=== PATIENT | female | born 1970 | race Caucasian/White ===

== ENCOUNTER 2019-11-23 08:32 | Inpatient (IN) | payer OTHER, MEDICAID, SELFPAY ==
[2019-11-23] VITALS (27 sets, daily range): BP systolic 126–169; BP diastolic 58–90; PULSE 72–84; RESP 11–23; TEMP 36.6–37.2; O2SAT 99–100
--- NOTE | ~2019-11-23 | XR_ITS ---
EXAMINATION: XR chest 2V EXAM DATE: 11/23/2019 08:56 INDICATION: Sternotomy. TECHNIQUE: Frontal and lateral projections of the chest obtained and reviewed. Comparison is made to prior examination from 02/06/2019. FINDINGS: Sternotomy wires are present without findings to suggest sternal dehiscence. Cardiomediast inal silhouette is normal. Aortic valve replacement. There is a dual lead pacemaker/AICD seen with le ads projecting over the expected locations of the right atrial appendage and right ventricle. There is left basilar predominant reticulonodular airspace disease suspected, appearance most consist ent with bronchopneumonia but please clinically correlate. This was not present on chest x-ray from . Possible small left pleural effusion. No pneumothorax. There is moderate thoracolumbar scol iosis again noted. Bilateral breast implants. IMPRESSION: 1. Multifocal left basilar reticulonodular airspace disease, suspicious for bronchopneumonia, could be acute or chronic process. Please clinically correlate. 2. Possible small pleural effusion. Reviewed, dictated and finalized at location A. CUTTER IMPRESSION: 1. Multifocal left basilar reticulonodular airspace disease, suspicious for br onchopneumonia, could be acute or chronic process. Please clinically correlate. 2. Possible small pleural effusion.
--- NOTE | ~2019-11-23 | US_ITS ---
EXAMINATION: US venous doppler LE EXAM DATE: 11/23/2019 15:40 INDICATION: Shortness of breath. Pulmonary embolism. TECHNIQUE: Multiple grayscale, color flow and Doppler images of the lower extremity deep venous syste ms bilaterally were obtained and reviewed. Comparison is made to prior examination from 03/20/2015. FINDINGS: Right side: The right common femoral, femoral and profunda veins demonstrate normal color flow, respi ratory variation, augmentation and compressibility. Compressibility, color flow confirmed within the right popliteal, posterior tibial, peroneal, and greater saphenous veins. Left side: The left common femoral, femoral and profunda veins demonstrate normal color flow, respira tory variation, augmentation and compressibility. Compressibility, color flow confirmed within the l eft popliteal, posterior tibial, peroneal, and greater saphenous veins. IMPRESSION: 1. No lower extremity deep venous thrombosis bilaterally. Reviewed, dictated and finalized at location A. RATION PLANT MECHANIC
--- NOTE | ~2019-11-23 | NM_ITS ---
EXAMINATION: NM lung vent and perfusion EXAM DATE: 11/23/2019 13:55 INDICATION: Dyspnea. Chest pain. TECHNIQUE: Frontal and lateral projections of the chest obtained and reviewed. Correlation was made w ith chest x-ray same date. FINDINGS: There is decreased left lung uptake on the ventilation scan and decreased left lung activi ty on perfusion scan at the lung base. Moderate amount of left basilar airspace disease on chest x-ra y obtained today. Triple match, intermediate probability pulmonary embolism. There is homogeneous rig ht lung ventilation and perfusion, no defects. IMPRESSION: Intermediate probability pulmonary embolism. Reviewed, dictated and finalized at location A. CLOSER
--- NOTE | ~2019-11-23 | XR_ITS ---
EXAMINATION: XR chest 2V DATE: 11/26/2019 08:20 INDICATION: Congestive heart failure. Weakness. TECHNIQUE: Frontal and lateral views of the chest were obtained. COMPARISON: Chest 2 views 11/23/2019, CT abdomen and pelvis 12/12/2018 FINDINGS: There are airspace opacities at left lung base. There is a diffuse interstitial pattern, co nsistent with mild pulmonary edema. No pleural effusion or pneumothorax. The heart size is normal. Th ere are changes of aortic valve replacement and coronary artery bypass grafting. There are surgical c lips in the neck. There is a right chest wall pacer with leads in the right atrium and right ventricl e. IMPRESSION: 1. Stable airspace opacities at left lung base, consistent with atelectasis versus pneumonia. 2. Mild pulmonary edema. Reviewed, dictated and finalized at location A. UCT MARKETING ENGINEER IMPRESSION: 1. Stable airspace opacities at left lung base, consistent with atelectasis simon norma pneumonia. 2. Mild pulmonary edema.
--- NOTE | 2019-11-23 08:47 | ECG_ITS ---
Measurements Intervals [place] Rate: 79 P: -17 MD: 104 QRS: 5 QRSD: 94 T: 126 QT: 412 QTc: 474 Interpretive Statements SINUS RHYTHM WITH SHORT MD INTERVAL ST-T WAVE ABNORMALITY IN LATERAL LEADS- CONSIDER ISCHEMIA ABNORMAL ECG Electronically Signed On 11-23-2019 16:54:11 FINAL INSPECTOR AND TESTER by Rafael Calzada D.O.
[2019-11-23 08:58] LABS: Basophils Percent Auto 0.5 % (0.2-1.2); Eosinophils Absolute Auto 0.1 K/mm3 (0-0.3); Eosinophils Percent Auto 1.4 % (0-4.4); Hematocrit 38.9 % (37.0-47.0); Hemoglobin 12.3 g/dL (12.0-15.0); Immature Granulocyte Absolute 0.02 K/mm3 (0.00-0.031); Immature Granulocyte Percent A 0.3 % (0-0.5); Lymphocytes Absolute Auto 0.72 K/mm3 (0.9-3.2); Lymphocytes Percent Auto 11.3 % (18.3-44.2); Mean Corpuscular HGB Conc 31.6 g/dl (32-36); Mean Corpuscular Hemoglobin 28.1 pg (26-34); Mean Platelet Volume 11.5 fl (7.4-10.4); Monocytes Absolute Auto 0.3 K/mm3 (0.1-0.6); Monocytes Percent Auto 4.1 % (2.6-8.5); Neutrophils Absolute Auto 5.2 K/mm3 (1.3-6.7); Neutrophils Percent Auto 82.4 % (45.5-73.1); Platelet Count Result 153 k/mm3 (150-375); Red Blood Count 4.37 M/mm3 (4.2-5.4); Red Cell Distribution Width 15.4 % (11.5-14.5); White Blood Count 6.4 K/mm3 (4.5-10.0)
--- NOTE | 2019-11-23 09:18 | ED.SOB ---
HPI - SOB/Dyspnea General Chief Complaint: Shortness of Breath/Dyspnea Stated Complaint: sob Time Seen by Provider: 11/23/19 09:17 Source: patient Mode of arrival: ambulatory Limitations: no limitations History of Present Illness HPI Narrative: A 49 y/o female pt presents to the ED, with c/o SOB since yesterday that is worsening. Pt states she arrived at work this morning and began feeling more SOB and notes feeling dizzy and nauseous. Pt notes a new onset of pain in the middle of her back and in her collar bone, and in her shoulder when taking a deep breath, but denies any new onset of CP. Pt denies fever, chills, sweats, sore throat, V/D, or swelling in lower extremities. Pt has a Hx of a chronic cough, but denies any new onset or worsening. She denies any recent illnesses. Pt reports using her inhaler this morning with no relief. She has a PSHx of a CABG (2 vessels), aortic valve replacement, thyroidectomy, and pacemaker placement all within the last year. 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 She notes that the only prescriptions she currently takes are her bronchodilator and a thyroid supplement. MD elicited complaint: shortness of breath Pertinent past history: asthma and congestive heart failure Onset (ago): day(s) (1) Timing: progressively worsening Known history of: asthma and congestive heart failure Associated symptoms: pain with inspiration (rt shoulder), dizziness and other (nausea, pain in upper middle back and collar bone) Treatment prior to arrival: bronchodilator Related Data Home Medications Medication Instructions Recorded Confirmed albuterol sulfate [Ventolin HFA] 2 puff INHALATION QID PRN 08/27/19 08/27/19 aspirin 81 mg PO DAILY 08/27/19 08/27/19 atorvastatin 40 mg PO HS 08/27/19 08/27/19 calcitriol 0.5 mcg PO DAILY 08/27/19 08/27/19 furosemide 40 mg PO DAILY 08/27/19 08/27/19 potassium chloride 30 meq PO DAILY 08/27/19 08/27/19 amlodipine 11/23/19 Allergies Allergy/AdvReac Type Severity Reaction Status Date / Time amoxicillin Allergy Unknown Difficulty Verified 11/23/19 09:20 Breathing bass Allergy Unknown Swelling Verified 11/23/19 09:20 ciprofloxacin Allergy Unknown Fever Verified 11/23/19 09:20 clarithromycin Allergy Unknown WAS CHILD Verified 11/23/19 09:20 UNKNOWN REACTION egg Allergy Unknown STOPPED Verified 11/23/19 09:20 BREATHING Macrolide Antibiotics Allergy Unknown NO IDEA Verified 11/23/19 09:20 Penicillins Allergy Unknown Stopped Verified 11/23/19 09:20 Breathing Nut Tree Allergy Unknown Vomiting Uncoded 11/23/19 09:20 Review of Systems Review of Systems: All systems reviewed & are unremarkable except as noted in HPI and below Constitutional: Constitutional: Denies chills, Denies excessive sweating and Denies fever(s) ENT: Denies sore throat Cardiovascular: Cardiovascular: Denies chest pain and Denies leg edema Respiratory: Respiratory: Reports cough (chronic and unchanged), Reports pain on inspiration (rt shoulder) and Reports dyspnea Gastrointestinal: Gastrointestinal: Denies diarrhea, Reports nausea and Denies vomiting Musculoskeletal: Musculoskeletal: Reports other (Pain in upper, middle back and collar bone) Neurologic: Reports dizziness PMFSH Past Medical History Medical History (Updated 11/23/19 @ 16:32 by Candice Hung MD) Aortic stenosis Asthma CHF (congestive heart failure) Kidney disease Neuroblastoma Pacemaker Surgical History Surgical History (Updated 11/23/19 @ 11:38 by GUY Villegas) History of aortic valve replacement History of section History of hysterectomy History of thyroidectomy History of two vessel coronary artery bypass graft Family History Family History (Updated 09/04/18 @ 09:12 by DOCTOR UNKNOWN) Father Hypertension Family
[2019-11-23 10:20] LABS: INR 1.1; Prothrombin Time 13.8 Seconds (11.1-14.7)
[2019-11-23 10:21] LABS: Partial Thromboplastin Time 29.5 SECONDS (22.3-36.8)
[2019-11-23 10:22] LABS: Blood Urea Nitrogen 40 mg/dL (7-17); Calcium 8.9 mg/dL (8.4-10.2); Carbon Dioxide 26 mmol/L (22-30); Chloride 99 mmol/L (98-107); Estimated CRCL calculation 18 ml/min; Estimated Glomerular Filt Rate 16; Glucose 77 mg/dL (65-105); Potassium 3.3 mmol/L (3.4-5.0); Sodium 137 mmol/L (137-145)
[2019-11-23 10:23] LABS: D Dimer 0.84 ug/mL (<0.48)
[2019-11-23 10:33] LABS: NT Pro B Type Natriuretic Pept 6320 PG/ML (5-100); Troponin I 0.017 ng/mL (0.000-0.034)
--- NOTE | 2019-11-23 12:52 | PC.NURSE ---
Lab enroute to collect 3 hour troponin due to patient being a hard stick.
--- NOTE | 2019-11-23 13:31 | PC.NURSE ---
Pt in nuclear med at present time.
[2019-11-23 13:42] LABS: Troponin I 0.017 ng/mL (0.000-0.034)
--- NOTE | 2019-11-23 14:44 | PC.NURSE ---
Lunch tray ordered for patient.
[2019-11-23] MEDS: ENOXAPARIN 80 MG/0.8 ML SYRINGE 59 MG SUB-Q (15:16)
[2019-11-23 16:55] LABS: Troponin I 0.019 ng/mL (0.000-0.034)
--- NOTE | 2019-11-23 17:26 | ADMGEN ---
This patient, Ginger Marshall, was admitted to 3 [facility] Surg Room 328-01. Patient/family oriented to hospital policies and general routines including ID bracelet, bed and alarms, visiting hours, pain management, procedures, bathroom and other care routines, personal items, smoking policy, room service/diet, and visiting hours. Valuables list has been completed. Information on how to activate the Rapid Response Team has been discussed. Patient/Family are encouraged to report perceived risks to care and to ask questions if they do not understand what they are told or what they should do.
--- NOTE | 2019-11-23 22:57 | ECG_ITS ---
Measurements Intervals [place] Rate: 79 P: -26 CA: 107 QRS: 9 QRSD: 94 T: 110 QT: 403 QTc: 462 Interpretive Statements SINUS RHYTHM WITH SHORT CA INTERVAL ST-T WAVE ABNORMALITY IN LATERAL LEADS- CONSIDER ISCHEMIA BASELINE ARTIFACT- I, II, III, AVR, AVL, AVF ABNORMAL ECG Electronically Signed On 11-24-2019 7:04:33 FAITH DOCTOR by Rafael Calzada D.O.
--- NOTE | 2019-11-23 23:06 | PM.IMHP ---
H&P: HPI History of Present Illness Chief complaint: Shortness of breath Narrative: This is a pleasant 49-year-old female with known past medical history of congestive heart failure, aortic valve replacement with a bovine valve which the patient states his leaky, asthma, and polycystic kidney disease who presented to the hospital with worsening exertional shortness of breath over the past 2 days. Associated symptoms include dizziness and nausea. Her shortness of breath is intermittent and comes and goes. She has also been experiencing pain in the middle of her back over the past few days which is not common for her. The patient denies any recent fever, chills, cough, congestion, sore throat, chest pain, abdominal pain, leg swelling, leg redness, or leg pain. She believe she may have had some wheezing this morning. The patient's last surgery was about 10 months ago when she had a pacemaker placed. She was evaluated emergency room and she underwent a V/Q scan which was intermediate probability for acute pulmonary embolism. The patient was anticoagulated with Lovenox. She has no other complaints. LE Doppler U/S did not demonstrate any DVT. Review of Systems Review of Systems: All systems reviewed & are unremarkable except as noted in HPI and below PMFSH Past Medical History Medical History Aortic stenosis Asthma CHF (congestive heart failure) Chronic kidney disease, stage 4 (severe) Kidney disease Neuroblastoma Pacemaker Surgical History Surgical History History of aortic valve replacement History of section History of hysterectomy History of thyroidectomy History of two vessel coronary artery bypass graft Family History Family History Father Hypertension Family history of coronary artery disease Mother Hypertension Cerebrovascular accident Family history of malignant neoplasm Family history of kidney disease Grandparent Family history of kidney disease Social History Social History Smoking status: Former smoker Second hand tobacco smoke exposure: Yes Smoking end date: 10/21/11 Alcohol intake: never Substance use: never Gender identity (if verbalized by the patient): Female Spiritual care concerns: No Agree to blood products: Yes Meds Home Medications and Allergies Home Medications Medication Instructions Recorded Confirmed Type albuterol sulfate [Ventolin HFA] 2 puff INHALATION QID PRN 08/27/19 11/23/19 History aspirin 81 mg PO HS 08/27/19 11/23/19 History atorvastatin [Lipitor] 40 mg PO HS 08/27/19 11/23/19 History calcitriol [Rocaltrol] 0.5 mcg PO EVERY OTHER DAY 08/27/19 11/23/19 History amlodipine 2.5 mg PO HS 11/23/19 11/23/19 History furosemide [Lasix] 80 mg PO DAILY 11/23/19 11/23/19 History levothyroxine [Synthroid] 150 mcg PO DAILY 11/23/19 11/23/19 History potassium chloride 20 meq PO BID 11/23/19 11/23/19 History Allergies Allergy/AdvReac Type Severity Reaction Status Date / Time amoxicillin Allergy Unknown Difficulty Verified 11/23/19 09:20 Breathing bass Allergy Unknown Swelling Verified 11/23/19 09:20 ciprofloxacin Allergy Unknown Fever Verified 11/23/19 09:20 clarithromycin Allergy Unknown WAS CHILD Verified 11/23/19 09:20 UNKNOWN REACTION egg Allergy Unknown STOPPED Verified 11/23/19 09:20 BREATHING Macrolide Antibiotics Allergy Unknown NO IDEA Verified 11/23/19 09:20 Penicillins Allergy Unknown Stopped Verified 11/23/19 09:20 Breathing Nut Tree Allergy Unknown Vomiting Uncoded 11/23/19 09:20 Vital Signs Vital Signs - 24 hr 11/23/19 08:40 11/23/19 08:48 11/23/19 09:15 Temperature 36.6 C Pulse Rate 80 81 79 Respiratory Rate 17 17 Blood Pressure 169/69 H 142/68 H Pulse Oximetry 100 11/23/19 09
[2019-11-24] VITALS (9 sets, daily range): BP systolic 126–146; BP diastolic 52–70; PULSE 76–84; RESP 16; TEMP 36.4–36.7; O2SAT 97–100
[2019-11-24] MEDS: POTASSIUM CHLORIDE 20 MEQ TABLET 40 MEQ PO (00:30)
[2019-11-24] MEDS: LEVOTHYROXINE SODIUM 150 MCG TABLET PO (05:38)
--- NOTE | 2019-11-24 06:00 | ECHO_ITS ---
Patient Info Name: Ginger Marshall Age: 49 years : 1970 Gender: Female Ht: 64 in Wt: 130 lbs BSA: 1.64 m2 HR: 75 bpm BP: 126 / 52 mmHg Heart Rhythm: Sinus Rhythm Technical Quality: Good Exam Date: 11/24/2019 11:29 AM Exam Location: [facility] Card Pulmonary Patient Status: Inpatient Admit Date: 11/23/2019 Staff Ordering Physician: Candice Hung MD Saw Edge Fuser Circular: Brad Meng RDCS Attending Provider: Ramin Hart MD Referring Physician: Abhilash TALBOT; Exam Type: CA echo dop color flow w con Study Info Indications R06.02 - Shortness of breath Complete two-dimensional, color flow and Doppler transthoracic echocardiogram is performed with contrast to opacify the left ventrical and to improve the deliniation of the left ventrical endocarial boarders. Contrast/Agitated Saline Contrast/Ag. Saline: Definity Amount: 2.00 ml Administered By: Yanet Stanley RN History/Risk Factors SOB; BioAVR and 2vCABG 01/2019, CHF, CKD IV. Summary 1. Left ventricular chamber dimension is mildly enlarged. 2. Left ventricular systolic function is normal, estimated at 60-65%. 3. The mid inferolateral wall is hypokinetic. 4. There is no increased left ventricular wall thickness. 5. Left ventricular septal wall motion is normal. 6. D shaped septum in diastole consistent with RV volume overload. 7. Left atrial chamber dimension is mildly enlarged. 8. There is moderate to severe regurgitation of the bioprosthetic aortic valve. 9. Significant bioprosthetic aortic regurgitation is noted. It is perivalvular and occurs at various locations around the sewing ring. Especially prominent at the 12 through the 3 o'clock position as well as 7 to 9 o'clock position. 10. There is mild to moderate mitral valve regurgitation. 11. There is mild tricuspid valve regurgitation. 12. Moderate pulmonary hypertension, estimated pulmonary arterial systolic pressure is 48 mmHg. 13. There is mild pulmonic regurgitation. 14. Pleural effusion is noted. Also cannot completely exclude a VSD near the LVOT or sewing ring. Left Ventricle Left ventricular chamber dimension is mildly enlarged. Left ventricular systolic function is normal, estimated at 60-65%. There is no increased left ventricular wall thickness. Left ventricular septal wall motion is normal. The left ventricular diastolic function is normal. The mid inferolateral wall is hypokinetic. All other madrigal appear normal. Right Ventricle Right ventricular chamber dimension is normal. Right ventricular systolic function is normal. D shaped septum in diastole consistent with RV volume overload. Left Atria Left atrial chamber dimension is mildly enlarged. Right Atria Right atrial chamber dimension is normal. Aortic Valve The bioprosthetic aortic valve is trileaflet. There is no sclerosis of the bioprosthetic aortic valve leaflets. There is no bioprosthetic aortic valve stenosis. There is moderate to severe regurgitation of the bioprosthetic aortic valve. Significant bioprosthetic aortic regurgitation is noted. It is perivalvular and occurs at various locations around the sewing ring. Especially prominent at the 12 through the 3 o'clock position as well as 7 to 9 o'clock position. Pulmonic Valve The pulmonic valve is normal. There is no pulmonic valve stenosis. There is mild pulmonic regurgitation. Mitral Valve The mitral valve has normal leaflets. There is no mitral valve
[2019-11-24 06:22] LABS: Basophils Percent Auto 0.3 % (0.2-1.2); Eosinophils Absolute Auto 0.1 K/mm3 (0-0.3); Eosinophils Percent Auto 1.8 % (0-4.4); Hematocrit 35.3 % (37.0-47.0); Immature Granulocyte Absolute 0.02 K/mm3 (0.00-0.031); Immature Granulocyte Percent A 0.3 % (0-0.5); Lymphocytes Absolute Auto 0.95 K/mm3 (0.9-3.2); Lymphocytes Percent Auto 15.9 % (18.3-44.2); Mean Corpuscular HGB Conc 31.2 g/dl (32-36); Mean Corpuscular Volume 89.8 fl (80-100); Mean Platelet Volume 11.2 fl (7.4-10.4); Monocytes Absolute Auto 0.3 K/mm3 (0.1-0.6); Monocytes Percent Auto 4.8 % (2.6-8.5); Neutrophils Absolute Auto 4.6 K/mm3 (1.3-6.7); Neutrophils Percent Auto 76.9 % (45.5-73.1); Platelet Count Result 108 k/mm3 (150-375); Red Blood Count 3.93 M/mm3 (4.2-5.4); Red Cell Distribution Width 15.5 % (11.5-14.5)
[2019-11-24 06:29] LABS: Blood Urea Nitrogen 38 mg/dL (7-17); Calcium 8.5 mg/dL (8.4-10.2); Carbon Dioxide 26 mmol/L (22-30); Chloride 104 mmol/L (98-107); Estimated CRCL calculation 19 ml/min; Estimated Glomerular Filt Rate 17; Glucose 85 mg/dL (65-105); Magnesium 2.2 mg/dL (1.6-2.3); Potassium 3.7 mmol/L (3.4-5.0); Sodium 140 mmol/L (137-145)
[2019-11-24] MEDS: FUROSEMIDE 80 MG TABLET PO (08:08)
[2019-11-24] MEDS: calcitrioL 0.25 MCG CAPSULE 0.5 MCG PO (08:08)
[2019-11-24] MEDS: PERFLUTREN LIPID MICROSPHERES 1.5 ML VIAL DILUTED TO 10 ML TOTAL VOLUME (12:12)
[2019-11-24] MEDS: ENOXAPARIN 60 MG/0.6 ML SYRINGE SUB-Q (14:46)
--- NOTE | 2019-11-24 14:54 | PM.IMPN ---
Progress Note: A&P Assessment and Plan (1) Shortness of breath: Code(s): R06.02 - Shortness of breath Status: Acute Assessment and Plan: Patient has multiple reasons to have shortness of breath. She has scarring related to radiation treatment her cancer according to the welder/installer. Patient also has pulmonary hypertension are by echocardiogram as well as the severe aortic insufficiency. Echocardiogram also shows RV overload to suggest a component of CHF explaining some of her dyspnea. V/Q scan is intermediate probability with negative lower extremity Doppler. Currently on Lovenox although I feel the likelihood of VTE he is less likely. Her PE Clinical Probability score is zero giving her a 4% chance of PE. Will change to prophylactic Lovenox. Lasix 40 mg IV once. Monitor renal function closely. Will continue her hospitalization here but of her clinical condition deteriorates, consider cardiology consult and/or transfer to [place]. Pneumonia seems less likely as well. (2) Hypokalemia: Code(s): E87.6 - Hypokalemia Status: Acute Assessment and Plan: Potassium 3.7 today. Continue to monitor. (3) Chronic kidney disease, stage 4 (severe): Code(s): N18.4 - Chronic kidney disease, stage 4 (severe) Status: Chronic Assessment and Plan: Hx of PCKD. Creatinine 2.9. Monitor closely on IV diuretics. (4) CHF (congestive heart failure): Qualifiers: Heart failure chronicity: chronic Heart failure type: unspecified Qualified Code(s): I50.9 - Heart failure, unspecified Code(s): I50.9 - Heart failure, unspecified Status: Chronic Assessment and Plan: Suspect acute CHF exacerbation as etiology coupled with her other chronic issues. Will proceed with periodic IV Lasix and monitor renal function closely. Subjective Date/time seen: 11/24/19 14:54 Interval history: 49yo female with hx of severe aortic valve disease here for increasing SOB. Assuming care. Chart reviewed. Patient had aortic valve surgery in January of last year. Discussed with her welder/installer by phone. He stated the valve could not be replaced and a TAVR valve was placed instead. This was poorly fitting postoperatively. He says the patient has severe aortic insufficiency chronically. He also states that there are no further interventions that could be performed on this patient. Patient also had a pacemaker placed in April for syncope. Details are unclear. Patient normally takes 80 mg of Lasix in the morning and 40 mg in the afternoon. About 4 weeks ago, she had decreased the Lasix to just 80 mg in the morning. She has gained 16 lb since June although she is unclear on how much weight she has gained over the past month. She saw her welder/installer 2 weeks ago and he stated that the patient looked good and did not appear to be fluid overloaded. Patient has been chronically short of breath but over the past 3 days it has worsened. She was more active during this time. With putting boxes away for example. She is not on a long car rides or plane rides. No family history of VTE. She did develop nausea and cold sweats but no fevers. Currently she still feels short of breath without change Exam Narrative: Exam Narrative: Gen - NARD lying semi recumbent in bed HEENT - NC/AT, mmm Neck - supple, elevation of the JVP noted Chest - few minor bibasilar inspiratory crackles, nml RR, no conversational dyspnea. Obvious chest wall deformity. CV - RRR S1/S2 with 3/6 S/D murmur loudest at the sternal borders Abd - soft, NT/ND, +BS Ext - No pedal edema Psych - Nml mood and affect Skin - Warm and dry Objective Data Vital Signs Vital Signs: Vital Signs - 24 hr 11/23/19 22:00 11/24/19 00:00 11/24/19 04:00 Temperature 98.9 F Pulse Rate 84 79 76 Respiratory Rate 18 Blood Pressure 139/58 L Pulse Oximetry 100 11/24/19 06:00 11/24/19 08:00 11/24/19 12:00 Temperature 98
[2019-11-24] MEDS: FUROSEMIDE INJ 40 MG/4 ML VIAL IV PUSH (18:36)
[2019-11-24] MEDS: AMLODIPINE BESYLATE 2.5 MG TABLET PO (21:04)
[2019-11-24] MEDS: ASPIRIN 81 MG ENTERIC TABLET PO (21:04)
[2019-11-24] MEDS: ATORVASTATIN 40 MG TABLET PO (21:04)
[2019-11-25] VITALS (11 sets, daily range): BP systolic 112–163; BP diastolic 52–68; PULSE 73–94; RESP 16–20; TEMP 36.4–36.8; O2SAT 99–100
[2019-11-25 06:32] LABS: Hematocrit 33.5 % (37.0-47.0); Hemoglobin 10.7 g/dL (12.0-15.0); Mean Corpuscular HGB Conc 31.9 g/dl (32-36); Mean Corpuscular Hemoglobin 28.3 pg (26-34); Mean Corpuscular Volume 88.6 fl (80-100); Mean Platelet Volume 11.7 fl (7.4-10.4); Platelet Count Result 115 k/mm3 (150-375); Red Blood Count 3.78 M/mm3 (4.2-5.4); Red Cell Distribution Width 15.4 % (11.5-14.5); White Blood Count 6.1 K/mm3 (4.5-10.0)
[2019-11-25] MEDS: LEVOTHYROXINE SODIUM 150 MCG TABLET PO (06:35)
[2019-11-25 07:00] LABS: Albumin Level 3.5 g/dL (3.5-5.1); Blood Urea Nitrogen 34 mg/dL (7-17); Calcium 8.4 mg/dL (8.4-10.2); Carbon Dioxide 27 mmol/L (22-30); Chloride 99 mmol/L (98-107); Estimated CRCL calculation 18 ml/min; Estimated Glomerular Filt Rate 17; Glucose 91 mg/dL (65-105); Magnesium 1.9 mg/dL (1.6-2.3); Phosphorus 4.1 mg/dL (2.5-4.5); Potassium 3.1 mmol/L (3.4-5.0); Sodium 136 mmol/L (137-145)
[2019-11-25] MEDS: FUROSEMIDE 80 MG TABLET PO (09:13)
[2019-11-25] MEDS: POTASSIUM CHLORIDE 20 MEQ TABLET 40 MEQ PO (09:13)
--- NOTE | 2019-11-25 13:39 | PM.IMPN ---
Progress Note: A&P Assessment and Plan (1) Shortness of breath: Code(s): R06.02 - Shortness of breath Status: Acute Assessment and Plan: Patient has multiple reasons to have shortness of breath. She has scarring related to radiation treatment from her cancer treatment (according to her registered associate). Patient also has pulmonary hypertension noted by echocardiogram as well as the severe aortic insufficiency. Echo also shows RV overload to suggest a component of CHF explaining some of her dyspnea. V/Q scan is intermediate probability with negative lower extremity Doppler. Her PE Clinical Probability score is zero giving her a 4% chance of PE. She is currently on prophylactic Lovenox. Lasix 40 mg IV given once yesterday with some symptom improvement. Will repeat Lasix once. Will consult pulmonary. Cr slightly worse but BUN better. Continure to monitor renal function closely. Will continue her hospitalization here but of her clinical condition deteriorates, consider cardiology consult and/or transfer to [place]. Pneumonia seems less likely as well. (2) Hypokalemia: Code(s): E87.6 - Hypokalemia Status: Acute Assessment and Plan: Potassium 3.1 today. Replace. Continue to monitor. (3) Chronic kidney disease, stage 4 (severe): Code(s): N18.4 - Chronic kidney disease, stage 4 (severe) Status: Chronic Assessment and Plan: Hx of PCKD. Cr 3.1 on admission and roughly unchanged. Continue to monitor closely with the additional Lasix. on. Avoid nephrotoxic agents. renally dose medications. (4) CHF (congestive heart failure): Qualifiers: Heart failure chronicity: chronic Heart failure type: unspecified Qualified Code(s): I50.9 - Heart failure, unspecified Code(s): I50.9 - Heart failure, unspecified Status: Chronic Assessment and Plan: Suspect acute CHF exacerbation as etiology coupled with her other chronic issues. CHF related to the severe valvular disease. Will repeat IV Lasix and monitor renal function closely. Subjective Date/time seen: 11/25/19 13:39 Interval history: 49yo female with hx of severe aortic valve disease here for increasing SOB. Patietn still with the pleurtic back pain that affects her right shoulder as well. SOB better. Feels she can take a dep breath better. Cough productive of whitish sputum. Good UOP with the Lasix. Requesting discharge. Exam Narrative: Exam Narrative: Gen - NARD lying semi recumbent in bed Chest - CTA bilaterally. nml RR CV - RRR S1/S2 with 3/6 diastolic murmur loudest USB Abd - soft, NT/ND, +BS Ext - No pedal edema Psych - Nml mood and affect Skin - Warm and dry Objective Data Vital Signs Vital Signs: Vital Signs - 24 hr 11/24/19 14:00 11/24/19 16:00 11/24/19 20:00 Temperature 97.5 F L Pulse Rate 81 84 83 Respiratory Rate 16 Blood Pressure 146/70 H Pulse Oximetry 100 11/24/19 22:00 11/25/19 00:00 11/25/19 04:00 Temperature 98.0 F Pulse Rate 84 81 81 Respiratory Rate 16 Blood Pressure 137/67 Pulse Oximetry 97 11/25/19 06:00 11/25/19 08:00 11/25/19 12:00 Temperature 98.0 F Pulse Rate 74 73 93 Respiratory Rate 18 Blood Pressure 112/52 L Pulse Oximetry 99 Intake/Output Intake/Output: Intake & Output 11/22/19 11/23/19 11/24/19 11/25/19 23:59 23:59 23:59 23:59 Intake Total 0 2060 790 Output Total 0 1900 900 Balance 0 160 -110 Meds/Results Medications: Active Medications Generic Name Dose Route Start Last Admin Trade Name Freq PRN Reason Stop Dose Admin Acetaminophen 650 mg 11/23/19 23:12 Tylenol Tablet PO Q4H PRN Mild Pain (1-3) or Fever Albuterol 2.5 mg 11/23/19 23:12 Albuterol Sulf Neb 2.5mg/0.5ml INHALATION Q4HRT PRN Shortness Of Breath Amlodipine Besylate 2.5 mg 11/24/19 21:00 11/24/19 21:04 Norvasc PO 2.5 mg HS TRAV Administration Aspirin 81 mg 11/24/19
[2019-11-25] MEDS: ENOXAPARIN 30 MG/0.3 ML SYRINGE SUB-Q (14:04)
[2019-11-25] MEDS: FUROSEMIDE INJ 40 MG/4 ML VIAL IV PUSH (14:41)
--- NOTE | 2019-11-25 16:01 | PM.CNPUL ---
Assessment and Plan Assessment and plan (1) Asthma-COPD overlap syndrome: Code(s): J44.9 - Chronic obstructive pulmonary disease, unspecified Status: Acute Assessment and Plan: needs to be on treatment; currently is not on controller medications (2) Shortness of breath: Code(s): R06.02 - Shortness of breath Status: Acute Assessment and Plan: Severe on admission, better now with diuresis. (3) History of tobacco abuse: Code(s): Z87.891 - Personal history of nicotine dependence Status: Acute Assessment and Plan: stopped several years ago after 25 years of smoking (4) Restrictive lung disease: Code(s): J98.4 - Other disorders of lung Status: Acute Assessment and Plan: due to thoracic scoliosis; prior chest surgery for neuroblastoma age 3 with radiation to chest (5) CHF (congestive heart failure): Qualifiers: Heart failure chronicity: chronic Heart failure type: unspecified Qualified Code(s): I50.9 - Heart failure, unspecified Code(s): I50.9 - Heart failure, unspecified Status: Chronic Assessment and Plan: due to AI (6) Pulmonary hypertension: Code(s): I27.20 - Pulmonary hypertension, unspecified Status: Acute Assessment and Plan: long standing due to CHF, asthma/COPD; no recent echo in our system; all her studies have been at [place]; Additional Plan 1. I do not think that she has a PE. She feels better with diuresis, feels less tight; her right post thorax pleuritic discomfort is better, she has no O2 deficit, has stable Na+, BNP is 6300 not bad with AI and CHF; her echo results are not current; her studies have been at [place]. If she really had a PE, she would be more acutely ill and require supplemental O2. Overall is stable from oxygenation standpoint. 2. She has untreated asthma/COPD, uses a rescue inhaler at home which helps, not on controller therapy currently. Has nasal drainage, h/o tobacco none x 2011; may feel better on controller therapy. Peak flow measurements, add Symbicort, PFTs at some point; her values will be lower than normal because of the restrictive condition of her chest wall from prior surgery. She may benefit from Singulair. History of Present Illness History of Present Illness Consult date: 11/26/19 Chief complaint: Shortness of breath Narrative: NEW CONSULT: Dr. Dewey consulted me to see this patient for shortness of breath and possible PE. She is 49 yo with severe AI developing after repair of severe aortic stenosis with attempted AVR that was complicated, January 2019 and ppm April 2019; has had AI since with CHF. She has pulmonary hypertension. Age 3 chest radiation years due to neuroblastoma between heart and lungs, hasresidual fibrosis in the thoracic cavity. She has a chest wall deformity due to the surgery with a smaller left thorax, splayed right scapula, restrictive impairment wit hloss of chest wall excursion. She has chronic kidney disease due to PCKD. She has pleuritic chest pain in the right post chest, better after getting more diuretic. She has had life long asthma, diagnsoed with COPD in 2011, has been on Advair which helped'; she uses a rescue inhaler on occasion, current inhaler is 6 months old, has used some other inhalers but with state insurance her choices were limited. She thinks she might have been on Singulair in the past. has significant nasal drainage. She recently decreased her Lasix, stopped her 40 mg a day a month ago, continued to take the 80 mg Lasix dose; started becoming more short of breath, and this has improved with restarting her Lasix Slightly (+) D-dimer--> VQ scan that is not negative Intermediate probability pulmonary embolism on 11/23/2019; BNP 6300. Review of Systems Review of Systems: All systems reviewed & are unremarkable except as noted in HPI and below (HPI) [facility] Past Medical History Medical History (Updated 11/25/19 @ 19:49 by Lukasz
[2019-11-25] MEDS: ASPIRIN 81 MG ENTERIC TABLET PO (20:39)
[2019-11-25] MEDS: AMLODIPINE BESYLATE 2.5 MG TABLET PO (20:39)
[2019-11-25] MEDS: ATORVASTATIN 40 MG TABLET PO (20:39)
[2019-11-25] MEDS: LEVALBUTEROL NEB 1.25 MG/3 ML 0.63 MG INHALATION (21:52)
[2019-11-26] VITALS (7 sets, daily range): BP systolic 113–140; BP diastolic 55–68; PULSE 80–92; RESP 16–18; TEMP 36.6; O2SAT 98–100
[2019-11-26] MEDS: LEVOTHYROXINE SODIUM 150 MCG TABLET PO (05:28)
[2019-11-26 06:48] LABS: Hematocrit 34.5 % (37.0-47.0); Mean Corpuscular HGB Conc 31.9 g/dl (32-36); Mean Corpuscular Hemoglobin 28.1 pg (26-34); Mean Corpuscular Volume 88.2 fl (80-100); Mean Platelet Volume 11.2 fl (7.4-10.4); Platelet Count Result 115 k/mm3 (150-375); Red Blood Count 3.91 M/mm3 (4.2-5.4); Red Cell Distribution Width 15.5 % (11.5-14.5); White Blood Count 6.1 K/mm3 (4.5-10.0)
[2019-11-26 06:58] LABS: Alanine Aminotransferase 22 U/L (4-35); Albumin Level 3.8 g/dL (3.5-5.1); Alkaline Phosphatase 70 U/L (38-126); Aspartate Amino Transferase 22 U/L (14-36); Bilirubin,Total 0.5 mg/dL (0.2-1.3); Blood Urea Nitrogen 33 mg/dL (7-17); Calcium 8.5 mg/dL (8.4-10.2); Carbon Dioxide 29 mmol/L (22-30); Chloride 99 mmol/L (98-107); Estimated CRCL calculation 17 ml/min; Estimated Glomerular Filt Rate 15; Glucose 95 mg/dL (65-105); Magnesium 1.9 mg/dL (1.6-2.3); Potassium 3.4 mmol/L (3.4-5.0); Sodium 140 mmol/L (137-145)
[2019-11-26] MEDS: FUROSEMIDE 80 MG TABLET PO (08:26)
[2019-11-26] MEDS: POTASSIUM CHLORIDE 20 MEQ TABLET 40 MEQ PO (08:26)
[2019-11-26] MEDS: calcitrioL 0.25 MCG CAPSULE 0.5 MCG PO (08:26)
[2019-11-26] MEDS: ENOXAPARIN 30 MG/0.3 ML SYRINGE SUB-Q (14:23)
--- NOTE | 2019-11-26 14:51 | PM.DS ---
DS: Diagnosis Admitting Diagnosis Admitting Diagnosis: Heart failure, unspecified Discharge Diagnosis (1) Shortness of breath: Code(s): R06.02 - Shortness of breath Status: Acute Assessment and Plan: Patient has multiple reasons to have shortness of breath. CXR showing left basilar airspace disease felt to be scarring. BNP 6300. Troponin negative x3. She has known scarring related to radiation treatment and probably restrictive lung disease. Patient also has pulmonary hypertension noted by echo as well as the severe aortic insufficiency. Echo also shows RV overload. D-dimer slightly positive at 0.8 and V/Q scan is intermediate probability with negative lower extremity venous Doppler. Her PE Clinical Probability score is zero giving her a 4% chance of PE. She is currently on prophylactic Lovenox. Lasix 40 mg IV given intermittently with some improvement in her symptoms. Appreciate Pulmonary input. Symbicort and Xopenex added. Patient states she had improvement with the nebulizer treatment. Repeat CXR showing stable airspace disease at left lower lobe and mild pulmonary edema. Patient has been up walking in the halls with some dyspnea on exertion. She states her shortness of breath is better overall. She feels ready for discharge. Discussed the benefits of close monitoring of fluid status with daily morning weights. (2) Hypokalemia: Code(s): E87.6 - Hypokalemia Status: Acute Assessment and Plan: Potassium low at times requiring replacement. (3) Chronic kidney disease, stage 4 (severe): Code(s): N18.4 - Chronic kidney disease, stage 4 (severe) Status: Chronic Assessment and Plan: Hx of PCKD. Creatinine 3.1 on admission. Cr dropped to 2.9 before climbing to 3.3 after a few doses of Lasix. Continue to monitor as outpatient. (4) CHF (congestive heart failure): Qualifiers: Heart failure type: unspecified Heart failure chronicity: chronic Qualified Code(s): I50.9 - Heart failure, unspecified Code(s): I50.9 - Heart failure, unspecified Status: Chronic Assessment and Plan: Suspect acute diastolic CHF exacerbation as etiology coupled with her other chronic issues as detailed above. As above (5) Asthma-COPD overlap syndrome: Code(s): J44.9 - Chronic obstructive pulmonary disease, unspecified Status: Acute (6) History of tobacco abuse: Code(s): Z87.891 - Personal history of nicotine dependence Status: Acute (7) Restrictive lung disease: Code(s): J98.4 - Other disorders of lung Status: Acute (8) Pulmonary hypertension: Code(s): I27.20 - Pulmonary hypertension, unspecified Status: Acute DS: Summary Hospital Course Reason for hospitalization: 49yo female here for increasing SOB. Please see H&P for details. Hospital Course: As above Status at Discharge Functional status at discharge: independent ambulation Overall status at discharge: patient is back to baseline Time Spent with Patient Time attestation: Total time spent providing and/or coordinating discharge services: 35 minutes Exam Narrative: Exam Narrative: Gen - NARD lying semi recumbent in bed Chest - few left base rhonchi o/w clear CV - RRR S1/S2 Abd - soft, NT/ND, +BS Ext - No pedal edema Psych - Nml mood and affect Skin - Warm and dry DS: Data Data Completed and Pending Labs on day of discharge: Labs from last 24 hours 11/26/19 11/26/19 06:41 06:41 WBC 6.1 RBC 3.91 L Hgb 11.0 L Hct 34.5 L MCV 88.2 MCH 28.1 MCHC 31.9 L RDW 15.5 H Plt Count 115 L MPV 11.2 H Sodium 140 Potassium 3.4 Chloride 99 Carbon Dioxide 29 BUN 33 H Creatinine 3.30 H Estim Creat Clear Calc 17 Estimated GFR 15 L Glucose 95 Calcium 8.5 Magnesium 1.9 Total Bilirubin 0.5 AST 22 ALT 22 Alkaline Phosphatase 70 Total Protein 7.0 Albumin 3.8 Discharge Nicholas
--- NOTE | 2019-11-30 11:55 | PCRCNOTE ---
COPD Post Discharge Phone Call Questions: Week 1 Unable to contact patient. No Answer 1. How are you feeling today? 2. Have you had any follow-up appointments since your discharge? Yes/No a. Were you able to attend all appointments? Yes/No b. Do you have any upcoming appointments? Yes/No c. If referred to pulmonary rehab, is it going well? Yes/No 3. Have you had success with smoking cessation? Yes/No a. If you signed a smoking cessation contract, have you been contacted by anyone to assist you? Yes/No 4. Did you go home with any new respiratory medications? Yes/No a. What medications were they? b. Were the possible side effects explained? Yes/No 5. Did you go home with new respiratory equipment (oxygen, CPAP, NIV, Bipap, vent, nebs? Yes/No a. Were you shown how to use them? Yes/No b. Are you comfortable using them? Yes/No c. If not, what issues are you having with the equipment? 6. Have you experienced an increase in any of the following since your discharge... a. Cough? Yes/No b. Mucus Production? Yes/No c. Shortness of Breath? Yes/No d. Tiredness and/or Lethargy? Yes/No 7. Have you had to go to an Urgent Care Center/Emergency Room since discharge? Yes/No 8. Did you discuss with patient how to handle medical emergencies? Yes/No Additional Comments:
== END 2019-11-26 16:20 | disposition home or self-care (01) | DRG 292 ==
LOC: ANHED 09:17 → ANH3MEDSUR 15:36
PROVIDERS: Family Medicine; Admitting Provider Family Medicine; Emergency Provider Emergency Medicine; PCP Internal Medicine; Visit Provider Internal Medicine
DX: I50.33 Acute on chronic diastolic (congestive) heart failure (principal); N18.4 Chronic kidney disease, stage 4 (severe); Q61.3 Polycystic kidney, unspecified; E87.6 Hypokalemia; J44.9 Chronic obstructive pulmonary disease, unspecified; J98.4 Other disorders of lung; I27.20 Pulmonary hypertension, unspecified; Z95.0 Presence of cardiac pacemaker; Z95.2 Presence of prosthetic heart valve; Z90.710 Acquired absence of both cervix and uterus; Z95.1 Presence of aortocoronary bypass graft; Z87.891 Personal history of nicotine dependence; Z85.848 Personal history of malignant neoplasm of other parts of nervous tissue
CPT/HCPCS: 36415; 71046; 78582; 80048; 80053; 80069; 83735; 83880; 84484; 85025; 85027; 85380; 85610; 85730; 87804; 93005; 93306; 93970; 94640; 96372; 96374; 96375; 99285; A9270; A9540; A9558; C8929; G0378; J1650; J1940; Q9957

== ENCOUNTER 2020-12-12 10:41 | Emergency (ER) | payer OTHER, MEDICAID, SELFPAY ==
[2020-12-12] VITALS (23 sets, daily range): BP systolic 123–154; BP diastolic 63–91; PULSE 60–72; RESP 14–27; TEMP 36.4; O2SAT 94–100
--- NOTE | ~2020-12-12 | XR_ITS ---
EXAMINATION: XR chest 2V DATE: 12/12/2020 14:54 INDICATION: Lung nodule. Abnormal chest radiograph. TECHNIQUE: Frontal and lateral views of the chest were obtained with nipple markers. COMPARISON: Chest 2 views 12/12/2020 FINDINGS: The chest demonstrates clear lungs without pneumonia, pleural effusion, or pneumothorax. Th e heart size is normal. There are changes of aortic replacement and coronary artery bypass grafting. There is a right chest wall pacer with leads in the right atrium and right ventricle. There are surgi sonia clips in the neck. There is chronic anterior wedging of multiple midthoracic vertebral bodies. Bi lateral breast implants are noted. IMPRESSION: 1. No acute cardiopulmonary disease. 2. The nodule described on the prior radiograph correlates with a nipple. Reviewed, dictated and finalized at location A. ONNEL RESEARCH PSYCHOLOGIST
--- NOTE | ~2020-12-12 | XR_ITS ---
XR chest 2V DATE: 12/12/2020 11:04 INDICATION: Chest pain, right shoulder and back pain TECHNIQUE: PA and lateral views COMPARISON: November 26, 2019 PA and lateral views FINDINGS: Status post sternotomy and aortic valve replacement and coronary artery bypass graft surger y. Right-sided dual-lead pacemaker device with leads overlying right atrium and right ventricle. Heart size is normal. No pulmonary infiltrate or consolidation, pleural effusion or pulmonary vascular congestion or pneumo thorax is evident. Probable nipple shadow overlying the right lower lung; repeat PA view with nipple markers is recommen ded. Reverse S-shaped thoracolumbar scoliosis. Thoracic kyphosis. IMPRESSION: Probable nipple shadow overlying right lower lung; recommend repeat examination with nipp le markers Status post aortic valve replacement and coronary bypass graft surgery Right dual-lead pacemaker device No active cardiopulmonary disease Reviewed, dictated and finalized at location A. SUPERVISOR IMPRESSION: Probable nipple shadow overlying right lower lung; recommend repeat examination with nipple markers Status post aortic valve replacement and coronary bypass graft surgery Right dual-lead pacemaker device No active cardiopulmonary disease
--- NOTE | 2020-12-12 10:42 | ECG_ITS ---
Measurements Intervals [place] Rate: 72 P: 46 VT: 108 QRS: 15 QRSD: 95 T: 126 QT: 420 QTc: 460 Interpretive Statements SINUS RHYTHM WITH SHORT VT INTERVAL DELAYED PRECORDIAL R/S TRANSITION LEFT VENTRICULAR HYPERTROPHY AND ST-T CHANGE BASELINE ARTIFACT- II, III, AVF, V6 BORDERLINE ECG Electronically Signed On 12-12-2020 10:54:00 PROFESSIONAL SKATER by Rafael Calzada D.O.
[2020-12-12 11:01] LABS: Basophils Percent Auto 0.5 % (0.2-1.2); Eosinophils Absolute Auto 0.1 K/mm3 (0-0.3); Eosinophils Percent Auto 1.6 % (0-4.4); Hematocrit 42.7 % (37.0-47.0); Immature Granulocyte Absolute 0.02 K/mm3 (0.00-0.031); Immature Granulocyte Percent A 0.3 % (0-0.5); Immature Platelet Fraction Pct 3.9 % (0.9-11.2); Lymphocytes Absolute Auto 1.07 K/mm3 (0.9-3.2); Lymphocytes Percent Auto 17.6 % (18.3-44.2); Mean Corpuscular HGB Conc 32.8 g/dl (32-36); Mean Corpuscular Hemoglobin 28.1 pg (26-34); Mean Corpuscular Volume 85.6 fl (80-100); Monocytes Absolute Auto 0.4 K/mm3 (0.1-0.6); Monocytes Percent Auto 5.7 % (2.6-8.5); Neutrophils Absolute Auto 4.5 K/mm3 (1.3-6.7); Neutrophils Percent Auto 74.3 % (45.5-73.1); Platelet Count Result 130 k/mm3 (150-375); Red Blood Count 4.99 M/mm3 (4.2-5.4); Red Cell Distribution Width 12.9 % (11.5-14.5); White Blood Count 6.1 K/mm3 (4.5-10.0)
[2020-12-12 11:10] LABS: Anion Gap 9 mmol/L (8-16); Blood Urea Nitrogen 54 mg/dL (7-17); Calcium 9.1 mg/dL (8.4-10.2); Carbon Dioxide 33 mmol/L (22-30); Chloride 100 mmol/L (98-107); Estimated CRCL calculation 13 ml/min; Estimated Glomerular Filt Rate 12; Glucose 93 mg/dL (65-105); Potassium 3.1 mmol/L (3.4-5.0); Sodium 142 mmol/L (137-145)
[2020-12-12 11:15] LABS: Prothrombin Time 13.9 Seconds (11.1-14.7)
[2020-12-12 11:16] LABS: Partial Thromboplastin Time 28.6 SECONDS (22.3-36.8)
[2020-12-12 11:22] LABS: Troponin I 0.025 ng/mL (0.000-0.034)
[2020-12-12] MEDS: ACETAMINOPHEN 500 MG TABLET 1000 MG PO (12:03)
--- NOTE | 2020-12-12 13:06 | ED.CHESTPAIN ---
HPI - Chest Pain General Chief Complaint: Chest Pain Stated Complaint: Chest Pain Time Seen by Provider: 12/12/20 11:15 History of Present Illness HPI narrative: Patient is a 50-year-old female with complex medical history who presents the ER with right-sided back pain that radiates around the outside of her chest wall towards her right chest. 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 Patient reports history of NH that from chart review appears to be related to radiation injury to the vessel. Patient has chronic anginal chest pain that she reports is different than this discomfort she is having today. Reports she has been under a lot of stress recently and she becomes very anxious and is having difficulty discerning what this back pain may be. She denies injury. She does have kyphosis of her back. No numbness or tingling down her arm. No exertional component. No pain with deep breath. No hemoptysis. No lower extremity swelling. Related Data Home Medications Medication Instructions Recorded Confirmed aspirin 81 mg PO HS 08/27/19 12/01/19 atorvastatin [Lipitor] 40 mg PO HS 08/27/19 12/01/19 amlodipine 2.5 mg PO HS 11/23/19 12/01/19 furosemide [Lasix] 80 mg PO DAILY 11/23/19 12/01/19 potassium chloride 20 meq PO BID 11/23/19 12/01/19 furosemide 40 mg tablet 40 mg PO MOWEFR tablet 12/01/19 12/01/19 Allergies Allergy/AdvReac Type Severity Reaction Status Date / Time amoxicillin Allergy Severe Difficulty Verified 12/12/20 13:54 Breathing egg Allergy Severe STOPPED Verified 12/01/19 09:09 BREATHING Penicillins Allergy Severe Stopped Verified 12/12/20 13:54 Breathing ciprofloxacin Allergy Intermediate Fever Verified 12/01/19 09:09 bass Allergy Unknown Swelling Verified 12/01/19 09:09 clarithromycin Allergy Unknown WAS CHILD Verified 12/01/19 09:09 UNKNOWN REACTION Macrolide Antibiotics Allergy Unknown NO IDEA Verified 12/01/19 09:09 tree nut Allergy Unknown Vomiting Verified 12/12/20 13:54 Review of Systems Review of Systems: All systems reviewed & are unremarkable except as noted in HPI and below Constitutional: Constitutional: Denies chills, Denies fever(s) and Denies weakness ENT: Denies nasal congestion and Denies sore throat Cardiovascular: Cardiovascular: Reports chest pain, Denies rapid heart rate and Denies radiating jaw, neck or arm pain Respiratory: Respiratory: Denies cough, Denies dyspnea and Denies wheezing Gastrointestinal: Gastrointestinal: Denies abdominal pain, Denies nausea and Denies vomiting Musculoskeletal: Musculoskeletal: Reports back pain, Denies joint swelling and Denies muscle cramps PMFSH Past Medical History Medical History (Updated 12/12/20 @ 15:30 by Long Rodriguez MD) Aortic stenosis Asthma Asthma-COPD overlap syndrome CHF (congestive heart failure) Chronic kidney disease, stage 4 (severe) History of tobacco abuse Kidney disease Neuroblastoma Pacemaker Pulmonary hypertension Restrictive lung disease Surgical History Surgical History History of aortic valve replacement History of section History of hysterectomy History of thyroidectomy History of two vessel coronary artery bypass graft Family History Family History Father Hypertension Family history of coronary artery disease Mother Hypertension Cerebrovascular accident Family history of malignant neoplasm Family history of kidney disease Grandparent Family history of kidney disease Social History Social History (Updated 11/25/19 @ 19:42 by Ksasie Love MD) Smoking packs per day: 1 Smoking cigarettes per day: 20.0 Years smoked: 25 Smoking pack-years: 25.00
[2020-12-12 14:12] LABS: Troponin I 0.023 ng/mL (0.000-0.034)
== END 2020-12-12 15:46 | disposition home or self-care (01) ==
PROVIDERS: Emergency Medicine; Emergency Provider Emergency Medicine; PCP Internal Medicine
DX: M54.6 Pain in thoracic spine (principal); J44.9 Chronic obstructive pulmonary disease, unspecified; I50.9 Heart failure, unspecified; I13.0 Hypertensive heart and chronic kidney disease with heart failure and stage 1 through stage 4 chronic kidney disease, or unspecified chronic kidney disease; N18.4 Chronic kidney disease, stage 4 (severe); Z95.0 Presence of cardiac pacemaker; Z95.2 Presence of prosthetic heart valve; I49.5 Sick sinus syndrome; I25.2 Old myocardial infarction; E89.0 Postprocedural hypothyroidism; Z95.1 Presence of aortocoronary bypass graft; Z87.891 Personal history of nicotine dependence; R94.31 Abnormal electrocardiogram [ECG] [EKG]
CPT/HCPCS: 36415; 71046; 80048; 84484; 85025; 85055; 85610; 85730; 93005; 99284; A9270

== ENCOUNTER 2021-04-01 07:39 | Outpatient (CLI) | payer OTHER, MEDICAID, SELFPAY ==
--- NOTE | ~2021-04-01 | MM_ITS ---
EXAMINATION: MM scrn slick implant BI w jessica HISTORY: Screening mammogram TECHNIQUE: Craniocaudal and mediolateral oblique 3-D tomosynthesis images with implant displacement a nd synthetic 2-D images were generated. Craniocaudal and mediolateral oblique views of the breasts wi thout implant displacement were obtained using full field digital mammography. CAD analysis was submi tted and interpreted. COMPARISON: 06/21/2016, 05/14/2014 BREAST PARENCHYMAL COMPOSITION: The breasts are extremely dense, which lowers the sensitivity of mamm ography. FINDINGS: Scattered benign-appearing calcifications are present. There is no evidence of suspicious m ass, calcification, or architectural distortion to suggest malignancy in either breast. There has bee n no suspicious interval change. IMPRESSION: 1. No mammographic evidence of malignancy. 2. Recommend routine screening mammography in one year. BI-RADS Category 2: Benign finding(s). Reviewed, dictated and finalized at location A.
== END 2021-04-01 07:40 | disposition home or self-care (01) ==
PROVIDERS: PCP Internal Medicine; Visit Provider Obstetrics & Gynecology
DX: Z12.31 Encounter for screening mammogram for malignant neoplasm of breast (principal)
CPT/HCPCS: 77063; 77067

== ENCOUNTER 2021-05-13 10:45 | Outpatient (CLI) | payer OTHER, MEDICAID, SELFPAY ==
--- NOTE | ~2021-05-13 | DEXA_ITS ---
Bone Density Report Name: Ginger Marshall Age: 50 Sex: Female Ethnicity: White Date of : 1970 Indication: postmenopausal; asthma or emphysema; hysterectomy; Referring Provider: Soha Silver Study: Bone densitometry was performed. Exam Date: May 13, 2021 Accession number: [id number] Bone Density: Region BMD T-score Z-score Classification AP Spine (L1-L4) 1.090 0.4 1.1 Normal Femoral Neck (Left) 0.784 -0.6 0.1 Normal Total Hip (Left) 0.861 -0.7 -0.2 Normal Total Hip Bilateral Avg 0.848 -0.8 -0.3 Normal Femoral Neck (Right) 0.724 -1.1 -0.4 Osteopenia Total Hip (Right) 0.834 -0.9 -0.4 Normal World Health Organization criteria for BMD impression classify patients as: Normal (T-score at or above -1.0), Osteopenia (T-score between -1.0 and -2.5), or Osteoporosis (T-score at or below -2.5). 10-year Fracture Risk(1): Major Osteoporotic Fracture 3.5% Hip Fracture 0.2% Reported Risk Factors: [place] (), Neck BMD=0.724, BMI=20.1 (1) FRAX(R) Version 3.08. Fracture probability calculated for an untreated patient. Fracture probability may be lower if the patient has received treatment. Previous Exams: Region Exam Age BMD T-score BMD Change BMD Change Date g/cm2 vs Baseline vs Previous AP Spine(L1-L4) 05/13/2021 50 1.090 0.4 -0.002(-0.2%) -0.002(-0.2%) 05/13/2021 50 1.092 0.4 *Denotes significance at 95% confidence level, LSC for AP Spine = 0.022 g/cm2 Clinical Information Provided by Patient: Has used the following medications: Calcium Has the following medical conditions: Asthma or Emphysema, Hysterectomy, RENAL DIEASE Patient maximum height was 64 Menopause Age: 46 No regular weight bearing exercise Drinks caffeinated beverages Onset of menses at age 16 Number of children 2 Impression: The patient has low bone mass, based on the Right Femoral Neck T-score. The patient has an estimated ten-year risk of hip fracture of 0.2% and an estimated ten-year risk of major fracture of 3.5%, based on the WHO FRAX algorithm. No significant bone loss was observed. Discussion: BONE DENSITY IS LOW AT ONE OR MORE SKELETAL SITES. This patient's lowest T-score is low at one or more skeletal sites. It meets the World Health Organization's (WHO) criteria for ?low bone mass? (T-score between -1.0 and -2.5). The patient's 10-year risk of fracture as calculated by FRAX is less than the threshold where pharmacological therapy is recommended by the National Osteoporosis Foundation (NOF). However, all treatment decisions req
== END 2021-05-13 10:46 | disposition home or self-care (01) ==
PROVIDERS: PCP Internal Medicine; Visit Provider Nurse Practitioner
DX: Z78.0 Asymptomatic menopausal state (principal); M85.851 Other specified disorders of bone density and structure, right thigh
CPT/HCPCS: 77080

== ENCOUNTER 2021-06-01 08:09 | Outpatient (CLI) | payer OTHER, MEDICAID, SELFPAY ==
--- NOTE | 2021-06-01 | EST_ITS ---
Patient Info Name: Ginger Marshall Age: 50 years : 1970 Gender: Female Ht: 64 in Wt: 118 lbs BSA: 1.55 m2 Heart Rhythm: Sinus Rhythm Exam Date: 06/01/2021 9:53 AM Exam Location: [facility] Patient Status: Outpatient Admit Date: 06/01/2021 Staff Ordering Physician: GIANCARLO VINES Attending Provider: GIANCARLO VINES Exercise Technologist: Danyelle Burns RDCS Exercise Physician: Blayne Dubois MD Exam Type: CA stress russ w NM Study Info Indications Z01.818 - Encounter for other preprocedural examination I50.32 - Chronic diastolic (congestive) heart failure A regadenoson stress test was performed. Summary 1. Non diagnostic ST abnormalities observed with Lexiscan. 2. Occasional stress-induced PVCs with Lexiscan. 3. Please correlate with nuclear medicine images, reported separately. 4. Transient chest discomfort with Lexiscan, resolved spontaneously. Protocol: Lexiscan Stress ECG Details Stage: REST Duration (min): 0 min : 41 sec HR (bpm): 64 SBP (mmHg): --- DBP (mmHg): --- Stage: STAGE 1 Duration (min): 1 min : 0 sec HR (bpm): 73 SBP (mmHg): 176 DBP (mmHg): 86 Stage: RECOVERY Duration (min): 1 min : 0 sec HR (bpm): 79 SBP (mmHg): 176 DBP (mmHg): 86 Stage: RECOVERY Duration (min): 2 min : 0 sec HR (bpm): 76 SBP (mmHg): 172 DBP (mmHg): 84 Stage: RECOVERY Duration (min): 3 min : 0 sec HR (bpm): 73 SBP (mmHg): 177 DBP (mmHg): 81 Stage: RECOVERY Duration (min): 4 min : 0 sec HR (bpm): 69 SBP (mmHg): 177 DBP (mmHg): 81 Stage: RECOVERY Duration (min): 5 min : 0 sec HR (bpm): 72 SBP (mmHg): 174 DBP (mmHg): 80 Stage: RECOVERY Duration (min): 5 min : 22 sec HR (bpm): 68 SBP (mmHg): 174 DBP (mmHg): 80 Rest HR: 64 bpm Peak HR: 81 bpm Peak Sys BP: 177 mmHg Max Pred HR: 171 bpm % Max Pred HR: 47 % Target HR: 145 bpm Max RPP: 14,337 bpm*mmHg Termination Reason: Completed protocol Cardiac Symptoms: Chest pain Total Time: 1 min : 0 sec Peak Arevalo BP: 81 mmHg Total Dose: 0.4 mg Resting ECG Sinus rhythm, short FL interval occasional ectopic atrial beats nonspecific ST abnormality. Stress ECG Non diagnostic ST abnormalities observed with Lexiscan. Arrhythmias Occasional stress-induced PVCs with Lexiscan. Report Signatures
--- NOTE | ~2021-06-01 | NM_ITS ---
EXAMINATION: NM russ stress w perfusion DATE: 06/01/2021 11:26 INDICATION: Coronary atherosclerosis. Heart failure. TECHNIQUE: Rest images were obtained following intravenous administration of 10 mCi Tc99m tetrofosmin (Myoview). The patient was infused intravenously with Lexiscan (regadenoson). Then, 30.3 mCi Tc99m t etrofosmin (Myoview) was administered intravenously, and stress images were obtained. Data was recons tructed into short axis and horizontal and vertical long axis SPECT images. Gated SPECT images were a lso obtained. COMPARISON: None. FINDINGS: There is no definite reversible or fixed perfusion abnormality to suggest ischemia or infar ction. There is no segmental wall motion abnormality. Left ventricular ejection fraction measures 6 6%. IMPRESSION: 1. No definite ischemia or infarct. 2. Normal left ventricular ejection fraction measuring 66%. Reviewed, dictated and finalized at location A.
== END 2021-06-01 08:10 | disposition home or self-care (01) ==
PROVIDERS: PCP Internal Medicine
DX: Z01.810 Encounter for preprocedural cardiovascular examination (principal); Z76.82 Awaiting organ transplant status; I25.10 Atherosclerotic heart disease of native coronary artery without angina pectoris; Q23.1 Congenital insufficiency of aortic valve; I50.30 Unspecified diastolic (congestive) heart failure; I25.119 Atherosclerotic heart disease of native coronary artery with unspecified angina pectoris
CPT/HCPCS: 78452; 93017; A9502; J2785

== ENCOUNTER 2021-08-10 12:53 | Outpatient (CLI) | payer OTHER, MEDICAID, SELFPAY ==
--- NOTE | ~2021-08-10 | XR_ITS ---
XR chest 2V 08/10/2021 13:11 Indication: Increasing shortness of breath. Procedure: 2 view chest Comparison: Comparison to multiple prior studies sequentially, with oldest reviewed study dated 03/2020. Findings: There are breast implants. Status post median sternotomy. There is a aortic valve stent. Pa cemaker leads are stable. There is bibasilar airspace disease. Small right pleural effusion. Impression: 1: Bibasilar airspace disease which may represent pneumonia and/or atelectasis. Reviewed, dictated and finalized at location B. Impression: 1: Bibasilar airspace disease which may represent pneumonia and/or atelectasis.
== END 2021-08-10 12:54 | disposition home or self-care (01) ==
LOC: ANHIMG 12:58
PROVIDERS: PCP Internal Medicine; Visit Provider Urology
DX: R06.02 Shortness of breath (principal); Z95.2 Presence of prosthetic heart valve; R91.8 Other nonspecific abnormal finding of lung field
CPT/HCPCS: 71046

== ENCOUNTER → 2021-08-29 03:51 | Outpatient (CLI) | payer OTHER, MEDICAID, SELFPAY ==
[2021-08-29 16:54] LABS: SARS-CoV-2 RNA PCR Negative
== END ==
PROVIDERS: PCP Internal Medicine; Visit Provider Internal Medicine Gastroenterology
DX: Z01.812 Encounter for preprocedural laboratory examination (principal); Z20.822 Contact with and (suspected) exposure to COVID-19
CPT/HCPCS: C9803; U0003; U0005

== ENCOUNTER 2021-09-01 02:49 | Day surgery (SDC) | payer OTHER, MEDICAID, SELFPAY ==
[2021-08-22 13:36] VITALS: BMI 19.6
--- NOTE | 2021-08-31 16:12 | PM.HPGS ---
History of Present Illness History of Present Illness Consent: Risks, benefits, and alternatives have been discussed and questions answered. Patient agrees to proceed with procedure. Chief complaint: Epigastric pain Narrative: Ginger Marshall is a 50 year old female referred for investigation of epigastric pain, and screening for colon cancer. She will be getting a kidney transplant in the near future. she also has polycystic disease involving liver and her medical reviewer is concerned about possible varices. Review of Systems Review of Systems: All systems reviewed & are unremarkable except as noted in HPI and below PMFSH Past Medical History Medical History Aortic stenosis Asthma Asthma-COPD overlap syndrome CHF (congestive heart failure) Chronic kidney disease, stage 4 (severe) History of tobacco abuse Hypothyroidism (acquired) Kidney disease Neuroblastoma Pacemaker Pulmonary hypertension Restrictive lung disease Surgical History Surgical History History of aortic valve replacement History of section History of hysterectomy History of thyroidectomy History of two vessel coronary artery bypass graft Family History Family History Father Hypertension Family history of coronary artery disease Mother Hypertension Cerebrovascular accident Family history of malignant neoplasm Family history of kidney disease Grandparent Family history of kidney disease Social History Social History Smoking packs per day: 1 Smoking cigarettes per day: 20.0 Years smoked: 25 Smoking pack-years: 25.00 Smoking status: Former smoker Second hand tobacco smoke exposure: Yes Smoking end date: 10/21/11 Alcohol intake: never Substance use: never Living arrangements: alone Gender identity (if verbalized by the patient): Female Spiritual care concerns: No Agree to blood products: Yes Meds Home Medications and Allergies Home Medications Medication Instructions Recorded Confirmed Type aspirin 81 mg PO HS 08/27/19 09/01/21 History potassium chloride 20 meq PO DAILY 11/23/19 09/01/21 History furosemide 40 mg tablet 80 mg PO DAILY tablet 12/01/19 09/01/21 History albuterol sulfate 90 mcg/actuation 2 puff INHALATION Q4-6H PRN #18 g 09/13/20 09/01/21 Rx aerosol inhaler levothyroxine 112 mcg tablet 112 mcg PO DAILY #90 tablet 07/12/21 09/01/21 Rx doxycycline hyclate 100 mg tablet 100 mg PO DAILY #20 tablet 08/10/21 09/01/21 Rx calcitriol [Rocaltrol] 0.5 mcg PO WEEKLY 08/22/21 09/01/21 History Allergies Allergy/AdvReac Type Severity Reaction Status Date / Time amoxicillin Allergy Severe Difficulty Verified 09/01/21 07:10 Breathing egg Allergy Severe STOPPED Verified 09/01/21 07:10 BREATHING Penicillins Allergy Severe Stopped Verified 09/01/21 07:10 Breathing ciprofloxacin Allergy Intermediate Fever Verified 09/01/21 07:10 bass Allergy Unknown Swelling Verified 09/01/21 07:10 clarithromycin Allergy Unknown WAS CHILD Verified 09/01/21 07:10 UNKNOWN REACTION Macrolide Antibiotics Allergy Unknown NO IDEA Verified 09/01/21 07:10 tree nut Allergy Unknown Vomiting Verified 09/01/21 07:10 Exam Const: General: alert Orientation/consciousness: patient oriented x3 Resp: Auscultation: clear to auscultation bilaterally Cardio: Rhythm: regular rhythm GI: GI Palp: Yes Soft to palpation and No Tenderness to palpation present (GI) Neuro: General: patient oriented x3 Assessment and Plan Assessment and plan (1) Epigastric pain: Code(s): R10.13 - Epigastric pain Status: Acute Assessment and Plan: EGD with possible biopsy or dilatation or cautery. (2) Screening for colon cancer: Code(s): Z12.11 - Encounter for screening for
[2021-09-01 07:12] VITALS: BMI 18.7
[2021-09-01] MEDS: LACTATED RINGERS 1,000 ML 150 ML IV CONT ×2 (07:52→08:45)
--- NOTE | 2021-09-01 08:05 | WPDANESEPPF ---
Anes - Initial Pre Proc Eval Procedure: Operation Date: 09/01/21 08:30 Proposed Procedures p Esophagogastroduodenoscopy & Colonoscopy - Ángel Robin MD Date/Time: 09/01/21 08:05 Surgeon: Ángel Robin MD Pre Op Diagnosis: Epigastric pain Patient Data Age: 50 Gender: F Height: 1.63 m Weight: 49.5 kg Allergies Allergy/AdvReac Type Severity Reaction Status Date / Time amoxicillin Allergy Severe Difficulty Verified 09/01/21 07:10 Breathing egg Allergy Severe STOPPED Verified 09/01/21 07:10 BREATHING Penicillins Allergy Severe Stopped Verified 09/01/21 07:10 Breathing ciprofloxacin Allergy Intermediate Fever Verified 09/01/21 07:10 bass Allergy Unknown Swelling Verified 09/01/21 07:10 clarithromycin Allergy Unknown WAS CHILD Verified 09/01/21 07:10 UNKNOWN REACTION Macrolide Antibiotics Allergy Unknown NO IDEA Verified 09/01/21 07:10 tree nut Allergy Unknown Vomiting Verified 09/01/21 07:10 Home Medications Medication Instructions Recorded Confirmed Type aspirin 81 mg PO HS 08/27/19 09/01/21 History potassium chloride 20 meq PO DAILY 11/23/19 09/01/21 History furosemide 40 mg tablet 80 mg PO DAILY tablet 12/01/19 09/01/21 History albuterol sulfate 90 mcg/actuation 2 puff INHALATION Q4-6H PRN #18 g 09/13/20 09/01/21 Rx aerosol inhaler levothyroxine 112 mcg tablet 112 mcg PO DAILY #90 tablet 07/12/21 09/01/21 Rx doxycycline hyclate 100 mg tablet 100 mg PO DAILY #20 tablet 08/10/21 09/01/21 Rx calcitriol [Rocaltrol] 0.5 mcg PO WEEKLY 08/22/21 09/01/21 History Patient hx anesthesia problems: none Family hx anesthesia problems: none Results Review: All pre-operative results and documents have been reviewed as part of the pre-operative evaluation. [facility] Past Medical History Medical History Aortic stenosis Asthma Asthma-COPD overlap syndrome CHF (congestive heart failure) Chronic kidney disease, stage 4 (severe) History of tobacco abuse Hypothyroidism (acquired) Kidney disease Neuroblastoma Pacemaker Pulmonary hypertension Restrictive lung disease Surgical History Surgical History History of aortic valve replacement History of section History of hysterectomy History of thyroidectomy History of two vessel coronary artery bypass graft Family History Family History Father Hypertension Family history of coronary artery disease Mother Hypertension Cerebrovascular accident Family history of malignant neoplasm Family history of kidney disease Grandparent Family history of kidney disease Social History Social History Smoking packs per day: 1 Smoking cigarettes per day: 20.0 Years smoked: 25 Smoking pack-years: 25.00 Smoking status: Former smoker Second hand tobacco smoke exposure: Yes Smoking end date: 10/21/11 Alcohol intake: never Substance use: never Living arrangements: alone Gender identity (if verbalized by the patient): Female Spiritual care concerns: No Agree to blood products: Yes Anes - Eval Final PreProcedure Day of Procedure 09/01/21 08:05 Patient weight: thin Heart: regular rate and rhythm Lungs: clear to auscultation Airway: Mallampati scale class II Neurological: alert and oriented Last oral intake: >/= 8 hours ASA classification: III Emergent: no Anesthetic plan: proceed Anesthesia type and monitoring: general GIVS and standard monitoring Results Review: All pre-operative results and documents have been reviewed as part of the pre-operative evaluation. Informed Consent: The patient's anesthetic plan and its attendant risks and benefits were discussed with the patient/family/POA. Questions were solicited and answers provided to the satisfaction of the patient/family/POA.
--- NOTE | 2021-09-01 09:06 | SUR.OPER ---
EGD ended at 854 Colonoscopy started at 900
[2021-09-01 09:44] VITALS: BP 103/55; PULSE 63; RESP 15; O2SAT 100
[2021-09-01 09:54] VITALS: BP 115/63; PULSE 66; RESP 15; O2SAT 100
[2021-09-01 10:04] VITALS: BP 130/59; PULSE 61; RESP 12; O2SAT 100
== END 2021-09-01 10:19 | disposition home or self-care (01) ==
PROVIDERS: PCP Internal Medicine; Visit Provider Internal Medicine Gastroenterology
PROC: 0DJ08ZZ Inspection of Upper Intestinal Tract, Via Natural or Artificial Opening Endoscopic (ICD-10-PCS; CPT 43235; principal; 2021-09-01 08:30)
DX: Z12.11 Encounter for screening for malignant neoplasm of colon (principal); R10.13 Epigastric pain; K63.5 Polyp of colon; Z79.82 Long term (current) use of aspirin; Z79.51 Long term (current) use of inhaled steroids; K29.70 Gastritis, unspecified, without bleeding; E03.9 Hypothyroidism, unspecified; I35.0 Nonrheumatic aortic (valve) stenosis; J44.9 Chronic obstructive pulmonary disease, unspecified; N18.4 Chronic kidney disease, stage 4 (severe); I50.9 Heart failure, unspecified; Z95.0 Presence of cardiac pacemaker; C74.90 Malignant neoplasm of unspecified part of unspecified adrenal gland; I27.20 Pulmonary hypertension, unspecified; Z95.2 Presence of prosthetic heart valve; Z95.1 Presence of aortocoronary bypass graft; Z87.891 Personal history of nicotine dependence; Q44.6 Cystic disease of liver
CPT/HCPCS: 45385; 45381; 43239; 87081; 88305; C9803; J3370; J7120; U0003; U0005

== ENCOUNTER 2021-09-27 08:25 | Outpatient (RCR) | payer OTHER, MEDICAID, SELFPAY ==
[2021-09-27 13:08] VITALS: BP 150/83; PULSE 103; RESP 24; TEMP 36.6; O2SAT 100
[2021-09-27] MEDS: FAMOTIDINE 20 MG TABLET PO (13:14)
[2021-09-27] MEDS: ACETAMINOPHEN 325 MG TABLET 650 MG PO (13:14)
[2021-09-27] MEDS: diphenhydrAMINE HCl CAP 25 MG CAPSULE PO (13:15)
[2021-09-27 14:43] VITALS: BP 147/60
--- NOTE | 2021-09-28 11:04 | PC.NURSE ---
Called Ms Martinsroniclare and she is feeling better today. She has no questions for us.
== END 2021-09-27 17:00 ==
LOC: AMCINF 08:25
PROVIDERS: PCP Internal Medicine; Visit Provider Internal Medicine Hematology & Oncology
DX: U07.1 COVID-19 (principal); I25.10 Atherosclerotic heart disease of native coronary artery without angina pectoris; J44.9 Chronic obstructive pulmonary disease, unspecified; D84.9 Immunodeficiency, unspecified; N18.9 Chronic kidney disease, unspecified
CPT/HCPCS: A9270; M0245; Q0245

== ENCOUNTER 2021-10-23 09:51 | Emergency (ER) | payer OTHER, MEDICAID, SELFPAY ==
--- NOTE | ~2021-10-23 | XR_ITS ---
EXAMINATION: XR chest 2V DATE: 10/23/2021 11:26 INDICATION: Dizziness. Palpitations. TECHNIQUE: Frontal and lateral views of the chest were obtained. COMPARISON: Chest 2 views 08/10/2021, CT abdomen and pelvis 12/12/2018, thoracic spine CT 12/12/2018 FINDINGS: There is a diffuse interstitial pattern in the lungs, consistent with mild pulmonary edema. No pleural effusion or pneumothorax. The heart size is normal. There are changes of aortic valve rep lacement. Median sternotomy wires and surgical clips are seen. Breast implants are noted. There is a right chest wall pacer with leads in the right atrium and right ventricle. There is chronic anterior wedging of multiple thoracic vertebral bodies. IMPRESSION: 1. Mild pulmonary edema. Reviewed, dictated and finalized at location A. NG DESIGN SPECIALIST IMPRESSION: 1. Mild pulmonary edema.
--- NOTE | 2021-10-23 10:21 | ECG_ITS ---
Measurements Intervals [place] Rate: 70 P: -22 GA: 94 QRS: 1 QRSD: 92 T: 120 QT: 428 QTc: 462 Interpretive Statements SINUS RHYTHM WITH SHORT GA INTERVAL ATRIAL PREMATURE COMPLEX LEFT VENTRICULAR HYPERTROPHY AND ST-T CHANGE BASELINE ARTIFACT- I, II, III, AVR, AVL, AVF, V3, V6 BORDERLINE ECG Electronically Signed On 10-23-2021 10:27:37 DYED [employer]OWER FEEDER by Rafael Calzada D.O.
[2021-10-23 10:25] VITALS: BP 193/73; PULSE 78; RESP 18; TEMP 36.5; O2SAT 10
[2021-10-23 10:57] LABS: Alanine Aminotransferase 24 U/L (4-35); Albumin Level 4.9 g/dL (3.5-5.1); Alkaline Phosphatase 74 U/L (38-126); Anion Gap 16 mmol/L (8-16); Aspartate Amino Transferase 28 U/L (14-36); Bilirubin,Total 0.9 mg/dL (0.2-1.3); Blood Urea Nitrogen 70 mg/dL (7-17); Calcium 8.7 mg/dL (8.4-10.2); Carbon Dioxide 27 mmol/L (22-30); Chloride 98 mmol/L (98-107); Estimated CRCL calculation 11 ml/min; Estimated Glomerular Filt Rate 10; Glucose 93 mg/dL (65-110); Lipase 168 U/L (23-300); Potassium 4.3 mmol/L (3.4-5.0); Sodium 141 mmol/L (137-145)
[2021-10-23 11:05] LABS: INR 1.1; Prothrombin Time 14.5 Seconds (11.1-14.7)
[2021-10-23 11:06] LABS: Partial Thromboplastin Time 29.7 SECONDS (22.3-36.8)
[2021-10-23 11:08] LABS: Basophils Percent Auto 0.4 % (0.2-1.2); Eosinophils Absolute Auto 0.1 K/mm3 (0-0.3); Hematocrit 42.3 % (37.0-47.0); Hemoglobin 13.5 g/dL (12.0-15.0); Immature Granulocyte Absolute 0.01 K/mm3 (0.00-0.031); Immature Granulocyte Percent A 0.2 % (0-0.5); Lymphocytes Absolute Auto 0.57 K/mm3 (0.9-3.2); Lymphocytes Percent Auto 12.8 % (18.3-44.2); Mean Corpuscular HGB Conc 31.9 g/dl (32-36); Mean Corpuscular Hemoglobin 28.2 pg (26-34); Mean Corpuscular Volume 88.3 fl (80-100); Mean Platelet Volume 11.6 fl (7.4-10.4); Monocytes Absolute Auto 0.2 K/mm3 (0.1-0.6); Monocytes Percent Auto 4.5 % (2.6-8.5); Neutrophils Absolute Auto 3.6 K/mm3 (1.3-6.7); Neutrophils Percent Auto 80.1 % (45.5-73.1); Platelet Count Result 141 k/mm3 (150-375); Red Blood Count 4.79 M/mm3 (4.2-5.4); Red Cell Distribution Width 13.9 % (11.5-14.5); White Blood Count 4.5 K/mm3 (4.5-10.0)
[2021-10-23 11:09] LABS: Troponin I 0.017 ng/mL (0.000-0.034)
== END 2021-10-24 03:53 | disposition left against medical advice (07) ==
PROVIDERS: Emergency Provider Emergency Medicine; PCP Internal Medicine
DX: R42 Dizziness and giddiness (principal)
CPT/HCPCS: 36415; 71046; 80053; 83690; 84484; 85025; 85610; 85730; 93005; 99199

== ENCOUNTER 2022-01-05 16:22 | Outpatient (CLI) | payer OTHER, MEDICAID, SELFPAY ==
--- NOTE | ~2022-01-05 | XR_ITS ---
EXAMINATION: XR chest 2V 01/05/2022 16:44 INDICATION: Chronic kidney disease stage IV PROCEDURE: 2 view chest COMPARISON: Comparison to multiple prior studies sequentially, with oldest reviewed study dated 12/12. FINDINGS: The lungs are clear. The cardiomediastinal silhouette is within normal limits. There are no pleural effusions. There is no pneumothorax suspected. There is dextroscoliosis of the thoracic spine. Status post median sternotomy. There are prosthetic heart valves. There are breast implants. T here is an aortic stent. IMPRESSION: 1: NO ACUTE CARDIOPULMONARY DISEASE. Reviewed, dictated and finalized at location B.
== END 2022-01-05 16:23 | disposition home or self-care (01) ==
LOC: ANHIMG 16:29
PROVIDERS: PCP Internal Medicine; Visit Provider Internal Medicine Nephrology
DX: N18.4 Chronic kidney disease, stage 4 (severe) (principal); R80.1 Persistent proteinuria, unspecified; R53.83 Other fatigue
CPT/HCPCS: 71046

== ENCOUNTER 2022-02-21 07:56 | Outpatient (CLI) | payer OTHER, MEDICAID, SELFPAY ==
--- NOTE | ~2022-02-21 | XR_ITS ---
EXAMINATION: XR chest 2V DATE: 02/21/2022 08:18 INDICATION: Increasing shortness of breath TECHNIQUE: PA and lateral views of the chest were obtained. Patient returned for repeat PA radiograph with nipple markers on 02/22/2022. COMPARISON: Chest radiograph dated 01/05/2022, 10/23/2021 and 08/10/2021 FINDINGS: Persistent opacities in the left lower lung zone. This includes blunting at the costophrenic angle co nsistent possibility of a small left pleural effusion. Nipple shadows project over the lateral lower lung zones. Right lung is clear. No pneumothorax or right-sided pleural effusion. Heart size is neo l. Median sternotomy wires, ostial markers and mediastinal surgical clips consistent with prior coron kennedi artery bypass grafting. There has also been prior aortic valve repair. Dual lead pacemaker seen w ith leads projecting over the expected locations of the right atrium and right ventricle. Bilateral breast implants. Surgical clips at the neck on either side of the trachea suggesting prior thyroidec areli. 3 component S-shaped curvature of the thoracic and lumbar spine with upper thoracic and upper l umbar levo scoliosis and mid thoracic dextroscoliosis. There is also chronic mild kyphosis in the upp er thoracic spine with suggestion of mild anterior wedging of a couple upper thoracic vertebral dontrell s. IMPRESSION: 1. Persistent airspace opacities in the left lower lung zone which could represent atelectasis/scarri ng or pneumonia. The chronicity of the opacities which can be seen dating back to 08/10/2021 also jeong ses concern for malignancy, bronchial obstruction or other etiology predisposing towards chronic or r ecurrent infection and would consider further evaluation with contrast-enhanced chest CT. 2. Possible small left pleural effusion. Reviewed, dictated and finalized at location A. IMPRESSION: 1. Persistent airspace opacities in the left lower lung zone which could repres ent atelectasis/scarring or pneumonia. The chronicity of the opacities which ca n be seen dating back to 08/10/2021 also raises concern for malignancy, bronchi al obstruction or other etiology predisposing towards chronic or recurrent infe ction and would consider further evaluation with contrast-enhanced chest CT. 2. Possible small left pleural effusion.
== END 2022-02-21 07:57 | disposition home or self-care (01) ==
PROVIDERS: PCP Internal Medicine; Visit Provider Urology
DX: R06.02 Shortness of breath (principal); R91.8 Other nonspecific abnormal finding of lung field; J90 Pleural effusion, not elsewhere classified
CPT/HCPCS: 71046

== ENCOUNTER 2022-04-10 12:02 | Emergency (ER) | payer OTHER, MEDICAID, SELFPAY ==
[2022-04-10] VITALS (18 sets, daily range): BP systolic 124–149; BP diastolic 61–79; PULSE 66–80; RESP 0–27; TEMP 36.5; O2SAT 99–100
--- NOTE | ~2022-04-10 | XR_ITS ---
EXAMINATION: XR chest 2V DATE: 04/10/2022 12:40 INDICATION: Left-sided chest pain TECHNIQUE: PA and lateral views of the chest are obtained. COMPARISON: 02/21/2022 FINDINGS: There are minimal airspace opacities of the left lower lobe. No pleural effusion or pneumot horax. The heart size is normal. There are changes of aortic valve repair. Median sternotomy wires an d mediastinal surgical clips are seen, likely from prior coronary artery bypass grafting. A dual-lead cardiac pacemaker of the right chest wall ends with leads in expected locations. Surgical clips in t he neck are again noted, likely related to thyroidectomy. There are bilateral breast implants. IMPRESSION: 1. Left lower lobe airspace opacities, consistent with pneumonia versus atelectasis/scarring. Reviewed, dictated and finalized at location A. IMPRESSION: 1. Left lower lobe airspace opacities, consistent with pneumonia versus atelect asis/scarring.
--- NOTE | 2022-04-10 12:06 | ECG_ITS ---
Measurements Intervals [place] Rate: 82 P: -63 MD: 162 QRS: 11 QRSD: 92 T: 121 QT: 396 QTc: 463 Interpretive Statements ELECTRONIC ATRIAL PACEMAKER BASELINE ARTIFACT LEFT VENTRICULAR HYPERTROPHY ST AND T-WAVE ABNORMALITY, CONSIDER ISCHEMIA ABNORMAL ECG COMPARED TO ECG 10/23/2021 10:24:31 ELECTRONIC ATRIAL PACED RHYTHM AND ST ABNORMALITY NOT PRESENT Electronically Signed On 04-10-2022 15:05:21 CDT by Blayne Dubois M.D.
[2022-04-10 12:34] LABS: Basophils Percent Auto 0.5 % (0.2-1.2); Eosinophils Absolute Auto 0.2 K/mm3 (0-0.3); Eosinophils Percent Auto 2.9 % (0-4.4); Hematocrit 39.7 % (37.0-47.0); Hemoglobin 12.5 g/dL (12.0-15.0); Immature Granulocyte Absolute 0.02 K/mm3 (0.00-0.031); Immature Granulocyte Percent A 0.4 % (0-0.5); Lymphocytes Absolute Auto 0.78 K/mm3 (0.9-3.2); Lymphocytes Percent Auto 14.3 % (18.3-44.2); Mean Corpuscular HGB Conc 31.5 g/dl (32-36); Mean Corpuscular Hemoglobin 29.3 pg (26-34); Mean Platelet Volume 10.2 fl (7.4-10.4); Monocytes Absolute Auto 0.4 K/mm3 (0.1-0.6); Monocytes Percent Auto 6.4 % (2.6-8.5); Neutrophils Absolute Auto 4.1 K/mm3 (1.3-6.7); Neutrophils Percent Auto 75.5 % (45.5-73.1); Platelet Count Result 124 k/mm3 (150-375); Red Blood Count 4.27 M/mm3 (4.2-5.4); Red Cell Distribution Width 14.6 % (11.5-14.5); White Blood Count 5.5 K/mm3 (4.5-10.0)
[2022-04-10 12:48] LABS: Alanine Aminotransferase 25 U/L (6-35); Albumin Level 3.7 g/dL (3.5-5.1); Alkaline Phosphatase 64 U/L (38-126); Anion Gap 9 mmol/L (8-16); Aspartate Amino Transferase 28 U/L (14-36); Bilirubin,Total 0.3 mg/dL (0.2-1.3); Blood Urea Nitrogen 49 mg/dL (7-17); Calcium 7.9 mg/dL (8.4-10.2); Carbon Dioxide 28 mmol/L (22-30); Chloride 102 mmol/L (98-107); Estimated CRCL calculation 9 ml/min; Estimated Glomerular Filt Rate 9; Glucose 79 mg/dL (65-110); Lipase 107 U/L (23-300); Potassium 3.6 mmol/L (3.4-5.0); Sodium 139 mmol/L (137-145)
[2022-04-10 12:50] LABS: INR 1.1; Partial Thromboplastin Time 29.6 SECONDS (22.3-36.8); Prothrombin Time 13.7 Seconds (11.1-14.7)
[2022-04-10 14:48] LABS: SARS-CoV-2 RNA PCR Negative
[2022-04-10] MEDS: MORPHINE SULFATE (*CRX) 4 MG/ML INJ IV PUSH (14:51)
[2022-04-10] MEDS: ONDANSETRON INJ 4 MG/2 ML VIAL IV PUSH (14:51)
--- NOTE | 2022-04-10 17:50 | ED.CHESTPAIN ---
HPI - Chest Pain General Chief Complaint: Chest Pain Stated Complaint: chest pain Time Seen by Provider: 04/10/22 12:39 Source: patient Limitations: no limitations History of Present Illness HPI narrative: 51-year-old with a history of CAD s/p stent 1 month ago, CABG, aortic valve replacement, ESRD on peritoneal dialysis was sent from Dr. Hull with a left-sided chest pain started this morning. Patient states that pain is continuous in nature confined to the left lower part of the chest. She denies any shortness of breath. No history of nausea, vomiting or fever or chills. Patient states that she gets her cardiac care at [facility] and she endorses Dr. Jacques has her foundry helper. MD complaint: chest pain Pertinent past history: coronary artery disease Onset (ago): hour(s) (5) Timing of current episode: constant Prior episodes: No Pain location: left chest Pain radiation: none Severity: moderate Quality: aching Relieving factors: nothing Exacerbating factors: nothing Treatment prior to arrival: none Risk Factors Thoracic aortic dissection risk factors: none Related Data On Oral Contraceptives: No Home Medications Medication Instructions Recorded Confirmed aspirin 81 mg tablet,delayed 81 mg PO HS 08/27/19 04/05/22 release potassium chloride 20 mEq 20 meq PO DAILY 11/23/19 04/05/22 tablet,extended release furosemide 40 mg tablet (Lasix) 80 mg PO DAILY 12/01/19 04/05/22 Allergies Allergy/AdvReac Type Severity Reaction Status Date / Time amoxicillin Allergy Severe Difficulty Verified 04/05/22 08:02 Breathing egg Allergy Severe STOPPED Verified 04/05/22 08:02 BREATHING Penicillins Allergy Severe Stopped Verified 04/05/22 08:02 Breathing ciprofloxacin Allergy Intermediate Fever Verified 04/05/22 08:02 bass Allergy Unknown Swelling Verified 04/05/22 08:02 clarithromycin Allergy Unknown WAS CHILD Verified 04/05/22 08:02 UNKNOWN REACTION Macrolide Antibiotics Allergy Unknown NO IDEA Verified 04/05/22 08:02 tree nut Allergy Unknown Vomiting Verified 04/05/22 08:02 Review of Systems Review of Systems: All systems reviewed & are unremarkable except as noted in HPI and below Constitutional: Constitutional: Reports no additional constitutional complaints Eyes: Eyes: Reports no additional eye complaints ENT: Reports system reviewed and no additional complaints, except as documented Cardiovascular: Cardiovascular: Reports as per HPI Respiratory: Respiratory: Reports no additional respiratory complaints Gastrointestinal: Gastrointestinal: Reports no additional gastrointestinal complaints Musculoskeletal: Musculoskeletal: Reports no additional musculoskeletal complaints Neurologic: Reports system reviewed and no additional complaints, except as documented [facility] Past Medical History Medical History (Updated 04/10/22 @ 17:51 by Lisandro Fung MD) Acute renal failure on dialysis Aortic stenosis Asthma Asthma-COPD overlap syndrome CHF (congestive heart failure) Chronic kidney disease, stage 4 (severe) History of tobacco abuse Hypothyroidism (acquired) Kidney disease Neuroblastoma Pacemaker Pulmonary hypertension Restrictive lung disease Surgical History Surgical History History of aortic valve replacement History of section History of hysterectomy History of thyroidectomy History of two vessel coronary artery bypass graft Hx of heart artery stent Family History Family History Father Hypertension Family history of coronary artery disease Mother Hypertension Cerebrovascular accident Family history of malignant neoplasm Family history of kidney disease Grandparent Family history of kidney disease Social History Social History Smoking packs per day: 1 Smoking cigarettes pe
== END 2022-04-10 18:33 | disposition home or self-care (01) ==
PROVIDERS: Emergency Provider Family Medicine; PCP Internal Medicine
DX: R07.9 Chest pain, unspecified (principal); Z20.822 Contact with and (suspected) exposure to COVID-19; I25.10 Atherosclerotic heart disease of native coronary artery without angina pectoris; N18.6 End stage renal disease; Z99.2 Dependence on renal dialysis; I50.9 Heart failure, unspecified; I27.20 Pulmonary hypertension, unspecified; J98.4 Other disorders of lung; E89.0 Postprocedural hypothyroidism; Z95.2 Presence of prosthetic heart valve; Z95.1 Presence of aortocoronary bypass graft; Z95.0 Presence of cardiac pacemaker; Z95.5 Presence of coronary angioplasty implant and graft; Z79.82 Long term (current) use of aspirin; Z87.891 Personal history of nicotine dependence; R91.8 Other nonspecific abnormal finding of lung field; I51.7 Cardiomegaly; R94.31 Abnormal electrocardiogram [ECG] [EKG]
CPT/HCPCS: 36415; 71046; 80053; 83690; 84484; 85025; 85610; 85730; 93005; 96374; 96375; 99284; C9803; J2270; J2405; U0003; U0005

== ENCOUNTER 2022-05-22 09:14 | Outpatient (CLI) | payer OTHER, MEDICAID, SELFPAY ==
--- NOTE | ~2022-05-22 | XR_ITS ---
XR chest 2V 05/22/2022 09:36 Indication: Cough and congestion Procedure: 2 view chest Comparison: Comparison to multiple prior studies sequentially, with oldest reviewed study dated 12/2021. Findings: Status post median sternotomy for CABG. Pacemaker leads are stable. There is a prosthetic a ortic valve. There is left lower lobe airspace disease.. No acute osseous abnormality. Impression: 1: Chronic stable left lower lobe airspace disease. Consider atelectasis/scarring and atypical pneumo trinity. Reviewed, dictated and finalized at location A. Impression: 1: Chronic stable left lower lobe airspace disease. Consider atelectasis/scarri ng and atypical pneumonia.
== END 2022-05-22 09:15 | disposition home or self-care (01) ==
LOC: ANHIMG 09:19
PROVIDERS: PCP Internal Medicine; Visit Provider Urology
DX: R06.02 Shortness of breath (principal); R91.8 Other nonspecific abnormal finding of lung field
CPT/HCPCS: 71046

== ENCOUNTER 2022-05-23 09:13 | Emergency (ER) | payer OTHER, MEDICAID, SELFPAY ==
[2022-05-23 09:17] VITALS: PULSE 100; RESP 20; TEMP 36.3; O2SAT 100
[2022-05-23 09:22] VITALS: BP 123/56; PULSE 80; RESP 16; TEMP 37.8; O2SAT 99
--- NOTE | 2022-05-23 09:52 | ED.URI ---
HPI - URI/Sore Throat General Chief Complaint: Upper Respiratory Infection Stated Complaint: uri Time Seen by Provider: 05/23/22 09:52 Source: patient Mode of arrival: ambulatory Limitations: no limitations History of Present Illness HPI Narrative: 51 yo F presents with c/o sinus issues for several wks. Reports for 6 days she has had worsening of congestion, sneezing, sore throat, fatigue, bodyaches, cough. Concerned for sinus infection. Does not like to take a lot of OTC meds due to heart issues. Also states she has multiple allergies to antibiotics. Had some bactrim at home and has taken for several days but no improvement. States that she has taken two home covid tests that were negative. All systems reviewed and negative except as noted above. Related Data Home Medications Medication Instructions Recorded Confirmed aspirin 81 mg tablet,delayed 81 mg PO HS 08/27/19 05/23/22 release potassium chloride 20 mEq 20 meq PO DAILY 11/23/19 05/23/22 tablet,extended release furosemide 40 mg tablet (Lasix) 80 mg PO DAILY 12/01/19 05/23/22 Allergies Allergy/AdvReac Type Severity Reaction Status Date / Time amoxicillin Allergy Severe Difficulty Verified 05/23/22 09:23 Breathing egg Allergy Severe STOPPED Verified 05/23/22 09:23 BREATHING Penicillins Allergy Severe Stopped Verified 05/23/22 09:23 Breathing ciprofloxacin Allergy Intermediate Fever Verified 05/23/22 09:23 bass Allergy Unknown Swelling Verified 05/23/22 09:23 clarithromycin Allergy Unknown WAS CHILD Verified 05/23/22 09:23 UNKNOWN REACTION Macrolide Antibiotics Allergy Unknown NO IDEA Verified 05/23/22 09:23 tree nut Allergy Unknown Vomiting Verified 05/23/22 09:23 Review of Systems Review of Systems: CONSTITUTIONAL: Denies fever, chills, or sweats. Reports fatigue EYES: Denies visual changes, redness, or discharge. ENT: Reports rhinorrhea, congestion, sore throat. Denies otalgia. CARDIOVASCULAR: Denies chest pain, palpitations, or edema. RESPIRATORY: Reports cough. Denies dyspnea. GASTROINTESTINAL: Denies abdominal pain, nausea, vomiting, or diarrhea. GENITOURINARY: Denies dysuria or hematuria. SKIN: Denies rash or itching. MUSCULOSKELETAL: Denies back pain, joint pain. Reports myalgia. NEUROLOGIC: Denies headache, numbness, or weakness. PSYCHIATRIC: Denies anxiety or depression. All other systems reviewed are negative, except as documented in HPI. [facility] Past Medical History Medical History (Updated 05/23/22 @ 10:03 by Magdalena Mendez NP) Acute renal failure on dialysis Aortic stenosis Asthma Asthma-COPD overlap syndrome CHF (congestive heart failure) Chronic kidney disease, stage 4 (severe) History of tobacco abuse Hypothyroidism (acquired) Kidney disease Neuroblastoma Pacemaker Pulmonary hypertension Restrictive lung disease Surgical History Surgical History History of aortic valve replacement History of section History of hysterectomy History of thyroidectomy History of two vessel coronary artery bypass graft Hx of heart artery stent Family History Family History Father Hypertension Family history of coronary artery disease Mother Hypertension Cerebrovascular accident Family history of malignant neoplasm Family history of kidney disease Grandparent Family history of kidney disease Social History Social History Smoking packs per day: 1 Smoking cigarettes per day: 20.0 Years smoked: 25 Smoking pack-years: 25.00 Smoking status: Former smoker Tobacco type: cigarettes Second hand tobacco smoke exposure: Yes Smoking end date: 04/01/12 Alcohol intake: never Substance use: never Gender identity (if verbalized by the patient): Female Spiritual care concerns: No Agree to blood products: Yes Commen
== END 2022-05-23 10:08 | disposition home or self-care (01) ==
PROVIDERS: Emergency Provider Nurse Practitioner Family; PCP Internal Medicine
DX: J01.90 Acute sinusitis, unspecified (principal); J06.9 Acute upper respiratory infection, unspecified; Z20.822 Contact with and (suspected) exposure to COVID-19; Z87.891 Personal history of nicotine dependence; J44.9 Chronic obstructive pulmonary disease, unspecified; E03.9 Hypothyroidism, unspecified; I27.20 Pulmonary hypertension, unspecified; N18.4 Chronic kidney disease, stage 4 (severe); I50.9 Heart failure, unspecified; Z95.0 Presence of cardiac pacemaker; I35.0 Nonrheumatic aortic (valve) stenosis; Z85.831 Personal history of malignant neoplasm of soft tissue; Z95.5 Presence of coronary angioplasty implant and graft
CPT/HCPCS: 87426; 99213; C9803; G0463

== ENCOUNTER 2022-07-20 20:39 | Emergency (ER) | payer OTHER, MEDICAID, SELFPAY ==
--- NOTE | ~2022-07-20 | XR_ITS ---
EXAMINATION: XR chest 2V DATE: 07/20/2022 21:37 INDICATION: Shortness of breath. TECHNIQUE: Frontal and lateral views of the chest were obtained. COMPARISON: Chest 2 views 05/22/2022, CT abdomen and pelvis 07/20/2020 FINDINGS: Clara B-lines are noted, consistent with mild pulmonary edema. There is a small left pleur al effusion. No pneumothorax. The heart size is normal. There are changes of aortic valve replacement . There is a right chest wall pacer with leads in the right atrium and right ventricle. There are antoni gical clips in the neck. Breast implants are noted. IMPRESSION: 1. Mild pulmonary edema. 2. Small left pleural effusion. Reviewed, dictated and finalized at location A.
--- NOTE | ~2022-07-20 | CT_ITS ---
EXAMINATION: CTA chest DATE: 07/21/2022 13:38 INDICATION: Chest pain. Left flank pain. TECHNIQUE: Computed tomographic angiography (CTA) of the chest was performed with 100 mL Omnipaque-35 0 intravenous contrast. Automated exposure control and iterative reconstruction technique were employ ed. The dose-length product was 165.58 mGy-cm. Maximum intensity projection 3D-reconstructions of the aorta and other arteries were constructed by the technologist on a separate workstation. COMPARISON: CT abdomen and pelvis 07/20/2022, carotid ultrasound 09/02/2018 FINDINGS: The lungs demonstrate smooth septal thickening and groundglass opacities, consistent with p ulmonary edema. There are small bilateral pleural effusions. There are surgical clips in the neck. Th ere are likely surgical changes of the larynx. The heart size is normal. There are changes of aortic valve replacement. There is atherosclerosis of thoracic aorta. There is total occlusion of proximal l eft subclavian artery with reconstitution at the origin of the vertebral artery. There is moderate st enosis of origin of left common carotid artery. There is a right chest wall pacer with leads in the r ight atrium and right ventricle. There is no pulmonary embolus. Breast implants are noted. There are innumerable cysts in the liver. There are innumerable cysts and hemorrhagic cysts in the kidneys. The re is thoracic dextroscoliosis. There is upper thoracic kyphosis and severe spondylosis. There is sev ere central canal stenosis at T7. IMPRESSION: 1. No pulmonary embolus. 2. Aortic atherosclerosis. No aneurysm or dissection. 3. Mild pulmonary edema. 4. Small pleural effusions. 5. Polycystic kidney disease. 6. 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 Reviewed, dictated and finalized at location A. IMPRESSION: 1. No pulmonary embolus. 2. Aortic atherosclerosis. No aneurysm or dissection. 3. Mild pulmonary edema. 4. Small pleural effusions. 5. Polycystic kidney disease. 6. Total occlusion of proximal left subclavian artery with retrograde flow in l eft vertebral artery on the prior ultrasound, consistent with subclavian steal.
--- NOTE | ~2022-07-20 | CT_ITS ---
EXAMINATION: CT abdomen pelvis wo con DATE: 07/20/2022 21:28 INDICATION: Left flank pain. Nausea. Fever. TECHNIQUE: Computed tomography (CT) of the abdomen and pelvis was performed without intravenous contr ast. Automated exposure control and iterative reconstruction technique were employed. The dose-length product was 313.33 mGy-cm. COMPARISON: CT abdomen and pelvis 12/12/2018 FINDINGS: The visualized portions of the lung bases demonstrate smooth septal thickening, consistent with mild pulmonary edema. There is a small left pleural effusion. The heart size is normal. There ar e changes of aortic valve replacement. There are pacer wires in right atrium and right ventricle. Jessica ast implants are noted. There are numerous cysts in the liver measuring up to 5.0 cm. The gallbladder , spleen, and pancreas are normal. There are innumerable cysts and hemorrhagic cysts in the kidneys w ith the largest cyst measuring 4.8 cm on the right. There are parenchymal calcifications in both kidn eys. There is no hydronephrosis. A peritoneal dialysis catheter is noted. There are no dilated loops of bowel. The appendix is normal. There are no pathologically enlarged lymph nodes. There is a small volume of pelvic ascites. There is thoracolumbar levoscoliosis. IMPRESSION: 1. Mild pulmonary edema. 2. Small left pleural effusion. 3. Polycystic kidney disease. Reviewed, dictated and finalized at location A.
[2022-07-20 20:48] VITALS: BP 131/65; PULSE 90; RESP 20; TEMP 36.6; O2SAT 100
--- NOTE | 2022-07-20 21:17 | ECG_ITS ---
Measurements Intervals [place] Rate: 81 P: 16 [place]: 98 QRS: 5 QRSD: 92 T: 98 QT: 410 QTc: 478 Interpretive Statements SINUS RHYTHM WITH SHORT OK INTERVAL LEFT VENTRICULAR HYPERTROPHY AND ST-T CHANGE [VOLTAGE CRITERIA PLUS ST/T ABNORMALITY] POSSIBLE SEPTAL MYOCARDIAL INFARCTION , OF INDETERMINATE AGE [30 ms Q WAVE IN V1/V2] COMPARED TO ECG 04/10/2022 12:08:05 SINUS RHYTHM NOW PRESENT PRECORDIAL T-WAVE ABNORMALITY HAS IMPROVED Electronically Signed On 07-23-2022 14:27:59 CDT by Rc Robledo M.D.
--- NOTE | 2022-07-20 21:18 | ED.FEMALEGU ---
HPI - Female Genitourinary General Chief complaint: Chest Pain <Kimmy Egan PA-C - Last Filed: 07/21/22 12:05> Stated complaint: shoulder and left flank pain <Kimmy Egan PA-C - Last Filed: 07/21/22 12:05> Time Seen by Provider: 07/20/22 21:08 <Kimmy Egan PA-C - Last Filed: 07/21/22 12:05> History of Present Illness HPI Narrative: Patient is a 51-year-old female with history of CKD on peritoneal dialysis, CAD s/p CABG and stenting (03/11), pacemaker placement, aortic stenosis, polycystic kidney disease here for evaluation of left sided flank pain for the past hour. Patient states that the pain is severe in nature and is worse with certain positions. Additionally she has been complaining of intermittent atraumatic left shoulder pain for the past week, worse with certain position changes/exertion and possibly better when she massages the area. She has not attempted any medication for her pain. She makes scant urine but denies any urinary changes. Reports a temp of 100 at home in addition to nausea, but no vomiting. 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 Patient has been experiencing chest pain but she states this is somewhat chronic since receiving stents. <Kimmy Egan PA-C - Last Filed: 07/21/22 12:05> Related Data Home medications: Home Medications Medication Instructions Recorded Confirmed aspirin 81 mg tablet,delayed 81 mg PO HS 08/27/19 05/23/22 release potassium chloride 20 mEq 20 meq PO DAILY 11/23/19 05/23/22 tablet,extended release furosemide 40 mg tablet (Lasix) 80 mg PO DAILY 12/01/19 05/23/22 <DAVID Thomas Last Filed: 07/21/22 12:05> Allergies/Adverse reactions: Allergies Allergy/AdvReac Type Severity Reaction Status Date / Time amoxicillin Allergy Severe Difficulty Verified 07/21/22 12:43 Breathing egg Allergy Severe STOPPED Verified 07/21/22 12:43 BREATHING Penicillins Allergy Severe Stopped Verified 07/21/22 12:43 Breathing ciprofloxacin Allergy Intermediate Fever Verified 07/21/22 12:43 bass Allergy Unknown Swelling Verified 07/21/22 12:43 clarithromycin Allergy Unknown WAS CHILD Verified 07/21/22 12:43 UNKNOWN REACTION Macrolide Antibiotics Allergy Unknown NO IDEA Verified 07/21/22 12:43 tree nut Allergy Unknown Vomiting Verified 07/21/22 12:43 morphine Allergy Itching Verified 07/21/22 12:43 <Kimmy Egan PA-C - Last Filed: 07/21/22 12:05> Review of Systems Review of Systems: Gen: Denies fevers or chills Eyes: Denies eye pain or visual change ENT: Denies congestion Respiratory: Denies shortness of breath or cough CV: Denies chest pain or palpitations GI: Denies abdominal pain nausea, emesis or diarrhea denies burning, urgency, frequency or hematuria Musculoskeletal: Reports left flank and left shoulder pain. Neuro: Denies numbness, tingling, weakness or focal weakness Skin: Denies rash Except as documented, all other systems reviewed and negative <DAVID Thomas Last Filed: 07/21/22 12:05> [facility] Past Medical History Medical History: Medical History Acute renal failure on dialysis Aortic stenosis Asthma Asthma-COPD overlap syndrome CHF (congestive heart failure) Chronic kidney disease, stage 4 (severe) History of tobacco abuse Hypothyroidism (acquired) Kidney disease Neuroblastoma Pacemaker Pulmonary hypertension Restrictive lung disease <DAVID Thomas Last Filed: 07/21/22 12:05> Surgical History Surgical History: Surgical History History of aortic valve replacement History of section History of hysterectomy History of thyroidectomy History of two vessel coronary artery bypass graft Hx of heart artery stent <DAVID Thomas Last Filed: 07/21/22 12:05> Family His
[2022-07-20 22:10] LABS: Basophils Percent Auto 0.4 % (0.2-1.2); Eosinophils Absolute Auto 0.1 K/mm3 (0-0.3); Eosinophils Percent Auto 0.7 % (0-4.4); Hematocrit 40.8 % (37.0-47.0); Hemoglobin 13.4 g/dL (12.0-15.0); Immature Granulocyte Absolute 0.03 K/mm3 (0.00-0.031); Immature Granulocyte Percent A 0.4 % (0-0.5); Lymphocytes Absolute Auto 0.64 K/mm3 (0.9-3.2); Lymphocytes Percent Auto 7.5 % (18.3-44.2); Mean Corpuscular HGB Conc 32.8 g/dl (32-36); Mean Corpuscular Hemoglobin 29.6 pg (26-34); Mean Corpuscular Volume 90.1 fl (80-100); Mean Platelet Volume 10.4 fl (7.4-10.4); Monocytes Absolute Auto 0.4 K/mm3 (0.1-0.6); Monocytes Percent Auto 4.2 % (2.6-8.5); Neutrophils Absolute Auto 7.4 K/mm3 (1.3-6.7); Neutrophils Percent Auto 86.8 % (45.5-73.1); Platelet Count Result 140 k/mm3 (150-375); Red Blood Count 4.53 M/mm3 (4.2-5.4); Red Cell Distribution Width 13.7 % (11.5-14.5); White Blood Count 8.5 K/mm3 (4.5-10.0)
--- NOTE | 2022-07-20 22:10 | PC.NURSE ---
Talked to Ginger in lab at 22:10 to let her know I JIC'ed 3 tubes down because pt is a hard stick
[2022-07-20 22:30] LABS: Appearance Urine Slightly Cloudy (Clear); Bilirubin Urine Negative (Negative); Blood Urine 1+ (Negative); Color Urine Yellow (Yellow); Glucose Urine UA Negative (Negative); Ketones Urine Trace mg/dL (Negative); Leukocyte Esterase Ur 2+ LEU/UL (Negative); Nitrate Urine Negative (Negative); Protein Urine 2+ mg/dL (Negative); Urobilinogen Urine 0.2 mg/dL (<2.0)
[2022-07-20 22:33] LABS: Alanine Aminotransferase 26 U/L (6-35); Albumin Level 3.7 g/dL (3.5-5.1); Alkaline Phosphatase 56 U/L (38-126); Anion Gap 16 mmol/L (8-16); Aspartate Amino Transferase 35 U/L (14-36); Bilirubin,Total 0.6 mg/dL (0.2-1.3); Blood Urea Nitrogen 50 mg/dL (7-17); Calcium 7.5 mg/dL (8.4-10.2); Carbon Dioxide 25 mmol/L (22-30); Chloride 98 mmol/L (98-107); Estimated Glomerular Filt Rate 7; Glucose 120 mg/dL (65-110); Lipase 45 U/L (23-300); Potassium 3.2 mmol/L (3.4-5.0); Sodium 139 mmol/L (137-145)
[2022-07-20 22:33] LABS: Amorphous Sediment Urine Few; Bacteria Urine Trace /hpf; Mucus Urine Rare /lpf; Squamous Epithelial Cell Urine Many /hpf (Few); WBC Urine 31-50 /hpf
[2022-07-20 22:34] LABS: Add Urine Microscopic? YES
--- NOTE | 2022-07-20 22:43 | PC.NURSE ---
Spoke to Ginger in lab at 22:42 to add on Letitias MG
--- NOTE | 2022-07-20 22:54 | PC.NURSE ---
Talked to Ginger in lab at 22:55 to add on PT INR PTT
[2022-07-20 22:59] LABS: Phosphorus 5.3 mg/dL (2.5-4.5)
[2022-07-20 23:08] LABS: INR 1.3; Prothrombin Time 15.3 Seconds (11.1-14.7)
[2022-07-20 23:09] LABS: Partial Thromboplastin Time 30.5 SECONDS (22.3-36.8)
--- NOTE | 2022-07-20 23:15 | PC.NURSE ---
tylenol would not scan in room, med and patient verified verbally by patient and by name band
--- NOTE | 2022-07-20 23:18 | PC.NURSE ---
Talked to Ginger in lab to add on BNP at 23:18
[2022-07-20 23:38] LABS: NT Pro B Type Natriuretic Pept > 35000 pg/mL (5-100)
[2022-07-20] MEDS: ASPIRIN 81 MG CHEWABLE TABLET 324 MG PO (23:39)
[2022-07-21] VITALS (67 sets, daily range): BP systolic 89–115; BP diastolic 51–69; PULSE 66–81; RESP 9–28; TEMP 36.3–36.8; O2SAT 86–100
[2022-07-21 00:23] LABS: SARS-CoV-2 RNA PCR Negative
[2022-07-21] MEDS: MORPHINE SULFATE (*CRX) 4 MG/ML INJ IV PUSH ×3 (00:49→12:34)
--- NOTE | 2022-07-21 02:58 | PC.NURSE ---
Spoke to Lisa at the [facility] Transfer [facility]. Patient is on waitlist for a bed. Waiting for discharges, probably won't be until morning of 07/21/22
--- NOTE | 2022-07-21 06:06 | PC.NURSE ---
0500- 6hr Trop drawn. Pt moved into hospital bed in Rm 14. aware that no bed available at [facility] at this time.
--- NOTE | 2022-07-21 11:36 | ECG_ITS ---
Measurements Intervals [place] Rate: 66 P: -27 TN: 99 QRS: -23 QRSD: 91 T: 110 QT: 464 QTc: 488 Interpretive Statements SINUS RHYTHM WITH SHORT TN INTERVAL MINIMAL VOLTAGE CRITERIA FOR LVH ST-T WAVE ABNORMALITY, CONSIDER ISCHEMIA COMPARED TO ECG 07/20/2022 23:10:53 NO SIGNIFICANT CHANGES Electronically Signed On 07-22-2022 17:17:21 CDT by Delaney Saenz M.D.
--- NOTE | 2022-07-21 11:46 | PC.NURSE ---
noticed pt has continued increased troponins spoke to provider ekg ordered pt to start Heparin when ordered.
[2022-07-21] MEDS: ASPIRIN 81 MG CHEWABLE TABLET 324 MG PO (12:34)
[2022-07-21] MEDS: SODIUM CHLORIDE 0.9% IV 1,000 ML 500 ML IV CONT (12:34)
--- NOTE | 2022-07-21 12:50 | PC.NURSE ---
asked not to start heparin until ct scan results
[2022-07-21] MEDS: HEPARIN SOD/D5W 100 UNITS/ML 25,000 UNITS/250 ML BAG 6 UNITS IV CONT (14:51)
--- NOTE | 2022-07-21 15:05 | ECG_ITS ---
Measurements Intervals [place] Rate: 74 P: -8 RI: 106 QRS: -38 QRSD: 92 T: 110 QT: 459 QTc: 510 Interpretive Statements SINUS RHYTHM WITH SHORT RI INTERVAL LEFT AXIS DEVIATION MINIMAL VOLTAGE CRITERIA FOR LVH ST-T WAVE ABNORMALITY, CONSIDER ISCHEMIA COMPARED TO ECG 07/21/2022 11:52:36 NO CHANGES COMPARED TO PRIOR Electronically Signed On 07-22-2022 17:36:01 CDT by Delaney Saenz M.D.
--- NOTE | 2022-07-21 15:52 | PM.CNCAR ---
Assessment and Plan Assessment and plan (1) NSTEMI (non-ST elevated myocardial infarction): Code(s): I21.4 - Non-ST elevation (NSTEMI) myocardial infarction Status: Acute (2) Elevated troponin: Code(s): R77.8 - Other specified abnormalities of plasma proteins Status: Acute (3) CAD (coronary artery disease): Code(s): I25.10 - Atherosclerotic heart disease of [place] coronary artery without angina pectoris Status: Acute (4) Polycystic renal disease: Code(s): Q61.3 - Polycystic kidney, unspecified Status: Acute (5) CHF (congestive heart failure): Qualifiers: Heart failure type: unspecified Heart failure chronicity: chronic Qualified Code(s): I50.9 - Heart failure, unspecified Code(s): I50.9 - Heart failure, unspecified Status: Chronic Plan Given the rise in troponins with ongoing symptoms that get some relief with pain medications, I discussed with the patient about undergoing cardiac cath today. However, after extensive discussion with the patient, patient would like to hold off on cath for now as she would like to be cathed at [facility]. Patient is currently awaiting transfer to [place]. Patient did state she will undergo cath here if it became an emergency. Patient is currently electrically and hemodynamically stable. Latest troponin is stabilizing off. Serial ECGs are unchanged. Patient already loaded with ASA, continue ASA 81mg once daily Patient did not take her Plavix today, but otherwise reports compliance to taking medication. Will switch to Brilinta and load with 180mg of Brilinta. Continue with Brilinta 90mg BID. Start low-dose NTG drip as tolerated by her blood pressure (SBP currently in the 90s systolics). Would uptitrate NTG drip as tolerated by hemodynamics. Continue to trend troponins and repeat serial EKGs. History of Present Illness History of Present Illness Consult date/time: 07/21/22 15:52 Requesting physician: Krysten Lamb MD Consult reason: chest pain Reason For Visit: shoulder and left flank pain Narrative: Patient is a 51-year-old female with a history of severe aortic stenosis s/p complex surgical intervention in 2019 with placement of a 20mm Brown directly given very small annulus, known severe perivalvular insufficiency, coronary artery disease s/p single vessel bypass to the LAD with PCI to the ostium of this graft in February 2022, cardiomyopathy with LVEF 45-50%, Hodgkin's lymphoma s/p chest radiation with marked pectus deformities and significant adhesions, ESRD on peritoneal dialysis who presented to the ED with left should pain last night. Patient reports her pain began about 3 days ago, but has been constant since yesterday. Has not had pain like this before. Patient reports that sometimes massaging her shoulder helps with the pain. Patient has been in the ED since arriving here as she requested transfer to [facility] as they know her cardiac history very well; therefore, patient is currently awaiting transfer and has not been admitted to our hospital yet. ECG showing no acute ischemic changes compared to our old EKG from 03/2022. Troponin trend 1.600 --> 3.530 --> 4.670 --> 4.130 Cardiology consulted when troponin came back at 4.670. Patient was already started on Heparin drip, loaded with ASA. Review of Systems Review of Systems: All systems reviewed & are unremarkable except as noted in HPI and below (HPI) [facility] Past Medical History Medical History Acute renal failure on dialysis Aortic stenosis Asthma Asthma-COPD overlap syndrome CHF (congestive heart failure) Chronic kidney disease, stage 4 (severe) History of tobacco abuse Hypothyroidism (acquired) Kidney disease Neuroblastoma Pacemaker Pulmonary hypertension Restrictive lung disease Surgical History Surgical History History of aortic valve replacement His
--- NOTE | 2022-07-21 17:49 | PC.NURSE ---
ACCEPTED TO [facility] RM [id number]
--- NOTE | 2022-07-21 18:39 | PC.NURSE ---
PT LEFT AT 1810
== END 2022-07-21 18:10 | disposition short-term general hospital (02) ==
PROVIDERS: Physician Assistant; Emergency Provider Emergency Medicine; PCP Internal Medicine
DX: I21.4 Non-ST elevation (NSTEMI) myocardial infarction (principal); R77.8 Other specified abnormalities of plasma proteins; I25.10 Atherosclerotic heart disease of native coronary artery without angina pectoris; Q61.3 Polycystic kidney, unspecified; R10.9 Unspecified abdominal pain; I13.0 Hypertensive heart and chronic kidney disease with heart failure and stage 1 through stage 4 chronic kidney disease, or unspecified chronic kidney disease; I50.9 Heart failure, unspecified; N18.4 Chronic kidney disease, stage 4 (severe); J44.9 Chronic obstructive pulmonary disease, unspecified; E03.9 Hypothyroidism, unspecified; Z95.0 Presence of cardiac pacemaker; I27.20 Pulmonary hypertension, unspecified; Z99.2 Dependence on renal dialysis; Z95.5 Presence of coronary angioplasty implant and graft; Z95.4 Presence of other heart-valve replacement; Z87.891 Personal history of nicotine dependence; Z79.82 Long term (current) use of aspirin; Z79.51 Long term (current) use of inhaled steroids; Z20.822 Contact with and (suspected) exposure to COVID-19
CPT/HCPCS: 36415; 71046; 71275; 74176; 80053; 81001; 83690; 83735; 83880; 84100; 84484; 85025; 85610; 85730; 87086; 87147; 87181; 87186; 93005; 96361; 96365; 96374; 96375; 96376; 99285; A9270; C9803; J0131; J1644; J2270; J7030; Q9967; U0003; U0005

== ENCOUNTER 2022-07-31 07:30 | Inpatient (IN) | payer OTHER, MEDICAID, SELFPAY ==
[2022-07-31] VITALS (64 sets, daily range): BP systolic 95–147; BP diastolic 41–89; PULSE 62–74; RESP 12–22; TEMP 36.6; O2SAT 88–100
--- NOTE | ~2022-07-31 | XR_ITS ---
EXAMINATION: XR chest 2V DATE: 07/31/2022 07:58 INDICATION: Left-sided chest pain TECHNIQUE: PA and lateral views of the chest were obtained. COMPARISON: Chest radiograph dated 07/20/[address] dated 07/21/2022 FINDINGS: Opacities in the left lower lung zone. Right lung is clear. No pleural effusion or pneumothorax. Hear t size is normal. Median sternotomy wires, ostial markers and mediastinal surgical clips consistent w ith prior coronary artery bypass grafting. Aortic valve repair. Right pectoral dual lead pacemaker wi th lead tips projecting over the expected locations of the right atrium and right ventricle. Bilatera l breast implants. 3 component S-shaped scoliosis of the thoracic and lumbar spine. Surgical clips at the base of the neck suggesting prior thyroidectomy. IMPRESSION: 1. Opacities in the left lower lung zone which could represent atelectasis, pneumonia, small pleural effusion or some combination thereof. Reviewed, dictated and finalized at location B. IMPRESSION: 1. Opacities in the left lower lung zone which could represent atelectasis, pne umonia, small pleural effusion or some combination thereof.
--- NOTE | 2022-07-31 07:32 | ECG_ITS ---
Measurements Intervals [place] Rate: 64 P: -85 [place]: 186 QRS: -14 QRSD: 98 T: 167 QT: 439 QTc: 455 Interpretive Statements SINUS RHYTHM VERSES POSSIBLE ELECTRONIC ATRIAL PACEMAKER ANTEROLATERAL T-WAVE INVERSION COMPARED TO ECG 07/21/2022 15:12:08 NO SIGNIFICANT CHANGE Electronically Signed On 07-31-2022 13:19:03 CDT by Tanesha De Santiago M.D.
[2022-07-31 07:50] LABS: Basophils Percent Auto 0.5 % (0.2-1.2); Eosinophils Absolute Auto 0.3 K/mm3 (0-0.3); Eosinophils Percent Auto 5.5 % (0-4.4); Hematocrit 37.2 % (37.0-47.0); Hemoglobin 11.5 g/dL (12.0-15.0); Immature Granulocyte Absolute 0.01 K/mm3 (0.00-0.031); Immature Granulocyte Percent A 0.2 % (0-0.5); Lymphocytes Absolute Auto 0.83 K/mm3 (0.9-3.2); Lymphocytes Percent Auto 15.1 % (18.3-44.2); Mean Corpuscular HGB Conc 30.9 g/dl (32-36); Mean Corpuscular Hemoglobin 29.5 pg (26-34); Mean Corpuscular Volume 95.4 fl (80-100); Mean Platelet Volume 10.6 fl (7.4-10.4); Monocytes Absolute Auto 0.4 K/mm3 (0.1-0.6); Monocytes Percent Auto 6.7 % (2.6-8.5); Platelet Count Result 171 k/mm3 (150-375); Red Cell Distribution Width 15.1 % (11.5-14.5); White Blood Count 5.5 K/mm3 (4.5-10.0)
[2022-07-31 07:59] LABS: Alanine Aminotransferase 31 U/L (6-35); Albumin Level 3.3 g/dL (3.5-5.1); Alkaline Phosphatase 51 U/L (38-126); Anion Gap 13 mmol/L (8-16); Aspartate Amino Transferase 28 U/L (14-36); Bilirubin,Total 0.3 mg/dL (0.2-1.3); Blood Urea Nitrogen 50 mg/dL (7-17); Calcium 7.1 mg/dL (8.4-10.2); Carbon Dioxide 27 mmol/L (22-30); Chloride 100 mmol/L (98-107); Estimated CRCL calculation 8 ml/min; Estimated Glomerular Filt Rate 7; Glucose 84 mg/dL (65-110); Lipase 338 U/L (23-300); Potassium 3.4 mmol/L (3.4-5.0); Sodium 140 mmol/L (137-145)
[2022-07-31 08:07] LABS: INR 1.1; Prothrombin Time 13.7 Seconds (11.1-14.7)
[2022-07-31] MEDS: ASPIRIN 81 MG CHEWABLE TABLET 324 MG PO (08:12)
--- NOTE | 2022-07-31 08:12 | ED.CHESTPAIN ---
HPI - Chest Pain General Chief Complaint: Chest Pain <Tia Schultz MD - Last Filed: 08/01/22 21:33> Stated Complaint: LEFT shoulder pain (DE last week) <Tia Schultz MD - Last Filed: 08/01/22 21:33> Time Seen by Provider: 07/31/22 07:40 <Tia Schultz MD - Last Filed: 08/01/22 21:33> History of Present Illness HPI narrative: Patient is a 51-year-old female with a history of polycystic kidney disease on peritoneal dialysis, CAD with stent replacement last week presenting with left shoulder pain. Patient states that she developed severe left shoulder pain last week and ultimately was found to have a stent occlusion. She had another stent placed last week at [place]. Since that time she has been doing well. States she has been compliant with her aspirin and Plavix. Unfortunately, last night she developed mild left shoulder pain which continued to worsen through this morning. States it feels similarly to her pain last week. Also reports mild shortness of breath. She denies headache, numbness or weakness, lightheadedness, cough, abdominal pain, nausea or vomiting, diarrhea, leg swelling. <Tia Schultz MD - Last Filed: 08/01/22 21:33> Related Data Home Medications: Home Medications Medication Instructions Recorded Confirmed aspirin 81 mg tablet,delayed 81 mg PO HS 08/27/19 08/01/22 release potassium chloride 20 mEq 20 meq PO DAILY PRN Edema 11/23/19 08/01/22 tablet,extended release furosemide 40 mg tablet (Lasix) 80 mg PO DAILY PRN Edema 12/01/19 08/01/22 calcium acetate(phosphat bind) 667 667 mg PO TIDWM 08/01/22 08/01/22 mg capsule clopidogrel 75 mg tablet (Plavix) 75 mg PO DAILY 08/01/22 08/01/22 gentamicin 0.1 % topical cream 1 applic topical DAILY 08/01/22 08/01/22 inulin 2 gram chewable tablet 2 g PO DAILY 08/01/22 08/01/22 (Fiber Gummies) levothyroxine 112 mcg tablet 112 mcg PO DAILY 08/01/22 08/01/22 loratadine 10 mg tablet (Claritin) 10 mg PO DAILY PRN Allergy Symptoms 08/01/22 08/01/22 metoprolol succinate 25 mg 12.5 mg PO HS 08/01/22 08/01/22 tablet,extended release 24 hr multivitamin 1 tablet PO DAILY 08/01/22 08/01/22 nitroglycerin 0.4 mg sublingual 0.4 mg sublingual Q5M PRN Pain 08/01/22 08/01/22 tablet <Tia Schultz MD - Last Filed: 08/01/22 21:33> Allergies/Adverse Reactions: Allergies Allergy/AdvReac Type Severity Reaction Status Date / Time amoxicillin Allergy Severe Difficulty Verified 07/21/22 12:43 Breathing egg Allergy Severe STOPPED Verified 07/21/22 12:43 BREATHING Penicillins Allergy Severe Stopped Verified 07/21/22 12:43 Breathing ciprofloxacin Allergy Intermediate Fever Verified 07/21/22 12:43 bass Allergy Unknown Swelling Verified 07/21/22 12:43 clarithromycin Allergy Unknown WAS CHILD Verified 07/21/22 12:43 UNKNOWN REACTION Macrolide Antibiotics Allergy Unknown NO IDEA Verified 07/21/22 12:43 tree nut Allergy Unknown Vomiting Verified 07/21/22 12:43 morphine Allergy Itching Verified 07/21/22 12:43 <Tia Schultz MD - Last Filed: 08/01/22 21:33> Review of Systems Review of Systems: All systems reviewed & are unremarkable except as noted in HPI and below <Tia Schultz MD - Last Filed: 08/01/22 21:33> [facility] Past Medical History Medical History: Medical History (Updated 08/01/22 @ 21:33 by Tia Schultz MD) Aortic stenosis Bicuspid aortic valve. 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 Also with hx of left common carotid ulcer in plaque Asthma Asthma-COPD overlap syndrome CAD (coronary artery disease) CHF (congestive heart failure) ESRD (end stage renal disease) History of tobacco abuse Hypothyroidism (acquired) Ischemic cardiomyopathy Kidney disease Neuroblastoma Ganglial neuroblastoma removed from
[2022-07-31 08:13] LABS: Troponin I 0.087 ng/mL (0.000-0.034)
--- NOTE | 2022-07-31 08:13 | PC.NURSE ---
patient took 81 mg asa at home prior to arrival per md given 243mg here to make total of 324mg
[2022-07-31] MEDS: fentaNYL CITRATE INJ (*CRX) 100 MCG/2 ML VIAL 25 MCG IV PUSH ×2 (08:20→10:49)
[2022-07-31 08:25] LABS: Partial Thromboplastin Time 28.2 SECONDS (22.3-36.8)
[2022-07-31] MEDS: HEPARIN SODIUM 5,000 UNITS/ML VIAL 3000 UNITS IV PUSH (09:25)
[2022-07-31] MEDS: HEPARIN SOD/D5W 100 UNITS/ML 25,000 UNITS/250 ML BAG 6 UNITS IV CONT (09:26)
[2022-07-31 09:38] LABS: SARS-CoV-2 RNA PCR Negative
--- NOTE | 2022-07-31 10:39 | ECG_ITS ---
Measurements Intervals [place] Rate: 63 P: -77 [place]: 185 QRS: -30 QRSD: 97 T: 175 QT: 462 QTc: 474 Interpretive Statements ELECTRONIC ATRIAL PACEMAKER ANTEROLATERAL T-WAVE INVERSIONS COMPARED TO ECG 07/31/2022 07:41:46 NO SIGNIFICANT CHANGE Electronically Signed On 08-01-2022 14:31:53 CDT by Delaney Saenz M.D.
[2022-07-31 11:44] LABS: Troponin I 0.069 ng/mL (0.000-0.034)
[2022-07-31 14:06] LABS: Troponin I 0.069 ng/mL (0.000-0.034)
[2022-07-31] MEDS: HEPARIN SODIUM 5,000 UNITS/ML VIAL 4000 UNITS IV PUSH (16:37)
[2022-07-31 18:39] LABS: Partial Thromboplastin Time > 200.0 SECONDS (22.3-36.8)
--- NOTE | 2022-07-31 18:44 | PC.NURSE ---
No beds at [place] at [place] time pt remains on wait list
--- NOTE | 2022-07-31 18:48 | PC.NURSE ---
PTT should be drawn at 2230, but was drawn prior to now; pt. received bolus; this value being disregarded and will check again at 2230
--- NOTE | 2022-07-31 18:51 | PC.NURSE ---
Per [facility] access line, no bed will be available tonight.
--- NOTE | 2022-07-31 23:12 | PC.NURSE ---
[place] from [facility] called for an update on this patient and no new news on a bed at this time.
[2022-08-01] VITALS (24 sets, daily range): BP systolic 92–134; BP diastolic 46–55; PULSE 62–79; RESP 12–21; TEMP 36.6–37.4; O2SAT 96–100; BMI 19.1
--- NOTE | 2022-08-01 03:11 | PC.NURSE ---
This RN tried 3 times to draw blood on this patient. THis RN asked Joycelyn RN to draw blood on this patient not able to get blood at this time. notified ED Charge Claire who tried. poultry feed supervisor Nicci tried. called academic coach to come down and get blood and they stated they will hopefully have time they have other blood to draw first.
--- NOTE | 2022-08-01 03:36 | PC.NURSE ---
Addendum entered by America Rankin RN 08/01/22 06:37: Patient requested to be discharged and would like to go home now. LONG Buitrago went in room to talk to the patient. THis Patient told the nurse she was going to leave at [facility] if she does not have a bed at [facility]. Original Note: Clarisse
[2022-08-01 04:01] LABS: Partial Thromboplastin Time 78.5 SECONDS (22.3-36.8)
--- NOTE | 2022-08-01 04:16 | PC.NURSE ---
no dose changes on Heparin at this time according to the protocol
[2022-08-01 05:05] LABS: Basophils Percent Auto 0.6 % (0.2-1.2); Eosinophils Absolute Auto 0.3 K/mm3 (0-0.3); Eosinophils Percent Auto 4.6 % (0-4.4); Hematocrit 35.5 % (37.0-47.0); Hemoglobin 10.8 g/dL (12.0-15.0); Immature Granulocyte Absolute 0.03 K/mm3 (0.00-0.031); Immature Granulocyte Percent A 0.5 % (0-0.5); Lymphocytes Absolute Auto 0.92 K/mm3 (0.9-3.2); Lymphocytes Percent Auto 14.7 % (18.3-44.2); Mean Corpuscular HGB Conc 30.4 g/dl (32-36); Mean Corpuscular Hemoglobin 29.4 pg (26-34); Mean Corpuscular Volume 96.7 fl (80-100); Mean Platelet Volume 10.8 fl (7.4-10.4); Monocytes Absolute Auto 0.4 K/mm3 (0.1-0.6); Monocytes Percent Auto 6.7 % (2.6-8.5); Neutrophils Absolute Auto 4.6 K/mm3 (1.3-6.7); Neutrophils Percent Auto 72.9 % (45.5-73.1); Platelet Count Result 156 k/mm3 (150-375); Red Blood Count 3.67 M/mm3 (4.2-5.4); Red Cell Distribution Width 14.9 % (11.5-14.5); White Blood Count 6.3 K/mm3 (4.5-10.0)
--- NOTE | 2022-08-01 06:55 | PC.NURSE ---
This RN talked to the transfer center and the only news they have on a bed is that there is no one ahead of her and she is next for a bed
--- NOTE | 2022-08-01 09:43 | ADMGEN ---
This patient, Ginger Marshall, was admitted to IMU Room 207-01 at 0856 on 08/01/2022. Report received from Case POWER. Patient/family oriented to hospital policies and general routines including ID bracelet, bed and alarms, visiting hours, pain management, procedures, bathroom and other care routines, personal items, smoking policy, room service/diet, and visiting hours. Information on how to activate the Rapid Response Team has been discussed. Patient/Family are encouraged to report perceived risks to care and to ask questions if they do not understand what they are told or what they should do.
[2022-08-01 10:32] LABS: INR 1.2; Partial Thromboplastin Time 54.3 SECONDS (22.3-36.8); Prothrombin Time 14.3 Seconds (11.1-14.7)
[2022-08-01] MEDS: HYDROcodone/acetaminophen (*CRX) 5-325 MG TABLET 1 TAB PO (10:43)
[2022-08-01] MEDS: HEPARIN SODIUM 5,000 UNITS/ML VIAL 4000 UNITS IV PUSH ×2 (10:43→18:37)
--- NOTE | 2022-08-01 11:44 | PM.IMHP ---
H&P: HPI History of Present Illness Date/Time: 08/01/22 11:44 Chief Complaint: Left shoulder pain Narrative: 51yo female with CAD, CHF and ESRD here for recurrent left shoulder pain felt to be anginal equivalent. Patient has a history of coronary disease with a LA in 2018. She underwent a 2 vessel coronary artery bypass grafting with SVG to LAD and RCA 02/11/19. She also underwent AVR for bicuspid valve that was complicated by AI with leakage around the valve (unable to repair per patient). Patient had an LA in February of 2022. EF at that time was 45%. She underwent heart catheterization with stent placement the LAD graft at the time. She did well until July 20 when she developed left shoulder flank pain felt to be anginal equivalent. She was seen in the emergency room with troponins peaking at 4.7. She ultimately was transferred to [place] where she found to have restenoses of the stent requiring laser therapy and re-stenting on 07/24/22. EF had improved to 55%. She was discharged home the following day. She has been compliant with Plavix and aspirin. She felt well up until July 30 when she developed mild left shoulder pain that she describes as dull but was similar to her prior shoulder pain that resulted her previous ER visit. She did not take any NTG or other medications for the pain. She did not call her magnetic grinder operator. She was able to work without difficulty. On the day of admission around 330 in the morning, the left shoulder pain woke her up from sleep. Pain did radiate across to the right shoulder. Pain was not positional. She did have nausea. She also shortness of breath but this is more chronic. This discomfort worsens with activity. She presented to the emergency room on the morning of July 31 for evaluation. Vital signs were stable. Troponin was elevated to 0.087. Chest x-ray showed opacities in left lower lung zone but this was present in her previous x-ray on 07/20/2022. CTA on 07/20 showed pulmonary edema and left greater than right pleural effusions. EKG here shows anterior lateral and high lateral T-wave inversion. This was not present on EKG from 07/20/2022. She was given aspirin, fentanyl and started on heparin drip. Her magnetic grinder operator at [facility] was called with plans for transfer. No bed was available so patient has been admitted for monitoring as we wait for bed availability at [facility]. Review of Systems Review of Systems: Patient does complain of right hand and bilateral feet numbness and does also state that her fingers become ?white or purple? at times. This is been going on intermittently for the past few months. She also has end-stage renal disease on peritoneal dialysis. She is tolerating dialysis every evening. Dr. Escalante is her machine stripper. She makes were 500 mL per day of urine. She also has microscopic hematuria which is chronic. All systems reviewed & are unremarkable except as noted in HPI and below PMFSH Past Medical History Medical History (Updated 08/01/22 @ 12:11 by Elan Dewey MD) Aortic stenosis Bicuspid aortic valve. 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 She underwent left thoracotomy, chemotherapy and radiation. Pacemaker Patient developed bradycardia with sick sinus syndrome requiring pacemaker on 05/15/2019. 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 Polycystic renal disease Pulmonary hypertension Restrictive lung disease Surgical History
--- NOTE | 2022-08-01 11:59 | PM.CNCAR ---
Assessment and Plan Assessment and plan (1) CAD (coronary artery disease): Code(s): I25.10 - Atherosclerotic heart disease of [place] coronary artery without angina pectoris Status: Acute (2) ESRD (end stage renal disease): Code(s): N18.6 - End stage renal disease Status: Acute (3) Polycystic renal disease: Code(s): Q61.3 - Polycystic kidney, unspecified Status: Acute (4) NSTEMI (non-ST elevated myocardial infarction): Code(s): I21.4 - Non-ST elevation (NSTEMI) myocardial infarction Status: Acute Plan Awaiting transfer to [place]. In the meantime, would continue with Heparin drip. Resume ASA 81mg and Plavix 75, beta pamela. History of Present Illness History of Present Illness Consult date/time: 08/01/22 11:59 Requesting physician: Long Rodriguez MD Consult reason: chest pain Reason For Visit: CHEST PAIN,ELEVATED TROPONIN Narrative: Patient is a 51-year-old female with a history of severe aortic stenosis s/p complex surgical intervention in 2018 with placement of a 20mm Brown directly given very small annulus, known severe perivalvular insufficiency, CAD s/p single vessel bypass to the LAD with PCI to the ostium of this graft in February 2022, cardiomyopathy, Hodgkin's lymphoma s/p chest radiation with marked pectus deformities, ESRD on peritoneal dialysis. Patient was previously here at [facility] on 07/21 with left shoulder pain, found with NSTEMI. Given her complex cardiac history, patient requested transfer to [place]. Patient underwent cardiac cath at [place] which showed severe in-stent restenosis of the SVG-LAD stent. Patient underwent PCI with laser atherectomy and placement of DESI x 1. Echo done there showed LVEF 51%, normal RV function, small central AR jet with multiple areas of PVL; overall moderate AR. Patient reports that she was discharged home and did well. However, she began to develop the same left shoulder pain that she had last time, although this time it's milder than before. Patient reports full compliance with DAPT. Patient came to ER yesterday, and ED had already initiated tranfer to [place], who accepted patient for transfer, however, no bed available at this time. Given no bed this morning, patient to be admitted until a bed opens up. Review of Systems Review of Systems: All systems reviewed & are unremarkable except as noted in HPI and below (subjective) [facility] Past Medical History Medical History Acute renal failure on dialysis Aortic stenosis Asthma Asthma-COPD overlap syndrome CHF (congestive heart failure) Chronic kidney disease, stage 4 (severe) History of tobacco abuse Hypothyroidism (acquired) Kidney disease Neuroblastoma Pacemaker Pulmonary hypertension Restrictive lung disease Surgical History Surgical History History of aortic valve replacement History of section History of hysterectomy History of thyroidectomy History of two vessel coronary artery bypass graft Hx of heart artery stent Family History Family History Father Hypertension Family history of coronary artery disease, Onset Age: 57 Mother Hypertension Cerebrovascular accident Family history of malignant neoplasm Family history of kidney disease Grandparent Family history of kidney disease Social History Social History Social History: Patient smoked pack a day for 25 years quit 2011. No alcohol or drug use. She lives with her boyfriend, and 3 of her 4 children. She is a full code. She nominates her son Kennedy Alex to be the individual would make medical decisions for her if she is unable. Smoking packs per day: 1 Smoking cigarettes per day: 20.0 Years smoked: 25 Smoking pack-years: 25.00 Smoking status: Former smoker Tobacco type: cigarette
--- NOTE | 2022-08-01 16:19 | PM.CNNEP ---
Assessment and Plan Assessment and plan (1) ESRD (end stage renal disease): Code(s): N18.6 - End stage renal disease Status: Chronic Assessment and Plan: resume nightly peritoneal dialysis this evening follow electrolytes, voume status, and clearance (2) NSTEMI (non-ST elevated myocardial infarction): Code(s): I21.4 - Non-ST elevation (NSTEMI) myocardial infarction Status: Acute Assessment and Plan: as noted by troponins and EKG findings Cardiology following on heparin gtt awaiting transfer to [place] for further evaluation/intervention (3) Anemia: Code(s): D64.9 - Anemia, unspecified Status: Chronic Assessment and Plan: due to ESRD H/H at goal start Epogen once Hgb < 10 (4) CAD (coronary artery disease): Code(s): I25.10 - Atherosclerotic heart disease of [place] coronary artery without angina pectoris Status: Chronic Assessment and Plan: s/p CABG 2019 PCI with stent placement 02/2022 recent PCI of the proximal saphenous vein graft to the LAD on 07/24/22 (5) Left shoulder pain: Code(s): M25.512 - Pain in left shoulder Status: Acute Assessment and Plan: same symptom that led to discover of previous NSTEMI a few weeks ago thought to be her anginal equivalent follow symptom (6) Hypocalcemia: Code(s): E83.51 - Hypocalcemia Status: Chronic Assessment and Plan: secondary to previous parathyroidectomy follow repeat calcium levels Will continue to follow. History of Present Illness Reason for Consult Consult date: 08/01/22 Reason for consult: end stage renal disease (on peritoneal dialysis) Chief Complaint Chief complaint: CHEST PAIN,ELEVATED TROPONIN History of Present Illness Narrative: The patient is a 51-year-old female with a past medical history as outlined below who presented to [facility] Emergency room with complaints of left shoulder pain. On the day prior to admission, she had been doing reasonably well up until she developed mild left shoulder pain that she described as a dull ache but this pain was extremely similar to her previous left shoulder pain that resulted in the discovery of her known coronary artery disease. However, she has not take any nitroglycerin or any other medications for the pain nor did she call her knit goods press hand about it. At about 330 the morning she woke up from her sleep with more intense left shoulder pain. It radiated across her right shoulder but was not positional and was associated with nausea as well as some mild shortness of breath. Given this symptom and the history as mentioned, she presented to the ER for further evaluation. Workup and evaluation emergency room demonstrated the patient to be hemodynamically stable but in mild distress secondary to left shoulder pain. Initial testing demonstrated labs consistent with her known history of end-stage renal disease but it was noted that her troponin was mildly elevated at 0.087. Her chest x-ray showed opacities in left lower lung but this was present on previous chest x-rays as well. EKG demonstrated anterior lateral and high lateral T-wave inversions that was not apparently present on previous chest x-rays. Given the concern for possible acute coronary syndrome, she was given aspirin as well as fentanyl and started on a heparin drip. Her knit goods press hand at [place] was called with a tentative plan for her to be transferred to [facility]. Unfortunately, no beds were available for her admission and so she was admitted here to [facility] until a bed would be available at [place]. Renal consultation was requested due to her end-stage renal disease. The patient normally follows with Dr. Cricket Escalante for management of her peritoneal dialysis that she does through [facility] home dialysis. She has been on peritoneal dialysis since earlier this year and the etiology of her e
[2022-08-01 16:33] LABS: Partial Thromboplastin Time 31.1 SECONDS (22.3-36.8)
--- NOTE | 2022-08-01 17:24 | PCHDNOTE ---
Received MD order for peritoneal dialysis. Pt refused to initiate tx at this time, pt to connect and disconnect herself, MD made aware and verbalized agreement. PD shearing machine tender per MD order, along with cycler set up, Pt to connect herself before bed.
[2022-08-01 18:19] LABS: Hepatitis B Surface Antigen Negative (Negative)
[2022-08-01] MEDS: CALCIUM ACETATE 667 MG TABLET PO (18:35)
[2022-08-01 18:36] LABS: Hepatitis B Surface Anti Res Negative
[2022-08-01] MEDS: CLOPIDOGREL BISULFATE 75 MG TABLET PO (18:39)
[2022-08-01] MEDS: METOPROLOL SUCCINATE EXT REL 12.5 MG TABCR PO (21:30)
[2022-08-01] MEDS: FAMOTIDINE 20 MG TABLET PO (21:31)
[2022-08-01] MEDS: HEPARIN SOD/D5W 100 UNITS/ML 25,000 UNITS/250 ML BAG 12 UNITS IV CONT (21:34)
[2022-08-01 22:57] LABS: Partial Thromboplastin Time > 200.0 SECONDS (22.3-36.8)
[2022-08-02] VITALS (11 sets, daily range): BP systolic 98–142; BP diastolic 40–60; PULSE 63–84; RESP 14–16; TEMP 36.4–36.6; O2SAT 98–100
[2022-08-02] MEDS: LEVOTHYROXINE SODIUM 112 MCG TABLET PO (05:53)
[2022-08-02 07:13] LABS: Basophils Absolute Auto 0.1 K/mm3 (0.0-0.1); Eosinophils Absolute Auto 0.2 K/mm3 (0-0.3); Eosinophils Percent Auto 4.4 % (0-4.4); Hematocrit 33.7 % (37.0-47.0); Hemoglobin 10.9 g/dL (12.0-15.0); Immature Granulocyte Absolute 0.01 K/mm3 (0.00-0.031); Immature Granulocyte Percent A 0.2 % (0-0.5); Lymphocytes Absolute Auto 0.83 K/mm3 (0.9-3.2); Lymphocytes Percent Auto 15.8 % (18.3-44.2); Mean Corpuscular HGB Conc 32.3 g/dl (32-36); Mean Corpuscular Hemoglobin 29.4 pg (26-34); Mean Corpuscular Volume 90.8 fl (80-100); Mean Platelet Volume 10.7 fl (7.4-10.4); Monocytes Absolute Auto 0.4 K/mm3 (0.1-0.6); Monocytes Percent Auto 7.4 % (2.6-8.5); Neutrophils Absolute Auto 3.8 K/mm3 (1.3-6.7); Neutrophils Percent Auto 71.2 % (45.5-73.1); Platelet Count Result 174 k/mm3 (150-375); Red Blood Count 3.71 M/mm3 (4.2-5.4); Red Cell Distribution Width 14.8 % (11.5-14.5); White Blood Count 5.3 K/mm3 (4.5-10.0)
[2022-08-02 07:25] LABS: Partial Thromboplastin Time 132.7 SECONDS (22.3-36.8)
[2022-08-02 07:34] LABS: Alanine Aminotransferase 24 U/L (6-35); Albumin Level 3.2 g/dL (3.5-5.1); Alkaline Phosphatase 51 U/L (38-126); Anion Gap 9 mmol/L (8-16); Aspartate Amino Transferase 21 U/L (14-36); Bilirubin,Total 0.3 mg/dL (0.2-1.3); Blood Urea Nitrogen 51 mg/dL (7-17); Calcium 7.3 mg/dL (8.4-10.2); Carbon Dioxide 26 mmol/L (22-30); Chloride 102 mmol/L (98-107); Estimated CRCL calculation 7 ml/min; Estimated Glomerular Filt Rate 6; Glucose 84 mg/dL (65-110); Lipase 182 U/L (23-300); Magnesium 2.2 mg/dL (1.6-2.3); Phosphorus 5.9 mg/dL (2.5-4.5); Potassium 3.5 mmol/L (3.4-5.0); Sodium 137 mmol/L (137-145)
--- NOTE | 2022-08-02 08:36 | PM.PNNEP ---
Progress Note: A&P Assessment and Plan (1) ESRD (end stage renal disease): Code(s): N18.6 - End stage renal disease Status: Chronic Assessment and Plan: continue nightly peritoneal dialysis this evening follow electrolytes, volume status, and clearance (2) NSTEMI (non-ST elevated myocardial infarction): Code(s): I21.4 - Non-ST elevation (NSTEMI) myocardial infarction Status: Acute Assessment and Plan: as noted by troponins and EKG findings Cardiology following on heparin gtt awaiting transfer to [place] for further evaluation/intervention (3) Anemia: Code(s): D64.9 - Anemia, unspecified Status: Chronic Assessment and Plan: due to ESRD H/H at goal start Epogen once Hgb < 10 (4) CAD (coronary artery disease): Code(s): I25.10 - Atherosclerotic heart disease of [place] coronary artery without angina pectoris Status: Chronic Assessment and Plan: s/p CABG 2019 PCI with stent placement 02/2022 recent PCI of the proximal saphenous vein graft to the LAD on 07/24/22 (5) Left shoulder pain: Code(s): M25.512 - Pain in left shoulder Status: Acute Assessment and Plan: same symptom that led to discover of previous NSTEMI a few weeks ago thought to be her anginal equivalent follow symptom (6) Hypocalcemia: Code(s): E83.51 - Hypocalcemia Status: Chronic Assessment and Plan: secondary to previous parathyroidectomy follow repeat calcium levels Will continue to follow. Subjective Date/time seen: 08/02/22 08:36 Tolerated peritoneal dialysis treatment overnight without any issues or problems but reports more left shoulder pain with the PD treatment -- she did not get a peritoneal dialysis treatment on the evening of admission and report left shoulder pain was better than; denies any other symptoms or problems at the time of my visit. Objective Data Vital Signs Vital Signs: Vital Signs Temp Pulse Resp BP Pulse Ox O2 Del Method 08/02/22 08:00 63 08/02/22 08:00 Room Air 08/02/22 08:38 36.6 C 63 16 98/40 L 08/02/22 08:29 36.6 C 63 16 98/40 L 100 08/02/22 06:00 84 08/02/22 04:00 36.4 C L 63 14 114/60 99 08/02/22 04:00 69 16 100 Room Air 08/02/22 04:00 69 08/02/22 02:00 63 08/02/22 00:00 71 16 100 Room Air 08/02/22 00:00 71 08/02/22 00:00 36.4 C 69 16 142/57 H 100 08/01/22 22:00 68 08/01/22 20:00 69 08/01/22 20:00 67 16 100 Room Air 08/01/22 21:30 67 08/01/22 20:00 37.4 C 79 16 106/49 L 100 08/01/22 18:00 76 Intake/Output Intake/Output: Intake & Output 07/30/22 07/31/22 08/01/22 08/02/22 23:59 23:59 23:59 23:59 Intake Total 1310 930 Output Total 300 1058 Balance 1010 -128 Meds/Results Radiology Results: ITS Impressions Chest X-Ray 07/31/22 08:23 IMPRESSION: 1. Opacities in the left lower lung zone which could represent atelectasis, pneumonia, small pleural effusion or some combination thereof. Labs Labs: Laboratory Tests 08/02/22 06:49 08/02/22 06:49 Quality Patient tolerated peritoneal dialysis treament overnight ([id number]).
[2022-08-02] MEDS: CALCIUM ACETATE 667 MG TABLET PO ×2 (09:23→12:31)
[2022-08-02] MEDS: ASPIRIN 81 MG ENTERIC TABLET PO (09:23)
[2022-08-02] MEDS: CLOPIDOGREL BISULFATE 75 MG TABLET PO (09:23)
[2022-08-02] MEDS: MULTIVITAMINS THERAPEUTIC TAB (*BKC) 1 TABLET PO (09:23)
[2022-08-02] MEDS: FAMOTIDINE 20 MG TABLET PO (09:23)
--- NOTE | 2022-08-02 11:23 | PM.IMPN ---
Progress Note: A&P Assessment and Plan (1) NSTEMI (non-ST elevated myocardial infarction): Code(s): I21.4 - Non-ST elevation (NSTEMI) myocardial infarction Status: Acute Assessment and Plan: Patieint presents with complaints of left shoulder pain very similar to prior presentation when she was found to have in-stent restenosis. Trop elevated to 0.087. EKG showing anterolateral T-wave inversions. Concerning for impending LAD graft occlusion. Heparin gtt started on admission - contine the same. Continue active medical management for CAD with Plavix, ASA, Toprol. Not sure why she isn't on statin therapy. If no reason, will start. (2) CAD (coronary artery disease): Code(s): I25.10 - Atherosclerotic heart disease of [place] coronary artery without angina pectoris Status: Acute Assessment and Plan: As above. Continue aggressive medical managment (3) ESRD (end stage renal disease): Code(s): N18.6 - End stage renal disease Status: Acute Assessment and Plan: Patient with ESRD on PD which began in December. She actually is a candidate for transplant despite her leaky aortic valve if her EF improves to close to normal (EF 51% last admission at [place]). Avoid blood transfusion. Nephrology consulted. CT A/P on 07/20 showing no acute findings. Left shoulder pain is pleuritic so consider related to PD. Check PD culture. (4) Polycystic renal disease: Code(s): Q61.3 - Polycystic kidney, unspecified Status: Acute Assessment and Plan: Hx of PCKD. CT A/P also showing numerous cyst in the liver as well. She makes some urine. Follow (5) CHF (congestive heart failure): Qualifiers: Heart failure type: unspecified Heart failure chronicity: chronic Qualified Code(s): I50.9 - Heart failure, unspecified Code(s): I50.9 - Heart failure, unspecified Status: Chronic Assessment and Plan: CXR showing opacity in the left lower lobe wither atelectasis, PNA and/or effusion. She had this present. This as seen last admission and CTA at that time showed effusion. Suspect related to leaky diaphragm and dialysate leaking under left diaphragm. Otherwise no evidence of CHF exacerbation. EF has improved since February. Continue medical management. (6) Aortic stenosis: Code(s): I35.0 - Nonrheumatic aortic (valve) stenosis Status: Acute Assessment and Plan: Patient with aortic stenosis s/p AVR that was complicated by paravalvular AI. She has had 2nd opinions but not much can be done to repair this. No recent Echo here. Plan DVT Prophylaxis: Heparin Code status: full Diet: renal, heart healthy Subjective Date/time seen: 08/02/22 11:23 Interval history: 51yo female with CAD, ESRD and aortic valve disease here for left shoulder pain concerning for anginal equivalent. Woke up agian this morning with left pleuritic chest pain. She did do PD last night and felt that the pain may be related to PD. Some blood in the peritoneal fluid but not uncommon for her. Otherwise no abd pain or cloudy PD fluid. Exam Narrative: AF 97.9 98/40 63 16 100% ra Gen - NARD Chest - left base inspiratory crackles o/w clear. Nml RR. CV - RRR S1/S2. 3/6 systolic murmur. Tele showing occasional paced rhythm Abd - soft, diffuse pain but no guarding or rebound. PD cath site clean and dry Ext - no pedal edema. 2+ DP pulses bilaterally. Neuro - nonfocal Psych - normal mood and affect. Skin - warm and dry Objective Data Vital Signs Vital Signs: Vital Signs - 24 hr 08/01/22 11:51 08/01/22 16:00 08/01/22 16:10 Temperature 97.8 F 98.4 F 97.8 F Pulse Rate 65 63 65 Respiratory Rate 16 18 16 Blood Pressure 112/46 L 109/55 L 112/46 L Pulse Oximetry 98 100 98 Oxygen Delivery Room Air 08/01/22 12:00 08/01/22 14:00 08/01/22 16:00 Temperature Pulse Rate 66 65 64 Respiratory Rate Blood Pressure Pulse Oximetry Oxygen Delivery
--- NOTE | 2022-08-02 11:50 | PM.PNCARD ---
Progress Note: A&P Assessment and Plan (1) CAD (coronary artery disease): Code(s): I25.10 - Atherosclerotic heart disease of [place] coronary artery without angina pectoris Status: Acute (2) ESRD (end stage renal disease): Code(s): N18.6 - End stage renal disease Status: Acute (3) Polycystic renal disease: Code(s): Q61.3 - Polycystic kidney, unspecified Status: Acute (4) Chest pain: Code(s): R07.9 - Chest pain, unspecified Status: Acute (5) NSTEMI (non-ST elevated myocardial infarction): Code(s): I21.4 - Non-ST elevation (NSTEMI) myocardial infarction Status: Acute Plan Continue medical management with Heparin drip, ASA, Plavix. Transfer to [facility] pending. Subjective Date/time seen: 08/02/22 11:50 Interval history: CC / Reason for visit: Chest pain. Patient reports her left shoulder pain was okay yesterday, but today it feels like it's hurting more. No other symptoms. Still waiting on transfer to [facility]. Review of Systems Review of Systems: All systems reviewed & are unremarkable except as noted in HPI and below (subjective) Exam Const: General: comfortable and no acute distress HENMT: Mouth: Yes moist mucous membranes Eyes: General: appearance normal, both eyes and all related structures Neck: Neck: no JVD Resp: Effort & Inspection: normal respiratory effort Auscultation: clear to auscultation bilaterally Cardio: Rate: regular rate Rhythm: regular rhythm Other: 3/6 diastolic murmur Neuro: Speech: normal speech Extrem: General: no edema Psych: Mental Status: mental status grossly normal Objective Data Vital Signs Vital Signs: Vital Signs - 24 hr 08/01/22 11:51 08/01/22 16:00 08/01/22 16:10 Temperature 36.6 C 36.9 C 36.6 C Pulse Rate 65 63 65 Respiratory Rate 16 18 16 Blood Pressure 112/46 L 109/55 L 112/46 L Pulse Oximetry 98 100 98 Oxygen Delivery Room Air 08/01/22 12:00 08/01/22 14:00 08/01/22 16:00 Temperature Pulse Rate 66 65 64 Respiratory Rate Blood Pressure Pulse Oximetry Oxygen Delivery 08/01/22 12:00 08/01/22 16:00 08/01/22 18:00 Temperature Pulse Rate 76 Respiratory Rate Blood Pressure Pulse Oximetry Oxygen Delivery Room Air Room Air 08/01/22 20:00 08/01/22 21:30 08/01/22 20:00 Temperature 37.4 C Pulse Rate 79 67 67 Respiratory Rate 16 16 Blood Pressure 106/49 L Pulse Oximetry 100 100 Oxygen Delivery Room Air 08/01/22 20:00 08/01/22 22:00 08/02/22 00:00 Temperature 36.4 C Pulse Rate 69 68 69 Respiratory Rate 16 Blood Pressure 142/57 H Pulse Oximetry 100 Oxygen Delivery 08/02/22 00:00 08/02/22 00:00 08/02/22 02:00 Temperature Pulse Rate 71 71 63 Respiratory Rate 16 Blood Pressure Pulse Oximetry 100 Oxygen Delivery Room Air 08/02/22 04:00 08/02/22 04:00 08/02/22 04:00 Temperature 36.4 C L Pulse Rate 69 69 63 Respiratory Rate 16 14 Blood Pressure 114/60 Pulse Oximetry 100 99 Oxygen Delivery Room Air 08/02/22 06:00 08/02/22 08:29 08/02/22 08:38 Temperature 36.6 C 36.6 C Pulse Rate 84 63 63 Respiratory Rate 16 16 Blood Pressure 98/40 L 98/40 L Pulse Oximetry 100 Oxygen Delivery 08/02/22 08:00 08/02/22 08:00 08/02/22 10:00 Temperature Pulse Rate 63 72 Respiratory Rate Blood Pressure Pulse Oximetry Oxygen Delivery Room Air Intake/Output Intake/Output: Intake & Output 07/30/22 07/31/22 08/01/22 08/02/22 23:59 23:59 23:59 23:59 Intake Total 1310 690 Output Total 300 1058 Balance 1010 -368 Meds/Results Medications: Active Medications Generic Name Dose Route Start Last Admin Trade Name Freq PRN Reason Stop Dose Admin Acetaminophen 650 mg 08/01/22 07:46 Acetaminophen 325 Mg Tablet PO Q4H PRN Mild Pain (1-3) or Fever Hydrocodone Bitart/Acetaminophen 1 tab 08/01/22 07:46 08/01/22 10:43 Hydrocodone/Acetaminop
--- NOTE | 2022-08-02 18:20 | PM.TDS ---
Transfer Discharge Sum: Prov Provider Date of admission: 08/02/22 09:40 Primary care physician: Pal Downey DO Admitting clinician: Arturo Dewey MD Consults: 08/01/22 07:49 Consult to Physician Routine Comment: Called office and notified them of consult Consulting Provider: Tanesha De Santiago call box wirer/MD group to consult: eric Reason for consultation: chest pain Has provider been notified: Yes 08/01/22 12:17 Consult to Physician Routine Comment: Spoke with and notified him of consult Consulting Provider: Ezekiel Diaz call box wirer/MD group to consult: nephrology Reason for consultation: ESRD Has provider been notified: Yes DS: Admitting Diagnosis Discharge Date 08/02/22 Admitting Diagnosis Left shoulder pain DS: Discharge Diagnosis Discharge Diagnosis (1) NSTEMI (non-ST elevated myocardial infarction): Code(s): I21.4 - Non-ST elevation (NSTEMI) myocardial infarction Status: Acute (2) CAD (coronary artery disease): Code(s): I25.10 - Atherosclerotic heart disease of [place] coronary artery without angina pectoris Status: Chronic (3) ESRD (end stage renal disease): Code(s): N18.6 - End stage renal disease Status: Chronic (4) Polycystic renal disease: Code(s): Q61.3 - Polycystic kidney, unspecified Status: Acute (5) CHF (congestive heart failure): Qualifiers: Heart failure type: unspecified Heart failure chronicity: chronic Qualified Code(s): I50.9 - Heart failure, unspecified Code(s): I50.9 - Heart failure, unspecified Status: Chronic (6) Aortic stenosis: Code(s): I35.0 - Nonrheumatic aortic (valve) stenosis Status: Acute Transfer Discharge Sum: Med Medications Active and Home Medications: Home Medications aspirin 81 mg tablet,delayed release 81 mg PO HS 08/27/19 [History Confirmed 08/01/22] potassium chloride 20 mEq tablet,extended release 20 meq PO DAILY PRN Edema 11/23/19 [History Confirmed 08/01/22] furosemide 40 mg tablet (Lasix) 80 mg PO DAILY PRN Edema 12/01/19 [History Confirmed 08/01/22] albuterol sulfate 90 mcg/actuation aerosol inhaler (ProAir HFA) 2 puff inhalation Q4-6H PRN shortness of breath or wheezing #18 grams 09/25/21 [Rx Confirmed 08/01/22] calcitriol 0.5 mcg capsule (Rocaltrol) 0.5 mcg PO WEEKLY #90 caps 03/16/22 [Rx Confirmed 08/01/22] calcium acetate(phosphat bind) 667 mg capsule 667 mg PO TIDWM 08/01/22 [History Confirmed 08/01/22] clopidogrel 75 mg tablet (Plavix) 75 mg PO DAILY 08/01/22 [History Confirmed 08/01/22] gentamicin 0.1 % topical cream 1 applic topical DAILY 08/01/22 [History Confirmed 08/01/22] inulin 2 gram chewable tablet (Fiber Gummies) 2 g PO DAILY 08/01/22 [History Confirmed 08/01/22] levothyroxine 112 mcg tablet 112 mcg PO DAILY 08/01/22 [History Confirmed 08/01/22] loratadine 10 mg tablet (Claritin) 10 mg PO DAILY PRN Allergy Symptoms 08/01/22 [History Confirmed 08/01/22] metoprolol succinate 25 mg tablet,extended release 24 hr 12.5 mg PO HS 08/01/22 [History Confirmed 08/01/22] multivitamin 1 tablet PO DAILY 08/01/22 [History Confirmed 08/01/22] nitroglycerin 0.4 mg sublingual tablet 0.4 mg sublingual Q5M PRN Pain 08/01/22 [History Confirmed 08/01/22] Transfer Discharge Sum: Hosp Hospital Course Hospital course: Ginger Marshall is a 51yo female with CAD, ESRD and aortic valve disease here for left shoulder pain concerning for anginal equivalent. Please see H&P for details. Patieint presents with complaints of left shoulder pain very similar to prior presentation when she was found to have in-stent restenosis. Trop elevated to 0.087. EKG showing anterolateral T-wave inversions which are new findings when compared to earlier this month. Concerning for impending LAD graft occlusion. [facility] was notified out of the ED. Heparin gtt started on admission. We continued her medical management for CAD with Plavix, ASA, Toprol. She is int
== END 2022-08-02 16:00 | disposition short-term general hospital (02) | DRG 280 ==
LOC: ANHED 08-01 07:52 → ANHIMU 08-01 08:34
PROVIDERS: General Practice; Internal Medicine Cardiovascular Disease; Internal Medicine Nephrology; Admitting Provider Internal Medicine; Emergency Provider Emergency Medicine; PCP Internal Medicine; Visit Provider Internal Medicine
DX: I22.2 Subsequent non-ST elevation (NSTEMI) myocardial infarction (principal); N18.6 End stage renal disease; Q61.3 Polycystic kidney, unspecified; I21.4 Non-ST elevation (NSTEMI) myocardial infarction; I50.9 Heart failure, unspecified; I25.5 Ischemic cardiomyopathy; I25.10 Atherosclerotic heart disease of native coronary artery without angina pectoris; I27.20 Pulmonary hypertension, unspecified; J44.9 Chronic obstructive pulmonary disease, unspecified; D63.1 Anemia in chronic kidney disease; E83.51 Hypocalcemia; M25.512 Pain in left shoulder; Z20.822 Contact with and (suspected) exposure to COVID-19; Z99.2 Dependence on renal dialysis; Z95.0 Presence of cardiac pacemaker; Z95.2 Presence of prosthetic heart valve; Z95.1 Presence of aortocoronary bypass graft; Z95.5 Presence of coronary angioplasty implant and graft; Z79.01 Long term (current) use of anticoagulants; Z86.010 Personal history of colon polyps; Z87.891 Personal history of nicotine dependence; Z92.3 Personal history of irradiation; Z85.89 Personal history of malignant neoplasm of other organs and systems
CPT/HCPCS: 36415; 71046; 80053; 83690; 83735; 84100; 84484; 85025; 85610; 85730; 86706; 87340; 93005; 96365; 96366; 96375; 99285; A9270; C9803; G0378; J1644; J3010; U0003; U0005

== ENCOUNTER 2023-02-15 10:28 | Observation (INO) | payer OTHER, MEDICAID, SELFPAY ==
[2023-02-15] VITALS (40 sets, daily range): BP systolic 100–125; BP diastolic 60–84; PULSE 73–107; RESP 14–24; TEMP 36.5–36.6; O2SAT 91–100
--- NOTE | ~2023-02-15 | XR_ITS ---
Portable chest x-ray Comparison: 07/31/2022 Clinical History: Dyspnea Findings: Small left pleural effusion present with probable mild bibasilar pulmonary edema. Probable COPD pattern. Cardiomediastinal silhouette is stable, status post aortic valve replacement with pace maker device. Bones and soft tissues are unremarkable. Impression: Small left pleural effusion with probable mild bibasilar pulmonary edema. Probable COPD. Status post aortic valve placement with pacemaker device. Reviewed, dictated and finalized at [facility]. Impression: Small left pleural effusion with probable mild bibasilar pulmonary edema. Probable COPD. Status post aortic valve placement with pacemaker device.
--- NOTE | ~2023-02-15 | CT_ITS ---
EXAMINATION: CTA chest PE protocol DATE: 02/15/2023 14:13 INDICATION: Shortness of breath, tachycardia TECHNIQUE: Computed tomography angiography (CTA) of the chest was performed with 100 mL Omnipaque-350 intravenous contrast timed to evaluate the pulmonary arteries. Coronal maximum intensity projection 3D-reconstructions were created by the technologist. The dose-length product (DLP) was 133.16 mGy-cm. Automated exposure control and iterative reconstruction technique were employed. COMPARISON: 07/21/2022 FINDINGS: The pulmonary arteries are well-opacified. No pulmonary embolism is identified. Again noted is total occlusion of the proximal left subclavian artery. There are small, chronic pleural effusion s with decrease in size. There are changes of aortic valve replacement. The heart size is normal. Aleks ateral breast implants are noted. There is mild smooth interlobular septal thickening in the lung bas es with subtle associated groundglass opacity. A dual-lead cardiac pacemaker of the right chest wall ends with leads in expected locations. Innumerable cysts are again noted in the liver. There is exagg erated kyphosis and severe spondylosis of the upper thoracic spine. There is mild mediastinal and aleks ateral hilar lymphadenopathy, likely reactive. There is questionable wall thickening of the esophagus . IMPRESSION: 1. No pulmonary embolus. 2. Mild pulmonary edema. 3. Possible esophageal wall thickening. 4. Small pleural effusions. Reviewed, dictated and finalized at location [facility].
--- NOTE | 2023-02-15 10:39 | PC.NURSE ---
unable to obtain pulse ox in triage.pt reports it is generally difficult to obtain pulse ox reading on her. attempted multiple forms. pt to rm 13 in wheelchair.
--- NOTE | 2023-02-15 11:15 | ECG_ITS ---
Measurements Intervals [place] Rate: 79 P: 27 CT: 98 QRS: -13 QRSD: 86 T: 124 QT: 416 QTc: 479 Interpretive Statements SINUS RHYTHM WITH SHORT CT INTERVAL CANNOT RULE OUT SEPTAL MYOCARDIAL INFARCTION , OF INDETERMINATE AGE [40+ ms Q WAVE IN V1/V2] MODERATE T-WAVE ABNORMALITY, CONSIDER LATERAL ISCHEMIA [-0.1+ mV T WAVE IN I/aVL/V5/V6] COMPARED TO ECG 07/31/2022 10:45:52 SINUS RHYTHM NOW PRESENT Electronically Signed On 02-15-2023 12:59:10 CDT by Delaney Saenz M.D.
--- NOTE | 2023-02-15 11:21 | ED.URI ---
HPI - URI/Sore Throat General Chief Complaint: Upper Respiratory Infection Stated Complaint: sob Time Seen by Provider: 02/15/23 11:01 History of Present Illness HPI Narrative: 52-year-old female with a history of CAD, ESRD on peritoneal dialysis, PKD, NSTEMI, pulmonary hypertension, restrictive lung disease, asthma and COPD reports for evaluation of cough, dyspnea, congestion, subjective fever, body aches and chills for the past 4 days. Patient reports she was started on azithromycin 3 days ago and has not had any improvement. Denies chest pain, back pain, headache, focal numbness or weakness, abdominal pain, vomiting, diarrhea, lower extremity edema. Patient also complaining of nausea. Pt has peritoneal dialysis nightly, last dialysis was last night. Pt reports making 500ccs of urine daily. Related Data Home Medications Medication Instructions Recorded Confirmed aspirin 81 mg tablet,delayed 81 mg PO HS 08/27/19 11/19/22 release potassium chloride 20 mEq 20 meq PO DAILY PRN Edema 11/23/19 11/19/22 tablet,extended release furosemide 40 mg tablet (Lasix) 80 mg PO DAILY PRN Edema 12/01/19 11/19/22 calcium acetate(phosphat bind) 667 667 mg PO TIDWM 08/01/22 11/19/22 mg capsule clopidogrel 75 mg tablet (Plavix) 75 mg PO DAILY 08/01/22 11/19/22 gentamicin 0.1 % topical cream 1 applic topical DAILY 08/01/22 11/19/22 inulin 2 gram chewable tablet 2 g PO DAILY 08/01/22 11/19/22 (Fiber Gummies) loratadine 10 mg tablet (Claritin) 10 mg PO DAILY PRN Allergy Symptoms 08/01/22 11/19/22 metoprolol succinate 25 mg 12.5 mg PO HS 08/01/22 11/19/22 tablet,extended release 24 hr multivitamin 1 tablet PO DAILY 08/01/22 11/19/22 nitroglycerin 0.4 mg sublingual 0.4 mg sublingual Q5M PRN Pain 08/01/22 11/19/22 tablet mirtazapine 7.5 mg tablet 7.5 mg PO 11/19/22 11/19/22 Allergies Allergy/AdvReac Type Severity Reaction Status Date / Time amoxicillin Allergy Severe Difficulty Verified 02/15/23 11:37 Breathing egg Allergy Severe STOPPED Verified 02/15/23 11:37 BREATHING Penicillins Allergy Severe Stopped Verified 02/15/23 11:37 Breathing ciprofloxacin Allergy Intermediate Fever Verified 02/15/23 11:37 bass Allergy Unknown Swelling Verified 02/15/23 11:37 clarithromycin Allergy Unknown WAS CHILD Verified 02/15/23 11:37 UNKNOWN REACTION Macrolide Antibiotics Allergy Unknown NO IDEA Verified 02/15/23 11:37 tree nut Allergy Unknown Vomiting Verified 02/15/23 11:37 morphine Allergy Itching Verified 02/15/23 11:37 Review of Systems Review of Systems: CONSTITUTIONAL: Denies fever, chills EYES: Denies visual changes, redness, or discharge. ENT: Denies rhinorrhea, congestion, sore throat, or otalgia. CARDIOVASCULAR: Denies chest pain, palpitations, or edema. RESPIRATORY: See HPI GASTROINTESTINAL: Denies abdominal pain, nausea, vomiting, or diarrhea. GENITOURINARY: Denies dysuria or hematuria. SKIN: Denies rash or itching. MUSCULOSKELETAL: Denies back pain, joint pain, or myalgia. NEUROLOGIC: Denies headache, numbness, dizziness, or weakness. PSYCHIATRIC: Denies anxiety or depression. [facility] Past Medical History Medical History Aortic stenosis Bicuspid aortic valve. 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 She underwent left thoracotomy, chemotherapy and radiation. Pacemaker Patient developed bradycardia with sick sinus syndrome requiring pacemaker on 05/15/2019.
[2023-02-15 11:22] LABS: Influenza A QL RT-PCR Negative (Negative); Influenza B QL RT-PCR Negative (Negative); RSV RNA, RT-PCR Negative (Negative); SARS-CoV-2 RNA PCR Negative (Negative)
[2023-02-15] MEDS: IPRATROPIUM BR 0.02% INH SOLN 0.5 MG/2.5 ML VIAL INHALATION ×2 (11:40→19:40)
[2023-02-15] MEDS: LEVALBUTEROL NEB 1.25 MG/3 ML INHALATION ×3 (11:40→12:05)
--- NOTE | 2023-02-15 11:53 | PC.NURSE ---
RT at bedside to administer ordered breathing tx.
[2023-02-15] MEDS: ONDANSETRON INJ 4 MG/2 ML VIAL IV PUSH (12:05)
[2023-02-15] MEDS: methylPREDNISolone SOD SUCC 125 MG VIAL IV PUSH (12:05)
[2023-02-15 12:12] LABS: Basophils Percent Auto 0.5 % (0.2-1.2); Eosinophils Absolute Auto 0.1 K/mm3 (0-0.3); Eosinophils Percent Auto 2.5 % (0-4.4); Hematocrit 42.4 % (37.0-47.0); Hemoglobin 13.1 g/dL (12.0-15.0); Immature Granulocyte Absolute 0.01 K/mm3 (0.00-0.031); Immature Granulocyte Percent A 0.3 % (0-0.5); Lymphocytes Absolute Auto 0.74 K/mm3 (0.9-3.2); Lymphocytes Percent Auto 18.8 % (18.3-44.2); Mean Corpuscular HGB Conc 30.9 g/dl (32-36); Mean Corpuscular Hemoglobin 28.3 pg (26-34); Mean Corpuscular Volume 91.6 fl (80-100); Mean Platelet Volume 11.1 fl (7.4-10.4); Monocytes Absolute Auto 0.3 K/mm3 (0.1-0.6); Monocytes Percent Auto 8.7 % (2.6-8.5); Neutrophils Absolute Auto 2.7 K/mm3 (1.3-6.7); Neutrophils Percent Auto 69.2 % (45.5-73.1); Platelet Count Result 104 k/mm3 (150-375); Red Blood Count 4.63 M/mm3 (4.2-5.4); Red Cell Distribution Width 15.2 % (11.5-14.5); White Blood Count 3.9 K/mm3 (4.5-10.0)
[2023-02-15 12:16] LABS: Strep Group A RT-PCR NOT DETECTED (Negative)
[2023-02-15 12:24] LABS: Alanine Aminotransferase 22 U/L (6-35); Albumin Level 3.6 g/dL (3.5-5.1); Alkaline Phosphatase 54 U/L (38-126); Anion Gap 13 mmol/L (8-16); Aspartate Amino Transferase 26 U/L (14-36); Bilirubin,Total 0.5 mg/dL (0.2-1.3); Blood Urea Nitrogen 59 mg/dL (7-17); Calcium 6.4 mg/dL (8.4-10.2); Carbon Dioxide 25 mmol/L (22-30); Chloride 99 mmol/L (98-107); Estimated CRCL calculation 6 ml/min; Estimated Glomerular Filt Rate 5; Glucose 76 mg/dL (65-110); Magnesium 2.4 mg/dL (1.6-2.3); Potassium 3.5 mmol/L (3.4-5.0); Sodium 137 mmol/L (137-145)
[2023-02-15 12:37] LABS: Troponin I 0.059 ng/mL (0.000-0.034)
[2023-02-15 12:41] LABS: NT Pro B Type Natriuretic Pept > 30000 pg/mL (19.9-100)
[2023-02-15 13:12] LABS: Phosphorus 6.9 mg/dL (2.5-4.5)
[2023-02-15 13:44] LABS: Appearance Urine Cloudy (Clear); Bacteria Urine 4+ /hpf; Bilirubin Urine Negative (Negative); Blood Urine 3+ (Negative); Color Urine Yellow (Yellow); Glucose Urine UA Negative (Negative); Ketones Urine Negative (Negative); Leukocyte Esterase Ur 2+ LEU/UL (Negative); Nitrate Urine Negative (Negative); Non Pathogenic Casts 0-2; Protein Urine 2+ mg/dL (Negative); RBC Urine 21-50 /hpf (0-2); Specific Grav Ur 1.013 (1.001-1.035); Squamous Epithelial Cell Urine Few /hpf (Few); Urobilinogen Urine 0.2 mg/dL (<2.0); WBC Urine 21-50 /hpf; pH Urine 6.5 (5.0-9.0)
[2023-02-15 13:49] LABS: Add Urine Microscopic? YES
--- NOTE | 2023-02-15 14:10 | PC.NURSE ---
Patient off unit to CT.
[2023-02-15] MEDS: CALCIUM GLUC 1,000 MG/NS 50 ML 1,000 MG/50 ML BAG 100 MG IVPB (14:39)
[2023-02-15] MEDS: ASPIRIN 81 MG CHEWABLE TABLET 324 MG PO (15:06)
[2023-02-15] MEDS: SULFAMETHOXAZOLE/TRIMETHOPRIM 400/80 MG TABLET 1 TAB PO (15:06)
--- NOTE | 2023-02-15 19:00 | PC.NURSE ---
Assumed care of pt. at this time. Report from TONO Hirsch
[2023-02-15 19:09] LABS: Troponin I 0.055 ng/mL (0.000-0.034)
--- NOTE | 2023-02-15 19:20 | PC.NURSE ---
Per JULIET Bean pt. to be discharged from facility after breathing tx.
--- NOTE | 2023-02-15 19:28 | PC.NURSE ---
Patient report given to TONO Bailey and TONO Jessica. All questions answered and care of patient transferred.
--- NOTE | 2023-02-15 19:34 | PM.SD2 ---
Same Day Admit/Disch: HPI History of Present Illness Chief complaint: Dyspnea Narrative: This is a very pleasant 52-year-old female with an unfortunate medical history to include polycystic kidney disease on peritoneal dialysis for the past year, coronary artery disease status post single-vessel bypass to the LAD with history of PCI to the ostium of the graft in February 2022, cardiomyopathy with ejection fraction of around 45 to 50%, severe aortic stenosis status post bioprosthetic aortic valve replacement in 2018, neuroblastoma status post chest radiation with marked pectus deformities and radiation adhesions/fibrosis, restrictive lung disease, hypothyroidism, dyslipidemia, and history of DVT and pulmonary embolism who presented to the emergency department via private vehicle from home for evaluation of cough and shortness of breath. The patient provides the following history. She has not been feeling well for about 4 days with subjective fever, chills, sinus congestion, nonproductive cough, mild nausea, sore throat, and intermittent chest tightness due to feelings of the inability to take in a deep breath. She was started on a Zithromax in 3 days ago but has not had any improvement from that. She has a rescue inhaler at home and has been using it frequently with lesser and lesser benefit. She denies documented fever, headache, neck ache, exertional chest pain, pleuritic pain, vomiting, diarrhea, and dysuria. [facility] Past Medical History Medical History (Updated 02/16/23 @ 00:48 by Geneva Walters PA-C) Aortic stenosis Bicuspid aortic valve. Status post aortic valve replacement on 02/11/2019 that resulted in perivalvular regurgitation. 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 She underwent left thoracotomy, chemotherapy and radiation. Pacemaker Patient developed bradycardia with sick sinus syndrome requiring pacemaker on 05/15/2019. 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 Polycystic renal disease Pulmonary hypertension Raynaud phenomenon Restrictive lung disease Surgical History Surgical History History of aortic valve replacement History of section History of hysterectomy History of thyroidectomy History of two vessel coronary artery bypass graft Hx of heart artery stent S/P colonoscopic polypectomy 2020 Family History Family History Father Hypertension Family history of coronary artery disease, Onset Age: 57 Mother Hypertension Cerebrovascular accident Family history of malignant neoplasm Family history of kidney disease Grandparent Family history of kidney disease Social History Social History (Updated 02/16/23 @ 00:49 by Geneva Walters PA-C) Social History: Surrogate medical decision maker: Kennedy Alex, significant other. Code status: Full code. Smoking packs per day: 1 Smoking cigarettes per day: 20.0 Years smoked: 25 Smoking pack-years: 25.00 Smoking status: Current some day smoker Tobacco type: cigarettes and e-cigarettes/vaping Second hand tobacco smoke exposure: Yes Smoking end date: 04/01/12 Alcohol intake: never Substance use: never Lack of Transportation: No Lack of Food: Never True Current Housing: I Have Housing Concerned About Future Housing: No Difficulty Paying Gas/Electric Bills: YES Difficulty Paying for Meds: No Currently Unemployed: No Education: Trade/Vocational Certificate Difficulty w/ Childcare or Family Car
[2023-02-15] MEDS: LEVALBUTEROL NEB 1.25 MG/3 ML 0.63 MG INHALATION (19:40)
== END 2023-02-15 21:10 | disposition home or self-care (01) ==
LOC: ANHED 14:39 → ANHIMU 15:50
PROVIDERS: Emergency Medicine; Admitting Provider Internal Medicine; Emergency Provider Physician Assistant; PCP Internal Medicine; Visit Provider Internal Medicine
DX: I25.10 Atherosclerotic heart disease of native coronary artery without angina pectoris (principal); Z95.1 Presence of aortocoronary bypass graft; N18.6 End stage renal disease; Z99.2 Dependence on renal dialysis; Z20.822 Contact with and (suspected) exposure to COVID-19; Q61.3 Polycystic kidney, unspecified; R77.8 Other specified abnormalities of plasma proteins; I25.2 Old myocardial infarction; N30.01 Acute cystitis with hematuria; Q23.1 Congenital insufficiency of aortic valve; E83.51 Hypocalcemia; J45.909 Unspecified asthma, uncomplicated; I50.9 Heart failure, unspecified; E03.9 Hypothyroidism, unspecified; I25.5 Ischemic cardiomyopathy; Z95.0 Presence of cardiac pacemaker; J38.00 Paralysis of vocal cords and larynx, unspecified; I73.00 Raynaud's syndrome without gangrene; J81.1 Chronic pulmonary edema; J98.4 Other disorders of lung; F17.210 Nicotine dependence, cigarettes, uncomplicated; Z85.831 Personal history of malignant neoplasm of soft tissue; Z79.82 Long term (current) use of aspirin; Z79.01 Long term (current) use of anticoagulants; Z79.4 Long term (current) use of insulin; Z79.899 Other long term (current) drug therapy
CPT/HCPCS: 36415; 71045; 71275; 80053; 81001; 83735; 83880; 84100; 84484; 85025; 87086; 87147; 87181; 87186; 87637; 87651; 93005; 94640; 96365; 96375; 99285; A9270; G0378; J0612; J2405; J2930; Q9967

== ENCOUNTER 2023-05-10 14:49 | Inpatient (IN) | payer OTHER, MEDICAID, SELFPAY ==
[2023-05-10] VITALS (40 sets, daily range): BP systolic 100–148; BP diastolic 58–96; PULSE 75–100; RESP 15–24; TEMP 36.5–36.6; O2SAT 87–100; BMI 19.9
--- NOTE | ~2023-05-10 | CT_ITS ---
EXAMINATION: CTA chest PE abdomen DATE: 05/11/2023 21:45 INDICATION: Chest pain. Possible pulmonary embolism. TECHNIQUE: Computed tomographic angiography (CTA) of the chest and abdomen was performed without and with 100 mL Omnipaque-350 intravenous contrast. The dose-length product was 353.22 mGy-cm. Maximum in tensity projection 3D-reconstructions of the aorta and other arteries were constructed by the technol meghna on a separate workstation. COMPARISON: CT dated 02/15/2023. FINDINGS: CHEST CTA: Study technically adequate without evidence for pulmonary embolism. There is extensive atherosclerosi s of the aorta. There are changes of aortic valve replacement. There are bilateral breast implants. N o right pleural or pericardial effusion. Heart size normal. There is dependent atelectasis. There is kyphoscoliosis. Status post median sternotomy for CABG. ABDOMEN CTA: There are innumerable liver and bilateral renal cysts, consistent with adult polycystic kidney diseas e. The spleen, pancreas, adrenal glands are unremarkable. Nonobstructive bowel pattern. No evidence f or abdominal aortic aneurysm. No significant lymphadenopathy. IMPRESSION: 1. No evidence for pulmonary embolism. 2: Small left pleural effusion with underlying compressive atelectasis. 3: Small hiatal hernia with mild thickening of the distal esophagus. Cannot exclude esophagitis. 4: Adult polycystic kidney disease.0 Reviewed, dictated and finalized at location A. IMPRESSION: 1. No evidence for pulmonary embolism. 2: Small left pleural effusion with underlying compressive atelectasis. 3: Small hiatal hernia with mild thickening of the distal esophagus. Cannot ex clude esophagitis. 4: Adult polycystic kidney disease.0
--- NOTE | ~2023-05-10 | US_ITS ---
EXAMINATION: US venous doppler UE DATE: 05/15/2023 15:04 INDICATION: Evaluate for DVT. Smoker. History of coronary artery disease. TECHNIQUE: Sanders scale images with and without compression and Doppler images of the right and left up per extremity veins were obtained. COMPARISON: None. FINDINGS: The internal jugular vein, subclavian vein, axillary vein, brachial veins, basilic vein, cephalic vei n, radial vein, and ulnar vein are patent. IMPRESSION: 1. Patent bilateral upper extremity veins. No evidence of deep venous thrombosis. Reviewed, dictated and finalized at location A. IMPRESSION: 1. Patent bilateral upper extremity veins. No evidence of deep venous thrombosi s.
--- NOTE | ~2023-05-10 | XR_ITS ---
EXAMINATION: XR abdomen obstructive series DATE: 05/12/2023 11:10 INDICATION: Evaluate for dialysis catheter placement and free air. TECHNIQUE: Supine and upright views of the abdomen. FINDINGS: CT dated 05/11/2023 The visualized lung parenchyma is normal.. There is a nonobstructive bowel gas pattern. Gas and stool are seen throughout the colon to the level of the rectum. There is no free air. There is a peritone al dialysis catheter coiled in the pelvis. There is residual contrast in the renal collecting systems . There is a left pleural effusion with underlying compressive atelectasis. Interstitial infiltrates of the lung bases, suspicious for mild edema. There is scoliosis. IMPRESSION: 1. No acute abdominal abnormality. 2: Peroneal dialysis catheter coiled in the bladder. 3: Small left pleural effusion with underlying compressive atelectasis. Possible mild interstitial ed tamela. Reviewed, dictated and finalized at location A. IMPRESSION: 1. No acute abdominal abnormality. 2: Peroneal dialysis catheter coiled in the bladder. 3: Small left pleural effusion with underlying compressive atelectasis. Possibl e mild interstitial edema.
--- NOTE | ~2023-05-10 | XR_ITS ---
EXAMINATION: XR chest 2V Exam Date/Time: 05/10/2023 15:25 CDT HISTORY: chest pain LEFT SIDE X 1 DAY Comparison: X-ray chest and CTPA 02/15/2023. RESULT: Lines, tubes, and devices: Right chest pacer with intact leads. Intact sternotomy wires. Cardiac vale ve replacement. Surgical clips and ostial markers over the mediastinum. Lungs and pleura: Increased patchy subsegmental left basilar opacities. Persistent left costophrenic angle blunting. Somewhat nodular appearing opacity in the right lower lung. Cardiomediastinal silhouette: Stable. Other: No acute osseous or upper abdominal finding. IMPRESSION: Increasing left basilar airspace disease, may represent infection and/or aspiration in the appropriat e clinical context. Small left pleural effusion. Nodular right lower lung opacity, may represent atel ectasis, additional focus of infection in a multifocal process, or pulmonary nodule. Consider short-t erm follow-up after appropriate therapy, to demonstrate resolution. Reviewed, dictated and finalized at location K. IMPRESSION: Increasing left basilar airspace disease, may represent infection and/or aspira tion in the appropriate clinical context. Small left pleural effusion. Nodular right lower lung opacity, may represent atelectasis, additional focus of infect ion in a multifocal process, or pulmonary nodule. Consider short-term follow-up after appropriate therapy, to demonstrate resolution.
--- NOTE | 2023-05-10 14:51 | ECG_ITS ---
Measurements Intervals [place] Rate: 78 P: -79 [place]: 165 QRS: 5 QRSD: 90 T: 104 QT: 399 QTc: 457 Interpretive Statements ELECTRONIC ATRIAL PACEMAKER LEFT VENTRICULAR HYPERTROPHY WITH ST-T CHANGE ANTERIOR INFARCT, AGE INDETERMINATE BASELINE ARTIFACT- I, II, III, AVR, AVL, AVF, V1-V6 ABNORMAL ECG COMPARED TO ECG 02/15/2023 11:33:05 ATRIAL PACED RHYTHM NOW PRESENT Electronically Signed On 05-10-2023 15:00:32 CDT by Rafael Calzada D.O.
[2023-05-10] MEDS: NITROGLYCERIN SL 0.4 MG TABLET (15:06)
[2023-05-10] MEDS: ASPIRIN 81 MG CHEWABLE TABLET 324 MG PO (15:07)
[2023-05-10 15:13] LABS: Basophils Absolute Auto 0.1 K/mm3 (0.0-0.1); Basophils Percent Auto 0.5 % (0.2-1.2); Eosinophils Absolute Auto 0.3 K/mm3 (0-0.3); Eosinophils Percent Auto 2.7 % (0-4.4); Hemoglobin 14.3 g/dL (12.0-15.0); Immature Granulocyte Absolute 0.06 K/mm3 (0.00-0.031); Immature Granulocyte Percent A 0.6 % (0-0.5); Lymphocytes Absolute Auto 1.06 K/mm3 (0.9-3.2); Lymphocytes Percent Auto 11.3 % (18.3-44.2); Mean Corpuscular HGB Conc 31.8 g/dl (32-36); Mean Corpuscular Hemoglobin 29.3 pg (26-34); Mean Corpuscular Volume 92.2 fl (80-100); Mean Platelet Volume 10.4 fl (7.4-10.4); Monocytes Absolute Auto 0.4 K/mm3 (0.1-0.6); Monocytes Percent Auto 4.5 % (2.6-8.5); Neutrophils Absolute Auto 7.5 K/mm3 (1.3-6.7); Neutrophils Percent Auto 80.4 % (45.5-73.1); Platelet Count Result 207 k/mm3 (150-375); Red Blood Count 4.88 M/mm3 (4.2-5.4); Red Cell Distribution Width 14.5 % (11.5-14.5); White Blood Count 9.4 K/mm3 (4.5-10.0)
--- NOTE | 2023-05-10 15:22 | PC.NURSE ---
Second dose of nitro SL given 1522
[2023-05-10 15:24] LABS: Partial Thromboplastin Time 26.7 SECONDS (22.3-36.8); Prothrombin Time 13.3 Seconds (11.1-14.7)
[2023-05-10 15:56] LABS: Alanine Aminotransferase 24 U/L (6-35); Albumin Level 3.6 g/dL (3.5-5.1); Alkaline Phosphatase 51 U/L (38-126); Anion Gap 12 mmol/L (8-16); Aspartate Amino Transferase 31 U/L (14-36); Bilirubin,Total 0.4 mg/dL (0.2-1.3); Blood Urea Nitrogen 56 mg/dL (7-17); Calcium 7.3 mg/dL (8.4-10.2); Carbon Dioxide 29 mmol/L (22-30); Chloride 98 mmol/L (98-107); Estimated CRCL calculation 6 ml/min; Estimated Glomerular Filt Rate 5; Glucose 84 mg/dL (65-110); Lipase 97 U/L (23-300); Potassium 3.2 mmol/L (3.4-5.0); Sodium 139 mmol/L (137-145)
[2023-05-10 16:05] LABS: Troponin I 0.014 ng/mL (0.000-0.034)
[2023-05-10] MEDS: fentaNYL CITRATE INJ (*CRX) 100 MCG/2 ML VIAL 50 MCG IV PUSH ×2 (16:08→20:56)
--- NOTE | 2023-05-10 16:18 | ED.GENADULT ---
HPI - General Adult General Chief complaint: Chest Pain Stated complaint: left should pain Time Seen by Provider: 05/10/23 14:57 History of Present Illness HPI narrative: Patient is a 52-year-old female who presents ER with left shoulder pain. Sudden onset around 1230. Has been constant since then. 07/30. Radiates into her left chest wall and her left lateral abdomen. Had some pain similar to to this in her shoulder when she had a stent to collapse. She has complex cardiac patient who is seen at [facility]. Patient also has end-stage renal disease and gets peritoneal dialysis. She denies any recent trauma. No fevers or chills or sweats. No pain with deep breath. No hemoptysis. No recent lower extremity swelling or cramping. Cannot describe any alleviating factors. Left shoulder pain is worse with any type of movement of the arm. The pain in his shoulder does radiate into the left neck posteriorly. Related Data Home Medications Medication Instructions Recorded Confirmed aspirin 81 mg tablet,delayed 81 mg PO DAILY 08/27/19 05/10/23 release calcium acetate(phosphat bind) 667 667 mg PO TIDWM 08/01/22 05/10/23 mg capsule clopidogrel 75 mg tablet (Plavix) 75 mg PO DAILY 08/01/22 05/10/23 gentamicin 0.1 % topical cream 1 applic topical DAILY 08/01/22 05/10/23 loratadine 10 mg tablet (Claritin) 10 mg PO DAILY PRN Allergy Symptoms 08/01/22 05/10/23 multivitamin 1 tablet PO DAILY 08/01/22 05/10/23 nitroglycerin 0.4 mg sublingual 0.4 mg sublingual Q5M PRN Pain 08/01/22 05/10/23 tablet levothyroxine 112 mcg tablet 112 mcg PO 0600 05/10/23 05/10/23 Allergies Allergy/AdvReac Type Severity Reaction Status Date / Time amoxicillin Allergy Severe Difficulty Verified 05/10/23 20:42 Breathing egg Allergy Severe STOPPED Verified 05/10/23 20:42 BREATHING Penicillins Allergy Severe Stopped Verified 05/10/23 20:42 Breathing ciprofloxacin Allergy Intermediate Fever Verified 05/10/23 20:42 bass Allergy Unknown Swelling Verified 05/10/23 20:42 clarithromycin Allergy Unknown WAS CHILD Verified 05/10/23 20:42 UNKNOWN REACTION Macrolide Antibiotics Allergy Unknown NO IDEA Verified 05/10/23 20:42 tree nut Allergy Unknown Vomiting Verified 05/10/23 20:42 Review of Systems Review of Systems: All systems reviewed & are unremarkable except as noted in HPI and below Constitutional: Constitutional: Denies chills, Denies fatigue and Denies fever(s) ENT: Denies nasal congestion and Denies sore throat Cardiovascular: Cardiovascular: Denies chest pain, Denies rapid heart rate and Denies radiating jaw, neck or arm pain Respiratory: Respiratory: Denies cough and Denies dyspnea Gastrointestinal: Gastrointestinal: Denies abdominal pain, Denies nausea and Denies vomiting Musculoskeletal: Musculoskeletal: Reports arthralgias, Denies joint swelling and Denies muscle cramps PMFSH Past Medical History Medical History (Updated 05/10/23 @ 21:20 by Long Rodriguez MD) Aortic stenosis Bicuspid aortic valve. Status post aortic valve replacement on 02/11/2019 that resulted in perivalvular regurgitation. 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 She underwent left thoracotomy, chemotherapy and radiation. Pacemaker Patient developed bradycardia with sick sinus syndrome requiring pacemaker on 05/15/2019. 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 Polycystic renal disease Pulmonary hypertension Raynaud phenomenon Restrictive lung disease Surgical History Surgical History (Reviewed 0
[2023-05-10 18:32] LABS: Troponin I 0.016 ng/mL (0.000-0.034)
[2023-05-10] MEDS: ENOXAPARIN 60 MG/0.6 ML SYRINGE 52 MG SUB-Q (18:51)
--- NOTE | 2023-05-10 20:24 | ADMGEN ---
This patient, Ginger Marshall, was admitted to IMU Room 201-01. Patient/family oriented to hospital policies and general routines including ID bracelet, bed and alarms, visiting hours, pain management, procedures, bathroom and other care routines, personal items, smoking policy, room service/diet, and visiting hours. Information on how to activate the Rapid Response Team has been discussed. Patient/Family are encouraged to report perceived risks to care and to ask questions if they do not understand what they are told or what they should do.
--- NOTE | 2023-05-10 21:31 | PM.IMHP ---
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 The patient reports that she had when out to her car during her lunch break. 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 She reports that she always have left flank pain due to her polycystic kidneys. However this pain is different. Pain is reproducible to palpation. The pain radiates down the left outer shoulder into the biceps. She also has some tightness in her left neck. The pain is worse with movement of her shoulder. As the pain progressed it seemed to be getting worse. Pain is severe in nature. It was improved after nitro and fentanyl in the ER. Pain was worse with deep breathing and coughing. She has been having some chills today more so than usual. She denies any fevers. She has been having increased cough over recent weeks that she attributes to allergies. She does have some rhinorrhea and postnasal drip specially when she is at work when it is cold in the office. She denies any productive cough. She does report that on Saturday when she was doing her peritoneal dialysis she thought she had attached at the dialysate bags to the system. She was busy doing other working got distracted. After she tried to re prime the system several times she realized that she had not prepped the cassette properly and had to restart her dialysis. She did not have any immediate pain at that time and her symptoms did not start until today. But she thought that maybe some of her pain was due to air trapped in her abdomen. She reports that her current symptoms seem the similar to pain when she has had intra-abdominal surgery before. She denies any actual abdominal pain. She reports her abdomen always feels full when she is undergoing dialysis. She has not noticed any change in her peritoneal fluid drainage. She denies any nausea or vomiting. She does still produce urine about 500 mL a day. She denies any dysuria or changes in urinary frequency. She reports that when she had her 1st heart attack her pain was in her back. When she had her stent collapse in July of 2022 her pain was in her left shoulder. Does 1 recent she was concerned about her pain today and came to the ER. However she admits that her pain today is not really all that similar to when her state collapsed. Review of Systems Review of Systems: 12 systems were reviewed with pertinent positives and negatives per HPI. Except as documented in the HPI, all other systems were reviewed and are negative. [facility] Past Medical History Medical History (Updated 05/10/23 @ 23:03 by Jacqueline Pisano, DO) Aortic stenosis Bicuspid aortic valve. Status post aortic valve replacement on 02/11/2019 that resulted in perivalvular regurgitation. 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 She underwent left thoracotomy, chemotherapy and radiation. 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
[2023-05-10 22:00] LABS: Troponin I 0.025 ng/mL (0.000-0.034)
[2023-05-10] MEDS: ALBUTEROL SULFATE NEB 2.5 MG/3 ML INH 5 MG INHALATION (23:14)
[2023-05-10] MEDS: IPRATROPIUM BR 0.02% INH SOLN 0.5 MG/2.5 ML VIAL INHALATION (23:14)
[2023-05-10] MEDS: methylPREDNISolone SOD SUCC 125 MG VIAL 60 MG IV PUSH (23:18)
[2023-05-11] VITALS (16 sets, daily range): BP systolic 90–129; BP diastolic 48–66; PULSE 73–92; RESP 16–20; TEMP 36.1–36.7; O2SAT 97–100
[2023-05-11] MEDS: LEVOTHYROXINE SODIUM 112 MCG TABLET PO (05:53)
[2023-05-11] MEDS: HYDROcodone/acetaminophen (*CRX) 5-325 MG TABLET 1 TAB PO ×3 (06:32→21:48)
[2023-05-11] MEDS: HEPARIN SODIUM 5,000 UNITS/ML VIAL 5000 UNITS SUB-Q ×2 (08:48→20:16)
[2023-05-11] MEDS: CALCIUM ACETATE 667 MG TABLET PO ×3 (08:48→16:35)
[2023-05-11] MEDS: CLOPIDOGREL BISULFATE 75 MG TABLET PO (08:48)
[2023-05-11] MEDS: GENTAMICIN SULFATE 0.1% CR 15 GM TUBE 1 APPLIC TOPICAL (08:48)
[2023-05-11] MEDS: ASPIRIN 81 MG ENTERIC TABLET PO (08:48)
[2023-05-11] MEDS: MULTIVITAMINS THERAPEUTIC TAB (*BKC) 1 TABLET PO (08:48)
--- NOTE | 2023-05-11 10:43 | PM.CNNEP ---
Assessment and Plan Assessment and plan (1) ESRD (end stage renal disease): Code(s): N18.6 - End stage renal disease Status: Chronic Assessment and Plan: The patient has end-stage renal disease. If her dialysis last night and did well. Fluid is clear in flows are good. Volume status looks okay. Potassium slightly low. She received a dose of potassium last evening. (2) Polycystic renal disease: Code(s): Q61.3 - Polycystic kidney, unspecified Status: Acute Assessment and Plan: The patient has polycystic kidney disease. She does not have any headaches. (3) Shoulder pain: Code(s): M25.519 - Pain in unspecified shoulder Status: Acute Assessment and Plan: The patient has pain in the left shoulder also pain in the left flank. This could be several things. She did have some trouble with her dialysis a couple of days ago and there might be some air under the diaphragm. Chest x-ray did not show this which is a fairly sensitive test for this but does not completely rule it out. Another possibility is shingles. She does not have a rash. But sometimes the rash comes up after the pain is been there for a couple of days. It has been about 24hours now. The involvement of that shingles could go a little deep and involves the diaphragm which would explain the shoulder pain as well. Another possibility is out bleeding into a cyst or ruptured cyst in the left kidney. This would explain both the shoulder pain because the cyst might be next to the diaphragm and also of course would explain the left flank pain. Pulmonary embolus could do this as well. She is on for his V/Q scan right now but I think it makes more sense just to do a CT angio and look at the belly which would look at the latter 2 of the above possibilities. The CT does involve contrast but I think it is important to rule out pulmonary embolus in this case. Because of her weighing the scapulae and prior issues such as chest tubes the V/Q scan is likely to be indeterminate. And we would still have the question of whether this might be a cyst rupture anyway. (4) Hypertension: Code(s): I10 - Essential (primary) hypertension Status: Acute Assessment and Plan: Blood pressure is under good control (5) CHF (congestive heart failure): Qualifiers: Heart failure type: unspecified Heart failure chronicity: chronic Qualified Code(s): I50.9 - Heart failure, unspecified Code(s): I50.9 - Heart failure, unspecified Status: Chronic Assessment and Plan: Volume status is good. (6) Asthma-COPD overlap syndrome: Code(s): J44.9 - Chronic obstructive pulmonary disease, unspecified Status: Acute Assessment and Plan: She is breathing pretty well currently. (7) Renal osteodystrophy: Code(s): N25.0 - Renal osteodystrophy Status: Acute Assessment and Plan: Will check a phosphorus level in the morning if she still here (8) Erythropoietin deficiency anemia: Code(s): D63.1 - Anemia in chronic kidney disease Status: Acute Assessment and Plan: Her hemoglobin is good now. No need for EPO History of Present Illness Reason for Consult Consult date: 05/11/23 Chief Complaint Chief complaint: chest pain, shoulder pain, dyspnea, esrd History of Present Illness Narrative: Ginger is a very pleasant 52-year-old lady who has multiple medical problems including end-stage renal disease on peritoneal dialysis nightly at home, coronary artery disease status post [place], congestive heart failure with reduced ejection fraction of around 45% lately, aortic stenosis and aortic regurgitation, hypertension, asthma/COPD, renal osteodystrophy, anemia of chronic kidney disease, polycystic kidneys, Raynaud's. The patient was in her usual state of health until yesterday at lunch when she was walking back to her office and developed left neck and shoulder pain which
--- NOTE | 2023-05-11 11:02 | PM.EVENT ---
Event Note Event Note Event Note: Patient is on peritoneal dialysis. She is tolerating this well. She has clear fluid. The flows are good. She was seen at 10:30 a.m.
--- NOTE | 2023-05-11 11:15 | PM.CNCAR ---
Assessment and Plan Assessment and plan (1) CAD (coronary artery disease): Qualifiers: Associated angina: without angina Coronary Disease-Associated Artery/Lesion type: [place] artery [place] vs. transplanted heart: [place] heart Qualified Code(s): I25.10 - Atherosclerotic heart disease of [place] coronary artery without angina pectoris Code(s): I25.10 - Atherosclerotic heart disease of [place] coronary artery without angina pectoris Status: Chronic Assessment and Plan: She does have significant CAD as detailed above. Recent PCI and restenting of vein graft to the LAD. Shoulder pain is similar to what she had presented with at the time of her myocardial infarction last fall. Will repeat another troponin now. She is up trending but still negative troponins. Will also give her nitroglycerin 0.4 mg sublingual x1 now. Will start heparin drip per protocol. Continue aspirin, clopidogrel. If the were decided the patient needed to have a catheterization, she should be transferred to [place] where she follows with Dr. Skelton (2) Left shoulder pain: Qualifiers: Chronicity: acute Qualified Code(s): M25.512 - Pain in left shoulder Code(s): M25.512 - Pain in left shoulder Status: Acute Assessment and Plan: Atypical pain but yet she states that it feels similar to her myocardial infarction pain. By examination, it seems that this is musculoskeletal but by description from patient, cannot exclude this being related to her heart. Workup as above (3) End-stage renal disease (ESRD): Code(s): N18.6 - End stage renal disease Status: Acute Assessment and Plan: On peritoneal dialysis. Per Nephrology (4) History of aortic valve replacement: Code(s): Z95.2 - Presence of prosthetic heart valve Status: Acute Assessment and Plan: With significant qamar perivalvular aortic insufficiency (5) Ischemic cardiomyopathy: Code(s): I25.5 - Ischemic cardiomyopathy Status: Acute Assessment and Plan: Mild with EF 45-50% History of Present Illness History of Present Illness Consult date/time: 05/11/23 11:15 Requesting physician: Long Rodriguez MD Consult reason: chest pain Reason For Visit: chest pain, shoulder pain, dyspnea, esrd Narrative: Reason for consultation: Chest pain Date of service 05/11/2023 Requesting provider: Dr. Rodriguez History: Patient is a 52-year-old female who has a very complex medical history. From a cardiac perspective she has had severe aortic stenosis and complex surgical intervention 2018 with the placement a 20 mm Brown valve. Unfortunately this did leave her severe perivalvular aortic insufficiency. She also has coronary disease, single-vessel bypass grafting to the LAD and PCI to the ostium of the graft in February of 2022. She had stent closure last June and had PCI of the ISR at that time. She does also have cardiomyopathy, history of Hodgkin's lymphoma status post radiation and pectus deformity. She has end-stage renal disease and is on peritoneal dialysis also. She came to the hospital yesterday after experiencing recurrent left shoulder pain which felt very similar to her symptoms at the time of her in stent restenosis of this VG to the LAD. 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 She also had left flank pain at the same time. It hurt to move her shoulder as well as her to breathe. She did have associated shortness breath but no nausea or diaphoresis. She has had no recent syncope, presyncope, paroxysmal nocturnal dyspnea, orthopnea, edema or palpitations. She came to the emergency department was given nitroglycerin and fentanyl. She states the nitroglycerin did seem to help her a little bit. Fentanyl relaxed her. She was given steroids overnight also. She felt good for most of the night but has
[2023-05-11] MEDS: NITROGLYCERIN SL 0.4 MG TABLET SUBLINGUAL (11:36)
[2023-05-11 13:41] LABS: Troponin I 0.025 ng/mL (0.000-0.034)
--- NOTE | 2023-05-11 17:03 | WPDPN ---
Progress Note: A&P Assessment and Plan (1) Chest pain: Qualifiers: Chest pain type: chest pain on breathing Qualified Code(s): R07.1 - Chest pain on breathing Code(s): R07.9 - Chest pain, unspecified Status: Acute (2) End-stage renal disease (ESRD): Code(s): N18.6 - End stage renal disease Status: Acute (3) Hypokalemia: Code(s): E87.6 - Hypokalemia Status: Acute (4) Left shoulder pain: Qualifiers: Chronicity: acute Qualified Code(s): M25.512 - Pain in left shoulder Code(s): M25.512 - Pain in left shoulder Status: Acute Plan The patient is having left shoulder and pleuritic left chest pain. Symptoms could be due to infection that is not quite showing up on x-ray. She could also have pleurisy with associated recent coughing rhinorrhea and other related symptoms. Pleurisy could also be due to possible underlying pulmonary embolism. The patient reports that she has been admitted multiple times in the past for pulmonary embolism rule out. She states her CTs always demonstrate an area that could be concerning for pulmonary embolism but the findings are weight is chronic and unchanged. 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 Will give the patient a dose of IV Solu-Medrol and nebulizer treatment to see if this does not help her symptoms. The any steroids of nothing also help reduce some inflammation. If the symptoms may persist and may try a muscle relaxer. The patient is not a candidate for NSAIDs given her polycystic kidney disease and need for dialysis. Pain medications have been provided Nephrology has been consulted for management of peritoneal dialysis. Patient does have some mild hypokalemia. Initially I had ordered a oral potassium supplement but on review of patient's chart had discontinued supplement immediately. Patient does have coronary disease but troponins have been flat. Will complete troponin profile and cardiology has been consulted from the ER. Patient will be monitored in IMU. Will continue the patient's home Plavix and aspirin. 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 The patient reports that she had when out to her car during her lunch break.? 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 She reports that she always have left flank pain due to her polycystic kidneys.? However this pain is different.? Pain is reproducible to palpation.? The pain radiates down the left outer shoulder into the biceps.? She also has some tightness in her left neck.? The pain is worse with movement of her shoulder.? As the pain progressed it seemed to be getting worse.? Pain is severe in nature.? It was improved after nitro and fentanyl in the ER.? Pain was worse with deep breathing and coughing.? She has been having some chills today more so than usual.? She denies any fevers.? She has been having increased cough over recent weeks that she attributes to allergies.? She does have some rhinorrhea and postnasal drip specially when she is at work when it is cold in the office.? She denies any productive cough.? She does report that on
[2023-05-12] VITALS (13 sets, daily range): BP systolic 95–118; BP diastolic 46–78; PULSE 70–94; RESP 14–20; TEMP 36.1–36.6; O2SAT 96–100
[2023-05-12 04:55] LABS: Hematocrit 35.6 % (37.0-47.0); Hemoglobin 11.4 g/dL (12.0-15.0); Mean Corpuscular Hemoglobin 29.1 pg (26-34); Mean Corpuscular Volume 90.8 fl (80-100); Mean Platelet Volume 10.5 fl (7.4-10.4); Platelet Count Result 154 k/mm3 (150-375); Red Blood Count 3.92 M/mm3 (4.2-5.4); Red Cell Distribution Width 14.3 % (11.5-14.5); White Blood Count 10.5 K/mm3 (4.5-10.0)
[2023-05-12 05:08] LABS: Albumin Level 3.2 g/dL (3.5-5.1); Anion Gap 15 mmol/L (8-16); Blood Urea Nitrogen 52 mg/dL (7-17); Calcium 7.6 mg/dL (8.4-10.2); Carbon Dioxide 22 mmol/L (22-30); Chloride 94 mmol/L (98-107); Estimated CRCL calculation 8 ml/min; Estimated Glomerular Filt Rate 6; Glucose 161 mg/dL (65-110); Magnesium 2.2 mg/dL (1.6-2.3); Phosphorus 5.6 mg/dL (2.5-4.5); Sodium 131 mmol/L (137-145)
[2023-05-12] MEDS: LEVOTHYROXINE SODIUM 112 MCG TABLET PO (06:06)
[2023-05-12] MEDS: HEPARIN SODIUM 5,000 UNITS/ML VIAL 5000 UNITS SUB-Q ×2 (08:04→21:20)
[2023-05-12] MEDS: ASPIRIN 81 MG ENTERIC TABLET PO (08:04)
[2023-05-12] MEDS: MULTIVITAMINS THERAPEUTIC TAB (*BKC) 1 TABLET PO (08:04)
[2023-05-12] MEDS: CALCIUM ACETATE 667 MG TABLET PO ×2 (08:04→16:39)
[2023-05-12] MEDS: CLOPIDOGREL BISULFATE 75 MG TABLET PO (08:04)
[2023-05-12] MEDS: HYDROcodone/acetaminophen (*CRX) 5-325 MG TABLET 1 TAB PO ×3 (09:16→21:18)
[2023-05-12] MEDS: fentaNYL CITRATE INJ (*CRX) 100 MCG/2 ML VIAL 50 MCG IV PUSH (09:26)
--- NOTE | 2023-05-12 09:58 | PM.PNCARD ---
Progress Note: A&P Assessment and Plan (1) CAD (coronary artery disease): Qualifiers: Associated angina: without angina Coronary Disease-Associated Artery/Lesion type: [place] artery [place] vs. transplanted heart: [place] heart Qualified Code(s): I25.10 - Atherosclerotic heart disease of [place] coronary artery without angina pectoris Code(s): I25.10 - Atherosclerotic heart disease of [place] coronary artery without angina pectoris Status: Chronic Assessment and Plan: She does have significant CAD as detailed above. Recent PCI and restenting of vein graft to the LAD. Shoulder pain is similar to what she had presented with at the time of her myocardial infarction last fall however troponins are negative in nitroglycerin did not help her symptoms. Continue aspirin and clopidogrel (2) Left shoulder pain: Qualifiers: Chronicity: acute Qualified Code(s): M25.512 - Pain in left shoulder Code(s): M25.512 - Pain in left shoulder Status: Acute Assessment and Plan: Atypical pain but yet she states that it feels similar to her myocardial infarction pain. By examination, it seems that this is musculoskeletal but by description from patient, cannot exclude this being related to her heart. Workup as above (3) End-stage renal disease (ESRD): Code(s): N18.6 - End stage renal disease Status: Acute Assessment and Plan: On peritoneal dialysis. Per Nephrology with left flank pain. Nephrology involved. Imaging performed yesterday did not show any acute process (4) History of aortic valve replacement: Code(s): Z95.2 - Presence of prosthetic heart valve Status: Acute Assessment and Plan: With significant qamar perivalvular aortic insufficiency (5) Ischemic cardiomyopathy: Code(s): I25.5 - Ischemic cardiomyopathy Status: Acute Assessment and Plan: Mild with EF 45-50% Plan Continue observation from a cardiac perspective and will continue to follow along with you given the complexity of her cardiac disease. 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 Date of service 05/12/2023: Is currently having another severe episode of left flank pain. She does have some shoulder pain with it. Symptoms have improved with pain medications and by pushing on her shoulder. Nitroglycerin yesterday did not help her discomfort. No chest pain per se and no significant shortness of breath Review of Systems Review of Systems: All systems reviewed & are unremarkable except as noted in HPI and below Constitutional: Constitutional: Denies body ache(s) and Denies excessive sweating Eyes: Eyes: Denies blurry vision ENT: Reports Normal hearing present Cardiovascular: Cardiovascular: Denies chest pain, Denies palpitations and Reports dyspnea Respiratory: Respiratory: Reports dyspnea Gastrointestinal: Gastrointestinal: Denies abdominal pain Genitourinary: Genitourinary: Denies hematuria and Reports flank pain Musculoskeletal: Musculoskeletal: Denies back pain Integumentary/Breasts: Skin/Breast: Denies skin pain Neurologic: Reports Normal hearing present and Denies Abnormal speech present Psychiatric: Psychiatric: Denies anxiety Endocrine: Endocrine: Denies excessive sweating and Denies palpitations Hematologic/Lymphatic: Hematologic/Lymphatic: Denies easy bleeding Allergic/Immunologic: Allergic/Immunologic: Denies GI upset with certain foods Exam Narrative: Awake alert oriented appears stated age Const: General: comforta
--- NOTE | 2023-05-12 10:00 | PM.PNNEP ---
Progress Note: A&P Assessment and Plan (1) ESRD (end stage renal disease): Code(s): N18.6 - End stage renal disease Status: Chronic Assessment and Plan: The patient has end-stage renal disease. Her dialysis last night and did well until the last exchange. Volume status looks okay. Potassium is low again. She received some potassium this morning. (2) Polycystic renal disease: Code(s): Q61.3 - Polycystic kidney, unspecified Status: Acute Assessment and Plan: The patient has polycystic kidney disease. She does not have any headaches. (3) Shoulder pain: Code(s): M25.519 - Pain in unspecified shoulder Status: Acute Assessment and Plan: The patient has pain in the left shoulder also pain in the left flank. She had a CTA which showed no pulmonary embolus. She had troponins which are negative. She had a CT of the abdominal arteries as well which showed no aneurysms. Polycystic kidneys looked intact. Neither CT showed any free air. I do not think this is the shingles. The distribution of the pain does not make sense and she has no rash. Pulmonary embolus was ruled out. I do not think this is her heart but will check EKG and troponins just in case. Infection is also possible. However no fever and white cell count isn't very high. So this is low likelihood. Just in case, I will get blood and urine cultures as well as the PD fluid cultures and put her on some Cipro which penetrates the cysts. (4) Hypertension: Code(s): I10 - Essential (primary) hypertension Status: Acute Assessment and Plan: Blood pressure is under good control (5) CHF (congestive heart failure): Qualifiers: Heart failure type: unspecified Heart failure chronicity: chronic Qualified Code(s): I50.9 - Heart failure, unspecified Code(s): I50.9 - Heart failure, unspecified Status: Chronic Assessment and Plan: Volume status is good. (6) Asthma-COPD overlap syndrome: Code(s): J44.9 - Chronic obstructive pulmonary disease, unspecified Status: Acute Assessment and Plan: She is breathing pretty well currently. (7) Renal osteodystrophy: Code(s): N25.0 - Renal osteodystrophy Status: Acute Assessment and Plan: Will check a phosphorus level in the morning if she still here (8) Erythropoietin deficiency anemia: Code(s): D63.1 - Anemia in chronic kidney disease Status: Acute Assessment and Plan: Her hemoglobin is good now. No need for EPO Subjective Date/time seen: 05/12/23 10:00 Interval history: Patient was doing okay overnight. This morning with her last drain she developed severe pain. Same characteristic is what brought her in however much worse now. The pain is in the left neck/shoulder along the superior aspect of the trapezius and some more anterior. No chest pain she does have left flank pain as well which comes and goes along with the neck pain. There is no rash. She was taken off dialysis today and her fluid was blood tinged. We sent off for cell count and culture Review of Systems Cardiovascular: Cardiovascular: Reports no additional cardiovascular complaints Respiratory: Respiratory: Reports no additional respiratory complaints Gastrointestinal: Gastrointestinal: Reports no additional gastrointestinal complaints Genitourinary: Genitourinary: Reports no additional female genitourinary complaints Exam Narrative: WDWN in NAD skin no rash head ncat Neck nontender. Massaging the superior aspect of the trapezius actually makes the pain a little bit better. lungs clear cor reg no rub abd BS+ nontender and soft. No rash along the abdominal wall. She has some tenderness along the left flank. ext no edema. Objective Data Vital Signs Vital Signs: Vital Signs - 24 hr 05/11/23 10:24 05/11/23 11:40 05/11/23 12:00 Temperature 98.1 F Pulse Rate 77 87 R
--- NOTE | 2023-05-12 10:05 | ECG_ITS ---
Measurements Intervals [place] Rate: 73 P: 108 AL: 115 QRS: 11 QRSD: 82 T: 92 QT: 407 QTc: 449 Interpretive Statements SINUS RHYTHM WITH SHORT AL INTERVAL T WAVE ABNORMALITY IN HIGH LATERAL LEADS- CONSIDER ISCHEMIA ABNORMAL ECG COMPARED TO ECG 05/10/2023 14:54:08 SINUS RHYTHM NOW PRESENT T WAVE ABNORMALITY NOW PRESENT Electronically Signed On 05-12-2023 16:21:44 CDT by Rafael Calzada D.O.
--- NOTE | 2023-05-12 10:41 | PM.EVENT ---
Event Note Event Note Event Note: Patient's pain is much better. EKG does not show any change. Urine appears clear but it is being sent for tests. I talked at length with the patient. The patient is allergic to Cipro she says however it cause migraine and a fever when she had a bladder infection. It is unclear whether it really cause those side effects and she is willing to give it a try but I feel like she has been through enough and we do not have high enough suspicion of a cyst infection to take that risk. So will cancel the Cipro and use Bactrim.
[2023-05-12] MEDS: POTASSIUM CHLORIDE 20 MEQ ER TABLET PO (10:57)
[2023-05-12] MEDS: SULFAMETHOXAZOLE/TRIMETHOPRIM 800/160 MG DS TABLET 1 TAB PO (11:21)
[2023-05-12 11:23] LABS: Amorphous Sediment Urine Present; Appearance Urine Cloudy (Clear); Bacteria Urine 4+ /hpf; Bilirubin Urine Negative (Negative); Blood Urine 2+ (Negative); Color Urine Yellow (Yellow); Glucose Urine UA Negative (Negative); Ketones Urine Negative (Negative); Leukocyte Esterase Ur 3+ LEU/UL (NEGATIVE); Nitrate Urine Negative (Negative); Non Pathogenic Casts 0-2; Protein Urine 2+ mg/dL (Negative); Squamous Epithelial Cell Urine Few /hpf (Few); Urobilinogen Urine 0.2 mg/dL (<2.0); WBC Urine >100 /hpf (0-3)
[2023-05-12 11:29] LABS: Add Urine Microscopic? YES
[2023-05-12 12:30] LABS: Source Peritoneal Fluid Peritoneal Fluid
[2023-05-12 12:34] LABS: Appearance Peritoneal Fluid Hazy (Clear); Color Peritoneal Fluid Colorless (Colorless)
[2023-05-12 12:35] LABS: Nucleated Cells Peritoneal Flu 1179 /uL (0-500)
[2023-05-12 12:36] LABS: Lymphocytes Peritoneal Fluid 1 %; Mesothelial Cells Peritoneal Fluid 2 %; Monocytes Peritoneal Fluid 3 %; Neutrophils Peritoneal Fluid 94 % (0-25)
--- NOTE | 2023-05-12 12:57 | WPDPN ---
Progress Note: A&P Assessment and Plan (1) Chest pain: Qualifiers: Chest pain type: chest pain on breathing Qualified Code(s): R07.1 - Chest pain on breathing Code(s): R07.9 - Chest pain, unspecified Status: Acute (2) End-stage renal disease (ESRD): Code(s): N18.6 - End stage renal disease Status: Acute (3) Hypokalemia: Code(s): E87.6 - Hypokalemia Status: Acute (4) Left shoulder pain: Qualifiers: Chronicity: acute Qualified Code(s): M25.512 - Pain in left shoulder Code(s): M25.512 - Pain in left shoulder Status: Acute Plan The patient is having left shoulder and pleuritic left chest pain. Symptoms could be due to infection that is not quite showing up on x-ray. She could also have pleurisy with associated recent coughing rhinorrhea and other related symptoms. Pleurisy could also be due to possible underlying pulmonary embolism. The patient reports that she has been admitted multiple times in the past for pulmonary embolism rule out. She states her CTs always demonstrate an area that could be concerning for pulmonary embolism but the findings are weight is chronic and unchanged. 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 Will give the patient a dose of IV Solu-Medrol and nebulizer treatment to see if this does not help her symptoms. The any steroids of nothing also help reduce some inflammation. If the symptoms may persist and may try a muscle relaxer. The patient is not a candidate for NSAIDs given her polycystic kidney disease and need for dialysis. Pain medications have been provided Nephrology has been consulted for management of peritoneal dialysis. Patient does have some mild hypokalemia. Initially I had ordered a oral potassium supplement but on review of patient's chart had discontinued supplement immediately. Patient does have coronary disease but troponins have been flat. Will complete troponin profile and cardiology has been consulted from the ER. Patient will be monitored in IMU. Will continue the patient's home Plavix and aspirin. 05/12/2023 interval history: patient stats that she may have air in her PD tubing that may be causing her left sided flank and shoulder pain, however CT scan of abdomen did not show any air, discuss with Dr. Boris suspect patient have rupture of one of her cyst from polycystic, patient was given pain medication and stats pain is better now, patient is seen by stoker mechanic does not suspect CAD, and coil placer and further recommendation to follow. Subjective Date/time seen: 05/12/23 12:57 Interval history: The patient is having left shoulder and pleuritic left chest pain. Symptoms could be due to infection that is not quite showing up on x-ray. She could also have pleurisy with associated recent coughing rhinorrhea and other related symptoms. Pleurisy could also be due to possible underlying pulmonary embolism. The patient reports that she has been admitted multiple times in the past for pulmonary embolism rule out. She states her CTs always demonstrate an area that could be concerning for pulmonary embolism but the findings are weight is chronic and unchanged. 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 Will give the patient a dose of IV Solu-Medrol and nebulizer treatment to see if this does not help her symptoms. The any steroids of nothing also help reduce some inflammation. If the symptoms may persist and may try a muscle relaxer. The patient is not a candidate for NSAIDs given her polycystic kidney disease and need for dialysis. Pain medications have been provided Nephrology has been consulted for management of peritoneal dialysis. Patient does have some mild hypokalemia. Initially I had ordered a oral potassi
[2023-05-13] VITALS (13 sets, daily range): BP systolic 92–110; BP diastolic 48–70; PULSE 64–90; RESP 14–16; TEMP 36–36.8; O2SAT 96–98
[2023-05-13 05:00] LABS: Hemoglobin 11.4 g/dL (12.0-15.0); Mean Corpuscular HGB Conc 31.7 g/dl (32-36); Mean Corpuscular Hemoglobin 28.9 pg (26-34); Mean Corpuscular Volume 91.4 fl (80-100); Mean Platelet Volume 10.5 fl (7.4-10.4); Platelet Count Result 139 k/mm3 (150-375); Red Blood Count 3.94 M/mm3 (4.2-5.4); Red Cell Distribution Width 14.4 % (11.5-14.5); White Blood Count 6.1 K/mm3 (4.5-10.0)
[2023-05-13 05:14] LABS: Albumin Level 2.9 g/dL (3.5-5.1); Anion Gap 11 mmol/L (8-16); Blood Urea Nitrogen 56 mg/dL (7-17); Calcium 7.7 mg/dL (8.4-10.2); Carbon Dioxide 25 mmol/L (22-30); Chloride 95 mmol/L (98-107); Estimated CRCL calculation 7 ml/min; Estimated Glomerular Filt Rate 6; Glucose 89 mg/dL (65-110); Magnesium 2.2 mg/dL (1.6-2.3); Phosphorus 6.3 mg/dL (2.5-4.5); Potassium 3.8 mmol/L (3.4-5.0); Sodium 131 mmol/L (137-145)
[2023-05-13] MEDS: HYDROcodone/acetaminophen (*CRX) 5-325 MG TABLET 1 TAB PO ×3 (06:12→20:14)
[2023-05-13] MEDS: LEVOTHYROXINE SODIUM 112 MCG TABLET PO (06:12)
--- NOTE | 2023-05-13 08:50 | PM.PNCARD ---
Progress Note: A&P Assessment and Plan (1) CAD (coronary artery disease): Qualifiers: Associated angina: without angina Coronary Disease-Associated Artery/Lesion type: [place] artery [place] vs. transplanted heart: [place] heart Qualified Code(s): I25.10 - Atherosclerotic heart disease of [place] coronary artery without angina pectoris Code(s): I25.10 - Atherosclerotic heart disease of [place] coronary artery without angina pectoris Status: Chronic Assessment and Plan: She does have significant CAD as detailed in the HPI. Recent PCI and restenting of vein graft to the LAD. Shoulder pain is similar to what she had presented with at the time of her myocardial infarction last fall however troponins are negative in nitroglycerin did not help her symptoms. Continue aspirin and clopidogrel. (2) Left shoulder pain: Qualifiers: Chronicity: acute Qualified Code(s): M25.512 - Pain in left shoulder Code(s): M25.512 - Pain in left shoulder Status: Acute Assessment and Plan: Atypical pain but yet she states that it feels similar to her myocardial infarction pain. By examination, it seems that this is musculoskeletal but by description from patient, cannot exclude this being related to her heart. Workup as above (3) End-stage renal disease (ESRD): Code(s): N18.6 - End stage renal disease Status: Acute Assessment and Plan: On peritoneal dialysis. Per Nephrology with left flank pain. Nephrology involved. Imaging performed yesterday did not show any acute process (4) History of aortic valve replacement: Code(s): Z95.2 - Presence of prosthetic heart valve Status: Acute Assessment and Plan: With significant qamar perivalvular aortic insufficiency (5) Ischemic cardiomyopathy: Code(s): I25.5 - Ischemic cardiomyopathy Status: Acute Assessment and Plan: Mild with EF 45-50% Plan Continue observation from a cardiac perspective and will continue to follow along with you given the complexity of her cardiac disease. OK to downgrade from IMU to med/tele status today. 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 Date of service 05/12/2023: Is currently having another severe episode of left flank pain. She does have some shoulder pain with it. Symptoms have improved with pain medications and by pushing on her shoulder. Nitroglycerin yesterday did not help her discomfort. No chest pain per se and no significant shortness of breath Date of service 05/13/2023: Still complaining of some left flank pain and left shoulder pain. Already rec'd pain medication this morning so not in significant pain at the time of my visit. No chest pain. States she cant take deep breaths because of the pain but does not have shortness of breath. Review of Systems Review of Systems: All systems reviewed & are unremarkable except as noted in HPI and below Constitutional: Constitutional: Denies body ache(s) and Denies excessive sweating Eyes: Eyes: Denies blurry vision ENT: Reports Normal hearing present Cardiovascular: Cardiovascular: Denies chest pain, Denies palpitations and Reports dyspnea Respiratory: Respiratory: Reports dyspnea Gastrointestinal: Gastrointestinal: Denies abdominal pain Genitourinary: Genitourinary: Denies hematuria and Reports flank pain Musculoskeletal: Musculoskeletal: Denies back pain Integumentary/Breasts: Skin/Breast: Denies skin pain Neurologic: Reports Normal hearing present and Denies Abnormal speech present
[2023-05-13] MEDS: ASPIRIN 81 MG ENTERIC TABLET PO (08:54)
[2023-05-13] MEDS: LORATADINE 10 MG TABLET PO (08:54)
[2023-05-13] MEDS: HEPARIN SODIUM 5,000 UNITS/ML VIAL 5000 UNITS SUB-Q ×2 (08:54→20:14)
[2023-05-13] MEDS: SULFAMETHOXAZOLE/TRIMETHOPRIM 800/160 MG DS TABLET 1 TAB PO (08:54)
[2023-05-13] MEDS: MULTIVITAMINS THERAPEUTIC TAB (*BKC) 1 TABLET PO (08:54)
[2023-05-13] MEDS: CLOPIDOGREL BISULFATE 75 MG TABLET PO (08:54)
[2023-05-13] MEDS: GENTAMICIN SULFATE 0.1% CR 15 GM TUBE 1 APPLIC TOPICAL (08:55)
--- NOTE | 2023-05-13 10:58 | PM.PNNEP ---
Progress Note: A&P Assessment and Plan (1) ESRD (end stage renal disease): Code(s): N18.6 - End stage renal disease Status: Chronic Assessment and Plan: The patient has end-stage renal disease. Her dialysis last night and did well until the last exchange. Volume status looks okay. Potassium is good today (2) Polycystic renal disease: Code(s): Q61.3 - Polycystic kidney, unspecified Status: Acute Assessment and Plan: The patient has polycystic kidney disease. She does not have any headaches. (3) Shoulder pain: Code(s): M25.519 - Pain in unspecified shoulder Status: Acute Assessment and Plan: The patient has pain in the left shoulder also pain in the left flank. She had a CTA which showed no pulmonary embolus. She had troponins which are negative. She had a CT of the abdominal arteries as well which showed no aneurysms. Polycystic kidneys looked intact. Neither CT showed any free air. KUB shows the tube in the correct position. Repeat troponins are negative and repeat EKG is unchanged. Fluid shows some red cells as expected but surprisingly a few white cells as well. I reviewed the CT of the chest in the abdomen with Dr. Richards. He says that the kidneys look the same as they did when she had a CT without contrast last year. There is no stone seen on the x-ray. I believe she has something going on in the superior aspect of the left kidney. One possibility is ruptured cyst or hemorrhagic cyst. The small amount of blood in the PD fluid is consistent with this. She does have some white cells in the fluid the and so infected cyst is a possibility as well. She was on antibiotics but because of the white count in the fluid will give intraperitoneal antibiotics as well. Long discussion with the patient about how the involvement of the kidney next the diaphragm is why she has the left flank pain plus shoulder pain together. CT scan of the chest did not show anything going on there. At this point will start intraperitoneal antibiotics. Continue oral antibiotics. Continue pain control. (4) Hypertension: Code(s): I10 - Essential (primary) hypertension Status: Acute Assessment and Plan: Blood pressure is under good control (5) CHF (congestive heart failure): Qualifiers: Heart failure type: unspecified Heart failure chronicity: chronic Qualified Code(s): I50.9 - Heart failure, unspecified Code(s): I50.9 - Heart failure, unspecified Status: Chronic Assessment and Plan: Volume status is good. (6) Asthma-COPD overlap syndrome: Code(s): J44.9 - Chronic obstructive pulmonary disease, unspecified Status: Acute Assessment and Plan: She is breathing pretty well currently. (7) Renal osteodystrophy: Code(s): N25.0 - Renal osteodystrophy Status: Acute Assessment and Plan: Will check a phosphorus level in the morning if she still here (8) Erythropoietin deficiency anemia: Code(s): D63.1 - Anemia in chronic kidney disease Status: Acute Assessment and Plan: Her hemoglobin is good now. No need for EPO Subjective Date/time seen: 05/13/23 10:58 Interval history: Patient was doing okay overnight. she still has some pain in the shoulder and in the belly. She has no pain anywhere else in the belly. No fever. Exam Narrative: WDWN in NAD skin no rash head ncat Neck nontender. Massaging the superior aspect of the trapezius actually makes the pain a little bit better. lungs clear cor reg no rub abd BS+ nontender and soft. No rash along the abdominal wall. She has some tenderness along the left flank But no pain anywhere else in the belly and no rebound. ext no edema. Objective Data Vital Signs Vital Signs: Vital Signs - 24 hr 05/12/23 11:30 05/12/23 12:00 05/12/23 12:00 Temperature 97.8 F Pulse Rate 94 78 77 Respirat
[2023-05-13] MEDS: CALCIUM ACETATE 667 MG TABLET PO (11:00)
[2023-05-13] MEDS: AZTREONAM 2 GM in SODIUM CHLORIDE 0.9% IV 100 ML 200 ML IVPB (14:53)
[2023-05-13] MEDS: VANCOMYCIN 1,000 MG/NS 250 ML 1,000 MG/250 ML BAG 250 MG IVPB (15:34)
[2023-05-14] VITALS: PULSE 70
[2023-05-14 04:00] VITALS: PULSE 71
[2023-05-14 04:50] LABS: Hematocrit 36.1 % (37.0-47.0); Hemoglobin 11.2 g/dL (12.0-15.0); Mean Corpuscular Hemoglobin 28.6 pg (26-34); Mean Corpuscular Volume 92.1 fl (80-100); Mean Platelet Volume 10.7 fl (7.4-10.4); Platelet Count Result 131 k/mm3 (150-375); Red Blood Count 3.92 M/mm3 (4.2-5.4); Red Cell Distribution Width 14.5 % (11.5-14.5); White Blood Count 4.8 K/mm3 (4.5-10.0)
[2023-05-14 04:59] LABS: Albumin Level 3.2 g/dL (3.5-5.1); Anion Gap 11 mmol/L (8-16); Blood Urea Nitrogen 62 mg/dL (7-17); Calcium 7.4 mg/dL (8.4-10.2); Carbon Dioxide 24 mmol/L (22-30); Chloride 95 mmol/L (98-107); Estimated CRCL calculation 6 ml/min; Estimated Glomerular Filt Rate 5; Glucose 81 mg/dL (65-110); Magnesium 2.4 mg/dL (1.6-2.3); Phosphorus 6.9 mg/dL (2.5-4.5); Potassium 4.3 mmol/L (3.4-5.0); Sodium 130 mmol/L (137-145)
[2023-05-14] MEDS: HYDROcodone/acetaminophen (*CRX) 5-325 MG TABLET 1 TAB PO ×2 (05:56→10:01)
[2023-05-14] MEDS: LEVOTHYROXINE SODIUM 112 MCG TABLET PO (05:57)
[2023-05-14] MEDS: fentaNYL CITRATE INJ (*CRX) 100 MCG/2 ML VIAL 50 MCG IV PUSH ×2 (06:27→12:26)
[2023-05-14 08:00] VITALS: BP 101/53; PULSE 63; PULSE 66; RESP 18; TEMP 36.3; O2SAT 97
[2023-05-14 08:55] LABS: RBC Peritoneal Fluid < 2000 /uL (0-100000)
[2023-05-14] MEDS: MULTIVITAMINS THERAPEUTIC TAB (*BKC) 1 TABLET PO (09:11)
[2023-05-14] MEDS: CALCIUM ACETATE 667 MG TABLET PO ×3 (09:11→16:56)
[2023-05-14] MEDS: HEPARIN SODIUM 5,000 UNITS/ML VIAL 5000 UNITS SUB-Q ×2 (09:11→20:59)
[2023-05-14] MEDS: CLOPIDOGREL BISULFATE 75 MG TABLET PO (09:11)
[2023-05-14] MEDS: SULFAMETHOXAZOLE/TRIMETHOPRIM 400/80 MG TABLET 1 TAB PO (09:11)
[2023-05-14] MEDS: ASPIRIN 81 MG ENTERIC TABLET PO (09:11)
[2023-05-14] MEDS: GENTAMICIN SULFATE 0.1% CR 15 GM TUBE 1 APPLIC TOPICAL (09:12)
--- NOTE | 2023-05-14 09:28 | PM.PNNEP ---
Progress Note: A&P Assessment and Plan (1) ESRD (end stage renal disease): Code(s): N18.6 - End stage renal disease Status: Chronic Assessment and Plan: did not want to do PD yesterday evening due to pain no critical electrolytes and volume status okay will re-attempt CCPD tonight if able (2) Polycystic renal disease: Code(s): Q61.3 - Polycystic kidney, unspecified Status: Acute Assessment and Plan: known history multiple imaging studies have confirmed this diagnosis (3) Left flank pain: Code(s): R10.9 - Unspecified abdominal pain Status: Acute Assessment and Plan: as noted by description and associated with left shoulder pain extensive evaluation to date: CTA chest negative for PE troponins/EKG not suggestive of ischemia CTA abd/pelvis without aneurysms or thrombi in abdominal arteries or evidence of free air PD catheter in appropriate position by KUB PD fluid analysis suggest peritonitis (blood and WBCs with + gram stain although exam not consistent) suspect etiology perhaps air in PD tubing (but that would not explain PD fluid findings) versus possible infected cyst rupture on IV and oral antibiotics continue pain control (4) Shoulder pain: Code(s): M25.519 - Pain in unspecified shoulder Status: Acute Assessment and Plan: see #3 (5) Hypertension: Code(s): I10 - Essential (primary) hypertension Status: Acute Assessment and Plan: reasonable control follow trend of hemodynamics (6) CHF (congestive heart failure): Qualifiers: Heart failure chronicity: chronic Heart failure type: unspecified Qualified Code(s): I50.9 - Heart failure, unspecified Code(s): I50.9 - Heart failure, unspecified Status: Chronic Assessment and Plan: appears compensated follow volume status (7) Erythropoietin deficiency anemia: Code(s): D63.1 - Anemia in chronic kidney disease Status: Acute Assessment and Plan: H/H at goal for ESRD no need for Epogen at this time follow trend Will continue to follow. Subjective Date/time seen: 05/14/23 09:28 Interval history: Follow-up for end stage renal disease on peritoneal dialysis. Chart reviewed -- assuming care from Dr. Escalante; still with significant pain localized to her abomen and shoulder; did not do peritoneal dialysis yesterday evening due to the severity of her pain as well; transitioned to IV antibiotics given PD fluid analysis results. Exam Narrative: General: WD/WN female in mild discomfort due to pain Heart: normal S1 and S2; no rub Lungs: clear to auscultation Abdomen: soft, nondistended, positive bowel sounds; + left flank pain Extremities: no cyanosis or clubbing; no edema Skin: warm and dry Objective Data Vital Signs Vital Signs: Vital Signs Temp Pulse Resp BP Pulse Ox O2 Del Method 05/14/23 08:00 Room Air 05/14/23 08:00 66 05/14/23 08:00 97.4 F L 63 18 101/53 L 97 05/14/23 04:00 71 05/14/23 00:00 70 05/13/23 20:00 76 05/13/23 20:00 Room Air 05/13/23 20:09 98.2 F 76 16 97/64 L 98 05/13/23 16:00 90 05/13/23 16:00 97.9 F 69 16 107/60 98 05/13/23 12:00 97 F L 64 16 94/48 L 98 05/13/23 12:00 69 Intake/Output Intake/Output: Intake & Output 05/11/23 05/12/23 05/13/23 05/14/23 23:59 23:59 23:59 23:59 Intake Total 1150 800 990 452 Output Total 689 2705 350 225 Balance 461 -1905 640 227 Meds/Results Medications: Active Medications Generic Name Dose Route Start Last Admin Trade Name Freq PRN Reason Stop Dose Admin Acetaminophen 650 mg 05/10/23 18:04 Acetaminophen 325 Mg Tablet PO Q4H PRN Mild Pain (1-3) or Fever Hydrocodone Bitart/Acetaminophen 1 tab 05/10/23 18:04 05/14/23 10:01 Hydrocodone/Acetaminophen (*Crx) 5-325 Mg Tablet PO 1 tab
--- NOTE | 2023-05-14 09:28 | P.PNNP_ITS ---
Progress Note: A&P Assessment and Plan (1) ESRD (end stage renal disease): Code(s): N18.6 - End stage renal disease Status: Chronic Assessment and Plan: * did not want to do PD yesterday evening due to pain * no critical electrolytes and volume status okay * will re-attempt CCPD tonight if able (2) Polycystic renal disease: Code(s): Q61.3 - Polycystic kidney, unspecified Status: Acute Assessment and Plan: * known history * multiple imaging studies have confirmed this diagnosis (3) Left flank pain: Code(s): R10.9 - Unspecified abdominal pain Status: Acute Assessment and Plan: * as noted by description and associated with left shoulder pain * extensive evaluation to date: * CTA chest negative for PE * troponins/EKG not suggestive of ischemia * CTA abd/pelvis without aneurysms or thrombi in abdominal arteries or evidence of free air * PD catheter in appropriate position by KUB * PD fluid analysis suggest peritonitis (blood and WBCs with + gram stain although exam not consistent) * suspect etiology perhaps air in PD tubing (but that would not explain PD fluid findings) versus possible infected cyst rupture * on IV and oral antibiotics * continue pain control (4) Shoulder pain: Code(s): M25.519 - Pain in unspecified shoulder Status: Acute Assessment and Plan: * see #3 (5) Hypertension: Code(s): I10 - Essential (primary) hypertension Status: Acute Assessment and Plan: * reasonable control * follow trend of hemodynamics (6) CHF (congestive heart failure): Qualifiers: Heart failure chronicity: chronic Heart failure type: unspecified Qualified Code(s): I50.9 - Heart failure, unspecified Code(s): I50.9 - Heart failure, unspecified Status: Chronic Assessment and Plan: * appears compensated * follow volume status (7) Erythropoietin deficiency anemia: Code(s): D63.1 - Anemia in chronic kidney disease Status: Acute Assessment and Plan: * H/H at goal for ESRD * no need for Epogen at this time * follow trend Will continue to follow. Subjective Date/time seen: 05/14/23 09:28 Interval history: Follow-up for end stage renal disease on peritoneal dialysis. Chart reviewed -- assuming care from Dr. Escalante; still with significant pain localized to her abomen and shoulder; did not do peritoneal dialysis yesterday evening due to the severity of her pain as well; transitioned to IV antibiotics given PD fluid analysis results. Exam Narrative: General: WD/WN female in mild discomfort due to pain Heart: normal S1 and S2; no rub Lungs: clear to auscultation Abdomen: soft, nondistended, positive bowel sounds; + left flank pain Extremities: no cyanosis or clubbing; no edema Skin: warm and dry Objective Data Vital Signs Vital Signs: Vital Signs Temp Pulse Resp BP Pulse Ox O2 Del Method 05/14/23 08:00 Room Air 05/14/23 08:00 66 05/14/23 08:00 97.4 F L 63 18 101/53 L 97 05/14/23 04:00 71 05/14/23 00:00 70 05/13/23 20:00 76 05/13/23 20:00 Room Air 05/13/23 20:09 98.2 F 76 16 97/64 L 98 05/13/23 16:00 90 05/13/23 16:00 97.9 F 69 16 107/60 98
[2023-05-14] MEDS: ONDANSETRON INJ 4 MG/2 ML VIAL IV PUSH (11:50)
[2023-05-14] MEDS: WATER FOR IRRIGATION, STERILE 1,000 ML BOTTLE 2000 ML (12:08)
--- NOTE | 2023-05-14 12:31 | PC.NURSE ---
This patient, Ginger Marshall, was transferred to [[id number] ] on 05/14/23 at 1231. Personal belongings sent with patient. Report given to [Payton ]. Appropriate documentation sent with patient.
--- NOTE | 2023-05-14 12:42 | PC.NURSE ---
This patient, Ginger Marshall, was received from IMU on 05/14/23 at 1235. Report from Grisel @ [phone]. Patient/family oriented to unit policies and routines
--- NOTE | 2023-05-14 13:11 | WPDPN ---
Progress Note: A&P Assessment and Plan (1) Chest pain: Qualifiers: Chest pain type: chest pain on breathing Qualified Code(s): R07.1 - Chest pain on breathing Code(s): R07.9 - Chest pain, unspecified Status: Acute (2) End-stage renal disease (ESRD): Code(s): N18.6 - End stage renal disease Status: Acute (3) Hypokalemia: Code(s): E87.6 - Hypokalemia Status: Acute (4) Left shoulder pain: Qualifiers: Chronicity: acute Qualified Code(s): M25.512 - Pain in left shoulder Code(s): M25.512 - Pain in left shoulder Status: Acute Plan The patient is having left shoulder and pleuritic left chest pain. Symptoms could be due to infection that is not quite showing up on x-ray. She could also have pleurisy with associated recent coughing rhinorrhea and other related symptoms. Pleurisy could also be due to possible underlying pulmonary embolism. The patient reports that she has been admitted multiple times in the past for pulmonary embolism rule out. She states her CTs always demonstrate an area that could be concerning for pulmonary embolism but the findings are weight is chronic and unchanged. 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 Will give the patient a dose of IV Solu-Medrol and nebulizer treatment to see if this does not help her symptoms. The any steroids of nothing also help reduce some inflammation. If the symptoms may persist and may try a muscle relaxer. The patient is not a candidate for NSAIDs given her polycystic kidney disease and need for dialysis. Pain medications have been provided Nephrology has been consulted for management of peritoneal dialysis. Patient does have some mild hypokalemia. Initially I had ordered a oral potassium supplement but on review of patient's chart had discontinued supplement immediately. Patient does have coronary disease but troponins have been flat. Will complete troponin profile and cardiology has been consulted from the ER. Patient will be monitored in IMU. Will continue the patient's home Plavix and aspirin. 05/13/2023 interval history: patient stats that she may have air in her? PD tubing that may be causing her left sided flank and shoulder pain, however CT scan of abdomen did not show any air, discuss with Dr. [place] suspect patient have rupture? of one of her cyst from polycystic, patient PD fluids showed high white counts, suspect cause of her pain, and water quality analyst has started the patient on Aztreonam in PD fluids, patient was given pain medication and stats pain is better now,? patient is seen by rouge sifter does not suspect CAD,? and water quality analyst and further recommendation to follow. Subjective Date/time seen: 05/13/23 13:11 Interval history: The patient is having left shoulder and pleuritic left chest pain.? Symptoms could be due to infection that is not quite showing up on x-ray.? She could also have pleurisy with associated recent coughing rhinorrhea and other related symptoms.? Pleurisy could also be due to possible underlying pulmonary embolism.? The patient reports that she has been admitted multiple times in the past for pulmonary embolism rule out.? She states her CTs always demonstrate an area that could be concerning for pulmonary embolism but the findings are weight is chronic and unchanged.? She states she always has a chronic residual amount of fluid where she had a prolonged chest tube after her complicated valve replacement.? Will give the patient a dose of IV Solu-Medrol and nebulizer treatment to see if this does not help her symptoms.? The any steroids of nothing also help reduce some inflammation.? If the symptoms may persist and may try a muscle relaxer.? The patient is not a candidate for NSAIDs given her polycystic kidney disease and need for dialysis.? Pain medications have been provided Nephr
--- NOTE | 2023-05-14 13:27 | WPDPN ---
Progress Note: A&P Assessment and Plan (1) Chest pain: Qualifiers: Chest pain type: chest pain on breathing Qualified Code(s): R07.1 - Chest pain on breathing Code(s): R07.9 - Chest pain, unspecified Status: Acute (2) End-stage renal disease (ESRD): Code(s): N18.6 - End stage renal disease Status: Acute (3) Hypokalemia: Code(s): E87.6 - Hypokalemia Status: Acute (4) Left shoulder pain: Qualifiers: Chronicity: acute Qualified Code(s): M25.512 - Pain in left shoulder Code(s): M25.512 - Pain in left shoulder Status: Acute Plan The patient is having left shoulder and pleuritic left chest pain. Symptoms could be due to infection that is not quite showing up on x-ray. She could also have pleurisy with associated recent coughing rhinorrhea and other related symptoms. Pleurisy could also be due to possible underlying pulmonary embolism. The patient reports that she has been admitted multiple times in the past for pulmonary embolism rule out. She states her CTs always demonstrate an area that could be concerning for pulmonary embolism but the findings are weight is chronic and unchanged. 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 Will give the patient a dose of IV Solu-Medrol and nebulizer treatment to see if this does not help her symptoms. The any steroids of nothing also help reduce some inflammation. If the symptoms may persist and may try a muscle relaxer. The patient is not a candidate for NSAIDs given her polycystic kidney disease and need for dialysis. Pain medications have been provided Nephrology has been consulted for management of peritoneal dialysis. Patient does have some mild hypokalemia. Initially I had ordered a oral potassium supplement but on review of patient's chart had discontinued supplement immediately. Patient does have coronary disease but troponins have been flat. Will complete troponin profile and cardiology has been consulted from the ER. Patient will be monitored in IMU. Will continue the patient's home Plavix and aspirin. 05/14/2023 interval history: patient stated that she may have air in her? PD tubing that may be causing her left sided flank and shoulder pain, however CT scan of abdomen did not show any air, discuss with Dr. [place] suspect patient have rupture? of one of her cyst from polycystic, patient PD fluids showed high white counts, suspect infection cause of her pain, and pharmacy coordinator has started the patient on Aztreonam in PD fluids, blood and PD fluids no growth so far, patient pain is persisting, patient was given pain medication and stats pain is better now,? patient is seen by scheduling specialist does not suspect CAD,? and pharmacy coordinator and further recommendation to follow. Subjective Date/time seen: 05/14/23 13:27 Interval history: The patient is having left shoulder and pleuritic left chest pain.? Symptoms could be due to infection that is not quite showing up on x-ray.? She could also have pleurisy with associated recent coughing rhinorrhea and other related symptoms.? Pleurisy could also be due to possible underlying pulmonary embolism.? The patient reports that she has been admitted multiple times in the past for pulmonary embolism rule out.? She states her CTs always demonstrate an area that could be concerning for pulmonary embolism but the findings are weight is chronic and unchanged.? She states she always has a chronic residual amount of fluid where she had a prolonged chest tube after her complicated valve replacement.? Will give the patient a dose of IV Solu-Medrol and nebulizer treatment to see if this does not help her symptoms.? The any steroids of nothing also help reduce some inflammation.? If the symptoms may persist and may try a muscle relaxer.? The patient is not a candidate for NSAIDs given her polycystic kidn
[2023-05-14 13:48] VITALS: BP 95/39; PULSE 62; RESP 16; TEMP 36.6; O2SAT 90
--- NOTE | 2023-05-14 14:17 | PM.PNCARD ---
Progress Note: A&P Assessment and Plan (1) CAD (coronary artery disease): Qualifiers: Associated angina: without angina Coronary Disease-Associated Artery/Lesion type: red devil artery [place] vs. transplanted heart: red devil heart Qualified Code(s): I25.10 - Atherosclerotic heart disease of red devil coronary artery without angina pectoris Code(s): I25.10 - Atherosclerotic heart disease of red devil coronary artery without angina pectoris Status: Chronic Assessment and Plan: She does have significant CAD as detailed in the HPI. Recent PCI and restenting of vein graft to the LAD. Shoulder pain is similar to what she had presented with at the time of her myocardial infarction last fall however troponins are negative in nitroglycerin did not help her symptoms. Continue aspirin and clopidogrel. (2) Left shoulder pain: Qualifiers: Chronicity: acute Qualified Code(s): M25.512 - Pain in left shoulder Code(s): M25.512 - Pain in left shoulder Status: Acute Assessment and Plan: Atypical pain but yet she states that it feels similar to her myocardial infarction pain. By examination, it seems that this is musculoskeletal but by description from patient, cannot exclude this being related to her heart. However, given negative troponin, pain most likely noncardiac. She is currently being treated for possible ruptured or hemorrhagic renal cyst, which is likely causing her pain. (3) End-stage renal disease (ESRD): Code(s): N18.6 - End stage renal disease Status: Acute Assessment and Plan: On peritoneal dialysis. Per Nephrology with left flank pain. Nephrology involved. On intraperitonal abx for possible infected renal cyst (4) History of aortic valve replacement: Code(s): Z95.2 - Presence of prosthetic heart valve Status: Acute Assessment and Plan: With significant qamar perivalvular aortic insufficiency (5) Ischemic cardiomyopathy: Code(s): I25.5 - Ischemic cardiomyopathy Status: Acute Assessment and Plan: Mild with EF 45-50% Plan Although complex cardiac history she has no active cardiac issues currently. Cardiology will sign off. Please call with any questions or concerns. Subjective Date/time seen: 05/14/23 14:17 Interval history: Chief Complaint: Pain 52-year-old female with past medical history of polycystic kidney disease on peritoneal dialysis, is single-vessel coronary artery disease status post CABG and followed by stent, aortic stenosis status post valve replacement, cardiomyopathy with EF of 45-50% radiation pulmonary fibrosis due to prior neuroblastoma Treatment who presented to the ER with chest pain. Date of service 05/12/2023: Is currently having another severe episode of left flank pain. She does have some shoulder pain with it. Symptoms have improved with pain medications and by pushing on her shoulder. Nitroglycerin yesterday did not help her discomfort. No chest pain per se and no significant shortness of breath Date of service 05/13/2023: Still complaining of some left flank pain and left shoulder pain. Already rec'd pain medication this morning so not in significant pain at the time of my visit. No chest pain. States she cant take deep breaths because of the pain but does not have shortness of breath. Date of service 05/14/2023: Abdominal pain and shoulder pain persist today. She has refused 2 dialysis treatments because being dialyzed increases her pain. No chest pain or shortness of breath. Review of Systems Review of Systems: All systems reviewed & are unremarkable except as noted in HPI and below Constitutional: Constitutional: Denies body ache(s) and Denies excessive sweating Eyes: Eyes: Denies blurry vision ENT: Reports Normal hearing present Cardiovascular: Cardiovascular: Denies chest pain, Denies palpitations and Reports dyspnea Respiratory: Respiratory: Reports dyspnea
[2023-05-14] MEDS: AZTREONAM 2 GM in SODIUM CHLORIDE 0.9% IV 100 ML 200 ML IVPB (15:24)
[2023-05-14 20:36] VITALS: BP 133/70; PULSE 70; RESP 16; TEMP 36.2; O2SAT 98
[2023-05-14 22:02] VITALS: BP 95/39; PULSE 62; RESP 16; TEMP 36.6
[2023-05-15] MEDS: HYDROcodone/acetaminophen (*CRX) 5-325 MG TABLET 1 TAB PO ×3 (01:54→18:28)
[2023-05-15 04:50] VITALS: BP 106/57; PULSE 60; RESP 16; TEMP 36.1; O2SAT 97
[2023-05-15] MEDS: LEVOTHYROXINE SODIUM 112 MCG TABLET PO (05:39)
[2023-05-15 06:07] LABS: Hematocrit 36.4 % (37.0-47.0); Hemoglobin 11.5 g/dL (12.0-15.0); Mean Corpuscular HGB Conc 31.6 g/dl (32-36); Mean Corpuscular Hemoglobin 28.9 pg (26-34); Mean Corpuscular Volume 91.5 fl (80-100); Mean Platelet Volume 10.2 fl (7.4-10.4); Platelet Count Result 148 k/mm3 (150-375); Red Blood Count 3.98 M/mm3 (4.2-5.4); Red Cell Distribution Width 14.2 % (11.5-14.5); White Blood Count 4.8 K/mm3 (4.5-10.0)
[2023-05-15 06:23] LABS: Albumin Level 3.3 g/dL (3.5-5.1); Anion Gap 12 mmol/L (8-16); Blood Urea Nitrogen 61 mg/dL (7-17); Calcium 8.2 mg/dL (8.4-10.2); Carbon Dioxide 25 mmol/L (22-30); Chloride 95 mmol/L (98-107); Estimated CRCL calculation 6 ml/min; Estimated Glomerular Filt Rate 5; Glucose 138 mg/dL (65-110); Magnesium 2.4 mg/dL (1.6-2.3); Phosphorus 7.4 mg/dL (2.5-4.5); Potassium 3.7 mmol/L (3.4-5.0); Sodium 132 mmol/L (137-145)
[2023-05-15 06:42] LABS: Vancomycin Trough 15.7 ug/mL (10.0-20.0)
[2023-05-15 07:20] VITALS: BP 106/57; PULSE 60; RESP 16; TEMP 36.1
[2023-05-15] MEDS: GENTAMICIN SULFATE 0.1% CR 15 GM TUBE 1 APPLIC TOPICAL (09:07)
[2023-05-15] MEDS: CLOPIDOGREL BISULFATE 75 MG TABLET PO (09:07)
[2023-05-15] MEDS: ASPIRIN 81 MG ENTERIC TABLET PO (09:07)
[2023-05-15] MEDS: HEPARIN SODIUM 5,000 UNITS/ML VIAL 5000 UNITS SUB-Q ×2 (09:07→20:22)
[2023-05-15] MEDS: MULTIVITAMINS THERAPEUTIC TAB (*BKC) 1 TABLET PO (09:07)
[2023-05-15] MEDS: CALCIUM ACETATE 667 MG TABLET PO ×3 (09:07→16:38)
--- NOTE | 2023-05-15 13:45 | P.PNNP_ITS ---
Progress Note: A&P Assessment and Plan (1) ESRD (end stage renal disease): Code(s): N18.6 - End stage renal disease Status: Chronic Assessment and Plan: * continue nightly CCPD treatments * follow electrolytes, volume status, and clearance * replace K+ PRN (2) Polycystic renal disease: Code(s): Q61.3 - Polycystic kidney, unspecified Status: Acute Assessment and Plan: * known history * multiple imaging studies have confirmed this diagnosis (3) Left flank pain: Code(s): R10.9 - Unspecified abdominal pain Status: Acute Assessment and Plan: * as noted by description and associated with left shoulder pain * extensive evaluation to date: * CTA chest negative for PE * troponins/EKG not suggestive of ischemia * CTA abd/pelvis without aneurysms or thrombi in abdominal arteries or evidence of free air * PD catheter in appropriate position by KUB * PD fluid analysis suggest peritonitis (blood and WBCs with + gram stain although exam not consistent) * suspect etiology perhaps air in PD tubing (but that would not explain PD fluid findings) versus possible infected/hemmorhagic cyst rupture -- favor the latter * on IV and oral antibiotics * continue pain control (4) Shoulder pain: Code(s): M25.519 - Pain in unspecified shoulder Status: Acute Assessment and Plan: * see #3 (5) Hypertension: Code(s): I10 - Essential (primary) hypertension Status: Acute Assessment and Plan: * reasonable control * follow trend of hemodynamics (6) CHF (congestive heart failure): Qualifiers: Heart failure type: unspecified Heart failure chronicity: chronic Qualified Code(s): I50.9 - Heart failure, unspecified Code(s): I50.9 - Heart failure, unspecified Status: Chronic Assessment and Plan: * appears compensated * follow volume status (7) Erythropoietin deficiency anemia: Code(s): D63.1 - Anemia in chronic kidney disease Status: Acute Assessment and Plan: * H/H at goal for ESRD * no need for Epogen at this time * follow trend Will continue to follow. Subjective Date/time seen: 05/15/23 13:45 Interval history: Follow-up for end stage renal disease on peritoneal dialysis. Tolerated peritoneal dialysis treatment overnight without any issues or pro blems; dialysis nurse noted this AM that PD fluid drainage bag was fairly bloody in appearance; left flank + shoulder pain still present but tolerable which is an improvement per patient; no other acute issues/events overnight or earlier this AM. Exam Narrative: General: WD/WN female in mild discomfort due to pain Heart: normal S1 and S2; no rub Lungs: clear to auscultation Abdomen: soft, nondistended, positive bowel sounds; + left flank pain (but better) Extremities: no cyanosis or clubbing; no edema Skin: warm and intact Objective Data Vital Signs Vital Signs: Vital Signs Temp Pulse Resp BP Pulse Ox O2 Del Method 05/15/23 13:40 96.7 F L 69 18 117/69 100 05/15/23 08:00 Room Air 05/15/23 07:20 97 F L 60 16 106/57 L 05/15/23 04:50 97 F L 60 16 106/57 L 97 05/14/23 22:02 97.9 F 62 16 95/39 L Room Air 05/14/23 20:36 97.2 F L 70 16 133/70 98 Intake/Outp
--- NOTE | 2023-05-15 13:45 | PM.PNNEP ---
Progress Note: A&P Assessment and Plan (1) ESRD (end stage renal disease): Code(s): N18.6 - End stage renal disease Status: Chronic Assessment and Plan: continue nightly CCPD treatments follow electrolytes, volume status, and clearance replace K+ PRN (2) Polycystic renal disease: Code(s): Q61.3 - Polycystic kidney, unspecified Status: Acute Assessment and Plan: known history multiple imaging studies have confirmed this diagnosis (3) Left flank pain: Code(s): R10.9 - Unspecified abdominal pain Status: Acute Assessment and Plan: as noted by description and associated with left shoulder pain extensive evaluation to date: CTA chest negative for PE troponins/EKG not suggestive of ischemia CTA abd/pelvis without aneurysms or thrombi in abdominal arteries or evidence of free air PD catheter in appropriate position by KUB PD fluid analysis suggest peritonitis (blood and WBCs with + gram stain although exam not consistent) suspect etiology perhaps air in PD tubing (but that would not explain PD fluid findings) versus possible infected/hemmorhagic cyst rupture -- favor the latter on IV and oral antibiotics continue pain control (4) Shoulder pain: Code(s): M25.519 - Pain in unspecified shoulder Status: Acute Assessment and Plan: see #3 (5) Hypertension: Code(s): I10 - Essential (primary) hypertension Status: Acute Assessment and Plan: reasonable control follow trend of hemodynamics (6) CHF (congestive heart failure): Qualifiers: Heart failure type: unspecified Heart failure chronicity: chronic Qualified Code(s): I50.9 - Heart failure, unspecified Code(s): I50.9 - Heart failure, unspecified Status: Chronic Assessment and Plan: appears compensated follow volume status (7) Erythropoietin deficiency anemia: Code(s): D63.1 - Anemia in chronic kidney disease Status: Acute Assessment and Plan: H/H at goal for ESRD no need for Epogen at this time follow trend Will continue to follow. Subjective Date/time seen: 05/15/23 13:45 Interval history: Follow-up for end stage renal disease on peritoneal dialysis. Tolerated peritoneal dialysis treatment overnight without any issues or problems; dialysis nurse noted this AM that PD fluid drainage bag was fairly bloody in appearance; left flank + shoulder pain still present but tolerable which is an improvement per patient; no other acute issues/events overnight or earlier this AM. Exam Narrative: General: WD/WN female in mild discomfort due to pain Heart: normal S1 and S2; no rub Lungs: clear to auscultation Abdomen: soft, nondistended, positive bowel sounds; + left flank pain (but better) Extremities: no cyanosis or clubbing; no edema Skin: warm and intact Objective Data Vital Signs Vital Signs: Vital Signs Temp Pulse Resp BP Pulse Ox O2 Del Method 05/15/23 13:40 96.7 F L 69 18 117/69 100 05/15/23 08:00 Room Air 05/15/23 07:20 97 F L 60 16 106/57 L 05/15/23 04:50 97 F L 60 16 106/57 L 97 05/14/23 22:02 97.9 F 62 16 95/39 L Room Air 05/14/23 20:36 97.2 F L 70 16 133/70 98 Intake/Output Intake/Output: Intake & Output 05/12/23 05/13/23 05/14/23 05/15/23 23:59 23:59 23:59 23:59 Intake Total 551 512 0655 1704 Output Total 2705 234 836 8915 Balance -1905 640 942 692 Meds/Results Medications: Active Medications Generic Name Dose Route Start Last Admin Trade Name Freq PRN Reason Stop Dose Admin Acetaminophen 650 mg 05/10/23 18:04 Acetaminophen 325 Mg Tablet PO Q4H PRN Mild Pain (1-3) or Fever Hydrocodone Bitart/Acetaminophen 1 tab 05/10/23 18:04 05/15/23 18:28 Hydrocodone/Acetaminophen (*Crx) 5-325 Mg Tablet PO 1 tab Q4H PRN Administration Pain Rated 4-6 Albuterol 2 puff 07
[2023-05-15 13:50] VITALS: BP 117/69; PULSE 69; RESP 18; TEMP 35.9; O2SAT 100
--- NOTE | 2023-05-15 14:08 | PCCCNOTE ---
On 05/15/23, the student, [Kortney Mensah], provided care and completed [facility] documentation on this patient. I have reviewed the student's documentation and agree with the findings.
[2023-05-15] MEDS: AZTREONAM 2 GM in SODIUM CHLORIDE 0.9% IV 100 ML 200 ML IVPB (15:06)
--- NOTE | 2023-05-15 15:54 | WPDPN ---
Progress Note: A&P Assessment and Plan (1) Chest pain: Qualifiers: Chest pain type: chest pain on breathing Qualified Code(s): R07.1 - Chest pain on breathing Code(s): R07.9 - Chest pain, unspecified Status: Acute (2) End-stage renal disease (ESRD): Code(s): N18.6 - End stage renal disease Status: Acute (3) Hypokalemia: Code(s): E87.6 - Hypokalemia Status: Acute (4) Left shoulder pain: Qualifiers: Chronicity: acute Qualified Code(s): M25.512 - Pain in left shoulder Code(s): M25.512 - Pain in left shoulder Status: Acute Plan The patient is having left shoulder and pleuritic left chest pain. Symptoms could be due to infection that is not quite showing up on x-ray. She could also have pleurisy with associated recent coughing rhinorrhea and other related symptoms. Pleurisy could also be due to possible underlying pulmonary embolism. The patient reports that she has been admitted multiple times in the past for pulmonary embolism rule out. She states her CTs always demonstrate an area that could be concerning for pulmonary embolism but the findings are weight is chronic and unchanged. 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 Will give the patient a dose of IV Solu-Medrol and nebulizer treatment to see if this does not help her symptoms. The any steroids of nothing also help reduce some inflammation. If the symptoms may persist and may try a muscle relaxer. The patient is not a candidate for NSAIDs given her polycystic kidney disease and need for dialysis. Pain medications have been provided Nephrology has been consulted for management of peritoneal dialysis. Patient does have some mild hypokalemia. Initially I had ordered a oral potassium supplement but on review of patient's chart had discontinued supplement immediately. Patient does have coronary disease but troponins have been flat. Will complete troponin profile and cardiology has been consulted from the ER. Patient will be monitored in IMU. Will continue the patient's home Plavix and aspirin. 05/15/2023 interval history: patient stated that she may have air in her? PD tubing that may be causing her left sided flank and shoulder pain, however CT scan of abdomen did not show any air, discuss with Dr. [place] suspect patient have rupture? of one of her cyst from polycystic, patient PD fluids showed high white counts, suspect infection cause of her pain, and master rigger has started the patient on Aztreonam in PD fluids, blood and PD fluids no growth so far, patient pain is persisting, patient was given pain medication and stats pain is perisiting,? today patient c/o left arm sweling and pain, concerning of DVT, dopplor is negative for clots, patient is seen by branch operations coordinator does not suspect CAD,? and master rigger and further recommendation to follow. Subjective Date/time seen: 05/15/23 15:54 Interval history: The patient is having left shoulder and pleuritic left chest pain. Symptoms could be due to infection that is not quite showing up on x-ray. She could also have pleurisy with associated recent coughing rhinorrhea and other related symptoms. Pleurisy could also be due to possible underlying pulmonary embolism. The patient reports that she has been admitted multiple times in the past for pulmonary embolism rule out. She states her CTs always demonstrate an area that could be concerning for pulmonary embolism but the findings are weight is chronic and unchanged. 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 Will give the patient a dose of IV Solu-Medrol and nebulizer treatment to see if this does not help her symptoms. The any steroids of nothing also help reduce some inflammation. If the symptoms may persist a
[2023-05-15 18:19] VITALS: BP 117/68; PULSE 69; RESP 18; TEMP 35.9
[2023-05-15 20:55] VITALS: BP 110/66; PULSE 67; RESP 16; TEMP 36.6; O2SAT 100
[2023-05-16] VITALS (7 sets, daily range): BP systolic 96–120; BP diastolic 48–61; PULSE 61–78; RESP 16; TEMP 36.1–36.3; O2SAT 93–100
[2023-05-16] MEDS: fentaNYL CITRATE INJ (*CRX) 100 MCG/2 ML VIAL 50 MCG IV PUSH (04:51)
[2023-05-16] MEDS: LEVOTHYROXINE SODIUM 112 MCG TABLET PO (05:47)
[2023-05-16 07:23] LABS: Hematocrit 37.1 % (37.0-47.0); Hemoglobin 11.5 g/dL (12.0-15.0); Mean Corpuscular Hemoglobin 28.9 pg (26-34); Mean Corpuscular Volume 93.2 fl (80-100); Mean Platelet Volume 10.6 fl (7.4-10.4); Platelet Count Result 127 k/mm3 (150-375); Red Blood Count 3.98 M/mm3 (4.2-5.4); Red Cell Distribution Width 14.6 % (11.5-14.5); White Blood Count 4.2 K/mm3 (4.5-10.0)
[2023-05-16 07:37] LABS: Albumin Level 2.9 g/dL (3.5-5.1); Anion Gap 12 mmol/L (8-16); Blood Urea Nitrogen 60 mg/dL (7-17); Carbon Dioxide 22 mmol/L (22-30); Chloride 98 mmol/L (98-107); Estimated CRCL calculation 6 ml/min; Estimated Glomerular Filt Rate 5; Glucose 88 mg/dL (65-110); Magnesium 2.4 mg/dL (1.6-2.3); Phosphorus 7.3 mg/dL (2.5-4.5); Potassium 4.2 mmol/L (3.4-5.0); Sodium 132 mmol/L (137-145)
[2023-05-16] MEDS: MULTIVITAMINS THERAPEUTIC TAB (*BKC) 1 TABLET PO (08:10)
[2023-05-16] MEDS: CALCIUM ACETATE 667 MG TABLET PO ×2 (08:10→16:41)
[2023-05-16] MEDS: CLOPIDOGREL BISULFATE 75 MG TABLET PO (08:10)
[2023-05-16] MEDS: HEPARIN SODIUM 5,000 UNITS/ML VIAL 5000 UNITS SUB-Q ×2 (08:11→20:18)
[2023-05-16] MEDS: ASPIRIN 81 MG ENTERIC TABLET PO (08:13)
[2023-05-16] MEDS: HYDROcodone/acetaminophen (*CRX) 5-325 MG TABLET 1 TAB PO ×2 (08:13→21:04)
[2023-05-16] MEDS: ONDANSETRON INJ 4 MG/2 ML VIAL IV PUSH (08:58)
--- NOTE | 2023-05-16 13:37 | PCCCNOTE ---
On 05/16/23, the student, [Jessica Mensah ], provided care and completed [facility] documentation on this patient. I have reviewed the student's documentation and agree with the findings.
--- NOTE | 2023-05-16 13:41 | PM.PNNEP ---
Progress Note: A&P Assessment and Plan (1) ESRD (end stage renal disease): Code(s): N18.6 - End stage renal disease Status: Chronic Assessment and Plan: continue nightly CCPD treatments follow electrolytes, volume status, and clearance replace K+ PRN (2) Polycystic renal disease: Code(s): Q61.3 - Polycystic kidney, unspecified Status: Acute Assessment and Plan: known history multiple imaging studies have confirmed this diagnosis (3) Left flank pain: Code(s): R10.9 - Unspecified abdominal pain Status: Acute Assessment and Plan: as noted by description and associated with left shoulder pain extensive evaluation to date: CTA chest negative for PE troponins/EKG not suggestive of ischemia CTA abd/pelvis without aneurysms or thrombi in abdominal arteries or evidence of free air PD catheter in appropriate position by KUB PD fluid analysis suggest peritonitis (blood and WBCs with + gram stain although exam not consistent) suspect etiology perhaps air in PD tubing (but that would not explain PD fluid findings) versus possible infected/hemmorhagic cyst rupture -- favor the latter on IV antibiotics -- will transition to oral antibiotics continue pain control (4) Shoulder pain: Code(s): M25.519 - Pain in unspecified shoulder Status: Acute Assessment and Plan: see #3 (5) Hypertension: Code(s): I10 - Essential (primary) hypertension Status: Acute Assessment and Plan: reasonable control follow trend of hemodynamics (6) CHF (congestive heart failure): Qualifiers: Heart failure chronicity: chronic Heart failure type: unspecified Qualified Code(s): I50.9 - Heart failure, unspecified Code(s): I50.9 - Heart failure, unspecified Status: Chronic Assessment and Plan: appears compensated follow volume status (7) Erythropoietin deficiency anemia: Code(s): D63.1 - Anemia in chronic kidney disease Status: Acute Assessment and Plan: H/H at goal for ESRD no need for Epogen at this time follow trend Would not be opposed to discharge tomorrow from renal perspective if otherwise medically stable -- would discharge on some oral pain medications and SS bactrim (1 tab bid) x 1 week. Will continue to follow. Subjective Date/time seen: 05/16/23 13:41 Interval history: Follow-up for end stage renal disease on peritoneal dialysis. Tolerated peritoneal dialysis treatment overnight without any issues or problems; PD fluid this morning was quite clear; left flank and should pain present but remains tolerable at the time of my visit; no acute distress noted. Exam Narrative: General: WD/WN female in mild discomfort due to pain Heart: normal S1 and S2; no rub Lungs: clear to auscultation Abdomen: soft, nondistended, positive bowel sounds Extremities: no cyanosis or clubbing; no edema Skin: no rash or nodules Objective Data Vital Signs Vital Signs: Vital Signs Temp Pulse Resp BP Pulse Ox O2 Del Method 05/16/23 13:37 96.9 F L 70 16 96/57 L 98 05/16/23 08:00 100 Room Air 05/16/23 07:00 97.3 F L 61 16 120/61 05/16/23 06:52 97.3 F L 61 16 120/61 100 05/15/23 20:55 97.8 F 67 16 110/66 100 05/15/23 18:19 96.7 F L 69 18 117/68 Room Air Intake/Output Intake/Output: Intake & Output 05/13/23 05/14/23 05/15/23 05/16/23 23:59 23:59 23:59 23:59 Intake Total 990 1292 1704 700 Output Total 301 753 6515 497 Balance 640 942 692 203 Meds/Results Medications: Active Medications Generic Name Dose Route Start Last Admin Trade Name Freq PRN Reason Stop Dose Admin Acetaminophen 650 mg 05/10/23 18:04 Acetaminophen 325 Mg Tablet PO Q4H PRN Mild Pain (1-3) or Fever Hydrocodone Bitart/Acetaminophen 1 tab 05/10/23 18:04 05/16/23 08:13 Hydrocodone/Acetaminophen (*Crx) 5-32
--- NOTE | 2023-05-16 13:41 | P.PNNP_ITS ---
Progress Note: A&P Assessment and Plan (1) ESRD (end stage renal disease): Code(s): N18.6 - End stage renal disease Status: Chronic Assessment and Plan: * continue nightly CCPD treatments * follow electrolytes, volume status, and clearance * replace K+ PRN (2) Polycystic renal disease: Code(s): Q61.3 - Polycystic kidney, unspecified Status: Acute Assessment and Plan: * known history * multiple imaging studies have confirmed this diagnosis (3) Left flank pain: Code(s): R10.9 - Unspecified abdominal pain Status: Acute Assessment and Plan: * as noted by description and associated with left shoulder pain * extensive evaluation to date: * CTA chest negative for PE * troponins/EKG not suggestive of ischemia * CTA abd/pelvis without aneurysms or thrombi in abdominal arteries or evidence of free air * PD catheter in appropriate position by KUB * PD fluid analysis suggest peritonitis (blood and WBCs with + gram stain although exam not consistent) * suspect etiology perhaps air in PD tubing (but that would not explain PD fluid findings) versus possible infected/hemmorhagic cyst rupture -- favor the latter * on IV antibiotics -- will transition to oral antibiotics * continue pain control (4) Shoulder pain: Code(s): M25.519 - Pain in unspecified shoulder Status: Acute Assessment and Plan: * see #3 (5) Hypertension: Code(s): I10 - Essential (primary) hypertension Status: Acute Assessment and Plan: * reasonable control * follow trend of hemodynamics (6) CHF (congestive heart failure): Qualifiers: Heart failure chronicity: chronic Heart failure type: unspecified Qualified Code(s): I50.9 - Heart failure, unspecified Code(s): I50.9 - Heart failure, unspecified Status: Chronic Assessment and Plan: * appears compensated * follow volume status (7) Erythropoietin deficiency anemia: Code(s): D63.1 - Anemia in chronic kidney disease Status: Acute Assessment and Plan: * H/H at goal for ESRD * no need for Epogen at this time * follow trend Would not be opposed to discharge tomorrow from renal perspective if otherwise medically stable -- would discharge on some oral pain medications and SS bactrim (1 tab bid) x 1 week. Will continue to follow. Subjective Date/time seen: 05/16/23 13:41 Interval history: Follow-up for end stage renal disease on peritoneal dialysis. Tolerated peritoneal dialysis treatment overnight without any issues or problems; PD fluid this morning was quite clear; left flank and should pain present but remains tolerable at the time of my visit; no acute distress noted. Exam Narrative: General: WD/WN female in mild discomfort due to pain Heart: normal S1 and S2; no rub Lungs: clear to auscultation Abdomen: soft, nondistended, positive bowel sounds Extremities: no cyanosis or clubbing; no edema Skin: no rash or nodules Objective Data Vital Signs Vital Signs: Vital Signs Temp Pulse Resp BP Pulse Ox O2 Del Method 05/16/23 13:37 96.9 F L 70 16 96/57 L 98 05/16/23 08:00 100 Room Air 05/16/23 07:00 97.3 F L 61 16 120/61 05/16/23 06:52 97.3 F L 61 16 120/61 100 05/15/23 20:55 97.8 F 67 16 110/
[2023-05-16] MEDS: AZTREONAM 2 GM in SODIUM CHLORIDE 0.9% IV 100 ML IVPB (14:16)
--- NOTE | 2023-05-16 15:12 | WPDPN ---
Progress Note: A&P Assessment and Plan (1) Chest pain: Qualifiers: Chest pain type: chest pain on breathing Qualified Code(s): R07.1 - Chest pain on breathing Code(s): R07.9 - Chest pain, unspecified Status: Acute (2) End-stage renal disease (ESRD): Code(s): N18.6 - End stage renal disease Status: Acute (3) Hypokalemia: Code(s): E87.6 - Hypokalemia Status: Acute (4) Left shoulder pain: Qualifiers: Chronicity: acute Qualified Code(s): M25.512 - Pain in left shoulder Code(s): M25.512 - Pain in left shoulder Status: Acute Plan The patient is having left shoulder and pleuritic left chest pain. Symptoms could be due to infection that is not quite showing up on x-ray. She could also have pleurisy with associated recent coughing rhinorrhea and other related symptoms. Pleurisy could also be due to possible underlying pulmonary embolism. The patient reports that she has been admitted multiple times in the past for pulmonary embolism rule out. She states her CTs always demonstrate an area that could be concerning for pulmonary embolism but the findings are weight is chronic and unchanged. 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 Will give the patient a dose of IV Solu-Medrol and nebulizer treatment to see if this does not help her symptoms. The any steroids of nothing also help reduce some inflammation. If the symptoms may persist and may try a muscle relaxer. The patient is not a candidate for NSAIDs given her polycystic kidney disease and need for dialysis. Pain medications have been provided Nephrology has been consulted for management of peritoneal dialysis. Patient does have some mild hypokalemia. Initially I had ordered a oral potassium supplement but on review of patient's chart had discontinued supplement immediately. Patient does have coronary disease but troponins have been flat. Will complete troponin profile and cardiology has been consulted from the ER. Patient will be monitored in IMU. Will continue the patient's home Plavix and aspirin. 05/16/2023 interval history: patient stated that she may have air in her? PD tubing that may be causing her left sided flank and shoulder pain, however CT scan of abdomen did not show any air, discuss with Dr. [place] suspect patient have rupture? of one of her cyst from polycystic, patient PD fluids showed high white counts, suspect infection cause of her pain, and oceanographer geological has started the patient on Aztreonam in PD fluids, blood and PD fluids no growth so far, patient pain is persisting but there is some improvement patient was given pain medication,? 05/15 patient c/o left arm swelling and pain, concerning of DVT, dopplor was negative for clots, patient is seen by radio communications mechanician does not suspect CAD,? and oceanographer geological and further recommendation to follow. Subjective Date/time seen: 05/16/23 15:12 Interval history: The patient is having left shoulder and pleuritic left chest pain. Symptoms could be due to infection that is not quite showing up on x-ray. She could also have pleurisy with associated recent coughing rhinorrhea and other related symptoms. Pleurisy could also be due to possible underlying pulmonary embolism. The patient reports that she has been admitted multiple times in the past for pulmonary embolism rule out. She states her CTs always demonstrate an area that could be concerning for pulmonary embolism but the findings are weight is chronic and unchanged. 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 Will give the patient a dose of IV Solu-Medrol and nebulizer treatment to see if this does not help her symptoms. The any steroids of nothing also help reduce some inflammation. If the symptoms may persi
[2023-05-17] MEDS: LEVOTHYROXINE SODIUM 112 MCG TABLET PO (05:32)
[2023-05-17 05:55] LABS: Hematocrit 36.5 % (37.0-47.0); Hemoglobin 11.4 g/dL (12.0-15.0); Mean Corpuscular HGB Conc 31.2 g/dl (32-36); Mean Corpuscular Hemoglobin 28.9 pg (26-34); Mean Corpuscular Volume 92.4 fl (80-100); Mean Platelet Volume 10.1 fl (7.4-10.4); Platelet Count Result 124 k/mm3 (150-375); Red Blood Count 3.95 M/mm3 (4.2-5.4); Red Cell Distribution Width 14.4 % (11.5-14.5); White Blood Count 3.8 K/mm3 (4.5-10.0)
[2023-05-17 06:07] LABS: Albumin Level 2.8 g/dL (3.5-5.1); Anion Gap 12 mmol/L (8-16); Blood Urea Nitrogen 60 mg/dL (7-17); Calcium 7.8 mg/dL (8.4-10.2); Carbon Dioxide 25 mmol/L (22-30); Chloride 97 mmol/L (98-107); Estimated CRCL calculation 6 ml/min; Estimated Glomerular Filt Rate 5; Glucose 79 mg/dL (65-110); Magnesium 2.3 mg/dL (1.6-2.3); Phosphorus 7.4 mg/dL (2.5-4.5); Potassium 4.1 mmol/L (3.4-5.0); Sodium 134 mmol/L (137-145)
[2023-05-17 06:41] VITALS: BP 94/46; PULSE 66; RESP 16; TEMP 36.3; O2SAT 96
[2023-05-17 06:49] LABS: Vancomycin Random 19.2 ug/mL (10-20)
[2023-05-17] MEDS: CLOPIDOGREL BISULFATE 75 MG TABLET PO (08:05)
[2023-05-17] MEDS: SULFAMETHOXAZOLE/TRIMETHOPRIM 800/160 MG DS TABLET 1 TAB PO (08:05)
[2023-05-17] MEDS: HYDROcodone/acetaminophen (*CRX) 5-325 MG TABLET 1 TAB PO (08:05)
[2023-05-17] MEDS: CALCIUM ACETATE 667 MG TABLET PO (08:06)
[2023-05-17] MEDS: MULTIVITAMINS THERAPEUTIC TAB (*BKC) 1 TABLET PO (08:06)
[2023-05-17] MEDS: HEPARIN SODIUM 5,000 UNITS/ML VIAL 5000 UNITS SUB-Q (08:10)
[2023-05-17] MEDS: ASPIRIN 81 MG ENTERIC TABLET PO (08:10)
--- NOTE | 2023-05-17 11:00 | P.PNNP_ITS ---
Progress Note: A&P Assessment and Plan (1) ESRD (end stage renal disease): Code(s): N18.6 - End stage renal disease Status: Chronic Assessment and Plan: * continue nightly CCPD treatments * follow electrolytes, volume status, and clearance * replace K+ PRN (2) Polycystic renal disease: Code(s): Q61.3 - Polycystic kidney, unspecified Status: Acute Assessment and Plan: * known history * multiple imaging studies have confirmed this diagnosis (3) Left flank pain: Code(s): R10.9 - Unspecified abdominal pain Status: Acute Assessment and Plan: * as noted by description and associated with left shoulder pain * extensive evaluation to date: * CTA chest negative for PE * troponins/EKG not suggestive of ischemia * CTA abd/pelvis without aneurysms or thrombi in abdominal arteries or evidence of free air * PD catheter in appropriate position by KUB * PD fluid analysis suggest peritonitis (blood and WBCs with + gram stain although exam not consistent) * suspect etiology perhaps air in PD tubing (but that would not explain PD fluid findings) versus possible infected/hemmorhagic cyst rupture -- favor the latter * on IV antibiotics -- transitioned to oral antibiotics * continue pain control (4) Shoulder pain: Code(s): M25.519 - Pain in unspecified shoulder Status: Acute Assessment and Plan: * see #3 (5) Hypertension: Code(s): I10 - Essential (primary) hypertension Status: Acute Assessment and Plan: * reasonable control * follow trend of hemodynamics (6) CHF (congestive heart failure): Qualifiers: Heart failure chronicity: chronic Heart failure type: unspecified Qualified Code(s): I50.9 - Heart failure, unspecified Code(s): I50.9 - Heart failure, unspecified Status: Chronic Assessment and Plan: * appears compensated * follow volume status (7) Erythropoietin deficiency anemia: Code(s): D63.1 - Anemia in chronic kidney disease Status: Acute Assessment and Plan: * H/H at goal for ESRD * no need for Epogen at this time * follow trend Would not be opposed to discharge today from renal perspective if otherwise medically stable -- would discharge on some oral pain medications and SS bactrim (1 tab bid) x 1 week. Will continue to follow. Subjective Date/time seen: 05/17/23 11:00 Interval history: Follow-up for end stage renal disease on peritoneal dialysis. Tolerated peritoneal dialysis treatment overnight without any issues or problems; pain control can fluctuate but overall seems better and more tolerable as well; anxious for discharge today; no other acute issues/events overnight or earlier this morning. Exam Narrative: General: WD/WN female in NAD Heart: normal S1 and S2; no rub Lungs: clear to auscultation Abdomen: soft, nondistended, positive bowel sounds Extremities: no cyanosis or clubbing; no edema Skin: warm and dry Objective Data Vital Signs Vital Signs: Vital Signs Temp Pulse Resp BP Pulse Ox O2 Del Method 05/17/23 08:10 Room Air 05/17/23 06:41 97.3 F L 66 16 94/46 L 96 05/16/23 21:57 93 Room Air 05/16/23 21:10 97.1 F L 78 16 101/48 L 93 05/16/23 19:00 96.9 F L 70 16 96/57 L 0
--- NOTE | 2023-05-17 11:00 | PM.PNNEP ---
Progress Note: A&P Assessment and Plan (1) ESRD (end stage renal disease): Code(s): N18.6 - End stage renal disease Status: Chronic Assessment and Plan: continue nightly CCPD treatments follow electrolytes, volume status, and clearance replace K+ PRN (2) Polycystic renal disease: Code(s): Q61.3 - Polycystic kidney, unspecified Status: Acute Assessment and Plan: known history multiple imaging studies have confirmed this diagnosis (3) Left flank pain: Code(s): R10.9 - Unspecified abdominal pain Status: Acute Assessment and Plan: as noted by description and associated with left shoulder pain extensive evaluation to date: CTA chest negative for PE troponins/EKG not suggestive of ischemia CTA abd/pelvis without aneurysms or thrombi in abdominal arteries or evidence of free air PD catheter in appropriate position by KUB PD fluid analysis suggest peritonitis (blood and WBCs with + gram stain although exam not consistent) suspect etiology perhaps air in PD tubing (but that would not explain PD fluid findings) versus possible infected/hemmorhagic cyst rupture -- favor the latter on IV antibiotics -- transitioned to oral antibiotics continue pain control (4) Shoulder pain: Code(s): M25.519 - Pain in unspecified shoulder Status: Acute Assessment and Plan: see #3 (5) Hypertension: Code(s): I10 - Essential (primary) hypertension Status: Acute Assessment and Plan: reasonable control follow trend of hemodynamics (6) CHF (congestive heart failure): Qualifiers: Heart failure chronicity: chronic Heart failure type: unspecified Qualified Code(s): I50.9 - Heart failure, unspecified Code(s): I50.9 - Heart failure, unspecified Status: Chronic Assessment and Plan: appears compensated follow volume status (7) Erythropoietin deficiency anemia: Code(s): D63.1 - Anemia in chronic kidney disease Status: Acute Assessment and Plan: H/H at goal for ESRD no need for Epogen at this time follow trend Would not be opposed to discharge today from renal perspective if otherwise medically stable -- would discharge on some oral pain medications and SS bactrim (1 tab bid) x 1 week. Will continue to follow. Subjective Date/time seen: 05/17/23 11:00 Interval history: Follow-up for end stage renal disease on peritoneal dialysis. Tolerated peritoneal dialysis treatment overnight without any issues or problems; pain control can fluctuate but overall seems better and more tolerable as well; anxious for discharge today; no other acute issues/events overnight or earlier this morning. Exam Narrative: General: WD/WN female in NAD Heart: normal S1 and S2; no rub Lungs: clear to auscultation Abdomen: soft, nondistended, positive bowel sounds Extremities: no cyanosis or clubbing; no edema Skin: warm and dry Objective Data Vital Signs Vital Signs: Vital Signs Temp Pulse Resp BP Pulse Ox O2 Del Method 05/17/23 08:10 Room Air 05/17/23 06:41 97.3 F L 66 16 94/46 L 96 05/16/23 21:57 93 Room Air 05/16/23 21:10 97.1 F L 78 16 101/48 L 93 05/16/23 19:00 96.9 F L 70 16 96/57 L 05/16/23 13:37 96.9 F L 70 16 96/57 L 98 Intake/Output Intake/Output: Intake & Output 05/14/23 05/15/23 05/16/23 05/17/23 23:59 23:59 23:59 23:59 Intake Total 1292 1704 1340 952 Output Total 350 1012 497 568 Balance 942 692 843 384 Meds/Results Medications: Active Medications Generic Name Dose Route Start Last Admin Trade Name Freq PRN Reason Stop Dose Admin Acetaminophen 650 mg 05/10/23 18:04 Acetaminophen 325 Mg Tablet PO Q4H PRN Mild Pain (1-3) or Fever Hydrocodone Bitart/Acetaminophen 1 tab 05/10/23 18:04 05/17/23 08:05 Hydrocodone/Acetaminophen (*Crx) 5-325 Mg Tablet PO 1 tab
--- NOTE | 2023-05-17 11:18 | PM.DS ---
DS: Admitting Diagnosis Discharge Date 05/17/2023 Admitting Diagnosis Chest pain DS: Discharge Diagnosis Discharge Diagnosis (1) Chest pain: Qualifiers: Chest pain type: chest pain on breathing Qualified Code(s): R07.1 - Chest pain on breathing Code(s): R07.9 - Chest pain, unspecified Status: Acute (2) End-stage renal disease (ESRD): Code(s): N18.6 - End stage renal disease Status: Acute (3) Hypokalemia: Code(s): E87.6 - Hypokalemia Status: Acute (4) Left shoulder pain: Qualifiers: Chronicity: acute Qualified Code(s): M25.512 - Pain in left shoulder Code(s): M25.512 - Pain in left shoulder Status: Acute Plan The patient is having left shoulder and pleuritic left chest pain. Symptoms could be due to infection that is not quite showing up on x-ray. She could also have pleurisy with associated recent coughing rhinorrhea and other related symptoms. Pleurisy could also be due to possible underlying pulmonary embolism. The patient reports that she has been admitted multiple times in the past for pulmonary embolism rule out. She states her CTs always demonstrate an area that could be concerning for pulmonary embolism but the findings are weight is chronic and unchanged. 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 Will give the patient a dose of IV Solu-Medrol and nebulizer treatment to see if this does not help her symptoms. The any steroids of nothing also help reduce some inflammation. If the symptoms may persist and may try a muscle relaxer. The patient is not a candidate for NSAIDs given her polycystic kidney disease and need for dialysis. Pain medications have been provided Nephrology has been consulted for management of peritoneal dialysis. Patient does have some mild hypokalemia. Initially I had ordered a oral potassium supplement but on review of patient's chart had discontinued supplement immediately. Patient does have coronary disease but troponins have been flat. Will complete troponin profile and cardiology has been consulted from the ER. Patient will be monitored in IMU. Will continue the patient's home Plavix and aspirin. 05/16/2023 interval history: patient stated that she may have air in her? PD tubing that may be causing her left sided flank and shoulder pain, however CT scan of abdomen did not show any air, discuss with Dr. Escalante suspect patient have rupture? 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 05/15 patient c/o left arm swelling and pain, concerning of DVT, dopplor was negative for clots, patient is seen by photovoltaic installation technician does not suspect CAD,? and front end wheel loader operator and further recommendation to follow. 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 The patient reports that she had when out to her car during her lunch break.? 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 She reports that she always have left flank pain due to her polycystic kidneys.? However this pain is different.? Pain is reproducible to palpation.? The pain radiates down the left outer
== END 2023-05-17 12:15 | disposition home or self-care (01) | DRG 699 ==
LOC: ANHED 15:00 → ANHIMU 20:15 → ANH3MEDSUR 05-14 12:34
PROVIDERS: Internal Medicine Cardiovascular Disease; Internal Medicine Nephrology; Admitting Provider Family Medicine; Emergency Provider Emergency Medicine; PCP Internal Medicine; Visit Provider Family Medicine
DX: Q61.3 Polycystic kidney, unspecified (principal); I13.2 Hypertensive heart and chronic kidney disease with heart failure and with stage 5 chronic kidney disease, or end stage renal disease; R07.1 Chest pain on breathing; N18.6 End stage renal disease; D63.1 Anemia in chronic kidney disease; E87.6 Hypokalemia; E83.51 Hypocalcemia; E03.9 Hypothyroidism, unspecified; I25.5 Ischemic cardiomyopathy; I50.9 Heart failure, unspecified; I49.5 Sick sinus syndrome; I35.0 Nonrheumatic aortic (valve) stenosis; I25.10 Atherosclerotic heart disease of native coronary artery without angina pectoris; I25.2 Old myocardial infarction; I27.20 Pulmonary hypertension, unspecified; J44.9 Chronic obstructive pulmonary disease, unspecified; M25.512 Pain in left shoulder; N25.0 Renal osteodystrophy; Z99.2 Dependence on renal dialysis; Z90.710 Acquired absence of both cervix and uterus; Z79.82 Long term (current) use of aspirin; Z79.02 Long term (current) use of antithrombotics/antiplatelets; Z88.0 Allergy status to penicillin; Z95.1 Presence of aortocoronary bypass graft; Z95.2 Presence of prosthetic heart valve; Z95.5 Presence of coronary angioplasty implant and graft; Z95.0 Presence of cardiac pacemaker; Z90.89 Acquired absence of other organs; Z85.831 Personal history of malignant neoplasm of soft tissue; Z87.891 Personal history of nicotine dependence; Z85.71 Personal history of Hodgkin lymphoma; Z92.3 Personal history of irradiation
CPT/HCPCS: 36415; 71046; 71275; 74019; 74160; 80053; 80069; 80202; 81001; 83690; 83735; 84484; 85025; 85027; 85610; 85730; 87040; 87070; 87075; 87077; 87086; 87088; 87186; 87205; 89051; 90945; 93005; 93970; 94640; 96365; 96366; 96367; 96372; 96374; 96375; 96376; 99285; A9270; G0378; J0457; J1644; J1650; J2405; J2930; J3010; J3370; Q9967

== ENCOUNTER 2023-05-30 07:09 | Outpatient (CLI) | payer OTHER, MEDICAID, SELFPAY ==
--- NOTE | ~2023-05-30 | MM_ITS ---
EXAMINATION: MM scrn slick implant BI w jessica HISTORY: Screening mammogram TECHNIQUE: Craniocaudal and mediolateral oblique 3-D tomosynthesis images with implant displacement a nd synthetic 2-D images were generated. Craniocaudal and mediolateral oblique views of the breasts wi thout implant displacement were obtained using full field digital mammography. CAD analysis was submi tted and interpreted. COMPARISON: 04/01/2021, 06/21/2016, 05/14/2014, 05/07/2014 BREAST PARENCHYMAL COMPOSITION: The breasts are heterogeneously dense, which may obscure small masses . FINDINGS: There is no evidence of suspicious mass, calcification, or architectural distortion to sugg est malignancy in either breast. There has been no suspicious interval change. IMPRESSION: 1. No mammographic evidence of malignancy. 2. Recommend routine screening mammography in one year. BI-RADS Category 1: Negative Reviewed, dictated and finalized at location A.
== END 2023-05-30 07:10 | disposition home or self-care (01) ==
PROVIDERS: PCP Internal Medicine; Visit Provider Obstetrics & Gynecology
DX: Z12.31 Encounter for screening mammogram for malignant neoplasm of breast (principal); Z98.82 Breast implant status
CPT/HCPCS: 77063; 77067

== ENCOUNTER 2023-12-17 14:48 | Outpatient (CLI) | payer OTHER, MEDICARE, SELFPAY ==
--- NOTE | ~2023-12-17 | CT_ITS ---
Non-contrast CT scan of the Abdomen and Pelvis Clinical indication: Flank pain Technique: 2.5 mm axial scans were obtained through the abdomen and pelvis without intravenous or or al contrast. Dose reduction technique was used on this scan by utilizing automated exposure control a nd iterative reconstruction technique. The dose-length product (DLP) was 189.53 mGy-cm. COMPARISON: 07/20/2022 Findings: Images through the lung bases reveal small bilateral pleural effusions, left larger than r ight. There is polycystic liver disease. Both kidneys are enlarged and essentially completely replaced by a nd presumed cystic lesions, of varying densities. There are small bilateral nonobstructing renal ston es. No definite hydronephrosis. The spleen, pancreas, gallbladder, and adrenals appear normal. There are atherosclerotic calcifications of the aorta. There is no evidence of bowel obstruction. Images through the pelvis were performed. There is no evidence of ascites or lymphadenopathy. Urinary bladder unremarkable. No pelvic mass seen. Peritoneal dialysis catheter present. Impression: Autosomal dominant polycystic kidney disease, with small bilateral nonobstructing stones. No definite hydronephrosis. Associated polycystic liver disease. Reviewed, dictated and finalized at location . IMPLEMENTATION CONSULTANT Impression: Autosomal dominant polycystic kidney disease, with small bilateral nonobstructi ng stones. No definite hydronephrosis. Associated polycystic liver disease.
== END 2023-12-17 14:49 | disposition home or self-care (01) ==
PROVIDERS: PCP Internal Medicine; Visit Provider Urology
DX: Q61.2 Polycystic kidney, adult type (principal)
CPT/HCPCS: 74176

== ENCOUNTER 2024-01-29 10:48 | Emergency (ER) | payer OTHER, MEDICARE, SELFPAY ==
[2024-01-29 10:51] VITALS: BP 104/72; PULSE 80; RESP 19; TEMP 36.3; O2SAT 100
[2024-01-29 11:45] VITALS: BP 100/87; PULSE 71; RESP 16; O2SAT 100
[2024-01-29] MEDS: BELLADONNA ALK/PHENOB ELIX 10 ML, MAG HYDROX/ALUMINUM HYD/SIMETH 30 ML, LIDOCAINE HCL 2... PO (12:01)
[2024-01-29 12:15] VITALS: BP 103/69; PULSE 74; RESP 18; O2SAT 100
[2024-01-29 12:28] LABS: Basophils Percent Auto 0.3 % (0.2-1.2); Eosinophils Absolute Auto 0.1 K/mm3 (0-0.3); Eosinophils Percent Auto 1.2 % (0-4.4); Hematocrit 39.1 % (37.0-47.0); Hemoglobin 12.5 g/dL (12.0-15.0); Immature Granulocyte Absolute 0.01 K/mm3 (0.00-0.031); Immature Granulocyte Percent A 0.2 % (0-0.5); Lymphocytes Absolute Auto 0.69 K/mm3 (0.9-3.2); Lymphocytes Percent Auto 11.6 % (18.3-44.2); Mean Corpuscular Hemoglobin 28.8 pg (26-34); Mean Corpuscular Volume 90.1 fl (80-100); Mean Platelet Volume 11.3 fl (7.4-10.4); Monocytes Absolute Auto 0.4 K/mm3 (0.1-0.6); Monocytes Percent Auto 7.3 % (2.6-8.5); Neutrophils Absolute Auto 4.7 K/mm3 (1.3-6.7); Neutrophils Percent Auto 79.4 % (45.5-73.1); Platelet Count Result 127 k/mm3 (150-375); Red Blood Count 4.34 M/mm3 (4.2-5.4); Red Cell Distribution Width 15.2 % (11.5-14.5); White Blood Count 5.9 K/mm3 (4.5-10.0)
--- NOTE | 2024-01-29 12:34 | ED.GENADULT ---
HPI - General Adult General Chief complaint: Unspecified Stated complaint: difficulty swallowing, h/a, nausea Time Seen by Provider: 01/29/24 11:04 History of Present Illness HPI narrative: Patient is a 53-year-old female with history of valve replacement and peritoneal dialysis requirement that presents ER with sore throat difficulty swallowing. Ongoing for 2 days since going to the dentist. Unable to swallow applesauce today because it hurts her throat so she came in for further evaluation. She has had some achiness in her upper abdomen. No fevers or chills or sweats. Unsure if she is having issues with acid reflux. Reports she has not had anything to eat for 2 days. She did not give herself dialysis/night through Related Data Home Medications Medication Instructions Recorded Confirmed aspirin 81 mg tablet,delayed 81 mg PO DAILY 08/27/19 09/02/23 release calcium acetate(phosphat bind) 667 667 mg PO TIDWM 08/01/22 09/02/23 mg capsule clopidogrel 75 mg tablet (Plavix) 75 mg PO DAILY 08/01/22 09/02/23 gentamicin 0.1 % topical cream 1 applic topical DAILY 08/01/22 09/02/23 loratadine 10 mg tablet (Claritin) 10 mg PO DAILY PRN Allergy Symptoms 08/01/22 09/02/23 multivitamin 1 tablet PO DAILY 08/01/22 09/02/23 nitroglycerin 0.4 mg sublingual 0.4 mg sublingual Q5M PRN Pain 08/01/22 09/02/23 tablet levofloxacin 500 mg tablet 500 mg PO .COMPLEX 09/02/23 09/02/23 Allergies Allergy/AdvReac Type Severity Reaction Status Date / Time amoxicillin Allergy Severe Difficulty Verified 01/29/24 11:04 Breathing egg Allergy Severe STOPPED Verified 01/29/24 11:04 BREATHING Penicillins Allergy Severe Stopped Verified 01/29/24 11:04 Breathing ciprofloxacin Allergy Intermediate Fever Verified 01/29/24 11:04 bass Allergy Unknown Swelling Verified 01/29/24 11:04 Macrolide Antibiotics Allergy Unknown NO IDEA Verified 01/29/24 11:04 tree nut Allergy Unknown Vomiting Verified 01/29/24 11:04 clindamycin AdvReac Nausea and Verified 01/29/24 11:05 Vomiting Review of Systems Review of Systems: All systems reviewed & are unremarkable except as noted in HPI and below Constitutional: Constitutional: Reports no additional constitutional complaints ENT: Denies nasal congestion and Reports other (sore thora) Cardiovascular: Cardiovascular: Reports no additional cardiovascular complaints Respiratory: Respiratory: Reports no additional respiratory complaints Gastrointestinal: Gastrointestinal: Reports no additional gastrointestinal complaints PENDING SALE TO [facility] Past Medical History Medical History Aortic stenosis Bicuspid aortic valve. Status post aortic valve replacement on 02/11/2019 that resulted in perivalvular regurgitation. 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 She underwent left thoracotomy, chemotherapy and radiation. 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 Polycystic renal disease Pulmonary hypertension Raynaud phenomenon Restrictive lung disease Surgical History Surgical History H/O single vessel coronary artery bypass Saphenous vein graft to LAD with PCI stent to the graft February 2022 with InStent restenoses 07/21/2022 with PCI and laser arthre
[2024-01-29 12:38] LABS: Alanine Aminotransferase 13 U/L (6-35); Albumin Level 3.3 g/dL (3.5-5.1); Alkaline Phosphatase 58 U/L (38-126); Anion Gap 10 mmol/L (4-12); Aspartate Amino Transferase 22 U/L (14-36); Bilirubin,Total 0.5 mg/dL (0.2-1.3); Blood Urea Nitrogen 67 mg/dL (7-17); Carbon Dioxide 23 mmol/L (22-30); Chloride 101 mmol/L (98-107); Estimated CRCL calculation 5 ml/min; Estimated Glomerular Filt Rate 4; Glucose 82 mg/dL (65-110); Lipase 60 U/L (23-300); Potassium 3.8 mmol/L (3.4-5.0); Sodium 134 mmol/L (137-145)
[2024-01-29 12:39] LABS: INR 1.2; Partial Thromboplastin Time 29.8 Seconds (22.3-36.8); Prothrombin Time 15.3 Seconds (11.1-14.7)
[2024-01-29 13:30] VITALS: BP 94/68; PULSE 73; RESP 20; O2SAT 97
== END 2024-01-29 14:05 | disposition home or self-care (01) ==
PROVIDERS: Emergency Provider Emergency Medicine; PCP Internal Medicine
DX: K20.90 Esophagitis, unspecified without bleeding (principal); I35.0 Nonrheumatic aortic (valve) stenosis; I70.8 Atherosclerosis of other arteries; I50.9 Heart failure, unspecified; I25.10 Atherosclerotic heart disease of native coronary artery without angina pectoris; I25.5 Ischemic cardiomyopathy; I25.2 Old myocardial infarction; I27.20 Pulmonary hypertension, unspecified; I73.00 Raynaud's syndrome without gangrene; I49.5 Sick sinus syndrome; N18.6 End stage renal disease; Z99.2 Dependence on renal dialysis; J44.9 Chronic obstructive pulmonary disease, unspecified; E89.0 Postprocedural hypothyroidism; Q61.3 Polycystic kidney, unspecified; Z95.1 Presence of aortocoronary bypass graft; Z95.2 Presence of prosthetic heart valve; Z95.5 Presence of coronary angioplasty implant and graft; Z95.0 Presence of cardiac pacemaker; Z86.16 Personal history of COVID-19; Z87.891 Personal history of nicotine dependence; Z90.710 Acquired absence of both cervix and uterus; Z79.02 Long term (current) use of antithrombotics/antiplatelets; Z79.82 Long term (current) use of aspirin
CPT/HCPCS: 36415; 80053; 83690; 85025; 85610; 85730; 99283; A9270

== ENCOUNTER 2024-08-28 01:48 | Day surgery (SDC) | payer MEDICARE, OTHER, SELFPAY ==
--- NOTE | 2024-08-18 12:50 | PC.NURSE ---
Pt was to see Dr. Patel for colonoscopy. Clearance received from Dr. Lott for Plavix. Pt rescheduled colonoscopy and will now see Dr. Anderson. I spoke with Dr. Lott's nurse regarding need for new clearance for Plavix blood thinner since Dr. Patel wants pts to hold Plavix for [address] Anderson wishes for pts to hold for 4 days. Nurse will call us back with clearance.
[2024-08-18 14:25] VITALS: BMI 18.9
--- NOTE | 2024-08-18 15:14 | PC.NURSE ---
PAT call completed with pt. Pt to stop Plavix 4 days prior to procedure with last dose being 08/23/2024. Pt stated understanding Pt voiced concerns regarding prep and her peritoneal dialysis. Instructions given to pt to not take magnesium citrate, but to only take laxative pills and miralax mixed with a clear liquid. Pt to see nephrology next week and will discuss dialysis post prep at that time. Pt has hx of PM and recent aortic valve replacement this past May. CRMD form faxed to Dr. Lane Ramos. Spoke with Christine at Dr. Lott's office requesting last office visit note and recent testing. Per last office visit note from Dr. Downey in May, pt c/o increased SOB post aortic valve replacement. Pt stated SOB has improved since that visit. She did see her meeting facilitator soon after and no further testing was ordered.
[2024-08-28 12:16] VITALS: BP 110/87; PULSE 85; RESP 14; TEMP 36.1; O2SAT 100
[2024-08-28] MEDS: VANCOMYCIN 750 MG/NS 250 ML BAG 250 MG IVPB (12:37)
--- NOTE | 2024-08-28 12:40 | WPDANESEPPF ---
Anes - Initial Pre Proc Eval Procedure: Operation Date: 08/28/24 13:30 Proposed Procedures p Colonoscopy - Abraham Ellison MD Date/Time: 08/28/24 12:40 Surgeon: Abraham Ellison MD Pre Op Diagnosis: hx of colon polyps Patient Data Age: 53 Gender: F Height: 1.63 m Weight: 54.7 kg Last Vital Signs Temp 36.1 C L 08/28/24 12:16 Pulse 85 08/28/24 12:16 Resp 14 08/28/24 12:16 BP 110/87 08/28/24 12:16 O2 Del Method Room Air 08/28/24 12:16 Allergies Allergy/AdvReac Type Severity Reaction Status Date / Time amoxicillin Allergy Severe Difficulty Verified 08/28/24 12:14 Breathing egg Allergy Severe STOPPED Verified 08/28/24 12:14 BREATHING Penicillins Allergy Severe Stopped Verified 08/28/24 12:14 Breathing ciprofloxacin Allergy Intermediate Fever Verified 08/28/24 12:14 bass Allergy Unknown Swelling Verified 08/28/24 12:14 Macrolide Antibiotics Allergy Unknown NO IDEA Verified 08/28/24 12:14 tree nut Allergy Unknown Vomiting Verified 08/28/24 12:14 clindamycin AdvReac Nausea and Verified 08/28/24 12:14 Vomiting Home Medications Medication Instructions Recorded Confirmed Type aspirin 81 mg tablet,delayed 81 mg PO DAILY 08/27/19 08/28/24 History release clopidogrel 75 mg tablet (Plavix) 75 mg PO DAILY 08/01/22 08/28/24 History gentamicin 0.1 % topical cream 1 applic topical DAILY 08/01/22 08/28/24 History loratadine 10 mg tablet (Claritin) 10 mg PO DAILY PRN Allergy Symptoms 08/01/22 08/28/24 History multivitamin 1 tablet PO DAILY 08/01/22 08/28/24 History nitroglycerin 0.4 mg sublingual 0.4 mg sublingual Q5M PRN Pain 08/01/22 08/28/24 History tablet calcitriol 0.5 mcg capsule 0.5 mcg PO WEEKLY #90 caps 08/19/23 08/28/24 Rx (Rocaltrol) albuterol sulfate 90 mcg/actuation 2 puff inhalation Q4-6H PRN 12/17/23 08/28/24 Rx aerosol inhaler (ProAir HFA) shortness of breath or wheezing #18 grams levothyroxine 137 mcg tablet 137 mcg PO DAILY #30 tabs 03/05/24 08/28/24 Rx tenapanor 30 mg tablet (Xphozah) 30 mg PO .QD 06/18/24 08/28/24 History ergocalciferol (vitamin D2) 25,000 See Rx Instructions .Route .COMPLEX 08/18/24 08/28/24 History unit capsule gabapentin 100 mg capsule 100 mg PO WEEKLY 08/18/24 08/28/24 History Patient hx anesthesia problems: none Family hx anesthesia problems: none Results Review: All pre-operative results and documents have been reviewed as part of the pre-operative evaluation. FOR[facility]LY [facility] Past Medical History Medical History Aortic stenosis Bicuspid aortic valve. Status post aortic valve replacement on 02/11/2019 that resulted in perivalvular regurgitation. 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 She underwent left thoracotomy, chemotherapy and radiation. 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 Polycystic renal disease Pulmonary hypertension Raynaud phenomenon Restrictive lung disease Surgical History Surgical History H/O single vessel coronary artery bypass Saphenous vein graft to LAD with PCI stent to the graft February 2022 with InStent restenoses 07/21/2022 with PCI and laser arthrectomy in placement id DESI x1 with EF postprocedure 50% and moderate aortic regurg History of aortic valve replacement History of section History of hysterectomy History of thyroidectomy Hx of heart artery stent Pacemaker Patient developed bradycardia with sick sinus syndrome requiring pacemaker on 05/15/2019. S/P colonoscopic polypectomy 2020 Family History Family History Father Hypertension Family history of coronary artery disease, Onset Age: 57 Mother Hypertension Cerebrovascular accident Family history of malignant neoplasm Family history of kidney disease Grandparent Family history of kidney disease Social History Social History (Updated 06/18/24 @ 07:32 by Denita Watson) Social History: Surrogate medical decision maker: She states that both her children her surrogate decision maker. Code status: Full code. Caffeine-coffee Smoking packs per day: 1 Smoking cigarettes per day: 20.0 Years smoked: 25 Smoking pack-years: 25.00 Smoking status: Former smoker Tobacco type: cigarettes and e-cigarettes/vaping Second hand tobacco smoke exposure: Yes Smoking end date: 04/01/12 Additional smoking assessment comments: quit vaping 05/2024 Alcohol intake: never Substance use: current Substance use type: marijuana Other substance usage details: Years ago Do You Feel Safe in your Home?: Yes Lack of Transportation: No Lack of Food: Never True Current Housing: I Have Housing Concerned About Future Housing: No Difficulty Paying Gas/Electric Bills: No Difficulty Paying for Meds: No Currently Unemployed: No Education: Trade/Vocational Certificate Difficulty w/ Childcare or Family Care: No Living arrangements: with family Additional living arrangements comments: She lives alone. 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 Spiritual care concerns: No Agree to blood products: Yes Anes - Eval Final PreProcedure Day of Procedure 08/28/24 12:40 Patient weight: normal Heart: regular rate and rhythm Lungs: clear to auscultation and normal air movement Airway: Mallampati scale class III Neurological: alert and oriented Last oral intake: >/= 8 hours ASA classification: IV Emergent: no Anesthetic plan: proceed Anesthesia type and monitoring: general GIVS and standard monitoring Results Review: All pre-operative results and documents have been reviewed as part of the pre-operative evaluation. Informed Consent: The patient's anesthetic plan and its attendant risks and benefits were discussed with the patient/family/POA. Questions were solicited and answers provided to the satisfaction of the patient/family/POA.
[2024-08-28] MEDS: SODIUM CHLORIDE 0.9% IV 500 ML 10 ML IV CONT (12:41)
--- NOTE | 2024-08-28 12:55 | PM.HPGS ---
History of Present Illness History of Present Illness Consent: Risks, benefits, and alternatives have been discussed and questions answered. Patient agrees to proceed with procedure. Chief complaint: hx of colon polyps Narrative: Ginger Marshall is a 53 year old female with colon polyp in 2020 Review of Systems Review of Systems: All systems reviewed & are unremarkable except as noted in HPI and below PMFSH Past Medical History Medical History (Updated 08/28/24 @ 12:58 by Abraham Ellison MD) Adenomatous colon polyp Aortic stenosis Bicuspid aortic valve. Status post aortic valve replacement on 02/11/2019 that resulted in perivalvular regurgitation. 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 She underwent left thoracotomy, chemotherapy and radiation. 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 Polycystic renal disease Pulmonary hypertension Raynaud phenomenon Restrictive lung disease Surgical History Surgical History (Updated 06/18/24 @ 07:32 by Denita Watson) H/O single vessel coronary artery bypass Saphenous vein graft to LAD with PCI stent to the graft February 2022 with InStent restenoses 07/21/2022 with PCI and laser arthrectomy in placement id DESI x1 with EF postprocedure 50% and moderate aortic regurg History of aortic valve replacement History of section History of hysterectomy History of thyroidectomy Hx of heart artery stent Pacemaker Patient developed bradycardia with sick sinus syndrome requiring pacemaker on 05/15/2019. S/P colonoscopic polypectomy 2020 Family History Family History Father Hypertension Family history of coronary artery disease, Onset Age: 57 Mother Hypertension Cerebrovascular accident Family history of malignant neoplasm Family history of kidney disease Grandparent Family history of kidney disease Social History Social History (Updated 06/18/24 @ 07:32 by Denita Watson) Social History: Surrogate medical decision maker: She states that both her children her surrogate decision maker. Code status: Full code. Caffeine-coffee Smoking packs per day: 1 Smoking cigarettes per day: 20.0 Years smoked: 25 Smoking pack-years: 25.00 Smoking status: Former smoker Tobacco type: cigarettes and e-cigarettes/vaping Second hand tobacco smoke exposure: Yes Smoking end date: 04/01/12 Additional smoking assessment comments: quit vaping 05/2024 Alcohol intake: never Substance use: current Substance use type: marijuana Other substance usage details: Years ago Do You Feel Safe in your Home?: Yes Lack of Transportation: No Lack of Food: Never True Current Housing: I Have Housing Concerned About Future Housing: No Difficulty Paying Gas/Electric Bills: No Difficulty Paying for Meds: No Currently Unemployed: No Education: Trade/Vocational Certificate Difficulty w/ Childcare or Family Care: No Living arrangements: with family Additional living arrangements comments: She lives alone. 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 Spiritual care concerns: No Agree to blood products: Yes Meds Home Medications and Allergies Home Medications Medication Instructions Recorded Confirmed Type aspirin 81 mg tablet,delayed 81 mg PO DAILY 08/27/19 08/28/24 History release clopidogrel 75 mg tablet (Plavix) 75 mg PO DAILY 08/01/22 08/28/24 History gentamicin 0.1 % topical cream 1 applic topical DAILY 08/01/22 08/28/24 History loratadine 10 mg tablet (Claritin) 10 mg PO DAILY PRN Allergy Symptoms 08/01/22 08/28/24 History multivitamin 1 tablet PO DAILY 08/01/22 08/28/24 History nitroglycerin 0.4 mg sublingual 0.4 mg sublingual Q5M PRN Pain 08/01/22 08/28/24 History tablet calcitriol 0.5 mcg capsule 0.5 mcg PO WEEKLY #90 caps 08/19/23 08/28/24 Rx (Rocaltrol) albuterol sulfate 90 mcg/actuation 2 puff inhalation Q4-6H PRN 12/17/23 08/28/24 Rx aerosol inhaler (ProAir HFA) shortness of breath or wheezing #18 grams levothyroxine 137 mcg tablet 137 mcg PO DAILY #30 tabs 03/05/24 08/28/24 Rx tenapanor 30 mg tablet (Xphozah) 30 mg PO .QD 06/18/24 08/28/24 History ergocalciferol (vitamin D2) 25,000 See Rx Instructions .Route .COMPLEX 08/18/24 08/28/24 History unit capsule gabapentin 100 mg capsule 100 mg PO WEEKLY 08/18/24 08/28/24 History Allergies Allergy/AdvReac Type Severity Reaction Status Date / Time amoxicillin Allergy Severe Difficulty Verified 08/28/24 12:14 Breathing egg Allergy Severe STOPPED Verified 08/28/24 12:14 BREATHING Penicillins Allergy Severe Stopped Verified 08/28/24 12:14 Breathing ciprofloxacin Allergy Intermediate Fever Verified 08/28/24 12:14 bass Allergy Unknown Swelling Verified 08/28/24 12:14 Macrolide Antibiotics Allergy Unknown NO IDEA Verified 08/28/24 12:14 tree nut Allergy Unknown Vomiting Verified 08/28/24 12:14 clindamycin AdvReac Nausea and Verified 08/28/24 12:14 Vomiting Vital Signs Vital Signs - 24 hr 08/28/24 12:16 Temperature 97 F L Pulse Rate 85 Respiratory Rate 14 Blood Pressure 110/87 Pulse Oximetry 100 Oxygen Delivery Room Air Exam Const: General: comfortable and no acute distress HENMT: Face/Nose/Sinus: Normal nares present Eyes: General: appearance normal, both eyes and all related structures Neck: Neck: no JVD Resp: Auscultation: clear to auscultation bilaterally Cardio: Rate: regular rate Rhythm: regular rhythm GI: Inspection: non-distended GI Palp: Yes Soft to palpation Skin: General skin exam: normal color Neuro: General: gait normal Speech: normal speech Extrem: General: normal to inspection Psych: Mental Status: mental status grossly normal Assessment and Plan Assessment and plan (1) Adenomatous colon polyp: Code(s): D12.6 - Benign neoplasm of colon, unspecified Status: Acute Assessment and Plan: colonoscopy
[2024-08-28 13:19] VITALS: BP 87/64; PULSE 75; RESP 14; O2SAT 90
[2024-08-28 13:29] VITALS: BP 89/68; PULSE 68; RESP 20; O2SAT 100
[2024-08-28 13:39] VITALS: BP 99/65; PULSE 70; RESP 22; O2SAT 100
[2024-08-28 13:49] VITALS: BP 98/65; PULSE 65; RESP 22; O2SAT 100
== END 2024-08-28 14:22 | disposition home or self-care (01) ==
PROVIDERS: PCP Internal Medicine; Referring Provider Internal Medicine Gastroenterology; Visit Provider Internal Medicine Gastroenterology
PROC: 0DJD8ZZ Inspection of Lower Intestinal Tract, Via Natural or Artificial Opening Endoscopic (ICD-10-PCS; CPT 45378; principal; 2024-08-28 13:30)
DX: Z12.11 Encounter for screening for malignant neoplasm of colon (principal); D12.4 Benign neoplasm of descending colon; K64.8 Other hemorrhoids; J45.909 Unspecified asthma, uncomplicated; E83.51 Hypocalcemia; E03.9 Hypothyroidism, unspecified; I25.10 Atherosclerotic heart disease of native coronary artery without angina pectoris; I35.0 Nonrheumatic aortic (valve) stenosis; Q23.81 Bicuspid aortic valve; I65.23 Occlusion and stenosis of bilateral carotid arteries; I13.2 Hypertensive heart and chronic kidney disease with heart failure and with stage 5 chronic kidney disease, or end stage renal disease; N18.6 End stage renal disease; I50.9 Heart failure, unspecified; I25.5 Ischemic cardiomyopathy; Q61.3 Polycystic kidney, unspecified; I27.20 Pulmonary hypertension, unspecified; I73.00 Raynaud's syndrome without gangrene; J98.4 Other disorders of lung; F12.90 Cannabis use, unspecified, uncomplicated; Z79.82 Long term (current) use of aspirin; Z79.02 Long term (current) use of antithrombotics/antiplatelets; Z79.51 Long term (current) use of inhaled steroids; Z98.890 Other specified postprocedural states; Z95.5 Presence of coronary angioplasty implant and graft; Z95.0 Presence of cardiac pacemaker; Z99.2 Dependence on renal dialysis; Z87.891 Personal history of nicotine dependence; Z86.0100 Personal history of colon polyps, unspecified; Z86.79 Personal history of other diseases of the circulatory system; Z80.9 Family history of malignant neoplasm, unspecified; Z82.49 Family history of ischemic heart disease and other diseases of the circulatory system
CPT/HCPCS: 45385; 88305; J2704; J3370; J7040

== ENCOUNTER 2024-11-26 21:05 | Emergency (ER) | payer MEDICARE, OTHER, SELFPAY ==
[2024-11-26 21:08] VITALS: BP 91/63; PULSE 88; RESP 14; TEMP 36.4; O2SAT 95
--- OUTSIDE RECORDS SUMMARY | 2024-11-26 21:08 | XMS_ITS | Referral Summary ---
Author Organization [facility] Address [address] [place] [address] Care Team Providers Care Sports Recruiter Name Role Phone Danielle Hawkins Primary Care Provider Unavailabl e Source Comments [facility],non-owned Affiliates and Associated Physician Practices is amultiple site organization consisting of ambulatory clinics and hospital sitesin [place], [place], [place] and [place]. This disclosure is being madepursuant to the Care Everywhere program and may not contain all information available regarding this patient. Last updated 18.[facility] Allergies Active Allergy Reactions Criticality Noted Date Comments Ampicillin Anaphylaxis High 04/29/2015 Ciprofloxacin Nausea Low 04/29/2015 Penicillamine Anaphylaxis High 04/29/2015 Medications * Be aware that medications may not be up to date on this document. Alwaysverify current medications with the patient. Medication Sig Dispensed Refills Start Date End Date Status raNITIdine (ZANTAC) 150 MG tablet Take by mouth. 09/06/2016 Active lovastatin (MEVACOR) 20 MG tablet 5 05/02/2016 Active Active Problems Problem Noted Date Diagnosed Date Paralysis of vocal cords and larynx, unspecified 12/14/2015 Nontoxic multinodular goiter 08/11/2015 Social History Tobacco Use Types Packs/Day Years Used Date Smoking Tobacco: Former Cigarettes Q uit: 03/21/2012 Smokeless Tobacco: Never Alcohol Use Standard Drinks/Week Comments No 0 (1 standard drink = 0.6 oz pur e alcohol) Sex and Gender Information Value Date Recorded Sex Assigned at Not on file Gender Identity Not on file Sexual Orientation Not on file Last Filed Vital Signs Vital Sign Reading Time Taken Comments Blood Pressure 145/91 09/06/2016 9:59 AM CAR CHECKER Pulse 79 09/06/2016 9:59 AM CAR CHECKER Temperature 36.4 C (97.5 F) 12/23/2015 3:20 PM CAR CHECKER Respiratory Rate 12 09/06/2016 9:59 AM CAR CHECKER Oxygen Saturation 100% 12/23/2015 3:20 PM CAR CHECKER Inhaled Oxygen Concentration - - Weight 60.8 kg (134 lb) 09/06/2016 9:59 AM CAR CHECKER Height 162.6 cm (5' 4 ) 09/06/2016 9:59 AM CAR CHECKER Body Mass Index 23 09/06/2016 9:59 AM CAR CHECKER Plan of Treatment Not on file Care Teams Sports Recruiter Relationship Specialty Start Date End Date Danielle Hawkins Update Information PCP - General 04/29/15
--- OUTSIDE RECORDS SUMMARY | 2024-11-26 21:08 | XMS_ITS | Clinical Summary ---
Author Organization [facility] Address [address] [place] [address] Care Team Providers Care Communications Station Manager Name Role Phone Unavailable Primary Care Provider Unavailabl e Social History Tobacco Use Types Packs/Day Years Used Date Smoking Tobacco: Never Assessed Comments Unknown Sex and Gender Information Value Date Recorded Sex Assigned at Not on file Legal Sex Female 5:58 PM CDT Gender Identity Not on file Sexual Orientation Not on file Plan of Treatment Health Maintenance Due Date Last Done Comments Cervical Cancer Screening Pa p Smear (Age 30 to 64) Every 3 Years 1971 Colorectal Cancer Screening Colonoscopy (10 Years) 1971 Annual Physical 1974 Hepatitis C 1989 DTaP, Tdap and Td Vaccines ( 1 - Tdap) 1990 Hepatitis B Vaccines (1 of 3 - 19+ 3-dose series) 1990 Cervical Cancer Screening Pa p with HPV Testing (Age 30 to 64) Every 5 Years 2001 Cervical Cancer Screening with HPV 2001 Mammogram Screening 2011 Zoster Vaccines (1 of 2) 2021 COVID-19 Vaccine (2023-2 5 season) 2024 Influenza Adult (#1) 2024 Meningococcal B Vaccine Aged Out No l onger eligible based on patient's age to complete this topic Meningococcal Vaccine Aged Out No joi lorena eligible based on patient's age to complete this topic Pneumococcal Vaccine: Pediat rics (0 to 5 Years) and At-Risk Patients (6 to 64 Years) Aged Out No longer eligible b ased on patient's age to complete this topic RSV Immunizations Under 20 Months Aged Out No longer eligible based on patient's age to complete this topic
--- OUTSIDE RECORDS SUMMARY | 2024-11-26 21:08 | XMS_ITS | Encounter Summary ---
Author Organization [facility] Address [address] [place] [address] Phone Care Team Providers Care Racebook Writer Name Role Phone Quinton Rowan MD Unavailable Pal Downey DO Primary Care Provider [phone] Tami Flores RN Unavailable Cricket Escalante MD Unavailable Gael Sprague MD PhD Unavailable Brad Turner MD Unavailable [phone] Margarita Montoya MD Unavailable [phone] Luca Lott MD Unavailable Pb Galloway MD Unavailable [phone] Felipe Gerber MD Unavailable [phone] Encounter Details Date Type Department Care Team (Late st Contact Info) Description 09/01/2021 Orders Only [facility] Scanning, Provider Social History Tobacco Use Types Packs/Day Years Used Date Smoking Tobacco: Former Cigarettes 1 20 0 04/01/1992 - 04/01/2012 Smokeless Tobacco: Never Alcohol Use Standard Drinks/Week Comments Yes 0 (1 standard drink = 0.6 oz pur e alcohol) occasional Comments No Sex and Gender Information Value Date Recorded Sex Assigned at Not on file Legal Sex Female 4:06 AM FIRER [employer] Gender Identity Female 01/16/2024 11:18 AM CDT Sexual Orientation Straight 01/16/2024 11 :18 AM CDT documented as of this encounter Plan of Treatment Scheduled Procedures Name Priority Associated Diagnoses Date/Ti me TRANSPLANT KIDNEY ESRD (end stage renal disease) (CMS/HCC) (HCC) documented as of this encounter Procedures Procedure Name Priority Date/Time Associated Diagnosis Comments GI - RESULT 09/01/2021 documented in this encounter Results * GI - RESULT (09/01/2021) Anatomical Region Laterality Modality Other us Provider Scanning Final Result documented in this encounter Visit Diagnoses Not on filedocumented in this encounter Additional Health Concerns Infection Onset Date Last Indicated Resolved Time COVID: Recovered 11/15/2021 11/15/2021 03/15/2022 3:05 AM CDT documented as of this encounter Care Teams Racebook Writer Relationship Specialty Start Date End Date aPl Downey DO PCP - General Internal Medicine 01/25/21 Quinton Rowan MD Referring Physician Cardiology 01/09/19 Tami Flores RN [address] [address] Registered Nurse Cooker Tender 01/25/21 Cricket Escalante MD [address] [address] Referring Physician Nephrology 03/24/21 Gael Sprague MD PhD [address] [address] Fellow Endocrinology Diabetes & Metabolism 03/24/21 Brad Turner MD [address] [address] Consulting Physician Obstetrics and Gynecology 03/24/21 Margarita Montoya MD [address] [id number] Consulting Physician Trauma Surgery 12/27/21 Luca Lott MD [address] [address] Consulting Physician Cardiology 08/03/22 Pb Galloway MD [address] [facility] [id number] [place] [address] Cardiothoracic Surgery 05/25/24 Felipe Gerber MD [address] [facility] [id number] [place] [address] Consulting Physician Cardiology 05/25/24 documented as of this encounter
--- OUTSIDE RECORDS SUMMARY | 2024-11-26 21:08 | XMS_ITS | Clinical Summary ---
Author Organization [facility] Address [address] [place] [address] Care Team Providers Care [employer] Well Dr[employer] Manager Name Role Phone Quinotn Rowan MD Unavailable [phone] Pal Downey DO Primary Care Provider [phone] Tami Flores RN Unavailable Cricket Escalante MD Unavailable [phone] Gael Sprague MD PhD Unavailable Brad Turner MD Unavailable [phone] Margarita Montoya MD Unavailable [phone] Luca Medrano MD Unavailable Pb Galloway MD Unavailable [phone] Felipe Gerber MD Unavailable [phone] Allergies Active Allergy Reactions Criticality Noted Date Comments Amoxicillin Anaphylaxis High Per Armani Dumas MD, patient has previously tolerated cephalosporins. Frank Buckley, PharmD 05/10/2019 Ampicillin Anaphylaxis High 04/29/2015 Per Armani Dumas MD, patient has previously tolerated cephalosporins. Frank Buckley, PharmD 05/10/2019 Ghsoh Hives Medium 12/22/2021 Richards beans, navy beans; Is able to eat green beans Clarithromycin Anaphylaxis High Penicillins Anaphylaxis,Rash,Unknown High 04/29/2015 Tree Nuts Vomiting Low 08/21/2023 Medications calcitRIOL (ROCALTROL) 0.5 mcg capsule Take 1 capsule (0.5 mcg total) by mouth once a week Sundays 0 019 Active VENTOLIN HFA 90 mcg/actuation inhaler Inhale 2 puffs every 4 (four) hours as needed for wheezing or shortness of breath 3 018 Active multivit-min/ferr ous fumarate (MULTI VITAMIN ORAL) Take 1 tablet by mouth every morning Active sulfamethoxazole- trimethoprim (BACTRIM DS) 800-160 mg per tablet 1 tablet (160 mg of trimethoprim total) daily as needed Active gentamicin (GARAMYCIN) 0.1 % cream APPLY TO EXIT SITE ONCE DAILY Active loratadine (CLARITIN) 10 mg tablet Take 1 tablet (10 mg total) by mouth daily as needed Active fluconazole (DIFLUCAN) 100 mg tablet as needed 023 Active levothyroxine (SYNTHROID) 137 mcg tablet Take 1 tablet (137 mcg total) by mouth daily 023 Active acetaminophen (TYLENOL) 325 mg tabletIndications :Fever,Pain Take 2 tablets (650 mg total) by mouth every 4 (four) hours as needed for pain Active midodrine (PROAMATINE) 10 mg tabletIndications :Symptomatic Orthostatic Hypotension Take 1 tablet (10 mg total) by mouth 3 (three) times a day before meals 90 tablet 1 Active ondansetron ODT (ZOFRAN-ODT) 4 mg disintegrating tablet Take 1 tablet (4 mg total) by mouth every 8 (eight) hours as needed for nausea or vomiting 20 tablet 1 Active gabapentin (NEURONTIN) 100 mg capsule TAKE 1-3 CAPSULES BY MOUTH EVERY 48 HRS AT BEDTIME Active Xphozah 30 mg tablet Active azithromycin (ZITHROMAX) 500 mg tablet TAKE 1 TABLET BY MOUTH 30 MINUTES BEFORE APPOINTMENT OR PROCEDURE. Active nitroglycerin (NITROSTAT) 0.[address] 1 tablet (0.4 mg total) under the tongue every 5 (five) minutes as needed for chest pain May repeat dose q 5 min, up to 3 doses total 30 tablet Active fludrocortisone 0.1 mg tablet Take 1 tablet (0.1 mg total) by mouth daily Active ergocalciferol (VITAMIN D) 50,000 unit capsule Take 1 capsule (50,000 Units total) by mouth Active ferric citrate (Auryxia) 210 mg iron tablet Take 210 mg by mouth 2 (two) times a day Active aspirin 81 mg enteric coated tablet Take 1 tablet (81 mg total) by mouth daily 30 tablet 2025 Active clopidogreL (PLAVIX) 75 mg tablet Take 1 tablet (75 mg total) by mouth daily 90 tablet Active aspirin 81 mg enteric coated tablet Take 1 tablet (81 mg total) by mouth daily 2024 Discontinued Dianeal low calcium-dextrose 1.5 % Ca 2.5 mEq/L- Mg 0.5 mEq/L solution 5,000 mLIndications:Per itoneal Dialysis 1.5% and 2.5%, 4 cycles, 9 hours with 90% tidal. 2024 Discontinued(T herapy completed) Dianeal low calcium-dextrose 1.5 % Ca 2.5 mEq/L- Mg 0.5 mEq/L solution 5,000 mLIndications:Per itoneal Dialysis 1.5% and 2.5%, 4 cycles, 9 hours with 90% tidal. 2024 Discontinued(D uplicate order) calcium acetate,phosphat bind, (PHOSLO) 667 mg capsule Take 1 capsule (667 mg total) by mouth 3 (three) times a day with meals 90 capsule 2024 Discontinued(T herapy completed) furosemide (LASIX) 80 mg tablet Take 1 tablet (80 mg total) by mouth 2 (two) times a day 2024 Discontinued(T herapy completed) clopidogreL (PLAVIX) 75 mg tablet TAKE 1 TABLET BY MOUTH EVERY DAY 90 tablet 2025 Discontinued Hospital, Clinic, or Other Facility Administered Medication Ordered Dose Route Frequency Start Date End Date Status perflutren protein-a (OPTISON) 3 mL in sodium chloride 0.9% 8 mL syringe 1 - 8 mL IV Once in imaging 11/10/2024 11/10/2024 Ended Active Problems Problem Noted Date Diagnosed Date Chest pain 11/10/2024 S/P TAVR (transcatheter aortic valve replacement ) 05/25/2024 Assessment & Plan (05/25/2024 8:07 AM CDT): S/p TAVR in TAVR 05/21 Encouraged use of incentive spirometer Continue DAPT ABLA (acute blood loss anemia) 05/24/2024 Assessment & Plan (05/24/2024 11:32 AM CDT): Hgb decreased from 12 to 9.4 on 05/22 evening. PD dialysylate had blood tinge 05/22 and there was worry of a bleed. CTAP with contrast was negative for concerning findings and hgb trends stabilized - Continue to monitor with labs and transfuse for hgb<8 Peritonitis associated with peritoneal dialysis, initial encounter 08/21/2023 Polycystic liver disease 07/08/2023 ESRD (end stage renal disease) ([facility] 023 Assessment & Plan (05/21/2024 2:22 PM CDT): On peritoneal dialysis-management per renal team Chronic heart failure ([facility]) 08/02/2022 Assessment & Plan (05/24/2024 11:22 AM CDT): History of HFmrEF Daily weights I/Os Volume management with dialysis Holding lasix today Assessment & Plan (08/03/2022 9:31 AM CDT): -ICM -TTE 07/24 reveals LVEF 51%, normal RV, moderate AR, and moderate pH -appears euvolemic and well compensated on exam -utilizes PRN lasix as an OP -continue metop -accurate I&O, monitor on telemetry, daily weights End stage renal disease ([facility]) 08/02/2022 Assessment & Plan (08/03/2022 9:30 AM CDT): -Hx of PCKD -Kidney transplant workup on hold until cardiac issues resolved -Started PD early 2021 -continue phoslo -renal consulted for PD assistance Shoulder pain 07/21/2022 Pre-transplant evaluation for end stage renal di sease 02/01/2022 Overview (02/01/2022): Added automatically from request for surgery [id number] Disorder of peritoneal dialysis catheter 022 Overview (12/22/2021): Added automatically from request for surgery [id number] Chronic kidney disease, stage V ([facility] 2021 Overview (08/21/2023): Added automatically from request for surgery [id number] Sick sinus syndrome ([facility]) 11/02/2020 Diastolic heart failure 10/27/2019 S/P placement of cardiac pacemaker 06/05/2019 Assessment & Plan (05/21/2024 2:22 PM CDT): [employer] PPM Hypothyroidism 05/22/2019 Assessment & Plan (05/21/2024 2:22 PM CDT): Continue levothyroxine Assessment & Plan (08/02/2022 5:32 PM CDT): -continue levothyroxine 112mcg. Assessment & Plan (05/23/2019 8:33 AM CDT): S/p thyroidectomy for a reportedly benign thyroid nodule many years ago -TSH 18.53, Free T4 2.53, Free T3 1.1 this admission -Endocrine consult: no changes, continue dose of 150 Assessment & Plan (05/22/2019 12:09 PM CDT): S/p thyroidectomy for a reportedly benign thyroid nodule many years ago -TSH 18.53, Free T4 2.53, Free T3 1.1 this admission -Endocrine consult Hypokalemia 05/22/2019 Assessment & Plan (05/25/2019 10:16 AM CDT): CTM electrolytes, replete potassium cautiously given CKD Assessment & Plan (05/22/2019 12:08 PM CDT): Potassium level 3.4 this morning 2/2 diuresis -Supplemented with 40 mEq PO this morning -Monitor electrolytes daily while diuresing Consolidation of left lower lobe of lung (CMS/HC C) 05/20/2019 Assessment & Plan (05/24/2019 11:10 AM CDT): CXR 05/20 showed LLL consolidation - chest CT scan with small left-sided pleural effusion and new small right-sided pleural effusion, mild pulmonary edema, no evidence pneumonia - continue diuresis Assessment & Plan (05/22/2019 11:31 AM CDT): CXR 05/20 showed LLL consolidation - chest CT scan with small left-sided pleural effusion and new small right-sided pleural effusion, mild pulmonary edema, no evidence pneumonia - continue diuresis Assessment & Plan (05/21/2019 11:41 AM CDT): CXR 05/20 showed LLL consolidation - chest CT scan with small left-sided pleural effusion and new small right-sided pleural effusion, mild pulmonary edema, no evidence pneumonia - diuresis Normocytic anemia 05/14/2019 Assessment & Plan (05/25/2019 10:19 AM CDT): Likely multifactorial due to chronic renal disease and iron deficiency -Baseline Hgb 7.2-8.5, last hgb 7.9 with no signs of bleeding, repeat cbc in am -Currently taking Ferrous Sulfate 325 mg BID with meals -Iron 28, TIBC 284, Transferrin sat 10, consider IV iron replacement Assessment & Plan (05/22/2019 12:10 PM CDT): Likely multifactorial due to chronic renal disease and iron deficiency -Baseline Hgb 7.2-8.5, currently 7.9 with no signs of bleeding -Iron 16, TIBC 292, Transferrin Sat 5, Ferritin 5, Folate 63 on 05/14/19 during last admission -Currently taking Ferrous Sulfate 325 mg BID with meals -Repeat iron battery this admission, if low consider IV Iron replacement Assessment & Plan (05/17/2019 9:29 AM CDT): Hgb b/l 8-10, now 8.2 - Likely iatrogrenic, looks like ZOYA per labs, now post-op. Transfuse Hgb <7 - Iron 16, TBC 292, Transferrin Saturation 5, Ferritin 63. B12 and Folate WNL. Assessment & Plan (05/14/2019 7:22 AM CDT): Hgb stable at 8 past several days -iron studies, folate, b12 today -likely from frequent blood draws in setting of chronic anemia as well Transaminitis 05/12/2019 Assessment & Plan (05/17/2019 9:18 AM CDT): Improving. ALT 104, AST 45. -consider RUQ ultrasound if worsens Assessment & Plan (05/14/2019 7:09 AM CDT): Not improving as well w/ increased HR -will d/c atorva and continue to follow -improving, do not think need RUQ us today -consider RUQ ultrasound if does not continue to improve in coming days Nausea 05/10/2019 Assessment & Plan (05/17/2019 9:17 AM CDT): - Nausea worse today, tolerating diet but endorses poor PO intake. - Holding off on QT prolonging drugs, ativan for nausea has helped Assessment & Plan (05/12/2019 7:09 AM CDT): -Patient continues to report nausea, no vomiting since admission -Started on Tigan w/ no improvement -Holding off on QT prolonging drugs, ativan for nausea has helped Severe protein-calorie malnutrition (CMS/HCC) Assessment & Plan (05/11/2019 7:06 AM CDT): Supplement w/ ensure Perivalvular leak of prosthetic heart valve 04/20 Assessment & Plan (05/25/2024 8:06 AM CDT): Severe bioprosthetic valvular dysfunction Previous bioAVR with TAVR in 2019 Hitesh TAVR 05/21 DAPT given previous PCI Monitor on telemetry Assessment & Plan (05/25/2019 10:21 AM CDT): Pt admitted with volume overload, SOB, lethargy, nausea. Hx sign for attempted SAVR + 2v CABG c/b inability to place surgical valve and s/p TAVR c/b paravalvular leak and afib. Recent admission for shock and bradycardia s/p dual ch PPM. Current symptoms and exam most consistent with volume overload secondary to perivalvular AI. -hemodynamically stable, volume status improving, wt down 13 lbs from admit, continue Lasix IV 80mg BID -transaminitis secondary to hepatic congestion, improving -chronically elevated troponin secondary to demand ischemia, no need to trend -will plan to reintroduce beta pamela once euvolemic as outpatient -PT -will need cardiac rehab at discharge -accurate I&O, monitor on telemetry, daily weights Assessment & Plan (05/22/2019 12:14 PM CDT): Pt admitted with volume overload, SOB, lethargy, nausea. Hx sign for attempted SAVR + 2v CABG c/b inability to place surgical valve and s/p TAVR c/b paravalvular leak and afib. Recent admission for shock and bradycardia s/p dual ch PPM. Current symptoms and exam most consistent with volume overload secondary to perivalvular AI. -net neg 2300mL and weight down 2 kg since admit -hemodynamically stable but remains volume overloaded on exam today, continue Lasix IV 80mg BID -transaminitis secondary to hepatic congestion, improving, will resume Atorvastatin today -chronically elevated troponin secondary to demand ischemia, no need to trend -will plan to reintroduce beta pamela once euvolemic as outpatient -PT -will need cardiac rehab at discharge -accurate I&O, monitor on telemetry, daily weights Assessment & Plan (05/21/2019 2:12 PM CDT): Pt admitted with volume overload, SOB, lethargy, nausea. Hx sign for attempted SAVR + 2v CABG c/b inability to place surgical valve and s/p TAVR c/b paravalvular leak and afib. Recent admission for shock and bradycardia s/p dual ch PPM. Current symptoms and exam most consistent with volume overload secondary to perivalvular AI. -hemodynamically stable but volume overloaded on exam, start lasix IV 80mg BID -transaminitis 2/2 hepatic congestion -chronically elevated troponin 2/2 demand ischemia, no need to trend -check TSH, recheck lactate -PT -will need cardiac rehab at discharge -accurate I&O, monitor on telemetry, daily weights Assessment & Plan (05/11/2019 7:03 AM CDT): -s/p AVR and valvular annuloplasty in 01/2019 -being followed by Dr. Rowan -in need of replacement -likely contributing to shock Aortic valve replaced 03/29/2019 Rash 03/05/2019 Assessment & Plan (03/10/2019 8:50 AM CDT): Pt with a vesicular rash on thigh, below sternotomy and left ring finger. +HSV Nonpainful 2-3 of them are dry, others look vesicular. Pt states she has had these since childhood and uses campho for treatment Pleural effusion 02/26/2019 Assessment & Plan (04/17/2019 12:11 PM CDT): CXR with bibasilar atelectasis and edema. Diuresis as tolerated 04/17 repeat CXR today Assessment & Plan (03/13/2019 9:30 AM CDT): Post Left Pleuryx placed per IP on 02/27 Continues to drain significant amounts, clear rocky - will keep to suction- no airleak noted continue I &O plus daily weights Assessment & Plan (02/26/2019 12:45 PM CDT): IP consulted for left sided tap with possible pigtail placement if needed -unable to do today because pt is off the floor with CAYLA and will be receiving anesthia -rescheduled for tomorrow Cardiogenic shock 02/14/2019 Assessment & Plan (05/13/2019 8:27 AM CDT): Worsening LFTs, Cr, trop, no urine output throughout the day on 05/10 despite fluids -started dopamine and started to have urine output on 05/10 -SCVO2 26 -> 31 w/ dopamine likely cardiogenic -did start vanc/cefe given rising WBC -WBC improved, remains afebrile- abx until bcx and ucx neg x 48 hours (05/10- 05/12) -continue to give small fluid boluses as needed -CAYLA 05/12 w/o signs of infection, redemonstrated AI w/ paravalvular leak and mod-severe TR NSTEMI (non-ST elevated myocardial infarction) ( [facility]) 02/07/2019 Assessment & Plan (05/12/2019 10:18 AM CDT): -trops 0.05.0.08>0.09>0.24 -> 0.58 ->0.62 -> 0.68 -> 0.69 -> 0.64 suspect 2/2 demand in setting of bradycardia and shock -EKG at ED w/ T wave inversions in V1 and V2 -ASA, hep gtt, plavix - peaked at 0.69, will not continue to trend - d/c hep gtt given >48 hrs and downtrending trop Assessment & Plan (03/12/2019 12:30 PM CDT): Post op from CABG on 02/11 (to LAD & LCA), s/p IABP Ongoing post op care (see above) Continue ASA, Statin, and BB--no juan a related to intermittent Hypotension Ongoing aggressive IS, PT and pulm toilet Assessment & Plan (02/25/2019 11:43 AM CDT): [facility] with 95% LAD lesion, had some RV dysfunction during AV repair and found to have RCA occlusion following LAD bypass - s/p IABP placement - CABG to LAD and LCA 02/11 - continue ASA, Statin, and BB (increase the bb if tolerated, blood pressure on the low side now) CT/Wires are out - continue to mobilize patient and aggressive IS Assessment & Plan (02/24/2019 9:29 AM CDT): C with 95% LAD lesion, had some RV dysfunction during AV repair and found to have RCA occlusion following LAD bypass - s/p IABP placement - CABG to LAD and LCA 02/11 - continue ASA, Statin, and BB (increase the bb if tolerated, blood pressure on the low side now) CT/Wires are out - continue to mobilize patient and aggressive IS Assessment & Plan (02/20/2019 5:17 AM CDT): [facility] with 95% LAD lesion, had some RV dysfunction during AV repair and found to have RCA occlusion following LAD bypass - s/p IABP placement - CABG to LAD and LCA Assessment & Plan (02/19/2019 2:08 AM CDT): [facility] with 95% LAD lesion, had some RV dysfunction during AV repair and found to have RCA occlusion following LAD bypass - s/p IABP placement - CABG to LAD and LCA Assessment & Plan (02/17/2019 7:38 PM CDT): C with 95% LAD lesion, had some RV dysfunction during AV repair and found to have RCA occlusion following LAD bypass - s/p IABP placement - CABG to LAD and LCA - on Epi and Milrinone, wean epi as above Assessment & Plan (02/16/2019 11:38 PM CDT): [facility] with 95% LAD lesion, had some RV dysfunction during AV repair and found to have RCA occlusion following LAD bypass - s/p IABP placement - CABG to LAD and LCA - on Epi and Milrinone of inotropy Assessment & Plan (02/11/2019 6:16 PM CDT): C with 95% LAD lesion, had some RV dysfunction during AV repair and found to have RCA occlusion following LAD bypass - s/p IABP placement - CABG to LAD and LCA - on Epi and Milrinone of inotropy Assessment & Plan (02/08/2019 5:38 PM CDT): -Patient w/ chest pain/SOB along w/ significant troponin elevation -Plan for LHC w/ possible PCI tomorrow pending results -heparin, aspirin, statin, carvedilol -IVF for prehydration given high risk of CI SARAH Assessment & Plan (02/10/2019 9:55 AM CDT): initially p/w trop 0.27 at OSH, now 5.2. Pt has chronic h/o intermittent CP that can occur at random, however does note increased SOB for past 2 days. EKG at OSH with c/f mild ROSMERY V1 and aVR, STD III, AVF, V4-V6, TWI I and AVL. C/f ACS, started on hep gtt and txf here. - EKG here shows no ROSMERY or STD but TWI in V1-V5, I, AVL. Repeat EKGs with same. - trops peak 5.24 on arrival, downtrended to 4.35 - valve team consulted, 02/09 [facility] with severe 1 vessel disease of ostial and proximal LAD which has a 95% lesion. CTS consulted for CABG and SAVR evaluation. - continue hep gtt, ASA - changed pravastatin 10 to atorva 40 - if CP, SL nitro and repeat EKG Now with evolving ST changes on EKG, plan for emergent cath and placement of balloon pump with transfer to CCU. Postoperative hypothyroidism 02/07/2019 Assessment & Plan (05/17/2019 9:17 AM CDT): - Continue home synthroid 150mcg PO daily Assessment & Plan (05/09/2019 8:22 PM CDT): -continue home synthroid 150mcg PO daily Assessment & Plan (04/17/2019 12:10 PM CDT): Continue Synthroid TSH high (72.3), T3 is low, T4 is nml. Currently on levothyroxine 150 daily Assessment & Plan (03/04/2019 10:45 AM CDT): H/o thyroid mass resection c/b hypothyroidism - continue home Synthroid Assessment & Plan (02/25/2019 11:43 AM CDT): H/o thyroid mass resection c/b hypothyroidism - continue home synthroid Assessment & Plan (02/21/2019 12:56 PM CDT): H/o thyroid mass resection c/b hypothyroidism - continue home synthroid Assessment & Plan (02/20/2019 5:17 AM CDT): H/o thyroid mass resection c/b hypothyroidism - continue home synthroid Assessment & Plan (02/19/2019 2:08 AM CDT): H/o thyroid mass resection c/b hypothyroidism - continue home synthroid Assessment & Plan (02/17/2019 7:55 PM CDT): H/o thyroid mass resection c/b hypothyroidism - continue home synthoid Assessment & Plan (02/16/2019 11:38 PM CDT): H/o thyroid mass resection c/b hypothyroidism - continue home synthoid Assessment & Plan (02/11/2019 6:11 PM CDT): H/o thyroid mass resection c/b hypothyroidism - continue home synthoid Assessment & Plan (02/07/2019 4:39 PM CDT): 2/2 resection of thyroid mass - continue levothyroxine 150 mcg daily Essential hypertension 02/07/2019 Overview (02/09/2019): Added automatically from request for surgery [id number] Assessment & Plan (05/17/2019 9:19 AM CDT): Currently holding her home metoprolol due to bradycardia on admission. -BP stable, continue to monitor Assessment & Plan (05/14/2019 7:09 AM CDT): -currently holding her home metoprolol due to bradycardia on adimission. -may need a new agent once PPM is placed, will continue to address Assessment & Plan (04/17/2019 12:11 PM CDT): Continue Metoprolol Titrate as tolerated PRN hydralazine 04/17 increased metoprolol to 12.5mg bid Assessment & Plan (02/26/2019 12:29 PM CDT): Monitor Q4 hour vitals and adjust medications as needed Assessment & Plan (02/25/2019 11:40 AM CDT): Monitor Q4 hour vitals and adjust medications as needed Assessment & Plan (02/24/2019 9:28 AM CDT): Monitor Q4 hour vitals and adjust medications as needed CAD (coronary artery disease) 02/07/2019 Overview (02/10/2019): Added automatically from request for surgery [id number] Assessment & Plan (05/24/2024 11:21 AM CDT): CABG 2018 (SVG-LAD, T graft-RCA), PCI SVG-LAD 02/2022 and repeat PCI in 07/2022 Continue DAPT Holding the BB for now Assessment & Plan (08/03/2022 2:24 PM CDT): -s/p CABG 2018, PCI with stent placement 02/2022 and 07/24/2022 -Complex cardiac hx, including CAD s/p CABG/stents, aortic stenosis s/p AVR, diastolic HF, and sinus dysfunction s/p PPM. -S/p Recent PCI on 07/24 for Severe InStent restenosis of the stent placed to the saphenous vein graft to the LAD status post laser atherectomy with OSIRO karina placement now arrives as transfer from OSH with left shoulder pain similar to previous CA -EKG changes per OSH --Slight elevation in V2, slight ST depressions in lead II, and lateral precordials with T wave inversions. -Currently with low grade left shoulder pain that has improved since admission to OSH on 07/31 -Trop trending downward -EKG now and in the AM, PRN if chest pain worsens -Continue plavix, asa, beta pamela -Continue heparin infusion -Repatha Q14 days as OP -NPO for possible LHC/stress Assessment & Plan (05/25/2019 10:15 AM CDT): S/p CABG 01/2019 -Continue ASA and atorvastatin -Plan to resume beta pamela as outpatient Assessment & Plan (05/22/2019 12:07 PM CDT): S/p CABG 01/2019 -Continue ASA -Restart Atrovastatin -Plan to resume beta pamela as outpatient Assessment & Plan (05/17/2019 9:20 AM CDT): s/p 2 vessel CABG -on asa 81 -Statin held for transaminitis initially. Will restart outpatient 1 week after Friday 05/18. Assessment & Plan (05/09/2019 8:25 PM CDT): - Continuing home aspirin 81mg PO daily and atorvastatin 40mg PO nightly Assessment & Plan (02/26/2019 12:29 PM CDT): S/P CABG-continue aspirin, statin, BB PT/OT Aggressive pulmonary toilet Assessment & Plan (02/25/2019 11:40 AM CDT): S/P CABG-continue aspirin, statin, BB PT/OT Aggressive pulmonary toilet Assessment & Plan (02/24/2019 9:28 AM CDT): S/P CABG-continue aspirin, statin, BB PT/OT Hyperlipidemia 10/29/2018 Other specified disorders of parathyroid gland 0 05/26/2018 Assessment & Plan (05/24/2024 11:29 AM CDT): On PD at home and normally uses yellow bags, sometimes uses yellow to green if she feels fluid overloaded. Before admission, she has been using 2x yellow to green bags nightly without improvement in SOB and swelling. She was previously undergoing transplant work up but has been on hold due to severe . Nephro following, monitor daily weights, and is ok to restart HD on 05/24 Maintain good bowel regimen as constipation may interfere with PD Receiving calcium with meals, holding the Calcitriol Acute kidney injury superimposed on chronic kidn ey disease 01/22/2018 Assessment & Plan (05/25/2019 10:13 AM CDT): SARAH on CKD, Stage 4 -Improved with diuresis, 3.2 yesterday, now 3.39 -can likely decrease diuretics -Continue to monitor -Avoid nephrotoxic agents Assessment & Plan (05/22/2019 12:07 PM CDT): SARAH on CKD, Stage 4 -Improving with diuresis -Continue to monitor -Avoid nephrotoxic agents Assessment & Plan (05/21/2019 11:32 AM CDT): SARAH on CKD, Stage 4, now with higher Cr than baseline. Suspicious for low-flow as etiology. -Cont to monitor -Avoid nephrotoxic agents Assessment & Plan (05/17/2019 9:19 AM CDT): Cr back to baseline at 3.12 (b/l looks like 2.7-3.3) -On renal diet, fluid restriction Assessment & Plan (05/14/2019 7:08 AM CDT): -Monitor Cr, Cr on admission 3.42 -hold nephrotoxic drugs - up to 4.59 improved to 4.29 w/ fluids and dopamine -> 3.99-> 3.5 -> 3.13 Assessment & Plan (04/17/2019 12:10 PM CDT): Daily BMP History of stage IV CKD, history of polycystic kidney disease Baseline creat level 2.6-3.4, 3.60 today. Lasix 40 mg this am and 20mg this evening Recheck bmp this elder Assessment & Plan (03/13/2019 9:28 AM CDT): H/o polycystic kidney disease with baseline Cr 2.4, Cr consistently elevated post-op - currently stable Daily BMPs, while inpatient Home membership assistant is Dr. Escalante Continue lasix 40 mg po today Assessment & Plan (02/26/2019 12:28 PM CDT): H/o polycystic kidney disease with baseline Cr 2.4, Cr consistently elevated post-op around 3.3-3.9 Home MD (renal) is Dr. Escalante Continue to hold lasix Did not take lasix preop Assessment & Plan (02/25/2019 11:40 AM CDT): H/o polycystic kidney disease with baseline Cr 2.4, Cr consistently elevated post-op around 3.3-3.9 Home (renal) is Dr. Escalante Continue to hold lasix Did not take lasix preop Assessment & Plan (02/24/2019 9:27 AM CDT): H/o polycystic kidney disease with baseline Cr 2.4, Cr consistently elevated post-op around 3.5-3.9 Home MD (renal) is Dr. Escalante Continue to hold lasix Did not take lasix preop Assessment & Plan (02/20/2019 5:16 AM CDT): H/o polycystic kidney disease with baseline Cr 2.4, Cr consistently elevated post-op around 3.8-3.9 - keep henriquez - CTM Cr - lasix and metolazone for FBG -1 to -2L Assessment & Plan (02/19/2019 1:56 AM CDT): H/o polycystic kidney disease with baseline Cr 2.4, Cr consistently elevated post-op around 3.8-3.9 - keep henriquez - CTM Cr - lasix and metolazone for FBG -1 to -2L Assessment & Plan (02/17/2019 7:36 PM CDT): H/o polycystic kidney disease with baseline Cr 2.4, Cr consistently elevated post-op around 3.8-3.9 - keep henriquez - CTM Cr - lasix and metolazone for FBG -2L Assessment & Plan (02/16/2019 11:38 PM CDT): H/o polycystic kidney disease with baseline Cr 2.4, very low urine output at 200 cc despite receiving over 3 L of fluid and products. - keep henriquez Assessment & Plan (02/11/2019 6:20 PM CDT): H/o polycystic kidney disease with baseline Cr 2.4, very low urine output at 200 cc despite receiving over 3 L of fluid and products. Will likely need renal replacement therapy post-op - keep henriquez - wean milrinone as soon as able Assessment & Plan (02/10/2019 9:53 AM CDT): Due to polycystic kidney disease, baseline Cr 2.4-2.6. F/b OSH membership assistant. Apparently discussions for potential need for renal txp being discussed. - Cr at baseline on adm - avoid nephrotoxins, renally dose meds - continue calcitriol 0.5 mcg/day - Cr 2.75, received pre-cath hydration, stable 2.7 Headache 05/02/2016 Moderate COPD (chronic obstr uctive pulmonary disease) ([facility]) 11/02/2015 Assessment & Plan (08/02/2022 5:33 PM CDT): -continue home inhalers -no wheezing or shortness of breath on exam Assessment & Plan (05/09/2019 8:22 PM CDT): -Saturating 95% on Ra on admission, no SOB. 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 Soriano - continue albuterol prn Kyphoscoliosis 11/02/2015 Paralysis of vocal cords and larynx, unspecified 01/14/2015 Nontoxic multinodular goiter 01/13/2015 Stenosis of carotid artery 05/27/2014 Disease of spinal cord 04/30/2014 Polycystic kidney, adult type 04/28/2012 Bicuspid aortic valve 11/23/2010 Current smoker 11/23/2010 Migraine headache 06/08/2008 Aortic valve stenosis Assessment & Plan (05/25/2024 8:08 AM CDT): Hitesh TAVR 05/21 Followed by [facility], Dr. Medrano. CT TAVR on 04/28 showed prosthetic aortic valve stenosis and NEW filling defect along the posterior aspect of the prosthetic valve near the ventricular outflow tract, which may represent thrombus or pannus. Post op HITESH c/b hypotension requiring brief pressors and hypoxemia requiring supplemental O2. Troponin elevated, peaked at 1059 likely secondary to TAVR, no ischemic changes on EKG. TTE 05/22 s/p Hitesh-TAVR shows bioprosthetic valve well seated, no AR, LVEF 60-65%. 05/23 TTF Over the weekend- she felt funny very tired VSS, O2 sat good at 96%. BS 118 Pt states she had not eaten in 3 days. Discussed with the TAVR team, will monitor. No major concerns On asa, plavix, lasix on hold, added midodrine in the post op period CTM femoral access sites, today they are clean and dry, glue intact Assessment & Plan (08/02/2022 5:35 PM CDT): -s/p AVR 2018, now with moderate AR and not a candidate for intervention [facility] Assessment & Plan (05/17/2019 9:28 AM CDT): Bicuspid aortic valve s/p SAVR (01/2019) -now with AI on CAYLA 05/11 likely 2/2 heavily calcified aorta, per valve team no plans for intervention currently -follows with Dr. Rowan Assessment & Plan (05/14/2019 7:08 AM CDT): - s/p AVR now w/ AI -recently admitted in 04/14-04/18 for chest pain and SOB (primary dx: aortic stenosis). -consult valve team for recommendations -likely leak is contributing to her shock, no plan for intervention Assessment & Plan (04/17/2019 12:09 PM CDT): S/P AVR/CABG x1 02/11/19 Developed perivalvular leak- balloon valvuloplasty x2 attempted but unsuccessful TTE : Mod AR, decreased pericardial effusion, mod TR, PAP 35+ Consulted TAVR team, plans for readmission later for planned [place] procedure. 04/17 increased SOB, give lasix 40mg po this am and 20mg this elder Check CXR, repeat bmp later today Holding DC today Assessment & Plan (03/13/2019 9:27 AM CDT): s/p aortic valve replacement with TAVR valve and root patch on 02/11 Ongoing post op care (telemetry, med adjustments, VS, I &O, weights) On ASA, and statin, metoprolol Moderate AR noted on most recent echo/CAYLA Balloon angioplasty unsuccessful 03/04. Pleural chest tube continues with moderate output- keep today per SM Continue daily 40 mg lasix Assessment & Plan (02/26/2019 12:28 PM CDT): Pre-op diagnosis of paradoxical low flow aortic stenosis for which she underwent surgical repair - s/p aortic valve replacement with TAVR valve and root patch on 02/11 - continue Metoprolol, ASA, and statin Assessment & Plan (02/25/2019 11:40 AM CDT): Pre-op diagnosis of paradoxical low flow aortic stenosis for which she underwent surgical repair - s/p aortic valve replacement with TAVR valve and root patch on 02/11 - continue Metoprolol, ASA, and statin Assessment & Plan (02/23/2019 12:25 PM CDT): Pre-op diagnosis of paradoxical low flow aortic stenosis for which she underwent surgical repair - s/p aortic valve replacement with TAVR valve and root patch on 02/11 - continue Metoprolol, ASA, and statin Assessment & Plan (02/20/2019 4:39 AM CDT): Pre-op diagnosis of paradoxical low flow aortic stenosis for which she underwent surgical repair - s/p aortic valve replacement with TAVR valve and root patch - maintain MAP 60 - 70, Nicardipine as needed Assessment & Plan (02/19/2019 1:52 AM CDT): Pre-op diagnosis of paradoxical low flow aortic stenosis for which she underwent surgical repair - s/p aortic valve replacement with TAVR valve and root patch - maintain MAP 60 - 70, Nicardipine as needed Assessment & Plan (02/17/2019 7:34 PM CDT): Pre-op diagnosis of paradoxical low flow aortic stenosis for which she underwent surgical repair - s/p aortic valve replacement with TAVR valve and root patch - maintain MAP 60 - 70, Nicardipine as needed - Epi and Milrinone for inotropy, wean epi 0.01 q8h Assessment & Plan (02/16/2019 11:37 PM CDT): Pre-op diagnosis of paradoxical low flow aortic stenosis for which she underwent surgical repair - s/p aortic valve replacement with TAVR valve and root patch - maintain MAP 60 - 70, Nicardipine as needed - Epi and Milrinone for inotropy - off Levo and Vaso Assessment & Plan (02/16/2019 3:05 AM CDT): Pre-op diagnosis of paradoxical low flow aortic stenosis for which she underwent surgical repair - s/p aortic valve replacement with TAVR valve and root patch - maintain MAP 60 - 70, Nicardipine as needed - Epi and Milrinone for inotropy - off Levo and Vaso Assessment & Plan (02/10/2019 9:54 AM CDT): In s/o bicuspid AV. Referred to valve team by primary health program specialist Dr. Rowan. Seen 02/02 by valve team (Dr. Gerber) and CTS (Dr. Fernández) - TAVR TTE 02/02 with paradoxical low flow low gradient severe (AV mean gradient 25, peak gradient 38, ASHOK 0.7 cm2 using LVOT diameter of 1.9 cm) with hyperdynamic LV systolic function EF >75%. Mild TR with normal PASP. - scheduled for 02/27 outpatient C/RHC with AV assessment with gradients and IVUS of lower ext to eval fem arteries for possible TAVR - euvolemic currently, spot diurese - added hydral 25 TID for afterload reduction - valve team consulted, pt is poor candidate for TAVR, needs SAVR, CTS consulted Resolved Problems Problem Noted Date Diagnosed Date Resolved Date Aortic valve insufficiency, acquired 05/19/2024 05/24/2024 Chest pain 08/02/2022 08/02/2022 CAD (coronary artery disease) 05/21/2019 05/22/2019 Assessment & Plan (05/21/2019 11:41 AM CDT): S/p CABG 01/2019 -continue ASA -evaluate for beta pamela and statin Demand ischemia 05/20/2019 05/21/2019 Assessment & Plan (05/20/2019 8:47 PM CDT): Mild troponin elevation suggestive of demand ischemia. No ECG changes. Stop trending troponins Bradycardia 05/09/2019 05/21/2019 Assessment & Plan (05/21/2019 11:07 AM CDT): She was hospitalized last week for nausea/vomiting with lactic acidosis and significant bradycardia with junctional rhythm, was in the CCU requiring dopamine for chronotropic support with stabilization of her vital signs and labs. -underwent Right sided dual chamber PPM placement for sinus node dysfunction and was discharged in stable condition Assessment & Plan (05/17/2019 9:21 AM CDT): Patient admitted with a HR of 47bpm on ECG on admission with junctional rhythm. Started on dopamine on 05/10 with now resolved lactic acidosis, improved cr and troponin -s/p PPM on 05/15, f/u CXR ordered -EP following, rec no AC for 48 hours and to f/u outpatient as scheduled Assessment & Plan (05/14/2019 9:42 AM CDT): -Patient admitted with a HR of 47bpm on ECG on admission with junctional rhythm. Symptomatic w/ weakness and nausea. - transcutaneous pacer pads placed on pt -holding home metoprolol -atropine administered once overnight for an episode of HR in 30s. -started dopamine on 05/10 given worsening lactate, Cr, trop w/ improvement -EP consult: will decide about PM after valve plan can consider temporary pacer if chronotropic meds don't help in the meantime -no plan for intervention on valve, can proceed with PM placement of EP's choice: plan for tomorrow 05/15 Shortness of breath 04/14/2019 04/15/20 19 Assessment & Plan (04/14/2019 7:10 PM CDT): Will obtain CXR 2V Will obtain CAYLA Diuresis as tolerated in the setting of stage IV CKD Monitor closely Strict intake and output Daily weights Pleural effusion 03/05/2019 03/05/2019 Assessment & Plan (03/05/2019 9:25 AM CDT): Left chest tube Shingles 03/05/2019 03/05/2019 Overview (03/05/2019): Pt with a vesicular rash on tigh, below sternotomy and left ring finger. Nonpainful 2-3 of them are dry, others look vesicular. Pt states she has had these since childhood and uses campho for treatment Will have Derm see today Pericardial effusion 02/26/2019 019 Assessment & Plan (03/08/2019 10:52 AM CDT): Pericardial effusion noted on CT & TTE Drain placed 03/04. Drained 150ml initially and 15 last night Assessment & Plan (02/26/2019 12:31 PM CDT): Pericardial effusion noted on CT & TTE Plan for CAYLA today to further assess valve status is it leaking and effusion status Leukocytosis 02/21/2019 03/03/2019 Assessment & Plan (02/28/2019 10:18 AM CDT): Daily CBC WBC slight uptrend from yesterday could be due to placement of left pleurex. 02/23/19 UA (-) May be in part due to atelectasis Recent loose stools due to laxatives - Cdiff negative Needs to be OOB/ IS Central line and henriquez are out Will continue to monitor Continue Ceftraixone Assessment & Plan (02/26/2019 12:29 PM CDT): Daily CBC WBC with slow trend down. Unclear as to etiology. UA (-) May be in part due to atelectasis Recent loose stools due to laxatives - Cdiff negative Repeat CXR-shows small Left effusion, LLL atelectasis Needs to be OOB/ IS Central line and henriquez are out Will continue to monitor- WBC 13.3 from 17.6 Continue Ceftraixone Assessment & Plan (02/25/2019 11:41 AM CDT): Daily CBC WBC with slow trend down. Unclear as to etiology. UA (-) May be in part due to atelectasis Recent loose stools due to laxatives - Cdiff negative Repeat CXR-shows small Left effusion, LLL atelectasis Needs to be OOB/ IS Central line and henriquez are out Will continue to monitor- WBC 17.6 from 17.3 Continue Ceftraixone Assessment & Plan (02/24/2019 9:30 AM CDT): Daily CBC WBC with slow trend down. Unclear as to etiology. UA (-) May be in part due to atelectasis Recent loose stools due to laxatives - Cdiff negative Repeat CXR Needs to be OOB/ IS Central line and henriquez are out Will continue to monitor Continue Ceftraixone SARAH (acute kidney injury) 02/16/2019 Assessment & Plan (02/20/2019 5:18 AM CDT): Volume overload/renal congestion on lasix gtt -ctm BMP q 8 -replete k carefully -FBG negative 1 to 2 L -metolazone 10 BID Assessment & Plan (02/19/2019 2:11 AM CDT): Volume overload/renal congestion on lasix gtt -ctm BMP q 8 -replete k carefully -FBG negative 1 to 2 L -metolazone 10 BID Assessment & Plan (02/18/2019 1:18 AM CDT): Volume overload/renal congestion on lasix gtt -ctm BMP q 8 -replete k carefully -FBG negative 2 L -metolazone 10 BID Assessment & Plan (02/16/2019 11:55 PM CDT): Volume overload/renal congestion on lasix gtt -ctm BMP q 8 -replete k carefully -FBG negative 1 L -metolazone 10 BID -bicarb for metabolic acidosis Volume overload 02/14/2019 03/03/2019 Assessment & Plan (02/25/2019 11:43 AM CDT): Pt above POW by 3 kg. Lasix on hold due to elevation in Creatinine Baseline creat is around 2.4 Dr Escalante is her home membership assistant Assessment & Plan (02/23/2019 12:20 PM CDT): Pt above POW by 2 kg. Lasix on hold due to elevation in Creatinine Baseline creat is around 2.4 Dr Escalante is her home membership assistant Agitation requiring sedation protocol 02/14/2019 02/23/2019 Acute pain 02/14/2019 02/23/2019 Acute respiratory failure wi th hypoxia (CMS/HCC) 02/11/2019 02/23/2019 Overview (02/11/2019): Assessment & Plan (02/20/2019 5:17 AM CDT): Acute hypoxic respiratory failure now on NC -US with evidence of impaired L diaphragmatic movement -CTM respiratory status, CXRs Assessment & Plan (02/19/2019 2:09 AM CDT): Acute hypoxic respiratory failure now on NC -US with evidence of impaired L diaphragmatic movement -CTM respiratory status, CXRs, and ABGs Assessment & Plan (02/17/2019 8:29 PM CDT): Acute hypoxic respiratory failure on optiflow during the day and now on NC -US with evidence of impaired L diaphragmatic movement -cxr with worsening left sided effusion, now s/p thoracentesis of -continue to follow abg for changes in condition Assessment & Plan (02/16/2019 11:40 PM CDT): Acute hypoxic respiratory failure on optiflow during the day and now BIPAP -US with evidence of impaired L diaphragmatic movement -cxr with worsening left sided effusion -likely need thoracentesis today -continue to follow abg for changes in condition Assessment & Plan (02/16/2019 3:06 AM CDT): Remained intubated post-operatively - extubated - on BiPAP for persistent respiratory acidosis - started on sodium bicarb Hypertension 06/21/2017 02/23/2019 Assessment & Plan (02/20/2019 4:39 AM CDT): -nicardipine for MAP 60-70, not currently requiring Assessment & Plan (02/19/2019 1:51 AM CDT): -nicardipine for MAP 60-70, not currently requiring Assessment & Plan (02/17/2019 7:32 PM CDT): -nicardipine for MAP 60-70 Assessment & Plan (02/16/2019 11:36 PM CDT): -nicardipine for MAP 60-70 -milranone as a inotrope Assessment & Plan (02/10/2019 9:56 AM CDT): 205/115 on arrival to OSH. Per pt, she has trialed many different antihypertensives which either were not effective or she had reactions to (?). Per OSH membership assistant's note in Care Everywhere, pt tried metoprolol which made her weak, amlodipine which didn't work, cant take juan a/arb with declining kidney functions, nifediipine caused side effects - At home on diltiazem 360 daily and was recently started on coreg 3.125 BID (pt only taking once daily as she did not realize was BID med) - increased coreg to 6.25 BID and uptitrate as needed - started hydral 25 TID (for afterload reduction) Encounters Date Type Department Care Team Description 11/19/2024 2:02 PM ROUTE DRIVER - 11/19/2024 3:42 PM ROUTE DRIVER Surgery [facility] [address] [place] [address] Luca Medrano MD LEFT HEART CATHETERIZATION WITH CORONARY ANGIOGRAPHY AND WITH OR WITHOUT LEFT VENTRICULOGRAM [id number] 11/19/2024 11:04 AM ROUTE DRIVER - 11/19/2024 7:20 PM ROUTE DRIVER Hospital Encounter [facility] [place] [address] [place] [address] Luca Medrano MD Coronary artery disease involving [place] coronary artery of [place] heart with angina pectoris (HCC) [I25.119] (Primary Dx); Chest pain, unspecified type Discharge Disposition: Discharge to home or self care 11/18/2024 11:45 AM ROUTE DRIVER Office Visit [facility] [address] [place] [address] 8th [place] [address] [place] [address] Lane Ramos MD PhD SSS (sick sinus syndrome) (CMS/HCC) (HCC) (Primary Dx) 11/18/2024 11:15 AM ROUTE DRIVER Ancillary Procedure [facility] [address] [place] [address] 8th [place] [address] [place] [address] SSS (sick sinus syndrome) (CMS/HCC) (HCC) (Primary Dx); Fitting or adjustment of cardiac pacemaker 11/17/2024 Orders Only [facility] Scanning, Provider 11/10/2024 3:00 PM ROUTE DRIVER Ancillary Procedure [facility] [place] [facility] [address] [place] [address] Acute diastolic heart failure (CMS/HCC) (HCC) 11/10/2024 Telephone [facility] [address] [facility] [address] [place] [address] Luca Medrano MD [facility] 11/05/2024 10:00 AM ROUTE DRIVER - 11/05/2024 11:59 PM ROUTE DRIVER Hospital Encounter [facility] [address] [place] [address] ESRD (end stage renal disease) (CMS/HCC) (HCC) Discharge Disposition: Discharge to home or self care 11/05/2024 Orders Only [facility] [address] [facility] 8th [place] [address] [place] [address] Luca Medrano MD 11/04/2024 11:30 AM ROUTE DRIVER Office Visit [facility] [address] [facility] [address] [place] [address] Luca Medrano MD Acute diastolic heart failure (CMS/HCC) (HCC) (Primary Dx); Chronic systolic heart failure (CMS/HCC) (HCC); Coronary artery disease involving [place] coronary artery of [place] heart with angina pectoris (HCC) 09/23/2024 Orders Only [facility] [address] [facility] [address] [id number] [place] [address] Tami Flores, RN ESRD (end stage renal disease) (CMS/HCC) (HCC) (Primary Dx) 09/20/2024 10:00 AM ROUTE DRIVER - 09/20/2024 11:59 PM ROUTE DRIVER Hospital Encounter [facility] [address] [place] [address] ESRD (end stage renal disease) (CMS/HCC) (HCC) Discharge Disposition: Discharge to home or self care 09/11/2024 Telephone [facility] [address] [facility] [address] [id number] [place] [address] Mariann Bobo 09/10/2024 Telephone [facility] [address] [facility] [address] [id number] [place] [address] Mariann Bobo from Last 3 Months Immunizations Name Administration Dates Next Due Hep B Vaccine 04/30/2022,03/21/2022,02/19/2022 Influenza, Split 10/21/2017 Surgical History Surgery Date Site/Laterality Comments 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 CABG x2 (LAD and T graft to RCA HYSTERECTOMY BRONCHOSCOPY 02/27/2019 CORONARY ARTERY BYPASS GRAFT 01/19/2019 - 02/17/2019 2 vessel and AVR CARDIAC PACEMAKER PLACEMENT 04/20/2019 - 05/20/2019 SECTION 10/21/2000 - 10/20/2001 PERITONEAL CATHETER INSERTION 11/21/2021 PERICARDIOCENTESIS OTHER SURGICAL HISTORY 10/21/2015 - 10/20/2016 resection of thyroid mass, implant to vocal cords CENTRAL LINE PLACEMENT > 5 YEARS 05/20/2024 N/A Medical History Medical History Date Comments Hypertension Essential Thyroid mass s/p resection Coronary artery disease invo lving [place] heart 02/07/2019 Added automatically from req uest for surgery [id number] (LAD, LCA) Volume overload 02/14/2019 Leukocytosis 02/21/2019 Pleural effusion 02/2019 Status post lef t thoracostomy 02/27/2019 Hypothyroidism 01/2019 Postoperative Anemia Personal history of other me dical treatment History of combined restrictive/obstructive lung disease, A-fib ([facility] ([facility]) 01/2019 Postoperat servando paroxysmal A. 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[facility]) Spinal stenosis Polycystic kidney disease ESRD on peritoneal dialysis ([facility]) ([facility]) Heart murmur CA (myocardial infarction) ([facility]) CHF (congestive heart failur e) ([facility] ([facility]) Nausea 05/10/2019 Aortic valve insufficiency, acquired 05/19/2024 Family History Medical History Relation Name Comments Heart attack Father Family history of myocardial infarction - (Added by TW Conv) Polycystic kidney disease Maternal Grandmother Cervical cancer Mother Polycystic kidney disease Mother Anesthesia problems Neg Hx Relation Name Status Comments Father (Age 57) Maternal Grandmother Mother Social History Tobacco Use Types Packs/Day Years Used Date Smoking Tobacco: Former Cigarettes 1 20 0 04/01/1992 - 04/01/2012 Smokeless Tobacco: Never Tobacco Cessation:Counseling Given: Not Answered Alcohol Use Standard Drinks/Week Comments Yes 0 (1 standard drink = 0.6 oz pur e alcohol) occasional AUDIT-C Answer Date Recorded Q1: How often do you have a drink containing alcohol? Never 11/19/2024 Q2: How many drinks containi ng alcohol do you have on a typical day when you are drinking? Patient does not drink Q3: How often do you have si x or more drinks on one occasion? Never 11/19/2024 Personal Safety Answer Date Recorded Have you ever been in or are you currently in a harmful physical or emotional relationship or is someone making you feel afraid or unsafe? Denies 11/19/2024 Comments No Sex and Gender Information Value Date Recorded Sex Assigned at Not on file Legal Sex Female 4:06 AM ROUTE DRIVER Gender Identity Female 01/16/2024 11:18 AM CDT Sexual Orientation Straight 01/16/2024 11 :18 AM CDT Obstetrics History Comments Status Post Hysterectomy Last Filed Vital Signs Vital Sign Reading Time Taken Comments Blood Pressure 130/75 11/19/2024 7:05 PM ROUTE DRIVER Pulse 71 11/19/2024 7:05 PM ROUTE DRIVER Temperature 36.6 C (97.9 F) 11/19/2024 11:25 AM ROUTE DRIVER Respiratory Rate 21 11/19/2024 7:05 PM ROUTE DRIVER Oxygen Saturation 94% 11/19/2024 7:05 PM ROUTE DRIVER Inhaled Oxygen Concentration - - Weight 52.8 kg (116 lb 6.5 oz) 11/19/2024 11:25 AM ROUTE DRIVER Height 162.6 cm (5' 4 ) 11/19/2024 11:25 AM ROUTE DRIVER Body Mass Index 19.98 11/19/2024 11:25 AM ROUTE DRIVER Plan of Treatment Scheduled Procedures Name Priority Associated Diagnoses Date/Ti me TRANSPLANT KIDNEY ESRD (end stage renal disease) (CMS/HCC) (HCC) Health Maintenance Due Date Last Done Comments Breast Cancer Screening-Mammogram 1970 Colon Cancer Screening-Colonoscopy 1970 Depression Screening 1971 Pneumococcal vaccine <65 (1 of 2 - PCV) 1977 DTaP/Tdap/Td Vaccine (1 - Tdap) 1982 Regular Well Visit/Exam 18-64 1989 Lung Cancer Screening 2021 Zoster Vaccine (1 of 2) 2021 Influenza Vaccine (#1) 2024 10/21/2017 Hepatitis C Screening Completed 03/06/2023, 021 Medical Devices Implanted Type Area Layer Off Device Identifier Shelf Expiration Date Model / Serial / Lot Angio-Seal Evolution 6fr Vascular Closure [id number] - [id number] - [id number] Implanted:Qty: 1 on 03/09/2022 by Luca Medrano MD at [facility] Collagen Right: Femoral Terumo Medical Pam 09/19/2022 [id number] / [id number] / [id number] Terumo [employer] Pam Angio-Seal Vip 6fr Closere Device [id number] - [id number] - [id number] Implanted:Qty: 1 on 07/24/2022 by Luca Medrano MD at [facility] Collagen [employer] Pam 03/20/2023 [id number] / [id number] / [id number] Terumo [employer] Pam Angio-Seal Vip 6fr Closere Device [id number] - [id number] - [id number] Implanted:Qty: 1 on 05/21/2024 at [facility] Collagen Right: Common Femoral Artery [employer]o [employer] Pam 01/09/2025 [id number] / [id number] / [id number] Terumo Medical Pam Angio-Seal Vip Bondek-Plus 8fr .038in 70cm Hemostatic Latex Free 768730 - [id number] - [id number] Implanted:Qty: 1 on 05/21/2024 by Felipe Gerber MD at [facility] Collagen Right: Common Femoral Artery Ter[employer]o Medical Pam 01/06/2025 [id number] / [id number] / [id number] Medtronic Cardiac Rhythm Mgmt 5076-52 Capsurefix Novus 6.2fr 2mm 52cm Bipolar Screw In Implantable Latex Free - [id number] - [id number] Implanted:Qty: 1 on 05/15/2019 by Lane Ramos MD PhD at [facility] Lead Medtronic Inc 03/11/2021 5076-52 / [id number] / Medtronic Cardiac Rhythm Mgmt 5076-45 Capsurefix Novus 6.2fr 2mm 45cm Bipolar Screw In Implantable - [id number] - [id number] Implanted:Qty: 1 on 05/15/2019 by Lane Ramos MD PhD at [facility] Lead Medtronic Inc 03/30/2021 5076-45 / [id number] / Allovue [id number] Linear 7.5fr 6in Insertion Kit Automotive Engineering Technician Introducer Sheath - [id number] Implanted:Qty: 1 on 02/10/2019 by Luca Medrano MD at [facility] Other - see comments Allovue [id number] -[id number] / / Description:IABP Medtronic Inc [id number] [place] Curl Cath Beta-Cap Holden 15fr 57cm 2 Cuff Clamp Adapter - [id number] - [id number] Implanted:Qty: 1 on 11/21/2021 by Carlos Kamara MD at [facility] Other - see comments N/A: Abdomen Medtronic Inc 11/30/2022 8811-31 3015 / 0 / [id number] Medtronic Cardiac Rhythm Mgmt W1dr01 [place] Wirelessly Pacemaker Cardiac - [id number] - [id number] Implanted:Qty: 1 on 05/15/2019 by Lane Ramos MD PhD at [facility] Pacemaker Medtronic Inc [id number] 09/17/2020 W1DR01 / [id number] / Jamil Lifesciences Valve Aortic Trnscath Brown 3 Ultra Resilia 20mm [id number] - [id number] - [id number] Implanted:Qty: 1 on 05/21/2024 by Felipe Gerber MD at [facility] Prosthetic Valve N/A: Aortic Valve Jamil Lif[employer]iences 02/27/2027 [id number] 20A / [id number] / Medtronic Inc Resolute [place] 4mm 2.1-2.7fr 12mm 140cm Rapid Exchange Radiopaque [id number] - [id number] - [id number] Implanted:Qty: 1 on 03/09/2022 by Luca Medrano MD at [facility] Stent Left: Coronary Medtronic Inc 12/06/2022 [id number] / [id number] / [id number] Description:LAD Biotronik Inc Stent Coronary De Rx Cocr Ors Msn 4.0x15mm 739144 - [id number] - [id number] Implanted:Qty: 1 on 07/24/2022 by Luca Medrano MD at [facility] Stent [employer]otronik Inc 09/05/2023 [id number] / [id number] / [id number] Medtronic [facility] Surgery 4.0 X 15mm [place] Rx Coronary Stent [id number] - [id number] - [id number] Implanted:Qty: 1 on 11/19/2024 by Luca Medrano MD at [facility] Stent N/A: Saphenous Vein Graft Medtronic Card Vas Surgery 05/05/2027 [id number] / [id number] / [id number] Painter V[facility] System Closure Repair Femoral Artery Suture Mediated Perclose Prostyle 59618-54 - [id number] - [id number] Implanted:Qty: 1 on 05/21/2024 by Felipe Gerber MD at [facility] Vascular Closure Device Left: Common Femoral Artery Painter Vascular 02/17/2026 94072-8 3 / [id number] / [id number] Ter[employer]o [employer] Pam Angio-Seal Vip 6fr Closere Device [id number] - [id number] - [id number] Implanted:Qty: 1 on 11/19/2024 by Luca Medrano MD at [facility] Vascular Closure Device N/A: Saphenous Vein Graft Ter[employer] Pam 04/29/2025 [id number] / [id number] / [id number] Sotelo Intellecap Pam [id number] Supple Ronna-Guard Blanchard Processing 4x4cm Patch Cardiovascular - [id number] - [id number] Implanted:Qty: 1 on 02/11/2019 by Christopher Holman MD at [facility] N/A: Chest [employer]feng [employer] Pam 06/03/2023 [id number] / 3211-04 0010 / [id number] Jamil Lifesciences [id number] Certitude Brown 3 Atrion 18fr Transcatheter Introducer Crimper - [id number] - [id number] Implanted:Qty: 1 on 02/11/2019 by Christopher Holman MD at [facility] N/A: Heart Jamil [employer]iences [id number] / [id number] / Medtronic Inc [id number] [place] Pier Curl Cath Beta-Cap Holden 15fr 57cm 2 Cuff Clamp Adapter - [id number] Implanted:Qty: 1 on 12/27/2021 by Margarita Montoya MD at [facility] N/A: Abdomen Medtronic Inc 10/14/2023 8811-31 3015 / / Procedures Procedure Name Priority Date/Time Associated Diagnosis Comments EGFR Routine 11/19/2024 6:00 PM ROUTE DRIVER DIFFERENTIAL AUTO Routine 11/19/2024 6:0 0 PM ROUTE DRIVER CBC WITH AUTO DIFFERENTIAL Routine 11/19/2024 6:00 PM ROUTE DRIVER BASIC METABOLIC PANEL Routine 11/19/2024 6:00 PM ROUTE DRIVER POCT ACTIVATED CLOTTING TIME, LOW RANGE Routine 11/19/2024 4:42 PM ROUTE DRIVER POCT ACTIVATED CLOTTING TIME, LOW RANGE Routine 11/19/2024 3:23 PM ROUTE DRIVER LEFT HEART CATHETERIZATION WITH CORONARY ANGIOGRAPHY AND WITH AND WITHOUT LEFT VENTRICULOGRAM Routine 11/19/2024 2:50 PM ROUTE DRIVER Chest pain, unspecified type POCT ACTIVATED CLOTTING TIME, LOW RANGE Routine 11/19/2024 2:49 PM ROUTE DRIVER POCT ACTIVATED CLOTTING TIME, LOW RANGE Routine 11/19/2024 2:30 PM ROUTE DRIVER POCT ACTIVATED CLOTTING TIME, LOW RANGE Routine 11/19/2024 2:01 PM ROUTE DRIVER TYPE AND SCREEN Timed 11/19/2024 2:01 PM ROUTE DRIVER POCT ACTIVATED CLOTTING TIME, LOW RANGE Routine 11/19/2024 1:53 PM ROUTE DRIVER POCT ACTIVATED CLOTTING TIME, LOW RANGE Routine 11/19/2024 1:49 PM ROUTE DRIVER POCT OXYHEMOGLOBIN - DEVICE Routine 11/19/2024 1:27 PM ROUTE DRIVER POCT OXYHEMOGLOBIN - DEVICE Routine 11/19/2024 1:26 PM ROUTE DRIVER POCT OXYHEMOGLOBIN - DEVICE Routine 11/19/2024 1:26 PM ROUTE DRIVER POC BLOOD GAS AND CHEMISTRIES, ARTERIAL Routine 11/19/2024 11:45 AM ROUTE DRIVER ECG 12-LEAD Routine 11/19/2024 11:16 AM ROUTE DRIVER SCAN - LABS 11/17/2024 CBC WITH AUTO DIFFERENTIAL Routine 11/16/2024 1:57 PM ROUTE DRIVER S/P TAVR (transcatheter aortic valve replacement) Chest pain, unspecified type BASIC METABOLIC PANEL Routine 11/16/2024 1:57 PM ROUTE DRIVER S/P TAVR (transcatheter aortic valve replacement) Chest pain, unspecified type TRANSTHORACIC ECHO (TTE) COMPLETE W DOPPLER/CF W CONTRAST Routine 11/10/2024 4:05 PM ROUTE DRIVER Acute diastolic heart failure (CMS/HCC) (HCC) HLA ANTIBODY SCREEN BY PRA OR SAB PER SCHEDULE (CLASS I AND CLASS II) Routine 11/05/2024 10:00 AM ROUTE DRIVER ESRD (end stage renal disease) (CMS/HCC) (HCC) HLA ANTIBODY SCREEN - SAB (CLASS I AND CLASS II) Routine 09/20/2024 10:00 AM ROUTE DRIVER ESRD (end stage renal disease) (CMS/HCC) (HCC) HLA ANTIBODY SCREEN BY PRA OR SAB PER SCHEDULE (CLASS I AND CLASS II) Routine 09/20/2024 10:00 AM ROUTE DRIVER ESRD (end stage renal disease) (CMS/HCC) (HCC) HEPATITIS C ANTIBODY Routine 03/06/2023 10:19 AM CDT ESRD (end stage renal disease) (CMS/HCC) (HCC) from Last 3 Months or Most Recently Relevant to Health Maintenance Results * (ABNORMAL) eGFR (11/19/2024 6:00 PM ROUTE DRIVER) eGFR 3(L) >=60 mL/min/1. 73 m2 Comment: Interpretive Data Reference Interval Normal >/= 90 mL/min/1.73m2 Mildly decreased* 60 - 89 mL/min/1.73m2 Mildly to moderately decreased 45 - 59 mL/min/1.73m2 Moderately to severely decreased 30 - 44 mL/min/1.73m2 Severely decreased 15 - 29 mL/min/1.73m2 Kidney Failure < 15 mL/min/1.73m2 *Relative to young adult level Estimated glomerular filtration rate is determined by the 2020 CKD-EPI equation recommended by the National Kidney Foundation (A Unifying Approach to GFR Estimation: Recommendations of the NKF-ASK Task Force on Reassessing the Inclusion of Race in Diagnosing Kidney Disease, JASN 2020). The CKD-EPI equation should not be used for patients with unstable renal function and has not been validated in children and those over 70. Current interpretive data was last reviewed 2021. Blood 11/19/2024 6:00 PM ROUTE DRIVER 11/19/2024 6:10 PM ROUTE DRIVER us Luca Medrano MD LAB BLOOD ORDERABLES Final R esult NONAXTI [facility] Department [place] [address] * (ABNORMAL) Differential, auto (11/19/2024 6:00 PM ROUTE DRIVER) Neutrophil abs 6.5 1.5 - 6.5 K/cumm Imm gran abs 0.0 0.0 - 0.1 K/cumm [facility] Lymphocyte abs 0.5(L) 0.8 - 3.3 K/cumm [facility] Monocyte abs 0.3 0.2 - 0.8 K/cumm [facility] Eosinophil abs 0.1 0.0 - 0.5 K/cumm [facility] Basophil abs 0.0 0.0 - 0.1 K/cumm [facility] Neutrophil pct 87.7 % [facility] Comment: Interpretive Data Percent cell count reference ranges are not reported, since discordance with absolute values may lead to misinterpretation of CBC data. Current Interpretive Data was last revised on 2018. Imm gran pct 0.3 % [facility] Comment: Interpretive Data Percent cell count reference ranges are not reported, since discordance with absolute values may lead to misinterpretation of CBC data. Current Interpretive Data was last revised on 2018. Lymphocyte pct 6.8 % [facility] Comment: Interpretive Data Percent cell count reference ranges are not reported, since discordance with absolute values may lead to misinterpretation of CBC data. Current Interpretive Data was last revised on 2018. Monocyte pct 3.4 % [facility] Comment: Interpretive Data Percent cell count reference ranges are not reported, since discordance with absolute values may lead to misinterpretation of CBC data. Current Interpretive Data was last revised on 2018. Eosinophil pct 1.5 % [facility] Comment: Interpretive Data Percent cell count reference ranges are not reported, since discordance with absolute values may lead to misinterpretation of CBC data. Current Interpretive Data was last revised on 2018. Basophil pct 0.3 % [facility] Comment: Interpretive Data Percent cell count reference ranges are not reported, since discordance with absolute values may lead to misinterpretation of CBC data. Current Interpretive Data was last revised on 2018. Blood 11/19/2024 6:00 PM ROUTE DRIVER 11/19/2024 6:04 PM ROUTE DRIVER us Luca Medrano MD LAB BLOOD ORDERABLES Final R esult Performing Organization Address City/[facility]/ZIP Co de Phone Number [facility] Department [place] [address] * (ABNORMAL) CBC with auto differential (11/19/2024 6:00 PM ROUTE DRIVER) [facility] WBC 7.4 3.8 - 9.9 K/cumm Hgb 11.6(L) 11.9 - 15.5 g/dL [facility] Hct 36.7 35.6 - 45.5 % [facility] Plt 150 150 - 400 K/cumm [facility] MPV 10.6 9.1 - 12.3 fL [facility] RBC 4.22 3.90 - 5.20 M/cumm [facility] MCV 87.0 81.3 - 96.4 fL [facility] MCH 27.5 27.1 - 33.3 pg [facility] MCHC 31.6(L) 32.3 - 35.7 g/dL [facility] RDW CV 14.6 11.1 - 14.9 % [facility] RDW SD 46.1 35.7 - 48.1 fL [facility] NRBC abs 0.00 0.00 - 0.01 K/cumm [facility] Blood 11/19/2024 6:00 PM ROUTE DRIVER 11/19/2024 6:04 PM ROUTE DRIVER us Luca Medrano MD LAB BLOOD ORDERABLES Final R esult [facility] Department [place] [address] * (ABNORMAL) Basic metabolic panel (11/19/2024 6:00 PM ROUTE DRIVER) Pathologist [facility] Sodium 130(L) 135 - 145 mmol/L Potassium, pl 4.3 3.3 - 4.9 mmol/L [facility] Chloride 90(L) 97 - 110 mmol/L [facility] CO2 23 22 - 32 mmol/L [facility] Anion gap 17(H) 2 - 15 mmol/L [facility] BUN 57(H) 6 - 25 mg/dL [facility] Creatinine 13.87(H) 0.60 - 1.10 mg/dL [facility] Glucose 150 70 - 199 mg/dL [facility] Comment: Interpretive Data Fasting glucose >/= 126 mg/dl is diagnostic for diabetes. Fasting is defined as no caloric intake for at least 8 hours. Fasting glucose between 100 mg/dl to 125 mg/dl is diagnostic of prediabetes. In a patient with classic symptoms of hyperglycemia or hyperglycemic crisis, a random glucose >/= 200 mg/dl is diagnostic for diabetes. In the absence of unequivocal hyperglycemia, results should be confirmed by repeat testing. The classification and Diagnosis of Diabetes Diabetes Care 2021; 46: S19-S40. Current interpretive data was last revised 2022. Calcium 6.9(L) 8.5 - 10.3 mg/dL [facility] Blood 11/19/2024 6:00 PM ROUTE DRIVER 11/19/2024 6:04 PM ROUTE DRIVER Luca Medrano MD LAB BLOOD ORDERABLES Final R esult Performing Organization Address City/[facility]/ZIP Co de Phone Number [facility] [place] [address] * (ABNORMAL) POCT Activated clotting time, low range (11/19/2024 4:42 PM ROUTE DRIVER) ACT 171(H) 123 - 168 sec POC Performer [id number] [facility] POC Device Number [id number] [facility] Blood 11/19/2024 4:42 PM ROUTE DRIVER 11/19/2024 4:42 PM ROUTE DRIVER Luca Medrano MD LAB POCT ORDERABLES - DEVICE Final Result Performing Organization Address City/[facility]/ZIP Co de Phone Number [facility] [place] [address] * (ABNORMAL) POCT Activated clotting time, low range (11/19/2024 3:23 PM ROUTE DRIVER) ACT 266(H) 123 - 168 sec POC Performer [id number] [facility] POC Device Number [id number] [facility] Blood 11/19/2024 3:23 PM ROUTE DRIVER 11/19/2024 3:23 PM ROUTE DRIVER us Luca Medrano MD LAB POCT ORDERABLES - DEVICE Final Result [facility] Department [place] [address] * LEFT HEART CATHETERIZATION WITH CORONARY ANGIOGRAPHY AND WITH AND WITHOUT LEFT VENTRICULOGRAM (11/19/2024 2:50 PM ROUTE DRIVER) Anatomical Region Laterality Modality X-Ray Angiograph y Impressions 11/19/2024 4:18 PM ROUTE DRIVER Very severe stenosis of the vein graft to the LAD status post laser atherectomy drug-eluting stent placement excellent result Severe narrowing of the ostial left main with a calcified nodule compromising a circumflex Pulmonary hypertension with marginal cardiac output Right common femoral artery Angio-Seal and manual compression THERAPEUTIC RECOMMENDATIONS: Continue aggressive medical therapy and risk factor modification Continue aspirin and Plavix for minimum of 1 year's time longer as tolerated Continue medical management and if the patient has marked improvement in her symptoms we will continue medical management of the ostial left main. If she continues to feel poorly we will attempt intervention again. I would suggest a [place] 1 0 guiding catheter and consideration for shockwave versus atherectomy. I was present during the entire procedure and personally dictated or confirmed the above report. Luca Medrano MD Narrative 11/19/2024 4:18 PM ROUTE DRIVER Procedure: CORONARY ANGIOGRAM / RIGHT HEART CATHETERIZATION/percutaneous coronary intervention Patient: Estuardo Copeland is a 54 y.o. female : 1970 MR number: [id number] Date of Service: 11/19/2024 Water Taxi Driver: Luca Medrano MD Fellow: Josesito Pabon MD Referring physician: No ref. provider found INDICATION: CHF/Dyspnea NYHA Class 3 PATIENT CLINICAL PROFILE: Estuardo Copeland is a 54 y.o. female with a history of Coronary artery disease status post coronary bypass grafting and PCI to her graft to her LAD, aortic valve disease status post aortic valve replacement with recent transcatheter valve replacement who presents for progressive shortness of breath. Patient has been feeling quite tired and short of breath despite an excellent valve result. PROCEDURE: The risks, benefits and alternatives of the procedures and moderate sedation were explained to the patient and informed consent was obtained. The patient was brought to the labor expediter and placed on the table Bilateral groins were prepped and draped in the usual sterile fashion. The right femoral artery site and right venous site was infiltrated with 2% lidocaine. I provided direct face to face monitoring of intravenous conscious sedation which was administered using Fentanyl and Versed by an independently certified nurse for a total of 120 minutes. The artery was accessed using a Micropuncture kit and the modified Seldinger technique with a Micro needle, a wire was threaded into the vessel, and a 6Fr Sheath was advanced over the wire into the vessel. The vein was accessed using a Micropuncture kit and the modified Seldinger technique with a Micro needle, a wire was threaded into the vessel, and a 7Fr Sheath was advanced over the wire into the vessel. Left Coronary Artery Angiogram was performed using a 5 Fr JL3.5Catheter. Saphenous vein graft to the right coronary artery angiogram performed using a 6 Afghan JR4 catheter Right heart catheterization preformed with TD [place] Percutaneous coronary intervention performed on the Proximal saphenous vein graft to the LAD. This was an ACC/AHA Type C. Initial Lesion Length 12mm and final lesion Length 15mm. Initial KAROLINA Flow 3 with visible thrombus present Final KAROLINA Flow 3. Equipment used: 6 3DRC, [employer] IVUS Catheter, scion blue wire, 0.9 mm laser atherectomy catheter, 2 5 x 15 NC emerge balloon, a 3 0 x 12 mm AngioSculpt balloon, 4 0 by 15 NC emerge balloon, 4 0 x 15 resolute drug-eluting stent, 4 5 x 12 mm NC emerge balloon Attempted intervention on the ostial left main equipment used was a 6 Afghan JL 3.5 guiding catheter, she on black wire, 2 5 balloon and IVUS catheter At the end of the procedure, arteriotomy was successfully closed and hemostasis achieved by a Angio-Seal and manual compression Patient was transferred to the holding area in stable condition. There were no apparent complications. RESULTS: Hemodynamics: RA Pressure: 15/29 mean 15 with a ventricularized waveform consistent with significant TR RV Presure: 58/12mmHG PA Pressure: 54/16 mean 31mmHG PCWP mean: 14mmHG CO/CI: 3.18/2.04 AO saturation 91% Mixed venous saturation 56% Coronary Arteriography: Left main coronary: Left main coronary artery is a small vessel that supplies just the circumflex. There is a significant 70% calcified nodule at the ostium. This is new compared to previous angiogram Left Anterior Decending: Lad is 100% occluded in its proximal segment and fed by a vein Left Circumflex: Circumflex is a large vessel supplies a large posterior descending artery and several obtuse marginal vessels. There are no other significant narrowings present. Right Coronary Artery: Right coronary artery was not injected Graft Angiography: Svg-LAD: The saphenous vein graft was difficult to engage but did have a high-grade 99% lesion with visible thrombus present. This was clearly different from her prior angiogram Percutaneous coronary intervention performed on the vein graft to the LAD and attempted intervention on the ostial left main After the diagnostic portion the case was felt the culprit for the patient's symptoms clearly are high-grade vein graft to her LAD. We administered heparin to obtain ACT greater than 300. We took up a 6 Afghan 3D RC that sat reasonably well in the ostium. We placed a wire easily into the distal LAD. Next we took a 0.9 mm laser atherectomy catheter and performed laser atherectomy starting at 45/25 and increasing up to 80 80. This resulted in a marked improvement in luminal area and resolution of the thrombus. Next we took a 2 5 balloon and pre-dilated. We then took our IVUS catheter down that showed significant underexpansion of the stents with some narrowing. We are unable to pass IVUS catheter past the midportion. We then took a 3-0 AngioSculpt and pre-dilated the lesion up to 20 atmospheres. We are then able to pass the IVUS catheter down easily that showed a slight underexpanded stents at the turn. It looked good distally and at the ostium. At this point we took a 4 0 x 12 NC emerge balloon and post dilated it up to 20 atmospheres. Next we took our 4 0 resolute stent down and positioned carefully at the ostium. It was deployed at 20 atmospheres. We repeated our IVUS catheter run that showed excellent stent apposition at the distal edge but some underexpansion in the proximal portion. We then took a 4 5 x 12 balloon and up to 18 atmospheres saw release and marked expansion of the stent. Final angiographic views showed excellent result with KAROLINA 3 flow down all side branches no evidence of dissection or perforation. We then took our 6 Afghan JL 3.5 guiding catheter attempted to intubate the left main. Unfortunately given her small aorta in valve we are unable to get the guide in good position. We did place a wire with great difficulty into the distal circumflex. We attempted to deliver IVUS but it would not pass due to a calcified nodule at the ostium. We attempted delivered 2 5 balloon and knock the entire system out. At this point we felt that we had performed enough worked given her severe lesion in her vein graft. We elected to terminate the procedure to return for further intervention as needed. We then turned our attention to the right femoral artery and placed a 6 Afghan Angio-Seal. Manual compression was performed on the venous sheath. COMPLICATIONS: None DIAGNOSTIC us Luca Medrano MD CV CARDIAC CATH PROCEDURES F inal Result * (ABNORMAL) POCT Activated clotting time, low range (11/19/2024 2:49 PM ROUTE DRIVER) 3dim ACT 260(H) 123 - 168 sec POC Performer [id number] [facility] POC Device [facility] [id number] [facility] Blood 11/19/2024 2:49 PM ROUTE DRIVER 11/19/2024 2:49 PM ROUTE DRIVER us Luca Medrano MD LAB POCT ORDERABLES - DEVICE Final Result [facility] [facility] [place] [address] * (ABNORMAL) POCT Activated clotting time, low range (11/19/2024 2:30 PM ROUTE DRIVER) ACT 385(H) 123 - 168 sec POC Performer [id number] [facility] POC Device Number [id number] [facility] Blood 11/19/2024 2:30 PM ROUTE DRIVER 11/19/2024 2:30 PM ROUTE DRIVER Luca Medrano MD LAB POCT ORDERABLES - DEVICE Final Result Performing Organization Address [facility] de Phone Number [facility] [place] [address] * (ABNORMAL) POCT Activated clotting time, low range (11/19/2024 2:01 PM ROUTE DRIVER) ACT >400(H) 123 - 168 sec POC Performer [id number] [facility] POC Device Number [id number] [facility] Blood 11/19/2024 2:01 PM ROUTE DRIVER 11/19/2024 2:01 PM ROUTE DRIVER Luca Medrano MD LAB POCT ORDERABLES - DEVICE Final Result Performing Organization Address [facility] de Phone Number [facility] [place] [address] * Type and screen (11/19/2024 2:01 PM ROUTE DRIVER) Pathologist [facility] ABO Rh B Positive Jorge A, indirect Negative [facility] Blood 11/19/2024 2:01 PM ROUTE DRIVER 11/19/2024 2:14 PM ROUTE DRIVER Narrative [facility] - 11/19/2024 3:08 PM ROUTE DRIVER Has the patient had Daratumumab or Isatuximab in the past 6 months?->Unknown Luca Medrano MD LAB BLOOD BANK TEST ORDERABL ES Final Result Performing Organization Address [facility] Co de Phone Number [facility] [place] [address] * (ABNORMAL) POCT Activated clotting time, low range (11/19/2024 1:53 PM ROUTE DRIVER) Pathologist [facility] ACT >400(H) 123 - 168 sec POC Performer [id number] [facility] POC Device Number [id number] [facility] Blood 11/19/2024 1:53 PM ROUTE DRIVER 11/19/2024 1:53 PM ROUTE DRIVER us Luca Medrano MD LAB POCT ORDERABLES - DEVICE Final Result Performing Organization Address [facility] de Phone Number [facility] [place] [address] * (ABNORMAL) POCT Activated clotting time, low range (11/19/2024 1:49 PM ROUTE DRIVER) [facility] ACT 78(L) 123 - 168 sec POC Performer [id number] [facility] POC Device Number [id number] [facility] Blood 11/19/2024 1:49 PM ROUTE DRIVER 11/19/2024 1:49 PM ROUTE DRIVER Luca Medrano MD LAB POCT ORDERABLES - DEVICE Final Result Performing Organization Address [facility] de Phone Number [facility] [place] [address] * (ABNORMAL) POCT oxyhemoglobin (11/19/2024 1:27 PM ROUTE DRIVER) [facility] CORPORATE SAFETY COORDINATOR Oxyhemoglobin 91.6 >=65.0 % CORPORATE SAFETY COORDINATOR Hemoglobin 11.2(L) 11.9 - 15.5 g/dL [facility] CORPORATE SAFETY COORDINATOR O2 content 14.3(L) 15.0 - 22.0 Vol % [facility] Anatomic Site aPOC Aorta [facility] Blood 11/19/2024 1:27 PM ROUTE DRIVER 11/19/2024 1:27 PM ROUTE DRIVER Luca Medrano MD LAB POCT ORDERABLES - DEVICE Final Result Performing Organization Address [facility] de Phone Number CERNER [facility] [place] [address] * (ABNORMAL) POCT oxyhemoglobin (11/19/2024 1:26 PM ROUTE DRIVER) [facility] CORPORATE SAFETY COORDINATOR Oxyhemoglobin 56.2(L) >=65.0 % CORPORATE SAFETY COORDINATOR Hemoglobin 11.0(L) 11.9 - 15.5 g/dL [facility] CORPORATE SAFETY COORDINATOR O2 content 8.6(L) 15.0 - 22.0 Vol % [facility] Anatomic Site aPOC Pulm Artery [facility] Blood 11/19/2024 1:26 PM ROUTE DRIVER 11/19/2024 1:26 PM ROUTE DRIVER us Luca Medrano MD LAB POCT ORDERABLES - DEVICE Final Result Performing Organization Address City[facility]/[place] [address] * (ABNORMAL) POCT oxyhemoglobin (11/19/2024 1:26 PM ROUTE DRIVER) [facility] CORPORATE SAFETY COORDINATOR Oxyhemoglobin 56.6(L) >=65.0 % CORPORATE SAFETY COORDINATOR Hemoglobin 10.9(L) 11.9 - 15.5 g/dL [facility] CORPORATE SAFETY COORDINATOR O2 content 8.6(L) 15.0 - 22.0 Vol % [facility] Anatomic Site aPOC Pulm Artery [facility] Blood 11/19/2024 1:26 PM ROUTE DRIVER 11/19/2024 1:26 PM ROUTE DRIVER us Luca Medrano MD LAB POCT ORDERABLES - [place] [address] * POC Blood Gas and Chemistries, Arterial - (11/19/2024 11:45 AM ROUTE DRIVER) [facility] K POC 3.7 3.3 - 4.9 mmol/L Comment: Interpretive Data Not all point of care methods assess for hemolysis. Confirm with instrument and retest K+ if not consistent with clinical signs and symptoms. Current Interpretive Data was last revised on 2024. Blood 11/19/2024 11:4 5 AM ROUTE DRIVER 11/19/2024 11:45 AM ROUTE DRIVER Result [facility] Luca Medrano MD LAB POCT ORDERABLES - DEVICE Final Result Performing Organization Address [facility] de Phone Number [facility] Department [place] [address] * ECG 12 lead (11/19/2024 11:16 AM ROUTE DRIVER) Ventricular Rate EKG/Min 90 BPM [facility] QRS-Interval (MSEC) 84 ms [facility] QT-Interval (MSEC) 404 ms [facility] QTc 494 ms [facility] R [place] 6 degrees [facility] T [place] 144 degrees [facility] Diagnosis Atrial fibrillation Electronic atrial pacemaker Minimal voltage criteria for LVH, may be normal variant ( Oliverio product ) Septal infarct , age undetermined T wave abnormality, consider lateral ischemia Abnormal ECG Confirmed by HARJINDER HANDY M.D ([id number]) on 11/19/2024 3:59:31 PM [facility] 11/19/2024 11:1 6 AM ROUTE DRIVER 11/19/2024 3:59 PM ROUTE DRIVER Result [facility] Luca Medrano MD ECG ORDERABLES Final Result Performing Organization Address [facility] de Phone Number [facility] * SCAN - LABS (11/17/2024) Provider Scanning Final Result * CBC with auto differential (11/16/2024 1:57 PM ROUTE DRIVER) WBC 7.2 3.4 - 10.8 x10E3/uL [facility] - 01 RBC 4.54 3.77 - 5.28 x10E6/uL [facility] - 01 Hgb 12.8 11.1 - 15.9 g/dL [facility] - 01 Hct 39.3 34.0 - 46.6 % [facility] - 01 MCV 87 79 - 97 fL [facility] - 01 MCH 28.2 26.6 - 33.0 pg [facility] - 01 MCHC 32.6 31.5 - 35.7 g/dL [facility] - 01 Rdw 14.6 11.7 - 15.4 % [facility] - 01 Platelets 171 150 - 450 x10E3/uL [facility] - 01 Neutrophils pct 80 Not Estab. % [facility] - 01 Lymphs pct 11 Not Estab. % [facility] - 01 Monocytes pct 6 Not Estab. % [facility] - 01 Eosinophils pct 3 Not Estab. % [facility] - 01 Basophil pct 0 Not Estab. % [facility] - 01 Neutrophil abs 5.6 1.4 - 7.0 x10E3/uL [facility] - 01 Lymphs (Absolute) 0.8 0.7 - 3.1 x10E3/uL [facility] - 01 Monocyte abs 0.4 0.1 - 0.9 x10E3/uL [facility] - 01 Eosinophils, abs 0.2 0.0 - 0.4 x10E3/uL [facility] - 01 Basophils, abs 0.0 0.0 - 0.2 x10E3/uL [facility] - 01 Immature Granulocytes 0 Not Estab. % [facility] - 01 Immature Grans (Abs) 0.0 0.0 - 0.1 x10E3/uL [facility] - 01 Blood 11/16/2024 1:57 PM ROUTE DRIVER 11/16/2024 Narrative [facility] - 11/17/2024 8:14 AM ROUTE DRIVER Performed at: - [facility] [address] [id number] Chemical [employer] Professor: Marco Antonio Paiz PhD, Phone: [phone] us Luca Medrano MD LAB BLOOD ORDERABLES Final R esult [facility] * (ABNORMAL) Basic metabolic panel (11/16/2024 1:57 PM ROUTE DRIVER) [facility] Glucose 88 70 - 99 mg/dL [facility] - 01 BUN 61(H) 6 - 24 mg/dL [facility] - 01 Creatinine, Serum 13.77(H) 0.57 - 1.00 mg/dL [facility] - 01 Comment:Verified by repeat analysis eGFR 3(L) >59 mL/min/1.7 3 [facility] - 01 BUN/creat ratio 4(L) 9 - 23 [facility] - 01 Sodium 139 134 - 144 mmol/L [facility] - 01 Potassium, sr 3.7 3.5 - 5.2 mmol/L [facility] - 01 Chloride 96 96 - 106 mmol/L [facility] - 01 CO2 22 20 - 29 mmol/L [facility] - 01 Calcium 7.1(L) 8.7 - 10.2 mg/dL [facility] - 01 Blood 11/16/2024 1:57 PM ROUTE DRIVER 11/16/2024 Narrative [facility] - 11/17/2024 12:09 PM ROUTE DRIVER Performed at: [address] [place] [id number] Chemical [employer] Professor: Marco Antonio Paiz PhD, Phone: [phone] us Luca Medrano MD LAB BLOOD ORDERABLES Final R esult [facility] - * TRANSTHORACIC ECHO (TTE) COMPLETE W DOPPLER/CF W CONTRAST (11/10/2024 4:05 PM ROUTE DRIVER) LV EF % CONS SCIMAGE Anatomical Region Laterality Modality Ultrasound 11/10/2024 2:55 PM ROUTE DRIVER Narrative 11/11/2024 9:34 AM ROUTE DRIVER [facility] Cardiac Diagnostic Lab [address], [address] [place] [address] Transthoracic Echocardiographic Report Patient Name: ESTUARDO COPELAND M : 1970 (54y ) Gender: F Study Date: 11/10/2024 02:55:48 PM Ht(Inch): 64 Wt(Lb): 115.08 BSA: 1.54 Geological Engineer: GERA Wells Location: [facility] Order Provider: LUCA MEDRANO Heart Rate: 76 BMI: 19.75 BP: 94/60 Quality: Technically difficult study due to limited acoustic windows. Ref Provider: LUCA MEDRANO PROCEDURES: Echocardiographic Report: ([id number], [id number], [id number]) Transthoracic complete echo with strain imaging and contrast, 2D, spectral and tissue Doppler, color flow Doppler, M- mode. Additional Procedures: ([id number]) 3D echocardiographic imaging from [facility]. Contrast: 0.4 ml Optison Administered, (2.6 ml wasted). INDICATIONS: I50.31 Acute diastolic (congestive) heart failure. MEASUREMENTS: 2D/MM Value Range Doppler Value Range LVIDd 2D 3.44 cm [ 3.80 - 5.20 ] AV Peak Ayden 2.87 m/s [ 1.00 - 1.70 ] LVIDs 2D 2.41 cm [ 2.20 - 3.50 ] AV Peak PG 32.95 IVSd 2D 1.06 cm [ 0.60 - 0.90 ] AV Mean PG 16.00 mmHg LVPWd 2D 0.88 cm [ 0.60 - 0.90 ] AV VTI 60.37 cm LV Thickness Ratio 1.20 [ 1.50 - 3.00 ] LVOT Peak Ayden 1.24 m/s [ 0.70 - 1.10 ] LV FS 2D 29.97 % [ 27.00 - 45.00 ] LVOT Peak PG 6.15 LV Mass 2D 97.59 g LVOT Mean PG 3.13 mmHg LV Mass Index 2D 63.37 g/m2 LVOT VTI 23.68 cm RWT 0.51 LVOT Diam 1.65 cm LV EDV 2D 48.79 ASHOK VTI 0.84 cm2 LV ESV 2D 20.37 ASHOK Vmax 0.92 cm2 EF Teich 2D 58 % [ 54 - 74 ] LVOT/AV VTI 0.39 - Dimensionless index (DVI) LV EDV Index 36.50 ml/m2 AI Peak Ayden 0.02 m/s EDV Mod 2C 53.98 ml [ 41.00 - 133.00 ] AI Peak PG 20.09 mmHg EDV Mod 4C 60.63 ml AI Decel Time 1416.11 sec EDV Mod BP 56.21 ml [ 46.00 - 106.00 ] AI Decel [place] 1.58 m/s2 ESV Mod 2C 14.03 ml AI PHT 410.67 msec ESV Mod 4C 21.21 ml MV E Peak Ayden 0.02 m/s [ 0.60 - 1.30 ] ESV Mod BP 18.60 ml [ 14.00 - 42.00 ] MV A Peak Ayden 0.98 m/s [ 1.00 - 1.20 ] EF Mod 2C 74 % MV E/A 2.16 ratio [ 0.80 - 1.50 ] EF Mod 4C 65 % MV Peak Ayden 0.77 m/s EF Mod BP 67 % [ 54 - 74 ] MV Peak PG 2.37 LV GLS -7.6 % MV Mean PG 0.93 mmHg LA Length 2C 4.10 cm MV VTI 20.89 cm LA Length 4C 5.48 cm MV PHT 100.85 msec [ 20.00 - 100.00 ] LA Volume 2C 34.1 ml MVA PHT 2.18 cm2 LA Volume 4C 31.3 ml MV Decel Time 337.53 msec [ 104.00 - 258.00 ] LA Volume BP 40.90 ml Med E` Ayden 0.03 cm/sec [ 8.00 - 15.00 ] LA Volume Index 26.56 ml/m2 Lat E` Ayden 0.06 cm/sec [ 10.00 - 15.00 ] MV Annulus 2D 1.86 cm Average E/E` 44.44 RV Base Dimen 2D 3.6 cm [ 2.5 - 4.2 ] MR Peak Ayden 0.05 m/s RA Area 13.10 cm/m2 [ 10.00 - 18.00 ] MR Peak PG 0.01 RA Volume 33.52 ml MR Mean PG 84.74 mmHg RA Volume Index 21.77 ml/m2 MV Alias Ayden 0.46 m/s AoR Diam 2D 2.03 cm [ 2.70 - 3.70 ] MR VTI 180.8 cm Ao Root Index 1.32 cm/m2 MR Flow 0.26 ml/sec Asc Ao Diam 2D 1.84 cm MR PISA 0.3 cm Asc Ao Index 1.19 cm/m2 MR EROA 0.0 cm2 PISA Regurgitant Volume 0.0 ml RV S` 0.058 m/s TR Peak Ayden 3.21 m/s [ 1.00 - 2.80 ] TR Peak PG 41.2 PV Peak Ayden 1.06 m/s [ 0.40 - 0.80 ] PV Peak PG 4.49 PI ED PG 3.0 mmHg - FINDINGS: Left Ventricle: The left ventricle cavity is small based on 2D measurements. Normal left ventricular size based on volume index. Concentric LV remodeling. Normal left ventricular systolic function. The Ejection Fraction (Green's) is measured at 67 %. Left ventricular diastolic function is indeterminate in this study due to the presence of mitral stenosis. The average global longitudinal strain rate is abnormal (less negative than -16%). paradoxical septal motion. Right Ventricle: Normal right ventricular size. The ventricular septum is flattened or `D-shaped` in both systole and diastole, consistent with right ventricular volue and pressure overload and significant pulmonary hypertension. Left Atrium: The left atrium is normal in size. Right Atrium: The right atrium is normal in size. Mitral Valve: There is mild mitral valve regurgitation. Moderate mitral stenosis; mean gradient 6-7 mmHg @ HR 68. The mitral valve area by pressure half-time is 2.2 cm2. MV Structure Abnormalities: The peak transmitral gradient is 2.37 mmHg The mean transmitral gradient is 0.93 mmHg Aortic Valve: Mild aortic valve regurgitation. Mild aortic valve stenosis. The peak transaortic gradient is 32.95 mmHg. The mean transaortic gradient is 16 mmHg. The aortic valve area by the continuity equation (using VTI) is 0.84 cm2. The aortic valve area by the continuity equation (using Vmax) is 0.92 cm2. The dimensionless index is 0.39. A bioprosthetic stent-valve is present in the aortic position. Tricuspid Valve: There is moderate to severe tricuspid regurgitation. The estimated right ventricular systolic pressure is 54 mmHg. Pulmonic Valve: Normal appearance of the pulmonic valve leaflets without evidence stenosis. Aorta: The aortic root is normal in size when indexed. The ascending aorta is normal in size when indexed. IVC: The inferior vena cava is dilated. The IVC (inferior vena cava) was >2.1 cm and collapsibility >50%. The RA pressure is estimated to be 8 mmHg. Rhythm: The rhythm during the study was normal sinus rhythm. CONCLUSIONS: 1. The left ventricle cavity is small based on 2D measurements. Normal left ventricular size based on volume index. Concentric LV remodeling. Normal left ventricular systolic function. The Ejection Fraction (Green's) is measured at 67 %. Left ventricular diastolic function is indeterminate in this study due to the presence of mitral stenosis. The average global longitudinal strain rate is abnormal (less negative than - 16%). paradoxical septal motion. 2. Normal right ventricular size. The ventricular septum is flattened or `D- shaped` in both systole and diastole, consistent with right ventricular volue and pressure overload and significant pulmonary hypertension. 3. There is mild mitral valve regurgitation. Moderate mitral stenosis; mean gradient 6-7 mmHg @ HR 68. 4. Mild aortic valve regurgitation. Mild aortic valve stenosis. The peak transaortic gradient is 32.95 mmHg. A Hitesh TAVR 20 mm Brown t3 is present in the aortic position with midly increased gradients (MG 16 mmHg; DI 0.35, AccT ~ 50-60 msec) compared to 06/2024. 5. There is moderate to severe tricuspid regurgitation. The estimated right ventricular systolic pressure is 54 mmHg. 6. The aortic root is normal in size when indexed. ATTESTATION: I have reviewed and interpreted the pertinent images and measurements of this study. I attest to the conclusions in the final report that is provided above. DISCLAIMER: The study images and the final report will be retained in the patient chart by the [facility] for the legally required time period. This chart constitutes the legal record of any testing performed. Electronically Signed By: Silver Levin MD 11/11/2024 9:32:57 AM ROUTE DRIVER Electronically Signed By: Silver Levin MD 11/11/2024 9:32:57 AM ROUTE DRIVER Procedure Note Silver Levin MD - 11/11/2024 [facility] [address] , [address] [place] [address] Transthoracic Echocardiographic Report Patient Name: ESTUARDO COPELAND M : 1970 (54y ) Gender: F Study Date: 11/10/2024 02:55:48 PM Ht(Inch): 64 Wt(Lb): 115.08 BSA: 1.54 Geological Engineer: GERA Wells Location: [facility] Order Provider:LUCA MEDRANO Heart Rate: 76 BMI: 19.75 BP: 94/60 Quality: Technically difficult studydue to limited acoustic windows. Ref Provider: LUCA MEDRANO PROCEDURES: Echocardiographic Report: ([id number], [id number]) Transthoracic completeecho with strain imaging and contrast, 2D, spectral and tissue Doppler, color flow Doppler,M- mode. Additional Procedures: ([id number]) 3D echocardiographic imaging from [email or web address]. Contrast: 0.4 ml Optison Administered, (2.6 ml wasted). INDICATIONS: I50.31 Acute diastolic (congestive) heart failure. MEASUREMENTS: 2D/MM Value Range DopplerValue Range LVIDd 2D 3.44 cm [ 3.80 - 5.20 ] AV Peak Vel2.87 m/s [ 1.00 - 1.70 ] LVIDs 2D 2.41 cm [ 2.20 - 3.50 ] AV Peak PG32.95 IVSd 2D 1.06 cm [ 0.60 - 0.90 ] AV Mean PG16.00 mmHg LVPWd 2D 0.88 cm [ 0.60 - 0.90 ] AV VTI60.37 cm LV Thickness Ratio 1.20 [ 1.50 - 3.00 ] LVOT Peak Vel1.24 m/s [ 0.70 - 1.10 ] LV FS 2D 29.97 % [ 27.00 - 45.00 ] LVOT Peak PG6.15 LV Mass 2D 97.59 g LVOT Mean PG3.13 mmHg LV Mass Index 2D 63.37 g/m2 LVOT VTI23.68 cm RWT 0.51 LVOT Diam1.65 cm LV EDV 2D 48.79 ASHOK VTI0.84 cm2 LV ESV 2D 20.37 ASHOK Vmax0.92 cm2 EF Teich 2D 58 % [ 54 - 74 ] LVOT/AV VTI0.39 - Dimensionless index (DVI) LV EDV Index 36.50 ml/m2 AI Peak Vel0.02 m/s EDV Mod 2C 53.98 ml [ 41.00 - 133.00 ] AI Peak PG20.09 mmHg EDV Mod 4C 60.63 ml AI Decel Swnu0994.11 sec EDV Mod BP 56.21 ml [ 46.00 - 106.00 ] AI Decel Slope1.58 m/s2 ESV Mod 2C 14.03 ml AI WVL408.67 msec ESV Mod 4C 21.21 ml MV E Peak Vel0.02 m/s [ 0.60 - 1.30 ] ESV Mod BP 18.60 ml [ 14.00 - 42.00 ] MV A Peak Vel0.98 m/s [ 1.00 - 1.20 ] EF Mod 2C 74 % MV E/A2.16 ratio [ 0.80 - 1.50 ] EF Mod 4C 65 % MV Peak Vel0.77 m/s EF Mod BP 67 % [ 54 - 74 ] MV Peak PG2.37 LV GLS -7.6 % MV Mean PG0.93 mmHg LA Length 2C 4.10 cm MV VTI20.89 cm LA Length 4C 5.48 cm MV QPJ473.85 msec [ 20.00 - 100.00 ] LA Volume 2C 34.1 ml MVA PHT2.18 cm2 LA Volume 4C 31.3 ml MV Decel Tcsc068.53 msec [ 104.00 - 258.00 ] LA Volume BP 40.90 ml Med E` Vel0.03 cm/sec [ 8.00 - 15.00 ] LA Volume Index 26.56 ml/m2 Lat E` Vel0.06 cm/sec [ 10.00 - 15.00 ] MV Annulus 2D 1.86 cm Average E/E`44.44 RV Base Dimen 2D 3.6 cm [ 2.5 - 4.2 ] MR Peak Vel0.05 m/s RA Area 13.10 cm/m2 [ 10.00 - 18.00 ] MR Peak PG0.01 RA Volume 33.52 ml MR Mean PG84.74 mmHg RA Volume Index 21.77 ml/m2 MV Alias Vel0.46 m/s AoR Diam 2D 2.03 cm [ 2.70 - 3.70 ] MR UUE752.8 cm Ao Root Index 1.32 cm/m2 MR Flow0.26 ml/sec Asc Ao Diam 2D 1.84 cm MR PISA0.3 cm Asc Ao Index 1.19 cm/m2 MR EROA0.0 cm2 PISA Regurgitant Volume 0.0 ml RV S` 0.058 m/s TR Peak Ayden 3.21 m/s [ 1.00 -2.80 ] TR Peak PG 41.2 PV Peak Ayden 1.06 m/s [ 0.40 -0.80 ] PV Peak PG 4.49 PI ED PG 3.0 mmHg - FINDINGS: Left Ventricle: The left ventricle cavity is small based on 2Dmeasurements. Normal left ventricular size based on volume index. Concentric LV remodeling. Normalleft ventricular systolic function. The Ejection Fraction (Green's) is measured at 67 %.Left ventricular diastolic function is indeterminate in this study due to thepresence of mitral stenosis. The average global longitudinal strain rate is abnormal(less negative than -16%). paradoxical septal motion. Right Ventricle: Normal right ventricular size. The ventricular septum isflattened or `D-shaped` in both systole and diastole, consistent with right ventricularvolue and pressure overload and significant pulmonary hypertension. Left Atrium: The left atrium is normal in size. Right Atrium: The right atrium is normal in size. Mitral Valve: There is mild mitral valve regurgitation. Moderate mitralstenosis; mean gradient 6-7 mmHg @ HR 68. The mitral valve area by pressure half-time is2.2 cm2. MV Structure Abnormalities: The peak transmitral gradient is 2.37 mmHg Themean transmitral gradient is 0.93 mmHg Aortic Valve: Mild aortic valve regurgitation. Mild aortic valve stenosis.The peak transaortic gradient is 32.95 mmHg. The mean transaortic gradient is 16mmHg. The aortic valve area by the continuity equation (using VTI) is 0.84 cm2. The aorticvalve area by the continuity equation (using Vmax) is 0.92 cm2. The dimensionless indexis 0.39. A bioprosthetic stent-valve is present in the aortic position. Tricuspid Valve: There is moderate to severe tricuspid regurgitation. Theestimated right ventricular systolic pressure is 54 mmHg. Pulmonic Valve: Normal appearance of the pulmonic valve leaflets withoutevidence stenosis. Aorta: The aortic root is normal in size when indexed. The ascending aortais normal in size when indexed. IVC: The inferior vena cava is dilated. The IVC (inferior vena cava) was>2.1 cm and collapsibility >50%. The RA pressure is estimated to be 8 mmHg. Rhythm: The rhythm during the study was normal sinus rhythm. CONCLUSIONS: 1. The left ventricle cavity is small based on 2D measurements. Normalleft ventricular size based on volume index. Concentric LV remodeling. Normal leftventricular systolic function. The Ejection Fraction (Green's) is measured at 67 %. Leftventricular diastolic function is indeterminate in this study due to the presence ofmitral stenosis. The average global longitudinal strain rate is abnormal (less negativethan - 16%). paradoxical septal motion. 2. Normal right ventricular size. The ventricular septum is flattened or`D- shaped` in both systole and diastole, consistent with right ventricular volue andpressure overload and significant pulmonary hypertension. 3. There is mild mitral valve regurgitation. Moderate mitral stenosis;mean gradient 6-7 mmHg @ HR 68. 4. Mild aortic valve regurgitation. Mild aortic valve stenosis. The peaktransaortic gradient is 32.95 mmHg. A Hitesh TAVR 20 mm Brown t3 is present in theaortic position with midly increased gradients (MG 16 mmHg; DI 0.35, AccT ~ 50-60 msec)compared to 06/2024. 5. There is moderate to severe tricuspid regurgitation. The estimatedright ventricular systolic pressure is 54 mmHg. 6. The aortic root is normal in size when indexed. ATTESTATION: I have reviewed and interpreted the pertinent images and measurements ofthis study. I attest to the conclusions in the final report that is provided above. DISCLAIMER: The study images and the final report will be retained in the patientchart by the Echo Laboratory for the legally required time period. This chart constitutesthe legal record of any testing performed. Electronically Signed By: Silver Levin MD 11/11/2024 9:32:57 AM ROUTE DRIVER Electronically Signed By: Silver Levin MD 11/11/2024 9:32:57 AM ROUTE DRIVER Luca Medrano MD CV ECHO PROCEDURES Final Res ult * HLA Antibody Screen by PRA or SAB per Schedule (Class I and Class II) (11/05/2024 10:00 AM ROUTE DRIVER) Blood 11/05/2024 10:0 0 AM ROUTE DRIVER Narrative [facility] - ROUTE DRIVER Sample received in lab and stored. No testing performed at this time. Salina Hector MD LAB BLOOD ORDERABLES Final Resul t Performing Organization Address [facility] Co de Phone Number [facility] * HLA Antibody Screen by PRA or SAB per Schedule (Class I and Class II) (09/20/2024 10:00 AM ROUTE DRIVER) Blood 09/20/2024 10:0 0 AM ROUTE DRIVER Narrative [facility] - ROUTE DRIVER Sample received in lab. Single Antigen Antibody Screen ordered. Salina Hector MD LAB BLOOD ORDERABLES Final Resul t Performing Organization Address [facility] Co de Phone Number [facility] * HLA Antibody Screen - SAB (Class I and Class II) (09/20/2024 10:00 AM ROUTE DRIVER) Class I Treatment EDTA [facility] Class I Dilution 1:1 [facility] Class I Tested Date 09/23/2024 [facility] Class I Result Positive [facility] Class I CPRA 21 [facility] Class I Increased Risk Cw5, Cw9 [facility] Class I Low Risk A11; B82 [facility] Class II Treatment EDTA [facility] Class II Dilution 1:1 [facility] Class II Tested Date 09/23/2024 [facility] Class II Result Positive [facility] Class II CPRA 16 [facility] Class II Moderate Risk DPB1*01:01 HISTOTRAC Class II Low Risk DQ5; DPB1*01:01, DPB1*03:01 HISTOT[facility]AC 09/20/2024 10:0 0 AM ROUTE DRIVER 09/24/2024 12:48 PM ROUTE DRIVER Narrative HISTOTRAC - 09/24/2024 12:48 PM ROUTE DRIVER Single-antigen HLA antibody screen is performed on serum samples using a method developed and validated by the [facility] HLA laboratory based on an FDA-approved IVD kit (Mobilitrixcreen Single-Antigen, [place], [place], [place]). All patient serum samples are pretreated with EDTA before the screen to prevent complement interference. Additional serum treatments, such as adsorption and DTT treatment, may be performed as indicated. Interpretive comments: Low risk: MFI [id number]. Moderate risk: MFI 4655-7448. Increased risk: MFI >/= 5000. The presence of an antigen in two or more risk categories may indicate a mixed reactivity pattern among beads of multiple subtypes. Preformed donor-specific antibodies (DSA) with MFI above 2000 are predictive of positive cytotoxicity crossmatch (Hum Immunol 2010;71:268-73. Hum Immunol 2012;73:497- 604) and carry a higher risk of humoral rejection. For our solid-organ transplant programs, unacceptable antigens (UA) for transplant candidates are defined by MFI >/= 2000 with some exceptions. UA are listed at [facility] and used to generate calculated PRA (cPRA) rounded to the nearest integer. In the post-transplant setting, MFI values from donor-specific beads are listed in the DSA report to provide additional information. It is important to note that this test is approved as a qualitative test and the MFI values are not strictly linear. For platelet refractoriness: An empirical cutoff value of MFI >/= 2000 has been used in our center; a higher cutoff value such as 5000 may also be suitable for highly sensitized patients to prioritize the antigens to avoid. Testing performed at the [facility], [facility] [address], [address] floor, [place], [address]. [facility] # [id number]. Rosa Millan, Ph.D., Corporate Communications Intern, HLA Laboratory Wilmer Prescott M.D., Ph.D., Petroleum Geology Faculty Member, HLA Laboratory Alma Payton, Ph.D., CLIA Petroleum Geology Faculty Member, [facility] Current methodology and interpretive comments last revised on 11/15/2022. us Salina Hector MD LAB BLOOD ORDERABLES Final Resul t Performing Organization Address City/[facility]/ZIP Co de Phone Number HISTOTRAC * Hepatitis C antibody (03/06/2023 10:19 AM CDT) Hep C Ab Nonreactive Nonreactive [facility] Comment:Antibodies to HCV no t detected. Does NOT exclude the possibility of recent exposure to HCV. Current interpretive data was last revised on 22 Blood 03/06/2023 10:1 9 AM CDT 03/06/2023 10:38 AM CDT Maria Fernanda Bryant MD LAB MICROBIOLOGY - GENERAL ORDERABLES Final Result Performing Organization Address [facility] Co de Phone Number [facility] Department [place] [address] from Last 3 Months or Most Recently Relevant to Health Maintenance Insurance [facility]ICARE [facility] MED[employer]ARE MEDICARE [facility] [employer] [employer] MEDICARE TRANSPLANT [employer] Advance Directives For more information, please contact: [phone] * Full Code (Latest Code Status on File) Date Activated Date Inactivated Comments 11/19/2024 3:56 PM 11/19/2024 11:56 PM * Full Code Date Activated Date Inactivated Comments 05/19/2024 4:20 PM 05/25/2024 8:59 PM * Full Code Date Activated Date Inactivated Comments 08/21/2023 9:05 PM 08/27/2023 8:34 PM * Full Code Date Activated Date Inactivated Comments 08/02/2022 5:04 PM 08/03/2022 10:09 PM * Full Code Date Activated Date Inactivated Comments 07/21/2022 7:30 PM 07/25/2022 6:47 PM Care Teams Oil Well Drilling Manager Relationship Specialty Start Date End Date Pal Downey DO PCP - General Internal Medicine 01/25/21 Quinton Rowan MD Referring Physician Cardiology 01/09/19 Tami Flores, TONO [address] [address] Registered Nurse Cloth Grader 01/25/21 Cricket Escalante MD [address] [address] Referring Physician Nephrology 03/24/21 Gael Sprague MD PhD [address] [address] Fellow Endocrinology Diabetes & Metabolism 03/24/21 Brad Turner MD [address] [address] Consulting Physician Obstetrics and Gynecology 03/24/21 Margarita Montoya MD [address] [address] Consulting Physician Trauma Surgery 12/27/21 Luca Medrano MD [address] [address] Consulting Physician Cardiology 08/03/22 Pb Galloway MD [address] [id number] [place] [address] Cardiothoracic Surgery 05/25/24 Felipe Gerber MD [address] [id number] [place] [address] Consulting Physician Cardiology 05/25/24
--- OUTSIDE RECORDS SUMMARY | 2024-11-26 21:08 | XMS_ITS ---
Author Organization [facility] Address [address] [place] [address] Care Team Providers Care Music Assistant Name Role Phone Quinton Rowan MD Unavailable [phone] Pal Downey DO Primary Care Provider [phone] Tami Flores RN Unavailable Cricket Escalante MD Unavailable [phone] Gael Sprague MD PhD Unavailable Brad Turner MD Unavailable [phone] Margarita Montoya MD Unavailable [phone] Luca Medrano MD Unavailable [phone] Pb Galloway MD Unavailable [phone] Felipe Gerber MD Unavailable [phone] Dialysis Access Sites Type Status Location Placement Date Removal Da te Peritoneal Dialysis Catheter Active Right Abdomen (side) - Upper, Medial 12/27/2021 Procedures Procedure Name Priority Date/Time Associated Diagnosis Comments EGFR Routine 11/19/2024 6:00 PM THUMB SEWER DIFFERENTIAL AUTO Routine 11/19/2024 6:0 0 PM THUMB SEWER CBC WITH AUTO DIFFERENTIAL Routine 11/19/2024 6:00 PM THUMB SEWER BASIC METABOLIC PANEL Routine 11/19/2024 6:00 PM THUMB SEWER POCT ACTIVATED CLOTTING TIME, LOW RANGE Routine 11/19/2024 4:42 PM THUMB SEWER POCT ACTIVATED CLOTTING TIME, LOW RANGE Routine 11/19/2024 3:23 PM THUMB SEWER LEFT HEART CATHETERIZATION WITH CORONARY ANGIOGRAPHY AND WITH AND WITHOUT LEFT VENTRICULOGRAM Routine 11/19/2024 2:50 PM THUMB SEWER Chest pain, unspecified type POCT ACTIVATED CLOTTING TIME, LOW RANGE Routine 11/19/2024 2:49 PM THUMB SEWER POCT ACTIVATED CLOTTING TIME, LOW RANGE Routine 11/19/2024 2:30 PM THUMB SEWER POCT ACTIVATED CLOTTING TIME, LOW RANGE Routine 11/19/2024 2:01 PM THUMB SEWER TYPE AND SCREEN Timed 11/19/2024 2:01 PM THUMB SEWER POCT ACTIVATED CLOTTING TIME, LOW RANGE Routine 11/19/2024 1:53 PM THUMB SEWER POCT ACTIVATED CLOTTING TIME, LOW RANGE Routine 11/19/2024 1:49 PM THUMB SEWER POCT OXYHEMOGLOBIN - DEVICE Routine 11/19/2024 1:27 PM THUMB SEWER POCT OXYHEMOGLOBIN - DEVICE Routine 11/19/2024 1:26 PM THUMB SEWER POCT OXYHEMOGLOBIN - DEVICE Routine 11/19/2024 1:26 PM THUMB SEWER POC BLOOD GAS AND CHEMISTRIES, ARTERIAL Routine 11/19/2024 11:45 AM THUMB SEWER ECG 12-LEAD Routine 11/19/2024 11:16 AM THUMB SEWER SCAN - LABS 11/17/2024 CBC WITH AUTO DIFFERENTIAL Routine 11/16/2024 1:57 PM THUMB SEWER S/P TAVR (transcatheter aortic valve replacement) Chest pain, unspecified type BASIC METABOLIC PANEL Routine 11/16/2024 1:57 PM THUMB SEWER S/P TAVR (transcatheter aortic valve replacement) Chest pain, unspecified type TRANSTHORACIC ECHO (TTE) COMPLETE W DOPPLER/CF W CONTRAST Routine 11/10/2024 4:05 PM THUMB SEWER Acute diastolic heart failure (CMS/HCC) (HCC) HLA ANTIBODY SCREEN BY PRA OR SAB PER SCHEDULE (CLASS I AND CLASS II) Routine 11/05/2024 10:00 AM THUMB SEWER ESRD (end stage renal disease) (CMS/HCC) (HCC) HLA ANTIBODY SCREEN - SAB (CLASS I AND CLASS II) Routine 09/20/2024 10:00 AM THUMB SEWER ESRD (end stage renal disease) (CMS/HCC) (HCC) HLA ANTIBODY SCREEN BY PRA OR SAB PER SCHEDULE (CLASS I AND CLASS II) Routine 09/20/2024 10:00 AM THUMB SEWER ESRD (end stage renal disease) (CMS/HCC) (HCC) HEPATITIS C ANTIBODY Routine 03/06/2023 10:19 AM CDT ESRD (end stage renal disease) (CMS/HCC) (HCC) from Last 3 Months or Most Recently Relevant to Health Maintenance Allergies Active Allergy Reactions Criticality Noted Date Comments Amoxicillin Anaphylaxis High Per Armani Dumas MD, patient has previously tolerated cephalosporins. Frank Buckley, PharmD 05/10/2019 Ampicillin Anaphylaxis High 04/29/2015 Per Armani Dumas MD, patient has previously tolerated cephalosporins. Frank Buckley, PharmD 05/10/2019 Ghosh Hives Medium 12/22/2021 Richards beans, navy beans; Is able to eat green beans Clarithromycin Anaphylaxis High Penicillins Anaphylaxis,Rash,Unknown High 04/29/2015 Tree Nuts Vomiting Low 08/21/2023 Medications calcitRIOL (ROCALTROL) 0.5 mcg capsule Take 1 capsule (0.5 mcg total) by mouth once a week Sundays 0 Active VENTOLIN HFA 90 mcg/actuation inhaler Inhale 2 puffs every 4 (four) hours as needed for wheezing or shortness of breath 3 Active multivit-min/ferr ous fumarate (MULTI VITAMIN ORAL) [...] fluconazole (DIFLUCAN) 100 mg tablet as needed Active levothyroxine (SYNTHROID) 137 mcg tablet Take 1 tablet (137 mcg total) by mouth daily Active acetaminophen (TYLENOL) 325 mg tabletIndications :Fever,Pain Take 2 tablets (650 mg total) by mouth every 4 (four) hours as needed for pain Active midodrine (PROAMATINE) 10 mg tabletIndications :Symptomatic Orthostatic Hypotension Take 1 tablet (10 mg total) by mouth 3 (three) times a day before meals 90 tablet 1 024 Active ondansetron ODT (ZOFRAN-ODT) 4 mg disintegrating [...] TABLET BY MOUTH EVERY DAY 90 tablet 2024 Discontinued Hospital, Clinic, or Other Facility Administered [...] disease 07/08/2023 ESRD (end stage renal disease) ([facility]) 023 Assessment & Plan (05/21/2024 2:22 PM CDT): On peritoneal dialysis-management per renal team Chronic heart failure ([facility]) 08/02/2022 Assessment & Plan (05/24/2024 11:22 AM [...] telemetry, daily weights End stage renal disease ([facility]) 08/02/2022 Assessment & Plan (08/03/2022 9:30 AM CDT): -Hx of PCKD -Kidney transplant workup on hold until cardiac issues resolved -Started PD early 2021 -continue phoslo -renal consulted for PD assistance Shoulder pain 07/21/2022 Pre-transplant evaluation for end stage renal di sease 02/01/2022 Overview (02/01/2022): Added automatically from request for surgery [id number] Disorder of peritoneal dialysis catheter 022 Overview (12/22/2021): Added automatically from request for surgery [id number] Chronic kidney disease, stage V ([facility]) 2021 Overview (08/21/2023): Added automatically from request for surgery [id number] Sick sinus syndrome ([facility]) 11/02/2020 Diastolic heart failure 10/27/2019 S/P placement [...] no urine output throughout the day on 7/21 despite fluids -started dopamine and started to [...] TR NSTEMI (non-ST elevated myocardial infarction) ( [facility]) 02/07/2019 Assessment & Plan (05/12/2019 10:18 AM [...] Assessment & Plan (02/25/2019 11:43 AM CDT): [facility] with 95% LAD lesion, had some RV [...] Assessment & Plan (02/24/2019 9:29 AM CDT): [facility] with 95% LAD lesion, had some RV [...] Assessment & Plan (02/20/2019 5:17 AM CDT): [facility] with 95% LAD lesion, had some RV dysfunction during AV repair and found to have RCA occlusion following LAD bypass - s/p IABP placement - CABG to LAD and LCA Assessment & Plan (02/19/2019 2:08 AM CDT): [facility] with 95% LAD lesion, had some RV dysfunction during AV repair and found to have RCA occlusion following LAD bypass - s/p IABP placement - CABG to LAD and LCA Assessment & Plan (02/17/2019 7:38 PM CDT): [facility] with 95% LAD lesion, had some RV dysfunction during AV repair and found to have RCA occlusion following LAD bypass - s/p IABP placement - CABG to LAD and LCA - on Epi and Milrinone, wean epi as above Assessment & Plan (02/16/2019 11:38 PM CDT): [facility] with 95% LAD lesion, had some RV dysfunction during AV repair and found to have RCA occlusion following LAD bypass - s/p IABP placement - CABG to LAD and LCA - on Epi and Milrinone of inotropy Assessment & Plan (02/11/2019 6:16 PM CDT): [facility] with 95% LAD lesion, had some RV [...] to 4.35 - valve team consulted, 02/09 [facility] with severe 1 vessel disease of ostial [...] (02/09/2019): Added automatically from request for surgery [id number] Assessment & Plan (05/17/2019 9:19 AM CDT): [...] (02/10/2019): Added automatically from request for surgery [id number] Assessment & Plan (05/24/2024 11:21 AM CDT): [...] currently stable Daily BMPs, while inpatient Home broomcorn thresher is Dr. Escalante Continue lasix 40 mg [...] Cr consistently elevated post-op around 3.5-3.9 Home (renal) is Dr. Escalante Continue to [...] kidney disease, baseline Cr 2.4-2.6. F/b OSH broomcorn thresher. Apparently discussions for potential need for renal txp being discussed. - Cr at baseline on adm - avoid nephrotoxins, renally dose meds - continue calcitriol 0.5 mcg/day - Cr 2.75, received pre-cath hydration, stable 2.7 Headache 05/02/2016 Moderate COPD (chronic obstr uctive pulmonary disease) ([facility]) 11/02/2015 Assessment & Plan (08/02/2022 5:33 PM [...] AM CDT): Hitesh TAVR 05/21 Followed by [facility], Dr. Medrano. CT TAVR on [...] not a candidate for intervention [facility] Assessment & Plan (05/17/2019 [...] AV. Referred to valve team by primary local company hazmat driver Dr. Rowan. Seen 02/02 by valve team (Dr. Gerber) and CTS (Dr. Fernández) - TAVR TTE 02/02 with paradoxical low flow low gradient severe (AV mean gradient 25, peak gradient 38, ASHOK 0.7 cm2 using LVOT diameter of 1.9 cm) with hyperdynamic LV systolic function EF >75%. Mild TR with normal PASP. - scheduled for 02/27 outpatient LHC/RHC with AV assessment with gradients and IVUS of lower ext to eval fem arteries for possible TAVR - euvolemic currently, spot diurese - added hydral 25 TID for afterload reduction - valve team consulted, pt is poor candidate for TAVR, needs SAVR, CTS consulted Immunizations Name Administration Dates Next Due Hep B Vaccine 04/30/2022,03/21/2022,02/19/2022 Influenza, Split 10/21/2017 Social History Tobacco Use Types Packs/Day Years [...] on file Legal Sex Female 4:06 AM THUMB SEWER Gender Identity Female 01/16/2024 11:18 AM CDT Sexual Orientation Straight 01/16/2024 11 :18 AM CDT Last Filed Vital Signs Vital Sign Reading Time Taken Comments Blood Pressure 130/75 11/19/2024 7:05 PM THUMB SEWER Pulse 71 11/19/2024 7:05 PM THUMB SEWER Temperature 36.6 C (97.9 F) 11/19/2024 11:25 AM THUMB SEWER Respiratory Rate 21 11/19/2024 7:05 PM THUMB SEWER Oxygen Saturation 94% 11/19/2024 7:05 PM THUMB SEWER Inhaled Oxygen Concentration - - Weight 52.8 kg (116 lb 6.5 oz) 11/19/2024 11:25 AM THUMB SEWER Height 162.6 cm (5' 4 ) 11/19/2024 11:25 AM THUMB SEWER Body Mass Index 19.98 11/19/2024 11:25 AM THUMB SEWER Results * (ABNORMAL) eGFR (11/19/2024 6:00 PM THUMB SEWER) eGFR 3(L) >=60 mL/min/1. 73 m2 Comment: [...] last reviewed 2021. Blood 11/19/2024 6:00 PM THUMB SEWER 11/19/2024 6:10 PM THUMB SEWER Luca Medrano MD LAB BLOOD ORDERABLES Final R esult [facility] Department [place] [address] * (ABNORMAL) Differential, auto (11/19/2024 6:00 PM THUMB SEWER) Neutrophil abs 6.5 1.5 - 6.5 K/cumm Imm gran abs 0.0 0.0 - 0.1 K/cumm [facility] Lymphocyte abs 0.5(L) 0.8 - 3.3 K/cumm [facility] Monocyte abs 0.3 0.2 - 0.8 K/cumm [facility] Eosinophil abs 0.1 0.0 - 0.5 K/cumm [facility] Basophil abs 0.0 0.0 - 0.1 K/cumm [facility] Neutrophil pct 87.7 % [facility] Comment: Interpretive Data Percent cell count reference ranges are not reported, since discordance with absolute values may lead to misinterpretation of CBC data. Current Interpretive Data was last revised on 2018. Imm gran pct 0.3 % [facility] Comment: Interpretive Data Percent cell count reference ranges are not reported, since discordance with absolute values may lead to misinterpretation of CBC data. Current Interpretive Data was last revised on 2018. Lymphocyte pct 6.8 % [facility] Comment: Interpretive Data Percent cell count reference ranges are not reported, since discordance with absolute values may lead to misinterpretation of CBC data. Current Interpretive Data was last revised on 2018. Monocyte pct 3.4 % [facility] Comment: Interpretive Data Percent cell count reference ranges are not reported, since discordance with absolute values may lead to misinterpretation of CBC data. Current Interpretive Data was last revised on 2018. Eosinophil pct 1.5 % [facility] Comment: Interpretive Data Percent cell count reference ranges are not reported, since discordance with absolute values may lead to misinterpretation of CBC data. Current Interpretive Data was last revised on 2018. Basophil pct 0.3 % [facility] Comment: Interpretive Data Percent cell count reference ranges are not reported, since discordance with absolute values may lead to misinterpretation of CBC data. Current Interpretive Data was last revised on 2018. Blood 11/19/2024 6:00 PM THUMB SEWER 11/19/2024 6:04 PM THUMB SEWER us Luca Medrano MD LAB BLOOD ORDERABLES Final R esult [facility] Department [place] [address] * (ABNORMAL) CBC with auto differential (11/19/2024 6:00 PM THUMB SEWER) [facility] WBC 7.4 3.8 - 9.9 K/cumm Hgb 11.6(L) 11.9 - 15.5 g/dL [facility] Hct 36.7 35.6 - 45.5 % [facility] Plt 150 150 - 400 K/cumm [facility] MPV 10.6 9.1 - 12.3 fL [facility] RBC 4.22 3.90 - 5.20 M/cumm [facility] MCV 87.0 81.3 - 96.4 fL [facility] MCH 27.5 27.1 - 33.3 pg [facility] MCHC 31.6(L) 32.3 - 35.7 g/dL [facility] RDW CV 14.6 11.1 - 14.9 % [facility] RDW SD 46.1 35.7 - 48.1 fL [facility] NRBC abs 0.00 0.00 - 0.01 K/cumm [facility] Blood 11/19/2024 6:00 PM THUMB SEWER 11/19/2024 6:04 PM THUMB SEWER us Luca Medrano MD LAB BLOOD ORDERABLES Final R esult [facility] Department [place] [address] * (ABNORMAL) Basic metabolic panel (11/19/2024 6:00 PM THUMB SEWER) [facility] Sodium 130(L) 135 - 145 mmol/L Potassium, pl 4.3 3.3 - 4.9 mmol/L [facility] Chloride 90(L) 97 - 110 mmol/L [facility] CO2 23 22 - 32 mmol/L [facility] Anion gap 17(H) 2 - 15 mmol/L [facility] BUN 57(H) 6 - 25 mg/dL [facility] Creatinine 13.87(H) 0.60 - 1.10 mg/dL [facility] Glucose 150 70 - 199 mg/dL [facility] Comment: Interpretive Data Fasting glucose >/= 126 [...] 2022. Calcium 6.9(L) 8.5 - 10.3 mg/dL [facility] Blood 11/19/2024 6:00 PM THUMB SEWER 11/19/2024 6:04 PM THUMB SEWER us Luca Medrano MD LAB BLOOD ORDERABLES Final R esult Performing Organization Address [facility]/ZIP Co de Phone Number [facility] Department [place] [employer] [place] [address] * (ABNORMAL) POCT Activated clotting time, low range (11/19/2024 4:42 PM THUMB SEWER) ACT 171(H) 123 - 168 sec POC Performer [id number] [facility] POC Device Number [id number] [facility] Blood 11/19/2024 4:42 PM THUMB SEWER 11/19/2024 4:42 PM THUMB SEWER Luca Medrano MD LAB POCT ORDERABLES - DEVICE Final Result [facility] [place] [address] * (ABNORMAL) POCT Activated clotting time, low range (11/19/2024 3:23 PM THUMB SEWER) ACT 266(H) 123 - 168 sec POC Performer [id number] [facility] POC Device Number [id number] [facility] Blood 11/19/2024 3:23 PM THUMB SEWER 11/19/2024 3:23 PM THUMB SEWER us Luca Medrano MD LAB POCT ORDERABLES - DEVICE Final Result [facility] Department [place] [address] * LEFT HEART CATHETERIZATION WITH CORONARY ANGIOGRAPHY AND WITH AND WITHOUT LEFT VENTRICULOGRAM (11/19/2024 2:50 PM THUMB SEWER) Anatomical Region Laterality Modality X-Ray Angiograph y Impressions 11/19/2024 4:18 PM THUMB SEWER Very severe stenosis of the vein graft [...] attempt intervention again. I would suggest a Von Ormy 1 0 guiding catheter and consideration for shockwave versus atherectomy. I was present during the entire procedure and personally dictated or confirmed the above report. Luca Medrano MD Narrative 11/19/2024 4:18 PM THUMB SEWER Procedure: CORONARY ANGIOGRAM / RIGHT HEART CATHETERIZATION/percutaneous coronary intervention Patient: Estuardo Copeland is a 54 y.o. female : 1970 MR number: [id number] Date of Service: 11/19/2024 Media Manager: Luca Medrano MD Fellow: Josesito Pabon MD [...] obtained. The patient was brought to the grinding and polishing laborer and placed on the table Bilateral groins [...] coronary artery angiogram performed using a 6 Swazi JR4 catheter Right heart catheterization preformed with VANI Sheridan Percutaneous coronary intervention performed on the Proximal saphenous vein graft to the LAD. This was an ACC/AHA Type C. Initial Lesion Length 12mm and final lesion Length 15mm. Initial KAROLINA Flow 3 with visible thrombus present Final KAROLINA Flow 3. Equipment used: 6 3DRC, EyeCyte IVUS Catheter, scion blue wire, 0.9 mm laser atherectomy catheter, 2 5 x 15 NC emerge balloon, a 3 0 x 12 mm AngioSculpt balloon, 4 0 by 15 NC emerge balloon, 4 0 x 15 resolute drug-eluting stent, 4 5 x 12 mm NC emerge balloon Attempted intervention on the ostial left main equipment used was a 6 Swazi JL 3.5 guiding catheter, she on black [...] than 300. We took up a 6 Swazi 3D RC that sat reasonably well in [...] or perforation. We then took our 6 Swazi JL 3.5 guiding catheter attempted to intubate [...] right femoral artery and placed a 6 Swazi Angio-Seal. Manual compression was performed on the venous sheath. COMPLICATIONS: None DIAGNOSTIC Luca Medrano MD CV CARDIAC CATH PROCEDURES F inal Result * (ABNORMAL) POCT Activated clotting time, low range (11/19/2024 2:49 PM THUMB SEWER) ACT 260(H) 123 - 168 sec POC Performer [id number] [facility] POC Device Number [id number] [facility] Blood 11/19/2024 2:49 PM THUMB SEWER 11/19/2024 2:49 PM THUMB SEWER Luca Medrano MD LAB POCT ORDERABLES - DEVICE Final Result [facility] Department [place] [address] * (ABNORMAL) POCT Activated clotting time, low range (11/19/2024 2:30 PM THUMB SEWER) ACT 385(H) 123 - 168 sec POC Performer [id number] [facility] POC Device Number [id number] [facility] Blood 11/19/2024 2:30 PM THUMB SEWER 11/19/2024 2:30 PM THUMB SEWER Luca Medrano MD LAB POCT ORDERABLES - DEVICE Final Result Performing Organization Address [facility] de Phone Number [facility] [place] [address] * (ABNORMAL) POCT Activated clotting time, low range (11/19/2024 2:01 PM THUMB SEWER) ACT >400(H) 123 - 168 sec POC Performer [id number] [facility] POC Device Number [id number] [facility] Blood 11/19/2024 2:01 PM THUMB SEWER 11/19/2024 2:01 PM THUMB SEWER Luca Medrano MD LAB POCT ORDERABLES - DEVICE Final Result Performing Organization Address [facility] de Phone Number [facility] [place] [address] * Type and screen (11/19/2024 2:01 PM THUMB SEWER) ABO Rh B Positive Jorge A, indirect Negative [facility] Blood 11/19/2024 2:01 PM THUMB SEWER 11/19/2024 2:14 PM THUMB SEWER Narrative [facility] - 11/19/2024 3:08 PM THUMB SEWER Has the patient had Daratumumab or Isatuximab in the past 6 months?->Unknown Luca Medrano MD LAB BLOOD BANK TEST ORDERABL ES Final Result Performing Organization Address [facility] de Phone Number [facility] [place] [address] * (ABNORMAL) POCT Activated clotting time, low range (11/19/2024 1:53 PM THUMB SEWER) ACT >400(H) 123 - 168 sec POC Performer [id number] [facility] POC Device Number [id number] [facility] Blood 11/19/2024 1:53 PM THUMB SEWER 11/19/2024 1:53 PM THUMB SEWER Luca Medrano MD LAB POCT ORDERABLES - DEVICE Final Result Performing Organization Address [facility] Co de Phone Number [facility] [employer] [place] [address] * (ABNORMAL) POCT Activated clotting time, low range (11/19/2024 1:49 PM THUMB SEWER) [facility] ACT 78(L) 123 - 168 sec POC Performer [id number] [facility] POC Device Number [id number] [facility] Blood 11/19/2024 1:49 PM THUMB SEWER 11/19/2024 1:49 PM THUMB SEWER Luca Medrano MD LAB POCT ORDERABLES - DEVICE Final Result Performing Organization Address [facility] de Phone Number [facility] [employer] [place] [address] * (ABNORMAL) POCT oxyhemoglobin (11/19/2024 1:27 PM THUMB SEWER) [facility] RE[employer]UITING CONSULTANT Oxyhemoglobin 91.6 >=65.0 % [employer]ANT Hemoglobin 11.2(L) 11.9 - 15.5 g/dL [facility] RE[employer]ING [employer]SULTANT O2 content 14.3(L) 15.0 - 22.0 Vol % [facility] Anatomic Site aPOC Aorta [facility] Blood 11/19/2024 1:27 PM THUMB SEWER 11/19/2024 1:27 PM THUMB SEWER Luca Medrano MD LAB POCT ORDERABLES - DEVICE Final Result Performing Organization Address [facility] Co de Phone Number [facility] [employer] [place] [address] * (ABNORMAL) POCT oxyhemoglobin (11/19/2024 1:26 PM THUMB SEWER) [facility] RECRUITING CONSULTANT Oxyhemoglobin 56.2(L) >=65.0 % [employer]ING CONS[employer]ANT Hemoglobin 11.0(L) 11.9 - 15.5 g/dL [facility] RECRUITING CONSULTANT O2 content 8.6(L) 15.0 - 22.0 Vol % [facility] Anatomic Site aPOC Pulm Artery [facility] Blood 11/19/2024 1:26 PM THUMB SEWER 11/19/2024 1:26 PM THUMB SEWER Luca Medrano MD LAB POCT ORDERABLES - DEVICE Final Result Performing Organization Address [facility] de Phone Number [facility] [place] [address] * (ABNORMAL) POCT oxyhemoglobin (11/19/2024 1:26 PM THUMB SEWER) [facility] RECRUITING CONSULTANT Oxyhemoglobin 56.6(L) >=65.0 % RE[employer]UITING CONSULTANT Hemoglobin 10.9(L) 11.9 - 15.5 g/dL [facility] RECRUITING CONSULTANT O2 content 8.6(L) 15.0 - 22.0 Vol % [facility] Anatomic Site aPOC Pulm Artery [facility] Blood 11/19/2024 1:26 PM THUMB SEWER 11/19/2024 1:26 PM THUMB SEWER Luac Medrano MD LAB POCT ORDERABLES - DEVICE Final Result Performing Organization Address [facility] de Phone Number [facility] Department [place] [address] * POC Blood Gas and Chemistries, Arterial - (11/19/2024 11:45 AM THUMB SEWER) K POC 3.7 3.3 - 4.9 mmol/L Comment: Interpretive Data Not all point of care methods assess for hemolysis. Confirm with instrument and retest K+ if not consistent with clinical signs and symptoms. Current Interpretive Data was last revised on 2024. Blood 11/19/2024 11:4 5 AM THUMB SEWER 11/19/2024 11:45 AM THUMB SEWER Luca Medrano MD LAB POCT ORDERABLES - DEVICE Final Result Performing Organization Address City/[facility]/ZIP Co de Phone Number [facility] [place] [address] * ECG 12 lead (11/19/2024 11:16 AM THUMB SEWER) Ventricular Rate EKG/Min 90 BPM [facility] QRS-Interval (MSEC) 84 ms [facility] QT-Interval (MSEC) 404 ms [facility] QTc 494 ms [facility] R [place] 6 degrees [facility] T [place] 144 degrees [facility] Diagnosis Atrial fibrillation Electronic atrial pacemaker Minimal voltage criteria for LVH, may be normal variant ( Oliverio product ) Septal infarct , age undetermined T wave abnormality, consider lateral ischemia Abnormal ECG Confirmed by HARJINDER HANDY M.D ([id number]) on 11/19/2024 3:59:31 PM [facility] 11/19/2024 11:1 6 AM THUMB SEWER 11/19/2024 3:59 PM THUMB SEWER Luca Medrano MD ECG ORDERABLES Final Result Performing Organization Address [facility] Co de Phone Number [facility] * SCAN - LABS (11/17/2024) Provider Scanning Final Result * CBC with auto differential (11/16/2024 1:57 PM THUMB SEWER) WBC 7.2 3.4 - 10.8 x10E3/uL [facility] [...] [facility] - 01 Blood 11/16/2024 1:57 PM THUMB SEWER 11/16/2024 Narrative [facility] - 11/17/2024 8:14 AM THUMB SEWER Performed at: [address] [id number] Fitting Room Supervisor: Marco Antonio Paiz PhD, Phone: [phone] us Luca Medrano MD LAB BLOOD ORDERABLES Final [facility] * (ABNORMAL) Basic metabolic panel (11/16/2024 1:57 PM THUMB SEWER) [facility] Glucose 88 70 - 99 mg/dL [facility] [...] [facility] - 01 Blood 11/16/2024 1:57 PM THUMB SEWER 11/16/2024 Narrative [facility] - 11/17/2024 12:09 PM THUMB SEWER Performed at: [address] [id number] Fitting Room Supervisor: Marco Antonio Paiz PhD, Phone: [phone] us Luca Medrano MD LAB BLOOD ORDERABLES Final R esult [facility] * TRANSTHORACIC ECHO (TTE) COMPLETE W DOPPLER/CF W CONTRAST (11/10/2024 4:05 PM THUMB SEWER) LV EF % CONS SCIMAGE Anatomical Region Laterality Modality Ultrasound 11/10/2024 2:55 PM THUMB SEWER Narrative 11/11/2024 9:34 AM THUMB SEWER [facility] [address] , [address] [place] [address] Transthoracic Echocardiographic Report Patient Name: ESTUARDO COPELAND M : 1970 (54y ) Gender: F Study Date: 11/10/2024 02:55:48 PM Ht(Inch): 64 Wt(Lb): 115.08 BSA: 1.54 Air Marshal: GERA Wells Location: [facility] Order Provider: LUCA MEDRANO Heart Rate: 76 BMI: 19.75 BP: 94/60 Quality: Technically difficult study due to limited acoustic windows. Ref Provider: LUCA MEDRANO PROCEDURES: Echocardiographic Report: ([id number], [id number]) Transthoracic complete echo with strain imaging and contrast, 2D, spectral and tissue Doppler, color flow Doppler, M- mode. Additional Procedures: ([id number]) 3D echocardiographic imaging from Echo Machine. Contrast: [...] [ 46.00 - 106.00 ] AI Decel Menard 1.58 m/s2 ESV Mod 2C 14.03 ml [...] By: Silver Levin MD 11/11/2024 9:32:57 AM THUMB SEWER Electronically Signed By: Silver Levin MD 11/11/2024 9:32:57 AM THUMB SEWER Procedure Note Silver Levin MD - 11/11/2024 [facility] [address] [place] [address] Transthoracic Echocardiographic Report Patient Name: ESTUARDO COPELAND M : 1970 (54y ) Gender: F Study Date: 11/10/2024 02:55:48 PM Ht(Inch): 64 Wt(Lb): 115.08 BSA: 1.54 Air Marshal: GERA Wells Location: [facility] Order Provider:LUCA MEDRANO Heart Rate: 76 BMI: 19.75 BP: 94/60 Quality: Technically difficult studydue to limited acoustic windows. Ref Provider: LUCA MEDRANO PROCEDURES: Echocardiographic Report: ([id number], [id number], [id number]) Transthoracic completeecho with strain imaging and contrast, 2D, spectral and tissue Doppler, color flow Doppler,M- mode. Additional Procedures: ([id number]) 3D echocardiographic imaging from simpleFLOORSut. Contrast: 0.4 ml Optison Administered, (2.6 ml [...] EDV Mod 4C 60.63 ml AI Decel [id number] sec EDV Mod BP 56.21 ml [ 46.00 - 106.00 ] AI Decel Slope1.58 m/s2 ESV Mod 2C 14.03 ml AI NMP183.67 msec ESV Mod 4C 21.21 ml MV [...] cm LA Length 4C 5.48 cm MV SYM374.85 msec [ 20.00 - 100.00 ] LA Volume 2C 34.1 ml MVA PHT2.18 cm2 LA Volume 4C 31.3 ml MV Decel Mwkj069.53 msec [ 104.00 - 258.00 ] LA [...] cm [ 2.70 - 3.70 ] MR QBZ155.8 cm Ao Root Index 1.32 cm/m2 MR [...] By: Silver Levin MD 11/11/2024 9:32:57 AM THUMB SEWER Electronically Signed By: Silver Levin MD 11/11/2024 9:32:57 AM THUMB SEWER Luca Medrano MD CV ECHO PROCEDURES Final Res ult * HLA Antibody Screen by PRA or SAB per Schedule (Class I and Class II) (11/05/2024 10:00 AM THUMB SEWER) Blood 11/05/2024 10:0 0 AM THUMB SEWER Narrative [facility] - THUMB SEWER Sample received in lab and stored. No testing performed at this time. Salina Hector MD LAB BLOOD ORDERABLES Final Resul t Performing Organization Address [facility] Co de Phone Number [facility] * HLA Antibody Screen by PRA or SAB per Schedule (Class I and Class II) (09/20/2024 10:00 AM THUMB SEWER) Blood 09/20/2024 10:0 0 AM THUMB SEWER Narrative [facility] - THUMB SEWER Sample received in lab. Single Antigen Antibody Screen ordered. Salina Hector MD LAB BLOOD ORDERABLES Final Resul t Performing Organization Address [facility] Co de Phone Number [facility] * HLA Antibody Screen - SAB (Class I and Class II) (09/20/2024 10:00 AM THUMB SEWER) Class I Treatment EDTA [facility] Class I [...] DPB1*01:01, DPB1*03:01 [facility] 09/20/2024 10:0 0 AM THUMB SEWER 09/24/2024 12:48 PM THUMB SEWER Narrative [facility] - 09/24/2024 12:48 PM THUMB SEWER Single-antigen HLA antibody screen is performed on serum samples using a method developed and validated by the [facility] HLA laboratory based on an FDA-approved IVD kit (LABScreen Single-Antigen, [employer], [place], [place]). All patient serum samples are pretreated with EDTA before the screen to prevent complement interference. Additional serum treatments, such as adsorption and DTT treatment, may be performed as indicated. Interpretive comments: Low risk: MFI [id number]. Moderate risk: MFI [id number]. Increased risk: MFI >/= 5000. The presence [...] antigens to avoid. Testing performed at the [facility], [address], [place], [address]. CLIA # [id number]. Rosa Millan, Ph.D., Senior Controls Technician, HLA Laboratory Wilmer Prescott M.D., Ph.D., Heating Unit Installer, [facility] Laboratory Alma Payton, Ph.D., [place] Heating Unit Installer, [facility] Current methodology and interpretive comments last revised on 11/15/2022. us Salina Hector MD LAB BLOOD ORDERABLES Final Resul t [facility] * Hepatitis C antibody (03/06/2023 10:19 AM CDT) Hep C Ab Nonreactive Nonreactive CAMERON DOMINGUEZ Comment:Antibodies to HCV no t detected. Does NOT exclude the possibility of recent exposure to HCV. Current interpretive data was last revised on 22 Blood 03/06/2023 10:1 9 AM CDT 03/06/2023 10:38 AM CDT us Maria Fernanda Bryant MD LAB MICROBIOLOGY - GENERAL ORDERABLES Final Result CAMERON DOMINGUEZ [facility] Department [place] [address] from Last 3 Months or Most Recently Relevant to Health Maintenance
--- OUTSIDE RECORDS SUMMARY | 2024-11-26 21:08 | XMS_ITS | Clinical Summary ---
Author Organization [facility] Address [address] [place] [address] Care Team Providers Care Case Investigator Name Role Phone Danielle Hawkins Primary Care Provider Unavailabl e Source Comments [facility],non-owned Affiliates and Associated Physician Practices is amultiple site organization consisting of ambulatory clinics and hospital sitesin [place], [place] and [place]. This disclosure is being madepursuant to the Care Everywhere program and may not contain all information available regarding this patient. 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 Family History Medical History Relation Name Comments Heart Disease Father Cancer Maternal Aunt Cancer Mother Relation Name Status Comments Father Maternal Aunt Mother Social History Tobacco Use Types Packs/Day [...] Comments Blood Pressure 145/91 09/06/2016 9:59 AM [employer] Pulse 79 09/06/2016 9:59 AM [employer] Temperature 36.4 C (97.5 F) 12/23/2015 3:20 PM [employer] Respiratory Rate 12 09/06/2016 9:59 AM [employer] Oxygen Saturation 100% 12/23/2015 3:20 PM [employer] Inhaled Oxygen Concentration - - Weight 60.8 kg (134 lb) 09/06/2016 9:59 AM [employer] Height 162.6 cm (5' 4 ) 09/06/2016 9:59 AM [employer] Body Mass Index 23 09/06/2016 9:59 AM [employer] Plan of Treatment Health Maintenance Due Date Last Done Comments COLOGUARD (AGES 45-75) - COL ON CA SCREENING 1970 COLON MONITORING 1971 COLONOSCOPY - COLON CA SCREENING 1971 CT COLONOGRAPHY - COLON CA SCREENING 1971 Colorectal Cancer Screening 1971 FIT - COLON CA SCREENING 1971 FLEX SIG - COLON CA SCREENING 1971 MAMMOGRAM 1971 MEDICARE AWV 12 MONTHS 1971 PAP SMEAR 1971 HIV SCREENING 1986 HEPATITIS C SCREENING 11/03/1989 DTAP/TDAP/TD VACCINES (1 - Tdap) 1990 HEPATITIS B VACCINE (1 of 3 - 19+ 3-dose series) 1990 PNEUMOCOCCAL VACCINE 50+ (1 of 1 - PCV) 2021 ZOSTER VACCINE (1 of 2) 2021 COVID-19 VACCINE (1 - 2023-2 5 season) 2024 INFLUENZA VACCINE (#1) 2024 DEPRESSION SCREENING 10/21/2024 HIB VACCINE Aged Out No longer eligi ble based on patient's age to complete this topic HPV VACCINE Aged Out No longer eligi ble based on patient's age to complete this topic MENINGOCOCCAL (Group B) VACCINE Aged Out No longer eligible based on patient's age to complete this topic MENINGOCOCCAL VACCINE Aged Out No joi lorena eligible based on patient's age to complete this topic PNEUMOCOCCAL VACCINE Aged Out No long er eligible based on patient's age to complete this topic Care Teams Case Investigator Relationship Specialty Start Date End Date Danielle Hawkins Update Information PCP - General 04/29/15
--- OUTSIDE RECORDS SUMMARY | 2024-11-26 21:08 | XMS_ITS | Referral Summary ---
Author Organization [facility] Address [address] [place] [address] Care Team Providers Care Wet Trimmer Name Role Phone Quinton Rowan MD Unavailable [phone] Pal Downey DO Primary Care Provider [phone] Tami Flores RN Unavailable [phone] Cricket Escalante MD Unavailable [phone] Gael Sprague MD PhD Unavailable Brad Turner MD Unavailable [phone] Margarita Montoya MD Unavailable [phone] Luca Medrano MD Unavailable Pb Galloway MD Unavailable Felipe Gerber MD Unavailable [phone] Encounters Date Type Department Care Team Description 11/19/2024 2:02 PM LEATHER CARVER - 11/19/2024 3:42 PM LEATHER CARVER Surgery [facility] [address] [place] [address] Luca Medrano MD LEFT HEART CATHETERIZATION WITH CORONARY ANGIOGRAPHY AND WITH OR WITHOUT LEFT VENTRICULOGRAM [id number] 11/19/2024 11:04 AM LEATHER CARVER - 11/19/2024 7:20 PM LEATHER CARVER Hospital Encounter [facility] [address] [facility] [place] [place] [address] Luca Medrano MD Coronary artery disease involving [place] coronary artery of [place] heart with angina pectoris (HCC) [I25.119] (Primary Dx); Chest pain, unspecified type Discharge Disposition: Discharge to home or self care 11/18/2024 11:45 AM LEATHER CARVER Office Visit [facility] Cardiology [address] [place] [address] 8th [place] [address] [place] [phone] Lane Ramos MD PhD SSS (sick sinus syndrome) (CMS/HCC) (HCC) (Primary Dx) 11/18/2024 11:15 AM LEATHER CARVER Ancillary Procedure [address] 8th [place] [address] [place] [id number] SSS (sick sinus syndrome) (CMS/HCC) (HCC) (Primary Dx); Fitting or adjustment of cardiac pacemaker 11/17/2024 Orders Only [facility] CARDIOLOGY Scanning, Provider 11/10/2024 Telephone [facility] Cardiology [address] [place] [address] Medical Office Building 3 [address] [place] [phone] Luca Medrano MD [facility] 11/10/2024 3:00 PM LEATHER CARVER Ancillary Procedure [facility] [address] [place] [address] [address] [place] [address] Acute diastolic heart failure (CMS/HCC) (HCC) 11/05/2024 10:00 AM LEATHER CARVER - 11/05/2024 11:59 PM LEATHER CARVER Hospital Encounter [facility] [address] [place] [address] ESRD (end stage renal disease) (CMS/HCC) (HCC) Discharge Disposition: Discharge to home or self care 11/05/2024 Orders Only [facility] Cardiology [address] [place] [address] 8th [place] [address] [place] [address] Luca Medrano MD 11/04/2024 11:30 AM LEATHER CARVER Office Visit [facility] Cardiology [address] [place] [address] Building [address] [place] [address] Luca Medrano MD Acute diastolic heart failure (CMS/HCC) (HCC) (Primary Dx); Chronic systolic heart failure (CMS/HCC) (HCC); Coronary artery disease involving [place] coronary artery of [place] heart with angina pectoris (HCC) 09/23/2024 Orders Only [facility] Transplant Kidney [address] [facility] [address] [phone] [place] [address] Tami Flores RN ESRD (end stage renal disease) (CMS/HCC) (HCC) (Primary Dx) 09/20/2024 10:00 AM LEATHER CARVER - 09/20/2024 11:59 PM [facility] Hospital Encounter [address] [address] ESRD (end stage renal disease) ([facility]) (HCC) Discharge Disposition: Discharge to home or self care 09/11/2024 Telephone [facility] [address] [facility] [address] [phone] [place] [address] Mariann Bobo 09/10/2024 Telephone [facility] [address] [facility] [address] [phone] [place] [address] Mariann Bobo from Last 3 Months Allergies Active Allergy Reactions Criticality Noted Date [...] up to 3 doses total 30 tablet 025 Active fludrocortisone 0.1 mg tablet Take 1 [...] disease 07/08/2023 ESRD (end stage renal disease) ([facility]) 023 Assessment & Plan (05/21/2024 2:22 PM CDT): On peritoneal dialysis-management per renal team Chronic heart failure ([facility]) 08/02/2022 Assessment & Plan (05/24/2024 11:22 AM [...] telemetry, daily weights End stage renal disease ([facility]) 08/02/2022 Assessment & Plan (08/03/2022 9:30 AM CDT): -Hx of PCKD -Kidney transplant workup on hold until cardiac issues resolved -Started PD early 2021 -continue phoslo -renal consulted for PD assistance Shoulder pain 07/21/2022 Pre-transplant evaluation for end stage renal di sease 02/01/2022 Overview (02/01/2022): Added automatically from request for surgery [id number] Disorder of peritoneal dialysis catheter 022 Overview (12/22/2021): Added automatically from request for surgery [id number] Chronic kidney disease, stage V ([facility]) 2021 Overview (08/21/2023): Added automatically from request for surgery [id number] Sick sinus syndrome ([facility]) 11/02/2020 Diastolic heart failure 10/27/2019 [...] valvular dysfunction Previous bioAVR with TAVR in 2018 Hitesh TAVR 05/21 DAPT given previous PCI [...] TR NSTEMI (non-ST elevated myocardial infarction) ( [facility]) 02/07/2019 Assessment & Plan (05/12/2019 [...] Assessment & Plan (02/25/2019 11:43 AM CDT): [facility] with 95% LAD lesion, had some RV [...] Assessment & Plan (02/24/2019 9:29 AM CDT): [facility] with 95% LAD lesion, had some RV [...] Assessment & Plan (02/20/2019 5:17 AM CDT): [facility] with 95% LAD lesion, had some RV dysfunction during AV repair and found to have RCA occlusion following LAD bypass - s/p IABP placement - CABG to LAD and LCA Assessment & Plan (02/19/2019 2:08 AM CDT): [facility] with 95% LAD lesion, had some RV dysfunction during AV repair and found to have RCA occlusion following LAD bypass - s/p IABP placement - CABG to LAD and LCA Assessment & Plan (02/17/2019 7:38 PM CDT): [facility] with 95% LAD lesion, had some RV dysfunction during AV repair and found to have RCA occlusion following LAD bypass - s/p IABP placement - CABG to LAD and LCA - on Epi and Milrinone, wean epi as above Assessment & Plan (02/16/2019 11:38 PM CDT): [facility] with 95% LAD lesion, had some RV dysfunction during AV repair and found to have RCA occlusion following LAD bypass - s/p IABP placement - CABG to LAD and LCA - on Epi and Milrinone of inotropy Assessment & Plan (02/11/2019 6:16 PM CDT): [facility] with 95% LAD lesion, had some RV [...] to 4.35 - valve team consulted, 02/09 [facility] with severe 1 vessel disease of ostial [...] (02/09/2019): Added automatically from request for surgery [id number] Assessment & Plan (05/17/2019 9:19 AM CDT): [...] (02/10/2019): Added automatically from request for surgery [id number] Assessment & Plan (05/24/2024 11:21 AM CDT): [...] with left shoulder pain similar to previous NM -EKG changes per OSH --Slight elevation in [...] currently stable Daily BMPs, while inpatient Home aerial gunner superintendent is Dr. Escalante Continue lasix 40 mg [...] kidney disease, baseline Cr 2.4-2.6. F/b OSH aerial gunner superintendent. Apparently discussions for potential need for renal txp being discussed. - Cr at baseline on adm - avoid nephrotoxins, renally dose meds - continue calcitriol 0.5 mcg/day - Cr 2.75, received pre-cath hydration, stable 2.7 Headache 05/02/2016 Moderate COPD (chronic obstr uctive pulmonary disease) ([facility]) 11/02/2015 Assessment & Plan (08/02/2022 [...] AM CDT): Hitesh TAVR 05/21 Followed by [facility], Dr. Medrano. CT TAVR [...] not a candidate for intervention (declined by [facility]) Assessment & Plan (05/17/2019 9:28 AM [...] AV. Referred to valve team by primary rock breaker Dr. Rowan. Seen 02/02 by valve team (Dr. Gerber) and CTS (Dr. Fernández) - TAVR TTE 02/02 with paradoxical low flow low gradient severe (AV mean gradient 25, peak gradient 38, ASHOK 0.7 cm2 using LVOT diameter of 1.9 cm) with hyperdynamic LV systolic function EF >75%. Mild TR with normal PASP. - scheduled for 02/27 outpatient C/C with AV assessment with gradients and IVUS [...] around 2.4 Dr Escalante is her home aerial gunner superintendent Assessment & Plan (02/23/2019 12:20 PM CDT): Pt above POW by 2 kg. Lasix on hold due to elevation in Creatinine Baseline creat is around 2.4 Dr Escalante is her home aerial gunner superintendent Agitation requiring sedation protocol 02/14/2019 02/23/2019 Acute [...] she had reactions to (?). Per OSH aerial gunner superintendent's note in Care Everywhere, pt tried metoprolol [...] started hydral 25 TID (for afterload reduction) Immunizations Name Administration Dates Next Due Hep [...] on file Legal Sex Female 4:06 AM LEATHER CARVER Gender Identity Female 01/16/2024 11:18 AM CDT Sexual Orientation Straight 01/16/2024 11 :18 AM CDT Last Filed Vital Signs Vital Sign Reading Time Taken Comments Blood Pressure 130/75 11/19/2024 7:05 PM LEATHER CARVER Pulse 71 11/19/2024 7:05 PM LEATHER CARVER Temperature 36.6 C (97.9 F) 11/19/2024 11:25 AM LEATHER CARVER Respiratory Rate 21 11/19/2024 7:05 PM LEATHER CARVER Oxygen Saturation 94% 11/19/2024 7:05 PM LEATHER CARVER Inhaled Oxygen Concentration - - Weight 52.8 kg (116 lb 6.5 oz) 11/19/2024 11:25 AM LEATHER CARVER Height 162.6 cm (5' 4 ) 11/19/2024 11:25 AM LEATHER CARVER Body Mass Index 19.98 11/19/2024 11:25 AM LEATHER CARVER Plan of Treatment Scheduled Procedures Name Priority Associated Diagnoses Date/Ti me TRANSPLANT KIDNEY ESRD (end stage renal disease) (CMS/HCC) (HCC) Medical Devices Implanted Type Area Mixed Livestock Farmer Device Identifier Shelf Expiration Date Model / Serial / Lot Angio-Seal Evolution 6fr Vascular Closure [id number] - [id number] - [id number] Implanted:Qty: 1 on 03/09/2022 by Luca Medrano MD at [facility] Collagen Right: Femoral Terumo Medical Pam 09/19/2022 [id number] / [id number] / [id number] Ter[employer]o [employer] Pam Angio-Seal Vip 6fr Closere Device [id number] - [id number] - [id number] Implanted:Qty: 1 on 07/24/2022 by Luca Medrano MD at [facility] Collagen [employer] Pam 03/20/2023 [id number] / [id number] / [id number] Ter[employer]o [employer] Pam Angio-Seal Vip 6fr Closere Device [id number] - [id number] - [id number] Implanted:Qty: 1 on 05/21/2024 at [facility] Collagen Right: Common Femoral Artery [employer] Pam 01/09/2025 [id number] / [id number] / [id number] Ter[employer]o [employer] Pam Angio-Seal Vip [place]-Plus 8fr .038in 70cm Hemostatic Latex Free 320906 - [id number] - [id number] Implanted:Qty: 1 on 05/21/2024 by Felipe Gerber MD at [facility] Collagen Right: Common Femoral Artery [employer] Pam 01/06/2025 [id number] / [id number] / [id number] Medtronic Cardiac Rhythm Mgmt 5076-52 Capsurefix Novus 6.2fr 2mm 52cm Bipolar Screw In Implantable Latex Free - [id number] - [id number] Implanted:Qty: 1 on 05/15/2019 [address] Lane Ramos MD PhD at [facility] Lead Medtronic Inc 03/11/2021 5076-52 / [id number] / Medtronic Cardiac Rhythm Mgmt 5076-45 Capsurefix Novus 6.2fr 2mm 45cm Bipolar Screw In Implantable - [id number] - [id number] Implanted:Qty: 1 on 05/15/2019 [address] Lane Ramos MD PhD at [facility] Lead Medtronic Inc 03/30/2021 5076-45 / [id number] / SocStock 2011-30-0252-01 Linear 7.5fr 6in Insertion Kit Hogshead Wrecker Introducer Sheath - [id number] Implanted:Qty: 1 on 02/10/2019 by Luca Medrano MD at [facility] Other - see comments SocStock 0684-00 0480-0 1 / / Description:IABP Medtronic Inc [id number] High View Curl Cath Beta-Cap Holden 15fr 57cm 2 Cuff Clamp Adapter - S0 - [id number] Implanted:Qty: 1 on 11/21/2021 by Carlos Kamara MD at [facility] Other - see comments N/A: Abdomen Medtronic Inc 11/30/2022 8811-31 3015 / 0 / [id number] Medtronic Cardiac Rhythm Mgmt W1dr01 Tereza Wirelessly Pacemaker Cardiac - [id number] - [id number] Implanted:Qty: 1 on 05/15/2019 by Lane Ramos MD PhD at [facility] Pacemaker Medtronic Inc [id number] 09/17/2020 [id number] / [id number] / Jamil Lifesciences Valve Aortic Trnscath Brown 3 Ultra Resilia 20mm [id number] - [id number] - [id number] Implanted:Qty: 1 on 05/21/2024 by Felipe Gerber MD at [facility] Prosthetic Valve N/A: Aortic Valve [employer]iences 02/27/2027 [id number] 20A / [id number] / Medtronic Inc Resolute Clive 4mm 2.1-2.7fr 12mm 140cm Rapid Exchange Radiopaque [id number] - [id number] - [id number] Implanted:Qty: 1 on 03/09/2022 by Luca Medrano MD at [facility] Stent Left: Coronary Medtronic Inc 12/06/2022 [id number] 012UX / [id number] / [id number] Description:LAD Biotronik Inc Stent Coronary De Rx Cocr Ors Msn 4.0x15mm 558346 - [id number] - [id number] Implanted:Qty: 1 on 07/24/2022 by Luca Medrano MD at [facility] Stent Biotronik Inc 09/05/2023 [id number] / [id number] / [id number] Surgery 4.0 X 15mm [place] Rx Coronary Stent [id number] - [id number] - [id number] Implanted:Qty: 1 on 11/19/2024 by Luca Medrano MD at [facility] Stent N/A: Saphenous Vein Graft [facility] Surgery 05/05/2027 [id number] / [id number] / [id number] Painter Vascular System Closure Repair Femoral Artery Suture Mediated Perclose Prostyle 45787-14 - [id number] - [id number] Implanted:Qty: 1 on 05/21/2024 by Felipe Gerber MD at [facility] Vascular Closure Device Left: Common Femoral Artery Painter Vascular 02/17/2026 15037-6 3 / [id number] / [id number] [employer] Pam Angio-Seal Vip 6fr Closere Device [id number] - [id number] - [id number] Implanted:Qty: 1 on 11/19/2024 by Lcua Medrano MD at [facility] Vascular Closure Device N/A: Saphenous Vein Graft [employer] Pam 04/29/2025 105162 / [id number] / [id number] [employer] Pam [id number] Supple Ronna-Guard [place] Processing 4x4cm Patch Cardiovascular - [id number] - [id number] Implanted:Qty: 1 on 02/11/2019 by Christopher Holman MD at [facility] N/A: Chest [employer] Pam 06/03/2023 [id number] / [id number] 04-0010 / [id number] Jamil [employer] [id number] Certitude Brown 3 Atrion 18fr Transcatheter Introducer Crimper - [id number] - [id number] Implanted:Qty: 1 on 02/11/2019 by Christopher Holman MD at [facility] N/A: Heart Jamil [employer] [id number] [id number] / [id number] / Medtronic Inc [id number] High View Curl Cath Beta-Cap Holden 15fr 57cm 2 Cuff Clamp Adapter - [id number] Implanted:Qty: 1 on 12/27/2021 by Margarita Montoya MD at [facility] N/A: Abdomen Medtronic Inc 10/14/2023 8811-31 3015 / / Procedures Procedure Name Priority Date/Time Associated Diagnosis Comments EGFR Routine 11/19/2024 6:00 PM LEATHER CARVER DIFFERENTIAL AUTO Routine 11/19/2024 6:0 0 PM LEATHER CARVER CBC WITH AUTO DIFFERENTIAL Routine 11/19/2024 6:00 PM LEATHER CARVER BASIC METABOLIC PANEL Routine 11/19/2024 6:00 PM LEATHER CARVER POCT ACTIVATED CLOTTING TIME, LOW RANGE Routine 11/19/2024 4:42 PM LEATHER CARVER POCT ACTIVATED CLOTTING TIME, LOW RANGE Routine 11/19/2024 3:23 PM LEATHER CARVER LEFT HEART CATHETERIZATION WITH CORONARY ANGIOGRAPHY AND WITH AND WITHOUT LEFT VENTRICULOGRAM Routine 11/19/2024 2:50 PM LEATHER CARVER Chest pain, unspecified type POCT ACTIVATED CLOTTING TIME, LOW RANGE Routine 11/19/2024 2:49 PM LEATHER CARVER POCT ACTIVATED CLOTTING TIME, LOW RANGE Routine 11/19/2024 2:30 PM LEATHER CARVER POCT ACTIVATED CLOTTING TIME, LOW RANGE Routine 11/19/2024 2:01 PM LEATHER CARVER TYPE AND SCREEN Timed 11/19/2024 2:01 PM LEATHER CARVER POCT ACTIVATED CLOTTING TIME, LOW RANGE Routine 11/19/2024 1:53 PM LEATHER CARVER POCT ACTIVATED CLOTTING TIME, LOW RANGE Routine 11/19/2024 1:49 PM LEATHER CARVER POCT OXYHEMOGLOBIN - DEVICE Routine 11/19/2024 1:27 PM LEATHER CARVER POCT OXYHEMOGLOBIN - DEVICE Routine 11/19/2024 1:26 PM LEATHER CARVER POCT OXYHEMOGLOBIN - DEVICE Routine 11/19/2024 1:26 PM LEATHER CARVER POC BLOOD GAS AND CHEMISTRIES, ARTERIAL Routine 11/19/2024 11:45 AM LEATHER CARVER ECG 12-LEAD Routine 11/19/2024 11:16 AM LEATHER CARVER SCAN - LABS 11/17/2024 CBC WITH AUTO DIFFERENTIAL Routine 11/16/2024 1:57 PM LEATHER CARVER S/P TAVR (transcatheter aortic valve replacement) Chest pain, unspecified type BASIC METABOLIC PANEL Routine 11/16/2024 1:57 PM LEATHER CARVER S/P TAVR (transcatheter aortic valve replacement) Chest pain, unspecified type TRANSTHORACIC ECHO (TTE) COMPLETE W DOPPLER/CF W CONTRAST Routine 11/10/2024 4:05 PM LEATHER CARVER Acute diastolic heart failure (CMS/HCC) (HCC) HLA ANTIBODY SCREEN BY PRA OR SAB PER SCHEDULE (CLASS I AND CLASS II) Routine 11/05/2024 10:00 AM LEATHER CARVER ESRD (end stage renal disease) (CMS/HCC) (HCC) HLA ANTIBODY SCREEN - SAB (CLASS I AND CLASS II) Routine 09/20/2024 10:00 AM LEATHER CARVER ESRD (end stage renal disease) (CMS/HCC) (HCC) HLA ANTIBODY SCREEN BY PRA OR SAB PER SCHEDULE (CLASS I AND CLASS II) Routine 09/20/2024 10:00 AM LEATHER CARVER ESRD (end stage renal disease) (CMS/HCC) (HCC) HEPATITIS C ANTIBODY Routine 03/06/2023 10:19 AM CDT ESRD (end stage renal disease) (CMS/HCC) (HCC) from Last 3 Months or Most Recently Relevant to Health Maintenance Results * (ABNORMAL) eGFR (11/19/2024 6:00 PM LEATHER CARVER) eGFR 3(L) >=60 mL/min/1. 73 m2 Comment: [...] last reviewed 2021. Blood 11/19/2024 6:00 PM LEATHER CARVER 11/19/2024 6:10 PM LEATHER CARVER us Luca Medrano MD LAB BLOOD ORDERABLES Final R esult [facility] [place] [address] * (ABNORMAL) Differential, auto (11/19/2024 6:00 PM LEATHER CARVER) Neutrophil abs 6.5 1.5 - 6.5 K/cumm Imm gran abs 0.0 0.0 - 0.1 K/cumm [facility] Lymphocyte abs 0.5(L) 0.8 - 3.3 K/cumm [facility] Monocyte abs 0.3 0.2 - 0.8 K/cumm [facility] Eosinophil abs 0.1 0.0 - 0.5 K/cumm [facility] Basophil abs 0.0 0.0 - 0.1 K/cumm [facility] Neutrophil pct 87.7 % [facility] Comment: Interpretive Data Percent cell count reference ranges are not reported, since discordance with absolute values may lead to misinterpretation of CBC data. Current Interpretive Data was last revised on 2018. Imm gran pct 0.3 % [facility] Comment: Interpretive Data Percent cell count reference ranges are not reported, since discordance with absolute values may lead to misinterpretation of CBC data. Current Interpretive Data was last revised on 2018. Lymphocyte pct 6.8 % [facility] Comment: Interpretive Data Percent cell count reference ranges are not reported, since discordance with absolute values may lead to misinterpretation of CBC data. Current Interpretive Data was last revised on 2018. Monocyte pct 3.4 % [facility] Comment: Interpretive Data Percent cell count reference ranges are not reported, since discordance with absolute values may lead to misinterpretation of CBC data. Current Interpretive Data was last revised on 2018. Eosinophil pct 1.5 % [facility] Comment: Interpretive Data Percent cell count reference ranges are not reported, since discordance with absolute values may lead to misinterpretation of CBC data. Current Interpretive Data was last revised on 2018. Basophil pct 0.3 % [facility] Comment: Interpretive Data Percent cell count reference ranges are not reported, since discordance with absolute values may lead to misinterpretation of CBC data. Current Interpretive Data was last revised on 2018. Blood 11/19/2024 6:00 PM LEATHER CARVER 11/19/2024 6:04 PM LEATHER CARVER us Luca Medrano MD LAB BLOOD ORDERABLES Final R esult [facility] [place] [address] * (ABNORMAL) CBC with auto differential (11/19/2024 6:00 PM LEATHER CARVER) WBC 7.4 3.8 - 9.9 K/cumm Hgb 11.6(L) 11.9 - 15.5 g/dL [facility] Hct 36.7 35.6 - 45.5 % [facility] Plt 150 150 - 400 K/cumm [facility] MPV 10.6 9.1 - 12.3 fL [facility] RBC 4.22 3.90 - 5.20 M/cumm [facility] MCV 87.0 81.3 - 96.4 fL [facility] MCH 27.5 27.1 - 33.3 pg [facility] MCHC 31.6(L) 32.3 - 35.7 g/dL [facility] RDW CV 14.6 11.1 - 14.9 % [facility] RDW SD 46.1 35.7 - 48.1 fL [facility] NRBC abs 0.00 0.00 - 0.01 K/cumm [facility] Blood 11/19/2024 6:00 PM LEATHER CARVER 11/19/2024 6:04 PM LEATHER CARVER us Luca Medrano MD LAB BLOOD ORDERABLES Final R esult [facility] Department [place] [address] * (ABNORMAL) Basic metabolic panel (11/19/2024 6:00 PM LEATHER CARVER) [facility] Sodium 130(L) 135 - 145 mmol/L Potassium, pl 4.3 3.3 - 4.9 mmol/L [facility] Chloride 90(L) 97 - 110 mmol/L [facility] CO2 23 22 - 32 mmol/L [facility] Anion gap 17(H) 2 - 15 mmol/L [facility] BUN 57(H) 6 - 25 mg/dL [facility] Creatinine 13.87(H) 0.60 - 1.10 mg/dL [facility] Glucose 150 70 - 199 mg/dL [facility] Comment: Interpretive Data Fasting glucose >/= [...] 2022. Calcium 6.9(L) 8.5 - 10.3 mg/dL [facility] Blood 11/19/2024 6:00 PM LEATHER CARVER 11/19/2024 6:04 PM LEATHER CARVER Luca Medrano MD LAB BLOOD ORDERABLES Final R esult Performing Organization Address City/[facility] Co de Phone Number [facility] [place] [address] * (ABNORMAL) POCT Activated clotting time, low range (11/19/2024 4:42 PM LEATHER CARVER) ACT 171(H) 123 - 168 sec POC Performer [id number] [facility] POC Device Number [id number] [facility] Blood 11/19/2024 4:42 PM LEATHER CARVER 11/19/2024 4:42 PM LEATHER CARVER us Luca Medrano MD LAB POCT ORDERABLES - DEVICE Final Result Performing Organization Address City/[facility]/ZIP Co de Phone Number [facility] [place] [address] * (ABNORMAL) POCT Activated clotting time, low range (11/19/2024 3:23 PM LEATHER CARVER) ACT 266(H) 123 - 168 sec POC Performer [id number] [facility] POC Device Number [id number] [facility] Blood 11/19/2024 3:23 PM LEATHER CARVER 11/19/2024 3:23 PM LEATHER CARVER us Luca Medrano MD LAB POCT ORDERABLES - DEVICE Final Result [facility] Department [place] [address] * LEFT HEART CATHETERIZATION WITH CORONARY ANGIOGRAPHY AND WITH AND WITHOUT LEFT VENTRICULOGRAM (11/19/2024 2:50 PM LEATHER CARVER) Anatomical Region Laterality Modality X-Ray Angiograph y Impressions 11/19/2024 4:18 PM LEATHER CARVER Very severe stenosis of the vein graft [...] attempt intervention again. I would suggest a [place] 1 0 guiding catheter and consideration for shockwave versus atherectomy. I was present during the entire procedure and personally dictated or confirmed the above report. Luca Medrano MD Narrative 11/19/2024 4:18 PM LEATHER CARVER Procedure: CORONARY ANGIOGRAM / RIGHT HEART CATHETERIZATION/percutaneous coronary intervention Patient: Estuardo Copeland is a 54 y.o. female : 1970 MR number: [id number] Date of Service: 11/19/2024 Polisher Apprentice: Luca Medrano MD Fellow: Josesito Pabon MD [...] obtained. The patient was brought to the skill labor and placed on the table Bilateral groins [...] coronary artery angiogram performed using a 6 Romanian JR4 catheter Right heart catheterization preformed with VANI Sheridan Percutaneous coronary intervention performed on the Proximal saphenous vein graft to the LAD. This was an ACC/AHA Type C. Initial Lesion Length 12mm and final lesion Length 15mm. Initial KAROLINA Flow 3 with visible thrombus present Final KAROLINA Flow 3. Equipment used: 6 3DRC, [employer] IVUS Catheter, scion blue wire, 0.9 mm laser atherectomy catheter, 2 5 x 15 NC emerge balloon, a 3 0 x 12 mm AngioSculpt balloon, 4 0 by 15 NC emerge balloon, 4 0 x 15 resolute drug-eluting stent, 4 5 x 12 mm NC emerge balloon Attempted intervention on the ostial left main equipment used was a 6 Romanian JL 3.5 guiding catheter, she on black [...] than 300. We took up a 6 Romanian 3D RC that sat reasonably well in [...] or perforation. We then took our 6 Romanian JL 3.5 guiding catheter attempted to intubate [...] right femoral artery and placed a 6 Romanian Angio-Seal. Manual compression was performed on the venous sheath. COMPLICATIONS: None DIAGNOSTIC Luca Medrano MD CV CARDIAC CATH PROCEDURES F inal Result * (ABNORMAL) POCT Activated clotting time, low range (11/19/2024 2:49 PM LEATHER CARVER) ACT 260(H) 123 - 168 sec POC Performer [id number] [facility] POC Device Number [id number] [facility] Blood 11/19/2024 2:49 PM LEATHER CARVER 11/19/2024 2:49 PM LEATHER CARVER Luca Medrano MD LAB POCT ORDERABLES - DEVICE Final Result Performing Organization Address [facility] Co de Phone Number [facility] [place] [address] * (ABNORMAL) POCT Activated clotting time, low range (11/19/2024 2:30 PM LEATHER CARVER) ACT 385(H) 123 - 168 sec POC Performer [id number] [facility] POC Device Number [id number] [facility] Blood 11/19/2024 2:30 PM LEATHER CARVER 11/19/2024 2:30 PM LEATHER CARVER Luca Medrano MD LAB POCT ORDERABLES - DEVICE Final Result Performing Organization Address City/[facility]/ZIP Co de Phone Number [facility] Department [place] [address] * (ABNORMAL) POCT Activated clotting time, low range (11/19/2024 2:01 PM LEATHER CARVER) ACT >400(H) 123 - 168 sec POC Performer [id number] [facility] POC Device Number [id number] [facility] Blood 11/19/2024 2:01 PM LEATHER CARVER 11/19/2024 2:01 PM LEATHER CARVER us Luca Medrano MD LAB POCT ORDERABLES - DEVICE Final Result Performing Organization Address [facility]/[place] [address] * Type and screen (11/19/2024 2:01 PM LEATHER CARVER) ABO Rh B Positive Jorge A, indirect Negative [facility] Blood 11/19/2024 2:01 PM LEATHER CARVER 11/19/2024 2:14 PM LEATHER CARVER Narrative [facility] - 11/19/2024 3:08 PM LEATHER CARVER Has the patient had Daratumumab or Isatuximab in the past 6 months?->Unknown us Luca Medrano MD LAB BLOOD BANK TEST ORDERABL ES Final Result Performing Organization Address City/[facility] Co de Phone Number [facility] [place] [address] * (ABNORMAL) POCT Activated clotting time, low range (11/19/2024 1:53 PM LEATHER CARVER) ACT >400(H) 123 - 168 sec POC Performer [id number] [facility] POC Device Number [id number] [facility] Blood 11/19/2024 1:53 PM LEATHER CARVER 11/19/2024 1:53 PM LEATHER CARVER Luca Medrano MD LAB POCT ORDERABLES - DEVICE Final Result Performing Organization Address [facility] Co de Phone Number [facility] [place] [address] * (ABNORMAL) POCT Activated clotting time, low range (11/19/2024 1:49 PM LEATHER CARVER) ACT 78(L) 123 - 168 sec POC Performer [id number] [facility] POC Device Number [id number] [facility] Blood 11/19/2024 1:49 PM LEATHER CARVER 11/19/2024 1:49 PM LEATHER CARVER Luca Medrano MD LAB POCT ORDERABLES - DEVICE Final Result Performing Organization Address [facility] de Phone Number [facility] [place] [address] * (ABNORMAL) POCT oxyhemoglobin (11/19/2024 1:27 PM LEATHER CARVER) CYLINDER DIE MACHINE HELPER Oxyhemoglobin 91.6 >=65.0 % CYLINDER DIE MACHINE HELPER Hemoglobin 11.2(L) 11.9 - 15.5 g/dL [facility] CYLINDER DIE MACHINE HELPER O2 content 14.3(L) 15.0 - 22.0 Vol % [facility] Anatomic Site aPOC Aorta [facility] Blood 11/19/2024 1:27 PM LEATHER CARVER 11/19/2024 1:27 PM LEATHER CARVER us Luca Medrano MD LAB POCT ORDERABLES - DEVICE Final Result Performing Organization Address [facility] Co de Phone Number [facility] [employer] [place], [place] [id number] * (ABNORMAL) POCT oxyhemoglobin (11/19/2024 1:26 PM LEATHER CARVER) CYLINDER DIE MACHINE HELPER Oxyhemoglobin 56.2(L) >=65.0 % CYLINDER DIE MACHINE HELPER Hemoglobin 11.0(L) 11.9 - 15.5 g/dL [facility] CYLINDER DIE MACHINE HELPER O2 content 8.6(L) 15.0 - 22.0 Vol % [facility] Anatomic Site aPOC Pulm Artery [facility] Blood 11/19/2024 1:26 PM LEATHER CARVER 11/19/2024 1:26 PM LEATHER CARVER Luca Medrano MD LAB POCT ORDERABLES - DEVICE Final Result Performing Organization Address [facility] de Phone Number [facility] [place] [address] * (ABNORMAL) POCT oxyhemoglobin (11/19/2024 1:26 PM LEATHER CARVER) [facility] CYLINDER DIE MACHINE HELPER Oxyhemoglobin 56.6(L) >=65.0 % CYLINDER DIE MACHINE HELPER Hemoglobin 10.9(L) 11.9 - 15.5 g/dL [facility] CYLINDER DIE MACHINE HELPER O2 content 8.6(L) 15.0 - 22.0 Vol % [facility] Anatomic Site aPOC Pulm Artery [facility] Blood 11/19/2024 1:26 PM LEATHER CARVER 11/19/2024 1:26 PM LEATHER CARVER Luca Medrano MD LAB POCT ORDERABLES - DEVICE Final Result Performing Organization Address [facility] de Phone Number [facility] [place] [address] * POC Blood Gas and Chemistries, Arterial - (11/19/2024 11:45 AM LEATHER CARVER) [facility] K POC 3.7 3.3 - 4.9 mmol/L Comment: Interpretive Data Not all point of care methods assess for hemolysis. Confirm with instrument and retest K+ if not consistent with clinical signs and symptoms. Current Interpretive Data was last revised on 2024. Blood 11/19/2024 11:4 5 AM LEATHER CARVER 11/19/2024 11:45 AM LEATHER CARVER Luca Medrano MD LAB POCT ORDERABLES - DEVICE Final Result Performing Organization Address [facility]/ZIP Co de Phone Number [facility] Department [place] [address] * ECG 12 lead (11/19/2024 11:16 AM LEATHER CARVER) Ventricular Rate EKG/Min 90 BPM [facility] QRS-Interval (MSEC) 84 ms [facility] QT-Interval (MSEC) 404 ms [facility] QTc 494 ms [facility] R [place] 6 degrees [facility] T [place] 144 degrees [facility] Diagnosis Atrial fibrillation Electronic atrial pacemaker Minimal voltage criteria for LVH, may be normal variant ( Maben product ) Septal infarct , age undetermined T wave abnormality, consider lateral ischemia Abnormal ECG Confirmed by HARJINDER HANDY M.D ([id number]) on 11/19/2024 3:59:31 PM [facility] 11/19/2024 11:1 6 AM LEATHER CARVER 11/19/2024 3:59 PM LEATHER CARVER us Luca Medrano MD ECG ORDERABLES Final Result Performing Organization Address [facility] de Phone Number [facility] * SCAN - LABS (11/17/2024) us Provider Scanning Final Result * CBC with auto differential (11/16/2024 1:57 PM LEATHER CARVER) WBC 7.2 3.4 - 10.8 x10E3/uL [facility] [...] [facility] - 01 Blood 11/16/2024 1:57 PM LEATHER CARVER 11/16/2024 Narrative [facility] - 11/17/2024 8:14 AM LEATHER CARVER Performed at: [address] [id number] Cigarette Machine Filler: Marco Antonio Paiz PhD, Phone: [phone] us Luca Medrano MD LAB BLOOD ORDERABLES Final R esult [facility] * (ABNORMAL) Basic metabolic panel (11/16/2024 1:57 PM LEATHER CARVER) [facility] Glucose 88 70 - 99 mg/dL [facility] [...] [facility] - 01 Blood 11/16/2024 1:57 PM LEATHER CARVER 11/16/2024 Narrative [facility] - 11/17/2024 12:09 PM LEATHER CARVER Performed at: [place] [id number] Cigarette Machine Filler: Marco Antonio Paiz PhD, Phone: [phone] us Luca Medrano MD LAB BLOOD ORDERABLES Final R esult [facility] - * TRANSTHORACIC ECHO (TTE) COMPLETE W DOPPLER/CF W CONTRAST (11/10/2024 4:05 PM LEATHER CARVER) LV EF % CONS SCIMAGE Anatomical Region Laterality Modality Ultrasound 11/10/2024 2:55 PM LEATHER CARVER Narrative 11/11/2024 9:34 AM LEATHER CARVER [facility] Cardiac Diagnostic Lab [address] , [address] [place] [address] Transthoracic Echocardiographic Report Patient Name: ESTUARDO COPELAND M : 1970 (54y ) Gender: F Study Date: 11/10/2024 02:55:48 PM Ht(Inch): 64 Wt(Lb): 115.08 BSA: 1.54 Funeral Pre Arrangement Specialist: GERA Wells Location: [facility] Order Provider: LUCA MEDRANO Heart Rate: 76 BMI: 19.75 BP: 94/60 Quality: Technically difficult study due to limited acoustic windows. Ref Provider: LUCA MEDRANO PROCEDURES: Echocardiographic Report: ([id number], [id number], [id number]) Transthoracic complete echo with strain imaging and contrast, 2D, spectral and tissue Doppler, color flow Doppler, M- mode. Additional Procedures: ([id number]) 3D echocardiographic imaging from [employer]. Contrast: [...] [ 46.00 - 106.00 ] AI Decel Jenkins 1.58 m/s2 ESV Mod 2C 14.03 ml [...] By: Silver Levin MD 11/11/2024 9:32:57 AM LEATHER CARVER Electronically Signed By: Silver Levin MD 11/11/2024 9:32:57 AM LEATHER CARVER Procedure Note Silver Levin MD - 11/11/2024 [facility] Cardiac Diagnostic Lab [address] , [address] [place] [address] Transthoracic Echocardiographic Report Patient Name: ESTUARDO COPELAND M : 1970 (54y ) Gender: F Study Date: 11/10/2024 02:55:48 PM Ht(Inch): 64 Wt(Lb): 115.08 BSA: 1.54 Funeral Pre Arrangement Specialist: GERA Wells Location: [facility] Order Provider:LUCA MEDRANO Heart Rate: 76 BMI: 19.75 BP: 94/60 Quality: Technically difficult studydue to limited acoustic windows. Ref Provider: LUCA MEDRANO PROCEDURES: Echocardiographic Report: ([id number], [id number], [id number]) Transthoracic completeecho with strain imaging and contrast, 2D, spectral and tissue Doppler, color flow Doppler,M- mode. Additional Procedures: ([id number]) 3D echocardiographic imaging from [employer] Contrast: 0.4 ml Optison Administered, (2.6 ml [...] EDV Mod 4C 60.63 ml AI Decel Bpmu1710.11 sec EDV Mod BP 56.21 ml [ 46.00 - 106.00 ] AI Decel Slope1.58 m/s2 ESV Mod 2C 14.03 ml AI RFT110.67 msec ESV Mod 4C 21.21 ml MV [...] cm LA Length 4C 5.48 cm MV DCM298.85 msec [ 20.00 - 100.00 ] LA Volume 2C 34.1 ml MVA PHT2.18 cm2 LA Volume 4C 31.3 ml MV Decel Cteo526.53 msec [ 104.00 - 258.00 ] LA [...] cm [ 2.70 - 3.70 ] MR YKG296.8 cm Ao Root Index 1.32 cm/m2 MR [...] By: Silver Levin MD 11/11/2024 9:32:57 AM LEATHER CARVER Electronically Signed By: Silver Levin MD 11/11/2024 9:32:57 AM LEATHER CARVER Luca Medrano MD CV ECHO PROCEDURES Final Res ult * HLA Antibody Screen by PRA or SAB per Schedule (Class I and Class II) (11/05/2024 10:00 AM LEATHER CARVER) Blood 11/05/2024 10:0 0 AM LEATHER CARVER Narrative [facility] - LEATHER CARVER Sample received in lab and stored. No testing performed at this time. Salina Hector MD LAB BLOOD ORDERABLES Final Resul t Performing Organization Address City/[facility]/ZIP Co de Phone Number [facility] * HLA Antibody Screen by PRA or SAB per Schedule (Class I and Class II) (09/20/2024 10:00 AM LEATHER CARVER) Blood 09/20/2024 10:0 0 AM LEATHER CARVER Narrative [facility] - LEATHER CARVER Sample received in lab. Single Antigen Antibody Screen ordered. Salina Hector MD LAB BLOOD ORDERABLES Final Resul t Performing Organization Address City/[facility] Co de Phone Number [facility] * HLA Antibody Screen - SAB (Class I and Class II) (09/20/2024 10:00 AM LEATHER CARVER) Class I Treatment EDTA [facility] Class I [...] DPB1*01:01, DPB1*03:01 [facility] 09/20/2024 10:0 0 AM LEATHER CARVER 09/24/2024 12:48 PM LEATHER CARVER Narrative [facility] - 09/24/2024 12:48 PM LEATHER CARVER Single-antigen HLA antibody screen is performed on serum samples using a method developed and validated by the [facility] laboratory based on an FDA-approved IVD kit (LABScreen Single-Antigen, [employer], [place], [place]). All patient serum samples are pretreated with EDTA before the screen to prevent complement interference. Additional serum treatments, such as adsorption and DTT treatment, may be performed as indicated. Interpretive comments: Low risk: MFI [id number]. Moderate risk: MFI [id number]. Increased risk: MFI >/= 5000. The presence [...] antigens to avoid. Testing performed at the [facility], [address] [place] [address], 5th floor, [facility], [place], [address]. [facility] # [id number]. Rosa Millan, Ph.D., Feller Hand, HLA Laboratory Wilmer Prescott M.D., Ph.D., Medication Care Manager, HLA Laboratory Alma Payton, Ph.D., CLIA Medication Care Manager, [facility] Clinical Laboratories Current methodology and interpretive comments last revised on 11/15/2022. us Salina Hector MD LAB BLOOD ORDERABLES Final Resul t [facility] * Hepatitis C antibody (03/06/2023 10:19 AM CDT) Hep C Ab Nonreactive Nonreactive [facility] Comment:Antibodies to HCV no t detected. Does NOT exclude the possibility of recent exposure to HCV. Current interpretive data was last revised on 22 Blood 03/06/2023 10:1 9 AM CDT 03/06/2023 10:38 AM CDT us Maria Fernanda Bryant MD LAB MICROBIOLOGY - GENERAL ORDERABLES Final Result [facility] Department [place] [address] from Last 3 Months or Most Recently Relevant to Health Maintenance Insurance [facility] H[facility]/PPO Address: [facility] [address] [place] [address] MEDICARE [facility] H[facility]/PPO Address: [address] [address] [place] [address] [facility] H[facility]/PPO Address: [address] [address] [place] [address] MEDICARE MEDICARE [facility] CHOICE [facility]US [facility] HMO/PPO Address: [address] [address] [place] [address] [employer] [facility] Advance Directives For more information, please contact: [phone] * Full Code (Latest Code Status on [...] 7:30 PM 07/25/2022 6:47 PM Care Teams Wet Trimmer Relationship Specialty Start Date End Date Pal Downey DO PCP - General Internal Medicine 01/25/21 Quinton Rowan MD Referring Physician Cardiology 01/09/19 Tami Flores, TONO [address] [address] Registered Nurse Lean Manager 01/25/21 Cricket Escalante MD [address] [address] Referring Physician Nephrology 03/24/21 Gael Sprague MD PhD [address] [address] Fellow Endocrinology Diabetes & Metabolism 03/24/21 Brad Turner MD [address] [address] Consulting Physician Obstetrics and Gynecology 03/24/21 Margarita Montoya MD [address] [facility] [address] [address] Consulting Physician Trauma Surgery 12/27/21 Luca Medrano MD [address] [facility] [address] [place] [address] Consulting Physician Cardiology 08/03/22 Pb Galloway MD [address] [facility] [id number] [place] [address] Cardiothoracic Surgery 05/25/24 Felipe Gerber MD [address] [facility] [id number] [place] [address] Consulting Physician Cardiology 05/25/24
--- OUTSIDE RECORDS SUMMARY | 2024-11-26 21:08 | XMS_ITS | Patient Health Summary ---
Author Organization [facility] Address [address] [place] [address] Care Team Providers Care Metalizer Field Operation Name Role Phone Danielle Hawkins Primary Care Provider Unavailabl e Note from [facility],non-owned Affiliates and Associated Physician Practices is amultiple site organization consisting of ambulatory clinics and hospital sitesin [place], [place], [place] and [place]. This disclosure is being madepursuant to the Care Everywhere program and may not contain all information available regarding this patient. Last updated 18.[facility] Allergies * Ampicillin(Anaphylaxis) -High Criticality * Ciprofloxacin(Nausea) -Low Criticality * Penicillamine(Anaphylaxis) -High Criticality Medications * Be aware that medications may not be up to date on this document. Alwaysverify current medications with the patient. * raNITIdine (ZANTAC) 150 MG tablet(Started 09/06/2016) Take by mouth. * lovastatin (MEVACOR) 20 MG tablet(Started 05/02/2016) 5 refills left Active Problems Problem Noted Date Diagnosed Date [...] Comments Blood Pressure 145/91 09/06/2016 9:59 AM [employer] ROBOTICIST Pulse 79 09/06/2016 9:59 AM [employer] ROBOT[employer]IST Temperature 36.4 C (97.5 F) 12/23/2015 3:20 PM [employer] ROBOT[employer]IST Respiratory Rate 12 09/06/2016 9:59 AM [employer] ROBOTICIST Oxygen Saturation 100% 12/23/2015 3:20 PM [employer] ROBOTICIST Inhaled Oxygen Concentration - - Weight 60.8 kg (134 lb) 09/06/2016 9:59 AM [employer] ROBOTICIST Height 162.6 cm (5' 4 ) 09/06/2016 9:59 AM [employer] ROBOT[employer]IST Body Mass Index 23 09/06/2016 9:59 AM [employer] ROBOTICIST Procedures * BASIC METABOLIC PANEL (CALCIUM TOTAL)(Performed 12/14/2015) * T4 FREE(Performed 10/07/2015) * TSH(Performed 10/07/2015) * LAB HISTORICAL RESULTS-ONBASE(Performed 10/05/2015) * CALCIUM IONIZED WHOLE BLOOD(Performed 08/13/2015) * CALCIUM IONIZED WHOLE BLOOD(Performed 08/13/2015) * CALCIUM IONIZED WHOLE BLOOD(Performed 08/12/2015) * CALCIUM IONIZED WHOLE BLOOD(Performed 08/12/2015) * CALCIUM IONIZED WHOLE BLOOD(Performed 08/12/2015) * CALCIUM IONIZED WHOLE BLOOD(Performed 08/12/2015) * PTH POST-OP OR ONLY(Performed 08/11/2015) * CALCIUM IONIZED WHOLE BLOOD(Performed 08/11/2015) * PATHOLOGY TISSUE(Performed 08/11/2015) * TYPE + SCREEN PANEL(Performed 08/11/2015) * PATHOLOGY/GENETICS HISTORICAL-ONBASE(Performed 08/11/2015) * BASIC METABOLIC PANEL (CALCIUM TOTAL)(Performed 07/29/2015) * CBC W AUTO DIFFERENTIAL(Performed 07/29/2015) * CBC W AUTO DIFFERENTIAL(Performed 07/29/2015) * EKG 12-LEAD(Performed 07/29/2015) Results * (ABNORMAL) BASIC METABOLIC PANEL (CALCIUM TOTAL) (12/14/2015 7:25 AM [employer] ROBOTICIST) Only the most recent of2 resultswithin the time period is included. BUN 21 7 - 26 mg/dL [facility] Creatinine 1.3(H) 0.6 - 1.2 mg/dL [facility] Sodium 140 136 - 145 mmol/L [facility] Potassium 3.6 3.5 - 4.5 mmol/L [facility] Chloride 105 98 - 107 mmol/L [facility] CO2 26 22 - 29 mmol/L [facility] Glucose 85 70 - 115 mg/dL [facility] Calcium 8.2(L) 8.4 - 10.2 mg/dL [facility] Anion Gap 13 8 - 18 [facility] BUN/Creatinine Ratio 16 7 - 23 [facility] Osmolality Calculated 278 270 - 300 mOsm/kg [facility] eGFR 44(L) >60 mL/min/1.7 3 m2 [facility] Blood specimen (specimen) BLOOD SPECIMEN / Unknown 12/14/2015 7:25 AM [employer] ROBOTICIST 12/14/2015 7:36 AM [employer] ROB[employer]IST Shabana Mancilla MD LAB - CHEMISTRY RADHIKA NUÑEZ Performing Organization Address [facility]/ZIP Co de Phone Number [address] [phone] * TSH (10/07/2015 9:18 AM [employer] ROBOT[employer]IST) TSH 0.722 0.350 - 4.940 uIU/mL [facility] Blood specimen (specimen) BLOOD SPECIMEN / Unknown 10/07/2015 9:18 AM [employer] ROBOTICIST 10/07/2015 9:24 AM [employer] ROB[employer]IST Yue Cummings PRINCIPAL SECRETARY-MOCCASIN SEWER LAB - CHEMIS TRY ORDERABLES Performing Organization Address [facility] Co de Phone Number [address] [phone] * T4 FREE (10/07/2015 9:18 AM [employer] ROBOTICIST) T4 Free 1.5 0.7 - 1.5 ng/dL [facility] Blood specimen (specimen) BLOOD SPECIMEN / Unknown 10/07/2015 9:18 AM [employer] ROBOTICIST 10/07/2015 9:24 AM [employer] ROB[employer]ICIST Yue Cummings PRINCIPAL SECRETARY-MOCCASIN SEWER LAB - CHEMIS TRY ORDERABLES Performing Organization Address [facility]/ZIP Co de Phone Number [address] [phone] * LAB HISTORICAL RESULTS-ONBASE (10/05/2015) 10/05/2015 Narrative [facility] - 10/06/2015 11:18 AM [employer] ROBOT[employer]IST Historical Provider LAB - CHEMISTRY Abhi DE LA FUENTE Performing Organization Address City/[facility] Co de Phone Number [facility] [address] * (ABNORMAL) CALCIUM IONIZED WHOLE BLOOD (08/13/2015 5:14 AM CDT) Only the most recent of7 resultswithin the time period is included. Ionized Calcium Whole Blood 1.13 mmol/L [facility] Adjusted Ionized Calcium 1.12(L) 1.19 - 1.34 mmol/L [facility] pH Whole Blood 7.38 7.35 - 7.45 [facility] Blood specimen (specimen) BLOOD SPECIMEN / Unknown 08/13/2015 5:14 AM CDT 08/13/2015 5:24 AM CDT Ángel Jones MD LAB - CHEMISTRY RADHIKA NUÑEZ Performing Organization Address [facility] Co de Phone Number [address] [phone] * (ABNORMAL) PTH POST-OP OR ONLY (08/11/2015 10:04 AM CDT) PTH Post-Operative 10.2(L) See Comment pg/mL [facility] Comment: A decrease in cirulating PTH of 50% or more, ten minutes post-resection, signals successful removal of the abnormally secreting parathyroid tissue. Blood specimen (specimen) BLOOD SPECIMEN / Unknown 08/11/2015 10:04 AM CDT 08/11/2015 10:10 AM CDT Ángel Jones MD LAB - CHEMISTRY RADHIKA NUÑEZ Performing Organization Address City/[facility]/ZIP Co de Phone Number [address] [phone] * PATHOLOGY TISSUE (08/11/2015 9:03 AM CDT) Surgical Pathology Tissue CLINICAL HISTORY: Thyroid neoplasm. OPERATIVE PROCEDURE: Total thyroidectomy with RLN. FINAL DIAGNOSIS: THYROID, LEFT LOBE, THYROID LEFT LOBECTOMY (A): - NODULAR HYPERPLASIA THYROID, RIGHT LOBE, THYROID RIGHT LOBECTOMY (B): - NODULAR HYPERPLASIA PARATHYROID, RIGHT, THYROID RIGHT LOBECTOMY (B): - HYPERCELLULAR PARATHYROID GROSS DESCRIPTION: The specimens are received fixed in formalin in two containers for gross and microscopic examination, both labeled with the patient's name, Ginger Marshall . Specimen A, thyroid left lobe , consists of a portion of ibrd, lobulated mar thyroid measuring 5.3 x 3.8 x 2.4 cm, and weighing 17.4 grams. The specimen is oriented with one stitch on the specimen on the superior part of the specimen. On the external surface of the specimen there are two white nodules. The entire external surface is inked in black. The larger nodule measures 1.4 x 1.0 x 1.0 cm. The smaller nodule measures 1.4 x 0.6 x 0.5 cm. These two nodules are attached to the medial portion of the left lobe. The isthmus is attached to the medial surface of the left thyroid lobe, measuring 2.4 x 1.2 x 0.5 cm. The specimen is serially sectioned from superior to inferior and two nodules are identified. The first nodule is more superior and smaller, firm and bird, is well circumscribed, abutting the nearest margin, and measuring 0.5 x 0.4 x 0.9 cm. The larger nodule is 1.5 x 1.4 x 2.6 cm, is soft, hemorrhagic and septated, and abuts the margin. The remaining cut surface of the specimen reveals normal bird thyroid tissue. The isthmus is serially sectioned and cut surface reveals two nodules. The one larger nodule has a jewell yellow cut surface area and is well circumscribed. The smaller nodule has a bird-mar color. Both the nodules and isthmus abut the margin. Sections are submitted as follows: A1 entire small superior nodule A2-A4 customer service representative teacher section of the larger nodule A5 larger nodule A6 remainder of isthmus with smaller nodule Specimen B, right lobe thyroid, stitch at superior , consists of a right thyroid lobe measuring 5.4 x 2.9 x 2.3 cm, weighing 13.8 grams. This tissue has a bird-mar color and is lobulated. There is no nodule or lesion identified on the specimen. The specimen is oriented and there is one stitch on the superior part of the specimen. The external surface is entirely inked in black. The specimen is serially sectioned from superior to inferior, and cut surface reveals two nodules. One is smaller, more superior and measures 0.4 x 0.3 x 0.3 cm, and abuts the margin. The larger, more inferior nodule measures 1.8 x 1.4 x 1.8 cm. Both nodules have a firm, qhrv-lgcyar-mzl color. The larger nodule also abuts the margin. B1 two serial sections of smaller, more superior nodule B2-B4 customer service representative teacher section of the larger nodule PD/edk MICROSCOPIC DESCRIPTION: The thyroid has nodular hyperplasia. A hypercellular right parathyroid gland is seen (B2, B3, B4). A small portion of thymus is present (B3). UNIT AIDE/psych arnp The performance characteristics of all immunohistochemical and indirect immunofluorescence stains (if any) cited in this report were determined by the Histopathology Laboratory of [facility]. Some of these tests were developed by our own laboratory and have not been cleared or approved by the US Food and Drug Administration. The FDA does not require this test to go through premarket FDA review. These tests are used for clinical purposes. They should not be regarded as investigational or for research. This laboratory is certified under the Clinical Laboratory Improvement Amendments (CLIA) as qualified to perform high complexity clinical laboratory testing. This case has been personally reviewed and interpreted by the attending (teaching) pathologist. Final Diagnosis performed by Chiqui Joseph MD. Electronically signed 08/16/2015 [facility] Other (qualifier value) 08/11/2015 9:03 AM CDT 08/11/2015 10:54 AM CDT Narrative [facility] - 08/16/2015 6:01 PM CDT PROBLEM LIST: Patient Active Problem List: Multinodular goiter Vocal cord paralysis PRE-OP DIAGNOSIS: THYROID NEOPLASM OPERATIVE PROCEDURE / FINDINGS: Procedure(s) with comments: TOTAL THYROIDECTOMY WITH RLN - 18588, [id number] POST-OP DIAGNOSIS: * No post-op diagnosis entered * Collection Date->08/11/15 Collection Time-> 9:03 AM Specimen A->Thyroid left lobe, stitch superior perm path Specimen B->Thyroid right lobe, stitch superior. perm path Ángel Jones MD LAB - PATHOLOGY/CYTO LOGY ORDERABLES Performing Organization Address City/[facility] Co de Phone Number [facility] ([facility]) * TYPE + SCREEN PANEL (08/11/2015 6:55 AM CDT) Typem B POS [facility] Antibody Screen NEG [facility] Blood specimen (specimen) 08/11/2015 6:55 AM CDT 08/11/2015 7:00 AM CDT Ángel Jones MD LAB - BLOOD BANK ORD ERABLES Performing Organization Address [facility] Co de Phone Number [facility] [address] * PATHOLOGY/GENETICS HISTORICAL-ONBASE (08/11/2015) 08/11/2015 Narrative [facility] - 08/17/2015 12:09 PM CDT Historical Provider LAB - CHEMISTRY O RDERABLES Performing Organization Address [facility] Co de Phone Number [facility] [address] * (ABNORMAL) CBC W AUTO DIFFERENTIAL (07/29/2015 2:43 PM CDT) Only the most recent of2 resultswithin the time period is included. WBC 7.3 3.5 - 10.5 10 3/uL [facility] RBC 5.14(H) 3.90 - 5.00 10 6/uL [facility] Hemoglobin 14.9 12.0 - 15.5 g/dL [facility] Hematocrit 43.8 35.0 - 45.0 % [facility] MCV 85.2 81.0 - 97.0 fL [facility] MCH 29.0 28.0 - 34.0 pg [facility] MCHC 34.0 32.0 - 36.0 g/dL [facility] Platelet Count 164 150 - 400 10 3/uL [facility] RDW-SD 39.3 36.0 - 50.0 fL [facility] RDW-CV 12.7 11.2 - 14.8 % [facility] MPV 10.4 9.3 - 12.8 fL [facility] Neutrophils % 69.0 35.0 - 70.0 % [facility] Lymphocytes % 20.9 19.7 - 55.1 % [facility] Monocytes % 6.0 3.0 - 15.0 % [facility] Eosinophils % 3.8 0.0 - 6.0 % [facility] Basophil % 0.3 0.0 - 1.5 % [facility] Neutrophils Absolute 5.0 1.6 - 7.0 10 3/uL [facility] Lymphocyte Absolute 1.5 0.8 - 2.9 10 3/uL [facility] Monocytes Absolute 0.44 0.14 - 0.66 10 3/uL [facility] Eosinophils Absolute 0.28(H) 0.00 - 0.22 10 3/uL [facility] Basophils Absolute 0.02 0.00 - 0.06 10 3/uL [facility] Immature Granulocytes % 0.1 0.0 - 1.0 % [facility] Blood specimen (specimen) BLOOD SPECIMEN / Unknown 07/29/2015 2:43 PM CDT 07/29/2015 2:46 PM CDT Jay King DO LAB - HEMATOLOGY OR DERABLES Performing Organization Address City/State/[facility] Co de Phone Number [facility] [address] [phone] * EKG 12-LEAD (07/29/2015 12:00 AM CDT) EKG [facility] Comment: Exam Date/Time: Jul 29 2015 14:10:37 Test Reason : History of aortic stenosis Blood Pressure : / mmHG Vent. Rate : 074 BPM Atrial Rate : 074 BPM P-R Int : 092 ms QRS Dur : 084 ms QT Int : 386 ms P-R-T Axes : 075 054 073 degrees QTc Int : 428 ms Sinus rhythm with short IL with Premature atrial complexes with Aberrant conduction Otherwise normal ECG No previous ECGs available Confirmed by Duc RICHARDSON, DANIEL ([id number]), editor managing director Robinson Mcdonough ([id number]) on 09/14/2015 11:29:27 AM Referred By: REFERRING NO Confirmed By:DANIEL RICHARDSON M.D. 07/29/2015 Jay King DO ECG ORDERABLES Performing Organization Address City/State/[facility] Co de Phone Number [facility] Care Teams Metalizer Field Operation Relationship Specialty Start Date End Date Danielle Hawkins Update Information PCP - General 04/29/15
--- OUTSIDE RECORDS SUMMARY | 2024-11-26 21:08 | XMS_ITS ---
Author Organization [facility] Address [address] [place] [address] Care Team Providers Care Flat Sorter Processor Name Role Phone Quinton Rowan MD Unavailable [phone] Pal Downey DO Primary Care Provider + [phone] Tami Flores RN Unavailable Cricket Escalante MD Unavailable [phone] Gael Sprague MD PhD Unavailable Brad Turner MD Unavailable [phone] Margarita Montoya MD Unavailable [phone] Luca Lott MD Unavailable Pb Galloway MD Unavailable Felipe Gerber MD Unavailable [phone] Transplant Episode Kidney Candidate [facility] ([place], [place]) [facility] Center waitlisted on 09/05/2021 Marked as Inactive on 03/13/2024 Reason: 03 - Candidate Work-up Incomplete Kidney CoordinatorTami Flores RN Email: N/A Scores Score Value Updated Exceptions/Reas ons CPRA Not available EPTS (Calc) 27 11/26/2024 Kaw Organ Diagnosis Organ Primary Contributory Kidney Polycystic Kidneys Care Team Name Role Phone Fax Email Tami Flores RN Kidney Coordinator [phone] N/A Mariann Bobo Hose Finisher [phone] N/A N/A Events Pre-Transplant Referred: 10/06/2020 Evaluation began: 03/24/2021 Committee: 09/04/2021 Center waitlisted: 09/05/2021 Dialysis History Dialysis History Start End Type Comments Center 01/09/2022 Peritoneal [facility] Dialysis [facility] Information Center Phone Fax Address [facility] [phone] [address]
--- OUTSIDE RECORDS SUMMARY | 2024-11-26 21:08 | XMS_ITS | Clinical Summary ---
Author Organization [facility] Address [address] [place] [address] Phone Care Team Providers Care Grain Sampler Name Role Phone ScarlettmelanyPal ibarra DO Primary Care Provider [phone] Allergies Active Allergy Reactions Criticality Noted Date Comments Ampicillin Anaphylaxis High 04/29/2015 Ciprofloxacin Low 04/29/2015 Other reaction(s): Nausea Clarithromycin Unknown Egg White (Egg Protein) Anaphylaxis High 09/20/2020 Peanut Oil Anaphylaxis High 03/15/2019 PEANUTS Penicillins Rash,Anaphylaxis High 04/29/2015 Other reaction(s): Unknown Per Armani Dumas MD, patient has previously tolerated cephalosporins. Frank Buckley PharmD 05/10/2019 Per Armani Dumas MD, patient has previously tolerated cephalosporins. Jack PottsD 05/10/2019 Per Armani Dumas MD, patient has previously tolerated cephalosporins. Frank Buckley PharmD 05/10/2019 Other reaction(s): Unknown Per Armani Dumas MD, patient has previously tolerated cephalosporins. Frank Buckley PharmD 05/10/2019 Other reaction(s): Unknown Per Armani Dumas MD, patient has previously tolerated cephalosporins. Frank Buckley PharmD 05/10/2019 Per Armani Dumas MD, patient has previously tolerated cephalosporins. Frank Buckley PharmD 05/10/2019 Per Armani Dumas MD, patient has previously tolerated cephalosporins. Frank Buckley PharmD 05/10/2019 Medications Medication Sig Dispensed Refills Start Date End Date Status albuterol HFA (PROVENTIL HFA;VENTOLIN HFA) 108 (90 Base) MCG/ACT inhaler prn 06/04/2012 Active aspirin EC 81 MG EC tablet Take 1 tablet by mouth daily 06/21/2017 Active calcitriol (ROCALTROL) 0.5 MCG capsule TAKE 1 CAPSULE BY MOUTH EVERY DAY IN THE MORNING 1 06/24/2019 Active potassium chloride (KLOR-CON M20) 20 MEQ CR tablet Take 20 mEq by mouth 3 times a day Active nitroglycerin (NITROSTAT) 0.[address] 0.4 mg under the tongue 05/23/2020 Active metoprolol succinate XL (TOPROL-XL) 25 MG 24 hr tablet Take 25 mg by mouth 1 (one) time each day 05/23/2020 Active furosemide (LASIX) 80 MG tablet Take 80 mg by mouth 1 (one) time each day 02/28/2021 Active levothyroxine (SYNTHROID) 112 MCG tablet 07/12/2021 Active acetaminophen-codein e (TYLENOL #3) 300-30 MG per tablet Take 1 tablet by mouth every 12 (twelve) hours if needed for pain 11/22/2021 Active docusate sodium (COLACE) 100 MG capsule PLEASE SEE ATTACHED FOR DETAILED DIRECTIONS 11/21/2021 Active Combivent Respimat 20-100 MCG/ACT inhaler PLEASE SEE ATTACHED FOR DETAILED DIRECTIONS 11/15/2021 Active Active Problems Problem Noted Date Diagnosed Date Chronic kidney disease, Stage V 12/22/2021 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 04/29/2019 Overview (09/17/2019): Last Assessment & Plan: Pt admitted with volume overload, SOB, lethargy, [...] -accurate I&O, monitor on telemetry, daily weights Myocardial infarction 02/07/2019 Overview (09/17/2019): Last Assessment & Plan: -trops 0.05.0.08>0.09>0.24 -> 0.58 ->0.62 -> 0.68 -> 0.69 -> 0.64 suspect 2/2 demand in setting of bradycardia and shock -EKG at ED w/ T wave inversions in V1 and V2 -ASA, hep gtt, plavix - peaked at 0.69, will not continue to trend - d/c hep gtt given >48 hrs and downtrending trop Hyperlipidemia 10/29/2018 Hypoparathyroidism 05/26/2018 Chronic kidney disease, stage 4 (severe) 018 Headache 05/02/2016 Paralysis of vocal cords and larynx 12/14/2015 Moderate chronic obstructive pulmonary disease 0 11/02/2015 Overview (09/17/2019): Last Assessment & Plan: -Saturating 95% on Ra on admission, no SOB. -started on her home albuterol Nontoxic multinodular goiter 08/11/2015 Adult polycystic kidney 04/28/2012 Bicuspid aortic valve 11/23/2010 Immunizations Name Administration Dates Next Due Influenza TIV (IM) 08/23/2021(Deferred: Patient Refused) Family History Medical History Relation Comments Kidney disease Relative Relation Status Comments Relative Social History Tobacco Use Types Packs/Day Years Used Date Smoking Tobacco: Former Smokeless Tobacco: Never Alcohol Use Standard Drinks/Week Comments No 0 (1 standard drink = 0.6 oz pur e alcohol) AUDIT-C Answer Date Recorded Frequency of Alcohol Consumption Never 01/31/2019 Average Number of Drinks Not on file 019 Frequency of Binge Drinking Not on file 01/19 Sex and Gender Information Value Date Recorded Sex Assigned at Not on file Gender Identity Not on file Sexual Orientation Not on file Last Filed Vital Signs Vital Sign Reading Time Taken Comments Blood Pressure 122/70 12/22/2021 9:43 PM ADMITTING SUPERVISOR Pulse 72 12/22/2021 9:43 PM ADMITTING SUPERVISOR Temperature 36.2 C (97.2 F) 12/22/2021 9:43 PM ADMITTING SUPERVISOR Respiratory Rate - - Oxygen Saturation - - Inhaled Oxygen Concentration - - Weight 50.3 kg (111 lb) 12/22/2021 9:43 PM ADMITTING SUPERVISOR Height 162.6 cm (5' 4 ) 12/22/2021 9:43 PM ADMITTING SUPERVISOR Body Mass Index 19.05 12/22/2021 9:43 PM ADMITTING SUPERVISOR Plan of Treatment Health Maintenance Due Date Last Done Comments Influenza Vaccine (#1) 2024 10/21/2017 Care Teams Grain Sampler Relationship Specialty Start Date End Date Pal Downey DO [address] [place] [address] PCP - General Internal Medicine 02/04/19
--- OUTSIDE RECORDS SUMMARY | 2024-11-26 21:10 | XMS_ITS ---
Author Organization [facility] ([facility]) Address [address] [place] [id number] Care Team Providers [facility] Sales Associate Name Role Phone Unavailable Unavailable Unavailable Allergies, Adverse Reactions, Alerts Allergy Name Allergy Type Status Severity Reaction(s) Onset Date Inactive Date Treating Clinician Comments Penicillins Allergy Active Moderate Allergy 2021-10 0- 05:00: 00 Ciprofloxacin Allergy Active Moderate Allergy 2021-10 0- 05:00: 00 Ampicillin Allergy Active Moderate Allergy 2021-10 0- 05:00: 00 Clarithromycin Allergy Active Moderate Allergy 2021-10 0- 05:00: 00 Peanut Oil Allergy Active Moderate Allergy 2021-10 0- 05:00: 00 Eggs or Egg-derived Products Allergy Active Moderate Allergy 2021-10 0-21 05:00: 00 Medications Ordered Medication Name Filled Medication Name Start Date Stop Date Current Medication? Ordering Clinician Indication Dosage Frequency Signature (SIG) Comments Components Venofer 1- 14:40: 46 Yes [id number] Number of Repeats Allowed: Frequency: Every monthDoses Ordered: Maintenanc e Dose 100 Milligram Route: Intravenou s Levothyroxi ne Sodium 8-06 13:47: 42 Yes Number of Repeats Allowed: Frequency: One time a day Lasix 7-17 18:17: 25 Yes Number of Repeats Allowed: Frequency: Two times a day Vitamin B 12 4-20 16:20: 54 Yes Number of Repeats Allowed: Frequency: One time a day Ergocalcife rol 2021-10 0-21 05:00: 00 Yes Number of Repeats Allowed: Frequency: Every other week Plavix 6- 05:00: 00 Yes Number of Repeats Allowed: Frequency: One time a day Bactrim DS 504 05:00: 00 Yes Number of Repeats Allowed: Frequency: As needed Claritin 504 05:00: 00 Yes Number of Repeats Allowed: Frequency: One time a day Aspirin 5-04 05:00: 00 Yes Number of Repeats Allowed: Frequency: One time a day Multivitami n 504 05:00: 00 Yes Number of Repeats Allowed: Frequency: One time a day Gentamicin Sulfate 3-23 05:00: 00 Yes Number of Repeats Allowed: Frequency: One time a day Problems This patient has no known problems. Procedures Procedure Date / Time Performed Performing Clinician Laura park Details PD Catheter 2021-12-27 06:00:00 Access Site Middle Quadrant (Rig ht) Access Use Start Date 2022-01-09 05:00:0 0 DIALYSIS TREATMENT INFORMATION Conventional Hemodialysis Date Type Treatment Start Date Treatment End Date Pre-Treatment Vitals Post-Treatment Vitals Weight Gain BFR DFR Actual UF Dialysis Access November 25, 2024 [facility] 24, 2024 [facility] BP Sitting (Pre-Dialysis) 101/83 mmHg Sitting Heart Rate Pre-Dialysis 86 BPM Temperature Pre-Dialysis 96.1 degF Weight Pre-Dialysis 51.3 kg November 24, 2024 [facility] November 23, 2024 [facility] November 22, 2024 [facility] November 21, 2024 [facility] November 20, 2024 [facility] November 19, 2024 [facility] November 18, 2024 [facility] November 17, 2024 [facility] November 16, 2024 [facility] November 15, 2024 [facility] November 14, 2024 [facility] November 13, 2024 [facility] November 12, 2024 [facility] November 11, 2024 [facility] BP Sitting (Pre-Dialysis) 78/53 mmHg Sitting Heart Rate Pre-Dialysis 84 BPM Temperature Pre-Dialysis 96.7 degF Weight Pre-Dialysis 50.1 kg November 11, 2024 [facility] November 10, 2024 [facility] November 09, 2024 [facility] 2024 [facility] November 07, 2024 [facility] November 06, 2024 [facility] November 05, 2024 [facility] BP Sitting (Pre-Dialysis) 137/86 mmHg Sitting Heart Rate Pre-Dialysis 69 BPM Temperature Pre-Dialysis 97.2 degF Weight Pre-Dialysis 51 kg November 05, 2024 [facility] November 04, 2024 [facility] November 03, 2024 [facility] November 02, 2024 [facility] November 01, 2024 [facility] October 31, 2024 [facility] October 30, 2024 [facility] October 29, 2024 [facility] October 28, 2024 [facility] October 27, 2024 [facility] October 26, 2024 [facility] October 25, 2024 [facility] October 24, 2024 [facility] October 23, 2024 [facility] October 22, 2024 [facility] October 21, 2024 [facility] October 20, 2024 [facility] October 19, 2024 [facility] October 18, 2024 [facility] October 17, 2024 [facility] October 16, 2024 [facility] October 15, 2024 [facility] October 14, 2024 [facility] October 13, 2024 [facility] October 12, 2024 [facility] October 11, 2024 [facility] October 10, 2024 [facility] October 09, 2024 [facility] October 08, 2024 [facility] October 07, 2024 [facility] October 06, 2024 [facility] BP Sitting (Pre-Dialysis) 93/78 mmHg BP Standing (Pre-Dialysis) 98/80 mmHg Sitting Heart Rate Pre-Dialysis 77 BPM Standing Heart Rate Pre-Dialysis 73 BPM Temperature Pre-Dialysis 98.2 degF Weight Pre-Dialysis 52.4 kg October 06, 2024 [facility] October 05, 2024 [facility] October 04, 2024 [facility] October 03, 2024 [facility] October 02, 2024 [facility] October 01, 2024 [facility] September 30, 2024 [facility] September 29, 2024 [facility] September 28, 2024 [facility] September 27, 2024 [facility] September 26, 2024 [facility] September 25, 2024 [facility] September 24, 2024 [facility] September 23, 2024 [facility] September 22, 2024 [facility] September 21, 2024 [facility] BP Sitting (Pre-Dialysis) 88/59 mmHg Sitting Heart Rate Pre-Dialysis 79 BPM Temperature Pre-Dialysis 97.6 degF Weight Pre-Dialysis 53.2 kg September 21, 2024 [facility] September 20, 2024 [facility] September 19, 2024 [facility] September 18, 2024 [facility] September 17, 2024 [facility] September 16, 2024 [facility] September 15, 2024 [facility] September 14, 2024 [facility] September 13, 2024 [facility] September 12, 2024 [facility] September 11, 2024 [facility] September 10, 2024 [facility] September 09, 2024 [facility] September 08, 2024 [facility] BP Sitting (Pre-Dialysis) 95/53 mmHg BP Standing (Pre-Dialysis) 86/67 mmHg Sitting Heart Rate Pre-Dialysis 68 BPM Standing Heart Rate Pre-Dialysis 76 BPM Temperature Pre-Dialysis 97.8 degF Weight Pre-Dialysis 52.6 kg September 08, 2024 [facility] September 07, 2024 [facility] September 06, 2024 [facility] September 05, 2024D September 04, 2024 [facility] September 03, 2024 [facility] September 02, 2024 [facility] September 01, 2024 [facility] August 31, 2024 [facility] August 30, 2024 [facility] August 29, 2024 [facility] August 28, 2024 [facility] August 27, 2024 [facility] August 26, 2024 [facility] August 25, 2024 [facility] BP Sitting (Pre-Dialysis) 104/79 mmHg BP Standing (Pre-Dialysis) 94/70 mmHg Sitting Heart Rate Pre-Dialysis 78 BPM Standing Heart Rate Pre-Dialysis 82 BPM Temperature Pre-Dialysis 96.5 degF Weight Pre-Dialysis 53.6 kg August 25, 2024 [facility] August 24, 2024 [facility] August 23, 2024 [facility] August 22, 2024 [facility] August 21, 2024 [facility] August 20, 2024 [facility] August 19, 2024 [facility] August 18, 2024 [facility] August 17, 2024 [facility] August 16, 2024 [facility] August 15, 2024 [facility] August 14, 2024 [facility] August 13, 2024 [facility] August 12, 2024 [facility] August 11, 2024 [facility] August 10, 2024 [facility] August 09, 2024 [facility] August 08, 2024 [facility] August 07, 2024 [facility] August 06, 2024 [facility] August 05, 2024 [facility] August 04, 2024 [facility] BP Sitting (Pre-Dialysis) 105/84 mmHg BP Standing (Pre-Dialysis) 105/83 mmHg Sitting Heart Rate Pre-Dialysis 90 BPM Standing Heart Rate Pre-Dialysis 86 BPM Temperature Pre-Dialysis 97.9 degF Weight Pre-Dialysis 51.5 kg August 04, 2024 [facility] August 03, 2024 [facility] August 02, 2024 [facility] August 01, 2024 [facility] July 31, 2024 [facility] July 30, 2024 [facility] July 29, 2024 [facility] July 28, 2024 [facility] July 27, 2024 [facility] BP Sitting (Pre-Dialysis) 96/72 mmHg Sitting Heart Rate Pre-Dialysis 79 BPM Temperature Pre-Dialysis 97.6 degF Weight Pre-Dialysis 52.8 kg July 27, 2024 [facility] July 26, 2024 [facility] July 25, 2024 [facility] July 24, 2024 [facility] July 23, 2024 [facility] July 22, 2024 [facility] July 21, 2024 [facility] July 20, 2024 [facility] July 19, 2024 [facility] July 18, 2024 [facility] July 17, 2024 [facility] July 16, 2024 [facility] July 15, 2024 [facility] July 14, 2024 [facility] July 13, 2024 [facility] July 12, 2024 [facility] July 11, 2024 [facility] July 10, 2024 [facility] July 09, 2024 [facility] July 08, 2024 [facility] July 07, 2024 [facility] BP Sitting (Pre-Dialysis) 99/73 mmHg Sitting Heart Rate Pre-Dialysis 83 BPM Temperature Pre-Dialysis 98.6 degF Weight Pre-Dialysis 51.7 kg July 07, 2024 [facility] July 06, 2024 [facility] July 05, 2024 [facility] July 04, 2024 [facility] July 03, 2024 [facility] July 02, 2024 [facility] July 01, 2024 [facility] June 30, 2024 [facility] June 29, 2024 [facility] BP Sitting (Pre-Dialysis) 90/78 mmHg Sitting Heart Rate Pre-Dialysis 66 BPM Temperature Pre-Dialysis 97.6 degF Weight Pre-Dialysis 51.2 kg June 29, 2024 [facility] June 28, 2024 [facility] June 27, 2024 [facility] June 26, 2024 [facility] June 25, 2024 [facility] June 24, 2024 [facility] June 23, 2024 [facility] June 22, 2024 [facility] June 21, 2024 [facility] June 20, 2024 [facility] June 19, 2024 [facility] June 18, 2024 [facility] June 17, 2024 [facility] June 16, 2024 [facility] June 15, 2024 [facility] June 14, 2024 [facility] June 13, 2024 [facility] June 12, 2024 [facility] June 11, 2024 [facility] June 10, 2024 [facility] June 09, 2024 [facility] BP Sitting (Pre-Dialysis) 82/68 mmHg Sitting Heart Rate Pre-Dialysis 80 BPM Temperature Pre-Dialysis 98 degF Weight Pre-Dialysis 49.8 kg June 09, 2024 [facility] June 08, 2024 [facility] June 07, 2024 [facility] June 06, 2024 [facility] June 05, 2024 [facility] June 04, 2024 [facility] June 03, 2024 [facility] BP Sitting (Pre-Dialysis) 100/85 mmHg Sitting Heart Rate Pre-Dialysis 90 BPM Temperature Pre-Dialysis 97.3 degF Weight Pre-Dialysis 50.4 kg June 03, 2024 [facility] June 02, 2024 [facility] June 01, 2024 [facility] May 31, 2024 [facility] May 30, 2024 [facility] May 29, 2024 [facility] May 28, 2024 [facility] May 27, 2024 [facility] May 26, 2024 [facility] May 25, 2024 [facility] May 19, 2024 [facility] May 18, 2024 [facility] May 17, 2024 [facility] May 16, 2024 [facility] May 15, 2024 [facility] May 14, 2024 [facility] May 13, 2024 [facility] May 12, 2024 [facility] May 11, 2024 [facility] May 10, 2024 [facility] May 09, 2024 [facility] May 08, 2024 [facility] May 07, 2024 [facility] May 06, 2024 [facility] May 05, 2024 [facility] BP Sitting (Pre-Dialysis) 102/78 mmHg BP Standing (Pre-Dialysis) 96/76 mmHg Sitting Heart Rate Pre-Dialysis 95 BPM Standing Heart Rate Pre-Dialysis 90 BPM Temperature Pre-Dialysis 97.2 degF Weight Pre-Dialysis 51.3 kg May 05, 2024 [facility] May 04, 2024 [facility] May 03, 2024 [facility] May 02, 2024 [facility] May 01, 2024 [facility] April 30, 2024 [facility] April 29, 2024 [facility] BP Sitting (Pre-Dialysis) 101/71 mmHg BP Standing (Pre-Dialysis) 101/82 mmHg Sitting Heart Rate Pre-Dialysis 76 BPM Standing Heart Rate Pre-Dialysis 75 BPM Temperature Pre-Dialysis 97.8 degF Weight Pre-Dialysis 50.4 kg April 29, 2024 [facility] April 28, 2024 [facility] April 27, 2024 [facility] April 26, 2024 [facility] April 25, 2024 [facility] April 24, 2024 [facility] April 23, 2024 [facility] April 22, 2024 [facility] April 21, 2024 [facility] April 20, 2024 [facility] April 19, 2024 [facility] April 18, 2024 [facility] April 17, 2024 [facility] April 16, 2024 [facility] April 15, 2024 [facility] April 14, 2024 [facility] April 13, 2024 [facility] April 12, 2024 [facility] April 11, 2024 [facility] April 10, 2024 [facility] April 09, 2024 [facility] April 08, 2024 [facility] April 07, 2024 [facility] April 06, 2024 [facility] April 05, 2024 [facility] April 04, 2024 [facility] April 03, 2024 [facility] April 02, 2024 [facility] BP Sitting (Pre-Dialysis) 98/78 mmHg BP Standing (Pre-Dialysis) 98/80 mmHg Sitting Heart Rate Pre-Dialysis 60 BPM Standing Heart Rate Pre-Dialysis 60 BPM Temperature Pre-Dialysis 98.1 degF Weight Pre-Dialysis 50.5 kg April 02, 2024 [facility] April 01, 2024 [facility] March 31, 2024 [facility] March 30, 2024 [facility] March 29, 2024 [facility] March 28, 2024 [facility] March 27, 2024 [facility] March 26, 2024 [facility] March 25, 2024 [facility] March 24, 2024 [facility] March 23, 2024 [facility] BP Sitting (Pre-Dialysis) 110/79 mmHg BP Standing (Pre-Dialysis) 104/69 mmHg Sitting Heart Rate Pre-Dialysis 80 BPM Standing Heart Rate Pre-Dialysis 73 BPM Temperature Pre-Dialysis 97.5 degF Weight Pre-Dialysis 51.9 kg March 23, 2024 [facility] March 22, 2024 [facility] March 21, 2024 [facility] March 20, 2024 [facility] March 19, 2024 [facility] March 18, 2024 [facility] March 17, 2024 [facility] March 16, 2024 [facility] March 15, 2024 [facility] March 14, 2024 [facility] March 13, 2024 [facility] March 12, 2024 [facility] BP Sitting (Pre-Dialysis) 88/71 mmHg BP Standing (Pre-Dialysis) 88/72 mmHg Sitting Heart Rate Pre-Dialysis 92 BPM Standing Heart Rate Pre-Dialysis 87 BPM Temperature Pre-Dialysis 98 degF Weight Pre-Dialysis 51 kg March 12, 2024 [facility] March 11, 2024 [facility] March 10, 2024 [facility] March 09, 2024 [facility] March 08, 2024 [facility] March 07, 2024 [facility] March 06, 2024 [facility] March 05, 2024 [facility] March 04, 2024 [facility] March 03, 2024 [facility] March 02, 2024 [facility] March 01, 2024 [facility] February 29, 2024 [facility] February 28, 2024 [facility] February 27, 2024 [facility] February 26, 2024 [facility] February 25, 2024 [facility] February 24, 2024 [facility] BP Sitting (Pre-Dialysis) 70/40 mmHg Sitting Heart Rate Pre-Dialysis 80 BPM Temperature Pre-Dialysis 97.3 degF Weight Pre-Dialysis 49.5 kg February 24, 2024 [facility] February 23, 2024 [facility] February 22, 2024 [facility] February 21, 2024 [facility] February 20, 2024 [facility] February 19, 2024 [facility] February 18, 2024 [facility] February 17, 2024 [facility] February 16, 2024 [facility] February 15, 2024 [facility] February 14, 2024 [facility] February 13, 2024 [facility] February 12, 2024 [facility] February 11, 2024 [facility] February 10, 2024 [facility] February 09, 2024 [facility] February 08, 2024 [facility] February 07, 2024 [facility] February 06, 2024 [facility] BP Sitting (Pre-Dialysis) 88/66 mmHg BP Standing (Pre-Dialysis) 93/67 mmHg Sitting Heart Rate Pre-Dialysis 74 BPM Standing Heart Rate Pre-Dialysis 75 BPM Temperature Pre-Dialysis 97.6 degF Weight Pre-Dialysis 50.1 kg February 06, 2024 [facility] February 05, 2024 [facility] February 03, 2024 [facility] February 02, 2024 [facility] February 01, 2024 [facility] January 31, 2024 [facility] January 30, 2024 [facility] January 29, 2024 [facility] January 28, 2024 [facility] January 27, 2024 [facility] January 26, 2024 [facility] January 25, 2024 [facility] January 24, 2024 [facility] January 23, 2024 [facility] January 22, 2024 [facility] BP Sitting (Pre-Dialysis) 108/75 mmHg BP Standing (Pre-Dialysis) 104/74 mmHg Sitting Heart Rate Pre-Dialysis 85 BPM Standing Heart Rate Pre-Dialysis 82 BPM Temperature Pre-Dialysis 96.2 degF Weight Pre-Dialysis 51.1 kg January 22, 2024 [facility] January 21, 2024 [facility] January 20, 2024 [facility] January 19, 2024 [facility] January 18, 2024 [facility] January 17, 2024 [facility] January 16, 2024 [facility] January 15, 2024 [facility] January 14, 2024 [facility] January 13, 2024 [facility] January 12, 2024 [facility] January 11, 2024 [facility] January 10, 2024 [facility] January 09, 2024 [facility] January 08, 2024 [facility] January 07, 2024 [facility] January 06, 2024 [facility] January 05, 2024 [facility] January 04, 2024 [facility] January 03, 2024 [facility] January 02, 2024 [facility] BP Sitting (Pre-Dialysis) 106/81 mmHg BP Standing (Pre-Dialysis) 112/88 mmHg Sitting Heart Rate Pre-Dialysis 93 BPM Standing Heart Rate Pre-Dialysis 85 BPM Temperature Pre-Dialysis 97.3 degF Weight Pre-Dialysis 50.1 kg January 02, 2024 [facility] January 01, 2024 [facility] December 31, 2023 [facility] December 30, 2023 [facility] BP Sitting (Pre-Dialysis) 100/80 mmHg Sitting Heart Rate Pre-Dialysis 80 BPM Temperature Pre-Dialysis 97.2 degF Weight Pre-Dialysis 50.5 kg December 30, 2023 [facility] December 29, 2023 [facility] December 28, 2023 [facility] December 27, 2023 [facility] December 26, 2023 [facility] December 25, 2023 [facility] December 24, 2023 [facility] December 23, 2023 [facility] December 22, 2023 [facility] December 21, 2023 [facility] December 20, 2023 [facility] December 19, 2023 [facility] December 18, 2023 [facility] December 17, 2023 [facility] December 16, 2023 [facility] December 15, 2023 [facility] December 14, 2023 [facility] December 13, 2023 [facility] December 12, 2023 [facility] BP Sitting (Pre-Dialysis) 106/72 mmHg BP Standing (Pre-Dialysis) 98/69 mmHg Sitting Heart Rate Pre-Dialysis 80 BPM Standing Heart Rate Pre-Dialysis 76 BPM Temperature Pre-Dialysis 97.3 degF Weight Pre-Dialysis 51 kg December 12, 2023 [facility] December 11, 2023 [facility] December 10, 2023 [facility] December 08, 2023 [facility] December 07, 2023 [facility] December 06, 2023 [facility] December 05, 2023 [facility] December 04, 2023 [facility] December 03, 2023 [facility] December 02, 2023 [facility] December 01, 2023 [facility] November 30, 2023 [facility] November 29, 2023 [facility] BP Sitting (Pre-Dialysis) 108/75 mmHg BP Standing (Pre-Dialysis) 103/70 mmHg Sitting Heart Rate Pre-Dialysis 75 BPM Standing Heart Rate Pre-Dialysis 69 BPM Temperature Pre-Dialysis 97.2 degF Weight Pre-Dialysis 51 kg November 29, 2023 [facility] November 28, 2023 [facility] November 27, 2023 [facility] November 26, 2023 [facility] November 25, 2023 [facility] November 24, 2023 [facility] November 23, 2023 [facility] November 22, 2023 [facility] November 21, 2023 [facility] November 20, 2023 [facility] November 19, 2023 [facility] November 18, 2023 [facility] November 17, 2023 [facility] November 16, 2023 [facility] November 15, 2023 [facility] November 14, 2023 [facility] November 13, 2023 [facility] November 12, 2023 [facility] November 11, 2023 [facility] November 10, 2023 [facility] November 09, 2023 [facility] 2023 [facility] November 07, 2023 [facility] BP Sitting (Pre-Dialysis) 95/76 mmHg BP Standing (Pre-Dialysis) 92/73 mmHg Sitting Heart Rate Pre-Dialysis 99 BPM Standing Heart Rate Pre-Dialysis 101 BPM Temperature Pre-Dialysis 97.5 degF Weight Pre-Dialysis 50.1 kg November 07, 2023 [facility] November 06, 2023 [facility] November 05, 2023 [facility] November 04, 2023 [facility] November 03, 2023 [facility] November 02, 2023 [facility] November 01, 2023 [facility] October 31, 2023 [facility] BP Sitting (Pre-Dialysis) 123/76 mmHg BP Standing (Pre-Dialysis) 105/72 mmHg Sitting Heart Rate Pre-Dialysis 79 BPM Standing Heart Rate Pre-Dialysis 75 BPM Temperature Pre-Dialysis 97.3 degF Weight Pre-Dialysis 48.5 kg October 31, 2023 [facility] October 30, 2023 [facility] October 29, 2023 [facility] October 28, 2023 [facility] October 27, 2023 [facility] October 26, 2023 [facility] October 25, 2023 [facility] October 24, 2023 [facility] October 23, 2023 [facility] October 22, 2023 [facility] October 21, 2023 [facility] October 20, 2023 [facility] October 19, 2023 [facility] October 18, 2023 [facility] October 17, 2023 [facility] October 16, 2023 [facility] October 15, 2023 [facility] October 14, 2023 [facility] October 13, 2023 [facility] October 12, 2023 [facility] October 11, 2023 [facility] October 10, 2023 [facility] BP Sitting (Pre-Dialysis) 110/75 mmHg BP Standing (Pre-Dialysis) 102/73 mmHg Sitting Heart Rate Pre-Dialysis 85 BPM Standing Heart Rate Pre-Dialysis 81 BPM Temperature Pre-Dialysis 97.7 degF Weight Pre-Dialysis 50.1 kg October 10, 2023 [facility] October 09, 2023 [facility] October 08, 2023 [facility] October 07, 2023 [facility] October 06, 2023 [facility] October 05, 2023 [facility] October 04, 2023 [facility] October 03, 2023 [facility] October 02, 2023 [facility] October 01, 2023 [facility] September 30, 2023 [facility] September 29, 2023 [facility] September 28, 2023 [facility] September 27, 2023 [facility] September 26, 2023 [facility] September 25, 2023 [facility] September 24, 2023 [facility] September 23, 2023 [facility] BP Sitting (Pre-Dialysis) 114/71 mmHg BP Standing (Pre-Dialysis) 114/71 mmHg Sitting Heart Rate Pre-Dialysis 76 BPM Standing Heart Rate Pre-Dialysis 79 BPM Temperature Pre-Dialysis 97.2 degF Weight Pre-Dialysis 49.2 kg September 23, 2023 [facility] September 22, 2023 [facility] September 21, 2023 [facility] September 20, 2023 [facility] September 19, 2023 [facility] September 18, 2023 [facility] September 17, 2023 [facility] September 16, 2023 [facility] September 15, 2023 [facility] September 14, 2023 [facility] September 13, 2023 [facility] September 12, 2023 [facility] September 11, 2023 [facility] September 10, 2023 [facility] September 09, 2023 [facility] September 08, 2023 [facility] September 07, 2023 [facility] September 06, 2023 [facility] September 05, 2023 [facility] BP Sitting (Pre-Dialysis) 99/65 mmHg BP Standing (Pre-Dialysis) 104/65 mmHg Sitting Heart Rate Pre-Dialysis 76 BPM Standing Heart Rate Pre-Dialysis 74 BPM Temperature Pre-Dialysis 97.5 degF Weight Pre-Dialysis 51 kg September 05, 2023 [facility] September 04, 2023 [facility] September 03, 2023 [facility] September 02, 2023 [facility] September 01, 2023 [facility] August 31, 2023 [facility] August 30, 2023 [facility] BP Sitting (Pre-Dialysis) 121/73 mmHg BP Standing (Pre-Dialysis) 111/69 mmHg Sitting Heart Rate Pre-Dialysis 84 BPM Standing Heart Rate Pre-Dialysis 81 BPM Temperature Pre-Dialysis 97.3 degF Weight Pre-Dialysis 51.8 kg August 30, 2023 [facility] August 29, 2023 [facility] August 28, 2023 [facility] August 27, 2023 [facility] August 21, 2023 [facility] August 20, 2023 [facility] August 19, 2023 [facility] August 18, 2023 [facility] August 17, 2023 [facility] August 16, 2023 [facility] August 15, 2023 [facility] August 14, 2023 [facility] August 13, 2023 [facility] August 12, 2023 [facility] August 11, 2023 [facility] August 10, 2023 [facility] August 09, 2023 [facility] August 08, 2023 [facility] BP Sitting (Pre-Dialysis) 113/76 mmHg BP Standing (Pre-Dialysis) 120/65 mmHg Sitting Heart Rate Pre-Dialysis 81 BPM Standing Heart Rate Pre-Dialysis 90 BPM Temperature Pre-Dialysis 97.7 degF Weight Pre-Dialysis 51.7 kg August 08, 2023 [facility] August 07, 2023 [facility] August 06, 2023 [facility] August 05, 2023 [facility] August 04, 2023 [facility] August 03, 2023 [facility] August 02, 2023 [facility] August 01, 2023 [facility] July 31, 2023 [facility] July 30, 2023 [facility] July 29, 2023 [facility] July 28, 2023 [facility] July 27, 2023 [facility] July 26, 2023 [facility] July 25, 2023 [facility] July 24, 2023 [facility] July 23, 2023 [facility] July 22, 2023 [facility] BP Sitting (Pre-Dialysis) 114/73 mmHg BP Standing (Pre-Dialysis) 122/61 mmHg Sitting Heart Rate Pre-Dialysis 76 BPM Standing Heart Rate Pre-Dialysis 89 BPM Temperature Pre-Dialysis 97.6 degF Weight Pre-Dialysis 50.6 kg July 22, 2023 [facility] July 21, 2023 [facility] July 20, 2023 [facility] July 19, 2023 [facility] July 18, 2023 [facility] July 17, 2023 [facility] July 16, 2023 [facility] July 15, 2023 [facility] July 14, 2023 [facility] July 13, 2023 [facility] July 12, 2023 [facility] July 11, 2023 [facility] July 10, 2023 [facility] BP Sitting (Pre-Dialysis) 112/69 mmH g BP Standing (Pre-Dialysis) 114/69 mmHg Sitting Heart Rate Pre-Dialysis 74 BPM Standing Heart Rate Pre-Dialysis 70 BPM Temperature Pre-Dialysis 97.8 degF Weight Pre-Dialysis 50.8 kg July 10, 2023 [facility] July 08, 2023 [facility] BP Sitting (Pre-Dialysis) 118/73 mmH g BP Standing (Pre-Dialysis) 113/67 mmHg Sitting Heart Rate Pre-Dialysis 70 BPM Standing Heart Rate Pre-Dialysis 72 BPM Temperature Pre-Dialysis 97.3 degF Weight Pre-Dialysis 50.8 kg July 08, 2023 [facility] July 07, 2023 [facility] July 06, 2023 [facility] July 05, 2023 [facility] July 04, 2023 [facility] July 03, 2023 [facility] July 02, 2023 [facility] July 01, 2023 [facility] June 30, 2023 [facility] June 29, 2023 [facility] June 28, 2023 [facility] June 27, 2023 [facility] June 26, 2023 [facility] June 25, 2023 [facility] June 24, 2023 [facility] June 23, 2023 [facility] June 22, 2023 [facility] June 21, 2023 [facility] June 20, 2023 [facility] June 19, 2023 [facility] June 18, 2023 [facility] June 17, 2023 [facility] June 16, 2023 [facility] June 15, 2023 [facility] June 14, 2023 [facility] June 13, 2023 [facility] June 12, 2023 [facility] June 11, 2023 [facility] June 10, 2023 [facility] June 09, 2023 [facility] June 08, 2023 [facility] June 07, 2023 [facility] June 06, 2023 [facility] BP Sitting (Pre-Dialysis) 102/68 mmHg BP Standing (Pre-Dialysis) 109/72 mmHg Sitting Heart Rate Pre-Dialysis 73 BPM Standing Heart Rate Pre-Dialysis 78 BPM Temperature Pre-Dialysis 97.2 degF Weight Pre-Dialysis 50.5 kg June 06, 2023 [facility] June 05, 2023 [facility] June 04, 2023 [facility] June 03, 2023 [facility] June 02, 2023 [facility] June 01, 2023 [facility] May 31, 2023 [facility] May 30, 2023 [facility] May 29, 2023 [facility] May 28, 2023 [facility] May 27, 2023 [facility] May 26, 2023 [facility] May 25, 2023 [facility] May 24, 2023 [facility] May 23, 2023 [facility] BP Sitting (Pre-Dialysis) 136/77 mmHg BP Standing (Pre-Dialysis) 112/69 mmHg Sitting Heart Rate Pre-Dialysis 78 BPM Standing Heart Rate Pre-Dialysis 63 BPM Temperature Pre-Dialysis 97.5 degF Weight Pre-Dialysis 113.5 kg May 23, 2023 [facility] May 22, 2023 [facility] May 21, 2023 [facility] May 20, 2023 [facility] May 19, 2023 [facility] May 18, 2023 [facility] May 17, 2023 [facility] May 10, 2023 [facility] May 09, 2023 [facility] BP Sitting (Pre-Dialysis) 124/77 mmHg BP Standing (Pre-Dialysis) 105/79 mmHg Sitting Heart Rate Pre-Dialysis 91 BPM Standing Heart Rate Pre-Dialysis 87 BPM Temperature Pre-Dialysis 97 degF Weight Pre-Dialysis 50.7 kg May 09, 2023 [facility] May 08, 2023 [facility] May 07, 2023 [facility] May 06, 2023 [facility] May 05, 2023 [facility] May 04, 2023 [facility] May 03, 2023 [facility] May 02, 2023 [facility] May 01, 2023 [facility] BP Sitting (Pre-Dialysis) 117/71 mmHg BP Standing (Pre-Dialysis) 116/71 mmHg Sitting Heart Rate Pre-Dialysis 85 BPM Standing Heart Rate Pre-Dialysis 82 BPM Temperature Pre-Dialysis 97.9 degF Weight Pre-Dialysis 48.9 kg May 01, 2023 [facility] April 30, 2023 [facility] April 29, 2023 [facility] April 28, 2023 [facility] April 27, 2023 [facility] April 26, 2023 [facility] April 25, 2023 [facility] April 24, 2023 [facility] April 23, 2023 [facility] April 22, 2023 [facility] April 21, 2023 [facility] April 20, 2023 [facility] April 19, 2023 [facility] April 18, 2023 [facility] April 17, 2023 [facility] April 16, 2023 [facility] April 15, 2023 [facility] April 14, 2023 [facility] April 13, 2023 [facility] April 12, 2023 [facility] April 11, 2023 [facility] BP Sitting (Pre-Dialysis) 120/74 mmHg BP Standing (Pre-Dialysis) 117/74 mmHg Sitting Heart Rate Pre-Dialysis 89 BPM Standing Heart Rate Pre-Dialysis 84 BPM Temperature Pre-Dialysis 97.7 degF Weight Pre-Dialysis 50.7 kg April 11, 2023 [facility] April 10, 2023 [facility] April 09, 2023 [facility] April 08, 2023 [facility] April 07, 2023 [facility] April 06, 2023 [facility] April 05, 2023 [facility] April 04, 2023 [facility] April 03, 2023 [facility] April 02, 2023 [facility] April 01, 2023 [facility] March 31, 2023 [facility] March 30, 2023 [facility] March 29, 2023 [facility] March 28, 2023 [facility] March 27, 2023 [facility] March 26, 2023 [facility] March 25, 2023 [facility] BP Sitting (Pre-Dialysis) 120/70 mmHg BP Standing (Pre-Dialysis) 118/75 mmHg Sitting Heart Rate Pre-Dialysis 77 BPM Standing Heart Rate Pre-Dialysis 73 BPM Temperature Pre-Dialysis 97.5 degF Weight Pre-Dialysis 50.7 kg March 25, 2023 [facility] March 24, 2023 [facility] March 23, 2023 [facility] March 22, 2023 [facility] March 21, 2023 [facility] March 20, 2023 [facility] March 19, 2023 [facility] March 18, 2023 [facility] March 17, 2023 [facility] March 16, 2023 [facility] March 15, 2023 [facility] March 14, 2023 [facility] March 13, 2023 [facility] March 12, 2023 [facility] March 11, 2023 [facility] March 10, 2023 [facility] March 09, 2023 [facility] March 08, 2023 [facility] March 07, 2023 [facility] BP Sitting (Pre-Dialysis) 126/82 mmHg BP Standing (Pre-Dialysis) 122/73 mmHg Sitting Heart Rate Pre-Dialysis 83 BPM Standing Heart Rate Pre-Dialysis 85 BPM Temperature Pre-Dialysis 97.3 degF Weight Pre-Dialysis 51.6 kg March 07, 2023 [facility] March 06, 2023 [facility] March 05, 2023 [facility] March 04, 2023 [facility] March 03, 2023 [facility] March 02, 2023 [facility] March 01, 2023 [facility] February 28, 2023 [facility] February 27, 2023 [facility] February 26, 2023 [facility] February 25, 2023 [facility] February 24, 2023 [facility] February 23, 2023 [facility] February 22, 2023 [facility] BP Sitting (Pre-Dialysis) 152/80 mmHg BP Standing (Pre-Dialysis) 140/76 mmHg Sitting Heart Rate Pre-Dialysis 77 BPM Standing Heart Rate Pre-Dialysis 73 BPM Temperature Pre-Dialysis 97.9 degF Weight Pre-Dialysis 51.6 kg February 22, 2023 [facility] February 21, 2023 [facility] February 20, 2023 [facility] February 19, 2023 [facility] February 18, 2023 [facility] February 17, 2023 [facility] February 16, 2023 [facility] February 15, 2023 [facility] February 14, 2023 [facility] February 13, 2023 [facility] February 12, 2023 [facility] February 11, 2023 [facility] February 10, 2023 [facility] February 09, 2023 [facility] February 08, 2023 [facility] February 07, 2023 [facility] February 06, 2023 [facility] BP Sitting (Pre-Dialysis) 123/77 mmHg BP Standing (Pre-Dialysis) 120/75 mmHg Sitting Heart Rate Pre-Dialysis 73 BPM Standing Heart Rate Pre-Dialysis 73 BPM Temperature Pre-Dialysis 95 degF Weight Pre-Dialysis 50.3 kg February 06, 2023 [facility] February 05, 2023 [facility] February 04, 2023 [facility] February 03, 2023 [facility] February 02, 2023 [facility] February 01, 2023 [facility] January 31, 2023 [facility] January 30, 2023 [facility] January 29, 2023 [facility] January 28, 2023 [facility] January 27, 2023 [facility] January 26, 2023 [facility] January 25, 2023 [facility] January 24, 2023 [facility] BP Sitting (Pre-Dialysis) 140/83 mmHg BP Standing (Pre-Dialysis) 119/81 mmHg Sitting Heart Rate Pre-Dialysis 70 BPM Standing Heart Rate Pre-Dialysis 68 BPM Temperature Pre-Dialysis 97.3 degF Weight Pre-Dialysis 53.1 kg January 24, 2023 [facility] January 23, 2023 [facility] January 22, 2023 [facility] January 21, 2023 [facility] January 20, 2023 [facility] January 19, 2023 [facility] January 18, 2023 [facility] January 17, 2023 [facility] January 16, 2023 [facility] January 15, 2023 [facility] January 14, 2023 [facility] January 13, 2023 [facility] January 12, 2023 [facility] January 11, 2023 [facility] January 10, 2023 [facility] BP Sitting (Pre-Dialysis) 136/75 mmHg BP Standing (Pre-Dialysis) 136/75 mmHg Sitting Heart Rate Pre-Dialysis 77 BPM Standing Heart Rate Pre-Dialysis 77 BPM Temperature Pre-Dialysis 97.3 degF Weight Pre-Dialysis 51.3 kg January 10, 2023 [facility] January 09, 2023 [facility] January 08, 2023 [facility] January 07, 2023 [facility] January 06, 2023 [facility] January 05, 2023 [facility] January 04, 2023 [facility] January 03, 2023 [facility] January 02, 2023 [facility] January 01, 2023 [facility] December 31, 2022 [facility] BP Sitting (Pre-Dialysis) 137/76 mmHg BP Standing (Pre-Dialysis) 149/79 mmHg Sitting Heart Rate Pre-Dialysis 79 BPM Standing Heart Rate Pre-Dialysis 78 BPM Temperature Pre-Dialysis 97.3 degF Weight Pre-Dialysis 52.2 kg December 31, 2022 [facility] December 30, 2022 [facility] December 29, 2022 [facility] December 28, 2022 [facility] December 27, 2022 [facility] December 26, 2022 [facility] December 25, 2022 [facility] December 24, 2022 [facility] December 23, 2022 [facility] December 22, 2022 [facility] December 21, 2022 [facility] December 20, 2022 [facility] December 19, 2022 [facility] December 18, 2022 [facility] December 17, 2022 [facility] December 16, 2022 [facility] December 15, 2022 [facility] December 14, 2022 [facility] December 13, 2022 [facility] December 12, 2022 [facility] BP Sitting (Pre-Dialysis) 122/76 mmHg BP Standing (Pre-Dialysis) 127/75 mmHg Sitting Heart Rate Pre-Dialysis 85 BPM Standing Heart Rate Pre-Dialysis 92 BPM Temperature Pre-Dialysis 97.7 degF Weight Pre-Dialysis 51.4 kg December 12, 2022 [facility] December 11, 2022 [facility] December 10, 2022 [facility] December 09, 2022 [facility] December 08, 2022 [facility] December 07, 2022 [facility] December 06, 2022 [facility] December 05, 2022 [facility] December 04, 2022 [facility] December 03, 2022 [facility] December 02, 2022 [facility] December 01, 2022 [facility] November 30, 2022 [facility] BP Sitting (Pre-Dialysis) 132/77 mmHg BP Standing (Pre-Dialysis) 132/77 mmHg Sitting Heart Rate Pre-Dialysis 83 BPM Standing Heart Rate Pre-Dialysis 87 BPM Temperature Pre-Dialysis 97.3 degF Weight Pre-Dialysis 50.4 kg November 30, 2022 [facility] November 29, 2022 [facility] November 28, 2022 [facility] November 27, 2022 [facility] November 26, 2022 [facility] November 25, 2022 [facility] November 24, 2022 [facility] November 23, 2022 [facility] November 22, 2022 [facility] November 21, 2022 [facility] November 20, 2022 [facility] November 19, 2022 [facility] November 18, 2022 [facility] November 17, 2022 [facility] November 16, 2022 [facility] November 15, 2022 [facility] November 14, 2022 [facility] November 13, 2022 [facility] November 12, 2022 [facility] November 11, 2022 [facility] November 10, 2022 [facility] November 09, 2022 [facility] 2022 [facility] BP Sitting (Pre-Dialysis) 102/70 mmHg BP Standing (Pre-Dialysis) 102/70 mmHg Sitting Heart Rate Pre-Dialysis 72 BPM Standing Heart Rate Pre-Dialysis 72 BPM Temperature Pre-Dialysis 97.7 degF Weight Pre-Dialysis 48.2 kg 2022 [facility] November 07, 2022 [facility] November 06, 2022 [facility] November 05, 2022 [facility] BP Sitting (Pre-Dialysis) 113/74 mmHg BP Standing (Pre-Dialysis) 125/70 mmHg Sitting Heart Rate Pre-Dialysis 74 BPM Standing Heart Rate Pre-Dialysis 74 BPM Temperature Pre-Dialysis 98.1 degF Weight Pre-Dialysis 48.5 kg November 05, 2022 [facility] November 04, 2022 [facility] November 03, 2022 [facility] November 02, 2022 [facility] November 01, 2022 [facility] October 31, 2022 [facility] October 30, 2022 [facility] October 29, 2022 [facility] October 28, 2022 [facility] October 27, 2022 [facility] October 26, 2022 [facility] October 25, 2022 [facility] October 24, 2022 [facility] October 23, 2022 [facility] October 22, 2022 [facility] October 21, 2022 [facility] October 20, 2022 [facility] October 19, 2022 [facility] October 18, 2022 [facility] October 17, 2022 [facility] October 16, 2022 [facility] October 15, 2022 [facility] October 14, 2022 [facility] October 13, 2022 [facility] October 12, 2022 [facility] October 11, 2022 [facility] October 10, 2022 [facility] BP Sitting (Pre-Dialysis) 132/69 mmHg BP Standing (Pre-Dialysis) 108/70 mmHg Sitting Heart Rate Pre-Dialysis 68 BPM Standing Heart Rate Pre-Dialysis 68 BPM Temperature Pre-Dialysis 96.7 degF Weight Pre-Dialysis 49.4 kg October 10, 2022 [facility] October 09, 2022 [facility] October 08, 2022 [facility] October 07, 2022 [facility] October 06[facility] 2022 [facility] October 05[facility] 2022 [facility] October 04, 2022 [facility] October 03, 2022 [facility] October 02, 2022 [facility] October 01, 2022 [facility] September 30, 2022 [facility] DIALYSIS ORDER Dialysis Procedure Orders Type of Dialysis Procedure Order Order Date/Time Observations [facility] May 29, 2024 Target Weight 50 kg Ordered Access Type Peritoneal dialysis catheter Vendor [employer] Total Fill Volume per 24 Hour 7200 mL Target Cycler Total Time 9hr Treatment Location Display At Patient's Home Target Weight with Prescribed Day Fill N o Training Element No Training Incremental Increase Flag No Day Exchange Delivery Method No Day Exch mery Overnight Exchange Delivery Method Cycle r Overnight Exchange Number of Exchanges 4 Overnight Exchange Calcium 2.5 mEq/L Overnight Exchange Magnesium 0.5 mEq/L Overnight Exchange Target Dwell TimeOver night Exchange Info 1 hr 52 Min Fill Number: 1 pd_solution_strength_code_id Varied-See Instruction(s) Fill Number: 2 fill_volume pd_solution_strength_code_id Varied-See Instruction(s) Fill Number: 3 fill_volume pd_solution_strength_code_id Varied-See Instruction(s) Fill Number: 4 fill_volume pd_solution_strength_code_id Varied-See Instruction(s) Results Adequacy Description Draw Date Result/Unit Status Ref Range Result Comments BUN/CREAT 2024-11-07 14:42:13 4.2 Calc F 8.2-46.0 BUN/CREAT 2024-11-07 14:42:13 4.2 Calc F 8.2-46.0 BUN/CREAT 2024-11-07 14:42:13 4.2 Calc F 8.2-46.0 BUN/CREAT 2024-11-07 14:42:13 4.2 Calc F 8.2-46.0 Urea nitrogen [Mass/volume] in Serum or Plasma 2024-11-07 14:41:20 56 mg/dL F 9.0-23.0 Creatinine [Mass/volume] in Serum or Plasma 2024-11-07 14:41:20 13.3 mg/dL F 0.5-1.1 Creatinine [Mass/volume] in Serum or Plasma 2024-11-07 14:41:20 13.3 mg/dL F 0.5-1.1 Urea nitrogen [Mass/volume] in Serum or Plasma 2024-11-07 14:41:20 56 mg/dL F 9.0-23.0 Urea nitrogen [Mass/volume] in Serum or Plasma 2024-11-07 14:41:20 56 mg/dL F 9.0-23.0 Creatinine [Mass/volume] in Serum or Plasma 2024-11-07 14:41:20 13.3 mg/dL F 0.5-1.1 Creatinine [Mass/volume] in Serum or Plasma 2024-11-07 14:41:20 13.3 mg/dL F 0.5-1.1 Urea nitrogen [Mass/volume] in Serum or Plasma 2024-11-07 14:41:20 56 mg/dL F 9.0-23.0 UREA CLR UR 2024-09-23 05:36:46 1.2 mL/min F KT/V TOTAL (F) 2024-09-23 05:36:46 1.73 Kt/V F L/WK/1.73 TOTAL 2024-09-23 05:36:46 40.99 L/WK/B F L/WK RESID CC 2024-09-23 05:36:46 15.28 L/wk F L/WK/1.73 RESID 2024-09-23 05:36:46 16.95 L/WK/B F KT/V RESID (F) 2024-09-23 05:36:46 0.42 Kt/V F UREA CLR UR/BSA 2024-09-23 05:36:46 1.3 mL/min F 64.0-99.0 CRE CLR UR/BSA 2024-09-23 05:36:46 2 mL/min F 75.0-115.0 CRE CLR UR 2024-09-23 05:36:46 2 mL/min F 88.0-128.0 KT/V RESID (F) 2024-09-23 05:36:46 0.42 Kt/V F KT/V TOTAL (F) 2024-09-23 05:36:46 1.73 Kt/V F UREA CLR UR 2024-09-23 05:36:46 1.2 mL/min F L/WK RESID CC 2024-09-23 05:36:46 15.28 L/wk F L/WK/1.73 TOTAL 2024-09-23 05:36:46 40.99 L/WK/B F L/WK/1.73 RESID 2024-09-23 05:36:46 16.95 L/WK/B F UREA CLR UR/BSA 2024-09-23 05:36:46 1.3 mL/min F 64.0-99.0 CRE CLR UR/BSA 2024-09-23 05:36:46 2 mL/min F 75.0-115.0 CRE CLR UR 2024-09-23 05:36:46 2 mL/min F 88.0-128.0 NPCR PD FEMALE 2024-09-23 05:36:46 0.68 G/KG/D F Urea Gen Rate 2024-09-23 05:36:46 5.7 GM/D F NPNA-PD FEMALE 2024-09-23 05:36:46 0.91 G/KG/D F PNA (PD) 2024-09-23 05:36:46 44.4 g/day F PCR PD FEMALE 2024-09-23 05:36:46 33.4 g/day F NPNA-PD FEMALE 2024-09-23 05:36:46 0.91 G/KG/D F PNA (PD) 2024-09-23 05:36:46 44.4 g/day F Urea Gen Rate 2024-09-23 05:36:46 5.7 GM/D F PCR PD FEMALE 2024-09-23 05:36:46 33.4 g/day F NPCR PD FEMALE 2024-09-23 05:36:46 0.68 G/KG/D F Creatinine [Mass/volume] in Urine 2024-09-23 05:35:26 85.57 mg/dL F Urea nitrogen [Mass/volume] in Urine 2024-09-23 05:35:26 232 mg/dL F Creatinine [Mass/volume] in Urine 2024-09-23 05:35:26 85.57 mg/dL F Urea nitrogen [Mass/volume] in Urine 2024-09-23 05:35:26 232 mg/dL F KT/V PDF (F) 2024-09-23 05:32:20 1.31 Kt/V F L/WK/1.73 [facility] 2024-09-23 05:32:20 24.04 L/WK/B F L/WK PDF 2024-09-23 05:32:20 21.67 L/wk F KT/V PDF (F) 2024-09-23 05:32:20 1.31 Kt/V F L/WK/1.73 [facility] 2024-09-23 05:32:20 24.04 L/WK/B F L/WK PDF 2024-09-23 05:32:20 21.67 L/wk F Creatinine [Mass/volume] in Peritoneal dialysis fluid 2024-09-23 05:26:23 4.72 mg/dL F Urea nitrogen [Mass/volume] in Peritoneal fluid --24 hours post peritoneal dialysis 2024-09-23 05:26:23 35 mg/dL F Urea nitrogen [Mass/volume] in Peritoneal fluid --24 hours post peritoneal dialysis 2024-09-23 05:26:23 35 mg/dL F Creatinine [Mass/volume] in Peritoneal dialysis fluid 2024-09-23 05:26:23 4.72 mg/dL F BSA [facility] 2024-09-23 01:41:30 1.56 sq m F [facility] 2024-09-23 01:41:30 28.41 Liters F BUN/CREAT 2024-09-23 01:41:30 4.3 Calc F 8.2-46.0 [facility] 2024-09-23 01:41:30 28.41 Liters F BSA [facility] 2024-09-23 01:41:30 1.56 sq m F BUN/CREAT 2024-09-23 01:41:30 4.3 Calc F 8.2-46.0 Creatinine [Mass/volume] in Serum or Plasma 2024-09-23 01:40:16 12.78 mg/dL F 0.5-1.1 Urea nitrogen [Mass/volume] in Serum or Plasma 2024-09-23 01:40:16 55 mg/dL F 9.0-23.0 Creatinine [Mass/volume] in Serum or Plasma 2024-09-23 01:40:16 12.78 mg/dL F 0.5-1.1 Urea nitrogen [Mass/volume] in Serum or Plasma 2024-09-23 01:40:16 55 mg/dL F 9.0-23.0 HEIGHT IN INCHES 2024-09-21 21:43:26 64 Inches F BODY WEIGHT (LBS) 2024-09-21 21:43:26 117.1 lbs F AMPUTATE FACTOR 2024-09-21 21:43:26 0 F BODY WEIGHT (LBS) 2024-09-21 21:43:26 117.1 lbs F AMPUTATE FACTOR 2024-09-21 21:43:26 0 F HEIGHT IN INCHES 2024-09-21 21:43:26 64 Inches F MINIMUM GOAL: KT/V PD 2024-09-21 21:43:26 1.7 F Total Volume of EFFL/DIAL 2024-09-21 21:43:26 8383 mLs F MINIMUM GOAL: KT/V PD 2024-09-21 21:43:26 1.7 F Total Volume of EFFL/DIAL 2024-09-21 21:43:26 8383 mLs F COLLECTION TIME FOR URINE 2024-09-21 21:43:26 1440 min F TOTAL VOLUME-24 HR URINE 2024-09-21 21:43:26 400 mL F TOTAL VOLUME-24 HR URINE 2024-09-21 21:43:26 400 mL F COLLECTION TIME FOR URINE 2024-09-21 21:43:26 1440 min F BUN/CREAT 2024-08-27 22:07:01 4.9 Calc F 8.2-46.0 Creatinine [Mass/volume] in Serum or Plasma 2024-08-26 21:21:14 12.01 mg/dL F 0.5-1.1 Urea nitrogen [Mass/volume] in Serum or Plasma 2024-08-26 21:21:14 59 mg/dL F 9.0-23.0 BUN/CREAT 2024-07-29 00:58:10 5.3 Calc F 8.2-46.0 Creatinine [Mass/volume] in Serum or Plasma 2024-07-29 00:57:25 11.53 mg/dL F 0.5-1.1 Urea nitrogen [Mass/volume] in Serum or Plasma 2024-07-29 00:57:25 61 mg/dL F 9.0-23.0 NPCR PD FEMALE 2024-06-30 19:47:26 0.74 G/KG/D F KT/V TOTAL (F) 2024-06-30 19:47:26 1.63 Kt/V F PCR PD FEMALE 2024-06-30 19:47:26 35.6 g/day F L/WK RESID CC 2024-06-30 19:47:26 13.66 L/wk F UREA CLR UR 2024-06-30 19:47:26 1 mL/min F PNA (PD) 2024-06-30 19:47:26 47.1 g/day F KT/V RESID (F) 2024-06-30 19:47:26 0.35 Kt/V F L/WK/1.73 TOTAL 2024-06-30 19:47:26 41.11 L/WK/B F Urea Gen Rate 2024-06-30 19:47:26 6.3 GM/D F L/WK/1.73 RESID 2024-06-30 19:47:26 15.39 L/WK/B F NPNA-PD FEMALE 2024-06-30 19:47:26 0.98 G/KG/D F UREA CLR UR/BSA 2024-06-30 19:47:26 1.1 mL/min F 64.0-99.0 CRE CLR UR/BSA 2024-06-30 19:47:26 2 mL/min F 75.0-115.0 CRE CLR UR 2024-06-30 19:47:26 2 mL/min F 88.0-128.0 UREA CLR UR 2024-06-30 19:47:26 1 mL/min F L/WK RESID CC 2024-06-30 19:47:26 13.66 L/wk F KT/V TOTAL (F) 2024-06-30 19:47:26 1.63 Kt/V F L/WK/1.73 RESID 2024-06-30 19:47:26 15.39 L/WK/B F PNA (PD) 2024-06-30 19:47:26 47.1 g/day F NPNA-PD FEMALE 2024-06-30 19:47:26 0.98 G/KG/D F NPCR PD FEMALE 2024-06-30 19:47:26 0.74 G/KG/D F KT/V RESID (F) 2024-06-30 19:47:26 0.35 Kt/V F PCR PD FEMALE 2024-06-30 19:47:26 35.6 g/day F L/WK/1.73 TOTAL 2024-06-30 19:47:26 41.11 L/WK/B F Urea Gen Rate 2024-06-30 19:47:26 6.3 GM/D F UREA CLR UR/BSA 2024-06-30 19:47:26 1.1 mL/min F 64.0-99.0 CRE CLR UR/BSA 2024-06-30 19:47:26 2 mL/min F 75.0-115.0 CRE CLR UR 2024-06-30 19:47:26 2 mL/min F 88.0-128.0 UREA CLR UR/BSA 2024-06-30 19:47:26 1.1 mL/min F 64.0-99.0 CRE CLR UR/BSA 2024-06-30 19:47:26 2 mL/min F 75.0-115.0 PNA (PD) 2024-06-30 19:47:26 47.1 g/day F NPNA-PD FEMALE 2024-06-30 19:47:26 0.98 G/KG/D F Urea Gen Rate 2024-06-30 19:47:26 6.3 GM/D F PCR PD FEMALE 2024-06-30 19:47:26 35.6 g/day F CRE CLR UR 2024-06-30 19:47:26 2 mL/min F 88.0-128.0 L/WK/1.73 RESID 2024-06-30 19:47:26 15.39 L/WK/B F L/WK/1.73 TOTAL 2024-06-30 19:47:26 41.11 L/WK/B F L/WK RESID CC 2024-06-30 19:47:26 13.66 L/wk F KT/V RESID (F) 2024-06-30 19:47:26 0.35 Kt/V F NPCR PD FEMALE 2024-06-30 19:47:26 0.74 G/KG/D F UREA CLR UR 2024-06-30 19:47:26 1 mL/min F KT/V TOTAL (F) 2024-06-30 19:47:26 1.63 Kt/V F Urea nitrogen [Mass/volume] in Urine 2024-06-30 19:47:18 301 mg/dL F Creatinine [Mass/volume] in Urine 2024-06-30 19:47:18 86.19 mg/dL F Urea nitrogen [Mass/volume] in Urine 2024-06-30 19:47:18 301 mg/dL F Creatinine [Mass/volume] in Urine 2024-06-30 19:47:18 86.19 mg/dL F Urea nitrogen [Mass/volume] in Urine 2024-06-30 19:47:18 301 mg/dL F Creatinine [Mass/volume] in Urine 2024-06-30 19:47:18 86.19 mg/dL F L/WK PDF CC 2024-06-30 17:57:52 22.81 L/wk F L/WK/1.73 PDF 2024-06-30 17:57:52 25.72 L/WK/B F KT/V PDF (F) 2024-06-30 17:57:52 1.28 Kt/V F L/WK/1.73 PDF 2024-06-30 17:57:52 25.72 L/WK/B F KT/V PDF (F) 2024-06-30 17:57:52 1.28 Kt/V F L/WK PDF CC 2024-06-30 17:57:52 22.81 L/wk F L/WK PDF CC 2024-06-30 17:57:52 22.81 L/wk F L/WK/1.73 PDF 2024-06-30 17:57:52 25.72 L/WK/B F KT/V PDF (F) 2024-06-30 17:57:52 1.28 Kt/V F Creatinine [Mass/volume] in Peritoneal dialysis fluid 2024-06-30 17:57:19 4.64 mg/dL F Urea nitrogen [Mass/volume] in Peritoneal fluid --24 hours post peritoneal dialysis 2024-06-30 17:57:19 46 mg/dL F Creatinine [Mass/volume] in Peritoneal dialysis fluid 2024-06-30 17:57:19 4.64 mg/dL F Urea nitrogen [Mass/volume] in Peritoneal fluid --24 hours post peritoneal dialysis 2024-06-30 17:57:19 46 mg/dL F Creatinine [Mass/volume] in Peritoneal dialysis fluid 2024-06-30 17:57:19 4.64 mg/dL F Urea nitrogen [Mass/volume] in Peritoneal fluid --24 hours post peritoneal dialysis 2024-06-30 17:57:19 46 mg/dL F [facility] 2024-06-30 17:32:10 27.92 Liters F BSA [facility] 2024-06-30 17:32:10 1.53 sq m F BUN/CREAT 2024-06-30 17:32:10 6.3 Calc F 8.2-46.0 BSA [facility] 2024-06-30 17:32:10 1.53 sq m F [facility] 2024-06-30 17:32:10 27.92 Liters F BUN/CREAT 2024-06-30 17:32:10 6.3 Calc F 8.2-46.0 BUN/CREAT 2024-06-30 17:32:10 6.3 Calc F 8.2-46.0 BSA [facility] 2024-06-30 17:32:10 1.53 sq m F [facility] 2024-06-30 17:32:10 27.92 Liters F Creatinine [Mass/volume] in Serum or Plasma 2024-06-30 17:31:20 10.29 mg/dL F 0.5-1.1 Urea nitrogen [Mass/volume] in Serum or Plasma 2024-06-30 17:31:20 65 mg/dL F 9.0-23.0 Creatinine [Mass/volume] in Serum or Plasma 2024-06-30 17:31:20 10.29 mg/dL F 0.5-1.1 Urea nitrogen [Mass/volume] in Serum or Plasma 2024-06-30 17:31:20 65 mg/dL F 9.0-23.0 Creatinine [Mass/volume] in Serum or Plasma 2024-06-30 17:31:20 10.29 mg/dL F 0.5-1.1 Urea nitrogen [Mass/volume] in Serum or Plasma 2024-06-30 17:31:20 65 mg/dL F 9.0-23.0 AMPUTATE FACTOR 2024-06-29 20:22:53 0 F Total Volume of EFFL/DIAL 2024-06-29 20:22:53 7228 mLs F MINIMUM GOAL: KT/V PD 2024-06-29 20:22:53 1.7 F BODY WEIGHT (LBS) 2024-06-29 20:22:53 112.8 lbs F HEIGHT IN INCHES 2024-06-29 20:22:53 64 Inches F Total Volume of EFFL/DIAL 2024-06-29 20:22:53 7228 mLs F HEIGHT IN INCHES 2024-06-29 20:22:53 64 Inches F BODY WEIGHT (LBS) 2024-06-29 20:22:53 112.8 lbs F MINIMUM GOAL: KT/V PD 2024-06-29 20:22:53 1.7 F AMPUTATE FACTOR 2024-06-29 20:22:53 0 F Total Volume of EFFL/DIAL 2024-06-29 20:22:53 7228 mLs F HEIGHT IN INCHES 2024-06-29 20:22:53 64 Inches F BODY WEIGHT (LBS) 2024-06-29 20:22:53 112.8 lbs F AMPUTATE FACTOR 2024-06-29 20:22:53 0 F MINIMUM GOAL: KT/V PD 2024-06-29 20:22:53 1.7 F COLLECTION TIME FOR URINE 2024-06-29 20:22:53 1440 min F TOTAL VOLUME-24 HR URINE 2024-06-29 20:22:53 300 mL F TOTAL VOLUME-24 HR URINE 2024-06-29 20:22:53 300 mL F COLLECTION TIME FOR URINE 2024-06-29 20:22:53 1440 min F COLLECTION TIME FOR URINE 2024-06-29 20:22:53 1440 min F TOTAL VOLUME-24 HR URINE 2024-06-29 20:22:53 300 mL F BUN/CREAT 2024-06-05 02:59:36 5.6 Calc F 8.2-46.0 BUN/CREAT 2024-06-05 02:59:36 5.6 Calc F 8.2-46.0 Creatinine [Mass/volume] in Serum or Plasma 2024-06-05 00:49:05 12.04 mg/dL F 0.5-1.1 Urea nitrogen [Mass/volume] in Serum or Plasma 2024-06-05 00:49:05 68 mg/dL F 9.0-23.0 Creatinine [Mass/volume] in Serum or Plasma 2024-06-05 00:49:05 12.04 mg/dL F 0.5-1.1 Urea nitrogen [Mass/volume] in Serum or Plasma 2024-06-05 00:49:05 68 mg/dL F 9.0-23.0 BUN/CREAT 2024-04-30 23:33:12 6 Calc F 8.2-46.0 BUN/CREAT 2024-04-30 23:33:12 6 Calc F 8.2-46.0 BUN/CREAT 2024-04-30 23:33:12 6 Calc F 8.2-46.0 Creatinine [Mass/volume] in Serum or Plasma 2024-04-30 23:32:39 11.19 mg/dL F 0.5-1.1 Urea nitrogen [Mass/volume] in Serum or Plasma 2024-04-30 23:32:39 67 mg/dL F 9.0-23.0 Creatinine [Mass/volume] in Serum or Plasma 2024-04-30 23:32:39 11.19 mg/dL F 0.5-1.1 Urea nitrogen [Mass/volume] in Serum or Plasma 2024-04-30 23:32:39 67 mg/dL F 9.0-23.0 Urea nitrogen [Mass/volume] in Serum or Plasma 2024-04-30 23:32:39 67 mg/dL F 9.0-23.0 Creatinine [Mass/volume] in Serum or Plasma 2024-04-30 23:32:39 11.19 mg/dL F 0.5-1.1 L/WK/1.73 TOTAL 2024-03-26 03:17:30 42.04 L/WK/B F L/WK RESID CC 2024-03-26 03:17:30 13.88 L/wk F KT/V RESID (F) 2024-03-26 03:17:30 0.33 Kt/V F KT/V TOTAL (F) 2024-03-26 03:17:30 1.57 Kt/V F L/WK/1.73 RESID 2024-03-26 03:17:30 15.57 L/WK/B F UREA CLR UR 2024-03-26 03:17:30 0.9 mL/min F UREA CLR UR/BSA 2024-03-26 03:17:30 1 mL/min F 64.0-99.0 CRE CLR UR 2024-03-26 03:17:30 2 mL/min F 88.0-128.0 CRE CLR UR/BSA 2024-03-26 03:17:30 2 mL/min F 75.0-115.0 L/WK/1.73 TOTAL 2024-03-26 03:17:30 42.04 L/WK/B F KT/V RESID (F) 2024-03-26 03:17:30 0.33 Kt/V F CRE CLR UR/BSA 2024-03-26 03:17:30 2 mL/min F 75.0-115.0 UREA CLR UR/BSA 2024-03-26 03:17:30 1 mL/min F 64.0-99.0 UREA CLR UR 2024-03-26 03:17:30 0.9 mL/min F L/WK/1.73 RESID 2024-03-26 03:17:30 15.57 L/WK/B F CRE CLR UR 2024-03-26 03:17:30 2 mL/min F 88.0-128.0 KT/V TOTAL (F) 2024-03-26 03:17:30 1.57 Kt/V F L/WK RESID CC 2024-03-26 03:17:30 13.88 L/wk F NPNA-PD FEMALE 2024-03-26 03:17:30 0.97 G/KG/D F PCR PD FEMALE 2024-03-26 03:17:30 35.6 g/day F PNA (PD) 2024-03-26 03:17:30 47 g/day F NPCR PD FEMALE 2024-03-26 03:17:30 0.74 G/KG/D F Urea Gen Rate 2024-03-26 03:17:30 6.3 GM/D F PNA (PD) 2024-03-26 03:17:30 47 g/day F NPNA-PD FEMALE 2024-03-26 03:17:30 0.97 G/KG/D F PCR PD FEMALE 2024-03-26 03:17:30 35.6 g/day F NPCR PD FEMALE 2024-03-26 03:17:30 0.74 G/KG/D F Urea Gen Rate 2024-03-26 03:17:30 6.3 GM/D F Creatinine [Mass/volume] in Urine 2024-03-26 03:16:40 87.3 mg/dL F Urea nitrogen [Mass/volume] in Urine 2024-03-26 03:16:40 297 mg/dL F Urea nitrogen [Mass/volume] in Urine 2024-03-26 03:16:40 297 mg/dL F Creatinine [Mass/volume] in Urine 2024-03-26 03:16:40 87.3 mg/dL F L/WK PDF CC 2024-03-26 00:17:47 23.59 L/wk F L/WK/1.73 PDF 2024-03-26 00:17:47 26.47 L/WK/B F KT/V PDF (F) 2024-03-26 00:17:47 1.24 Kt/V F L/WK/1.73 PDF 2024-03-26 00:17:47 26.47 L/WK/B F KT/V PDF (F) 2024-03-26 00:17:47 1.24 Kt/V F L/WK PDF CC 2024-03-26 00:17:47 23.59 L/wk F Creatinine [Mass/volume] in Peritoneal dialysis fluid 2024-03-26 00:17:32 4.24 mg/dL F Urea nitrogen [Mass/volume] in Peritoneal fluid --24 hours post peritoneal dialysis 2024-03-26 00:17:32 42 mg/dL F Creatinine [Mass/volume] in Peritoneal dialysis fluid 2024-03-26 00:17:32 4.24 mg/dL F Urea nitrogen [Mass/volume] in Peritoneal fluid --24 hours post peritoneal dialysis 2024-03-26 00:17:32 42 mg/dL F BSA ELIZABETH 2024-03-25 17:20:21 1.54 sq m F [facility] 2024-03-25 17:20:21 28.06 Liters F BUN/CREAT 2024-03-25 17:20:21 6.7 Calc F 8.2-46.0 TBW [facility] 2024-03-25 17:20:21 28.06 Liters F BUN/CREAT 2024-03-25 17:20:21 6.7 Calc F 8.2-46.0 BSA ELIZABETH 2024-03-25 17:20:21 1.54 sq m F Creatinine [Mass/volume] in Serum or Plasma 2024-03-25 17:19:38 9.94 mg/dL F 0.5-1.1 Urea nitrogen [Mass/volume] in Serum or Plasma 2024-03-25 17:19:38 67 mg/dL F 9.0-23.0 Creatinine [Mass/volume] in Serum or Plasma 2024-03-25 17:19:38 9.94 mg/dL F 0.5-1.1 Urea nitrogen [Mass/volume] in Serum or Plasma 2024-03-25 17:19:38 67 mg/dL F 9.0-23.0 HEIGHT IN INCHES 2024-03-23 20:55:50 64 Inches F BODY WEIGHT (LBS) 2024-03-23 20:55:50 114 lbs F AMPUTATE FACTOR 2024-03-23 20:55:50 0 F BODY WEIGHT (LBS) 2024-03-23 20:55:50 114 lbs F AMPUTATE FACTOR 2024-03-23 20:55:50 0 F HEIGHT IN INCHES 2024-03-23 20:55:50 64 Inches F MINIMUM GOAL: KT/V PD 2024-03-23 20:55:50 1.7 F Total Volume of EFFL/DIAL 2024-03-23 20:55:50 7901 mLs F Total Volume of EFFL/DIAL 2024-03-23 20:55:50 7901 mLs F MINIMUM GOAL: KT/V PD 2024-03-23 20:55:50 1.7 F TOTAL VOLUME-24 HR URINE 2024-03-23 20:55:50 300 mL F COLLECTION TIME FOR URINE 2024-03-23 20:55:50 1440 min F COLLECTION TIME FOR URINE 2024-03-23 20:55:50 1440 min F TOTAL VOLUME-24 HR URINE 2024-03-23 20:55:50 300 mL F BUN/CREAT 2024-02-25 17:38:39 6.4 Calc F 8.2-46.0 Creatinine [Mass/volume] in Serum or Plasma 2024-02-25 17:38:35 9.73 mg/dL F 0.5-1.1 Urea nitrogen [Mass/volume] in Serum or Plasma 2024-02-25 17:38:35 62 mg/dL F 9.0-23.0 BUN/CREAT 2024-01-24 16:31:51 6.6 Calc F 8.2-46.0 BUN/CREAT 2024-01-24 16:31:51 6.6 Calc F 8.2-46.0 BUN/CREAT 2024-01-24 16:31:51 6.6 Calc F 8.2-46.0 Creatinine [Mass/volume] in Serum or Plasma 2024-01-24 16:30:47 9 mg/dL F 0.5-1.1 Urea nitrogen [Mass/volume] in Serum or Plasma 2024-01-24 16:30:47 59 mg/dL F 9.0-23.0 Creatinine [Mass/volume] in Serum or Plasma 2024-01-24 16:30:47 9 mg/dL F 0.5-1.1 Urea nitrogen [Mass/volume] in Serum or Plasma 2024-01-24 16:30:47 59 mg/dL F 9.0-23.0 Creatinine [Mass/volume] in Serum or Plasma 2024-01-24 16:30:47 9 mg/dL F 0.5-1.1 Urea nitrogen [Mass/volume] in Serum or Plasma 2024-01-24 16:30:47 59 mg/dL F 9.0-23.0 KT/V TOTAL (F) 2024-01-01 16:44:13 1.83 Kt/V K L/WK/1.73 TOTAL 2024-01-01 16:44:13 47.52 L/WK/B K L/WK/1.73 RESID 2024-01-01 16:44:13 24.61 L/WK/B K UREA CLR UR 2024-01-01 16:44:13 1.7 mL/min K L/WK RESID CC 2024-01-01 16:44:13 21.69 L/wk K KT/V RESID (F) 2024-01-01 16:44:13 0.62 Kt/V K UREA CLR UR/BSA 2024-01-01 16:44:13 1.9 mL/min K 64.0-99.0 CRE CLR UR/BSA 2024-01-01 16:44:13 3 mL/min K 75.0-115.0 CRE CLR UR 2024-01-01 16:44:13 3 mL/min K 88.0-128.0 L/WK/1.73 RESID 2024-01-01 16:44:13 24.61 L/WK/B K KT/V TOTAL (F) 2024-01-01 16:44:13 1.83 Kt/V K KT/V RESID (F) 2024-01-01 16:44:13 0.62 Kt/V K L/WK/1.73 TOTAL 2024-01-01 16:44:13 47.52 L/WK/B K L/WK RESID CC 2024-01-01 16:44:13 21.69 L/wk K UREA CLR UR 2024-01-01 16:44:13 1.7 mL/min K UREA CLR UR/BSA 2024-01-01 16:44:13 1.9 mL/min K 64.0-99.0 CRE CLR UR/BSA 2024-01-01 16:44:13 3 mL/min K 75.0-115.0 CRE CLR UR 2024-01-01 16:44:13 3 mL/min K 88.0-128.0 UREA CLR UR 2024-01-01 16:44:13 1.7 mL/min K CRE CLR UR/BSA 2024-01-01 16:44:13 3 mL/min K 75.0-115.0 UREA CLR UR/BSA 2024-01-01 16:44:13 1.9 mL/min K 64.0-99.0 L/WK RESID CC 2024-01-01 16:44:13 21.69 L/wk K L/WK/1.73 RESID 2024-01-01 16:44:13 24.61 L/WK/B K CRE CLR UR 2024-01-01 16:44:13 3 mL/min K 88.0-128.0 L/WK/1.73 TOTAL 2024-01-01 16:44:13 47.52 L/WK/B K KT/V TOTAL (F) 2024-01-01 16:44:13 1.83 Kt/V K KT/V RESID (F) 2024-01-01 16:44:13 0.62 Kt/V K Urea Gen Rate 2024-01-01 16:44:13 5.9 GM/D K PCR PD FEMALE 2024-01-01 16:44:13 34.1 g/day K PNA (PD) 2024-01-01 16:44:13 45.4 g/day K NPCR PD FEMALE 2024-01-01 16:44:13 0.71 G/KG/D K NPNA-PD FEMALE 2024-01-01 16:44:13 0.95 G/KG/D K NPCR PD FEMALE 2024-01-01 16:44:13 0.71 G/KG/D K NPNA-PD FEMALE 2024-01-01 16:44:13 0.95 G/KG/D K PNA (PD) 2024-01-01 16:44:13 45.4 g/day K PCR PD FEMALE 2024-01-01 16:44:13 34.1 g/day K Urea Gen Rate 2024-01-01 16:44:13 5.9 GM/D K NPCR PD FEMALE 2024-01-01 16:44:13 0.71 G/KG/D K PNA (PD) 2024-01-01 16:44:13 45.4 g/day K NPNA-PD FEMALE 2024-01-01 16:44:13 0.95 G/KG/D K PCR PD FEMALE 2024-01-01 16:44:13 34.1 g/day K Urea Gen Rate 2024-01-01 16:44:13 5.9 GM/D K TOTAL VOLUME-24 HR URINE 2024-01-01 16:43:42 400 mL F TOTAL VOLUME-24 HR URINE 2024-01-01 16:43:42 400 mL F TOTAL VOLUME-24 HR URINE 2024-01-01 16:43:42 400 mL F Creatinine [Mass/volume] in Urine 2024-01-01 13:21:38 82.11 mg/dL F Urea nitrogen [Mass/volume] in Urine 2024-01-01 13:21:38 339 mg/dL F Creatinine [Mass/volume] in Urine 2024-01-01 13:21:38 82.11 mg/dL F Urea nitrogen [Mass/volume] in Urine 2024-01-01 13:21:38 339 mg/dL F Urea nitrogen [Mass/volume] in Urine 2024-01-01 13:21:38 339 mg/dL F Creatinine [Mass/volume] in Urine 2024-01-01 13:21:38 82.11 mg/dL F L/WK/1.73 [facility] 2024-01-01 06:19:05 22.91 L/WK/B F KT/V [facility] (F) 2024-01-01 06:19:05 1.21 Kt/V F L/WK [facility] 2024-01-01 06:19:05 20.19 L/wk F L/WK/1.73 [facility] 2024-01-01 06:19:05 22.91 L/WK/B F L/WK [facility] 2024-01-01 06:19:05 20.19 L/wk F KT/V [facility] (F) 2024-01-01 06:19:05 1.21 Kt/V F L/WK [facility] 2024-01-01 06:19:05 20.19 L/wk F L/WK/1.73 [facility] 2024-01-01 06:19:05 22.91 L/WK/B F KT/V [facility] (F) 2024-01-01 06:19:05 1.21 Kt/V F Urea nitrogen [Mass/volume] in Peritoneal fluid --24 hours post peritoneal dialysis 2024-01-01 06:18:33 36 mg/dL F Creatinine [Mass/volume] in Peritoneal dialysis fluid 2024-01-01 06:18:33 3.46 mg/dL F Creatinine [Mass/volume] in Peritoneal dialysis fluid 2024-01-01 06:18:33 3.46 mg/dL F Urea nitrogen [Mass/volume] in Peritoneal fluid --24 hours post peritoneal dialysis 2024-01-01 06:18:33 36 mg/dL F Urea nitrogen [Mass/volume] in Peritoneal fluid --24 hours post peritoneal dialysis 2024-01-01 06:18:33 36 mg/dL F Creatinine [Mass/volume] in Peritoneal dialysis fluid 2024-01-01 06:18:33 3.46 mg/dL F BSA [facility] 2023-12-31 15:56:58 1.52 sq m F [facility] 2023-12-31 15:56:58 27.73 Liters F BUN/CREAT 2023-12-31 15:56:58 6.3 Calc F 8.2-46.0 BSA [facility] 2023-12-31 15:56:58 1.52 sq m F [facility] 2023-12-31 15:56:58 27.73 Liters F BUN/CREAT 2023-12-31 15:56:58 6.3 Calc F 8.2-46.0 [facility] 2023-12-31 15:56:58 27.73 Liters F BUN/CREAT 2023-12-31 15:56:58 6.3 Calc F 8.2-46.0 BSA [facility] 2023-12-31 15:56:58 1.52 sq m F Creatinine [Mass/volume] in Serum or Plasma 2023-12-31 15:56:18 8.8 mg/dL F 0.5-1.1 Creatinine [Mass/volume] in Serum or Plasma 2023-12-31 15:56:18 8.8 mg/dL F 0.5-1.1 Creatinine [Mass/volume] in Serum or Plasma 2023-12-31 15:56:18 8.8 mg/dL F 0.5-1.1 Urea nitrogen [Mass/volume] in Serum or Plasma 2023-12-31 15:56:16 55 mg/dL F 9.0-23.0 Urea nitrogen [Mass/volume] in Serum or Plasma 2023-12-31 15:56:16 55 mg/dL F 9.0-23.0 Urea nitrogen [Mass/volume] in Serum or Plasma 2023-12-31 15:56:16 55 mg/dL F 9.0-23.0 HEIGHT IN INCHES 2023-12-30 20:25:52 64 Inches F AMPUTATE FACTOR 2023-12-30 20:25:52 0 F BODY WEIGHT (LBS) 2023-12-30 20:25:52 111.1 lbs F HEIGHT IN INCHES 2023-12-30 20:25:52 64 Inches F BODY WEIGHT (LBS) 2023-12-30 20:25:52 111.1 lbs F AMPUTATE FACTOR 2023-12-30 20:25:52 0 F BODY WEIGHT (LBS) 2023-12-30 20:25:52 111.1 lbs F HEIGHT IN INCHES 2023-12-30 20:25:52 64 Inches F AMPUTATE FACTOR 2023-12-30 20:25:52 0 F Total Volume of EFFL/DIAL 2023-12-30 20:25:52 7337 mLs F MINIMUM GOAL: KT/V PD 2023-12-30 20:25:52 1.7 F Total Volume of EFFL/DIAL 2023-12-30 20:25:52 7337 mLs F MINIMUM GOAL: KT/V PD 2023-12-30 20:25:52 1.7 F Total Volume of EFFL/DIAL 2023-12-30 20:25:52 7337 mLs F MINIMUM GOAL: KT/V PD 2023-12-30 20:25:52 1.7 F COLLECTION TIME FOR URINE 2023-12-30 20:25:52 1440 min F COLLECTION TIME FOR URINE 2023-12-30 20:25:52 1440 min F COLLECTION TIME FOR URINE 2023-12-30 20:25:52 1440 min F BUN/CREAT 2023-11-30 16:06:55 6.5 Calc F 8.2-46.0 BUN/CREAT 2023-11-30 16:06:55 6.5 Calc F 8.2-46.0 Creatinine [Mass/volume] in Serum or Plasma 2023-11-30 16:06:45 8.44 mg/dL F 0.5-1.1 Creatinine [Mass/volume] in Serum or Plasma 2023-11-30 16:06:45 8.44 mg/dL F 0.5-1.1 Urea nitrogen [Mass/volume] in Serum or Plasma 2023-11-30 16:06:43 55 mg/dL F 9.0-23.0 Urea nitrogen [Mass/volume] in Serum or Plasma 2023-11-30 16:06:43 55 mg/dL F 9.0-23.0 BUN/CREAT 2023-11-02 02:56:44 7.2 Calc F 8.2-46.0 Creatinine [Mass/volume] in Serum or Plasma 2023-11-02 02:56:28 8.09 mg/dL F 0.5-1.1 Urea nitrogen [Mass/volume] in Serum or Plasma 2023-11-02 02:56:28 58 mg/dL F 9.0-23.0 BUN/CREAT 2023-08-31 16:42:39 5.4 Calc F 8.2-46.0 Creatinine [Mass/volume] in Serum or Plasma 2023-08-31 16:42:29 8.75 mg/dL F 0.5-1.1 Urea nitrogen [Mass/volume] in Serum or Plasma 2023-08-31 16:42:29 47 mg/dL F 9.0-23.0 BUN/CREAT 2023-07-23 19:32:43 6.1 Calc F 8.2-46.0 Creatinine [Mass/volume] in Serum or Plasma 2023-07-23 19:32:35 8.22 mg/dL F 0.5-1.1 Urea nitrogen [Mass/volume] in Serum or Plasma 2023-07-23 19:32:35 50 mg/dL F 9.0-23.0 L/WK PDF CC 2023-07-09 21:47:54 19.22 L/wk F L/WK/1.73 TOTAL 2023-07-09 21:47:54 45.69 L/WK/B F KT/V RESID (F) 2023-07-09 21:47:54 0.52 Kt/V F L/WK RESID CC 2023-07-09 21:47:54 21.15 L/wk F KT/V TOTAL () 2023-07-09 21:47:54 1.69 Kt/V F L/WK/1.73 PDF 2023-07-09 21:47:54 21.75 L/WK/B F UREA CLR UR 2023-07-09 21:47:54 1.4 mL/min F L/WK/1.73 RESID 2023-07-09 21:47:54 23.94 L/WK/B F KT/V PDF (F) 2023-07-09 21:47:54 1.18 Kt/V F BUN/CREAT 2023-07-09 21:47:54 6.1 Calc F 8.2-46.0 UREA CLR UR/BSA 2023-07-09 21:47:54 1.6 mL/min F 64.0-99.0 CRE CLR UR/BSA 2023-07-09 21:47:54 3 mL/min F 75.0-115.0 CRE CLR UR 2023-07-09 21:47:54 3 mL/min F 88.0-128.0 UREA CLR UR/BSA 2023-07-09 21:47:54 1.6 mL/min F 64.0-99.0 CRE CLR UR/BSA 2023-07-09 21:47:54 3 mL/min F 75.0-115.0 UREA CLR UR 2023-07-09 21:47:54 1.4 mL/min F BUN/CREAT 2023-07-09 21:47:54 6.1 Calc F 8.2-46.0 L/WK/1.73 RESID 2023-07-09 21:47:54 23.94 L/WK/B F CRE CLR UR 2023-07-09 21:47:54 3 mL/min F 88.0-128.0 L/WK/1.73 TOTAL 2023-07-09 21:47:54 45.69 L/WK/B F L/WK PDF CC 2023-07-09 21:47:54 19.22 L/wk F L/WK RESID CC 2023-07-09 21:47:54 21.15 L/wk F L/WK/1.73 PDF 2023-07-09 21:47:54 21.75 L/WK/B F KT/V TOTAL (F) 2023-07-09 21:47:54 1.69 Kt/V F KT/V RESID (F) 2023-07-09 21:47:54 0.52 Kt/V F KT/V PDF (F) 2023-07-09 21:47:54 1.18 Kt/V F Creatinine [Mass/volume] in Serum or Plasma 2023-07-09 21:47:39 8.02 mg/dL F 0.5-1.1 Urea nitrogen [Mass/volume] in Serum or Plasma 2023-07-09 21:47:39 49 mg/dL F 9.0-23.0 Creatinine [Mass/volume] in Serum or Plasma 2023-07-09 21:47:39 8.02 mg/dL F 0.5-1.1 Urea nitrogen [Mass/volume] in Serum or Plasma 2023-07-09 21:47:39 49 mg/dL F 9.0-23.0 Urea Gen Rate 2023-07-09 17:34:49 4.9 GM/D F NPNA-PD FEMALE 2023-07-09 17:34:49 0.84 G/KG/D F NPCR PD FEMALE 2023-07-09 17:34:49 0.62 G/KG/D F PNA (PD) 2023-07-09 17:34:49 40.1 g/day F PCR PD FEMALE 2023-07-09 17:34:49 29.5 g/day F NPCR PD FEMALE 2023-07-09 17:34:49 0.62 G/KG/D F PNA (PD) 2023-07-09 17:34:49 40.1 g/day F PCR PD FEMALE 2023-07-09 17:34:49 29.5 g/day F Urea Gen Rate 2023-07-09 17:34:49 4.9 GM/D F NPNA-PD FEMALE 2023-07-09 17:34:49 0.84 G/KG/D F Urea nitrogen [Mass/volume] in Urine 2023-07-09 17:34:40 251 mg/dL F Creatinine [Mass/volume] in Urine 2023-07-09 17:34:40 80.08 mg/dL F Urea nitrogen [Mass/volume] in Urine 2023-07-09 17:34:40 251 mg/dL F Creatinine [Mass/volume] in Urine 2023-07-09 17:34:40 80.08 mg/dL F BSA [facility] 2023-07-09 16:16:10 1.53 sq m F [facility] 2023-07-09 16:16:10 27.8 Liters F BSA [facility] 2023-07-09 16:16:10 1.53 sq m F [facility] 2023-07-09 16:16:10 27.8 Liters F Creatinine [Mass/volume] in Peritoneal dialysis fluid 2023-07-09 16:15:37 3.08 mg/dL F Urea nitrogen [Mass/volume] in Peritoneal fluid --24 hours post peritoneal dialysis 2023-07-09 16:15:37 32 mg/dL F Creatinine [Mass/volume] in Peritoneal dialysis fluid 2023-07-09 16:15:37 3.08 mg/dL F Urea nitrogen [Mass/volume] in Peritoneal fluid --24 hours post peritoneal dialysis 2023-07-09 16:15:37 32 mg/dL F AMPUTATE FACTOR 2023-07-08 20:26:26 0 F HEIGHT IN INCHES 2023-07-08 20:26:26 64 Inches F BODY WEIGHT (LBS) 2023-07-08 20:26:26 111.7 lbs F BODY WEIGHT (LBS) 2023-07-08 20:26:26 111.7 lbs F HEIGHT IN INCHES 2023-07-08 20:26:26 64 Inches F AMPUTATE FACTOR 2023-07-08 20:26:26 0 F Total Volume of EFFL/DIAL 2023-07-08 20:26:26 7149 mLs F MINIMUM GOAL: KT/V PD 2023-07-08 20:26:26 1.7 F MINIMUM GOAL: KT/V PD 2023-07-08 20:26:26 1.7 F Total Volume of EFFL/DIAL 2023-07-08 20:26:26 7149 mLs F TOTAL VOLUME-24 HR URINE 2023-07-08 20:26:26 400 mL F COLLECTION TIME FOR URINE 2023-07-08 20:26:26 1440 min F TOTAL VOLUME-24 HR URINE 2023-07-08 20:26:26 400 mL F COLLECTION TIME FOR URINE 2023-07-08 20:26:26 1440 min F BUN/CREAT 2023-05-24 14:56:13 5.8 Calc F 8.2-46.0 Creatinine [Mass/volume] in Serum or Plasma 2023-05-24 14:55:33 8.8 mg/dL F 0.5-1.1 Urea nitrogen [Mass/volume] in Serum or Plasma 2023-05-24 14:55:33 51 mg/dL F 9.0-23.0 BUN/CREAT 2023-05-02 19:11:19 6.9 Calc F 8.2-46.0 Creatinine [Mass/volume] in Serum or Plasma 2023-05-02 19:10:49 7.82 mg/dL F 0.5-1.1 Urea nitrogen [Mass/volume] in Serum or Plasma 2023-05-02 19:10:49 54 mg/dL F 9.0-23.0 UREA CLR UR 2023-03-27 04:06:09 1.3 mL/min F PNA (PD) 2023-03-27 04:06:09 40.3 g/day F PCR PD FEMALE 2023-03-27 04:06:09 29.7 g/day F NPCR PD FEMALE 2023-03-27 04:06:09 0.62 G/KG/D F L/WK/1.73 RESID 2023-03-27 04:06:09 19.91 L/WK/B F L/WK/1.73 TOTAL 2023-03-27 04:06:09 40.26 L/WK/B F NPNA-PD FEMALE 2023-03-27 04:06:09 0.84 G/KG/D F Urea Gen Rate 2023-03-27 04:06:09 4.9 GM/D F KT/V TOTAL (F) 2023-03-27 04:06:09 1.52 Kt/V F L/WK RESID CC 2023-03-27 04:06:09 17.58 L/wk F KT/V RESID (F) 2023-03-27 04:06:09 0.46 Kt/V F UREA CLR UR/BSA 2023-03-27 04:06:09 1.4 mL/min F 64.0-99.0 CRE CLR UR/BSA 2023-03-27 04:06:09 3 mL/min F 75.0-115.0 CRE CLR UR 2023-03-27 04:06:09 2 mL/min F 88.0-128.0 NPCR PD FEMALE 2023-03-27 04:06:09 0.62 G/KG/D F CRE CLR UR/BSA 2023-03-27 04:06:09 3 mL/min F 75.0-115.0 UREA CLR UR/BSA 2023-03-27 04:06:09 1.4 mL/min F 64.0-99.0 PCR PD FEMALE 2023-03-27 04:06:09 29.7 g/day F Urea Gen Rate 2023-03-27 04:06:09 4.9 GM/D F CRE CLR UR 2023-03-27 04:06:09 2 mL/min F 88.0-128.0 L/WK RESID CC 2023-03-27 04:06:09 17.58 L/wk F KT/V TOTAL (F) 2023-03-27 04:06:09 1.52 Kt/V F UREA CLR UR 2023-03-27 04:06:09 1.3 mL/min F PNA (PD) 2023-03-27 04:06:09 40.3 g/day F NPNA-PD FEMALE 2023-03-27 04:06:09 0.84 G/KG/D F L/WK/1.73 RESID 2023-03-27 04:06:09 19.91 L/WK/B F L/WK/1.73 TOTAL 2023-03-27 04:06:09 40.26 L/WK/B F KT/V RESID (F) 2023-03-27 04:06:09 0.46 Kt/V F Urea nitrogen [Mass/volume] in Urine 2023-03-27 04:05:28 338 mg/dL F Creatinine [Mass/volume] in Urine 2023-03-27 04:05:28 82.25 mg/dL F Urea nitrogen [Mass/volume] in Urine 2023-03-27 04:05:28 338 mg/dL F Creatinine [Mass/volume] in Urine 2023-03-27 04:05:28 82.25 mg/dL F L/WK/1.73 PDF 2023-03-26 16:34:18 20.35 L/WK/B F KT/V PDF (F) 2023-03-26 16:34:18 1.05 Kt/V F L/WK PDF 2023-03-26 16:34:18 17.97 L/wk F L/WK PDF 2023-03-26 16:34:18 17.97 L/wk F L/WK/1.73 PDF 2023-03-26 16:34:18 20.35 L/WK/B F KT/V PDF (F) 2023-03-26 16:34:18 1.05 Kt/V F Creatinine [Mass/volume] in Peritoneal dialysis fluid 2023-03-26 16:33:17 2.86 mg/dL F Urea nitrogen [Mass/volume] in Peritoneal fluid --24 hours post peritoneal dialysis 2023-03-26 16:33:17 33 mg/dL F Urea nitrogen [Mass/volume] in Peritoneal fluid --24 hours post peritoneal dialysis 2023-03-26 16:33:17 33 mg/dL F Creatinine [Mass/volume] in Peritoneal dialysis fluid 2023-03-26 16:33:17 2.86 mg/dL F [facility] 2023-03-26 15:00:44 27.79 Liters F BSA [facility] 2023-03-26 15:00:44 1.53 sq m F BUN/CREAT 2023-03-26 15:00:44 7.1 Calc F 8.2-46.0 BSA [facility] 2023-03-26 15:00:44 1.53 sq m F BUN/CREAT 2023-03-26 15:00:44 7.1 Calc F 8.2-46.0 [facility] 2023-03-26 15:00:44 27.79 Liters F Creatinine [Mass/volume] in Serum or Plasma 2023-03-26 15:00:13 7.76 mg/dL F 0.5-1.1 Urea nitrogen [Mass/volume] in Serum or Plasma 2023-03-26 15:00:13 55 mg/dL F 9.0-23.0 Urea nitrogen [Mass/volume] in Serum or Plasma 2023-03-26 15:00:13 55 mg/dL F 9.0-23.0 Creatinine [Mass/volume] in Serum or Plasma 2023-03-26 15:00:13 7.76 mg/dL F 0.5-1.1 AMPUTATE FACTOR 2023-03-25 20:23:39 0 F Total Volume of EFFL/DIAL 2023-03-25 20:23:39 6966 mLs F HEIGHT IN INCHES 2023-03-25 20:23:39 64 Inches F BODY WEIGHT (LBS) 2023-03-25 20:23:39 111.6 lbs F MINIMUM GOAL: KT/V PD 2023-03-25 20:23:39 1.7 F HEIGHT IN INCHES 2023-03-25 20:23:39 64 Inches F AMPUTATE FACTOR 2023-03-25 20:23:39 0 F Total Volume of EFFL/DIAL 2023-03-25 20:23:39 6966 mLs F BODY WEIGHT (LBS) 2023-03-25 20:23:39 111.6 lbs F MINIMUM GOAL: KT/V PD 2023-03-25 20:23:39 1.7 F TOTAL VOLUME-24 HR URINE 2023-03-25 20:23:39 300 mL F COLLECTION TIME FOR URINE 2023-03-25 20:23:39 1440 min F COLLECTION TIME FOR URINE 2023-03-25 20:23:39 1440 min F TOTAL VOLUME-24 HR URINE 2023-03-25 20:23:39 300 mL F BUN/CREAT 2023-02-23 17:11:47 8.3 Calc F 8.2-46.0 Creatinine [Mass/volume] in Serum or Plasma 2023-02-23 17:11:17 7.74 mg/dL F 0.5-1.1 Urea nitrogen [Mass/volume] in Serum or Plasma 2023-02-23 17:11:17 64 mg/dL F 9.0-23.0 BUN/CREAT 2023-01-25 23:12:41 8.2 Calc F 8.2-46.0 Urea nitrogen [Mass/volume] in Serum or Plasma 2023-01-25 23:12:16 59 mg/dL F 9.0-23.0 Creatinine [Mass/volume] in Serum or Plasma 2023-01-25 23:12:14 7.16 mg/dL F 0.5-1.1 2 HR D/DO 2023-01-01 15:33:17 0.59 F 4 HR D/DO 2023-01-01 15:33:17 0.4 F UREA PERITONEAL 0 HOUR 2023-01-01 15:32:15 2 mg/dL F Glucose [Mass/volume] in Peritoneal dialysis fluid --baseline 2023-01-01 15:32:13 2176 mg/dL F Creatinine [Mass/volume] in Peritoneal dialysis fluid --baseline 2023-01-01 15:32:13 0.39 mg/dL F Urea 4 hr D/P 2023-01-01 15:31:49 0.87 F 4 HR D/P 2023-01-01 15:31:49 0.51 F Urea 2 Hr D/P 2023-01-01 15:31:49 0.65 F 2 HR D/P 2023-01-01 15:31:49 0.35 F BUN PET 2/4 HR SERUM 2023-01-01 15:31:17 60 mg/dL F CREATININE PET 2/4 HR SERUM 2023-01-01 15:31:17 6.65 mg/dL F 0.5-1.1 GLUCOSE PET 2/4 HR SERUM 2023-01-01 15:31:17 85 mg/dL F 70.0-99.0 CREAT-RAS 4HR 2023-01-01 15:17:41 3.4 mg/dL F Creatinine [Mass/volume] in Peritoneal dialysis fluid --4 hour dwell specimen 2023-01-01 15:17:35 3.57 mg/dL F UREA PERITONEAL 4 HOUR 2023-01-01 15:17:35 52 mg/dL F Glucose [Mass/volume] in Peritoneal dialysis fluid --4 hour dwell specimen 2023-01-01 15:17:35 881 mg/dL F CREAT-RAS 0HR 2023-01-01 14:54:49 see comments F Unable to Calculate. Urea 0 Hr D/P 2023-01-01 14:54:49 see comments F Unable to Calculate. 0 HR D/P 2023-01-01 14:54:49 see comments F Unable to Calculate. CREAT-RAS 2HR 2023-01-01 14:54:49 2.3 mg/dL F UREA PERITONEAL 2 HOUR 2023-01-01 14:54:14 39 mg/dL F Glucose [Mass/volume] in Peritoneal dialysis fluid --2 hour dwell specimen 2023-01-01 14:54:14 1278 mg/dL F Creatinine [Mass/volume] in Peritoneal dialysis fluid --2 hour dwell specimen 2023-01-01 14:54:14 2.6 mg/dL F L/WK PDF CC 2023-01-01 14:49:50 18.47 L/wk F PCR PD FEMALE 2023-01-01 14:49:50 37.5 g/day F PNA (PD) 2023-01-01 14:49:50 49.2 g/day F L/WK/1.73 PDF 2023-01-01 14:49:50 20.65 L/WK/B F NPCR PD FEMALE 2023-01-01 14:49:50 0.77 G/KG/D F KT/V TOTAL (F) 2023-01-01 14:49:50 1.78 Kt/V F KT/V PDF (F) 2023-01-01 14:49:50 1.15 Kt/V F NPNA-PD FEMALE 2023-01-01 14:49:50 1.01 G/KG/D F Urea Gen Rate 2023-01-01 14:49:50 6.7 GM/D F L/WK/1.73 TOTAL 2023-01-01 14:49:50 47.76 L/WK/B F Creatinine [Mass/volume] in Peritoneal dialysis fluid 2023-01-01 14:49:12 2.49 mg/dL F Urea nitrogen [Mass/volume] in Peritoneal fluid --24 hours post peritoneal dialysis 2023-01-01 14:49:12 40 mg/dL F L/WK RESID CC 2023-01-01 14:27:16 24.24 L/wk F UREA CLR UR 2023-01-01 14:27:16 1.8 mL/min F L/WK/1.73 RESID 2023-01-01 14:27:16 27.11 L/WK/B F KT/V RESID (F) 2023-01-01 14:27:16 0.63 Kt/V F UREA CLR UR/BSA 2023-01-01 14:27:16 2 mL/min F 64.0-99.0 CRE CLR UR/BSA 2023-01-01 14:27:16 3 mL/min F 75.0-115.0 CRE CLR UR 2023-01-01 14:27:16 3 mL/min F 88.0-128.0 Creatinine [Mass/volume] in Urine 2023-01-01 14:27:09 75.67 mg/dL F Urea nitrogen [Mass/volume] in Urine 2023-01-01 14:27:09 398 mg/dL F TBW BOND FEML 2023-01-01 13:54:19 28.16 Liters F BSA ELIZABETH 2023-01-01 13:54:19 1.55 sq m F BUN/CREAT 2023-01-01 13:54:19 9.2 Calc F 8.2-46.0 Creatinine [Mass/volume] in Serum or Plasma 2023-01-01 13:54:14 6.88 mg/dL F 0.5-1.1 Urea nitrogen [Mass/volume] in Serum or Plasma 2023-01-01 13:54:14 63 mg/dL F 9.0-23.0 MINIMUM GOAL: KT/V PD 2022-12-31 18:40:34 1.7 F TOTAL VOLUME-24 HR URINE 2022-12-31 18:40:34 400 mL F DRAINAGE VOLUME AT 4 HOURS 2022-12-31 18:40:34 2600 mLs F HEIGHT IN INCHES 2022-12-31 18:40:34 64 Inches F AMPUTATE FACTOR 2022-12-31 18:40:34 0 F COLLECTION TIME FOR URINE 2022-12-31 18:40:34 1440 min F BODY WEIGHT (LBS) 2022-12-31 18:40:34 114.9 lbs F Total Volume of EFFL/DIAL 2022-12-31 18:40:34 7289 mLs F BODY WEIGHT (LBS) 2022-12-31 18:40:34 114.9 lbs F HEIGHT IN INCHES 2022-12-31 18:40:34 64 Inches F BUN/CREAT 2022-12-02 00:55:23 7.2 Calc F 8.2-46.0 Creatinine [Mass/volume] in Serum or Plasma 2022-12-02 00:54:48 6.37 mg/dL F 0.5-1.1 Urea nitrogen [Mass/volume] in Serum or Plasma 2022-12-02 00:54:48 46 mg/dL F 9.0-23.0 BUN/CREAT 2022-11-07 03:40:05 7.8 Calc F 8.2-46.0 BUN/CREAT 2022-11-07 03:40:05 7.8 Calc F 8.2-46.0 BUN/CREAT 2022-11-07 03:40:05 7.8 Calc F 8.2-46.0 BUN/CREAT 2022-11-07 03:40:05 7.8 Calc F 8.2-46.0 Creatinine [Mass/volume] in Serum or Plasma 2022-11-07 03:39:53 6.91 mg/dL F 0.5-1.1 Urea nitrogen [Mass/volume] in Serum or Plasma 2022-11-07 03:39:53 54 mg/dL F 9.0-23.0 Creatinine [Mass/volume] in Serum or Plasma 2022-11-07 03:39:53 6.91 mg/dL F 0.5-1.1 Urea nitrogen [Mass/volume] in Serum or Plasma 2022-11-07 03:39:53 54 mg/dL F 9.0-23.0 Urea nitrogen [Mass/volume] in Serum or Plasma 2022-11-07 03:39:53 54 mg/dL F 9.0-23.0 Creatinine [Mass/volume] in Serum or Plasma 2022-11-07 03:39:53 6.91 mg/dL F 0.5-1.1 Creatinine [Mass/volume] in Serum or Plasma 2022-11-07 03:39:53 6.91 mg/dL F 0.5-1.1 Urea nitrogen [Mass/volume] in Serum or Plasma 2022-11-07 03:39:53 54 mg/dL F 9.0-23.0 Anemia Description Draw Date Result/Unit Status Ref Range Result Comments IRON SATURATION 2024 08:27:30 30 % F 16.0-46.0 TIBC 2024 08:27:30 249 ug/dL F 250.0-425.0 IRON SATURATION 2024 08:27:30 30 % F 16.0-46.0 TIBC 2024 08:27:30 249 ug/dL F 250.0-425.0 IRON SATURATION 2024 08:27:30 30 % F 16.0-46.0 TIBC 2024 08:27:30 249 ug/dL F 250.0-425.0 IRON SATURATION 2024 08:27:30 30 % F 16.0-46.0 TIBC 2024 08:27:30 249 ug/dL F 250.0-425.0 Iron [Mass/volume] in Serum or Plasma 2024 06:43:41 75 ug/dL F 50.0-170.0 Iron binding capacity.unsaturated [Mass/volume] in Serum or Plasma 2024 06:43:41 174 ug/dL F 80.0-375.0 Iron [Mass/volume] in Serum or Plasma 2024 06:43:41 75 ug/dL F 50.0-170.0 Iron binding capacity.unsaturated [Mass/volume] in Serum or Plasma 2024 06:43:41 174 ug/dL F 80.0-375.0 Iron [Mass/volume] in Serum or Plasma 2024 06:43:41 75 ug/dL F 50.0-170.0 Iron binding capacity.unsaturated [Mass/volume] in Serum or Plasma 2024 06:43:41 174 ug/dL F 80.0-375.0 Iron [Mass/volume] in Serum or Plasma 2024 06:43:41 75 ug/dL F 50.0-170.0 Iron binding capacity.unsaturated [Mass/volume] in Serum or Plasma 2024 06:43:41 174 ug/dL F 80.0-375.0 Ferritin [Mass/volume] in Serum or Plasma 2024-11-07 19:58:05 83 ng/mL F 10.0-291.0 Ferritin [Mass/volume] in Serum or Plasma 2024-11-07 19:58:05 83 ng/mL F 10.0-291.0 Ferritin [Mass/volume] in Serum or Plasma 2024-11-07 19:58:05 83 ng/mL F 10.0-291.0 Ferritin [Mass/volume] in Serum or Plasma 2024-11-07 19:58:05 83 ng/mL F 10.0-291.0 HCT CALC HGBX3 2024-11-07 06:56:06 33.3 % F 37.0-47.0 HCT CALC HGBX3 2024-11-07 06:56:06 33.3 % F 37.0-47.0 HCT CALC HGBX3 2024-11-07 06:56:06 33.3 % F 37.0-47.0 HCT CALC HGBX3 2024-11-07 06:56:06 33.3 % F 37.0-47.0 Hematocrit [Volume Fraction] of Blood by Automated count 2024-11-07 06:55:12 36.1 % F 37.0-47.0 Hemoglobin [Mass/volume] in Blood 2024-11-07 06:55:12 11.1 g/dL F 12.0-16.0 Platelets [#/volume] in Blood by Automated count 2024-11-07 06:55:12 134 x 10^3 cells/uL F 140.0-450.0 MCV [Entitic volume] by Automated count 2024-11-07 06:55:12 89.4 fL F 80.0-100.0 MCH [Entitic mass] by Automated count 2024-11-07 06:55:12 27.6 pg F 25.9-34.2 Reticulocytes/100 erythrocytes in Blood by Automated count 2024-11-07 06:55:12 2.04 % F 0.7-2.5 Erythrocyte distribution width [Ratio] by Automated count 2024-11-07 06:55:12 16.1 % F 11.0-15.0 Erythrocytes [#/volume] in Blood by Automated count 2024-11-07 06:55:12 4.04 x 10^6 cells/uL F 3.85-5.2 MCHC [Mass/volume] by Automated count 2024-11-07 06:55:12 30.8 g/dL F 29.6-35.3 Reticulocytes/100 erythrocytes in Blood by Automated count 2024-11-07 06:55:12 2.04 % F 0.7-2.5 Erythrocytes [#/volume] in Blood by Automated count 2024-11-07 06:55:12 4.04 x 10^6 cells/uL F 3.85-5.2 Erythrocyte distribution width [Ratio] by Automated count 2024-11-07 06:55:12 16.1 % F 11.0-15.0 Hemoglobin [Mass/volume] in Blood 2024-11-07 06:55:12 11.1 g/dL F 12.0-16.0 MCH [Entitic mass] by Automated count 2024-11-07 06:55:12 27.6 pg F 25.9-34.2 MCHC [Mass/volume] by Automated count 2024-11-07 06:55:12 30.8 g/dL F 29.6-35.3 Hematocrit [Volume Fraction] of Blood by Automated count 2024-11-07 06:55:12 36.1 % F 37.0-47.0 MCV [Entitic volume] by Automated count 2024-11-07 06:55:12 89.4 fL F 80.0-100.0 Platelets [#/volume] in Blood by Automated count 2024-11-07 06:55:12 134 x 10^3 cells/uL F 140.0-450.0 Erythrocyte distribution width [Ratio] by Automated count 2024-11-07 06:55:12 16.1 % F 11.0-15.0 Hematocrit [Volume Fraction] of Blood by Automated count 2024-11-07 06:55:12 36.1 % F 37.0-47.0 Erythrocytes [#/volume] in Blood by Automated count 2024-11-07 06:55:12 4.04 x 10^6 cells/uL F 3.85-5.2 MCV [Entitic volume] by Automated count 2024-11-07 06:55:12 89.4 fL F 80.0-100.0 Hemoglobin [Mass/volume] in Blood 2024-11-07 06:55:12 11.1 g/dL F 12.0-16.0 MCHC [Mass/volume] by Automated count 2024-11-07 06:55:12 30.8 g/dL F 29.6-35.3 Platelets [#/volume] in Blood by Automated count 2024-11-07 06:55:12 134 x 10^3 cells/uL F 140.0-450.0 MCH [Entitic mass] by Automated count 2024-11-07 06:55:12 27.6 pg F 25.9-34.2 Reticulocytes/100 erythrocytes in Blood by Automated count 2024-11-07 06:55:12 2.04 % F 0.7-2.5 Reticulocytes/100 erythrocytes in Blood by Automated count 2024-11-07 06:55:12 2.04 % F 0.7-2.5 Erythrocytes [#/volume] in Blood by Automated count 2024-11-07 06:55:12 4.04 x 10^6 cells/uL F 3.85-5.2 Erythrocyte distribution width [Ratio] by Automated count 2024-11-07 06:55:12 16.1 % F 11.0-15.0 Hemoglobin [Mass/volume] in Blood 2024-11-07 06:55:12 11.1 g/dL F 12.0-16.0 MCH [Entitic mass] by Automated count 2024-11-07 06:55:12 27.6 pg F 25.9-34.2 MCHC [Mass/volume] by Automated count 2024-11-07 06:55:12 30.8 g/dL F 29.6-35.3 Hematocrit [Volume Fraction] of Blood by Automated count 2024-11-07 06:55:12 36.1 % F 37.0-47.0 MCV [Entitic volume] by Automated count 2024-11-07 06:55:12 89.4 fL F 80.0-100.0 Platelets [#/volume] in Blood by Automated count 2024-11-07 06:55:12 134 x 10^3 cells/uL F 140.0-450.0 IRON SATURATION 2024-09-23 08:50:30 23 % F 16.0-46.0 TIBC 2024-09-23 08:50:30 265 ug/dL F 250.0-425.0 IRON SATURATION 2024-09-23 08:50:30 23 % F 16.0-46.0 TIBC 2024-09-23 08:50:30 265 ug/dL F 250.0-425.0 Ferritin [Mass/volume] in Serum or Plasma 2024-09-23 08:24:43 89 ng/mL F 10.0-291.0 Ferritin [Mass/volume] in Serum or Plasma 2024-09-23 08:24:43 89 ng/mL F 10.0-291.0 Iron [Mass/volume] in Serum or Plasma 2024-09-23 08:02:25 60 ug/dL F 50.0-170.0 Iron binding capacity.unsaturated [Mass/volume] in Serum or Plasma 2024-09-23 08:02:25 205 ug/dL F 80.0-375.0 Iron [Mass/volume] in Serum or Plasma 2024-09-23 08:02:25 60 ug/dL F 50.0-170.0 Iron binding capacity.unsaturated [Mass/volume] in Serum or Plasma 2024-09-23 08:02:25 205 ug/dL F 80.0-375.0 HCT CALC HGBX3 2024-09-23 02:41:35 36.9 % F 37.0-47.0 HCT CALC HGBX3 2024-09-23 02:41:35 36.9 % F 37.0-47.0 Reticulocytes/100 erythrocytes in Blood by Automated count 2024-09-23 02:40:20 2.17 % F 0.7-2.5 Erythrocytes [#/volume] in Blood by Automated count 2024-09-23 02:40:20 4.53 x 10'6 cells/uL F 3.85-5.2 Erythrocyte distribution width [Ratio] by Automated count 2024-09-23 02:40:20 17.1 % F 11.0-15.0 Hemoglobin [Mass/volume] in Blood 2024-09-23 02:40:20 12.3 g/dL F 12.0-16.0 MCH [Entitic mass] by Automated count 2024-09-23 02:40:20 27.2 pg F 25.9-34.2 MCHC [Mass/volume] by Automated count 2024-09-23 02:40:20 31.1 g/dL F 29.6-35.3 Hematocrit [Volume Fraction] of Blood by Automated count 2024-09-23 02:40:20 39.6 % F 37.0-47.0 MCV [Entitic volume] by Automated count 2024-09-23 02:40:20 87.3 fL F 80.0-100.0 Platelets [#/volume] in Blood by Automated count 2024-09-23 02:40:20 143 x 10^3 cells/uL F 140.0-450.0 Reticulocytes/100 erythrocytes in Blood by Automated count 2024-09-23 02:40:20 2.17 % F 0.7-2.5 Erythrocytes [#/volume] in Blood by Automated count 2024-09-23 02:40:20 4.53 x 10'6 cells/uL F 3.85-5.2 Erythrocyte distribution width [Ratio] by Automated count 2024-09-23 02:40:20 17.1 % F 11.0-15.0 Hemoglobin [Mass/volume] in Blood 2024-09-23 02:40:20 12.3 g/dL F 12.0-16.0 MCHC [Mass/volume] by Automated count 2024-09-23 02:40:20 31.1 g/dL F 29.6-35.3 MCH [Entitic mass] by Automated count 2024-09-23 02:40:20 27.2 pg F 25.9-34.2 Hematocrit [Volume Fraction] of Blood by Automated count 2024-09-23 02:40:20 39.6 % F 37.0-47.0 MCV [Entitic volume] by Automated count 2024-09-23 02:40:20 87.3 fL F 80.0-100.0 Platelets [#/volume] in Blood by Automated count 2024-09-23 02:40:20 143 x 10^3 cells/uL F 140.0-450.0 Ferritin [Mass/volume] in Serum or Plasma 2024-08-27 08:15:42 90 ng/mL F 10.0-291.0 IRON SATURATION 2024-08-27 07:56:48 22 % F 16.0-46.0 HCT CALC HGBX3 2024-08-27 07:56:48 38.1 % F 37.0-47.0 TIBC 2024-08-27 07:56:48 275 ug/dL F 250.0-425.0 Reticulocytes/100 erythrocytes in Blood by Automated count 2024-08-27 07:45:14 2.62 % F 0.7-2.5 Erythrocytes [#/volume] in Blood by Automated count 2024-08-27 07:45:14 4.62 x 10'6 cells/uL F 3.85-5.2 Hemoglobin [Mass/volume] in Blood 2024-08-27 07:45:14 12.7 g/dL F 12.0-16.0 Erythrocyte distribution width [Ratio] by Automated count 2024-08-27 07:45:14 16.9 % F 11.0-15.0 MCH [Entitic mass] by Automated count 2024-08-27 07:45:14 27.5 pg F 25.9-34.2 Hematocrit [Volume Fraction] of Blood by Automated count 2024-08-27 07:45:14 41.3 % F 37.0-47.0 MCHC [Mass/volume] by Automated count 2024-08-27 07:45:14 30.8 g/dL F 29.6-35.3 MCV [Entitic volume] by Automated count 2024-08-27 07:45:14 89.3 fL F 80.0-100.0 Platelets [#/volume] in Blood by Automated count 2024-08-27 07:45:14 139 x 10^3 cells/uL F 140.0-450.0 Iron [Mass/volume] in Serum or Plasma 2024-08-27 07:41:17 60 ug/dL F 50.0-170.0 Iron binding capacity.unsaturated [Mass/volume] in Serum or Plasma 2024-08-27 07:41:17 215 ug/dL F 80.0-375.0 IRON SATURATION 2024-07-29 07:37:55 21 % F 16.0-46.0 TIBC 2024-07-29 07:37:55 303 ug/dL F 250.0-425.0 Iron [Mass/volume] in Serum or Plasma 2024-07-29 07:18:57 65 ug/dL F 50.0-170.0 Iron binding capacity.unsaturated [Mass/volume] in Serum or Plasma 2024-07-29 07:18:52 238 ug/dL F 80.0-375.0 Ferritin [Mass/volume] in Serum or Plasma 2024-07-29 03:32:04 73 ng/mL F 10.0-291.0 HCT CALC HGBX3 2024-07-28 18:30:12 37.2 % F 37.0-47.0 Reticulocytes/100 erythrocytes in Blood by Automated count 2024-07-28 18:30:09 2.13 % F 0.7-2.5 Erythrocytes [#/volume] in Blood by Automated count 2024-07-28 18:30:09 4.67 x 10'6 cells/uL F 3.85-5.2 Hemoglobin [Mass/volume] in Blood 2024-07-28 18:30:09 12.4 g/dL F 12.0-16.0 Erythrocyte distribution width [Ratio] by Automated count 2024-07-28 18:30:09 16.3 % F 11.0-15.0 MCH [Entitic mass] by Automated count 2024-07-28 18:30:09 26.5 pg F 25.9-34.2 Hematocrit [Volume Fraction] of Blood by Automated count 2024-07-28 18:30:09 40.7 % F 37.0-47.0 MCHC [Mass/volume] by Automated count 2024-07-28 18:30:09 30.5 g/dL F 29.6-35.3 MCV [Entitic volume] by Automated count 2024-07-28 18:30:09 87 fL F 80.0-100.0 Platelets [#/volume] in Blood by Automated count 2024-07-28 18:30:09 157 x 10^3 cells/uL F 140.0-450.0 IRON SATURATION 2024-07-01 06:08:41 12 % F 16.0-46.0 TIBC 2024-07-01 06:08:41 333 ug/dL F 250.0-425.0 IRON SATURATION 2024-07-01 06:08:41 12 % F 16.0-46.0 TIBC 2024-07-01 06:08:41 333 ug/dL F 250.0-425.0 TIBC 2024-07-01 06:08:41 333 ug/dL F 250.0-425.0 IRON SATURATION 2024-07-01 06:08:41 12 % F 16.0-46.0 Iron [Mass/volume] in Serum or Plasma 2024-07-01 06:02:24 39 ug/dL F 50.0-170.0 Iron binding capacity.unsaturated [Mass/volume] in Serum or Plasma 2024-07-01 06:02:24 294 ug/dL F 80.0-375.0 Iron [Mass/volume] in Serum or Plasma 2024-07-01 06:02:24 39 ug/dL F 50.0-170.0 Iron binding capacity.unsaturated [Mass/volume] in Serum or Plasma 2024-07-01 06:02:24 294 ug/dL F 80.0-375.0 Iron [Mass/volume] in Serum or Plasma 2024-07-01 06:02:24 39 ug/dL F 50.0-170.0 Iron binding capacity.unsaturated [Mass/volume] in Serum or Plasma 2024-07-01 06:02:24 294 ug/dL F 80.0-375.0 Ferritin [Mass/volume] in Serum or Plasma 2024-07-01 04:04:43 70 ng/mL F 10.0-291.0 Ferritin [Mass/volume] in Serum or Plasma 2024-07-01 04:04:43 70 ng/mL F 10.0-291.0 Ferritin [Mass/volume] in Serum or Plasma 2024-07-01 04:04:43 70 ng/mL F 10.0-291.0 HCT CALC HGBX3 2024-06-30 19:51:02 35.7 % F 37.0-47.0 HCT CALC HGBX3 2024-06-30 19:51:02 35.7 % F 37.0-47.0 HCT CALC HGBX3 2024-06-30 19:51:02 35.7 % F 37.0-47.0 Reticulocytes/100 erythrocytes in Blood by Automated count 2024-06-30 19:50:22 1.84 % F 0.7-2.5 Reticulocytes/100 erythrocytes in Blood by Automated count 2024-06-30 19:50:22 1.84 % F 0.7-2.5 Reticulocytes/100 erythrocytes in Blood by Automated count 2024-06-30 19:50:22 1.84 % F 0.7-2.5 Erythrocytes [#/volume] in Blood by Automated count 2024-06-30 19:50:20 4.51 x 10'6 cells/uL F 3.85-5.2 Hemoglobin [Mass/volume] in Blood 2024-06-30 19:50:20 11.9 g/dL F 12.0-16.0 Erythrocyte distribution width [Ratio] by Automated count 2024-06-30 19:50:20 15 % F 11.0-15.0 MCH [Entitic mass] by Automated count 2024-06-30 19:50:20 26.4 pg F 25.9-34.2 MCHC [Mass/volume] by Automated count 2024-06-30 19:50:20 29.6 g/dL F 29.6-35.3 Hematocrit [Volume Fraction] of Blood by Automated count 2024-06-30 19:50:20 40.2 % F 37.0-47.0 MCV [Entitic volume] by Automated count 2024-06-30 19:50:20 89.2 fL F 80.0-100.0 Platelets [#/volume] in Blood by Automated count 2024-06-30 19:50:20 177 x 10^3 cells/uL F 140.0-450.0 Erythrocytes [#/volume] in Blood by Automated count 2024-06-30 19:50:20 4.51 x 10'6 cells/uL F 3.85-5.2 Erythrocyte distribution width [Ratio] by Automated count 2024-06-30 19:50:20 15 % F 11.0-15.0 Hemoglobin [Mass/volume] in Blood 2024-06-30 19:50:20 11.9 g/dL F 12.0-16.0 MCH [Entitic mass] by Automated count 2024-06-30 19:50:20 26.4 pg F 25.9-34.2 MCHC [Mass/volume] by Automated count 2024-06-30 19:50:20 29.6 g/dL F 29.6-35.3 Hematocrit [Volume Fraction] of Blood by Automated count 2024-06-30 19:50:20 40.2 % F 37.0-47.0 MCV [Entitic volume] by Automated count 2024-06-30 19:50:20 89.2 fL F 80.0-100.0 Platelets [#/volume] in Blood by Automated count 2024-06-30 19:50:20 177 x 10^3 cells/uL F 140.0-450.0 Erythrocyte distribution width [Ratio] by Automated count 2024-06-30 19:50:20 15 % F 11.0-15.0 Hemoglobin [Mass/volume] in Blood 2024-06-30 19:50:20 11.9 g/dL F 12.0-16.0 MCHC [Mass/volume] by Automated count 2024-06-30 19:50:20 29.6 g/dL F 29.6-35.3 Hematocrit [Volume Fraction] of Blood by Automated count 2024-06-30 19:50:20 40.2 % F 37.0-47.0 MCV [Entitic volume] by Automated count 2024-06-30 19:50:20 89.2 fL F 80.0-100.0 Erythrocytes [#/volume] in Blood by Automated count 2024-06-30 19:50:20 4.51 x 10'6 cells/uL F 3.85-5.2 Platelets [#/volume] in Blood by Automated count 2024-06-30 19:50:20 177 x 10^3 cells/uL F 140.0-450.0 MCH [Entitic mass] by Automated count 2024-06-30 19:50:20 26.4 pg F 25.9-34.2 Ferritin [Mass/volume] in Serum or Plasma 2024-06-05 03:43:06 98 ng/mL F 10.0-291.0 Ferritin [Mass/volume] in Serum or Plasma 2024-06-05 03:43:06 98 ng/mL F 10.0-291.0 IRON SATURATION 2024-06-05 03:27:02 F Recollect - Hemolyzed specimen TIBC 2024-06-05 03:27:02 F Recollect - Hemolyzed specimen TIBC 2024-06-05 03:27:02 F Recollect - Hemolyzed specimen IRON SATURATION 2024-06-05 03:27:02 F Recollect - Hemolyzed specimen HCT CALC HGBX3 2024-06-05 02:59:36 35.4 % F 37.0-47.0 HCT CALC HGBX3 2024-06-05 02:59:36 35.4 % F 37.0-47.0 Hemoglobin [Mass/volume] in Blood 2024-06-05 02:59:20 11.8 g/dL F 12.0-16.0 MCV [Entitic volume] by Automated count 2024-06-05 02:59:20 94.7 fL F 80.0-100.0 Hemoglobin [Mass/volume] in Blood 2024-06-05 02:59:20 11.8 g/dL F 12.0-16.0 MCV [Entitic volume] by Automated count 2024-06-05 02:59:20 94.7 fL F 80.0-100.0 Reticulocytes/100 erythrocytes in Blood by Automated count 2024-06-05 02:59:18 1.38 % F 0.7-2.5 Erythrocytes [#/volume] in Blood by Automated count 2024-06-05 02:59:18 4.19 x 10'6 cells/uL F 3.85-5.2 Erythrocyte distribution width [Ratio] by Automated count 2024-06-05 02:59:18 15.3 % F 11.0-15.0 MCH [Entitic mass] by Automated count 2024-06-05 02:59:18 28.3 pg F 25.9-34.2 MCHC [Mass/volume] by Automated count 2024-06-05 02:59:18 29.8 g/dL F 29.6-35.3 Hematocrit [Volume Fraction] of Blood by Automated count 2024-06-05 02:59:18 39.7 % F 37.0-47.0 Platelets [#/volume] in Blood by Automated count 2024-06-05 02:59:18 205 x 10^3 cells/uL F 140.0-450.0 Erythrocytes [#/volume] in Blood by Automated count 2024-06-05 02:59:18 4.19 x 10'6 cells/uL F 3.85-5.2 MCH [Entitic mass] by Automated count 2024-06-05 02:59:18 28.3 pg F 25.9-34.2 Reticulocytes/100 erythrocytes in Blood by Automated count 2024-06-05 02:59:18 1.38 % F 0.7-2.5 Erythrocyte distribution width [Ratio] by Automated count 2024-06-05 02:59:18 15.3 % F 11.0-15.0 Hematocrit [Volume Fraction] of Blood by Automated count 2024-06-05 02:59:18 39.7 % F 37.0-47.0 MCHC [Mass/volume] by Automated count 2024-06-05 02:59:18 29.8 g/dL F 29.6-35.3 Platelets [#/volume] in Blood by Automated count 2024-06-05 02:59:18 205 x 10^3 cells/uL F 140.0-450.0 Iron binding capacity.unsaturated [Mass/volume] in Serum or Plasma 2024-06-05 00:48:05 F Recollect - Hemolyzed specimen Iron [Mass/volume] in Serum or Plasma 2024-06-05 00:48:05 F Recollect - Hemolyzed specimen Iron [Mass/volume] in Serum or Plasma 2024-06-05 00:48:05 F Recollect - Hemolyzed specimen Iron binding capacity.unsaturated [Mass/volume] in Serum or Plasma 2024-06-05 00:48:05 F Recollect - Hemolyzed specimen HCT CALC HGBX3 2024-05-02 07:10:49 41.4 % F 37.0-47.0 HCT CALC HGBX3 2024-05-02 07:10:49 41.4 % F 37.0-47.0 HCT CALC HGBX3 2024-05-02 07:10:49 41.4 % F 37.0-47.0 Ferritin [Mass/volume] in Serum or Plasma 2024-05-02 07:05:14 120 ng/mL F 10.0-291.0 Ferritin [Mass/volume] in Serum or Plasma 2024-05-02 07:05:14 120 ng/mL F 10.0-291.0 Ferritin [Mass/volume] in Serum or Plasma 2024-05-02 07:05:14 120 ng/mL F 10.0-291.0 Reticulocytes/100 erythrocytes in Blood by Automated count 2024-05-01 07:12:34 1.73 % F 0.7-2.5 Erythrocytes [#/volume] in Blood by Automated count 2024-05-01 07:12:34 4.72 x 10'6 cells/uL F 3.85-5.2 Hemoglobin [Mass/volume] in Blood 2024-05-01 07:12:34 13.8 g/dL F 12.0-16.0 Erythrocyte distribution width [Ratio] by Automated count 2024-05-01 07:12:34 16.5 % F 11.0-15.0 MCHC [Mass/volume] by Automated count 2024-05-01 07:12:34 30.6 g/dL F 29.6-35.3 Hematocrit [Volume Fraction] of Blood by Automated count 2024-05-01 07:12:34 45 % F 37.0-47.0 MCH [Entitic mass] by Automated count 2024-05-01 07:12:34 29.2 pg F 25.9-34.2 Platelets [#/volume] in Blood by Automated count 2024-05-01 07:12:34 98 x 10^3 cells/uL F 140.0-450.0 MCV [Entitic volume] by Automated count 2024-05-01 07:12:34 95.3 fL F 80.0-100.0 Reticulocytes/100 erythrocytes in Blood by Automated count 2024-05-01 07:12:34 1.73 % F 0.7-2.5 Erythrocytes [#/volume] in Blood by Automated count 2024-05-01 07:12:34 4.72 x 10'6 cells/uL F 3.85-5.2 Hemoglobin [Mass/volume] in Blood 2024-05-01 07:12:34 13.8 g/dL F 12.0-16.0 Erythrocyte distribution width [Ratio] by Automated count 2024-05-01 07:12:34 16.5 % F 11.0-15.0 MCHC [Mass/volume] by Automated count 2024-05-01 07:12:34 30.6 g/dL F 29.6-35.3 MCH [Entitic mass] by Automated count 2024-05-01 07:12:34 29.2 pg F 25.9-34.2 Hematocrit [Volume Fraction] of Blood by Automated count 2024-05-01 07:12:34 45 % F 37.0-47.0 MCV [Entitic volume] by Automated count 2024-05-01 07:12:34 95.3 fL F 80.0-100.0 Platelets [#/volume] in Blood by Automated count 2024-05-01 07:12:34 98 x 10^3 cells/uL F 140.0-450.0 Erythrocyte distribution width [Ratio] by Automated count 2024-05-01 07:12:34 16.5 % F 11.0-15.0 Hemoglobin [Mass/volume] in Blood 2024-05-01 07:12:34 13.8 g/dL F 12.0-16.0 Platelets [#/volume] in Blood by Automated count 2024-05-01 07:12:34 98 x 10^3 cells/uL F 140.0-450.0 MCV [Entitic volume] by Automated count 2024-05-01 07:12:34 95.3 fL F 80.0-100.0 Hematocrit [Volume Fraction] of Blood by Automated count 2024-05-01 07:12:34 45 % F 37.0-47.0 Erythrocytes [#/volume] in Blood by Automated count 2024-05-01 07:12:34 4.72 x 10'6 cells/uL F 3.85-5.2 MCH [Entitic mass] by Automated count 2024-05-01 07:12:34 29.2 pg F 25.9-34.2 MCHC [Mass/volume] by Automated count 2024-05-01 07:12:34 30.6 g/dL F 29.6-35.3 Reticulocytes/100 erythrocytes in Blood by Automated count 2024-05-01 07:12:34 1.73 % F 0.7-2.5 IRON SATURATION 2024-04-30 23:33:18 F Recollect - Hemolyzed specimen TIBC 2024-04-30 23:33:18 F Recollect - Hemolyzed specimen TIBC 2024-04-30 23:33:18 F Recollect - Hemolyzed specimen IRON SATURATION 2024-04-30 23:33:18 F Recollect - Hemolyzed specimen IRON SATURATION 2024-04-30 23:33:18 F Recollect - Hemolyzed specimen TIBC 2024-04-30 23:33:18 F Recollect - Hemolyzed specimen Iron binding capacity.unsaturated [Mass/volume] in Serum or Plasma 2024-04-30 23:32:18 F Recollect - Hemolyzed specimen Iron [Mass/volume] in Serum or Plasma 2024-04-30 23:32:18 F Recollect - Hemolyzed specimen Iron [Mass/volume] in Serum or Plasma 2024-04-30 23:32:18 F Recollect - Hemolyzed specimen Iron binding capacity.unsaturated [Mass/volume] in Serum or Plasma 2024-04-30 23:32:18 F Recollect - Hemolyzed specimen Iron binding capacity.unsaturated [Mass/volume] in Serum or Plasma 2024-04-30 23:32:18 F Recollect - Hemolyzed specimen Iron [Mass/volume] in Serum or Plasma 2024-04-30 23:32:18 F Recollect - Hemolyzed specimen Ferritin [Mass/volume] in Serum or Plasma 2024-03-26 06:19:29 97 ng/mL F 10.0-291.0 Ferritin [Mass/volume] in Serum or Plasma 2024-03-26 06:19:29 97 ng/mL F 10.0-291.0 HCT CALC HGBX3 2024-03-26 05:43:10 37.2 % F 37.0-47.0 HCT CALC HGBX3 2024-03-26 05:43:10 37.2 % F 37.0-47.0 Reticulocytes/100 erythrocytes in Blood by Automated count 2024-03-26 05:42:10 F RECOLLECT - OUTDATED SPECIMEN Reticulocytes/100 erythrocytes in Blood by Automated count 2024-03-26 05:42:10 F RECOLLECT - OUTDATED SPECIMEN Erythrocytes [#/volume] in Blood by Automated count 2024-03-26 05:41:25 4.21 x 10'6 cells/uL F 3.85-5.2 Erythrocyte distribution width [Ratio] by Automated count 2024-03-26 05:41:25 15.6 % F 11.0-15.0 Hemoglobin [Mass/volume] in Blood 2024-03-26 05:41:25 12.4 g/dL F 12.0-16.0 MCHC [Mass/volume] by Automated count 2024-03-26 05:41:25 29.8 g/dL F 29.6-35.3 Hematocrit [Volume Fraction] of Blood by Automated count 2024-03-26 05:41:25 41.5 % F 37.0-47.0 MCH [Entitic mass] by Automated count 2024-03-26 05:41:25 29.4 pg F 25.9-34.2 MCV [Entitic volume] by Automated count 2024-03-26 05:41:25 98.5 fL F 80.0-100.0 Platelets [#/volume] in Blood by Automated count 2024-03-26 05:41:25 121 x 10^3 cells/uL F 140.0-450.0 Erythrocytes [#/volume] in Blood by Automated count 2024-03-26 05:41:25 4.21 x 10'6 cells/uL F 3.85-5.2 Hemoglobin [Mass/volume] in Blood 2024-03-26 05:41:25 12.4 g/dL F 12.0-16.0 MCH [Entitic mass] by Automated count 2024-03-26 05:41:25 29.4 pg F 25.9-34.2 Erythrocyte distribution width [Ratio] by Automated count 2024-03-26 05:41:25 15.6 % F 11.0-15.0 Hematocrit [Volume Fraction] of Blood by Automated count 2024-03-26 05:41:25 41.5 % F 37.0-47.0 MCHC [Mass/volume] by Automated count 2024-03-26 05:41:25 29.8 g/dL F 29.6-35.3 MCV [Entitic volume] by Automated count 2024-03-26 05:41:25 98.5 fL F 80.0-100.0 Platelets [#/volume] in Blood by Automated count 2024-03-26 05:41:25 121 x 10^3 cells/uL F 140.0-450.0 IRON SATURATION 2024-03-26 02:15:46 24 % F 16.0-46.0 TIBC 2024-03-26 02:15:46 279 ug/dL F 250.0-425.0 TIBC 2024-03-26 02:15:46 279 ug/dL F 250.0-425.0 IRON SATURATION 2024-03-26 02:15:46 24 % F 16.0-46.0 Iron [Mass/volume] in Serum or Plasma 2024-03-26 02:06:27 68 ug/dL F 50.0-170.0 Iron binding capacity.unsaturated [Mass/volume] in Serum or Plasma 2024-03-26 02:06:27 211 ug/dL F 80.0-375.0 Iron [Mass/volume] in Serum or Plasma 2024-03-26 02:06:27 68 ug/dL F 50.0-170.0 Iron binding capacity.unsaturated [Mass/volume] in Serum or Plasma 2024-03-26 02:06:27 211 ug/dL F 80.0-375.0 IRON SATURATION 2024-02-26 06:41:17 11 % F 16.0-46.0 TIBC 2024-02-26 06:41:17 235 ug/dL F 250.0-425.0 Iron [Mass/volume] in Serum or Plasma 2024-02-26 06:39:07 25 ug/dL F 50.0-170.0 Iron binding capacity.unsaturated [Mass/volume] in Serum or Plasma 2024-02-26 06:39:07 210 ug/dL F 80.0-375.0 Ferritin [Mass/volume] in Serum or Plasma 2024-02-26 05:37:37 101 ng/mL F 10.0-291.0 HCT CALC HGBX3 2024-02-26 04:02:25 39.9 % F 37.0-47.0 Reticulocytes/100 erythrocytes in Blood by Automated count 2024-02-26 04:01:37 1.96 % F 0.7-2.5 Erythrocytes [#/volume] in Blood by Automated count 2024-02-26 04:01:37 4.52 x 10'6 cells/uL F 3.85-5.2 Erythrocyte distribution width [Ratio] by Automated count 2024-02-26 04:01:37 14.8 % F 11.0-15.0 Hemoglobin [Mass/volume] in Blood 2024-02-26 04:01:37 13.3 g/dL F 12.0-16.0 MCHC [Mass/volume] by Automated count 2024-02-26 04:01:37 31.8 g/dL F 29.6-35.3 MCH [Entitic mass] by Automated count 2024-02-26 04:01:37 29.4 pg F 25.9-34.2 Hematocrit [Volume Fraction] of Blood by Automated count 2024-02-26 04:01:37 41.8 % F 37.0-47.0 MCV [Entitic volume] by Automated count 2024-02-26 04:01:37 92.5 fL F 80.0-100.0 Platelets [#/volume] in Blood by Automated count 2024-02-26 04:01:37 120 x 10^3 cells/uL F 140.0-450.0 IRON SATURATION 2024-01-25 07:27:37 20 % F 16.0-46.0 TIBC 2024-01-25 07:27:37 275 ug/dL F 250.0-425.0 IRON SATURATION 2024-01-25 07:27:37 20 % F 16.0-46.0 TIBC 2024-01-25 07:27:37 275 ug/dL F 250.0-425.0 IRON SATURATION 2024-01-25 07:27:37 20 % F 16.0-46.0 TIBC 2024-01-25 07:27:37 275 ug/dL F 250.0-425.0 Iron [Mass/volume] in Serum or Plasma 2024-01-25 07:23:43 56 ug/dL F 50.0-170.0 Iron binding capacity.unsaturated [Mass/volume] in Serum or Plasma 2024-01-25 07:23:43 219 ug/dL F 80.0-375.0 Iron [Mass/volume] in Serum or Plasma 2024-01-25 07:23:43 56 ug/dL F 50.0-170.0 Iron binding capacity.unsaturated [Mass/volume] in Serum or Plasma 2024-01-25 07:23:43 219 ug/dL F 80.0-375.0 Iron [Mass/volume] in Serum or Plasma 2024-01-25 07:23:43 56 ug/dL F 50.0-170.0 Iron binding capacity.unsaturated [Mass/volume] in Serum or Plasma 2024-01-25 07:23:43 219 ug/dL F 80.0-375.0 HCT CALC HGBX3 2024-01-24 05:34:04 40.5 % F 37.0-47.0 HCT CALC HGBX3 2024-01-24 05:34:04 40.5 % F 37.0-47.0 HCT CALC HGBX3 2024-01-24 05:34:04 40.5 % F 37.0-47.0 Reticulocytes/100 erythrocytes in Blood by Automated count 2024-01-24 05:33:32 1.53 % F 0.7-2.5 Erythrocytes [#/volume] in Blood by Automated count 2024-01-24 05:33:32 4.56 x 10'6 cells/uL F 3.85-5.2 Erythrocyte distribution width [Ratio] by Automated count 2024-01-24 05:33:32 16 % F 11.0-15.0 Hemoglobin [Mass/volume] in Blood 2024-01-24 05:33:32 13.5 g/dL F 12.0-16.0 MCH [Entitic mass] by Automated count 2024-01-24 05:33:32 29.6 pg F 25.9-34.2 MCHC [Mass/volume] by Automated count 2024-01-24 05:33:32 31.6 g/dL F 29.6-35.3 Hematocrit [Volume Fraction] of Blood by Automated count 2024-01-24 05:33:32 42.7 % F 37.0-47.0 MCV [Entitic volume] by Automated count 2024-01-24 05:33:32 93.6 fL F 80.0-100.0 Platelets [#/volume] in Blood by Automated count 2024-01-24 05:33:32 126 x 10^3 cells/uL F 140.0-450.0 Reticulocytes/100 erythrocytes in Blood by Automated count 2024-01-24 05:33:32 1.53 % F 0.7-2.5 Erythrocytes [#/volume] in Blood by Automated count 2024-01-24 05:33:32 4.56 x 10'6 cells/uL F 3.85-5.2 Hemoglobin [Mass/volume] in Blood 2024-01-24 05:33:32 13.5 g/dL F 12.0-16.0 Erythrocyte distribution width [Ratio] by Automated count 2024-01-24 05:33:32 16 % F 11.0-15.0 MCHC [Mass/volume] by Automated count 2024-01-24 05:33:32 31.6 g/dL F 29.6-35.3 MCH [Entitic mass] by Automated count 2024-01-24 05:33:32 29.6 pg F 25.9-34.2 Hematocrit [Volume Fraction] of Blood by Automated count 2024-01-24 05:33:32 42.7 % F 37.0-47.0 MCV [Entitic volume] by Automated count 2024-01-24 05:33:32 93.6 fL F 80.0-100.0 Platelets [#/volume] in Blood by Automated count 2024-01-24 05:33:32 126 x 10^3 cells/uL F 140.0-450.0 Erythrocyte distribution width [Ratio] by Automated count 2024-01-24 05:33:32 16 % F 11.0-15.0 MCH [Entitic mass] by Automated count 2024-01-24 05:33:32 29.6 pg F 25.9-34.2 MCV [Entitic volume] by Automated count 2024-01-24 05:33:32 93.6 fL F 80.0-100.0 Erythrocytes [#/volume] in Blood by Automated count 2024-01-24 05:33:32 4.56 x 10'6 cells/uL F 3.85-5.2 MCHC [Mass/volume] by Automated count 2024-01-24 05:33:32 31.6 g/dL F 29.6-35.3 Platelets [#/volume] in Blood by Automated count 2024-01-24 05:33:32 126 x 10^3 cells/uL F 140.0-450.0 Hemoglobin [Mass/volume] in Blood 2024-01-24 05:33:32 13.5 g/dL F 12.0-16.0 Hematocrit [Volume Fraction] of Blood by Automated count 2024-01-24 05:33:32 42.7 % F 37.0-47.0 Reticulocytes/100 erythrocytes in Blood by Automated count 2024-01-24 05:33:32 1.53 % F 0.7-2.5 Ferritin [Mass/volume] in Serum or Plasma 2024-01-24 03:10:24 72 ng/mL F 10.0-291.0 Ferritin [Mass/volume] in Serum or Plasma 2024-01-24 03:10:24 72 ng/mL F 10.0-291.0 Ferritin [Mass/volume] in Serum or Plasma 2024-01-24 03:10:24 72 ng/mL F 10.0-291.0 Ferritin [Mass/volume] in Serum or Plasma 2024-01-01 06:58:22 86 ng/mL F 10.0-291.0 Ferritin [Mass/volume] in Serum or Plasma 2024-01-01 06:58:22 86 ng/mL F 10.0-291.0 Ferritin [Mass/volume] in Serum or Plasma 2024-01-01 06:58:22 86 ng/mL F 10.0-291.0 HCT CALC HGBX3 2023-12-31 23:54:37 42.3 % F 37.0-47.0 HCT CALC HGBX3 2023-12-31 23:54:37 42.3 % F 37.0-47.0 HCT CALC HGBX3 2023-12-31 23:54:37 42.3 % F 37.0-47.0 Reticulocytes/100 erythrocytes in Blood by Automated count 2023-12-31 23:53:39 1.81 % F 0.7-2.5 Erythrocytes [#/volume] in Blood by Automated count 2023-12-31 23:53:39 4.62 x 10'6 cells/uL F 3.85-5.2 Erythrocyte distribution width [Ratio] by Automated count 2023-12-31 23:53:39 14.7 % F 11.0-15.0 Hemoglobin [Mass/volume] in Blood 2023-12-31 23:53:39 14.1 g/dL F 12.0-16.0 MCH [Entitic mass] by Automated count 2023-12-31 23:53:39 30.5 pg F 25.9-34.2 MCHC [Mass/volume] by Automated count 2023-12-31 23:53:39 33.6 g/dL F 29.6-35.3 Hematocrit [Volume Fraction] of Blood by Automated count 2023-12-31 23:53:39 42 % F 37.0-47.0 MCV [Entitic volume] by Automated count 2023-12-31 23:53:39 90.8 fL F 80.0-100.0 Platelets [#/volume] in Blood by Automated count 2023-12-31 23:53:39 138 x 10^3 cells/uL F 140.0-450.0 Reticulocytes/100 erythrocytes in Blood by Automated count 2023-12-31 23:53:39 1.81 % F 0.7-2.5 Erythrocytes [#/volume] in Blood by Automated count 2023-12-31 23:53:39 4.62 x 10'6 cells/uL F 3.85-5.2 Erythrocyte distribution width [Ratio] by Automated count 2023-12-31 23:53:39 14.7 % F 11.0-15.0 Hemoglobin [Mass/volume] in Blood 2023-12-31 23:53:39 14.1 g/dL F 12.0-16.0 MCH [Entitic mass] by Automated count 2023-12-31 23:53:39 30.5 pg F 25.9-34.2 Hematocrit [Volume Fraction] of Blood by Automated count 2023-12-31 23:53:39 42 % F 37.0-47.0 MCHC [Mass/volume] by Automated count 2023-12-31 23:53:39 33.6 g/dL F 29.6-35.3 MCV [Entitic volume] by Automated count 2023-12-31 23:53:39 90.8 fL F 80.0-100.0 Platelets [#/volume] in Blood by Automated count 2023-12-31 23:53:39 138 x 10^3 cells/uL F 140.0-450.0 Erythrocyte distribution width [Ratio] by Automated count 2023-12-31 23:53:39 14.7 % F 11.0-15.0 Hematocrit [Volume Fraction] of Blood by Automated count 2023-12-31 23:53:39 42 % F 37.0-47.0 Hemoglobin [Mass/volume] in Blood 2023-12-31 23:53:39 14.1 g/dL F 12.0-16.0 MCH [Entitic mass] by Automated count 2023-12-31 23:53:39 30.5 pg F 25.9-34.2 MCHC [Mass/volume] by Automated count 2023-12-31 23:53:39 33.6 g/dL F 29.6-35.3 Erythrocytes [#/volume] in Blood by Automated count 2023-12-31 23:53:39 4.62 x 10'6 cells/uL F 3.85-5.2 MCV [Entitic volume] by Automated count 2023-12-31 23:53:39 90.8 fL F 80.0-100.0 Platelets [#/volume] in Blood by Automated count 2023-12-31 23:53:39 138 x 10^3 cells/uL F 140.0-450.0 Reticulocytes/100 erythrocytes in Blood by Automated count 2023-12-31 23:53:39 1.81 % F 0.7-2.5 IRON SATURATION 2023-12-31 18:31:34 22 % F 16.0-46.0 TIBC 2023-12-31 18:31:34 287 ug/dL F 250.0-425.0 IRON SATURATION 2023-12-31 18:31:34 22 % F 16.0-46.0 TIBC 2023-12-31 18:31:34 287 ug/dL F 250.0-425.0 TIBC 2023-12-31 18:31:34 287 ug/dL F 250.0-425.0 IRON SATURATION 2023-12-31 18:31:34 22 % F 16.0-46.0 Iron [Mass/volume] in Serum or Plasma 2023-12-31 18:31:03 62 ug/dL F 50.0-170.0 Iron binding capacity.unsaturated [Mass/volume] in Serum or Plasma 2023-12-31 18:31:03 225 ug/dL F 80.0-375.0 Iron [Mass/volume] in Serum or Plasma 2023-12-31 18:31:03 62 ug/dL F 50.0-170.0 Iron binding capacity.unsaturated [Mass/volume] in Serum or Plasma 2023-12-31 18:31:03 225 ug/dL F 80.0-375.0 Iron [Mass/volume] in Serum or Plasma 2023-12-31 18:31:03 62 ug/dL F 50.0-170.0 Iron binding capacity.unsaturated [Mass/volume] in Serum or Plasma 2023-12-31 18:31:03 225 ug/dL F 80.0-375.0 Ferritin [Mass/volume] in Serum or Plasma 2023-12-01 04:56:58 66 ng/mL F 10.0-291.0 Ferritin [Mass/volume] in Serum or Plasma 2023-12-01 04:56:58 66 ng/mL F 10.0-291.0 IRON SATURATION 2023-11-30 20:54:53 18 % F 16.0-46.0 TIBC 2023-11-30 20:54:53 294 ug/dL F 250.0-425.0 IRON SATURATION 2023-11-30 20:54:53 18 % F 16.0-46.0 TIBC 2023-11-30 20:54:53 294 ug/dL F 250.0-425.0 Iron [Mass/volume] in Serum or Plasma 2023-11-30 20:53:33 53 ug/dL F 50.0-170.0 Iron [Mass/volume] in Serum or Plasma 2023-11-30 20:53:33 53 ug/dL F 50.0-170.0 Iron binding capacity.unsaturated [Mass/volume] in Serum or Plasma 2023-11-30 20:53:32 241 ug/dL F 80.0-375.0 Iron binding capacity.unsaturated [Mass/volume] in Serum or Plasma 2023-11-30 20:53:32 241 ug/dL F 80.0-375.0 HCT CALC HGBX3 2023-11-30 17:36:59 40.5 % F 37.0-47.0 HCT CALC HGBX3 2023-11-30 17:36:59 40.5 % F 37.0-47.0 Erythrocytes [#/volume] in Blood by Automated count 2023-11-30 17:36:49 4.75 x 10'6 cells/uL F 3.85-5.2 Erythrocyte distribution width [Ratio] by Automated count 2023-11-30 17:36:49 15.4 % F 11.0-15.0 MCH [Entitic mass] by Automated count 2023-11-30 17:36:49 28.4 pg F 25.9-34.2 MCHC [Mass/volume] by Automated count 2023-11-30 17:36:49 31 g/dL F 29.6-35.3 Platelets [#/volume] in Blood by Automated count 2023-11-30 17:36:49 119 x 10^3 cells/uL F 140.0-450.0 Erythrocytes [#/volume] in Blood by Automated count 2023-11-30 17:36:49 4.75 x 10'6 cells/uL F 3.85-5.2 Platelets [#/volume] in Blood by Automated count 2023-11-30 17:36:49 119 x 10^3 cells/uL F 140.0-450.0 Erythrocyte distribution width [Ratio] by Automated count 2023-11-30 17:36:49 15.4 % F 11.0-15.0 MCH [Entitic mass] by Automated count 2023-11-30 17:36:49 28.4 pg F 25.9-34.2 MCHC [Mass/volume] by Automated count 2023-11-30 17:36:49 31 g/dL F 29.6-35.3 Reticulocytes/100 erythrocytes in Blood by Automated count 2023-11-30 17:36:47 1.52 % F 0.7-2.5 MCV [Entitic volume] by Automated count 2023-11-30 17:36:47 91.7 fL F 80.0-100.0 MCV [Entitic volume] by Automated count 2023-11-30 17:36:47 91.7 fL F 80.0-100.0 Reticulocytes/100 erythrocytes in Blood by Automated count 2023-11-30 17:36:47 1.52 % F 0.7-2.5 Hemoglobin [Mass/volume] in Blood 2023-11-30 17:36:42 13.5 g/dL F 12.0-16.0 Hematocrit [Volume Fraction] of Blood by Automated count 2023-11-30 17:36:42 43.6 % F 37.0-47.0 Hematocrit [Volume Fraction] of Blood by Automated count 2023-11-30 17:36:42 43.6 % F 37.0-47.0 Hemoglobin [Mass/volume] in Blood 2023-11-30 17:36:42 13.5 g/dL F 12.0-16.0 IRON SATURATION 2023-11-02 08:14:56 18 % F 16.0-46.0 TIBC 2023-11-02 08:14:56 296 ug/dL F 250.0-425.0 Iron [Mass/volume] in Serum or Plasma 2023-11-02 08:09:54 52 ug/dL F 50.0-170.0 Iron binding capacity.unsaturated [Mass/volume] in Serum or Plasma 2023-11-02 08:09:54 244 ug/dL F 80.0-375.0 Ferritin [Mass/volume] in Serum or Plasma 2023-11-02 07:55:43 75 ng/mL F 10.0-291.0 HCT CALC HGBX3 2023-11-02 04:44:20 41.1 % F 37.0-47.0 Reticulocytes/100 erythrocytes in Blood by Automated count 2023-11-02 04:43:40 1.83 % F 0.7-2.5 Erythrocytes [#/volume] in Blood by Automated count 2023-11-02 04:43:40 4.54 x 10'6 cells/uL F 3.85-5.2 Erythrocyte distribution width [Ratio] by Automated count 2023-11-02 04:43:40 14.4 % F 11.0-15.0 Hemoglobin [Mass/volume] in Blood 2023-11-02 04:43:40 13.7 g/dL F 12.0-16.0 MCHC [Mass/volume] by Automated count 2023-11-02 04:43:40 33.6 g/dL F 29.6-35.3 MCH [Entitic mass] by Automated count 2023-11-02 04:43:40 30.1 pg F 25.9-34.2 Hematocrit [Volume Fraction] of Blood by Automated count 2023-11-02 04:43:40 40.7 % F 37.0-47.0 MCV [Entitic volume] by Automated count 2023-11-02 04:43:40 89.6 fL F 80.0-100.0 Platelets [#/volume] in Blood by Automated count 2023-11-02 04:43:40 135 x 10^3 cells/uL F 140.0-450.0 Ferritin [Mass/volume] in Serum or Plasma 2023-09-01 02:26:18 117 ng/mL F 10.0-291.0 IRON SATURATION 2023-08-31 20:22:29 15 % F 16.0-46.0 TIBC 2023-08-31 20:22:29 269 ug/dL F 250.0-425.0 Iron binding capacity.unsaturated [Mass/volume] in Serum or Plasma 2023-08-31 20:22:11 228 ug/dL F 80.0-375.0 Iron [Mass/volume] in Serum or Plasma 2023-08-31 20:22:11 41 ug/dL F 50.0-170.0 HCT CALC HGBX3 2023-08-31 16:30:12 36.3 % F 37.0-47.0 Reticulocytes/100 erythrocytes in Blood by Automated count 2023-08-31 16:29:36 2.52 % F 0.7-2.5 Erythrocytes [#/volume] in Blood by Automated count 2023-08-31 16:29:36 4.16 x 10'6 cells/uL F 3.85-5.2 Erythrocyte distribution width [Ratio] by Automated count 2023-08-31 16:29:36 16.5 % F 11.0-15.0 Hemoglobin [Mass/volume] in Blood 2023-08-31 16:29:36 12.1 g/dL F 12.0-16.0 MCHC [Mass/volume] by Automated count 2023-08-31 16:29:36 32.1 g/dL F 29.6-35.3 Hematocrit [Volume Fraction] of Blood by Automated count 2023-08-31 16:29:36 37.8 % F 37.0-47.0 MCH [Entitic mass] by Automated count 2023-08-31 16:29:36 29.2 pg F 25.9-34.2 MCV [Entitic volume] by Automated count 2023-08-31 16:29:36 90.9 fL F 80.0-100.0 Platelets [#/volume] in Blood by Automated count 2023-08-31 16:29:36 102 x 10^3 cells/uL F 140.0-450.0 TIBC 2023-07-24 07:18:53 279 ug/dL F 250.0-425.0 IRON SATURATION 2023-07-24 07:18:53 11 % F 16.0-46.0 Iron [Mass/volume] in Serum or Plasma 2023-07-24 07:14:55 32 ug/dL F 50.0-170.0 Iron binding capacity.unsaturated [Mass/volume] in Serum or Plasma 2023-07-24 07:14:55 247 ug/dL F 80.0-375.0 Ferritin [Mass/volume] in Serum or Plasma 2023-07-24 05:34:08 111 ng/mL F 10.0-291.0 HCT CALC HGBX3 2023-07-23 17:37:56 40.5 % F 37.0-47.0 Platelets [#/volume] in Blood by Automated count 2023-07-23 17:37:40 141 x 10^3 cells/uL F 140.0-450.0 Erythrocyte distribution width [Ratio] by Automated count 2023-07-23 17:37:40 14.5 % F 11.0-15.0 MCV [Entitic volume] by Automated count 2023-07-23 17:37:38 89.5 fL F 80.0-100.0 Reticulocytes/100 erythrocytes in Blood by Automated count 2023-07-23 17:37:38 2.01 % F 0.7-2.5 Erythrocytes [#/volume] in Blood by Automated count 2023-07-23 17:37:38 4.68 x 10'6 cells/uL F 3.85-5.2 Hemoglobin [Mass/volume] in Blood 2023-07-23 17:37:38 13.5 g/dL F 12.0-16.0 MCH [Entitic mass] by Automated count 2023-07-23 17:37:38 28.9 pg F 25.9-34.2 MCHC [Mass/volume] by Automated count 2023-07-23 17:37:38 32.3 g/dL F 29.6-35.3 Hematocrit [Volume Fraction] of Blood by Automated count 2023-07-23 17:37:38 41.8 % F 37.0-47.0 IRON SATURATION 2023-07-10 05:01:12 27 % F 16.0-46.0 TIBC 2023-07-10 05:01:12 282 ug/dL F 250.0-425.0 TIBC 2023-07-10 05:01:12 282 ug/dL F 250.0-425.0 IRON SATURATION 2023-07-10 05:01:12 27 % F 16.0-46.0 Iron [Mass/volume] in Serum or Plasma 2023-07-10 04:58:48 75 ug/dL F 50.0-170.0 Iron [Mass/volume] in Serum or Plasma 2023-07-10 04:58:48 75 ug/dL F 50.0-170.0 Iron binding capacity.unsaturated [Mass/volume] in Serum or Plasma 2023-07-10 04:58:38 207 ug/dL F 80.0-375.0 Iron binding capacity.unsaturated [Mass/volume] in Serum or Plasma 2023-07-10 04:58:38 207 ug/dL F 80.0-375.0 Ferritin [Mass/volume] in Serum or Plasma 2023-07-10 01:32:46 111 ng/mL F 10.0-291.0 Ferritin [Mass/volume] in Serum or Plasma 2023-07-10 01:32:46 111 ng/mL F 10.0-291.0 HCT CALC HGBX3 2023-07-09 15:08:29 41.1 % F 37.0-47.0 HCT CALC HGBX3 2023-07-09 15:08:29 41.1 % F 37.0-47.0 Reticulocytes/100 erythrocytes in Blood by Automated count 2023-07-09 15:07:42 1.79 % F 0.7-2.5 Erythrocytes [#/volume] in Blood by Automated count 2023-07-09 15:07:42 4.68 x 10'6 cells/uL F 3.85-5.2 Hemoglobin [Mass/volume] in Blood 2023-07-09 15:07:42 13.7 g/dL F 12.0-16.0 Erythrocyte distribution width [Ratio] by Automated count 2023-07-09 15:07:42 14 % F 11.0-15.0 MCH [Entitic mass] by Automated count 2023-07-09 15:07:42 29.2 pg F 25.9-34.2 MCHC [Mass/volume] by Automated count 2023-07-09 15:07:42 32.2 g/dL F 29.6-35.3 Hematocrit [Volume Fraction] of Blood by Automated count 2023-07-09 15:07:42 42.5 % F 37.0-47.0 MCV [Entitic volume] by Automated count 2023-07-09 15:07:42 90.7 fL F 80.0-100.0 Platelets [#/volume] in Blood by Automated count 2023-07-09 15:07:42 163 x 10^3 cells/uL F 140.0-450.0 Erythrocyte distribution width [Ratio] by Automated count 2023-07-09 15:07:42 14 % F 11.0-15.0 Hemoglobin [Mass/volume] in Blood 2023-07-09 15:07:42 13.7 g/dL F 12.0-16.0 MCV [Entitic volume] by Automated count 2023-07-09 15:07:42 90.7 fL F 80.0-100.0 MCH [Entitic mass] by Automated count 2023-07-09 15:07:42 29.2 pg F 25.9-34.2 MCHC [Mass/volume] by Automated count 2023-07-09 15:07:42 32.2 g/dL F 29.6-35.3 Platelets [#/volume] in Blood by Automated count 2023-07-09 15:07:42 163 x 10^3 cells/uL F 140.0-450.0 Erythrocytes [#/volume] in Blood by Automated count 2023-07-09 15:07:42 4.68 x 10'6 cells/uL F 3.85-5.2 Hematocrit [Volume Fraction] of Blood by Automated count 2023-07-09 15:07:42 42.5 % F 37.0-47.0 Reticulocytes/100 erythrocytes in Blood by Automated count 2023-07-09 15:07:42 1.79 % F 0.7-2.5 IRON SATURATION 2023-05-24 17:47:35 18 % F 16.0-46.0 TIBC 2023-05-24 17:47:35 259 ug/dL F 250.0-425.0 Iron [Mass/volume] in Serum or Plasma 2023-05-24 17:46:36 47 ug/dL F 50.0-170.0 Iron binding capacity.unsaturated [Mass/volume] in Serum or Plasma 2023-05-24 17:46:36 212 ug/dL F 80.0-375.0 Ferritin [Mass/volume] in Serum or Plasma 2023-05-24 17:16:29 174 ng/mL F 10.0-291.0 HCT CALC HGBX3 2023-05-24 15:20:59 37.5 % F 37.0-47.0 Reticulocytes/100 erythrocytes in Blood by Automated count 2023-05-24 15:20:46 2 % F 0.7-2.5 Erythrocytes [#/volume] in Blood by Automated count 2023-05-24 15:20:46 4.18 x 10'6 cells/uL F 3.85-5.2 Erythrocyte distribution width [Ratio] by Automated count 2023-05-24 15:20:46 15.1 % F 11.0-15.0 Hemoglobin [Mass/volume] in Blood 2023-05-24 15:20:46 12.5 g/dL F 12.0-16.0 MCHC [Mass/volume] by Automated count 2023-05-24 15:20:46 32.2 g/dL F 29.6-35.3 MCH [Entitic mass] by Automated count 2023-05-24 15:20:46 30 pg F 25.9-34.2 Hematocrit [Volume Fraction] of Blood by Automated count 2023-05-24 15:20:46 39 % F 37.0-47.0 MCV [Entitic volume] by Automated count 2023-05-24 15:20:46 93.3 fL F 80.0-100.0 Platelets [#/volume] in Blood by Automated count 2023-05-24 15:20:46 160 x 10^3 cells/uL F 140.0-450.0 IRON SATURATION 2023-05-03 05:06:18 17 % F 16.0-46.0 TIBC 2023-05-03 05:06:18 272 ug/dL F 250.0-425.0 Iron [Mass/volume] in Serum or Plasma 2023-05-03 04:59:37 46 ug/dL F 50.0-170.0 Iron binding capacity.unsaturated [Mass/volume] in Serum or Plasma 2023-05-03 04:59:37 226 ug/dL F 80.0-375.0 HCT CALC HGBX3 2023-05-02 23:06:51 39.9 % F 37.0-47.0 Reticulocytes/100 erythrocytes in Blood by Automated count 2023-05-02 23:05:44 2.11 % F 0.7-2.5 Erythrocytes [#/volume] in Blood by Automated count 2023-05-02 23:05:44 4.48 x 10'6 cells/uL F 3.85-5.2 Hemoglobin [Mass/volume] in Blood 2023-05-02 23:05:44 13.3 g/dL F 12.0-16.0 Erythrocyte distribution width [Ratio] by Automated count 2023-05-02 23:05:44 15.3 % F 11.0-15.0 MCH [Entitic mass] by Automated count 2023-05-02 23:05:44 29.7 pg F 25.9-34.2 Hematocrit [Volume Fraction] of Blood by Automated count 2023-05-02 23:05:44 41.9 % F 37.0-47.0 MCHC [Mass/volume] by Automated count 2023-05-02 23:05:44 31.8 g/dL F 29.6-35.3 MCV [Entitic volume] by Automated count 2023-05-02 23:05:44 93.4 fL F 80.0-100.0 Platelets [#/volume] in Blood by Automated count 2023-05-02 23:05:44 154 x 10^3 cells/uL F 140.0-450.0 Ferritin [Mass/volume] in Serum or Plasma 2023-05-02 21:23:46 100 ng/mL F 10.0-291.0 Ferritin [Mass/volume] in Serum or Plasma 2023-03-27 07:24:06 113 ng/mL F 10.0-291.0 Ferritin [Mass/volume] in Serum or Plasma 2023-03-27 07:24:06 113 ng/mL F 10.0-291.0 HCT CALC HGBX3 2023-03-27 02:06:43 39.9 % F 37.0-47.0 HCT CALC HGBX3 2023-03-27 02:06:43 39.9 % F 37.0-47.0 Reticulocytes/100 erythrocytes in Blood by Automated count 2023-03-27 02:06:25 1.68 % F 0.7-2.5 Erythrocytes [#/volume] in Blood by Automated count 2023-03-27 02:06:25 4.6 x 10'6 cells/uL F 3.85-5.2 Erythrocyte distribution width [Ratio] by Automated count 2023-03-27 02:06:25 15.5 % F 11.0-15.0 Hemoglobin [Mass/volume] in Blood 2023-03-27 02:06:25 13.3 g/dL F 12.0-16.0 MCH [Entitic mass] by Automated count 2023-03-27 02:06:25 28.8 pg F 25.9-34.2 MCHC [Mass/volume] by Automated count 2023-03-27 02:06:25 31.2 g/dL F 29.6-35.3 Hematocrit [Volume Fraction] of Blood by Automated count 2023-03-27 02:06:25 42.5 % F 37.0-47.0 MCV [Entitic volume] by Automated count 2023-03-27 02:06:25 92.4 fL F 80.0-100.0 Platelets [#/volume] in Blood by Automated count 2023-03-27 02:06:25 133 x 10^3 cells/uL F 140.0-450.0 Erythrocyte distribution width [Ratio] by Automated count 2023-03-27 02:06:25 15.5 % F 11.0-15.0 Erythrocytes [#/volume] in Blood by Automated count 2023-03-27 02:06:25 4.6 x 10'6 cells/uL F 3.85-5.2 Hematocrit [Volume Fraction] of Blood by Automated count 2023-03-27 02:06:25 42.5 % F 37.0-47.0 Platelets [#/volume] in Blood by Automated count 2023-03-27 02:06:25 133 x 10^3 cells/uL F 140.0-450.0 MCH [Entitic mass] by Automated count 2023-03-27 02:06:25 28.8 pg F 25.9-34.2 Hemoglobin [Mass/volume] in Blood 2023-03-27 02:06:25 13.3 g/dL F 12.0-16.0 MCV [Entitic volume] by Automated count 2023-03-27 02:06:25 92.4 fL F 80.0-100.0 Reticulocytes/100 erythrocytes in Blood by Automated count 2023-03-27 02:06:25 1.68 % F 0.7-2.5 MCHC [Mass/volume] by Automated count 2023-03-27 02:06:25 31.2 g/dL F 29.6-35.3 IRON SATURATION 2023-03-26 22:46:31 19 % F 16.0-46.0 TIBC 2023-03-26 22:46:31 262 ug/dL F 250.0-425.0 IRON SATURATION 2023-03-26 22:46:31 19 % F 16.0-46.0 TIBC 2023-03-26 22:46:31 262 ug/dL F 250.0-425.0 Iron [Mass/volume] in Serum or Plasma 2023-03-26 22:43:55 50 ug/dL F 50.0-170.0 Iron binding capacity.unsaturated [Mass/volume] in Serum or Plasma 2023-03-26 22:43:55 212 ug/dL F 80.0-375.0 Iron binding capacity.unsaturated [Mass/volume] in Serum or Plasma 2023-03-26 22:43:55 212 ug/dL F 80.0-375.0 Iron [Mass/volume] in Serum or Plasma 2023-03-26 22:43:55 50 ug/dL F 50.0-170.0 IRON SATURATION 2023-02-24 04:56:25 20 % F 16.0-46.0 TIBC 2023-02-24 04:56:25 267 ug/dL F 250.0-425.0 Iron [Mass/volume] in Serum or Plasma 2023-02-24 04:52:49 54 ug/dL F 50.0-170.0 Iron binding capacity.unsaturated [Mass/volume] in Serum or Plasma 2023-02-24 04:52:47 213 ug/dL F 80.0-375.0 HCT CALC HGBX3 2023-02-23 21:44:03 41.1 % F 37.0-47.0 Reticulocytes/100 erythrocytes in Blood by Automated count 2023-02-23 21:43:11 1.4 % F 0.8-2.1 Erythrocytes [#/volume] in Blood by Automated count 2023-02-23 21:43:11 4.93 x 10'6 cells/uL F 4.2-5.4 Erythrocyte distribution width [Ratio] by Automated count 2023-02-23 21:43:11 15.1 % F 11.0-15.0 Hemoglobin [Mass/volume] in Blood 2023-02-23 21:43:11 13.7 g/dL F 12.0-16.0 MCHC [Mass/volume] by Automated count 2023-02-23 21:43:11 31.5 g/dL F 32.0-36.0 MCH [Entitic mass] by Automated count 2023-02-23 21:43:11 27.8 pg F 27.0-31.0 Hematocrit [Volume Fraction] of Blood by Automated count 2023-02-23 21:43:11 43.5 % F 37.0-47.0 MCV [Entitic volume] by Automated count 2023-02-23 21:43:11 88.3 fL F 80.0-100.0 Platelets [#/volume] in Blood by Automated count 2023-02-23 21:43:11 211 x 10^3 cells/uL F 150.0-400.0 Ferritin [Mass/volume] in Serum or Plasma 2023-02-23 19:45:19 135 ng/mL F 10.0-291.0 IRON SATURATION 2023-01-26 06:50:15 19 % F 16.0-46.0 TIBC 2023-01-26 06:50:15 282 ug/dL F 250.0-425.0 Iron binding capacity.unsaturated [Mass/volume] in Serum or Plasma 2023-01-26 06:22:35 229 ug/dL F 80.0-375.0 Iron [Mass/volume] in Serum or Plasma 2023-01-26 06:22:13 53 ug/dL F 50.0-170.0 Ferritin [Mass/volume] in Serum or Plasma 2023-01-26 01:42:16 90 ng/mL F 10.0-291.0 HCT CALC HGBX3 2023-01-25 16:55:06 38.1 % F 37.0-47.0 Reticulocytes/100 erythrocytes in Blood by Automated count 2023-01-25 16:54:23 1.37 % F 0.8-2.1 MCH [Entitic mass] by Automated count 2023-01-25 16:54:23 28.6 pg F 27.0-31.0 MCHC [Mass/volume] by Automated count 2023-01-25 16:54:23 32.3 g/dL F 32.0-36.0 MCV [Entitic volume] by Automated count 2023-01-25 16:54:23 88.6 fL F 80.0-100.0 Erythrocytes [#/volume] in Blood by Automated count 2023-01-25 16:54:21 4.45 x 10'6 cells/uL F 4.2-5.4 Erythrocyte distribution width [Ratio] by Automated count 2023-01-25 16:54:21 16.1 % F 11.0-15.0 Hemoglobin [Mass/volume] in Blood 2023-01-25 16:54:21 12.7 g/dL F 12.0-16.0 Hematocrit [Volume Fraction] of Blood by Automated count 2023-01-25 16:54:21 39.5 % F 37.0-47.0 Platelets [#/volume] in Blood by Automated count 2023-01-25 16:54:21 111 x 10^3 cells/uL F 150.0-400.0 IRON SATURATION 2023-01-02 06:46:11 17 % F 16.0-46.0 TIBC 2023-01-02 06:46:11 271 ug/dL F 250.0-425.0 Iron [Mass/volume] in Serum or Plasma 2023-01-02 06:43:44 45 ug/dL F 50.0-170.0 Iron binding capacity.unsaturated [Mass/volume] in Serum or Plasma 2023-01-02 06:43:44 226 ug/dL F 80.0-375.0 Ferritin [Mass/volume] in Serum or Plasma 2023-01-01 14:41:21 103 ng/mL F 10.0-291.0 HCT CALC HGBX3 2023-01-01 14:25:49 37.2 % F 37.0-47.0 Reticulocytes/100 erythrocytes in Blood by Automated count 2023-01-01 14:25:15 1.86 % F 0.8-2.1 Erythrocytes [#/volume] in Blood by Automated count 2023-01-01 14:25:15 4.4 x 10'6 cells/uL F 4.2-5.4 Erythrocyte distribution width [Ratio] by Automated count 2023-01-01 14:25:15 16.5 % F 11.0-15.0 Hemoglobin [Mass/volume] in Blood 2023-01-01 14:25:15 12.4 g/dL F 12.0-16.0 MCHC [Mass/volume] by Automated count 2023-01-01 14:25:15 32.5 g/dL F 32.0-36.0 MCH [Entitic mass] by Automated count 2023-01-01 14:25:15 28.3 pg F 27.0-31.0 Hematocrit [Volume Fraction] of Blood by Automated count 2023-01-01 14:25:15 38.2 % F 37.0-47.0 MCV [Entitic volume] by Automated count 2023-01-01 14:25:15 86.9 fL F 80.0-100.0 Platelets [#/volume] in Blood by Automated count 2023-01-01 14:25:15 176 x 10^3 cells/uL F 150.0-400.0 IRON SATURATION 2022-12-02 06:50:40 18 % F 16.0-46.0 TIBC 2022-12-02 06:50:40 262 ug/dL F 250.0-425.0 Iron [Mass/volume] in Serum or Plasma 2022-12-02 06:45:13 47 ug/dL F 50.0-170.0 Iron binding capacity.unsaturated [Mass/volume] in Serum or Plasma 2022-12-02 06:45:13 215 ug/dL F 80.0-375.0 Ferritin [Mass/volume] in Serum or Plasma 2022-12-02 04:35:48 104 ng/mL F 10.0-291.0 HCT CALC HGBX3 2022-12-01 22:28:15 37.8 % F 37.0-47.0 Reticulocytes/100 erythrocytes in Blood by Automated count 2022-12-01 22:27:54 1.4 % F 0.8-2.1 Erythrocytes [#/volume] in Blood by Automated count 2022-12-01 22:27:54 4.55 x 10'6 cells/uL F 4.2-5.4 Erythrocyte distribution width [Ratio] by Automated count 2022-12-01 22:27:54 15 % F 11.0-15.0 Hemoglobin [Mass/volume] in Blood 2022-12-01 22:27:54 12.6 g/dL F 12.0-16.0 MCHC [Mass/volume] by Automated count 2022-12-01 22:27:54 31.6 g/dL F 32.0-36.0 MCH [Entitic mass] by Automated count 2022-12-01 22:27:54 27.7 pg F 27.0-31.0 Hematocrit [Volume Fraction] of Blood by Automated count 2022-12-01 22:27:54 39.9 % F 37.0-47.0 MCV [Entitic volume] by Automated count 2022-12-01 22:27:54 87.7 fL F 80.0-100.0 Platelets [#/volume] in Blood by Automated count 2022-12-01 22:27:54 177 x 10^3 cells/uL F 150.0-400.0 IRON SATURATION 2022-11-07 07:28:52 13 % F 16.0-46.0 TIBC 2022-11-07 07:28:52 254 ug/dL F 250.0-425.0 IRON SATURATION 2022-11-07 07:28:52 13 % F 16.0-46.0 TIBC 2022-11-07 07:28:52 254 ug/dL F 250.0-425.0 TIBC 2022-11-07 07:28:52 254 ug/dL F 250.0-425.0 IRON SATURATION 2022-11-07 07:28:52 13 % F 16.0-46.0 IRON SATURATION 2022-11-07 07:28:52 13 % F 16.0-46.0 TIBC 2022-11-07 07:28:52 254 ug/dL F 250.0-425.0 Iron binding capacity.unsaturated [Mass/volume] in Serum or Plasma 2022-11-07 07:22:00 220 ug/dL F 80.0-375.0 Iron binding capacity.unsaturated [Mass/volume] in Serum or Plasma 2022-11-07 07:22:00 220 ug/dL F 80.0-375.0 Iron binding capacity.unsaturated [Mass/volume] in Serum or Plasma 2022-11-07 07:22:00 220 ug/dL F 80.0-375.0 Iron binding capacity.unsaturated [Mass/volume] in Serum or Plasma 2022-11-07 07:22:00 220 ug/dL F 80.0-375.0 Iron [Mass/volume] in Serum or Plasma 2022-11-07 04:55:38 34 ug/dL F 50.0-170.0 Iron [Mass/volume] in Serum or Plasma 2022-11-07 04:55:38 34 ug/dL F 50.0-170.0 Iron [Mass/volume] in Serum or Plasma 2022-11-07 04:55:38 34 ug/dL F 50.0-170.0 Iron [Mass/volume] in Serum or Plasma 2022-11-07 04:55:38 34 ug/dL F 50.0-170.0 HCT CALC HGBX3 2022-11-07 03:13:44 37.2 % F 37.0-47.0 HCT CALC HGBX3 2022-11-07 03:13:44 37.2 % F 37.0-47.0 HCT CALC HGBX3 2022-11-07 03:13:44 37.2 % F 37.0-47.0 HCT CALC HGBX3 2022-11-07 03:13:44 37.2 % F 37.0-47.0 Reticulocytes/100 erythrocytes in Blood by Automated count 2022-11-07 03:12:43 1.15 % F 0.8-2.1 Erythrocytes [#/volume] in Blood by Automated count 2022-11-07 03:12:43 4.39 x 10'6 cells/uL F 4.2-5.4 Erythrocyte distribution width [Ratio] by Automated count 2022-11-07 03:12:43 14.7 % F 11.0-15.0 Hemoglobin [Mass/volume] in Blood 2022-11-07 03:12:43 12.4 g/dL F 12.0-16.0 MCH [Entitic mass] by Automated count 2022-11-07 03:12:43 28.3 pg F 27.0-31.0 MCHC [Mass/volume] by Automated count 2022-11-07 03:12:43 32.4 g/dL F 32.0-36.0 Hematocrit [Volume Fraction] of Blood by Automated count 2022-11-07 03:12:43 38.3 % F 37.0-47.0 MCV [Entitic volume] by Automated count 2022-11-07 03:12:43 87.1 fL F 80.0-100.0 Platelets [#/volume] in Blood by Automated count 2022-11-07 03:12:43 153 x 10^3 cells/uL F 150.0-400.0 Reticulocytes/100 erythrocytes in Blood by Automated count 2022-11-07 03:12:43 1.15 % F 0.8-2.1 Erythrocytes [#/volume] in Blood by Automated count 2022-11-07 03:12:43 4.39 x 10'6 cells/uL F 4.2-5.4 Erythrocyte distribution width [Ratio] by Automated count 2022-11-07 03:12:43 14.7 % F 11.0-15.0 Hemoglobin [Mass/volume] in Blood 2022-11-07 03:12:43 12.4 g/dL F 12.0-16.0 MCHC [Mass/volume] by Automated count 2022-11-07 03:12:43 32.4 g/dL F 32.0-36.0 MCH [Entitic mass] by Automated count 2022-11-07 03:12:43 28.3 pg F 27.0-31.0 Hematocrit [Volume Fraction] of Blood by Automated count 2022-11-07 03:12:43 38.3 % F 37.0-47.0 MCV [Entitic volume] by Automated count 2022-11-07 03:12:43 87.1 fL F 80.0-100.0 Platelets [#/volume] in Blood by Automated count 2022-11-07 03:12:43 153 x 10^3 cells/uL F 150.0-400.0 Erythrocytes [#/volume] in Blood by Automated count 2022-11-07 03:12:43 4.39 x 10'6 cells/uL F 4.2-5.4 Erythrocyte distribution width [Ratio] by Automated count 2022-11-07 03:12:43 14.7 % F 11.0-15.0 Hemoglobin [Mass/volume] in Blood 2022-11-07 03:12:43 12.4 g/dL F 12.0-16.0 MCHC [Mass/volume] by Automated count 2022-11-07 03:12:43 32.4 g/dL F 32.0-36.0 Reticulocytes/100 erythrocytes in Blood by Automated count 2022-11-07 03:12:43 1.15 % F 0.8-2.1 Hematocrit [Volume Fraction] of Blood by Automated count 2022-11-07 03:12:43 38.3 % F 37.0-47.0 MCV [Entitic volume] by Automated count 2022-11-07 03:12:43 87.1 fL F 80.0-100.0 MCH [Entitic mass] by Automated count 2022-11-07 03:12:43 28.3 pg F 27.0-31.0 Platelets [#/volume] in Blood by Automated count 2022-11-07 03:12:43 153 x 10^3 cells/uL F 150.0-400.0 Reticulocytes/100 erythrocytes in Blood by Automated count 2022-11-07 03:12:43 1.15 % F 0.8-2.1 Erythrocytes [#/volume] in Blood by Automated count 2022-11-07 03:12:43 4.39 x 10'6 cells/uL F 4.2-5.4 Erythrocyte distribution width [Ratio] by Automated count 2022-11-07 03:12:43 14.7 % F 11.0-15.0 Hemoglobin [Mass/volume] in Blood 2022-11-07 03:12:43 12.4 g/dL F 12.0-16.0 MCH [Entitic mass] by Automated count 2022-11-07 03:12:43 28.3 pg F 27.0-31.0 MCHC [Mass/volume] by Automated count 2022-11-07 03:12:43 32.4 g/dL F 32.0-36.0 Hematocrit [Volume Fraction] of Blood by Automated count 2022-11-07 03:12:43 38.3 % F 37.0-47.0 MCV [Entitic volume] by Automated count 2022-11-07 03:12:43 87.1 fL F 80.0-100.0 Platelets [#/volume] in Blood by Automated count 2022-11-07 03:12:43 153 x 10^3 cells/uL F 150.0-400.0 Ferritin [Mass/volume] in Serum or Plasma 2022-11-07 02:12:50 122 ng/mL F 10.0-291.0 Ferritin [Mass/volume] in Serum or Plasma 2022-11-07 02:12:50 122 ng/mL F 10.0-291.0 Ferritin [Mass/volume] in Serum or Plasma 2022-11-07 02:12:50 122 ng/mL F 10.0-291.0 Ferritin [Mass/volume] in Serum or Plasma 2022-11-07 02:12:50 122 ng/mL F 10.0-291.0 HCT CALC HGBX3 HCT CALC HGBX3 HCT CALC HGBX3 HCT CALC HGBX3 HCT CALC HGBX3 HCT CALC HGBX3 HCT CALC HGBX3 Comorbidities Description Draw Date Result/Unit Status Ref Range Result Comments IP INSULIN 2022-12-31 18:40:34 0 F FluidBP Description Draw Date Result/Unit Status Ref Range Result Comments Sodium [Moles/volume] in Serum or Plasma 2024 06:43:41 140 mEq/L F 132.0-146.0 Sodium [Moles/volume] in Serum or Plasma 2024 06:43:41 140 mEq/L F 132.0-146.0 Sodium [Moles/volume] in Serum or Plasma 2024 06:43:41 140 mEq/L F 132.0-146.0 Sodium [Moles/volume] in Serum or Plasma 2024 06:43:41 140 mEq/L F 132.0-146.0 Sodium [Moles/volume] in Serum or Plasma 2024-09-23 08:02:25 137 mEq/L F 132.0-146.0 Sodium [Moles/volume] in Serum or Plasma 2024-09-23 08:02:25 137 mEq/L F 132.0-146.0 Sodium [Moles/volume] in Serum or Plasma 2024-08-27 07:41:17 139 mEq/L F 132.0-146.0 Sodium [Moles/volume] in Serum or Plasma 2024-07-29 07:18:59 135 mEq/L F 132.0-146.0 Sodium [Moles/volume] in Serum or Plasma 2024-07-01 06:02:24 136 mEq/L F 132.0-146.0 Sodium [Moles/volume] in Serum or Plasma 2024-07-01 06:02:24 136 mEq/L F 132.0-146.0 Sodium [Moles/volume] in Serum or Plasma 2024-07-01 06:02:24 136 mEq/L F 132.0-146.0 Sodium [Moles/volume] in Serum or Plasma 2024-06-05 05:54:13 138 mEq/L F 132.0-146.0 Sodium [Moles/volume] in Serum or Plasma 2024-06-05 05:54:13 138 mEq/L F 132.0-146.0 Sodium [Moles/volume] in Serum or Plasma 2024-05-01 07:11:13 132 mEq/L F 132.0-146.0 Sodium [Moles/volume] in Serum or Plasma 2024-05-01 07:11:13 132 mEq/L F 132.0-146.0 Sodium [Moles/volume] in Serum or Plasma 2024-05-01 07:11:13 132 mEq/L F 132.0-146.0 Sodium [Moles/volume] in Serum or Plasma 2024-03-26 02:06:27 137 mEq/L F 132.0-146.0 Sodium [Moles/volume] in Serum or Plasma 2024-03-26 02:06:27 137 mEq/L F 132.0-146.0 Sodium [Moles/volume] in Serum or Plasma 2024-02-26 06:39:07 136 mEq/L F 132.0-146.0 Sodium [Moles/volume] in Serum or Plasma 2024-01-25 07:23:57 138 mEq/L F 132.0-146.0 Sodium [Moles/volume] in Serum or Plasma 2024-01-25 07:23:57 138 mEq/L F 132.0-146.0 Sodium [Moles/volume] in Serum or Plasma 2024-01-25 07:23:57 138 mEq/L F 132.0-146.0 Sodium [Moles/volume] in Serum or Plasma 2023-12-31 18:30:29 138 mEq/L F 132.0-146.0 Sodium [Moles/volume] in Serum or Plasma 2023-12-31 18:30:29 138 mEq/L F 132.0-146.0 Sodium [Moles/volume] in Serum or Plasma 2023-12-31 18:30:29 138 mEq/L F 132.0-146.0 Sodium [Moles/volume] in Serum or Plasma 2023-11-30 20:53:33 137 mEq/L F 132.0-146.0 Sodium [Moles/volume] in Serum or Plasma 2023-11-30 20:53:33 137 mEq/L F 132.0-146.0 Sodium [Moles/volume] in Serum or Plasma 2023-11-02 08:09:38 139 mEq/L F 132.0-146.0 Sodium [Moles/volume] in Serum or Plasma 2023-08-31 16:42:29 138 mEq/L F 132.0-146.0 Sodium [Moles/volume] in Serum or Plasma 2023-07-23 19:32:35 139 mEq/L F 132.0-146.0 Sodium [Moles/volume] in Serum or Plasma 2023-07-09 21:47:39 136 mEq/L F 132.0-146.0 Sodium [Moles/volume] in Serum or Plasma 2023-07-09 21:47:39 136 mEq/L F 132.0-146.0 Sodium [Moles/volume] in Serum or Plasma 2023-05-24 14:55:33 137 mEq/L F 132.0-146.0 Sodium [Moles/volume] in Serum or Plasma 2023-05-02 19:10:49 139 mEq/L F 132.0-146.0 Sodium [Moles/volume] in Serum or Plasma 2023-03-26 15:00:13 140 mEq/L F 132.0-146.0 Sodium [Moles/volume] in Serum or Plasma 2023-03-26 15:00:13 140 mEq/L F 132.0-146.0 Sodium [Moles/volume] in Serum or Plasma 2023-02-23 17:11:17 141 mEq/L F 132.0-146.0 Sodium [Moles/volume] in Serum or Plasma 2023-01-25 23:12:14 136 mEq/L F 132.0-146.0 Sodium [Moles/volume] in Serum or Plasma 2023-01-01 13:54:14 143 mEq/L F 132.0-146.0 Sodium [Moles/volume] in Serum or Plasma 2022-12-02 00:54:48 140 mEq/L F 132.0-146.0 Sodium [Moles/volume] in Serum or Plasma 2022-11-07 03:39:53 142 mEq/L F 132.0-146.0 Sodium [Moles/volume] in Serum or Plasma 2022-11-07 03:39:53 142 mEq/L F 132.0-146.0 Sodium [Moles/volume] in Serum or Plasma 2022-11-07 03:39:53 142 mEq/L F 132.0-146.0 Sodium [Moles/volume] in Serum or Plasma 2022-11-07 03:39:53 142 mEq/L F 132.0-146.0 General Description Draw Date Result/Unit Status Ref Range Result Comments Alanine aminotransferase [Enzymatic activity/volume] in Serum or Plasma 2024-11-07 14:41:20 12 U/L F 10.0-49.0 Aspartate aminotransferase [Enzymatic activity/volume] in Serum or Plasma 2024-11-07 14:41:20 19 U/L F 0.0-33.0 Aspartate aminotransferase [Enzymatic activity/volume] in Serum or Plasma 2024-11-07 14:41:20 19 U/L F 0.0-33.0 Alanine aminotransferase [Enzymatic activity/volume] in Serum or Plasma 2024-11-07 14:41:20 12 U/L F 10.0-49.0 Alanine aminotransferase [Enzymatic activity/volume] in Serum or Plasma 2024-11-07 14:41:20 12 U/L F 10.0-49.0 Aspartate aminotransferase [Enzymatic activity/volume] in Serum or Plasma 2024-11-07 14:41:20 19 U/L F 0.0-33.0 Aspartate aminotransferase [Enzymatic activity/volume] in Serum or Plasma 2024-11-07 14:41:20 19 U/L F 0.0-33.0 Alanine aminotransferase [Enzymatic activity/volume] in Serum or Plasma 2024-11-07 14:41:20 12 U/L F 10.0-49.0 Aluminum [Mass/volume] in Serum or Plasma 2024-11-06 21:10:01 10 ug/L F 0.0-9.0 Aluminum [Mass/volume] in Serum or Plasma 2024-11-06 21:10:01 10 ug/L F 0.0-9.0 Aluminum [Mass/volume] in Serum or Plasma 2024-11-06 21:10:01 10 ug/L F 0.0-9.0 Aluminum [Mass/volume] in Serum or Plasma 2024-11-06 21:10:01 10 ug/L F 0.0-9.0 [facility] 2024-09-23 05:36:46 3.9 g/day F [facility] 2024-09-23 05:36:46 3.9 g/day F Aspartate aminotransferase [Enzymatic activity/volume] in Serum or Plasma 2024-09-23 01:40:16 23 U/L F 0.0-33.0 Alanine aminotransferase [Enzymatic activity/volume] in Serum or Plasma 2024-09-23 01:40:16 16 U/L F 10.0-49.0 Aspartate aminotransferase [Enzymatic activity/volume] in Serum or Plasma 2024-09-23 01:40:16 23 U/L F 0.0-33.0 Alanine aminotransferase [Enzymatic activity/volume] in Serum or Plasma 2024-09-23 01:40:16 16 U/L F 10.0-49.0 Aspartate aminotransferase [Enzymatic activity/volume] in Serum or Plasma 2024-08-26 21:21:14 19 U/L F 0.0-33.0 Alanine aminotransferase [Enzymatic activity/volume] in Serum or Plasma 2024-08-26 21:21:14 15 U/L F 10.0-49.0 Aspartate aminotransferase [Enzymatic activity/volume] in Serum or Plasma 2024-07-29 00:57:25 21 U/L F 0.0-33.0 Alanine aminotransferase [Enzymatic activity/volume] in Serum or Plasma 2024-07-29 00:57:25 14 U/L F 10.0-49.0 [facility] 2024-06-30 19:47:26 4.2 g/day F [facility] 2024-06-30 19:47:26 4.2 g/day F [facility] 2024-06-30 19:47:26 4.2 g/day F Aspartate aminotransferase [Enzymatic activity/volume] in Serum or Plasma 2024-06-30 17:31:20 17 U/L F 0.0-33.0 Alanine aminotransferase [Enzymatic activity/volume] in Serum or Plasma 2024-06-30 17:31:20 10 U/L F 10.0-49.0 Aspartate aminotransferase [Enzymatic activity/volume] in Serum or Plasma 2024-06-30 17:31:20 17 U/L F 0.0-33.0 Alanine aminotransferase [Enzymatic activity/volume] in Serum or Plasma 2024-06-30 17:31:20 10 U/L F 10.0-49.0 Alanine aminotransferase [Enzymatic activity/volume] in Serum or Plasma 2024-06-30 17:31:20 10 U/L F 10.0-49.0 Aspartate aminotransferase [Enzymatic activity/volume] in Serum or Plasma 2024-06-30 17:31:20 17 U/L F 0.0-33.0 Alanine aminotransferase [Enzymatic activity/volume] in Serum or Plasma 2024-06-05 00:49:05 9 U/L F 10.0-49.0 Alanine aminotransferase [Enzymatic activity/volume] in Serum or Plasma 2024-06-05 00:49:05 9 U/L F 10.0-49.0 Aspartate aminotransferase [Enzymatic activity/volume] in Serum or Plasma 2024-06-05 00:48:05 F Recollect - Hemolyzed specimen Aspartate aminotransferase [Enzymatic activity/volume] in Serum or Plasma 2024-06-05 00:48:05 F Recollect - Hemolyzed specimen Alanine aminotransferase [Enzymatic activity/volume] in Serum or Plasma 2024-04-30 23:32:39 38 U/L F 10.0-49.0 Alanine aminotransferase [Enzymatic activity/volume] in Serum or Plasma 2024-04-30 23:32:39 38 U/L F 10.0-49.0 Alanine aminotransferase [Enzymatic activity/volume] in Serum or Plasma 2024-04-30 23:32:39 38 U/L F 10.0-49.0 Aspartate aminotransferase [Enzymatic activity/volume] in Serum or Plasma 2024-04-30 23:32:18 F Recollect - Hemolyzed specimen Aspartate aminotransferase [Enzymatic activity/volume] in Serum or Plasma 2024-04-30 23:32:18 F Recollect - Hemolyzed specimen Aspartate aminotransferase [Enzymatic activity/volume] in Serum or Plasma 2024-04-30 23:32:18 F Recollect - Hemolyzed specimen [facility] 2024-03-26 03:17:30 4.2 g/day F [facility] 2024-03-26 03:17:30 4.2 g/day F Aspartate aminotransferase [Enzymatic activity/volume] in Serum or Plasma 2024-03-25 17:19:38 17 U/L F 0.0-33.0 Alanine aminotransferase [Enzymatic activity/volume] in Serum or Plasma 2024-03-25 17:19:38 12 U/L F 10.0-49.0 Alanine aminotransferase [Enzymatic activity/volume] in Serum or Plasma 2024-03-25 17:19:38 12 U/L F 10.0-49.0 Aspartate aminotransferase [Enzymatic activity/volume] in Serum or Plasma 2024-03-25 17:19:38 17 U/L F 0.0-33.0 Aspartate aminotransferase [Enzymatic activity/volume] in Serum or Plasma 2024-02-25 17:38:35 14 U/L F 0.0-33.0 Alanine aminotransferase [Enzymatic activity/volume] in Serum or Plasma 2024-02-25 17:38:35 14 U/L F 10.0-49.0 Aspartate aminotransferase [Enzymatic activity/volume] in Serum or Plasma 2024-01-24 16:30:47 17 U/L F 0.0-33.0 Alanine aminotransferase [Enzymatic activity/volume] in Serum or Plasma 2024-01-24 16:30:47 16 U/L F 10.0-49.0 Aspartate aminotransferase [Enzymatic activity/volume] in Serum or Plasma 2024-01-24 16:30:47 17 U/L F 0.0-33.0 Alanine aminotransferase [Enzymatic activity/volume] in Serum or Plasma 2024-01-24 16:30:47 16 U/L F 10.0-49.0 Alanine aminotransferase [Enzymatic activity/volume] in Serum or Plasma 2024-01-24 16:30:47 16 U/L F 10.0-49.0 Aspartate aminotransferase [Enzymatic activity/volume] in Serum or Plasma 2024-01-24 16:30:47 17 U/L F 0.0-33.0 [facility] 2024-01-01 16:44:13 4 g/day K [facility] 2024-01-01 16:44:13 4 g/day K [facility] 2024-01-01 16:44:13 4 g/day K Aspartate aminotransferase [Enzymatic activity/volume] in Serum or Plasma 2023-12-31 15:56:18 27 U/L F 0.0-33.0 Aspartate aminotransferase [Enzymatic activity/volume] in Serum or Plasma 2023-12-31 15:56:18 27 U/L F 0.0-33.0 Aspartate aminotransferase [Enzymatic activity/volume] in Serum or Plasma 2023-12-31 15:56:18 27 U/L F 0.0-33.0 Alanine aminotransferase [Enzymatic activity/volume] in Serum or Plasma 2023-12-31 15:56:16 18 U/L F 10.0-49.0 Alanine aminotransferase [Enzymatic activity/volume] in Serum or Plasma 2023-12-31 15:56:16 18 U/L F 10.0-49.0 Alanine aminotransferase [Enzymatic activity/volume] in Serum or Plasma 2023-12-31 15:56:16 18 U/L F 10.0-49.0 Aspartate aminotransferase [Enzymatic activity/volume] in Serum or Plasma 2023-11-30 16:06:45 19 U/L F 0.0-33.0 Alanine aminotransferase [Enzymatic activity/volume] in Serum or Plasma 2023-11-30 16:06:45 17 U/L F 10.0-49.0 Aspartate aminotransferase [Enzymatic activity/volume] in Serum or Plasma 2023-11-30 16:06:45 19 U/L F 0.0-33.0 Alanine aminotransferase [Enzymatic activity/volume] in Serum or Plasma 2023-11-30 16:06:45 17 U/L F 10.0-49.0 Aluminum [Mass/volume] in Serum or Plasma 2023-11-02 14:18:15 10 ug/L F 0.0-9.0 Aspartate aminotransferase [Enzymatic activity/volume] in Serum or Plasma 2023-11-02 02:56:28 20 U/L F 0.0-33.0 Alanine aminotransferase [Enzymatic activity/volume] in Serum or Plasma 2023-11-02 02:56:28 15 U/L F 10.0-49.0 Aspartate aminotransferase [Enzymatic activity/volume] in Serum or Plasma 2023-08-31 16:42:29 26 U/L F 0.0-33.0 Alanine aminotransferase [Enzymatic activity/volume] in Serum or Plasma 2023-08-31 16:42:29 17 U/L F 10.0-49.0 Aspartate aminotransferase [Enzymatic activity/volume] in Serum or Plasma 2023-07-23 19:32:35 21 U/L F 0.0-33.0 Alanine aminotransferase [Enzymatic activity/volume] in Serum or Plasma 2023-07-23 19:32:35 22 U/L F 10.0-49.0 Aspartate aminotransferase [Enzymatic activity/volume] in Serum or Plasma 2023-07-09 21:47:39 24 U/L F 0.0-33.0 Alanine aminotransferase [Enzymatic activity/volume] in Serum or Plasma 2023-07-09 21:47:39 16 U/L F 10.0-49.0 Alanine aminotransferase [Enzymatic activity/volume] in Serum or Plasma 2023-07-09 21:47:39 16 U/L F 10.0-49.0 Aspartate aminotransferase [Enzymatic activity/volume] in Serum or Plasma 2023-07-09 21:47:39 24 U/L F 0.0-33.0 [facility] 2023-07-09 17:34:49 3.3 g/day F [facility] 2023-07-09 17:34:49 3.3 g/day F Aspartate aminotransferase [Enzymatic activity/volume] in Serum or Plasma 2023-05-24 14:55:33 22 U/L F 0.0-33.0 Alanine aminotransferase [Enzymatic activity/volume] in Serum or Plasma 2023-05-24 14:55:33 18 U/L F 10.0-49.0 Aspartate aminotransferase [Enzymatic activity/volume] in Serum or Plasma 2023-05-02 19:10:49 26 U/L F 0.0-33.0 Alanine aminotransferase [Enzymatic activity/volume] in Serum or Plasma 2023-05-02 19:10:49 21 U/L F 10.0-49.0 [facility] 2023-03-27 04:06:09 3.3 g/day F [facility] 2023-03-27 04:06:09 3.3 g/day F Aspartate aminotransferase [Enzymatic activity/volume] in Serum or Plasma 2023-03-26 15:00:13 22 U/L F 0.0-33.0 Alanine aminotransferase [Enzymatic activity/volume] in Serum or Plasma 2023-03-26 15:00:13 19 U/L F 10.0-49.0 Alanine aminotransferase [Enzymatic activity/volume] in Serum or Plasma 2023-03-26 15:00:13 19 U/L F 10.0-49.0 Aspartate aminotransferase [Enzymatic activity/volume] in Serum or Plasma 2023-03-26 15:00:13 22 U/L F 0.0-33.0 Aspartate aminotransferase [Enzymatic activity/volume] in Serum or Plasma 2023-02-23 17:11:17 22 U/L F 0.0-33.0 Alanine aminotransferase [Enzymatic activity/volume] in Serum or Plasma 2023-02-23 17:11:17 28 U/L F 10.0-49.0 Aspartate aminotransferase [Enzymatic activity/volume] in Serum or Plasma 2023-01-25 23:12:16 28 U/L F 0.0-33.0 Alanine aminotransferase [Enzymatic activity/volume] in Serum or Plasma 2023-01-25 23:12:16 25 U/L F 10.0-49.0 [facility] 2023-01-01 14:49:50 4.5 g/day F Aspartate aminotransferase [Enzymatic activity/volume] in Serum or Plasma 2023-01-01 13:54:14 21 U/L F 0.0-33.0 Alanine aminotransferase [Enzymatic activity/volume] in Serum or Plasma 2023-01-01 13:54:14 19 U/L F 10.0-49.0 VOLUME INFUSED 4 HR 2022-12-31 18:40:34 2000 mL F INFUSION TIME 4 HR 2022-12-31 18:40:34 8 min F Aspartate aminotransferase [Enzymatic activity/volume] in Serum or Plasma 2022-12-02 00:54:48 22 U/L F 0.0-33.0 Alanine aminotransferase [Enzymatic activity/volume] in Serum or Plasma 2022-12-02 00:54:48 20 U/L F 10.0-49.0 Aluminum [Mass/volume] in Serum or Plasma 2022-11-07 15:11:51 10 ug/L F 0.0-9.0 Aluminum [Mass/volume] in Serum or Plasma 2022-11-07 15:11:51 10 ug/L F 0.0-9.0 Aluminum [Mass/volume] in Serum or Plasma 2022-11-07 15:11:51 10 ug/L F 0.0-9.0 Aluminum [Mass/volume] in Serum or Plasma 2022-11-07 15:11:51 10 ug/L F 0.0-9.0 Aspartate aminotransferase [Enzymatic activity/volume] in Serum or Plasma 2022-11-07 03:39:53 27 U/L F 0.0-33.0 Alanine aminotransferase [Enzymatic activity/volume] in Serum or Plasma 2022-11-07 03:39:53 21 U/L F 10.0-49.0 Aspartate aminotransferase [Enzymatic activity/volume] in Serum or Plasma 2022-11-07 03:39:53 27 U/L F 0.0-33.0 Alanine aminotransferase [Enzymatic activity/volume] in Serum or Plasma 2022-11-07 03:39:53 21 U/L F 10.0-49.0 Alanine aminotransferase [Enzymatic activity/volume] in Serum or Plasma 2022-11-07 03:39:53 21 U/L F 10.0-49.0 Aspartate aminotransferase [Enzymatic activity/volume] in Serum or Plasma 2022-11-07 03:39:53 27 U/L F 0.0-33.0 Aspartate aminotransferase [Enzymatic activity/volume] in Serum or Plasma 2022-11-07 03:39:53 27 U/L F 0.0-33.0 Alanine aminotransferase [Enzymatic activity/volume] in Serum or Plasma 2022-11-07 03:39:53 21 U/L F 10.0-49.0 InfectionVaccination Description Draw Date Result/Unit Status Ref Range Result Comments TNC (Total Nucleated Count) - Body Fluid 2024-11-25 18:24:27 32 Cell/uL F NEUTROPHILS-BFL 2024-11-25 18:24:27 6 % F LYMPHOCYTES - BODY FLUID 2024-11-25 18:24:27 9 % F APPEARANCE - BODY FLUID 2024-11-25 18:24:27 Clear F UNCLASSIFIED CELL 2024-11-25 18:24:27 0 % F MESOTHELIAL CELLS - BFL 2024-11-25 18:24:27 22 % F COLOR - BODY FLUID 2024-11-25 18:24:27 Colorless F RBC COUNT - BODY FLUID 2024-11-25 18:24:27 [id number] Cell/uL F Monocytes - Body Fluid 2024-11-25 18:24:27 62 % F EOSINOPHILS - BODY FLUID 2024-11-25 18:24:27 1 % F FLUID TYPE 2024-11-24 19:52:43 Peritoneal F Neutrophils [#/volume] in Blood by Automated count 2024-11-07 06:55:12 4945 Cells/uL F 2000.0-8800. 0 Lymphocytes/100 leukocytes in Blood by Automated count 2024-11-07 06:55:12 8.4 % F Eosinophils/100 leukocytes in Blood by Automated count 2024-11-07 06:55:12 2.7 % F Basophils [#/volume] in Blood by Automated count 2024-11-07 06:55:12 29 Cells/uL F 0.0-400.0 Monocytes/100 leukocytes in Blood by Automated count 2024-11-07 06:55:12 2.6 % F Monocytes [#/volume] in Blood by Automated count 2024-11-07 06:55:12 150 Cells/uL F 0.0-1100.0 Lymphocytes [#/volume] in Blood by Automated count 2024-11-07 06:55:12 485 Cells/uL F 620.0-3660.0 Leukocytes [#/volume] in Blood by Automated count 2024-11-07 06:55:12 5.8 x 10^3 cells/uL F 4.0-11.0 Eosinophils [#/volume] in Blood by Automated count 2024-11-07 06:55:12 156 Cells/uL F 0.0-700.0 Basophils/100 leukocytes in Blood by Automated count 2024-11-07 06:55:12 0.5 % F Neutrophils/100 leukocytes in Blood by Automated count 2024-11-07 06:55:12 85.7 % F Monocytes/100 leukocytes in Blood by Automated count 2024-11-07 06:55:12 2.6 % F Eosinophils/100 leukocytes in Blood by Automated count 2024-11-07 06:55:12 2.7 % F Neutrophils/100 leukocytes in Blood by Automated count 2024-11-07 06:55:12 85.7 % F Basophils/100 leukocytes in Blood by Automated count 2024-11-07 06:55:12 0.5 % F Lymphocytes/100 leukocytes in Blood by Automated count 2024-11-07 06:55:12 8.4 % F Leukocytes [#/volume] in Blood by Automated count 2024-11-07 06:55:12 5.8 x 10^3 cells/uL F 4.0-11.0 Eosinophils [#/volume] in Blood by Automated count 2024-11-07 06:55:12 156 Cells/uL F 0.0-700.0 Basophils [#/volume] in Blood by Automated count 2024-11-07 06:55:12 29 Cells/uL F 0.0-400.0 Monocytes [#/volume] in Blood by Automated count 2024-11-07 06:55:12 150 Cells/uL F 0.0-1100.0 Lymphocytes [#/volume] in Blood by Automated count 2024-11-07 06:55:12 485 Cells/uL F 620.0-3660.0 Neutrophils [#/volume] in Blood by Automated count 2024-11-07 06:55:12 4945 Cells/uL F 2000.0-8800. 0 Basophils/100 leukocytes in Blood by Automated count 2024-11-07 06:55:12 0.5 % F Eosinophils/100 leukocytes in Blood by Automated count 2024-11-07 06:55:12 2.7 % F Leukocytes [#/volume] in Blood by Automated count 2024-11-07 06:55:12 5.8 x 10^3 cells/uL F 4.0-11.0 Lymphocytes [#/volume] in Blood by Automated count 2024-11-07 06:55:12 485 Cells/uL F 620.0-3660.0 Basophils [#/volume] in Blood by Automated count 2024-11-07 06:55:12 29 Cells/uL F 0.0-400.0 Neutrophils/100 leukocytes in Blood by Automated count 2024-11-07 06:55:12 85.7 % F Lymphocytes/100 leukocytes in Blood by Automated count 2024-11-07 06:55:12 8.4 % F Monocytes/100 leukocytes in Blood by Automated count 2024-11-07 06:55:12 2.6 % F Neutrophils [#/volume] in Blood by Automated count 2024-11-07 06:55:12 4945 Cells/uL F 2000.0-8800. 0 Monocytes [#/volume] in Blood by Automated count 2024-11-07 06:55:12 150 Cells/uL F 0.0-1100.0 Eosinophils [#/volume] in Blood by Automated count 2024-11-07 06:55:12 156 Cells/uL F 0.0-700.0 Eosinophils/100 leukocytes in Blood by Automated count 2024-11-07 06:55:12 2.7 % F Basophils/100 leukocytes in Blood by Automated count 2024-11-07 06:55:12 0.5 % F Neutrophils/100 leukocytes in Blood by Automated count 2024-11-07 06:55:12 85.7 % F Lymphocytes/100 leukocytes in Blood by Automated count 2024-11-07 06:55:12 8.4 % F Monocytes/100 leukocytes in Blood by Automated count 2024-11-07 06:55:12 2.6 % F Leukocytes [#/volume] in Blood by Automated count 2024-11-07 06:55:12 5.8 x 10^3 cells/uL F 4.0-11.0 Eosinophils [#/volume] in Blood by Automated count 2024-11-07 06:55:12 156 Cells/uL F 0.0-700.0 Basophils [#/volume] in Blood by Automated count 2024-11-07 06:55:12 29 Cells/uL F 0.0-400.0 Monocytes [#/volume] in Blood by Automated count 2024-11-07 06:55:12 150 Cells/uL F 0.0-1100.0 Lymphocytes [#/volume] in Blood by Automated count 2024-11-07 06:55:12 485 Cells/uL F 620.0-3660.0 Neutrophils [#/volume] in Blood by Automated count 2024-11-07 06:55:12 4945 Cells/uL F 2000.0-8800. 0 Lymphocytes/100 leukocytes in Blood by Automated count 2024-09-23 02:40:20 10.9 % F Basophils/100 leukocytes in Blood by Automated count 2024-09-23 02:40:20 0.2 % F Neutrophils/100 leukocytes in Blood by Automated count 2024-09-23 02:40:20 80.8 % F Eosinophils/100 leukocytes in Blood by Automated count 2024-09-23 02:40:20 4 % F Monocytes/100 leukocytes in Blood by Automated count 2024-09-23 02:40:20 4.1 % F Leukocytes [#/volume] in Blood by Automated count 2024-09-23 02:40:20 6.2 x 10^3 cells/uL F 4.0-11.0 Basophils [#/volume] in Blood by Automated count 2024-09-23 02:40:20 12 Cells/uL F 0.0-400.0 Eosinophils [#/volume] in Blood by Automated count 2024-09-23 02:40:20 248 Cells/uL F 0.0-700.0 Monocytes [#/volume] in Blood by Automated count 2024-09-23 02:40:20 254 Cells/uL F 0.0-1100.0 Lymphocytes [#/volume] in Blood by Automated count 2024-09-23 02:40:20 675 Cells/uL F 620.0-3660.0 Neutrophils [#/volume] in Blood by Automated count 2024-09-23 02:40:20 5002 Cells/uL F 2000.0-8800. 0 Neutrophils/100 leukocytes in Blood by Automated count 2024-09-23 02:40:20 80.8 % F Eosinophils/100 leukocytes in Blood by Automated count 2024-09-23 02:40:20 4 % F Basophils/100 leukocytes in Blood by Automated count 2024-09-23 02:40:20 0.2 % F Lymphocytes/100 leukocytes in Blood by Automated count 2024-09-23 02:40:20 10.9 % F Monocytes/100 leukocytes in Blood by Automated count 2024-09-23 02:40:20 4.1 % F Leukocytes [#/volume] in Blood by Automated count 2024-09-23 02:40:20 6.2 x 10^3 cells/uL F 4.0-11.0 Basophils [#/volume] in Blood by Automated count 2024-09-23 02:40:20 12 Cells/uL F 0.0-400.0 Eosinophils [#/volume] in Blood by Automated count 2024-09-23 02:40:20 248 Cells/uL F 0.0-700.0 Monocytes [#/volume] in Blood by Automated count 2024-09-23 02:40:20 254 Cells/uL F 0.0-1100.0 Neutrophils [#/volume] in Blood by Automated count 2024-09-23 02:40:20 5002 Cells/uL F 2000.0-8800. 0 Lymphocytes [#/volume] in Blood by Automated count 2024-09-23 02:40:20 675 Cells/uL F 620.0-3660.0 Eosinophils/100 leukocytes in Blood by Automated count 2024-08-27 07:45:14 4.5 % F Lymphocytes/100 leukocytes in Blood by Automated count 2024-08-27 07:45:14 11.1 % F Monocytes/100 leukocytes in Blood by Automated count 2024-08-27 07:45:14 3.1 % F Basophils/100 leukocytes in Blood by Automated count 2024-08-27 07:45:14 0.7 % F Neutrophils/100 leukocytes in Blood by Automated count 2024-08-27 07:45:14 80.5 % F Leukocytes [#/volume] in Blood by Automated count 2024-08-27 07:45:14 5.5 x 10^3 cells/uL F 4.0-11.0 Basophils [#/volume] in Blood by Automated count 2024-08-27 07:45:14 39 Cells/uL F 0.0-400.0 Eosinophils [#/volume] in Blood by Automated count 2024-08-27 07:45:14 249 Cells/uL F 0.0-700.0 Monocytes [#/volume] in Blood by Automated count 2024-08-27 07:45:14 172 Cells/uL F 0.0-1100.0 Lymphocytes [#/volume] in Blood by Automated count 2024-08-27 07:45:14 615 Cells/uL F 620.0-3660.0 Neutrophils [#/volume] in Blood by Automated count 2024-08-27 07:45:14 4460 Cells/uL F 2000.0-8800. 0 Eosinophils/100 leukocytes in Blood by Automated count 2024-07-28 18:30:09 3.5 % F Lymphocytes/100 leukocytes in Blood by Automated count 2024-07-28 18:30:09 8.6 % F Monocytes/100 leukocytes in Blood by Automated count 2024-07-28 18:30:09 4.1 % F Basophils/100 leukocytes in Blood by Automated count 2024-07-28 18:30:09 1.5 % F Neutrophils/100 leukocytes in Blood by Automated count 2024-07-28 18:30:09 82.4 % F Leukocytes [#/volume] in Blood by Automated count 2024-07-28 18:30:09 5.9 x 10^3 cells/uL F 4.0-11.0 Eosinophils [#/volume] in Blood by Automated count 2024-07-28 18:30:09 205 Cell/uL F 0.0-700.0 Basophils [#/volume] in Blood by Automated count 2024-07-28 18:30:09 88 Cell/uL F 0.0-400.0 Monocytes [#/volume] in Blood by Automated count 2024-07-28 18:30:09 240 Cell/uL F 0.0-1100.0 Lymphocytes [#/volume] in Blood by Automated count 2024-07-28 18:30:09 504 Cell/uL F 620.0-3660.0 Neutrophils [#/volume] in Blood by Automated count 2024-07-28 18:30:09 4829 Cell/uL F 2000.0-8800. 0 Lymphocytes/100 leukocytes in Blood by Automated count 2024-06-30 19:50:22 8.9 % F Monocytes/100 leukocytes in Blood by Automated count 2024-06-30 19:50:22 4.6 % F Lymphocytes [#/volume] in Blood by Automated count 2024-06-30 19:50:22 709 Cell/uL F 620.0-3660.0 Neutrophils [#/volume] in Blood by Automated count 2024-06-30 19:50:22 6663 Cell/uL F 2000.0-8800. 0 Monocytes/100 leukocytes in Blood by Automated count 2024-06-30 19:50:22 4.6 % F Lymphocytes/100 leukocytes in Blood by Automated count 2024-06-30 19:50:22 8.9 % F Lymphocytes [#/volume] in Blood by Automated count 2024-06-30 19:50:22 709 Cell/uL F 620.0-3660.0 Neutrophils [#/volume] in Blood by Automated count 2024-06-30 19:50:22 6663 Cell/uL F 2000.0-8800. 0 Monocytes/100 leukocytes in Blood by Automated count 2024-06-30 19:50:22 4.6 % F Lymphocytes/100 leukocytes in Blood by Automated count 2024-06-30 19:50:22 8.9 % F Lymphocytes [#/volume] in Blood by Automated count 2024-06-30 19:50:22 709 Cell/uL F 620.0-3660.0 Neutrophils [#/volume] in Blood by Automated count 2024-06-30 19:50:22 6663 Cell/uL F 2000.0-8800. 0 Neutrophils/100 leukocytes in Blood by Automated count 2024-06-30 19:50:20 83.6 % F Basophils/100 leukocytes in Blood by Automated count 2024-06-30 19:50:20 0.4 % F Eosinophils/100 leukocytes in Blood by Automated count 2024-06-30 19:50:20 2.5 % F Leukocytes [#/volume] in Blood by Automated count 2024-06-30 19:50:20 8 x 10^3 cells/uL F 4.0-11.0 Eosinophils [#/volume] in Blood by Automated count 2024-06-30 19:50:20 199 Cell/uL F 0.0-700.0 Basophils [#/volume] in Blood by Automated count 2024-06-30 19:50:20 32 Cell/uL F 0.0-400.0 Monocytes [#/volume] in Blood by Automated count 2024-06-30 19:50:20 367 Cell/uL F 0.0-1100.0 Basophils/100 leukocytes in Blood by Automated count 2024-06-30 19:50:20 0.4 % F Eosinophils/100 leukocytes in Blood by Automated count 2024-06-30 19:50:20 2.5 % F Neutrophils/100 leukocytes in Blood by Automated count 2024-06-30 19:50:20 83.6 % F Leukocytes [#/volume] in Blood by Automated count 2024-06-30 19:50:20 8 x 10^3 cells/uL F 4.0-11.0 Basophils [#/volume] in Blood by Automated count 2024-06-30 19:50:20 32 Cell/uL F 0.0-400.0 Eosinophils [#/volume] in Blood by Automated count 2024-06-30 19:50:20 199 Cell/uL F 0.0-700.0 Monocytes [#/volume] in Blood by Automated count 2024-06-30 19:50:20 367 Cell/uL F 0.0-1100.0 Basophils/100 leukocytes in Blood by Automated count 2024-06-30 19:50:20 0.4 % F Eosinophils/100 leukocytes in Blood by Automated count 2024-06-30 19:50:20 2.5 % F Eosinophils [#/volume] in Blood by Automated count 2024-06-30 19:50:20 199 Cell/uL F 0.0-700.0 Basophils [#/volume] in Blood by Automated count 2024-06-30 19:50:20 32 Cell/uL F 0.0-400.0 Neutrophils/100 leukocytes in Blood by Automated count 2024-06-30 19:50:20 83.6 % F Leukocytes [#/volume] in Blood by Automated count 2024-06-30 19:50:20 8 x 10^3 cells/uL F 4.0-11.0 Monocytes [#/volume] in Blood by Automated count 2024-06-30 19:50:20 367 Cell/uL F 0.0-1100.0 Neutrophils/100 leukocytes in Blood by Automated count 2024-06-05 02:59:18 83.3 % F Eosinophils/100 leukocytes in Blood by Automated count 2024-06-05 02:59:18 2.6 % F Basophils/100 leukocytes in Blood by Automated count 2024-06-05 02:59:18 0.7 % F Monocytes/100 leukocytes in Blood by Automated count 2024-06-05 02:59:18 4.4 % F Lymphocytes/100 leukocytes in Blood by Automated count 2024-06-05 02:59:18 8.9 % F Leukocytes [#/volume] in Blood by Automated count 2024-06-05 02:59:18 7.8 x 10^3 cells/uL F 4.0-11.0 Basophils [#/volume] in Blood by Automated count 2024-06-05 02:59:18 55 Cell/uL F 0.0-400.0 Eosinophils [#/volume] in Blood by Automated count 2024-06-05 02:59:18 204 Cell/uL F 0.0-700.0 Monocytes [#/volume] in Blood by Automated count 2024-06-05 02:59:18 345 Cell/uL F 0.0-1100.0 Lymphocytes [#/volume] in Blood by Automated count 2024-06-05 02:59:18 699 Cell/uL F 620.0-3660.0 Neutrophils [#/volume] in Blood by Automated count 2024-06-05 02:59:18 6539 Cell/uL F 2000.0-8800. 0 Eosinophils/100 leukocytes in Blood by Automated count 2024-06-05 02:59:18 2.6 % F Leukocytes [#/volume] in Blood by Automated count 2024-06-05 02:59:18 7.8 x 10^3 cells/uL F 4.0-11.0 Neutrophils [#/volume] in Blood by Automated count 2024-06-05 02:59:18 6539 Cell/uL F 2000.0-8800. 0 Eosinophils [#/volume] in Blood by Automated count 2024-06-05 02:59:18 204 Cell/uL F 0.0-700.0 Lymphocytes [#/volume] in Blood by Automated count 2024-06-05 02:59:18 699 Cell/uL F 620.0-3660.0 Basophils/100 leukocytes in Blood by Automated count 2024-06-05 02:59:18 0.7 % F Neutrophils/100 leukocytes in Blood by Automated count 2024-06-05 02:59:18 83.3 % F Lymphocytes/100 leukocytes in Blood by Automated count 2024-06-05 02:59:18 8.9 % F Monocytes/100 leukocytes in Blood by Automated count 2024-06-05 02:59:18 4.4 % F Monocytes [#/volume] in Blood by Automated count 2024-06-05 02:59:18 345 Cell/uL F 0.0-1100.0 Basophils [#/volume] in Blood by Automated count 2024-06-05 02:59:18 55 Cell/uL F 0.0-400.0 Monocytes/100 leukocytes in Blood by Automated count 2024-05-01 07:12:34 3.4 % F Basophils/100 leukocytes in Blood by Automated count 2024-05-01 07:12:34 0.6 % F Lymphocytes/100 leukocytes in Blood by Automated count 2024-05-01 07:12:34 9.6 % F Eosinophils/100 leukocytes in Blood by Automated count 2024-05-01 07:12:34 3.1 % F Neutrophils/100 leukocytes in Blood by Automated count 2024-05-01 07:12:34 83.3 % F Leukocytes [#/volume] in Blood by Automated count 2024-05-01 07:12:34 5.4 x 10^3 cells/uL F 4.0-11.0 Basophils [#/volume] in Blood by Automated count 2024-05-01 07:12:34 33 Cell/uL F 0.0-400.0 Eosinophils [#/volume] in Blood by Automated count 2024-05-01 07:12:34 169 Cell/uL F 0.0-700.0 Monocytes [#/volume] in Blood by Automated count 2024-05-01 07:12:34 185 Cell/uL F 0.0-1100.0 Lymphocytes [#/volume] in Blood by Automated count 2024-05-01 07:12:34 523 Cell/uL F 620.0-3660.0 Neutrophils [#/volume] in Blood by Automated count 2024-05-01 07:12:34 4540 Cell/uL F 2000.0-8800. 0 Monocytes/100 leukocytes in Blood by Automated count 2024-05-01 07:12:34 3.4 % F Neutrophils/100 leukocytes in Blood by Automated count 2024-05-01 07:12:34 83.3 % F Lymphocytes/100 leukocytes in Blood by Automated count 2024-05-01 07:12:34 9.6 % F Eosinophils/100 leukocytes in Blood by Automated count 2024-05-01 07:12:34 3.1 % F Basophils/100 leukocytes in Blood by Automated count 2024-05-01 07:12:34 0.6 % F Leukocytes [#/volume] in Blood by Automated count 2024-05-01 07:12:34 5.4 x 10^3 cells/uL F 4.0-11.0 Basophils [#/volume] in Blood by Automated count 2024-05-01 07:12:34 33 Cell/uL F 0.0-400.0 Eosinophils [#/volume] in Blood by Automated count 2024-05-01 07:12:34 169 Cell/uL F 0.0-700.0 Monocytes [#/volume] in Blood by Automated count 2024-05-01 07:12:34 185 Cell/uL F 0.0-1100.0 Lymphocytes [#/volume] in Blood by Automated count 2024-05-01 07:12:34 523 Cell/uL F 620.0-3660.0 Neutrophils [#/volume] in Blood by Automated count 2024-05-01 07:12:34 4540 Cell/uL F 2000.0-8800. 0 Neutrophils/100 leukocytes in Blood by Automated count 2024-05-01 07:12:34 83.3 % F Lymphocytes/100 leukocytes in Blood by Automated count 2024-05-01 07:12:34 9.6 % F Eosinophils/100 leukocytes in Blood by Automated count 2024-05-01 07:12:34 3.1 % F Leukocytes [#/volume] in Blood by Automated count 2024-05-01 07:12:34 5.4 x 10^3 cells/uL F 4.0-11.0 Neutrophils [#/volume] in Blood by Automated count 2024-05-01 07:12:34 4540 Cell/uL F 2000.0-8800. 0 Monocytes [#/volume] in Blood by Automated count 2024-05-01 07:12:34 185 Cell/uL F 0.0-1100.0 Basophils [#/volume] in Blood by Automated count 2024-05-01 07:12:34 33 Cell/uL F 0.0-400.0 Lymphocytes [#/volume] in Blood by Automated count 2024-05-01 07:12:34 523 Cell/uL F 620.0-3660.0 Monocytes/100 leukocytes in Blood by Automated count 2024-05-01 07:12:34 3.4 % F Basophils/100 leukocytes in Blood by Automated count 2024-05-01 07:12:34 0.6 % F Eosinophils [#/volume] in Blood by Automated count 2024-05-01 07:12:34 169 Cell/uL F 0.0-700.0 Lymphocytes/100 leukocytes in Blood by Automated count 2024-03-26 05:41:25 8.5 % F Eosinophils/100 leukocytes in Blood by Automated count 2024-03-26 05:41:25 3.5 % F Neutrophils/100 leukocytes in Blood by Automated count 2024-03-26 05:41:25 83.9 % F Basophils/100 leukocytes in Blood by Automated count 2024-03-26 05:41:25 1 % F Monocytes/100 leukocytes in Blood by Automated count 2024-03-26 05:41:25 3.2 % F Leukocytes [#/volume] in Blood by Automated count 2024-03-26 05:41:25 5.5 x 10^3 cells/uL F 4.0-11.0 Basophils [#/volume] in Blood by Automated count 2024-03-26 05:41:25 55 Cell/uL F 0.0-400.0 Eosinophils [#/volume] in Blood by Automated count 2024-03-26 05:41:25 194 Cell/uL F 0.0-700.0 Monocytes [#/volume] in Blood by Automated count 2024-03-26 05:41:25 177 Cell/uL F 0.0-1100.0 Neutrophils [#/volume] in Blood by Automated count 2024-03-26 05:41:25 4640 Cell/uL F 2000.0-8800. 0 Lymphocytes [#/volume] in Blood by Automated count 2024-03-26 05:41:25 470 Cell/uL F 620.0-3660.0 Basophils/100 leukocytes in Blood by Automated count 2024-03-26 05:41:25 1 % F Neutrophils/100 leukocytes in Blood by Automated count 2024-03-26 05:41:25 83.9 % F Lymphocytes/100 leukocytes in Blood by Automated count 2024-03-26 05:41:25 8.5 % F Eosinophils/100 leukocytes in Blood by Automated count 2024-03-26 05:41:25 3.5 % F Monocytes [#/volume] in Blood by Automated count 2024-03-26 05:41:25 177 Cell/uL F 0.0-1100.0 Leukocytes [#/volume] in Blood by Automated count 2024-03-26 05:41:25 5.5 x 10^3 cells/uL F 4.0-11.0 Monocytes/100 leukocytes in Blood by Automated count 2024-03-26 05:41:25 3.2 % F Neutrophils [#/volume] in Blood by Automated count 2024-03-26 05:41:25 4640 Cell/uL F 2000.0-8800. 0 Lymphocytes [#/volume] in Blood by Automated count 2024-03-26 05:41:25 470 Cell/uL F 620.0-3660.0 Basophils [#/volume] in Blood by Automated count 2024-03-26 05:41:25 55 Cell/uL F 0.0-400.0 Eosinophils [#/volume] in Blood by Automated count 2024-03-26 05:41:25 194 Cell/uL F 0.0-700.0 Monocytes/100 leukocytes in Blood by Automated count 2024-02-26 04:01:37 3.3 % F Basophils/100 leukocytes in Blood by Automated count 2024-02-26 04:01:37 0.3 % F Lymphocytes/100 leukocytes in Blood by Automated count 2024-02-26 04:01:37 5.8 % F Neutrophils/100 leukocytes in Blood by Automated count 2024-02-26 04:01:37 89 % F Eosinophils/100 leukocytes in Blood by Automated count 2024-02-26 04:01:37 1.6 % F Leukocytes [#/volume] in Blood by Automated count 2024-02-26 04:01:37 9.1 x 10^3 cells/uL F 4.0-11.0 Basophils [#/volume] in Blood by Automated count 2024-02-26 04:01:37 27 Cell/uL F 0.0-400.0 Eosinophils [#/volume] in Blood by Automated count 2024-02-26 04:01:37 146 Cell/uL F 0.0-700.0 Monocytes [#/volume] in Blood by Automated count 2024-02-26 04:01:37 302 Cell/uL F 0.0-1100.0 Lymphocytes [#/volume] in Blood by Automated count 2024-02-26 04:01:37 530 Cell/uL F 620.0-3660.0 Neutrophils [#/volume] in Blood by Automated count 2024-02-26 04:01:37 8135 Cell/uL F 2000.0-8800. 0 Monocytes/100 leukocytes in Blood by Automated count 2024-01-24 05:33:32 3.4 % F Eosinophils/100 leukocytes in Blood by Automated count 2024-01-24 05:33:32 3.3 % F Basophils/100 leukocytes in Blood by Automated count 2024-01-24 05:33:32 0.7 % F Lymphocytes/100 leukocytes in Blood by Automated count 2024-01-24 05:33:32 10.6 % F Neutrophils/100 leukocytes in Blood by Automated count 2024-01-24 05:33:32 82.1 % F Leukocytes [#/volume] in Blood by Automated count 2024-01-24 05:33:32 6 x 10^3 cells/uL F 4.0-11.0 Basophils [#/volume] in Blood by Automated count 2024-01-24 05:33:32 42 Cell/uL F 0.0-400.0 Eosinophils [#/volume] in Blood by Automated count 2024-01-24 05:33:32 198 Cell/uL F 0.0-700.0 Monocytes [#/volume] in Blood by Automated count 2024-01-24 05:33:32 204 Cell/uL F 0.0-1100.0 Lymphocytes [#/volume] in Blood by Automated count 2024-01-24 05:33:32 637 Cell/uL F 620.0-3660.0 Neutrophils [#/volume] in Blood by Automated count 2024-01-24 05:33:32 4934 Cell/uL F 2000.0-8800. 0 Basophils/100 leukocytes in Blood by Automated count 2024-01-24 05:33:32 0.7 % F Neutrophils/100 leukocytes in Blood by Automated count 2024-01-24 05:33:32 82.1 % F Monocytes/100 leukocytes in Blood by Automated count 2024-01-24 05:33:32 3.4 % F Lymphocytes/100 leukocytes in Blood by Automated count 2024-01-24 05:33:32 10.6 % F Eosinophils/100 leukocytes in Blood by Automated count 2024-01-24 05:33:32 3.3 % F Leukocytes [#/volume] in Blood by Automated count 2024-01-24 05:33:32 6 x 10^3 cells/uL F 4.0-11.0 Eosinophils [#/volume] in Blood by Automated count 2024-01-24 05:33:32 198 Cell/uL F 0.0-700.0 Basophils [#/volume] in Blood by Automated count 2024-01-24 05:33:32 42 Cell/uL F 0.0-400.0 Monocytes [#/volume] in Blood by Automated count 2024-01-24 05:33:32 204 Cell/uL F 0.0-1100.0 Lymphocytes [#/volume] in Blood by Automated count 2024-01-24 05:33:32 637 Cell/uL F 620.0-3660.0 Neutrophils [#/volume] in Blood by Automated count 2024-01-24 05:33:32 4934 Cell/uL F 2000.0-8800. 0 Basophils/100 leukocytes in Blood by Automated count 2024-01-24 05:33:32 0.7 % F Neutrophils/100 leukocytes in Blood by Automated count 2024-01-24 05:33:32 82.1 % F Monocytes/100 leukocytes in Blood by Automated count 2024-01-24 05:33:32 3.4 % F Leukocytes [#/volume] in Blood by Automated count 2024-01-24 05:33:32 6 x 10^3 cells/uL F 4.0-11.0 Eosinophils [#/volume] in Blood by Automated count 2024-01-24 05:33:32 198 Cell/uL F 0.0-700.0 Lymphocytes/100 leukocytes in Blood by Automated count 2024-01-24 05:33:32 10.6 % F Eosinophils/100 leukocytes in Blood by Automated count 2024-01-24 05:33:32 3.3 % F Lymphocytes [#/volume] in Blood by Automated count 2024-01-24 05:33:32 637 Cell/uL F 620.0-3660.0 Neutrophils [#/volume] in Blood by Automated count 2024-01-24 05:33:32 4934 Cell/uL F 2000.0-8800. 0 Monocytes [#/volume] in Blood by Automated count 2024-01-24 05:33:32 204 Cell/uL F 0.0-1100.0 Basophils [#/volume] in Blood by Automated count 2024-01-24 05:33:32 42 Cell/uL F 0.0-400.0 Lymphocytes/100 leukocytes in Blood by Automated count 2023-12-31 23:53:39 12.2 % F Eosinophils/100 leukocytes in Blood by Automated count 2023-12-31 23:53:39 2.3 % F Basophils/100 leukocytes in Blood by Automated count 2023-12-31 23:53:39 0.8 % F Monocytes/100 leukocytes in Blood by Automated count 2023-12-31 23:53:39 4 % F Neutrophils/100 leukocytes in Blood by Automated count 2023-12-31 23:53:39 80.7 % F Leukocytes [#/volume] in Blood by Automated count 2023-12-31 23:53:39 5.2 x 10^3 cells/uL F 4.0-11.0 Eosinophils [#/volume] in Blood by Automated count 2023-12-31 23:53:39 121 Cell/uL F 0.0-700.0 Basophils [#/volume] in Blood by Automated count 2023-12-31 23:53:39 42 Cell/uL F 0.0-400.0 Monocytes [#/volume] in Blood by Automated count 2023-12-31 23:53:39 210 Cell/uL F 0.0-1100.0 Lymphocytes [#/volume] in Blood by Automated count 2023-12-31 23:53:39 639 Cell/uL F 620.0-3660.0 Neutrophils [#/volume] in Blood by Automated count 2023-12-31 23:53:39 4229 Cell/uL F 2000.0-8800. 0 Eosinophils/100 leukocytes in Blood by Automated count 2023-12-31 23:53:39 2.3 % F Basophils/100 leukocytes in Blood by Automated count 2023-12-31 23:53:39 0.8 % F Neutrophils/100 leukocytes in Blood by Automated count 2023-12-31 23:53:39 80.7 % F Monocytes/100 leukocytes in Blood by Automated count 2023-12-31 23:53:39 4 % F Lymphocytes/100 leukocytes in Blood by Automated count 2023-12-31 23:53:39 12.2 % F Leukocytes [#/volume] in Blood by Automated count 2023-12-31 23:53:39 5.2 x 10^3 cells/uL F 4.0-11.0 Eosinophils [#/volume] in Blood by Automated count 2023-12-31 23:53:39 121 Cell/uL F 0.0-700.0 Basophils [#/volume] in Blood by Automated count 2023-12-31 23:53:39 42 Cell/uL F 0.0-400.0 Monocytes [#/volume] in Blood by Automated count 2023-12-31 23:53:39 210 Cell/uL F 0.0-1100.0 Lymphocytes [#/volume] in Blood by Automated count 2023-12-31 23:53:39 639 Cell/uL F 620.0-3660.0 Neutrophils [#/volume] in Blood by Automated count 2023-12-31 23:53:39 4229 Cell/uL F 2000.0-8800. 0 Neutrophils/100 leukocytes in Blood by Automated count 2023-12-31 23:53:39 80.7 % F Lymphocytes/100 leukocytes in Blood by Automated count 2023-12-31 23:53:39 12.2 % F Basophils/100 leukocytes in Blood by Automated count 2023-12-31 23:53:39 0.8 % F Eosinophils/100 leukocytes in Blood by Automated count 2023-12-31 23:53:39 2.3 % F Lymphocytes [#/volume] in Blood by Automated count 2023-12-31 23:53:39 639 Cell/uL F 620.0-3660.0 Neutrophils [#/volume] in Blood by Automated count 2023-12-31 23:53:39 4229 Cell/uL F 2000.0-8800. 0 Basophils [#/volume] in Blood by Automated count 2023-12-31 23:53:39 42 Cell/uL F 0.0-400.0 Monocytes [#/volume] in Blood by Automated count 2023-12-31 23:53:39 210 Cell/uL F 0.0-1100.0 Eosinophils [#/volume] in Blood by Automated count 2023-12-31 23:53:39 121 Cell/uL F 0.0-700.0 Leukocytes [#/volume] in Blood by Automated count 2023-12-31 23:53:39 5.2 x 10^3 cells/uL F 4.0-11.0 Monocytes/100 leukocytes in Blood by Automated count 2023-12-31 23:53:39 4 % F Monocytes/100 leukocytes in Blood by Automated count 2023-11-30 17:36:49 4.6 % F Neutrophils/100 leukocytes in Blood by Automated count 2023-11-30 17:36:49 78.1 % F Leukocytes [#/volume] in Blood by Automated count 2023-11-30 17:36:49 5.7 x 10^3 cells/uL F 4.0-11.0 Neutrophils/100 leukocytes in Blood by Automated count 2023-11-30 17:36:49 78.1 % F Leukocytes [#/volume] in Blood by Automated count 2023-11-30 17:36:49 5.7 x 10^3 cells/uL F 4.0-11.0 Monocytes/100 leukocytes in Blood by Automated count 2023-11-30 17:36:49 4.6 % F Eosinophils/100 leukocytes in Blood by Automated count 2023-11-30 17:36:47 3.3 % F Lymphocytes/100 leukocytes in Blood by Automated count 2023-11-30 17:36:47 12.8 % F Basophils/100 leukocytes in Blood by Automated count 2023-11-30 17:36:47 1.2 % F Basophils [#/volume] in Blood by Automated count 2023-11-30 17:36:47 68 Cell/uL F 0.0-400.0 Monocytes [#/volume] in Blood by Automated count 2023-11-30 17:36:47 261 Cell/uL F 0.0-1100.0 Lymphocytes [#/volume] in Blood by Automated count 2023-11-30 17:36:47 726 Cell/uL F 620.0-3660.0 Neutrophils [#/volume] in Blood by Automated count 2023-11-30 17:36:47 4428 Cell/uL F 2000.0-8800. 0 Basophils/100 leukocytes in Blood by Automated count 2023-11-30 17:36:47 1.2 % F Eosinophils/100 leukocytes in Blood by Automated count 2023-11-30 17:36:47 3.3 % F Lymphocytes [#/volume] in Blood by Automated count 2023-11-30 17:36:47 726 Cell/uL F 620.0-3660.0 Neutrophils [#/volume] in Blood by Automated count 2023-11-30 17:36:47 4428 Cell/uL F 2000.0-8800. 0 Lymphocytes/100 leukocytes in Blood by Automated count 2023-11-30 17:36:47 12.8 % F Basophils [#/volume] in Blood by Automated count 2023-11-30 17:36:47 68 Cell/uL F 0.0-400.0 Monocytes [#/volume] in Blood by Automated count 2023-11-30 17:36:47 261 Cell/uL F 0.0-1100.0 Eosinophils [#/volume] in Blood by Automated count 2023-11-30 17:36:42 187 Cell/uL F 0.0-700.0 Eosinophils [#/volume] in Blood by Automated count 2023-11-30 17:36:42 187 Cell/uL F 0.0-700.0 Eosinophils/100 leukocytes in Blood by Automated count 2023-11-02 04:43:40 2.4 % F Neutrophils/100 leukocytes in Blood by Automated count 2023-11-02 04:43:40 81.5 % F Monocytes/100 leukocytes in Blood by Automated count 2023-11-02 04:43:40 4.6 % F Lymphocytes/100 leukocytes in Blood by Automated count 2023-11-02 04:43:40 11.2 % F Basophils/100 leukocytes in Blood by Automated count 2023-11-02 04:43:40 0.3 % F Leukocytes [#/volume] in Blood by Automated count 2023-11-02 04:43:40 5.9 x 10^3 cells/uL F 4.0-11.0 Basophils [#/volume] in Blood by Automated count 2023-11-02 04:43:40 18 Cell/uL F 0.0-400.0 Eosinophils [#/volume] in Blood by Automated count 2023-11-02 04:43:40 141 Cell/uL F 0.0-700.0 Monocytes [#/volume] in Blood by Automated count 2023-11-02 04:43:40 270 Cell/uL F 0.0-1100.0 Lymphocytes [#/volume] in Blood by Automated count 2023-11-02 04:43:40 657 Cell/uL F 620.0-3660.0 Neutrophils [#/volume] in Blood by Automated count 2023-11-02 04:43:40 4784 Cell/uL F 2000.0-8800. 0 Neutrophils/100 leukocytes in Blood by Automated count 2023-08-31 16:29:36 77.3 % F Basophils/100 leukocytes in Blood by Automated count 2023-08-31 16:29:36 0.7 % F Monocytes/100 leukocytes in Blood by Automated count 2023-08-31 16:29:36 5 % F Lymphocytes/100 leukocytes in Blood by Automated count 2023-08-31 16:29:36 12.7 % F Eosinophils/100 leukocytes in Blood by Automated count 2023-08-31 16:29:36 4.2 % F Leukocytes [#/volume] in Blood by Automated count 2023-08-31 16:29:36 5.6 x 10^3 cells/uL F 4.0-11.0 Eosinophils [#/volume] in Blood by Automated count 2023-08-31 16:29:36 234 Cell/uL F 0.0-700.0 Basophils [#/volume] in Blood by Automated count 2023-08-31 16:29:36 39 Cell/uL F 0.0-400.0 Monocytes [#/volume] in Blood by Automated count 2023-08-31 16:29:36 279 Cell/uL F 0.0-1100.0 Lymphocytes [#/volume] in Blood by Automated count 2023-08-31 16:29:36 709 Cell/uL F 620.0-3660.0 Neutrophils [#/volume] in Blood by Automated count 2023-08-31 16:29:36 4313 Cell/uL F 2000.0-8800. 0 Lymphocytes [#/volume] in Blood by Automated count 2023-07-23 17:37:40 632 Cell/uL F 620.0-3660.0 Neutrophils [#/volume] in Blood by Automated count 2023-07-23 17:37:40 5483 Cell/uL F 2000.0-8800. 0 Basophils/100 leukocytes in Blood by Automated count 2023-07-23 17:37:40 0.3 % F Neutrophils/100 leukocytes in Blood by Automated count 2023-07-23 17:37:40 84.1 % F Lymphocytes/100 leukocytes in Blood by Automated count 2023-07-23 17:37:40 9.7 % F Monocytes/100 leukocytes in Blood by Automated count 2023-07-23 17:37:40 3.5 % F Leukocytes [#/volume] in Blood by Automated count 2023-07-23 17:37:40 6.5 x 10^3 cells/uL F 4.0-11.0 Monocytes [#/volume] in Blood by Automated count 2023-07-23 17:37:40 228 Cell/uL F 0.0-1100.0 Eosinophils/100 leukocytes in Blood by Automated count 2023-07-23 17:37:38 2.3 % F Basophils [#/volume] in Blood by Automated count 2023-07-23 17:37:38 20 Cell/uL F 0.0-400.0 Eosinophils [#/volume] in Blood by Automated count 2023-07-23 17:37:38 150 Cell/uL F 0.0-700.0 Lymphocytes/100 leukocytes in Blood by Automated count 2023-07-09 15:07:42 12.5 % F Basophils/100 leukocytes in Blood by Automated count 2023-07-09 15:07:42 0.9 % F Monocytes/100 leukocytes in Blood by Automated count 2023-07-09 15:07:42 3.3 % F Neutrophils/100 leukocytes in Blood by Automated count 2023-07-09 15:07:42 78.9 % F Eosinophils/100 leukocytes in Blood by Automated count 2023-07-09 15:07:42 4.3 % F Leukocytes [#/volume] in Blood by Automated count 2023-07-09 15:07:42 6.4 x 10^3 cells/uL F 4.0-11.0 Eosinophils [#/volume] in Blood by Automated count 2023-07-09 15:07:42 273 Cell/uL F 0.0-700.0 Basophils [#/volume] in Blood by Automated count 2023-07-09 15:07:42 57 Cell/uL F 0.0-400.0 Monocytes [#/volume] in Blood by Automated count 2023-07-09 15:07:42 210 Cell/uL F 0.0-1100.0 Neutrophils [#/volume] in Blood by Automated count 2023-07-09 15:07:42 5010 Cell/uL F 2000.0-8800. 0 Lymphocytes [#/volume] in Blood by Automated count 2023-07-09 15:07:42 794 Cell/uL F 620.0-3660.0 Eosinophils/100 leukocytes in Blood by Automated count 2023-07-09 15:07:42 4.3 % F Basophils/100 leukocytes in Blood by Automated count 2023-07-09 15:07:42 0.9 % F Monocytes/100 leukocytes in Blood by Automated count 2023-07-09 15:07:42 3.3 % F Leukocytes [#/volume] in Blood by Automated count 2023-07-09 15:07:42 6.4 x 10^3 cells/uL F 4.0-11.0 Lymphocytes [#/volume] in Blood by Automated count 2023-07-09 15:07:42 794 Cell/uL F 620.0-3660.0 Neutrophils [#/volume] in Blood by Automated count 2023-07-09 15:07:42 5010 Cell/uL F 2000.0-8800. 0 Eosinophils [#/volume] in Blood by Automated count 2023-07-09 15:07:42 273 Cell/uL F 0.0-700.0 Neutrophils/100 leukocytes in Blood by Automated count 2023-07-09 15:07:42 78.9 % F Lymphocytes/100 leukocytes in Blood by Automated count 2023-07-09 15:07:42 12.5 % F Monocytes [#/volume] in Blood by Automated count 2023-07-09 15:07:42 210 Cell/uL F 0.0-1100.0 Basophils [#/volume] in Blood by Automated count 2023-07-09 15:07:42 57 Cell/uL F 0.0-400.0 Neutrophils/100 leukocytes in Blood by Automated count 2023-05-24 15:20:46 82.7 % F Lymphocytes/100 leukocytes in Blood by Automated count 2023-05-24 15:20:46 9.1 % F Monocytes/100 leukocytes in Blood by Automated count 2023-05-24 15:20:46 3.5 % F Basophils/100 leukocytes in Blood by Automated count 2023-05-24 15:20:46 0.7 % F Eosinophils/100 leukocytes in Blood by Automated count 2023-05-24 15:20:46 4.1 % F Leukocytes [#/volume] in Blood by Automated count 2023-05-24 15:20:46 8.2 x 10^3 cells/uL F 4.0-11.0 Basophils [#/volume] in Blood by Automated count 2023-05-24 15:20:46 57 Cell/uL F 0.0-400.0 Eosinophils [#/volume] in Blood by Automated count 2023-05-24 15:20:46 336 Cell/uL F 0.0-700.0 Monocytes [#/volume] in Blood by Automated count 2023-05-24 15:20:46 287 Cell/uL F 0.0-1100.0 Lymphocytes [#/volume] in Blood by Automated count 2023-05-24 15:20:46 746 Cell/uL F 620.0-3660.0 Neutrophils [#/volume] in Blood by Automated count 2023-05-24 15:20:46 6781 Cell/uL F 2000.0-8800. 0 Basophils/100 leukocytes in Blood by Automated count 2023-05-02 23:05:44 0.6 % F Neutrophils/100 leukocytes in Blood by Automated count 2023-05-02 23:05:44 86.1 % F Eosinophils/100 leukocytes in Blood by Automated count 2023-05-02 23:05:44 3.2 % F Monocytes/100 leukocytes in Blood by Automated count 2023-05-02 23:05:44 2.6 % F Lymphocytes/100 leukocytes in Blood by Automated count 2023-05-02 23:05:44 7.5 % F Leukocytes [#/volume] in Blood by Automated count 2023-05-02 23:05:44 8.9 x 10^3 cells/uL F 4.0-11.0 Basophils [#/volume] in Blood by Automated count 2023-05-02 23:05:44 54 Cell/uL F 0.0-400.0 Eosinophils [#/volume] in Blood by Automated count 2023-05-02 23:05:44 285 Cell/uL F 0.0-700.0 Monocytes [#/volume] in Blood by Automated count 2023-05-02 23:05:44 232 Cell/uL F 0.0-1100.0 Lymphocytes [#/volume] in Blood by Automated count 2023-05-02 23:05:44 669 Cell/uL F 620.0-3660.0 Neutrophils [#/volume] in Blood by Automated count 2023-05-02 23:05:44 7680 Cell/uL F 2000.0-8800. 0 Neutrophils/100 leukocytes in Blood by Automated count 2023-03-27 02:06:25 78.1 % F Lymphocytes/100 leukocytes in Blood by Automated count 2023-03-27 02:06:25 12.6 % F Monocytes/100 leukocytes in Blood by Automated count 2023-03-27 02:06:25 2.6 % F Basophils/100 leukocytes in Blood by Automated count 2023-03-27 02:06:25 0.4 % F Eosinophils/100 leukocytes in Blood by Automated count 2023-03-27 02:06:25 6.3 % F Leukocytes [#/volume] in Blood by Automated count 2023-03-27 02:06:25 6.1 x 10^3 cells/uL F 4.0-11.0 Basophils [#/volume] in Blood by Automated count 2023-03-27 02:06:25 24.32 Cell/uL F 0.0-400.0 Eosinophils [#/volume] in Blood by Automated count 2023-03-27 02:06:25 383.04 Cell/uL F 0.0-700.0 Monocytes [#/volume] in Blood by Automated count 2023-03-27 02:06:25 158.08 Cell/uL F 0.0-1100.0 Lymphocytes [#/volume] in Blood by Automated count 2023-03-27 02:06:25 766.08 Cell/uL F 620.0-3660.0 Neutrophils [#/volume] in Blood by Automated count 2023-03-27 02:06:25 4748.48 Cell/uL F 2000.0-8800. 0 Lymphocytes/100 leukocytes in Blood by Automated count 2023-03-27 02:06:25 12.6 % F Monocytes/100 leukocytes in Blood by Automated count 2023-03-27 02:06:25 2.6 % F Monocytes [#/volume] in Blood by Automated count 2023-03-27 02:06:25 158.08 Cell/uL F 0.0-1100.0 Eosinophils [#/volume] in Blood by Automated count 2023-03-27 02:06:25 383.04 Cell/uL F 0.0-700.0 Basophils [#/volume] in Blood by Automated count 2023-03-27 02:06:25 24.32 Cell/uL F 0.0-400.0 Basophils/100 leukocytes in Blood by Automated count 2023-03-27 02:06:25 0.4 % F Eosinophils/100 leukocytes in Blood by Automated count 2023-03-27 02:06:25 6.3 % F Neutrophils/100 leukocytes in Blood by Automated count 2023-03-27 02:06:25 78.1 % F Leukocytes [#/volume] in Blood by Automated count 2023-03-27 02:06:25 6.1 x 10^3 cells/uL F 4.0-11.0 Lymphocytes [#/volume] in Blood by Automated count 2023-03-27 02:06:25 766.08 Cell/uL F 620.0-3660.0 Neutrophils [#/volume] in Blood by Automated count 2023-03-27 02:06:25 4748.48 Cell/uL F 2000.0-8800. 0 Eosinophils/100 leukocytes in Blood by Automated count 2023-02-23 21:43:11 3.2 % F Basophils/100 leukocytes in Blood by Automated count 2023-02-23 21:43:11 0.4 % F Neutrophils/100 leukocytes in Blood by Automated count 2023-02-23 21:43:11 78.1 % F Lymphocytes/100 leukocytes in Blood by Automated count 2023-02-23 21:43:11 13.8 % F Monocytes/100 leukocytes in Blood by Automated count 2023-02-23 21:43:11 4.4 % F Leukocytes [#/volume] in Blood by Automated count 2023-02-23 21:43:11 8.6 x 10^3 cells/uL F 4.5-11.0 Basophils [#/volume] in Blood by Automated count 2023-02-23 21:43:11 34.32 Cell/uL F 0.0-400.0 Eosinophils [#/volume] in Blood by Automated count 2023-02-23 21:43:11 274.56 Cell/uL F 0.0-700.0 Monocytes [#/volume] in Blood by Automated count 2023-02-23 21:43:11 377.52 Cell/uL F 0.0-1100.0 Lymphocytes [#/volume] in Blood by Automated count 2023-02-23 21:43:11 1184.04 Cell/uL F 1100.0-4800. 0 Neutrophils [#/volume] in Blood by Automated count 2023-02-23 21:43:11 6700.98 Cell/uL F 2000.0-8800. 0 Lymphocytes/100 leukocytes in Blood by Automated count 2023-01-25 16:54:23 17.1 % F Neutrophils/100 leukocytes in Blood by Automated count 2023-01-25 16:54:23 72.1 % F Eosinophils/100 leukocytes in Blood by Automated count 2023-01-25 16:54:23 4.3 % F Monocytes/100 leukocytes in Blood by Automated count 2023-01-25 16:54:23 5.2 % F Basophils/100 leukocytes in Blood by Automated count 2023-01-25 16:54:23 1.2 % F Leukocytes [#/volume] in Blood by Automated count 2023-01-25 16:54:23 4.4 x 10^3 cells/uL F 4.5-11.0 Basophils [#/volume] in Blood by Automated count 2023-01-25 16:54:23 52.68 Cell/uL F 0.0-400.0 Eosinophils [#/volume] in Blood by Automated count 2023-01-25 16:54:23 188.77 Cell/uL F 0.0-700.0 Monocytes [#/volume] in Blood by Automated count 2023-01-25 16:54:23 228.28 Cell/uL F 0.0-1100.0 Neutrophils [#/volume] in Blood by Automated count 2023-01-25 16:54:23 3165.19 Cell/uL F 2000.0-8800. 0 Lymphocytes [#/volume] in Blood by Automated count 2023-01-25 16:54:21 750.69 Cell/uL F 1100.0-4800. 0 Lymphocytes/100 leukocytes in Blood by Automated count 2023-01-01 14:25:15 15.3 % F Eosinophils/100 leukocytes in Blood by Automated count 2023-01-01 14:25:15 6.4 % F Monocytes/100 leukocytes in Blood by Automated count 2023-01-01 14:25:15 3.3 % F Basophils/100 leukocytes in Blood by Automated count 2023-01-01 14:25:15 1.8 % F Neutrophils/100 leukocytes in Blood by Automated count 2023-01-01 14:25:15 73.3 % F Leukocytes [#/volume] in Blood by Automated count 2023-01-01 14:25:15 5.4 x 10^3 cells/uL F 4.5-11.0 Eosinophils [#/volume] in Blood by Automated count 2023-01-01 14:25:15 344.96 Cell/uL F 0.0-700.0 Basophils [#/volume] in Blood by Automated count 2023-01-01 14:25:15 97.02 Cell/uL F 0.0-400.0 Monocytes [#/volume] in Blood by Automated count 2023-01-01 14:25:15 177.87 Cell/uL F 0.0-1100.0 Neutrophils [#/volume] in Blood by Automated count 2023-01-01 14:25:15 3950.87 Cell/uL F 2000.0-8800. 0 Lymphocytes [#/volume] in Blood by Automated count 2023-01-01 14:25:15 824.67 Cell/uL F 1100.0-4800. 0 Neutrophils/100 leukocytes in Blood by Automated count 2022-12-01 22:27:54 75.4 % F Basophils/100 leukocytes in Blood by Automated count 2022-12-01 22:27:54 1.3 % F Lymphocytes/100 leukocytes in Blood by Automated count 2022-12-01 22:27:54 13.1 % F Eosinophils/100 leukocytes in Blood by Automated count 2022-12-01 22:27:54 6.1 % F Monocytes/100 leukocytes in Blood by Automated count 2022-12-01 22:27:54 4.1 % F Leukocytes [#/volume] in Blood by Automated count 2022-12-01 22:27:54 5.2 x 10^3 cells/uL F 4.5-11.0 Basophils [#/volume] in Blood by Automated count 2022-12-01 22:27:54 66.95 Cell/uL F 0.0-400.0 Eosinophils [#/volume] in Blood by Automated count 2022-12-01 22:27:54 314.15 Cell/uL F 0.0-700.0 Monocytes [#/volume] in Blood by Automated count 2022-12-01 22:27:54 211.15 Cell/uL F 0.0-1100.0 Lymphocytes [#/volume] in Blood by Automated count 2022-12-01 22:27:54 674.65 Cell/uL F 1100.0-4800. 0 Neutrophils [#/volume] in Blood by Automated count 2022-12-01 22:27:54 3883.1 Cell/uL F 2000.0-8800. 0 Neutrophils/100 leukocytes in Blood by Automated count 2022-11-07 03:12:43 76.2 % F Basophils/100 leukocytes in Blood by Automated count 2022-11-07 03:12:43 0.4 % F Monocytes/100 leukocytes in Blood by Automated count 2022-11-07 03:12:43 4.9 % F Eosinophils/100 leukocytes in Blood by Automated count 2022-11-07 03:12:43 4.5 % F Lymphocytes/100 leukocytes in Blood by Automated count 2022-11-07 03:12:43 13.9 % F Leukocytes [#/volume] in Blood by Automated count 2022-11-07 03:12:43 5.3 x 10^3 cells/uL F 4.5-11.0 Basophils [#/volume] in Blood by Automated count 2022-11-07 03:12:43 21.28 Cell/uL F 0.0-400.0 Eosinophils [#/volume] in Blood by Automated count 2022-11-07 03:12:43 239.4 Cell/uL F 0.0-700.0 Monocytes [#/volume] in Blood by Automated count 2022-11-07 03:12:43 260.68 Cell/uL F 0.0-1100.0 Neutrophils [#/volume] in Blood by Automated count 2022-11-07 03:12:43 4053.84 Cell/uL F 2000.0-8800. 0 Lymphocytes [#/volume] in Blood by Automated count 2022-11-07 03:12:43 739.48 Cell/uL F 1100.0-4800. 0 Monocytes/100 leukocytes in Blood by Automated count 2022-11-07 03:12:43 4.9 % F Eosinophils/100 leukocytes in Blood by Automated count 2022-11-07 03:12:43 4.5 % F Basophils/100 leukocytes in Blood by Automated count 2022-11-07 03:12:43 0.4 % F Neutrophils/100 leukocytes in Blood by Automated count 2022-11-07 03:12:43 76.2 % F Lymphocytes/100 leukocytes in Blood by Automated count 2022-11-07 03:12:43 13.9 % F Leukocytes [#/volume] in Blood by Automated count 2022-11-07 03:12:43 5.3 x 10^3 cells/uL F 4.5-11.0 Basophils [#/volume] in Blood by Automated count 2022-11-07 03:12:43 21.28 Cell/uL F 0.0-400.0 Eosinophils [#/volume] in Blood by Automated count 2022-11-07 03:12:43 239.4 Cell/uL F 0.0-700.0 Monocytes [#/volume] in Blood by Automated count 2022-11-07 03:12:43 260.68 Cell/uL F 0.0-1100.0 Lymphocytes [#/volume] in Blood by Automated count 2022-11-07 03:12:43 739.48 Cell/uL F 1100.0-4800. 0 Neutrophils [#/volume] in Blood by Automated count 2022-11-07 03:12:43 4053.84 Cell/uL F 2000.0-8800. 0 Neutrophils/100 leukocytes in Blood by Automated count 2022-11-07 03:12:43 76.2 % F Monocytes/100 leukocytes in Blood by Automated count 2022-11-07 03:12:43 4.9 % F Eosinophils/100 leukocytes in Blood by Automated count 2022-11-07 03:12:43 4.5 % F Leukocytes [#/volume] in Blood by Automated count 2022-11-07 03:12:43 5.3 x 10^3 cells/uL F 4.5-11.0 Monocytes [#/volume] in Blood by Automated count 2022-11-07 03:12:43 260.68 Cell/uL F 0.0-1100.0 Basophils [#/volume] in Blood by Automated count 2022-11-07 03:12:43 21.28 Cell/uL F 0.0-400.0 Neutrophils [#/volume] in Blood by Automated count 2022-11-07 03:12:43 4053.84 Cell/uL F 2000.0-8800. 0 Eosinophils [#/volume] in Blood by Automated count 2022-11-07 03:12:43 239.4 Cell/uL F 0.0-700.0 Basophils/100 leukocytes in Blood by Automated count 2022-11-07 03:12:43 0.4 % F Lymphocytes/100 leukocytes in Blood by Automated count 2022-11-07 03:12:43 13.9 % F Lymphocytes [#/volume] in Blood by Automated count 2022-11-07 03:12:43 739.48 Cell/uL F 1100.0-4800. 0 Neutrophils/100 leukocytes in Blood by Automated count 2022-11-07 03:12:43 76.2 % F Basophils/100 leukocytes in Blood by Automated count 2022-11-07 03:12:43 0.4 % F Eosinophils/100 leukocytes in Blood by Automated count 2022-11-07 03:12:43 4.5 % F Monocytes/100 leukocytes in Blood by Automated count 2022-11-07 03:12:43 4.9 % F Lymphocytes/100 leukocytes in Blood by Automated count 2022-11-07 03:12:43 13.9 % F Leukocytes [#/volume] in Blood by Automated count 2022-11-07 03:12:43 5.3 x 10^3 cells/uL F 4.5-11.0 Eosinophils [#/volume] in Blood by Automated count 2022-11-07 03:12:43 239.4 Cell/uL F 0.0-700.0 Basophils [#/volume] in Blood by Automated count 2022-11-07 03:12:43 21.28 Cell/uL F 0.0-400.0 Monocytes [#/volume] in Blood by Automated count 2022-11-07 03:12:43 260.68 Cell/uL F 0.0-1100.0 Lymphocytes [#/volume] in Blood by Automated count 2022-11-07 03:12:43 739.48 Cell/uL F 1100.0-4800. 0 Neutrophils [#/volume] in Blood by Automated count 2022-11-07 03:12:43 4053.84 Cell/uL F 2000.0-8800. 0 Phosphate [Mass/volume] in Urine Phosphate [Mass/volume] in Urine Phosphate [Mass/volume] in Urine Phosphate [Mass/volume] in Urine MineralBone Disorder Description Draw Date Result/Unit Status Ref Range Result Comments CA CORRECTED 2024 08:30:05 7.5 mg/dL F CA CORRECTED 2024 08:30:05 7.5 mg/dL F CA CORRECTED 2024 08:30:05 7.5 mg/dL F CA CORRECTED 2024 08:30:05 7.5 mg/dL F CA/PHOS PRODUCT 2024 08:27:30 73.8 Calc F 21.0-53.0 CA*PO4 CORRCTD 2024 08:27:30 80.7 Calc F 21.0-53.0 CA/PHOS PRODUCT 2024 08:27:30 73.8 Calc F 21.0-53.0 CA*PO4 CORRCTD 2024 08:27:30 80.7 Calc F 21.0-53.0 CA*PO4 CORRCTD 2024 08:27:30 80.7 Calc F 21.0-53.0 CA/PHOS PRODUCT 2024 08:27:30 73.8 Calc F 21.0-53.0 CA*PO4 CORRCTD 2024 08:27:30 80.7 Calc F 21.0-53.0 CA/PHOS PRODUCT 2024 08:27:30 73.8 Calc F 21.0-53.0 Phosphate [Mass/volume] in Serum or Plasma 2024 06:43:41 10.7 mg/dL F 2.4-5.1 Calcium [Mass/volume] in Serum or Plasma 2024 06:43:41 6.9 mg/dL F 8.7-10.4 Phosphate [Mass/volume] in Serum or Plasma 2024 06:43:41 10.7 mg/dL F 2.4-5.1 Calcium [Mass/volume] in Serum or Plasma 2024 06:43:41 6.9 mg/dL F 8.7-10.4 Calcium [Mass/volume] in Serum or Plasma 2024 06:43:41 6.9 mg/dL F 8.7-10.4 Phosphate [Mass/volume] in Serum or Plasma 2024 06:43:41 10.7 mg/dL F 2.4-5.1 Phosphate [Mass/volume] in Serum or Plasma 2024 06:43:41 10.7 mg/dL F 2.4-5.1 Calcium [Mass/volume] in Serum or Plasma 2024 06:43:41 6.9 mg/dL F 8.7-10.4 25-Hydroxyvitamin D3+25-Hydroxyvitamin D2 [Mass/volume] in Serum or Plasma 2024-11-07 20:01:41 32.1 ng/mL F 25-Hydroxyvitamin D3+25-Hydroxyvitamin D2 [Mass/volume] in Serum or Plasma 2024-11-07 20:01:41 32.1 ng/mL F 25-Hydroxyvitamin D3+25-Hydroxyvitamin D2 [Mass/volume] in Serum or Plasma 2024-11-07 20:01:41 32.1 ng/mL F 25-Hydroxyvitamin D3+25-Hydroxyvitamin D2 [Mass/volume] in Serum or Plasma 2024-11-07 20:01:41 32.1 ng/mL F Parathyrin.intact [Mass/volume] in Serum or Plasma 2024-11-07 15:11:18 32 pg/mL F 18.0-80.0 Parathyrin.intact [Mass/volume] in Serum or Plasma 2024-11-07 15:11:18 32 pg/mL F 18.0-80.0 Parathyrin.intact [Mass/volume] in Serum or Plasma 2024-11-07 15:11:18 32 pg/mL F 18.0-80.0 Parathyrin.intact [Mass/volume] in Serum or Plasma 2024-11-07 15:11:18 32 pg/mL F 18.0-80.0 Alkaline phosphatase [Enzymatic activity/volume] in Serum or Plasma 2024-11-07 14:41:20 54 U/L F 46.0-116.0 Magnesium [Mass/volume] in Serum or Plasma 2024-11-07 14:41:20 2.8 mg/dL F 1.3-2.7 Magnesium [Mass/volume] in Serum or Plasma 2024-11-07 14:41:20 2.8 mg/dL F 1.3-2.7 Alkaline phosphatase [Enzymatic activity/volume] in Serum or Plasma 2024-11-07 14:41:20 54 U/L F 46.0-116.0 Alkaline phosphatase [Enzymatic activity/volume] in Serum or Plasma 2024-11-07 14:41:20 54 U/L F 46.0-116.0 Magnesium [Mass/volume] in Serum or Plasma 2024-11-07 14:41:20 2.8 mg/dL F 1.3-2.7 Magnesium [Mass/volume] in Serum or Plasma 2024-11-07 14:41:20 2.8 mg/dL F 1.3-2.7 Alkaline phosphatase [Enzymatic activity/volume] in Serum or Plasma 2024-11-07 14:41:20 54 U/L F 46.0-116.0 CA CORRECTED 2024-09-23 08:51:48 7.4 mg/dL F CA CORRECTED 2024-09-23 08:51:48 7.4 mg/dL F CA*PO4 CORRCTD 2024-09-23 08:50:30 78 Calc F 21.0-53.0 CA/PHOS PRODUCT 2024-09-23 08:50:30 72.1 Calc F 21.0-53.0 CA/PHOS PRODUCT 2024-09-23 08:50:30 72.1 Calc F 21.0-53.0 CA*PO4 CORRCTD 2024-09-23 08:50:30 78 Calc F 21.0-53.0 Calcium [Mass/volume] in Serum or Plasma 2024-09-23 08:02:26 6.8 mg/dL F 8.7-10.4 Calcium [Mass/volume] in Serum or Plasma 2024-09-23 08:02:26 6.8 mg/dL F 8.7-10.4 Parathyrin.intact [Mass/volume] in Serum or Plasma 2024-09-23 06:52:26 42 pg/mL F 18.0-80.0 Parathyrin.intact [Mass/volume] in Serum or Plasma 2024-09-23 06:52:26 42 pg/mL F 18.0-80.0 Magnesium [Mass/volume] in Serum or Plasma 2024-09-23 01:40:16 2.8 mg/dL F 1.3-2.7 Phosphate [Mass/volume] in Serum or Plasma 2024-09-23 01:40:16 10.6 mg/dL F 2.4-5.1 Alkaline phosphatase [Enzymatic activity/volume] in Serum or Plasma 2024-09-23 01:40:16 58 U/L F 46.0-116.0 Magnesium [Mass/volume] in Serum or Plasma 2024-09-23 01:40:16 2.8 mg/dL F 1.3-2.7 Phosphate [Mass/volume] in Serum or Plasma 2024-09-23 01:40:16 10.6 mg/dL F 2.4-5.1 Alkaline phosphatase [Enzymatic activity/volume] in Serum or Plasma 2024-09-23 01:40:16 58 U/L F 46.0-116.0 CA CORRECTED 2024-08-27 07:58:46 8.1 mg/dL F CA*PO4 CORRCTD 2024-08-27 07:56:48 89.5 Calc F 21.0-53.0 CA/PHOS PRODUCT 2024-08-27 07:56:48 83.3 Calc F 21.0-53.0 Calcium [Mass/volume] in Serum or Plasma 2024-08-27 07:41:17 7.5 mg/dL F 8.7-10.4 Magnesium [Mass/volume] in Serum or Plasma 2024-08-26 21:21:14 2.8 mg/dL F 1.3-2.7 Phosphate [Mass/volume] in Serum or Plasma 2024-08-26 21:21:14 11.1 mg/dL F 2.4-5.1 Alkaline phosphatase [Enzymatic activity/volume] in Serum or Plasma 2024-08-26 21:21:14 61 U/L F 46.0-116.0 Parathyrin.intact [Mass/volume] in Serum or Plasma 2024-08-26 17:36:22 38 pg/mL F 18.0-80.0 CA CORRECTED 2024-07-29 07:55:18 7 mg/dL F CA/PHOS PRODUCT 2024-07-29 07:37:55 56.3 Calc F 21.0-53.0 CA*PO4 CORRCTD 2024-07-29 07:37:55 61.6 Calc F 21.0-53.0 Calcium [Mass/volume] in Serum or Plasma 2024-07-29 07:18:59 6.4 mg/dL F 8.7-10.4 25-Hydroxyvitamin D3+25-Hydroxyvitamin D2 [Mass/volume] in Serum or Plasma 2024-07-29 03:33:12 54.2 ng/mL F Phosphate [Mass/volume] in Serum or Plasma 2024-07-29 00:57:25 8.8 mg/dL F 2.4-5.1 Magnesium [Mass/volume] in Serum or Plasma 2024-07-29 00:57:25 2.7 mg/dL F 1.3-2.7 Alkaline phosphatase [Enzymatic activity/volume] in Serum or Plasma 2024-07-29 00:57:25 56 U/L F 46.0-116.0 Parathyrin.intact [Mass/volume] in Serum or Plasma 2024-07-28 22:07:21 41 pg/mL F 18.0-80.0 CA CORRECTED 2024-07-01 06:36:46 7.7 mg/dL F CA CORRECTED 2024-07-01 06:36:46 7.7 mg/dL F CA CORRECTED 2024-07-01 06:36:46 7.7 mg/dL F CA*PO4 CORRCTD 2024-07-01 06:08:41 64.7 Calc F 21.0-53.0 CA/PHOS PRODUCT 2024-07-01 06:08:41 61.3 Calc F 21.0-53.0 CA/PHOS PRODUCT 2024-07-01 06:08:41 61.3 Calc F 21.0-53.0 CA*PO4 CORRCTD 2024-07-01 06:08:41 64.7 Calc F 21.0-53.0 CA*PO4 CORRCTD 2024-07-01 06:08:41 64.7 Calc F 21.0-53.0 CA/PHOS PRODUCT 2024-07-01 06:08:41 61.3 Calc F 21.0-53.0 Calcium [Mass/volume] in Serum or Plasma 2024-07-01 06:02:24 7.3 mg/dL F 8.7-10.4 Calcium [Mass/volume] in Serum or Plasma 2024-07-01 06:02:24 7.3 mg/dL F 8.7-10.4 Calcium [Mass/volume] in Serum or Plasma 2024-07-01 06:02:24 7.3 mg/dL F 8.7-10.4 Parathyrin.intact [Mass/volume] in Serum or Plasma 2024-06-30 19:44:18 41 pg/mL F 18.0-80.0 Parathyrin.intact [Mass/volume] in Serum or Plasma 2024-06-30 19:44:18 41 pg/mL F 18.0-80.0 Parathyrin.intact [Mass/volume] in Serum or Plasma 2024-06-30 19:44:18 41 pg/mL F 18.0-80.0 Phosphate [Mass/volume] in Serum or Plasma 2024-06-30 17:31:20 8.4 mg/dL F 2.4-5.1 Magnesium [Mass/volume] in Serum or Plasma 2024-06-30 17:31:20 2.6 mg/dL F 1.3-2.7 Alkaline phosphatase [Enzymatic activity/volume] in Serum or Plasma 2024-06-30 17:31:20 66 U/L F 46.0-116.0 Phosphate [Mass/volume] in Serum or Plasma 2024-06-30 17:31:20 8.4 mg/dL F 2.4-5.1 Magnesium [Mass/volume] in Serum or Plasma 2024-06-30 17:31:20 2.6 mg/dL F 1.3-2.7 Alkaline phosphatase [Enzymatic activity/volume] in Serum or Plasma 2024-06-30 17:31:20 66 U/L F 46.0-116.0 Magnesium [Mass/volume] in Serum or Plasma 2024-06-30 17:31:20 2.6 mg/dL F 1.3-2.7 Alkaline phosphatase [Enzymatic activity/volume] in Serum or Plasma 2024-06-30 17:31:20 66 U/L F 46.0-116.0 Phosphate [Mass/volume] in Serum or Plasma 2024-06-30 17:31:20 8.4 mg/dL F 2.4-5.1 CA CORRECTED 2024-06-05 08:01:36 6.5 mg/dL F CA CORRECTED 2024-06-05 08:01:36 6.5 mg/dL F CA/PHOS PRODUCT 2024-06-05 06:10:58 59.5 Calc F 21.0-53.0 CA*PO4 CORRCTD 2024-06-05 06:10:58 62.4 Calc F 21.0-53.0 CA/PHOS PRODUCT 2024-06-05 06:10:58 59.5 Calc F 21.0-53.0 CA*PO4 CORRCTD 2024-06-05 06:10:58 62.4 Calc F 21.0-53.0 Calcium [Mass/volume] in Serum or Plasma 2024-06-05 05:54:13 6.2 mg/dL F 8.7-10.4 Calcium [Mass/volume] in Serum or Plasma 2024-06-05 05:54:13 6.2 mg/dL F 8.7-10.4 Magnesium [Mass/volume] in Serum or Plasma 2024-06-05 00:49:05 2.4 mg/dL F 1.3-2.7 Phosphate [Mass/volume] in Serum or Plasma 2024-06-05 00:49:05 9.6 mg/dL F 2.4-5.1 Alkaline phosphatase [Enzymatic activity/volume] in Serum or Plasma 2024-06-05 00:49:05 72 U/L F 46.0-116.0 Alkaline phosphatase [Enzymatic activity/volume] in Serum or Plasma 2024-06-05 00:49:05 72 U/L F 46.0-116.0 Phosphate [Mass/volume] in Serum or Plasma 2024-06-05 00:49:05 9.6 mg/dL F 2.4-5.1 Magnesium [Mass/volume] in Serum or Plasma 2024-06-05 00:49:05 2.4 mg/dL F 1.3-2.7 Parathyrin.intact [Mass/volume] in Serum or Plasma 2024-06-04 14:04:41 46 pg/mL F 18.0-80.0 Parathyrin.intact [Mass/volume] in Serum or Plasma 2024-06-04 14:04:41 46 pg/mL F 18.0-80.0 CA*PO4 CORRCTD 2024-05-02 07:10:49 69 Calc F 21.0-53.0 CA/PHOS PRODUCT 2024-05-02 07:10:49 65.9 Calc F 21.0-53.0 CA/PHOS PRODUCT 2024-05-02 07:10:49 65.9 Calc F 21.0-53.0 CA*PO4 CORRCTD 2024-05-02 07:10:49 69 Calc F 21.0-53.0 CA*PO4 CORRCTD 2024-05-02 07:10:49 69 Calc F 21.0-53.0 CA/PHOS PRODUCT 2024-05-02 07:10:49 65.9 Calc F 21.0-53.0 Parathyrin.intact [Mass/volume] in Serum or Plasma 2024-05-02 07:05:14 51 pg/mL F 18.0-80.0 Parathyrin.intact [Mass/volume] in Serum or Plasma 2024-05-02 07:05:14 51 pg/mL F 18.0-80.0 Parathyrin.intact [Mass/volume] in Serum or Plasma 2024-05-02 07:05:14 51 pg/mL F 18.0-80.0 CA CORRECTED 2024-05-01 07:19:36 6.7 mg/dL F CA CORRECTED 2024-05-01 07:19:36 6.7 mg/dL F CA CORRECTED 2024-05-01 07:19:36 6.7 mg/dL F Calcium [Mass/volume] in Serum or Plasma 2024-05-01 07:11:13 6.4 mg/dL F 8.7-10.4 Calcium [Mass/volume] in Serum or Plasma 2024-05-01 07:11:13 6.4 mg/dL F 8.7-10.4 Calcium [Mass/volume] in Serum or Plasma 2024-05-01 07:11:13 6.4 mg/dL F 8.7-10.4 25-Hydroxyvitamin D3+25-Hydroxyvitamin D2 [Mass/volume] in Serum or Plasma 2024-05-01 04:45:47 63.1 ng/mL F 25-Hydroxyvitamin D3+25-Hydroxyvitamin D2 [Mass/volume] in Serum or Plasma 2024-05-01 04:45:47 63.1 ng/mL F 25-Hydroxyvitamin D3+25-Hydroxyvitamin D2 [Mass/volume] in Serum or Plasma 2024-05-01 04:45:47 63.1 ng/mL F Phosphate [Mass/volume] in Serum or Plasma 2024-04-30 23:32:39 10.3 mg/dL F 2.4-5.1 Magnesium [Mass/volume] in Serum or Plasma 2024-04-30 23:32:39 2.5 mg/dL F 1.3-2.7 Alkaline phosphatase [Enzymatic activity/volume] in Serum or Plasma 2024-04-30 23:32:39 57 U/L F 46.0-116.0 Magnesium [Mass/volume] in Serum or Plasma 2024-04-30 23:32:39 2.5 mg/dL F 1.3-2.7 Phosphate [Mass/volume] in Serum or Plasma 2024-04-30 23:32:39 10.3 mg/dL F 2.4-5.1 Alkaline phosphatase [Enzymatic activity/volume] in Serum or Plasma 2024-04-30 23:32:39 57 U/L F 46.0-116.0 Phosphate [Mass/volume] in Serum or Plasma 2024-04-30 23:32:39 10.3 mg/dL F 2.4-5.1 Magnesium [Mass/volume] in Serum or Plasma 2024-04-30 23:32:39 2.5 mg/dL F 1.3-2.7 Alkaline phosphatase [Enzymatic activity/volume] in Serum or Plasma 2024-04-30 23:32:39 57 U/L F 46.0-116.0 Parathyrin.intact [Mass/volume] in Serum or Plasma 2024-03-26 06:19:29 41 pg/mL F 18.0-80.0 Parathyrin.intact [Mass/volume] in Serum or Plasma 2024-03-26 06:19:29 41 pg/mL F 18.0-80.0 CA CORRECTED 2024-03-26 02:28:36 7.6 mg/dL F CA CORRECTED 2024-03-26 02:28:36 7.6 mg/dL F CA/PHOS PRODUCT 2024-03-26 02:15:46 59.5 Calc F 21.0-53.0 CA*PO4 CORRCTD 2024-03-26 02:15:46 64.6 Calc F 21.0-53.0 CA/PHOS PRODUCT 2024-03-26 02:15:46 59.5 Calc F 21.0-53.0 CA*PO4 CORRCTD 2024-03-26 02:15:46 64.6 Calc F 21.0-53.0 Calcium [Mass/volume] in Serum or Plasma 2024-03-26 02:06:27 7 mg/dL F 8.7-10.4 Calcium [Mass/volume] in Serum or Plasma 2024-03-26 02:06:27 7 mg/dL F 8.7-10.4 Magnesium [Mass/volume] in Serum or Plasma 2024-03-25 17:19:38 2.3 mg/dL F 1.3-2.7 Phosphate [Mass/volume] in Serum or Plasma 2024-03-25 17:19:38 8.5 mg/dL F 2.4-5.1 Alkaline phosphatase [Enzymatic activity/volume] in Serum or Plasma 2024-03-25 17:19:38 52 U/L F 46.0-116.0 Alkaline phosphatase [Enzymatic activity/volume] in Serum or Plasma 2024-03-25 17:19:38 52 U/L F 46.0-116.0 Phosphate [Mass/volume] in Serum or Plasma 2024-03-25 17:19:38 8.5 mg/dL F 2.4-5.1 Magnesium [Mass/volume] in Serum or Plasma 2024-03-25 17:19:38 2.3 mg/dL F 1.3-2.7 CA CORRECTED 2024-02-26 06:50:39 7.8 mg/dL F CA*PO4 CORRCTD 2024-02-26 06:41:17 53.8 Calc F 21.0-53.0 CA/PHOS PRODUCT 2024-02-26 06:41:17 48.3 Calc F 21.0-53.0 Calcium [Mass/volume] in Serum or Plasma 2024-02-26 06:39:07 7 mg/dL F 8.7-10.4 Parathyrin.intact [Mass/volume] in Serum or Plasma 2024-02-26 05:37:37 31 pg/mL F 18.0-80.0 Phosphate [Mass/volume] in Serum or Plasma 2024-02-25 17:38:35 6.9 mg/dL F 2.4-5.1 Magnesium [Mass/volume] in Serum or Plasma 2024-02-25 17:38:35 2.2 mg/dL F 1.3-2.7 Alkaline phosphatase [Enzymatic activity/volume] in Serum or Plasma 2024-02-25 17:38:35 57 U/L F 46.0-116.0 CA CORRECTED 2024-01-25 07:34:43 7.2 mg/dL F CA CORRECTED 2024-01-25 07:34:43 7.2 mg/dL F CA CORRECTED 2024-01-25 07:34:43 7.2 mg/dL F CA/PHOS PRODUCT 2024-01-25 07:27:37 54.1 Calc F 21.0-53.0 CA*PO4 CORRCTD 2024-01-25 07:27:37 59 Calc F 21.0-53.0 CA*PO4 CORRCTD 2024-01-25 07:27:37 59 Calc F 21.0-53.0 CA/PHOS PRODUCT 2024-01-25 07:27:37 54.1 Calc F 21.0-53.0 CA/PHOS PRODUCT 2024-01-25 07:27:37 54.1 Calc F 21.0-53.0 CA*PO4 CORRCTD 2024-01-25 07:27:37 59 Calc F 21.0-53.0 Calcium [Mass/volume] in Serum or Plasma 2024-01-25 07:23:43 6.6 mg/dL F 8.7-10.4 Calcium [Mass/volume] in Serum or Plasma 2024-01-25 07:23:43 6.6 mg/dL F 8.7-10.4 Calcium [Mass/volume] in Serum or Plasma 2024-01-25 07:23:43 6.6 mg/dL F 8.7-10.4 Phosphate [Mass/volume] in Serum or Plasma 2024-01-24 16:30:47 8.2 mg/dL F 2.4-5.1 Magnesium [Mass/volume] in Serum or Plasma 2024-01-24 16:30:47 2.2 mg/dL F 1.3-2.7 Alkaline phosphatase [Enzymatic activity/volume] in Serum or Plasma 2024-01-24 16:30:47 51 U/L F 46.0-116.0 Magnesium [Mass/volume] in Serum or Plasma 2024-01-24 16:30:47 2.2 mg/dL F 1.3-2.7 Phosphate [Mass/volume] in Serum or Plasma 2024-01-24 16:30:47 8.2 mg/dL F 2.4-5.1 Alkaline phosphatase [Enzymatic activity/volume] in Serum or Plasma 2024-01-24 16:30:47 51 U/L F 46.0-116.0 Alkaline phosphatase [Enzymatic activity/volume] in Serum or Plasma 2024-01-24 16:30:47 51 U/L F 46.0-116.0 Phosphate [Mass/volume] in Serum or Plasma 2024-01-24 16:30:47 8.2 mg/dL F 2.4-5.1 Magnesium [Mass/volume] in Serum or Plasma 2024-01-24 16:30:47 2.2 mg/dL F 1.3-2.7 Parathyrin.intact [Mass/volume] in Serum or Plasma 2024-01-24 03:10:24 42 pg/mL F 18.0-80.0 Parathyrin.intact [Mass/volume] in Serum or Plasma 2024-01-24 03:10:24 42 pg/mL F 18.0-80.0 Parathyrin.intact [Mass/volume] in Serum or Plasma 2024-01-24 03:10:24 42 pg/mL F 18.0-80.0 25-Hydroxyvitamin D3+25-Hydroxyvitamin D2 [Mass/volume] in Serum or Plasma 2024-01-24 03:05:41 62.3 ng/mL F 25-Hydroxyvitamin D3+25-Hydroxyvitamin D2 [Mass/volume] in Serum or Plasma 2024-01-24 03:05:41 62.3 ng/mL F 25-Hydroxyvitamin D3+25-Hydroxyvitamin D2 [Mass/volume] in Serum or Plasma 2024-01-24 03:05:41 62.3 ng/mL F Parathyrin.intact [Mass/volume] in Serum or Plasma 2024-01-01 06:58:22 51 pg/mL F 18.0-80.0 Parathyrin.intact [Mass/volume] in Serum or Plasma 2024-01-01 06:58:22 51 pg/mL F 18.0-80.0 Parathyrin.intact [Mass/volume] in Serum or Plasma 2024-01-01 06:58:22 51 pg/mL F 18.0-80.0 CA CORRECTED 2023-12-31 18:35:09 7.4 mg/dL F CA CORRECTED 2023-12-31 18:35:09 7.4 mg/dL F CA CORRECTED 2023-12-31 18:35:09 7.4 mg/dL F CA*PO4 CORRCTD 2023-12-31 18:31:34 60.7 Calc F 21.0-53.0 CA/PHOS PRODUCT 2023-12-31 18:31:34 57.4 Calc F 21.0-53.0 CA*PO4 CORRCTD 2023-12-31 18:31:34 60.7 Calc F 21.0-53.0 CA/PHOS PRODUCT 2023-12-31 18:31:34 57.4 Calc F 21.0-53.0 CA/PHOS PRODUCT 2023-12-31 18:31:34 57.4 Calc F 21.0-53.0 CA*PO4 CORRCTD 2023-12-31 18:31:34 60.7 Calc F 21.0-53.0 Calcium [Mass/volume] in Serum or Plasma 2023-12-31 18:30:29 7 mg/dL F 8.7-10.4 Calcium [Mass/volume] in Serum or Plasma 2023-12-31 18:30:29 7 mg/dL F 8.7-10.4 Calcium [Mass/volume] in Serum or Plasma 2023-12-31 18:30:29 7 mg/dL F 8.7-10.4 Phosphate [Mass/volume] in Serum or Plasma 2023-12-31 15:56:18 8.2 mg/dL F 2.4-5.1 Phosphate [Mass/volume] in Serum or Plasma 2023-12-31 15:56:18 8.2 mg/dL F 2.4-5.1 Phosphate [Mass/volume] in Serum or Plasma 2023-12-31 15:56:18 8.2 mg/dL F 2.4-5.1 Magnesium [Mass/volume] in Serum or Plasma 2023-12-31 15:56:16 2.3 mg/dL F 1.3-2.7 Alkaline phosphatase [Enzymatic activity/volume] in Serum or Plasma 2023-12-31 15:56:16 61 U/L F 46.0-116.0 Magnesium [Mass/volume] in Serum or Plasma 2023-12-31 15:56:16 2.3 mg/dL F 1.3-2.7 Alkaline phosphatase [Enzymatic activity/volume] in Serum or Plasma 2023-12-31 15:56:16 61 U/L F 46.0-116.0 Alkaline phosphatase [Enzymatic activity/volume] in Serum or Plasma 2023-12-31 15:56:16 61 U/L F 46.0-116.0 Magnesium [Mass/volume] in Serum or Plasma 2023-12-31 15:56:16 2.3 mg/dL F 1.3-2.7 Parathyrin.intact [Mass/volume] in Serum or Plasma 2023-12-01 04:56:58 50 pg/mL F 18.0-80.0 Parathyrin.intact [Mass/volume] in Serum or Plasma 2023-12-01 04:56:58 50 pg/mL F 18.0-80.0 CA CORRECTED 2023-11-30 20:57:37 7.4 mg/dL F CA CORRECTED 2023-11-30 20:57:37 7.4 mg/dL F CA/PHOS PRODUCT 2023-11-30 20:54:53 49 Calc F 21.0-53.0 CA*PO4 CORRCTD 2023-11-30 20:54:53 51.8 Calc F 21.0-53.0 CA/PHOS PRODUCT 2023-11-30 20:54:53 49 Calc F 21.0-53.0 CA*PO4 CORRCTD 2023-11-30 20:54:53 51.8 Calc F 21.0-53.0 Calcium [Mass/volume] in Serum or Plasma 2023-11-30 20:53:33 7 mg/dL F 8.7-10.4 Calcium [Mass/volume] in Serum or Plasma 2023-11-30 20:53:33 7 mg/dL F 8.7-10.4 Phosphate [Mass/volume] in Serum or Plasma 2023-11-30 16:06:45 7 mg/dL F 2.4-5.1 Phosphate [Mass/volume] in Serum or Plasma 2023-11-30 16:06:45 7 mg/dL F 2.4-5.1 Magnesium [Mass/volume] in Serum or Plasma 2023-11-30 16:06:43 2.5 mg/dL F 1.3-2.7 Alkaline phosphatase [Enzymatic activity/volume] in Serum or Plasma 2023-11-30 16:06:43 53 U/L F 46.0-116.0 Alkaline phosphatase [Enzymatic activity/volume] in Serum or Plasma 2023-11-30 16:06:43 53 U/L F 46.0-116.0 Magnesium [Mass/volume] in Serum or Plasma 2023-11-30 16:06:43 2.5 mg/dL F 1.3-2.7 CA CORRECTED 2023-11-02 08:21:15 7.6 mg/dL F CA/PHOS PRODUCT 2023-11-02 08:14:56 53.3 Calc F 21.0-53.0 CA*PO4 CORRCTD 2023-11-02 08:14:56 56.2 Calc F 21.0-53.0 Calcium [Mass/volume] in Serum or Plasma 2023-11-02 08:09:48 7.2 mg/dL F 8.7-10.4 Parathyrin.intact [Mass/volume] in Serum or Plasma 2023-11-02 07:55:43 45 pg/mL F 18.0-80.0 25-Hydroxyvitamin D3+25-Hydroxyvitamin D2 [Mass/volume] in Serum or Plasma 2023-11-02 05:32:16 46.5 ng/mL F Magnesium [Mass/volume] in Serum or Plasma 2023-11-02 02:56:28 2.4 mg/dL F 1.3-2.7 Phosphate [Mass/volume] in Serum or Plasma 2023-11-02 02:56:28 7.4 mg/dL F 2.4-5.1 Alkaline phosphatase [Enzymatic activity/volume] in Serum or Plasma 2023-11-02 02:56:28 51 U/L F 46.0-116.0 Parathyrin.intact [Mass/volume] in Serum or Plasma 2023-09-01 02:26:20 27 pg/mL F 18.0-80.0 CA CORRECTED 2023-08-31 20:24:47 8.8 mg/dL F CA*PO4 CORRCTD 2023-08-31 20:22:29 48.4 Calc F 21.0-53.0 CA/PHOS PRODUCT 2023-08-31 20:22:29 44.6 Calc F 21.0-53.0 Calcium [Mass/volume] in Serum or Plasma 2023-08-31 20:22:11 8.1 mg/dL F 8.7-10.4 Magnesium [Mass/volume] in Serum or Plasma 2023-08-31 16:42:29 2.2 mg/dL F 1.3-2.7 Phosphate [Mass/volume] in Serum or Plasma 2023-08-31 16:42:29 5.5 mg/dL F 2.4-5.1 Alkaline phosphatase [Enzymatic activity/volume] in Serum or Plasma 2023-08-31 16:42:29 51 U/L F 46.0-116.0 CA CORRECTED 2023-07-24 07:53:08 8.8 mg/dL F CA*PO4 CORRCTD 2023-07-24 07:18:53 56.3 Calc F 21.0-53.0 CA/PHOS PRODUCT 2023-07-24 07:18:53 53.8 Calc F 21.0-53.0 Calcium [Mass/volume] in Serum or Plasma 2023-07-24 07:14:53 8.4 mg/dL F 8.7-10.4 25-Hydroxyvitamin D3+25-Hydroxyvitamin D2 [Mass/volume] in Serum or Plasma 2023-07-24 06:53:01 64.8 ng/mL F Parathyrin.intact [Mass/volume] in Serum or Plasma 2023-07-24 05:34:08 34 pg/mL F 18.0-80.0 Alkaline phosphatase [Enzymatic activity/volume] in Serum or Plasma 2023-07-23 19:32:35 63 U/L F 46.0-116.0 Phosphate [Mass/volume] in Serum or Plasma 2023-07-23 19:32:35 6.4 mg/dL F 2.4-5.1 Magnesium [Mass/volume] in Serum or Plasma 2023-07-23 19:32:35 2.3 mg/dL F 1.3-2.7 CA CORRECTED 2023-07-10 05:04:54 8.6 mg/dL F CA CORRECTED 2023-07-10 05:04:54 8.6 mg/dL F CA/PHOS PRODUCT 2023-07-10 05:01:12 57.3 Calc F 21.0-53.0 CA*PO4 CORRCTD 2023-07-10 05:01:12 59.3 Calc F 21.0-53.0 CA*PO4 CORRCTD 2023-07-10 05:01:12 59.3 Calc F 21.0-53.0 CA/PHOS PRODUCT 2023-07-10 05:01:12 57.3 Calc F 21.0-53.0 Calcium [Mass/volume] in Serum or Plasma 2023-07-10 04:58:37 8.3 mg/dL F 8.7-10.4 Calcium [Mass/volume] in Serum or Plasma 2023-07-10 04:58:37 8.3 mg/dL F 8.7-10.4 Parathyrin.intact [Mass/volume] in Serum or Plasma 2023-07-10 01:32:46 38 pg/mL F 18.0-80.0 Parathyrin.intact [Mass/volume] in Serum or Plasma 2023-07-10 01:32:46 38 pg/mL F 18.0-80.0 Magnesium [Mass/volume] in Serum or Plasma 2023-07-09 21:47:39 2.4 mg/dL F 1.3-2.7 Phosphate [Mass/volume] in Serum or Plasma 2023-07-09 21:47:39 6.9 mg/dL F 2.4-5.1 Alkaline phosphatase [Enzymatic activity/volume] in Serum or Plasma 2023-07-09 21:47:39 58 U/L F 46.0-116.0 Alkaline phosphatase [Enzymatic activity/volume] in Serum or Plasma 2023-07-09 21:47:39 58 U/L F 46.0-116.0 Phosphate [Mass/volume] in Serum or Plasma 2023-07-09 21:47:39 6.9 mg/dL F 2.4-5.1 Magnesium [Mass/volume] in Serum or Plasma 2023-07-09 21:47:39 2.4 mg/dL F 1.3-2.7 CA CORRECTED 2023-05-24 17:54:48 7.8 mg/dL F CA*PO4 CORRCTD 2023-05-24 17:47:35 54.6 Calc F 21.0-53.0 CA/PHOS PRODUCT 2023-05-24 17:47:35 51.1 Calc F 21.0-53.0 Calcium [Mass/volume] in Serum or Plasma 2023-05-24 17:46:36 7.3 mg/dL F 8.7-10.4 Parathyrin.intact [Mass/volume] in Serum or Plasma 2023-05-24 17:16:29 37 pg/mL F 18.0-80.0 Magnesium [Mass/volume] in Serum or Plasma 2023-05-24 14:55:33 2.7 mg/dL F 1.3-2.7 Phosphate [Mass/volume] in Serum or Plasma 2023-05-24 14:55:33 7 mg/dL F 2.4-5.1 Alkaline phosphatase [Enzymatic activity/volume] in Serum or Plasma 2023-05-24 14:55:33 73 U/L F 46.0-116.0 CA CORRECTED 2023-05-03 05:24:38 7.7 mg/dL F CA*PO4 CORRCTD 2023-05-03 05:06:18 53.9 Calc F 21.0-53.0 CA/PHOS PRODUCT 2023-05-03 05:06:18 51.8 Calc F 21.0-53.0 Calcium [Mass/volume] in Serum or Plasma 2023-05-03 04:59:37 7.4 mg/dL F 8.7-10.4 Parathyrin.intact [Mass/volume] in Serum or Plasma 2023-05-02 21:23:46 35 pg/mL F 18.0-80.0 Phosphate [Mass/volume] in Serum or Plasma 2023-05-02 19:10:49 7 mg/dL F 2.4-5.1 Magnesium [Mass/volume] in Serum or Plasma 2023-05-02 19:10:49 2.2 mg/dL F 1.3-2.7 Alkaline phosphatase [Enzymatic activity/volume] in Serum or Plasma 2023-05-02 19:10:49 59 U/L F 46.0-116.0 25-Hydroxyvitamin D3+25-Hydroxyvitamin D2 [Mass/volume] in Serum or Plasma 2023-05-02 16:14:32 48.8 ng/mL F Parathyrin.intact [Mass/volume] in Serum or Plasma 2023-03-27 07:24:06 29 pg/mL F 18.0-80.0 Parathyrin.intact [Mass/volume] in Serum or Plasma 2023-03-27 07:24:06 29 pg/mL F 18.0-80.0 CA CORRECTED 2023-03-26 22:53:42 8.5 mg/dL F CA CORRECTED 2023-03-26 22:53:42 8.5 mg/dL F CA*PO4 CORRCTD 2023-03-26 22:46:31 54.4 Calc F 21.0-53.0 CA/PHOS PRODUCT 2023-03-26 22:46:31 52.5 Calc F 21.0-53.0 CA/PHOS PRODUCT 2023-03-26 22:46:31 52.5 Calc F 21.0-53.0 CA*PO4 CORRCTD 2023-03-26 22:46:31 54.4 Calc F 21.0-53.0 Calcium [Mass/volume] in Serum or Plasma 2023-03-26 22:43:55 8.2 mg/dL F 8.7-10.4 Calcium [Mass/volume] in Serum or Plasma 2023-03-26 22:43:55 8.2 mg/dL F 8.7-10.4 Magnesium [Mass/volume] in Serum or Plasma 2023-03-26 15:00:13 2.3 mg/dL F 1.3-2.7 Phosphate [Mass/volume] in Serum or Plasma 2023-03-26 15:00:13 6.4 mg/dL F 2.4-5.1 Alkaline phosphatase [Enzymatic activity/volume] in Serum or Plasma 2023-03-26 15:00:13 64 U/L F 46.0-116.0 Phosphate [Mass/volume] in Serum or Plasma 2023-03-26 15:00:13 6.4 mg/dL F 2.4-5.1 Alkaline phosphatase [Enzymatic activity/volume] in Serum or Plasma 2023-03-26 15:00:13 64 U/L F 46.0-116.0 Magnesium [Mass/volume] in Serum or Plasma 2023-03-26 15:00:13 2.3 mg/dL F 1.3-2.7 CA CORRECTED 2023-02-24 10:14:58 6.8 mg/dL F CA/PHOS PRODUCT 2023-02-24 04:56:25 39.7 Calc F 21.0-53.0 CA*PO4 CORRCTD 2023-02-24 04:56:25 42.2 Calc F 21.0-53.0 Calcium [Mass/volume] in Serum or Plasma 2023-02-24 04:52:51 6.4 mg/dL F 8.7-10.4 Parathyrin.intact [Mass/volume] in Serum or Plasma 2023-02-23 19:45:19 44 pg/mL F 18.0-80.0 Phosphate [Mass/volume] in Serum or Plasma 2023-02-23 17:11:17 6.2 mg/dL F 2.4-5.1 Magnesium [Mass/volume] in Serum or Plasma 2023-02-23 17:11:17 1.7 mg/dL F 1.3-2.7 Alkaline phosphatase [Enzymatic activity/volume] in Serum or Plasma 2023-02-23 17:11:17 63 U/L F 46.0-116.0 CA CORRECTED 2023-01-26 07:13:04 6.8 mg/dL F CA/PHOS PRODUCT 2023-01-26 06:50:15 49.3 Calc F 21.0-53.0 CA*PO4 CORRCTD 2023-01-26 06:50:15 52.4 Calc F 21.0-53.0 Calcium [Mass/volume] in Serum or Plasma 2023-01-26 06:22:35 6.4 mg/dL F 8.7-10.4 Parathyrin.intact [Mass/volume] in Serum or Plasma 2023-01-26 01:42:16 48 pg/mL F 18.0-80.0 Alkaline phosphatase [Enzymatic activity/volume] in Serum or Plasma 2023-01-25 23:12:16 54 U/L F 46.0-116.0 Magnesium [Mass/volume] in Serum or Plasma 2023-01-25 23:12:14 2 mg/dL F 1.3-2.7 Phosphate [Mass/volume] in Serum or Plasma 2023-01-25 23:12:14 7.7 mg/dL F 2.4-5.1 25-Hydroxyvitamin D3+25-Hydroxyvitamin D2 [Mass/volume] in Serum or Plasma 2023-01-25 15:50:23 32.7 ng/mL F 30.0-100.0 CA CORRECTED 2023-01-02 08:43:59 8 mg/dL F CA*PO4 CORRCTD 2023-01-02 06:46:11 60.8 Calc F 21.0-53.0 CA/PHOS PRODUCT 2023-01-02 06:46:11 58.5 Calc F 21.0-53.0 Calcium [Mass/volume] in Serum or Plasma 2023-01-02 06:43:44 7.7 mg/dL F 8.7-10.4 Parathyrin.intact [Mass/volume] in Serum or Plasma 2023-01-01 14:41:21 41 pg/mL F 18.0-80.0 Magnesium [Mass/volume] in Serum or Plasma 2023-01-01 13:54:14 2.2 mg/dL F 1.3-2.7 Phosphate [Mass/volume] in Serum or Plasma 2023-01-01 13:54:14 7.6 mg/dL F 2.4-5.1 Alkaline phosphatase [Enzymatic activity/volume] in Serum or Plasma 2023-01-01 13:54:14 61 U/L F 46.0-116.0 CA CORRECTED 2022-12-02 12:38:31 7.5 mg/dL F CA*PO4 CORRCTD 2022-12-02 06:50:40 49.5 Calc F 21.0-53.0 CA/PHOS PRODUCT 2022-12-02 06:50:40 46.2 Calc F 21.0-53.0 Calcium [Mass/volume] in Serum or Plasma 2022-12-02 06:45:14 7 mg/dL F 8.7-10.4 Parathyrin.intact [Mass/volume] in Serum or Plasma 2022-12-02 04:35:48 45 pg/mL F 18.0-80.0 Magnesium [Mass/volume] in Serum or Plasma 2022-12-02 00:54:48 1.9 mg/dL F 1.3-2.7 Phosphate [Mass/volume] in Serum or Plasma 2022-12-02 00:54:48 6.6 mg/dL F 2.4-5.1 Alkaline phosphatase [Enzymatic activity/volume] in Serum or Plasma 2022-12-02 00:54:48 59 U/L F 46.0-116.0 CA CORRECTED 2022-11-07 14:05:43 6.7 mg/dL F CA CORRECTED 2022-11-07 14:05:43 6.7 mg/dL F CA CORRECTED 2022-11-07 14:05:43 6.7 mg/dL F CA CORRECTED 2022-11-07 14:05:43 6.7 mg/dL F CA*PO4 CORRCTD 2022-11-07 07:28:52 52.9 Calc F 21.0-53.0 CA/PHOS PRODUCT 2022-11-07 07:28:52 49.8 Calc F 21.0-53.0 CA/PHOS PRODUCT 2022-11-07 07:28:52 49.8 Calc F 21.0-53.0 CA*PO4 CORRCTD 2022-11-07 07:28:52 52.9 Calc F 21.0-53.0 CA/PHOS PRODUCT 2022-11-07 07:28:52 49.8 Calc F 21.0-53.0 CA*PO4 CORRCTD 2022-11-07 07:28:52 52.9 Calc F 21.0-53.0 CA/PHOS PRODUCT 2022-11-07 07:28:52 49.8 Calc F 21.0-53.0 CA*PO4 CORRCTD 2022-11-07 07:28:52 52.9 Calc F 21.0-53.0 Calcium [Mass/volume] in Serum or Plasma 2022-11-07 04:55:38 6.3 mg/dL F 8.7-10.4 Calcium [Mass/volume] in Serum or Plasma 2022-11-07 04:55:38 6.3 mg/dL F 8.7-10.4 Calcium [Mass/volume] in Serum or Plasma 2022-11-07 04:55:38 6.3 mg/dL F 8.7-10.4 Calcium [Mass/volume] in Serum or Plasma 2022-11-07 04:55:38 6.3 mg/dL F 8.7-10.4 Magnesium [Mass/volume] in Serum or Plasma 2022-11-07 03:39:53 2 mg/dL F 1.3-2.7 Phosphate [Mass/volume] in Serum or Plasma 2022-11-07 03:39:53 7.9 mg/dL F 2.4-5.1 Alkaline phosphatase [Enzymatic activity/volume] in Serum or Plasma 2022-11-07 03:39:53 60 U/L F 46.0-116.0 Phosphate [Mass/volume] in Serum or Plasma 2022-11-07 03:39:53 7.9 mg/dL F 2.4-5.1 Magnesium [Mass/volume] in Serum or Plasma 2022-11-07 03:39:53 2 mg/dL F 1.3-2.7 Alkaline phosphatase [Enzymatic activity/volume] in Serum or Plasma 2022-11-07 03:39:53 60 U/L F 46.0-116.0 Alkaline phosphatase [Enzymatic activity/volume] in Serum or Plasma 2022-11-07 03:39:53 60 U/L F 46.0-116.0 Phosphate [Mass/volume] in Serum or Plasma 2022-11-07 03:39:53 7.9 mg/dL F 2.4-5.1 Magnesium [Mass/volume] in Serum or Plasma 2022-11-07 03:39:53 2 mg/dL F 1.3-2.7 Magnesium [Mass/volume] in Serum or Plasma 2022-11-07 03:39:53 2 mg/dL F 1.3-2.7 Phosphate [Mass/volume] in Serum or Plasma 2022-11-07 03:39:53 7.9 mg/dL F 2.4-5.1 Alkaline phosphatase [Enzymatic activity/volume] in Serum or Plasma 2022-11-07 03:39:53 60 U/L F 46.0-116.0 Parathyrin.intact [Mass/volume] in Serum or Plasma 2022-11-07 02:12:50 40 pg/mL F 18.0-80.0 Parathyrin.intact [Mass/volume] in Serum or Plasma 2022-11-07 02:12:50 40 pg/mL F 18.0-80.0 Parathyrin.intact [Mass/volume] in Serum or Plasma 2022-11-07 02:12:50 40 pg/mL F 18.0-80.0 Parathyrin.intact [Mass/volume] in Serum or Plasma 2022-11-07 02:12:50 40 pg/mL F 18.0-80.0 25-Hydroxyvitamin D3+25-Hydroxyvitamin D2 [Mass/volume] in Serum or Plasma 2022-11-07 02:04:03 34.6 ng/mL F 30.0-100.0 25-Hydroxyvitamin D3+25-Hydroxyvitamin D2 [Mass/volume] in Serum or Plasma 2022-11-07 02:04:03 34.6 ng/mL F 30.0-100.0 25-Hydroxyvitamin D3+25-Hydroxyvitamin D2 [Mass/volume] in Serum or Plasma 2022-11-07 02:04:03 34.6 ng/mL F 30.0-100.0 25-Hydroxyvitamin D3+25-Hydroxyvitamin D2 [Mass/volume] in Serum or Plasma 2022-11-07 02:04:03 34.6 ng/mL F 30.0-100.0 Modality Description Draw Date Result/Unit Status Ref Range Result Comments % DEXTROSE 2022-12-31 18:40:34 2.5 % F Nutrition Description Draw Date Result/Unit Status Ref Range Result Comments Potassium [Moles/volume] in Serum or Plasma 2024 06:43:41 3.5 mEq/L F 3.5-5.5 Potassium [Moles/volume] in Serum or Plasma 2024 06:43:41 3.5 mEq/L F 3.5-5.5 Potassium [Moles/volume] in Serum or Plasma 2024 06:43:41 3.5 mEq/L F 3.5-5.5 Potassium [Moles/volume] in Serum or Plasma 2024 06:43:41 3.5 mEq/L F 3.5-5.5 GLOBULIN 2024-11-07 14:42:13 2.7 g/dL F 0.9-5.0 LDL-CHOLESTEROL 2024-11-07 14:42:13 116 mg/dL F 0.0-99.0 A/G RATIO 2024-11-07 14:42:13 1.2 Calc F 1.0-2.5 CHOL/HDL RATIO 2024-11-07 14:42:13 4.6 Calc F 3.3-5.0 VLDL-CHOL(CALC) 2024-11-07 14:42:13 24 mg/dL F 0.0-29.0 GLOBULIN 2024-11-07 14:42:13 2.7 g/dL F 0.9-5.0 A/G RATIO 2024-11-07 14:42:13 1.2 Calc F 1.0-2.5 CHOL/HDL RATIO 2024-11-07 14:42:13 4.6 Calc F 3.3-5.0 VLDL-CHOL(CALC) 2024-11-07 14:42:13 24 mg/dL F 0.0-29.0 LDL-CHOLESTEROL 2024-11-07 14:42:13 116 mg/dL F 0.0-99.0 GLOBULIN 2024-11-07 14:42:13 2.7 g/dL F 0.9-5.0 A/G RATIO 2024-11-07 14:42:13 1.2 Calc F 1.0-2.5 LDL-CHOLESTEROL 2024-11-07 14:42:13 116 mg/dL F 0.0-99.0 VLDL-CHOL(CALC) 2024-11-07 14:42:13 24 mg/dL F 0.0-29.0 CHOL/HDL RATIO 2024-11-07 14:42:13 4.6 Calc F 3.3-5.0 GLOBULIN 2024-11-07 14:42:13 2.7 g/dL F 0.9-5.0 A/G RATIO 2024-11-07 14:42:13 1.2 Calc F 1.0-2.5 CHOL/HDL RATIO 2024-11-07 14:42:13 4.6 Calc F 3.3-5.0 VLDL-CHOL(CALC) 2024-11-07 14:42:13 24 mg/dL F 0.0-29.0 LDL-CHOLESTEROL 2024-11-07 14:42:13 116 mg/dL F 0.0-99.0 Bicarbonate [Moles/volume] in Serum or Plasma 2024-11-07 14:41:20 24 mEq/L F 20.0-31.0 Albumin [Mass/volume] in Serum or Plasma by Bromocresol green (BCG) dye binding method 2024-11-07 14:41:20 3.2 g/dL F 3.4-4.8 Protein [Mass/volume] in Serum or Plasma 2024-11-07 14:41:20 121 mg/dL F 0.0-149.0 Lactate dehydrogenase [Enzymatic activity/volume] in Serum or Plasma 2024-11-07 14:41:20 333 U/L F 120.0-246.0 Protein [Mass/volume] in Serum or Plasma 2024-11-07 14:41:20 5.9 g/dL F 5.7-8.2 Cholesterol in HDL [Mass/volume] in Serum or Plasma 2024-11-07 14:41:20 39 mg/dL F 40.0-60.0 Cholesterol [Mass/volume] in Serum or Plasma 2024-11-07 14:41:20 179 mg/dL F 0.0-199.0 Albumin [Mass/volume] in Serum or Plasma by Bromocresol green (BCG) dye binding method 2024-11-07 14:41:20 3.2 g/dL F 3.4-4.8 Protein [Mass/volume] in Serum or Plasma 2024-11-07 14:41:20 5.9 g/dL F 5.7-8.2 Protein [Mass/volume] in Serum or Plasma 2024-11-07 14:41:20 121 mg/dL F 0.0-149.0 Cholesterol [Mass/volume] in Serum or Plasma 2024-11-07 14:41:20 179 mg/dL F 0.0-199.0 Bicarbonate [Moles/volume] in Serum or Plasma 2024-11-07 14:41:20 24 mEq/L F 20.0-31.0 Cholesterol in HDL [Mass/volume] in Serum or Plasma 2024-11-07 14:41:20 39 mg/dL F 40.0-60.0 Lactate dehydrogenase [Enzymatic activity/volume] in Serum or Plasma 2024-11-07 14:41:20 333 U/L F 120.0-246.0 Albumin [Mass/volume] in Serum or Plasma by Bromocresol green (BCG) dye binding method 2024-11-07 14:41:20 3.2 g/dL F 3.4-4.8 Cholesterol [Mass/volume] in Serum or Plasma 2024-11-07 14:41:20 179 mg/dL F 0.0-199.0 Bicarbonate [Moles/volume] in Serum or Plasma 2024-11-07 14:41:20 24 mEq/L F 20.0-31.0 Protein [Mass/volume] in Serum or Plasma 2024-11-07 14:41:20 5.9 g/dL F 5.7-8.2 Cholesterol in HDL [Mass/volume] in Serum or Plasma 2024-11-07 14:41:20 39 mg/dL F 40.0-60.0 Lactate dehydrogenase [Enzymatic activity/volume] in Serum or Plasma 2024-11-07 14:41:20 333 U/L F 120.0-246.0 Protein [Mass/volume] in Serum or Plasma 2024-11-07 14:41:20 121 mg/dL F 0.0-149.0 Albumin [Mass/volume] in Serum or Plasma by Bromocresol green (BCG) dye binding method 2024-11-07 14:41:20 3.2 g/dL F 3.4-4.8 Protein [Mass/volume] in Serum or Plasma 2024-11-07 14:41:20 5.9 g/dL F 5.7-8.2 Protein [Mass/volume] in Serum or Plasma 2024-11-07 14:41:20 121 mg/dL F 0.0-149.0 Cholesterol [Mass/volume] in Serum or Plasma 2024-11-07 14:41:20 179 mg/dL F 0.0-199.0 Bicarbonate [Moles/volume] in Serum or Plasma 2024-11-07 14:41:20 24 mEq/L F 20.0-31.0 Cholesterol in HDL [Mass/volume] in Serum or Plasma 2024-11-07 14:41:20 39 mg/dL F 40.0-60.0 Lactate dehydrogenase [Enzymatic activity/volume] in Serum or Plasma 2024-11-07 14:41:20 333 U/L F 120.0-246.0 Potassium [Moles/volume] in Serum or Plasma 2024-09-23 08:02:25 4.4 mEq/L F 3.5-5.5 Potassium [Moles/volume] in Serum or Plasma 2024-09-23 08:02:25 4.4 mEq/L F 3.5-5.5 GLOBULIN 2024-09-23 01:41:30 2.5 g/dL F 0.9-5.0 A/G RATIO 2024-09-23 01:41:30 1.3 Calc F 1.0-2.5 GLOBULIN 2024-09-23 01:41:30 2.5 g/dL F 0.9-5.0 A/G RATIO 2024-09-23 01:41:30 1.3 Calc F 1.0-2.5 Albumin [Mass/volume] in Serum or Plasma by Bromocresol green (BCG) dye binding method 2024-09-23 01:40:16 3.3 g/dL F 3.4-4.8 Protein [Mass/volume] in Serum or Plasma 2024-09-23 01:40:16 5.8 g/dL F 5.7-8.2 Bicarbonate [Moles/volume] in Serum or Plasma 2024-09-23 01:40:16 25 mEq/L F 20.0-31.0 Lactate dehydrogenase [Enzymatic activity/volume] in Serum or Plasma 2024-09-23 01:40:16 372 U/L F 120.0-246.0 Protein [Mass/volume] in Serum or Plasma 2024-09-23 01:40:16 5.8 g/dL F 5.7-8.2 Albumin [Mass/volume] in Serum or Plasma by Bromocresol green (BCG) dye binding method 2024-09-23 01:40:16 3.3 g/dL F 3.4-4.8 Bicarbonate [Moles/volume] in Serum or Plasma 2024-09-23 01:40:16 25 mEq/L F 20.0-31.0 Lactate dehydrogenase [Enzymatic activity/volume] in Serum or Plasma 2024-09-23 01:40:16 372 U/L F 120.0-246.0 Potassium [Moles/volume] in Serum or Plasma 2024-08-27 07:41:17 4.3 mEq/L F 3.5-5.5 GLOBULIN 2024-08-26 21:22:16 2.7 g/dL F 0.9-5.0 A/G RATIO 2024-08-26 21:22:16 1.2 Calc F 1.0-2.5 Albumin [Mass/volume] in Serum or Plasma by Bromocresol green (BCG) dye binding method 2024-08-26 21:21:14 3.3 g/dL F 3.4-4.8 Protein [Mass/volume] in Serum or Plasma 2024-08-26 21:21:14 6 g/dL F 5.7-8.2 Bicarbonate [Moles/volume] in Serum or Plasma 2024-08-26 21:21:14 25 mEq/L F 20.0-31.0 Lactate dehydrogenase [Enzymatic activity/volume] in Serum or Plasma 2024-08-26 21:21:14 366 U/L F 120.0-246.0 Potassium [Moles/volume] in Serum or Plasma 2024-07-29 07:18:59 4 mEq/L F 3.5-5.5 GLOBULIN 2024-07-29 00:58:10 2.5 g/dL F 0.9-5.0 A/G RATIO 2024-07-29 00:58:10 1.3 Calc F 1.0-2.5 Albumin [Mass/volume] in Serum or Plasma by Bromocresol green (BCG) dye binding method 2024-07-29 00:57:25 3.3 g/dL F 3.4-4.8 Protein [Mass/volume] in Serum or Plasma 2024-07-29 00:57:25 5.8 g/dL F 5.7-8.2 Bicarbonate [Moles/volume] in Serum or Plasma 2024-07-29 00:57:25 24 mEq/L F 20.0-31.0 Lactate dehydrogenase [Enzymatic activity/volume] in Serum or Plasma 2024-07-29 00:57:25 355 U/L F 120.0-246.0 Potassium [Moles/volume] in Serum or Plasma 2024-07-01 06:02:24 3.9 mEq/L F 3.5-5.5 Potassium [Moles/volume] in Serum or Plasma 2024-07-01 06:02:24 3.9 mEq/L F 3.5-5.5 Potassium [Moles/volume] in Serum or Plasma 2024-07-01 06:02:24 3.9 mEq/L F 3.5-5.5 GLOBULIN 2024-06-30 17:32:10 2.7 g/dL F 0.9-5.0 A/G RATIO 2024-06-30 17:32:10 1.3 Calc F 1.0-2.5 GLOBULIN 2024-06-30 17:32:10 2.7 g/dL F 0.9-5.0 A/G RATIO 2024-06-30 17:32:10 1.3 Calc F 1.0-2.5 GLOBULIN 2024-06-30 17:32:10 2.7 g/dL F 0.9-5.0 A/G RATIO 2024-06-30 17:32:10 1.3 Calc F 1.0-2.5 Albumin [Mass/volume] in Serum or Plasma by Bromocresol green (BCG) dye binding method 2024-06-30 17:31:20 3.5 g/dL F 3.4-4.8 Protein [Mass/volume] in Serum or Plasma 2024-06-30 17:31:20 6.2 g/dL F 5.7-8.2 Bicarbonate [Moles/volume] in Serum or Plasma 2024-06-30 17:31:20 25 mEq/L F 20.0-31.0 Lactate dehydrogenase [Enzymatic activity/volume] in Serum or Plasma 2024-06-30 17:31:20 344 U/L F 120.0-246.0 Protein [Mass/volume] in Serum or Plasma 2024-06-30 17:31:20 6.2 g/dL F 5.7-8.2 Albumin [Mass/volume] in Serum or Plasma by Bromocresol green (BCG) dye binding method 2024-06-30 17:31:20 3.5 g/dL F 3.4-4.8 Bicarbonate [Moles/volume] in Serum or Plasma 2024-06-30 17:31:20 25 mEq/L F 20.0-31.0 Lactate dehydrogenase [Enzymatic activity/volume] in Serum or Plasma 2024-06-30 17:31:20 344 U/L F 120.0-246.0 Lactate dehydrogenase [Enzymatic activity/volume] in Serum or Plasma 2024-06-30 17:31:20 344 U/L F 120.0-246.0 Protein [Mass/volume] in Serum or Plasma 2024-06-30 17:31:20 6.2 g/dL F 5.7-8.2 Albumin [Mass/volume] in Serum or Plasma by Bromocresol green (BCG) dye binding method 2024-06-30 17:31:20 3.5 g/dL F 3.4-4.8 Bicarbonate [Moles/volume] in Serum or Plasma 2024-06-30 17:31:20 25 mEq/L F 20.0-31.0 GLOBULIN 2024-06-05 02:59:36 2.8 g/dL F 0.9-5.0 A/G RATIO 2024-06-05 02:59:36 1.3 Calc F 1.0-2.5 GLOBULIN 2024-06-05 02:59:36 2.8 g/dL F 0.9-5.0 A/G RATIO 2024-06-05 02:59:36 1.3 Calc F 1.0-2.5 Albumin [Mass/volume] in Serum or Plasma by Bromocresol green (BCG) dye binding method 2024-06-05 00:49:05 3.6 g/dL F 3.4-4.8 Protein [Mass/volume] in Serum or Plasma 2024-06-05 00:49:05 6.4 g/dL F 5.7-8.2 Bicarbonate [Moles/volume] in Serum or Plasma 2024-06-05 00:49:05 22 mEq/L F 20.0-31.0 Albumin [Mass/volume] in Serum or Plasma by Bromocresol green (BCG) dye binding method 2024-06-05 00:49:05 3.6 g/dL F 3.4-4.8 Bicarbonate [Moles/volume] in Serum or Plasma 2024-06-05 00:49:05 22 mEq/L F 20.0-31.0 Protein [Mass/volume] in Serum or Plasma 2024-06-05 00:49:05 6.4 g/dL F 5.7-8.2 Lactate dehydrogenase [Enzymatic activity/volume] in Serum or Plasma 2024-06-05 00:48:05 F Recollect - Hemolyzed specimen Potassium [Moles/volume] in Serum or Plasma 2024-06-05 00:48:05 F Recollect - Hemolyzed specimen Lactate dehydrogenase [Enzymatic activity/volume] in Serum or Plasma 2024-06-05 00:48:05 F Recollect - Hemolyzed specimen Potassium [Moles/volume] in Serum or Plasma 2024-06-05 00:48:05 F Recollect - Hemolyzed specimen GLOBULIN 2024-04-30 23:33:12 2.7 g/dL F 0.9-5.0 A/G RATIO 2024-04-30 23:33:12 1.3 Calc F 1.0-2.5 CHOL/HDL RATIO 2024-04-30 23:33:12 4.2 Calc F 3.3-5.0 VLDL-CHOL(CALC) 2024-04-30 23:33:12 23 mg/dL F 0.0-29.0 LDL-CHOLESTEROL 2024-04-30 23:33:12 110 mg/dL F 0.0-99.0 GLOBULIN 2024-04-30 23:33:12 2.7 g/dL F 0.9-5.0 A/G RATIO 2024-04-30 23:33:12 1.3 Calc F 1.0-2.5 CHOL/HDL RATIO 2024-04-30 23:33:12 4.2 Calc F 3.3-5.0 LDL-CHOLESTEROL 2024-04-30 23:33:12 110 mg/dL F 0.0-99.0 VLDL-CHOL(CALC) 2024-04-30 23:33:12 23 mg/dL F 0.0-29.0 LDL-CHOLESTEROL 2024-04-30 23:33:12 110 mg/dL F 0.0-99.0 VLDL-CHOL(CALC) 2024-04-30 23:33:12 23 mg/dL F 0.0-29.0 A/G RATIO 2024-04-30 23:33:12 1.3 Calc F 1.0-2.5 GLOBULIN 2024-04-30 23:33:12 2.7 g/dL F 0.9-5.0 CHOL/HDL RATIO 2024-04-30 23:33:12 4.2 Calc F 3.3-5.0 Albumin [Mass/volume] in Serum or Plasma by Bromocresol green (BCG) dye binding method 2024-04-30 23:32:39 3.6 g/dL F 3.4-4.8 Protein [Mass/volume] in Serum or Plasma 2024-04-30 23:32:39 6.3 g/dL F 5.7-8.2 Protein [Mass/volume] in Serum or Plasma 2024-04-30 23:32:39 114 mg/dL F 0.0-149.0 Cholesterol [Mass/volume] in Serum or Plasma 2024-04-30 23:32:39 175 mg/dL F 0.0-199.0 Bicarbonate [Moles/volume] in Serum or Plasma 2024-04-30 23:32:39 21 mEq/L F 20.0-31.0 Cholesterol in HDL [Mass/volume] in Serum or Plasma 2024-04-30 23:32:39 42 mg/dL F 40.0-60.0 Albumin [Mass/volume] in Serum or Plasma by Bromocresol green (BCG) dye binding method 2024-04-30 23:32:39 3.6 g/dL F 3.4-4.8 Protein [Mass/volume] in Serum or Plasma 2024-04-30 23:32:39 6.3 g/dL F 5.7-8.2 Protein [Mass/volume] in Serum or Plasma 2024-04-30 23:32:39 114 mg/dL F 0.0-149.0 Cholesterol [Mass/volume] in Serum or Plasma 2024-04-30 23:32:39 175 mg/dL F 0.0-199.0 Bicarbonate [Moles/volume] in Serum or Plasma 2024-04-30 23:32:39 21 mEq/L F 20.0-31.0 Cholesterol in HDL [Mass/volume] in Serum or Plasma 2024-04-30 23:32:39 42 mg/dL F 40.0-60.0 Albumin [Mass/volume] in Serum or Plasma by Bromocresol green (BCG) dye binding method 2024-04-30 23:32:39 3.6 g/dL F 3.4-4.8 Bicarbonate [Moles/volume] in Serum or Plasma 2024-04-30 23:32:39 21 mEq/L F 20.0-31.0 Protein [Mass/volume] in Serum or Plasma 2024-04-30 23:32:39 6.3 g/dL F 5.7-8.2 Cholesterol [Mass/volume] in Serum or Plasma 2024-04-30 23:32:39 175 mg/dL F 0.0-199.0 Protein [Mass/volume] in Serum or Plasma 2024-04-30 23:32:39 114 mg/dL F 0.0-149.0 Cholesterol in HDL [Mass/volume] in Serum or Plasma 2024-04-30 23:32:39 42 mg/dL F 40.0-60.0 Lactate dehydrogenase [Enzymatic activity/volume] in Serum or Plasma 2024-04-30 23:32:18 F Recollect - Hemolyzed specimen Potassium [Moles/volume] in Serum or Plasma 2024-04-30 23:32:18 F Recollect - Hemolyzed specimen Potassium [Moles/volume] in Serum or Plasma 2024-04-30 23:32:18 F Recollect - Hemolyzed specimen Lactate dehydrogenase [Enzymatic activity/volume] in Serum or Plasma 2024-04-30 23:32:18 F Recollect - Hemolyzed specimen Lactate dehydrogenase [Enzymatic activity/volume] in Serum or Plasma 2024-04-30 23:32:18 F Recollect - Hemolyzed specimen Potassium [Moles/volume] in Serum or Plasma 2024-04-30 23:32:18 F Recollect - Hemolyzed specimen Potassium [Moles/volume] in Serum or Plasma 2024-03-26 02:06:27 4.9 mEq/L F 3.5-5.5 Potassium [Moles/volume] in Serum or Plasma 2024-03-26 02:06:27 4.9 mEq/L F 3.5-5.5 GLOBULIN 2024-03-25 17:20:21 2.5 g/dL F 0.9-5.0 A/G RATIO 2024-03-25 17:20:21 1.3 Calc F 1.0-2.5 A/G RATIO 2024-03-25 17:20:21 1.3 Calc F 1.0-2.5 GLOBULIN 2024-03-25 17:20:21 2.5 g/dL F 0.9-5.0 Albumin [Mass/volume] in Serum or Plasma by Bromocresol green (BCG) dye binding method 2024-03-25 17:19:38 3.2 g/dL F 3.4-4.8 Protein [Mass/volume] in Serum or Plasma 2024-03-25 17:19:38 5.7 g/dL F 5.7-8.2 Bicarbonate [Moles/volume] in Serum or Plasma 2024-03-25 17:19:38 27 mEq/L F 20.0-31.0 Lactate dehydrogenase [Enzymatic activity/volume] in Serum or Plasma 2024-03-25 17:19:38 417 U/L F 120.0-246.0 Albumin [Mass/volume] in Serum or Plasma by Bromocresol green (BCG) dye binding method 2024-03-25 17:19:38 3.2 g/dL F 3.4-4.8 Lactate dehydrogenase [Enzymatic activity/volume] in Serum or Plasma 2024-03-25 17:19:38 417 U/L F 120.0-246.0 Bicarbonate [Moles/volume] in Serum or Plasma 2024-03-25 17:19:38 27 mEq/L F 20.0-31.0 Protein [Mass/volume] in Serum or Plasma 2024-03-25 17:19:38 5.7 g/dL F 5.7-8.2 Potassium [Moles/volume] in Serum or Plasma 2024-02-26 06:39:07 3.7 mEq/L F 3.5-5.5 GLOBULIN 2024-02-25 17:38:39 2.6 g/dL F 0.9-5.0 A/G RATIO 2024-02-25 17:38:39 1.2 Calc F 1.0-2.5 Albumin [Mass/volume] in Serum or Plasma by Bromocresol green (BCG) dye binding method 2024-02-25 17:38:35 3 g/dL F 3.4-4.8 Protein [Mass/volume] in Serum or Plasma 2024-02-25 17:38:35 5.6 g/dL F 5.7-8.2 Bicarbonate [Moles/volume] in Serum or Plasma 2024-02-25 17:38:35 28 mEq/L F 20.0-31.0 Lactate dehydrogenase [Enzymatic activity/volume] in Serum or Plasma 2024-02-25 17:38:35 369 U/L F 120.0-246.0 Potassium [Moles/volume] in Serum or Plasma 2024-01-25 07:23:57 3.7 mEq/L F 3.5-5.5 Potassium [Moles/volume] in Serum or Plasma 2024-01-25 07:23:57 3.7 mEq/L F 3.5-5.5 Potassium [Moles/volume] in Serum or Plasma 2024-01-25 07:23:57 3.7 mEq/L F 3.5-5.5 GLOBULIN 2024-01-24 16:31:51 2.5 g/dL F 0.9-5.0 A/G RATIO 2024-01-24 16:31:51 1.3 Calc F 1.0-2.5 GLOBULIN 2024-01-24 16:31:51 2.5 g/dL F 0.9-5.0 A/G RATIO 2024-01-24 16:31:51 1.3 Calc F 1.0-2.5 GLOBULIN 2024-01-24 16:31:51 2.5 g/dL F 0.9-5.0 A/G RATIO 2024-01-24 16:31:51 1.3 Calc F 1.0-2.5 Albumin [Mass/volume] in Serum or Plasma by Bromocresol green (BCG) dye binding method 2024-01-24 16:30:47 3.3 g/dL F 3.4-4.8 Protein [Mass/volume] in Serum or Plasma 2024-01-24 16:30:47 5.8 g/dL F 5.7-8.2 Bicarbonate [Moles/volume] in Serum or Plasma 2024-01-24 16:30:47 26 mEq/L F 20.0-31.0 Lactate dehydrogenase [Enzymatic activity/volume] in Serum or Plasma 2024-01-24 16:30:47 405 U/L F 120.0-246.0 Albumin [Mass/volume] in Serum or Plasma by Bromocresol green (BCG) dye binding method 2024-01-24 16:30:47 3.3 g/dL F 3.4-4.8 Protein [Mass/volume] in Serum or Plasma 2024-01-24 16:30:47 5.8 g/dL F 5.7-8.2 Bicarbonate [Moles/volume] in Serum or Plasma 2024-01-24 16:30:47 26 mEq/L F 20.0-31.0 Lactate dehydrogenase [Enzymatic activity/volume] in Serum or Plasma 2024-01-24 16:30:47 405 U/L F 120.0-246.0 Bicarbonate [Moles/volume] in Serum or Plasma 2024-01-24 16:30:47 26 mEq/L F 20.0-31.0 Albumin [Mass/volume] in Serum or Plasma by Bromocresol green (BCG) dye binding method 2024-01-24 16:30:47 3.3 g/dL F 3.4-4.8 Lactate dehydrogenase [Enzymatic activity/volume] in Serum or Plasma 2024-01-24 16:30:47 405 U/L F 120.0-246.0 Protein [Mass/volume] in Serum or Plasma 2024-01-24 16:30:47 5.8 g/dL F 5.7-8.2 Potassium [Moles/volume] in Serum or Plasma 2023-12-31 18:30:29 3.7 mEq/L F 3.5-5.5 Potassium [Moles/volume] in Serum or Plasma 2023-12-31 18:30:29 3.7 mEq/L F 3.5-5.5 Potassium [Moles/volume] in Serum or Plasma 2023-12-31 18:30:29 3.7 mEq/L F 3.5-5.5 GLOBULIN 2023-12-31 15:56:58 2.6 g/dL F 0.9-5.0 A/G RATIO 2023-12-31 15:56:58 1.3 Calc F 1.0-2.5 GLOBULIN 2023-12-31 15:56:58 2.6 g/dL F 0.9-5.0 A/G RATIO 2023-12-31 15:56:58 1.3 Calc F 1.0-2.5 A/G RATIO 2023-12-31 15:56:58 1.3 Calc F 1.0-2.5 GLOBULIN 2023-12-31 15:56:58 2.6 g/dL F 0.9-5.0 Protein [Mass/volume] in Serum or Plasma 2023-12-31 15:56:18 6.1 g/dL F 5.7-8.2 Protein [Mass/volume] in Serum or Plasma 2023-12-31 15:56:18 6.1 g/dL F 5.7-8.2 Protein [Mass/volume] in Serum or Plasma 2023-12-31 15:56:18 6.1 g/dL F 5.7-8.2 Albumin [Mass/volume] in Serum or Plasma by Bromocresol green (BCG) dye binding method 2023-12-31 15:56:16 3.5 g/dL F 3.4-4.8 Albumin [Mass/volume] in Serum or Plasma by Bromocresol green (BCG) dye binding method 2023-12-31 15:56:16 3.5 g/dL F 3.4-4.8 Albumin [Mass/volume] in Serum or Plasma by Bromocresol green (BCG) dye binding method 2023-12-31 15:56:16 3.5 g/dL F 3.4-4.8 Lactate dehydrogenase [Enzymatic activity/volume] in Serum or Plasma 2023-12-31 15:56:14 466 U/L F 120.0-246.0 Lactate dehydrogenase [Enzymatic activity/volume] in Serum or Plasma 2023-12-31 15:56:14 466 U/L F 120.0-246.0 Lactate dehydrogenase [Enzymatic activity/volume] in Serum or Plasma 2023-12-31 15:56:14 466 U/L F 120.0-246.0 Bicarbonate [Moles/volume] in Serum or Plasma 2023-12-31 15:56:12 27 mEq/L F 20.0-31.0 Bicarbonate [Moles/volume] in Serum or Plasma 2023-12-31 15:56:12 27 mEq/L F 20.0-31.0 Bicarbonate [Moles/volume] in Serum or Plasma 2023-12-31 15:56:12 27 mEq/L F 20.0-31.0 Potassium [Moles/volume] in Serum or Plasma 2023-11-30 20:53:33 3.9 mEq/L F 3.5-5.5 Potassium [Moles/volume] in Serum or Plasma 2023-11-30 20:53:33 3.9 mEq/L F 3.5-5.5 A/G RATIO 2023-11-30 16:06:55 1.3 Calc F 1.0-2.5 GLOBULIN 2023-11-30 16:06:55 2.6 g/dL F 0.9-5.0 GLOBULIN 2023-11-30 16:06:55 2.6 g/dL F 0.9-5.0 A/G RATIO 2023-11-30 16:06:55 1.3 Calc F 1.0-2.5 Protein [Mass/volume] in Serum or Plasma 2023-11-30 16:06:45 6.1 g/dL F 5.7-8.2 Bicarbonate [Moles/volume] in Serum or Plasma 2023-11-30 16:06:45 27 mEq/L F 20.0-31.0 Bicarbonate [Moles/volume] in Serum or Plasma 2023-11-30 16:06:45 27 mEq/L F 20.0-31.0 Protein [Mass/volume] in Serum or Plasma 2023-11-30 16:06:45 6.1 g/dL F 5.7-8.2 Albumin [Mass/volume] in Serum or Plasma by Bromocresol green (BCG) dye binding method 2023-11-30 16:06:43 3.5 g/dL F 3.4-4.8 Lactate dehydrogenase [Enzymatic activity/volume] in Serum or Plasma 2023-11-30 16:06:43 361 U/L F 120.0-246.0 Lactate dehydrogenase [Enzymatic activity/volume] in Serum or Plasma 2023-11-30 16:06:43 361 U/L F 120.0-246.0 Albumin [Mass/volume] in Serum or Plasma by Bromocresol green (BCG) dye binding method 2023-11-30 16:06:43 3.5 g/dL F 3.4-4.8 Potassium [Moles/volume] in Serum or Plasma 2023-11-02 08:09:38 4.1 mEq/L F 3.5-5.5 GLOBULIN 2023-11-02 02:56:44 2.7 g/dL F 0.9-5.0 A/G RATIO 2023-11-02 02:56:44 1.3 Calc F 1.0-2.5 CHOL/HDL RATIO 2023-11-02 02:56:44 4.7 Calc F 3.3-5.0 VLDL-CHOL(CALC) 2023-11-02 02:56:44 26 mg/dL F 0.0-29.0 LDL-CHOLESTEROL 2023-11-02 02:56:44 114 mg/dL F 0.0-99.0 Albumin [Mass/volume] in Serum or Plasma by Bromocresol green (BCG) dye binding method 2023-11-02 02:56:28 3.5 g/dL F 3.4-4.8 Protein [Mass/volume] in Serum or Plasma 2023-11-02 02:56:28 6.2 g/dL F 5.7-8.2 Protein [Mass/volume] in Serum or Plasma 2023-11-02 02:56:28 129 mg/dL F 0.0-149.0 Cholesterol [Mass/volume] in Serum or Plasma 2023-11-02 02:56:28 178 mg/dL F 0.0-199.0 Bicarbonate [Moles/volume] in Serum or Plasma 2023-11-02 02:56:28 27 mEq/L F 20.0-31.0 Cholesterol in HDL [Mass/volume] in Serum or Plasma 2023-11-02 02:56:28 38 mg/dL F 40.0-60.0 Lactate dehydrogenase [Enzymatic activity/volume] in Serum or Plasma 2023-11-02 02:56:28 378 U/L F 120.0-246.0 GLOBULIN 2023-08-31 16:42:39 2.4 g/dL F 0.9-5.0 A/G RATIO 2023-08-31 16:42:39 1.3 Calc F 1.0-2.5 Albumin [Mass/volume] in Serum or Plasma by Bromocresol green (BCG) dye binding method 2023-08-31 16:42:29 3.1 g/dL F 3.4-4.8 Protein [Mass/volume] in Serum or Plasma 2023-08-31 16:42:29 5.5 g/dL F 5.7-8.2 Potassium [Moles/volume] in Serum or Plasma 2023-08-31 16:42:29 4.1 mEq/L F 3.5-5.5 Bicarbonate [Moles/volume] in Serum or Plasma 2023-08-31 16:42:29 31 mEq/L F 20.0-31.0 Lactate dehydrogenase [Enzymatic activity/volume] in Serum or Plasma 2023-08-31 16:42:29 334 U/L F 120.0-246.0 A/G RATIO 2023-07-23 19:32:43 1.3 Calc F 1.0-2.5 GLOBULIN 2023-07-23 19:32:43 2.7 g/dL F 0.9-5.0 Lactate dehydrogenase [Enzymatic activity/volume] in Serum or Plasma 2023-07-23 19:32:35 323 U/L F 120.0-246.0 Potassium [Moles/volume] in Serum or Plasma 2023-07-23 19:32:35 3.4 mEq/L F 3.5-5.5 Albumin [Mass/volume] in Serum or Plasma by Bromocresol green (BCG) dye binding method 2023-07-23 19:32:35 3.5 g/dL F 3.4-4.8 Protein [Mass/volume] in Serum or Plasma 2023-07-23 19:32:35 6.2 g/dL F 5.7-8.2 Bicarbonate [Moles/volume] in Serum or Plasma 2023-07-23 19:32:35 29 mEq/L F 20.0-31.0 GLOBULIN 2023-07-09 21:47:54 2.7 g/dL F 0.9-5.0 A/G RATIO 2023-07-09 21:47:54 1.3 Calc F 1.0-2.5 A/G RATIO 2023-07-09 21:47:54 1.3 Calc F 1.0-2.5 GLOBULIN 2023-07-09 21:47:54 2.7 g/dL F 0.9-5.0 Albumin [Mass/volume] in Serum or Plasma by Bromocresol green (BCG) dye binding method 2023-07-09 21:47:39 3.6 g/dL F 3.4-4.8 Potassium [Moles/volume] in Serum or Plasma 2023-07-09 21:47:39 3.9 mEq/L F 3.5-5.5 Protein [Mass/volume] in Serum or Plasma 2023-07-09 21:47:39 6.3 g/dL F 5.7-8.2 Bicarbonate [Moles/volume] in Serum or Plasma 2023-07-09 21:47:39 28 mEq/L F 20.0-31.0 Lactate dehydrogenase [Enzymatic activity/volume] in Serum or Plasma 2023-07-09 21:47:39 336 U/L F 120.0-246.0 Lactate dehydrogenase [Enzymatic activity/volume] in Serum or Plasma 2023-07-09 21:47:39 336 U/L F 120.0-246.0 Potassium [Moles/volume] in Serum or Plasma 2023-07-09 21:47:39 3.9 mEq/L F 3.5-5.5 Albumin [Mass/volume] in Serum or Plasma by Bromocresol green (BCG) dye binding method 2023-07-09 21:47:39 3.6 g/dL F 3.4-4.8 Bicarbonate [Moles/volume] in Serum or Plasma 2023-07-09 21:47:39 28 mEq/L F 20.0-31.0 Protein [Mass/volume] in Serum or Plasma 2023-07-09 21:47:39 6.3 g/dL F 5.7-8.2 GLOBULIN 2023-05-24 14:56:13 2.6 g/dL F 0.9-5.0 A/G RATIO 2023-05-24 14:56:13 1.3 Calc F 1.0-2.5 Albumin [Mass/volume] in Serum or Plasma by Bromocresol green (BCG) dye binding method 2023-05-24 14:55:33 3.4 g/dL F 3.4-4.8 Potassium [Moles/volume] in Serum or Plasma 2023-05-24 14:55:33 4 mEq/L F 3.5-5.5 Protein [Mass/volume] in Serum or Plasma 2023-05-24 14:55:33 6 g/dL F 5.7-8.2 Bicarbonate [Moles/volume] in Serum or Plasma 2023-05-24 14:55:33 29 mEq/L F 20.0-31.0 Lactate dehydrogenase [Enzymatic activity/volume] in Serum or Plasma 2023-05-24 14:55:33 399 U/L F 120.0-246.0 A/G RATIO 2023-05-02 19:11:19 1.3 Calc F 1.0-2.5 GLOBULIN 2023-05-02 19:11:19 2.7 g/dL F 0.9-5.0 CHOL/HDL RATIO 2023-05-02 19:11:19 5 Calc F 3.3-5.0 VLDL-CHOL(CALC) 2023-05-02 19:11:19 24 mg/dL F 0.0-29.0 LDL-CHOLESTEROL 2023-05-02 19:11:19 127 mg/dL F 0.0-99.0 Potassium [Moles/volume] in Serum or Plasma 2023-05-02 19:10:49 3.5 mEq/L F 3.5-5.5 Protein [Mass/volume] in Serum or Plasma 2023-05-02 19:10:49 6.3 g/dL F 5.7-8.2 Albumin [Mass/volume] in Serum or Plasma by Bromocresol green (BCG) dye binding method 2023-05-02 19:10:49 3.6 g/dL F 3.4-4.8 Protein [Mass/volume] in Serum or Plasma 2023-05-02 19:10:49 118 mg/dL F 0.0-149.0 Cholesterol [Mass/volume] in Serum or Plasma 2023-05-02 19:10:49 189 mg/dL F 0.0-199.0 Bicarbonate [Moles/volume] in Serum or Plasma 2023-05-02 19:10:49 31 mEq/L F 20.0-31.0 Cholesterol in HDL [Mass/volume] in Serum or Plasma 2023-05-02 19:10:49 38 mg/dL F 40.0-60.0 Lactate dehydrogenase [Enzymatic activity/volume] in Serum or Plasma 2023-05-02 19:10:49 385 U/L F 120.0-246.0 GLOBULIN 2023-03-26 15:00:44 2.6 g/dL F 0.9-5.0 A/G RATIO 2023-03-26 15:00:44 1.4 Calc F 1.0-2.5 A/G RATIO 2023-03-26 15:00:44 1.4 Calc F 1.0-2.5 GLOBULIN 2023-03-26 15:00:44 2.6 g/dL F 0.9-5.0 Albumin [Mass/volume] in Serum or Plasma by Bromocresol green (BCG) dye binding method 2023-03-26 15:00:13 3.6 g/dL F 3.4-4.8 Protein [Mass/volume] in Serum or Plasma 2023-03-26 15:00:13 6.2 g/dL F 5.7-8.2 Potassium [Moles/volume] in Serum or Plasma 2023-03-26 15:00:13 3.5 mEq/L F 3.5-5.5 Bicarbonate [Moles/volume] in Serum or Plasma 2023-03-26 15:00:13 30 mEq/L F 20.0-31.0 Lactate dehydrogenase [Enzymatic activity/volume] in Serum or Plasma 2023-03-26 15:00:13 342 U/L F 120.0-246.0 Bicarbonate [Moles/volume] in Serum or Plasma 2023-03-26 15:00:13 30 mEq/L F 20.0-31.0 Lactate dehydrogenase [Enzymatic activity/volume] in Serum or Plasma 2023-03-26 15:00:13 342 U/L F 120.0-246.0 Albumin [Mass/volume] in Serum or Plasma by Bromocresol green (BCG) dye binding method 2023-03-26 15:00:13 3.6 g/dL F 3.4-4.8 Potassium [Moles/volume] in Serum or Plasma 2023-03-26 15:00:13 3.5 mEq/L F 3.5-5.5 Protein [Mass/volume] in Serum or Plasma 2023-03-26 15:00:13 6.2 g/dL F 5.7-8.2 GLOBULIN 2023-02-23 17:11:47 2.6 g/dL F 0.9-5.0 A/G RATIO 2023-02-23 17:11:47 1.3 Calc F 1.0-2.5 Albumin [Mass/volume] in Serum or Plasma by Bromocresol green (BCG) dye binding method 2023-02-23 17:11:17 3.5 g/dL F 3.4-4.8 Potassium [Moles/volume] in Serum or Plasma 2023-02-23 17:11:17 3.4 mEq/L F 3.5-5.5 Protein [Mass/volume] in Serum or Plasma 2023-02-23 17:11:17 6.1 g/dL F 5.7-8.2 Bicarbonate [Moles/volume] in Serum or Plasma 2023-02-23 17:11:17 30 mEq/L F 20.0-31.0 Lactate dehydrogenase [Enzymatic activity/volume] in Serum or Plasma 2023-02-23 17:11:17 431 U/L F 120.0-246.0 A/G RATIO 2023-01-25 23:12:41 1.3 Calc F 1.0-2.5 GLOBULIN 2023-01-25 23:12:41 2.6 g/dL F 0.9-5.0 Albumin [Mass/volume] in Serum or Plasma by Bromocresol green (BCG) dye binding method 2023-01-25 23:12:16 3.5 g/dL F 3.4-4.8 Potassium [Moles/volume] in Serum or Plasma 2023-01-25 23:12:14 3.8 mEq/L F 3.5-5.5 Protein [Mass/volume] in Serum or Plasma 2023-01-25 23:12:14 6.1 g/dL F 5.7-8.2 Bicarbonate [Moles/volume] in Serum or Plasma 2023-01-25 23:12:14 30 mEq/L F 20.0-31.0 Lactate dehydrogenase [Enzymatic activity/volume] in Serum or Plasma 2023-01-25 23:12:14 360 U/L F 120.0-246.0 GLOBULIN 2023-01-01 13:54:19 2.8 g/dL F 0.9-5.0 A/G RATIO 2023-01-01 13:54:19 1.3 Calc F 1.0-2.5 Bicarbonate [Moles/volume] in Serum or Plasma 2023-01-01 13:54:15 28 mEq/L F 20.0-31.0 Albumin [Mass/volume] in Serum or Plasma by Bromocresol green (BCG) dye binding method 2023-01-01 13:54:14 3.6 g/dL F 3.4-4.8 Potassium [Moles/volume] in Serum or Plasma 2023-01-01 13:54:14 3.9 mEq/L F 3.5-5.5 Protein [Mass/volume] in Serum or Plasma 2023-01-01 13:54:14 6.4 g/dL F 5.7-8.2 Lactate dehydrogenase [Enzymatic activity/volume] in Serum or Plasma 2023-01-01 13:54:14 349 U/L F 120.0-246.0 GLOBULIN 2022-12-02 00:55:23 2.6 g/dL F 0.9-5.0 A/G RATIO 2022-12-02 00:55:23 1.3 Calc F 1.0-2.5 Potassium [Moles/volume] in Serum or Plasma 2022-12-02 00:54:48 4.2 mEq/L F 3.5-5.5 Albumin [Mass/volume] in Serum or Plasma by Bromocresol green (BCG) dye binding method 2022-12-02 00:54:48 3.4 g/dL F 3.4-4.8 Protein [Mass/volume] in Serum or Plasma 2022-12-02 00:54:48 6 g/dL F 5.7-8.2 Bicarbonate [Moles/volume] in Serum or Plasma 2022-12-02 00:54:48 30 mEq/L F 20.0-31.0 Lactate dehydrogenase [Enzymatic activity/volume] in Serum or Plasma 2022-12-02 00:54:48 347 U/L F 120.0-246.0 GLOBULIN 2022-11-07 03:40:05 2.6 g/dL F 0.9-5.0 CHOL/HDL RATIO 2022-11-07 03:40:05 4.6 Calc F 3.3-5.0 A/G RATIO 2022-11-07 03:40:05 1.3 Calc F 1.0-2.5 VLDL-CHOL(CALC) 2022-11-07 03:40:05 20 mg/dL F 0.0-29.0 LDL-CHOLESTEROL 2022-11-07 03:40:05 115 mg/dL F 0.0-99.0 A/G RATIO 2022-11-07 03:40:05 1.3 Calc F 1.0-2.5 GLOBULIN 2022-11-07 03:40:05 2.6 g/dL F 0.9-5.0 CHOL/HDL RATIO 2022-11-07 03:40:05 4.6 Calc F 3.3-5.0 VLDL-CHOL(CALC) 2022-11-07 03:40:05 20 mg/dL F 0.0-29.0 LDL-CHOLESTEROL 2022-11-07 03:40:05 115 mg/dL F 0.0-99.0 LDL-CHOLESTEROL 2022-11-07 03:40:05 115 mg/dL F 0.0-99.0 CHOL/HDL RATIO 2022-11-07 03:40:05 4.6 Calc F 3.3-5.0 GLOBULIN 2022-11-07 03:40:05 2.6 g/dL F 0.9-5.0 A/G RATIO 2022-11-07 03:40:05 1.3 Calc F 1.0-2.5 VLDL-CHOL(CALC) 2022-11-07 03:40:05 20 mg/dL F 0.0-29.0 GLOBULIN 2022-11-07 03:40:05 2.6 g/dL F 0.9-5.0 A/G RATIO 2022-11-07 03:40:05 1.3 Calc F 1.0-2.5 CHOL/HDL RATIO 2022-11-07 03:40:05 4.6 Calc F 3.3-5.0 VLDL-CHOL(CALC) 2022-11-07 03:40:05 20 mg/dL F 0.0-29.0 LDL-CHOLESTEROL 2022-11-07 03:40:05 115 mg/dL F 0.0-99.0 Albumin [Mass/volume] in Serum or Plasma by Bromocresol green (BCG) dye binding method 2022-11-07 03:39:53 3.5 g/dL F 3.4-4.8 Potassium [Moles/volume] in Serum or Plasma 2022-11-07 03:39:53 3.2 mEq/L F 3.5-5.5 Protein [Mass/volume] in Serum or Plasma 2022-11-07 03:39:53 6.1 g/dL F 5.7-8.2 Cholesterol [Mass/volume] in Serum or Plasma 2022-11-07 03:39:53 173 mg/dL F 0.0-199.0 Protein [Mass/volume] in Serum or Plasma 2022-11-07 03:39:53 102 mg/dL F 0.0-149.0 Bicarbonate [Moles/volume] in Serum or Plasma 2022-11-07 03:39:53 29 mEq/L F 20.0-31.0 Cholesterol in HDL [Mass/volume] in Serum or Plasma 2022-11-07 03:39:53 38 mg/dL F 40.0-60.0 Lactate dehydrogenase [Enzymatic activity/volume] in Serum or Plasma 2022-11-07 03:39:53 396 U/L F 120.0-246.0 Albumin [Mass/volume] in Serum or Plasma by Bromocresol green (BCG) dye binding method 2022-11-07 03:39:53 3.5 g/dL F 3.4-4.8 Potassium [Moles/volume] in Serum or Plasma 2022-11-07 03:39:53 3.2 mEq/L F 3.5-5.5 Protein [Mass/volume] in Serum or Plasma 2022-11-07 03:39:53 6.1 g/dL F 5.7-8.2 Cholesterol [Mass/volume] in Serum or Plasma 2022-11-07 03:39:53 173 mg/dL F 0.0-199.0 Protein [Mass/volume] in Serum or Plasma 2022-11-07 03:39:53 102 mg/dL F 0.0-149.0 Bicarbonate [Moles/volume] in Serum or Plasma 2022-11-07 03:39:53 29 mEq/L F 20.0-31.0 Cholesterol in HDL [Mass/volume] in Serum or Plasma 2022-11-07 03:39:53 38 mg/dL F 40.0-60.0 Lactate dehydrogenase [Enzymatic activity/volume] in Serum or Plasma 2022-11-07 03:39:53 396 U/L F 120.0-246.0 Albumin [Mass/volume] in Serum or Plasma by Bromocresol green (BCG) dye binding method 2022-11-07 03:39:53 3.5 g/dL F 3.4-4.8 Lactate dehydrogenase [Enzymatic activity/volume] in Serum or Plasma 2022-11-07 03:39:53 396 U/L F 120.0-246.0 Bicarbonate [Moles/volume] in Serum or Plasma 2022-11-07 03:39:53 29 mEq/L F 20.0-31.0 Potassium [Moles/volume] in Serum or Plasma 2022-11-07 03:39:53 3.2 mEq/L F 3.5-5.5 Protein [Mass/volume] in Serum or Plasma 2022-11-07 03:39:53 6.1 g/dL F 5.7-8.2 Cholesterol [Mass/volume] in Serum or Plasma 2022-11-07 03:39:53 173 mg/dL F 0.0-199.0 Protein [Mass/volume] in Serum or Plasma 2022-11-07 03:39:53 102 mg/dL F 0.0-149.0 Cholesterol in HDL [Mass/volume] in Serum or Plasma 2022-11-07 03:39:53 38 mg/dL F 40.0-60.0 Albumin [Mass/volume] in Serum or Plasma by Bromocresol green (BCG) dye binding method 2022-11-07 03:39:53 3.5 g/dL F 3.4-4.8 Protein [Mass/volume] in Serum or Plasma 2022-11-07 03:39:53 6.1 g/dL F 5.7-8.2 Potassium [Moles/volume] in Serum or Plasma 2022-11-07 03:39:53 3.2 mEq/L F 3.5-5.5 Protein [Mass/volume] in Serum or Plasma 2022-11-07 03:39:53 102 mg/dL F 0.0-149.0 Cholesterol [Mass/volume] in Serum or Plasma 2022-11-07 03:39:53 173 mg/dL F 0.0-199.0 Bicarbonate [Moles/volume] in Serum or Plasma 2022-11-07 03:39:53 29 mEq/L F 20.0-31.0 Cholesterol in HDL [Mass/volume] in Serum or Plasma 2022-11-07 03:39:53 38 mg/dL F 40.0-60.0 Lactate dehydrogenase [Enzymatic activity/volume] in Serum or Plasma 2022-11-07 03:39:53 396 U/L F 120.0-246.0 Encounters No encounter information to report Immunizations Ordered Immunization Name Filled Immunization Name Date Status Comments Refusal Reason Influenza Vaccination 2024-08-25 06:00:00 TST-PPD intradermal 2024-03-23 13:45:00 TB RAQ 2024-03-23 05:00:00 Hep B, adult 2024-02-24 13:50:00 Hep B, adult 2023-10-31 14:55:00 Hep B, adult 2023-09-23 15:00:00 Hep B, adult 2023-08-30 13:35:00 TST-PPD intradermal 2023-03-25 15:15:00 Plan of Treatment Planned Activity Provider Planned Date Details Commen ts Diagnostic Test Pending Cricket Escalante 2024 07:28:28 Calcium [Mass/volume] in Serum or Plasma [code = 36257-7] Diagnostic Test Pending Cricket Escalante 2023-07-21 05:00:00 Alanine aminotransferase [Enzymatic activity/volume] in Serum or Plasma [code = 1742-6] Diagnostic Test Pending Cricket nidhi Nievescell 2022-10-21 06:00:00 Parathyrin.intact [Mass/volume] in Serum or Plasma [code = 2731-8] Diagnostic Test Pending Cricket Escalante 2022-10-21 06:00:00 Ferritin [Mass/volume] in Serum or Plasma [code = 2276-4] Diagnostic Test Pending Cricket Escalante 2022-10-21 06:00:00 25-Hydroxyvitamin D3+25-Hydroxyvitamin D2 [Mass/volume] in Serum or Plasma [code = 93973-3] Diagnostic Test Pending Cricket Escalante 2023-10-30 07:24:52 Hemoglobin [Mass/volume] in Blood [code = 718-7] Diagnostic Test Pending Cricket Escalante 2022-10-21 06:00:00 Aluminum [Mass/volume] in Serum or Plasma [code = 5574-9] Diagnostic Test Pending Cricket Escalante 2022-10-21 06:00:00 Reticulocytes/100 erythrocytes in Blood by Automated count [code = 16118-9] Diagnostic Test Pending Cricket Ez Escalante [facility] (PD) 2024-05-29 18:11:56 CCPD [code = VCO337] [facility] ([facility] September 18, 2022 Diet Calorie 35 kcal/kg Fluid Value 1200 mL/d Phosphorus Value 700 mg/d Potassium Value 3000 mg/d Protein Value 1.3 gm/kg Sodium Value 2000 mg/d Calculated Weight 49.5 kg
[2024-11-26 21:30] LABS: Basophils Percent Auto 0.5 % (0.2-1.2); Eosinophils Absolute Auto 0.3 K/mm3 (0-0.3); Eosinophils Percent Auto 3.6 % (0-4.4); Hematocrit 34.1 % (37.0-47.0); Hemoglobin 11.1 g/dL (12.0-15.0); Immature Granulocyte Absolute 0.02 K/mm3 (0.00-0.031); Immature Granulocyte Percent A 0.3 % (0-0.5); Lymphocytes Absolute Auto 0.59 K/mm3 (0.9-3.2); Lymphocytes Percent Auto 8.1 % (18.3-44.2); Mean Corpuscular HGB Conc 32.6 g/dl (32-36); Mean Corpuscular Hemoglobin 28.2 pg (26-34); Mean Corpuscular Volume 86.5 fl (80-100); Mean Platelet Volume 10.9 fl (7.4-10.4); Monocytes Absolute Auto 0.5 K/mm3 (0.1-0.6); Monocytes Percent Auto 7.4 % (2.6-8.5); Neutrophils Absolute Auto 5.9 K/mm3 (1.3-6.7); Neutrophils Percent Auto 80.1 % (45.5-73.1); Platelet Count Result 174 k/mm3 (150-375); Red Blood Count 3.94 M/mm3 (4.2-5.4); Red Cell Distribution Width 15.5 % (11.5-14.5); White Blood Count 7.3 K/mm3 (4.5-10.0)
[2024-11-26 21:39] LABS: Alanine Aminotransferase 16 U/L (6-35); Albumin Level 3.2 g/dL (3.5-5.1); Alkaline Phosphatase 83 U/L (38-126); Anion Gap 15 mmol/L (4-12); Aspartate Amino Transferase 33 U/L (14-36); Bilirubin,Total 0.5 mg/dL (0.2-1.3); Blood Urea Nitrogen 63 mg/dL (7-17); Calcium 6.8 mg/dL (8.4-10.2); Carbon Dioxide 22 mmol/L (22-30); Chloride 96 mmol/L (98-107); Estimated CRCL calculation 4 ml/min; Estimated Glomerular Filt Rate 3; Glucose 107 mg/dL (65-110); Lipase 220 U/L (23-300); Potassium 4.1 mmol/L (3.4-5.0); Sodium 133 mmol/L (137-145)
--- OUTSIDE RECORDS SUMMARY | 2024-11-27 02:07 | XMS_ITS | Clinical Summary ---
Author Organization [facility] Address [facility] [place] [address] Care Team Providers Care Field Sales Representative Name Role Phone Unavailable Primary Care Provider [...]
--- OUTSIDE RECORDS SUMMARY | 2024-11-27 02:09 | XMS_ITS | Clinical Summary ---
Author Organization [facility] [employer] Address [address] [place] [address] Care Team Providers Care Optical Store Manager Name Role Phone Danielle Hawkins Primary Care Provider Unavailabl e Source Comments [facility] [employer],non-owned Affiliates and Associated Physician Practices is amultiple site organization consisting of ambulatory clinics and hospital sitesin [place], [place], [place] and [place]. This disclosure is being madepursuant to the Care Everywhere program and may not contain all information available regarding this patient. Last updated 18.[facility] [employer] Allergies Active Allergy Reactions Criticality Noted Date [...] Comments Blood Pressure 145/91 09/06/2016 9:59 AM SHANK INSPECTOR Pulse 79 09/06/2016 9:59 AM SHANK INSPECTOR Temperature 36.4 C (97.5 F) 12/23/2015 3:20 PM SHANK INSPECTOR Respiratory Rate 12 09/06/2016 9:59 AM SHANK INSPECTOR Oxygen Saturation 100% 12/23/2015 3:20 PM SHANK INSPECTOR Inhaled Oxygen Concentration - - Weight 60.8 kg (134 lb) 09/06/2016 9:59 AM SHANK INSPECTOR Height 162.6 cm (5' 4 ) 09/06/2016 9:59 AM SHANK INSPECTOR Body Mass Index 23 09/06/2016 9:59 AM SHANK INSPECTOR Plan of Treatment Health Maintenance Due Date [...] age to complete this topic Care Teams Optical Store Manager Relationship Specialty Start Date End Date Danielle Hawkins Update Information PCP - General 04/29/15
--- OUTSIDE RECORDS SUMMARY | 2024-11-27 02:09 | XMS_ITS ---
Author Organization [facility] Address [address] [place] [address] Care Team Providers Care Traffic Coordinator Name Role Phone Quinton Rowan MD Unavailable [phone] Pal Downey DO Primary Care Provider + [phone] Tami Flores RN Unavailable [phone] Cricket Escalante MD Unavailable [phone] Gael Sprague MD PhD Unavailable Brad Turner MD Unavailable [phone] Margarita Montoya MD Unavailable Luca Lott MD Unavailable [phone] Pb Galloway MD Unavailable Felipe Gerber MD Unavailable Transplant Episode Kidney Candidate [facility] ([place], [place]) [facility] Center waitlisted on 09/05/2021 Marked as Inactive on 03/13/2024 Reason: 03 - Candidate Work-up Incomplete Kidney CoordinatorTami Flores RN Email: N/A Scores Score Value Updated Exceptions/Reas ons CPRA Not available EPTS (Calc) 27 11/27/2024 [place] Organ Diagnosis Organ Primary Contributory Kidney Polycystic Kidneys Care Team Name Role Phone Fax Email Tami Flores RN Kidney Coordinator [phone] N/A Mariann Bobo A And P Mechanic [phone] N/A N/A Events Pre-Transplant Referred: 10/06/2020 Evaluation began: 03/24/2021 Committee: 09/04/2021 Center waitlisted: 09/05/2021 Dialysis History Dialysis History Start End Type Comments Center 01/09/2022 Peritoneal [facility] Information Center Phone Fax Address [facility] [phone] [address]
--- OUTSIDE RECORDS SUMMARY | 2024-11-27 02:09 | XMS_ITS | Continuity of Care Document ---
Author Organization [facility] Address [address] [place] [address] [place] [address] Phone Care Team Providers Care Battery Tester Name Role Phone Ez Kc Unavailable Unavailable Procedures Procedure Date Office/outpatient Visit, Est Office/outpatient Visit, Est Advance Directives Directive Yes / No Effective Date File Name No Information Encounters Encounter Description Practice Location Reason(s) For Visit Diagnoses Date Provider Providers Copied on Encounter Office/outpat ient Visit, [facility], [address] [place] [address] [address], [place], [place], [id number], tel:[phone] [facility] No Information 0 Doisy Ez. [facility] , [address], [place], [place], [facility], [place]. tel:[phone] Office/outpat ient Visit, [facility], [address] [place] [address] [address], [place], [place], [id number], tel:[phone] [facility] No Information 0 Camara OD Дмитрий. [address] , [address], [place], [address], [place]. tel:[phone] Family History Family Member Type Diagnosis Age At Onset No Information Payers Payer name Insurance type Covered alliance party ID Authoriza tion(s) Medicaid [employer] [id number] Social History Type Description Quantity Date Captured Comments Sex Female Smoking Status No Information Chief Complaint And Reason For Visit No Information Reason For Referral Reason For Referral No Information History Of Present Illness Encounter Date Complaint History Of Prese nt Illness No Information Functional Status Date Functional Assessmen t No Information Instructions Date Instruction Additional Infor mation No Information Assessments Type Assessment Date No Information Patient Care Teams Name Effective Dates (start - stop) Status Members No Information
--- OUTSIDE RECORDS SUMMARY | 2024-11-27 02:09 | XMS_ITS | Clinical Summary ---
Author Organization [facility] Address [address] [place] [address] Care Team Providers Care Fermenter Name Role Phone Quinton Rowan MD Unavailable [phone] Pal Downey DO Primary Care Provider [phone] Tami Flores RN Unavailable Cricket Escalante MD Unavailable [phone] Gael Sprague MD PhD Unavailable Brad Turner MD Unavailable [phone] Margarita Montoya MD Unavailable [phone] Luca Medrano MD Unavailable [phone] Pb Galloway MD Unavailable Felipe Gerber MD Unavailable [phone] Allergies Active Allergy Reactions Criticality Noted [...] disease 07/08/2023 ESRD (end stage renal disease) ([facility]) 023 Assessment & Plan (05/21/2024 2:22 PM CDT): On peritoneal dialysis-management per renal team Chronic heart failure ([facility]) 08/02/2022 Assessment & Plan (05/24/2024 11:22 AM [...] telemetry, daily weights End stage renal disease ([facility]) 08/02/2022 Assessment & Plan (08/03/2022 9:30 AM CDT): -Hx of PCKD -Kidney transplant workup on hold until cardiac issues resolved -Started PD early 2021 -continue phoslo -renal consulted for PD assistance Shoulder pain 07/21/2022 Pre-transplant evaluation for end stage renal di sease 02/01/2022 Overview (02/01/2022): Added automatically from request for surgery [id number] Disorder of peritoneal dialysis catheter 022 Overview (12/22/2021): Added automatically from request for surgery [id number] Chronic kidney disease, stage V ([facility]) 2021 Overview (08/21/2023): Added automatically from request for surgery [id number] Sick sinus syndrome ([facility]) 11/02/2020 Diastolic heart failure 10/27/2019 S/P placement [...] TR NSTEMI (non-ST elevated myocardial infarction) ( [facility]) 02/07/2019 Assessment & Plan (05/12/2019 10:18 AM [...] Assessment & Plan (02/25/2019 11:43 AM CDT): [facility] with 95% LAD lesion, had some [...] Assessment & Plan (02/19/2019 2:08 AM CDT): [facility] with 95% LAD lesion, had some [...] Assessment & Plan (02/16/2019 11:38 PM CDT): [facility] with 95% LAD lesion, had some [...] to 4.35 - valve team consulted, 02/09 [facility] with severe 1 vessel disease of [...] (02/09/2019): Added automatically from request for surgery [id number] Assessment & Plan (05/17/2019 9:19 AM CDT): [...] (02/10/2019): Added automatically from request for surgery [id number] Assessment & Plan (05/24/2024 11:21 AM CDT): [...] with left shoulder pain similar to previous SC -EKG changes per OSH --Slight elevation in [...] currently stable Daily BMPs, while inpatient Home cork insulator helper is Dr. Escalante Continue lasix 40 mg [...] kidney disease, baseline Cr 2.4-2.6. F/b OSH cork insulator helper. Apparently discussions for potential need for renal txp being discussed. - Cr at baseline on adm - avoid nephrotoxins, renally dose meds - continue calcitriol 0.5 mcg/day - Cr 2.75, received pre-cath hydration, stable 2.7 Headache 05/02/2016 Moderate COPD (chronic obstr uctive pulmonary disease) ([facility]) 11/02/2015 Assessment & Plan (08/02/2022 5:33 PM [...] AM CDT): Hitesh TAVR 05/21 Followed by [facility], Dr. Medrano. CT TAVR [...] not a candidate for intervention [facility] Assessment & Plan (05/17/2019 [...] AV. Referred to valve team by primary lease administrator Dr. Rowan. Seen 02/02 by valve team [...] around 2.4 Dr Escalante is her home cork insulator helper Assessment & Plan (02/23/2019 12:20 PM CDT): Pt above POW by 2 kg. Lasix on hold due to elevation in Creatinine Baseline creat is around 2.4 Dr Escalante is her home cork insulator helper Agitation requiring sedation protocol 02/14/2019 02/23/2019 Acute [...] she had reactions to (?). Per OSH cork insulator helper's note in Care Everywhere, pt tried metoprolol [...] Department Care Team Description 11/19/2024 2:02 PM ORDERLY - 11/19/2024 3:42 PM ORDERLY Surgery [facility] [address] [place] [address] Luca Medrano MD LEFT HEART CATHETERIZATION WITH CORONARY ANGIOGRAPHY AND WITH OR WITHOUT LEFT VENTRICULOGRAM [id number] 11/19/2024 11:04 AM ORDERLY - 11/19/2024 7:20 PM ORDERLY Hospital Encounter [facility] [place] [address] [place] [address] Luca Medrano MD Coronary artery disease involving [place] coronary artery of [place] heart with angina pectoris (HCC) [I25.119] (Primary Dx); Chest pain, unspecified type Discharge Disposition: Discharge to home or self care 11/18/2024 11:45 AM ORDERLY Office Visit [facility] Cardiology [address] [place] [address] 8th [place] [address] [place] [address] Lane Ramos MD PhD SSS (sick sinus syndrome) (CMS/HCC) (HCC) (Primary Dx) 11/18/2024 11:15 AM ORDERLY Ancillary Procedure [facility] [address] [place] [address] 8th [place] [address] [place] [address] SSS (sick sinus syndrome) (CMS/HCC) (HCC) (Primary Dx); Fitting or adjustment of cardiac pacemaker 11/17/2024 Orders Only [facility] Scanning, Provider 11/10/2024 3:00 PM ORDERLY Ancillary Procedure [facility] [place] [facility] [address] [place] [address] Acute diastolic heart failure (CMS/HCC) (HCC) 11/10/2024 Telephone [facility]iology [address] [facility] Medical Office Building [address] [place] [address] Luca Medrano MD [facility] 11/05/2024 10:00 AM ORDERLY - 11/05/2024 11:59 PM ORDERLY Hospital Encounter [facility] [address] [place] [address] ESRD (end stage renal disease) (CMS/HCC) (HCC) Discharge Disposition: Discharge to home or self care 11/05/2024 Orders Only [facility] [address] [facility] 8th [place] [address] [place] [address] Luca Medrano MD 11/04/2024 11:30 AM ORDERLY Office Visit [facility] Cardiology [address] [facility] Medical Office Building [address] [place] [address] Luca Medrano MD Acute diastolic heart failure (CMS/HCC) (HCC) (Primary Dx); Chronic systolic heart failure (CMS/HCC) (HCC); Coronary artery disease involving [place] coronary artery of [place] heart with angina pectoris (HCC) 09/23/2024 Orders Only [facility] [address] [facility] [address] [id number] [place] [address] Tami Flores, RN ESRD (end stage renal disease) (CMS/HCC) (HCC) (Primary Dx) 09/20/2024 10:00 AM ORDERLY - 09/20/2024 11:59 PM ORDERLY Hospital Encounter [facility] [address] [place] [address] ESRD (end stage renal disease) (CMS/HCC) (HCC) Discharge Disposition: Discharge to home or self care 09/11/2024 Telephone [facility] [address] [facility] [address] [id number] [place] [address] Mariann Bobo 09/10/2024 Telephone [facility] [address] [facility] [address] [id number] [place] [address] Mariann Bobo from Last 3 Months Immunizations [...] s/p resection Coronary artery disease invo lving [place] heart 02/07/2019 Added automatically from req uest for surgery [id number] (LAD, LCA) Volume overload 02/14/2019 Leukocytosis 02/21/2019 Pleural effusion 02/2019 Status post lef t thoracostomy 02/27/2019 Hypothyroidism 01/2019 Postoperative Anemia Personal history of other me dical treatment History of combined restrictive/obstructive lung disease, A-fib ([facility]) ([facility]) 01/2019 Postoperat servando paroxysmal A. 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[facility]) Spinal stenosis Polycystic kidney disease ESRD on peritoneal dialysis ([facility]) ([facility]) Heart murmur SC (myocardial infarction) ([facility]) CHF (congestive heart failur e) ([facility]) ([facility]) Nausea 05/10/2019 Aortic valve insufficiency, acquired 05/19/2024 [...] on file Legal Sex Female 4:06 AM ORDERLY Gender Identity Female 01/16/2024 11:18 AM CDT Sexual Orientation Straight 01/16/2024 11 :18 AM CDT Obstetrics History Comments Status Post Hysterectomy Last Filed Vital Signs Vital Sign Reading Time Taken Comments Blood Pressure 130/75 11/19/2024 7:05 PM ORDERLY Pulse 71 11/19/2024 7:05 PM ORDERLY Temperature 36.6 C (97.9 F) 11/19/2024 11:25 AM ORDERLY Respiratory Rate 21 11/19/2024 7:05 PM ORDERLY Oxygen Saturation 94% 11/19/2024 7:05 PM ORDERLY Inhaled Oxygen Concentration - - Weight 52.8 kg (116 lb 6.5 oz) 11/19/2024 11:25 AM ORDERLY Height 162.6 cm (5' 4 ) 11/19/2024 11:25 AM ORDERLY Body Mass Index 19.98 11/19/2024 11:25 AM ORDERLY Plan of Treatment Scheduled Procedures Name Priority [...] 03/06/2023, 021 Medical Devices Implanted Type Area Mail Service Coordinator Device Identifier Shelf Expiration Date Model / Serial / Lot Angio-Seal Evolution 6fr Vascular Closure [id number] - [id number] - [id number] Implanted:Qty: 1 on 03/09/2022 by Luca Medrano MD at [facility] Collagen Right: Femoral [employer] Pam 09/19/2022 [id number] / [id number] / [id number] [employer] Pam Angio-Seal Vip 6fr Closere Device [id number] - [id number] - [id number] Implanted:Qty: 1 on 07/24/2022 by Luca Medrano MD at [facility] Collagen [employer] Pam 03/20/2023 [id number] / [id number] / [id number] [employer] Pam Angio-Seal Vip 6fr Closere Device [id number] - [id number] - [id number] Implanted:Qty: 1 on 05/21/2024 at [facility] Collagen Right: Common Femoral Artery [employer] Pam 01/09/2025 [id number] / [id number] / [id number] [employer] Pam Angio-Seal Vip [place]-Plus 8fr .038in 70cm Hemostatic Latex Free 223924 - [id number] - [id number] Implanted:Qty: 1 on 05/21/2024 by Felipe Gerber MD at [facility] Collagen Right: Common Femoral Artery [employer] Pam 01/06/2025 [id number] / [id number] / [id number] Medtronic Cardiac Rhythm Mgmt 5076-52 Capsurefix Novus 6.2fr 2mm 52cm Bipolar Screw In Implantable Latex Free - [id number] - [id number] Implanted:Qty: 1 on 05/15/[address] Ramos MD PhD at [facility] Lead Medtronic Inc 03/11/2021 5076-52 / [id number] / Medtronic Cardiac Rhythm Mgmt 5076-45 Capsurefix Novus 6.2fr 2mm 45cm Bipolar Screw In Implantable - [id number] - [id number] Implanted:Qty: 1 on 05/15/[address] Ramos MD PhD at [facility] Lead Medtronic Inc 03/30/2021 5076-45 / [id number] / [employer] ([employer]) 8956-48-4918-01 Linear 7.5fr 6in Insertion Kit [employer]i Truck Driver Introducer Sheath - [id number] Implanted:Qty: 1 on 02/10/2019 by Luca Medrano MD at [facility] Other - see comments [employer] ([employer]) 0684-00 -[id number] / / Description:IABP Medtronic Inc [id number] [place] Curl Cath Beta-Cap Holden 15fr 57cm 2 Cuff Clamp Adapter - S0 - [id number] Implanted:Qty: 1 on 11/21/2021 by Carlos Kamara MD at [facility] Other - see comments N/A: Abdomen Medtronic Inc 11/30/2022 8811-31 3015 / 0 / [id number] Medtronic Cardiac Rhythm Mgmt W1dr01 [place] Wirelessly Pacemaker Cardiac - [id number] - [id number] Implanted:Qty: 1 on 05/15/[address] Ramos MD PhD at [facility] Pacemaker Medtronic Inc [id number] 09/17/2020 [id number] / [id number] / Jamil [employer] Valve Aortic Trnscath Brown 3 Ultra Resilia 20mm [id number] - [id number] - [id number] Implanted:Qty: 1 on 05/21/2024 by Felipe Gerber MD at [facility] Prosthetic Valve N/A: Aortic Valve [employer] 02/27/2027 [id number] 20A / [id number] / Medtronic Inc Resolute [place] 4mm 2.1-2.7fr 12mm 140cm Rapid Exchange Radiopaque [id number] - [id number] - [id number] Implanted:Qty: 1 on 03/09/2022 by Luca Medrano MD at [facility] Stent Left: Coronary Medtronic Inc 12/06/2022 [id number] / [id number] / [id number] Description:LAD [employer]otronik Inc Stent Coronary De Rx Cocr Ors Msn 4.0x15mm 736189 - [id number] - [id number] Implanted:Qty: 1 on 07/24/2022 by Luca Medrano MD at [facility] Stent [employer] Inc 09/05/2023 [id number] / [id number] / [id number] Medtronic [facility] Surgery 4.0 X 15mm [place] Rx Coronary Stent [id number] - [id number] - [id number] Implanted:Qty: 1 on 11/19/2024 by Luca Medrano MD at [facility] Stent N/A: Saphenous Vein Graft Medtronic Card Vas Surgery 05/05/2027 [id number] / [id number] / [id number] Painter Vascular System Closure Repair Femoral Artery Suture Mediated Perclose Prostyle 79694-90 - [id number] - [id number] Implanted:Qty: 1 on 05/21/2024 by Felipe Gerber MD at [facility] Vascular Closure Device Left: Common Femoral Artery Painter Vascular 02/17/2026 23047-4 3 / [id number] / [id number] [employer] Pam Angio-Seal Vip 6fr Closere Device [id number] - [id number] - [id number] Implanted:Qty: 1 on 11/19/2024 by Luca Medrano MD at [facility] Vascular Closure Device N/A: Saphenous Vein Graft [employer] Pam 04/29/2025 [id number] / [id number] / [id number] Sotelo [employer] Pam [id number] Supple Ronna-Guard [place] Processing 4x4cm Patch Cardiovascular - [id number] - [id number] Implanted:Qty: 1 on 02/11/2019 by Christopher Holman MD at [facility] N/A: Chest [employer] Pam 06/03/2023 [id number] / 3211-04 0010 / [id number] [employer] [id number] Certitude Brown 3 Atrion 18fr Transcatheter Introducer Crimper - [id number] - [id number] Implanted:Qty: 1 on 02/11/2019 by Christopher Holman MD at [facility] N/A: Heart [employer] [id number] [id number] / [id number] / Medtronic Inc [id number] [place] Curl Cath Beta-Cap Holden 15fr 57cm 2 Cuff Clamp Adapter - [id number] Implanted:Qty: 1 on 12/27/2021 by Margarita Montoya MD at [facility] N/A: Abdomen Medtronic Inc 10/14/2023 8811-31 3015 / / Procedures Procedure Name Priority Date/Time Associated Diagnosis Comments EGFR Routine 11/19/2024 6:00 PM ORDERLY DIFFERENTIAL AUTO Routine 11/19/2024 6:0 0 PM ORDERLY CBC WITH AUTO DIFFERENTIAL Routine 11/19/2024 6:00 PM ORDERLY BASIC METABOLIC PANEL Routine 11/19/2024 6:00 PM ORDERLY POCT ACTIVATED CLOTTING TIME, LOW RANGE Routine 11/19/2024 4:42 PM ORDERLY POCT ACTIVATED CLOTTING TIME, LOW RANGE Routine 11/19/2024 3:23 PM ORDERLY LEFT HEART CATHETERIZATION WITH CORONARY ANGIOGRAPHY AND WITH AND WITHOUT LEFT VENTRICULOGRAM Routine 11/19/2024 2:50 PM ORDERLY Chest pain, unspecified type POCT ACTIVATED CLOTTING TIME, LOW RANGE Routine 11/19/2024 2:49 PM ORDERLY POCT ACTIVATED CLOTTING TIME, LOW RANGE Routine 11/19/2024 2:30 PM ORDERLY POCT ACTIVATED CLOTTING TIME, LOW RANGE Routine 11/19/2024 2:01 PM ORDERLY TYPE AND SCREEN Timed 11/19/2024 2:01 PM ORDERLY POCT ACTIVATED CLOTTING TIME, LOW RANGE Routine 11/19/2024 1:53 PM ORDERLY POCT ACTIVATED CLOTTING TIME, LOW RANGE Routine 11/19/2024 1:49 PM ORDERLY POCT OXYHEMOGLOBIN - DEVICE Routine 11/19/2024 1:27 PM ORDERLY POCT OXYHEMOGLOBIN - DEVICE Routine 11/19/2024 1:26 PM ORDERLY POCT OXYHEMOGLOBIN - DEVICE Routine 11/19/2024 1:26 PM ORDERLY POC BLOOD GAS AND CHEMISTRIES, ARTERIAL Routine 11/19/2024 11:45 AM ORDERLY ECG 12-LEAD Routine 11/19/2024 11:16 AM ORDERLY SCAN - LABS 11/17/2024 CBC WITH AUTO DIFFERENTIAL Routine 11/16/2024 1:57 PM ORDERLY S/P TAVR (transcatheter aortic valve replacement) Chest pain, unspecified type BASIC METABOLIC PANEL Routine 11/16/2024 1:57 PM ORDERLY S/P TAVR (transcatheter aortic valve replacement) Chest pain, unspecified type TRANSTHORACIC ECHO (TTE) COMPLETE W DOPPLER/CF W CONTRAST Routine 11/10/2024 4:05 PM ORDERLY Acute diastolic heart failure (CMS/HCC) (HCC) HLA ANTIBODY SCREEN BY PRA OR SAB PER SCHEDULE (CLASS I AND CLASS II) Routine 11/05/2024 10:00 AM ORDERLY ESRD (end stage renal disease) (CMS/HCC) (HCC) HLA ANTIBODY SCREEN - SAB (CLASS I AND CLASS II) Routine 09/20/2024 10:00 AM ORDERLY ESRD (end stage renal disease) (CMS/HCC) (HCC) HLA ANTIBODY SCREEN BY PRA OR SAB PER SCHEDULE (CLASS I AND CLASS II) Routine 09/20/2024 10:00 AM ORDERLY ESRD (end stage renal disease) (CMS/HCC) (HCC) HEPATITIS C ANTIBODY Routine 03/06/2023 10:19 AM CDT ESRD (end stage renal disease) (CMS/HCC) (HCC) from Last 3 Months or Most Recently Relevant to Health Maintenance Results * (ABNORMAL) eGFR (11/19/2024 6:00 PM ORDERLY) eGFR 3(L) >=60 mL/min/1. 73 m2 Comment: [...] last reviewed 2021. Blood 11/19/2024 6:00 PM ORDERLY 11/19/2024 6:10 PM ORDERLY us Luca Medrano MD LAB BLOOD ORDERABLES Final R esult NONAEWW [facility] Department [place] [address] * (ABNORMAL) Differential, auto (11/19/2024 6:00 PM ORDERLY) Neutrophil abs 6.5 1.5 - 6.5 K/cumm Imm gran abs 0.0 0.0 - 0.1 K/cumm [facility] Lymphocyte abs 0.5(L) 0.8 - 3.3 K/cumm [facility] Monocyte abs 0.3 0.2 - 0.8 K/cumm [facility] Eosinophil abs 0.1 0.0 - 0.5 K/cumm [facility] Basophil abs 0.0 0.0 - 0.1 K/cumm [facility] Neutrophil pct 87.7 % [facility] Comment: Interpretive Data Percent cell count reference ranges are not reported, since discordance with absolute values may lead to misinterpretation of CBC data. Current Interpretive Data was last revised on 2018. Imm gran pct 0.3 % [facility] Comment: Interpretive Data Percent cell count reference ranges are not reported, since discordance with absolute values may lead to misinterpretation of CBC data. Current Interpretive Data was last revised on 2018. Lymphocyte pct 6.8 % [facility] Comment: Interpretive Data Percent cell count reference ranges are not reported, since discordance with absolute values may lead to misinterpretation of CBC data. Current Interpretive Data was last revised on 2018. Monocyte pct 3.4 % [facility] Comment: Interpretive Data Percent cell count reference ranges are not reported, since discordance with absolute values may lead to misinterpretation of CBC data. Current Interpretive Data was last revised on 2018. Eosinophil pct 1.5 % [facility] Comment: Interpretive Data Percent cell count reference ranges are not reported, since discordance with absolute values may lead to misinterpretation of CBC data. Current Interpretive Data was last revised on 2018. Basophil pct 0.3 % [facility] Comment: Interpretive Data Percent cell count reference ranges are not reported, since discordance with absolute values may lead to misinterpretation of CBC data. Current Interpretive Data was last revised on 2018. Blood 11/19/2024 6:00 PM ORDERLY 11/19/2024 6:04 PM ORDERLY us Luca Medrano MD LAB BLOOD ORDERABLES Final R esult Performing Organization Address City/[facility]/ZIP Co de Phone Number [facility] Department [place] [address] * (ABNORMAL) CBC with auto differential (11/19/2024 6:00 PM ORDERLY) [facility] WBC 7.4 3.8 - 9.9 K/cumm Hgb 11.6(L) 11.9 - 15.5 g/dL [facility] Hct 36.7 35.6 - 45.5 % [facility] Plt 150 150 - 400 K/cumm [facility] MPV 10.6 9.1 - 12.3 fL [facility] RBC 4.22 3.90 - 5.20 M/cumm [facility] MCV 87.0 81.3 - 96.4 fL [facility] MCH 27.5 27.1 - 33.3 pg [facility] MCHC 31.6(L) 32.3 - 35.7 g/dL [facility] RDW CV 14.6 11.1 - 14.9 % [facility] RDW SD 46.1 35.7 - 48.1 fL [facility] NRBC abs 0.00 0.00 - 0.01 K/cumm [facility] Blood 11/19/2024 6:00 PM ORDERLY 11/19/2024 6:04 PM ORDERLY us Luca Medrano MD LAB BLOOD ORDERABLES Final R esult [facility] Department [place] [address] * (ABNORMAL) Basic metabolic panel (11/19/2024 6:00 PM ORDERLY) Pathologist [facility] Sodium 130(L) 135 - 145 mmol/L Potassium, pl 4.3 3.3 - 4.9 mmol/L [facility] Chloride 90(L) 97 - 110 mmol/L [facility] CO2 23 22 - 32 mmol/L [facility] Anion gap 17(H) 2 - 15 mmol/L [facility] BUN 57(H) 6 - 25 mg/dL [facility] Creatinine 13.87(H) 0.60 - 1.10 mg/dL [facility] Glucose 150 70 - 199 mg/dL [facility] Comment: Interpretive Data Fasting glucose >/= [...] 2022. Calcium 6.9(L) 8.5 - 10.3 mg/dL [facility] Blood 11/19/2024 6:00 PM ORDERLY 11/19/2024 6:04 PM ORDERLY Luca Medrano MD LAB BLOOD ORDERABLES Final R esult Performing Organization Address City/[facility]/ZIP Co de Phone Number [facility] [place] [address] * (ABNORMAL) POCT Activated clotting time, low range (11/19/2024 4:42 PM ORDERLY) ACT 171(H) 123 - 168 sec POC Performer [id number] [facility] POC Device Number [id number] [facility] Blood 11/19/2024 4:42 PM ORDERLY 11/19/2024 4:42 PM ORDERLY Luca Medrano MD LAB POCT ORDERABLES - DEVICE Final Result Performing Organization Address City/[facility]/ZIP Co de Phone Number [facility] [place] [address] * (ABNORMAL) POCT Activated clotting time, low range (11/19/2024 3:23 PM ORDERLY) ACT 266(H) 123 - 168 sec POC Performer [id number] [facility] POC Device Number [id number] [facility] Blood 11/19/2024 3:23 PM ORDERLY 11/19/2024 3:23 PM ORDERLY us Luca Medrano MD LAB POCT ORDERABLES - DEVICE Final Result [facility] Department [place] [address] * LEFT HEART CATHETERIZATION WITH CORONARY ANGIOGRAPHY AND WITH AND WITHOUT LEFT VENTRICULOGRAM (11/19/2024 2:50 PM ORDERLY) Anatomical Region Laterality Modality X-Ray Angiograph y Impressions 11/19/2024 4:18 PM ORDERLY Very severe stenosis of the vein graft [...] attempt intervention again. I would suggest a [place] 1 0 guiding catheter and consideration for shockwave versus atherectomy. I was present during the entire procedure and personally dictated or confirmed the above report. Luca Medrano MD Narrative 11/19/2024 4:18 PM ORDERLY Procedure: CORONARY ANGIOGRAM / RIGHT HEART CATHETERIZATION/percutaneous coronary intervention Patient: Estuardo Copeland is a 54 y.o. female : 1970 MR number: [id number] Date of Service: 11/19/2024 Director [facility]: Luca Medrano MD Fellow: Josesito Pabon MD [...] obtained. The patient was brought to the cemetery laborer and placed on the table Bilateral [...] coronary artery angiogram performed using a 6 Congolese JR4 catheter Right heart catheterization preformed with TD [place] Percutaneous coronary intervention performed on the Proximal saphenous vein graft to the LAD. This was an ACC/AHA Type C. Initial Lesion Length 12mm and final lesion Length 15mm. Initial KAROLINA Flow 3 with visible thrombus present Final KAROLINA Flow 3. Equipment used: 6 3DRC, [employer] IVUS Catheter, scion blue wire, 0.9 mm laser atherectomy catheter, 2 5 x 15 NC emerge balloon, a 3 0 x 12 mm AngioSculpt balloon, 4 0 by 15 NC emerge balloon, 4 0 x 15 resolute drug-eluting stent, 4 5 x 12 mm NC emerge balloon Attempted intervention on the ostial left main equipment used was a 6 Congolese JL 3.5 guiding catheter, she on black [...] than 300. We took up a 6 Congolese 3D RC that sat reasonably well in [...] or perforation. We then took our 6 Congolese JL 3.5 guiding catheter attempted to intubate [...] right femoral artery and placed a 6 Congolese Angio-Seal. Manual compression was performed on the venous sheath. COMPLICATIONS: None DIAGNOSTIC us Luca Medrano MD CV CARDIAC CATH PROCEDURES F inal Result * (ABNORMAL) POCT Activated clotting time, low range (11/19/2024 2:49 PM ORDERLY) [employer] ACT 260(H) 123 - 168 sec POC Performer [id number] [facility] POC Device Number [id number] [facility] Blood 11/19/2024 2:49 PM ORDERLY 11/19/2024 2:49 PM ORDERLY us Luca Medrano MD LAB POCT ORDERABLES - DEVICE Final Result [facility] DOMING[facility] Department [place] [address] * (ABNORMAL) POCT Activated clotting time, low range (11/19/2024 2:30 PM ORDERLY) ACT 385(H) 123 - 168 sec POC Performer [id number] [facility] POC Device Number [id number] [facility] Blood 11/19/2024 2:30 PM ORDERLY 11/19/2024 2:30 PM ORDERLY Luca Medrano MD LAB POCT ORDERABLES - DEVICE Final Result Performing Organization Address [facility] de Phone Number [facility] [address] * (ABNORMAL) POCT Activated clotting time, low range (11/19/2024 2:01 PM ORDERLY) ACT >400(H) 123 - 168 sec POC Performer [id number] [facility] POC Device Number [id number] [facility] Blood 11/19/2024 2:01 PM ORDERLY 11/19/2024 2:01 PM ORDERLY Luca Medrano MD LAB POCT ORDERABLES - DEVICE Final Result Performing Organization Address [facility] de Phone Number [place] [address] * Type and screen (11/19/2024 2:01 PM ORDERLY) Pathologist [facility] ABO Rh B Positive Jorge A, indirect Negative [facility] Blood 11/19/2024 2:01 PM ORDERLY 11/19/2024 2:14 PM ORDERLY Narrative [facility] - 11/19/2024 3:08 PM ORDERLY Has the patient had Daratumumab or Isatuximab in the past 6 months?->Unknown Luca Medrano MD LAB BLOOD BANK TEST ORDERABL ES Final Result Performing Organization Address [facility] Co de Phone Number [place] [address] * (ABNORMAL) POCT Activated clotting time, low range (11/19/2024 1:53 PM ORDERLY) Pathologist [facility] ACT >400(H) 123 - 168 sec POC Performer [id number] [facility] POC Device Number [id number] [facility] Blood 11/19/2024 1:53 PM ORDERLY 11/19/2024 1:53 PM ORDERLY us Luca Medrano MD LAB POCT ORDERABLES - DEVICE Final Result Performing Organization Address [facility] de Phone Number [facility] [address] * (ABNORMAL) POCT Activated clotting time, low range (11/19/2024 1:49 PM ORDERLY) [facility] ACT 78(L) 123 - 168 sec POC Performer [id number] [facility] POC Device Number [id number] [facility] Blood 11/19/2024 1:49 PM ORDERLY 11/19/2024 1:49 PM ORDERLY Luca Medrano MD LAB POCT ORDERABLES - DEVICE Final Result Performing Organization Address [facility] de Phone Number [facility] [place] [address] * (ABNORMAL) POCT oxyhemoglobin (11/19/2024 1:27 PM ORDERLY) [facility] [employer] Oxyhemoglobin 91.6 >=65.0 % [facility] [facility] Hemoglobin 11.2(L) 11.9 - 15.5 g/dL [facility] [employer] O2 content 14.3(L) 15.0 - 22.0 Vol % [facility] Anatomic Site aPOC Aorta [facility] Blood 11/19/2024 1:27 PM ORDERLY 11/19/2024 1:27 PM ORDERLY Luca Medrano MD LAB POCT ORDERABLES - DEVICE Final Result Performing Organization Address [facility] de Phone Number CERN[facility] [place] [address] * (ABNORMAL) POCT oxyhemoglobin (11/19/2024 1:26 PM ORDERLY) [facility] [employer] Oxyhemoglobin 56.2(L) >=65.0 % [facility] Hemoglobin 11.0(L) 11.9 - 15.5 g/dL [facility] [employer] O2 content 8.6(L) 15.0 - 22.0 Vol % [facility] Anatomic Site aPOC Pulm Artery [facility] Blood 11/19/2024 1:26 PM ORDERLY 11/19/2024 1:26 PM ORDERLY us Luca Medrano MD LAB POCT ORDERABLES - DEVICE Final Result Performing Organization Address City/[facility]/[place] [address] * (ABNORMAL) POCT oxyhemoglobin (11/19/2024 1:26 PM ORDERLY) [facility] [employer] Oxyhemoglobin 56.6(L) >=65.0 % [place] [facility] Hemoglobin 10.9(L) 11.9 - 15.5 g/dL [facility] [employer] O2 content 8.6(L) 15.0 - 22.0 Vol % [facility] Anatomic Site aPOC Pulm Artery [facility] Blood 11/19/2024 1:26 PM ORDERLY 11/19/2024 1:26 PM ORDERLY us Luca Medrano MD LAB POCT ORDERABLES - [place] [address] * POC Blood Gas and Chemistries, Arterial - (11/19/2024 11:45 AM ORDERLY) [facility] K POC 3.7 3.3 - 4.9 mmol/L Comment: Interpretive Data Not all point of care methods assess for hemolysis. Confirm with instrument and retest K+ if not consistent with clinical signs and symptoms. Current Interpretive Data was last revised on 2024. Blood 11/19/2024 11:4 5 AM ORDERLY 11/19/2024 11:45 AM ORDERLY Result [facility] Luca Medrano MD LAB POCT ORDERABLES - DEVICE Final Result Performing Organization Address [facility] de Phone Number [facility] Department [place] [address] * ECG 12 lead (11/19/2024 11:16 AM ORDERLY) Ventricular Rate EKG/Min 90 BPM [facility] QRS-Interval (MSEC) 84 ms [facility] QT-Interval (MSEC) 404 ms [facility] QTc 494 ms [facility] R Mccarr 6 degrees [facility] T Mccarr 144 degrees [facility] Diagnosis Atrial fibrillation Electronic atrial pacemaker Minimal voltage criteria for LVH, may be normal variant ( Oliverio product ) Septal infarct , age undetermined T wave abnormality, consider lateral ischemia Abnormal ECG Confirmed by HARJINDER HANDY M.D ([id number]) on 11/19/2024 3:59:31 PM [facility] 11/19/2024 11:1 6 AM ORDERLY 11/19/2024 3:59 PM ORDERLY Result [facility] Luca Medrano MD ECG ORDERABLES Final Result Performing Organization Address [facility] de Phone Number [facility] * SCAN - LABS (11/17/2024) Provider Scanning Final Result * CBC with auto differential (11/16/2024 1:57 PM ORDERLY) WBC 7.2 3.4 - 10.8 x10E3/uL [facility] [...] [facility] - 01 Blood 11/16/2024 1:57 PM ORDERLY 11/16/2024 Narrative [facility] - 11/17/2024 8:14 AM ORDERLY Performed at: - [facility] [address] [id number] Equity Sales Assistant: Marco Antonio Paiz PhD, Phone: [phone] us Luca Medrano MD LAB BLOOD ORDERABLES Final R esult [facility] * (ABNORMAL) Basic metabolic panel (11/16/2024 1:57 PM ORDERLY) [facility] Glucose 88 70 - 99 mg/dL [facility] [...] [facility] - 01 Blood 11/16/2024 1:57 PM ORDERLY 11/16/2024 Narrative [facility] - 11/17/2024 12:09 PM ORDERLY Performed at: [address] [place] [id number] Equity Sales Assistant: Marco Antonio Paiz PhD, Phone: [phone] us Luca Medrano MD LAB BLOOD ORDERABLES Final R esult [facility] - * TRANSTHORACIC ECHO (TTE) COMPLETE W DOPPLER/CF W CONTRAST (11/10/2024 4:05 PM ORDERLY) LV EF % CONS SCIMAGE Anatomical Region Laterality Modality Ultrasound 11/10/2024 2:55 PM ORDERLY Narrative 11/11/2024 9:34 AM ORDERLY [facility] [address], [address] [place] [address] Transthoracic Echocardiographic Report Patient Name: ESTUARDO COPELAND M : 1970 (54y ) Gender: F Study Date: 11/10/2024 02:55:48 PM Ht(Inch): 64 Wt(Lb): 115.08 BSA: 1.54 Surgery Specialist: GERA Wells Location: [facility] Order Provider: LUCA MEDRANO Heart Rate: 76 BMI: 19.75 BP: 94/60 Quality: Technically difficult study due to limited acoustic windows. Ref Provider: LUCA MEDRANO PROCEDURES: Echocardiographic Report: ([id number], [id number], [id number]) Transthoracic complete echo with strain imaging and contrast, 2D, spectral and tissue Doppler, color flow Doppler, M- mode. Additional Procedures: ([id number]) 3D echocardiographic imaging from [employer]. Contrast: [...] [ 46.00 - 106.00 ] AI Decel [place] 1.58 m/s2 ESV Mod 2C 14.03 ml [...] By: Silver Levin MD 11/11/2024 9:32:57 AM ORDERLY Electronically Signed By: Silver Levin MD 11/11/2024 9:32:57 AM ORDERLY Procedure Note Silver Levin MD - 11/11/2024 [facility] Cardiac Diagnostic Lab [address] , [address] [place] [address] Transthoracic Echocardiographic Report Patient Name: ESTUARDO COPELAND M : 1970 (54y ) Gender: F Study Date: 11/10/2024 02:55:48 PM Ht(Inch): 64 Wt(Lb): 115.08 BSA: 1.54 Surgery Specialist: GERA Wells Location: [facility] Order Provider:LUCA MEDRANO Heart Rate: 76 BMI: 19.75 BP: 94/60 Quality: Technically difficult studydue to limited acoustic windows. Ref Provider: LUCA MEDRANO PROCEDURES: Echocardiographic Report: ([id number], [id number], [id number]) Transthoracic completeecho with strain imaging and contrast, 2D, spectral and tissue Doppler, color flow Doppler,M- mode. Additional Procedures: ([id number]) 3D echocardiographic imaging from [employer]. Contrast: 0.4 ml Optison Administered, (2.6 ml [...] EDV Mod 4C 60.63 ml AI Decel [id number] sec EDV Mod BP 56.21 ml [ 46.00 - 106.00 ] AI Decel Slope1.58 m/s2 ESV Mod 2C 14.03 ml AI YTS177.67 msec ESV Mod 4C 21.21 ml MV [...] cm LA Length 4C 5.48 cm MV RHX975.85 msec [ 20.00 - 100.00 ] LA Volume 2C 34.1 ml MVA PHT2.18 cm2 LA Volume 4C 31.3 ml MV Decel Sjjx758.53 msec [ 104.00 - 258.00 ] LA [...] cm [ 2.70 - 3.70 ] MR MXU360.8 cm Ao Root Index 1.32 cm/m2 MR [...] By: Silver Levin MD 11/11/2024 9:32:57 AM ORDERLY Electronically Signed By: Silver Levin MD 11/11/2024 9:32:57 AM ORDERLY Luca Medrano MD CV ECHO PROCEDURES Final Res ult * HLA Antibody Screen by PRA or SAB per Schedule (Class I and Class II) (11/05/2024 10:00 AM ORDERLY) Blood 11/05/2024 10:0 0 AM ORDERLY Narrative [facility] - ORDERLY Sample received in lab and stored. No testing performed at this time. Salina Hector MD LAB BLOOD ORDERABLES Final Resul t Performing Organization Address [facility] Co de Phone Number [facility] * HLA Antibody Screen by PRA or SAB per Schedule (Class I and Class II) (09/20/2024 10:00 AM ORDERLY) Blood 09/20/2024 10:0 0 AM ORDERLY Narrative [facility] - ORDERLY Sample received in lab. Single Antigen Antibody Screen ordered. Salina Hector MD LAB BLOOD ORDERABLES Final Resul t Performing Organization Address [facility] Co de Phone Number [facility] * HLA Antibody Screen - SAB (Class I and Class II) (09/20/2024 10:00 AM ORDERLY) Class I Treatment EDTA [facility] Class I [...] DPB1*01:01, DPB1*03:01 [facility] 09/20/2024 10:0 0 AM ORDERLY 09/24/2024 12:48 PM ORDERLY Narrative [facility] - 09/24/2024 12:48 PM ORDERLY Single-antigen HLA antibody screen is performed on serum samples using a method developed and validated by the [facility] HLA laboratory based on an FDA-approved IVD kit (DigePrintcreen Single-Antigen, [employer], [place], [place]). All patient serum samples are pretreated with EDTA before the screen to prevent complement interference. Additional serum treatments, such as adsorption and DTT treatment, may be performed as indicated. Interpretive comments: Low risk: MFI [id number]. Moderate risk: MFI [id number]. Increased risk: MFI >/= 5000. The presence [...] antigens to avoid. Testing performed at the [facility], [facility] [address], [address]th floor, [place], [address]. [facility] # [id number]. Rosa Millan, Ph.D., Cylinder Dyer, HLA Laboratory Wilmer Prescott M.D., Ph.D., Acid Concentrator, HLA Laboratory Alma Payton, Ph.D., CLIA Acid Concentrator, [facility] Current methodology and interpretive comments last revised on 11/15/2022. us Salina Hector MD LAB BLOOD ORDERABLES Final Resul t Performing Organization Address City/[facility]/ZIP Co de Phone Number [facility] * Hepatitis C antibody (03/06/2023 10:19 AM CDT) Hep C Ab Nonreactive Nonreactive [facility] Comment:Antibodies to HCV no t detected. Does NOT exclude the possibility of recent exposure to HCV. Current interpretive data was last revised on 22 Blood 03/06/2023 10:1 9 AM CDT 03/06/2023 10:38 AM CDT Maria Fernanda Bryant MD LAB MICROBIOLOGY - GENERAL ORDERABLES Final Result Performing Organization Address [facility] Co de Phone Number [facility] Department [place] [address] from Last 3 Months or Most Recently Relevant to Health Maintenance Insurance [facility] CHOICE PLUS MEDICARE [facility] PLUS [facility] CHOICE PLUS MEDICARE MEDICARE [facility] CHOICE PLUS MEDICARE TRANS[employer] Advance Directives For more information, please contact: [phone] * Full Code (Latest Code Status on [...] 7:30 PM 07/25/2022 6:47 PM Care Teams Fermenter Relationship Specialty Start Date End Date Pal Downey DO PCP - General Internal Medicine 01/25/21 Quinton Rowan MD Referring Physician Cardiology 01/09/19 Tami Flores, TONO [address] [address] Registered Nurse Dining Server 01/25/21 Cricket Escalante MD [address] [address] Referring Physician Nephrology 03/24/21 Gael Sprague MD PhD [address] [address] Fellow Endocrinology Diabetes & Metabolism 03/24/21 Brad Turner MD [address] [address] Consulting Physician Obstetrics and Gynecology 03/24/21 Margarita Montoya MD [address] [address] Consulting Physician Trauma Surgery 12/27/21 Luca Medrano MD [address] [address] Consulting Physician Cardiology 08/03/22 Pb Galloway MD [address] [id number] [place] [address] Cardiothoracic Surgery 05/25/24 Felipe Gerber MD [address] [id number] [place] [address] Consulting Physician Cardiology 05/25/24
--- OUTSIDE RECORDS SUMMARY | 2024-11-27 02:09 | XMS_ITS | Patient Health Summary ---
Author Organization [facility] [employer] Address [address] [place] [address] Care Team Providers Care Senior Property Accountant Name Role Phone Danielle Hawkins Primary Care Provider Unavailabl e Note from [facility],non-owned Affiliates and Associated Physician Practices is amultiple site organization consisting of ambulatory clinics and hospital sitesin [place], [place], [place] and [place]. This disclosure is being madepursuant to the Care Everywhere program and may not contain all information available regarding this patient. Last updated 18.[facility] [employer] Allergies * Ampicillin(Anaphylaxis) -High Criticality * Ciprofloxacin(Nausea) [...] Comments Blood Pressure 145/91 09/06/2016 9:59 AM LONG FILLER CIGAR ROLLER MACHINE Pulse 79 09/06/2016 9:59 AM LONG FILLER CIGAR ROLLER MACHINE Temperature 36.4 C (97.5 F) 12/23/2015 3:20 PM LONG FILLER CIGAR ROLLER MACHINE Respiratory Rate 12 09/06/2016 9:59 AM LONG FILLER CIGAR ROLLER MACHINE Oxygen Saturation 100% 12/23/2015 3:20 PM LONG FILLER CIGAR ROLLER MACHINE Inhaled Oxygen Concentration - - Weight 60.8 kg (134 lb) 09/06/2016 9:59 AM LONG FILLER CIGAR ROLLER MACHINE Height 162.6 cm (5' 4 ) 09/06/2016 9:59 AM LONG FILLER CIGAR ROLLER MACHINE Body Mass Index 23 09/06/2016 9:59 AM LONG FILLER CIGAR ROLLER MACHINE Procedures * BASIC METABOLIC PANEL (CALCIUM TOTAL)(Performed [...] METABOLIC PANEL (CALCIUM TOTAL) (12/14/2015 7:25 AM LONG FILLER CIGAR ROLLER MACHINE) Only the most recent of2 resultswithin the time period is included. BUN 21 7 - 26 mg/dL [facility] Creatinine 1.3(H) 0.6 - 1.2 mg/dL [facility] Sodium 140 136 - 145 mmol/L [facility] Potassium 3.6 3.5 - 4.5 mmol/L [facility] Chloride 105 98 - 107 mmol/L [facility] CO2 26 22 - 29 mmol/L [facility] Glucose 85 70 - 115 mg/dL [facility] Calcium 8.2(L) 8.4 - 10.2 mg/dL [facility] Anion Gap 13 8 - 18 [facility] BUN/Creatinine Ratio 16 7 - 23 [facility] Osmolality Calculated 278 270 - 300 mOsm/kg [facility] eGFR 44(L) >60 mL/min/1.7 3 m2 [facility] Blood specimen (specimen) BLOOD SPECIMEN / Unknown 12/14/2015 7:25 AM LONG FILLER CIGAR ROLLER MACHINE 12/14/2015 7:36 AM LONG FILLER CIGAR ROLLER MACHINE Shabana Mancilla MD LAB - CHEMISTRY RADHIKA NUÑEZ Performing Organization Address [facility]/ZIP Co de Phone Number [address] [phone] * TSH (10/07/2015 9:18 AM LONG FILLER CIGAR ROLLER MACHINE) TSH 0.722 0.350 - 4.940 uIU/mL [facility] Blood specimen (specimen) BLOOD SPECIMEN / Unknown 10/07/2015 9:18 AM LONG FILLER CIGAR ROLLER MACHINE 10/07/2015 9:24 AM LONG FILLER CIGAR ROLLER MACHINE Yue Cummings GAMING MANAGER-SUBASSEMBLER LAB - CHEMIS TRY ORDERABLES Performing Organization Address [facility] Co de Phone Number [address] [phone] * T4 FREE (10/07/2015 9:18 AM LONG FILLER CIGAR ROLLER MACHINE) T4 Free 1.5 0.7 - 1.5 ng/dL [facility] Blood specimen (specimen) BLOOD SPECIMEN / Unknown 10/07/2015 9:18 AM LONG FILLER CIGAR ROLLER MACHINE 10/07/2015 9:24 AM LONG FILLER CIGAR ROLLER MACHINE Yue Cummings GAMING MANAGER-SUBASSEMBLER LAB - CHEMIS TRY ORDERABLES Performing Organization Address [facility]/ZIP Co de Phone Number [address] [phone] * LAB HISTORICAL RESULTS-ONBASE (10/05/2015) 10/05/2015 Narrative [facility] - 10/06/2015 11:18 AM LONG FILLER CIGAR ROLLER MACHINE Historical Provider LAB - CHEMISTRY Ahbi DE LA FUENTE Performing Organization Address City/[facility] Co de Phone Number [facility] [address] * (ABNORMAL) CALCIUM IONIZED WHOLE BLOOD (08/13/2015 5:14 AM CDT) Only the most recent of7 resultswithin the time period is included. Ionized Calcium Whole Blood 1.13 mmol/L [facility] Adjusted Ionized Calcium 1.12(L) 1.19 - 1.34 mmol/L [facility] pH Whole Blood 7.38 7.35 - 7.45 [facility] Blood specimen (specimen) BLOOD SPECIMEN / Unknown 08/13/2015 5:14 AM CDT 08/13/2015 5:24 AM CDT Ángel Jones MD LAB - CHEMISTRY RADHIKA NUÑEZ Performing Organization Address [facility] Co de Phone Number [address] [phone] * (ABNORMAL) PTH POST-OP OR ONLY (08/11/2015 10:04 AM CDT) PTH Post-Operative 10.2(L) See Comment pg/mL [facility] Comment: A decrease in cirulating PTH of 50% or more, ten minutes post-resection, signals successful removal of the abnormally secreting parathyroid tissue. Blood specimen (specimen) BLOOD SPECIMEN / Unknown 08/11/2015 10:04 AM CDT 08/11/2015 10:10 AM CDT Ángel Jones MD LAB - CHEMISTRY RADHIKA NUÑEZ Performing Organization Address City/[facility]/ZIP Co de Phone Number [address] [phone] * PATHOLOGY TISSUE (08/11/2015 9:03 AM CDT) [...] lobe , consists of a portion of bird, lobulated mar thyroid measuring 5.3 x 3.8 [...] follows: A1 entire small superior nodule A2-A4 congressional representative section of the larger nodule A5 larger [...] 1.8 cm. Both nodules have a firm, jxau-qonnpz-osn color. The larger nodule also abuts the margin. B1 two serial sections of smaller, more superior nodule B2-B4 congressional representative section of the larger nodule PD/edk MICROSCOPIC DESCRIPTION: The thyroid has nodular hyperplasia. A hypercellular right parathyroid gland is seen (B2, B3, B4). A small portion of thymus is present (B3). DOCUMENT RESTORER/radiation oncology nurse The performance characteristics of all immunohistochemical and indirect immunofluorescence stains (if any) cited in this report were determined by the [facility] of [facility]. Some of these tests were developed by [...] by Chiqui Joseph MD. Electronically signed 08/16/2015 [facility] ([facility]) Other (qualifier value) 08/11/2015 9:03 AM CDT 08/11/2015 10:54 AM CDT Narrative [facility] ([facility]) - 08/16/2015 6:01 PM CDT PROBLEM LIST: Patient Active Problem List: Multinodular goiter Vocal cord paralysis PRE-OP DIAGNOSIS: THYROID NEOPLASM OPERATIVE PROCEDURE / FINDINGS: Procedure(s) with comments: TOTAL THYROIDECTOMY WITH RLN - 95506, [id number] POST-OP DIAGNOSIS: * No post-op diagnosis entered * Collection Date->08/11/15 Collection Time-> 9:03 AM Specimen A->Thyroid left lobe, stitch superior perm path Specimen B->Thyroid right lobe, stitch superior. perm path Ángel Jones MD LAB - PATHOLOGY/CYTO LOGY ORDERABLES Performing Organization Address City/[facility] Co de Phone Number [facility] (BEAKER) * TYPE + SCREEN PANEL (08/11/2015 6:55 AM CDT) Typem B POS [facility] Antibody Screen NEG [facility] Blood specimen (specimen) 08/11/2015 6:55 AM CDT 08/11/2015 7:00 AM CDT Ángel Jones MD LAB - BLOOD BANK ORD ERABLES Performing Organization Address [facility] Co de Phone Number [facility] [address] * PATHOLOGY/GENETICS HISTORICAL-ONBASE (08/11/2015) 08/11/2015 Narrative [facility] - 08/17/2015 12:09 PM CDT Historical Provider LAB - CHEMISTRY O RDERABLES Performing Organization Address [facility] Co de Phone Number [facility] [address] * (ABNORMAL) CBC W AUTO DIFFERENTIAL (07/29/2015 2:43 PM CDT) Only the most recent of2 resultswithin the time period is included. WBC 7.3 3.5 - 10.5 10 3/uL [facility] RBC 5.14(H) 3.90 - 5.00 10 6/uL [facility] Hemoglobin 14.9 12.0 - 15.5 g/dL [facility] Hematocrit 43.8 35.0 - 45.0 % [facility] MCV 85.2 81.0 - 97.0 fL [facility] MCH 29.0 28.0 - 34.0 pg [facility] MCHC 34.0 32.0 - 36.0 g/dL [facility] Platelet Count 164 150 - 400 10 3/uL [facility] RDW-SD 39.3 36.0 - 50.0 fL [facility] RDW-CV 12.7 11.2 - 14.8 % [facility] MPV 10.4 9.3 - 12.8 fL [facility] Neutrophils % 69.0 35.0 - 70.0 % [facility] Lymphocytes % 20.9 19.7 - 55.1 % [facility] Monocytes % 6.0 3.0 - 15.0 % [facility] Eosinophils % 3.8 0.0 - 6.0 % [facility] Basophil % 0.3 0.0 - 1.5 % [facility] Neutrophils Absolute 5.0 1.6 - 7.0 10 3/uL [facility] Lymphocyte Absolute 1.5 0.8 - 2.9 10 3/uL [facility] Monocytes Absolute 0.44 0.14 - 0.66 10 3/uL [facility] Eosinophils Absolute 0.28(H) 0.00 - 0.22 10 3/uL [facility] Basophils Absolute 0.02 0.00 - 0.06 10 3/uL [facility] Immature Granulocytes % 0.1 0.0 - 1.0 % [facility] Blood specimen (specimen) BLOOD SPECIMEN / Unknown 07/29/2015 2:43 PM CDT 07/29/2015 2:46 PM CDT Jay King DO LAB - HEMATOLOGY OR DERABLES Performing Organization Address City/State/[facility] Co de Phone Number [facility] [address] [phone] * EKG 12-LEAD (07/29/2015 12:00 AM CDT) EKG [facility] Comment: Exam Date/Time: Jul 29 2015 14:10:37 Test Reason : History of aortic stenosis Blood Pressure : / mmHG Vent. Rate : 074 BPM Atrial Rate : 074 BPM P-R Int : 092 ms QRS Dur : 084 ms QT Int : 386 ms P-R-T Axes : 075 054 073 degrees QTc Int : 428 ms Sinus rhythm with short IA with Premature atrial complexes with Aberrant conduction Otherwise normal ECG No previous ECGs available Confirmed by Duc RICHARDSON, DANIEL ([id number]), video news editor Robinson Mcdonough ([id number]) on 09/14/2015 11:29:27 AM Referred By: REFERRING NO Confirmed By:DANIEL RICHARDSON M.D. 07/29/2015 Jay King DO ECG ORDERABLES Performing Organization Address City/State/[facility] Co de Phone Number [facility] Care Teams Senior Property Accountant Relationship Specialty Start Date End Date Danielle Hawkins Update Information PCP - General 04/29/15
--- OUTSIDE RECORDS SUMMARY | 2024-11-27 02:09 | XMS_ITS | Referral Summary ---
Author Organization [facility] [employer] Address [address] [place] [address] Care Team Providers Care Installation Service Representative Name Role Phone Danielle Hawkins Primary Care Provider Unavailabl e Source Comments [facility] [employer],non-owned Affiliates and Associated Physician Practices is amultiple site organization consisting of ambulatory clinics and hospital sitesin [place], [place], [place] and [place]. This disclosure is being madepursuant to the Care Everywhere program and may not contain all information available regarding this patient. Last updated 18.[facility] [employer] Allergies Active Allergy Reactions Criticality Noted Date [...] Comments Blood Pressure 145/91 09/06/2016 9:59 AM TUNNELING MACHINE OPERATOR Pulse 79 09/06/2016 9:59 AM TUNNELING MACHINE OPERATOR Temperature 36.4 C (97.5 F) 12/23/2015 3:20 PM TUNNELING MACHINE OPERATOR Respiratory Rate 12 09/06/2016 9:59 AM TUNNELING MACHINE OPERATOR Oxygen Saturation 100% 12/23/2015 3:20 PM TUNNELING MACHINE OPERATOR Inhaled Oxygen Concentration - - Weight 60.8 kg (134 lb) 09/06/2016 9:59 AM TUNNELING MACHINE OPERATOR Height 162.6 cm (5' 4 ) 09/06/2016 9:59 AM TUNNELING MACHINE OPERATOR Body Mass Index 23 09/06/2016 9:59 AM TUNNELING MACHINE OPERATOR Plan of Treatment Not on file Care Teams Installation Service Representative Relationship Specialty Start Date End Date Danielle Hawkins Update Information PCP - General 04/29/15
--- OUTSIDE RECORDS SUMMARY | 2024-11-27 02:09 | XMS_ITS ---
Author Organization [facility] Address [address] [place] [address] Care Team Providers Care Mining Support Worker Name Role Phone Quinton Rowan MD Unavailable [phone] Pal Downey DO Primary Care Provider [phone] Tami Flores RN Unavailable Cricket Escalante MD Unavailable [phone] Gael Sprague MD PhD Unavailable Brad Turner MD Unavailable [phone] Margarita Montoya MD Unavailable [phone] Luca Medrano MD Unavailable Pb Galloway MD Unavailable Felipe Gerber MD Unavailable [phone] Dialysis Access Sites Type Status Location Placement Date Removal Da te Peritoneal Dialysis Catheter Active Right Abdomen (side) - Upper, Medial 12/27/2021 Procedures Procedure Name Priority Date/Time Associated Diagnosis Comments EGFR Routine 11/19/2024 6:00 PM MAT MAKER DIFFERENTIAL AUTO Routine 11/19/2024 6:0 0 PM MAT MAKER CBC WITH AUTO DIFFERENTIAL Routine 11/19/2024 6:00 PM MAT MAKER BASIC METABOLIC PANEL Routine 11/19/2024 6:00 PM MAT MAKER POCT ACTIVATED CLOTTING TIME, LOW RANGE Routine 11/19/2024 4:42 PM MAT MAKER POCT ACTIVATED CLOTTING TIME, LOW RANGE Routine 11/19/2024 3:23 PM MAT MAKER LEFT HEART CATHETERIZATION WITH CORONARY ANGIOGRAPHY AND WITH AND WITHOUT LEFT VENTRICULOGRAM Routine 11/19/2024 2:50 PM MAT MAKER Chest pain, unspecified type POCT ACTIVATED CLOTTING TIME, LOW RANGE Routine 11/19/2024 2:49 PM MAT MAKER POCT ACTIVATED CLOTTING TIME, LOW RANGE Routine 11/19/2024 2:30 PM MAT MAKER POCT ACTIVATED CLOTTING TIME, LOW RANGE Routine 11/19/2024 2:01 PM MAT MAKER TYPE AND SCREEN Timed 11/19/2024 2:01 PM MAT MAKER POCT ACTIVATED CLOTTING TIME, LOW RANGE Routine 11/19/2024 1:53 PM MAT MAKER POCT ACTIVATED CLOTTING TIME, LOW RANGE Routine 11/19/2024 1:49 PM MAT MAKER POCT OXYHEMOGLOBIN - DEVICE Routine 11/19/2024 1:27 PM MAT MAKER POCT OXYHEMOGLOBIN - DEVICE Routine 11/19/2024 1:26 PM MAT MAKER POCT OXYHEMOGLOBIN - DEVICE Routine 11/19/2024 1:26 PM MAT MAKER POC BLOOD GAS AND CHEMISTRIES, ARTERIAL Routine 11/19/2024 11:45 AM MAT MAKER ECG 12-LEAD Routine 11/19/2024 11:16 AM MAT MAKER SCAN - LABS 11/17/2024 CBC WITH AUTO DIFFERENTIAL Routine 11/16/2024 1:57 PM MAT MAKER S/P TAVR (transcatheter aortic valve replacement) Chest pain, unspecified type BASIC METABOLIC PANEL Routine 11/16/2024 1:57 PM MAT MAKER S/P TAVR (transcatheter aortic valve replacement) Chest pain, unspecified type TRANSTHORACIC ECHO (TTE) COMPLETE W DOPPLER/CF W CONTRAST Routine 11/10/2024 4:05 PM MAT MAKER Acute diastolic heart failure (CMS/HCC) (HCC) HLA ANTIBODY SCREEN BY PRA OR SAB PER SCHEDULE (CLASS I AND CLASS II) Routine 11/05/2024 10:00 AM MAT MAKER ESRD (end stage renal disease) (CMS/HCC) (HCC) HLA ANTIBODY SCREEN - SAB (CLASS I AND CLASS II) Routine 09/20/2024 10:00 AM MAT MAKER ESRD (end stage renal disease) (CMS/HCC) (HCC) HLA ANTIBODY SCREEN BY PRA OR SAB PER SCHEDULE (CLASS I AND CLASS II) Routine 09/20/2024 10:00 AM MAT MAKER ESRD (end stage renal disease) (CMS/HCC) (HCC) [...] disease 07/08/2023 ESRD (end stage renal disease) ([facility]) 023 Assessment & Plan (05/21/2024 2:22 PM CDT): On peritoneal dialysis-management per renal team Chronic heart failure ([facility]) 08/02/2022 Assessment & Plan (05/24/2024 11:22 AM [...] telemetry, daily weights End stage renal disease ([facility]) 08/02/2022 Assessment & Plan (08/03/2022 9:30 AM CDT): -Hx of PCKD -Kidney transplant workup on hold until cardiac issues resolved -Started PD early 2021 -continue phoslo -renal consulted for PD assistance Shoulder pain 07/21/2022 Pre-transplant evaluation for end stage renal di sease 02/01/2022 Overview (02/01/2022): Added automatically from request for surgery [id number] Disorder of peritoneal dialysis catheter 022 Overview (12/22/2021): Added automatically from request for surgery [id number] Chronic kidney disease, stage V ([facility] 2021 Overview (08/21/2023): Added automatically from request for surgery [id number] Sick sinus syndrome ([facility]) 11/02/2020 Diastolic heart failure 10/27/2019 S/P placement [...] TR NSTEMI (non-ST elevated myocardial infarction) ( [facility]) 02/07/2019 Assessment & Plan (05/12/2019 10:18 AM [...] Assessment & Plan (02/25/2019 11:43 AM CDT): [facility] with 95% LAD lesion, had some [...] Assessment & Plan (02/24/2019 9:29 AM CDT): [facility] with 95% LAD lesion, had some [...] Assessment & Plan (02/20/2019 5:17 AM CDT): [facility] with 95% LAD lesion, had some RV dysfunction during AV repair and found to have RCA occlusion following LAD bypass - s/p IABP placement - CABG to LAD and LCA Assessment & Plan (02/19/2019 2:08 AM CDT): [facility] with 95% LAD lesion, had some RV dysfunction during AV repair and found to have RCA occlusion following LAD bypass - s/p IABP placement - CABG to LAD and LCA Assessment & Plan (02/17/2019 7:38 PM CDT): [facility] with 95% LAD lesion, had some RV dysfunction during AV repair and found to have RCA occlusion following LAD bypass - s/p IABP placement - CABG to LAD and LCA - on Epi and Milrinone, wean epi as above Assessment & Plan (02/16/2019 11:38 PM CDT): [facility] with 95% LAD lesion, had some RV dysfunction during AV repair and found to have RCA occlusion following LAD bypass - s/p IABP placement - CABG to LAD and LCA - on Epi and Milrinone of inotropy Assessment & Plan (02/11/2019 6:16 PM CDT): [facility] with 95% LAD lesion, had some [...] to 4.35 - valve team consulted, 02/09 [facility] with severe 1 vessel disease of [...] (02/09/2019): Added automatically from request for surgery [id number] Assessment & Plan (05/17/2019 9:19 AM CDT): [...] (02/10/2019): Added automatically from request for surgery [id number] Assessment & Plan (05/24/2024 11:21 AM CDT): [...] with left shoulder pain similar to previous DC -EKG changes per OSH --Slight elevation in [...] currently stable Daily BMPs, while inpatient Home quality control expert is Dr. Escalante Continue lasix 40 mg [...] kidney disease, baseline Cr 2.4-2.6. F/b OSH quality control expert. Apparently discussions for potential need for renal txp being discussed. - Cr at baseline on adm - avoid nephrotoxins, renally dose meds - continue calcitriol 0.5 mcg/day - Cr 2.75, received pre-cath hydration, stable 2.7 Headache 05/02/2016 Moderate COPD (chronic obstr uctive pulmonary disease) ([facility]) 11/02/2015 Assessment & Plan (08/02/2022 5:33 PM [...] AM CDT): Hitesh TAVR 05/21 Followed by [facility], Dr. Medrano. CT TAVR [...] not a candidate for intervention [facility] Assessment & Plan (05/17/2019 9:28 AM [...] metoprolol Moderate AR noted on most recent echo/CYALA Balloon angioplasty unsuccessful 03/04. Pleural chest tube [...] AV. Referred to valve team by primary gas charger Dr. Rowan. Seen 02/02 by valve team [...] on file Legal Sex Female 4:06 AM MAT MAKER Gender Identity Female 01/16/2024 11:18 AM CDT Sexual Orientation Straight 01/16/2024 11 :18 AM CDT Last Filed Vital Signs Vital Sign Reading Time Taken Comments Blood Pressure 130/75 11/19/2024 7:05 PM MAT MAKER Pulse 71 11/19/2024 7:05 PM MAT MAKER Temperature 36.6 C (97.9 F) 11/19/2024 11:25 AM MAT MAKER Respiratory Rate 21 11/19/2024 7:05 PM MAT MAKER Oxygen Saturation 94% 11/19/2024 7:05 PM MAT MAKER Inhaled Oxygen Concentration - - Weight 52.8 kg (116 lb 6.5 oz) 11/19/2024 11:25 AM MAT MAKER Height 162.6 cm (5' 4 ) 11/19/2024 11:25 AM MAT MAKER Body Mass Index 19.98 11/19/2024 11:25 AM MAT MAKER Results * (ABNORMAL) eGFR (11/19/2024 6:00 PM MAT MAKER) eGFR 3(L) >=60 mL/min/1. 73 m2 Comment: [...] last reviewed 2021. Blood 11/19/2024 6:00 PM MAT MAKER 11/19/2024 6:10 PM MAT MAKER Luca Medrano MD LAB BLOOD ORDERABLES Final R esult [facility] Department [place] [address] * (ABNORMAL) Differential, auto (11/19/2024 6:00 PM MAT MAKER) Neutrophil abs 6.5 1.5 - 6.5 K/cumm Imm gran abs 0.0 0.0 - 0.1 K/cumm [facility] Lymphocyte abs 0.5(L) 0.8 - 3.3 K/cumm [facility] Monocyte abs 0.3 0.2 - 0.8 K/cumm [facility] Eosinophil abs 0.1 0.0 - 0.5 K/cumm [facility] Basophil abs 0.0 0.0 - 0.1 K/cumm [facility] Neutrophil pct 87.7 % [facility] Comment: Interpretive Data Percent cell count reference ranges are not reported, since discordance with absolute values may lead to misinterpretation of CBC data. Current Interpretive Data was last revised on 2018. Imm gran pct 0.3 % [facility] Comment: Interpretive Data Percent cell count reference ranges are not reported, since discordance with absolute values may lead to misinterpretation of CBC data. Current Interpretive Data was last revised on 2018. Lymphocyte pct 6.8 % [facility] Comment: Interpretive Data Percent cell count reference ranges are not reported, since discordance with absolute values may lead to misinterpretation of CBC data. Current Interpretive Data was last revised on 2018. Monocyte pct 3.4 % [facility] Comment: Interpretive Data Percent cell count reference ranges are not reported, since discordance with absolute values may lead to misinterpretation of CBC data. Current Interpretive Data was last revised on 2018. Eosinophil pct 1.5 % [facility] Comment: Interpretive Data Percent cell count reference ranges are not reported, since discordance with absolute values may lead to misinterpretation of CBC data. Current Interpretive Data was last revised on 2018. Basophil pct 0.3 % [facility] Comment: Interpretive Data Percent cell count reference ranges are not reported, since discordance with absolute values may lead to misinterpretation of CBC data. Current Interpretive Data was last revised on 2018. Blood 11/19/2024 6:00 PM MAT MAKER 11/19/2024 6:04 PM MAT MAKER us Luca Medrano MD LAB BLOOD ORDERABLES Final R esult [facility] Department [place] [address] * (ABNORMAL) CBC with auto differential (11/19/2024 6:00 PM MAT MAKER) [facility] WBC 7.4 3.8 - 9.9 K/cumm Hgb 11.6(L) 11.9 - 15.5 g/dL [facility] Hct 36.7 35.6 - 45.5 % [facility] Plt 150 150 - 400 K/cumm [facility] MPV 10.6 9.1 - 12.3 fL [facility] RBC 4.22 3.90 - 5.20 M/cumm [facility] MCV 87.0 81.3 - 96.4 fL [facility] MCH 27.5 27.1 - 33.3 pg [facility] MCHC 31.6(L) 32.3 - 35.7 g/dL [facility] RDW CV 14.6 11.1 - 14.9 % [facility] RDW SD 46.1 35.7 - 48.1 fL [facility] NRBC abs 0.00 0.00 - 0.01 K/cumm [facility] Blood 11/19/2024 6:00 PM MAT MAKER 11/19/2024 6:04 PM MAT MAKER us Luca Medrano MD LAB BLOOD ORDERABLES Final R esult [facility] Department [place] [address] * (ABNORMAL) Basic metabolic panel (11/19/2024 6:00 PM MAT MAKER) [facility] Sodium 130(L) 135 - 145 mmol/L Potassium, pl 4.3 3.3 - 4.9 mmol/L [facility] Chloride 90(L) 97 - 110 mmol/L [facility] CO2 23 22 - 32 mmol/L [facility] Anion gap 17(H) 2 - 15 mmol/L [facility] BUN 57(H) 6 - 25 mg/dL [facility] Creatinine 13.87(H) 0.60 - 1.10 mg/dL [facility] Glucose 150 70 - 199 mg/dL [facility] Comment: Interpretive Data Fasting glucose [...] Calcium 6.9(L) 8.5 - 10.3 mg/dL [facility] Blood 11/19/2024 6:00 PM MAT MAKER 11/19/2024 6:04 PM MAT MAKER us Luca Medrano MD LAB BLOOD ORDERABLES Final R esult Performing Organization Address [facility]/ZIP Co de Phone Number [facility] Department [place] [employer] [place] [address] * (ABNORMAL) POCT Activated clotting time, low range (11/19/2024 4:42 PM MAT MAKER) ACT 171(H) 123 - 168 sec POC Performer [id number] [facility] POC Device Number [id number] [facility] Blood 11/19/2024 4:42 PM MAT MAKER 11/19/2024 4:42 PM MAT MAKER Luca Medrano MD LAB POCT ORDERABLES - DEVICE Final Result [facility] [place] [employer] [place] [address] * (ABNORMAL) POCT Activated clotting time, low range (11/19/2024 3:23 PM MAT MAKER) ACT 266(H) 123 - 168 sec POC Performer [id number] [facility] POC Device Number [id number] [facility] Blood 11/19/2024 3:23 PM MAT MAKER 11/19/2024 3:23 PM MAT MAKER us Luca Medrano MD LAB POCT ORDERABLES - DEVICE Final Result [facility] Department [place] [address] * LEFT HEART CATHETERIZATION WITH CORONARY ANGIOGRAPHY AND WITH AND WITHOUT LEFT VENTRICULOGRAM (11/19/2024 2:50 PM MAT MAKER) Anatomical Region Laterality Modality X-Ray Angiograph y Impressions 11/19/2024 4:18 PM MAT MAKER Very severe stenosis of the vein graft [...] attempt intervention again. I would suggest a [place] 1 0 guiding catheter and consideration for shockwave versus atherectomy. I was present during the entire procedure and personally dictated or confirmed the above report. Luca Medrano MD Narrative 11/19/2024 4:18 PM MAT MAKER Procedure: CORONARY ANGIOGRAM / RIGHT HEART CATHETERIZATION/percutaneous coronary intervention Patient: Estuardo Copeland is a 54 y.o. female : 1970 MR number: [id number] Date of Service: 11/19/2024 Driver: Luca Medrano MD Fellow: Josesito Pabon [...] obtained. The patient was brought to the candlemaking laborer and placed on the table Bilateral [...] coronary artery angiogram performed using a 6 Malaysian JR4 catheter Right heart catheterization preformed with VANI Sheridan Percutaneous coronary intervention performed on the Proximal saphenous vein graft to the LAD. This was an ACC/AHA Type C. Initial Lesion Length 12mm and final lesion Length 15mm. Initial KAROLINA Flow 3 with visible thrombus present Final KAROLINA Flow 3. Equipment used: 6 3DRC, [employer] IVUS Catheter, scion blue wire, 0.9 mm laser atherectomy catheter, 2 5 x 15 NC emerge balloon, a 3 0 x 12 mm AngioSculpt balloon, 4 0 by 15 NC emerge balloon, 4 0 x 15 resolute drug-eluting stent, 4 5 x 12 mm NC emerge balloon Attempted intervention on the ostial left main equipment used was a 6 Malaysian JL 3.5 guiding catheter, she on black [...] than 300. We took up a 6 Malaysian 3D RC that sat reasonably well in [...] or perforation. We then took our 6 Malaysian JL 3.5 guiding catheter attempted to intubate [...] right femoral artery and placed a 6 Malaysian Angio-Seal. Manual compression was performed on the venous sheath. COMPLICATIONS: None DIAGNOSTIC Luca Medrano MD CV CARDIAC CATH PROCEDURES F inal Result * (ABNORMAL) POCT Activated clotting time, low range (11/19/2024 2:49 PM MAT MAKER) ACT 260(H) 123 - 168 sec POC Performer [id number] [facility] POC Device Number [id number] [facility] Blood 11/19/2024 2:49 PM MAT MAKER 11/19/2024 2:49 PM MAT MAKER Luca Medrano MD LAB POCT ORDERABLES - DEVICE Final Result [facility] Department [place] [address] * (ABNORMAL) POCT Activated clotting time, low range (11/19/2024 2:30 PM MAT MAKER) ACT 385(H) 123 - 168 sec POC Performer [id number] [facility] POC Device Number [id number] [facility] Blood 11/19/2024 2:30 PM MAT MAKER 11/19/2024 2:30 PM MAT MAKER Luca Medrano MD LAB POCT ORDERABLES - DEVICE Final Result Performing Organization Address [facility] de Phone Number [facility] [employer] [place] [address] * (ABNORMAL) POCT Activated clotting time, low range (11/19/2024 2:01 PM MAT MAKER) ACT >400(H) 123 - 168 sec POC Performer [id number] [facility] POC Device Number [id number] [facility] Blood 11/19/2024 2:01 PM MAT MAKER 11/19/2024 2:01 PM MAT MAKER Luca Medrano MD LAB POCT ORDERABLES - DEVICE Final Result Performing Organization Address [facility] de Phone Number [facility] [employer] [place] [address] * Type and screen (11/19/2024 2:01 PM MAT MAKER) ABO Rh B Positive Jorge A, indirect Negative [facility] Blood 11/19/2024 2:01 PM MAT MAKER 11/19/2024 2:14 PM MAT MAKER Narrative [facility] - 11/19/2024 3:08 PM MAT MAKER Has the patient had Daratumumab or Isatuximab in the past 6 months?->Unknown Luca Medrano MD LAB BLOOD BANK TEST ORDERABL ES Final Result Performing Organization Address [facility] de Phone Number [facility] [employer] [place] [address] * (ABNORMAL) POCT Activated clotting time, low range (11/19/2024 1:53 PM MAT MAKER) ACT >400(H) 123 - 168 sec POC Performer [id number] [facility] POC Device Number [id number] [facility] Blood 11/19/2024 1:53 PM MAT MAKER 11/19/2024 1:53 PM MAT MAKER Luca Medrano MD LAB POCT ORDERABLES - DEVICE Final Result Performing Organization Address [facility] Co de Phone Number [facility] [employer] [place] [address] * (ABNORMAL) POCT Activated clotting time, low range (11/19/2024 1:49 PM MAT MAKER) [facility] ACT 78(L) 123 - 168 sec POC Performer [id number] [facility] POC Device Number [id number] [facility] Blood 11/19/2024 1:49 PM MAT MAKER 11/19/2024 1:49 PM MAT MAKER Luca Medrano MD LAB POCT ORDERABLES - DEVICE Final Result Performing Organization Address [facility] de Phone Number [facility] [employer] [place] [address] * (ABNORMAL) POCT oxyhemoglobin (11/19/2024 1:27 PM MAT MAKER) [facility] P[facility]ARKER Oxyhemoglobin 91.6 >=65.0 % [facility] Hemoglobin 11.2(L) 11.9 - 15.5 g/dL [facility] [employer] O2 content 14.3(L) 15.0 - 22.0 Vol % [facility] Anatomic Site aPOC Aorta [facility] Blood 11/19/2024 1:27 PM MAT MAKER 11/19/2024 1:27 PM MAT MAKER Luca Medrano MD LAB POCT ORDERABLES - DEVICE Final Result Performing Organization Address [facility] Co de Phone Number [facility] [employer] [place] [address] * (ABNORMAL) POCT oxyhemoglobin (11/19/2024 1:26 PM MAT MAKER) [facility] P[employer]ARKER Oxyhemoglobin 56.2(L) >=65.0 % [facility] Hemoglobin 11.0(L) 11.9 - 15.5 g/dL [facility] P[employer] O2 content 8.6(L) 15.0 - 22.0 Vol % [facility] Anatomic Site aPOC Pulm Artery [facility] Blood 11/19/2024 1:26 PM MAT MAKER 11/19/2024 1:26 PM MAT MAKER Luca Medrano MD LAB POCT ORDERABLES - DEVICE Final Result Performing Organization Address [facility] de Phone Number [facility] [place] [employer] [place] [address] * (ABNORMAL) POCT oxyhemoglobin (11/19/2024 1:26 PM MAT MAKER) [facility] P[employer] BARKER Oxyhemoglobin 56.6(L) >=65.0 % [facility] Hemoglobin 10.9(L) 11.9 - 15.5 g/dL [facility] P[employer]ARK[employer] O2 content 8.6(L) 15.0 - 22.0 Vol % [facility] Anatomic Site aPOC Pulm Artery [facility] Blood 11/19/2024 1:26 PM MAT MAKER 11/19/2024 1:26 PM MAT MAKER Luca Medrano MD LAB POCT ORDERABLES - DEVICE Final Result Performing Organization Address [facility] de Phone Number [facility] Department [place] [employer] [place] [address] * POC Blood Gas and Chemistries, Arterial - (11/19/2024 11:45 AM MAT MAKER) K POC 3.7 3.3 - 4.9 mmol/L Comment: Interpretive Data Not all point of care methods assess for hemolysis. Confirm with instrument and retest K+ if not consistent with clinical signs and symptoms. Current Interpretive Data was last revised on 2024. Blood 11/19/2024 11:4 5 AM MAT MAKER 11/19/2024 11:45 AM MAT MAKER Luca Medrano MD LAB POCT ORDERABLES - DEVICE Final Result Performing Organization Address [facility]/ZIP Co de Phone Number [facility] Department [place] [address] * ECG 12 lead (11/19/2024 11:16 AM MAT MAKER) Ventricular Rate EKG/Min 90 BPM [facility] QRS-Interval (MSEC) 84 ms [facility] QT-Interval (MSEC) 404 ms [facility] QTc 494 ms [facility] R [place] 6 degrees [facility] T [place] 144 degrees [facility] Diagnosis Atrial fibrillation Electronic atrial pacemaker Minimal voltage criteria for LVH, may be normal variant ( Oliverio product ) Septal infarct , age undetermined T wave abnormality, consider lateral ischemia Abnormal ECG Confirmed by HARJINDER HANDY M.D ([id number]) on 11/19/2024 3:59:31 PM [facility] 11/19/2024 11:1 6 AM MAT MAKER 11/19/2024 3:59 PM MAT MAKER Luca Medrano MD ECG ORDERABLES Final Result Performing Organization Address [facility] Co de Phone Number [facility] * SCAN - LABS (11/17/2024) Provider Scanning Final Result * CBC with auto differential (11/16/2024 1:57 PM MAT MAKER) WBC 7.2 3.4 - 10.8 x10E3/uL [facility] [...] [facility] - 01 Blood 11/16/2024 1:57 PM MAT MAKER 11/16/2024 Narrative [facility] - 11/17/2024 8:14 AM MAT MAKER Performed at: [address] [id number] Shuttle Truck Driver: Marco Antonio Paiz PhD, Phone: [phone] us Luca Medrano MD LAB BLOOD ORDERABLES Final [facility]ult [facility] * (ABNORMAL) Basic metabolic panel (11/16/2024 1:57 PM MAT MAKER) [facility] Glucose 88 70 - 99 mg/dL [facility] [...] [facility] - 01 Blood 11/16/2024 1:57 PM MAT MAKER 11/16/2024 Narrative [facility] - 11/17/2024 12:09 PM MAT MAKER Performed at: [address] [id number] Shuttle Truck Driver: Marco Antonio Paiz PhD, Phone: [phone] us Luca Medrano MD LAB BLOOD ORDERABLES Final R esult [facility] * TRANSTHORACIC ECHO (TTE) COMPLETE W DOPPLER/CF W CONTRAST (11/10/2024 4:05 PM MAT MAKER) LV EF % CONS SCIMAGE Anatomical Region Laterality Modality Ultrasound 11/10/2024 2:55 PM MAT MAKER Narrative 11/11/2024 9:34 AM MAT MAKER [facility] [address] , [address] [place] [address] Transthoracic Echocardiographic Report Patient Name: ESTUARDO COPELAND M : 1970 (54y ) Gender: F Study Date: 11/10/2024 02:55:48 PM Ht(Inch): 64 Wt(Lb): 115.08 BSA: 1.54 Math Professor: GERA Wells Location: [facility] Order Provider: LUCA MEDRANO Heart Rate: 76 BMI: 19.75 BP: 94/60 Quality: Technically difficult study due to limited acoustic windows. Ref Provider: LUCA MEDRANO PROCEDURES: Echocardiographic Report: ([id number], [id number]) Transthoracic complete echo with strain imaging and contrast, 2D, spectral and tissue Doppler, color flow Doppler, M- mode. Additional Procedures: ([id number]) 3D echocardiographic imaging from [facility] Machine. Contrast: [...] [ 46.00 - 106.00 ] AI Decel Reagan 1.58 m/s2 ESV Mod 2C 14.03 ml [...] By: Silver Levin MD 11/11/2024 9:32:57 AM MAT MAKER Electronically Signed By: Silver Levin MD 11/11/2024 9:32:57 AM MAT MAKER Procedure Note Silver Levin MD - 11/11/2024 [facility] Diagnostic [facility] [address], [address] [place] [address] Transthoracic Echocardiographic Report Patient Name: ESTUARDO COPELAND M : 1970 (54y ) Gender: F Study Date: 11/10/2024 02:55:48 PM Ht(Inch): 64 Wt(Lb): 115.08 BSA: 1.54 Math Professor: GERA Wells Location: [facility] Order Provider:LUCA MEDRANO Heart Rate: 76 BMI: 19.75 BP: 94/60 Quality: Technically difficult studydue to limited acoustic windows. Ref Provider: LUCA MEDRANO PROCEDURES: Echocardiographic Report: ([id number], [id number], [id number]) Transthoracic completeecho with strain imaging and contrast, 2D, spectral and tissue Doppler, color flow Doppler,M- mode. Additional Procedures: ([id number]) 3D echocardiographic imaging from [facility]. Contrast: 0.4 ml Optison Administered, (2.6 ml [...] EDV Mod 4C 60.63 ml AI Decel Hche8581.11 sec EDV Mod BP 56.21 ml [ 46.00 - 106.00 ] AI Decel Slope1.58 m/s2 ESV Mod 2C 14.03 ml AI YTG759.67 msec ESV Mod 4C 21.21 ml MV [...] cm LA Length 4C 5.48 cm MV GUF425.85 msec [ 20.00 - 100.00 ] LA Volume 2C 34.1 ml MVA PHT2.18 cm2 LA Volume 4C 31.3 ml MV Decel Mqkq089.53 msec [ 104.00 - 258.00 ] LA [...] cm [ 2.70 - 3.70 ] MR TTX811.8 cm Ao Root Index 1.32 cm/m2 MR [...] By: Silver Levin MD 11/11/2024 9:32:57 AM MAT MAKER Electronically Signed By: Silver Levin MD 11/11/2024 9:32:57 AM MAT MAKER Luca Medrano MD CV ECHO PROCEDURES Final Res ult * HLA Antibody Screen by PRA or SAB per Schedule (Class I and Class II) (11/05/2024 10:00 AM MAT MAKER) Blood 11/05/2024 10:0 0 AM MAT MAKER Narrative HISTOTR[facility] - MAT MAKER Sample received in lab and stored. No testing performed at this time. Salina Hector MD LAB BLOOD ORDERABLES Final Resul t Performing Organization Address [facility] Co de Phone Number HISTOTRAC * HLA Antibody Screen by PRA or SAB per Schedule (Class I and Class II) (09/20/2024 10:00 AM MAT MAKER) Blood 09/20/2024 10:0 0 AM MAT MAKER Narrative HISTOTRAC - MAT MAKER Sample received in lab. Single Antigen Antibody Screen ordered. Salina Hector MD LAB BLOOD ORDERABLES Final Resul t Performing Organization Address [facility] Co de Phone Number HISTOTRAC * HLA Antibody Screen - SAB (Class I and Class II) (09/20/2024 10:00 AM MAT MAKER) Class I Treatment EDTA HISTOTRAC Class I [...] DPB1*01:01, DPB1*03:01 H[facility]OT[facility]AC 09/20/2024 10:0 0 AM MAT MAKER 09/24/2024 12:48 PM MAT MAKER Narrative HISTOTRAC - 09/24/2024 12:48 PM MAT MAKER Single-antigen HLA antibody screen is performed on serum samples using a method developed and validated by the [facility] HLA laboratory based on an FDA-approved IVD kit (LABScreen Single-Antigen, [place], [place], [place]). All patient serum samples are pretreated with EDTA before the screen to prevent complement interference. Additional serum treatments, such as adsorption and DTT treatment, may be performed as indicated. Interpretive comments: Low risk: MFI [id number]. Moderate risk: MFI [id number]. Increased risk: MFI >/= 5000. The presence [...] antigens to avoid. Testing performed at the [facility], [facility] [address], [address] floor, [place], [address]. CLIA # [id number]. Rosa Millan, Ph.D., Sampler Tester, HLA Laboratory Wilmer Prescott M.D., Ph.D., Rubber Goods Supervisor, HLA Laboratory Alma Payton, Ph.D., [place] Rubber Goods Supervisor, [facility] Current methodology and interpretive comments [...] GENERAL ORDERABLES Final Result CAMERON DOMINGUEZ [facility] Department [place] [address] from Last 3 Months or Most Recently Relevant to Health Maintenance
--- OUTSIDE RECORDS SUMMARY | 2024-11-27 02:09 | XMS_ITS | Referral Summary ---
Author Organization [facility] Address [address] [place] [address] Care Team Providers Care Electronic Funds Transfer Coordinator Name Role Phone Quinton Rowan MD Unavailable [phone] Pal Downey DO Primary Care Provider [phone] Tami Flores RN Unavailable [phone] Cricket Escalante MD Unavailable [phone] Gael Sprague MD PhD Unavailable Brad Turner MD Unavailable [phone] Margarita Montoya MD Unavailable Luca Medrano MD Unavailable [phone] Pb Galloway MD Unavailable Felipe Gerber MD Unavailable [phone] Encounters Date Type Department Care Team Description 11/19/2024 2:02 PM FAMILY DEVELOPMENT EXTENSION SPECIALIST - 11/19/2024 3:42 PM FAMILY DEVELOPMENT EXTENSION SPECIALIST Surgery [facility] [address] [place] [address] Luca Medrano MD LEFT HEART CATHETERIZATION WITH CORONARY ANGIOGRAPHY AND WITH OR WITHOUT LEFT VENTRICULOGRAM [id number] 11/19/2024 11:04 AM FAMILY DEVELOPMENT EXTENSION SPECIALIST - 11/19/2024 7:20 PM FAMILY DEVELOPMENT EXTENSION SPECIALIST Hospital Encounter [facility] [address] [facility] [place] [address] Luca Medrano MD 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 (HCC) [I25.119] (Primary Dx); Chest pain, unspecified type Discharge Disposition: Discharge to home or self care 11/18/2024 11:45 AM FAMILY DEVELOPMENT EXTENSION SPECIALIST Office Visit [facility] [address] [place] [address] 8th [place] [address] [place] [phone] Lane Ramos MD PhD SSS (sick sinus syndrome) (CMS/HCC) (HCC) (Primary Dx) 11/18/2024 11:15 AM FAMILY DEVELOPMENT EXTENSION SPECIALIST Ancillary Procedure [address] 8th [place] [address] [place] [id number] SSS (sick sinus syndrome) (CMS/HCC) (HCC) (Primary Dx); Fitting or adjustment of cardiac pacemaker 11/17/2024 Orders Only [facility] Scanning, Provider 11/10/2024 Telephone [facility] [address] [place] [address] Medical Office Building [address] [place] [phone] Luca Medrano MD [facility] 11/10/2024 3:00 PM FAMILY DEVELOPMENT EXTENSION SPECIALIST Ancillary Procedure [facility] [address] [place] [address] [address] [place] [address] Acute diastolic heart failure (CMS/HCC) (HCC) 11/05/2024 10:00 AM FAMILY DEVELOPMENT EXTENSION SPECIALIST - 11/05/2024 11:59 PM FAMILY DEVELOPMENT EXTENSION SPECIALIST Hospital Encounter [facility] [address] [place] [address] ESRD (end stage renal disease) (CMS/HCC) (HCC) Discharge Disposition: Discharge to home or self care 11/05/2024 Orders Only [facility] [address] [place] [address] 8th [place] [address] [place] [address] Luca Medrano MD 11/04/2024 11:30 AM FAMILY DEVELOPMENT EXTENSION SPECIALIST Office Visit [facility] [address] [place] [address] Building [address] [place] [address] Luca Medrano MD Acute diastolic heart failure (CMS/HCC) (HCC) (Primary Dx); Chronic systolic heart failure (CMS/HCC) (HCC); 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 (HCC) 09/23/2024 Orders Only [facility] [address] [facility] [address] [phone] [place] [address] Tami Flores RN ESRD (end stage renal disease) (CMS/HCC) (HCC) (Primary Dx) 09/20/2024 10:00 AM FAMILY DEVELOPMENT EXTENSION SPECIALIST - 09/20/2024 11:59 PM [facility] Hospital Encounter [address] [address] ESRD (end stage renal disease) ([facility]) (HCC) Discharge Disposition: Discharge to home or self care 09/11/2024 Telephone [facility] [address] [facility] [address] [phone] [place] [address] Mariann Bobo 09/10/2024 Telephone [facility] [address] [facility] [address] [phone] [place] [address] Mariann Bobo from Last 3 Months Allergies [...] disease 07/08/2023 ESRD (end stage renal disease) ([facility]) 023 Assessment & Plan (05/21/2024 2:22 PM CDT): On peritoneal dialysis-management per renal team [place] 08/02/2022 Assessment & Plan (05/24/2024 11:22 AM [...] telemetry, daily weights End stage renal disease ([facility]) 08/02/2022 Assessment & Plan (08/03/2022 9:30 AM CDT): -Hx of PCKD -Kidney transplant workup on hold until cardiac issues resolved -Started PD early 2021 -continue phoslo -renal consulted for PD assistance Shoulder pain 07/21/2022 Pre-transplant evaluation for end stage renal di sease 02/01/2022 Overview (02/01/2022): Added automatically from request for surgery [id number] Disorder of peritoneal dialysis catheter 022 Overview (12/22/2021): Added automatically from request for surgery [id number] Chronic kidney disease, stage V ([facility]) 2021 Overview (08/21/2023): Added automatically from request for surgery [id number] Sick sinus syndrome ([facility]) 11/02/2020 Diastolic heart failure 10/27/2019 [...] TR NSTEMI (non-ST elevated myocardial infarction) ( [facility]) 02/07/2019 Assessment & Plan (05/12/2019 [...] Assessment & Plan (02/25/2019 11:43 AM CDT): [facility] with 95% LAD lesion, had some [...] Assessment & Plan (02/24/2019 9:29 AM CDT): [facility] with 95% LAD lesion, had some [...] Assessment & Plan (02/20/2019 5:17 AM CDT): [facility] with 95% LAD lesion, had some RV dysfunction during AV repair and found to have RCA occlusion following LAD bypass - s/p IABP placement - CABG to LAD and LCA Assessment & Plan (02/19/2019 2:08 AM CDT): [facility] with 95% LAD lesion, had some RV dysfunction during AV repair and found to have RCA occlusion following LAD bypass - s/p IABP placement - CABG to LAD and LCA Assessment & Plan (02/17/2019 7:38 PM CDT): [facility] with 95% LAD lesion, had some RV dysfunction during AV repair and found to have RCA occlusion following LAD bypass - s/p IABP placement - CABG to LAD and LCA - on Epi and Milrinone, wean epi as above Assessment & Plan (02/16/2019 11:38 PM CDT): [facility] with 95% LAD lesion, had some RV dysfunction during AV repair and found to have RCA occlusion following LAD bypass - s/p IABP placement - CABG to LAD and LCA - on Epi and Milrinone of inotropy Assessment & Plan (02/11/2019 6:16 PM CDT): [facility] with 95% LAD lesion, had some [...] to 4.35 - valve team consulted, 02/09 [facility] with severe 1 vessel disease of [...] (02/09/2019): Added automatically from request for surgery [id number] Assessment & Plan (05/17/2019 9:19 AM CDT): [...] (02/10/2019): Added automatically from request for surgery [id number] Assessment & Plan (05/24/2024 11:21 AM CDT): [...] with left shoulder pain similar to previous IN -EKG changes per OSH --Slight elevation in [...] currently stable Daily BMPs, while inpatient Home fire management technician is Dr. Escalante Continue lasix 40 mg [...] kidney disease, baseline Cr 2.4-2.6. F/b OSH fire management technician. Apparently discussions for potential need for renal txp being discussed. - Cr at baseline on adm - avoid nephrotoxins, renally dose meds - continue calcitriol 0.5 mcg/day - Cr 2.75, received pre-cath hydration, stable 2.7 Headache 05/02/2016 Moderate COPD (chronic obstr uctive pulmonary disease) ([facility]) 11/02/2015 Assessment & Plan (08/02/2022 [...] disease (2/2 kyphoscoliosis), prev followed by Dr. Sorinao - continue albuterol prn Assessment & Plan [...] AM CDT): Hitesh TAVR 05/21 Followed by [facility], Dr. Medrano. CT TAVR [...] a candidate for intervention (declined by [facility]) Assessment & Plan (05/17/2019 9:28 [...] AV. Referred to valve team by primary piano bench assembler Dr. Rowan. Seen 02/02 by valve team [...] around 2.4 Dr Escalante is her home fire management technician Assessment & Plan (02/23/2019 12:20 PM CDT): Pt above POW by 2 kg. Lasix on hold due to elevation in Creatinine Baseline creat is around 2.4 Dr Escalante is her home fire management technician Agitation requiring sedation protocol 02/14/2019 02/23/2019 Acute [...] she had reactions to (?). Per OSH fire management technician's note in Care Everywhere, pt tried metoprolol [...] on file Legal Sex Female 4:06 AM FAMILY DEVELOPMENT EXTENSION SPECIALIST Gender Identity Female 01/16/2024 11:18 AM CDT Sexual Orientation Straight 01/16/2024 11 :18 AM CDT Last Filed Vital Signs Vital Sign Reading Time Taken Comments Blood Pressure 130/75 11/19/2024 7:05 PM FAMILY DEVELOPMENT EXTENSION SPECIALIST Pulse 71 11/19/2024 7:05 PM FAMILY DEVELOPMENT EXTENSION SPECIALIST Temperature 36.6 C (97.9 F) 11/19/2024 11:25 AM FAMILY DEVELOPMENT EXTENSION SPECIALIST Respiratory Rate 21 11/19/2024 7:05 PM FAMILY DEVELOPMENT EXTENSION SPECIALIST Oxygen Saturation 94% 11/19/2024 7:05 PM FAMILY DEVELOPMENT EXTENSION SPECIALIST Inhaled Oxygen Concentration - - Weight 52.8 kg (116 lb 6.5 oz) 11/19/2024 11:25 AM FAMILY DEVELOPMENT EXTENSION SPECIALIST Height 162.6 cm (5' 4 ) 11/19/2024 11:25 AM FAMILY DEVELOPMENT EXTENSION SPECIALIST Body Mass Index 19.98 11/19/2024 11:25 AM FAMILY DEVELOPMENT EXTENSION SPECIALIST Plan of Treatment Scheduled Procedures Name Priority Associated Diagnoses Date/Ti me TRANSPLANT KIDNEY ESRD (end stage renal disease) (CMS/HCC) (HCC) Medical Devices Implanted Type Area Wireworker Supervisor Device Identifier Shelf Expiration Date Model / Serial / Lot Angio-Seal Evolution 6fr Vascular Closure [id number] - [id number] - [id number] Implanted:Qty: 1 on 03/09/2022 by Luca Medrano MD at [facility] Collagen Right: Femoral [employer] Pam 09/19/2022 [id number] / [id number] / [id number] [employer] Pam Angio-Seal Vip 6fr Closere Device [id number] - [id number] - [id number] Implanted:Qty: 1 on 07/24/2022 by Luca Medrano MD at [facility] Collagen [employer] Pam 03/20/2023 [id number] / [id number] / [id number] [employer] Pam Angio-Seal Vip 6fr Closere Device 620431 - [id number] - [id number] Implanted:Qty: 1 on 05/21/2024 at [facility] Collagen Right: Common Femoral Artery [employer] Pam 01/09/2025 [id number] / [id number] / [id number] [employer] Pam Angio-Seal Vip Bondek-Plus 8fr .038in 70cm Hemostatic Latex Free 402580 - [id number] - [id number] Implanted:Qty: 1 on 05/21/2024 by Felipe Gerber MD at [facility] Collagen Right: Common Femoral Artery [employer] Pam 01/06/2025 [id number] / [id number] / [id number] Medtronic Cardiac Rhythm Mgmt 5076-52 Capsurefix Novus 6.2fr 2mm 52cm Bipolar Screw In Implantable Latex Free - [id number] - [id number] Implanted:Qty: 1 on 05/15/[address] Ramos MD PhD at [facility] Lead Medtronic Inc 03/11/2021 5076-52 / [id number] / Medtronic Cardiac Rhythm Mgmt 5076-45 Capsurefix Novus 6.2fr 2mm 45cm Bipolar Screw In Implantable - [id number] - [id number] Implanted:Qty: 1 on 05/15/[address] Ramos MD PhD at [facility] Lead Medtronic Inc 03/30/2021 5076-45 / [id number] / Hand Talk [id number] Linear 7.5fr 6in Insertion Kit Adaptive Physical Education Teacher Introducer Sheath - [id number] Implanted:Qty: 1 on 02/10/2019 by Luca Medrano MD at [facility] Other - see comments Hand Talk 0684-00 0480-0 1 / / Description:IABP Medtronic Inc [id number] Turlock Curl Cath Beta-Cap Holden 15fr 57cm 2 Cuff Clamp Adapter - S0 - [id number] Implanted:Qty: 1 on 11/21/2021 by Carlos Kamara MD at [facility] Other - see comments N/A: Abdomen Medtronic Inc 11/30/2022 8811-31 3015 / 0 / [id number] Medtronic Cardiac Rhythm Mgmt W1dr01 Tereza Wirelessly Pacemaker Cardiac - [id number] - [id number] Implanted:Qty: 1 on 05/15/[address] Ramos MD PhD at [facility] Pacemaker Medtronic Inc [id number] 09/17/2020 W1DR01 / [id number] / Jamil [employer]iences Valve Aortic Trnscath Brown 3 Ultra Resilia 20mm [id number] - [id number] - [id number] Implanted:Qty: 1 on 05/21/2024 by Felipe Gerber MD at [facility] Prosthetic Valve N/A: Aortic Valve [employer] 02/27/2027 [id number] 20A / [id number] / Medtronic Inc Resolute Clive 4mm 2.1-2.7fr 12mm 140cm Rapid Exchange Radiopaque [id number] - [id number] - [id number] Implanted:Qty: 1 on 03/09/2022 by Luca Medrano MD at [facility] Stent Left: Coronary Medtronic Inc 12/06/2022 [id number] 012UX / [id number] / [id number] Description:LAD [employer]otron[employer] Inc Stent Coronary De Rx Cocr Ors Msn 4.0x15mm [id number] - [id number] - [id number] Implanted:Qty: 1 on 07/24/2022 by Luca Medrano MD at [facility] Stent [employer] Inc 09/05/2023 [id number] / [id number] / [id number] [facility] Southtronic [facility] Surgery 4.0 X 15mm Bend Blaine Rx Coronary Stent [id number] - [id number] - [id number] Implanted:Qty: 1 on 11/19/2024 by Luca Medrano MD at [facility] Stent N/A: Saphenous Vein Graft [facility] [employer] [facility] Surgery 05/05/2027 [id number] / [id number] / [id number] Painter Vascular System Closure Repair Femoral Artery Suture Mediated Perclose Prostyle 09843-71 - [id number] - [id number] Implanted:Qty: 1 on 05/21/2024 by Felipe Gerber MD at [facility] Vascular Closure Device Left: Common Femoral Artery Painter Vascular 02/17/2026 63594-6 3 / [id number] / [id number] [employer] Pam Angio-Seal Vip 6fr Closere Device [id number] - [id number] - [id number] Implanted:Qty: 1 on 11/19/2024 by Luca Medrano MD at [facility] Vascular Closure Device N/A: Saphenous Vein Graft [employer] Pam 04/29/2025 [id number] / [id number] / [id number] [employer] Pam [id number] Supple Ronna-Guard Solano Processing 4x4cm Patch Cardiovascular - [id number] - [id number] Implanted:Qty: 1 on 02/11/2019 by Christopher Holman MD at [facility] N/A: Chest [employer] Pam 06/03/2023 [id number] / 3211-04 04-0010 / [id number] [employer] [id number] Certitude Brown 3 Atrion 18fr Transcatheter Introducer Crimper - [id number] - [id number] Implanted:Qty: 1 on 02/11/2019 by Christopher Holman MD at [facility] N/A: Heart [employer] [id number] / [id number] / Medtronic Inc [id number] Turlock Curl Cath Beta-Cap Holdne 15fr 57cm 2 Cuff Clamp Adapter - [id number] Implanted:Qty: 1 on 12/27/2021 by Margarita Montoya MD at [facility] N/A: Abdomen Medtronic Inc 10/14/2023 8811-31 3015 / / Procedures Procedure Name Priority Date/Time Associated Diagnosis Comments EGFR Routine 11/19/2024 6:00 PM FAMILY DEVELOPMENT EXTENSION SPECIALIST DIFFERENTIAL AUTO Routine 11/19/2024 6:0 0 PM FAMILY DEVELOPMENT EXTENSION SPECIALIST CBC WITH AUTO DIFFERENTIAL Routine 11/19/2024 6:00 PM FAMILY DEVELOPMENT EXTENSION SPECIALIST BASIC METABOLIC PANEL Routine 11/19/2024 6:00 PM FAMILY DEVELOPMENT EXTENSION SPECIALIST POCT ACTIVATED CLOTTING TIME, LOW RANGE Routine 11/19/2024 4:42 PM FAMILY DEVELOPMENT EXTENSION SPECIALIST POCT ACTIVATED CLOTTING TIME, LOW RANGE Routine 11/19/2024 3:23 PM FAMILY DEVELOPMENT EXTENSION SPECIALIST LEFT HEART CATHETERIZATION WITH CORONARY ANGIOGRAPHY AND WITH AND WITHOUT LEFT VENTRICULOGRAM Routine 11/19/2024 2:50 PM FAMILY DEVELOPMENT EXTENSION SPECIALIST Chest pain, unspecified type POCT ACTIVATED CLOTTING TIME, LOW RANGE Routine 11/19/2024 2:49 PM FAMILY DEVELOPMENT EXTENSION SPECIALIST POCT ACTIVATED CLOTTING TIME, LOW RANGE Routine 11/19/2024 2:30 PM FAMILY DEVELOPMENT EXTENSION SPECIALIST POCT ACTIVATED CLOTTING TIME, LOW RANGE Routine 11/19/2024 2:01 PM FAMILY DEVELOPMENT EXTENSION SPECIALIST TYPE AND SCREEN Timed 11/19/2024 2:01 PM FAMILY DEVELOPMENT EXTENSION SPECIALIST POCT ACTIVATED CLOTTING TIME, LOW RANGE Routine 11/19/2024 1:53 PM FAMILY DEVELOPMENT EXTENSION SPECIALIST POCT ACTIVATED CLOTTING TIME, LOW RANGE Routine 11/19/2024 1:49 PM FAMILY DEVELOPMENT EXTENSION SPECIALIST POCT OXYHEMOGLOBIN - DEVICE Routine 11/19/2024 1:27 PM FAMILY DEVELOPMENT EXTENSION SPECIALIST POCT OXYHEMOGLOBIN - DEVICE Routine 11/19/2024 1:26 PM FAMILY DEVELOPMENT EXTENSION SPECIALIST POCT OXYHEMOGLOBIN - DEVICE Routine 11/19/2024 1:26 PM FAMILY DEVELOPMENT EXTENSION SPECIALIST POC BLOOD GAS AND CHEMISTRIES, ARTERIAL Routine 11/19/2024 11:45 AM FAMILY DEVELOPMENT EXTENSION SPECIALIST ECG 12-LEAD Routine 11/19/2024 11:16 AM FAMILY DEVELOPMENT EXTENSION SPECIALIST SCAN - LABS 11/17/2024 CBC WITH AUTO DIFFERENTIAL Routine 11/16/2024 1:57 PM FAMILY DEVELOPMENT EXTENSION SPECIALIST S/P TAVR (transcatheter aortic valve replacement) Chest pain, unspecified type BASIC METABOLIC PANEL Routine 11/16/2024 1:57 PM FAMILY DEVELOPMENT EXTENSION SPECIALIST S/P TAVR (transcatheter aortic valve replacement) Chest pain, unspecified type TRANSTHORACIC ECHO (TTE) COMPLETE W DOPPLER/CF W CONTRAST Routine 11/10/2024 4:05 PM FAMILY DEVELOPMENT EXTENSION SPECIALIST Acute diastolic heart failure (CMS/HCC) (HCC) HLA ANTIBODY SCREEN BY PRA OR SAB PER SCHEDULE (CLASS I AND CLASS II) Routine 11/05/2024 10:00 AM FAMILY DEVELOPMENT EXTENSION SPECIALIST ESRD (end stage renal disease) (CMS/HCC) (HCC) HLA ANTIBODY SCREEN - SAB (CLASS I AND CLASS II) Routine 09/20/2024 10:00 AM FAMILY DEVELOPMENT EXTENSION SPECIALIST ESRD (end stage renal disease) (CMS/HCC) (HCC) HLA ANTIBODY SCREEN BY PRA OR SAB PER SCHEDULE (CLASS I AND CLASS II) Routine 09/20/2024 10:00 AM FAMILY DEVELOPMENT EXTENSION SPECIALIST ESRD (end stage renal disease) (CMS/HCC) (HCC) HEPATITIS C ANTIBODY Routine 03/06/2023 10:19 AM CDT ESRD (end stage renal disease) (CMS/HCC) (HCC) from Last 3 Months or Most Recently Relevant to Health Maintenance Results * (ABNORMAL) eGFR (11/19/2024 6:00 PM FAMILY DEVELOPMENT EXTENSION SPECIALIST) eGFR 3(L) >=60 mL/min/1. 73 m2 Comment: [...] last reviewed 2021. Blood 11/19/2024 6:00 PM FAMILY DEVELOPMENT EXTENSION SPECIALIST 11/19/2024 6:10 PM FAMILY DEVELOPMENT EXTENSION SPECIALIST us Luca Medrano MD LAB BLOOD ORDERABLES Final R esult [facility] Department [place] [address] * (ABNORMAL) Differential, auto (11/19/2024 6:00 PM FAMILY DEVELOPMENT EXTENSION SPECIALIST) Neutrophil abs 6.5 1.5 - 6.5 K/cumm Imm gran abs 0.0 0.0 - 0.1 K/cumm [facility] Lymphocyte abs 0.5(L) 0.8 - 3.3 K/cumm [facility] Monocyte abs 0.3 0.2 - 0.8 K/cumm [facility] Eosinophil abs 0.1 0.0 - 0.5 K/cumm [facility] Basophil abs 0.0 0.0 - 0.1 K/cumm [facility] Neutrophil pct 87.7 % [facility] Comment: Interpretive Data Percent cell count reference ranges are not reported, since discordance with absolute values may lead to misinterpretation of CBC data. Current Interpretive Data was last revised on 2018. Imm gran pct 0.3 % [facility] Comment: Interpretive Data Percent cell count reference ranges are not reported, since discordance with absolute values may lead to misinterpretation of CBC data. Current Interpretive Data was last revised on 2018. Lymphocyte pct 6.8 % [facility] Comment: Interpretive Data Percent cell count reference ranges are not reported, since discordance with absolute values may lead to misinterpretation of CBC data. Current Interpretive Data was last revised on 2018. Monocyte pct 3.4 % [facility] Comment: Interpretive Data Percent cell count reference ranges are not reported, since discordance with absolute values may lead to misinterpretation of CBC data. Current Interpretive Data was last revised on 2018. Eosinophil pct 1.5 % [facility] Comment: Interpretive Data Percent cell count reference ranges are not reported, since discordance with absolute values may lead to misinterpretation of CBC data. Current Interpretive Data was last revised on 2018. Basophil pct 0.3 % [facility] Comment: Interpretive Data Percent cell count reference ranges are not reported, since discordance with absolute values may lead to misinterpretation of CBC data. Current Interpretive Data was last revised on 2018. Blood 11/19/2024 6:00 PM FAMILY DEVELOPMENT EXTENSION SPECIALIST 11/19/2024 6:04 PM FAMILY DEVELOPMENT EXTENSION SPECIALIST us Luca Medrano MD LAB BLOOD ORDERABLES Final R esult [facility] Department [place] [address] * (ABNORMAL) CBC with auto differential (11/19/2024 6:00 PM FAMILY DEVELOPMENT EXTENSION SPECIALIST) WBC 7.4 3.8 - 9.9 K/cumm Hgb 11.6(L) 11.9 - 15.5 g/dL [facility] Hct 36.7 35.6 - 45.5 % [facility] Plt 150 150 - 400 K/cumm [facility] MPV 10.6 9.1 - 12.3 fL [facility] RBC 4.22 3.90 - 5.20 M/cumm [facility] MCV 87.0 81.3 - 96.4 fL [facility] MCH 27.5 27.1 - 33.3 pg [facility] MCHC 31.6(L) 32.3 - 35.7 g/dL [facility] RDW CV 14.6 11.1 - 14.9 % [facility] RDW SD 46.1 35.7 - 48.1 fL [facility] NRBC abs 0.00 0.00 - 0.01 K/cumm [facility] Blood 11/19/2024 6:00 PM FAMILY DEVELOPMENT EXTENSION SPECIALIST 11/19/2024 6:04 PM FAMILY DEVELOPMENT EXTENSION SPECIALIST us Luca Medrano MD LAB BLOOD ORDERABLES Final R esult [facility] Department [place] [address] * (ABNORMAL) Basic metabolic panel (11/19/2024 6:00 PM FAMILY DEVELOPMENT EXTENSION SPECIALIST) [facility] Sodium 130(L) 135 - 145 mmol/L Potassium, pl 4.3 3.3 - 4.9 mmol/L [facility] Chloride 90(L) 97 - 110 mmol/L [facility] CO2 23 22 - 32 mmol/L [facility] Anion gap 17(H) 2 - 15 mmol/L [facility] BUN 57(H) 6 - 25 mg/dL [facility] Creatinine 13.87(H) 0.60 - 1.10 mg/dL [facility] Glucose 150 70 - 199 mg/dL [facility] Comment: Interpretive Data Fasting glucose >/= 126 [...] Calcium 6.9(L) 8.5 - 10.3 mg/dL [facility] Blood 11/19/2024 6:00 PM FAMILY DEVELOPMENT EXTENSION SPECIALIST 11/19/2024 6:04 PM FAMILY DEVELOPMENT EXTENSION SPECIALIST Luca Medrano MD LAB BLOOD ORDERABLES Final R esult Performing Organization Address City/[facility] Co de Phone Number [facility] [place] [employer] [place] [address] * (ABNORMAL) POCT Activated clotting time, low range (11/19/2024 4:42 PM FAMILY DEVELOPMENT EXTENSION SPECIALIST) ACT 171(H) 123 - 168 sec POC Performer [id number] [facility] POC Device Number [id number] [facility] Blood 11/19/2024 4:42 PM FAMILY DEVELOPMENT EXTENSION SPECIALIST 11/19/2024 4:42 PM FAMILY DEVELOPMENT EXTENSION SPECIALIST us Luca Medrano MD LAB POCT ORDERABLES - DEVICE Final Result Performing Organization Address City/[facility]/ZIP Co de Phone Number [facility] [place] [employer] [place] [address] * (ABNORMAL) POCT Activated clotting time, low range (11/19/2024 3:23 PM FAMILY DEVELOPMENT EXTENSION SPECIALIST) ACT 266(H) 123 - 168 sec POC Performer [id number] [facility] POC Device Number [id number] [facility] Blood 11/19/2024 3:23 PM FAMILY DEVELOPMENT EXTENSION SPECIALIST 11/19/2024 3:23 PM FAMILY DEVELOPMENT EXTENSION SPECIALIST us Luca Medrano MD LAB POCT ORDERABLES - DEVICE Final Result [facility] Department [place] [address] * LEFT HEART CATHETERIZATION WITH CORONARY ANGIOGRAPHY AND WITH AND WITHOUT LEFT VENTRICULOGRAM (11/19/2024 2:50 PM FAMILY DEVELOPMENT EXTENSION SPECIALIST) Anatomical Region Laterality Modality X-Ray Angiograph y Impressions 11/19/2024 4:18 PM FAMILY DEVELOPMENT EXTENSION SPECIALIST Very severe stenosis of the vein graft [...] attempt intervention again. I would suggest a [place] 1 0 guiding catheter and consideration for shockwave versus atherectomy. I was present during the entire procedure and personally dictated or confirmed the above report. Luca Medrano MD Narrative 11/19/2024 4:18 PM FAMILY DEVELOPMENT EXTENSION SPECIALIST Procedure: CORONARY ANGIOGRAM / RIGHT HEART CATHETERIZATION/percutaneous coronary intervention Patient: Estuardo Copeland is a 54 y.o. female : 1970 MR number: [id number] Date of Service: 11/19/2024 Telephonic Rn: Luca Medrano MD Fellow: Josesito Pabon MD [...] obtained. The patient was brought to the cardiac cath lab radiology technologist and placed on the table Bilateral groins [...] coronary artery angiogram performed using a 6 Portuguese JR4 catheter Right heart catheterization preformed with VANI Sheridan Percutaneous coronary intervention performed on the Proximal saphenous vein graft to the LAD. This was an ACC/AHA Type C. Initial Lesion Length 12mm and final lesion Length 15mm. Initial KAROLINA Flow 3 with visible thrombus present Final KAROLINA Flow 3. Equipment used: 6 3DRC, [employer] IVUS Catheter, scion blue wire, 0.9 mm laser atherectomy catheter, 2 5 x 15 NC emerge balloon, a 3 0 x 12 mm AngioSculpt balloon, 4 0 by 15 NC emerge balloon, 4 0 x 15 resolute drug-eluting stent, 4 5 x 12 mm NC emerge balloon Attempted intervention on the ostial left main equipment used was a 6 Portuguese JL 3.5 guiding catheter, she on black [...] than 300. We took up a 6 Portuguese 3D RC that sat reasonably well in [...] or perforation. We then took our 6 Portuguese JL 3.5 guiding catheter attempted to intubate [...] right femoral artery and placed a 6 Portuguese Angio-Seal. Manual compression was performed on the venous sheath. COMPLICATIONS: None DIAGNOSTIC Luca Medrano MD CV CARDIAC CATH PROCEDURES F inal Result * (ABNORMAL) POCT Activated clotting time, low range (11/19/2024 2:49 PM FAMILY DEVELOPMENT EXTENSION SPECIALIST) ACT 260(H) 123 - 168 sec POC Performer [id number] [facility] POC Device Number [id number] [facility] Blood 11/19/2024 2:49 PM FAMILY DEVELOPMENT EXTENSION SPECIALIST 11/19/2024 2:49 PM FAMILY DEVELOPMENT EXTENSION SPECIALIST Luca Medrano MD LAB POCT ORDERABLES - DEVICE Final Result Performing Organization Address [facility] Co de Phone Number [facility] [place] [place] [address] * (ABNORMAL) POCT Activated clotting time, low range (11/19/2024 2:30 PM FAMILY DEVELOPMENT EXTENSION SPECIALIST) ACT 385(H) 123 - 168 sec POC Performer [id number] [facility] POC Device Number [id number] [facility] Blood 11/19/2024 2:30 PM FAMILY DEVELOPMENT EXTENSION SPECIALIST 11/19/2024 2:30 PM FAMILY DEVELOPMENT EXTENSION SPECIALIST Luca Medrano MD LAB POCT ORDERABLES - DEVICE Final Result Performing Organization Address City/[facility]/ZIP Co de Phone Number [facility] Department [place] [address] * (ABNORMAL) POCT Activated clotting time, low range (11/19/2024 2:01 PM FAMILY DEVELOPMENT EXTENSION SPECIALIST) ACT >400(H) 123 - 168 sec POC Performer [id number] [facility] POC Device Number [id number] [facility] Blood 11/19/2024 2:01 PM FAMILY DEVELOPMENT EXTENSION SPECIALIST 11/19/2024 2:01 PM FAMILY DEVELOPMENT EXTENSION SPECIALIST us Luca Medrano MD LAB POCT ORDERABLES - DEVICE Final Result Performing Organization Address [facility]/[place] [address] * Type and screen (11/19/2024 2:01 PM FAMILY DEVELOPMENT EXTENSION SPECIALIST) ABO Rh B Positive Jorge A, indirect Negative [facility] Blood 11/19/2024 2:01 PM FAMILY DEVELOPMENT EXTENSION SPECIALIST 11/19/2024 2:14 PM FAMILY DEVELOPMENT EXTENSION SPECIALIST Narrative [facility] - 11/19/2024 3:08 PM FAMILY DEVELOPMENT EXTENSION SPECIALIST Has the patient had Daratumumab or Isatuximab in the past 6 months?->Unknown us Luca Medrano MD LAB BLOOD BANK TEST ORDERABL ES Final Result Performing Organization Address City/[facility] Co de Phone Number [facility] [place] [address] * (ABNORMAL) POCT Activated clotting time, low range (11/19/2024 1:53 PM FAMILY DEVELOPMENT EXTENSION SPECIALIST) ACT >400(H) 123 - 168 sec POC Performer [id number] [facility] POC Device Number [id number] [facility] Blood 11/19/2024 1:53 PM FAMILY DEVELOPMENT EXTENSION SPECIALIST 11/19/2024 1:53 PM FAMILY DEVELOPMENT EXTENSION SPECIALIST Luca Medrano MD LAB POCT ORDERABLES - DEVICE Final Result Performing Organization Address [facility] Co de Phone Number [facility] [place] [employer] [place] [address] * (ABNORMAL) POCT Activated clotting time, low range (11/19/2024 1:49 PM FAMILY DEVELOPMENT EXTENSION SPECIALIST) ACT 78(L) 123 - 168 sec POC Performer [id number] [facility] POC Device Number [id number] [facility] Blood 11/19/2024 1:49 PM FAMILY DEVELOPMENT EXTENSION SPECIALIST 11/19/2024 1:49 PM FAMILY DEVELOPMENT EXTENSION SPECIALIST Luca Medrano MD LAB POCT ORDERABLES - DEVICE Final Result Performing Organization Address [facility] de Phone Number [facility] [place] [employer] [place] [address] * (ABNORMAL) POCT oxyhemoglobin (11/19/2024 1:27 PM FAMILY DEVELOPMENT EXTENSION SPECIALIST) BIOASSAYIST Oxyhemoglobin 91.6 >=65.0 % BIOASSAYIST Hemoglobin 11.2(L) 11.9 - 15.5 g/dL [facility] BIOASSAYIST O2 content 14.3(L) 15.0 - 22.0 Vol % [facility] Anatomic Site aPOC Aorta [facility] Blood 11/19/2024 1:27 PM FAMILY DEVELOPMENT EXTENSION SPECIALIST 11/19/2024 1:27 PM FAMILY DEVELOPMENT EXTENSION SPECIALIST us Luca Medrano MD LAB POCT ORDERABLES - DEVICE Final Result Performing Organization Address [facility] Co de Phone Number [facility] [employer] [place], [place] [id number] * (ABNORMAL) POCT oxyhemoglobin (11/19/2024 1:26 PM FAMILY DEVELOPMENT EXTENSION SPECIALIST) BIOASSAYIST Oxyhemoglobin 56.2(L) >=65.0 % BIOASSAYIST Hemoglobin 11.0(L) 11.9 - 15.5 g/dL [facility] BIOASSAYIST O2 content 8.6(L) 15.0 - 22.0 Vol % [facility] Anatomic Site aPOC Pulm Artery [facility] Blood 11/19/2024 1:26 PM FAMILY DEVELOPMENT EXTENSION SPECIALIST 11/19/2024 1:26 PM FAMILY DEVELOPMENT EXTENSION SPECIALIST Luca Medrano MD LAB POCT ORDERABLES - DEVICE Final Result Performing Organization Address [facility] de Phone Number [facility] [place] [address] * (ABNORMAL) POCT oxyhemoglobin (11/19/2024 1:26 PM FAMILY DEVELOPMENT EXTENSION SPECIALIST) [facility] BIOASSAYIST Oxyhemoglobin 56.6(L) >=65.0 % BIOASSAYIST Hemoglobin 10.9(L) 11.9 - 15.5 g/dL [facility] BIOASSAYIST O2 content 8.6(L) 15.0 - 22.0 Vol % [facility] Anatomic Site aPOC Pulm Artery [facility] Blood 11/19/2024 1:26 PM FAMILY DEVELOPMENT EXTENSION SPECIALIST 11/19/2024 1:26 PM FAMILY DEVELOPMENT EXTENSION SPECIALIST Luca Medrano MD LAB POCT ORDERABLES - DEVICE Final Result Performing Organization Address [facility] de Phone Number [facility] [place] [address] * POC Blood Gas and Chemistries, Arterial - (11/19/2024 11:45 AM FAMILY DEVELOPMENT EXTENSION SPECIALIST) [facility] K POC 3.7 3.3 - 4.9 mmol/L Comment: Interpretive Data Not all point of care methods assess for hemolysis. Confirm with instrument and retest K+ if not consistent with clinical signs and symptoms. Current Interpretive Data was last revised on 2024. Blood 11/19/2024 11:4 5 AM FAMILY DEVELOPMENT EXTENSION SPECIALIST 11/19/2024 11:45 AM FAMILY DEVELOPMENT EXTENSION SPECIALIST Luca Medrano MD LAB POCT ORDERABLES - DEVICE Final Result Performing Organization Address [facility]/ZIP Co de Phone Number [facility] Department [place] [address] * ECG 12 lead (11/19/2024 11:16 AM FAMILY DEVELOPMENT EXTENSION SPECIALIST) Ventricular Rate EKG/Min 90 BPM [facility] QRS-Interval (MSEC) 84 ms [facility] QT-Interval (MSEC) 404 ms [facility] QTc 494 ms [facility] R [place] 6 degrees [facility] T [place] 144 degrees [facility] Diagnosis Atrial fibrillation Electronic atrial pacemaker Minimal voltage criteria for LVH, may be normal variant ( [place] product ) Septal infarct , age undetermined T wave abnormality, consider lateral ischemia Abnormal ECG Confirmed by HARJINDER HANDY M.D ([id number]) on 11/19/2024 3:59:31 PM [facility] 11/19/2024 11:1 6 AM FAMILY DEVELOPMENT EXTENSION SPECIALIST 11/19/2024 3:59 PM FAMILY DEVELOPMENT EXTENSION SPECIALIST us Luca Medrano MD ECG ORDERABLES Final Result Performing Organization Address [facility] de Phone Number [facility] * SCAN - LABS (11/17/2024) us Provider Scanning Final Result * CBC with auto differential (11/16/2024 1:57 PM FAMILY DEVELOPMENT EXTENSION SPECIALIST) WBC 7.2 3.4 - 10.8 x10E3/uL [facility] [...] [facility] - 01 Blood 11/16/2024 1:57 PM FAMILY DEVELOPMENT EXTENSION SPECIALIST 11/16/2024 Narrative [facility] - 11/17/2024 8:14 AM FAMILY DEVELOPMENT EXTENSION SPECIALIST Performed at: [address] [id number] Pipe Cleaner: Marco Antonio Paiz PhD, Phone: [phone] us Luca Medrano MD LAB BLOOD ORDERABLES Final R esult [facility] * (ABNORMAL) Basic metabolic panel (11/16/2024 1:57 PM FAMILY DEVELOPMENT EXTENSION SPECIALIST) [facility] Glucose 88 70 - [...] [facility] - 01 Blood 11/16/2024 1:57 PM FAMILY DEVELOPMENT EXTENSION SPECIALIST 11/16/2024 Narrative [facility] - 11/17/2024 12:09 PM FAMILY DEVELOPMENT EXTENSION SPECIALIST Performed at: [facility] [id number] Pipe Cleaner: Marco Antonio Paiz PhD, Phone: [phone] us Luca Medrano MD LAB BLOOD ORDERABLES Final R esult [facility] - * TRANSTHORACIC ECHO (TTE) COMPLETE W DOPPLER/CF W CONTRAST (11/10/2024 4:05 PM FAMILY DEVELOPMENT EXTENSION SPECIALIST) LV EF % CONS SCIMAGE Anatomical Region Laterality Modality Ultrasound 11/10/2024 2:55 PM FAMILY DEVELOPMENT EXTENSION SPECIALIST Narrative 11/11/2024 9:34 AM FAMILY DEVELOPMENT EXTENSION SPECIALIST [facility] Cardiac Diagnostic Lab [address] , [address] [place] [address] Transthoracic Echocardiographic Report Patient Name: ESTUARDO COPELAND M : 1970 (54y ) Gender: F Study Date: 11/10/2024 02:55:48 PM Ht(Inch): 64 Wt(Lb): 115.08 BSA: 1.54 Tool Marker: GERA [place] Location: [facility] Order Provider: LUCA MEDRANO Heart Rate: 76 BMI: 19.75 BP: 94/60 Quality: Technically difficult study due to limited acoustic windows. Ref Provider: LUCA MEDRANO PROCEDURES: Echocardiographic Report: ([id number], [id number], [id number]) Transthoracic complete echo with strain imaging and contrast, 2D, spectral and tissue Doppler, color flow Doppler, M- mode. Additional Procedures: ([id number]) 3D echocardiographic imaging from [employer]. Contrast: [...] [ 46.00 - 106.00 ] AI Decel [place] 1.58 m/s2 ESV Mod 2C 14.03 ml [...] By: Silver Levin MD 11/11/2024 9:32:57 AM FAMILY DEVELOPMENT EXTENSION SPECIALIST Electronically Signed By: Silver Levin MD 11/11/2024 9:32:57 AM FAMILY DEVELOPMENT EXTENSION SPECIALIST Procedure Note Silver Levin MD - 11/11/2024 [facility] Cardiac Diagnostic Lab [address] [place] [address] Transthoracic Echocardiographic Report Patient Name: ESTUARDO COPELAND M : 1970 (54y ) Gender: F Study Date: 11/10/2024 02:55:48 PM Ht(Inch): 64 Wt(Lb): 115.08 BSA: 1.54 Tool Marker: GERA [place] Location: [facility] [place] Order Provider:LUCA MEDRANO Heart Rate: 76 BMI: 19.75 BP: 94/60 Quality: Technically difficult studydue to limited acoustic windows. Ref Provider: LUCA MEDRANO PROCEDURES: Echocardiographic Report: ([id number], [id number], [id number]) Transthoracic completeecho with strain imaging and contrast, 2D, spectral and tissue Doppler, color flow Doppler,M- mode. Additional Procedures: ([id number]) 3D echocardiographic imaging from [email or web address]. Contrast: 0.4 ml Optison Administered, (2.6 ml [...] EDV Mod 4C 60.63 ml AI Decel [id number] sec EDV Mod BP 56.21 ml [ 46.00 - 106.00 ] AI Decel Sl[place]1.58 m/s2 ESV Mod 2C 14.03 ml AI FVP777.67 msec ESV Mod 4C 21.21 ml MV [...] cm LA Length 4C 5.48 cm MV CZW764.85 msec [ 20.00 - 100.00 ] LA Volume 2C 34.1 ml MVA PHT2.18 cm2 LA Volume 4C 31.3 ml MV Decel Yyuv928.53 msec [ 104.00 - 258.00 ] LA [...] cm [ 2.70 - 3.70 ] MR QYR499.8 cm Ao Root Index 1.32 cm/m2 MR [...] By: Silver Levin MD 11/11/2024 9:32:57 AM FAMILY DEVELOPMENT EXTENSION SPECIALIST Electronically Signed By: Silver Levin MD 11/11/2024 9:32:57 AM FAMILY DEVELOPMENT EXTENSION SPECIALIST Luca Medrano MD CV ECHO PROCEDURES Final Res ult * HLA Antibody Screen by PRA or SAB per Schedule (Class I and Class II) (11/05/2024 10:00 AM FAMILY DEVELOPMENT EXTENSION SPECIALIST) Blood 11/05/2024 10:0 0 AM FAMILY DEVELOPMENT EXTENSION SPECIALIST Narrative [facility] - FAMILY DEVELOPMENT EXTENSION SPECIALIST Sample received in lab and stored. No testing performed at this time. Salina Hector MD LAB BLOOD ORDERABLES Final Resul t Performing Organization Address City/[facility]/ZIP Co de Phone Number [facility] * HLA Antibody Screen by PRA or SAB per Schedule (Class I and Class II) (09/20/2024 10:00 AM FAMILY DEVELOPMENT EXTENSION SPECIALIST) Blood 09/20/2024 10:0 0 AM FAMILY DEVELOPMENT EXTENSION SPECIALIST Narrative [facility] - FAMILY DEVELOPMENT EXTENSION SPECIALIST Sample received in lab. Single Antigen Antibody Screen ordered. Salina Hector MD LAB BLOOD ORDERABLES Final Resul t Performing Organization Address City/[facility] Co de Phone Number [facility] * HLA Antibody Screen - SAB (Class I and Class II) (09/20/2024 10:00 AM FAMILY DEVELOPMENT EXTENSION SPECIALIST) Class I Treatment EDTA [facility] Class I [...] DPB1*01:01, DPB1*03:01 [facility] 09/20/2024 10:0 0 AM FAMILY DEVELOPMENT EXTENSION SPECIALIST 09/24/2024 12:48 PM FAMILY DEVELOPMENT EXTENSION SPECIALIST Narrative [facility] - 09/24/2024 12:48 PM FAMILY DEVELOPMENT EXTENSION SPECIALIST Single-antigen HLA antibody screen is performed on serum samples using a method developed and validated by the [facility] laboratory based on an FDA-approved IVD kit (LABScreen Single-Antigen, [employer], [place], [place]). All patient serum samples are pretreated with EDTA before the screen to prevent complement interference. Additional serum treatments, such as adsorption and DTT treatment, may be performed as indicated. Interpretive comments: Low risk: MFI [id number]. Moderate risk: MFI 4922-9201. Increased risk: MFI >/= 5000. The presence [...] antigens to avoid. Testing performed at the [facility], [address] [place] [address], 5th floor, [facility], [place], [address]. [facility] # [id number]. Rosa Millan, Ph.D., Portainer Operator, HLA Laboratory Wilmer Prescott M.D., Ph.D., [employer], HLA Laboratory Alma Payton, Ph.D., CLIA [employer], [facility] Current methodology and interpretive comments last revised on 11/15/2022. us Salina Hector MD LAB BLOOD ORDERABLES Final Resul t [facility] * Hepatitis C antibody (03/06/2023 10:19 AM CDT) Hep C Ab Nonreactive Nonreactive [facility] Comment:Antibodies to HCV no t detected. Does NOT exclude the possibility of recent exposure to HCV. Current interpretive data was last revised on 22 Blood 03/06/2023 10:1 9 AM CDT 03/06/2023 10:38 AM CDT us Maria Fernanda Bryant MD LAB MICROBIOLOGY - GENERAL ORDERABLES Final Result [facility] Department [place] [address] from Last 3 Months or Most Recently Relevant to Health Maintenance Insurance [facility] CHOICE PLUS MEDICARE [facility] CHOICE PLUS [facility] CHOICE PLUS MEDICARE MEDICARE [facility] CHOICE PLUS TRANSPLANT [facility] Advance Directives For more information, please contact: [phone] * Full Code (Latest Code Status on [...] 7:30 PM 07/25/2022 6:47 PM Care Teams Electronic Funds Transfer Coordinator Relationship Specialty Start Date End Date Pal Downey DO PCP - General Internal Medicine 01/25/21 Quinton Rowan MD Referring Physician Cardiology 01/09/19 Tami Flores, TONO [address] [address] Registered Nurse Rn Vascular 01/25/21 Cricket Escalante MD [address] [address] Referring Physician Nephrology 03/24/21 Gael Sprague MD PhD [address] [address] Fellow Endocrinology Diabetes & Metabolism 03/24/21 Brad Turner MD [address] [address] Consulting Physician Obstetrics and Gynecology 03/24/21 Margarita Montoya MD [address] [facility] [address] [address] Consulting Physician Trauma Surgery 12/27/21 Luca Medrano MD [address] [facility] [address] [place] [address] Consulting Physician Cardiology 08/03/22 Pb Galloway MD [address] [facility] [phone] [place] [address] Cardiothoracic Surgery 05/25/24 Felipe Gerber MD [address] [facility] [phone] [place] [address] Consulting Physician Cardiology 05/25/24
--- OUTSIDE RECORDS SUMMARY | 2024-11-27 02:09 | XMS_ITS | Encounter Summary ---
Author Organization [facility] [employer] [facility] Address [address] [place] [address] Phone Care Team Providers Care District Court Reporter Name Role Phone Quinton Rowan MD Unavailable [phone] Pal Downey DO Primary Care Provider [phone] Tami Flores RN Unavailable [phone] Cricket Escalante MD Unavailable Gael Sprague MD PhD Unavailable Brad Turner MD Unavailable [phone] Margarita Montoya MD Unavailable Luca Lott MD Unavailable [phone] Pb aGlloway MD Unavailable Felipe Gerber MD Unavailable [phone] Encounter Details Date Type Department Care [...] on file Legal Sex Female 4:06 AM DATA MIGRATION LEAD Gender Identity Female 01/16/2024 11:18 AM CDT [...] documented as of this encounter Care Teams District Court Reporter Relationship Specialty Start Date End Date Pal Downey DO PCP - General Internal Medicine 01/25/21 Quinton Rowan MD Referring Physician Cardiology 01/09/19 Tami Flores RN [address] [address] Registered Nurse General Manager Road Production 01/25/21 Cricket Escalante MD [address] [address] Referring Physician Nephrology 03/24/21 Gael Sprague MD PhD [address] [address] Fellow Endocrinology Diabetes & Metabolism 03/24/21 Brad Turner MD [address] [address] Consulting Physician Obstetrics and Gynecology 03/24/21 Margarita Montoya MD [address] [id number] Consulting Physician Trauma Surgery 12/27/21 Luca Lott MD [address] [address] Consulting Physician Cardiology 08/03/22 Pb Galloway MD [address] [facility] [id number] [place] [address] Cardiothoracic Surgery 05/25/24 Felipe Gerber MD [address] [facility] [phone] [place] [address] Consulting Physician Cardiology 05/25/24 documented as of this encounter
== END 2024-11-27 02:08 | disposition left against medical advice (07) ==
LOC: ANHED 11-27 02:05
PROVIDERS: Emergency Provider Emergency Medicine; PCP Internal Medicine
DX: R10.30 Lower abdominal pain, unspecified (principal)
CPT/HCPCS: 36415; 80053; 83690; 85025; 99199

== ENCOUNTER 2024-11-27 10:14 | Outpatient (CLI) | payer MEDICARE, OTHER, SELFPAY ==
--- NOTE | ~2024-11-27 | CT_ITS ---
EXAMINATION: CT abdomen pelvis wo con DATE: 11/27/2024 10:39 INDICATION: Flank pain. TECHNIQUE: Computed tomography (CT) of the abdomen and pelvis was performed without intravenous contr ast. Automated exposure control and iterative reconstruction technique were employed. The dose-length product was 188.73 mGy-cm. COMPARISON: CT abdomen and pelvis 12/17/2023 FINDINGS: The visualized portions of lung bases demonstrate smooth septal thickening and groundglass opacities, consistent with pulmonary edema. There are small pleural effusions, left worse than right. There are pacer wires in right atrium and right ventricle. Median sternotomy wires are noted. There are bilateral breast implants. There are numerous cysts in the liver measuring up to 4.3 cm. The gall bladder is normal in size and contains contrast. The spleen, pancreas, and adrenal glands are normal. There are innumerable cysts and hemorrhagic cysts in the kidneys. Right kidney measures 17.8 x 7.7 x 9.2 cm. Left kidney measures 17.0 x 6.9 x 9.6 cm. There are numerous calcifications in each kidney, at least most of which are parenchymal. There are a few bilateral kidney stones measuring up to at le ast 2 mm. There is no hydronephrosis. A peritoneal dialysis catheter is noted. There are no dilated l oops of bowel. The appendix is normal. There is no free intraperitoneal fluid. There is 21 degrees l evoscoliosis of thoracolumbar spine. IMPRESSION: 1. Mild pulmonary edema. 2. Small pleural effusions. 3. Polycystic kidney disease. Note that hemorrhagic cysts and renal cell carcinoma may have the same appearance on noncontrast CT, and incidental neoplasm cannot be excluded. Reviewed, dictated and finalized at location [facility] IMPRESSION: 1. Mild pulmonary edema. 2. Small pleural effusions. 3. Polycystic kidney disease. Note that hemorrhagic cysts and renal cell carcin neela may have the same appearance on noncontrast CT, and incidental neoplasm can not be excluded.
--- OUTSIDE RECORDS SUMMARY | 2024-11-27 10:59 | XMS_ITS | Referral Summary ---
Author Organization [facility] [employer] Address [address] [place] [address] Care Team Providers Care User Experience Researcher Name Role Phone Danielle Hawkins Primary Care Provider Unavailabl e Source Comments [facility] [employer],non-owned Affiliates and Associated Physician Practices is amultiple site organization consisting of ambulatory clinics and hospital sitesin [place], [place], [place] and [place]. This disclosure is being madepursuant to the Care Everywhere program and may not contain all information available regarding this patient. Last updated 18.[facility] [employer] Allergies Active Allergy Reactions Criticality Noted Date [...] Comments Blood Pressure 145/91 09/06/2016 9:59 AM E LEARNING DESIGNER Pulse 79 09/06/2016 9:59 AM E LEARNING DESIGNER Temperature 36.4 C (97.5 F) 12/23/2015 3:20 PM E LEARNING DESIGNER Respiratory Rate 12 09/06/2016 9:59 AM E LEARNING DESIGNER Oxygen Saturation 100% 12/23/2015 3:20 PM E LEARNING DESIGNER Inhaled Oxygen Concentration - - Weight 60.8 kg (134 lb) 09/06/2016 9:59 AM E LEARNING DESIGNER Height 162.6 cm (5' 4 ) 09/06/2016 9:59 AM E LEARNING DESIGNER Body Mass Index 23 09/06/2016 9:59 AM E LEARNING DESIGNER Plan of Treatment Not on file Care Teams User Experience Researcher Relationship Specialty Start Date End Date Danielle Hawkins Update Information PCP - General 04/29/15
--- OUTSIDE RECORDS SUMMARY | 2024-11-27 10:59 | XMS_ITS | Clinical Summary ---
Author Organization [facility] Address [address] [place] [address] Care Team Providers Care Taxation Inspector Name Role Phone Quinton Rowan MD Unavailable [phone] Pal Downey DO Primary Care Provider [phone] Tami Flores RN Unavailable Cricket Escalante MD Unavailable [phone] Gael Sprague MD PhD Unavailable Brad Turner MD Unavailable [phone] Margarita Montoya MD Unavailable Luca Medrano MD Unavailable Pb Galloway MD Unavailable [phone] Felipe Gerber MD Unavailable [phone] Allergies Active Allergy Reactions Criticality Noted [...] disease 07/08/2023 ESRD (end stage renal disease) ([facility]) 023 Assessment & Plan (05/21/2024 2:22 PM CDT): On peritoneal dialysis-management per renal team Chronic heart failure ([facility]) 08/02/2022 Assessment & Plan (05/24/2024 [...] telemetry, daily weights End stage renal disease ([facility]) 08/02/2022 Assessment & Plan (08/03/2022 9:30 AM CDT): -Hx of PCKD -Kidney transplant workup on hold until cardiac issues resolved -Started PD early 2021 -continue phoslo -renal consulted for PD assistance Shoulder pain 07/21/2022 Pre-transplant evaluation for end stage renal di sease 02/01/2022 Overview (02/01/2022): Added automatically from request for surgery [id number] Disorder of peritoneal dialysis catheter 022 Overview (12/22/2021): Added automatically from request for surgery [id number] Chronic kidney disease, stage V ([facility]) 2021 Overview (08/21/2023): Added automatically from request for surgery [id number] Sick sinus syndrome ([facility]) 11/02/2020 Diastolic heart failure 10/27/2019 [...] TR NSTEMI (non-ST elevated myocardial infarction) ( [facility]) 02/07/2019 Assessment & Plan (05/12/2019 [...] Assessment & Plan (02/25/2019 11:43 AM CDT): [facility] with 95% LAD lesion, had some RV [...] Assessment & Plan (02/19/2019 2:08 AM CDT): [facility] with 95% LAD lesion, had some RV [...] Assessment & Plan (02/16/2019 11:38 PM CDT): [facility] with 95% LAD lesion, had some RV [...] to 4.35 - valve team consulted, 02/09 [facility] with severe 1 vessel disease of ostial [...] (02/09/2019): Added automatically from request for surgery [id number] Assessment & Plan (05/17/2019 9:19 AM CDT): [...] (02/10/2019): Added automatically from request for surgery [id number] Assessment & Plan (05/24/2024 11:21 AM CDT): [...] with left shoulder pain similar to previous NH -EKG changes per OSH --Slight elevation in [...] currently stable Daily BMPs, while inpatient Home chicken hatchery helper is Dr. Escalante Continue lasix 40 [...] kidney disease, baseline Cr 2.4-2.6. F/b OSH chicken hatchery helper. Apparently discussions for potential need for renal txp being discussed. - Cr at baseline on adm - avoid nephrotoxins, renally dose meds - continue calcitriol 0.5 mcg/day - Cr 2.75, received pre-cath hydration, stable 2.7 Headache 05/02/2016 Moderate COPD (chronic obstr uctive pulmonary disease) ([facility]) 11/02/2015 Assessment & Plan (08/02/2022 [...] AM CDT): Hitesh TAVR 05/21 Followed by [facility], Dr. Medrano. CT TAVR [...] not a candidate for intervention [facility] Assessment & Plan (05/17/2019 9:28 AM [...] AV. Referred to valve team by primary stitcher operator Dr. Rowan. Seen 02/02 by valve team [...] around 2.4 Dr Escalante is her home chicken hatchery helper Assessment & Plan (02/23/2019 12:20 PM CDT): Pt above POW by 2 kg. Lasix on hold due to elevation in Creatinine Baseline creat is around 2.4 Dr Escalante is her home chicken hatchery helper Agitation requiring sedation protocol 02/14/2019 02/23/2019 [...] she had reactions to (?). Per OSH chicken hatchery helper's note in Care Everywhere, pt tried [...] Department Care Team Description 11/19/2024 2:02 PM CREATIVE SERVICES PRODUCER - 11/19/2024 3:42 PM CREATIVE SERVICES PRODUCER Surgery [facility] [address] [place] [address] Luca Medrano MD LEFT HEART CATHETERIZATION WITH CORONARY ANGIOGRAPHY AND WITH OR WITHOUT LEFT VENTRICULOGRAM [id number] 11/19/2024 11:04 AM CREATIVE SERVICES PRODUCER - 11/19/2024 7:20 PM CREATIVE SERVICES PRODUCER Hospital Encounter [facility] [place] [address] [place] [address] Luca Medrano MD Coronary artery disease involving [place] coronary artery of [place] heart with angina pectoris (HCC) [I25.119] (Primary Dx); Chest pain, unspecified type Discharge Disposition: Discharge to home or self care 11/18/2024 11:45 AM CREATIVE SERVICES PRODUCER Office Visit [facility] [address] [place] [address] 8th [place] [address] [place] [address] Lane Ramos MD PhD SSS (sick sinus syndrome) (CMS/HCC) (HCC) (Primary Dx) 11/18/2024 11:15 AM CREATIVE SERVICES PRODUCER Ancillary Procedure [facility] [address] [place] [address] 8th [place] [address] [place] [address] SSS (sick sinus syndrome) (CMS/HCC) (HCC) (Primary Dx); Fitting or adjustment of cardiac pacemaker 11/17/2024 Orders Only [facility] Scanning, Provider 11/10/2024 3:00 PM CREATIVE SERVICES PRODUCER Ancillary Procedure [facility] [place] [facility] [address] [place] [address] Acute diastolic heart failure (CMS/HCC) (HCC) 11/10/2024 Telephone [facility] [address] [facility] Medical Office Building [address] [place] [address] Luca Medrano MD [facility] 11/05/2024 10:00 AM CREATIVE SERVICES PRODUCER - 11/05/2024 11:59 PM CREATIVE SERVICES PRODUCER Hospital Encounter [facility] [address] [place] [address] ESRD (end stage renal disease) (CMS/HCC) (HCC) Discharge Disposition: Discharge to home or self care 11/05/2024 Orders Only [facility] [address] [facility] 8th [place] [address] [place] [address] Luca Medrano MD 11/04/2024 11:30 AM CREATIVE SERVICES PRODUCER Office Visit [facility] [address] [facility] Medical Office Building [address] [place] [address] Luca Medrano MD Acute diastolic heart failure (CMS/HCC) (HCC) (Primary Dx); Chronic systolic heart failure (CMS/HCC) (HCC); Coronary artery disease involving [place] coronary artery of [place] heart with angina pectoris (HCC) 09/23/2024 Orders Only [facility] [address] [facility] [address] [phone] [place] [address] Tami Flores, RN ESRD (end stage renal disease) (CMS/HCC) (HCC) (Primary Dx) 09/20/2024 10:00 AM CREATIVE SERVICES PRODUCER - 09/20/2024 11:59 PM CREATIVE SERVICES PRODUCER Hospital Encounter [facility] [address] [place] [address] ESRD (end stage renal disease) (CMS/HCC) (HCC) Discharge Disposition: Discharge to home or self care 09/11/2024 Telephone [facility] [address] [facility] [address] [phone] [place] [address] Mariann Bobo 09/10/2024 Telephone [facility] [address] [facility] [address] [phone] [place] [address] Mariann Bobo from Last 3 Months Immunizations [...] s/p resection Coronary artery disease invo lving [place] heart 02/07/2019 Added automatically from req uest for surgery [id number] (LAD, LCA) Volume overload 02/14/2019 Leukocytosis 02/21/2019 Pleural effusion 02/2019 Status post lef t thoracostomy 02/27/2019 Hypothyroidism 01/2019 Postoperative Anemia Personal history of other me dical treatment History of combined restrictive/obstructive lung disease, A-fib ([facility]) ([facility]) 01/2019 Postoperat servando paroxysmal A. 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[facility]) Spinal stenosis Polycystic kidney disease ESRD on peritoneal dialysis ([facility]) ([facility]) Heart murmur NH (myocardial infarction) ([facility]) CHF (congestive heart failur e) ([facility]) ([facility]) Nausea 05/10/2019 Aortic valve insufficiency, acquired 05/19/2024 [...] on file Legal Sex Female 4:06 AM CREATIVE SERVICES PRODUCER Gender Identity Female 01/16/2024 11:18 AM CDT Sexual Orientation Straight 01/16/2024 11 :18 AM CDT Obstetrics History Comments Status Post Hysterectomy Last Filed Vital Signs Vital Sign Reading Time Taken Comments Blood Pressure 130/75 11/19/2024 7:05 PM CREATIVE SERVICES PRODUCER Pulse 71 11/19/2024 7:05 PM CREATIVE SERVICES PRODUCER Temperature 36.6 C (97.9 F) 11/19/2024 11:25 AM CREATIVE SERVICES PRODUCER Respiratory Rate 21 11/19/2024 7:05 PM CREATIVE SERVICES PRODUCER Oxygen Saturation 94% 11/19/2024 7:05 PM CREATIVE SERVICES PRODUCER Inhaled Oxygen Concentration - - Weight 52.8 kg (116 lb 6.5 oz) 11/19/2024 11:25 AM CREATIVE SERVICES PRODUCER Height 162.6 cm (5' 4 ) 11/19/2024 11:25 AM CREATIVE SERVICES PRODUCER Body Mass Index 19.98 11/19/2024 11:25 AM CREATIVE SERVICES PRODUCER Plan of Treatment Scheduled Procedures Name Priority [...] 03/06/2023, 021 Medical Devices Implanted Type Area Entry Level Sales Associate Device Identifier Shelf Expiration Date Model / Serial / Lot Angio-Seal Evolution 6fr Vascular Closure [id number] - [id number] - [id number] Implanted:Qty: 1 on 03/09/2022 by Luca Medrano MD at [facility] Collagen Right: Femoral Terumo Medical Pam 09/19/2022 [id number] / [id number] / [id number] Ter[employer] Pam Angio-Seal Vip 6fr Closere Device [id number] - [id number] - [id number] Implanted:Qty: 1 on 07/24/2022 by Luca Medrano MD at [facility] Collagen [employer] Pam 03/20/2023 [id number] / [id number] / [id number] Ter[employer] Pam Angio-Seal Vip 6fr Closere Device 253671 - [id number] - [id number] Implanted:Qty: 1 on 05/21/2024 at [facility] Collagen Right: Common Femoral Artery [employer] Pam 01/09/2025 [id number] / [id number] / [id number] Ter[employer]o [employer] Pam Angio-Seal Vip [place]-Plus 8fr .038in 70cm Hemostatic Latex Free [id number] - [id number] - [id number] Implanted:Qty: 1 on 05/21/2024 by Felipe Gerber MD at [facility] Collagen Right: Common Femoral Artery [employer] Pam 01/06/2025 [id number] / [id number] / [id number] Medtronic Cardiac Rhythm Mgmt 5076-52 Capsurefix Novus 6.2fr 2mm 52cm Bipolar Screw In Implantable Latex Free - [id number] - [id number] Implanted:Qty: 1 on 05/15/[address] Ramos MD PhD at [facility] Lead Medtronic Inc 03/11/2021 5076-52 / [id number] / Medtronic Cardiac Rhythm Mgmt 5076-45 Capsurefix Novus 6.2fr 2mm 45cm Bipolar Screw In Implantable - [id number] - [id number] Implanted:Qty: 1 on 05/15/[address] Ramos MD PhD at [facility] Lead Medtronic Inc 03/30/2021 5076-45 / [id number] / swiftQueue [id number] Linear 7.5fr 6in Insertion Kit Extrusion Die Corrector Introducer Sheath - [id number] Implanted:Qty: 1 on 02/10/2019 by Luca Medrano MD at [facility] Other - see comments swiftQueue 0684-00 -0480-0 / / Description:IABP Medtronic Inc [id number] [place] Curl Cath Beta-Cap Holden 15fr 57cm 2 Cuff Clamp Adapter - S0 - [id number] Implanted:Qty: 1 on 11/21/2021 by Carlos Kamara MD at [facility] Other - see comments N/A: Abdomen Medtronic Inc 11/30/2022 8811-31 3015 / 0 / [id number] Medtronic Cardiac Rhythm Mgmt W1dr01 [place] Wirelessly Pacemaker Cardiac - [id number] - [id number] Implanted:Qty: 1 on 05/15/[address] Ramos MD PhD at [facility] Pacemaker Medtronic Inc [id number] 09/17/2020 [id number] / [id number] / Jamil Lif[employer]iences Valve Aortic Trnscath Brown 3 Ultra Resilia 20mm [id number] - [id number] - [id number] Implanted:Qty: 1 on 05/21/2024 by Felipe Gerber MD at [facility] Prosthetic Valve N/A: Aortic Valve [employer] 02/27/2027 [id number] 20A / [id number] / Medtronic Inc Resolute [place] 4mm 2.1-2.7fr 12mm 140cm Rapid Exchange Radiopaque [id number] - [id number] - [id number] Implanted:Qty: 1 on 03/09/2022 by Luca Medrano MD at [facility] Stent Left: Coronary Medtronic Inc 12/06/2022 [id number] [id number] / [id number] / [id number] Description:LAD Biotronik Inc Stent Coronary De Rx Cocr Ors Msn 4.0x15mm [id number] - [id number] - [id number] Implanted:Qty: 1 on 07/24/2022 by Luca Medrano MD at [facility] Stent Biotronik Inc 09/05/2023 [id number] / [id number] / [id number] Medtronic Formerly [facility] Surgery 4.0 X 15mm [place] Rx Coronary Stent [id number] - [id number] - [id number] Implanted:Qty: 1 on 11/19/2024 by Luca Medrano MD at [facility] Stent N/A: Saphenous Vein Graft Medtronic Card Vas Surgery 05/05/2027 [id number] / [id number] / [id number] Painter Vascular System Closure Repair Femoral Artery Suture Mediated Perclose Prostyle 12701-67 - [id number] - [id number] Implanted:Qty: 1 on 05/21/2024 by Felipe Gerber MD at [facility] Vascular Closure Device Left: Common Femoral Artery Painter Vascular 02/17/2026 74596-6 3 / [id number] / [id number] Ter[employer] Pam Angio-Seal Vip 6fr Closere Device [id number] - [id number] - [id number] Implanted:Qty: 1 on 11/19/2024 by Luca Medrano MD at [facility] Vascular Closure Device N/A: Saphenous Vein Graft [employer] Medical Pam 04/29/2025 [id number] / [id number] / [id number] Sotelo [employer] Pam [id number] Supple Ronna-Guard [place] Processing 4x4cm Patch Cardiovascular - [id number] - [id number] Implanted:Qty: 1 on 02/11/2019 by Christopher Holman MD at [facility] N/A: Chest TopPatch Pam 06/03/2023 [id number] / 3211-04 0010 / [id number] Jam[employer] [id number] Certitude Brown 3 Atrion 18fr Transcatheter Introducer Crimper - [id number] - [id number] Implanted:Qty: 1 on 02/11/2019 by Christopher Holman MD at [facility] N/A: Heart Jamil [employer]iences [id number] / [id number] / Medtronic Inc [id number] [place] Curl Cath Beta-Cap Holden 15fr 57cm 2 Cuff Clamp Adapter - [id number] Implanted:Qty: 1 on 12/27/2021 by Margarita Montoya MD at [facility] N/A: Abdomen Medtronic Inc 10/14/2023 8811-31 3015 / / Procedures Procedure Name Priority Date/Time Associated Diagnosis Comments EGFR Routine 11/19/2024 6:00 PM CREATIVE SERVICES PRODUCER DIFFERENTIAL AUTO Routine 11/19/2024 6:0 0 PM CREATIVE SERVICES PRODUCER CBC WITH AUTO DIFFERENTIAL Routine 11/19/2024 6:00 PM CREATIVE SERVICES PRODUCER BASIC METABOLIC PANEL Routine 11/19/2024 6:00 PM CREATIVE SERVICES PRODUCER POCT ACTIVATED CLOTTING TIME, LOW RANGE Routine 11/19/2024 4:42 PM CREATIVE SERVICES PRODUCER POCT ACTIVATED CLOTTING TIME, LOW RANGE Routine 11/19/2024 3:23 PM CREATIVE SERVICES PRODUCER LEFT HEART CATHETERIZATION WITH CORONARY ANGIOGRAPHY AND WITH AND WITHOUT LEFT VENTRICULOGRAM Routine 11/19/2024 2:50 PM CREATIVE SERVICES PRODUCER Chest pain, unspecified type POCT ACTIVATED CLOTTING TIME, LOW RANGE Routine 11/19/2024 2:49 PM CREATIVE SERVICES PRODUCER POCT ACTIVATED CLOTTING TIME, LOW RANGE Routine 11/19/2024 2:30 PM CREATIVE SERVICES PRODUCER POCT ACTIVATED CLOTTING TIME, LOW RANGE Routine 11/19/2024 2:01 PM CREATIVE SERVICES PRODUCER TYPE AND SCREEN Timed 11/19/2024 2:01 PM CREATIVE SERVICES PRODUCER POCT ACTIVATED CLOTTING TIME, LOW RANGE Routine 11/19/2024 1:53 PM CREATIVE SERVICES PRODUCER POCT ACTIVATED CLOTTING TIME, LOW RANGE Routine 11/19/2024 1:49 PM CREATIVE SERVICES PRODUCER POCT OXYHEMOGLOBIN - DEVICE Routine 11/19/2024 1:27 PM CREATIVE SERVICES PRODUCER POCT OXYHEMOGLOBIN - DEVICE Routine 11/19/2024 1:26 PM CREATIVE SERVICES PRODUCER POCT OXYHEMOGLOBIN - DEVICE Routine 11/19/2024 1:26 PM CREATIVE SERVICES PRODUCER POC BLOOD GAS AND CHEMISTRIES, ARTERIAL Routine 11/19/2024 11:45 AM CREATIVE SERVICES PRODUCER ECG 12-LEAD Routine 11/19/2024 11:16 AM CREATIVE SERVICES PRODUCER SCAN - LABS 11/17/2024 CBC WITH AUTO DIFFERENTIAL Routine 11/16/2024 1:57 PM CREATIVE SERVICES PRODUCER S/P TAVR (transcatheter aortic valve replacement) Chest pain, unspecified type BASIC METABOLIC PANEL Routine 11/16/2024 1:57 PM CREATIVE SERVICES PRODUCER S/P TAVR (transcatheter aortic valve replacement) Chest pain, unspecified type TRANSTHORACIC ECHO (TTE) COMPLETE W DOPPLER/CF W CONTRAST Routine 11/10/2024 4:05 PM CREATIVE SERVICES PRODUCER Acute diastolic heart failure (CMS/HCC) (HCC) HLA ANTIBODY SCREEN BY PRA OR SAB PER SCHEDULE (CLASS I AND CLASS II) Routine 11/05/2024 10:00 AM CREATIVE SERVICES PRODUCER ESRD (end stage renal disease) (CMS/HCC) (HCC) HLA ANTIBODY SCREEN - SAB (CLASS I AND CLASS II) Routine 09/20/2024 10:00 AM CREATIVE SERVICES PRODUCER ESRD (end stage renal disease) (CMS/HCC) (HCC) HLA ANTIBODY SCREEN BY PRA OR SAB PER SCHEDULE (CLASS I AND CLASS II) Routine 09/20/2024 10:00 AM CREATIVE SERVICES PRODUCER ESRD (end stage renal disease) (CMS/HCC) (HCC) HEPATITIS C ANTIBODY Routine 03/06/2023 10:19 AM CDT ESRD (end stage renal disease) (CMS/HCC) (HCC) from Last 3 Months or Most Recently Relevant to Health Maintenance Results * (ABNORMAL) eGFR (11/19/2024 6:00 PM CREATIVE SERVICES PRODUCER) eGFR 3(L) >=60 mL/min/1. 73 m2 Comment: [...] last reviewed 2021. Blood 11/19/2024 6:00 PM CREATIVE SERVICES PRODUCER 11/19/2024 6:10 PM CREATIVE SERVICES PRODUCER us Luca Medrano MD LAB BLOOD ORDERABLES Final R esult NONAGPH [facility] [place] [address] * (ABNORMAL) Differential, auto (11/19/2024 6:00 PM CREATIVE SERVICES PRODUCER) Neutrophil abs 6.5 1.5 - 6.5 K/cumm Imm gran abs 0.0 0.0 - 0.1 K/cumm [facility] Lymphocyte abs 0.5(L) 0.8 - 3.3 K/cumm [facility] Monocyte abs 0.3 0.2 - 0.8 K/cumm [facility] Eosinophil abs 0.1 0.0 - 0.5 K/cumm [facility] Basophil abs 0.0 0.0 - 0.1 K/cumm [facility] Neutrophil pct 87.7 % [facility] Comment: Interpretive Data Percent cell count reference ranges are not reported, since discordance with absolute values may lead to misinterpretation of CBC data. Current Interpretive Data was last revised on 2018. Imm gran pct 0.3 % [facility] Comment: Interpretive Data Percent cell count reference ranges are not reported, since discordance with absolute values may lead to misinterpretation of CBC data. Current Interpretive Data was last revised on 2018. Lymphocyte pct 6.8 % [facility] Comment: Interpretive Data Percent cell count reference ranges are not reported, since discordance with absolute values may lead to misinterpretation of CBC data. Current Interpretive Data was last revised on 2018. Monocyte pct 3.4 % [facility] Comment: Interpretive Data Percent cell count reference ranges are not reported, since discordance with absolute values may lead to misinterpretation of CBC data. Current Interpretive Data was last revised on 2018. Eosinophil pct 1.5 % [facility] Comment: Interpretive Data Percent cell count reference ranges are not reported, since discordance with absolute values may lead to misinterpretation of CBC data. Current Interpretive Data was last revised on 2018. Basophil pct 0.3 % [facility] Comment: Interpretive Data Percent cell count reference ranges are not reported, since discordance with absolute values may lead to misinterpretation of CBC data. Current Interpretive Data was last revised on 2018. Blood 11/19/2024 6:00 PM CREATIVE SERVICES PRODUCER 11/19/2024 6:04 PM CREATIVE SERVICES PRODUCER us Luca Medrano MD LAB BLOOD ORDERABLES Final R esult Performing Organization Address City/[facility]/ZIP Co de Phone Number [facility] [place] [address] * (ABNORMAL) CBC with auto differential (11/19/2024 6:00 PM CREATIVE SERVICES PRODUCER) [facility] WBC 7.4 3.8 - 9.9 K/cumm Hgb 11.6(L) 11.9 - 15.5 g/dL [facility] Hct 36.7 35.6 - 45.5 % [facility] Plt 150 150 - 400 K/cumm [facility] MPV 10.6 9.1 - 12.3 fL [facility] RBC 4.22 3.90 - 5.20 M/cumm [facility] MCV 87.0 81.3 - 96.4 fL [facility] MCH 27.5 27.1 - 33.3 pg [facility] MCHC 31.6(L) 32.3 - 35.7 g/dL [facility] RDW CV 14.6 11.1 - 14.9 % [facility] RDW SD 46.1 35.7 - 48.1 fL [facility] NRBC abs 0.00 0.00 - 0.01 K/cumm [facility] Blood 11/19/2024 6:00 PM CREATIVE SERVICES PRODUCER 11/19/2024 6:04 PM CREATIVE SERVICES PRODUCER us Luca Medrano MD LAB BLOOD ORDERABLES Final R esult [facility] [place] [address] * (ABNORMAL) Basic metabolic panel (11/19/2024 6:00 PM CREATIVE SERVICES PRODUCER) Pathologist [facility] Sodium 130(L) 135 - 145 mmol/L Potassium, pl 4.3 3.3 - 4.9 mmol/L [facility] Chloride 90(L) 97 - 110 mmol/L [facility] CO2 23 22 - 32 mmol/L [facility] Anion gap 17(H) 2 - 15 mmol/L [facility] BUN 57(H) 6 - 25 mg/dL [facility] Creatinine 13.87(H) 0.60 - 1.10 mg/dL [facility] Glucose 150 70 - 199 mg/dL [facility] Comment: Interpretive Data Fasting glucose [...] 2022. Calcium 6.9(L) 8.5 - 10.3 mg/dL [facility] Blood 11/19/2024 6:00 PM CREATIVE SERVICES PRODUCER 11/19/2024 6:04 PM CREATIVE SERVICES PRODUCER Luca Medrano MD LAB BLOOD ORDERABLES Final R esult Performing Organization Address [facility]/ZIP Co de Phone Number [facility] [place] [address] * (ABNORMAL) POCT Activated clotting time, low range (11/19/2024 4:42 PM CREATIVE SERVICES PRODUCER) ACT 171(H) 123 - 168 sec POC Performer [id number] [facility] POC Device Number [id number] [facility] Blood 11/19/2024 4:42 PM CREATIVE SERVICES PRODUCER 11/19/2024 4:42 PM CREATIVE SERVICES PRODUCER Luca Medrano MD LAB POCT ORDERABLES - DEVICE Final Result Performing Organization Address [facility]/ZIP Co de Phone Number [facility] [place] [employer] [place] [address] * (ABNORMAL) POCT Activated clotting time, low range (11/19/2024 3:23 PM CREATIVE SERVICES PRODUCER) ACT 266(H) 123 - 168 sec POC Performer [id number] [facility] POC Device Number [id number] [facility] Blood 11/19/2024 3:23 PM CREATIVE SERVICES PRODUCER 11/19/2024 3:23 PM CREATIVE SERVICES PRODUCER us Luca Medrano MD LAB POCT ORDERABLES - DEVICE Final Result [facility] [place] [address] * LEFT HEART CATHETERIZATION WITH CORONARY ANGIOGRAPHY AND WITH AND WITHOUT LEFT VENTRICULOGRAM (11/19/2024 2:50 PM CREATIVE SERVICES PRODUCER) Anatomical Region Laterality Modality X-Ray Angiograph y Impressions 11/19/2024 4:18 PM CREATIVE SERVICES PRODUCER Very severe stenosis of the vein graft [...] attempt intervention again. I would suggest a Wasta 1 0 guiding catheter and consideration for shockwave versus atherectomy. I was present during the entire procedure and personally dictated or confirmed the above report. Luca Medrano MD Narrative 11/19/2024 4:18 PM CREATIVE SERVICES PRODUCER Procedure: CORONARY ANGIOGRAM / RIGHT HEART CATHETERIZATION/percutaneous coronary intervention Patient: Estuardo Copeland is a 54 y.o. female : 1970 MR number: [id number] Date of Service: 11/19/2024 Clinical Writer: Luca Medrano MD Fellow: Josesito Pabon MD [...] The patient was brought to the labor and delivery registered nurse and placed on the table Bilateral groins [...] coronary artery angiogram performed using a 6 Prydeinig JR4 catheter Right heart catheterization preformed with TD [place] Percutaneous coronary intervention performed on the Proximal saphenous vein graft to the LAD. This was an ACC/AHA Type C. Initial Lesion Length 12mm and final lesion Length 15mm. Initial KAROLINA Flow 3 with visible thrombus present Final KAROLINA Flow 3. Equipment used: 6 3DRC, Tuicool IVUS Catheter, scion blue wire, 0.9 mm laser atherectomy catheter, 2 5 x 15 NC emerge balloon, a 3 0 x 12 mm AngioSculpt balloon, 4 0 by 15 NC emerge balloon, 4 0 x 15 resolute drug-eluting stent, 4 5 x 12 mm NC emerge balloon Attempted intervention on the ostial left main equipment used was a 6 Prydeinig JL 3.5 guiding catheter, she on black [...] than 300. We took up a 6 Prydeinig 3D RC that sat reasonably well in [...] or perforation. We then took our 6 Prydeinig JL 3.5 guiding catheter attempted to intubate [...] right femoral artery and placed a 6 Prydeinig Angio-Seal. Manual compression was performed on the venous sheath. COMPLICATIONS: None DIAGNOSTIC us Luca Medrano MD CV CARDIAC CATH PROCEDURES F inal Result * (ABNORMAL) POCT Activated clotting time, low range (11/19/2024 2:49 PM CREATIVE SERVICES PRODUCER) Novalux ACT 260(H) 123 - 168 sec POC Performer [id number] [facility] POC Device [id number] [facility] Blood 11/19/2024 2:49 PM CREATIVE SERVICES PRODUCER 11/19/2024 2:49 PM CREATIVE SERVICES PRODUCER us Luca Medrano MD LAB POCT ORDERABLES - DEVICE Final Result [facility] Department [place] [address] * (ABNORMAL) POCT Activated clotting time, low range (11/19/2024 2:30 PM CREATIVE SERVICES PRODUCER) ACT 385(H) 123 - 168 sec POC Performer [id number] [facility] POC Device Number [id number] [facility] Blood 11/19/2024 2:30 PM CREATIVE SERVICES PRODUCER 11/19/2024 2:30 PM CREATIVE SERVICES PRODUCER Luca Medrano MD LAB POCT ORDERABLES - DEVICE Final Result Performing Organization Address [facility] de Phone Number [facility] [place] [address] * (ABNORMAL) POCT Activated clotting time, low range (11/19/2024 2:01 PM CREATIVE SERVICES PRODUCER) ACT >400(H) 123 - 168 sec POC Performer [id number] [facility] POC Device Number [id number] [facility] Blood 11/19/2024 2:01 PM CREATIVE SERVICES PRODUCER 11/19/2024 2:01 PM CREATIVE SERVICES PRODUCER Luca Medrano MD LAB POCT ORDERABLES - DEVICE Final Result Performing Organization Address [facility] de Phone Number [facility] [place] [address] * Type and screen (11/19/2024 2:01 PM CREATIVE SERVICES PRODUCER) Pathologist [facility] ABO Rh B Positive Jorge A, indirect Negative [facility] Blood 11/19/2024 2:01 PM CREATIVE SERVICES PRODUCER 11/19/2024 2:14 PM CREATIVE SERVICES PRODUCER Narrative [facility] - 11/19/2024 3:08 PM CREATIVE SERVICES PRODUCER Has the patient had Daratumumab or Isatuximab in the past 6 months?->Unknown Luca Medrano MD LAB BLOOD BANK TEST ORDERABL ES Final Result Performing Organization Address [facility] Co de Phone Number [facility] [place] [address] * (ABNORMAL) POCT Activated clotting time, low range (11/19/2024 1:53 PM CREATIVE SERVICES PRODUCER) Pathologist [facility] ACT >400(H) 123 - 168 sec POC Performer [id number] [facility] POC Device Number [id number] [facility] Blood 11/19/2024 1:53 PM CREATIVE SERVICES PRODUCER 11/19/2024 1:53 PM CREATIVE SERVICES PRODUCER us Luca Medrano MD LAB POCT ORDERABLES - DEVICE Final Result Performing Organization Address [facility] de Phone Number [facility] [place] [address] * (ABNORMAL) POCT Activated clotting time, low range (11/19/2024 1:49 PM CREATIVE SERVICES PRODUCER) [facility] ACT 78(L) 123 - 168 sec POC Performer [id number] [facility] POC Device Number [id number] [facility] Blood 11/19/2024 1:49 PM CREATIVE SERVICES PRODUCER 11/19/2024 1:49 PM CREATIVE SERVICES PRODUCER Luca Medrano MD LAB POCT ORDERABLES - DEVICE Final Result Performing Organization Address [facility] de Phone Number [facility] [place] [address] * (ABNORMAL) POCT oxyhemoglobin (11/19/2024 1:27 PM CREATIVE SERVICES PRODUCER) [facility] SKIDDER Oxyhemoglobin 91.6 >=65.0 % SK[facility]DER Hemoglobin 11.2(L) 11.9 - 15.5 g/dL [facility] SK[facility]DER O2 content 14.3(L) 15.0 - 22.0 Vol % [facility] Anatomic Site aPOC Aorta [facility] Blood 11/19/2024 1:27 PM CREATIVE SERVICES PRODUCER 11/19/2024 1:27 PM CREATIVE SERVICES PRODUCER Luca Medrano MD LAB POCT ORDERABLES - DEVICE Final Result Performing Organization Address [facility] de Phone Number [facility] [place] [address] * (ABNORMAL) POCT oxyhemoglobin (11/19/2024 1:26 PM CREATIVE SERVICES PRODUCER) [facility] SKIDDER Oxyhemoglobin 56.2(L) >=65.0 % [facility] Hemoglobin 11.0(L) 11.9 - 15.5 g/dL [facility] SKIDDER O2 content 8.6(L) 15.0 - 22.0 Vol % [facility] Anatomic Site aPOC Pulm Artery [facility] Blood 11/19/2024 1:26 PM CREATIVE SERVICES PRODUCER 11/19/2024 1:26 PM CREATIVE SERVICES PRODUCER us Luca Medrano MD LAB POCT ORDERABLES - DEVICE Final Result Performing Organization Address [facility]/[place] [address] * (ABNORMAL) POCT oxyhemoglobin (11/19/2024 1:26 PM CREATIVE SERVICES PRODUCER) [facility] SKIDDER Oxyhemoglobin 56.6(L) >=65.0 % [facility] Hemoglobin 10.9(L) 11.9 - 15.5 g/dL [facility] SKIDDER O2 content 8.6(L) 15.0 - 22.0 Vol % [facility] Anatomic Site aPOC Pulm Artery [facility] Blood 11/19/2024 1:26 PM CREATIVE SERVICES PRODUCER 11/19/2024 1:26 PM CREATIVE SERVICES PRODUCER us Luca Medrano MD LAB POCT ORDERABLES - [place] [address] * POC Blood Gas and Chemistries, Arterial - (11/19/2024 11:45 AM CREATIVE SERVICES PRODUCER) [facility] K POC 3.7 3.3 - 4.9 mmol/L Comment: Interpretive Data Not all point of care methods assess for hemolysis. Confirm with instrument and retest K+ if not consistent with clinical signs and symptoms. Current Interpretive Data was last revised on 2024. Blood 11/19/2024 11:4 5 AM CREATIVE SERVICES PRODUCER 11/19/2024 11:45 AM CREATIVE SERVICES PRODUCER Result [facility] Luca Medrano MD LAB POCT ORDERABLES - DEVICE Final Result Performing Organization Address [facility] de Phone Number [facility] Department [place] [address] * ECG 12 lead (11/19/2024 11:16 AM CREATIVE SERVICES PRODUCER) Ventricular Rate EKG/Min 90 BPM [facility] QRS-Interval (MSEC) 84 ms [facility] QT-Interval (MSEC) 404 ms [facility] QTc 494 ms [facility] R Cosby 6 degrees [facility] T Cosby 144 degrees [facility] Diagnosis Atrial fibrillation Electronic atrial pacemaker Minimal voltage criteria for LVH, may be normal variant ( Oliverio product ) Septal infarct , age undetermined T wave abnormality, consider lateral ischemia Abnormal ECG Confirmed by HARJINDER HANDY M.D ([id number]) on 11/19/2024 3:59:31 PM [facility] 11/19/2024 11:1 6 AM CREATIVE SERVICES PRODUCER 11/19/2024 3:59 PM CREATIVE SERVICES PRODUCER Result [facility] Luca Medrano MD ECG ORDERABLES Final Result Performing Organization Address [facility] de Phone Number [facility] * SCAN - LABS (11/17/2024) Provider Scanning Final Result * CBC with auto differential (11/16/2024 1:57 PM CREATIVE SERVICES PRODUCER) WBC 7.2 3.4 - 10.8 x10E3/uL [facility] [...] [facility] - 01 Blood 11/16/2024 1:57 PM CREATIVE SERVICES PRODUCER 11/16/2024 Narrative [facility] - 11/17/2024 8:14 AM CREATIVE SERVICES PRODUCER Performed at: - [facility] [address] [id number] Iron Piler: Marco Anotnio Paiz PhD, Phone: [phone] us Luca Medrano MD LAB BLOOD ORDERABLES Final R esult [facility] * (ABNORMAL) Basic metabolic panel (11/16/2024 1:57 PM CREATIVE SERVICES PRODUCER) [facility] Glucose 88 70 - 99 [...] [facility] - 01 Blood 11/16/2024 1:57 PM CREATIVE SERVICES PRODUCER 11/16/2024 Narrative [facility] - 11/17/2024 12:09 PM CREATIVE SERVICES PRODUCER Performed at: [address] [place] [id number] Iron Piler: Marco Antonio Paiz PhD, Phone: [phone] us Luca Medrano MD LAB BLOOD ORDERABLES Final R esult [facility] - * TRANSTHORACIC ECHO (TTE) COMPLETE W DOPPLER/CF W CONTRAST (11/10/2024 4:05 PM CREATIVE SERVICES PRODUCER) LV EF % CONS SCIMAGE Anatomical Region Laterality Modality Ultrasound 11/10/2024 2:55 PM CREATIVE SERVICES PRODUCER Narrative 11/11/2024 9:34 AM CREATIVE SERVICES PRODUCER [facility] Cardiac Diagnostic Lab [address], [address] [place] [address] Transthoracic Echocardiographic Report Patient Name: ESTUARDO COPELAND M : 1970 (54y ) Gender: F Study Date: 11/10/2024 02:55:48 PM Ht(Inch): 64 Wt(Lb): 115.08 BSA: 1.54 Founder Chairman And Chief Creative Officer: GERA Wells Location: [facility] Order Provider: LUCA MEDRANO Heart Rate: 76 BMI: 19.75 BP: 94/60 Quality: Technically difficult study due to limited acoustic windows. Ref Provider: LUCA MEDRANO PROCEDURES: Echocardiographic Report: ([id number], [id number], [id number]) Transthoracic complete echo with strain imaging and contrast, 2D, spectral and tissue Doppler, color flow Doppler, M- mode. Additional Procedures: ([id number]) 3D echocardiographic imaging from [employer]. Contrast: [...] [ 46.00 - 106.00 ] AI Decel Weber 1.58 m/s2 ESV Mod 2C 14.03 ml [...] By: Silver Levin MD 11/11/2024 9:32:57 AM CREATIVE SERVICES PRODUCER Electronically Signed By: Silver Levin MD 11/11/2024 9:32:57 AM CREATIVE SERVICES PRODUCER Procedure Note Silver Levin MD - 11/11/2024 [facility] Cardiac Diagnostic Lab [address] , [address] [place] [address] Transthoracic Echocardiographic Report Patient Name: ESTUARDO COPELAND M : 1970 (54y ) Gender: F Study Date: 11/10/2024 02:55:48 PM Ht(Inch): 64 Wt(Lb): 115.08 BSA: 1.54 Founder Chairman And Chief Creative Officer: GERA Wells Location: [facility] Order Provider:LUCA MEDRANO Heart Rate: 76 BMI: 19.75 BP: 94/60 Quality: Technically difficult studydue to limited acoustic windows. Ref Provider: LUCA MEDRANO PROCEDURES: Echocardiographic Report: ([id number], [id number], [id number]) Transthoracic completeecho with strain imaging and contrast, 2D, spectral and tissue Doppler, color flow Doppler,M- mode. Additional Procedures: ([id number]) 3D echocardiographic imaging from [employer]. Contrast: 0.4 ml Optison Administered, (2.6 ml [...] EDV Mod 4C 60.63 ml AI Decel [id number] sec EDV Mod BP 56.21 ml [ 46.00 - 106.00 ] AI Decel Slope1.58 m/s2 ESV Mod 2C 14.03 ml AI YFP345.67 msec ESV Mod 4C 21.21 ml MV [...] cm LA Length 4C 5.48 cm MV VTO088.85 msec [ 20.00 - 100.00 ] LA Volume 2C 34.1 ml MVA PHT2.18 cm2 LA Volume 4C 31.3 ml MV Decel Oiry094.53 msec [ 104.00 - 258.00 ] LA [...] cm [ 2.70 - 3.70 ] MR YME418.8 cm Ao Root Index 1.32 cm/m2 MR [...] By: Silver Levin MD 11/11/2024 9:32:57 AM CREATIVE SERVICES PRODUCER Electronically Signed By: Silver Levin MD 11/11/2024 9:32:57 AM CREATIVE SERVICES PRODUCER Luca Medrano MD CV ECHO PROCEDURES Final Res ult * HLA Antibody Screen by PRA or SAB per Schedule (Class I and Class II) (11/05/2024 10:00 AM CREATIVE SERVICES PRODUCER) Blood 11/05/2024 10:0 0 AM CREATIVE SERVICES PRODUCER Narrative [facility] - CREATIVE SERVICES PRODUCER Sample received in lab and stored. No testing performed at this time. Salina Hector MD LAB BLOOD ORDERABLES Final Resul t Performing Organization Address [facility] Co de Phone Number [facility] * HLA Antibody Screen by PRA or SAB per Schedule (Class I and Class II) (09/20/2024 10:00 AM CREATIVE SERVICES PRODUCER) Blood 09/20/2024 10:0 0 AM CREATIVE SERVICES PRODUCER Narrative [facility] - CREATIVE SERVICES PRODUCER Sample received in lab. Single Antigen Antibody Screen ordered. Salina Hector MD LAB BLOOD ORDERABLES Final Resul t Performing Organization Address [facility] Co de Phone Number [facility] * HLA Antibody Screen - SAB (Class I and Class II) (09/20/2024 10:00 AM CREATIVE SERVICES PRODUCER) Class I Treatment EDTA [facility] Class I [...] DPB1*01:01, DPB1*03:01 [facility] 09/20/2024 10:0 0 AM CREATIVE SERVICES PRODUCER 09/24/2024 12:48 PM CREATIVE SERVICES PRODUCER Narrative [facility] - 09/24/2024 12:48 PM CREATIVE SERVICES PRODUCER Single-antigen HLA antibody screen is performed on serum samples using a method developed and validated by the [facility] HLA laboratory based on an FDA-approved IVD kit (Risecreen Single-Antigen, [employer], [place], [place]). All patient serum samples are pretreated with EDTA before the screen to prevent complement interference. Additional serum treatments, such as adsorption and DTT treatment, may be performed as indicated. Interpretive comments: Low risk: MFI [id number]. Moderate risk: MFI [id number]. Increased risk: MFI >/= 5000. The presence [...] antigens to avoid. Testing performed at the [facility], [facility] [address], [address] floor, [place], [address]. [facility] # [id number]. Rosa Millan, Ph.D., Guest Relations Officer, HLA Laboratory Wilmer Prescott M.D., Ph.D., Job Trainer, [facility] Laboratory Alma Payton, Ph.D., CLIA Job Trainer, [facility] Current methodology and interpretive comments last revised on 11/15/2022. us Salina Hector MD LAB BLOOD ORDERABLES Final Resul t Performing Organization Address [facility]/ZIP Co de Phone Number [facility] * Hepatitis C antibody (03/06/2023 10:19 AM CDT) Hep C Ab Nonreactive Nonreactive [facility] Comment:Antibodies to HCV no t detected. Does NOT exclude the possibility of recent exposure to HCV. Current interpretive data was last revised on 22 Blood 03/06/2023 10:1 9 AM CDT 03/06/2023 10:38 AM CDT Maria Fernanda Bryant MD LAB MICROBIOLOGY - GENERAL ORDERABLES Final Result Performing Organization Address [facility] Co de Phone Number [facility] [place] [address] from Last 3 Months or Most Recently Relevant to Health Maintenance Insurance [facility] CHOICE PLUS MEDICARE [facility] CHOICE PLUS [facility] CHOICE PLUS MEDICARE MEDICARE [facility] CHOICE PLUS MEDICARE [employer] [facility] Advance Directives For more information, please contact: [phone] * Full Code (Latest Code Status on [...] 7:30 PM 07/25/2022 6:47 PM Care Teams Taxation Inspector Relationship Specialty Start Date End Date Pal Downey DO PCP - General Internal Medicine 01/25/21 Quinton Rowan MD Referring Physician Cardiology 01/09/19 Tami Flores, TONO [address] [address] Registered Nurse Programmer Analyst 01/25/21 Cricket Escalante MD [address] [address] Referring Physician Nephrology 03/24/21 Gael Sprague MD PhD [address] [address] Fellow Endocrinology Diabetes & Metabolism 03/24/21 Brad Turner MD [address] [address] Consulting Physician Obstetrics and Gynecology 03/24/21 Margarita Montoya MD [address] [address] Consulting Physician Trauma Surgery 12/27/21 Luca Medrano MD [address] [address] Consulting Physician Cardiology 08/03/22 Pb Galloway MD [address] [id number] [place] [address] Cardiothoracic Surgery 05/25/24 Felipe Gerber MD [address] [id number] [place] [address] Consulting Physician Cardiology 05/25/24
--- OUTSIDE RECORDS SUMMARY | 2024-11-27 10:59 | XMS_ITS ---
Author Organization [facility] Address [address] [place] [address] Care Team Providers Care House Worker Name Role Phone Quinton Rowan MD Unavailable [phone] Pal Downey DO Primary Care Provider [phone] Tami Flores RN Unavailable Cricket Escalante MD Unavailable [phone] Gael Sprague MD PhD Unavailable Brad Turner MD Unavailable [phone] Margarita Montoya MD Unavailable [phone] Luca Medrano MD Unavailable Pb Galloway MD Unavailable Felipe Gerber MD Unavailable [phone] Dialysis Access Sites Type Status Location Placement Date Removal Da te Peritoneal Dialysis Catheter Active Right Abdomen (side) - Upper, Medial 12/27/2021 Procedures Procedure Name Priority Date/Time Associated Diagnosis Comments EGFR Routine 11/19/2024 6:00 PM AIRVEYOR OPERATOR DIFFERENTIAL AUTO Routine 11/19/2024 6:0 0 PM AIRVEYOR OPERATOR CBC WITH AUTO DIFFERENTIAL Routine 11/19/2024 6:00 PM AIRVEYOR OPERATOR BASIC METABOLIC PANEL Routine 11/19/2024 6:00 PM AIRVEYOR OPERATOR POCT ACTIVATED CLOTTING TIME, LOW RANGE Routine 11/19/2024 4:42 PM AIRVEYOR OPERATOR POCT ACTIVATED CLOTTING TIME, LOW RANGE Routine 11/19/2024 3:23 PM AIRVEYOR OPERATOR LEFT HEART CATHETERIZATION WITH CORONARY ANGIOGRAPHY AND WITH AND WITHOUT LEFT VENTRICULOGRAM Routine 11/19/2024 2:50 PM AIRVEYOR OPERATOR Chest pain, unspecified type POCT ACTIVATED CLOTTING TIME, LOW RANGE Routine 11/19/2024 2:49 PM AIRVEYOR OPERATOR POCT ACTIVATED CLOTTING TIME, LOW RANGE Routine 11/19/2024 2:30 PM AIRVEYOR OPERATOR POCT ACTIVATED CLOTTING TIME, LOW RANGE Routine 11/19/2024 2:01 PM AIRVEYOR OPERATOR TYPE AND SCREEN Timed 11/19/2024 2:01 PM AIRVEYOR OPERATOR POCT ACTIVATED CLOTTING TIME, LOW RANGE Routine 11/19/2024 1:53 PM AIRVEYOR OPERATOR POCT ACTIVATED CLOTTING TIME, LOW RANGE Routine 11/19/2024 1:49 PM AIRVEYOR OPERATOR POCT OXYHEMOGLOBIN - DEVICE Routine 11/19/2024 1:27 PM AIRVEYOR OPERATOR POCT OXYHEMOGLOBIN - DEVICE Routine 11/19/2024 1:26 PM AIRVEYOR OPERATOR POCT OXYHEMOGLOBIN - DEVICE Routine 11/19/2024 1:26 PM AIRVEYOR OPERATOR POC BLOOD GAS AND CHEMISTRIES, ARTERIAL Routine 11/19/2024 11:45 AM AIRVEYOR OPERATOR ECG 12-LEAD Routine 11/19/2024 11:16 AM AIRVEYOR OPERATOR SCAN - LABS 11/17/2024 CBC WITH AUTO DIFFERENTIAL Routine 11/16/2024 1:57 PM AIRVEYOR OPERATOR S/P TAVR (transcatheter aortic valve replacement) Chest pain, unspecified type BASIC METABOLIC PANEL Routine 11/16/2024 1:57 PM AIRVEYOR OPERATOR S/P TAVR (transcatheter aortic valve replacement) Chest pain, unspecified type TRANSTHORACIC ECHO (TTE) COMPLETE W DOPPLER/CF W CONTRAST Routine 11/10/2024 4:05 PM AIRVEYOR OPERATOR Acute diastolic heart failure (CMS/HCC) (HCC) HLA ANTIBODY SCREEN BY PRA OR SAB PER SCHEDULE (CLASS I AND CLASS II) Routine 11/05/2024 10:00 AM AIRVEYOR OPERATOR ESRD (end stage renal disease) (CMS/HCC) (HCC) HLA ANTIBODY SCREEN - SAB (CLASS I AND CLASS II) Routine 09/20/2024 10:00 AM AIRVEYOR OPERATOR ESRD (end stage renal disease) (CMS/HCC) (HCC) HLA ANTIBODY SCREEN BY PRA OR SAB PER SCHEDULE (CLASS I AND CLASS II) Routine 09/20/2024 10:00 AM AIRVEYOR OPERATOR ESRD (end stage renal disease) (CMS/HCC) (HCC) [...] ESRD (end stage renal disease) ([facility]) 023 Assessment & Plan (05/21/2024 2:22 PM CDT): On peritoneal dialysis-management per renal team Chronic heart failure ([facility]) 08/02/2022 Assessment & Plan (05/24/2024 [...] weights End stage renal disease ([facility]) 08/02/2022 Assessment & Plan (08/03/2022 9:30 AM CDT): -Hx of PCKD -Kidney transplant workup on hold until cardiac issues resolved -Started PD early 2021 -continue phoslo -renal consulted for PD assistance Shoulder pain 07/21/2022 Pre-transplant evaluation for end stage renal di sease 02/01/2022 Overview (02/01/2022): Added automatically from request for surgery [id number] Disorder of peritoneal dialysis catheter 022 Overview (12/22/2021): Added automatically from request for surgery [id number] Chronic kidney disease, stage V ([facility]) 2021 Overview (08/21/2023): Added automatically from request for surgery [id number] Sick sinus syndrome ([facility]) 11/02/2020 Diastolic heart failure 10/27/2019 [...] (non-ST elevated myocardial infarction) ( [facility]) 02/07/2019 Assessment & Plan (05/12/2019 [...] Assessment & Plan (02/25/2019 11:43 AM CDT): [facility] with 95% LAD lesion, had some [...] Assessment & Plan (02/24/2019 9:29 AM CDT): [facility] with 95% LAD lesion, had some [...] Assessment & Plan (02/20/2019 5:17 AM CDT): [facility] with 95% LAD lesion, had some RV dysfunction during AV repair and found to have RCA occlusion following LAD bypass - s/p IABP placement - CABG to LAD and LCA Assessment & Plan (02/19/2019 2:08 AM CDT): [facility] with 95% LAD lesion, had some RV dysfunction during AV repair and found to have RCA occlusion following LAD bypass - s/p IABP placement - CABG to LAD and LCA Assessment & Plan (02/17/2019 7:38 PM CDT): [facility] with 95% LAD lesion, had some RV dysfunction during AV repair and found to have RCA occlusion following LAD bypass - s/p IABP placement - CABG to LAD and LCA - on Epi and Milrinone, wean epi as above Assessment & Plan (02/16/2019 11:38 PM CDT): [facility] with 95% LAD lesion, had some RV dysfunction during AV repair and found to have RCA occlusion following LAD bypass - s/p IABP placement - CABG to LAD and LCA - on Epi and Milrinone of inotropy Assessment & Plan (02/11/2019 6:16 PM CDT): [facility] with 95% LAD lesion, had some [...] to 4.35 - valve team consulted, 02/09 [facility] with severe 1 vessel disease of [...] (02/09/2019): Added automatically from request for surgery [id number] Assessment & Plan (05/17/2019 9:19 AM CDT): [...] (02/10/2019): Added automatically from request for surgery [id number] Assessment & Plan (05/24/2024 11:21 AM CDT): [...] with left shoulder pain similar to previous [place] -EKG changes per OSH --Slight elevation in [...] currently stable Daily BMPs, while inpatient Home hearing aid repair technician is Dr. Escalante Continue lasix 40 [...] kidney disease, baseline Cr 2.4-2.6. F/b OSH hearing aid repair technician. Apparently discussions for potential need for renal txp being discussed. - Cr at baseline on adm - avoid nephrotoxins, renally dose meds - continue calcitriol 0.5 mcg/day - Cr 2.75, received pre-cath hydration, stable 2.7 Headache 05/02/2016 Moderate COPD (chronic obstr uctive pulmonary disease) ([facility]) 11/02/2015 Assessment & Plan (08/02/2022 [...] AM CDT): Hitesh TAVR 05/21 Followed by [facility], Dr. Medrano. CT [...] [facility] for [facility] Assessment & Plan (05/17/2019 [...] AV. Referred to valve team by primary catalogue librarian Dr. Rowan. Seen 02/02 by valve team [...] on file Legal Sex Female 4:06 AM AIRVEYOR OPERATOR Gender Identity Female 01/16/2024 11:18 AM CDT Sexual Orientation Straight 01/16/2024 11 :18 AM CDT Last Filed Vital Signs Vital Sign Reading Time Taken Comments Blood Pressure 130/75 11/19/2024 7:05 PM AIRVEYOR OPERATOR Pulse 71 11/19/2024 7:05 PM AIRVEYOR OPERATOR Temperature 36.6 C (97.9 F) 11/19/2024 11:25 AM AIRVEYOR OPERATOR Respiratory Rate 21 11/19/2024 7:05 PM AIRVEYOR OPERATOR Oxygen Saturation 94% 11/19/2024 7:05 PM AIRVEYOR OPERATOR Inhaled Oxygen Concentration - - Weight 52.8 kg (116 lb 6.5 oz) 11/19/2024 11:25 AM AIRVEYOR OPERATOR Height 162.6 cm (5' 4 ) 11/19/2024 11:25 AM AIRVEYOR OPERATOR Body Mass Index 19.98 11/19/2024 11:25 AM AIRVEYOR OPERATOR Results * (ABNORMAL) eGFR (11/19/2024 6:00 PM AIRVEYOR OPERATOR) eGFR 3(L) >=60 mL/min/1. 73 m2 Comment: [...] last reviewed 2021. Blood 11/19/2024 6:00 PM AIRVEYOR OPERATOR 11/19/2024 6:10 PM AIRVEYOR OPERATOR Luca Medrano MD LAB BLOOD ORDERABLES Final R esult [facility] Department [place] [address] * (ABNORMAL) Differential, auto (11/19/2024 6:00 PM AIRVEYOR OPERATOR) Neutrophil abs 6.5 1.5 - 6.5 K/cumm Imm gran abs 0.0 0.0 - 0.1 K/cumm [facility] Lymphocyte abs 0.5(L) 0.8 - 3.3 K/cumm [facility] Monocyte abs 0.3 0.2 - 0.8 K/cumm [facility] Eosinophil abs 0.1 0.0 - 0.5 K/cumm [facility] Basophil abs 0.0 0.0 - 0.1 K/cumm [facility] Neutrophil pct 87.7 % [facility] Comment: Interpretive Data Percent cell count reference ranges are not reported, since discordance with absolute values may lead to misinterpretation of CBC data. Current Interpretive Data was last revised on 2018. Imm gran pct 0.3 % [facility] Comment: Interpretive Data Percent cell count reference ranges are not reported, since discordance with absolute values may lead to misinterpretation of CBC data. Current Interpretive Data was last revised on 2018. Lymphocyte pct 6.8 % [facility] Comment: Interpretive Data Percent cell count reference ranges are not reported, since discordance with absolute values may lead to misinterpretation of CBC data. Current Interpretive Data was last revised on 2018. Monocyte pct 3.4 % [facility] Comment: Interpretive Data Percent cell count reference ranges are not reported, since discordance with absolute values may lead to misinterpretation of CBC data. Current Interpretive Data was last revised on 2018. Eosinophil pct 1.5 % [facility] Comment: Interpretive Data Percent cell count reference ranges are not reported, since discordance with absolute values may lead to misinterpretation of CBC data. Current Interpretive Data was last revised on 2018. Basophil pct 0.3 % [facility] Comment: Interpretive Data Percent cell count reference ranges are not reported, since discordance with absolute values may lead to misinterpretation of CBC data. Current Interpretive Data was last revised on 2018. Blood 11/19/2024 6:00 PM AIRVEYOR OPERATOR 11/19/2024 6:04 PM AIRVEYOR OPERATOR us Luca Medrano MD LAB BLOOD ORDERABLES Final R esult [facility] [place] [address] * (ABNORMAL) CBC with auto differential (11/19/2024 6:00 PM AIRVEYOR OPERATOR) [facility] WBC 7.4 3.8 - 9.9 K/cumm Hgb 11.6(L) 11.9 - 15.5 g/dL [facility] Hct 36.7 35.6 - 45.5 % [facility] Plt 150 150 - 400 K/cumm [facility] MPV 10.6 9.1 - 12.3 fL [facility] RBC 4.22 3.90 - 5.20 M/cumm [facility] MCV 87.0 81.3 - 96.4 fL [facility] MCH 27.5 27.1 - 33.3 pg [facility] MCHC 31.6(L) 32.3 - 35.7 g/dL [facility] RDW CV 14.6 11.1 - 14.9 % [facility] RDW SD 46.1 35.7 - 48.1 fL [facility] NRBC abs 0.00 0.00 - 0.01 K/cumm [facility] Blood 11/19/2024 6:00 PM AIRVEYOR OPERATOR 11/19/2024 6:04 PM AIRVEYOR OPERATOR us Luca Medrano MD LAB BLOOD ORDERABLES Final R esult [facility] [place] [address] * (ABNORMAL) Basic metabolic panel (11/19/2024 6:00 PM AIRVEYOR OPERATOR) [facility] Sodium 130(L) 135 - 145 mmol/L Potassium, pl 4.3 3.3 - 4.9 mmol/L [facility] Chloride 90(L) 97 - 110 mmol/L [facility] CO2 23 22 - 32 mmol/L [facility] Anion gap 17(H) 2 - 15 mmol/L [facility] BUN 57(H) 6 - 25 mg/dL [facility] Creatinine 13.87(H) 0.60 - 1.10 mg/dL [facility] Glucose 150 70 - 199 mg/dL [facility] Comment: Interpretive Data Fasting glucose [...] 2022. Calcium 6.9(L) 8.5 - 10.3 mg/dL [facility] Blood 11/19/2024 6:00 PM AIRVEYOR OPERATOR 11/19/2024 6:04 PM AIRVEYOR OPERATOR us Luca Medrano MD LAB BLOOD ORDERABLES Final R esult Performing Organization Address [facility]/ZIP Co de Phone Number [facility] [place] [address] * (ABNORMAL) POCT Activated clotting time, low range (11/19/2024 4:42 PM AIRVEYOR OPERATOR) ACT 171(H) 123 - 168 sec POC Performer [id number] [facility] POC Device Number [id number] [facility] Blood 11/19/2024 4:42 PM AIRVEYOR OPERATOR 11/19/2024 4:42 PM AIRVEYOR OPERATOR Luca Medrano MD LAB POCT ORDERABLES - DEVICE Final Result [facility] [place] [address] * (ABNORMAL) POCT Activated clotting time, low range (11/19/2024 3:23 PM AIRVEYOR OPERATOR) ACT 266(H) 123 - 168 sec POC Performer [id number] [facility] POC Device Number [id number] [facility] Blood 11/19/2024 3:23 PM AIRVEYOR OPERATOR 11/19/2024 3:23 PM AIRVEYOR OPERATOR us Luca Medrano MD LAB POCT ORDERABLES - DEVICE Final Result [facility] [place] [address] * LEFT HEART CATHETERIZATION WITH CORONARY ANGIOGRAPHY AND WITH AND WITHOUT LEFT VENTRICULOGRAM (11/19/2024 2:50 PM AIRVEYOR OPERATOR) Anatomical Region Laterality Modality X-Ray Angiograph y Impressions 11/19/2024 4:18 PM AIRVEYOR OPERATOR Very severe stenosis of the vein graft [...] attempt intervention again. I would suggest a [place] 1 0 guiding catheter and consideration for shockwave versus atherectomy. I was present during the entire procedure and personally dictated or confirmed the above report. Luca Medrano MD Narrative 11/19/2024 4:18 PM AIRVEYOR OPERATOR Procedure: CORONARY ANGIOGRAM / RIGHT HEART CATHETERIZATION/percutaneous coronary intervention Patient: Estuardo Copeland is a 54 y.o. female : 1970 MR number: [id number] Date of Service: 11/19/2024 Offbearer: Luca Medrano MD Fellow: Josesito Pabon MD [...] The patient was brought to the labor relations or personnel negotiator and placed on the table Bilateral groins [...] coronary artery angiogram performed using a 6 Albanian JR4 catheter Right heart catheterization preformed with VANI Sheridan Percutaneous coronary intervention performed on the Proximal saphenous vein graft to the LAD. This was an ACC/AHA Type C. Initial Lesion Length 12mm and final lesion Length 15mm. Initial [place] Flow 3 with visible thrombus present Final [place] Flow 3. Equipment used: 6 3DRC, [email or web address] IVUS Catheter, scion blue wire, 0.9 mm laser atherectomy catheter, 2 5 x 15 NC emerge balloon, a 3 0 x 12 mm AngioSculpt balloon, 4 0 by 15 NC emerge balloon, 4 0 x 15 resolute drug-eluting stent, 4 5 x 12 mm NC emerge balloon Attempted intervention on the ostial left main equipment used was a 6 Albanian JL 3.5 guiding catheter, she on black [...] than 300. We took up a 6 Albanian 3D RC that sat reasonably well in [...] or perforation. We then took our 6 Albanian JL 3.5 guiding catheter attempted to intubate [...] right femoral artery and placed a 6 Albanian Angio-Seal. Manual compression was performed on the venous sheath. COMPLICATIONS: None DIAGNOSTIC Luca Medrano MD CV CARDIAC CATH PROCEDURES F inal Result * (ABNORMAL) POCT Activated clotting time, low range (11/19/2024 2:49 PM AIRVEYOR OPERATOR) ACT 260(H) 123 - 168 sec POC Performer [id number] [facility] POC Device Number [id number] [facility] Blood 11/19/2024 2:49 PM AIRVEYOR OPERATOR 11/19/2024 2:49 PM AIRVEYOR OPERATOR Luca Medrano MD LAB POCT ORDERABLES - DEVICE Final Result [facility] [place] [address] * (ABNORMAL) POCT Activated clotting time, low range (11/19/2024 2:30 PM AIRVEYOR OPERATOR) ACT 385(H) 123 - 168 sec POC Performer [id number] [facility] POC Device Number [id number] [facility] Blood 11/19/2024 2:30 PM AIRVEYOR OPERATOR 11/19/2024 2:30 PM AIRVEYOR OPERATOR Luca Medrano MD LAB POCT ORDERABLES - DEVICE Final Result Performing Organization Address [facility] de Phone Number [facility] [place] [address] * (ABNORMAL) POCT Activated clotting time, low range (11/19/2024 2:01 PM AIRVEYOR OPERATOR) ACT >400(H) 123 - 168 sec POC Performer [id number] [facility] POC Device Number [id number] [facility] Blood 11/19/2024 2:01 PM AIRVEYOR OPERATOR 11/19/2024 2:01 PM AIRVEYOR OPERATOR Luca Medrano MD LAB POCT ORDERABLES - DEVICE Final Result Performing Organization Address [facility] de Phone Number [facility] [place] [address] * Type and screen (11/19/2024 2:01 PM AIRVEYOR OPERATOR) ABO Rh B Positive Jorge A, indirect Negative [facility] Blood 11/19/2024 2:01 PM AIRVEYOR OPERATOR 11/19/2024 2:14 PM AIRVEYOR OPERATOR Narrative [facility] - 11/19/2024 3:08 PM AIRVEYOR OPERATOR Has the patient had Daratumumab or Isatuximab in the past 6 months?->Unknown Luca Medrano MD LAB BLOOD BANK TEST ORDERABL ES Final Result Performing Organization Address [facility] de Phone Number [facility] [place] [address] * (ABNORMAL) POCT Activated clotting time, low range (11/19/2024 1:53 PM AIRVEYOR OPERATOR) ACT >400(H) 123 - 168 sec POC Performer [id number] [facility] POC Device Number [id number] [facility] Blood 11/19/2024 1:53 PM AIRVEYOR OPERATOR 11/19/2024 1:53 PM AIRVEYOR OPERATOR Luca Medrano MD LAB POCT ORDERABLES - DEVICE Final Result Performing Organization Address [facility] Co de Phone Number [facility] [place] [address] * (ABNORMAL) POCT Activated clotting time, low range (11/19/2024 1:49 PM AIRVEYOR OPERATOR) [facility] ACT 78(L) 123 - 168 sec POC Performer [id number] [facility] POC Device Number [id number] [facility] Blood 11/19/2024 1:49 PM AIRVEYOR OPERATOR 11/19/2024 1:49 PM AIRVEYOR OPERATOR Luca Medrano MD LAB POCT ORDERABLES - DEVICE Final Result Performing Organization Address [facility] de Phone Number [facility] [place] [address] * (ABNORMAL) POCT oxyhemoglobin (11/19/2024 1:27 PM AIRVEYOR OPERATOR) [facility] PRINTING SPECIALIST Oxyhemoglobin 91.6 >=65.0 % PRINTING SPECIALIST Hemoglobin 11.2(L) 11.9 - 15.5 g/dL [facility] PRINTING SPECIALIST O2 content 14.3(L) 15.0 - 22.0 Vol % [facility] Anatomic Site aPOC Aorta [facility] Blood 11/19/2024 1:27 PM AIRVEYOR OPERATOR 11/19/2024 1:27 PM AIRVEYOR OPERATOR Luca Medrano MD LAB POCT ORDERABLES - DEVICE Final Result Performing Organization Address [facility] Co de Phone Number [facility] [place] [address] * (ABNORMAL) POCT oxyhemoglobin (11/19/2024 1:26 PM AIRVEYOR OPERATOR) [facility] PRINTING SPECIALIST Oxyhemoglobin 56.2(L) >=65.0 % PRINTING SPECIALIST Hemoglobin 11.0(L) 11.9 - 15.5 g/dL [facility] PRINTING SPECIALIST O2 content 8.6(L) 15.0 - 22.0 Vol % [facility] Anatomic Site aPOC Pulm Artery [facility] Blood 11/19/2024 1:26 PM AIRVEYOR OPERATOR 11/19/2024 1:26 PM AIRVEYOR OPERATOR Luca Medrano MD LAB POCT ORDERABLES - DEVICE Final Result Performing Organization Address [facility] de Phone Number [facility] [place] [address] * (ABNORMAL) POCT oxyhemoglobin (11/19/2024 1:26 PM AIRVEYOR OPERATOR) [facility] PRINTING SPECIALIST Oxyhemoglobin 56.6(L) >=65.0 % PRINTING SPECIALIST Hemoglobin 10.9(L) 11.9 - 15.5 g/dL [facility] PRINTING SPECIALIST O2 content 8.6(L) 15.0 - 22.0 Vol % [facility] Anatomic Site aPOC Pulm Artery [facility] Blood 11/19/2024 1:26 PM AIRVEYOR OPERATOR 11/19/2024 1:26 PM AIRVEYOR OPERATOR Luca Medrano MD LAB POCT ORDERABLES - DEVICE Final Result Performing Organization Address [facility] de Phone Number [facility] [place] [address] * POC Blood Gas and Chemistries, Arterial - (11/19/2024 11:45 AM AIRVEYOR OPERATOR) K POC 3.7 3.3 - 4.9 mmol/L Comment: Interpretive Data Not all point of care methods assess for hemolysis. Confirm with instrument and retest K+ if not consistent with clinical signs and symptoms. Current Interpretive Data was last revised on 2024. Blood 11/19/2024 11:4 5 AM AIRVEYOR OPERATOR 11/19/2024 11:45 AM AIRVEYOR OPERATOR Luca Medrano MD LAB POCT ORDERABLES - DEVICE Final Result Performing Organization Address City/[facility]/ZIP Co de Phone Number [facility] [place] [address] * ECG 12 lead (11/19/2024 11:16 AM AIRVEYOR OPERATOR) Ventricular Rate EKG/Min 90 BPM [facility] QRS-Interval (MSEC) 84 ms [facility] QT-Interval (MSEC) 404 ms [facility] QTc 494 ms [facility] R [place] 6 degrees [facility] T [place] 144 degrees [facility] Diagnosis Atrial fibrillation Electronic atrial pacemaker Minimal voltage criteria for LVH, may be normal variant ( Oliverio product ) Septal infarct , age undetermined T wave abnormality, consider lateral ischemia Abnormal ECG Confirmed by HARJINDER HANDY M.D ([id number]) on 11/19/2024 3:59:31 PM [facility] 11/19/2024 11:1 6 AM AIRVEYOR OPERATOR 11/19/2024 3:59 PM AIRVEYOR OPERATOR Luca Medrano MD ECG ORDERABLES Final Result Performing Organization Address [facility] Co de Phone Number [facility] * SCAN - LABS (11/17/2024) Provider Scanning Final Result * CBC with auto differential (11/16/2024 1:57 PM AIRVEYOR OPERATOR) WBC 7.2 3.4 - 10.8 x10E3/uL [facility] [...] [facility] - 01 Blood 11/16/2024 1:57 PM AIRVEYOR OPERATOR 11/16/2024 Narrative [facility] - 11/17/2024 8:14 AM AIRVEYOR OPERATOR Performed at: [address] [id number] [employer] Therapist: Marco Antonio Paiz PhD, Phone: [phone] us Luca Medrano MD LAB BLOOD ORDERABLES Final [facility] * (ABNORMAL) Basic metabolic panel (11/16/2024 1:57 PM AIRVEYOR OPERATOR) [facility] Glucose 88 70 - 99 mg/dL [...] [facility] - 01 Blood 11/16/2024 1:57 PM AIRVEYOR OPERATOR 11/16/2024 Narrative [facility] - 11/17/2024 12:09 PM AIRVEYOR OPERATOR Performed at: [address] [id number] [employer] Therapist: Marco Antonio Paiz PhD, Phone: [phone] us Luca Medrano MD LAB BLOOD ORDERABLES Final [facility] * TRANSTHORACIC ECHO (TTE) COMPLETE W DOPPLER/CF W CONTRAST (11/10/2024 4:05 PM AIRVEYOR OPERATOR) LV EF % CONS SCIMAGE Anatomical Region Laterality Modality Ultrasound 11/10/2024 2:55 PM AIRVEYOR OPERATOR Narrative 11/11/2024 9:[address] [facility] [facility] [address] , [address] [place] [address] Transthoracic Echocardiographic Report Patient Name: ESTUARDO COPELAND M : 1970 (54y ) Gender: F Study Date: 11/10/2024 02:55:48 PM Ht(Inch): 64 Wt(Lb): 115.08 BSA: 1.54 Chemistry Lab Instructor: GERA Wells Location: [facility] Order Provider: LUCA MEDRANO Heart Rate: 76 BMI: 19.75 BP: 94/60 Quality: Technically difficult study due to limited acoustic windows. Ref Provider: LUCA MEDRANO PROCEDURES: Echocardiographic Report: ([id number], [id number], [id number]) Transthoracic complete echo with strain imaging and contrast, 2D, spectral and tissue Doppler, color flow Doppler, M- mode. Additional Procedures: ([id number]) 3D echocardiographic imaging from Echo Machine. Contrast: [...] [ 46.00 - 106.00 ] AI Decel Grimes 1.58 m/s2 ESV Mod 2C 14.03 ml [...] By: Silver Levin MD 11/11/2024 9:32:57 AM AIRVEYOR OPERATOR Electronically Signed By: Silver Levin MD 11/11/2024 9:32:57 AM AIRVEYOR OPERATOR Procedure Note Silver Levin MD - 11/11/2024 [facility] Cardiac Diagnostic Lab [address], [address] [place] [address] Transthoracic Echocardiographic Report Patient Name: ESTUARDO COPELAND M : 1970 (54y ) Gender: F Study Date: 11/10/2024 02:55:48 PM Ht(Inch): 64 Wt(Lb): 115.08 BSA: 1.54 Chemistry Lab Instructor: GERA Wells Location: [facility] Order Provider:LUCA MEDRANO Heart Rate: 76 BMI: 19.75 BP: 94/60 Quality: Technically difficult studydue to limited acoustic windows. Ref Provider: LUCA MEDRANO PROCEDURES: Echocardiographic Report: ([id number], [id number], [id number]) Transthoracic completeecho with strain imaging and contrast, 2D, spectral and tissue Doppler, color flow Doppler,M- mode. Additional Procedures: ([id number]) 3D echocardiographic imaging from [employer]. Contrast: 0.4 ml Optison Administered, (2.6 ml [...] EDV Mod 4C 60.63 ml AI Decel Vail0812.11 sec EDV Mod BP 56.21 ml [ 46.00 - 106.00 ] AI Decel Slope1.58 m/s2 ESV Mod 2C 14.03 ml AI HQH623.67 msec ESV Mod 4C 21.21 ml MV [...] cm LA Length 4C 5.48 cm MV YCY811.85 msec [ 20.00 - 100.00 ] LA Volume 2C 34.1 ml MVA PHT2.18 cm2 LA Volume 4C 31.3 ml MV Decel Xber285.53 msec [ 104.00 - 258.00 ] LA [...] cm [ 2.70 - 3.70 ] MR CPI698.8 cm Ao Root Index 1.32 cm/m2 MR [...] By: Silver Levin MD 11/11/2024 9:32:57 AM AIRVEYOR OPERATOR Electronically Signed By: Silver Levin MD 11/11/2024 9:32:57 AM AIRVEYOR OPERATOR Luca Medrano MD CV ECHO PROCEDURES Final Res ult * HLA Antibody Screen by PRA or SAB per Schedule (Class I and Class II) (11/05/2024 10:00 AM AIRVEYOR OPERATOR) Blood 11/05/2024 10:0 0 AM AIRVEYOR OPERATOR Narrative HISTOTRAC - AIRVEYOR OPERATOR Sample received in lab and stored. No testing performed at this time. Salina Hector MD LAB BLOOD ORDERABLES Final Resul t Performing Organization Address [facility] Co de Phone Number HISTOTRAC * HLA Antibody Screen by PRA or SAB per Schedule (Class I and Class II) (09/20/2024 10:00 AM AIRVEYOR OPERATOR) Blood 09/20/2024 10:0 0 AM AIRVEYOR OPERATOR Narrative HISTOTRAC - AIRVEYOR OPERATOR Sample received in lab. Single Antigen Antibody Screen ordered. Salina Hector MD LAB BLOOD ORDERABLES Final Resul t Performing Organization Address [facility] Co de Phone Number HISTOTRAC * HLA Antibody Screen - SAB (Class I and Class II) (09/20/2024 10:00 AM AIRVEYOR OPERATOR) Class I Treatment EDTA HISTOTRAC Class I [...] DPB1*01:01, DPB1*03:01 HISTOTRAC 09/20/2024 10:0 0 AM AIRVEYOR OPERATOR 09/24/2024 12:48 PM AIRVEYOR OPERATOR Narrative HISTOTRAC - 09/24/2024 12:48 PM AIRVEYOR OPERATOR Single-antigen HLA antibody screen is performed on serum samples using a method developed and validated by the [facility] HLA laboratory based on an FDA-approved IVD kit (LABScreen Single-Antigen, [employer], [place], [place]). All patient serum samples are pretreated with EDTA before the screen to prevent complement interference. Additional serum treatments, such as adsorption and DTT treatment, may be performed as indicated. Interpretive comments: Low risk: MFI [id number]. Moderate risk: MFI [id number]. Increased risk: MFI >/= 5000. The presence [...] antigens to avoid. Testing performed at the [facility] Laboratory, [facility] [address], [address] floor, [place], [address]. CLIA # [id number]. Rosa Millan, Ph.D., Scheduling Representative, HLA Laboratory Wilmer Prescott M.D., Ph.D., Crossband Layer, HLA Laboratory Alma Payton, Ph.D., [place] Crossband Layer, [facility] Clinical Laboratories Current methodology and interpretive comments [...] GENERAL ORDERABLES Final Result CAMERON DOMINGUEZ [facility] Department [place] [address] from Last 3 Months or Most Recently Relevant to Health Maintenance
--- OUTSIDE RECORDS SUMMARY | 2024-11-27 10:59 | XMS_ITS | Encounter Summary ---
Author Organization [facility] [employer] [facility] Address [address] [place] [address] Phone Care Team Providers Care Office System Analyst Name Role Phone Quinton Rowan MD Unavailable Pal Downey DO Primary Care Provider [phone] Tami Flores RN Unavailable Cricket Escalante MD Unavailable [phone] Gael Sprague MD PhD Unavailable Brad Turner MD Unavailable [phone] Margarita Montoya MD Unavailable Luca Lott MD Unavailable [phone] Pb Galloway MD Unavailable Felipe Gerber MD Unavailable [phone] Encounter Details Date Type Department Care [...] on file 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 Gender Identity Female 01/16/2024 11:18 AM CDT [...] documented as of this encounter Care Teams Office System Analyst Relationship Specialty Start Date End Date Pal Downey DO PCP - General Internal Medicine 01/25/21 Quinton Rowan MD Referring Physician Cardiology 01/09/19 Tami Flores RN [address] [address] Registered Nurse Editor 01/25/21 Cricket Escalante MD [address] [address] Referring Physician Nephrology 03/24/21 Gael Sprague MD PhD [address] [address] Fellow Endocrinology Diabetes & Metabolism 03/24/21 Brad Turner MD [address] [address] Consulting Physician Obstetrics and Gynecology 03/24/21 Margarita Montoya MD [address] [id number] Consulting Physician Trauma Surgery 12/27/21 Luca Lott MD [address] [address] Consulting Physician Cardiology 08/03/22 Pb Galloway MD [address] [facility] [id number] [place] [address] Cardiothoracic Surgery 05/25/24 Felipe Gerber MD [address] [facility] [id number] [place] [address] Consulting Physician Cardiology 05/25/24 documented as of this encounter
--- OUTSIDE RECORDS SUMMARY | 2024-11-27 10:59 | XMS_ITS | Referral Summary ---
Author Organization [facility] Address [address] [place] [address] Care Team Providers Care Movie Actor Name Role Phone Quinton Rowan MD Unavailable Pal Downey DO Primary Care Provider [phone] Tami Flores RN Unavailable Cricket Escalante MD Unavailable [phone] Gael Sprague MD PhD Unavailable Brad Turner MD Unavailable [phone] Margarita Montoya MD Unavailable Luca Medrano MD Unavailable Pb Galloway MD Unavailable Felipe Gerber MD Unavailable [phone] Encounters Date Type Department Care Team Description 11/19/2024 2:02 PM MECHANICAL ENGINEERING LECTURER - 11/19/2024 3:42 PM MECHANICAL ENGINEERING LECTURER Surgery [facility] [address] [place] [address] Luca Medrano MD LEFT HEART CATHETERIZATION WITH CORONARY ANGIOGRAPHY AND WITH OR WITHOUT LEFT VENTRICULOGRAM 20508 11/19/2024 11:04 AM MECHANICAL ENGINEERING LECTURER - 11/19/2024 7:20 PM MECHANICAL ENGINEERING LECTURER Hospital Encounter [facility] [address] [facility] [place] [address] Luca Medrano MD 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 (HCC) [I25.119] (Primary Dx); Chest pain, unspecified type Discharge Disposition: Discharge to home or self care 11/18/2024 11:45 AM MECHANICAL ENGINEERING LECTURER Office Visit [facility] Cardiology [address] [place] [address] 8th [place] [address] [place] [phone] Lane Ramos MD PhD SSS (sick sinus syndrome) (CMS/HCC) (HCC) (Primary Dx) 11/18/2024 11:15 AM MECHANICAL ENGINEERING LECTURER Ancillary Procedure [address] 8th [place] [address] [place] [id number] SSS (sick sinus syndrome) (CMS/HCC) (HCC) (Primary Dx); Fitting or adjustment of cardiac pacemaker 11/17/2024 Orders Only [facility] CARDIOLOGY Scanning, Provider 11/10/2024 Telephone [facility] Cardiology [address] [place] [address] Medical Office Building 3 [address] [place] [phone] Luca Medrano MD [facility] 11/10/2024 3:00 PM MECHANICAL ENGINEERING LECTURER Ancillary Procedure [facility] [place] [address] [place] [address] [address] [place] [address] Acute diastolic heart failure (CMS/HCC) (HCC) 11/05/2024 10:00 AM MECHANICAL ENGINEERING LECTURER - 11/05/2024 11:59 PM MECHANICAL ENGINEERING LECTURER Hospital Encounter [facility] [address] [place] [address] ESRD (end stage renal disease) (CMS/HCC) (HCC) Discharge Disposition: Discharge to home or self care 11/05/2024 Orders Only [facility] Cardiology [address] [place] [address] 8th [place] [address] [place] [address] Luca Medrano MD 11/04/2024 11:30 AM MECHANICAL ENGINEERING LECTURER Office Visit [facility] Cardiology [address] [place] [address] Building [address] [place] [address] Luca Medrano MD Acute diastolic heart failure (CMS/HCC) (HCC) (Primary Dx); Chronic systolic heart failure (CMS/HCC) (HCC); 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 (HCC) 09/23/2024 Orders Only [facility] Trans[facility] Kidney [address] [facility] [address] Mailstop [phone] [place] [address] Tami Flores RN ESRD (end stage renal disease) (CMS/HCC) (HCC) (Primary Dx) 09/20/2024 10:00 AM MECHANICAL ENGINEERING LECTURER - 09/20/2024 11:59 PM [facility] Hospital Encounter [address] [address] ESRD (end stage renal disease) ([facility]) (HCC) Discharge Disposition: Discharge to home or self care 09/11/2024 Telephone [facility] [address] [facility] [address] Mailstop [phone] [place] [address] Mariann Bobo 09/10/2024 Telephone [facility] [address] [facility] [address] [phone] [place] [address] Mariann Bobo from Last 3 Months Allergies [...] disease 07/08/2023 ESRD (end stage renal disease) ([facility]) 023 Assessment & Plan (05/21/2024 2:22 PM CDT): On peritoneal dialysis-management per renal team Chronic heart failure ([facility]) 08/02/2022 Assessment & Plan (05/24/2024 11:22 AM [...] telemetry, daily weights End stage renal disease ([facility]) 08/02/2022 Assessment & Plan (08/03/2022 9:30 AM CDT): -Hx of PCKD -Kidney transplant workup on hold until cardiac issues resolved -Started PD early 2021 -continue phoslo -renal consulted for PD assistance Shoulder pain 07/21/2022 Pre-transplant evaluation for end stage renal di sease 02/01/2022 Overview (02/01/2022): Added automatically from request for surgery [id number] Disorder of peritoneal dialysis catheter 022 Overview (12/22/2021): Added automatically from request for surgery [id number] Chronic kidney disease, stage V ([facility]) 2021 Overview (08/21/2023): Added automatically from request for surgery [id number] Sick sinus syndrome ([facility]) 11/02/2020 Diastolic heart failure 10/27/2019 [...] TR NSTEMI (non-ST elevated myocardial infarction) ( [facility]) 02/07/2019 Assessment & Plan (05/12/2019 [...] Assessment & Plan (02/25/2019 11:43 AM CDT): [facility] with 95% LAD lesion, had some [...] Assessment & Plan (02/24/2019 9:29 AM CDT): [facility] with 95% LAD lesion, had some [...] Assessment & Plan (02/20/2019 5:17 AM CDT): [facility] with 95% LAD lesion, had some RV dysfunction during AV repair and found to have RCA occlusion following LAD bypass - s/p IABP placement - CABG to LAD and LCA Assessment & Plan (02/19/2019 2:08 AM CDT): [facility] with 95% LAD lesion, had some RV dysfunction during AV repair and found to have RCA occlusion following LAD bypass - s/p IABP placement - CABG to LAD and LCA Assessment & Plan (02/17/2019 7:38 PM CDT): [facility] with 95% LAD lesion, had some RV dysfunction during AV repair and found to have RCA occlusion following LAD bypass - s/p IABP placement - CABG to LAD and LCA - on Epi and Milrinone, wean epi as above Assessment & Plan (02/16/2019 11:38 PM CDT): [facility] with 95% LAD lesion, had some RV dysfunction during AV repair and found to have RCA occlusion following LAD bypass - s/p IABP placement - CABG to LAD and LCA - on Epi and Milrinone of inotropy Assessment & Plan (02/11/2019 6:16 PM CDT): [facility] with 95% LAD lesion, had some [...] to 4.35 - valve team consulted, 02/09 [facility] with severe 1 vessel disease of [...] (02/09/2019): Added automatically from request for surgery [id number] Assessment & Plan (05/17/2019 9:19 AM CDT): [...] (02/10/2019): Added automatically from request for surgery [id number] Assessment & Plan (05/24/2024 11:21 AM CDT): [...] with left shoulder pain similar to previous NC -EKG changes per OSH --Slight elevation in [...] currently stable Daily BMPs, while inpatient Home it sales representative is Dr. Escalante Continue lasix 40 mg [...] kidney disease, baseline Cr 2.4-2.6. F/b OSH it sales representative. Apparently discussions for potential need for renal txp being discussed. - Cr at baseline on adm - avoid nephrotoxins, renally dose meds - continue calcitriol 0.5 mcg/day - Cr 2.75, received pre-cath hydration, stable 2.7 Headache 05/02/2016 Moderate COPD (chronic obstr uctive pulmonary disease) ([facility]) 11/02/2015 Assessment & Plan (08/02/2022 [...] AM CDT): Hitesh TAVR 05/21 Followed by [facility], Dr. Medrano. CT [...] not a candidate for intervention (declined by [facility]) Assessment & Plan (05/17/2019 [...] AV. Referred to valve team by primary production engine repairer Dr. Rowan. Seen 02/02 by valve team [...] around 2.4 Dr Escalante is her home it sales representative Assessment & Plan (02/23/2019 12:20 PM CDT): Pt above POW by 2 kg. Lasix on hold due to elevation in Creatinine Baseline creat is around 2.4 Dr Escalante is her home it sales representative Agitation requiring sedation protocol 02/14/2019 02/23/2019 Acute [...] she had reactions to (?). Per OSH it sales representative's note in Care Everywhere, pt tried metoprolol [...] on file Legal Sex Female 4:06 AM MECHANICAL ENGINEERING LECTURER Gender Identity Female 01/16/2024 11:18 AM CDT Sexual Orientation Straight 01/16/2024 11 :18 AM CDT Last Filed Vital Signs Vital Sign Reading Time Taken Comments Blood Pressure 130/75 11/19/2024 7:05 PM MECHANICAL ENGINEERING LECTURER Pulse 71 11/19/2024 7:05 PM MECHANICAL ENGINEERING LECTURER Temperature 36.6 C (97.9 F) 11/19/2024 11:25 AM MECHANICAL ENGINEERING LECTURER Respiratory Rate 21 11/19/2024 7:05 PM MECHANICAL ENGINEERING LECTURER Oxygen Saturation 94% 11/19/2024 7:05 PM MECHANICAL ENGINEERING LECTURER Inhaled Oxygen Concentration - - Weight 52.8 kg (116 lb 6.5 oz) 11/19/2024 11:25 AM MECHANICAL ENGINEERING LECTURER Height 162.6 cm (5' 4 ) 11/19/2024 11:25 AM MECHANICAL ENGINEERING LECTURER Body Mass Index 19.98 11/19/2024 11:25 AM MECHANICAL ENGINEERING LECTURER Plan of Treatment Scheduled Procedures Name Priority Associated Diagnoses Date/Ti me TRANSPLANT KIDNEY ESRD (end stage renal disease) (CMS/HCC) (HCC) Medical Devices Implanted Type Area Division Controller Device Identifier Shelf Expiration Date Model / Serial / Lot Angio-Seal Evolution 6fr Vascular Closure [id number] - [id number] - [id number] Implanted:Qty: 1 on 03/09/2022 by Luca Medrano MD at [facility] Collagen Right: Femoral [employer] Pam 09/19/2022 [id number] / [id number] / [id number] [employer] Pam Angio-Seal Vip 6fr Closere Device [id number] - [id number] - [id number] Implanted:Qty: 1 on 07/24/2022 by Luca Medrano MD at [facility] Collagen [employer] Pam 03/20/2023 [id number] / [id number] / [id number] [employer] Pam Angio-Seal Vip 6fr Closere Device 438519 - [id number] - [id number] Implanted:Qty: 1 on 05/21/2024 at [facility] Collagen Right: Common Femoral Artery [employer] Pam 01/09/2025 [id number] / [id number] / [id number] [employer] Pam Angio-Seal Vip [place]-Plus 8fr .038in 70cm Hemostatic Latex Free 844828 - [id number] - [id number] Implanted:Qty: 1 on 05/21/2024 by Felipe Gerber MD at [facility] Collagen Right: Common Femoral Artery [employer] Pam 01/06/2025 [id number] / [id number] / [id number] Medtronic Cardiac Rhythm Mgmt 5076-52 Capsurefix Novus 6.2fr 2mm 52cm Bipolar Screw In Implantable Latex Free - [id number] - [id number] Implanted:Qty: 1 on 05/15/2019 [address] Lane Ramos MD PhD at [facility] Lead Medtronic Inc 03/11/2021 5076-52 / [id number] / Medtronic Cardiac Rhythm Mgmt 5076-45 Capsurefix Novus 6.2fr 2mm 45cm Bipolar Screw In Implantable - [id number] - [id number] Implanted:Qty: 1 on 05/15/2019 [address] Lane Ramos MD PhD at [facility] Lead Medtronic Inc 03/30/2021 5076-45 / [id number] / [id number] Linear 7.5fr 6in Insertion Kit Mid Level Provider Introducer Sheath - [id number] Implanted:Qty: 1 on 02/10/2019 by Luca Medrano MD at [facility] Other - see comments Bitnami 0684-00 0480-0 1 / / Description:IABP Medtronic Inc [id number] [place] Curl Cath Beta-Cap Holden 15fr 57cm 2 Cuff Clamp Adapter - S0 - [id number] Implanted:Qty: 1 on 11/21/2021 by Carlos Kamara MD at [facility] Other - see comments N/A: Abdomen Medtronic Inc 11/30/2022 8811-31 3015 / 0 / [id number] Medtronic Cardiac Rhythm Mgmt W1dr01 Tereza Wirelessly Pacemaker Cardiac - [id number] - [id number] Implanted:Qty: 1 on 05/15/2019 [address] Lane Ramos MD PhD at [facility] Pacemaker Medtronic Inc [id number] 09/17/2020 W1DR01 / [id number] / Jamil Lif[employer]iences Valve Aortic Trnscath Brown 3 Ultra Resilia 20mm [id number] - [id number] - [id number] Implanted:Qty: 1 on 05/21/2024 by Felipe Gerber MD at [facility] Prosthetic Valve N/A: Aortic Valve [employer] 02/27/2027 [id number] 20A / [id number] / Medtronic Inc Resolute Clive 4mm 2.1-2.7fr 12mm 140cm Rapid Exchange Radiopaque [id number] - [id number] - [id number] Implanted:Qty: 1 on 03/09/2022 by Luca Medrano MD at [facility] Stent Left: Coronary Medtronic Inc 12/06/2022 [id number] 012UX / [id number] / [id number] Description:LAD Biotronik Inc Stent Coronary De Rx Cocr Ors Msn 4.0x15mm 145780 - [id number] - [id number] Implanted:Qty: 1 on 07/24/2022 by Luca Medrano MD at [facility] Stent [employer] Inc 09/05/2023 727382 / [id number] / [id number] [facility] Surgery 4.0 X 15mm Aguila Tyler Rx Coronary Stent [id number] - [id number] - [id number] Implanted:Qty: 1 on 11/19/2024 by Luca Medrano MD at [facility] Stent N/A: Saphenous Vein Graft [facility] Surgery 05/05/2027 [id number] / [id number] / [id number] Painter Vascular System Closure Repair Femoral Artery Suture Mediated Perclose Prostyle 42860-83 - [id number] - [id number] Implanted:Qty: 1 on 05/21/2024 by Felipe Gerber MD at [facility] Vascular Closure Device Left: Common Femoral Artery Painter Vascular 02/17/2026 29413-5 3 / [id number] / [id number] [employer] Pam Angio-Seal Vip 6fr Closere Device [id number] - [id number] - [id number] Implanted:Qty: 1 on 11/19/2024 by Luca Medrano MD at [facility] Vascular Closure Device N/A: Saphenous Vein Graft [employer] Pam 04/29/2025 548324 / [id number] / [id number] [employer] Pam [id number] Supple Ronna-Guard Amma Processing 4x4cm Patch Cardiovascular - [id number] - [id number] Implanted:Qty: 1 on 02/11/2019 by Christopher Holman MD at [facility] N/A: Chest [employer] Pam 06/03/2023 [id number] / [id number] 04-0010 / [id number] Jamil [employer] [id number] Certitude Brown 3 Atrion 18fr Transcatheter Introducer Crimper - [id number] - [id number] Implanted:Qty: 1 on 02/11/2019 by Christopher Holman MD at [facility] N/A: Heart [employer] [id number] / [id number] / Medtronic Inc [id number] [place] Curl Cath Beta-Cap Holden 15fr 57cm 2 Cuff Clamp Adapter - [id number] Implanted:Qty: 1 on 12/27/2021 by Margarita Montoya MD at [facility] N/A: Abdomen Medtronic Inc 10/14/2023 8811-31 3015 / / Procedures Procedure Name Priority Date/Time Associated Diagnosis Comments EGFR Routine 11/19/2024 6:00 PM MECHANICAL ENGINEERING LECTURER DIFFERENTIAL AUTO Routine 11/19/2024 6:0 0 PM MECHANICAL ENGINEERING LECTURER CBC WITH AUTO DIFFERENTIAL Routine 11/19/2024 6:00 PM MECHANICAL ENGINEERING LECTURER BASIC METABOLIC PANEL Routine 11/19/2024 6:00 PM MECHANICAL ENGINEERING LECTURER POCT ACTIVATED CLOTTING TIME, LOW RANGE Routine 11/19/2024 4:42 PM MECHANICAL ENGINEERING LECTURER POCT ACTIVATED CLOTTING TIME, LOW RANGE Routine 11/19/2024 3:23 PM MECHANICAL ENGINEERING LECTURER LEFT HEART CATHETERIZATION WITH CORONARY ANGIOGRAPHY AND WITH AND WITHOUT LEFT VENTRICULOGRAM Routine 11/19/2024 2:50 PM MECHANICAL ENGINEERING LECTURER Chest pain, unspecified type POCT ACTIVATED CLOTTING TIME, LOW RANGE Routine 11/19/2024 2:49 PM MECHANICAL ENGINEERING LECTURER POCT ACTIVATED CLOTTING TIME, LOW RANGE Routine 11/19/2024 2:30 PM MECHANICAL ENGINEERING LECTURER POCT ACTIVATED CLOTTING TIME, LOW RANGE Routine 11/19/2024 2:01 PM MECHANICAL ENGINEERING LECTURER TYPE AND SCREEN Timed 11/19/2024 2:01 PM MECHANICAL ENGINEERING LECTURER POCT ACTIVATED CLOTTING TIME, LOW RANGE Routine 11/19/2024 1:53 PM MECHANICAL ENGINEERING LECTURER POCT ACTIVATED CLOTTING TIME, LOW RANGE Routine 11/19/2024 1:49 PM MECHANICAL ENGINEERING LECTURER POCT OXYHEMOGLOBIN - DEVICE Routine 11/19/2024 1:27 PM MECHANICAL ENGINEERING LECTURER POCT OXYHEMOGLOBIN - DEVICE Routine 11/19/2024 1:26 PM MECHANICAL ENGINEERING LECTURER POCT OXYHEMOGLOBIN - DEVICE Routine 11/19/2024 1:26 PM MECHANICAL ENGINEERING LECTURER POC BLOOD GAS AND CHEMISTRIES, ARTERIAL Routine 11/19/2024 11:45 AM MECHANICAL ENGINEERING LECTURER ECG 12-LEAD Routine 11/19/2024 11:16 AM MECHANICAL ENGINEERING LECTURER SCAN - LABS 11/17/2024 CBC WITH AUTO DIFFERENTIAL Routine 11/16/2024 1:57 PM MECHANICAL ENGINEERING LECTURER S/P TAVR (transcatheter aortic valve replacement) Chest pain, unspecified type BASIC METABOLIC PANEL Routine 11/16/2024 1:57 PM MECHANICAL ENGINEERING LECTURER S/P TAVR (transcatheter aortic valve replacement) Chest pain, unspecified type TRANSTHORACIC ECHO (TTE) COMPLETE W DOPPLER/CF W CONTRAST Routine 11/10/2024 4:05 PM MECHANICAL ENGINEERING LECTURER Acute diastolic heart failure (CMS/HCC) (HCC) HLA ANTIBODY SCREEN BY PRA OR SAB PER SCHEDULE (CLASS I AND CLASS II) Routine 11/05/2024 10:00 AM MECHANICAL ENGINEERING LECTURER ESRD (end stage renal disease) (CMS/HCC) (HCC) HLA ANTIBODY SCREEN - SAB (CLASS I AND CLASS II) Routine 09/20/2024 10:00 AM MECHANICAL ENGINEERING LECTURER ESRD (end stage renal disease) (CMS/HCC) (HCC) HLA ANTIBODY SCREEN BY PRA OR SAB PER SCHEDULE (CLASS I AND CLASS II) Routine 09/20/2024 10:00 AM MECHANICAL ENGINEERING LECTURER ESRD (end stage renal disease) (CMS/HCC) (HCC) HEPATITIS C ANTIBODY Routine 03/06/2023 10:19 AM CDT ESRD (end stage renal disease) (CMS/HCC) (HCC) from Last 3 Months or Most Recently Relevant to Health Maintenance Results * (ABNORMAL) eGFR (11/19/2024 6:00 PM MECHANICAL ENGINEERING LECTURER) eGFR 3(L) >=60 mL/min/1. 73 m2 Comment: [...] last reviewed 2021. Blood 11/19/2024 6:00 PM MECHANICAL ENGINEERING LECTURER 11/19/2024 6:10 PM MECHANICAL ENGINEERING LECTURER us Luca Medrano MD LAB BLOOD ORDERABLES Final R esult [facility] Department [place] [address] * (ABNORMAL) Differential, auto (11/19/2024 6:00 PM MECHANICAL ENGINEERING LECTURER) Neutrophil abs 6.5 1.5 - 6.5 K/cumm Imm gran abs 0.0 0.0 - 0.1 K/cumm [facility] Lymphocyte abs 0.5(L) 0.8 - 3.3 K/cumm [facility] Monocyte abs 0.3 0.2 - 0.8 K/cumm [facility] Eosinophil abs 0.1 0.0 - 0.5 K/cumm [facility] Basophil abs 0.0 0.0 - 0.1 K/cumm [facility] Neutrophil pct 87.7 % [facility] Comment: Interpretive Data Percent cell count reference ranges are not reported, since discordance with absolute values may lead to misinterpretation of CBC data. Current Interpretive Data was last revised on 2018. Imm gran pct 0.3 % [facility] Comment: Interpretive Data Percent cell count reference ranges are not reported, since discordance with absolute values may lead to misinterpretation of CBC data. Current Interpretive Data was last revised on 2018. Lymphocyte pct 6.8 % [facility] Comment: Interpretive Data Percent cell count reference ranges are not reported, since discordance with absolute values may lead to misinterpretation of CBC data. Current Interpretive Data was last revised on 2018. Monocyte pct 3.4 % [facility] Comment: Interpretive Data Percent cell count reference ranges are not reported, since discordance with absolute values may lead to misinterpretation of CBC data. Current Interpretive Data was last revised on 2018. Eosinophil pct 1.5 % [facility] Comment: Interpretive Data Percent cell count reference ranges are not reported, since discordance with absolute values may lead to misinterpretation of CBC data. Current Interpretive Data was last revised on 2018. Basophil pct 0.3 % [facility] Comment: Interpretive Data Percent cell count reference ranges are not reported, since discordance with absolute values may lead to misinterpretation of CBC data. Current Interpretive Data was last revised on 2018. Blood 11/19/2024 6:00 PM MECHANICAL ENGINEERING LECTURER 11/19/2024 6:04 PM MECHANICAL ENGINEERING LECTURER us Luca Medrano MD LAB BLOOD ORDERABLES Final R esult [facility] Department [place] [address] * (ABNORMAL) CBC with auto differential (11/19/2024 6:00 PM MECHANICAL ENGINEERING LECTURER) WBC 7.4 3.8 - 9.9 K/cumm Hgb 11.6(L) 11.9 - 15.5 g/dL [facility] Hct 36.7 35.6 - 45.5 % [facility] Plt 150 150 - 400 K/cumm [facility] MPV 10.6 9.1 - 12.3 fL [facility] RBC 4.22 3.90 - 5.20 M/cumm [facility] MCV 87.0 81.3 - 96.4 fL [facility] MCH 27.5 27.1 - 33.3 pg [facility] MCHC 31.6(L) 32.3 - 35.7 g/dL [facility] RDW CV 14.6 11.1 - 14.9 % [facility] RDW SD 46.1 35.7 - 48.1 fL [facility] NRBC abs 0.00 0.00 - 0.01 K/cumm [facility] Blood 11/19/2024 6:00 PM MECHANICAL ENGINEERING LECTURER 11/19/2024 6:04 PM MECHANICAL ENGINEERING LECTURER us Luca Medrano MD LAB BLOOD ORDERABLES Final R esult [facility] Department [place] [address] * (ABNORMAL) Basic metabolic panel (11/19/2024 6:00 PM MECHANICAL ENGINEERING LECTURER) [facility] Sodium 130(L) 135 - 145 mmol/L Potassium, pl 4.3 3.3 - 4.9 mmol/L [facility] Chloride 90(L) 97 - 110 mmol/L [facility] CO2 23 22 - 32 mmol/L [facility] Anion gap 17(H) 2 - 15 mmol/L [facility] BUN 57(H) 6 - 25 mg/dL [facility] Creatinine 13.87(H) 0.60 - 1.10 mg/dL [facility] Glucose 150 70 - 199 mg/dL [facility] Comment: Interpretive Data Fasting glucose >/= [...] Calcium 6.9(L) 8.5 - 10.3 mg/dL [facility] Blood 11/19/2024 6:00 PM MECHANICAL ENGINEERING LECTURER 11/19/2024 6:04 PM MECHANICAL ENGINEERING LECTURER Luca Medrano MD LAB BLOOD ORDERABLES Final R esult Performing Organization Address City/[facility] Co de Phone Number [facility] Department [place] [place] [address] * (ABNORMAL) POCT Activated clotting time, low range (11/19/2024 4:42 PM MECHANICAL ENGINEERING LECTURER) ACT 171(H) 123 - 168 sec POC Performer [id number] [facility] POC Device Number [id number] [facility] Blood 11/19/2024 4:42 PM MECHANICAL ENGINEERING LECTURER 11/19/2024 4:42 PM MECHANICAL ENGINEERING LECTURER us Luca Medrano MD LAB POCT ORDERABLES - DEVICE Final Result Performing Organization Address City/[facility]/ZIP Co de Phone Number [facility] Department [place] [place] [address] * (ABNORMAL) POCT Activated clotting time, low range (11/19/2024 3:23 PM MECHANICAL ENGINEERING LECTURER) ACT 266(H) 123 - 168 sec POC Performer [id number] [facility] POC Device Number [id number] [facility] Blood 11/19/2024 3:23 PM MECHANICAL ENGINEERING LECTURER 11/19/2024 3:23 PM MECHANICAL ENGINEERING LECTURER us Luca Medrano MD LAB POCT ORDERABLES - DEVICE Final Result [facility] Department [place] [address] * LEFT HEART CATHETERIZATION WITH CORONARY ANGIOGRAPHY AND WITH AND WITHOUT LEFT VENTRICULOGRAM (11/19/2024 2:50 PM MECHANICAL ENGINEERING LECTURER) Anatomical Region Laterality Modality X-Ray Angiograph y Impressions 11/19/2024 4:18 PM MECHANICAL ENGINEERING LECTURER Very severe stenosis of the vein graft [...] attempt intervention again. I would suggest a [place] 1 0 guiding catheter and consideration for shockwave versus atherectomy. I was present during the entire procedure and personally dictated or confirmed the above report. Luca Medrano MD Narrative 11/19/2024 4:18 PM MECHANICAL ENGINEERING LECTURER Procedure: CORONARY ANGIOGRAM / RIGHT HEART CATHETERIZATION/percutaneous coronary intervention Patient: Estuardo Copeland is a 54 y.o. female : 1970 MR number: [id number] Date of Service: 11/19/2024 Computer Systems Auditor: Luca Medrano MD Fellow: Josesito Pabon MD [...] obtained. The patient was brought to the equipment operator/laborer/supervisor and placed on the table Bilateral groins [...] coronary artery angiogram performed using a 6 [place] JR4 catheter Right heart catheterization preformed with VANI Sheridan Percutaneous coronary intervention performed on the Proximal saphenous vein graft to the LAD. This was an ACC/AHA Type C. Initial Lesion Length 12mm and final lesion Length 15mm. Initial KAROLINA Flow 3 with visible thrombus present Final KAROLINA Flow 3. Equipment used: 6 3DRC, AirPOS IVUS Catheter, scion blue wire, 0.9 mm laser atherectomy catheter, 2 5 x 15 NC emerge balloon, a 3 0 x 12 mm AngioSculpt balloon, 4 0 by 15 NC emerge balloon, 4 0 x 15 resolute drug-eluting stent, 4 5 x 12 mm NC emerge balloon Attempted intervention on the ostial left main equipment used was a 6 [place] JL 3.5 guiding catheter, she on black [...] than 300. We took up a 6 [place]er 3D RC that sat reasonably well in [...] or perforation. We then took our 6 [place] JL 3.5 guiding catheter attempted to intubate [...] right femoral artery and placed a 6 [place] Angio-Seal. Manual compression was performed on the venous sheath. COMPLICATIONS: None DIAGNOSTIC Luca Medrano MD CV CARDIAC CATH PROCEDURES F inal Result * (ABNORMAL) POCT Activated clotting time, low range (11/19/2024 2:49 PM MECHANICAL ENGINEERING LECTURER) ACT 260(H) 123 - 168 sec POC Performer [id number] [facility] POC Device Number [id number] [facility] Blood 11/19/2024 2:49 PM MECHANICAL ENGINEERING LECTURER 11/19/2024 2:49 PM MECHANICAL ENGINEERING LECTURER Luca Medrano MD LAB POCT ORDERABLES - DEVICE Final Result Performing Organization Address [facility] Co de Phone Number [facility] Department [place] [address] * (ABNORMAL) POCT Activated clotting time, low range (11/19/2024 2:30 PM MECHANICAL ENGINEERING LECTURER) ACT 385(H) 123 - 168 sec POC Performer [id number] [facility] POC Device Number [id number] [facility] Blood 11/19/2024 2:30 PM MECHANICAL ENGINEERING LECTURER 11/19/2024 2:30 PM MECHANICAL ENGINEERING LECTURER Luca Medrano MD LAB POCT ORDERABLES - DEVICE Final Result Performing Organization Address City/[facility]/ZIP Co de Phone Number [facility] Department [place] [address] * (ABNORMAL) POCT Activated clotting time, low range (11/19/2024 2:01 PM MECHANICAL ENGINEERING LECTURER) ACT >400(H) 123 - 168 sec POC Performer [id number] [facility] POC Device Number [id number] [facility] Blood 11/19/2024 2:01 PM MECHANICAL ENGINEERING LECTURER 11/19/2024 2:01 PM MECHANICAL ENGINEERING LECTURER us Luca Medrano MD LAB POCT ORDERABLES - DEVICE Final Result Performing Organization Address [facility]/[place] [address] * Type and screen (11/19/2024 2:01 PM MECHANICAL ENGINEERING LECTURER) ABO Rh B Positive Jorge A, indirect Negative [facility] Blood 11/19/2024 2:01 PM MECHANICAL ENGINEERING LECTURER 11/19/2024 2:14 PM MECHANICAL ENGINEERING LECTURER Narrative [facility] - 11/19/2024 3:08 PM MECHANICAL ENGINEERING LECTURER Has the patient had Daratumumab or Isatuximab in the past 6 months?->Unknown us Luca Medrano MD LAB BLOOD BANK TEST ORDERABL ES Final Result Performing Organization Address City/[facility] Co de Phone Number [facility] [place] [address] * (ABNORMAL) POCT Activated clotting time, low range (11/19/2024 1:53 PM MECHANICAL ENGINEERING LECTURER) ACT >400(H) 123 - 168 sec POC Performer [id number] [facility] POC Device Number [id number] [facility] Blood 11/19/2024 1:53 PM MECHANICAL ENGINEERING LECTURER 11/19/2024 1:53 PM MECHANICAL ENGINEERING LECTURER Luca Medrano MD LAB POCT ORDERABLES - DEVICE Final Result Performing Organization Address [facility] Co de Phone Number [facility] [place] [address] * (ABNORMAL) POCT Activated clotting time, low range (11/19/2024 1:49 PM MECHANICAL ENGINEERING LECTURER) ACT 78(L) 123 - 168 sec POC Performer [id number] [facility] POC Device Number [id number] [facility] Blood 11/19/2024 1:49 PM MECHANICAL ENGINEERING LECTURER 11/19/2024 1:49 PM MECHANICAL ENGINEERING LECTURER Luca Medrano MD LAB POCT ORDERABLES - DEVICE Final Result Performing Organization Address [facility] de Phone Number [facility] [place] [address] * (ABNORMAL) POCT oxyhemoglobin (11/19/2024 1:27 PM MECHANICAL ENGINEERING LECTURER) PHOTOGRAPHIC SPOTTER Oxyhemoglobin 91.6 >=65.0 % PHOTOGRAPHIC SPOTTER Hemoglobin 11.2(L) 11.9 - 15.5 g/dL [facility] PHOTOGRAPHIC SPOTTER O2 content 14.3(L) 15.0 - 22.0 Vol % [facility] Anatomic Site aPOC Aorta [facility] Blood 11/19/2024 1:27 PM MECHANICAL ENGINEERING LECTURER 11/19/2024 1:27 PM MECHANICAL ENGINEERING LECTURER us Luca Medrano MD LAB POCT ORDERABLES - DEVICE Final Result Performing Organization Address [facility] Co de Phone Number [facility] [employer] [place], [place] [id number] * (ABNORMAL) POCT oxyhemoglobin (11/19/2024 1:26 PM MECHANICAL ENGINEERING LECTURER) PHOTOGRAPHIC SPOTTER Oxyhemoglobin 56.2(L) >=65.0 % PHOTOGRAPHIC SPOTTER Hemoglobin 11.0(L) 11.9 - 15.5 g/dL [facility] PHOTOGRAPHIC SPOTTER O2 content 8.6(L) 15.0 - 22.0 Vol % [facility] Anatomic Site aPOC Pulm Artery [facility] Blood 11/19/2024 1:26 PM MECHANICAL ENGINEERING LECTURER 11/19/2024 1:26 PM MECHANICAL ENGINEERING LECTURER Luca Medrano MD LAB POCT ORDERABLES - DEVICE Final Result Performing Organization Address [facility] de Phone Number [facility] [place] [place] [address] * (ABNORMAL) POCT oxyhemoglobin (11/19/2024 1:26 PM MECHANICAL ENGINEERING LECTURER) [facility] PHOTOGRAPHIC SPOTTER Oxyhemoglobin 56.6(L) >=65.0 % PHOTOGRAPHIC SPOTTER Hemoglobin 10.9(L) 11.9 - 15.5 g/dL [facility] PHOTOGRAPHIC SPOTTER O2 content 8.6(L) 15.0 - 22.0 Vol % [facility] Anatomic Site aPOC Pulm Artery [facility] Blood 11/19/2024 1:26 PM MECHANICAL ENGINEERING LECTURER 11/19/2024 1:26 PM MECHANICAL ENGINEERING LECTURER Luca Medrano MD LAB POCT ORDERABLES - DEVICE Final Result Performing Organization Address [facility] de Phone Number [facility] [place] [place] [address] * POC Blood Gas and Chemistries, Arterial - (11/19/2024 11:45 AM MECHANICAL ENGINEERING LECTURER) [facility] K POC 3.7 3.3 - 4.9 mmol/L Comment: Interpretive Data Not all point of care methods assess for hemolysis. Confirm with instrument and retest K+ if not consistent with clinical signs and symptoms. Current Interpretive Data was last revised on 2024. Blood 11/19/2024 11:4 5 AM MECHANICAL ENGINEERING LECTURER 11/19/2024 11:45 AM MECHANICAL ENGINEERING LECTURER Luca Medrano MD LAB POCT ORDERABLES - DEVICE Final Result Performing Organization Address [facility]/ZIP Co de Phone Number [facility] Department [place] [address] * ECG 12 lead (11/19/2024 11:16 AM MECHANICAL ENGINEERING LECTURER) Ventricular Rate EKG/Min 90 BPM [facility] QRS-Interval (MSEC) 84 ms [facility] QT-Interval (MSEC) 404 ms [facility] QTc 494 ms [facility] R [place] 6 degrees [facility] T [place] 144 degrees [facility] Diagnosis Atrial fibrillation Electronic atrial pacemaker Minimal voltage criteria for LVH, may be normal variant ( [place] product ) Septal infarct , age undetermined T wave abnormality, consider lateral ischemia Abnormal ECG Confirmed by HARJINDER HANDY M.D ([id number]) on 11/19/2024 3:59:31 PM [facility] 11/19/2024 11:1 6 AM MECHANICAL ENGINEERING LECTURER 11/19/2024 3:59 PM MECHANICAL ENGINEERING LECTURER us Luca Medrano MD ECG ORDERABLES Final Result Performing Organization Address [facility] de Phone Number [facility] * SCAN - LABS (11/17/2024) us Provider Scanning Final Result * CBC with auto differential (11/16/2024 1:57 PM MECHANICAL ENGINEERING LECTURER) WBC 7.2 3.4 - 10.8 x10E3/uL [facility] [...] [facility] - 01 Blood 11/16/2024 1:57 PM MECHANICAL ENGINEERING LECTURER 11/16/2024 Narrative [facility] - 11/17/2024 8:14 AM MECHANICAL ENGINEERING LECTURER Performed at: [address] [id number] Polisher Brass: Marco Antonio Paiz PhD, Phone: [phone] us Luca Medrano MD LAB BLOOD ORDERABLES Final R [facility]ult [facility] * (ABNORMAL) Basic metabolic panel (11/16/2024 1:57 PM MECHANICAL ENGINEERING LECTURER) [facility] Glucose 88 70 - 99 mg/dL [...] [facility] - 01 Blood 11/16/2024 1:57 PM MECHANICAL ENGINEERING LECTURER 11/16/2024 Narrative [facility] - 11/17/2024 12:09 PM MECHANICAL ENGINEERING LECTURER Performed at: [facility] [id number] Polisher Brass: Marco Antonio Paiz PhD, Phone: [phone] us Luca Medrano MD LAB BLOOD ORDERABLES Final R esult [facility] - * TRANSTHORACIC ECHO (TTE) COMPLETE W DOPPLER/CF W CONTRAST (11/10/2024 4:05 PM MECHANICAL ENGINEERING LECTURER) LV EF % CONS SCIMAGE Anatomical Region Laterality Modality Ultrasound 11/10/2024 2:55 PM MECHANICAL ENGINEERING LECTURER Narrative 11/11/2024 9:34 AM MECHANICAL ENGINEERING LECTURER [facility] [address] , [address] [place] [address] Transthoracic Echocardiographic Report Patient Name: ESTUARDO COPELAND M : 1970 (54y ) Gender: F Study Date: 11/10/2024 02:55:48 PM Ht(Inch): 64 Wt(Lb): 115.08 BSA: 1.54 Histologist: GERA eWlls Location: [facility] Order Provider: LUCA MEDRANO Heart Rate: 76 BMI: 19.75 BP: 94/60 Quality: Technically difficult study due to limited acoustic windows. Ref Provider: LUCA MEDRANO PROCEDURES: Echocardiographic Report: ([id number], [id number], [id number]) Transthoracic complete echo with strain imaging and contrast, 2D, spectral and tissue Doppler, color flow Doppler, M- mode. Additional Procedures: ([id number]) 3D echocardiographic imaging from Echo Machine. Contrast: [...] [ 46.00 - 106.00 ] AI Decel [place] 1.58 m/s2 ESV Mod 2C 14.03 ml [...] By: Silver Levin MD 11/11/2024 9:32:57 AM MECHANICAL ENGINEERING LECTURER Electronically Signed By: Silver Levin MD 11/11/2024 9:32:57 AM MECHANICAL ENGINEERING LECTURER Procedure Note Silver Levin MD - 11/11/2024 [facility] [address] , [address] [place] [address] Transthoracic Echocardiographic Report Patient Name: ESTUARDO COPELAND M : 1970 (54y ) Gender: F Study Date: 11/10/2024 02:55:48 PM Ht(Inch): 64 Wt(Lb): 115.08 BSA: 1.54 Histologist: GERA Wells Location: [facility] Order Provider:LUCA MEDRANO Heart Rate: 76 BMI: 19.75 BP: 94/60 Quality: Technically difficult studydue to limited acoustic windows. Ref Provider: LUCA MEDRANO PROCEDURES: Echocardiographic Report: ([id number], [id number], [id number]) Transthoracic completeecho with strain imaging and contrast, 2D, spectral and tissue Doppler, color flow Doppler,M- mode. Additional Procedures: ([id number]) 3D echocardiographic imaging from [employer]. Contrast: 0.4 ml Optison Administered, (2.6 ml [...] EDV Mod 4C 60.63 ml AI Decel Fhiy3677.11 sec EDV Mod BP 56.21 ml [ 46.00 - 106.00 ] AI Decel [place]1.58 m/s2 ESV Mod 2C 14.03 ml AI LQD931.67 msec ESV Mod 4C 21.21 ml MV [...] cm LA Length 4C 5.48 cm MV VIX394.85 msec [ 20.00 - 100.00 ] LA Volume 2C 34.1 ml MVA PHT2.18 cm2 LA Volume 4C 31.3 ml MV Decel Ccxc519.53 msec [ 104.00 - 258.00 ] LA [...] cm [ 2.70 - 3.70 ] MR TNJ621.8 cm Ao Root Index 1.32 cm/m2 MR [...] By: Silver Levin MD 11/11/2024 9:32:57 AM MECHANICAL ENGINEERING LECTURER Electronically Signed By: Silver Levin MD 11/11/2024 9:32:57 AM MECHANICAL ENGINEERING LECTURER Luca Medrano MD CV ECHO PROCEDURES Final Res ult * HLA Antibody Screen by PRA or SAB per Schedule (Class I and Class II) (11/05/2024 10:00 AM MECHANICAL ENGINEERING LECTURER) Blood 11/05/2024 10:0 0 AM MECHANICAL ENGINEERING LECTURER Narrative [facility] - MECHANICAL ENGINEERING LECTURER Sample received in lab and stored. No testing performed at this time. Salina Hector MD LAB BLOOD ORDERABLES Final Resul t Performing Organization Address City/[facility]/ZIP Co de Phone Number [facility] * HLA Antibody Screen by PRA or SAB per Schedule (Class I and Class II) (09/20/2024 10:00 AM MECHANICAL ENGINEERING LECTURER) Blood 09/20/2024 10:0 0 AM MECHANICAL ENGINEERING LECTURER Narrative [facility] - MECHANICAL ENGINEERING LECTURER Sample received in lab. Single Antigen Antibody Screen ordered. Salina Hector MD LAB BLOOD ORDERABLES Final Resul t Performing Organization Address City/[facility] Co de Phone Number [facility] * HLA Antibody Screen - SAB (Class I and Class II) (09/20/2024 10:00 AM MECHANICAL ENGINEERING LECTURER) Class I Treatment EDTA [facility] Class I [...] DPB1*01:01, DPB1*03:01 [facility] 09/20/2024 10:0 0 AM MECHANICAL ENGINEERING LECTURER 09/24/2024 12:48 PM MECHANICAL ENGINEERING LECTURER Narrative [facility] - 09/24/2024 12:48 PM MECHANICAL ENGINEERING LECTURER Single-antigen HLA antibody screen is performed on serum samples using a method developed and validated by the [facility] HLA laboratory based on an FDA-approved IVD kit (LABScreen Single-Antigen, [employer], [place], [place]). All patient serum samples are pretreated with EDTA before the screen to prevent complement interference. Additional serum treatments, such as adsorption and DTT treatment, may be performed as indicated. Interpretive comments: Low risk: MFI [id number]. Moderate risk: MFI [id number]. Increased risk: MFI >/= 5000. The presence [...] to avoid. Testing performed at the [facility], [address] [place] [address], 5th floor, [facility], [place], [address]. [facility] # [id number]. Rosa Millan, Ph.D., Financial Aid Director, HLA Laboratory Wilmer Prescott M.D., Ph.D., Mica Splitter, HLA Laboratory Alma Payton, Ph.D., CLIA Mica Splitter, [facility] Current methodology and interpretive comments last revised on 11/15/2022. us Salina Hector MD LAB BLOOD ORDERABLES Final Resul t [facility] * Hepatitis C antibody (03/06/2023 10:19 AM CDT) Hep C Ab Nonreactive Nonreactive [facility] Comment:Antibodies to HCV no t detected. Does NOT exclude the possibility of recent exposure to HCV. Current interpretive data was last revised on 22 Blood 03/06/2023 10:1 9 AM CDT 03/06/2023 10:38 AM CDT us Maria Fernanda Bryant MD LAB MICROBIOLOGY - GENERAL ORDERABLES Final Result [facility] Department [place] [address] from Last 3 Months or Most Recently Relevant to Health Maintenance Insurance [facility] CHOICE [facility] H[facility]/PPO Address: [facility] [address] [place] [address] MEDICARE [facility] CHOICE [facility]US [facility] HMO/PPO Address: [address] [address] [place] [address] [facility] CHOICE [facility] H[facility]/PPO Address: [address] [address] [place] [address] MEDICARE MEDICARE [facility] CHOICE PLUS [facility] HMO/PPO Address: [address] [address] [place] [address] [employer] Advance Directives For more information, please contact: [phone] * Full Code (Latest Code Status on [...] 7:30 PM 07/25/2022 6:47 PM Care Teams Movie Actor Relationship Specialty Start Date End Date Pal Downey DO PCP - General Internal Medicine 01/25/21 Quinton Rowan MD Referring Physician Cardiology 01/09/19 Tami Flores, TONO [address] [address] [address] Supervisor 01/25/21 Cricket Escalante MD [address] [address] Referring Physician Nephrology 03/24/21 Gael Sprague MD PhD [address] [address] Fellow Endocrinology Diabetes & Metabolism 03/24/21 Brad Turner MD [address] [address] Consulting Physician Obstetrics and Gynecology 03/24/21 Margarita Montoya MD 68[address] [facility] [address] [address] Consulting Physician Trauma Surgery 12/27/21 Luca Medrano MD [address] [facility] [address] [place] [address] Consulting Physician Cardiology 08/03/22 Pb Galloway MD [address] [facility] [phone] [place] [address] Cardiothoracic Surgery 05/25/24 Felipe Gerber MD [address] [facility] [phone] [place] [address] Consulting Physician Cardiology 05/25/24
--- OUTSIDE RECORDS SUMMARY | 2024-11-27 10:59 | XMS_ITS ---
Author Organization [facility] Address [address] [place] [address] Care Team Providers Care Calender Feeder Name Role Phone Quinton Rowan MD Unavailable [phone] Pal Downey DO Primary Care Provider + [phone] Tami Flores RN Unavailable Cricket Escalante MD Unavailable [phone] Gael Sprague MD PhD Unavailable Brad Turner MD Unavailable [phone] Margarita Montoya MD Unavailable Luca Lott MD Unavailable [phone] Pb Galloway MD Unavailable Felipe Gerber MD Unavailable [phone] Transplant Episode Kidney Candidate [facility] ([place], [place]) [facility] Center waitlisted on 09/05/2021 Marked as Inactive on 03/13/2024 Reason: 03 - Candidate Work-up Incomplete Kidney CoordinatorTami Flores RN Email: N/A Scores Score Value Updated Exceptions/Reas ons CPRA Not available EPTS (Calc) 27 11/27/2024 [place] Organ Diagnosis Organ Primary Contributory Kidney Polycystic Kidneys Care Team Name Role Phone Fax Email Tami Flores RN Kidney Coordinator [phone] N/A Mariann Bobo Director Biology [phone] N/A N/A Events Pre-Transplant Referred: 10/06/2020 Evaluation began: 03/24/2021 Committee: 09/04/2021 Center waitlisted: 09/05/2021 Dialysis History Dialysis History Start End Type Comments Center 01/09/2022 Peritoneal [facility] D[facility] Information Center Phone Fax Address [facility] [phone] [address]
--- OUTSIDE RECORDS SUMMARY | 2024-11-27 10:59 | XMS_ITS | Clinical Summary ---
Author Organization [facility] [employer] Address [address] [place] [address] Care Team Providers Care Paper Gluing Operator Name Role Phone Danielle Hawkins Primary Care Provider Unavailabl e Source Comments [facility] [employer],non-owned Affiliates and Associated Physician Practices is amultiple site organization consisting of ambulatory clinics and hospital sitesin [place], [place] and [place]. This disclosure is being madepursuant to the Care Everywhere program and may not contain all information available regarding this patient. Last updated 18.[facility] [employer] Allergies Active Allergy Reactions Criticality Noted Date [...] Comments Blood Pressure 145/91 09/06/2016 9:59 AM HEADING SAW OPERATOR Pulse 79 09/06/2016 9:59 AM HEADING SAW OPERATOR Temperature 36.4 C (97.5 F) 12/23/2015 3:20 PM HEADING SAW OPERATOR Respiratory Rate 12 09/06/2016 9:59 AM HEADING SAW OPERATOR Oxygen Saturation 100% 12/23/2015 3:20 PM HEADING SAW OPERATOR Inhaled Oxygen Concentration - - Weight 60.8 kg (134 lb) 09/06/2016 9:59 AM HEADING SAW OPERATOR Height 162.6 cm (5' 4 ) 09/06/2016 9:59 AM HEADING SAW OPERATOR Body Mass Index 23 09/06/2016 9:59 AM HEADING SAW OPERATOR Plan of Treatment Health Maintenance Due Date [...] age to complete this topic Care Teams Paper Gluing Operator Relationship Specialty Start Date End Date Danielle Hawkins Update Information PCP - General 04/29/15
--- OUTSIDE RECORDS SUMMARY | 2024-11-27 10:59 | XMS_ITS | Continuity of Care Document ---
Author Organization [facility] Address [address] [place] [address] [place] [address] Phone Care Team Providers Care Entry Tech Name Role Phone Ez Kc Unavailable Unavailable Procedures Procedure Date Office/outpatient Visit, Est Office/outpatient Visit, Est Advance Directives Directive Yes / No Effective Date File Name No Information Encounters Encounter Description Practice Location Reason(s) For Visit Diagnoses Date Provider Providers Copied on Encounter Office/outpat ient Visit, [facility], [address] [place] [address] [address], [place], [place], [id number], tel:[phone] [facility] No Information 0 Doisy Ez. [facility], [place], [place], [facility], [place]. tel:[phone] Office/outpat ient Visit, [facility], [address] [place] [address] [address], [place], [place], [id number], tel:[phone] [facility] No Information 0 Camara OD Дмитрий. [address] , [address], [place], [address], [place]. tel:[phone] Family History Family Member Type Diagnosis Age At Onset No Information Payers Payer name Insurance type Covered libertarian ID Authoriza tion(s) Medicaid [facility] [id number] Social History Type Description Quantity Date Captured [...]
--- OUTSIDE RECORDS SUMMARY | 2024-11-27 10:59 | XMS_ITS | Clinical Summary ---
Author Organization [facility] Address [facility] [place] [address] Care Team Providers Care Books Binder Name Role Phone Unavailable Primary Care Provider [...]
--- OUTSIDE RECORDS SUMMARY | 2024-11-27 11:00 | XMS_ITS | Clinical Summary ---
Author Organization [facility] Address [address] [place] [id number] Phone Care Team Providers Care Hand Clipper Name Role Phone ScarlettmelanyPal ibarra DO Primary Care Provider [phone] Allergies Active Allergy Reactions Criticality Noted Date [...] has previously tolerated cephalosporins. Jack PottsD 05/10/2019 Other reaction(s): Unknown Per Armani Dumas [...] Comments Blood Pressure 122/70 12/22/2021 9:43 PM DOCK COORDINATOR Pulse 72 12/22/2021 9:43 PM DOCK COORDINATOR Temperature 36.2 C (97.2 F) 12/22/2021 9:43 PM DOCK COORDINATOR Respiratory Rate - - Oxygen Saturation - - Inhaled Oxygen Concentration - - Weight 50.3 kg (111 lb) 12/22/2021 9:43 PM DOCK COORDINATOR Height 162.6 cm (5' 4 ) 12/22/2021 9:43 PM DOCK COORDINATOR Body Mass Index 19.05 12/22/2021 9:43 PM DOCK COORDINATOR Plan of Treatment Health Maintenance Due Date Last Done Comments Influenza Vaccine (#1) 2024 10/21/2017 Care Teams Hand Clipper Relationship Specialty Start Date End Date Pal Downey DO [address] [place] [address] PCP - General Internal Medicine 02/04/19
--- OUTSIDE RECORDS SUMMARY | 2024-11-27 11:00 | XMS_ITS | Patient Health Summary ---
Author Organization [facility] [employer] Address [address] [place] [address] Care Team Providers Care Human Anatomy Teacher Name Role Phone Danielle Hawkins Primary Care Provider Unavailabl e Note from [facility],non-owned Affiliates and Associated Physician Practices is amultiple site organization consisting of ambulatory clinics and hospital sitesin [place], [place], [place] and [place]. This disclosure is being madepursuant to the Care Everywhere program and may not contain all information available regarding this patient. Last updated 18.[facility] [employer] Allergies * Ampicillin(Anaphylaxis) -High Criticality * Ciprofloxacin(Nausea) [...] Comments Blood Pressure 145/91 09/06/2016 9:59 AM [employer] LABOURER Pulse 79 09/06/2016 9:59 AM [employer] LABOURER Temperature 36.4 C (97.5 F) 12/23/2015 3:20 PM [employer]OURER Respiratory Rate 12 09/06/2016 9:59 AM [employer]ER Oxygen Saturation 100% 12/23/2015 3:20 PM [employer]ER Inhaled Oxygen Concentration - - Weight 60.8 kg (134 lb) 09/06/2016 9:59 AM [employer] LABOURER Height 162.6 cm (5' 4 ) 09/06/2016 9:59 AM [employer] LABOURER Body Mass Index 23 09/06/2016 9:59 AM [employer] LABOURER Procedures * BASIC METABOLIC PANEL (CALCIUM TOTAL)(Performed [...] METABOLIC PANEL (CALCIUM TOTAL) (12/14/2015 7:25 AM [employer]OURER) Only the most recent of2 resultswithin the time period is included. BUN 21 7 - 26 mg/dL [facility] Creatinine 1.3(H) 0.6 - 1.2 mg/dL [facility] Sodium 140 136 - 145 mmol/L [facility] Potassium 3.6 3.5 - 4.5 mmol/L [facility] Chloride 105 98 - 107 mmol/L [facility] CO2 26 22 - 29 mmol/L [facility] Glucose 85 70 - 115 mg/dL [facility] Calcium 8.2(L) 8.4 - 10.2 mg/dL [facility] Anion Gap 13 8 - 18 [facility] BUN/Creatinine Ratio 16 7 - 23 [facility] Osmolality Calculated 278 270 - 300 mOsm/kg [facility] eGFR 44(L) >60 mL/min/1.7 3 m2 [facility] Blood specimen (specimen) BLOOD SPECIMEN / Unknown 12/14/2015 7:25 AM [employer]ER 12/14/2015 7:36 AM [employer]OURER Shabana Mancilla MD LAB - CHEMISTRY RADHIKA NUÑEZ Performing Organization Address [facility]/ZIP Co de Phone Number [address] [phone] * TSH (10/07/2015 9:18 AM [employer]ER) TSH 0.722 0.350 - 4.940 uIU/mL [facility] Blood specimen (specimen) BLOOD SPECIMEN / Unknown 10/07/2015 9:18 AM [employer]ER 10/07/2015 9:24 AM [employer]ER Yue Cummings RETAIL SALES DIRECTOR-STRETCHER AND DRIER LAB - CHEMIS TRY ORDERABLES Performing Organization Address [facility] Co de Phone Number [address] [phone] * T4 FREE (10/07/2015 9:18 AM [employer]OURER) T4 Free 1.5 0.7 - 1.5 ng/dL [facility] Blood specimen (specimen) BLOOD SPECIMEN / Unknown 10/07/2015 9:18 AM [employer] LABOURER 10/07/2015 9:24 AM [employer]ER Yue Cummings RETAIL SALES DIRECTOR-STRETCHER AND DRIER LAB - CHEMIS TRY ORDERABLES Performing Organization Address [facility]/ZIP Co de Phone Number [address] [phone] * LAB HISTORICAL RESULTS-ONBASE (10/05/2015) 10/05/2015 Narrative [facility] - 10/06/2015 11:18 AM [employer]OURER Historical Provider LAB - CHEMISTRY Abhi DE LA FUENTE Performing Organization Address City/[facility] Co de Phone Number [facility] [address] * (ABNORMAL) CALCIUM IONIZED WHOLE BLOOD (08/13/2015 5:14 AM CDT) Only the most recent of7 resultswithin the time period is included. Ionized Calcium Whole Blood 1.13 mmol/L [facility] Adjusted Ionized Calcium 1.12(L) 1.19 - 1.34 mmol/L [facility] pH Whole Blood 7.38 7.35 - 7.45 [facility] Blood specimen (specimen) BLOOD SPECIMEN / Unknown 08/13/2015 5:14 AM CDT 08/13/2015 5:24 AM CDT Ángel Jones MD LAB - CHEMISTRY RADHIKA NUÑEZ Performing Organization Address [facility] Co de Phone Number [address] [phone] * (ABNORMAL) PTH POST-OP OR ONLY (08/11/2015 10:04 AM CDT) PTH Post-Operative 10.2(L) See Comment pg/mL [facility] Comment: A decrease in cirulating PTH of 50% or more, ten minutes post-resection, signals successful removal of the abnormally secreting parathyroid tissue. Blood specimen (specimen) BLOOD SPECIMEN / Unknown 08/11/2015 10:04 AM CDT 08/11/2015 10:10 AM CDT Ángel Jones MD LAB - CHEMISTRY RADHIKA NUÑEZ Performing Organization Address City/[facility]/ZIP Co de Phone Number [address] [phone] * PATHOLOGY TISSUE (08/11/2015 9:03 AM CDT) [...] follows: A1 entire small superior nodule A2-A4 arborist representative section of the larger nodule A5 [...] 1.8 cm. Both nodules have a firm, [id number]-[id number] color. The larger nodule also abuts the margin. B1 two serial sections of smaller, more superior nodule B2-B4 arborist representative section of the larger nodule PD/edk MICROSCOPIC DESCRIPTION: The thyroid has nodular hyperplasia. A hypercellular right parathyroid gland is seen (B2, B3, B4). A small portion of thymus is present (B3). DECORATING INSTRUCTOR/director outcomes The performance characteristics of all immunohistochemical and indirect immunofluorescence stains (if any) cited in this report were determined by the [facility]opathology [facility] of [facility]. Some of these tests were developed [...] by Chiqui Joseph MD. Electronically signed 08/16/2015 [facility] (JOHN) Other (qualifier value) 08/11/2015 9:03 AM CDT 08/11/2015 10:54 AM CDT Narrative [facility] ([facility]OHN) - 08/16/2015 6:01 PM CDT PROBLEM LIST: Patient Active Problem List: Multinodular goiter Vocal cord paralysis PRE-OP DIAGNOSIS: THYROID NEOPLASM OPERATIVE PROCEDURE / FINDINGS: Procedure(s) with comments: TOTAL THYROIDECTOMY WITH RLN - [id number], [id number] POST-OP DIAGNOSIS: * No post-op diagnosis entered * Collection Date->08/11/15 Collection Time-> 9:03 AM Specimen A->Thyroid left lobe, stitch superior perm path Specimen B->Thyroid right lobe, stitch superior. perm path Ángel Jones MD LAB - PATHOLOGY/CYTO LOGY ORDERABLES Performing Organization Address City/[facility] Co de Phone Number [facility] (BEAKER) * TYPE + SCREEN PANEL (08/11/2015 6:55 AM CDT) Typem B POS [facility] Antibody Screen NEG [facility] Blood specimen (specimen) 08/11/2015 6:55 AM CDT 08/11/2015 7:00 AM CDT Ángel Jones MD LAB - BLOOD BANK ORD ERABLES Performing Organization Address [facility] Co de Phone Number [facility] [address] * PATHOLOGY/GENETICS HISTORICAL-ONBASE (08/11/2015) 08/11/2015 Narrative [facility] - 08/17/2015 12:09 PM CDT Historical Provider LAB - CHEMISTRY O RDERABLES Performing Organization Address [facility] Co de Phone Number [facility] [address] * (ABNORMAL) CBC W AUTO DIFFERENTIAL (07/29/2015 2:43 PM CDT) Only the most recent of2 resultswithin the time period is included. WBC 7.3 3.5 - 10.5 10 3/uL [facility] RBC 5.14(H) 3.90 - 5.00 10 6/uL [facility] Hemoglobin 14.9 12.0 - 15.5 g/dL [facility] Hematocrit 43.8 35.0 - 45.0 % [facility] MCV 85.2 81.0 - 97.0 fL [facility] MCH 29.0 28.0 - 34.0 pg [facility] MCHC 34.0 32.0 - 36.0 g/dL [facility] Platelet Count 164 150 - 400 10 3/uL [facility] RDW-SD 39.3 36.0 - 50.0 fL [facility] RDW-CV 12.7 11.2 - 14.8 % [facility] MPV 10.4 9.3 - 12.8 fL [facility] Neutrophils % 69.0 35.0 - 70.0 % [facility] Lymphocytes % 20.9 19.7 - 55.1 % [facility] Monocytes % 6.0 3.0 - 15.0 % [facility] Eosinophils % 3.8 0.0 - 6.0 % [facility] Basophil % 0.3 0.0 - 1.5 % [facility] Neutrophils Absolute 5.0 1.6 - 7.0 10 3/uL [facility] Lymphocyte Absolute 1.5 0.8 - 2.9 10 3/uL [facility] Monocytes Absolute 0.44 0.14 - 0.66 10 3/uL [facility] Eosinophils Absolute 0.28(H) 0.00 - 0.22 10 3/uL [facility] Basophils Absolute 0.02 0.00 - 0.06 10 3/uL [facility] Immature Granulocytes % 0.1 0.0 - 1.0 % [facility] Blood specimen (specimen) BLOOD SPECIMEN / Unknown 07/29/2015 2:43 PM CDT 07/29/2015 2:46 PM CDT Jay King DO LAB - HEMATOLOGY OR DERABLES Performing Organization Address City/State/[facility] Co de Phone Number [facility] [address] [phone] * EKG 12-LEAD (07/29/2015 12:00 AM CDT) EKG [facility] Comment: Exam Date/Time: Jul 29 2015 14:10:37 Test Reason : History of aortic stenosis Blood Pressure : / mmHG Vent. Rate : 074 BPM Atrial Rate : 074 BPM P-R Int : 092 ms QRS Dur : 084 ms QT Int : 386 ms P-R-T Axes : 075 054 073 degrees QTc Int : 428 ms Sinus rhythm with short OK with Premature atrial complexes with Aberrant conduction Otherwise normal ECG No previous ECGs available Confirmed by Duc RICHARDSON, DANIEL ([id number]), electronic news gathering editor Robinson Mcdonough ([id number]) on 09/14/2015 11:29:27 AM Referred By: REFERRING NO Confirmed By:DANIEL RICHARDSON M.D. 07/29/2015 Jay King DO ECG ORDERABLES Performing Organization Address City/State/[facility] Co de Phone Number [facility] Care Teams Human Anatomy Teacher Relationship Specialty Start Date End Date Danielle Hawkins Update Information PCP - General 04/29/15
== END 2024-11-27 10:15 | disposition home or self-care (01) ==
PROVIDERS: PCP Internal Medicine; Visit Provider Urology
DX: J81.1 Chronic pulmonary edema (principal); J90 Pleural effusion, not elsewhere classified; Q61.3 Polycystic kidney, unspecified
CPT/HCPCS: 74176

== ENCOUNTER 2025-01-12 15:45 | Outpatient (CLI) | payer MEDICARE, OTHER, SELFPAY ==
--- NOTE | ~2025-01-12 | CT_ITS ---
EXAMINATION: CT abdomen pelvis wo con DATE: 01/12/2025 16:08 INDICATION: acute flank pain TECHNIQUE: Computed tomography (CT) of the abdomen and pelvis was performed without intravenous contr ast. Automated exposure control and iterative reconstruction technique were employed. The dose-length product was 177.20 mGy-cm. COMPARISON: 11/27/2024, 12/17/2023. FINDINGS: Lower thorax: Septal thickening. Small left simple pleural fluid collection with subpulmonic componen t. Median sternotomy wires. Pacer leads. Bilateral breast implants. Liver: Innumerable simple and indeterminate density cysts and masses, with coarse calcifications at t he dome, grossly unchanged. Biliary/Gallbladder: Gallbladder is contracted. No bile duct dilation. Pancreas: No mass or duct dilation. Spleen: Normal. Adrenals:No mass. Kidneys: Bilateral renal enlargement. The renal parenchyma is diffusely replaced by simple, indetermi thompson density, and hyperdense cysts with innumerable calcifications. GI tract: No small or large bowel dilation. Normal appendix. Mesentery/Peritoneum: No mass or free air. Moderate volume simple ascites. Retroperitoneum: No mass. Atherosclerotic calcifications of intra-abdominal arterial vessels. Pelvis: Empty urinary bladder. Absent uterus. Unremarkable bilateral ovaries. Soft Tissues: Right midabdominal entry peritoneal dialysis catheter, coil in the pelvis. Bones: No acute osseous finding. IMPRESSION: Mild pulmonary edema. Small left pleural effusion with subpulmonic component. Polycystic kidney disease. Incidental neoplasm is not excluded. The ureters are difficult to trace due to distorted anatomy. No definite hydronephrosis. No definite new calcification in the expected pathways of the ureters. Moderate ascites. Reviewed, dictated and finalized at location K. IMPRESSION: Mild pulmonary edema. Small left pleural effusion with subpulmonic component. Polycystic kidney disease. Incidental neoplasm is not excluded. The ureters are difficult to trace due to distorted anatomy. No definite hydron ephrosis. No definite new calcification in the expected pathways of the ureters . Moderate ascites.
--- NOTE | ~2025-01-12 | XR_ITS ---
XR abdomen/kub 1V Ordering provider: Rio Cai MD History: . flank pain left side, pain all over since Saturday . Comparison: None. FINDINGS: BOWEL: Nonobstructive bowel gas pattern. ORGANOMEGALY: None. SIGNIFICANT PATHOLOGIC CALCIFICATIONS: None. Right ureteric stent unchanged from previous examinati on. OTHER: No free air is seen under the diaphragm. Levoscoliosis. IMPRESSION: NO ACUTE ABDOMINAL FINDINGS. Reviewed, dictated and finalized at location A.
--- OUTSIDE RECORDS SUMMARY | 2025-01-12 18:16 | XMS_ITS | Clinical Summary ---
Author Organization [facility] Address [facility] [place] [address] Care Team Providers Care Casserole Preparer Name Role Phone Unavailable Primary Care Provider [...]
--- OUTSIDE RECORDS SUMMARY | 2025-01-12 18:16 | XMS_ITS | Referral Summary ---
Author Organization [facility] Address [address] [place] [address] Care Team Providers Care Machine Set Up Operator Paper Goods Name Role Phone Quinton Rowan MD Unavailable Pal Downey DO Primary Care Provider [phone] Tami Flores RN Unavailable Cricket Escalante MD Unavailable Gael Sprague MD PhD Unavailable Brad Turner MD Unavailable [phone] Margarita Montoya MD Unavailable Luca Medrano MD Unavailable Pb Galloway MD Unavailable Felipe Gerber MD Unavailable [phone] Encounters Date Type Department Care Team Description 01/12/2025 Orders Only [facility] Transplant Kidney [address] [facility] 340 Mailstop [id number] [place] [address] Tami Flores, RN ESRD (end stage renal disease) (HCC) (Primary Dx) 01/04/2025 10:00 AM CDT - 01/04/2025 11:59 PM CDT Hospital Encounter [address] [address] ESRD (end stage renal disease) (HCC) Discharge Disposition: Discharge to home or self care 12/29/2024 Telephone [facility] Cardiology [address] [place] [address] Office [address] [place] [phone] Luca Medrano MD transplant candidacy 12/25/[address] Office Building [address] [place] [phone] Luca Medrano MD post PCI recs 12/25/2024 8:00 AM [employer] - 12/25/2024 10:05 AM [employer] Surgery [facility] [address] [place] [phone] Luca Medrano MD PCI KARINA MAJOR CORONARY [id number] - [id number] 12/25/2024 6:32 AM [employer] - 12/25/2024 3:55 PM [employer] Hospital Encounter 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 8th [place] [address] [place] [address] Luca Medrano MD critical lab result 12/14/[address] Office Building [address] [place] [address] Luca Medrano MD PCI per Dr. Medrano 11/27/2024 10:00 AM [employer] - 11/27/2024 11:59 PM [employer] Hospital Encounter [facility] [address] [address] ESRD (end stage renal disease) (HCC) Discharge Disposition: Discharge to home or self care 11/19/2024 2:02 PM [employer] - 11/19/2024 3:42 PM [employer] Surgery [facility] [address] [place] [address] Luca Medrano MD LEFT HEART CATHETERIZATION WITH CORONARY ANGIOGRAPHY AND WITH OR WITHOUT LEFT VENTRICULOGRAM [id number] 11/19/2024 11:04 AM [employer] - 11/19/2024 7:20 PM [employer] Hospital Encounter 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 Office Visit [facility]iology [address] [place] [address] Medicine 8th [place] [address] [place] [address] Lane Ramos MD PhD SSS (sick sinus syndrome) (HCC) (Primary Dx) 11/18/2024 11:15 AM [employer] Ancillary Procedure [address] 8th [place] [address] [place] [address] SSS (sick sinus syndrome) (HCC) (Primary Dx); Fitting or adjustment of cardiac pacemaker 11/17/2024 Orders Only [facility] C[facility] Scanning, Provider 11/16/2024 Orders Only [facility]iology [address] [place] [address] Office Building [address] [place] [address] Lane Ramos MD PhD 11/10/2024 Telephone [facility]iology [address] [place] [address] Office Building [address] [place] [address] Luca Medrano MD [facility] 11/10/2024 3:00 PM [employer] Ancillary Procedure [facility] [address] [place] [address] [address] [place] [address] Acute diastolic heart failure (HCC) 11/05/2024 10:00 AM [employer] - 11/05/2024 11:59 PM [employer] Hospital Encounter [facility] [address] [place] [address] ESRD (end stage renal disease) (HCC) Discharge Disposition: Discharge to home or self care 11/05/2024 Orders Only [facility]iology [address] [facility] 8th [place] [address] [place] [address] Luca Medrano MD 11/04/2024 11:30 AM 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 from Last 3 Months Allergies Active Allergy [...] by mouth once a week Sundays 0 11/07/19 19 Active VENTOLIN HFA 90 mcg/actuation inhaler Inhale 2 puffs every 4 (four) hours as needed for wheezing or shortness of breath 3 10/11/20 18 Active multivit-min/daniel us fumarate (MULTI VITAMIN ORAL) Take 1 tablet by mouth every morning Active sulfamethoxazole-t rimethoprim (BACTRIM DS) 800-160 mg per tablet 1 tablet (160 mg of trimethoprim total) daily as needed 01/11/20 22 Active gentamicin (GARAMYCIN) 0.1 % cream APPLY TO EXIT SITE ONCE DAILY 01/10/20 22 Active loratadine (CLARITIN) 10 mg tablet Take 1 tablet (10 mg total) by mouth daily as needed Active fluconazole (DIFLUCAN) 100 mg tablet as needed 09/10/20 23 Active levothyroxine (SYNTHROID) 137 mcg tablet Take 1 tablet (137 mcg total) by mouth daily 08/05/20 23 Active acetaminophen (TYLENOL) 325 mg tabletIndications: Fever,Pain Take 2 tablets (650 mg total) by mouth every 4 (four) hours as needed for pain 05/25/20 24 Active midodrine (PROAMATINE) 10 mg tabletIndications: Symptomatic Orthostatic Hypotension Take 1 tablet (10 mg total) by mouth 3 (three) times a day before meals 90 tablet 1 05/25/20 24 Active ondansetron ODT (ZOFRAN-ODT) 4 mg disintegrating tablet Take 1 tablet (4 mg total) by mouth every 8 (eight) hours as needed for nausea or vomiting 20 tablet 1 05/25/20 24 Active gabapentin (NEURONTIN) 100 mg capsule 06/18/20 24 Active Xphozah 30 mg tablet 06/01/20 24 Active azithromycin (ZITHROMAX) 500 mg tablet TAKE 1 TABLET BY MOUTH 30 MINUTES BEFORE APPOINTMENT OR PROCEDURE. 07/28/20 24 Active nitroglycerin (NITROSTAT) 0.[address] 1 tablet (0.4 mg total) under the tongue every 5 (five) minutes as needed for chest pain May repeat dose q 5 min, up to 3 doses total 30 tablet 11/05/19 25 Active fludrocortisone 0.1 mg tablet Take 1 tablet (0.1 mg total) by mouth daily 11/11/19 25 Active ergocalciferol (VITAMIN D) 50,000 unit capsule Take 1 capsule (50,000 Units total) by mouth 11/11/19 25 Active ferric citrate (Auryxia) 210 mg iron tablet Take 1 tablet (210 mg total) by mouth 2 (two) times a day Active aspirin 81 mg enteric coated tablet Take 1 tablet (81 mg total) by mouth daily 30 tablet 11 11/19/19 25 026 Active clopidogreL (PLAVIX) 75 mg tablet TAKE 1 TABLET BY MOUTH EVERY DAY 90 tablet 1 12/08/19 25 Active bempedoic acid 180 mg tablet Take 1 tablet by mouth daily 90 tablet 3 12/26/19 25 Active Active Problems Problem Noted Date Diagnosed [...] disease 07/08/2023 ESRD (end stage renal disease) 04/12/2023 Assessment & Plan (05/21/2024 2:22 PM CDT): On peritoneal dialysis-management per renal team Chronic heart failure 08/02/2022 Assessment & Plan (05/24/2024 11:22 AM [...] telemetry, daily weights End stage renal disease 08/02/2022 Assessment & Plan (08/03/2022 9:30 AM CDT): -Hx of PCKD -Kidney transplant workup on hold until cardiac issues resolved -Started PD early 2021 -continue phoslo -renal consulted for PD assistance Shoulder pain 07/21/2022 Pre-transplant evaluation for end stage renal di sease 02/01/2022 Overview (02/01/2022): Added automatically from request for surgery [id number] Disorder of peritoneal dialysis catheter 022 Overview (12/22/2021): Added automatically from request for surgery [id number] Chronic kidney disease, stage V 10/31/2021 Overview (08/21/2023): Added automatically from request for surgery [id number] Sick sinus syndrome 11/02/2020 Diastolic heart failure 10/27/2019 S/P placement [...] PM CDT): Potassium level 3.4 this morning 11/22 diuresis -Supplemented with 40 mEq PO this morning -Monitor electrolytes daily while diuresing Consolidation of left lower lobe of lung 019 Assessment & Plan (05/24/2019 11:10 AM CDT): [...] for nausea has helped Severe protein-calorie malnutrition 05/10/2019 Assessment & Plan (05/11/2019 7:06 AM CDT): Supplement w/ ensure Perivalvular leak of prosthetic heart valve 04/20 Assessment & Plan (05/25/2024 8:06 AM CDT): Severe bioprosthetic valvular dysfunction Previous bioAVR with TAVR in 2019 Alexis TAVR 05/21 DAPT given previous PCI Monitor [...] mod-severe TR NSTEMI (non-ST elevated myocardial infarction) 0 02/07/2019 Assessment & Plan (05/12/2019 10:18 AM [...] Assessment & Plan (02/25/2019 11:43 AM CDT): [facility] with 95% LAD lesion, had some [...] Assessment & Plan (02/24/2019 9:29 AM CDT): [facility] with 95% LAD lesion, had some [...] Assessment & Plan (02/20/2019 5:17 AM CDT): [facility] with 95% LAD lesion, had some RV dysfunction during AV repair and found to have RCA occlusion following LAD bypass - s/p IABP placement - CABG to LAD and LCA Assessment & Plan (02/19/2019 2:08 AM CDT): [facility] with 95% LAD lesion, had some RV dysfunction during AV repair and found to have RCA occlusion following LAD bypass - s/p IABP placement - CABG to LAD and LCA Assessment & Plan (02/17/2019 7:38 PM CDT): [facility] with 95% LAD lesion, had some RV dysfunction during AV repair and found to have RCA occlusion following LAD bypass - s/p IABP placement - CABG to LAD and LCA - on Epi and Milrinone, wean epi as above Assessment & Plan (02/16/2019 11:38 PM CDT): [facility] with 95% LAD lesion, had some RV dysfunction during AV repair and found to have RCA occlusion following LAD bypass - s/p IABP placement - CABG to LAD and LCA - on Epi and Milrinone of inotropy Assessment & Plan (02/11/2019 6:16 PM CDT): [facility] with 95% LAD lesion, had some RV dysfunction during AV repair and found to have RCA occlusion following LAD bypass - s/p IABP placement - CABG to LAD and LCA - on Epi and Milrinone of inotropy Assessment & Plan (02/08/2019 5:38 PM CDT): -Patient w/ chest pain/SOB along w/ significant troponin elevation -Plan for [facility] w/ possible PCI tomorrow pending results -heparin, [...] to 4.35 - valve team consulted, 02/09 [facility] with severe 1 vessel disease of [...] (02/09/2019): Added automatically from request for surgery [id number] Assessment & Plan (05/17/2019 9:19 AM CDT): [...] (02/10/2019): Added automatically from request for surgery [id number] Assessment & Plan (05/24/2024 11:21 AM CDT): [...] with left shoulder pain similar to previous MA -EKG changes per OSH --Slight elevation in [...] currently stable Daily BMPs, while inpatient Home sizing sponger is Dr. Escalante Continue lasix 40 mg [...] kidney disease, baseline Cr 2.4-2.6. F/b OSH sizing sponger. Apparently discussions for potential need for renal txp being discussed. - Cr at baseline on adm - avoid nephrotoxins, renally dose meds - continue calcitriol 0.5 mcg/day - Cr 2.75, received pre-cath hydration, stable 2.7 Headache 05/02/2016 Moderate COPD (chronic obstr uctive pulmonary disease) ([facility]) 11/02/2015 Assessment & Plan (08/02/2022 [...] Assessment & Plan (05/25/2024 8:08 AM CDT): Alexis TAVR 05/21 Followed by [facility], Dr. Medrano. CT TAVR on 04/28 showed prosthetic aortic valve stenosis and NEW filling defect along the posterior aspect of the prosthetic valve near the ventricular outflow tract, which may represent thrombus or pannus. Post op ALEXIS c/b hypotension requiring brief pressors and hypoxemia requiring supplemental O2. Troponin elevated, peaked at 1059 likely secondary to TAVR, no ischemic changes on EKG. TTE 05/22 s/p Alexis-TAVR shows bioprosthetic valve well seated, no AR, [...] a candidate for intervention (declined by [facility], [facility]) Assessment & Plan (05/17/2019 9:28 AM CDT): [...] AV. Referred to valve team by primary acid operator Dr. Rowan. Seen 02/02 by valve [...] around 2.4 Dr Escalante is her home sizing sponger Assessment & Plan (02/23/2019 12:20 PM CDT): Pt above POW by 2 kg. Lasix on hold due to elevation in Creatinine Baseline creat is around 2.4 Dr Escalante is her home sizing sponger Agitation requiring sedation protocol 02/14/2019 02/23/2019 Acute pain 02/14/2019 02/23/2019 Acute respiratory failure with hypoxia 02/11/2019 02/23/2019 Overview (02/11/2019): Assessment & Plan [...] she had reactions to (?). Per OSH sizing sponger's note in Care Everywhere, pt tried metoprolol [...] hydral 25 TID (for afterload reduction) Immunizations Immunization Administration Dates Next Due Hep B Vaccine 02/24/2024,,09/23/2023,08/30/2023,04/30/2022,06/0 10/2021,02/19/2022 Influenza, Split 10/21/2017 PPD TEST 03/23/2024,03/25/2023 Social History Tobacco Use Types Packs/Day Years Used Date Smoking Tobacco: Former Cigarettes 1 20 0 04/01/1992 - 04/01/2012 Smokeless Tobacco: Never Tobacco Cessation:Counseling Given: Not Answered Alcohol Use Standard Drinks/Week Comments Yes 0 (1 standard drink = 0.6 oz pur e alcohol) occasional AUDIT-C Answer Date Recorded Q1: How often do you have a drink containing alcohol? Never 12/25/2024 Q2: How many drinks containi ng alcohol do you have on a typical day when you are drinking? Patient does not drink Q3: How often do you have si x or more drinks on one occasion? Never 12/25/2024 Personal Safety Answer Date Recorded Have you ever been in or are you currently in a harmful physical or emotional relationship or is someone making you feel afraid or unsafe? Denies 12/25/2024 Comments No Sex and Gender Information Value Date Recorded Sex Assigned at Not on file Legal Sex Female 4:06 AM [employer] Gender Identity Female 01/16/2024 11:18 AM CDT Sexual Orientation Straight 01/16/2024 11 :18 AM CDT Last Filed Vital Signs Vital Sign Reading Time Taken Comments Blood Pressure 90/66 12/25/2024 3:23 PM [employer] Pulse 77 12/25/2024 3:23 PM [employer] Temperature 36.6 C (97.9 F) 12/25/2024 7:30 AM [employer] Respiratory Rate 18 12/25/2024 3:23 PM [employer] Oxygen Saturation 92% 12/25/2024 2:03 PM [employer] Inhaled Oxygen Concentration - - Weight 55.9 kg (123 lb 3.8 oz) 12/25/2024 7:30 A M [employer] Height 162.6 cm (5' 4 ) 12/25/2024 7:30 AM [employer] Body Mass Index 21.15 12/25/2024 7:30 AM [employer] Plan of Treatment Scheduled Procedures Name Priority Associated Diagnoses Date/Ti me TRANSPLANT KIDNEY ESRD (end stage renal disease) (HCC) Medical Devices Implanted Type Area Truck Body Repairer Device Identifier Shelf Expiration Date Model / Serial / Lot Angio-Seal Evolution 6fr Vascular Closure [id number] - [id number] - [id number] Implanted:Qty: 1 on 03/09/2022 by Luca Medrano MD at [facility] Collagen Right: Femoral Ter[employer]o [employer] Pam 09/19/2022 [id number] / [id number] / [id number] Ter[employer] Pam Angio-Seal Vip 6fr Closere Device 083945 - [id number] - [id number] Implanted:Qty: 1 on 07/24/2022 by Luca Medrano MD at [facility] Collagen [employer] Pam 03/20/2023 [id number] / [id number] / [id number] Ter[employer] Pam Angio-Seal Vip 6fr Closere Device 257148 - [id number] - [id number] Implanted:Qty: 1 on 05/21/2024 at [facility] Collagen Right: Common Femoral Artery [employer] Pam 01/09/2025 [id number] / [id number] / [id number] Ter[employer]o Medical Pam Angio-Seal Vip [place]-Plus 8fr .038in 70cm Hemostatic Latex Free 842097 - [id number] - [id number] Implanted:Qty: 1 on 05/21/2024 by Felipe Gerber MD at [facility] Collagen Right: Common Femoral Artery [employer] Pam 01/06/2025 [id number] / [id number] / [id number] Medtronic Cardiac Rhythm Mgmt 5076-52 Capsurefix Novus 6.2fr 2mm 52cm Bipolar Screw In Implantable Latex Free - [id number] - [id number] Implanted:Qty: 1 on 05/15/[address] Lane Ramos MD PhD at [facility] Lead Medtronic Inc 03/11/2021 5076-52 / [id number] / Medtronic Cardiac Rhythm Mgmt 5076-45 Capsurefix Novus 6.2fr 2mm 45cm Bipolar Screw In Implantable - [id number] - [id number] Implanted:Qty: 1 on 05/15/[address] Ramos MD PhD at [facility] Lead Medtronic Inc 03/30/2021 5076-45 / [id number] / Transmex [employer] 6021-74-9143-01 Linear 7.5fr 6in Insertion Kit Business Lawyer Introducer Sheath - [id number] Implanted:Qty: 1 on 02/10/2019 by Luca Medrano MD at [facility] Other - see comments Transmex [employer] International 84-00 0-0 1 / / Description:IABP Medtronic Inc [id number] Delta Curl Cath Beta-Cap Holden 15fr 57cm 2 Cuff Clamp Adapter - S0 - [id number] Implanted:Qty: 1 on 11/21/2021 by Carlos Kamara MD at [facility] Other - see comments N/A: Abdomen Medtronic Inc 11/30/2022 8811-31 3015 / 0 / [id number] Medtronic Cardiac Rhythm Mgmt [id number] [place] Wirelessly Pacemaker Cardiac - [id number] - [id number] Implanted:Qty: 1 on 05/15/[address] Ramos MD PhD at [facility] Pacemaker Medtronic Inc [id number] 09/17/2020 [id number] / [id number] / Jamil Lifesciences Valve Aortic Trnscath Brown 3 Ultra Resilia 20mm [id number] - [id number] - [id number] Implanted:Qty: 1 on 05/21/2024 by Felipe Gerber MD at [facility] Prosthetic Valve N/A: Aortic Valve Jamil [employer]iences 02/27/2027 [id number] [id number] / [id number] / Medtronic Inc Resolute [place] 4mm 2.1-2.7fr 12mm 140cm Rapid Exchange Radiopaque [id number] - [id number] - [id number] Implanted:Qty: 1 on 03/09/2022 by Luca Medrano MD at [facility] Stent Left: Coronary Medtronic Inc 12/06/2022 [id number] [id number] / [id number] / [id number] Description:LAD Biotronik Inc Stent Coronary De Rx Cocr Ors Msn 4.0x15mm [id number] - [id number] - [id number] Implanted:Qty: 1 on 07/24/2022 by Luca Medrano MD at [facility] Stent [employer]otronik Inc 09/05/2023 848184 / [id number] / [id number] Medtronic Card Vasc Surgery 4.0 X 15mm Clive [place] Rx Coronary Stent [id number] - [id number] - [id number] Implanted:Qty: 1 on 11/19/2024 by Luca Medrano MD at [facility] Stent N/A: Saphenous Vein Graft Medtronic Card Vasc Surgery 05/05/2027 [id number] / [id number] / [id number] Medtronic Card Vasc Surgery 2.50 X 12mm Clive [place] Rx Coronary Stent [id number] - [id number] - [id number] Implanted:Qty: 1 on 12/25/2024 by Luca Medrano MD at [facility] Stent Medtronic Card Vasc Surgery 06/03/2027 [id number] / [id number] / [id number] Painter Vascular System Closure Repair Femoral Artery Suture Mediated Perclose Prostyle 67279-72 - [id number] - [id number] Implanted:Qty: 1 on 05/21/2024 by Felipe Gerber MD at [facility] Vascular Closure Device Left: Common Femoral Artery [facility]ter [facility]ascular 02/17/2026 22110-4 3 / [id number] / [id number] Ter[employer] Pam Angio-Seal Vip 6fr Closere Device 475041 - [id number] - [id number] Implanted:Qty: 1 on 11/19/2024 by Luca Medrano MD at [facility] Vascular Closure Device N/A: Saphenous Vein Graft [employer] Pam 04/29/2025 997109 / [id number] / [id number] Terumo Medical Pam Angio-Seal Vip 6fr Closere Device 684376 - [id number] - [id number] Implanted:Qty: 1 on 12/25/2024 by Sanket Quiroz MD at [facility] Vascular Closure Device Right: Common Femoral Artery [employer] Pam 06/30/2025 324508 / [id number] / [id number] Description:RFA [employer] Medical Pam Angio-Seal Vip [place]-Plus 8fr .038in 70cm Hemostatic Latex Free 431606 - [id number] - [id number] Implanted:Qty: 1 on 12/25/2024 by Sanket Quiroz MD at [facility] Vascular Closure Device Right: Femoral Vein [employer] Pam 07/21/2025 [id number] / [id number] / [id number] Description:RFV Sotelo Unsocial Pam [id number] Supple Ronna-Guard [place] Processing 4x4cm Patch Cardiovascular - [id number] - [id number] Implanted:Qty: 1 on 02/11/2019 by Christopher Holman MD at [facility] N/A: Chest [employer] Pam 06/03/2023 [id number] / [id number] 04-0010 / [id number] Jamil Lifesciences [id number] Certitude Brown 3 Atrion 18fr Transcatheter Introducer Crimper - [id number] - [id number] Implanted:Qty: 1 on 02/11/2019 by Christopher Holman MD at [facility] N/A: Heart Jamil [employer]iences [id number] / [id number] / Medtronic Inc [id number] Delta Curl Cath Beta-Cap Holden 15fr 57cm 2 Cuff Clamp Adapter - [id number] Implanted:Qty: 1 on 12/27/2021 by Margarita Montoya MD at [facility] N/A: Abdomen Medtronic Inc 10/14/2023 8811-31 3015 / / Procedures Procedure Name Priority Date/Time Associated Diagnosis Comments HLA ANTIBODY SCREEN BY PRA OR SAB PER SCHEDULE (CLASS I AND CLASS II) Routine 01/04/2025 10:00 AM CDT ESRD (end stage renal disease) (HCC) POC BLOOD GAS AND CHEMISTRIES, VENOUS Routine 12/25/2024 2:21 PM [employer] EGFR Routine 12/25/2024 1:19 PM [employer] CRITICAL RESULT CALLBACK CHEMISTRY Routine 12/25/2024 1:19 PM [employer] [facility] [employer] DIFFERENTIAL AUTO Routine 12/25/2024 1:1 9 PM [employer] CBC WITH AUTO DIFFERENTIAL Routine 12/25/2024 1:19 PM [employer] [facility] [employer] BASIC METABOLIC PANEL Routine 12/25/2024 1:19 PM [employer] KARINA MAJOR CORONARY Routine 12/25/2024 10 :05 AM [employer] Chest pain, unspecified type POCT ACTIVATED CLOTTING TIME, LOW RANGE Routine 12/25/2024 10:05 AM [employer] POCT ACTIVATED CLOTTING TIME, LOW RANGE Routine 12/25/2024 9:24 AM [employer] [facility] [employer] POCT ACTIVATED CLOTTING TIME, LOW RANGE Routine 12/25/2024 8:58 AM [employer] TYPE AND SCREEN Timed 12/25/2024 8:13 AM [employer] POC BLOOD GAS AND CHEMISTRIES, ARTERIAL Routine 12/25/2024 8:12 AM [employer] POC BLOOD GAS AND CHEMISTRIES, ARTERIAL Routine 12/25/2024 8:08 AM [employer] ECG 12-LEAD Routine 12/25/2024 6:56 AM [employer] SCAN - LABS 12/24/2024 SCAN - LABS 12/22/2024 CBC WITH AUTO DIFFERENTIAL Routine 12/21/2024 12:48 PM [employer] [facility] [employer] Chest pain, unspecified type BASIC METABOLIC PANEL Routine 12/21/2024 12:48 PM [employer] Chest pain, unspecified type HLA ANTIBODY SCREEN - SAB (CLASS I AND CLASS II) Routine 11/27/2024 10:00 AM [employer] ESRD (end stage renal disease) (HCC) HLA ANTIBODY SCREEN BY PRA OR SAB PER SCHEDULE (CLASS I AND CLASS II) Routine 11/27/2024 10:00 AM [employer] ESRD (end stage renal disease) (HCC) EGFR Routine 11/19/2024 6:00 PM [employer] DIFFERENTIAL AUTO Routine 11/19/2024 6:0 0 PM [employer] CBC WITH AUTO DIFFERENTIAL Routine 11/19/2024 6:00 PM [employer] BASIC METABOLIC PANEL Routine 11/19/2024 6:00 PM [employer] POCT ACTIVATED CLOTTING TIME, LOW RANGE Routine 11/19/2024 4:42 PM [employer] POCT ACTIVATED CLOTTING TIME, LOW RANGE Routine 11/19/2024 3:23 PM [employer] LEFT HEART CATHETERIZATION WITH CORONARY ANGIOGRAPHY AND WITH AND WITHOUT LEFT VENTRICULOGRAM Routine 11/19/2024 2:50 PM [employer] Chest pain, unspecified type POCT ACTIVATED CLOTTING TIME, LOW RANGE Routine 11/19/2024 2:49 PM [employer] POCT ACTIVATED CLOTTING TIME, LOW RANGE Routine 11/19/2024 2:30 PM [employer] POCT ACTIVATED CLOTTING TIME, LOW RANGE Routine 11/19/2024 2:01 PM [employer] TYPE AND SCREEN Timed 11/19/2024 2:01 PM [employer] POCT ACTIVATED CLOTTING TIME, LOW RANGE Routine 11/19/2024 1:53 PM [employer] POCT ACTIVATED CLOTTING TIME, LOW RANGE Routine 11/19/2024 1:49 PM [employer] POCT OXYHEMOGLOBIN - DEVICE Routine 11/19/2024 1:27 PM [employer] POCT OXYHEMOGLOBIN - DEVICE Routine 11/19/2024 1:26 PM [employer] POCT OXYHEMOGLOBIN - DEVICE Routine 11/19/2024 1:26 PM [employer] POC BLOOD GAS AND CHEMISTRIES, ARTERIAL Routine 11/19/2024 11:45 AM [employer] ECG 12-LEAD Routine 11/19/2024 11:16 AM [employer] DEVICE CHECK - IN OFFICE Routine 11/18/2024 11:20 AM [employer] Fitting or adjustment of cardiac pacemaker SSS (sick sinus syndrome) (HCC) SCAN - LABS 11/17/2024 DEVICE CHECK - REMOTE Routine 11/16/2024 11:06 PM [employer] CBC WITH AUTO DIFFERENTIAL Routine 11/16/2024 1:57 PM [employer] S/P TAVR (transcatheter aortic valve replacement) Chest pain, unspecified type BASIC METABOLIC PANEL Routine 11/16/2024 1:57 PM [employer] S/P TAVR (transcatheter aortic valve replacement) Chest pain, unspecified type TRANSTHORACIC ECHO (TTE) COMPLETE W DOPPLER/CF W CONTRAST Routine 11/10/2024 4:05 PM [employer] Acute diastolic heart failure (HCC) HLA ANTIBODY SCREEN BY PRA OR SAB PER SCHEDULE (CLASS I AND CLASS II) Routine 11/05/2024 10:00 AM [employer] ESRD (end stage renal disease) (HCC) HEPATITIS C ANTIBODY Routine 03/06/2023 10:19 AM CDT ESRD (end stage renal disease) (HCC) from Last 3 Months or Most Recently Relevant to Health Maintenance Results * HLA Antibody Screen by PRA or SAB per Schedule (Class I and Class II) (01/04/2025 10:00 AM CDT) Blood 01/04/2025 10:0 0 AM CDT Narrative [facility] - [employer] Sample received in lab and stored. No testing performed at this time. us Salina Hector MD LAB BLOOD ORDERABLES Final Resul t [facility] * (ABNORMAL) POC Blood Gas and Chemistries, Venous - (12/25/2024 2:21 PM [employer]) pH, [place] POC 7.29(L) 7.32 - 7.43 pCO2, [place] POC 47 40 - 50 mmHg [facility] pO2, [place] POC 29 mmHg [facility] Na, POC 131(L) 135 - 145 mmol/L [facility] K POC 5.3(H) 3.3 - 4.9 mmol/L [facility] Comment: Interpretive Data Not all point of care methods assess for hemolysis. Confirm with instrument and retest K+ if not consistent with clinical signs and symptoms. Current Interpretive Data was last revised on 2024. Cl, POC 101 97 - 110 mmol/L [facility] Ionized Ca, POC 3.10(C) 4.50 - 5.10 mg/dL [facility] Glucose, POC 137 70 - 199 mg/dL [facility] Lactate, POC 1.1 0.7 - 2.0 mmol/L [facility] O2 Sat, [place] POC (Nevin) 38 % [facility] Base excess, POC -4.0 mmol/L [facility] HCO3, [place] POC 23 20 - 30 mmol/L [facility] Hct, POC 33.0(L) 36.3 - 45.3 % [facility] Total Hb, POC 11.1(L) 11.9 - 15.5 g/dL [facility] Blood 12/25/2024 2:21 PM [employer] 12/25/2024 2:21 PM [employer] Luca Medrano MD LAB POCT ORDERABLES - DEVICE Final Result [facility] [place] [address] * (ABNORMAL) eGFR (12/25/2024 1:19 PM [employer]) [facility] eGFR 3(L) >=60 mL/min/1. 73 m2 Comment: [...] interpretive data was last reviewed 2021. Blood 12/25/2024 1:19 PM [employer] 12/25/2024 1:30 PM [employer] us Luca Medrano MD LAB BLOOD ORDERABLES Final R esult [facility] [place] [address] * (ABNORMAL) Differential, auto (12/25/2024 1:19 PM [employer]) [facility] Neutrophil abs 5.1 1.5 - 6.5 K/cumm Imm gran abs 0.0 0.0 - 0.1 K/cumm [facility] Lymphocyte abs 0.7(L) 0.8 - 3.3 K/cumm [facility] Monocyte abs 0.4 0.2 - 0.8 K/cumm [facility] Eosinophil abs 0.1 0.0 - 0.5 K/cumm [facility] Basophil abs 0.0 0.0 - 0.1 K/cumm [facility] Neutrophil pct 80.1 % [facility] Comment: Interpretive Data Percent cell count reference ranges are not reported, since discordance with absolute values may lead to misinterpretation of CBC data. Current Interpretive Data was last revised on 2018. Imm gran pct 0.5 % [facility] Comment: Interpretive Data Percent cell count reference ranges are not reported, since discordance with absolute values may lead to misinterpretation of CBC data. Current Interpretive Data was last revised on 2018. Lymphocyte pct 11.3 % [facility] Comment: Interpretive Data Percent cell count reference ranges are not reported, since discordance with absolute values may lead to misinterpretation of CBC data. Current Interpretive Data was last revised on 2018. Monocyte pct 6.0 % [facility] Comment: Interpretive Data Percent cell count reference ranges are not reported, since discordance with absolute values may lead to misinterpretation of CBC data. Current Interpretive Data was last revised on 2018. Eosinophil pct 1.6 % [facility] Comment: Interpretive Data Percent cell count reference ranges are not reported, since discordance with absolute values may lead to misinterpretation of CBC data. Current Interpretive Data was last revised on 2018. Basophil pct 0.5 % [facility] Comment: Interpretive Data Percent cell count reference ranges are not reported, since discordance with absolute values may lead to misinterpretation of CBC data. Current Interpretive Data was last revised on 2018. Blood 12/25/2024 1:19 PM [employer] 12/25/2024 1:30 PM [employer] us Luca Medrano MD LAB BLOOD ORDERABLES Final R esult [facility] Department [place] [address] * Critical Result Callback Chemistry (12/25/2024 1:19 PM [employer]) Date Notified [id number] Time Notified 1409 [facility] TestName Potassium Plas Calcium [facility] Called/Read Back Grisel Frank [facility] Credentials RN [facility] Called By NELSON [facility] Blood 12/25/2024 1:19 PM [employer] 12/25/2024 1:30 PM [employer] us Luca Medrano MD LAB BLOOD ORDERABLES Final R esult Performing Organization Address City/[facility]/ZIP Co de Phone Number [facility] Department [place] [address] * (ABNORMAL) CBC with auto differential (12/25/2024 1:19 PM [employer]) Pathologist [facility] WBC 6.3 3.8 - 9.9 K/cumm Hgb 11.2(L) 11.9 - 15.5 g/dL [facility] Hct 36.0 35.6 - 45.5 % [facility] Plt 106(L) 150 - 400 K/cumm [facility] MPV 10.1 9.1 - 12.3 fL [facility] RBC 3.99 3.90 - 5.20 M/cumm [facility] MCV 90.2 81.3 - 96.4 fL [facility] MCH 28.1 27.1 - 33.3 pg [facility] MCHC 31.1(L) 32.3 - 35.7 g/dL [facility] RDW CV 15.4(H) 11.1 - 14.9 % [facility] RDW SD 50.8(H) 35.7 - 48.1 fL [facility] NRBC abs 0.00 0.00 - 0.01 K/cumm [facility] Blood 12/25/2024 1:19 PM [employer] 12/25/2024 1:30 PM [employer] us Luca Medrano MD LAB BLOOD ORDERABLES Final R esult [facility] [place] [address] * (ABNORMAL) Basic metabolic panel (12/25/2024 1:19 PM [employer]) Sodium 135 135 - 145 mmol/L Potassium, pl 6.3(C) 3.3 - 4.9 mmol/L [facility] Chloride 95(L) 97 - 110 mmol/L [facility] CO2 23 22 - 32 mmol/L [facility] Anion gap 17(H) 2 - 15 mmol/L [facility] BUN 59(H) 6 - 25 mg/dL [facility] Creatinine 15.37(H) 0.60 - 1.10 mg/dL [facility] Glucose 142 70 - 199 mg/dL [facility] Comment: Interpretive Data Fasting glucose [...] interpretive data was last revised 2022. Calcium 5.7(C) 8.5 - 10.3 mg/dL [facility] Blood 12/25/2024 1:19 PM [employer] 12/25/2024 1:30 PM [employer] Luca Medrano MD LAB BLOOD ORDERABLES Final R esult [facility] Department [place] [address] * KARINA MAJOR CORONARY (12/25/2024 10:05 AM [employer]) Anatomical Region Laterality Modality X-Ray Angiograph y Impressions 12/25/2024 3:40 PM [employer] Severely calcified left main stenosis status post shockwave lithotripsy with drug-eluting stent placement in excellent result Right common femoral artery Angio-Seal THERAPEUTIC RECOMMENDATIONS: Continue aggressive medical therapy and risk factor modification Bedrest 2 hours post Angio-Seal deployment Start nexletol for statin intolerance and coronary artery disease Continue aspirin and Plavix a minimum of 3 months time Follow-up in 4-6 weeks I was present during the entire procedure and personally dictated or confirmed the above report. Luca Medrano MD Narrative 12/25/2024 3:40 PM [employer] Table formatting from the original result was not included. Procedure: CORONARY ANGIOGRAM / PERCUTANEOUS CORONARY INTERVENTION Patient: Estuardo Copeland is a 54 y.o. female : 1970 MR number: [id number] Date of Service: 12/25/2024 Fuel Conversion Technician: Luca Medrano MD Fellow: Sanket Quiroz MD Referring physician: Oren INDICATION: CHF/Dyspnea NYHA Class 3 PATIENT CLINICAL PROFILE: Estuardo Copeland is a 54 y.o. female with a history of For aortic valve replacement, coronary artery disease status post bypass and recent PCI to the vein graft to the LAD who presents for staged intervention to the left main circumflex. Patient continued to have symptoms of shortness of breath and fatigue and now presents for intervention. PROCEDURE: The risks, benefits and alternatives of the procedures and moderate sedation were explained to the patient and informed consent was obtained. The patient was brought to the lab animal technician and placed on the table Bilateral groins were prepped and draped in the usual sterile fashion. The right femoral artery site was infiltrated with 2% lidocaine. I provided direct face to face monitoring of intravenous conscious sedation which was administered using Fentanyl and Versed by an independently certified nurse for a total of 120 minutes. The vessel was accessed using a Micropuncture kit and the modified Seldinger technique with a Micro needle, a wire was threaded into the vessel, and a 7Fr Sheath was advanced over the wire into the vessel. Percutaneous coronary intervention performed on the Proximal Circumflex. This was an ACC/AHA Type C. Initial Lesion Length 12mm and final lesion Length 12mm. Initial KAROLINA Flow 3 Final KAROLINA Flow 3. Equipment used: 7 JL 3.0, AQUA PURE IVUS Catheter, whisper wire, 2 0 x 12 emerge balloon, 225 x 12 NC emerge balloon, 2 5 x 12 NC emerge balloon, 2 5 shockwave lithotripsy balloon, 6 Spanish GuideLiner Coast, 2 5 x 12 mm NC emerge balloon, a 2 5 x 12 mm resolute drug-eluting stent, 275 x 12 mm NC emerge balloon, 3 0 x 8 mm NC emerge balloon. At the end of the procedure, arteriotomy was successfully closed and hemostasis achieved by a Angio-Seal Patient was transferred to the holding area in stable condition. There were no apparent complications. RESULTS: Patient was brought to the cardiac catheterization suite and prepped and draped in a sterile fashion. Access was obtained right common femoral artery and a 7 Spanish sheath inserted without difficulty. Next we took a 7 Spanish JL 3 guiding catheter up and sat more reasonably well into the ostium left main the 3.5 guide. Heparin was administered to obtain ACT of greater than 300 was maintained throughout the case. With moderate difficulty were able to wire with a whisper wire. Next we attempted to deliver IVUS which would not pass. Next we delivered a 2 0 balloon with great difficulty and pre-dilated up to 12 atmospheres with rupture of this balloon. Next we took a 225 x 12 NC emerge balloon with great difficulty down and again pre-dilated this area up to 18 atmospheres. We then attempted to deliver IVUS again but was unsuccessful. We then placed a 6 Spanish GuideLiner down from with an additional 225 balloon position at this closely into the lesion as possible. We then with extreme difficulty delivered a shockwave lithotripsy balloon into the proximal segment. We performed 80 treatments of shockwave lithotripsy. During this time her blood pressure did drop somewhat. Next we took a 2 5 x 12 NC emerge balloon and post dilated up to 20 atmospheres which resulted in excellent luminal gain. We again attempted IVUS but were unsuccessful we marked the ostium of the vessel carefully with IVUS. Next we deal attempt to deliver stent but unfortunately would not pass as it was too long. We then took an additional 2 5 balloon down physician are GuideLiner Coast in the appropriate location. We then with great difficulty delivered a 2 5 x 12 resolute drug-eluting stent down. We carefully positioned at the ostium deployed to 14 atmospheres. We then took a 275 x 12 NC emerge balloon and post dilated this up to 20 atmospheres. We were then able to get our IVUS catheter slightly into the lesion which showed still to be somewhat under expanded. We then took a 3 0 x 8 mm balloon and post dilated up to 14 atmospheres. Final angiographic views showed excellent result with KAROLINA 3 flow down all side branches no evidence of dissection or perforation. We then turned our attention the right common femoral artery whereby an Angio-Seal was placed without difficulty. COMPLICATIONS: None DIAGNOSTIC us Luca Medrano MD CV CARDIAC CATH PROCEDURES F inal Result * (ABNORMAL) POCT Activated clotting time, low range (12/25/2024 10:05 AM [employer]) ACT 298(H) 123 - 168 sec POC Performer [id number] [facility] POC Device Number [id number] [facility] Blood 12/25/2024 10:0 5 AM [employer] 12/25/2024 10:05 AM [employer] us Luca Medrano MD LAB POCT ORDERABLES - DEVICE Final Result Performing Organization Address [facility] Co de Phone Number [facility] [place] [address] * (ABNORMAL) POCT Activated clotting time, low range (12/25/2024 9:24 AM [employer]) ACT 329(H) 123 - 168 sec POC Performer [id number] [facility] POC Device Number [id number] [facility] Blood 12/25/2024 9:24 AM [employer] 12/25/2024 9:24 AM [employer] us Luca Medrano MD LAB POCT ORDERABLES - DEVICE Final Result Performing Organization Address [facility] Co de Phone Number [facility] [place] [address] * (ABNORMAL) POCT Activated clotting time, low range (12/25/2024 8:58 AM [employer]) ACT >400(H) 123 - 168 sec POC Performer [id number] [facility] POC Device Number [id number] [facility] Blood 12/25/2024 8:58 AM [employer] 12/25/2024 8:58 AM [employer] Luca Medrano MD LAB POCT ORDERABLES - DEVICE Final Result Performing Organization Address [facility] Co de Phone Number [facility] [place] [address] * Type and screen (12/25/2024 8:13 AM [employer]) Pathologist [facility] ABO Rh B Positive Jorge A, indirect Negative [facility] Blood 12/25/2024 8:13 AM [employer] 12/25/2024 8:20 AM [employer] Narrative [facility] - 12/25/2024 9:11 AM [employer] Has the patient had Daratumumab or Isatuximab in the past 6 months?->Unknown Luca Medrano MD LAB BLOOD BANK TEST ORDERABL ES Final Result Performing Organization Address [facility] de Phone Number [facility] [place] [address] * (ABNORMAL) POC Blood Gas and Chemistries, Arterial - (12/25/2024 8:12 AM [employer]) Pathologist [facility] pH, Art POC 7.39 7.35 - 7.45 pCO2, Art POC 32(L) 35 - 45 mmHg [facility] pO2, Art POC 84 83 - 108 mmHg [facility] Na, POC 135 135 - 145 mmol/L [facility] K POC 5.5(H) 3.3 - 4.9 mmol/L [facility] Comment: Interpretive Data Not all point of care methods assess for hemolysis. Confirm with instrument and retest K+ if not consistent with clinical signs and symptoms. Current Interpretive Data was last revised on 2024. Cl, POC 101 97 - 110 mmol/L [facility] Ionized Ca, POC 2.96(C) 4.50 - 5.10 mg/dL [facility] Glucose, POC 88 70 - 199 mg/dL [facility] Lactate, POC 1.1 0.7 - 2.0 mmol/L [facility] SO2 (nevin) arterial 96(H) 90 - 95 % [facility] Base excess, POC -4.7 mmol/L [facility] HCO3, Art POC 19(L) 20 - 30 mmol/L [facility] Hct, POC 36.0(L) 36.3 - 45.3 % [facility] Total Hb, POC 11.9 11.9 - 15.5 g/dL [facility] Blood 12/25/2024 8:12 AM [employer] [facility] [facility] [employer] 12/25/2024 8:12 AM [employer] Luca Medrano MD LAB POCT ORDERABLES - DEVICE Final Result Performing Organization Address [facility] Co de Phone Number [facility] [place] [address] * (ABNORMAL) POC Blood Gas and Chemistries, Arterial - (12/25/2024 8:08 AM [employer]) [facility] K POC 5.2(H) 3.3 - 4.9 mmol/L Comment: Interpretive Data Not all point of care methods assess for hemolysis. Confirm with instrument and retest K+ if not consistent with clinical signs and symptoms. Current Interpretive Data was last revised on 2024. Blood 12/25/2024 8:08 AM [employer] 12/25/2024 8:08 AM [employer] Luca Medrano MD LAB POCT ORDERABLES - DEVICE Final Result Performing Organization Address [facility] Co de Phone Number [facility] [place] [address] * ECG 12 lead (12/25/2024 6:56 AM [employer]) Pathologist [facility] Ventricular Rate EKG/Min 82 BPM [facility] Atrial Rate 82 BPM [facility] QRS-Interval (MSEC) 86 ms [facility] QT-Interval (MSEC) 410 ms [facility] QTc 479 ms [facility] R [place] -10 degrees [facility] T [place] 155 degrees [facility] Diagnosis atrial-paced complexes Premature atrial complexes in a pattern of bigeminy Minimal voltage criteria for LVH, may be normal variant ( Oliverio product ) Septal infarct , age undetermined T wave abnormality, consider lateral ischemia Abnormal ECG When compared with ECG of 19-NOV-2024 11:16, no significant change Confirmed by HARJINDER HANDY M.D ([id number]) on 01/06/2025 3:41:43 PM [facility] 12/25/2024 6:56 AM [employer] [facility] [facility] [employer] 01/06/2025 3:41 PM CDT us Luca Medrano MD ECG ORDERABLES Final Result [facility] * SCAN - LABS (12/24/2024) us Provider Scanning Final Result * SCAN - LABS (12/22/2024) us Provider Scanning Final Result * (ABNORMAL) CBC with auto differential (12/21/2024 12:48 PM [employer] [facility] [employer]) WBC 7.0 3.4 - 10.8 x10E3/uL [facility] - 01 RBC 4.72 3.77 - 5.28 x10E6/uL [facility] - 01 Hgb 13.1 11.1 - 15.9 g/dL [facility] - 01 Hct 42.1 34.0 - 46.6 % [facility] - 01 MCV 89 79 - 97 fL [facility] - 01 MCH 27.8 26.6 - 33.0 pg [facility] - 01 MCHC 31.1(L) 31.5 - 35.7 g/dL [facility] - 01 Rdw 14.4 11.7 - 15.4 % [facility] - 01 Platelets 156 150 - 450 x10E3/uL [facility] - 01 Neutrophils pct 83 Not Estab. % [facility] - 01 Lymphs pct 10 Not Estab. % [facility] - 01 Monocytes pct 4 Not Estab. % [facility] - 01 Eosinophils pct 2 Not Estab. % [facility] - 01 Basophil pct 1 Not Estab. % [facility] - 01 Neutrophil abs 5.8 1.4 - 7.0 x10E3/uL [facility] - 01 Lymphs (Absolute) 0.7 0.7 - 3.1 x10E3/uL [facility] - 01 Monocyte abs 0.3 0.1 - 0.9 x10E3/uL [facility] - 01 Eosinophils, abs 0.1 0.0 - 0.4 x10E3/uL [facility] - 01 Basophils, abs 0.1 0.0 - 0.2 x10E3/uL [facility] - 01 Immature Granulocytes 0 Not Estab. % [facility] - 01 Immature Grans (Abs) 0.0 0.0 - 0.1 x10E3/uL [facility] - 01 Blood 12/21/2024 12:4 8 PM [employer] 12/21/2024 Narrative [facility] - 12/22/2024 7:09 AM [employer] Performed at: [address] [id number] Electronics Engineering Manager: Marco Antonio Paiz PhD, Phone: [phone] Luca Medrano MD LAB BLOOD ORDERABLES Final R esult [facility] 01 * (ABNORMAL) Basic metabolic panel (12/21/2024 12:48 PM [employer]) Pathologist [facility] Glucose 85 70 - 99 mg/dL [facility] - 01 BUN 69(H) 6 - 24 mg/dL [facility] - 01 Creatinine, Serum 16.35(HH) 0.57 - 1.00 mg/dL [facility] - 01 Comment:Verified by repeat analysis eGFR 2(L) >59 mL/min/1.7 3 [facility] - 01 BUN/creat ratio 4(L) 9 - 23 [facility] - 01 Sodium 141 134 - 144 mmol/L [facility] - 01 Potassium, sr 5.7(H) 3.5 - 5.2 mmol/L [facility] - 01 Chloride 95(L) 96 - 106 mmol/L [facility] - 01 CO2 21 20 - 29 mmol/L [facility] - 01 Calcium 6.8(<) 8.7 - 10.2 mg/dL [facility] - 01 Comment:Verified by repeat analysis Blood 12/21/2024 12:4 8 PM [employer] 12/21/2024 Narrative [facility] - 12/22/2024 2:10 PM [employer] Performed at: - [address] [id number] Electronics Engineering Manager: Marco Antonio Paiz PhD, Phone: [phone] Specimen Comment: Called/faxed to DIANA OMER DACOSTA on 12/22/2024 at 13:44 ET Specimen Comment: for tests Creatinine; Calcium us Luca Medrano MD LAB BLOOD ORDERABLES Final R esult Performing Organization Address City/[facility]/ZIP Co de Phone Number [facility] - 01 * HLA Antibody Screen by PRA or SAB per Schedule (Class I and Class II) (11/27/2024 10:00 AM [employer]) Blood 11/27/2024 10:0 0 AM [employer] Narrative [facility] - [employer] Sample received in lab. Single Antigen Antibody Screen ordered. us Salina Hector MD LAB BLOOD ORDERABLES Final Resul t Performing Organization Address [facility] Co de Phone Number [facility] * HLA Antibody Screen - SAB (Class I and Class II) (11/27/2024 10:00 AM [employer]) Class I Treatment EDTA [facility] Class I Dilution 1:1 [facility] Class I Tested Date 12/03/2024 [facility] Class I Result Positive [facility] Class I CPRA 21 [facility] Class I Increased Risk Cw5, Cw9 [facility] Class I Moderate Risk B82 [facility] Class I Low Risk A11; B54, B81 [facility] Class II Treatment EDTA [facility] Class II Dilution 1:1 [facility] Class II Tested Date 12/03/2024 [facility] Class II Result Positive [facility] Class II CPRA 17 [facility] Class II Moderate Risk DPB1*01:01 [facility] 11/27/2024 10:0 0 AM [employer] 12/03/2024 1:32 PM [employer] Narrative [facility] - 12/03/2024 1:32 PM [employer] Single-antigen HLA antibody screen is performed on serum samples using a method developed and validated by the [facility] HLA laboratory based on an FDA-approved IVD kit (LABScreen Single-Antigen, [employer], [place], [place]). All patient serum samples are pretreated with EDTA before the screen to prevent complement interference. Additional serum treatments, such as adsorption and DTT treatment, may be performed as indicated. Interpretive comments: Low risk: MFI 9518-0013. Moderate risk: MFI 4480-3003. Increased risk: MFI >/= 5000. The presence [...] to avoid. Testing performed at the [facility], [address] [place] [address], 5th floor, [place], [address]. [place] # [id number]. Rosa Millan, Ph.D., Overhauler, HLA Laboratory Wilmer Prescott M.D., Ph.D., Field Nurse Case Manager, HLA Laboratory Alma Payton, Ph.D., CLIA Field Nurse Case Manager, [facility] Clinical Laboratories Current methodology and interpretive comments last revised on 11/15/2022. us Salina Hector MD LAB BLOOD ORDERABLES Final Resul t [facility] * (ABNORMAL) eGFR (11/19/2024 6:00 PM [employer]) eGFR 3(L) >=60 mL/min/1. 73 m2 Comment: [...] last reviewed 2021. Blood 11/19/2024 6:00 PM [employer] 11/19/2024 6:10 PM [employer] us Luca Medrano MD LAB BLOOD ORDERABLES Final R esult [facility] Department [place] [address] * (ABNORMAL) Differential, auto (11/19/2024 6:00 PM [employer]) Neutrophil abs 6.5 1.5 - 6.5 K/cumm Imm gran abs 0.0 0.0 - 0.1 K/cumm [facility] Lymphocyte abs 0.5(L) 0.8 - 3.3 K/cumm [facility] Monocyte abs 0.3 0.2 - 0.8 K/cumm [facility] Eosinophil abs 0.1 0.0 - 0.5 K/cumm [facility] Basophil abs 0.0 0.0 - 0.1 K/cumm [facility] Neutrophil pct 87.7 % [facility] Comment: Interpretive Data Percent cell count reference ranges are not reported, since discordance with absolute values may lead to misinterpretation of CBC data. Current Interpretive Data was last revised on 2018. Imm gran pct 0.3 % [facility] Comment: Interpretive Data Percent cell count reference ranges are not reported, since discordance with absolute values may lead to misinterpretation of CBC data. Current Interpretive Data was last revised on 2018. Lymphocyte pct 6.8 % [facility] Comment: Interpretive Data Percent cell count reference ranges are not reported, since discordance with absolute values may lead to misinterpretation of CBC data. Current Interpretive Data was last revised on 2018. Monocyte pct 3.4 % [facility] Comment: Interpretive Data Percent cell count reference ranges are not reported, since discordance with absolute values may lead to misinterpretation of CBC data. Current Interpretive Data was last revised on 2018. Eosinophil pct 1.5 % [facility] Comment: Interpretive Data Percent cell count reference ranges are not reported, since discordance with absolute values may lead to misinterpretation of CBC data. Current Interpretive Data was last revised on 2018. Basophil pct 0.3 % [facility] Comment: Interpretive Data Percent cell count reference ranges are not reported, since discordance with absolute values may lead to misinterpretation of CBC data. Current Interpretive Data was last revised on 2018. Blood 11/19/2024 6:00 PM [employer] 11/19/2024 6:04 PM [employer] us Luca Medrano MD LAB BLOOD ORDERABLES Final R esult [facility] [place] [address] * (ABNORMAL) CBC with auto differential (11/19/2024 6:00 PM [employer]) WBC 7.4 3.8 - 9.9 K/cumm Hgb 11.6(L) 11.9 - 15.5 g/dL [facility] Hct 36.7 35.6 - 45.5 % [facility] Plt 150 150 - 400 K/cumm [facility] MPV 10.6 9.1 - 12.3 fL [facility] RBC 4.22 3.90 - 5.20 M/cumm [facility] MCV 87.0 81.3 - 96.4 fL [facility] MCH 27.5 27.1 - 33.3 pg [facility] MCHC 31.6(L) 32.3 - 35.7 g/dL [facility] RDW CV 14.6 11.1 - 14.9 % [facility] RDW SD 46.1 35.7 - 48.1 fL [facility] NRBC abs 0.00 0.00 - 0.01 K/cumm [facility] Blood 11/19/2024 6:00 PM [employer] 11/19/2024 6:04 PM [employer] us Luca Medrano MD LAB BLOOD ORDERABLES Final R esult [facility] Department [place] [address] * (ABNORMAL) Basic metabolic panel (11/19/2024 6:00 PM [employer]) Sodium 130(L) 135 - 145 mmol/L Potassium, pl 4.3 3.3 - 4.9 mmol/L [facility] Chloride 90(L) 97 - 110 mmol/L [facility] CO2 23 22 - 32 mmol/L [facility] Anion gap 17(H) 2 - 15 mmol/L [facility] BUN 57(H) 6 - 25 mg/dL [facility] Creatinine 13.87(H) 0.60 - 1.10 mg/dL [facility] Glucose 150 70 - 199 mg/dL [facility] Comment: Interpretive Data Fasting glucose [...] Calcium 6.9(L) 8.5 - 10.3 mg/dL [facility] Blood 11/19/2024 6:00 PM [employer] 11/19/2024 6:04 PM [employer] Luca Medrano MD LAB BLOOD ORDERABLES Final R esult Performing Organization Address [facility] Co de Phone Number [facility] [place] [address] * (ABNORMAL) POCT Activated clotting time, low range (11/19/2024 4:42 PM [employer]) ACT 171(H) 123 - 168 sec POC Performer [id number] [facility] POC Device Number [id number] [facility] Blood 11/19/2024 4:42 PM [employer] 11/19/2024 4:42 PM [employer] Luca Medrano MD LAB POCT ORDERABLES - DEVICE Final Result Performing Organization Address City/[facility] Co de Phone Number [facility] Department [place] [address] * (ABNORMAL) POCT Activated clotting time, low range (11/19/2024 3:23 PM [employer]) ACT 266(H) 123 - 168 sec POC Performer [id number] [facility] POC Device Number [id number] [facility] Blood 11/19/2024 3:23 PM [employer] 11/19/2024 3:23 PM [employer] Luca Medrano MD LAB POCT ORDERABLES - DEVICE Final Result [facility] Department [place] [address] * LEFT HEART CATHETERIZATION WITH CORONARY ANGIOGRAPHY AND WITH AND WITHOUT LEFT VENTRICULOGRAM (11/19/2024 2:50 PM [employer]) Anatomical Region Laterality Modality X-Ray Angiograph y Impressions 11/19/2024 4:18 PM [employer] Very severe stenosis of the vein graft [...] attempt intervention again. I would suggest a [place] 1 0 guiding catheter and consideration for shockwave versus atherectomy. I was present during the entire procedure and personally dictated or confirmed the above report. Luca Medrano MD Narrative 11/19/2024 4:18 PM [employer] Procedure: CORONARY ANGIOGRAM / RIGHT HEART CATHETERIZATION/percutaneous coronary intervention Patient: Estuardo Copeland is a 54 y.o. female : 1970 MR number: [id number] Date of Service: 11/19/2024 Fuel Conversion Technician: Luca Medrano MD Fellow: Josesito Pabon MD [...] obtained. The patient was brought to the lab animal technician and placed on the table Bilateral groins [...] coronary artery angiogram performed using a 6 Spanish JR4 catheter Right heart catheterization preformed with TD [place] Percutaneous coronary intervention performed on the Proximal saphenous vein graft to the LAD. This was an ACC/AHA Type C. Initial Lesion Length 12mm and final lesion Length 15mm. Initial KAROLINA Flow 3 with visible thrombus present Final KAROLINA Flow 3. Equipment used: 6 3DRC, AQUA PURE IVUS Catheter, scion blue wire, 0.9 mm laser atherectomy catheter, 2 5 x 15 NC emerge balloon, a 3 0 x 12 mm AngioSculpt balloon, 4 0 by 15 NC emerge balloon, 4 0 x 15 resolute drug-eluting stent, 4 5 x 12 mm NC emerge balloon Attempted intervention on the ostial left main equipment used was a 6 Spanish JL 3.5 guiding catheter, she on black [...] than 300. We took up a 6 Spanish 3D RC that sat reasonably well in [...] or perforation. We then took our 6 Spanish JL 3.5 guiding catheter attempted to intubate [...] right femoral artery and placed a 6 Spanish Angio-Seal. Manual compression was performed on the venous sheath. COMPLICATIONS: None DIAGNOSTIC Luca Medrano MD CV CARDIAC CATH PROCEDURES F inal Result * (ABNORMAL) POCT Activated clotting time, low range (11/19/2024 2:49 PM [employer]) ACT 260(H) 123 - 168 sec POC Performer [id number] [facility] POC Device Number [id number] [facility] Blood 11/19/2024 2:49 PM [employer] 11/19/2024 2:49 PM [employer] Luca Medrano MD LAB POCT ORDERABLES - DEVICE Final Result Performing Organization Address City/[facility]/ZIP Co de Phone Number [facility] [place] [address] * (ABNORMAL) POCT Activated clotting time, low range (11/19/2024 2:30 PM [employer]) ACT 385(H) 123 - 168 sec POC Performer [id number] [facility] POC Device Number [id number] [facility] Blood 11/19/2024 2:30 PM [employer] 11/19/2024 2:30 PM [employer] Luca Medrano MD LAB POCT ORDERABLES - DEVICE Final Result Performing Organization Address City/[facility]/ZIP Co de Phone Number [facility] [place] [address] * (ABNORMAL) POCT Activated clotting time, low range (11/19/2024 2:01 PM [employer]) ACT >400(H) 123 - 168 sec POC Performer [id number] [facility] POC Device Number [id number] [facility] Blood 11/19/2024 2:01 PM [employer] 11/19/2024 2:01 PM [employer] us Luca Medrano MD LAB POCT ORDERABLES - DEVICE Final Result Performing Organization Address [facility] de Phone Number [facility] [place] [address] * Type and screen (11/19/2024 2:01 PM [employer]) ABO Rh B Positive Jorge A, indirect Negative [facility] Blood 11/19/2024 2:01 PM [employer] 11/19/2024 2:14 PM [employer] Narrative [facility] - 11/19/2024 3:08 PM [employer] Has the patient had Daratumumab or Isatuximab in the past 6 months?->Unknown Luca Medrano MD LAB BLOOD BANK TEST ORDERABL ES Final Result Performing Organization Address [facility] de Phone Number [facility] [place] [address] * (ABNORMAL) POCT Activated clotting time, low range (11/19/2024 1:53 PM [employer]) ACT >400(H) 123 - 168 sec POC Performer [id number] [facility] POC Device Number [id number] [facility] Blood 11/19/2024 1:53 PM [employer] 11/19/2024 1:53 PM [employer] Luca Medrano MD LAB POCT ORDERABLES - DEVICE Final Result [facility] [place] [address] * (ABNORMAL) POCT Activated clotting time, low range (11/19/2024 1:49 PM [employer]) ACT 78(L) 123 - 168 sec POC Performer [id number] [facility] POC Device Number [id number] [facility] Blood 11/19/2024 1:49 PM [employer] 11/19/2024 1:49 PM [employer] Luca Medrano MD LAB POCT ORDERABLES - DEVICE Final Result Performing Organization Address [facility] [place] [address] * (ABNORMAL) POCT oxyhemoglobin (11/19/2024 1:27 PM [employer]) [facility] CREDIT REPORTER Oxyhemoglobin 91.6 >=65.0 % CREDIT REPORTER Hemoglobin 11.2(L) 11.9 - 15.5 g/dL [facility] CREDIT REPORTER O2 content 14.3(L) 15.0 - 22.0 Vol % [facility] Anatomic Site aPOC Aorta [facility] Blood 11/19/2024 1:27 PM [employer] 11/19/2024 1:27 PM [employer] us Luca Medrano MD LAB POCT ORDERABLES - DEVICE Final Result Performing Organization Address City/[facility]/ZIP Co de Phone Number [facility] [employer] [place], [place] [id number] * (ABNORMAL) POCT oxyhemoglobin (11/19/2024 1:26 PM [employer]) CREDIT REPORTER Oxyhemoglobin 56.2(L) >=65.0 % CREDIT REPORTER Hemoglobin 11.0(L) 11.9 - 15.5 g/dL [facility] CREDIT REPORTER O2 content 8.6(L) 15.0 - 22.0 Vol % [facility] Anatomic Site aPOC Pulm Artery [facility] Blood 11/19/2024 1:26 PM [employer] 11/19/2024 1:26 PM [employer] Luca Medrano MD LAB POCT ORDERABLES - DEVICE Final Result Performing Organization Address [facility] de Phone Number [facility] [place] [address] * (ABNORMAL) POCT oxyhemoglobin (11/19/2024 1:26 PM [employer]) [facility] CREDIT REPORTER Oxyhemoglobin 56.6(L) >=65.0 % CREDIT REPORTER Hemoglobin 10.9(L) 11.9 - 15.5 g/dL [facility] CREDIT REPORTER O2 content 8.6(L) 15.0 - 22.0 Vol % [facility] Anatomic Site aPOC Pulm Artery [facility] Blood 11/19/2024 1:26 PM [employer] 11/19/2024 1:26 PM [employer] Result [facility] Luca Medrano MD LAB POCT ORDERABLES - DEVICE Final Result Performing Organization Address [facility] de Phone Number [facility] Department [place] [address] * POC Blood Gas and Chemistries, Arterial - (11/19/2024 11:45 AM [employer]) [facility] K POC 3.7 3.3 - 4.9 mmol/L Comment: Interpretive Data Not all point of care methods assess for hemolysis. Confirm with instrument and retest K+ if not consistent with clinical signs and symptoms. Current Interpretive Data was last revised on 2024. Blood 11/19/2024 11:4 5 AM [employer] 11/19/2024 11:45 AM [employer] Luca Medrano MD LAB POCT ORDERABLES - DEVICE Final Result Performing Organization Address [facility] Co de Phone Number [facility] Department [place] [address] * ECG 12 lead (11/19/2024 11:16 AM [employer]) Ventricular Rate EKG/Min 90 BPM [facility] QRS-Interval (MSEC) 84 ms [facility] QT-Interval (MSEC) 404 ms [facility] QTc 494 ms [facility] R [place] 6 degrees [facility] T [place] 144 degrees [facility] Diagnosis Atrial fibrillation Electronic atrial pacemaker Minimal voltage criteria for LVH, may be normal variant ( Oliverio product ) Septal infarct , age undetermined T wave abnormality, consider lateral ischemia Abnormal ECG Confirmed by HARJINDER HANDY M.D ([id number]) on 11/19/2024 3:59:31 PM [facility] 11/19/2024 11:1 6 AM [employer] 11/19/2024 3:59 PM [employer] Luca Medrano MD ECG ORDERABLES Final Result [facility] * DEVICE CHECK - IN OFFICE (11/18/2024 11:20 AM [employer]) Anatomical Region Laterality Modality Other 11/18/2024 2:00 AM [employer] Narrative 12/24/2024 9:17 PM [employer] Interpretation Summary: Battery and Leads (BL) Normal parameters noted on battery and lead(s) Presenting Rhythm (WV) Atrial Sensing-Ventricular Sensing (-VS) Arrhythmic events (AE) Atrial fibrillation and/or flutter with controlled ventricular rate Nonsustained VT event(s) identified Anticoagulation (AC) Patient on anticoagulant therapy --- Plavix Procedure Note Lane Ramos MD PhD - 12/24/2024 Interpretation Summary: Battery and Leads (BL) Normal parameters noted on battery and lead(s) Presenting Rhythm (WV) Atrial Sensing-Ventricular Sensing (-VS) Arrhythmic events (AE) Atrial fibrillation and/or flutter with controlled ventricular rate Nonsustained VT event(s) identified Anticoagulation (AC) Patient on anticoagulant therapy --- Plavix Lane Ramos MD PhD [facility] CARDIAC SERVICES PROCEDURES Final Result * SCAN - LABS (11/17/2024) Provider Scanning Final Result * DEVICE CHECK - REMOTE (11/16/2024 11:06 PM [employer]) Anatomical Region Laterality Modality Other 11/16/2024 11:0 6 PM [employer] Narrative 12/24/2024 9:11 PM [employer] Interpretation Summary: Battery and Leads (BL) Normal parameters noted on battery and lead(s) --- 9.4 yrs remaining longevity (implanted 2018). Lead impedance, sensing, and RA threshold trends stable and appropriate. No RV threshold testing during the monitoring period. No short V-V intervals. Presenting Rhythm (WV) Atrial Sensing-Ventricular Sensing (-VS) --- /VS (SR) 80s with APCs. Premature Atrial Contraction(s) on presenting rhythm Arrhythmic events (AE) Paroxysmal atrial fibrillation and/or flutter --- Since 08/22/24: 62 AT/AF detections, max 21 min, and AT/AF burden 0.3%, with EGMs appearing to show AF/VS with average V rates 120s to 140s. Anticoagulation (AC) Patient is not on anticoagulant therapy Anticoagulation is not clinically indicated --- AF burden 0.3%, max duration 21 min. Transmission Information (TI) Device Summary Report Follow Up (FU) Patient's primary treating physician will be apprised of findings Procedure Note Lane Ramos MD PhD - 12/24/2024 Interpretation Summary: Battery and Leads (BL) Normal parameters noted on battery and lead(s) --- 9.4 yrs remaininglongevity (implanted 2018). Lead impedance, sensing, and RA thresholdtrends stable and appropriate. No RV threshold testing during themonitoring period. No short V-V intervals. Presenting Rhythm (WV) Atrial Sensing-Ventricular Sensing (-VS) --- /VS (SR) 80s with APCs. Premature Atrial Contraction(s) on presenting rhythm Arrhythmic events (AE) Paroxysmal atrial fibrillation and/or flutter --- Since 08/22/24: 62AT/AF detections, max 21 min, and AT/AF burden 0.3%, with EGMs appearingto show AF/VS with average V rates 120s to 140s. Anticoagulation (AC) Patient is not on anticoagulant therapy Anticoagulation is not clinically indicated --- AF burden 0.3%, maxduration 21 min. Transmission Information (TI) Device Summary Report Follow Up (FU) Patient's primary treating physician will be apprised of findings us Lane Ramos MD PhD [facility] C[facility] SERVICES PROCEDURES Final Result * CBC with auto differential (11/16/2024 1:57 PM [employer]) WBC 7.2 3.4 - 10.8 x10E3/uL [facility] [...] [facility] - 01 Blood 11/16/2024 1:57 PM [employer] 11/16/2024 Narrative [facility] - 11/17/2024 8:14 AM [employer] Performed at: [address] [place] [address] [id number] Electronics Engineering Manager: Marco Antonio Paiz PhD, Phone: [phone] us Luca Medrano MD LAB BLOOD ORDERABLES Final R [facility] * (ABNORMAL) Basic metabolic panel (11/16/2024 1:57 PM [employer]) [facility] Glucose 88 70 - 99 mg/dL [...] [facility] - 01 Blood 11/16/2024 1:57 PM [employer] 11/16/2024 Narrative [facility] - 11/17/2024 12:09 PM [employer] Performed at: [address] [place] [address] [id number] Electronics Engineering Manager: Marco Antonio Paiz PhD, Phone: [phone] Luca Medrano MD LAB BLOOD ORDERABLES Final R esult [facility] - 01 * TRANSTHORACIC ECHO (TTE) COMPLETE W DOPPLER/CF W CONTRAST (11/10/2024 4:05 PM [employer]) LV EF % CONS SCIMAGE Anatomical Region Laterality Modality Ultrasound 11/10/2024 2:55 PM [employer] Narrative 11/11/2024 9:34 AM [employer] [facility] [address], [address] [place] [address] Transthoracic Echocardiographic Report Patient Name: ESTUARDO COPELAND M : 1970 (54y ) Gender: F Study Date: 11/10/2024 02:55:48 PM Ht(Inch): 64 Wt(Lb): 115.08 BSA: 1.54 Fruit Har[employer] Worker: GERA Wells Location: [facility] Order Provider: LUCA MEDRANO Heart Rate: 76 BMI: 19.75 BP: 94/60 Quality: Technically difficult study due to limited acoustic windows. Ref Provider: LUCA MEDRANO PROCEDURES: Echocardiographic Report: ([id number], [id number], [id number]) Transthoracic complete echo with strain imaging and contrast, 2D, spectral and tissue Doppler, color flow Doppler, M- mode. Additional Procedures: ([id number]) 3D echocardiographic imaging from [facility]. Contrast: [...] [ 46.00 - 106.00 ] AI Decel [place] 1.58 m/s2 ESV Mod 2C 14.03 ml [...] peak transaortic gradient is 32.95 mmHg. A Alexis TAVR 20 mm Brown t3 is present [...] By: Silver Levin MD 11/11/2024 9:32:57 AM [employer] Electronically Signed By: Silver Levin MD 11/11/2024 9:32:57 AM [employer] Procedure Note Silver Levin MD - 11/11/2024 [facility] [address] [place] [address] Transthoracic Echocardiographic Report Patient Name: ESTUARDO COPELAND M : 1970 (54y ) Gender: F Study Date: 11/10/2024 02:55:48 PM Ht(Inch): 64 Wt(Lb): 115.08 BSA: 1.54 [employer] Worker: GERA Wells Location: [facility] Order Provider:LUCA MEDRANO Heart Rate: 76 BMI: 19.75 BP: 94/60 Quality: Technically difficult studydue to limited acoustic windows. Ref Provider: LUCA MEDRANO PROCEDURES: Echocardiographic Report: ([id number], [id number], [id number]) Transthoracic completeecho with strain imaging and contrast, 2D, spectral and tissue Doppler, color flow Doppler,M- mode. Additional Procedures: ([id number]) [facility] Contrast: 0.4 ml Optison Administered, (2.6 ml [...] EDV Mod 4C 60.63 ml AI Decel [id number] sec EDV Mod BP 56.21 ml [ 46.00 - 106.00 ] AI Decel [place]1.58 m/s2 ESV Mod 2C 14.03 ml AI BKW877.67 msec ESV Mod 4C 21.21 ml MV [...] cm LA Length 4C 5.48 cm MV WXV464.85 msec [ 20.00 - 100.00 ] LA Volume 2C 34.1 ml MVA PHT2.18 cm2 LA Volume 4C 31.3 ml MV Decel Pabd673.53 msec [ 104.00 - 258.00 ] LA [...] cm [ 2.70 - 3.70 ] MR MJN625.8 cm Ao Root Index 1.32 cm/m2 MR [...] The peaktransaortic gradient is 32.95 mmHg. A Alexis TAVR 20 mm Brown t3 is present [...] By: Silver Levin MD 11/11/2024 9:32:57 AM [employer] Electronically Signed By: Silver Levin MD 11/11/2024 9:32:57 AM [employer] us Luca Medrano MD CV ECHO PROCEDURES Final Res ult * HLA Antibody Screen by PRA or SAB per Schedule (Class I and Class II) (11/05/2024 10:00 AM [employer]) Blood 11/05/2024 10:0 0 AM [employer] Narrative [facility] - [employer] Sample received in lab and stored. No testing performed at this time. us Salina Hector MD LAB BLOOD ORDERABLES [...] GENERAL ORDERABLES Final Result CAMERON DOMINGUEZ [facility] Department [place] [address] from Last 3 Months or Most Recently Relevant to Health Maintenance Insurance [facility] CHOICE PLUS MEDICARE [facility] CHOICE PLUS [facility] CHOICE PLUS MEDICARE MEDICARE [facility] CHOICE PLUS MEDICARE TRANSPLANT [facility] [address] [id number] Advance Directives For more information, please contact: [phone] * Full Code (Latest Code Status on File) Date Activated Date Inactivated Comments 12/25/2024 10:59 AM 12/28/2024 9:10 AM * Full Code Date Activated Date Inactivated Comments 11/19/2024 3:56 PM 11/19/2024 11:56 PM * Full Code Date Activated Date Inactivated Comments 05/19/2024 4:20 PM 05/25/2024 8:59 PM * Full Code Date Activated Date Inactivated Comments 08/21/2023 9:05 PM 08/27/2023 8:34 PM * Full Code Date Activated Date Inactivated Comments 08/02/2022 5:04 PM 08/03/2022 10:09 PM Care Teams Machine Set Up Operator Paper Goods Relationship Specialty Start Date End Date aPl Downey DO PCP - General Internal Medicine 01/25/21 Quinton Rowan MD Referring Physician Cardiology 01/09/19 Tami Flores, TONO [address] [address] Registered Nurse Data Control Assistant 01/25/21 Cricket Escalante MD [address] [address] Referring Physician Nephrology 03/24/21 Gael Sprague MD PhD [address] [address] Fellow Endocrinology Diabetes & Metabolism 03/24/21 Brad Turner MD [facility] [address] [id number] Consulting Physician Obstetrics and Gynecology 03/24/21 Margarita Montoya MD [facility] [address] [id number] Consulting Physician Trauma Surgery 12/27/21 Luca Medrano MD [address] [address] Consulting Physician Cardiology 08/03/22 Pb Galloway MD [address] [phone] [place] [address] Cardiothoracic Surgery 05/25/24 Felipe Gerber MD [address] [id number] [place] [address] Consulting Physician Cardiology 05/25/24
--- OUTSIDE RECORDS SUMMARY | 2025-01-12 18:16 | XMS_ITS | Clinical Summary ---
Author Organization [facility] Address [address] [place] [address] Care Team Providers Care Respiratory Care Program Director Name Role Phone Quinton Rowan MD Unavailable Pal Downey DO Primary Care Provider [phone] Tami Flores RN Unavailable Cricket Escalante MD Unavailable Gael Sprague MD PhD Unavailable Brad Turner MD Unavailable Margarita Montoya MD Unavailable Luca Medrano MD Unavailable Pb Galloway MD Unavailable Felipe Gerber MD Unavailable [phone] Allergies Active Allergy Reactions Criticality Noted [...] (02/01/2022): Added automatically from request for surgery [id number] Disorder of peritoneal dialysis catheter 022 Overview (12/22/2021): Added automatically from request for surgery [id number] Chronic kidney disease, stage V 10/31/2021 Overview (08/21/2023): Added automatically from request for surgery [id number] Sick sinus syndrome 11/02/2020 Diastolic heart failure [...] Assessment & Plan (02/25/2019 11:43 AM CDT): LHC with 95% LAD lesion, [...] Assessment & Plan (02/24/2019 9:29 AM CDT): LHC with 95% LAD lesion, [...] Assessment & Plan (02/19/2019 2:08 AM CDT): LHC with 95% LAD lesion, had some RV dysfunction during AV repair and found to have RCA occlusion following LAD bypass - s/p IABP placement - CABG to LAD and LCA Assessment & Plan (02/17/2019 7:38 PM CDT): LHC with 95% LAD lesion, had some RV dysfunction during AV repair and found to have RCA occlusion following LAD bypass - s/p IABP placement - CABG to LAD and LCA - on Epi and Milrinone, wean epi as above Assessment & Plan (02/16/2019 11:38 PM CDT): LHC with 95% LAD lesion, had some RV dysfunction during AV repair and found to have RCA occlusion following LAD bypass - s/p IABP placement - CABG to LAD and LCA - on Epi and Milrinone of inotropy Assessment & Plan (02/11/2019 6:16 PM CDT): [facility] with 95% LAD lesion, had some RV dysfunction during AV repair and found to have RCA occlusion following LAD bypass - s/p IABP placement - CABG to LAD and LCA - on Epi and Milrinone of inotropy Assessment & Plan (02/08/2019 5:38 PM CDT): -Patient w/ chest pain/SOB along w/ significant troponin elevation -Plan for [facility] w/ possible PCI tomorrow pending results -heparin, [...] to 4.35 - valve team consulted, 02/09 [facility] with severe 1 vessel disease of ostial [...] (02/09/2019): Added automatically from request for surgery [id number] Assessment & Plan (05/17/2019 9:19 AM CDT): [...] (02/10/2019): Added automatically from request for surgery [id number] Assessment & Plan (05/24/2024 11:21 AM CDT): CABG 2018 (SVG-LAD, T graft-RCA), PCI SVG-LAD 02/2022 and repeat PCI in 07/2022 Continue DAPT Holding the BB for now Assessment & Plan (08/03/2022 2:24 PM CDT): -s/p CABG 2019, PCI with stent placement 02/2022 and 07/24/2022 [...] currently stable Daily BMPs, while inpatient Home insurance checker is Dr. Escalante Continue lasix 40 mg [...] kidney disease, baseline Cr 2.4-2.6. F/b OSH insurance checker. Apparently discussions for potential need for renal txp being discussed. - Cr at baseline on adm - avoid nephrotoxins, renally dose meds - continue calcitriol 0.5 mcg/day - Cr 2.75, received pre-cath hydration, stable 2.7 Headache 05/02/2016 Moderate COPD (chronic obstr uctive pulmonary disease) ([facility]) 11/02/2015 Assessment & [...] AM CDT): Alexis TAVR 05/21 Followed by [facility], Dr. Medrano. CT TAVR [...] not a candidate for intervention [facility] Assessment & Plan (05/17/2019 9:28 [...] AV. Referred to valve team by primary senior front end web developer Dr. Rowan. Seen 02/02 by valve team [...] CABG 01/2019 -continue ASA -evaluate for beta pmaela and statin Demand ischemia 05/20/2019 05/21/2019 Assessment [...] around 2.4 Dr Escalante is her home insurance checker Assessment & Plan (02/23/2019 12:20 PM CDT): Pt above POW by 2 kg. Lasix on hold due to elevation in Creatinine Baseline creat is around 2.4 Dr Escalante is her home insurance checker Agitation requiring sedation protocol 02/14/2019 02/23/2019 Acute [...] she had reactions to (?). Per OSH insurance checker's note in Care Everywhere, pt tried metoprolol [...] Department Care Team Description 01/12/2025 Orders Only [facility] [address] [facility] [address] [phone] [place] [address] Tami Flores RN ESRD (end stage renal disease) (HCC) (Primary Dx) 01/04/2025 10:00 AM CDT - 01/04/2025 11:59 PM CDT Hospital Encounter [facility] [address] [place] [address] ESRD (end stage renal disease) (HCC) Discharge Disposition: Discharge to home or self care 12/29/2024 Telephone [facility] Cardiology [facility] [address] [place] [phone] Luca Medrano MD transplant candidacy 12/25/2024 8:00 AM SHELTER MONITOR - 12/25/2024 10:05 AM SHELTER MONITOR Surgery [facility] [address] [place] [phone] Luca Medrano MD PCI KARINA MAJOR CORONARY C9600 - [id number] 12/25/2024 6:32 AM SHELTER MONITOR - 12/25/2024 3:55 PM SHELTER MONITOR Hospital Encounter [facility] [address] [place] [phone] Luca Medrano MD Coronary artery disease involving [place] coronary artery of [place] heart with angina pectoris [I25.119] (Primary Dx); Chest pain, unspecified type; Chest pain Discharge Disposition: Discharge to home or self care 12/25/2024 Telephone [facility] [address] [facility] [address] [place] [address] Luca Medrano MD post PCI recs 12/24/2024 Orders Only [facility] Scanning, Provider 12/22/2024 Orders Only [facility] Scanning, Provider 12/22/2024 Telephone [facility] 8th [place] [address] [place] [phone] Luca Medrano MD critical lab result 12/14/2024 Telephone [facility] [address] [facility] [address] [place] [address] Luca Medrano MD PCI per Dr. Medrano 11/27/2024 10:00 AM SHELTER MONITOR - 11/27/2024 11:59 PM SHELTER MONITOR Hospital Encounter [address] [id number] ESRD (end stage renal disease) (HCC) Discharge Disposition: Discharge to home or self care 11/19/2024 2:02 PM SHELTER MONITOR - 11/19/2024 3:42 PM SHELTER MONITOR Surgery [facility] [address] [place] [phone] Luca Medrano MD LEFT HEART CATHETERIZATION WITH CORONARY ANGIOGRAPHY AND WITH OR WITHOUT LEFT VENTRICULOGRAM [id number] 11/19/2024 11:04 AM SHELTER MONITOR - 11/19/2024 7:20 PM SHELTER MONITOR Hospital Encounter [facility] [address] [place] [phone] Luca Medrano MD Coronary artery disease involving [place] coronary artery of [place] heart with angina pectoris (HCC) [I25.119] (Primary Dx); Chest pain, unspecified type Discharge Disposition: Discharge to home or self care 11/18/2024 11:45 AM SHELTER MONITOR Office Visit [facility] [address] [facility] [address]th [place] [address] [place] [address] Lane Ramos MD PhD SSS (sick sinus syndrome) (HCC) (Primary Dx) 11/18/2024 11:15 AM SHELTER MONITOR Ancillary Procedure [address] [place] [address] [place] [address] SSS (sick sinus syndrome) (HCC) (Primary Dx); Fitting or adjustment of cardiac pacemaker 11/17/[address] [facility] Scanning, Provider 11/16/2024 Orders Only [address] Office [facility] [address] [place] [address] Lane Ramos MD PhD 11/10/2024 3:00 PM SHELTER MONITOR Ancillary Procedure [facility] [address] [place] [address] [address] [place] [address] Acute diastolic heart failure (HCC) 11/10/[address] Office [facility] [address] [place] [address] Luca Medrano MD [facility] 11/05/2024 10:00 AM SHELTER MONITOR - 11/05/2024 11:59 PM SHELTER MONITOR Hospital Encounter [address] [id number] ESRD (end stage renal disease) (HCC) Discharge Disposition: Discharge to home or self care 11/05/2024 Orders Only [address] [place] [address] [place] [address] Luca Medrano MD 11/04/2024 11:30 AM SHELTER MONITOR Office Visit [address] Building [address] [place] [address] Luca Medrano MD Acute diastolic heart failure (HCC) (Primary Dx); Chronic systolic heart failure (HCC); Coronary artery disease involving [place] coronary artery of [place] heart with angina pectoris from Last 3 Months Immunizations Immunization Administration Dates Next Due Hep B Vaccine 02/24/2024, 4,09/23/2023,08/30/2023,04/30/2022,06/0 10/2021,02/19/2022 Influenza, Split 10/21/2017 PPD TEST 03/23/2024,03/25/2023 Surgical History Surgery Date Site/Laterality Comments THORACOTOMY [...] LINE PLACEMENT > 5 YEARS 05/20/2024 N/A CARDIAC CATHETERIZATION 12/25/2024 N/A Procedure: PCI KARINA MAJOR CORONARY C9600 - [id number]; Surgeon: Luca Medrano MD; Location[facility] CARDIAC STONE SANDBLASTER; Service: Cardiovascular; Laterality: N/A; Medical devices from this surgery are in the Medical Devices section. Medical History Medical History Date Comments Hypertension Essential Thyroid mass s/p resection Coronary artery disease invo lving [place] valley heart 02/07/2019 Added automatically from re[facility]olica uest for surgery [id number] (LAD, LCA) Volume overload 02/14/2019 Leukocytosis 02/21/2019 Pleural effusion 02/2019 Status post lef t thoracostomy 02/27/2019 Hypothyroidism 01/2019 Postoperative Anemia Personal history of other me dical treatment History of combined restrictive/obstructive lung disease, A-fib ([facility]) 01/2019 Postoperative pa roxysmal A. 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[facility]) Spinal stenosis Polycystic kidney disease ESRD on peritoneal dialysis ([facility]) Heart murmur DC (myocardial infarction) (HCC) CHF (congestive heart failure) (HCC) Nausea 05/10/2019 Aortic valve insufficiency, acquired 05/19/2024 [...] on file Legal Sex Female 4:06 AM SHELTER MONITOR Gender Identity Female 01/16/2024 11:18 AM CDT Sexual Orientation Straight 01/16/2024 11 :18 AM CDT Obstetrics History Comments Status Post Hysterectomy Last Filed Vital Signs Vital Sign Reading Time Taken Comments Blood Pressure 90/66 12/25/2024 3:23 PM SHELTER MONITOR Pulse 77 12/25/2024 3:23 PM SHELTER MONITOR Temperature 36.6 C (97.9 F) 12/25/2024 7:30 AM SHELTER MONITOR Respiratory Rate 18 12/25/2024 3:23 PM SHELTER MONITOR Oxygen Saturation 92% 12/25/2024 2:03 PM SHELTER MONITOR Inhaled Oxygen Concentration - - Weight 55.9 kg (123 lb 3.8 oz) 12/25/2024 7:30 A M SHELTER MONITOR Height 162.6 cm (5' 4 ) 12/25/2024 7:30 AM SHELTER MONITOR Body Mass Index 21.15 12/25/2024 7:30 AM SHELTER MONITOR Plan of Treatment Scheduled Procedures Name Priority Associated Diagnoses Date/Ti me TRANSPLANT KIDNEY ESRD (end stage renal disease) (HCC) Health Maintenance Due Date Last Done Comments Breast Cancer Screening-Mammogram 1971 Colon Cancer Screening-Colonoscopy 1971 Depression Screening 1971 DTaP/Tdap/Td Vaccine (1 - Tdap) 1982 Regular Well Visit/Exam 18-64 1989 Pneumococcal vaccine <65 (1 of 2 - PCV) 1990 Lung Cancer Screening 2021 Zoster Vaccine (1 of 2) 2021 Influenza Vaccine (#1) 2024 10/21/2017 Hepatitis C Screening Completed 03/06/2023, 021 Medical Devices Implanted Type Area Special Education Paraeducator Device Identifier Shelf Expiration Date Model / Serial / Lot Angio-Seal Evolution 6fr Vascular Closure [id number] - [id number] - [id number] Implanted:Qty: 1 on 03/09/2022 by Luca Medrano MD at [facility] Collagen Right: Femoral Ter[employer]o [employer] Pam 09/19/2022 [id number] / [id number] / [id number] Ter[employer] Pam Angio-Seal Vip 6fr Closere Device 136721 - [id number] - [id number] Implanted:Qty: 1 on 07/24/2022 by Luca Medrano MD at [facility] Collagen [employer] Pam 03/20/2023 [id number] / [id number] / [id number] Ter[employer] Pam Angio-Seal Vip 6fr Closere Device 084787 - [id number] - [id number] Implanted:Qty: 1 on 05/21/2024 at [facility] Collagen Right: Common Femoral Artery [employer] Pam 01/09/2025 [id number] / [id number] / [id number] Ter[employer] Pam Angio-Seal Vip [place]-Plus 8fr .038in 70cm Hemostatic Latex Free 295031 - [id number] - [id number] Implanted:Qty: 1 on 05/21/2024 by Felipe Gerber MD at [facility] Collagen Right: Common Femoral Artery [employer] Pam 01/06/2025 [id number] / [id number] / [id number] Medtronic Cardiac Rhythm Mgmt 5076-52 Capsurefix Novus 6.2fr 2mm 52cm Bipolar Screw In Implantable Latex Free - [id number] - [id number] Implanted:Qty: 1 on 05/15/[address] Ramos MD PhD at [facility] Lead Medtronic Inc 03/11/2021 5076-52 / [id number] / Medtronic Cardiac Rhythm Mgmt 5076-45 Capsurefix Novus 6.2fr 2mm 45cm Bipolar Screw In Implantable - [id number] - [id number] Implanted:Qty: 1 on 05/15/[address] Ramos MD PhD at [facility] Lead Medtronic Inc 03/30/2021 5076-45 / [id number] / ThinkSmart [id number] Linear 7.5fr 6in Insertion Kit Turning Machine Operator Helper Introducer Sheath - [id number] Implanted:Qty: 1 on 02/10/2019 by Luca Medrano MD at [facility] Other - see comments ThinkSmart [id number] -[id number] 1 / / Description:IABP Medtronic Inc [id number] [place] Curl Cath Beta-Cap Holden 15fr 57cm 2 Cuff Clamp Adapter - [id number] - [id number] Implanted:Qty: 1 on 11/21/2021 by Carlos Kamara MD at [facility] Other - see comments N/A: Abdomen Medtronic Inc 11/30/2022 8811-31 3015 / 0 / [id number] Medtronic Cardiac Rhythm [facility] W1dr01 Tereza Wirelessly Pacemaker Cardiac - [id number] - [id number] Implanted:Qty: 1 on 05/15/[address] Ramos MD PhD at [facility] Pacemaker Medtronic Inc [id number] 09/17/2020 [id number] / [id number] / Jamil Lifesciences Valve Aortic Trnscath Brown 3 Ultra Resilia 20mm [id number] - [id number] - [id number] Implanted:Qty: 1 on 05/21/2024 by Felipe Gerber MD at [facility] Prosthetic Valve N/A: Aortic Valve [employer]il [employer]iences 02/27/2027 [id number] 20A / [id number] / Medtronic Inc Resolute [place] 4mm 2.1-2.7fr 12mm 140cm Rapid Exchange Radiopaque [id number] - [id number] - [id number] Implanted:Qty: 1 on 03/09/2022 by Luca Medrano MD at [facility] Stent Left: Coronary Medtronic Inc 12/06/2022 [id number] [id number] / [id number] / [id number] Description:LAD Biotronik Inc Stent Coronary De Rx Cocr Ors Msn 4.0x15mm [id number] - [id number] - [id number] Implanted:Qty: 1 on 07/24/2022 by Luca Medrano MD at [facility] Stent [employer]ot[employer]ik Inc 09/05/2023 [id number] / [id number] / [id number] Medtronic Card Vasc Surgery 4.0 X 15mm Clive [place] Rx Coronary Stent [id number] - [id number] - [id number] Implanted:Qty: 1 on 11/19/2024 by Luca Medrano MD at [facility] Stent N/A: Saphenous Vein Graft Medtronic Card Vasc Surgery 05/05/2027 [id number] / [id number] / [id number] Medtronic Card Vasc Surgery 2.50 X 12mm [place] Rx Coronary Stent [id number] - [id number] - [id number] Implanted:Qty: 1 on 12/25/2024 by Luca Medrano MD at [facility] Stent Medtronic Card Vasc Surgery 06/03/2027 [id number] / [id number] / [id number] Painter Vascular System Closure Repair Femoral Artery Suture Mediated Perclose Prostyle 31188-46 - [id number] - [id number] Implanted:Qty: 1 on 05/21/2024 by Felipe Gerber MD at [facility] Vascular Closure Device Left: Common Femoral Artery Painter Vascular 02/17/2026 82513-5 3 / [id number] / [id number] Ter[employer] Pam Angio-Seal Vip 6fr Closere Device [id number] - [id number] - [id number] Implanted:Qty: 1 on 11/19/2024 by Luca Medrano MD at [facility] Vascular Closure Device N/A: Saphenous Vein Graft [employer] Pam 04/29/2025 [id number] / [id number] / [id number] Ter[employer]o Medical Pam Angio-Seal Vip 6fr Closere Device 854703 - [id number] - [id number] Implanted:Qty: 1 on 12/25/2024 by Sanket Quiroz MD at [facility] Vascular Closure Device Right: Common Femoral Artery [employer] Pam 06/30/2025 338106 / [id number] / [id number] Description:RFA [employer] Pam Angio-Seal Vip [place]-Plus 8fr .038in 70cm Hemostatic Latex Free 025936 - [id number] - [id number] Implanted:Qty: 1 on 12/25/2024 by Sanket Quiroz MD at [facility] Vascular Closure Device Right: Femoral Vein [employer] Pam 07/21/2025 [id number] / [id number] / [id number] Description:RFV [employer] Pam [id number] Supple Ronna-Guard [place] Processing 4x4cm Patch Cardiovascular - [id number] - [id number] Implanted:Qty: 1 on 02/11/2019 by Christopher Holman MD at [facility] N/A: Chest [employer] Pam 06/03/2023 [id number] / 3211-04 04-0010 / [id number] Jamil Lif[employer]iences [id number] Certitude Brown 3 Atrion 18fr Transcatheter Introducer Crimper - [id number] - [id number] Implanted:Qty: 1 on 02/11/2019 by Christopher Holman MD at [facility] N/A: Heart Jamil [employer] [id number] / [id number] / Medtronic Inc [id number] [place] Curl Cath Beta-Cap Holden 15fr 57cm 2 Cuff Clamp Adapter - [id number] Implanted:Qty: 1 on 12/27/2021 by Margarita Montoya MD at [facility] N/A: Abdomen Medtronic Inc 10/14/2023 8811-31 3015 / / Procedures Procedure Name Priority Date/Time Associated Diagnosis Comments HLA ANTIBODY SCREEN BY PRA OR SAB PER SCHEDULE (CLASS I AND CLASS II) Routine 01/04/2025 10:00 AM CDT ESRD (end stage renal disease) (HCC) POC BLOOD GAS AND CHEMISTRIES, VENOUS Routine 12/25/2024 2:21 PM SHELTER MONITOR EGFR Routine 12/25/2024 1:19 PM SHELTER MONITOR CRITICAL RESULT CALLBACK CHEMISTRY Routine 12/25/2024 1:19 PM SHELTER MONITOR DIFFERENTIAL AUTO Routine 12/25/2024 1:1 9 PM SHELTER MONITOR CBC WITH AUTO DIFFERENTIAL Routine 12/25/2024 1:19 PM SHELTER MONITOR BASIC METABOLIC PANEL Routine 12/25/2024 1:19 PM SHELTER MONITOR KARINA MAJOR CORONARY Routine 12/25/2024 10 :05 AM SHELTER MONITOR Chest pain, unspecified type POCT ACTIVATED CLOTTING TIME, LOW RANGE Routine 12/25/2024 10:05 AM SHELTER MONITOR POCT ACTIVATED CLOTTING TIME, LOW RANGE Routine 12/25/2024 9:24 AM SHELTER MONITOR POCT ACTIVATED CLOTTING TIME, LOW RANGE Routine 12/25/2024 8:58 AM SHELTER MONITOR TYPE AND SCREEN Timed 12/25/2024 8:13 AM SHELTER MONITOR POC BLOOD GAS AND CHEMISTRIES, ARTERIAL Routine 12/25/2024 8:12 AM SHELTER MONITOR POC BLOOD GAS AND CHEMISTRIES, ARTERIAL Routine 12/25/2024 8:08 AM SHELTER MONITOR ECG 12-LEAD Routine 12/25/2024 6:56 AM SHELTER MONITOR SCAN - LABS 12/24/2024 SCAN - LABS 12/22/2024 CBC WITH AUTO DIFFERENTIAL Routine 12/21/2024 12:48 PM SHELTER MONITOR Chest pain, unspecified type BASIC METABOLIC PANEL Routine 12/21/2024 12:48 PM SHELTER MONITOR Chest pain, unspecified type HLA ANTIBODY SCREEN - SAB (CLASS I AND CLASS II) Routine 11/27/2024 10:00 AM SHELTER MONITOR ESRD (end stage renal disease) (HCC) HLA ANTIBODY SCREEN BY PRA OR SAB PER SCHEDULE (CLASS I AND CLASS II) Routine 11/27/2024 10:00 AM SHELTER MONITOR ESRD (end stage renal disease) (HCC) EGFR Routine 11/19/2024 6:00 PM SHELTER MONITOR DIFFERENTIAL AUTO Routine 11/19/2024 6:0 0 PM SHELTER MONITOR CBC WITH AUTO DIFFERENTIAL Routine 11/19/2024 6:00 PM SHELTER MONITOR BASIC METABOLIC PANEL Routine 11/19/2024 6:00 PM SHELTER MONITOR POCT ACTIVATED CLOTTING TIME, LOW RANGE Routine 11/19/2024 4:42 PM SHELTER MONITOR POCT ACTIVATED CLOTTING TIME, LOW RANGE Routine 11/19/2024 3:23 PM SHELTER MONITOR LEFT HEART CATHETERIZATION WITH CORONARY ANGIOGRAPHY AND WITH AND WITHOUT LEFT VENTRICULOGRAM Routine 11/19/2024 2:50 PM SHELTER MONITOR Chest pain, unspecified type POCT ACTIVATED CLOTTING TIME, LOW RANGE Routine 11/19/2024 2:49 PM SHELTER MONITOR POCT ACTIVATED CLOTTING TIME, LOW RANGE Routine 11/19/2024 2:30 PM SHELTER MONITOR POCT ACTIVATED CLOTTING TIME, LOW RANGE Routine 11/19/2024 2:01 PM SHELTER MONITOR TYPE AND SCREEN Timed 11/19/2024 2:01 PM SHELTER MONITOR POCT ACTIVATED CLOTTING TIME, LOW RANGE Routine 11/19/2024 1:53 PM SHELTER MONITOR POCT ACTIVATED CLOTTING TIME, LOW RANGE Routine 11/19/2024 1:49 PM SHELTER MONITOR POCT OXYHEMOGLOBIN - DEVICE Routine 11/19/2024 1:27 PM SHELTER MONITOR POCT OXYHEMOGLOBIN - DEVICE Routine 11/19/2024 1:26 PM SHELTER MONITOR POCT OXYHEMOGLOBIN - DEVICE Routine 11/19/2024 1:26 PM SHELTER MONITOR POC BLOOD GAS AND CHEMISTRIES, ARTERIAL Routine 11/19/2024 11:45 AM SHELTER MONITOR ECG 12-LEAD Routine 11/19/2024 11:16 AM SHELTER MONITOR DEVICE CHECK - IN OFFICE Routine 11/18/2024 11:20 AM SHELTER MONITOR Fitting or adjustment of cardiac pacemaker SSS (sick sinus syndrome) (HCC) SCAN - LABS 11/17/2024 DEVICE CHECK - REMOTE Routine 11/16/2024 11:06 PM SHELTER MONITOR CBC WITH AUTO DIFFERENTIAL Routine 11/16/2024 1:57 PM SHELTER MONITOR S/P TAVR (transcatheter aortic valve replacement) Chest pain, unspecified type BASIC METABOLIC PANEL Routine 11/16/2024 1:57 PM SHELTER MONITOR S/P TAVR (transcatheter aortic valve replacement) Chest pain, unspecified type TRANSTHORACIC ECHO (TTE) COMPLETE W DOPPLER/CF W CONTRAST Routine 11/10/2024 4:05 PM SHELTER MONITOR Acute diastolic heart failure (HCC) HLA ANTIBODY SCREEN BY PRA OR SAB PER SCHEDULE (CLASS I AND CLASS II) Routine 11/05/2024 10:00 AM SHELTER MONITOR ESRD (end stage renal disease) (HCC) HEPATITIS C ANTIBODY Routine 03/06/2023 10:19 AM CDT ESRD (end stage renal disease) (HCC) from Last 3 Months or Most Recently Relevant to Health Maintenance Results * HLA Antibody Screen by PRA or SAB per Schedule (Class I and Class II) (01/04/2025 10:00 AM CDT) Blood 01/04/2025 10:0 0 AM CDT Narrative HISTOTRAC - SHELTER MONITOR Sample received in lab and stored. No testing performed at this time. us Salina Hector MD LAB BLOOD ORDERABLES Final Resul t HISTOTRAC * (ABNORMAL) POC Blood Gas and Chemistries, Venous - (12/25/2024 2:21 PM SHELTER MONITOR) pH, [place] POC 7.29(L) 7.32 - 7.43 pCO2, [place] POC 47 40 - 50 mmHg [facility] pO2, [place] POC 29 mmHg [facility] Na, POC 131(L) 135 - 145 mmol/L [facility] K POC 5.3(H) 3.3 - 4.9 mmol/L [facility] Comment: Interpretive Data Not all point [...] POC 1.1 0.7 - 2.0 mmol/L [facility] O2 Sat, [place] POC (Nevin) 38 % [facility] Base excess, POC -4.0 mmol/L [facility] HCO3, [place] POC 23 20 - 30 mmol/L [facility] Hct, POC 33.0(L) 36.3 - 45.3 % [facility] Total Hb, POC 11.1(L) 11.9 - 15.5 g/dL [facility] Blood 12/25/2024 2:21 PM SHELTER MONITOR 12/25/2024 2:21 PM SHELTER MONITOR Luca Medrano MD LAB POCT ORDERABLES - DEVICE Final Result Performing Organization Address [facility]/ZIP Co de Phone Number [facility] [place] [address] * (ABNORMAL) eGFR (12/25/2024 1:19 PM SHELTER MONITOR) eGFR 3(L) >=60 mL/min/1. 73 m2 Comment: [...] last reviewed 2021. Blood 12/25/2024 1:19 PM SHELTER MONITOR 12/25/2024 1:30 PM SHELTER MONITOR us Luca Medrano MD LAB BLOOD ORDERABLES Final R esult Performing Organization Address City/[facility]/ZIP Co de Phone Number [facility] Department [place] [address] * (ABNORMAL) Differential, auto (12/25/2024 1:19 PM SHELTER MONITOR) Neutrophil abs 5.1 1.5 - 6.5 K/cumm Imm gran abs 0.0 0.0 - 0.1 K/cumm [facility] Lymphocyte abs 0.7(L) 0.8 - 3.3 K/cumm [facility] Monocyte abs 0.4 0.2 - 0.8 K/cumm [facility] Eosinophil abs 0.1 0.0 - 0.5 K/cumm [facility] Basophil abs 0.0 0.0 - 0.1 K/cumm [facility] Neutrophil pct 80.1 % [facility] Comment: Interpretive Data Percent cell count reference ranges are not reported, since discordance with absolute values may lead to misinterpretation of CBC data. Current Interpretive Data was last revised on 2018. Imm gran pct 0.5 % [facility] Comment: Interpretive Data Percent cell count reference ranges are not reported, since discordance with absolute values may lead to misinterpretation of CBC data. Current Interpretive Data was last revised on 2018. Lymphocyte pct 11.3 % [facility] Comment: Interpretive Data Percent cell count reference ranges are not reported, since discordance with absolute values may lead to misinterpretation of CBC data. Current Interpretive Data was last revised on 2018. Monocyte pct 6.0 % [facility] Comment: Interpretive Data Percent cell count reference ranges are not reported, since discordance with absolute values may lead to misinterpretation of CBC data. Current Interpretive Data was last revised on 2018. Eosinophil pct 1.6 % [facility] Comment: Interpretive Data Percent cell count reference ranges are not reported, since discordance with absolute values may lead to misinterpretation of CBC data. Current Interpretive Data was last revised on 2018. Basophil pct 0.5 % [facility] Comment: Interpretive Data Percent cell count reference ranges are not reported, since discordance with absolute values may lead to misinterpretation of CBC data. Current Interpretive Data was last revised on 2018. Blood 12/25/2024 1:19 PM SHELTER MONITOR 12/25/2024 1:30 PM SHELTER MONITOR us Luca Medrano MD LAB BLOOD ORDERABLES Final R esult [facility] Department [place] [address] * Critical Result Callback Chemistry (12/25/2024 1:19 PM SHELTER MONITOR) Date Notified 20241225 Time Notified 1409 [facility] TestName Potassium Plas Calcium [facility] Called/Read Back Grisel BARNES [facility] Credentials RN [facility] Called By RG [facility] Blood 12/25/2024 1:19 PM SHELTER MONITOR 12/25/2024 1:30 PM SHELTER MONITOR us Luca Medrano MD LAB BLOOD ORDERABLES Final R esult Performing Organization Address City/[facility]/ZIP Co de Phone Number [facility] Department [place] [address] * (ABNORMAL) CBC with auto differential (12/25/2024 1:19 PM SHELTER MONITOR) [facility] WBC 6.3 3.8 - 9.9 K/cumm Hgb 11.2(L) 11.9 - 15.5 g/dL [facility] Hct 36.0 35.6 - 45.5 % [facility] Plt 106(L) 150 - 400 K/cumm [facility] MPV 10.1 9.1 - 12.3 fL [facility] RBC 3.99 3.90 - 5.20 M/cumm [facility] MCV 90.2 81.3 - 96.4 fL [facility] MCH 28.1 27.1 - 33.3 pg [facility] MCHC 31.1(L) 32.3 - 35.7 g/dL [facility] RDW CV 15.4(H) 11.1 - 14.9 % [facility] RDW SD 50.8(H) 35.7 - 48.1 fL [facility] NRBC abs 0.00 0.00 - 0.01 K/cumm [facility] Blood 12/25/2024 1:19 PM SHELTER MONITOR 12/25/2024 1:30 PM SHELTER MONITOR us Luca Medrano MD LAB BLOOD ORDERABLES Final R esult Performing Organization Address City/[facility]/ZIP Co de Phone Number [facility] Department [place] [address] * (ABNORMAL) Basic metabolic panel (12/25/2024 1:19 PM SHELTER MONITOR) [facility] Sodium 135 135 - 145 mmol/L Potassium, pl 6.3(C) 3.3 - 4.9 mmol/L [facility] Chloride 95(L) 97 - 110 mmol/L [facility] CO2 23 22 - 32 mmol/L [facility] Anion gap 17(H) 2 - 15 mmol/L [facility] BUN 59(H) 6 - 25 mg/dL [facility] Creatinine 15.37(H) 0.60 - 1.10 mg/dL [facility] Glucose 142 70 - 199 mg/dL [facility] Comment: Interpretive Data Fasting glucose >/= [...] classification and Diagnosis of Diabetes Diabetes Care 202; 46: S19-S40. Current interpretive data was last revised 2022. Calcium 5.7(C) 8.5 - 10.3 mg/dL [facility] Blood 12/25/2024 1:19 PM SHELTER MONITOR 12/25/2024 1:30 PM SHELTER MONITOR us Luca Medrano MD LAB BLOOD ORDERABLES Final R esult [facility] Department [place] [address] * KARINA MAJOR CORONARY (12/25/2024 10:05 AM SHELTER MONITOR) Anatomical Region Laterality Modality X-Ray Angiograph y Impressions 12/25/2024 3:40 PM SHELTER MONITOR Severely calcified left main stenosis status post [...] Luca Medrano MD Narrative 12/25/2024 3:40 PM SHELTER MONITOR Table formatting from the original result was not included. Procedure: CORONARY ANGIOGRAM / PERCUTANEOUS CORONARY INTERVENTION Patient: Estuardo Copeland is a 54 y.o. female : 1970 MR number: [id number] Date of Service: 12/25/2024 Steel Crane Operator: Luca Medrano MD Fellow: Sanket Quiroz MD [...] obtained. The patient was brought to the laborer wrecking and salvaging and placed on the table Bilateral groins [...] Flow 3. Equipment used: 7 JL 3.0, [employer] IVUS Catheter, whisper wire, 2 0 x 12 emerge balloon, 225 x 12 NC emerge balloon, 2 5 x 12 NC emerge balloon, 2 5 shockwave lithotripsy balloon, 6 Anguillan GuideLiner Coast, 2 5 x 12 mm [...] right common femoral artery and a 7 Anguillan sheath inserted without difficulty. Next we took a 7 Anguillan JL 3 guiding catheter up and sat [...] was unsuccessful. We then placed a 6 Anguillan GuideLiner down from with an additional 225 [...] an additional 2 5 balloon down physician mike Krishna in the appropriate location. We then with [...] was placed without difficulty. COMPLICATIONS: None DIAGNOSTIC Luca Medrano MD CV CARDIAC CATH PROCEDURES F inal Result * (ABNORMAL) POCT Activated clotting time, low range (12/25/2024 10:05 AM SHELTER MONITOR) ACT 298(H) 123 - 168 sec POC Performer [id number] [facility] POC Device Number [id number] [facility] Blood 12/25/2024 10:0 5 AM SHELTER MONITOR 12/25/2024 10:05 AM SHELTER MONITOR Luca Medrano MD LAB POCT ORDERABLES - DEVICE Final Result Performing Organization Address [facility] Co de Phone Number [facility] Department [place] [address] * (ABNORMAL) POCT Activated clotting time, low range (12/25/2024 9:24 AM SHELTER MONITOR) ACT 329(H) 123 - 168 sec POC Performer [id number] [facility] POC Device Number [id number] [facility] Blood 12/25/2024 9:24 AM SHELTER MONITOR 12/25/2024 9:24 AM SHELTER MONITOR Luca Medrano MD LAB POCT ORDERABLES - DEVICE Final Result Performing Organization Address [facility] de Phone Number [facility] [place] [address] * (ABNORMAL) POCT Activated clotting time, low range (12/25/2024 8:58 AM SHELTER MONITOR) [facility] ACT >400(H) 123 - 168 sec POC Performer [id number] [facility] POC Device Number [id number] [facility] Blood 12/25/2024 8:58 AM SHELTER MONITOR 12/25/2024 8:58 AM SHELTER MONITOR Luca Medrano MD LAB POCT ORDERABLES - DEVICE Final Result Performing Organization Address [facility] de Phone Number [facility] [place] [address] * Type and screen (12/25/2024 8:13 AM SHELTER MONITOR) [facility] ABO Rh B Positive Jorge A, indirect Negative [facility] Blood 12/25/2024 8:13 AM SHELTER MONITOR 12/25/2024 8:20 AM SHELTER MONITOR Narrative [facility] - 12/25/2024 9:11 AM SHELTER MONITOR Has the patient had Daratumumab or Isatuximab in the past 6 months?->Unknown us Luca Medrano MD LAB BLOOD BANK TEST ORDERABL ES Final Result Performing Organization Address [facility] de Phone Number [facility] Department [place] [address] * (ABNORMAL) POC Blood Gas and Chemistries, Arterial - (12/25/2024 8:12 AM SHELTER MONITOR) Pathologist [facility] pH, Art POC 7.39 7.35 - 7.45 pCO2, Art POC 32(L) 35 - 45 mmHg [facility] pO2, Art POC 84 83 - 108 mmHg [facility] Na, POC 135 135 - 145 mmol/L [facility] K POC 5.5(H) 3.3 - 4.9 mmol/L [facility] Comment: Interpretive Data Not all point of care methods assess for hemolysis. Confirm with instrument and retest K+ if not consistent with clinical signs and symptoms. Current Interpretive Data was last revised on 2024. Cl, POC 101 97 - 110 mmol/L [facility] Ionized Ca, POC 2.96(C) 4.50 - 5.10 mg/dL [facility] Glucose, POC 88 70 - 199 mg/dL [facility] Lactate, POC 1.1 0.7 - 2.0 mmol/L [facility] SO2 (nevin) arterial 96(H) 90 - 95 % [facility] Base excess, POC -4.7 mmol/L [facility] HCO3, Art POC 19(L) 20 - 30 mmol/L [facility] Hct, POC 36.0(L) 36.3 - 45.3 % [facility] Total Hb, POC 11.9 11.9 - 15.5 g/dL [facility] Blood 12/25/2024 8:12 AM SHELTER MONITOR 12/25/2024 8:12 AM SHELTER MONITOR Luca Medrano MD LAB POCT ORDERABLES - DEVICE Final Result Performing Organization Address City/[facility] Co de Phone Number [facility] Department [place] [address] * (ABNORMAL) POC Blood Gas and Chemistries, Arterial - (12/25/2024 8:08 AM SHELTER MONITOR) K POC 5.2(H) 3.3 - 4.9 mmol/L Comment: Interpretive Data Not all point of care methods assess for hemolysis. Confirm with instrument and retest K+ if not consistent with clinical signs and symptoms. Current Interpretive Data was last revised on 2024. Blood 12/25/2024 8:08 AM SHELTER MONITOR 12/25/2024 8:08 AM SHELTER MONITOR us Luca Medrano MD LAB POCT ORDERABLES - DEVICE Final Result Performing Organization Address City/State/[facility] Co de Phone Number [facility] Department [place] [address] * ECG 12 lead (12/25/2024 6:56 AM SHELTER MONITOR) Pathologist [facility] Ventricular Rate EKG/Min 82 BPM [facility] Atrial Rate 82 BPM [facility] QRS-Interval (MSEC) 86 ms [facility] QT-Interval (MSEC) 410 ms [facility] QTc 479 ms [facility] R [place] -10 degrees [facility] T [place] 155 degrees [facility] Diagnosis atrial-paced complexes Premature atrial complexes in a pattern of bigeminy Minimal voltage criteria for LVH, may be normal variant ( Oliverio product ) Septal infarct , age undetermined T wave abnormality, consider lateral ischemia Abnormal ECG When compared with ECG of 19-NOV-2024 11:16, no significant change Confirmed by HARJINDER HANDY M.D ([id number]) on 01/06/2025 3:41:43 PM [facility] 12/25/2024 6:56 AM SHELTER MONITOR 01/06/2025 3:41 PM CDT Luca Medrano MD ECG ORDERABLES Final Result [facility] * SCAN - LABS (12/24/2024) us Provider Scanning Final Result * SCAN - LABS (12/22/2024) us Provider Scanning Final Result * (ABNORMAL) CBC with auto differential (12/21/2024 12:48 PM SHELTER MONITOR) Pathologist [facility] WBC 7.0 3.4 - 10.8 x10E3/uL [facility] [...] - 01 Blood 12/21/2024 12:4 8 PM SHELTER MONITOR 12/21/2024 Narrative [facility] - 12/22/2024 7:09 AM SHELTER MONITOR Performed at: [address] [place] [address] [id number] Global Sales Executive: Marco Antonio Paiz PhD, Phone: [phone] us Luca Medrano MD LAB BLOOD ORDERABLES Final R esult [facility] 01 * (ABNORMAL) Basic metabolic panel (12/21/2024 12:48 PM SHELTER MONITOR) [facility] Glucose 85 70 - 99 mg/dL [facility] [...] repeat analysis Blood 12/21/2024 12:4 8 PM SHELTER MONITOR 12/21/2024 Narrative [facility] - 12/22/2024 2:10 PM SHELTER MONITOR Performed at: [address] [place] [address] [id number] Global Sales Executive: Marco Antonio Paiz PhD, Phone: [phone] Specimen Comment: Called/faxed to [facility] TELL[facility] on 12/22/2024 at 13:44 ET Specimen Comment: for tests Creatinine; Calcium us Luca Medrano MD LAB BLOOD ORDERABLES Final R esult Performing Organization Address City/[facility] Co de Phone Number [facility] * HLA Antibody Screen by PRA or SAB per Schedule (Class I and Class II) (11/27/2024 10:00 AM SHELTER MONITOR) Blood 11/27/2024 10:0 0 AM SHELTER MONITOR Narrative [facility] - SHELTER MONITOR Sample received in lab. Single Antigen Antibody Screen ordered. us Salina Hector MD LAB BLOOD ORDERABLES Final Resul t Performing Organization Address City/[facility] Co de Phone Number [facility] * HLA Antibody Screen - SAB (Class I and Class II) (11/27/2024 10:00 AM SHELTER MONITOR) Class I Treatment EDTA [facility] Class I [...] Risk DPB1*01:01 [facility] 11/27/2024 10:0 0 AM SHELTER MONITOR 12/03/2024 1:32 PM SHELTER MONITOR Narrative [facility] - 12/03/2024 1:32 PM SHELTER MONITOR Single-antigen HLA antibody screen is performed on serum samples using a method developed and validated by the [facility] HLA laboratory based on an FDA-approved IVD kit (Nomaninicreen Single-Antigen, [place], [facility] [place]). All patient serum samples are pretreated with EDTA before the screen to prevent complement interference. Additional serum treatments, such as adsorption and DTT treatment, may be performed as indicated. Interpretive comments: Low risk: MFI [id number]. Moderate risk: MFI 3481-4653. Increased risk: MFI >/= 5000. The presence [...] antigens to avoid. Testing performed at the [facility], [address], [place], [address]. [facility] # [id number]. Rosa Millan, Ph.D., Math Coach, HLA Laboratory Wilmer Prescott M.D., Ph.D., Staff Radiation Therapist, HLA Laboratory Alma Payton, Ph.D., CLIA Staff Radiation Therapist, [facility] Current methodology and interpretive comments last revised on 11/15/2022. us Salina Hector MD LAB BLOOD ORDERABLES Final Resul t [facility] * (ABNORMAL) eGFR (11/19/2024 6:00 PM SHELTER MONITOR) eGFR 3(L) >=60 mL/min/1. 73 m2 Comment: [...] last reviewed 2021. Blood 11/19/2024 6:00 PM SHELTER MONITOR 11/19/2024 6:10 PM SHELTER MONITOR us Luca Medrano MD LAB BLOOD ORDERABLES Final R esult [facility] Department [place] [address] * (ABNORMAL) Differential, auto (11/19/2024 6:00 PM SHELTER MONITOR) Neutrophil abs 6.5 1.5 - 6.5 K/cumm Imm gran abs 0.0 0.0 - 0.1 K/cumm [facility] Lymphocyte abs 0.5(L) 0.8 - 3.3 K/cumm [facility] Monocyte abs 0.3 0.2 - 0.8 K/cumm [facility] Eosinophil abs 0.1 0.0 - 0.5 K/cumm [facility] Basophil abs 0.0 0.0 - 0.1 K/cumm [facility] Neutrophil pct 87.7 % [facility] Comment: Interpretive Data Percent cell count reference ranges are not reported, since discordance with absolute values may lead to misinterpretation of CBC data. Current Interpretive Data was last revised on 2018. Imm gran pct 0.3 % [facility] Comment: Interpretive Data Percent cell count reference ranges are not reported, since discordance with absolute values may lead to misinterpretation of CBC data. Current Interpretive Data was last revised on 2018. Lymphocyte pct 6.8 % [facility] Comment: Interpretive Data Percent cell count reference ranges are not reported, since discordance with absolute values may lead to misinterpretation of CBC data. Current Interpretive Data was last revised on 2018. Monocyte pct 3.4 % [facility] Comment: Interpretive Data Percent cell count reference ranges are not reported, since discordance with absolute values may lead to misinterpretation of CBC data. Current Interpretive Data was last revised on 2018. Eosinophil pct 1.5 % [facility] Comment: Interpretive Data Percent cell count reference ranges are not reported, since discordance with absolute values may lead to misinterpretation of CBC data. Current Interpretive Data was last revised on 2018. Basophil pct 0.3 % [facility] Comment: Interpretive Data Percent cell count reference ranges are not reported, since discordance with absolute values may lead to misinterpretation of CBC data. Current Interpretive Data was last revised on 2018. Blood 11/19/2024 6:00 PM SHELTER MONITOR 11/19/2024 6:04 PM SHELTER MONITOR Luca Medrano MD LAB BLOOD ORDERABLES Final R esult Performing Organization Address [facility]/ZIP Co de Phone Number [facility] Department [place] [address] * (ABNORMAL) CBC with auto differential (11/19/2024 6:00 PM SHELTER MONITOR) Pathologist [facility] WBC 7.4 3.8 - 9.9 K/cumm Hgb 11.6(L) 11.9 - 15.5 g/dL [facility] Hct 36.7 35.6 - 45.5 % [facility] Plt 150 150 - 400 K/cumm [facility] MPV 10.6 9.1 - 12.3 fL [facility] RBC 4.22 3.90 - 5.20 M/cumm [facility] MCV 87.0 81.3 - 96.4 fL [facility] MCH 27.5 27.1 - 33.3 pg [facility] MCHC 31.6(L) 32.3 - 35.7 g/dL [facility] RDW CV 14.6 11.1 - 14.9 % [facility] RDW SD 46.1 35.7 - 48.1 fL [facility] NRBC abs 0.00 0.00 - 0.01 K/cumm [facility] Blood 11/19/2024 6:00 PM SHELTER MONITOR 11/19/2024 6:04 PM SHELTER MONITOR us Luca Medrano MD LAB BLOOD ORDERABLES Final R esult [facility] Department [place] [address] * (ABNORMAL) Basic metabolic panel (11/19/2024 6:00 PM SHELTER MONITOR) Pathologist [facility] Sodium 130(L) 135 - 145 mmol/L Potassium, pl 4.3 3.3 - 4.9 mmol/L [facility] Chloride 90(L) 97 - 110 mmol/L [facility] CO2 23 22 - 32 mmol/L [facility] Anion gap 17(H) 2 - 15 mmol/L [facility] BUN 57(H) 6 - 25 mg/dL [facility] Creatinine 13.87(H) 0.60 - 1.10 mg/dL [facility] Glucose 150 70 - 199 mg/dL [facility] Comment: Interpretive Data Fasting glucose >/= [...] 2022. Calcium 6.9(L) 8.5 - 10.3 mg/dL [facility] Blood 11/19/2024 6:00 PM SHELTER MONITOR 11/19/2024 6:04 PM SHELTER MONITOR us Luca Medrano MD LAB BLOOD ORDERABLES Final R esult Performing Organization Address [facility] Co de Phone Number [facility] Department [place] [address] * (ABNORMAL) POCT Activated clotting time, low range (11/19/2024 4:42 PM SHELTER MONITOR) ACT 171(H) 123 - 168 sec POC Performer [id number] [facility] POC Device Number [id number] [facility] Blood 11/19/2024 4:42 PM SHELTER MONITOR 11/19/2024 4:42 PM SHELTER MONITOR Luca Medrano MD LAB POCT ORDERABLES - DEVICE Final Result Performing Organization Address City/[facility]/ZIP Co de Phone Number [facility] Department [place] [address] * (ABNORMAL) POCT Activated clotting time, low range (11/19/2024 3:23 PM SHELTER MONITOR) ACT 266(H) 123 - 168 sec POC Performer [id number] [facility] POC Device Number [id number] [facility] Blood 11/19/2024 3:23 PM SHELTER MONITOR 11/19/2024 3:23 PM SHELTER MONITOR us Luca Medrano MD LAB POCT ORDERABLES - DEVICE Final Result [facility] Department [place] [address] * LEFT HEART CATHETERIZATION WITH CORONARY ANGIOGRAPHY AND WITH AND WITHOUT LEFT VENTRICULOGRAM (11/19/2024 2:50 PM SHELTER MONITOR) Anatomical Region Laterality Modality X-Ray Angiograph y Impressions 11/19/2024 4:18 PM SHELTER MONITOR Very severe stenosis of the vein graft [...] attempt intervention again. I would suggest a [place] 1 0 guiding catheter and consideration for shockwave versus atherectomy. I was present during the entire procedure and personally dictated or confirmed the above report. Luca Medrano MD Narrative 11/19/2024 4:18 PM SHELTER MONITOR Procedure: CORONARY ANGIOGRAM / RIGHT HEART CATHETERIZATION/percutaneous coronary intervention Patient: Estuardo Copeland is a 54 y.o. female : 1970 MR number: [id number] Date of Service: 11/19/2024 Steel Crane Operator: Luca Medrano MD Fellow: Josesito Pabon MD [...] obtained. The patient was brought to the laborer wrecking and salvaging and placed on the table Bilateral groins [...] coronary artery angiogram performed using a 6 Anguillan JR4 catheter Right heart catheterization preformed with VANI Sheridan Percutaneous coronary intervention performed on the Proximal saphenous vein graft to the LAD. This was an ACC/AHA Type C. Initial Lesion Length 12mm and final lesion Length 15mm. Initial KAROLINA Flow 3 with visible thrombus present Final KAROLINA Flow 3. Equipment used: 6 3DRC, [employer] IVUS Catheter, scion blue wire, 0.9 mm laser atherectomy catheter, 2 5 x 15 NC emerge balloon, a 3 0 x 12 mm AngioSculpt balloon, 4 0 by 15 NC emerge balloon, 4 0 x 15 resolute drug-eluting stent, 4 5 x 12 mm NC emerge balloon Attempted intervention on the ostial left main equipment used was a 6 Anguillan JL 3.5 guiding catheter, she on black [...] than 300. We took up a 6 Anguillan 3D RC that sat reasonably well in [...] or perforation. We then took our 6 Anguillan JL 3.5 guiding catheter attempted to intubate [...] right femoral artery and placed a 6 Anguillan Angio-Seal. Manual compression was performed on the venous sheath. COMPLICATIONS: None DIAGNOSTIC Luca Medrano MD CV CARDIAC CATH PROCEDURES F inal Result * (ABNORMAL) POCT Activated clotting time, low range (11/19/2024 2:49 PM SHELTER MONITOR) [facility] Signature ACT 260(H) 123 - 168 sec POC Performer [id number] [facility] POC Device Number [id number] [facility] Blood 11/19/2024 2:49 PM SHELTER MONITOR 11/19/2024 2:49 PM SHELTER MONITOR Luca Medrano MD LAB POCT ORDERABLES - DEVICE Final Result [facility] [place] [address] * (ABNORMAL) POCT Activated clotting time, low range (11/19/2024 2:30 PM SHELTER MONITOR) ACT 385(H) 123 - 168 sec POC Performer [id number] [facility] POC Device Number [id number] [facility] [facility] Blood 11/19/2024 2:30 PM SHELTER MONITOR 11/19/2024 2:30 PM SHELTER MONITOR Luca Medrano MD LAB POCT ORDERABLES - DEVICE Final Result Performing Organization Address [facility] de Phone Number [facility] [place] [address] * (ABNORMAL) POCT Activated clotting time, low range (11/19/2024 2:01 PM SHELTER MONITOR) ACT >400(H) 123 - 168 sec POC Performer [id number] [facility] POC Device Number [id number] [facility] Blood 11/19/2024 2:01 PM SHELTER MONITOR 11/19/2024 2:01 PM SHELTER MONITOR Luca Medrano MD LAB POCT ORDERABLES - DEVICE Final Result Performing Organization Address [facility] de Phone Number [facility] [place] [address] * Type and screen (11/19/2024 2:01 PM SHELTER MONITOR) Pathologist [facility] ABO Rh B Positive Jorge A, indirect Negative [facility] Blood 11/19/2024 2:01 PM SHELTER MONITOR 11/19/2024 2:14 PM SHELTER MONITOR Narrative [facility] - 11/19/2024 3:08 PM SHELTER MONITOR Has the patient had Daratumumab or Isatuximab in the past 6 months?->Unknown Luca Medrano MD LAB BLOOD BANK TEST ORDERABL ES Final Result Performing Organization Address [facility] de Phone Number [facility] [place] [address] * (ABNORMAL) POCT Activated clotting time, low range (11/19/2024 1:53 PM SHELTER MONITOR) ACT >400(H) 123 - 168 sec POC Performer [id number] [facility] POC Device Number [id number] [facility] Blood 11/19/2024 1:53 PM SHELTER MONITOR 11/19/2024 1:53 PM SHELTER MONITOR Luca Medrano MD LAB POCT ORDERABLES - DEVICE Final Result Performing Organization Address [facility] Co de Phone Number [facility] [place] [address] * (ABNORMAL) POCT Activated clotting time, low range (11/19/2024 1:49 PM SHELTER MONITOR) ACT 78(L) 123 - 168 sec POC Performer [id number] [facility] POC Device Number [id number] [facility] Blood 11/19/2024 1:49 PM SHELTER MONITOR 11/19/2024 1:49 PM SHELTER MONITOR Luca Medrano MD LAB POCT ORDERABLES - DEVICE Final Result Performing Organization Address [facility] Co de Phone Number [facility] [place] [address] * (ABNORMAL) POCT oxyhemoglobin (11/19/2024 1:27 PM SHELTER MONITOR) [employer] PRES[employer] Oxyhemoglobin 91.6 >=65.0 % [employer] Hemoglobin 11.2(L) 11.9 - 15.5 g/dL [facility] [employer]ICE PRES[employer] O2 content 14.3(L) 15.0 - 22.0 Vol % [facility] Anatomic Site aPOC Aorta [facility] Blood 11/19/2024 1:27 PM SHELTER MONITOR 11/19/2024 1:27 PM SHELTER MONITOR Luca Medrano MD LAB POCT ORDERABLES - DEVICE Final Result Performing Organization Address [facility] Co de Phone Number [facility] [place] [address] * (ABNORMAL) POCT oxyhemoglobin (11/19/2024 1:26 PM SHELTER MONITOR) [facility] VICE PRESIDENT OF [employer]ODUCT MARKETING Oxyhemoglobin 56.2(L) >=65.0 % [employer] PRES[employer] Hemoglobin 11.0(L) 11.9 - 15.5 g/dL [facility] VICE PRESIDENT OF [employer]ODUCT MARKETING O2 content 8.6(L) 15.0 - 22.0 Vol % [facility] Anatomic Site aPOC Pulm Artery [facility] Blood 11/19/2024 1:26 PM SHELTER MONITOR 11/19/2024 1:26 PM SHELTER MONITOR us Luca Medrano MD LAB POCT ORDERABLES - DEVICE Final Result Performing Organization Address [facility] de Phone Number [facility] [place] [address] * (ABNORMAL) POCT oxyhemoglobin (11/19/2024 1:26 PM SHELTER MONITOR) [facility] VICE PRESIDENT [employer] MARKETING Oxyhemoglobin 56.6(L) >=65.0 % [employer] Hemoglobin 10.9(L) 11.9 - 15.5 g/dL [facility] [employer]ICE [employer] O2 content 8.6(L) 15.0 - 22.0 Vol % [facility] Anatomic Site aPOC Pulm Artery [facility] Blood 11/19/2024 1:26 PM SHELTER MONITOR 11/19/2024 1:26 PM SHELTER MONITOR us Luca Medrano MD LAB POCT ORDERABLES - DEVICE Final Result Performing Organization Address [facility] Co de Phone Number [facility] [place] [address] * POC Blood Gas and Chemistries, Arterial - (11/19/2024 11:45 AM SHELTER MONITOR) [facility] K POC 3.7 3.3 - 4.9 mmol/L Comment: Interpretive Data Not all point of care methods assess for hemolysis. Confirm with instrument and retest K+ if not consistent with clinical signs and symptoms. Current Interpretive Data was last revised on 2024. Blood 11/19/2024 11:4 5 AM SHELTER MONITOR 11/19/2024 11:45 AM SHELTER MONITOR Luca Medrano MD LAB POCT ORDERABLES - DEVICE Final Result Performing Organization Address [facility] Co de Phone Number [facility] Department [place] [address] * ECG 12 lead (11/19/2024 11:16 AM SHELTER MONITOR) [facility] Ventricular Rate EKG/Min 90 BPM [facility] QRS-Interval (MSEC) 84 ms [facility] QT-Interval (MSEC) 404 ms [facility] QTc 494 ms [facility] R [place] 6 degrees [facility] T [place] 144 degrees [facility] Diagnosis Atrial fibrillation Electronic atrial pacemaker Minimal voltage criteria for LVH, may be normal variant ( Oliverio product ) Septal infarct , age undetermined T wave abnormality, consider lateral ischemia Abnormal ECG Confirmed by HARJINDER HANDY M.D ([id number]) on 11/19/2024 3:59:31 PM [facility] 11/19/2024 11:1 6 AM SHELTER MONITOR 11/19/2024 3:59 PM SHELTER MONITOR Luca Medrano MD ECG ORDERABLES Final Result Performing Organization Address [facility] Co de Phone Number [facility] * DEVICE CHECK - IN OFFICE (11/18/2024 11:20 AM SHELTER MONITOR) Anatomical Region Laterality Modality Other 11/18/2024 2:00 AM SHELTER MONITOR Narrative 12/24/2024 9:17 PM SHELTER MONITOR Interpretation Summary: Battery and Leads (BL) Normal parameters noted on battery and lead(s) Presenting Rhythm (NC) Atrial Sensing-Ventricular Sensing (-VS) Arrhythmic events (AE) Atrial fibrillation and/or flutter with controlled ventricular rate Nonsustained VT event(s) identified Anticoagulation (AC) Patient on anticoagulant therapy --- Plavix Procedure Note Lane Ramos MD PhD - 12/24/2024 Interpretation Summary: Battery and Leads (BL) Normal parameters noted on battery and lead(s) Presenting Rhythm (NC) Atrial Sensing-Ventricular Sensing (-VS) Arrhythmic events (AE) Atrial fibrillation and/or flutter with controlled ventricular rate Nonsustained VT event(s) identified Anticoagulation (AC) Patient on anticoagulant therapy --- Plavix Lane Ramos MD PhD [facility] PROCEDURES Final Result * SCAN - LABS (11/17/2024) Provider Scanning Final Result * DEVICE CHECK - REMOTE (11/16/2024 11:06 PM SHELTER MONITOR) Anatomical Region Laterality Modality Other 11/16/2024 11:0 6 PM SHELTER MONITOR Narrative 12/24/2024 9:11 PM SHELTER MONITOR Interpretation Summary: Battery and Leads (BL) Normal parameters noted on battery and lead(s) --- 9.4 yrs remaining longevity (implanted 2018). Lead impedance, sensing, and RA threshold trends stable and appropriate. No RV threshold testing during the monitoring period. No short V-V intervals. Presenting Rhythm (NC) Atrial Sensing-Ventricular Sensing (-VS) --- /VS (SR) [...] period. No short V-V intervals. Presenting Rhythm (NC) Atrial Sensing-Ventricular Sensing (-VS) --- /VS (SR) [...] CBC with auto differential (11/16/2024 1:57 PM SHELTER MONITOR) WBC 7.2 3.4 - 10.8 x10E3/uL [facility] [...] [facility] - 01 Blood 11/16/2024 1:57 PM SHELTER MONITOR 11/16/2024 Narrative [facility] - 11/17/2024 8:14 AM SHELTER MONITOR Performed at: [place] [id number] Global Sales Executive: Marco Antonio Paiz PhD, Phone: [phone] Luca Medrano MD LAB BLOOD ORDERABLES Final [facility] * (ABNORMAL) Basic metabolic panel (11/16/2024 1:57 PM SHELTER MONITOR) [facility] Glucose 88 70 - 99 mg/dL [facility] [...] [facility] - 01 Blood 11/16/2024 1:57 PM SHELTER MONITOR 11/16/2024 Narrative [facility] - 11/17/2024 12:09 PM SHELTER MONITOR Performed at: [address] [id number] Global Sales Executive: Marco Antonio Paiz PhD, Phone: [phone] us Luca Medrano MD LAB BLOOD ORDERABLES Final R [facility]ult [facility] - * TRANSTHORACIC ECHO (TTE) COMPLETE W DOPPLER/CF W CONTRAST (11/10/2024 4:05 PM SHELTER MONITOR) LV EF % CONS SCIMAGE Anatomical Region Laterality Modality Ultrasound 11/10/2024 2:55 PM SHELTER MONITOR Narrative 11/11/2024 9:34 AM SHELTER MONITOR [facility] Cardiac Diagnostic Lab [address] , [address] [place] [address] Transthoracic Echocardiographic Report Patient Name: ESTUARDO COPELAND M : 1970 (54y ) Gender: F Study Date: 11/10/2024 02:55:48 PM Ht(Inch): 64 Wt(Lb): 115.08 BSA: 1.54 Remediation Technician: GERA Wells Location: [facility] Order Provider: LUCA MEDRANO Heart Rate: 76 BMI: 19.75 BP: 94/60 Quality: Technically difficult study due to limited acoustic windows. Ref Provider: LUCA MEDRANO PROCEDURES: Echocardiographic Report: ([id number], [id number], [id number]) Transthoracic complete echo with strain imaging and contrast, 2D, spectral and tissue Doppler, color flow Doppler, M- mode. Additional Procedures: ([id number]) 3D echocardiographic imaging from Echo Machine. Contrast: [...] [ 46.00 - 106.00 ] AI Decel Beauregard 1.58 m/s2 ESV Mod 2C 14.03 ml [...] By: Silver Levin MD 11/11/2024 9:32:57 AM SHELTER MONITOR Electronically Signed By: Silver Levin MD 11/11/2024 9:32:57 AM SHELTER MONITOR Procedure Note Silver Levin MD - 11/11/2024 [facility] Cardiac Diagnostic Lab [address] [place] [address] Transthoracic Echocardiographic Report Patient Name: ESTUARDO COPELAND M : 1970 (54y ) Gender: F Study Date: 11/10/2024 02:55:48 PM Ht(Inch): 64 Wt(Lb): 115.08 BSA: 1.54 Remediation Technician: GERA Wells Location: [facility] Order Provider:LUCA MEDRANO Heart Rate: 76 BMI: 19.75 BP: 94/60 Quality: Technically difficult studydue to limited acoustic windows. Ref Provider: LUCA MEDRANO PROCEDURES: Echocardiographic Report: ([id number], [id number], [id number]) Transthoracic completeecho with strain imaging and contrast, 2D, spectral and tissue Doppler, color flow Doppler,M- mode. Additional Procedures: ([id number]) [facility] Contrast: 0.4 ml Optison Administered, (2.6 ml [...] EDV Mod 4C 60.63 ml AI Decel Dzem7745.11 sec EDV Mod BP 56.21 ml [ 46.00 - 106.00 ] AI Decel Slope1.58 m/s2 ESV Mod 2C 14.03 ml AI BPL937.67 msec ESV Mod 4C 21.21 ml MV [...] cm LA Length 4C 5.48 cm MV HDP831.85 msec [ 20.00 - 100.00 ] LA Volume 2C 34.1 ml MVA PHT2.18 cm2 LA Volume 4C 31.3 ml MV Decel Fxpg780.53 msec [ 104.00 - 258.00 ] LA [...] cm [ 2.70 - 3.70 ] MR WEL273.8 cm Ao Root Index 1.32 cm/m2 MR [...] By: Silver Levin MD 11/11/2024 9:32:57 AM SHELTER MONITOR Electronically Signed By: Silver Levin MD 11/11/2024 9:32:57 AM SHELTER MONITOR Luca Medrano MD CV ECHO PROCEDURES Final Res ult * HLA Antibody Screen by PRA or SAB per Schedule (Class I and Class II) (11/05/2024 10:00 AM SHELTER MONITOR) Blood 11/05/2024 10:0 0 AM SHELTER MONITOR Narrative [facility] - SHELTER MONITOR Sample received in lab and stored. No testing performed at this time. us Salina Hector MD LAB BLOOD ORDERABLES Final Resul t [facility] * Hepatitis C antibody (03/06/2023 10:19 AM CDT) Hep C Ab Nonreactive Nonreactive [facility] Comment:Antibodies to HCV no t detected. Does NOT exclude the possibility of recent exposure to HCV. Current interpretive data was last revised on 22 Blood 03/06/2023 10:1 9 AM CDT 03/06/2023 10:38 AM CDT us Maria Fernanda Bryant MD LAB MICROBIOLOGY - GENERAL ORDERABLES Final Result Performing Organization Address City/[facility]/ZIP Co de Phone Number [facility] Department [place] [address] from Last 3 Months or Most Recently Relevant to Health Maintenance Insurance [facility] Address: [address] [address] [place] [address] MEDICARE [facility] CHO[facility] Address: [address] [address] [place] [address] [facility] Address: [address] [address] [place] [address] MEDICARE MEDICARE [facility] Address: [address] [address] [place] [address] MEDICARE [employer] Advance Directives For more information, please contact: [phone] * Full Code (Latest Code Status on [...] 5:04 PM 08/03/2022 10:09 PM Care Teams Respiratory Care Program Director Relationship Specialty Start Date End Date Pal Downey DO PCP - General Internal Medicine 01/25/21 Quinton Rowan MD Referring Physician Cardiology 01/09/19 Tami Flores, TONO [address] [address] Registered Nurse Livestock Buyer 01/25/21 Cricket Escalante MD [address] [address] Referring Physician Nephrology 03/24/21 Gael Sprague MD PhD [address] [address] Fellow Endocrinology Diabetes & Metabolism 03/24/21 Brad Turner MD [address] [address] Consulting Physician Obstetrics and Gynecology 03/24/21 Margarita Montoya MD [address] [id number] Consulting Physician Trauma Surgery 12/27/21 Luca Medrano MD [address] [address] Consulting Physician Cardiology 08/03/22 Pb Galloway MD [address] [id number] [place] [address] Cardiothoracic Surgery 05/25/24 Felipe Gerber MD [address] [phone] [place] [address] Consulting Physician Cardiology 05/25/24
--- OUTSIDE RECORDS SUMMARY | 2025-01-12 18:16 | XMS_ITS ---
Author Organization [facility] Address [address] [place] [address] Care Team Providers Care Swimming Pool Salesperson Name Role Phone Quinton Rowan MD Unavailable [phone] Pal Downey DO Primary Care Provider [phone] Tami Flores RN Unavailable Cricket Escalante MD Unavailable [phone] Gael Sprague MD PhD Unavailable Brad Turner MD Unavailable [phone] Margarita Montoya MD Unavailable Luca Medrano MD Unavailable Pb Galloway MD Unavailable eFlipe Gerber MD Unavailable [phone] Dialysis Access Sites Type Status Location [...] AND CHEMISTRIES, VENOUS Routine 12/25/2024 2:21 PM CUTTER AND PRESSER EGFR Routine 12/25/2024 1:19 PM [employer]TER AND PRESSER CRITICAL RESULT CALLBACK CHEMISTRY Routine 12/25/2024 1:19 PM [employer]TER AND PRESSER DIFFERENTIAL AUTO Routine 12/25/2024 1:1 9 PM [employer]TER AND PRESSER CBC WITH AUTO DIFFERENTIAL Routine 12/25/2024 1:19 PM [employer]TER AND PRESSER BASIC METABOLIC PANEL Routine 12/25/2024 1:19 PM C[employer]TER AND PRESSER KARINA MAJOR CORONARY Routine 12/25/2024 10 :05 AM C[employer]TER AND PRESSER Chest pain, unspecified type POCT ACTIVATED CLOTTING TIME, LOW RANGE Routine 12/25/2024 10:05 AM C[employer]TER AND PRESSER POCT ACTIVATED CLOTTING TIME, LOW RANGE Routine 12/25/2024 9:24 AM C[employer]TER AND PRESSER POCT ACTIVATED CLOTTING TIME, LOW RANGE Routine 12/25/2024 8:58 AM C[employer]TER AND PRESSER TYPE AND SCREEN Timed 12/25/2024 8:13 AM CUTTER AND PRESSER POC BLOOD GAS AND CHEMISTRIES, ARTERIAL Routine 12/25/2024 8:12 AM C[employer]TER AND PRESSER POC BLOOD GAS AND CHEMISTRIES, ARTERIAL Routine 12/25/2024 8:08 AM C[employer]TER AND PRESSER ECG 12-LEAD Routine 12/25/2024 6:56 AM CUTTER AND PRESSER SCAN - LABS 12/24/2024 SCAN - LABS 12/22/2024 CBC WITH AUTO DIFFERENTIAL Routine 12/21/2024 12:48 PM [employer]TER AND PRESSER Chest pain, unspecified type BASIC METABOLIC PANEL Routine 12/21/2024 12:48 PM [employer]TER AND PRESSER Chest pain, unspecified type HLA ANTIBODY SCREEN - SAB (CLASS I AND CLASS II) Routine 11/27/2024 10:00 AM C[employer]TER AND PRESSER ESRD (end stage renal disease) (HCC) HLA ANTIBODY SCREEN BY PRA OR SAB PER SCHEDULE (CLASS I AND CLASS II) Routine 11/27/2024 10:00 AM C[employer]TER AND PRESSER ESRD (end stage renal disease) (HCC) EGFR Routine 11/19/2024 6:00 PM C[employer]TER AND PRESSER DIFFERENTIAL AUTO Routine 11/19/2024 6:0 0 PM [employer]TER AND PRESSER CBC WITH AUTO DIFFERENTIAL Routine 11/19/2024 6:00 PM C[employer]TER AND PRESSER BASIC METABOLIC PANEL Routine 11/19/2024 6:00 PM CUTTER AND PRESSER POCT ACTIVATED CLOTTING TIME, LOW RANGE Routine 11/19/2024 4:42 PM CUTTER AND PRESSER POCT ACTIVATED CLOTTING TIME, LOW RANGE Routine 11/19/2024 3:23 PM CUTTER AND PRESSER LEFT HEART CATHETERIZATION WITH CORONARY ANGIOGRAPHY AND WITH AND WITHOUT LEFT VENTRICULOGRAM Routine 11/19/2024 2:50 PM C[employer]TER AND PRESSER Chest pain, unspecified type POCT ACTIVATED CLOTTING TIME, LOW RANGE Routine 11/19/2024 2:49 PM CUTTER AND PRESSER POCT ACTIVATED CLOTTING TIME, LOW RANGE Routine 11/19/2024 2:30 PM CUTTER AND PRESSER POCT ACTIVATED CLOTTING TIME, LOW RANGE Routine 11/19/2024 2:01 PM CUTTER AND PRESSER TYPE AND SCREEN Timed 11/19/2024 2:01 PM CUTTER AND PRESSER POCT ACTIVATED CLOTTING TIME, LOW RANGE Routine 11/19/2024 1:53 PM CUTTER AND PRESSER POCT ACTIVATED CLOTTING TIME, LOW RANGE Routine 11/19/2024 1:49 PM C[employer]TER AND PRESSER POCT OXYHEMOGLOBIN - DEVICE Routine 11/19/2024 1:27 PM C[employer]TER AND PRESSER POCT OXYHEMOGLOBIN - DEVICE Routine 11/19/2024 1:26 PM C[employer]TER AND PRESSER POCT OXYHEMOGLOBIN - DEVICE Routine 11/19/2024 1:26 PM CUTTER AND PRESSER POC BLOOD GAS AND CHEMISTRIES, ARTERIAL Routine 11/19/2024 11:45 AM C[employer]TER AND PRESSER ECG 12-LEAD Routine 11/19/2024 11:16 AM C[employer]TER AND PRESSER DEVICE CHECK - IN OFFICE Routine 11/18/2024 11:20 AM C[employer]TER AND PRESSER Fitting or adjustment of cardiac pacemaker SSS (sick sinus syndrome) (HCC) SCAN - LABS 11/17/2024 DEVICE CHECK - REMOTE Routine 11/16/2024 11:06 PM CUTTER AND PRESSER CBC WITH AUTO DIFFERENTIAL Routine 11/16/2024 1:57 PM CUTTER AND PRESSER S/P TAVR (transcatheter aortic valve replacement) Chest pain, unspecified type BASIC METABOLIC PANEL Routine 11/16/2024 1:57 PM C[employer]TER AND PRESSER S/P TAVR (transcatheter aortic valve replacement) Chest pain, unspecified type TRANSTHORACIC ECHO (TTE) COMPLETE W DOPPLER/CF W CONTRAST Routine 11/10/2024 4:05 PM C[employer]TER AND PRESSER Acute diastolic heart failure (HCC) HLA ANTIBODY SCREEN BY PRA OR SAB PER SCHEDULE (CLASS I AND CLASS II) Routine 11/05/2024 10:00 AM CUTTER AND PRESSER ESRD (end stage renal disease) (HCC) HEPATITIS [...] (02/01/2022): Added automatically from request for surgery [id number] Disorder of peritoneal dialysis catheter 022 Overview (12/22/2021): Added automatically from request for surgery [id number] Chronic kidney disease, stage V 10/31/2021 Overview (08/21/2023): Added automatically from request for surgery [id number] Sick sinus syndrome 11/02/2020 Diastolic heart failure [...] Assessment & Plan (02/11/2019 6:16 PM CDT): [facility] with 95% LAD lesion, had some RV dysfunction during AV repair and found to have RCA occlusion following LAD bypass - s/p IABP placement - CABG to LAD and LCA - on Epi and Milrinone of inotropy Assessment & Plan (02/08/2019 5:38 PM CDT): -Patient w/ chest pain/SOB along w/ significant troponin elevation -Plan for [facility] w/ possible PCI tomorrow pending results [...] to 4.35 - valve team consulted, 02/09 [facility] with severe 1 vessel disease of [...] (02/09/2019): Added automatically from request for surgery [id number] Assessment & Plan (05/17/2019 9:19 AM CDT): [...] (02/10/2019): Added automatically from request for surgery [id number] Assessment & Plan (05/24/2024 11:21 AM CDT): [...] with left shoulder pain similar to previous [place] -EKG changes per OSH --Slight elevation in [...] currently stable Daily BMPs, while inpatient 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 Escalante Continue lasix 40 mg [...] kidney disease, baseline Cr 2.4-2.6. 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 Apparently discussions for potential need for renal txp being discussed. - Cr at baseline on adm - avoid nephrotoxins, renally dose meds - continue calcitriol 0.5 mcg/day - Cr 2.75, received pre-cath hydration, stable 2.7 Headache 05/02/2016 Moderate COPD (chronic obstr uctive pulmonary disease) ([facility]) 11/02/2015 Assessment & Plan (08/02/2022 5:33 PM [...] Hitesh TAVR 05/21 Followed by [facility], Dr. Medrano. CT TAVR on [...] not a candidate for intervention (declined by [facility], [facility]) Assessment & Plan (05/17/2019 9:28 [...] AV. Referred to valve team by primary antique dealer Dr. Rowan. Seen 02/02 by valve team [...] for TAVR, needs SAVR, CTS consulted Immunizations Immunization Administration Dates Next Due Hep [...] on file Legal Sex Female 4:06 AM [employer] PRESSER Gender Identity Female 01/16/2024 11:18 AM CDT Sexual Orientation Straight 01/16/2024 11 :18 AM CDT Last Filed Vital Signs Vital Sign Reading Time Taken Comments Blood Pressure 90/66 12/25/2024 3:23 PM [employer] PRESSER Pulse 77 12/25/2024 3:23 PM [employer]TER AND PRESSER Temperature 36.6 C (97.9 F) 12/25/2024 7:30 AM C[employer]TER AND PRESSER Respiratory Rate 18 12/25/2024 3:23 PM [employer]TER AND PRESSER Oxygen Saturation 92% 12/25/2024 2:03 PM [employer]TER AND PRESSER Inhaled Oxygen Concentration - - Weight 55.9 kg (123 lb 3.8 oz) 12/25/2024 7:30 A M [employer] PR[employer]ER Height 162.6 cm (5' 4 ) 12/25/2024 7:30 AM [employer]TER AND PRESSER Body Mass Index 21.15 12/25/2024 7:30 AM C[employer]TER AND PRESSER Results * HLA Antibody Screen by PRA or SAB per Schedule (Class I and Class II) (01/04/2025 10:00 AM CDT) Blood 01/04/2025 10:0 0 AM CDT Narrative [facility] - C[facility]TER [employer] PRESSER Sample received in lab and stored. No testing performed at this time. us Salina Hector MD LAB BLOOD ORDERABLES Final Resul t [facility] * (ABNORMAL) POC Blood Gas and Chemistries, Venous - (12/25/2024 2:21 PM C[employer]TER AND PRESSER) pH, Azeb POC 7.29(L) 7.32 - 7.43 pCO2, azeb POC 47 40 - [address] [facility] pO2, azeb POC 29 mmHg [facility] Na, POC 131(L) 135 - 145 mmol/L [facility] K POC 5.3(H) 3.3 - 4.9 mmol/L [facility] Comment: Interpretive Data Not all point of care methods assess for hemolysis. Confirm with instrument and retest K+ if not consistent with clinical signs and symptoms. Current Interpretive Data was last revised on 2024. Cl, POC 101 97 - 110 mmol/L [facility] Ionized Ca, POC 3.10(C) 4.50 - 5.10 mg/dL [facility] Glucose, POC 137 70 - 199 mg/dL [facility] Lactate, POC 1.1 0.7 - 2.0 mmol/L [facility] O2 Sat, Azeb POC (Nevin) 38 % [facility] Base excess, POC -4.0 mmol/L [facility] HCO3, Azeb POC 23 20 - 30 mmol/L [facility] Hct, POC 33.0(L) 36.3 - 45.3 % [facility] Total Hb, POC 11.1(L) 11.9 - 15.5 g/dL [facility] Blood 12/25/2024 2:21 PM C[employer]TER AND PRESSER 12/25/2024 2:21 PM C[employer]TER AND PRESSER Luca Medrano MD LAB POCT ORDERABLES - DEVICE Final Result [facility] Department [place] [address] * (ABNORMAL) eGFR (12/25/2024 1:19 PM CUTTER AND PRESSER) [facility] eGFR 3(L) >=60 mL/min/1. 73 m2 Comment: [...] of Race in Diagnosing Kidney Disease, JASN 202). The CKD-EPI equation should not be used for patients with unstable renal function and has not been validated in children and those over 70. Current interpretive data was last reviewed 2021. Blood 12/25/2024 1:19 PM C[employer]TER AND PRESSER 12/25/2024 1:30 PM C[employer]TER AND PRESSER Luca Medrano MD LAB BLOOD ORDERABLES Final R esult [facility] Department [place] [address] * (ABNORMAL) Differential, auto (12/25/2024 1:19 PM C[employer]TER AND PRESSER) Neutrophil abs 5.1 1.5 - 6.5 K/cumm Imm gran abs 0.0 0.0 - 0.1 K/cumm [facility] Lymphocyte abs 0.7(L) 0.8 - 3.3 K/cumm [facility] Monocyte abs 0.4 0.2 - 0.8 K/cumm [facility] Eosinophil abs 0.1 0.0 - 0.5 K/cumm [facility] Basophil abs 0.0 0.0 - 0.1 K/cumm [facility] Neutrophil pct 80.1 % [facility] Comment: Interpretive Data Percent cell count reference ranges are not reported, since discordance with absolute values may lead to misinterpretation of CBC data. Current Interpretive Data was last revised on 2018. Imm gran pct 0.5 % [facility] Comment: Interpretive Data Percent cell count reference ranges are not reported, since discordance with absolute values may lead to misinterpretation of CBC data. Current Interpretive Data was last revised on 2018. Lymphocyte pct 11.3 % [facility] Comment: Interpretive Data Percent cell count reference ranges are not reported, since discordance with absolute values may lead to misinterpretation of CBC data. Current Interpretive Data was last revised on 2018. Monocyte pct 6.0 % [facility] Comment: Interpretive Data Percent cell count reference ranges are not reported, since discordance with absolute values may lead to misinterpretation of CBC data. Current Interpretive Data was last revised on 2018. Eosinophil pct 1.6 % [facility] Comment: Interpretive Data Percent cell count reference ranges are not reported, since discordance with absolute values may lead to misinterpretation of CBC data. Current Interpretive Data was last revised on 2018. Basophil pct 0.5 % [facility] Comment: Interpretive Data Percent cell count reference ranges are not reported, since discordance with absolute values may lead to misinterpretation of CBC data. Current Interpretive Data was last revised on 2018. Blood 12/25/2024 1:19 PM C[employer]TER AND PRESSER 12/25/2024 1:30 PM C[employer]TER AND PRESSER us Luca Medrano MD LAB BLOOD ORDERABLES Final R esult [facility] Department [place] [email or web address] [place] [address] * Critical Result Callback Chemistry (12/25/2024 1:19 PM CUTTER AND PRESSER) Date Notified [id number] Time Notified 0 [facility] TestName Potassium Plas Calcium [facility] DOMINGUEZ Called/Read Back Grisel DOMINGUEZ Credentials RN [facility] DOMINGUEZ Called By NELSON DOMINGUEZ Blood 12/25/2024 1:19 PM [employer]TER AND PRESSER 12/25/2024 1:30 PM C[employer]TER AND PRESSER Luca Medrano MD LAB BLOOD ORDERABLES Final R esult [facility] Department [place] [address] * (ABNORMAL) CBC with auto differential (12/25/2024 1:19 PM CUTTER AND PRESSER) [facility] WBC 6.3 3.8 - 9.9 K/cumm Hgb 11.2(L) 11.9 - 15.5 g/dL [facility] Hct 36.0 35.6 - 45.5 % [facility] Plt 106(L) 150 - 400 K/cumm [facility] MPV 10.1 9.1 - 12.[address] [facility] RBC 3.99 3.90 - 5.20 M/cumm [facility] MCV 90.2 81.3 - 96.[address] [facility] MCH 28.1 27.1 - 33.[address] [facility] MCHC 31.1(L) 32.3 - 35.7 g/dL [facility] RDW CV 15.4(H) 11.1 - 14.9 % [facility] RDW SD 50.8(H) 35.7 - 48.[address] [facility] NRBC abs 0.00 0.00 - 0.01 K/cumm [facility] Blood 12/25/2024 1:19 PM C[employer]TER AND PRESSER 12/25/2024 1:30 PM C[employer]TER AND PRESSER Luca Medrano MD LAB BLOOD ORDERABLES Final R esult [facility] Department [place] [address] * (ABNORMAL) Basic metabolic panel (12/25/2024 1:19 PM CUTTER AND PRESSER) [facility] Sodium 135 135 - 145 mmol/L Potassium, pl 6.3(C) 3.3 - 4.9 mmol/L [facility] Chloride 95(L) 97 - 110 mmol/L [facility] CO2 23 22 - 32 mmol/L [facility] Anion gap 17(H) 2 - 15 mmol/L [facility] BUN 59(H) 6 - 25 mg/dL [facility] Creatinine 15.37(H) 0.60 - 1.10 mg/dL [facility] Glucose 142 70 - 199 mg/dL [facility] Comment: Interpretive Data Fasting glucose [...] 2022. Calcium 5.7(C) 8.5 - 10.3 mg/dL [facility] Blood 12/25/2024 1:19 PM C[employer]TER AND PRESSER 12/25/2024 1:30 PM CUTTER AND PRESSER us Luca Medrano MD LAB BLOOD ORDERABLES Final R esult [facility] Department [place] [address] * KARINA MAJOR CORONARY (12/25/2024 10:05 AM CUTTER AND PRESSER) Anatomical Region Laterality Modality X-Ray Angiograph y Impressions 12/25/2024 3:40 PM [employer]TER AND PRESSER Severely calcified left main stenosis status post [...] Luca Medrano MD Narrative 12/25/2024 3:40 PM [employer]TER AND PRESSER Table formatting from the original result was not included. Procedure: CORONARY ANGIOGRAM / PERCUTANEOUS CORONARY INTERVENTION Patient: Estuardo Copeland is a 54 y.o. female : 1970 MR number: [id number] Date of Service: 12/25/2024 Presidential Support Specialist: Luca Medrano MD Fellow: Sanket Quiroz MD [...] The patient was brought to the laborer hoisting and placed on the table Bilateral groins [...] Flow 3. Equipment used: 7 JL 3.0, [employer] Russell IVUS Catheter, whisper wire, 2 0 x 12 emerge balloon, 225 x 12 NC emerge balloon, 2 5 x 12 NC emerge balloon, 2 5 shockwave lithotripsy balloon, 6 Czech GuideLiner Coast, 2 5 x 12 mm [...] right common femoral artery and a 7 Czech sheath inserted without difficulty. Next we took a 7 Czech JL 3 guiding catheter up and sat [...] was unsuccessful. We then placed a 6 Czech GuideLiner down from with an additional 225 [...] clotting time, low range (12/25/2024 10:05 AM CUTTER AND PRESSER) [facility] ACT 298(H) 123 - 168 sec POC Performer [id number] [facility] POC Device Number [id number] [facility] Blood 12/25/2024 10:0 5 AM C[employer]TER AND PRESSER 12/25/2024 10:05 AM CUTTER AND PRESSER us Luca Medrano MD LAB POCT ORDERABLES - DEVICE Final Result Performing Organization Address [facility] Co de Phone Number [facility] [place] [address] * (ABNORMAL) POCT Activated clotting time, low range (12/25/2024 9:24 AM CUTTER AND PRESSER) ACT 329(H) 123 - 168 sec POC Performer [id number] [facility] POC Device Number [id number] [facility] Blood 12/25/2024 9:24 AM C[employer]TER AND PRESSER 12/25/2024 9:24 AM CUTTER AND PRESSER us Luca Medrano MD LAB POCT ORDERABLES - DEVICE Final Result Performing Organization Address [facility] de Phone Number [facility] [place] [address] * (ABNORMAL) POCT Activated clotting time, low range (12/25/2024 8:58 AM CUTTER AND PRESSER) ACT >400(H) 123 - 168 sec POC Performer [id number] [facility] POC Device Number [id number] [facility] Blood 12/25/2024 8:58 AM CUTTER AND PRESSER 12/25/2024 8:58 AM C[employer]TER AND PRESSER us Luca Medrano MD LAB POCT ORDERABLES - DEVICE Final Result Performing Organization Address [facility] [place] [address] * Type and screen (12/25/2024 8:13 AM CUTTER AND PRESSER) ABO Rh B Positive Jorge A, indirect Negative [facility] Blood 12/25/2024 8:13 AM C[employer]TER AND PRESSER 12/25/2024 8:20 AM C[employer]TER AND PRESSER Narrative [facility] - 12/25/2024 9:11 AM CUTTER AND PRESSER Has the patient had Daratumumab or Isatuximab in the past 6 months?->Unknown Luca Medrano MD LAB BLOOD BANK TEST ORDERABL ES Final Result [facility] Department [place] [address] * (ABNORMAL) POC Blood Gas and Chemistries, Arterial - (12/25/2024 8:12 AM CUTTER AND PRESSER) pH, Art POC 7.39 7.35 - 7.45 pCO2, Art POC 32(L) 35 - 45 mmHg [facility] pO2, Art POC 84 83 - 108 mmHg [facility] Na, POC 135 135 - 145 mmol/L [facility] K POC 5.5(H) 3.3 - 4.9 mmol/L [facility] Comment: Interpretive Data Not all point of care methods assess for hemolysis. Confirm with instrument and retest K+ if not consistent with clinical signs and symptoms. Current Interpretive Data was last revised on 2024. Cl, POC 101 97 - 110 mmol/L [facility] Ionized Ca, POC 2.96(C) 4.50 - 5.10 mg/dL [facility] Glucose, POC 88 70 - 199 mg/dL [facility] Lactate, POC 1.1 0.7 - 2.0 mmol/L [facility] SO2 (nevin) arterial 96(H) 90 - 95 % [facility] Base excess, POC -4.7 mmol/L [facility] HCO3, Art POC 19(L) 20 - 30 mmol/L [facility] Hct, POC 36.0(L) 36.3 - 45.3 % [facility] Total Hb, POC 11.9 11.9 - 15.5 g/dL [facility] Blood 12/25/2024 8:12 AM CUTTER AND PRESSER 12/25/2024 8:12 AM CUTTER AND PRESSER Luca Medrano MD LAB POCT ORDERABLES - DEVICE Final Result Performing Organization Address [facility] de [facility] Number [facility] [place] [address] * (ABNORMAL) POC Blood Gas and Chemistries, Arterial - (12/25/2024 8:08 AM CUTTER AND PRESSER) Pathologist [facility] K POC 5.2(H) 3.3 - 4.9 mmol/L Comment: Interpretive Data Not all point of care methods assess for hemolysis. Confirm with instrument and retest K+ if not consistent with clinical signs and symptoms. Current Interpretive Data was last revised on 2024. Blood 12/25/2024 8:08 AM CUTTER AND PRESSER 12/25/2024 8:08 AM CUTTER AND PRESSER us Luca Medrano MD LAB POCT ORDERABLES - DEVICE Final Result Performing Organization Address [facility] de Phone Number [facility] Department [place] [address] * ECG 12 lead (12/25/2024 6:56 AM CUTTER AND PRESSER) [facility] Ventricular Rate EKG/Min 82 BPM [facility] Atrial Rate 82 BPM [facility] QRS-Interval (MSEC) 86 ms [facility] QT-Interval (MSEC) 410 ms [facility] QTc 479 ms [facility] R [place] -10 degrees [facility] T [place] 155 degrees [facility] Diagnosis atrial-paced complexes Premature atrial complexes in a pattern of bigeminy Minimal voltage criteria for LVH, may be normal variant ( Shoup product ) Septal infarct , age undetermined T wave abnormality, consider lateral ischemia Abnormal ECG When compared with ECG of 19-NOV-2024 11:16, no significant change Confirmed by HARJINDER HANDY M.D ([id number]) on 01/06/2025 3:41:43 PM [facility] 12/25/2024 6:56 AM CUTTER AND PRESSER 01/06/2025 3:41 PM CDT us Luca Medrano MD ECG ORDERABLES Final Result [facility] * SCAN - LABS (12/24/2024) us Provider Scanning Final Result * SCAN - LABS (12/22/2024) us Provider Scanning Final Result * (ABNORMAL) CBC with auto differential (12/21/2024 12:48 PM CUTTER AND PRESSER) Pathologist [facility] WBC 7.0 3.4 - 10.8 x10E3/uL [facility] [...] - 01 Blood 12/21/2024 12:4 8 PM C[employer]TER AND PRESSER 12/21/2024 Narrative [facility] - 12/22/2024 7:09 AM CUTTER AND PRESSER Performed at: [address] [place] [id number] Molecular Modeler: Marco Antonio Paiz PhD, Phone: [phone] Luca Medrano MD LAB BLOOD ORDERABLES Final R esult [facility] - 01 * (ABNORMAL) Basic metabolic panel (12/21/2024 12:48 PM CUTTER AND PRESSER) [facility] Glucose 85 70 - 99 mg/dL [facility] [...] repeat analysis Blood 12/21/2024 12:4 8 PM C[employer]TER AND PRESSER 12/21/2024 Narrative [facility] - 12/22/2024 2:10 PM C[employer]TER AND PRESSER Performed at: [address] [id number] Molecular Modeler: Marco Antonio Paiz PhD, Phone: [phone] Specimen Comment: Called/faxed to DIANA DACOSTA on 12/22/2024 at 13:44 ET Specimen Comment: for tests Creatinine; Calcium us Luca Medrano MD LAB BLOOD ORDERABLES Final R esult [facility] - 01 * HLA Antibody Screen by PRA or SAB per Schedule (Class I and Class II) (11/27/2024 10:00 AM CUTTER AND PRESSER) Blood 11/27/2024 10:0 0 AM C[employer]TER AND PRESSER Narrative [facility] - CUTTER AND PRESSER Sample received in lab. Single Antigen Antibody Screen ordered. us Salina Hector MD LAB BLOOD ORDERABLES Final Resul t [facility] * HLA Antibody Screen - SAB (Class I and Class II) (11/27/2024 10:00 AM CUTTER AND PRESSER) Class I Treatment EDTA [facility] Class I [...] Risk DPB1*01:01 [facility] 11/27/2024 10:0 0 AM C[employer]TER AND PRESSER 12/03/2024 1:32 PM CUTTER AND PRESSER Narrative [facility] - 12/03/2024 1:32 PM CUTTER AND PRESSER Single-antigen HLA antibody screen is performed on serum samples using a method developed and validated by the [facility] HLA laboratory based on an FDA-approved IVD kit (LABScreen Single-Antigen, [employer], [place], [place]). All patient serum samples are pretreated with EDTA before the screen to prevent complement interference. Additional serum treatments, such as adsorption and DTT treatment, may be performed as indicated. Interpretive comments: Low risk: MFI [id number]. Moderate risk: MFI [id number]. Increased risk: MFI >/= 5000. The presence [...] antigens to avoid. Testing performed at the [facility], [address] [place] [address], 5th floor, [place], [address]. IA # [id number]. Rosa Millan, Ph.D., Networks Computer Consultant, [facility] Wilmer Prescott M.D., Ph.D., Gear Design Engineer, [facility] Alma Payton, Ph.D., CLIA Gear Design Engineer, Clinical Laboratories Current methodology and interpretive comments last revised on 11/15/2022. us Salina Hector MD LAB BLOOD ORDERABLES Final Resul t [facility] * (ABNORMAL) eGFR (11/19/2024 6:00 PM CUTTER AND PRESSER) eGFR 3(L) >=60 mL/min/1. 73 m2 Comment: [...] last reviewed 2021. Blood 11/19/2024 6:00 PM CUTTER AND PRESSER 11/19/2024 6:10 PM CUTTER AND PRESSER us Luca Medrano MD LAB BLOOD ORDERABLES Final R esult [facility] Department [place] [address] * (ABNORMAL) Differential, auto (11/19/2024 6:00 PM CUTTER AND PRESSER) Pathologist [facility] Neutrophil abs 6.5 1.5 - 6.5 K/cumm Imm gran abs 0.0 0.0 - 0.1 K/cumm [facility] Lymphocyte abs 0.5(L) 0.8 - 3.3 K/cumm [facility] Monocyte abs 0.3 0.2 - 0.8 K/cumm [facility] Eosinophil abs 0.1 0.0 - 0.5 K/cumm [facility] Basophil abs 0.0 0.0 - 0.1 K/cumm [facility] Neutrophil pct 87.7 % [facility] Comment: Interpretive Data Percent cell count reference ranges are not reported, since discordance with absolute values may lead to misinterpretation of CBC data. Current Interpretive Data was last revised on 2018. Imm gran pct 0.3 % [facility] Comment: Interpretive Data Percent cell count reference ranges are not reported, since discordance with absolute values may lead to misinterpretation of CBC data. Current Interpretive Data was last revised on 2018. Lymphocyte pct 6.8 % [facility] Comment: Interpretive Data Percent cell count reference ranges are not reported, since discordance with absolute values may lead to misinterpretation of CBC data. Current Interpretive Data was last revised on 2018. Monocyte pct 3.4 % [facility] Comment: Interpretive Data Percent cell count reference ranges are not reported, since discordance with absolute values may lead to misinterpretation of CBC data. Current Interpretive Data was last revised on 2018. Eosinophil pct 1.5 % [facility] Comment: Interpretive Data Percent cell count reference ranges are not reported, since discordance with absolute values may lead to misinterpretation of CBC data. Current Interpretive Data was last revised on 2018. Basophil pct 0.3 % [facility] Comment: Interpretive Data Percent cell count reference ranges are not reported, since discordance with absolute values may lead to misinterpretation of CBC data. Current Interpretive Data was last revised on 2018. Blood 11/19/2024 6:0 0 PM CUTTER AND PRESSER 11/19/2024 6:04 PM CUTTER AND PRESSER us Luca Medrano MD LAB BLOOD ORDERABLES Final R esult [facility] Department [place] [address] * (ABNORMAL) CBC with auto differential (11/19/2024 6:00 PM CUTTER AND PRESSER) WBC 7.4 3.8 - 9.9 K/cumm Hgb 11.6(L) 11.9 - 15.5 g/dL [facility] Hct 36.7 35.6 - 45.5 % [facility] Plt 150 150 - 400 K/cumm [facility] MPV 10.6 9.1 - 12.[address] [facility] RBC 4.22 3.90 - 5.20 M/cumm [facility] MCV 87.0 81.3 - 96.[address] [facility] MCH 27.5 27.1 - 33.[address] [facility] MCHC 31.6(L) 32.3 - 35.7 g/dL [facility] RDW CV 14.6 11.1 - 14.9 % [facility] RDW SD 46.1 35.7 - 48.[address] [facility] NRBC abs 0.00 0.00 - 0.01 K/cumm [facility] Blood 11/19/2024 6:00 PM CUTTER AND PRESSER 11/19/2024 6:04 PM CUTTER AND PRESSER Luca Medrano MD LAB BLOOD ORDERABLES Final R esult [facility] [address] [facility] Department [place] [address] * (ABNORMAL) Basic metabolic panel (11/19/2024 6:00 PM CUTTER AND PRESSER) Sodium 130(L) 135 - 145 mmol/L Potassium, pl 4.3 3.3 - 4.9 mmol/L [facility] Chloride 90(L) 97 - 110 mmol/L [facility] CO2 23 22 - 32 mmol/L [facility] Anion gap 17(H) 2 - 15 mmol/L [facility] BUN 57(H) 6 - 25 mg/dL [facility] Creatinine 13.87(H) 0.60 - 1.10 mg/dL [facility] Glucose 150 70 - 199 mg/dL [facility] Comment: Interpretive Data Fasting glucose [...] 6.9(L) 8.5 - 10.3 mg/dL [facility] Blood 11/19/2024 6:00 PM CUTTER AND PRESSER 11/19/2024 6:04 PM CUTTER AND PRESSER us Luca Medrano MD LAB BLOOD ORDERABLES Final R esult Performing Organization Address [facility] Co de Phone Number [facility] [email or web address] [address] * (ABNORMAL) POCT Activated clotting time, low range (11/19/2024 4:42 PM CUTTER AND PRESSER) ACT 171(H) 123 - 168 sec POC Performer [id number] [facility] POC Device Number [id number] [facility] Blood 11/19/2024 4:42 PM CUTTER AND PRESSER 11/19/2024 4:42 PM CUTTER AND PRESSER us Luca Medrano MD LAB POCT ORDERABLES - DEVICE Final Result Performing Organization Address [facility] de Phone Number [facility] [email or web address] [address] * (ABNORMAL) POCT Activated clotting time, low range (11/19/2024 3:23 PM CUTTER AND PRESSER) ACT 266(H) 123 - 168 sec POC Performer [id number] [facility] POC Device Number [id number] [facility] Blood 11/19/2024 3:23 PM CUTTER AND PRESSER 11/19/2024 3:23 PM CUTTER AND PRESSER us Luca Medrano MD LAB POCT ORDERABLES - DEVICE Final Result Performing Organization Address [facility] [place] [address] * LEFT HEART CATHETERIZATION WITH CORONARY ANGIOGRAPHY AND WITH AND WITHOUT LEFT VENTRICULOGRAM (11/19/2024 2:50 PM CUTTER AND PRESSER) Anatomical Region Laterality Modality X-Ray Angiograph y Impressions 11/19/2024 4:18 PM CUTTER AND PRESSER Very severe stenosis of the vein graft [...] attempt intervention again. I would suggest a [place] 1 0 guiding catheter and consideration for shockwave versus atherectomy. I was present during the entire procedure and personally dictated or confirmed the above report. Luca Medrano MD Narrative 11/19/2024 4:18 PM CUTTER AND PRESSER Procedure: CORONARY ANGIOGRAM / RIGHT HEART CATHETERIZATION/percutaneous coronary intervention Patient: Estuardo Copeland is a 54 y.o. female : 1970 MR number: [id number] Date of Service: 11/19/2024 Presidential Support Specialist: Luca Medrano MD Fellow: Josesito Pabon MD [...] The patient was brought to the laborer hoisting and placed on the table Bilateral groins [...] coronary artery angiogram performed using a 6 Czech JR4 catheter Right heart catheterization preformed with VANI Sheridan Percutaneous coronary intervention performed on the Proximal saphenous vein graft to the LAD. This was an ACC/AHA Type C. Initial Lesion Length 12mm and final lesion Length 15mm. Initial KAROLINA Flow 3 with visible thrombus present Final KAROLINA Flow 3. Equipment used: 6 3DRC, [facility] IVUS Catheter, scion blue wire, 0.9 mm laser atherectomy catheter, 2 5 x 15 NC emerge balloon, a 3 0 x 12 mm AngioSculpt balloon, 4 0 by 15 NC emerge balloon, 4 0 x 15 resolute drug-eluting stent, 4 5 x 12 mm NC emerge balloon Attempted intervention on the ostial left main equipment used was a 6 Czech JL 3.5 guiding catheter, she on black [...] than 300. We took up a 6 Czech 3D RC that sat reasonably well in [...] or perforation. We then took our 6 Czech JL 3.5 guiding catheter attempted to intubate [...] right femoral artery and placed a 6 Czech Angio-Seal. Manual compression was performed on the venous sheath. COMPLICATIONS: None DIAGNOSTIC us Luca Medrano MD CV CARDIAC CATH PROCEDURES F inal Result * (ABNORMAL) POCT Activated clotting time, low range (11/19/2024 2:49 PM CUTTER AND PRESSER) ACT 260(H) 123 - 168 sec POC Performer [id number] [facility] POC Device Number [id number] [facility] Blood 11/19/2024 2:49 PM CUTTER AND PRESSER 11/19/2024 2:49 PM CUTTER AND PRESSER Luca Medrano MD LAB POCT ORDERABLES - DEVICE Final Result Performing Organization Address [facility]/ZIP Co de Phone Number [facility] Department [email or web address] [address] * (ABNORMAL) POCT Activated clotting time, low range (11/19/2024 2:30 PM CUTTER AND PRESSER) ACT 385(H) 123 - 168 sec POC Performer [id number] [facility] POC Device Number [id number] [facility] Blood 11/19/2024 2:30 PM CUTTER AND PRESSER 11/19/2024 2:30 PM CUTTER AND PRESSER Luca Medrano MD LAB POCT ORDERABLES - DEVICE Final Result Performing Organization Address City/[facility]/ZIP Co de Phone Number [facility] [email or web address] [address] * (ABNORMAL) POCT Activated clotting time, low range (11/19/2024 2:01 PM CUTTER AND PRESSER) ACT >400(H) 123 - 168 sec POC Performer [id number] [facility] POC Device Number [id number] [facility] Blood 11/19/2024 2:01 PM CUTTER AND PRESSER 11/19/2024 2:01 PM CUTTER AND PRESSER Luca Medrano MD LAB POCT ORDERABLES - DEVICE Final Result Performing Organization Address [facility] de Phone Number [facility] [email or web address] [address] * Type and screen (11/19/2024 2:01 PM CUTTER AND PRESSER) ABO Rh B Positive Jorge A, indirect Negative [facility] Blood 11/19/2024 2:01 PM CUTTER AND PRESSER 11/19/2024 2:14 PM CUTTER AND PRESSER Narrative [facility] - 11/19/2024 3:08 PM CUTTER AND PRESSER Has the patient had Daratumumab or Isatuximab in the past 6 months?->Unknown us Luca Medrano MD LAB BLOOD BANK TEST ORDERABL ES Final Result Performing Organization Address [facility] de Phone Number [facility] [email or web address] [address] * (ABNORMAL) POCT Activated clotting time, low range (11/19/2024 1:53 PM CUTTER AND PRESSER) ACT >400(H) 123 - 168 sec POC Performer [id number] [facility] POC Device Number [id number] [facility] Blood 11/19/2024 1:53 PM CUTTER AND PRESSER 11/19/2024 1:53 PM CUTTER AND PRESSER Luca Medrano MD LAB POCT ORDERABLES - DEVICE Final Result Performing Organization Address [facility] de Phone Number [facility] [email or web address] [address] * (ABNORMAL) POCT Activated clotting time, low range (11/19/2024 1:49 PM CUTTER AND PRESSER) ACT 78(L) 123 - 168 sec POC Performer [id number] [facility] POC Device Number [id number] [facility] Blood 11/19/2024 1:49 PM CUTTER AND PRESSER 11/19/2024 1:49 PM CUTTER AND PRESSER Luca Medrano MD LAB POCT ORDERABLES - DEVICE Final Result Performing Organization Address City/[facility] Co de Phone Number [facility] [place] [address] * (ABNORMAL) POCT oxyhemoglobin (11/19/2024 1:27 PM CUTTER AND PRESSER) POT BUILDER Oxyhemoglobin 91.6 >=65.0 % POT BUILDER Hemoglobin 11.2(L) 11.9 - 15.5 g/dL [facility] POT BUILDER O2 content 14.3(L) 15.0 - 22.0 Vol % [facility] Anatomic Site aPOC Aorta [facility] Blood 11/19/2024 1:27 PM CUTTER AND PRESSER 11/19/2024 1:27 PM CUTTER AND PRESSER Luca Medrano MD LAB POCT ORDERABLES - DEVICE Final Result Performing Organization Address [facility] Co de Phone Number [facility] [place] [address] * (ABNORMAL) POCT oxyhemoglobin (11/19/2024 1:26 PM CUTTER AND PRESSER) POT BUILDER Oxyhemoglobin 56.2(L) >=65.0 % POT BUILDER Hemoglobin 11.0(L) 11.9 - 15.5 g/dL [facility] POT BUILDER O2 content 8.6(L) 15.0 - 22.0 Vol % [facility] Anatomic Site aPOC Pulm Artery [facility] Blood 11/19/2024 1:26 PM CUTTER AND PRESSER 11/19/2024 1:26 PM CUTTER AND PRESSER Luca Medrano MD LAB POCT ORDERABLES - DEVICE Final Result Performing Organization Address City/[facility] Co de Phone Number [facility] [email or web address] [address] * (ABNORMAL) POCT oxyhemoglobin (11/19/2024 1:26 PM CUTTER AND PRESSER) [facility] POT BUILDER Oxyhemoglobin 56.6(L) >=65.0 % POT BUILDER Hemoglobin 10.9(L) 11.9 - 15.5 g/dL [facility] POT BUILDER O2 content 8.6(L) 15.0 - 22.0 Vol % [facility] Anatomic Site aPOC Pulm Artery [facility] Blood 11/19/2024 1:26 PM CUTTER AND PRESSER 11/19/2024 1:26 PM CUTTER AND PRESSER Luca Medrano MD LAB POCT ORDERABLES - DEVICE Final Result Performing Organization Address [facility] Co de Phone Number [facility] [email or web address] [address] * POC Blood Gas and Chemistries, Arterial - (11/19/2024 11:45 AM CUTTER AND PRESSER) [facility] K POC 3.7 3.3 - 4.9 mmol/L Comment: Interpretive Data Not all point of care methods assess for hemolysis. Confirm with instrument and retest K+ if not consistent with clinical signs and symptoms. Current Interpretive Data was last revised on 2024. Blood 11/19/2024 11:4 5 AM CUTTER AND PRESSER 11/19/2024 11:45 AM CUTTER AND PRESSER us Luca Medrano MD LAB POCT ORDERABLES - DEVICE Final Result Performing Organization Address [facility] Co de Phone Number [facility] [place] [address] * ECG 12 lead (11/19/2024 11:16 AM CUTTER AND PRESSER) [facility] Ventricular Rate EKG/Min 90 BPM [facility] QRS-Interval (MSEC) 84 ms [facility] QT-Interval (MSEC) 404 ms [facility] QTc 494 ms [facility] R [place] 6 degrees [facility] T [place] 144 degrees [facility] Diagnosis Atrial fibrillation Electronic atrial pacemaker Minimal voltage criteria for LVH, may be normal variant ( Shoup product ) Septal infarct , age undetermined T wave abnormality, consider lateral ischemia Abnormal ECG Confirmed by HARJINDER HANDY M.D ([id number]) on 11/19/2024 3:59:31 PM [facility] 11/19/2024 11:1 6 AM CUTTER AND PRESSER 11/19/2024 3:59 PM CUTTER AND PRESSER Luca Medrano MD ECG ORDERABLES Final Result [facility] * DEVICE CHECK - IN OFFICE (11/18/2024 11:20 AM CUTTER AND PRESSER) Anatomical Region Laterality Modality Other 11/18/2024 2:00 AM CUTTER AND PRESSER Narrative 12/24/2024 9:17 PM CUTTER AND PRESSER Interpretation Summary: Battery and Leads (BL) Normal parameters noted on battery and lead(s) Presenting Rhythm (LA) Atrial Sensing-Ventricular Sensing (-VS) Arrhythmic events (AE) Atrial fibrillation and/or flutter with controlled ventricular rate Nonsustained VT event(s) identified Anticoagulation (AC) Patient on anticoagulant therapy --- Plavix Procedure Note Lane Ramos MD PhD - 12/24/2024 Interpretation Summary: Battery and Leads (BL) Normal parameters noted on battery and lead(s) Presenting Rhythm (LA) Atrial Sensing-Ventricular Sensing (-VS) Arrhythmic events (AE) Atrial fibrillation and/or flutter with controlled ventricular rate Nonsustained VT event(s) identified Anticoagulation (AC) Patient on anticoagulant therapy --- Plavix Lane Ramos MD PhD CV CARDIAC SERVICES PROCEDURES Final Result * SCAN - LABS (11/17/2024) us Provider Scanning Final Result * DEVICE CHECK - REMOTE (11/16/2024 11:06 PM CUTTER AND PRESSER) Anatomical Region Laterality Modality Other 11/16/2024 11:0 6 PM CUTTER AND PRESSER Narrative 12/24/2024 9:11 PM CUTTER AND PRESSER Interpretation Summary: Battery and Leads (BL) Normal parameters noted on battery and lead(s) --- 9.4 yrs remaining longevity (implanted 2018). Lead impedance, sensing, and RA threshold trends stable and appropriate. No RV threshold testing during the monitoring period. No short V-V intervals. Presenting Rhythm (LA) Atrial Sensing-Ventricular Sensing (-VS) --- /VS (SR) [...] period. No short V-V intervals. Presenting Rhythm (LA) Atrial Sensing-Ventricular Sensing (-VS) --- /VS (SR) [...] CBC with auto differential (11/16/2024 1:57 PM CUTTER AND PRESSER) [facility] WBC 7.2 3.4 - 10.8 x10E3/uL [facility] [...] [facility] - 01 Blood 11/16/2024 1:57 PM CUTTER AND PRESSER 11/16/2024 Narrative [facility] - 11/17/2024 8:14 AM CUTTER AND PRESSER Performed at: [facility] [address] [id number] Molecular Modeler: Marco Antonio Paiz PhD, Phone: [phone] us Luca Medrano MD LAB BLOOD ORDERABLES Final R esult Performing Organization Address [facility]/ZIP Co de Phone Number [facility] - 01 * (ABNORMAL) Basic metabolic panel (11/16/2024 1:57 PM CUTTER AND PRESSER) [facility] Glucose 88 70 - 99 [...] [facility] - 01 Blood 11/16/2024 1:57 PM CUTTER AND PRESSER 11/16/2024 Narrative [facility] - 11/17/2024 12:09 PM CUTTER AND PRESSER Performed at: [facility] [id number] Molecular Modeler: Marco Antonio Paiz PhD, Phone: [phone] us Luca Medrano MD LAB BLOOD ORDERABLES [facility] Performing Organization Address [facility]/ZIP Co de Phone Number [facility] - 01 * TRANSTHORACIC ECHO (TTE) COMPLETE W DOPPLER/CF W CONTRAST (11/10/2024 4:05 PM CUTTER AND PRESSER) [facility] LV EF % CONS SCIMAGE Anatomical Region Laterality Modality Ultrasound 11/10/2024 2:55 PM CUTTER AND PRESSER Narrative 11/11/2024 9:34 AM CUTTER AND PRESSER [facility] [address], [address] [place] [address] Transthoracic Echocardiographic Report Patient Name: ESTUARDO COPELAND M : 1970 (54y ) Gender: F Study Date: 11/10/2024 02:55:48 PM Ht(Inch): 64 Wt(Lb): 115.08 BSA: 1.54 Automotive Light Mechanic: GERA Wells Location: [facility] Order Provider: LUCA MEDRANO Heart Rate: 76 BMI: 19.75 BP: 94/60 Quality: Technically difficult study due to limited acoustic windows. Ref Provider: LUCA MEDRANO PROCEDURES: Echocardiographic Report: ([id number], [id number], [id number]) Transthoracic complete echo with strain imaging and contrast, 2D, spectral and tissue Doppler, color flow Doppler, M- mode. Additional Procedures: ([id number]) 3D echocardiographic imaging from Echo Machine. Contrast: [...] [ 46.00 - 106.00 ] AI Decel Hart 1.58 m/s2 ESV Mod 2C 14.03 ml [...] By: Silver Levin MD 11/11/2024 9:32:57 AM CUTTER AND PRESSER Electronically Signed By: Silver Levin MD 11/11/2024 9:32:57 AM CUTTER AND PRESSER Procedure Note Silver Lvein MD - 11/11/2024 [facility] Cardiac Diagnostic Lab [address], [address] [place] [address] Transthoracic Echocardiographic Report Patient Name: ESTUARDO COPELAND M : 1970 (54y ) Gender: F Study Date: 11/10/2024 02:55:48 PM Ht(Inch): 64 Wt(Lb): 115.08 BSA: 1.54 Automotive Light Mechanic: GERA Wells Location: [facility] Order Provider:LUCA MEDRANO Heart Rate: 76 BMI: 19.75 BP: 94/60 Quality: Technically difficult studydue to limited acoustic windows. Ref Provider: LUCA MEDRANO PROCEDURES: Echocardiographic Report: ([id number], [id number], [id number]) Transthoracic completeecho with strain imaging and contrast, 2D, spectral and tissue Doppler, color flow Doppler,M- mode. Additional Procedures: ([id number]) [facility] Contrast: 0.4 ml Optison Administered, (2.6 ml [...] EDV Mod 4C 60.63 ml AI Decel Aird8679.11 sec EDV Mod BP 56.21 ml [ 46.00 - 106.00 ] AI Decel Slope1.58 m/s2 ESV Mod 2C 14.03 ml AI LCJ863.67 msec ESV Mod 4C 21.21 ml MV [...] cm LA Length 4C 5.48 cm MV RNQ655.85 msec [ 20.00 - 100.00 ] LA Volume 2C 34.1 ml MVA PHT2.18 cm2 LA Volume 4C 31.3 ml MV Decel Osga117.53 msec [ 104.00 - 258.00 ] LA [...] cm [ 2.70 - 3.70 ] MR AIK122.8 cm Ao Root Index 1.32 cm/m2 MR [...] By: Silver Levin MD 11/11/2024 9:32:57 AM CUTTER AND PRESSER Electronically Signed By: Silver Levin MD 11/11/2024 9:32:57 AM CUTTER AND PRESSER Result [facility] Luca Medrano MD CV ECHO PROCEDURES Final Res ult * HLA Antibody Screen by PRA or SAB per Schedule (Class I and Class II) (11/05/2024 10:00 AM CUTTER AND PRESSER) Blood 11/05/2024 10:0 0 AM CUTTER AND PRESSER Narrative [facility] - CUTTER AND PRESSER Sample received in lab and stored. No testing performed at this time. Salina Hector MD LAB BLOOD ORDERABLES Final Resul t [facility] * Hepatitis C antibody (03/06/2023 10:19 AM CDT) Hep C Ab Nonreactive Nonreactive [facility] Comment:Antibodies to HCV no t detected. Does NOT exclude the possibility of recent exposure to HCV. Current interpretive data was last revised on 22 Blood 03/06/2023 10:1 9 AM CDT 03/06/2023 10:38 AM CDT Maria Fernanda Bryant MD LAB MICROBIOLOGY - GENERAL ORDERABLES Final Result [facility] Department [place] [address] from Last 3 Months or Most Recently Relevant to Health Maintenance
--- OUTSIDE RECORDS SUMMARY | 2025-01-12 18:16 | XMS_ITS | Continuity of Care Document ---
Author Organization [facility] Address [address] [place] [address] [place] [address] Phone Care Team Providers Care Case Reviewer Name Role Phone Ez Kc Unavailable Unavailable Procedures Procedure Date Office/outpatient Visit, Est Office/outpatient Visit, Est Advance Directives Directive Yes / No Effective Date File Name No Information Encounters Encounter Description Practice Location Reason(s) For Visit Diagnoses Date Provider Providers Copied on Encounter Office/outpat ient Visit, [facility], [address] [place] [address] [address], [place], [place], [id number], tel:[phone] [facility] No Information 0 Doisy Ez. [facility] , [address], [place], [place], [facility], [place]. tel:[phone] Office/outpat ient Visit, [facility], [address] [place] [address] [address], [place], [place], [id number], tel:[phone] [facility] No Information 0 Camara OD Дмитрий. [address] , [address], [place], [address], [place]. tel:[phone] Family History Family Member Type Diagnosis Age At Onset No Information Payers Payer name Insurance type Covered republican ID Authoriza tion(s) Medicaid [facility] [id number] Social History Type Description Quantity Date Captured [...]
--- OUTSIDE RECORDS SUMMARY | 2025-01-12 18:17 | XMS_ITS | Clinical Summary ---
Author Organization [facility] Address [address] [place] [address] Phone Care Team Providers Care Process Assistant Name Role Phone ScarlettmelanyPal ibarra DO Primary Care Provider [phone] Allergies Active Allergy Reactions Criticality Noted Date [...] Comments Blood Pressure 122/70 12/22/2021 9:43 PM GLOBAL PRESIDENT Pulse 72 12/22/2021 9:43 PM GLOBAL PRESIDENT Temperature 36.2 C (97.2 F) 12/22/2021 9:43 PM GLOBAL PRESIDENT Respiratory Rate - - Oxygen Saturation - - Inhaled Oxygen Concentration - - Weight 50.3 kg (111 lb) 12/22/2021 9:43 PM GLOBAL PRESIDENT Height 162.6 cm (5' 4 ) 12/22/2021 9:43 PM GLOBAL PRESIDENT Body Mass Index 19.05 12/22/2021 9:43 PM GLOBAL PRESIDENT Plan of Treatment Health Maintenance Due Date Last Done Comments Influenza Vaccine (#1) 2024 10/21/2017 Care Teams Process Assistant Relationship Specialty Start Date End Date Pal Downey DO [address] [place] [address] PCP - General Internal Medicine 02/04/19
--- OUTSIDE RECORDS SUMMARY | 2025-01-12 18:17 | XMS_ITS | Clinical Summary ---
Author Organization [facility] Address [address] [place] [address] Care Team Providers Care Clipper Machine Name Role Phone Danielle Hawkins Primary Care Provider Unavailabl e Source Comments [facility],non-owned Affiliates and Associated Physician Practices is amultiple site organization consisting of ambulatory clinics and hospital sitesin [place], [place], [place] and [place]. This disclosure is being madepursuant to the Care Everywhere program and may not contain all information available regarding this patient. Last updated 18.[facility] Allergies Active Allergy Reactions Criticality Noted Date [...] Comments Blood Pressure 145/91 09/06/2016 9:59 AM [facility] Pulse 79 09/06/2016 9:59 AM [facility] Temperature 36.4 C (97.5 F) 12/23/2015 3:20 PM [facility] Respiratory Rate 12 09/06/2016 9:59 AM [facility] Oxygen Saturation 100% 12/23/2015 3:20 PM [facility] Inhaled Oxygen Concentration - - Weight 60.8 kg (134 lb) 09/06/2016 9:59 AM [facility] Height 162.6 cm (5' 4 ) 09/06/2016 9:59 AM [facility] Body Mass Index 23 09/06/2016 9:59 AM [facility] Plan of Treatment Health Maintenance Due Date [...] to complete this topic MENINGOCOCCAL (Group B) VACC INE SHARED DECISION-MAKING Aged Out No longer eligibl e based on patient's age to complete this topic MENINGOCOCCAL GROUPS A/C/Y/W VACCINE Aged Out No longer eligible b ased on patient's age to complete this topic PNEUMOCOCCAL VACCINE Aged Out No long er eligible based on patient's age to complete this topic Care Teams Clipper Machine Relationship Specialty Start Date End Date HawkinsDanielle Update Information PCP - General 04/29/15
--- OUTSIDE RECORDS SUMMARY | 2025-01-12 18:17 | XMS_ITS | Encounter Summary ---
Author Organization [facility] [employer] [facility] Address [address] [place] [address] Phone Care Team Providers Care Field Marketer Name Role Phone Quinton Rowan MD Unavailable Pal Downey DO Primary Care Provider [phone] Tami Flores RN Unavailable Cricket Escalante MD Unavailable Gael Sprague MD PhD Unavailable Brad Turner MD Unavailable [phone] Margarita Montoya MD Unavailable [phone] Luca Lott MD Unavailable [phone] Pb Galloway MD Unavailable [phone] Felipe Gerber MD Unavailable [phone] Encounter Details Date Type Department Care [...] on file Legal Sex Female 4:06 AM CONFLICTS ANALYST Gender Identity Female 01/16/2024 11:18 AM CDT Sexual Orientation Straight 01/16/2024 11 :18 AM CDT documented as of this encounter Plan of Treatment Scheduled Procedures Name Priority Associated Diagnoses Date/Ti me TRANSPLANT KIDNEY ESRD (end stage renal disease) (HCC) documented as of this encounter Procedures [...] documented as of this encounter Care Teams Field Marketer Relationship Specialty Start Date End Date Pal Downey DO PCP - General Internal Medicine 01/25/21 Quinton Rowan MD Referring Physician Cardiology 01/09/19 Tami Flores RN [address] [address] Registered Nurse Sawyer Cork Slabs 01/25/21 Cricket Escalante MD [address] [address] Referring Physician Nephrology 03/24/21 Gael Sprague MD PhD [address] [address] Fellow Endocrinology Diabetes & Metabolism 03/24/21 Brad Turner MD [address] [address] Consulting Physician Obstetrics and Gynecology 03/24/21 Margarita Montoya MD [address] [id number] Consulting Physician Trauma Surgery 12/27/21 Luca Lott MD [address] [address] Consulting Physician Cardiology 08/03/22 Pb Galloway MD [address] [facility] [id number] [place] [address] Cardiothoracic Surgery 05/25/24 Felipe Gerber MD [address] [facility] [phone] [place] [address] Consulting Physician Cardiology 05/25/24 documented as of this encounter
--- OUTSIDE RECORDS SUMMARY | 2025-01-12 18:17 | XMS_ITS ---
Author Organization [facility] Address [address] [place] [address] Care Team Providers Care Syrup Shed Supervisor Name Role Phone Quinton Rowan MD Unavailable [phone] Pal Downey DO Primary Care Provider Tami Flores RN Unavailable [phone] Cricket Escalante MD Unavailable [phone] Gael Sprague MD PhD Unavailable Brad Turner MD Unavailable [phone] Margarita Montoya MD Unavailable [phone] Luca Lott MD Unavailable Pb Galloway MD Unavailable Fleipe Gerber MD Unavailable [phone] Transplant Episode Kidney Candidate [facility] ([place], [place]) [facility] Center waitlisted on 09/05/2021 Marked as Inactive on 03/13/2024 Reason: 03 - Candidate Work-up Incomplete Kidney CoordinatorTami Flores RN Email: N/A Scores Score Value Updated Exceptions/Reas ons CPRA Not available EPTS (Calc) 28 01/12/2025 [place] Organ Diagnosis Organ Primary Contributory Kidney Polycystic Kidneys Care Team Name Role Phone Fax Email Tami Flores RN Kidney Coordinator [phone] N/A Mariann Bobo Animal Physiology Teacher [phone] N/A N/A Events Pre-Transplant Referred: 10/06/2020 Evaluation began: 03/24/2021 Committee: 09/04/2021 Center waitlisted: 09/05/2021 Dialysis History Dialysis History Start End Type Comments Center 01/09/2022 Peritoneal [facility] Dialysis [facility] Information Center Phone Fax Address [facility] [phone] [address]
--- OUTSIDE RECORDS SUMMARY | 2025-01-12 18:17 | XMS_ITS | Encounter Summary ---
Author Organization [facility] Address [address] [place] [address] Care Team Providers Care Swimming Pool Service Technician Name Role Phone Quinton Rowan MD Unavailable [phone] Pal Downey DO Primary Care Provider [phone] Tami Flores RN Unavailable Cricket Escalante MD Unavailable [phone] Gael Sprague MD PhD Unavailable Brad Turner MD Unavailable [phone] Margarita Montoya MD Unavailable [phone] Luca Lott MD Unavailable Pb Galloway MD Unavailable [phone] Felipe Gerber MD Unavailable [phone] Reason for Referral * Cardiology (Routine) - Authorized Specialty Diagnoses / Procedures Referred By Contac t Referred To Contact Diagnoses ESRD (end stage renal disease) (HCC) Procedures ECG 12 lead Tamar Tang MD [address] [place] [address] Phone: tel: fax: [facility] [address] [place] [address] Referral ID Status Reason Start Date Expiration Date V isits Requested Visits Authorized [id number] Authorized 01/12/2025 02/11/2026 1 1 * Diagnostic Imaging (Routine) - Authorized Specialty Diagnoses / Procedures Referred By Contac t Referred To Contact Diagnoses ESRD (end stage renal disease) (HCC) Procedures XR Orthopantogram Panorex Tamar Tang MD [address] [place] [address] Phone: tel: fax: [address] [address] Referral ID Status Reason Start Date Expiration Date V isits Requested Visits Authorized [id number] Authorized 01/12/2025 02/11/2026 1 1 Encounter Details Date Type Department Care Team (Late st Contact Info) Description 01/12/2025 Orders Only [facility] Transplant Kidney [address] [facility] [address] [phone] [place] [address] Tami Flores, RN [address] [facility] [address] [place], [place] [id number] ESRD (end stage renal disease) (HCC) (Primary Dx) Social History Tobacco Use Types Packs/Day Years [...] on file 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) Expected: 01/15/2025, Expires: 01/12/2026 Comprehensive metabolic panel Lab Routine ESRD (end stage renal disease) ([facility]) Expected: 01/15/2025, Expires: 01/12/2026 HIV 1/2 Antibody plus p24 Antigen Blood Microbiology Routine ESRD (end stage renal disease) ([facility]) Expected: 01/15/2025, Expires: 01/12/2026 Hepatitis B surface antibody (immune status) Blood Microbiology Routine ESRD (end stage renal disease) ([facility]) Expected: 01/15/2025, Expires: 01/12/2026 Hepatitis B Surface Antigen Blood Microbiology Routine ESRD (end stage renal disease) ([facility]) Expected: 01/15/2025, Expires: 01/12/2026 Hepatitis C antibody Blood Microbiology Routine ESRD (end stage renal disease) ([facility]) Expected: 01/15/2025, Expires: 01/12/2026 Hepatitis B core antibody, total Blood Microbiology Routine ESRD (end stage renal disease) ([facility]) Expected: 01/15/2025, Expires: 01/12/2026 Phosphorus Lab Routine ESRD (end stage renal disease) ([facility]) Expected: 01/15/2025, Expires: 01/12/2026 PTH Lab Routine ESRD (end stage renal disease) ([facility]) Expected: 01/15/2025, Expires: 01/12/2026 XR Orthopantogram Panorex Imaging Schedule Routine, Read Routine (OP Routine) ESRD (end stage renal disease) (HCC) Expected: 01/12/2025, Expires: 01/12/2026 XR Chest Pa Lateral 2 Views Imaging Schedule Routine, Read Routine (OP Routine) ESRD (end stage renal disease) ([facility]) Expected: 01/12/2025, Expires: 01/12/2026 ECG 12 lead ECG Routine ESRD (end stage renal disease) ([facility]) 1 Occurrences starting 01/12/2025 until 01/12/2026 ABO/Rh Lab Routine ESRD (end stage renal disease) ([facility]) Expected: 01/15/2025, Expires: 01/12/2026 Hemoglobin A1c Lab Routine ESRD (end stage renal disease) ([facility]) Expected: 01/15/2025, Expires: 01/12/2026 Scheduled Procedures Name Priority Associated Diagnoses Date/Ti me TRANSPLANT KIDNEY ESRD (end stage renal disease) ([facility]) documented as of this encounter Visit Diagnoses Diagnosis ESRD (end stage renal disease) ([facility])- Primary End stage renal disease documented in this encounter Care Teams Swimming Pool Service Technician Relationship Specialty Start Date End Date Pal Downey DO PCP - General Internal Medicine 01/25/21 Quinton Rowan MD Referring Physician Cardiology 01/09/19 Tami Flores, RN [address] [address] Registered Nurse Center Medical Specialist 01/25/21 Cricket Escalante MD [address] [address] Referring Physician Nephrology 03/24/21 Gael Sprague MD PhD [address] [address] Fellow Endocrinology Diabetes & Metabolism 03/24/21 Brad Turner MD [address] [address] Consulting Physician Obstetrics and Gynecology 03/24/21 Margarita Montoya MD [address] [address] Consulting Physician Trauma Surgery 12/27/21 Luca Lott MD [address] [address] Consulting Physician Cardiology 08/03/22 Pb Galloway MD [address] [facility] [phone] [place] [address] Cardiothoracic Surgery 05/25/24 Felipe Gerber MD [address] [id number] [place] [address] Consulting Physician Cardiology 05/25/24 documented as of this encounter
== END 2025-01-12 15:46 | disposition home or self-care (01) ==
PROVIDERS: PCP Internal Medicine; Visit Provider Urology
DX: J90 Pleural effusion, not elsewhere classified (principal); R10.9 Unspecified abdominal pain; Q61.3 Polycystic kidney, unspecified; R18.8 Other ascites
CPT/HCPCS: 74018; 74176

== ENCOUNTER 2025-02-15 12:36 | Outpatient (CLI) | payer MEDICARE, OTHER, SELFPAY ==
--- NOTE | ~2025-02-15 | XR_ITS ---
XR chest 2V Ordering provider: Rio Cai MD History: 54 years Female with . INCREASING SOB . Comparison: May 10, 2023 FINDINGS: Bilateral breast implants. MEDIASTINUM: The cardiac silhouette is not enlarged. Right bipolar pacemaker. Postoperative changes i n the mediastinum. LUNGS: No effusions or pneumothorax. Opacification in the left lung base. OTHER: No free air under the diaphragm. Kyphosis is seen in the upper thoracic area with loss of volu me of vertebrae. MRI is advised. S-shaped scoliosis. IMPRESSION: Left basilar atelectasis versus pneumonia. Severe Kyphosis in the upper thoracic area. Reviewed, dictated and finalized at location A.
--- OUTSIDE RECORDS SUMMARY | 2025-02-15 14:11 | XMS_ITS | Clinical Summary ---
Author Organization [facility] Address [address] [place] [address] Care Team Providers Care Aviation Safety Officer Name Role Phone Unavailable Primary Care Provider [...] Screening with HPV 2001 Mammogram Screening 2011 Pneumococcal Vaccine: 50+ Ye ars (1 of 1 - PCV) 2021 Zoster Vaccines (1 of 2) 2021 COVID-19 Vaccine (2023-2 5 season) 2024 Meningococcal B Vaccine Aged Out No l onger eligible based on patient's age to complete this topic Meningococcal Vaccine Aged Out No joi lorena eligible based on patient's age to complete this topic RSV Immunizations Under 20 Months Aged Out No longer eligible based on patient's age to complete this topic
--- OUTSIDE RECORDS SUMMARY | 2025-02-15 14:11 | XMS_ITS | Encounter Summary ---
Author Organization [facility] Address [address] [place] [address] Phone Care Team Providers Care High Pressure Operator Name Role Phone Quinton Rowan MD Unavailable Pal Downey DO Primary Care Provider [phone] Tami Flores RN Unavailable [phone] Cricket Escalante MD Unavailable Gael Sprague MD PhD Unavailable Brad Turner MD Unavailable Margarita Montoya MD Unavailable [phone] Luca Lott MD Unavailable Pb Galloway MD Unavailable Felipe Gerber MD Unavailable [phone] Encounter Details Date Type Department Care Team (Late st Contact Info) Description 02/09/2025 Telephone [facility] Cardiology [address] [facility] 8th [place] [address] [place] [id number] Luca Lott MD [address] [place] [address] Social History Tobacco Use Types Packs/Day Years [...] on file 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 Scheduled pt - added pt on DOS 04/07/25 at 11:30 am. documented in this encounter Plan of Treatment Scheduled Procedures Name Priority Associated Diagnoses Date/Ti me TRANSPLANT KIDNEY ESRD (end stage renal disease) (HCC) documented as of this encounter Visit Diagnoses Not on filedocumented in this encounter Care Teams High Pressure Operator Relationship Specialty Start Date End Date Pal Downey DO PCP - General Internal Medicine 01/25/21 Quinton Rowan MD Referring Physician Cardiology 01/09/19 Tami Flores, RN [address] [place] [address] Registered Nurse Collections Curator 01/25/21 Cricket Escalante MD [address] [place] [address] Referring Physician Nephrology 03/24/21 Gael Sprague MD PhD [address] [place] [address] Fellow Endocrinology Diabetes & Metabolism 03/24/21 Brad Turner MD [address] [id number] Consulting Physician Obstetrics and Gynecology 03/24/21 Margarita Montoya MD [address] [address] Consulting Physician Trauma Surgery 12/27/21 Luca Lott MD [address] [id number] Consulting Physician Cardiology 08/03/22 Pb Galloway MD [address] [facility] [phone] [place] [address] Cardiothoracic Surgery 05/25/24 Felipe Gerber MD [address] [facility] [phone] [place] [address] Consulting Physician Cardiology 05/25/24 documented as of this encounter
--- OUTSIDE RECORDS SUMMARY | 2025-02-15 14:12 | XMS_ITS | Continuity of Care Document ---
Author Organization [facility] Address [address] [place] [address] [place] [address] Phone Care Team Providers Care Cable Driller Name Role Phone Ez Kc Unavailable Unavailable Procedures Procedure Date Office/outpatient Visit, Est Office/outpatient Visit, Est Advance Directives Directive Yes / No Effective Date File Name No Information Encounters Encounter Description Practice Location Reason(s) For Visit Diagnoses Date Provider Providers Copied on Encounter Office/outpat ient Visit, [facility], [address] [place] [address] [address], [place], [place], [address], tel:[phone] [facility] No Information 0 Doisy Ez. [facility], [place], [place], [facility], [place]. tel:[phone] Office/outpat ient Visit, [facility], [address] [place] [address] [address], [place], [place], [id number], tel:[phone] [facility] No Information 0 Camara OD Дмитрий. [address], [place], [address], [place]. tel:[phone] Family History Family Member Type Diagnosis Age At Onset No Information Payers Payer name Insurance type Covered republican ID Authoriza tion(s) [facility] [id number] Social History Type Description Quantity Date Captured [...]
--- OUTSIDE RECORDS SUMMARY | 2025-02-15 14:12 | XMS_ITS | Clinical Summary ---
Author Organization [facility] Address [address] [place] [address] Care Team Providers Care Machining Engineer Name Role Phone Quinton Rowan MD Unavailable [phone] Pal Downey DO Primary Care Provider [phone] Tami Flores RN Unavailable Cricket Escalante MD Unavailable Gael Sprague MD PhD Unavailable Brad Turner MD Unavailable Margarita Montoya MD Unavailable Luca Lott MD Unavailable [phone] Pb Galloway MD Unavailable Felipe Gerber MD Unavailable [phone] Allergies Active Allergy Reactions Criticality Noted Date Comments Amoxicillin Anaphylaxis High Per Armani Dumas MD, patient has previously tolerated cephalosporins. Frank Buckley, PharmD 05/10/2019 Ampicillin Anaphylaxis High 04/29/2015 Per Armani Dumas MD, patient has previously tolerated cephalosporins. Frank Buckley, PharmD 05/10/2019 Ghosh Hives Medium 12/22/2021 Richards beans, navy beans; Is able to eat green beans Clarithromycin Anaphylaxis High Egg Anaphylaxis High 03/15/2019 Reaction: PT. STATES SHE STOPS BREATHING Penicillins Anaphylaxis,Rash,Unknown High 04/29/2015 Tree Nuts Vomiting [...] as needed for pain 05/25/20 24 Active ondansetron ODT (ZOFRAN-ODT) 4 mg disintegrating tablet Take 1 tablet (4 mg total) by mouth every 8 (eight) hours as needed for nausea or vomiting 20 tablet 1 05/25/20 24 Active gabapentin (NEURONTIN) 100 mg capsule 06/18/20 24 Active azithromycin (ZITHROMAX) 500 mg tablet TAKE 1 TABLET BY MOUTH 30 MINUTES BEFORE APPOINTMENT OR PROCEDURE. 07/28/20 24 Active nitroglycerin (NITROSTAT) 0.[address] 1 tablet (0.4 mg total) under the tongue every 5 (five) minutes as needed for chest pain May repeat dose q 5 min, up to 3 doses total 30 tablet 11/05/19 25 Active ergocalciferol (VITAMIN D) 50,000 unit [...] daily 90 tablet 3 12/26/19 25 Active midodrine (PROAMATINE) 10 mg tabletIndications: Symptomatic Orthostatic Hypotension Take 1 tablet (10 mg total) by mouth 3 (three) times a day before meals 90 tablet 1 05/25/20 24 025 Discontin ued(Thera py completed ) Xphozah 30 mg tablet 06/01/20 24 025 Discontin ued(Thera py completed ) fludrocortisone 0.1 mg tablet Take 1 tablet (0.1 mg total) by mouth daily 11/11/19 25 025 Discontin ued(Thera py completed ) Active Problems Problem Noted Date Diagnosed Date Nonrheumatic mitral valve stenosis 02/05/2025 Assessment & Plan (02/05/2025 3:15 PM CDT): Moderate mitral stenosis per TTE, mean gradient 67 mm Hg at a HR of 68 Chest pain 11/10/2024 S/P TAVR (transcatheter aortic valve replacement ) 05/25/2024 Assessment & Plan (02/05/2025 3:15 PM CDT): Status post complex SAVR in 2019, complicated by severe paravalvular leak with subsequent TAVR Alexis with 30 mm Brown 3 ultra on 05/21/2024 Mean gradient 16 mm Hg per echo in October 2024 Assessment & Plan (05/25/2024 8:07 AM CDT): [...] (02/01/2022): Added automatically from request for surgery [id number] Assessment & Plan (02/05/2025 3:15 PM CDT): Undergoing pre transplant evaluation. We will review with Dr. Lott regarding possible candidacy for transplant list given recent interventions. Continued to DAPT Disorder of peritoneal dialysis catheter 022 Overview (12/22/2021): Added automatically from request for surgery [id number] Chronic kidney disease, stage V 10/31/2021 Overview (08/21/2023): Added automatically from request for surgery [id number] Sick sinus syndrome 11/02/2020 Diastolic heart failure 10/27/2019 Assessment & Plan (02/05/2025 3:15 PM CDT): Euvolemic on exam, volume management per PD, followed closely by Nephrology S/P placement of cardiac pacemaker 06/05/2019 Assessment [...] Assessment & Plan (02/25/2019 11:43 AM CDT): [facility] with 95% LAD lesion, had some [...] Assessment & Plan (02/24/2019 9:29 AM CDT): [facility] with 95% LAD lesion, had some [...] Assessment & Plan (02/20/2019 5:17 AM CDT): [facility] with 95% LAD lesion, had some RV dysfunction during AV repair and found to have RCA occlusion following LAD bypass - s/p IABP placement - CABG to LAD and LCA Assessment & Plan (02/19/2019 2:08 AM CDT): [facility] with 95% LAD lesion, had some RV dysfunction during AV repair and found to have RCA occlusion following LAD bypass - s/p IABP placement - CABG to LAD and LCA Assessment & Plan (02/17/2019 7:38 PM CDT): [facility] with 95% LAD lesion, had some RV dysfunction during AV repair and found to have RCA occlusion following LAD bypass - s/p IABP placement - CABG to LAD and LCA - on Epi and Milrinone, wean epi as above Assessment & Plan (02/16/2019 11:38 PM CDT): [facility] with 95% LAD lesion, had some RV dysfunction during AV repair and found to have RCA occlusion following LAD bypass - s/p IABP placement - CABG to LAD and LCA - on Epi and Milrinone of inotropy Assessment & Plan (02/11/2019 6:16 PM CDT): [facility] with 95% LAD lesion, had some RV dysfunction during AV repair and found to have RCA occlusion following LAD bypass - s/p IABP placement - CABG to LAD and LCA - on Epi and Milrinone of inotropy Assessment & Plan (02/08/2019 5:38 PM CDT): -Patient w/ chest pain/SOB along w/ significant troponin elevation -Plan for [facility] w/ possible PCI tomorrow pending results [...] to 4.35 - valve team consulted, 02/09 [facility] with severe 1 vessel disease of [...] (02/09/2019): Added automatically from request for surgery [id number] Assessment & Plan (05/17/2019 9:19 AM CDT): [...] (02/10/2019): Added automatically from request for surgery [id number] Assessment & Plan (02/05/2025 3:15 PM CDT): History of single-vessel CABG, SVG-lad. Subsequent PCI to ostial graft in February 2022, PCI to ostial graft ISR in July of 2023. Catheterization in October of 2024 showed very severe stenosis of the SVG to LAD graft requiring laser atherectomy and KARINA placement Stage intervention to severely calcified LM stenosis status post shockwave lithotripsy and KARINA placement in December of 2024 Denies any anginal symptoms Continue DAPT on aspirin and Plavix Echo in October 2024, LVEF 67% Discussed cardiac rehab, patient not interested at this time Assessment & Plan (05/24/2024 11:21 AM CDT): [...] with left shoulder pain similar to previous [place] -EKG changes per OSH --Slight elevation in [...] currently stable Daily BMPs, while inpatient Home cyanide pot tender is Dr. Escalante Continue lasix 40 mg [...] kidney disease, baseline Cr 2.4-2.6. F/b OSH cyanide pot tender. Apparently discussions for potential need for renal txp being discussed. - Cr at baseline on adm - avoid nephrotoxins, renally dose meds - continue calcitriol 0.5 mcg/day - Cr 2.75, received pre-cath hydration, stable 2.7 Headache 05/02/2016 Moderate COPD (chronic obstr uctive pulmonary disease) ([facility]) 11/02/2015 Assessment & Plan (08/02/2022 5:33 PM [...] AM CDT): Alexis TAVR 05/[address] [facility], Dr. Lott. CT TAVR on 04/28 showed prosthetic aortic [...] not a candidate for intervention [facility] Assessment & Plan (05/17/2019 9:28 AM [...] AV. Referred to valve team by primary innovation manager Dr. Rowan. Seen 02/02 by valve team [...] around 2.4 Dr Escalante is her home cyanide pot tender Assessment & Plan (02/23/2019 12:20 PM CDT): Pt above POW by 2 kg. Lasix on hold due to elevation in Creatinine Baseline creat is around 2.4 Dr Escalante is her home cyanide pot tender Agitation requiring sedation protocol 02/14/2019 02/23/2019 Acute [...] or she had reactions to (?). Per OS cyanide pot tender's note in Care Everywhere, pt tried metoprolol [...] Encounters Date Type Department Care Team Description 02/09/2025 Telephone [facility] Cardiology [facility] Advanced Medicine 8th [place] [address] [place] [address] Luca Lott MD 02/05/2025 3:00 PM CDT Office Visit [facility] Cardiology [address] [place] [address] Medical Office Building [address] [place] [phone] Miranda Joy NP Coronary artery disease involving salt river coronary artery of salt river heart without angina pectoris (Primary Dx); S/P TAVR (transcatheter aortic valve replacement); Nonrheumatic mitral valve stenosis; Chronic diastolic heart failure (HCC); Pre-transplant evaluation for end stage renal disease 02/05/2025 Telephone [facility] Cardiology [address] [place] [address] Medical Office Building [address] [place] [address] Luca Lott MD inquiry from ALBERENE STONE SETTER re: txp 01/28/2025 10:35 AM CDT - 01/28/2025 11:59 PM CDT Hospital Encounter [facility] of [address] [address] Discharge Disposition: Discharge to home or self care 01/28/2025 10:02 AM CDT - 01/28/2025 11:59 PM CDT Hospital Encounter [facility] [address] [place] [address] ESRD (end stage renal disease) (HCC) Discharge Disposition: Discharge to home or self care 01/28/2025 10:02 AM CDT - 01/28/2025 11:59 PM CDT Hospital Encounter [facility] Rad[facility] [address] [place] [address] ESRD (end stage renal disease) (HCC) Discharge Disposition: Discharge to home or self care 01/28/2025 10:02 AM CDT - 01/28/2025 11:59 PM CDT Hospital Encounter [facility] Radiology [facility] [address] [place] [address] ESRD (end stage renal disease) (HCC) Discharge Disposition: Discharge to home or self care 01/28/2025 9:50 AM CDT Lab [facility] [address] [place] [phone] 01/28/2025 9:35 AM CDT Lab [facility] [address] [place] [phone] Polycystic liver disease; ESRD (end stage renal disease) (HCC) 01/28/2025 8:00 AM CDT Office Visit [facility] Gastroenterology [address] [facility] Advanced Medicine 12th [place] [address] [place] [address] Abigail Vides MD Polycystic liver disease (Primary Dx) 01/22/2025 10:00 AM CDT - 01/22/2025 11:59 PM CDT Hospital Encounter [facility] [address] [place] [address] Discharge Disposition: Discharge to home or self care 01/22/2025 Orders Only [facility] Nephrology [address] [place] [address] Salina Hector MD 01/12/2025 Orders Only [facility] and [facility] Transplant Kidney [address] [facility] Mailstop [phone] [place] [address] Tami Flores RN ESRD (end stage renal disease) (HCC) (Primary Dx) 01/04/2025 10:00 AM CDT - 01/04/2025 11:59 PM CDT Hospital Encounter [facility] [address] [place] [address] ESRD (end stage renal disease) (HCC) Discharge Disposition: Discharge to home or self care 12/29/2024 Telephone [facility] Cardiology [facility] Office Building [address] [place] [phone] Luca Lott MD transplant candidacy 12/25/2024 8:00 AM SIGN WRITER LETTERER OR PAINTER - 12/25/2024 10:05 AM SIGN WRITER LETTERER OR PAINTER Surgery [facility] [place] [address] [place] [phone] Luca Lott MD PCI KARINA MAJOR CORONARY C9600 - [id number] 12/25/2024 6:32 AM SIGN WRITER LETTERER OR PAINTER - 12/25/2024 3:55 PM SIGN WRITER LETTERER OR PAINTER Hospital Encounter [facility] [address] [address] Luca Lott MD Coronary artery disease involving salt river coronary artery of salt river heart with angina pectoris [I25.119] (Primary Dx); Chest pain, unspecified type; Chest pain Discharge Disposition: Discharge to home or self care 12/25/2024 Telephone [facility] Cardiology [facility] Office Building [address] [place] [phone] Luca Lott MD post PCI recs 12/24/2024 Orders Only [facility] Scanning, Provider 12/22/2024 Orders Only [facility] Scanning, Provider 12/22/2024 Telephone [facility] Cardiology [facility] 8th [place] [address] [place] [address] Luca Lott MD critical lab result 12/14/2024 Telephone [facility] Cardiology [facility] Medical Office Building [address] [place] [address] Luca Lott MD PCI per Dr. Lott 11/27/2024 10:00 AM SIGN WRITER LETTERER OR PAINTER - 11/27/2024 11:59 PM SIGN WRITER LETTERER OR PAINTER Hospital Encounter [facility] [address] [place] [address] ESRD (end stage renal disease) (HCC) Discharge Disposition: Discharge to home or self care 11/19/2024 2:02 PM SIGN WRITER LETTERER OR PAINTER - 11/19/2024 3:42 PM SIGN WRITER LETTERER OR PAINTER Surgery [facility] [address] [place] [address] Luca Lott MD LEFT HEART CATHETERIZATION WITH CORONARY ANGIOGRAPHY AND WITH OR WITHOUT LEFT VENTRICULOGRAM [id number] 11/19/2024 11:04 AM SIGN WRITER LETTERER OR PAINTER - 11/19/2024 7:20 PM SIGN WRITER LETTERER OR PAINTER Hospital Encounter [facility] [address] [address] Luca Lott MD Coronary artery disease involving salt river coronary artery of salt river heart with angina pectoris (HCC) [I25.119] (Primary Dx); Chest pain, unspecified type Discharge Disposition: Discharge to home or self care 11/18/2024 11:45 AM SIGN WRITER LETTERER OR PAINTER Office Visit [facility] Cardiology [facility] Medicine 8th [place] [address] [place] [address] Lane Ramos MD PhD SSS (sick sinus syndrome) (HCC) (Primary Dx) 11/18/2024 11:15 AM SIGN WRITER LETTERER OR PAINTER Ancillary Procedure [facility] Cardiology [facility] 8th [place] [address] [place] [address] SSS (sick sinus syndrome) ([facility]) (Primary Dx); Fitting or adjustment of cardiac pacemaker 11/17/2024 Orders Only [facility] Scanning, Provider from Last 3 Months Immunizations Immunization Administration [...] Procedure: PCI KARINA MAJOR CORONARY C9600 - [id number]; Surgeon: Luca Lott MD; Location: [facility] C[facility] 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 Medical History Medical History Date Comments Hypertension Essential Thyroid mass s/p resection Coronary artery disease invo lving salt river heart 02/07/2019 Added automatically from reCohesiveFT uest for surgery [id number] (LAD, LCA) Volume overload 02/14/2019 Leukocytosis 02/21/2019 Pleural effusion 02/2019 Status post lef t thoracostomy 02/27/2019 Hypothyroidism 01/2019 Postoperative Anemia Personal history of other me dical treatment History of combined restrictive/obstructive lung disease, A-fib ([facility]) 01/2019 Postoperative pa roxysmal A. 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[facility]) Spinal stenosis Polycystic kidney disease ESRD on peritoneal dialysis ([facility]) Heart murmur [place] (myocardial infarction) ([facility]) CHF (congestive heart failure) ([facility]) Nausea 05/10/2019 Aortic valve insufficiency, acquired 05/19/2024 [...] on file Legal Sex Female 4:06 AM SIGN WRITER LETTERER OR PAINTER Gender Identity Female 01/16/2024 11:18 AM CDT Sexual Orientation Straight 01/16/2024 11 :18 AM CDT Obstetrics History Comments Status Post Hysterectomy Last Filed Vital Signs Vital Sign Reading Time Taken Comments Blood Pressure 88/62 02/05/2025 2:30 PM CDT Pulse 63 02/05/2025 2:30 PM CDT Temperature 36.6 C (97.9 F) 01/28/2025 7:43 AM CDT Respiratory Rate 18 12/25/2024 3:23 PM SIGN WRITER LETTERER OR PAINTER Oxygen Saturation 93% 02/05/2025 2:30 PM CDT Inhaled Oxygen Concentration - - Weight 56.4 kg (124 lb 6.4 oz) 02/05/2025 2:30 P M CDT Height 162.6 cm (5' 4 ) 01/28/2025 7:43 AM CDT Body Mass Index 21.35 01/28/2025 7:43 AM CDT Plan of Treatment Scheduled Procedures Name Priority [...] Vaccine (1 of 2) 2021 Influenza Vaccine (Season Ended) 2025 10/21/19 Hepatitis C Screening Completed 01/28/2025 , 03/06/2023, 05/04/2021 Medical Devices Implanted Type Area Lidar Analyst Device Identifier Shelf Expiration Date Model / Serial / Lot Angio-Seal Evolution 6fr Vascular Closure [id number] - [id number] - [id number] Implanted:Qty: 1 on 03/09/2022 by Luca Lott MD at [facility] Collagen Right: Femoral Terumo [employer] Pam 09/19/2022 [id number] / [id number] / [id number] Ter[employer] Pam Angio-Seal Vip 6fr Closere Device 079969 - [id number] - [id number] Implanted:Qty: 1 on 07/24/2022 by Luca Lott MD at [facility] Collagen [employer] Pam 03/20/2023 [id number] / [id number] / [id number] [employer] Pam Angio-Seal Vip 6fr Closere Device 231814 - [id number] - [id number] Implanted:Qty: 1 on 05/21/2024 at [facility] Collagen Right: Common Femoral Artery [employer] Pam 01/09/2025 [id number] / [id number] / [id number] Ter[employer] Pam Angio-Seal Vip Bondek-Plus 8fr .038in 70cm Hemostatic Latex Free 553379 - [id number] - [id number] Implanted:Qty: 1 on 05/21/2024 by Felipe Gerber MD at [facility] Collagen Right: Common Femoral Artery [employer] Pam 01/06/2025 160299 / [id number] / [id number] Medtronic Cardiac Rhythm Mgmt 5076-52 Capsurefix Novus 6.2fr 2mm 52cm Bipolar Screw In Implantable Latex Free - [id number] - [id number] Implanted:Qty: 1 on 05/15/2019 [address] Lane Ramos MD PhD at [facility] Lead Medtronic Inc 03/11/2021 5076-52 / [id number] / Medtronic Cardiac Rhythm Mgmt 5076-45 Capsurefix Novus 6.2fr 2mm 45cm Bipolar Screw In Implantable - [id number] - [id number] Implanted:Qty: 1 on 05/15/2019 [address] Lane Ramos MD PhD at [facility] Lead Medtronic Inc 03/30/2021 5076-45 / [id number] / Picfair [id number] Linear 7.5fr 6in Insertion Kit Supervisor Metal Furniture Fabrication Introducer Sheath - [id number] Implanted:Qty: 1 on 02/10/2019 by Luca Lott MD at [facility] Other - see comments Picfair [id number] -[id number] / / Description:IABP Medtronic Inc [id number] Blanco Curl Cath Beta-Cap Holden 15fr 57cm 2 Cuff Clamp Adapter - S0 - [id number] Implanted:Qty: 1 on 11/21/2021 by Carlos Kamara MD at [facility] Other - see comments N/A: Abdomen Medtronic Inc 11/30/2022 8811-31 3015 / 0 / [id number] Medtronic Cardiac Rhythm Mgmt W1dr01 Tereza Wirelessly Pacemaker Cardiac - [id number] - [id number] Implanted:Qty: 1 on 05/15/2019 [address] Lane Ramos MD PhD at [facility] Pacemaker Medtronic Inc [id number] 09/17/2020 W1DR01 / [id number] / Jamil Lifesciences Valve Aortic Trnscath Brown 3 Ultra Resilia 20mm [id number] - [id number] - [id number] Implanted:Qty: 1 on 05/21/2024 by Felipe Gerber MD at [facility] Prosthetic Valve N/A: Aortic Valve Jamil Lif[employer]iences 02/27/2027 [id number] [id number] / [id number] / Medtronic Inc Resolute [place] 4mm 2.1-2.7fr 12mm 140cm Rapid Exchange Radiopaque [id number] - [id number] - [id number] Implanted:Qty: 1 on 03/09/2022 by Luca Lott MD at [facility] Stent Left: Coronary Medtronic Inc 12/06/2022 [id number] 012UX / [id number] / [id number] Description:LAD Biotronik Inc Stent Coronary De Rx Cocr Ors Msn 4.0x15mm 649907 - [id number] - [id number] Implanted:Qty: 1 on 07/24/2022 by Luca Lott MD at [facility] Stent [employer] Inc 09/05/2023 846416 / [id number] / [id number] Medtronic Card Vasc Surgery 4.0 X 15mm Clive Pitt Rx Coronary Stent [id number] - [id number] - [id number] Implanted:Qty: 1 on 11/19/2024 by Luca Lott MD at [facility] Stent N/A: Saphenous Vein Graft Medtronic Card Vasc Surgery 05/05/2027 [id number] / [id number] / [id number] Medtronic Card Vasc Surgery 2.50 X 12mm Clive Pitt Rx Coronary Stent [id number] - [id number] - [id number] Implanted:Qty: 1 on 12/25/2024 by Luca Lott MD at [facility] Stent Medtronic Card Vasc Surgery 06/03/2027 [id number] [id number] / [id number] / [id number] Painter Vascular System Closure Repair Femoral Artery Suture Mediated Perclose Prostyle 91871-46 - [id number] - [id number] Implanted:Qty: 1 on 05/21/2024 by Felipe Gerber MD at [facility] Vascular Closure Device Left: Common Femoral Artery Painter Vascular 02/17/2026 77535-9 3 / [id number] / [id number] Ter[employer] Pam Angio-Seal Vip 6fr Closere Device 070674 - [id number] - [id number] Implanted:Qty: 1 on 11/19/2024 by Luca Lott MD at [facility] Vascular Closure Device N/A: Saphenous Vein Graft [employer] Pam 04/29/2025 419177 / [id number] / [id number] Ter[employer]o Medical Pam Angio-Seal Vip 6fr Closere Device 325684 - [id number] - [id number] Implanted:Qty: 1 on 12/25/2024 by Sanket Quiroz MD at [facility] Vascular Closure Device Right: Common Femoral Artery [employer] Pam 06/30/2025 554017 / [id number] / [id number] Description:RFA [employer] Pam Angio-Seal Vip Bondek-Plus 8fr .038in 70cm Hemostatic Latex Free 200685 - [id number] - [id number] Implanted:Qty: 1 on 12/25/2024 by Sanket Quiroz MD at [facility] Vascular Closure Device Right: Femoral Vein [employer] Pam 07/21/2025 065132 / [id number] / [id number] Description:RFV [employer] Pam [id number] Supple Ronna-Guard Hopkins Processing 4x4cm Patch Cardiovascular - [id number] - [id number] Implanted:Qty: 1 on 02/11/2019 by Christopher Holman MD at [facility] N/A: Chest [employer] Pam 06/03/2023 [id number] / [id number] 0 / [id number] Jamil Lif[employer]iences [id number] Certitude Brown 3 Atrion 18fr Transcatheter Introducer Crimper - [id number] - [id number] Implanted:Qty: 1 on 02/11/2019 by Christopher Holman MD at [facility] N/A: Heart Jamil [employer]iences [id number] / [id number] / Medtronic Inc [id number] Blanco Curl Cath Beta-Cap Holden 15fr 57cm 2 Cuff Clamp Adapter - [id number] Implanted:Qty: 1 on 12/27/2021 by Margarita Montoya MD at [facility] N/A: Abdomen Medtronic Inc 10/14/2023 8811-31 3015 / / Procedures Procedure Name Priority Date/Time Associated Diagnosis Comments XR ORTHOPANTOGRAM/PANOREX Schedule Routine, Read Routine (OP Routine) 01/28/2025 10:32 AM CDT ESRD (end stage renal disease) (HCC) XR CHEST PA LATERAL 2 VIEWS Schedule Routine, Read Routine (OP Routine) 01/28/2025 10:20 AM CDT ESRD (end stage renal disease) (HCC) ECG 12-LEAD Routine 01/28/2025 10:10 AM CDT ESRD (end stage renal disease) (HCC) MISLABLED TEST Routine 01/28/2025 9:47 AM CDT EGFR Routine 01/28/2025 9:42 AM CDT ESRD (end stage renal disease) (HCC) CBC WITHOUT DIFFERENTIAL Routine 01/28/2025 9:42 AM CDT COMPREHENSIVE METABOLIC PANEL Routine 01/28/2025 9:42 AM CDT ESRD (end stage renal disease) (HCC) PHOSPHORUS Routine 01/28/2025 9:42 AM CDT ESRD (end stage renal disease) (HCC) PTH Routine 01/28/2025 9:42 AM CDT ESRD (end stage renal disease) (HCC) HEMOGLOBIN A1C Routine 01/28/2025 9:42 AM CDT ESRD (end stage renal disease) (HCC) HIV 1/2 ANTIBODY PLUS P24 ANTIGEN Routine 01/28/2025 9:42 AM CDT ESRD (end stage renal disease) (HCC) HEPATITIS B SURFACE ANTIBODY (IMMUNE STATUS) Routine 01/28/2025 9:42 AM CDT ESRD (end stage renal disease) (HCC) HEPATITIS B SURFACE ANTIGEN Routine 01/28/2025 9:42 AM CDT ESRD (end stage renal disease) (HCC) HEPATITIS C ANTIBODY Routine 01/28/2025 9:42 AM CDT ESRD (end stage renal disease) (HCC) HEPATITIS B CORE ANTIBODY, TOTAL Routine 01/28/2025 9:42 AM CDT ESRD (end stage renal disease) (HCC) HLA ANTIBODY SCREEN - SAB (CLASS I AND CLASS II) Routine 01/22/2025 10:00 AM CDT HLA ANTIBODY SCREEN BY PRA OR SAB PER SCHEDULE (CLASS I AND CLASS II) Routine 01/04/2025 10:00 AM CDT ESRD (end stage renal disease) (HCC) POC BLOOD GAS AND CHEMISTRIES, VENOUS Routine 12/25/2024 2:21 PM SIGN WRITER LETTERER OR PAINTER EGFR Routine 12/25/2024 1:19 PM SIGN WRITER LETTERER OR PAINTER CRITICAL RESULT CALLBACK CHEMISTRY Routine 12/25/2024 1:19 PM SIGN WRITER LETTERER OR PAINTER DIFFERENTIAL AUTO Routine 12/25/2024 1:1 9 PM SIGN WRITER LETTERER OR PAINTER CBC WITH AUTO DIFFERENTIAL Routine 12/25/2024 1:19 PM SIGN WRITER LETTERER OR PAINTER BASIC METABOLIC PANEL Routine 12/25/2024 1:19 PM SIGN WRITER LETTERER OR PAINTER KARINA MAJOR CORONARY Routine 12/25/2024 10:05 AM SIGN WRITER LETTERER OR PAINTER Chest pain, unspecified type POCT ACTIVATED CLOTTING TIME, LOW RANGE Routine 12/25/2024 10:05 AM SIGN WRITER LETTERER OR PAINTER POCT ACTIVATED CLOTTING TIME, LOW RANGE Routine 12/25/2024 9:24 AM SIGN WRITER LETTERER OR PAINTER POCT ACTIVATED CLOTTING TIME, LOW RANGE Routine 12/25/2024 8:58 AM SIGN WRITER LETTERER OR PAINTER TYPE AND SCREEN Timed 12/25/2024 8:13 AM SIGN WRITER LETTERER OR PAINTER POC BLOOD GAS AND CHEMISTRIES, ARTERIAL Routine 12/25/2024 8:12 AM SIGN WRITER LETTERER OR PAINTER POC BLOOD GAS AND CHEMISTRIES, ARTERIAL Routine 12/25/2024 8:08 AM SIGN WRITER LETTERER OR PAINTER ECG 12-LEAD Routine 12/25/2024 6:56 AM SIGN WRITER LETTERER OR PAINTER SCAN - LABS 12/24/2024 SCAN - LABS 12/22/2024 CBC WITH AUTO DIFFERENTIAL Routine 12/21/2024 12:48 PM SIGN WRITER LETTERER OR PAINTER Chest pain, unspecified type BASIC METABOLIC PANEL Routine 12/21/2024 12:48 PM SIGN WRITER LETTERER OR PAINTER Chest pain, unspecified type HLA ANTIBODY SCREEN - SAB (CLASS I AND CLASS II) Routine 11/27/2024 10:00 AM SIGN WRITER LETTERER OR PAINTER ESRD (end stage renal disease) (HCC) HLA ANTIBODY SCREEN BY PRA OR SAB PER SCHEDULE (CLASS I AND CLASS II) Routine 11/27/2024 10:00 AM SIGN WRITER LETTERER OR PAINTER ESRD (end stage renal disease) (HCC) EGFR Routine 11/19/2024 6:00 PM SIGN WRITER LETTERER OR PAINTER DIFFERENTIAL AUTO Routine 11/19/2024 6:0 0 PM SIGN WRITER LETTERER OR PAINTER CBC WITH AUTO DIFFERENTIAL Routine 11/19/2024 6:00 PM SIGN WRITER LETTERER OR PAINTER BASIC METABOLIC PANEL Routine 11/19/2024 6:00 PM SIGN WRITER LETTERER OR PAINTER POCT ACTIVATED CLOTTING TIME, LOW RANGE Routine 11/19/2024 4:42 PM SIGN WRITER LETTERER OR PAINTER POCT ACTIVATED CLOTTING TIME, LOW RANGE Routine 11/19/2024 3:23 PM SIGN WRITER LETTERER OR PAINTER LEFT HEART CATHETERIZATION WITH CORONARY ANGIOGRAPHY AND WITH AND WITHOUT LEFT VENTRICULOGRAM Routine 11/19/2024 2:50 PM SIGN WRITER LETTERER OR PAINTER Chest pain, unspecified type POCT ACTIVATED CLOTTING TIME, LOW RANGE Routine 11/19/2024 2:49 PM SIGN WRITER LETTERER OR PAINTER POCT ACTIVATED CLOTTING TIME, LOW RANGE Routine 11/19/2024 2:30 PM SIGN WRITER LETTERER OR PAINTER POCT ACTIVATED CLOTTING TIME, LOW RANGE Routine 11/19/2024 2:01 PM SIGN WRITER LETTERER OR PAINTER TYPE AND SCREEN Timed 11/19/2024 2:01 PM SIGN WRITER LETTERER OR PAINTER POCT ACTIVATED CLOTTING TIME, LOW RANGE Routine 11/19/2024 1:53 PM SIGN WRITER LETTERER OR PAINTER POCT ACTIVATED CLOTTING TIME, LOW RANGE Routine 11/19/2024 1:49 PM SIGN WRITER LETTERER OR PAINTER POCT OXYHEMOGLOBIN - DEVICE Routine 11/19/2024 1:27 PM SIGN WRITER LETTERER OR PAINTER POCT OXYHEMOGLOBIN - DEVICE Routine 11/19/2024 1:26 PM SIGN WRITER LETTERER OR PAINTER POCT OXYHEMOGLOBIN - DEVICE Routine 11/19/2024 1:26 PM SIGN WRITER LETTERER OR PAINTER POC BLOOD GAS AND CHEMISTRIES, ARTERIAL Routine 11/19/2024 11:45 AM SIGN WRITER LETTERER OR PAINTER ECG 12-LEAD Routine 11/19/2024 11:16 AM SIGN WRITER LETTERER OR PAINTER DEVICE CHECK - IN OFFICE Routine 11/18/2024 11:20 AM SIGN WRITER LETTERER OR PAINTER Fitting or adjustment of cardiac pacemaker SSS (sick sinus syndrome) (HCC) SCAN - LABS 11/17/2024 from Last 3 Months Results * XR Orthopantogram Panorex (01/28/2025 10:32 AM CDT) Anatomical Region Laterality Modality Head and Neck N/A Panoramic X-Ray 01/28/2025 10:4 2 AM CDT Impressions 01/28/2025 10:42 AM CDT 1. No large dental caries or periapical lucency. Electronically signed by: Amanuel Pena M.D. Narrative 01/28/2025 10:42 AM CDT EXAMINATION: XR ORTHOPANTOGRAM/PANOREX HISTORY: Kidney Transplant FINDINGS: Panoramic view of the mandible is read with comparison to 03/06/2023. Prior dental extractions, dental restorations and root canals again noted. No large dental caries or periapical lucency. Mandible and imaged portions of the temporomandibular joints are intact. Procedure Note Amanuel Hall MD - 01/28/2025 EXAMINATION: XR ORTHOPANTOGRAM/PANOREX HISTORY: Kidney Transplant FINDINGS: Panoramic view of the mandible is read with comparison to 03/06/2023. Prior dental extractions, dental restorations and root canals again noted. No large dental caries or periapical lucency. Mandible and imaged portions of the temporomandibular joints are intact. IMPRESSION: 1. No large dental caries or periapical lucency. Electronically signed by: Amanuel Pena M.D. Tamar Tang MD IM XR PROCEDURES Final Result * XR Chest Pa Lateral 2 Views (01/28/2025 10:20 AM CDT) Anatomical Region Laterality Modality Body, Chest N/A Computed Radiogr aphy 01/28/2025 10:5 3 AM CDT Impressions 01/28/2025 11:17 AM CDT The current study is compared with the prior radiograph dated 05/24/2024 at 3:06 PM. Patient is status post median sternotomy. Transcatheter aortic valve replacement noted. Right subclavian approach pacer device with leads overlying the right atrium and right ventricle. Bilateral breast implants are present. Blunting of the left costophrenic angle may represent a small left pleural effusion versus scarring. No focal consolidation or pneumothorax. Stable cardiomediastinal silhouette. Dictated by: Wero Molina M.D. The radiology attending physician has personally reviewed this study, and had reviewed and/or edited this written report and agrees with it. Electronically signed by: Rc Boo M.D. Narrative 01/28/2025 11:17 AM CDT EXAMINATION: 2 view chest radiograph Procedure Note Rc Boo MD - 01/28/2025 EXAMINATION: 2 view chest radiograph IMPRESSION: The current study is compared with the prior radiograph dated 05/24/2024 at 3:06 PM. Patient is status post median sternotomy. Transcatheter aortic valve replacement noted. Right subclavian approach pacer device with leads overlying the right atrium and right ventricle. Bilateral breast implants are present. Blunting of the left costophrenic angle may represent a small left pleural effusion versus scarring. No focal consolidation or pneumothorax. Stable cardiomediastinal silhouette. Dictated by: Wero Molina M.D. The radiology attending physician has personally reviewed this study, and had reviewed and/or edited this written report and agrees with it. Electronically signed by: Rc Boo M.D. Tamar Tang MD IMG XR PROCEDURES Final Result * ECG 12 lead (01/28/2025 10:10 AM CDT) Pathologist [facility] Ventricular Rate EKG/Min 79 BPM [facility] Atrial Rate 79 BPM [facility] MS-Interval (MSEC) 164 ms [facility] QRS-Interval (MSEC) 88 ms [facility] QT-Interval (MSEC) 396 ms [facility] QTc 454 ms [facility] P [place] 112 degrees [facility] R [place] -24 degrees [facility] T [place] 129 degrees [facility] Diagnosis Atrial-paced rhythm in a pattern of bigeminy Anteroseptal infarct (cited on 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-MAY-2024) ST & T wave abnormality, consider lateral ischemia Abnormal ECG When compared with ECG of 25-DEC-2024 06:56, Premature atrial complexes are no longer Present Confirmed by HARJINDER HANDY M.D ([id number]) on 01/29/2025 11:51:51 AM [facility] 01/28/2025 10:1 0 AM CDT 01/29/2025 11:51 AM CDT Tamar Tang MD ECG ORDERABLES Final Result [facility] * Mislabeled Test (01/28/2025 9:47 AM CDT) Location Other location Reason No Signature On Blood Bank Specimen [facility] Mislabel resolution Testing canceled [facility] Blood 01/28/2025 9:47 AM CDT 01/28/2025 11:45 AM CDT Abigail Vides MD LAB BLOOD ORDERABLES Final Result Performing Organization Address [facility] Co de Phone Number [facility] Department [place] [place] [address] * (ABNORMAL) eGFR (01/28/2025 9:42 AM CDT) eGFR 3(L) >=60 mL/min/1. 73 m2 Comment: [...] interpretive data was last reviewed 2021. Blood 01/28/2025 9:42 AM CDT 01/28/2025 11:07 AM CDT us Tamar Tang MD LAB BLOOD ORDERABLES Final Res ult Performing Organization Address City/[facility]/ZIP Co de Phone Number [facility] Department [place] [employer] [place] [address] * HIV 1/2 Antibody plus p24 Antigen Blood (01/28/2025 9:42 AM CDT) HIV 1/2 ab + p24 ag Nonreactive Nonreactive Comment:Nonreactive for HIV- 1 antigen and HIV-1/HIV-2 antibodies. No laboratory evidence of HIV infection. If acute HIV infection is suspected, consider testing for HIV-1 RNA. Current interpretive data was last revised on 22. Blood 01/28/2025 9:42 AM CDT 01/28/2025 10:56 AM CDT Tamar Tang MD LAB MICROBIOLOGY - GENERAL ORD ERABLES Final Result Performing Organization Address [facility] Co de Phone Number [facility] Department [place] [address] * Hepatitis C antibody Blood (01/28/2025 9:42 AM CDT) Pathologist [facility] Hep C Ab Nonreactive Nonreactive Comment:Antibodies to HCV no t detected. Does NOT exclude the possibility of recent exposure to HCV. Current interpretive data was last revised on 22 Blood 01/28/2025 9:42 AM CDT 01/28/2025 10:56 AM CDT Tamar Tang MD LAB MICROBIOLOGY - GENERAL ORD ERABLES Final Result Performing Organization Address City/[facility] Co de Phone Number [facility] Department [place] [address] * Hepatitis B core antibody, total Blood (01/28/2025 9:42 AM CDT) Pathologist [facility] Hep B core IgG/IgM Nonreactive Nonreactive Blood 01/28/2025 9:42 AM CDT 01/28/2025 10:56 AM CDT Tamar Tang MD LAB MICROBIOLOGY - GENERAL ORD ERABLES Final Result Performing Organization Address City/[facility] Co de Phone Number [facility] [place] [address] * Hepatitis B surface antibody (immune status) Blood (01/28/2025 9:42 AM CDT) [facility] HBsAb (immune status) Nonreactive Comment:This result is consi stent with a lack of immunity to Hepatitis B Virus when used in the setting of routine screening. Current interpretative data was last revised on 22 Blood 01/28/2025 9:42 AM CDT 01/28/2025 10:56 AM CDT Tamar Tang MD LAB MICROBIOLOGY - GENERAL ORD ERABLES Final Result [facility] [place] [address] * Hepatitis B Surface Antigen Blood (01/28/2025 9:42 AM CDT) [facility] HepBsAg Nonreactive Nonreactive Blood 01/28/2025 9:42 AM CDT 01/28/2025 10:56 AM CDT Tamar Tang MD LAB MICROBIOLOGY - GENERAL ORD ERABLES Final Result [facility] Department [place] [address] * (ABNORMAL) CBC without differential (01/28/2025 9:42 AM CDT) [facility] WBC 5.32 3.80 - 9.90 K/cumm Hgb 13.1 11.9 - 15.5 g/dL [facility] Hct 41.5 35.6 - 45.5 % [facility] Plt 156 150 - 400 K/cumm [facility] MPV 10.5 9.1 - 12.3 fL [facility] RBC 4.64 3.90 - 5.20 M/cumm [facility] MCV 89.4 81.3 - 96.4 fL [facility] MCH 28.2 27.1 - 33.3 pg [facility] MCHC 31.6(L) 32.3 - 35.7 g/dL [facility] RDW CV 16.1(H) 11.1 - 14.9 % [facility] RDW SD 51.8(H) 35.7 - 48.1 fL [facility] NRBC abs 0.00 0.00 - 0.01 K/cumm [facility] Blood 01/28/2025 9:42 AM CDT 01/28/2025 10:58 AM CDT Abigail Vides MD LAB BLOOD ORDERABLES Final Result Performing Organization Address [facility] de Phone Number [facility] Department [place] [address] * (ABNORMAL) Phosphorus (01/28/2025 9:42 AM CDT) Phosphorus, pl 7.4(H) 2.3 - 4.5 mg/dL Blood 01/28/2025 9:42 AM CDT 01/28/2025 10:56 AM CDT Tamar Tang MD LAB BLOOD ORDERABLES Final Res ult Performing Organization Address [facility] de Phone Number [facility] Department [place] [address] * PTH (01/28/2025 9:42 AM CDT) PTH 43 15 - 65 pg/mL Blood 01/28/2025 9:42 AM CDT 01/28/2025 10:56 AM CDT Tamar Tang MD LAB BLOOD ORDERABLES Final Res ult Performing Organization Address [facility] Co de Phone Number [facility] Department [place] [address] * (ABNORMAL) Hemoglobin A1c (01/28/2025 9:42 AM CDT) Hgb A1C 5.8(H) 4.0 - 5.6 % Estimated Average Glucose 120 mg/dL [facility] Comment: The ADA recommends reporting an estimated Average Glucose (eAG) with all Hemoglobin A1c results using the equation derived from a study of 507 normal and diabetic adults. Minority populations were underrepresented and children were not included. (Diabetes Care 2020; 43(S1): S66-S76). The eAG is not equivalent to a fasting glucose. Blood 01/28/2025 9:42 AM CDT 01/28/2025 10:56 AM CDT us Tamar Tang MD LAB BLOOD ORDERABLES Final Res ult [facility] Department [place] [address] * (ABNORMAL) Comprehensive metabolic panel (01/28/2025 9:42 AM CDT) Pathologist [facility] Sodium 137 135 - 145 mmol/L Potassium, pl 5.7(H) 3.3 - 4.9 mmol/L [facility] Chloride 95(L) 97 - 110 mmol/L [facility] CO2 27 22 - 32 mmol/L [facility] Anion gap 15 2 - 15 mmol/L [facility] BUN 61(H) 6 - 25 mg/dL [facility] Creatinine 14.50(H) 0.60 - 1.10 mg/dL [facility] Glucose 77 70 - 199 mg/dL [facility] Comment: Interpretive Data Fasting glucose [...] classification and Diagnosis of Diabetes Diabetes Care 2022; 46: S19-S40. Current interpretive data was last revised 2022. Calcium 7.3(L) 8.5 - 10.3 mg/dL [facility] Bilirubin, total 0.3 0.1 - 1.2 mg/dL [facility] Protein, pl 6.8 6.5 - 8.5 g/dL [facility] Albumin 3.2(L) 3.5 - 5.0 g/dL [facility] Alk phos 64 40 - 130 Units/L [facility] ALT 20 7 - 45 Units/L [facility] AST 24 10 - 45 Units/L [facility] Blood 01/28/2025 9:42 AM CDT 01/28/2025 10:56 AM CDT us Tamar Tang MD LAB BLOOD ORDERABLES Final Res ult [facility] Department [place] [address] * HLA Antibody Screen - SAB (Class I and Class II) (01/22/2025 10:00 AM CDT) Class I Treatment EDTA HISTOTRAC Class I Dilution 1:1 H[facility]OTRAC Class I Tested Date 01/26/2025 HISTOTRAC Class I Result Positive HISTOTRAC Class I CPRA 21 [facility]OT[facility]AC Class I Increased Risk Cw5, Cw9 HISTOTRAC Class I Moderate Risk B82 HISTOTRAC Class I Low Risk A11; B54, B81 [facility]ISTOTRAC Class II Treatment EDTA HISTOTRAC Class II Dilution 1:1 HISTOTRAC Class II Tested Date 01/26/2025 HISTOTRAC Class II Result Positive HISTOTRAC Class II CPRA 17 H[facility]OTRAC Class II Moderate Risk DPB1*01:01 HISTOTRAC Class II Low Risk DPB1*01:01, DPB1*03:01, DPB1*06:01 [facility] 01/22/2025 10:0 0 AM CDT 01/27/2025 12:07 PM CDT Narrative HISTOTRAC - 01/27/2025 12:07 PM CDT Single-antigen HLA antibody screen is performed on serum samples using a method developed and validated by the [facility] HLA laboratory based on an FDA-approved IVD kit (LABScreen Single-Antigen, [employer], [place], [place]). All patient serum samples are pretreated with EDTA before the screen to prevent complement interference. Additional serum treatments, such as adsorption and DTT treatment, may be performed as indicated. Interpretive comments: Low risk: MFI [id number]. Moderate risk: MFI [id number]. Increased risk: MFI >/= 5000. The presence [...] antigens to avoid. Testing performed at the [facility], [address] [place] [address], 5th floor, [place], [address]. IA # [id number]. Rosa Millan, Ph.D., Maintenance Controller, HLA Laboratory Wilmer Prescott M.D., Ph.D., Bookkeeper Receptionist, HLA Laboratory Alma Payton, Ph.D., CLIA Bookkeeper Receptionist, [facility] Clinical Laboratories Current methodology and interpretive comments last revised on 11/15/2022. us Salina Hector MD LAB BLOOD ORDERABLES Final Resul t HISTOTRAC * HLA Antibody Screen by PRA or SAB per Schedule (Class I and Class II) (01/04/2025 10:00 AM CDT) Blood 01/04/2025 10:0 0 AM CDT Narrative HISTOTRAC - SIGN WRITER LETTERER OR PAINTER Sample received in lab and stored. No testing performed at this time. Salina Hector MD LAB BLOOD ORDERABLES Final Resul t [facility]OTR[facility] * (ABNORMAL) POC Blood Gas and Chemistries, Venous - (12/25/2024 2:21 PM SIGN WRITER LETTERER OR PAINTER) pH, [place] POC 7.29(L) 7.32 - 7.43 pCO2, [place] POC 47 40 - 50 mmHg [facility] pO2, [place] POC 29 mmHg [facility] Na, POC 131(L) 135 - 145 mmol/L [facility] K POC 5.3(H) 3.3 - 4.9 mmol/L [facility] Comment: Interpretive Data Not all point of [...] Sat, [place] POC (Nevin) 38 % [facility] Base excess, POC -4.0 mmol/L [facility] HCO3, [place] POC 23 20 - 30 mmol/L [facility] Hct, POC 33.0(L) 36.3 - 45.3 % [facility] Total Hb, POC 11.1(L) 11.9 - 15.5 g/dL [facility] Blood 12/25/2024 2:21 PM SIGN WRITER LETTERER OR PAINTER 12/25/2024 2:21 PM SIGN WRITER LETTERER OR PAINTER Luca Lott MD LAB POCT ORDERABLES - DEVICE Final Result Performing Organization Address [facility] Co de Phone Number [facility] Department [place] [address] * (ABNORMAL) eGFR (12/25/2024 1:19 PM SIGN WRITER LETTERER OR PAINTER) Pathologist [facility] eGFR 3(L) >=60 mL/min/1. 73 m2 [...] last reviewed 2021. Blood 12/25/2024 1:19 PM SIGN WRITER LETTERER OR PAINTER 12/25/2024 1:30 PM SIGN WRITER LETTERER OR PAINTER us Luca Lott MD LAB BLOOD ORDERABLES Final R esult Performing Organization Address City/[facility] Co de Phone Number [facility] Department [place] [address] * (ABNORMAL) Differential, auto (12/25/2024 1:19 PM SIGN WRITER LETTERER OR PAINTER) [facility] Neutrophil abs 5.1 1.5 - 6.5 K/cumm Imm gran abs 0.0 0.0 - 0.1 K/cumm [facility] Lymphocyte abs 0.7(L) 0.8 - 3.3 K/cumm [facility] Monocyte abs 0.4 0.2 - 0.8 K/cumm [facility] Eosinophil abs 0.1 0.0 - 0.5 K/cumm [facility] Basophil abs 0.0 0.0 - 0.1 K/cumm [facility] Neutrophil pct 80.1 % [facility] Comment: Interpretive Data Percent cell count reference ranges are not reported, since discordance with absolute values may lead to misinterpretation of CBC data. Current Interpretive Data was last revised on 2018. Imm gran pct 0.5 % [facility] Comment: Interpretive Data Percent cell count reference ranges are not reported, since discordance with absolute values may lead to misinterpretation of CBC data. Current Interpretive Data was last revised on 2018. Lymphocyte pct 11.3 % [facility] Comment: Interpretive Data Percent cell count reference ranges are not reported, since discordance with absolute values may lead to misinterpretation of CBC data. Current Interpretive Data was last revised on 2018. Monocyte pct 6.0 % [facility] Comment: Interpretive Data Percent cell count reference ranges are not reported, since discordance with absolute values may lead to misinterpretation of CBC data. Current Interpretive Data was last revised on 2018. Eosinophil pct 1.6 % [facility] Comment: Interpretive Data Percent cell count reference ranges are not reported, since discordance with absolute values may lead to misinterpretation of CBC data. Current Interpretive Data was last revised on 2018. Basophil pct 0.5 % [facility] Comment: Interpretive Data Percent cell count reference ranges are not reported, since discordance with absolute values may lead to misinterpretation of CBC data. Current Interpretive Data was last revised on 2018. Blood 12/25/2024 1:19 PM SIGN WRITER LETTERER OR PAINTER 12/25/2024 1:30 PM SIGN WRITER LETTERER OR PAINTER us Luca Lott MD LAB BLOOD ORDERABLES Final R esult [facility] Department [place] [address] * Critical Result Callback Chemistry (12/25/2024 1:19 PM SIGN WRITER LETTERER OR PAINTER) Date Notified [id number] Time Notified 1409 [facility] TestName Potassium Plas Calcium [facility] Called/Read Back Grisel B[facility]ES [facility] Credentials RN [facility] Called By RG [facility] Blood 12/25/2024 1:19 PM SIGN WRITER LETTERER OR PAINTER 12/25/2024 1:30 PM SIGN WRITER LETTERER OR PAINTER us Luca Lott MD LAB BLOOD ORDERABLES Final R esult [facility] Department [place] [address] * (ABNORMAL) CBC with auto differential (12/25/2024 1:19 PM SIGN WRITER LETTERER OR PAINTER) Pathologist [facility] WBC 6.3 3.8 - 9.9 K/cumm Hgb 11.2(L) 11.9 - 15.5 g/dL [facility] Hct 36.0 35.6 - 45.5 % [facility] Plt 106(L) 150 - 400 K/cumm [facility] MPV 10.1 9.1 - 12.3 fL [facility] RBC 3.99 3.90 - 5.20 M/cumm [facility] MCV 90.2 81.3 - 96.4 fL [facility] MCH 28.1 27.1 - 33.3 pg [facility] MCHC 31.1(L) 32.3 - 35.7 g/dL [facility] RDW CV 15.4(H) 11.1 - 14.9 % [facility] RDW SD 50.8(H) 35.7 - 48.1 fL [facility] NRBC abs 0.00 0.00 - 0.01 K/cumm [facility] Blood 12/25/2024 1:19 PM SIGN WRITER LETTERER OR PAINTER 12/25/2024 1:30 PM SIGN WRITER LETTERER OR PAINTER us Luca Lott MD LAB BLOOD ORDERABLES Final R esult [facility] Department [place] [address] * (ABNORMAL) Basic metabolic panel (12/25/2024 1:19 PM SIGN WRITER LETTERER OR PAINTER) Sodium 135 135 - 145 mmol/L Potassium, pl 6.3(C) 3.3 - 4.9 mmol/L [facility] Chloride 95(L) 97 - 110 mmol/L [facility] CO2 23 22 - 32 mmol/L [facility] Anion gap 17(H) 2 - 15 mmol/L [facility] BUN 59(H) 6 - 25 mg/dL [facility] Creatinine 15.37(H) 0.60 - 1.10 mg/dL [facility] Glucose 142 70 - 199 mg/dL [facility] Comment: Interpretive Data Fasting glucose [...] Calcium 5.7(C) 8.5 - 10.3 mg/dL [facility] Blood 12/25/2024 1:19 PM SIGN WRITER LETTERER OR PAINTER 12/25/2024 1:30 PM SIGN WRITER LETTERER OR PAINTER Luca Lott MD LAB BLOOD ORDERABLES Final R esult [facility] Department [place] [address] * KARINA MAJOR CORONARY (12/25/2024 10:05 AM SIGN WRITER LETTERER OR PAINTER) Anatomical Region Laterality Modality X-Ray Angiograph y Impressions 12/25/2024 3:40 PM SIGN WRITER LETTERER OR PAINTER Severely calcified left main stenosis status post [...] dictated or confirmed the above report. Luca Lott MD Narrative 12/25/2024 3:40 PM SIGN WRITER LETTERER OR PAINTER Table formatting from the original result was not included. Procedure: CORONARY ANGIOGRAM / PERCUTANEOUS CORONARY INTERVENTION Patient: Ginger Marshall is a 54 y.o. female : 1970 MR number: [id number] Date of Service: 12/25/2024 Bank Secrecy Act Officer: Luca Lott MD Fellow: Sanket Quiroz MD Referring physician: Oren INDICATION: CHF/Dyspnea NYHA Class 3 PATIENT CLINICAL PROFILE: Ginger Marshall is a 54 y.o. female with a [...] obtained. The patient was brought to the cath lab manager and placed on the table Bilateral groins [...] Flow 3. Equipment used: 7 JL 3.0, GetGlue Jackson IVUS Catheter, whisper wire, 2 0 x 12 emerge balloon, 225 x 12 NC emerge balloon, 2 5 x 12 NC emerge balloon, 2 5 shockwave lithotripsy balloon, 6 Estonian GuideLiner [place], 2 5 x 12 mm [...] right common femoral artery and a 7 Estonian sheath inserted without difficulty. Next we took a 7 Estonian JL 3 guiding catheter up and sat [...] was unsuccessful. We then placed a 6 Estonian GuideLiner down from with an additional 225 [...] without difficulty. COMPLICATIONS: None DIAGNOSTIC us Luca Lott MD CV CARDIAC CATH PROCEDURES F inal Result * (ABNORMAL) POCT Activated clotting time, low range (12/25/2024 10:05 AM SIGN WRITER LETTERER OR PAINTER) ACT 298(H) 123 - 168 sec POC Performer [id number] [facility] POC Device Number [id number] [facility] Blood 12/25/2024 10:0 5 AM SIGN WRITER LETTERER OR PAINTER 12/25/2024 10:05 AM SIGN WRITER LETTERER OR PAINTER Luca Lott MD LAB POCT ORDERABLES - DEVICE Final Result Performing Organization Address [facility] Co de Phone Number [facility]ERON [facility] Department [place] [address] * (ABNORMAL) POCT Activated clotting time, low range (12/25/2024 9:24 AM SIGN WRITER LETTERER OR PAINTER) ACT 329(H) 123 - 168 sec POC Performer [id number] [facility] POC Device Number [id number] [facility] Blood 12/25/2024 9:24 AM SIGN WRITER LETTERER OR PAINTER 12/25/2024 9:24 AM SIGN WRITER LETTERER OR PAINTER Luca Lott MD LAB POCT ORDERABLES - DEVICE Final Result Performing Organization Address City/[facility]/ZIP Co de Phone Number [facility] Department [place] [address] * (ABNORMAL) POCT Activated clotting time, low range (12/25/2024 8:58 AM SIGN WRITER LETTERER OR PAINTER) ACT >400(H) 123 - 168 sec POC Performer [id number] [facility] POC Device Number [id number] [facility] Blood 12/25/2024 8:58 AM SIGN WRITER LETTERER OR PAINTER 12/25/2024 8:58 AM SIGN WRITER LETTERER OR PAINTER Luca Lott MD LAB POCT ORDERABLES - DEVICE Final Result Performing Organization Address City/[facility]/ZIP Co de Phone Number [facility] [place] [address] * Type and screen (12/25/2024 8:13 AM SIGN WRITER LETTERER OR PAINTER) ABO Rh B Positive Jorge A, indirect Negative [facility] Blood 12/25/2024 8:13 AM SIGN WRITER LETTERER OR PAINTER 12/25/2024 8:20 AM SIGN WRITER LETTERER OR PAINTER Narrative [facility] - 12/25/2024 9:11 AM SIGN WRITER LETTERER OR PAINTER Has the patient had Daratumumab or Isatuximab in the past 6 months?->Unknown Luca Lott MD LAB BLOOD BANK TEST ORDERABL ES Final Result Performing Organization Address [facility] Co de Phone Number [facility] [place] [address] * (ABNORMAL) POC Blood Gas and Chemistries, Arterial - (12/25/2024 8:12 AM SIGN WRITER LETTERER OR PAINTER) pH, Art POC 7.39 7.35 - 7.45 pCO2, Art POC 32(L) 35 - 45 mmHg [facility] pO2, Art POC 84 83 - 108 mmHg [facility] Na, POC 135 135 - 145 mmol/L [facility] K POC 5.5(H) 3.3 - 4.9 mmol/L [facility] Comment: Interpretive Data Not all point of care methods assess for hemolysis. Confirm with instrument and retest K+ if not consistent with clinical signs and symptoms. Current Interpretive Data was last revised on 2024. Cl, POC 101 97 - 110 mmol/L [facility] Ionized Ca, POC 2.96(C) 4.50 - 5.10 mg/dL [facility] Glucose, POC 88 70 - 199 mg/dL [facility] Lactate, POC 1.1 0.7 - 2.0 mmol/L [facility] SO2 (nevin) arterial 96(H) 90 - 95 % [facility] Base excess, POC -4.7 mmol/L [facility] HCO3, Art POC 19(L) 20 - 30 mmol/L [facility] Hct, POC 36.0(L) 36.3 - 45.3 % [facility] Total Hb, POC 11.9 11.9 - 15.5 g/dL [facility] Blood 12/25/2024 8:12 AM SIGN WRITER LETTERER OR PAINTER 12/25/2024 8:12 AM SIGN WRITER LETTERER OR PAINTER us Luca Lott MD LAB POCT ORDERABLES - DEVICE Final Result Performing Organization Address [facility] de Phone Number [facility] [place] [address] * (ABNORMAL) POC Blood Gas and Chemistries, Arterial - (12/25/2024 8:08 AM SIGN WRITER LETTERER OR PAINTER) Pathologist [facility] K POC 5.2(H) 3.3 - 4.9 mmol/L Comment: Interpretive Data Not all point of care methods assess for hemolysis. Confirm with instrument and retest K+ if not consistent with clinical signs and symptoms. Current Interpretive Data was last revised on 2024. Blood 12/25/2024 8:08 AM SIGN WRITER LETTERER OR PAINTER 12/25/2024 8:08 AM SIGN WRITER LETTERER OR PAINTER Luca Lott MD LAB POCT ORDERABLES - DEVICE Final Result Performing Organization Address [facility] Co de Phone Number [facility] [place] [address] * ECG 12 lead (12/25/2024 6:56 AM SIGN WRITER LETTERER OR PAINTER) Ventricular Rate EKG/Min 82 BPM [facility] Atrial Rate 82 BPM [facility] QRS-Interval (MSEC) 86 ms [facility] QT-Interval (MSEC) 410 ms [facility] QTc 479 ms [facility] R [place] -10 degrees [facility] T [place] 155 degrees [facility] Diagnosis atrial-paced complexes Premature atrial complexes in a pattern of bigeminy Minimal voltage criteria for LVH, may be normal variant ( Holly product ) Septal infarct , age undetermined T wave abnormality, consider lateral ischemia Abnormal ECG When compared with ECG of 19-NOV-2024 11:16, no significant change Confirmed by HARJINDER HANDY M.D ([id number]) on 01/06/2025 3:41:43 PM [facility] 12/25/2024 6:56 AM SIGN WRITER LETTERER OR PAINTER 01/06/2025 3:41 PM CDT us Luca Lott MD ECG ORDERABLES Final Result [facility] * SCAN - LABS (12/24/2024) us Provider Scanning Final Result * SCAN - LABS (12/22/2024) us Provider Scanning Final Result * (ABNORMAL) CBC with auto differential (12/21/2024 12:48 PM SIGN WRITER LETTERER OR PAINTER) Pathologist [facility] WBC 7.0 3.4 - 10.8 x10E3/uL [facility] [...] - 01 Blood 12/21/2024 12:4 8 PM SIGN WRITER LETTERER OR PAINTER 12/21/2024 Narrative [facility] - 12/22/2024 7:09 AM SIGN WRITER LETTERER OR PAINTER Performed at: [address] [id number] Shirt Sewer: Marco Antonio Paiz PhD, Phone: [phone] Luca Lott MD LAB BLOOD ORDERABLES Final R esult [facility] * (ABNORMAL) Basic metabolic panel (12/21/2024 12:48 PM SIGN WRITER LETTERER OR PAINTER) [facility] Glucose 85 70 - 99 mg/dL [facility] [...] repeat analysis Blood 12/21/2024 12:4 8 PM SIGN WRITER LETTERER OR PAINTER 12/21/2024 Narrative [facility] - 12/22/2024 2:10 PM SIGN WRITER LETTERER OR PAINTER Performed at: [address] [id number] Shirt Sewer: Marco Antonio Paiz PhD, Phone: [phone] Specimen Comment: Called/faxed to DIANA DACOSTA on 12/22/2024 at 13:44 ET Specimen Comment: for tests Creatinine; Calcium us Luca Lott MD LAB BLOOD ORDERABLES Final R esult Performing Organization Address City/[facility]/ZIP Co de Phone Number [facility] * HLA Antibody Screen by PRA or SAB per Schedule (Class I and Class II) (11/27/2024 10:00 AM SIGN WRITER LETTERER OR PAINTER) Blood 11/27/2024 10:0 0 AM SIGN WRITER LETTERER OR PAINTER Narrative [facility] - SIGN WRITER LETTERER OR PAINTER Sample received in lab. Single Antigen Antibody Screen ordered. us Salina Hector MD LAB BLOOD ORDERABLES Final Resul t Performing Organization Address City/[facility] Co de Phone Number [facility] * HLA Antibody Screen - SAB (Class I and Class II) (11/27/2024 10:00 AM SIGN WRITER LETTERER OR PAINTER) Class I Treatment EDTA [facility] Class I [...] Risk DPB1*01:01 [facility] 11/27/2024 10:0 0 AM SIGN WRITER LETTERER OR PAINTER 12/03/2024 1:32 PM SIGN WRITER LETTERER OR PAINTER Narrative [facility] - 12/03/2024 1:32 PM SIGN WRITER LETTERER OR PAINTER Single-antigen HLA antibody screen is performed on serum samples using a method developed and validated by the [facility] HLA laboratory based on an FDA-approved IVD kit (LABScreen Single-Antigen, [employer], [place], [place]). All patient serum samples are pretreated with EDTA before the screen to prevent complement interference. Additional serum treatments, such as adsorption and DTT treatment, may be performed as indicated. Interpretive comments: Low risk: MFI [id number]. Moderate risk: MFI [id number]. Increased risk: MFI >/= 5000. The presence [...] antigens to avoid. Testing performed at the [facility], [address] [place] [address], 5th floor, [place], [address]. CLIA # [id number]. Rosa Millan, Ph.D., Maintenance Controller, HLA Laboratory Wilmer Prescott M.D., Ph.D., Bookkeeper Receptionist, HLA Laboratory Alma Payton, Ph.D., SITA Bookkeeper Receptionist, [facility] Clinical Laboratories Current methodology and interpretive comments last revised on 11/15/2022. us Salina Hector MD LAB BLOOD ORDERABLES Final Resul t [facility] * (ABNORMAL) eGFR (11/19/2024 6:00 PM SIGN WRITER LETTERER OR PAINTER) eGFR 3(L) >=60 mL/min/1. 73 m2 Comment: [...] last reviewed 2021. Blood 11/19/2024 6:00 PM SIGN WRITER LETTERER OR PAINTER 11/19/2024 6:10 PM SIGN WRITER LETTERER OR PAINTER us Luca Lott MD LAB BLOOD ORDERABLES Final R esult [facility] [place] [address] * (ABNORMAL) Differential, auto (11/19/2024 6:00 PM SIGN WRITER LETTERER OR PAINTER) Neutrophil abs 6.5 1.5 - 6.5 K/cumm Imm gran abs 0.0 0.0 - 0.1 K/cumm [facility] Lymphocyte abs 0.5(L) 0.8 - 3.3 K/cumm [facility] Monocyte abs 0.3 0.2 - 0.8 K/cumm [facility] Eosinophil abs 0.1 0.0 - 0.5 K/cumm [facility] Basophil abs 0.0 0.0 - 0.1 K/cumm [facility] Neutrophil pct 87.7 % [facility] Comment: Interpretive Data Percent cell count reference ranges are not reported, since discordance with absolute values may lead to misinterpretation of CBC data. Current Interpretive Data was last revised on 2018. Imm gran pct 0.3 % [facility] Comment: Interpretive Data Percent cell count reference ranges are not reported, since discordance with absolute values may lead to misinterpretation of CBC data. Current Interpretive Data was last revised on 2018. Lymphocyte pct 6.8 % [facility] Comment: Interpretive Data Percent cell count reference ranges are not reported, since discordance with absolute values may lead to misinterpretation of CBC data. Current Interpretive Data was last revised on 2018. Monocyte pct 3.4 % [facility] Comment: Interpretive Data Percent cell count reference ranges are not reported, since discordance with absolute values may lead to misinterpretation of CBC data. Current Interpretive Data was last revised on 2018. Eosinophil pct 1.5 % [facility] Comment: Interpretive Data Percent cell count reference ranges are not reported, since discordance with absolute values may lead to misinterpretation of CBC data. Current Interpretive Data was last revised on 2018. Basophil pct 0.3 % [facility] Comment: Interpretive Data Percent cell count reference ranges are not reported, since discordance with absolute values may lead to misinterpretation of CBC data. Current Interpretive Data was last revised on 2018. Blood 11/19/2024 6:00 PM SIGN WRITER LETTERER OR PAINTER 11/19/2024 6:04 PM SIGN WRITER LETTERER OR PAINTER us Luca Lott MD LAB BLOOD ORDERABLES Final R esult [facility] [place] [address] * (ABNORMAL) CBC with auto differential (11/19/2024 6:00 PM SIGN WRITER LETTERER OR PAINTER) [facility] WBC 7.4 3.8 - 9.9 K/cumm Hgb 11.6(L) 11.9 - 15.5 g/dL [facility] Hct 36.7 35.6 - 45.5 % [facility] Plt 150 150 - 400 K/cumm [facility] MPV 10.6 9.1 - 12.3 fL [facility] RBC 4.22 3.90 - 5.20 M/cumm [facility] MCV 87.0 81.3 - 96.4 fL [facility] MCH 27.5 27.1 - 33.3 pg [facility] MCHC 31.6(L) 32.3 - 35.7 g/dL [facility] RDW CV 14.6 11.1 - 14.9 % [facility] RDW SD 46.1 35.7 - 48.1 fL [facility] NRBC abs 0.00 0.00 - 0.01 K/cumm [facility] Blood 11/19/2024 6:00 PM SIGN WRITER LETTERER OR PAINTER 11/19/2024 6:04 PM SIGN WRITER LETTERER OR PAINTER Luca Lott MD LAB BLOOD ORDERABLES Final R esult [facility] [place] [address] * (ABNORMAL) Basic metabolic panel (11/19/2024 6:00 PM SIGN WRITER LETTERER OR PAINTER) [facility] Sodium 130(L) 135 - 145 mmol/L Potassium, pl 4.3 3.3 - 4.9 mmol/L [facility] Chloride 90(L) 97 - 110 mmol/L [facility] CO2 23 22 - 32 mmol/L [facility] Anion gap 17(H) 2 - 15 mmol/L [facility] BUN 57(H) 6 - 25 mg/dL [facility] Creatinine 13.87(H) 0.60 - 1.10 mg/dL [facility] Glucose 150 70 - 199 mg/dL [facility] Comment: Interpretive Data Fasting glucose [...] 2022. Calcium 6.9(L) 8.5 - 10.3 mg/dL [facility] Blood 11/19/2024 6:00 PM SIGN WRITER LETTERER OR PAINTER 11/19/2024 6:04 PM SIGN WRITER LETTERER OR PAINTER us Luca Lott MD LAB BLOOD ORDERABLES Final R esult Performing Organization Address City/[facility]/ZIP Co de Phone Number [facility] Department [place] [employer] [place] [address] * (ABNORMAL) POCT Activated clotting time, low range (11/19/2024 4:42 PM SIGN WRITER LETTERER OR PAINTER) ACT 171(H) 123 - 168 sec POC Performer [id number] [facility] POC Device Number [id number] [facility] Blood 11/19/2024 4:42 PM SIGN WRITER LETTERER OR PAINTER 11/19/2024 4:42 PM SIGN WRITER LETTERER OR PAINTER us Luca Lott MD LAB POCT ORDERABLES - DEVICE Final Result [facility] [place] [address] * (ABNORMAL) POCT Activated clotting time, low range (11/19/2024 3:23 PM SIGN WRITER LETTERER OR PAINTER) ACT 266(H) 123 - 168 sec POC Performer [id number] [facility] POC Device Number [id number] [facility] Blood 11/19/2024 3:23 PM SIGN WRITER LETTERER OR PAINTER 11/19/2024 3:23 PM SIGN WRITER LETTERER OR PAINTER us Luca Lott MD LAB POCT ORDERABLES - DEVICE Final Result [facility] [place] [address] * LEFT HEART CATHETERIZATION WITH CORONARY ANGIOGRAPHY AND WITH AND WITHOUT LEFT VENTRICULOGRAM (11/19/2024 2:50 PM SIGN WRITER LETTERER OR PAINTER) Anatomical Region Laterality Modality X-Ray Angiograph y Impressions 11/19/2024 4:18 PM SIGN WRITER LETTERER OR PAINTER Very severe stenosis of the vein graft [...] attempt intervention again. I would suggest a Breda 1 0 guiding catheter and consideration for shockwave versus atherectomy. I was present during the entire procedure and personally dictated or confirmed the above report. Luca Lott MD Narrative 11/19/2024 4:18 PM SIGN WRITER LETTERER OR PAINTER Procedure: CORONARY ANGIOGRAM / RIGHT HEART CATHETERIZATION/percutaneous coronary intervention Patient: Ginger Marshall is a 54 y.o. female : 1970 MR number: [id number] Date of Service: 11/19/2024 Bank Secrecy Act Officer: Luca Lott MD Fellow: Josesito Pabon MD Referring physician: No ref. provider found INDICATION: CHF/Dyspnea NYHA Class 3 PATIENT CLINICAL PROFILE: Ginger Marshall is a 54 y.o. female with a [...] obtained. The patient was brought to the cath lab manager and placed on the table Bilateral groins [...] coronary artery angiogram performed using a 6 Estonian JR4 catheter Right heart catheterization preformed with VANI Sheridan Percutaneous coronary intervention performed on the Proximal saphenous vein graft to the LAD. This was an ACC/AHA Type C. Initial Lesion Length 12mm and final lesion Length 15mm. Initial KAROLINA Flow 3 with visible thrombus present Final KAROLINA Flow 3. Equipment used: 6 3DRC, [place] Jackson IVUS Catheter, scion blue wire, 0.9 mm laser atherectomy catheter, 2 5 x 15 NC emerge balloon, a 3 0 x 12 mm AngioSculpt balloon, 4 0 by 15 NC emerge balloon, 4 0 x 15 resolute drug-eluting stent, 4 5 x 12 mm NC emerge balloon Attempted intervention on the ostial left main equipment used was a 6 Estonian JL 3.5 guiding catheter, she on black [...] than 300. We took up a 6 Estonian 3D RC that sat reasonably well in [...] or perforation. We then took our 6 Estonian JL 3.5 guiding catheter attempted to intubate [...] right femoral artery and placed a 6 Estonian Angio-Seal. Manual compression was performed on the venous sheath. COMPLICATIONS: None DIAGNOSTIC us Luca Lott MD CV CARDIAC CATH PROCEDURES F inal Result * (ABNORMAL) POCT Activated clotting time, low range (11/19/2024 2:49 PM SIGN WRITER LETTERER OR PAINTER) ACT 260(H) 123 - 168 sec POC Performer [id number] [facility] POC Device Number [id number] [facility] Blood 11/19/2024 2:49 PM SIGN WRITER LETTERER OR PAINTER 11/19/2024 2:49 PM SIGN WRITER LETTERER OR PAINTER Luca Lott MD LAB POCT ORDERABLES - DEVICE Final Result [facility] [place] [address] * (ABNORMAL) POCT Activated clotting time, low range (11/19/2024 2:30 PM SIGN WRITER LETTERER OR PAINTER) ACT 385(H) 123 - 168 sec POC Performer [id number] [facility] POC Device Number [id number] [facility] Blood 11/19/2024 2:30 PM SIGN WRITER LETTERER OR PAINTER 11/19/2024 2:30 PM SIGN WRITER LETTERER OR PAINTER us Luca Lott MD LAB POCT ORDERABLES - DEVICE Final Result Performing Organization Address [facility] de Phone Number [facility] [place] [address] * (ABNORMAL) POCT Activated clotting time, low range (11/19/2024 2:01 PM SIGN WRITER LETTERER OR PAINTER) ACT >400(H) 123 - 168 sec POC Performer [id number] [facility] POC Device Number [id number] [facility] Blood 11/19/2024 2:01 PM SIGN WRITER LETTERER OR PAINTER 11/19/2024 2:01 PM SIGN WRITER LETTERER OR PAINTER Luca Lott MD LAB POCT ORDERABLES - DEVICE Final Result Performing Organization Address [facility] de Phone Number [facility] [place] [address] * Type and screen (11/19/2024 2:01 PM SIGN WRITER LETTERER OR PAINTER) ABO Rh B Positive Jorge A, indirect Negative [facility] Blood 11/19/2024 2:01 PM SIGN WRITER LETTERER OR PAINTER 11/19/2024 2:14 PM SIGN WRITER LETTERER OR PAINTER Narrative [facility] - 11/19/2024 3:08 PM SIGN WRITER LETTERER OR PAINTER Has the patient had Daratumumab or Isatuximab in the past 6 months?->Unknown Luca Lott MD LAB BLOOD BANK TEST ORDERABL ES Final Result Performing Organization Address [facility] de Phone Number [facility] [place] [address] * (ABNORMAL) POCT Activated clotting time, low range (11/19/2024 1:53 PM SIGN WRITER LETTERER OR PAINTER) ACT >400(H) 123 - 168 sec POC Performer [id number] [facility] POC Device Number [id number] [facility] Blood 11/19/2024 1:53 PM SIGN WRITER LETTERER OR PAINTER 11/19/2024 1:53 PM SIGN WRITER LETTERER OR PAINTER Luca Lott MD LAB POCT ORDERABLES - DEVICE Final Result Performing Organization Address [facility] [facility] Co de Phone Number [facility] [place] [address] * (ABNORMAL) POCT Activated clotting time, low range (11/19/2024 1:49 PM SIGN WRITER LETTERER OR PAINTER) [facility] ACT 78(L) 123 - 168 sec POC Performer [id number] [facility] POC Device Number [id number] [facility] Blood 11/19/2024 1:49 PM SIGN WRITER LETTERER OR PAINTER 11/19/2024 1:49 PM SIGN WRITER LETTERER OR PAINTER Luca Lott MD LAB POCT ORDERABLES - DEVICE Final Result Performing Organization Address [facility] de Phone Number [facility] [place] [address] * (ABNORMAL) POCT oxyhemoglobin (11/19/2024 1:27 PM SIGN WRITER LETTERER OR PAINTER) [facility] Oxyhemoglobin 91.6 >=65.0 % [facility] Hemoglobin 11.2(L) 11.9 - 15.5 g/dL [facility] [place] [place] O2 content 14.3(L) 15.0 - 22.0 Vol % [facility] Anatomic Site aPOC Aorta [facility] Blood 11/19/2024 1:27 PM SIGN WRITER LETTERER OR PAINTER 11/19/2024 1:27 PM SIGN WRITER LETTERER OR PAINTER Luca Lott MD LAB POCT ORDERABLES - DEVICE Final Result Performing Organization Address [facility] de Phone Number [facility] [place] [address] * (ABNORMAL) POCT oxyhemoglobin (11/19/2024 1:26 PM SIGN WRITER LETTERER OR PAINTER) [facility] [place] Oxyhemoglobin 56.2(L) >=65.0 % [facility] Hemoglobin 11.0(L) 11.9 - 15.5 g/dL [facility] [place] O2 content 8.6(L) 15.0 - 22.0 Vol % [facility] Anatomic Site aPOC Pulm Artery [facility] Blood 11/19/2024 1:26 PM SIGN WRITER LETTERER OR PAINTER 11/19/2024 1:26 PM SIGN WRITER LETTERER OR PAINTER Luca Lott MD LAB POCT ORDERABLES - DEVICE Final Result Performing Organization Address [facility] Co de Phone Number [facility] [place] [address] * (ABNORMAL) POCT oxyhemoglobin (11/19/2024 1:26 PM SIGN WRITER LETTERER OR PAINTER) [facility] [place] Oxyhemoglobin 56.6(L) >=65.0 % [facility] Hemoglobin 10.9(L) 11.9 - 15.5 g/dL [facility] [place] O2 content 8.6(L) 15.0 - 22.0 Vol % [facility] Anatomic Site aPOC Pulm Artery [facility] Blood 11/19/2024 1:26 PM SIGN WRITER LETTERER OR PAINTER 11/19/2024 1:26 PM SIGN WRITER LETTERER OR PAINTER Luca Lott MD LAB POCT ORDERABLES - DEVICE Final Result Performing Organization Address [facility] de Phone Number [facility] [place] [address] * POC Blood Gas and Chemistries, Arterial - (11/19/2024 11:45 AM SIGN WRITER LETTERER OR PAINTER) [facility] K POC 3.7 3.3 - 4.9 mmol/L Comment: Interpretive Data Not all point of care methods assess for hemolysis. Confirm with instrument and retest K+ if not consistent with clinical signs and symptoms. Current Interpretive Data was last revised on 2024. Blood 11/19/2024 11:4 5 AM SIGN WRITER LETTERER OR PAINTER 11/19/2024 11:45 AM SIGN WRITER LETTERER OR PAINTER Luca Lott MD LAB POCT ORDERABLES - DEVICE Final Result Performing Organization Address [facility] Co de Phone Number [facility] [place] [address] * ECG 12 lead (11/19/2024 11:16 AM SIGN WRITER LETTERER OR PAINTER) Ventricular Rate EKG/Min 90 BPM [facility] QRS-Interval (MSEC) 84 ms [facility] QT-Interval (MSEC) 404 ms [facility] QTc 494 ms [facility] R [place] 6 degrees [facility] T [place] 144 degrees [facility] Diagnosis Atrial fibrillation Electronic atrial pacemaker Minimal voltage criteria for LVH, may be normal variant ( Oliverio product ) Septal infarct , age undetermined T wave abnormality, consider lateral ischemia Abnormal ECG Confirmed by HARJINDER HANDY M.D ([id number]) on 11/19/2024 3:59:31 PM [facility] 11/19/2024 11:1 6 AM SIGN WRITER LETTERER OR PAINTER 11/19/2024 3:59 PM SIGN WRITER LETTERER OR PAINTER Luca Lott MD ECG ORDERABLES Final Result Performing Organization Address [facility] de Phone Number [facility] * DEVICE CHECK - IN OFFICE (11/18/2024 11:20 AM SIGN WRITER LETTERER OR PAINTER) Anatomical Region Laterality Modality Other 11/18/2024 2:00 AM SIGN WRITER LETTERER OR PAINTER Narrative 12/24/2024 9:17 PM SIGN WRITER LETTERER OR PAINTER Interpretation Summary: Battery and Leads (BL) Normal parameters noted on battery and lead(s) Presenting Rhythm (MS) Atrial Sensing-Ventricular Sensing (-VS) Arrhythmic events (AE) Atrial fibrillation and/or flutter with controlled ventricular rate Nonsustained VT event(s) identified Anticoagulation (AC) Patient on anticoagulant therapy --- Plavix Procedure Note Lane Ramos MD PhD - 12/24/2024 Interpretation Summary: Battery and Leads (BL) Normal parameters noted on battery and lead(s) Presenting Rhythm (MS) Atrial Sensing-Ventricular Sensing (-VS) Arrhythmic events (AE) Atrial fibrillation and/or flutter with controlled ventricular rate Nonsustained VT event(s) identified Anticoagulation (AC) Patient on anticoagulant therapy --- Plavix Lane Ramos MD PhD [facility] PROCEDURES Final Result * SCAN - LABS (11/17/2024) Provider Scanning Final Result from Last 3 Months Insurance [facility] CHOICE [facility] HMO/PPO Address[facility] [address] [place] [address] MEDICARE IDMA [facility] CHOICE [facility]US [facility] HMO/PPO Address: [address] [address] [place] [address] [facility] CHOICE PL[facility] HMO/PPO Address: [address] [address] [place] [id number] MEDICARE MEDICARE [facility] CHOICE PLUS [facility] HMO/PPO Address: [address] [address] [place] [address] MEDICARE Advance Directives For more information, please contact: [phone] * Full Code (Latest Code Status on [...] 5:04 PM 08/03/2022 10:09 PM Care Teams Machining Engineer Relationship Specialty Start Date End Date Pal Downey GarretZhane PCP - General Internal Medicine 01/25/21 Quinton Rowan MD Referring Physician Cardiology 01/09/19 Tami Flores, TONO [address] [address] Registered Nurse [employer] Service Mechanic 01/25/21 Cricket Escalante MD [address] [address] Referring Physician Nephrology 03/24/21 Gael Sprague MD PhD [address] [address] Fellow Endocrinology Diabetes & Metabolism 03/24/21 Brad Turner MD [address] [id number] Consulting Physician Obstetrics and Gynecology 03/24/21 Margarita Montoya MD [address] [id number] Consulting Physician Trauma Surgery 12/27/21 Luca Lott MD [address] [id number] Consulting Physician Cardiology 08/03/22 Pb Galloway MD [address] [id number] [place] [address] Cardiothoracic Surgery 05/25/24 Felipe Gerber MD [address] [id number] [place] [address] Consulting Physician Cardiology 05/25/24
--- OUTSIDE RECORDS SUMMARY | 2025-02-15 14:12 | XMS_ITS | Clinical Summary ---
Author Organization [facility] Address [address] [place] [id number] Phone Care Team Providers Care Plant Puller Name Role Phone ScarlettmelanyPal ibarra DO Primary Care Provider [phone] Allergies Active Allergy Reactions Criticality Noted Date [...] tolerated cephalosporins. Frank Buckley PharmD 05/10/2019 Medications albuterol HFA (PROVENTIL HFA;VENTOLIN HFA) 108 (90 Base) MCG/ACT inhaler prn 2 Active aspirin EC 81 MG EC tablet Take 1 tablet by mouth daily 7 Active calcitriol (ROCALTROL) 0.5 MCG capsule TAKE 1 CAPSULE BY MOUTH EVERY DAY IN THE MORNING 1 9 Active potassium chloride (KLOR-CON M20) 20 MEQ CR tablet Take 20 mEq by mouth 3 times a day Active nitroglycerin (NITROSTAT) 0.[address] 0.4 mg under the tongue 0 Active metoprolol succinate XL (TOPROL-XL) 25 MG 24 hr tablet Take 25 mg by mouth 1 (one) time each day 0 Active furosemide (LASIX) 80 MG tablet Take 80 mg by mouth 1 (one) time each day 1 Active levothyroxine (SYNTHROID) 112 MCG tablet 1 Active acetaminophen-c odeine (TYLENOL #3) 300-30 MG per tablet Take 1 tablet by mouth every 12 (twelve) hours if needed for pain 2 Active docusate sodium (COLACE) 100 MG capsule PLEASE SEE ATTACHED FOR DETAILED DIRECTIONS 2 Active Combivent Respimat 20-100 MCG/ACT inhaler PLEASE SEE ATTACHED FOR DETAILED DIRECTIONS 2 Active Active Problems Problem Noted Date Diagnosed [...] kidney 04/28/2012 Bicuspid aortic valve 11/23/2010 Immunizations Immunization Administration Dates Next Due Influenza TIV (IM) [...] of Binge Drinking Not on file 01/19 Comments Unknown Sex and Gender Information Value Date Recorded Sex Assigned at Not on file Legal Sex Female 9:07 AM [facility] Gender Identity Not on file Sexual Orientation Not on file Last Filed Vital Signs Vital Sign Reading Time Taken Comments Blood Pressure 122/70 12/22/2021 9:43 PM [facility] Pulse 72 12/22/2021 9:43 PM [facility] Temperature 36.2 C (97.2 F) 12/22/2021 9:43 PM [facility] Respiratory Rate - - Oxygen Saturation - - Inhaled Oxygen Concentration - - Weight 50.3 kg (111 lb) 12/22/2021 9:43 PM [facility] Height 162.6 cm (5' 4 ) 12/22/2021 9:43 PM [employer] [facility] Body Mass Index 19.05 12/22/2021 9:43 PM [facility] [facility] Plan of Treatment Health Maintenance Due Date Last Done Comments Influenza Vaccine (Season Ended) 2025 10/21/19 18 Insurance MEDICAID - [place] [facility] Care Teams Plant Puller Relationship Specialty Start Date End Date Pal Downey DO [address] [place] [id number] PCP - General Internal Medicine 02/04/19
--- OUTSIDE RECORDS SUMMARY | 2025-02-15 14:12 | XMS_ITS ---
Author Organization [facility] Address [address] [place] [address] Care Team Providers Care Lockstitch Sleeve Setter Name Role Phone Quinton Rowan MD Unavailable [phone] Pal Downey DO Primary Care Provider [phone] Tami Flores RN Unavailable Cricket Escalante MD Unavailable [phone] Gael Sprague MD PhD Unavailable Brad Turner MD Unavailable [phone] Margarita Montoya MD Unavailable [phone] Luca Lott MD Unavailable [phone] Pb Galloway MD Unavailable [phone] Felipe Gerber MD Unavailable [phone] Dialysis Access Sites Type Status Location [...] AND CHEMISTRIES, VENOUS Routine 12/25/2024 2:21 PM [employer] EGFR Routine 12/25/2024 1:19 PM [employer] CRITICAL RESULT CALLBACK CHEMISTRY Routine 12/25/2024 1:19 PM [employer] DIFFERENTIAL AUTO Routine 12/25/2024 1:1 9 PM [employer] CBC WITH AUTO DIFFERENTIAL Routine 12/25/2024 1:19 PM [employer] BASIC METABOLIC PANEL Routine 12/25/2024 1:19 PM [employer] KARINA MAJOR CORONARY Routine 12/25/2024 10:05 AM [employer] Chest pain, unspecified type POCT ACTIVATED CLOTTING TIME, LOW RANGE Routine 12/25/2024 10:05 AM [employer] POCT ACTIVATED CLOTTING TIME, LOW RANGE Routine 12/25/2024 9:24 AM [employer] POCT ACTIVATED CLOTTING TIME, LOW RANGE Routine 12/25/2024 8:58 AM [employer] TYPE AND SCREEN Timed 12/25/2024 8:13 AM [employer] POC BLOOD GAS AND CHEMISTRIES, ARTERIAL Routine 12/25/2024 8:12 AM [employer] POC BLOOD GAS AND CHEMISTRIES, ARTERIAL Routine 12/25/2024 8:08 AM [employer] ECG 12-LEAD Routine 12/25/2024 6:56 AM [employer] SCAN - LABS 12/24/2024 SCAN - LABS 12/22/2024 CBC WITH AUTO DIFFERENTIAL Routine 12/21/2024 12:48 PM [employer] Chest pain, unspecified type BASIC METABOLIC PANEL Routine 12/21/2024 12:48 PM [employer] Chest pain, unspecified type HLA ANTIBODY SCREEN - SAB (CLASS I AND CLASS II) Routine 11/27/2024 10:00 AM [employer] ESRD (end stage renal disease) (HCC) HLA ANTIBODY SCREEN BY PRA OR SAB PER SCHEDULE (CLASS I AND CLASS II) Routine 11/27/2024 10:00 AM [employer] ESRD (end stage renal disease) (HCC) EGFR Routine 11/19/2024 6:00 PM [employer] DIFFERENTIAL AUTO Routine 11/19/2024 6:0 0 PM [employer] CBC WITH AUTO DIFFERENTIAL Routine 11/19/2024 6:00 PM [employer] BASIC METABOLIC PANEL Routine 11/19/2024 6:00 PM [employer] POCT ACTIVATED CLOTTING TIME, LOW RANGE Routine 11/19/2024 4:42 PM [employer] POCT ACTIVATED CLOTTING TIME, LOW RANGE Routine 11/19/2024 3:23 PM [employer] LEFT HEART CATHETERIZATION WITH CORONARY ANGIOGRAPHY AND WITH AND WITHOUT LEFT VENTRICULOGRAM Routine 11/19/2024 2:50 PM [employer] Chest pain, unspecified type POCT ACTIVATED CLOTTING TIME, LOW RANGE Routine 11/19/2024 2:49 PM [employer] POCT ACTIVATED CLOTTING TIME, LOW RANGE Routine 11/19/2024 2:30 PM [employer] POCT ACTIVATED CLOTTING TIME, LOW RANGE Routine 11/19/2024 2:01 PM [employer] TYPE AND SCREEN Timed 11/19/2024 2:01 PM [employer] POCT ACTIVATED CLOTTING TIME, LOW RANGE Routine 11/19/2024 1:53 PM [employer] POCT ACTIVATED CLOTTING TIME, LOW RANGE Routine 11/19/2024 1:49 PM [employer] POCT OXYHEMOGLOBIN - DEVICE Routine 11/19/2024 1:27 PM [employer] POCT OXYHEMOGLOBIN - DEVICE Routine 11/19/2024 1:26 PM [employer] POCT OXYHEMOGLOBIN - DEVICE Routine 11/19/2024 1:26 PM [employer] POC BLOOD GAS AND CHEMISTRIES, ARTERIAL Routine 11/19/2024 11:45 AM [employer] ECG 12-LEAD Routine 11/19/2024 11:16 AM [employer] DEVICE CHECK - IN OFFICE Routine 11/18/2024 11:20 AM [employer] Fitting or adjustment of cardiac pacemaker SSS (sick sinus syndrome) (HCC) SCAN - LABS 11/17/2024 from Last 3 Months Allergies Active Allergy [...] by severe paravalvular leak with subsequent TAVR Hitesh with 30 mm Brown 3 ultra on [...] (02/01/2022): Added automatically from request for surgery [id number] Assessment & Plan (02/05/2025 3:15 PM CDT): Undergoing pre transplant evaluation. We will review with Dr. Lott regarding possible candidacy for transplant list given recent interventions. Continued to DAPT Disorder of peritoneal dialysis catheter 022 Overview (12/22/2021): Added automatically from request for surgery [id number] Chronic kidney disease, stage V 10/31/2021 Overview (08/21/2023): Added automatically from request for surgery [id number] Sick sinus syndrome 11/02/2020 Diastolic heart failure [...] Consolidation of left lower lobe of lung 05/20/ 019 Assessment & Plan (05/24/2019 11:10 AM [...] Assessment & Plan (02/25/2019 11:43 AM CDT): [facility] with 95% LAD lesion, had [...] Assessment & Plan (02/24/2019 9:29 AM CDT): [facility] with 95% LAD lesion, had [...] Assessment & Plan (02/20/2019 5:17 AM CDT): [facility] with 95% LAD lesion, had some RV dysfunction during AV repair and found to have RCA occlusion following LAD bypass - s/p IABP placement - CABG to LAD and LCA Assessment & Plan (02/19/2019 2:08 AM CDT): [facility] with 95% LAD lesion, had [...] Assessment & Plan (02/16/2019 11:38 PM CDT): [facility] with 95% LAD lesion, had some RV dysfunction during AV repair and found to have RCA occlusion following LAD bypass - s/p IABP placement - CABG to LAD and LCA - on Epi and Milrinone of inotropy Assessment & Plan (02/11/2019 6:16 PM CDT): [facility] with 95% LAD lesion, had some RV dysfunction during AV repair and found to have RCA occlusion following LAD bypass - s/p IABP placement - CABG to LAD and LCA - on Epi and Milrinone of inotropy Assessment & Plan (02/08/2019 5:38 PM CDT): -Patient w/ chest pain/SOB along w/ significant troponin elevation -Plan for [facility] w/ possible PCI tomorrow pending [...] to 4.35 - valve team consulted, 02/09 [facility] with severe 1 vessel disease [...] (02/09/2019): Added automatically from request for surgery [id number] Assessment & Plan (05/17/2019 9:19 AM CDT): [...] (02/10/2019): Added automatically from request for surgery [id number] Assessment & Plan (02/05/2025 3:15 PM CDT): [...] with left shoulder pain similar to previous PR -EKG changes per OSH --Slight elevation in [...] currently stable Daily BMPs, while inpatient Home skein yard drier is Dr. Escalante Continue lasix 40 mg [...] kidney disease, baseline Cr 2.4-2.6. F/b OSH skein yard drier. Apparently discussions for potential need for renal txp being discussed. - Cr at baseline on adm - avoid nephrotoxins, renally dose meds - continue calcitriol 0.5 mcg/day - Cr 2.75, received pre-cath hydration, stable 2.7 Headache 05/02/2016 Moderate COPD (chronic obstr uctive pulmonary disease) ([facility]) 11/02/2015 Assessment & Plan (08/02/2022 5:33 PM [...] AM CDT): Hitesh TAVR 05/21 Followed by [facility], Dr. Lott. CT TAVR [...] not a candidate for intervention [facility] Assessment & Plan (05/17/2019 [...] AV. Referred to valve team by primary snow ranger Dr. Rowan. Seen 02/02 by valve team [...] Administration Dates Next Due Hep B Vaccine 02/24/2024,,09/23/2023,08/30/2023,04/30/2022,060 10/2021,02/19/2022 Influenza, Split 10/21/2017 PPD TEST 03/23/2024,03/25/2023 [...] on file Legal Sex Female 4:06 AM [employer] Gender Identity Female 01/16/2024 11:18 AM CDT Sexual Orientation Straight 01/16/2024 11 :18 AM CDT Last Filed Vital Signs Vital Sign Reading Time Taken Comments Blood Pressure 88/62 02/05/2025 2:30 PM CDT Pulse 63 02/05/2025 2:30 PM CDT Temperature 36.6 C (97.9 F) 01/28/2025 7:43 AM CDT Respiratory Rate 18 12/25/2024 3:23 PM [employer] Oxygen Saturation 93% 02/05/2025 2:30 PM CDT Inhaled Oxygen Concentration - - Weight 56.4 kg (124 lb 6.4 oz) 02/05/2025 2:30 P M CDT Height 162.6 cm (5' 4 ) 01/28/2025 7:43 AM CDT Body Mass Index 21.35 01/28/2025 7:43 AM CDT Results * XR Orthopantogram Panorex (01/28/2025 10:32 [...] by: Amanuel Pena M.D. Tamar Tang MD IMG XR PROCEDURES Final Result * XR Chest [...] ECG 12 lead (01/28/2025 10:10 AM CDT) [facility] Ventricular Rate EKG/Min 79 BPM [facility] Atrial Rate 79 BPM [facility] TN-Interval (MSEC) 164 ms [facility] QRS-Interval (MSEC) 88 ms [facility] QT-Interval (MSEC) 396 ms [facility] QTc 454 ms [facility] P Handley 112 degrees [facility] R Handley -24 degrees [facility] T Handley 129 degrees [facility] Diagnosis Atrial-paced rhythm in a pattern of bigeminy Anteroseptal infarct (cited on 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-MAY-2024) ST & T wave abnormality, consider lateral ischemia Abnormal ECG When compared with ECG of 25-DEC-2024 06:56, Premature atrial complexes are no longer Present Confirmed by HARJINDER HANDY M.D ([id number]) on 01/29/2025 11:51:51 AM [facility] 01/28/2025 10:1 0 AM CDT 01/29/2025 11:51 AM CDT Tamar Tang MD ECG ORDERABLES Final Result Performing Organization Address [facility]/ZIP Co de Phone Number [facility] * Mislabeled Test (01/28/2025 9:47 AM CDT) Location Other location Reason No Signature On Blood Bank Specimen [facility] Mislabel resolution Testing canceled [facility] Blood 01/28/2025 9:47 AM CDT 01/28/2025 11:45 AM CDT Abigail Vides MD LAB BLOOD ORDERABLES Final Result [facility] Department [place] [address] * (ABNORMAL) eGFR (01/28/2025 9:42 AM CDT) [...] 9:42 AM CDT 01/28/2025 11:07 AM CDT Tamar Tang MD LAB BLOOD ORDERABLES Final Res ult Performing Organization Address City/[facility] Co de Phone Number [facility] Department [place] [employer] [place] [address] * HIV 1/2 Antibody plus p24 Antigen Blood (01/28/2025 9:42 AM CDT) [facility] HIV 1/2 ab + p24 ag Nonreactive [...] ORD ERABLES Final Result Performing Organization Address City/[facility]/ZIP Co de Phone Number [facility] Department [place] [address] * Hepatitis C antibody Blood (01/28/2025 9:42 AM CDT) [facility] Hep C Ab Nonreactive Nonreactive Comment:Antibodies to HCV no t detected. Does NOT exclude the possibility of recent exposure to HCV. Current interpretive data was last revised on 22 Blood 01/28/2025 9:42 AM CDT 01/28/2025 10:56 AM CDT Tamar Tang MD LAB MICROBIOLOGY - GENERAL ORD ERABLES Final Result [facility] Department [place] [address] * Hepatitis B core antibody, total Blood (01/28/2025 9:42 AM CDT) Pathologist [facility] Hep B core IgG/IgM Nonreactive Nonreactive Blood 01/28/2025 9:42 AM CDT 01/28/2025 10:56 AM CDT Tamra Tang MD LAB MICROBIOLOGY - GENERAL ORD ERABLES Final Result Performing Organization Address [facility] Co de Phone Number [facility] [place] [address] * Hepatitis B surface antibody (immune status) Blood (01/28/2025 9:42 AM CDT) Pathologist [facility] HBsAb (immune status) Nonreactive Comment:This result is consi stent with a lack of immunity to Hepatitis B Virus when used in the setting of routine screening. Current interpretative data was last revised on 22 Blood 01/28/2025 9:42 AM CDT 01/28/2025 10:56 AM CDT Tamar Tang MD LAB MICROBIOLOGY - GENERAL ORD ERABLES Final Result [facility] [place] [employer] [place] [address] * Hepatitis B Surface Antigen Blood (01/28/2025 9:42 AM CDT) Pathologist [facility] HepBsAg Nonreactive Nonreactive Blood 01/28/2025 9:42 AM CDT 01/28/2025 10:56 AM CDT Tamar Tang MD LAB MICROBIOLOGY - GENERAL ORD ERABLES Final Result Performing Organization Address City/[facility] Co de Phone Number [facility] Department [place] [employer] [place] [address] * (ABNORMAL) CBC without differential (01/28/2025 9:42 AM CDT) [facility] WBC 5.32 3.80 - 9.90 K/cumm Hgb 13.1 11.9 - 15.5 g/dL [facility] Hct 41.5 35.6 - 45.5 % [facility] Plt 156 150 - 400 K/cumm [facility] MPV 10.5 9.1 - 12.3 fL [facility] RBC 4.64 3.90 - 5.20 M/cumm [facility] MCV 89.4 81.3 - 96.4 fL [facility] MCH 28.2 27.1 - 33.3 pg [facility] MCHC 31.6(L) 32.3 - 35.7 g/dL [facility] RDW CV 16.1(H) 11.1 - 14.9 % [facility] RDW SD 51.8(H) 35.7 - 48.1 fL [facility] NRBC abs 0.00 0.00 - 0.01 K/cumm [facility] Blood 01/28/2025 9:42 AM CDT 01/28/2025 10:58 AM CDT us Abigail Vides MD LAB BLOOD ORDERABLES Final Result Performing Organization Address [facility]/ZIP Co de Phone Number [facility] Department [place] [address] * (ABNORMAL) Phosphorus (01/28/2025 9:42 AM CDT) Pathologist [facility] Phosphorus, pl 7.4(H) 2.3 - 4.5 mg/dL Blood 01/28/2025 9:42 AM CDT 01/28/2025 10:56 AM CDT Tamar Tang MD LAB BLOOD ORDERABLES Final Res ult Performing Organization Address [facility] de Phone Number [facility] Department [place] [address] * PTH (01/28/2025 9:42 AM CDT) [facility] PTH 43 15 - 65 pg/mL Blood 01/28/2025 9:42 AM CDT 01/28/2025 10:56 AM CDT Tamar Tang MD LAB BLOOD ORDERABLES Final Res ult Performing Organization Address [facility] de Phone Number [facility] Department [place] [address] * (ABNORMAL) Hemoglobin A1c (01/28/2025 9:42 AM CDT) [facility] Hgb A1C 5.8(H) 4.0 - 5.6 % Estimated Average Glucose 120 mg/dL [facility] Comment: The ADA recommends reporting an estimated [...] ORDERABLES Final Res ult Performing Organization Address [facility] de Phone Number [facility] Department [place] [address] * (ABNORMAL) Comprehensive metabolic panel (01/28/2025 9:42 AM CDT) Sodium 137 135 - 145 mmol/L Potassium, pl 5.7(H) 3.3 - 4.9 mmol/L [facility] Chloride 95(L) 97 - 110 mmol/L [facility] CO2 27 22 - 32 mmol/L [facility] Anion gap 15 2 - 15 mmol/L [facility] BUN 61(H) 6 - 25 mg/dL [facility] Creatinine 14.50(H) 0.60 - 1.10 mg/dL [facility] Glucose 77 70 - 199 mg/dL [facility] Comment: Interpretive Data Fasting glucose >/= [...] Calcium 7.3(L) 8.5 - 10.3 mg/dL [facility] Bilirubin, total 0.3 0.1 - 1.2 mg/dL [facility] Protein, pl 6.8 6.5 - 8.5 g/dL [facility] Albumin 3.2(L) 3.5 - 5.0 g/dL [facility] Alk phos 64 40 - 130 Units/L [facility] ALT 20 7 - 45 Units/L [facility] AST 24 10 - 45 Units/L [facility] Blood 01/28/2025 9:42 AM CDT 01/28/2025 10:56 AM CDT us Tamar Tang MD LAB BLOOD ORDERABLES Final Res ult [facility] Department [place] [address] * HLA Antibody Screen - SAB (Class [...] a method developed and validated by the [facility] HLA laboratory based on an FDA-approved IVD kit (LABScreen Single-Antigen, One [facility], [place], [place]). All patient serum samples are pretreated with EDTA before the screen to prevent complement interference. Additional serum treatments, such as adsorption and DTT treatment, may be performed as indicated. Interpretive comments: Low risk: MFI 9590-4000. Moderate risk: MFI 9191-5447. Increased risk: MFI >/= 5000. The presence [...] antigens to avoid. Testing performed at the [facility], [address] [place] [address], 5th floor, [place], [address]. CLIA # [id number]. Rosa Millan, Ph.D., Licensing Coordinator, HLA Laboratory Wilmer Prescott M.D., Ph.D., Street Cleaner, HLA Laboratory Alma Payton, Ph.D., CLIA Street Cleaner, [facility] Current methodology and interpretive comments last revised on 11/15/2022. Salina Hector MD LAB BLOOD ORDERABLES Final Resul t Performing Organization Address City/[facility] Co de Phone Number [facility] * HLA Antibody Screen by PRA or SAB per Schedule (Class I and Class II) (01/04/2025 10:00 AM CDT) Blood 01/04/2025 10:0 0 AM CDT Narrative [facility] [employer] Sample received in lab and stored. No testing performed at this time. Salina Hector MD LAB BLOOD ORDERABLES Final Resul t Performing Organization Address City/[facility] Co de Phone Number [facility] * (ABNORMAL) POC Blood Gas and Chemistries, Venous - (12/25/2024 2:21 PM [employer]) pH, Azeb POC 7.29(L) 7.32 - 7.43 pCO2, azeb POC 47 40 - 50 mmHg [facility] pO2, azeb POC 29 mmHg [facility] Na, POC 131(L) 135 - 145 mmol/L [facility] K POC 5.3(H) 3.3 - 4.9 mmol/L [facility] Comment: Interpretive Data Not all point of care methods assess for hemolysis. Confirm with instrument and retest K+ if not consistent with clinical signs and symptoms. Current Interpretive Data was last revised on 2024. Cl, POC 101 97 - 110 mmol/L [facility] Ionized Ca, POC 3.10(C) 4.50 - 5.10 mg/dL [facility] Glucose, POC 137 70 - 199 mg/dL [facility] Lactate, POC 1.1 0.7 - 2.0 mmol/L [facility] O2 Sat, Azeb POC (Nevin) 38 % [facility] Base excess, POC -4.0 mmol/L [facility] HCO3, Azeb POC 23 20 - 30 mmol/L [facility] Hct, POC 33.0(L) 36.3 - 45.3 % [facility] Total Hb, POC 11.1(L) 11.9 - 15.5 g/dL [facility] Blood 12/25/2024 2:21 PM [employer] 12/25/2024 2:21 PM [employer] Luca Lott MD LAB POCT ORDERABLES - DEVICE Final Result [facility] Department [place] [address] * (ABNORMAL) eGFR (12/25/2024 1:19 PM [employer]) eGFR 3(L) >=60 mL/min/1. 73 m2 Comment: [...] last reviewed 2021. Blood 12/25/2024 1:19 PM [employer] 12/25/2024 1:30 PM [employer] us Luca oLtt MD LAB BLOOD ORDERABLES Final R esult [facility] Department [place] [address] * (ABNORMAL) Differential, auto (12/25/2024 1:19 PM [employer]) Neutrophil abs 5.1 1.5 - 6.5 K/cumm Imm gran abs 0.0 0.0 - 0.1 K/cumm [facility] Lymphocyte abs 0.7(L) 0.8 - 3.3 K/cumm [facility] Monocyte abs 0.4 0.2 - 0.8 K/cumm [facility] Eosinophil abs 0.1 0.0 - 0.5 K/cumm [facility] Basophil abs 0.0 0.0 - 0.1 K/cumm [facility] Neutrophil pct 80.1 % [facility] Comment: Interpretive Data Percent cell count reference ranges are not reported, since discordance with absolute values may lead to misinterpretation of CBC data. Current Interpretive Data was last revised on 2018. Imm gran pct 0.5 % [facility] Comment: Interpretive Data Percent cell count reference ranges are not reported, since discordance with absolute values may lead to misinterpretation of CBC data. Current Interpretive Data was last revised on 2018. Lymphocyte pct 11.3 % [facility] Comment: Interpretive Data Percent cell count reference ranges are not reported, since discordance with absolute values may lead to misinterpretation of CBC data. Current Interpretive Data was last revised on 2018. Monocyte pct 6.0 % [facility] Comment: Interpretive Data Percent cell count reference ranges are not reported, since discordance with absolute values may lead to misinterpretation of CBC data. Current Interpretive Data was last revised on 2018. Eosinophil pct 1.6 % [facility] Comment: Interpretive Data Percent cell count reference ranges are not reported, since discordance with absolute values may lead to misinterpretation of CBC data. Current Interpretive Data was last revised on 2018. Basophil pct 0.5 % [facility] Comment: Interpretive Data Percent cell count reference ranges are not reported, since discordance with absolute values may lead to misinterpretation of CBC data. Current Interpretive Data was last revised on 2018. Blood 12/25/2024 1:19 PM [employer] 12/25/2024 1:30 PM [employer] us Luac Lott MD LAB BLOOD ORDERABLES Final R esult [facility] Department [place] [address] * Critical Result Callback Chemistry (12/25/2024 1:19 PM [employer]) Date Notified [id number] Time Notified 1409 [facility] TestName Potassium Plas Calcium [facility] Called/Read Back Grisel BARNES [facility] Credentials TONO DOMINGUEZ Called By NELSON DOMINGUEZ Blood 12/25/2024 1:19 PM [employer] 12/25/2024 1:30 PM [employer] us Luca Lott MD LAB BLOOD ORDERABLES Final R esult [facility] Department [place] [address] * (ABNORMAL) CBC with auto differential (12/25/2024 1:19 PM [employer]) WBC 6.3 3.8 - 9.9 K/cumm Hgb 11.2(L) 11.9 - 15.5 g/dL [facility] Hct 36.0 35.6 - 45.5 % [facility] Plt 106(L) 150 - 400 K/cumm [facility] MPV 10.1 9.1 - 12.3 fL [facility] RBC 3.99 3.90 - 5.20 M/cumm [facility] MCV 90.2 81.3 - 96.4 fL [facility] MCH 28.1 27.1 - 33.3 pg [facility] MCHC 31.1(L) 32.3 - 35.7 g/dL [facility] RDW CV 15.4(H) 11.1 - 14.9 % [facility] RDW SD 50.8(H) 35.7 - 48.1 fL [facility] NRBC abs 0.00 0.00 - 0.01 K/cumm [facility] Blood 12/25/2024 1:19 PM [employer] 12/25/2024 1:30 PM [employer] us Luca Lott MD LAB BLOOD ORDERABLES Final R esult [facility] [facility] [place] [address] * (ABNORMAL) Basic metabolic panel (12/25/2024 1:19 PM [employer]ESPERSON [employer]) Sodium 135 135 - 145 mmol/L Potassium, pl 6.3(C) 3.3 - 4.9 mmol/L [facility] Chloride 95(L) 97 - 110 mmol/L [facility] CO2 23 22 - 32 mmol/L [facility] Anion gap 17(H) 2 - 15 mmol/L [facility] BUN 59(H) 6 - 25 mg/dL [facility] Creatinine 15.37(H) 0.60 - 1.10 mg/dL [facility] Glucose 142 70 - 199 mg/dL [facility] Comment: Interpretive Data Fasting glucose >/= [...] 2022. Calcium 5.7(C) 8.5 - 10.3 mg/dL [facility] Blood 12/25/2024 1:19 PM [employer] 12/25/2024 1:30 PM [employer]ESPERSON [employer] us Luca Lott MD LAB BLOOD ORDERABLES Final R esult [facility] Department [place] [address] * KARINA MAJOR CORONARY (12/25/2024 10:05 AM [employer]ESPERSON [employer]OMOBIL[employer]) Anatomical Region Laterality Modality X-Ray Angiograph y Impressions 12/25/2024 3:40 PM [employer]ESPERSON [employer] Severely calcified left main stenosis status post [...] Luca Lott MD Narrative 12/25/2024 3:40 PM [employer]ESPERSON [employer] Table formatting from the original result was not included. Procedure: CORONARY ANGIOGRAM / PERCUTANEOUS CORONARY INTERVENTION Patient: Ginger Marshall is a 54 y.o. female : 1970 MR number: [id number] Date of Service: 12/25/2024 Round Corner Cutter Operator: Luca Lott MD Fellow: Sanket Quiroz MD [...] obtained. The patient was brought to the laboratory geneticist and placed on the table Bilateral groins [...] Flow 3. Equipment used: 7 JL 3.0, [employer] IVUS Catheter, whisper wire, 2 0 x 12 emerge balloon, 225 x 12 NC emerge balloon, 2 5 x 12 NC emerge balloon, 2 5 shockwave lithotripsy balloon, 6 Syrian GuideLiner Coast, 2 5 x 12 mm [...] right common femoral artery and a 7 Syrian sheath inserted without difficulty. Next we took a 7 Syrian JL 3 guiding catheter up and sat [...] was unsuccessful. We then placed a 6 Syrian GuideLiner down from with an additional 225 [...] placed without difficulty. COMPLICATIONS: None DIAGNOSTIC Luca Lott MD CV CARDIAC CATH PROCEDURES F inal Result * (ABNORMAL) POCT Activated clotting time, low range (12/25/2024 10:05 AM [employer]ESPERSON [employer]) ACT 298(H) 123 - 168 sec POC Performer [id number] [facility] POC Device Number [id number] [facility] Blood 12/25/2024 10:0 5 AM [employer] 12/25/2024 10:05 AM [employer]ERSON [employer] Luca Lott MD LAB POCT ORDERABLES - DEVICE Final Result Performing Organization Address [facility] [place] [address] * (ABNORMAL) POCT Activated clotting time, low range (12/25/2024 9:24 AM [employer]ERSON [employer]) ACT 329(H) 123 - 168 sec POC Performer [id number] [facility] POC Device Number [id number] [facility] Blood 12/25/2024 9:24 AM [employer]ESPERSON [employer] 12/25/2024 9:24 AM [employer]ESPERSON [employer] us Luca Lott MD LAB POCT ORDERABLES - DEVICE Final Result Performing Organization Address [facility] [place] [address] * (ABNORMAL) POCT Activated clotting time, low range (12/25/2024 8:58 AM [employer]ERSON [employer]) ACT >400(H) 123 - 168 sec POC Performer [id number] [facility] POC Device Number [id number] [facility] Blood 12/25/2024 8:58 AM [employer]ESPERSON [employer] 12/25/2024 8:58 AM [employer]ERSON [employer] Luca Lott MD LAB POCT ORDERABLES - DEVICE Final Result Performing Organization Address [facility] de Phone Number [facility] [place] [address] * Type and screen (12/25/2024 8:13 AM SALESPERSON [employer]) ABO Rh B Positive Jorge A, indirect Negative [facility] Blood 12/25/2024 8:13 AM [employer]ERSON [employer] 12/25/2024 8:20 AM [employer]ESPERSON [employer] Narrative [facility] - 12/25/2024 9:11 AM SALESPERSON [employer]OMOBILES Has the patient had Daratumumab or Isatuximab in the past 6 months?->Unknown us Luca Lott MD LAB BLOOD BANK TEST ORDERABL ES Final Result Performing Organization Address City/[facility]/ZIP Co de Phone Number [facility] Department [place] [address] * (ABNORMAL) POC Blood Gas and Chemistries, Arterial - (12/25/2024 8:12 AM [employer]ERSON [employer]) pH, Art POC 7.39 7.35 - 7.45 pCO2, Art POC 32(L) 35 - 45 mmHg [facility] pO2, Art POC 84 83 - 108 mmHg [facility] Na, POC 135 135 - 145 mmol/L [facility] K POC 5.5(H) 3.3 - 4.9 mmol/L [facility] Comment: Interpretive Data Not all point of care methods assess for hemolysis. Confirm with instrument and retest K+ if not consistent with clinical signs and symptoms. Current Interpretive Data was last revised on 2024. Cl, POC 101 97 - 110 mmol/L [facility] Ionized Ca, POC 2.96(C) 4.50 - 5.10 mg/dL [facility] Glucose, POC 88 70 - 199 mg/dL [facility] Lactate, POC 1.1 0.7 - 2.0 mmol/L [facility] SO2 (nevin) arterial 96(H) 90 - 95 % [facility] Base excess, POC -4.7 mmol/L [facility] HCO3, Art POC 19(L) 20 - 30 mmol/L [facility] Hct, POC 36.0(L) 36.3 - 45.3 % [facility] Total Hb, POC 11.9 11.9 - 15.5 g/dL [facility] Blood 12/25/2024 8:12 AM [employer] 12/25/2024 8:12 AM [employer]ESPERSON [employer]OM[employer] us Luca Lott MD LAB POCT ORDERABLES - DEVICE Final Result [facility] Department [place] [address] * (ABNORMAL) POC Blood Gas and Chemistries, Arterial - (12/25/2024 8:08 AM SALESPERSON [employer]OMOBIL[employer]) [facility] K POC 5.2(H) 3.3 - 4.9 mmol/L Comment: Interpretive Data Not all point of care methods assess for hemolysis. Confirm with instrument and retest K+ if not consistent with clinical signs and symptoms. Current Interpretive Data was last revised on 2024. Blood 12/25/2024 8:08 AM [employer]ERSON [employer]OM[employer] 12/25/2024 8:08 AM [employer]ESPERSON [employer]OM[employer] Luca Lott MD LAB POCT ORDERABLES - DEVICE Final Result [facility] Department [place] [address] * ECG 12 lead (12/25/2024 6:56 AM SALESPERSON [employer]) [facility] Ventricular Rate EKG/Min 82 BPM [facility] Atrial Rate 82 BPM [facility] QRS-Interval (MSEC) 86 ms [facility] QT-Interval (MSEC) 410 ms [facility] QTc 479 ms [facility] R Handley -10 degrees [facility] T Handley 155 degrees [facility] Diagnosis atrial-paced complexes Premature atrial complexes in a pattern of bigeminy Minimal voltage criteria for LVH, may be normal variant ( [place] product ) Septal infarct , age undetermined T wave abnormality, consider lateral ischemia Abnormal ECG When compared with ECG of 19-NOV-2024 11:16, no significant change Confirmed by HARJNIDER HANDY M.D ([id number]) on 01/06/2025 3:41:43 PM [facility] 12/25/2024 6:56 AM [employer] 01/06/2025 3:41 PM CDT Luca Lott MD ECG ORDERABLES Final Result Performing Organization Address City/[facility]/ZIP Co de Phone Number [facility] * SCAN - LABS (12/24/2024) us Provider Scanning Final Result * SCAN - LABS (12/22/2024) us Provider Scanning Final Result * (ABNORMAL) CBC with auto differential (12/21/2024 12:48 PM SALESPERSON [employer]IL[employer]) Pathologist [facility] WBC 7.0 3.4 - 10.8 x10E3/uL [...] - 01 Blood 12/21/2024 12:4 8 PM [employer] 12/21/2024 Narrative [facility] - 12/22/2024 7:09 AM [employer]ESPERSON [employer]OM[employer]IL[employer] Performed at: [address] [id number] Refinery Superintendent: Marco Antonio Paiz PhD, Phone: [phone] us Luca Lott MD LAB BLOOD ORDERABLES Final R esult Performing Organization Address City/[facility]/ZIP Co de Phone Number [facility] - * (ABNORMAL) Basic metabolic panel (12/21/2024 12:48 PM SALESPERSON [employer]) [facility] Glucose 85 70 - 99 mg/dL [facility] [...] repeat analysis Blood 12/21/2024 12:4 8 PM [employer]ESPERSON [employer] 12/21/2024 Narrative [facility] - 12/22/2024 2:10 PM [employer]ESPERSON [employer]OMOBIL[employer] Performed at: - [address] [id number] Refinery Superintendent: Marco Antonio Paiz PhD, Phone: [phone] Specimen Comment: Called/faxed to DIANA DACOSTA on 12/22/2024 at 13:44 ET Specimen Comment: for tests Creatinine; Calcium Luca Lott MD LAB BLOOD ORDERABLES Final R esult Performing Organization Address City/[facility]/ZIP Co de Phone Number [facility] - 01 * HLA Antibody Screen by PRA or SAB per Schedule (Class I and Class II) (11/27/2024 10:00 AM SALESPERSON [employer]) Blood 11/27/2024 10:0 0 AM [employer]ESPERSON [employer]OMOBIL[employer] Narrative [facility] - [employer] Sample received in lab. Single Antigen Antibody Screen ordered. Salina Hector MD LAB BLOOD ORDERABLES Final Resul t [facility] * HLA Antibody Screen - SAB (Class I and Class II) (11/27/2024 10:00 AM SALESPERSON [employer]OMOBIL[employer]) Class I Treatment EDTA [facility] Class I [...] Risk DPB1*01:01 [facility] 11/27/2024 10:0 0 AM [employer]ERSON [employer]OM[employer]IL[employer] 12/03/2024 1:32 PM [employer]ESPERSON [employer] Narrative [facility] - 12/03/2024 1:32 PM SALESPERSON [employer]OMOBILES Single-antigen HLA antibody screen is performed on serum samples using a method developed and validated by the [facility] HLA laboratory based on an FDA-approved IVD kit (LABScreen Single-Antigen, [facility], [place], [place]). All patient serum samples are pretreated with EDTA before the screen to prevent complement interference. Additional serum treatments, such as adsorption and DTT treatment, may be performed as indicated. Interpretive comments: Low risk: MFI [id number]. Moderate risk: MFI 5746-1248. Increased risk: MFI >/= 5000. The presence [...] antigens to avoid. Testing performed at the [facility], [address] [place] [address], 5th floor, [place], [address]. [facility] # [id number]. Rosa Millan, Ph.D., Licensing Coordinator, HLA Laboratory Wilmer Prescott M.D., Ph.D., Street Cleaner, HLA Laboratory Alma Payton, Ph.D., [place] Street Cleaner, [facility] Clinical Laboratories Current methodology and interpretive comments last revised on 11/15/2022. us Salina Hector MD LAB BLOOD ORDERABLES Final Resul t [facility] * (ABNORMAL) eGFR (11/19/2024 6:00 PM SALESPERSON [employer]) eGFR 3(L) >=60 mL/min/1. 73 m2 Comment: [...] last reviewed 2021. Blood 11/19/2024 6:00 PM [employer] 11/19/2024 6:10 PM [employer]ESPERSON [employer]IL[employer] us Luca Lott MD LAB BLOOD ORDERABLES Final R esult [facility] Department [place] [address] * (ABNORMAL) Differential, auto (11/19/2024 6:00 PM SALESPERSON [employer]IL[employer]) Pathologist [facility] Neutrophil abs 6.5 1.5 - 6.5 K/cumm Imm gran abs 0.0 0.0 - 0.1 K/cumm [facility] Lymphocyte abs 0.5(L) 0.8 - 3.3 K/cumm [facility] Monocyte abs 0.3 0.2 - 0.8 K/cumm [facility] Eosinophil abs 0.1 0.0 - 0.5 K/cumm [facility] Basophil abs 0.0 0.0 - 0.1 K/cumm [facility] Neutrophil pct 87.7 % [facility] Comment: Interpretive Data Percent cell count reference ranges are not reported, since discordance with absolute values may lead to misinterpretation of CBC data. Current Interpretive Data was last revised on 2018. Imm gran pct 0.3 % [facility] Comment: Interpretive Data Percent cell count reference ranges are not reported, since discordance with absolute values may lead to misinterpretation of CBC data. Current Interpretive Data was last revised on 2018. Lymphocyte pct 6.8 % [facility] Comment: Interpretive Data Percent cell count reference ranges are not reported, since discordance with absolute values may lead to misinterpretation of CBC data. Current Interpretive Data was last revised on 2018. Monocyte pct 3.4 % [facility] Comment: Interpretive Data Percent cell count reference ranges are not reported, since discordance with absolute values may lead to misinterpretation of CBC data. Current Interpretive Data was last revised on 2018. Eosinophil pct 1.5 % [facility] Comment: Interpretive Data Percent cell count reference ranges are not reported, since discordance with absolute values may lead to misinterpretation of CBC data. Current Interpretive Data was last revised on 2018. Basophil pct 0.3 % [facility] Comment: Interpretive Data Percent cell count reference ranges are not reported, since discordance with absolute values may lead to misinterpretation of CBC data. Current Interpretive Data was last revised on 2018. Blood 11/19/2024 6:00 PM [employer] 11/19/2024 6:04 PM [employer]ESPERSON [employer] Luca Lott MD LAB BLOOD ORDERABLES Final R esult [facility] [place] [address] * (ABNORMAL) CBC with auto differential (11/19/2024 6:00 PM [employer]ESPERSON [employer]) WBC 7.4 3.8 - 9.9 K/cumm Hgb 11.6(L) 11.9 - 15.5 g/dL [facility] Hct 36.7 35.6 - 45.5 % [facility] Plt 150 150 - 400 K/cumm [facility] MPV 10.6 9.1 - 12.3 fL [facility] RBC 4.22 3.90 - 5.20 M/cumm [facility] MCV 87.0 81.3 - 96.4 fL [facility] MCH 27.5 27.1 - 33.3 pg [facility] MCHC 31.6(L) 32.3 - 35.7 g/dL [facility] RDW CV 14.6 11.1 - 14.9 % [facility] RDW SD 46.1 35.7 - 48.1 fL [facility] NRBC abs 0.00 0.00 - 0.01 K/cumm [facility] Blood 11/19/2024 6:00 PM [employer] 11/19/2024 6:04 PM [employer]ESPERSON [employer] us Luca Lott MD LAB BLOOD ORDERABLES Final R esult Performing Organization Address [facility]/ZIP Co de Phone Number [facility] [place] [address] * (ABNORMAL) Basic metabolic panel (11/19/2024 6:00 PM SALESPERSON [employer]) Sodium 130(L) 135 - 145 mmol/L Potassium, pl 4.3 3.3 - 4.9 mmol/L [facility] Chloride 90(L) 97 - 110 mmol/L [facility] CO2 23 22 - 32 mmol/L [facility] Anion gap 17(H) 2 - 15 mmol/L [facility] BUN 57(H) 6 - 25 mg/dL [facility] Creatinine 13.87(H) 0.60 - 1.10 mg/dL [facility] Glucose 150 70 - 199 mg/dL [facility] Comment: Interpretive Data Fasting glucose >/= [...] Calcium 6.9(L) 8.5 - 10.3 mg/dL [facility] Blood 11/19/2024 6:00 PM [employer] 11/19/2024 6:04 PM SALESPERSON [employer]OM[employer]IL[employer] us Luca Lott MD LAB BLOOD ORDERABLES Final R esult Performing Organization Address [facility]/ZIP Co de Phone Number [facility] [place] [address] * (ABNORMAL) POCT Activated clotting time, low range (11/19/2024 4:42 PM SALESPERSON [employer]IL[employer]) ACT 171(H) 123 - 168 sec POC Performer [id number] [facility] POC Device Number [id number] [facility] Blood 11/19/2024 4:42 PM [employer]ESPERSON [employer]IL[employer] 11/19/2024 4:42 PM [employer]ESPERSON [employer]IL[employer] us Luca Lott MD LAB POCT ORDERABLES - DEVICE Final Result Performing Organization Address [facility] Co [place] [address] * (ABNORMAL) POCT Activated clotting time, low range (11/19/2024 3:23 PM [employer]ESPERSON [employer]IL[employer]) ACT 266(H) 123 - 168 sec POC Performer [id number] [facility] POC Device Number [id number] [facility] Blood 11/19/2024 3:23 PM SALESPERSON [employer]IL[employer] 11/19/2024 3:23 PM SALESPERSON [employer]OMOBIL[employer] us Luca Lott MD LAB POCT ORDERABLES - DEVICE Final Result Performing Organization Address [facility] de Phone Number [facility] [place] [employer] [place] [address] * LEFT HEART CATHETERIZATION WITH CORONARY ANGIOGRAPHY AND WITH AND WITHOUT LEFT VENTRICULOGRAM (11/19/2024 2:50 PM SALESPERSON [employer]) Anatomical Region Laterality Modality X-Ray Angiograph y Impressions 11/19/2024 4:18 PM [employer]ESPERSON [employer] Very severe stenosis of the vein graft [...] attempt intervention again. I would suggest a [place] 1 0 guiding catheter and consideration for shockwave versus atherectomy. I was present during the entire procedure and personally dictated or confirmed the above report. Luca Lott MD Narrative 11/19/2024 4:18 PM [employer] Procedure: CORONARY ANGIOGRAM / RIGHT HEART CATHETERIZATION/percutaneous coronary intervention Patient: Ginger Marshall is a 54 y.o. female : 1970 MR number: [id number] Date of Service: 11/19/2024 Round Corner Cutter Operator: Luca Lott MD Fellow: Josesito Pabon MD [...] obtained. The patient was brought to the laboratory geneticist and placed on the table Bilateral groins [...] coronary artery angiogram performed using a 6 Syrian JR4 catheter Right heart catheterization preformed with VANI Sheridan Percutaneous coronary intervention performed on the Proximal saphenous vein graft to the LAD. This was an ACC/AHA Type C. Initial Lesion Length 12mm and final lesion Length 15mm. Initial KAROLINA Flow 3 with visible thrombus present Final KAROLINA Flow 3. Equipment used: 6 3DRC, [employer] IVUS Catheter, scion blue wire, 0.9 mm laser atherectomy catheter, 2 5 x 15 NC emerge balloon, a 3 0 x 12 mm AngioSculpt balloon, 4 0 by 15 NC emerge balloon, 4 0 x 15 resolute drug-eluting stent, 4 5 x 12 mm NC emerge balloon Attempted intervention on the ostial left main equipment used was a 6 Syrian JL 3.5 guiding catheter, she on black [...] than 300. We took up a 6 Syrian 3D RC that sat reasonably well in [...] or perforation. We then took our 6 Syrian JL 3.5 guiding catheter attempted to intubate [...] right femoral artery and placed a 6 Syrian Angio-Seal. Manual compression was performed on the venous sheath. COMPLICATIONS: None DIAGNOSTIC us Luca Lott MD CV CARDIAC CATH PROCEDURES F inal Result * (ABNORMAL) POCT Activated clotting time, low range (11/19/2024 2:49 PM SALESPERSON [employer]IL[employer]) ACT 260(H) 123 - 168 sec POC Performer [id number] [facility] POC Device Number [id number] [facility] Blood 11/19/2024 2:49 PM [employer]ESPERSON [employer]IL[employer] 11/19/2024 2:49 PM [employer]ESPERSON [employer]OM[employer]IL[employer] us Luca Lott MD LAB POCT ORDERABLES - DEVICE Final Result Performing Organization Address City/[facility] Co de Phone Number [facility] [place] [address] * (ABNORMAL) POCT Activated clotting time, low range (11/19/2024 2:30 PM SALESPERSON [employer]OM[employer]IL[employer]) ACT 385(H) 123 - 168 sec POC Performer [id number] [facility] POC Device Number [id number] [facility] Blood 11/19/2024 2:30 PM SALESPERSON [employer]OMOBILES 11/19/2024 2:30 PM SALESPERSON AUTOMOBIL[employer] Luca Lott MD LAB POCT ORDERABLES - DEVICE Final Result Performing Organization Address [facility] de Phone Number [facility] [place] [address] * (ABNORMAL) POCT Activated clotting time, low range (11/19/2024 2:01 PM SALESPERSON [employer]IL[employer]) ACT >400(H) 123 - 168 sec POC Performer [id number] [facility] POC Device Number [id number] [facility] Blood 11/19/2024 2:01 PM SALESPERSON AUTOMOBILES 11/19/2024 2:01 PM SALESPERSON AUTOMOBILES us Luca Lott MD LAB POCT ORDERABLES - DEVICE Final Result Performing Organization Address City/[facility] Co de Phone Number [facility] [place] [address] * Type and screen (11/19/2024 2:01 PM SALESPERSON [employer]IL[employer]) ABO Rh B Positive Jorge A, indirect Negative [facility] Blood 11/19/2024 2:01 PM SALESPERSON [employer]OM[employer]IL[employer] 11/19/2024 2:14 PM [employer]ESPERSON [employer]OMOBILES Narrative [facility] - 11/19/2024 3:08 PM SALESPERSON AUTOMOBILES Has the patient had Daratumumab or Isatuximab in the past 6 months?->Unknown Luca Lott MD LAB BLOOD BANK TEST ORDERABL ES Final Result Performing Organization Address [facility] de Phone Number [facility] [place] [employer] [place] [address] * (ABNORMAL) POCT Activated clotting time, low range (11/19/2024 1:53 PM SALESPERSON [employer]OMOBILES) ACT >400(H) 123 - 168 sec POC Performer [id number] [facility] POC Device Number [id number] [facility] Blood 11/19/2024 1:53 PM SALESPERSON [employer]OMOBILES 11/19/2024 1:53 PM SALESPERSON AUTOMOBILES Luca Lott MD LAB POCT ORDERABLES - DEVICE Final Result Performing Organization Address [facility] de Phone Number [facility] [place] [address] * (ABNORMAL) POCT Activated clotting time, low range (11/19/2024 1:49 PM SALESPERSON [employer]OM[employer]IL[employer]) ACT 78(L) 123 - 168 sec POC Performer [id number] [facility] POC Device Number [id number] [facility] Blood 11/19/2024 1:49 PM SALESPERSON [employer]OMOBILES 11/19/2024 1:49 PM SALESPERSON AUTOMOBILES Luca Lott MD LAB POCT ORDERABLES - DEVICE Final Result Performing Organization Address [facility] Co de Phone Number [facility] [place] [address] * (ABNORMAL) POCT oxyhemoglobin (11/19/2024 1:27 PM [employer]ESPERSON [employer]) [facility] [employer] [facility] [employer] Oxyhemoglobin 91.6 >=65.0 % [facility] [employer] [facility] Hemoglobin 11.2(L) 11.9 - 15.5 g/dL [facility] [employer] O2 content 14.3(L) 15.0 - 22.0 Vol % [facility] Anatomic Site aPOC Aorta [facility] Blood 11/19/2024 1:27 PM [employer]ERSON [employer]IL[employer] 11/19/2024 1:27 PM SALESPERSON [employer]OMOBIL[employer] us Luca Lott MD LAB POCT ORDERABLES - DEVICE Final Result Performing Organization Address [facility] [place] [address] * (ABNORMAL) POCT oxyhemoglobin (11/19/2024 1:26 PM [employer]ESPERSON [employer]) [employer] Oxyhemoglobin 56.2(L) >=65.0 % [employer] Hemoglobin 11.0(L) 11.9 - 15.5 g/dL [facility] [employer] O2 content 8.6(L) 15.0 - 22.0 Vol % [facility] Anatomic Site aPOC Pulm Artery [facility] Blood 11/19/2024 1:26 PM [employer] 11/19/2024 1:26 PM [employer] us Luca Lott MD LAB POCT ORDERABLES - DEVICE Final Result Performing Organization Address [facility] [place] [address] * (ABNORMAL) POCT oxyhemoglobin (11/19/2024 1:26 PM [employer]) [facility] Oxyhemoglobin 56.6(L) >=65.0 % [employer] Hemoglobin 10.9(L) 11.9 - 15.5 g/dL [facility] [employer] O2 content 8.6(L) 15.0 - 22.0 Vol % [facility] Anatomic Site aPOC Pulm Artery [facility] Blood 11/19/2024 1:26 PM [employer] 11/19/2024 1:26 PM [employer] Luca Lott MD LAB POCT ORDERABLES - DEVICE Final Result Performing Organization Address [facility] de Phone Number [facility] [place] [address] * POC Blood Gas and Chemistries, Arterial - (11/19/2024 11:45 AM [employer]) [facility] K POC 3.7 3.3 - 4.9 mmol/L Comment: Interpretive Data Not all point of care methods assess for hemolysis. Confirm with instrument and retest K+ if not consistent with clinical signs and symptoms. Current Interpretive Data was last revised on 2024. Blood 11/19/2024 11:4 5 AM [employer] 11/19/2024 11:45 AM [employer] us Luca Lott MD LAB POCT ORDERABLES - DEVICE Final Result Performing Organization Address [facility] de Phone Number [facility] Department [place] [address] * ECG 12 lead (11/19/2024 11:16 AM [employer]) [facility] Ventricular Rate EKG/Min 90 BPM [facility] QRS-Interval (MSEC) 84 ms [facility] QT-Interval (MSEC) 404 ms [facility] QTc 494 ms [facility] R Handley 6 degrees [facility] T Handley 144 degrees [facility] Diagnosis Atrial fibrillation Electronic atrial pacemaker Minimal voltage criteria for LVH, may be normal variant ( [place] product ) Septal infarct , age undetermined T wave abnormality, consider lateral ischemia Abnormal ECG Confirmed by HARJINDER HANDY M.D ([id number]) on 11/19/2024 3:59:31 PM [facility] 11/19/2024 11:1 6 AM [employer] 11/19/2024 3:59 PM [employer] Luca Lott MD ECG ORDERABLES Final Result [facility] * DEVICE CHECK - IN OFFICE (11/18/2024 11:20 AM [employer]) Anatomical Region Laterality Modality Other 11/18/2024 2:00 AM [employer] Narrative 12/24/2024 9:17 PM [employer] Interpretation Summary: Battery and Leads (BL) Normal parameters noted on battery and lead(s) Presenting Rhythm (TN) Atrial Sensing-Ventricular Sensing (-VS) Arrhythmic events (AE) Atrial fibrillation and/or flutter with controlled ventricular rate Nonsustained VT event(s) identified Anticoagulation (AC) Patient on anticoagulant therapy --- Plavix Procedure Note Lane Ramos MD PhD - 12/24/2024 Interpretation Summary: Battery and Leads (BL) Normal parameters noted on battery and lead(s) Presenting Rhythm (TN) Atrial Sensing-Ventricular Sensing (-VS) Arrhythmic events (AE) Atrial fibrillation and/or flutter with controlled ventricular rate Nonsustained VT event(s) identified Anticoagulation (AC) Patient on anticoagulant therapy --- Plavix Lane Ramos MD PhD [facility] PROCEDURES Final Result * SCAN - LABS (11/17/2024) us Provider Scanning Final Result from Last 3 Months
--- OUTSIDE RECORDS SUMMARY | 2025-02-15 14:12 | XMS_ITS ---
Author Organization [facility] Address [address] [place] [address] Care Team Providers Care Anthropologist Name Role Phone Quinton Rowan MD Unavailable [phone] Pal Downey DO Primary Care Provider Tami Flores RN Unavailable Cricket Escalante MD Unavailable [phone] Gael Sprague MD PhD Unavailable Brad Turner MD Unavailable [phone] Margarita Montoya MD Unavailable [phone] Luca Lott MD Unavailable Pb Galloway MD Unavailable Felipe Gerber MD Unavailable [phone] Transplant Episode Kidney Candidate [facility] ([place], [place]) [facility] Center waitlisted on 09/05/2021 Marked as Inactive on 03/13/2024 Reason: 03 - Candidate Work-up Incomplete Kidney CoordinatorTami Flores RN Email: N/A Scores Score Value Updated Exceptions/Reas ons CPRA Not available EPTS (Calc) 28 02/15/2025 [place] Organ Diagnosis Organ Primary Contributory Kidney Polycystic Kidneys Care Team Name Role Phone Fax Email Tami Flores RN Kidney Coordinator [phone] N/A Mariann Bobo Supervisor Plate Pasting [phone] N/A N/A Events Pre-Transplant Referred: 10/06/2020 Evaluation began: 03/24/2021 Committee: 09/04/2021 Center waitlisted: 09/05/2021 Dialysis History Dialysis History Start End Type Comments Center 01/09/2022 Peritoneal [facility] Information Center Phone Fax Address [facility] [phone] [address]
--- OUTSIDE RECORDS SUMMARY | 2025-02-15 14:12 | XMS_ITS | Referral Summary ---
Author Organization [facility] Address [address] [place] [address] Care Team Providers Care Dyed Raw Stock Blower Feeder Name Role Phone Quinton Rowan MD Unavailable Pal Downey DO Primary Care Provider [phone]- [phone] Tami Flores RN Unavailable Cricket Escalante MD Unavailable Gael Sprague MD PhD Unavailable Brad Turner MD Unavailable Margarita Montoya MD Unavailable Luca Lott MD Unavailable Pb Galloway MD Unavailable Felipe Gerber MD Unavailable Encounters Date Type Department Care Team Description 02/09/2025 Telephone [facility] [address] [facility] Medicine 8th [place] [address] [place] [address] Luca Lott MD 02/05/2025 Telephone [facility] [address] [facility] Medical Office Building [address] [place] [address] Luca Lott MD inquiry from INTEGRATION [employer]AD re: txp 02/05/2025 3:00 PM CDT Office Visit [facility] Medical Office Building [address] [place] [address] Miranda Joy NP Coronary artery disease involving diomede coronary artery of diomede heart without angina pectoris (Primary Dx); S/P TAVR (transcatheter aortic valve replacement); Nonrheumatic mitral valve stenosis; Chronic diastolic heart failure (HCC); Pre-transplant evaluation for end stage renal disease 01/28/2025 10:35 AM CDT - 01/28/2025 11:59 PM CDT Hospital Encounter [address] [address] Discharge Disposition: Discharge to home or self care 01/28/2025 10:02 AM CDT - 01/28/2025 11:59 PM CDT Hospital Encounter [facility] [address] [place] [address] ESRD (end stage renal disease) (HCC) Discharge Disposition: Discharge to home or self care 01/28/2025 10:02 AM CDT - 01/28/2025 11:59 PM CDT Hospital Encounter [facility] ([facility]) [address] [place] [address] ESRD (end stage renal disease) (HCC) Discharge Disposition: Discharge to home or self care 01/28/2025 10:02 AM CDT - 01/28/2025 11:59 PM CDT Hospital Encounter [facility] ([facility] [address] [place] [address] ESRD (end stage renal disease) (HCC) Discharge Disposition: Discharge to home or self care 01/28/2025 9:50 AM CDT Lab [facility] [address] [place] [phone] 01/28/2025 9:35 AM CDT Lab [facility] [address] [place] [phone] Polycystic liver disease; ESRD (end stage renal disease) (HCC) 01/28/2025 8:00 AM CDT Office Visit [facility] [address] [facility] Medicine 12th [place] [address] [place] [address] Abigail Vides MD Polycystic liver disease (Primary Dx) 01/22/2025 10:00 AM CDT - 01/22/2025 11:59 PM CDT Hospital Encounter [facility] [address] [place] [address] Discharge Disposition: Discharge to home or self care 01/22/2025 Orders Only [facility] [address] [facility] 2nd Floor [address] [place] [address] Salina Hector MD 01/12/2025 Orders Only [facility] [address] [facility] [address] Mailstop [id number] [place] [address] Tami Flores RN ESRD (end stage renal disease) (HCC) (Primary Dx) 01/04/2025 10:00 AM CDT - 01/04/2025 11:59 PM CDT Hospital Encounter [address] [address] ESRD (end stage renal disease) (HCC) Discharge Disposition: Discharge to home or self care 12/29/2024 Telephone [facility] [address] [place] [address] Medical Office Building [address] [place] [address] Luca Lott MD transplant candidacy 12/25/2024 Telephone [facility] [address] [place] [address] Medical Office Building [address] [place] [phone] Luca Lott MD post PCI recs 12/25/2024 8:00 AM ACCOUNTING AUDITOR - 12/25/2024 10:05 AM ACCOUNTING AUDITOR Surgery [facility] [address] [place] [phone] Luca Lott MD PCI KARINA MAJOR CORONARY [id number] - [id number] 12/25/2024 6:32 AM ACCOUNTING AUDITOR - 12/25/2024 3:55 PM ACCOUNTING AUDITOR Hospital Encounter [facility] [address] [place] [phone] Luca Lott MD Coronary artery disease involving diomede coronary artery of diomede heart with angina pectoris [I25.119] (Primary Dx); Chest pain, unspecified type; Chest pain Discharge Disposition: Discharge to home or self care 12/24/2024 Orders Only [facility] Scanning, Provider 12/22/2024 Orders Only [facility] Scanning, Provider 12/22/2024 Telephone [facility] [address] [facility] 8th [place] [address] [place] [phone] Luca Lott MD critical lab result 12/14/2024 Telephone [facility] [address] [facility] Medical Office Building [address] [place] [address] Luca Lott MD PCI per Dr. Lott 11/27/2024 10:00 AM ACCOUNTING AUDITOR - 11/27/2024 11:59 PM ACCOUNTING AUDITOR Hospital Encounter [address] [id number] ESRD (end stage renal disease) (HCC) Discharge Disposition: Discharge to home or self care 11/19/2024 2:02 PM ACCOUNTING AUDITOR - 11/19/2024 3:42 PM ACCOUNTING AUDITOR Surgery [facility] [address] [place] [phone] Luca Lott MD LEFT HEART CATHETERIZATION WITH CORONARY ANGIOGRAPHY AND WITH OR WITHOUT LEFT VENTRICULOGRAM [id number] 11/19/2024 11:04 AM ACCOUNTING AUDITOR - 11/19/2024 7:20 PM ACCOUNTING AUDITOR Hospital Encounter [facility] [address] [place] [phone] Luca Lott MD Coronary artery disease involving diomede coronary artery of diomede heart with angina pectoris (HCC) [I25.119] (Primary Dx); Chest pain, unspecified type Discharge Disposition: Discharge to home or self care 11/18/2024 11:45 AM ACCOUNTING AUDITOR Office Visit [facility] 8th [place] [address] [place] [address] Lane Ramos MD PhD SSS (sick sinus syndrome) (HCC) (Primary Dx) 11/18/2024 11:15 AM ACCOUNTING AUDITOR Ancillary Procedure [facility] [address] [place] [address] 8th [place] [address] [place] [address] SSS (sick sinus syndrome) (HCC) (Primary Dx); Fitting or adjustment of cardiac pacemaker 11/17/2024 Orders Only [facility] Scanning, Provider from Last 3 Months Allergies Active Allergy [...] (02/01/2022): Added automatically from request for surgery [id number] Assessment & Plan (02/05/2025 3:15 PM CDT): Undergoing pre transplant evaluation. We will review with Dr. Lott regarding possible candidacy for transplant list given recent interventions. Continued to DAPT Disorder of peritoneal dialysis catheter 022 Overview (12/22/2021): Added automatically from request for surgery [id number] Chronic kidney disease, stage V 10/31/2021 Overview (08/21/2023): Added automatically from request for surgery [id number] Sick sinus syndrome 11/02/2020 Diastolic heart failure [...] dysfunction Previous bioAVR with TAVR in 2018 Alexis TAVR 05/21 DAPT given previous PCI [...] Assessment & Plan (02/11/2019 6:16 PM CDT): [facility] with 95% LAD lesion, had some RV dysfunction during AV repair and found to have RCA occlusion following LAD bypass - s/p IABP placement - CABG to LAD and LCA - on Epi and Milrinone of inotropy Assessment & Plan (02/08/2019 5:38 PM CDT): -Patient w/ chest pain/SOB along w/ significant troponin elevation -Plan for [facility] w/ possible PCI tomorrow pending results [...] to 4.35 - valve team consulted, 02/09 [facility] with severe 1 vessel disease of [...] (02/09/2019): Added automatically from request for surgery [id number] Assessment & Plan (05/17/2019 9:19 AM CDT): [...] (02/10/2019): Added automatically from request for surgery [id number] Assessment & Plan (02/05/2025 3:15 PM CDT): [...] & Plan (05/24/2024 11:21 AM CDT): CABG 2019 (SVG-LAD, T graft-RCA), PCI SVG-LAD 02/2022 and [...] LAD status post laser atherectomy with OSIRO karnia placement now arrives as transfer from OSH with left shoulder pain similar to previous GA -EKG changes per OSH --Slight elevation in [...] currently stable Daily BMPs, while inpatient Home faro dealer is Dr. Escalante Continue lasix 40 mg [...] kidney disease, baseline Cr 2.4-2.6. F/b OSH faro dealer. Apparently discussions for potential need for renal txp being discussed. - Cr at baseline on adm - avoid nephrotoxins, renally dose meds - continue calcitriol 0.5 mcg/day - Cr 2.75, received pre-cath hydration, stable 2.7 Headache 05/02/2016 Moderate COPD (chronic obstr uctive pulmonary disease) ([facility]) 11/02/2015 Assessment & Plan (08/02/2022 5:33 PM [...] AM CDT): Alexis TAVR 05/21 Followed by [facility], Dr. Lott. CT TAVR [...] not a candidate for [facility] Assessment & Plan (05/17/2019 9:28 AM CDT): [...] AV. Referred to valve team by primary wax pot tender Dr. Rowan. Seen 02/02 by valve team [...] around 2.4 Dr Escalante is her home faro dealer Assessment & Plan (02/23/2019 12:20 PM CDT): Pt above POW by 2 kg. Lasix on hold due to elevation in Creatinine Baseline creat is around 2.4 Dr Escalante is her home faro dealer Agitation requiring sedation protocol 02/14/2019 02/23/2019 Acute [...] she had reactions to (?). Per OSH faro dealer's note in Care Everywhere, pt tried metoprolol [...] on file Legal Sex Female 4:06 AM ACCOUNTING AUDITOR Gender Identity Female 01/16/2024 11:18 AM CDT Sexual Orientation Straight 01/16/2024 11 :18 AM CDT Last Filed Vital Signs Vital Sign Reading Time Taken Comments Blood Pressure 88/62 02/05/2025 2:30 PM CDT Pulse 63 02/05/2025 2:30 PM CDT Temperature 36.6 C (97.9 F) 01/28/2025 7:43 AM CDT Respiratory Rate 18 12/25/2024 3:23 PM ACCOUNTING AUDITOR Oxygen Saturation 93% 02/05/2025 2:30 PM CDT [...] disease) (HCC) Medical Devices Implanted Type Area Bronze Chaser Device Identifier Shelf Expiration Date Model / Serial / Lot Angio-Seal Evolution 6fr Vascular Closure [id number] - [id number] - [id number] Implanted:Qty: 1 on 03/09/2022 by Luca Lott MD at [facility] Collagen Right: Femoral Terumo Medical Pam 09/19/2022 [id number] / [id number] / [id number] Terumo Medical Pam Angio-Seal Vip 6fr Closere Device [id number] - [id number] - [id number] Implanted:Qty: 1 on 07/24/2022 by Luca Lott MD at [facility] Collagen [employer]o [employer] Pam 03/20/2023 [id number] / [id number] / [id number] Terumo Medical Pam Angio-Seal Vip 6fr Closere Device [id number] - [id number] - [id number] Implanted:Qty: 1 on 05/21/[address] [facility] Collagen Right: Common Femoral Artery Ter[employer]o Medical Pam 01/09/2025 [id number] / [id number] / [id number] Terumo Medical Pam Angio-Seal Vip Bondek-Plus 8fr .038in 70cm Hemostatic Latex Free [id number] - [id number] - [id number] Implanted:Qty: 1 on 05/21/2024 by Felipe Gerber MD at [facility] Collagen Right: Common Femoral Artery Ter[employer]o Medical Pam 01/06/2025 [id number] / [id number] / [id number] Medtronic Cardiac Rhythm Mgmt 5076-52 Capsurefix Novus 6.2fr 2mm 52cm Bipolar Screw In Implantable Latex Free - [id number] - [id number] Implanted:Qty: 1 on 05/15/[address] Ramos MD PhD at [facility] Lead Medtronic Inc 03/11/2021 5076-52 / [id number] / Medtronic Cardiac Rhythm Mgmt 5076-45 Capsurefix Novus 6.2fr 2mm 45cm Bipolar Screw In Implantable - [id number] - [id number] Implanted:Qty: 1 on 05/15/[address] Ramos MD PhD at [facility] Lead Medtronic Inc 03/30/2021 5076-45 / [id number] / [employer] [id number] Linear 7.5fr 6in Insertion Kit Night Guard Introducer Sheath - [id number] Implanted:Qty: 1 on 02/10/2019 by Luca Lott MD at [facility] Other - see comments [employer] [id number] [id number] / / Description:IABP Medtronic Inc [id number] Dundas Curl Cath Beta-Cap Holden 15fr 57cm 2 Cuff Clamp Adapter - [id number] - [id number] Implanted:Qty: 1 on 11/21/2021 by Carlos Kamara MD at [facility] Other - see comments N/A: Abdomen Medtronic Inc 11/30/2022 8811-31 3015 / 0 / [id number] Medtronic Cardiac Rhythm Mgmt W1dr01 Tereza Wirelessly Pacemaker Cardiac - [id number] - [id number] Implanted:Qty: 1 on 05/15/[address] Ramos MD PhD at [facility] Pacemaker Medtronic Inc [id number] 09/17/2020 W1DR01 / [id number] / Jamil Lifesciences Valve Aortic Trnscath Brown 3 Ultra Resilia 20mm [id number] - [id number] - [id number] Implanted:Qty: 1 on 05/21/2024 by Felipe Gerber MD at [facility] Prosthetic Valve N/A: Aortic Valve Jamil Lif[employer]iences 02/27/2027 [id number] [id number] / [id number] / Medtronic Inc Resolute Clive 4mm 2.1-2.7fr 12mm 140cm Rapid Exchange Radiopaque [id number] - [id number] - [id number] Implanted:Qty: 1 on 03/09/2022 by Luca Lott MD at [facility] Stent Left: Coronary Medtronic Inc 12/06/2022 [id number] 012UX / [id number] / [id number] Description:LAD Biotronik Inc Stent Coronary De Rx Cocr Ors Msn 4.0x15mm [id number] - [id number] - [id number] Implanted:Qty: 1 on 07/24/2022 by Luca Lott MD at [facility] Stent Biotronik Inc 09/05/2023 [id number] / [id number] / [id number] Medtronic Card Vasc Surgery 4.0 X 15mm Clive [place] Rx Coronary Stent [id number] - [id number] - [id number] Implanted:Qty: 1 on 11/19/2024 by Luca Lott MD at [facility] Stent N/A: Saphenous Vein Graft Medtronic Card Vasc Surgery 05/05/2027 [id number] / [id number] / [id number] Medtronic Card Vasc Surgery 2.50 X 12mm Clive [place] Rx Coronary Stent [id number] - [id number] - [id number] Implanted:Qty: 1 on 12/25/2024 by Luca Lott MD at [facility] Stent Medtronic Card Vasc Surgery 06/03/2027 [id number] / [id number] / [id number] Painter Vascular System Closure Repair Femoral Artery Suture Mediated Perclose Prostyle 62151-62 - [id number] - [id number] Implanted:Qty: 1 on 05/21/2024 by Felipe Gerber MD at [facility] Vascular Closure Device Left: Common Femoral Artery Painter Vascular 02/17/2026 30447-5 3 / [id number] / [id number] Terumo Medical Pam Angio-Seal Vip 6fr Closere Device 138009 - [id number] - [id number] Implanted:Qty: 1 on 11/19/2024 by Luca Lott MD at [facility] Vascular Closure Device N/A: Saphenous Vein Graft [employer] Medical Pam 04/29/2025 [id number] / [id number] / [id number] Terumo Medical Pam Angio-Seal Vip 6fr Closere Device [id number] - [id number] - [id number] Implanted:Qty: 1 on 12/25/2024 by Sanket Quiroz MD at [facility] Vascular Closure Device Right: Common Femoral Artery [employer] Medical Pam 06/30/2025 332802 / [id number] / [id number] Description:RFA Ter[employer]o Medical Pam Angio-Seal Vip Bondek-Plus 8fr .038in 70cm Hemostatic Latex Free [id number] - [id number] - [id number] Implanted:Qty: 1 on 12/25/2024 by Sanket Quiroz MD at [facility] Vascular Closure Device Right: Femoral Vein Rundown App Pam 07/21/2025 066940 / [id number] / [id number] Description:RFV Sotelo achvr Pam [id number] Supple Ronna-Guard [place] Processing 4x4cm Patch Cardiovascular - [id number] - [id number] Implanted:Qty: 1 on 02/11/2019 by Christopher Holman MD at [facility] N/A: Chest Sot[employer] Pam 06/03/2023 [id number] / [id number] / [id number] Jamil Lifesciences [id number] Certitude Brown 3 Atrion 18fr Transcatheter Introducer Crimper - [id number] - [id number] Implanted:Qty: 1 on 02/11/2019 by Christopher Holman MD at [facility] N/A: Heart Jamil Lif[employer]iences [id number] / [id number] / Medtronic Inc [id number] Dundas Curl Cath Beta-Cap Holden 15fr 57cm 2 Cuff Clamp Adapter - [id number] Implanted:Qty: 1 on 12/27/2021 by Margarita Montoya MD at [facility] N/A: Abdomen Medtronic Inc 10/14/2023 8811-31 [...] AND CHEMISTRIES, VENOUS Routine 12/25/2024 2:21 PM ACCOUNTING AUDITOR EGFR Routine 12/25/2024 1:19 PM ACCOUNTING AUDITOR CRITICAL RESULT CALLBACK CHEMISTRY Routine 12/25/2024 1:19 PM ACCOUNTING AUDITOR DIFFERENTIAL AUTO Routine 12/25/2024 1:1 9 PM ACCOUNTING AUDITOR CBC WITH AUTO DIFFERENTIAL Routine 12/25/2024 1:19 PM ACCOUNTING AUDITOR BASIC METABOLIC PANEL Routine 12/25/2024 1:19 PM ACCOUNTING AUDITOR KARINA MAJOR CORONARY Routine 12/25/2024 10:05 AM ACCOUNTING AUDITOR Chest pain, unspecified type POCT ACTIVATED CLOTTING TIME, LOW RANGE Routine 12/25/2024 10:05 AM ACCOUNTING AUDITOR POCT ACTIVATED CLOTTING TIME, LOW RANGE Routine 12/25/2024 9:24 AM ACCOUNTING AUDITOR POCT ACTIVATED CLOTTING TIME, LOW RANGE Routine 12/25/2024 8:58 AM ACCOUNTING AUDITOR TYPE AND SCREEN Timed 12/25/2024 8:13 AM ACCOUNTING AUDITOR POC BLOOD GAS AND CHEMISTRIES, ARTERIAL Routine 12/25/2024 8:12 AM ACCOUNTING AUDITOR POC BLOOD GAS AND CHEMISTRIES, ARTERIAL Routine 12/25/2024 8:08 AM ACCOUNTING AUDITOR ECG 12-LEAD Routine 12/25/2024 6:56 AM ACCOUNTING AUDITOR SCAN - LABS 12/24/2024 SCAN - LABS 12/22/2024 CBC WITH AUTO DIFFERENTIAL Routine 12/21/2024 12:48 PM ACCOUNTING AUDITOR Chest pain, unspecified type BASIC METABOLIC PANEL Routine 12/21/2024 12:48 PM ACCOUNTING AUDITOR Chest pain, unspecified type HLA ANTIBODY SCREEN - SAB (CLASS I AND CLASS II) Routine 11/27/2024 10:00 AM ACCOUNTING AUDITOR ESRD (end stage renal disease) (HCC) HLA ANTIBODY SCREEN BY PRA OR SAB PER SCHEDULE (CLASS I AND CLASS II) Routine 11/27/2024 10:00 AM ACCOUNTING AUDITOR ESRD (end stage renal disease) (HCC) EGFR Routine 11/19/2024 6:00 PM ACCOUNTING AUDITOR DIFFERENTIAL AUTO Routine 11/19/2024 6:0 0 PM ACCOUNTING AUDITOR CBC WITH AUTO DIFFERENTIAL Routine 11/19/2024 6:00 PM ACCOUNTING AUDITOR BASIC METABOLIC PANEL Routine 11/19/2024 6:00 PM ACCOUNTING AUDITOR POCT ACTIVATED CLOTTING TIME, LOW RANGE Routine 11/19/2024 4:42 PM ACCOUNTING AUDITOR POCT ACTIVATED CLOTTING TIME, LOW RANGE Routine 11/19/2024 3:23 PM ACCOUNTING AUDITOR LEFT HEART CATHETERIZATION WITH CORONARY ANGIOGRAPHY AND WITH AND WITHOUT LEFT VENTRICULOGRAM Routine 11/19/2024 2:50 PM ACCOUNTING AUDITOR Chest pain, unspecified type POCT ACTIVATED CLOTTING TIME, LOW RANGE Routine 11/19/2024 2:49 PM ACCOUNTING AUDITOR POCT ACTIVATED CLOTTING TIME, LOW RANGE Routine 11/19/2024 2:30 PM ACCOUNTING AUDITOR POCT ACTIVATED CLOTTING TIME, LOW RANGE Routine 11/19/2024 2:01 PM ACCOUNTING AUDITOR TYPE AND SCREEN Timed 11/19/2024 2:01 PM ACCOUNTING AUDITOR POCT ACTIVATED CLOTTING TIME, LOW RANGE Routine 11/19/2024 1:53 PM ACCOUNTING AUDITOR POCT ACTIVATED CLOTTING TIME, LOW RANGE Routine 11/19/2024 1:49 PM ACCOUNTING AUDITOR POCT OXYHEMOGLOBIN - DEVICE Routine 11/19/2024 1:27 PM ACCOUNTING AUDITOR POCT OXYHEMOGLOBIN - DEVICE Routine 11/19/2024 1:26 PM ACCOUNTING AUDITOR POCT OXYHEMOGLOBIN - DEVICE Routine 11/19/2024 1:26 PM ACCOUNTING AUDITOR POC BLOOD GAS AND CHEMISTRIES, ARTERIAL Routine 11/19/2024 11:45 AM ACCOUNTING AUDITOR ECG 12-LEAD Routine 11/19/2024 11:16 AM ACCOUNTING AUDITOR DEVICE CHECK - IN OFFICE Routine 11/18/2024 11:20 AM ACCOUNTING AUDITOR Fitting or adjustment of cardiac pacemaker SSS [...] ECG 12 lead (01/28/2025 10:10 AM CDT) Ventricular Rate EKG/Min 79 BPM [facility] Atrial Rate 79 BPM [facility] [place]-Interval (MSEC) 164 ms [facility] QRS-Interval (MSEC) 88 ms [facility] QT-Interval (MSEC) 396 ms [facility] QTc [address] [facility] P [place] 112 degrees [facility] R [place] -[address] [facility] T [place] [address] [facility] Diagnosis Atrial-paced rhythm in a pattern of bigeminy Anteroseptal infarct (cited on 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-MAY-2024) ST & T wave abnormality, consider lateral ischemia Abnormal ECG When compared with ECG of 25-DEC-2024 06:56, Premature atrial complexes are no longer Present Confirmed by HARJINDER HANDY M.D ([id number]) on 01/29/2025 11:51:[address] [facility] 01/28/2025 10:1 0 AM CDT 01/29/2025 11:51 AM CDT Tamar Tang MD ECG ORDERABLES Final Result [facility] * Mislabeled Test (01/28/2025 9:47 AM CDT) Location Other location Reason No Signature On Blood Bank Specimen [facility] Mislabel resolution Testing canceled [facility] Blood 01/28/2025 9:47 AM CDT 01/28/2025 11:45 AM CDT Abigail Vides MD LAB BLOOD ORDERABLES Final Result [facility] [place] [address] * (ABNORMAL) eGFR (01/28/2025 9:42 AM CDT) [...] MD LAB BLOOD ORDERABLES Final Res ult [facility] [place] [address] * HIV 1/2 Antibody plus p24 Antigen [...] AM CDT us Tamar Tang MD LAB MICROBIOLOGY - GENERAL ORD ERABLES Final Result Performing Organization Address [facility] Co de Phone Number [facility] [employer] [place] [address] * Hepatitis C antibody Blood (01/28/2025 9:42 AM CDT) Hep C Ab Nonreactive Nonreactive Comment:Antibodies to HCV no t detected. Does NOT exclude the possibility of recent exposure to HCV. Current interpretive data was last revised on 22 Blood 01/28/2025 9:42 AM CDT 01/28/2025 10:56 AM CDT Tamar Tang MD LAB MICROBIOLOGY - GENERAL ORD ERABLES Final Result Performing Organization Address [facility] Co de Phone Number [facility] [place] [employer] [place] [address] * Hepatitis B core antibody, total Blood (01/28/2025 9:42 AM CDT) Hep B core IgG/IgM Nonreactive Nonreactive Blood 01/28/2025 9:42 AM CDT 01/28/2025 10:56 AM CDT Tamar Tang MD LAB MICROBIOLOGY - GENERAL ORD ERABLES Final Result Performing Organization Address City/[facility] Co de Phone Number [facility] [place] [address] * Hepatitis B surface antibody (immune status) Blood (01/28/2025 9:42 AM CDT) HBsAb (immune status) Nonreactive Comment:This result is consi stent with a lack of immunity to Hepatitis B Virus when used in the setting of routine screening. Current interpretative data was last revised on 22 Blood 01/28/2025 9:42 AM CDT 01/28/2025 10:56 AM CDT Tamar Tang MD LAB MICROBIOLOGY - GENERAL ORD ERABLES Final Result [facility] [place] [address] * Hepatitis B Surface Antigen Blood (01/28/2025 9:42 AM CDT) [facility] HepBsAg Nonreactive Nonreactive Blood 01/28/2025 9:42 AM CDT 01/28/2025 10:56 AM CDT Tamar Tang MD LAB MICROBIOLOGY - GENERAL ORD ERABLES Final Result Performing Organization Address City/[facility] Co de Phone Number [facility] Department [place] [address] * (ABNORMAL) CBC without differential (01/28/2025 9:42 AM CDT) [facility] WBC 5.32 3.80 - 9.90 K/cumm Hgb 13.1 11.9 - 15.5 g/dL [facility] Hct 41.5 35.6 - 45.5 % [facility] Plt 156 150 - 400 K/cumm [facility] MPV 10.5 9.1 - 12.3 fL [facility] RBC 4.64 3.90 - 5.20 M/cumm [facility] MCV 89.4 81.3 - 96.4 fL [facility] MCH 28.2 27.1 - 33.3 pg [facility] MCHC 31.6(L) 32.3 - 35.7 g/dL [facility] RDW CV 16.1(H) 11.1 - 14.9 % [facility] RDW SD 51.8(H) 35.7 - 48.1 fL [facility] NRBC abs 0.00 0.00 - 0.01 K/cumm [facility] Blood 01/28/2025 9:42 AM CDT 01/28/2025 10:58 AM CDT Abigail Vides MD LAB BLOOD ORDERABLES Final Result Performing Organization Address [facility] [facility] Co de Phone Number [facility] [place] [address] * (ABNORMAL) Phosphorus (01/28/2025 9:42 AM CDT) Phosphorus, pl 7.4(H) 2.3 - 4.5 mg/dL Blood 01/28/2025 9:42 AM CDT 01/28/2025 10:56 AM CDT Tamar Tang MD LAB BLOOD ORDERABLES Final Res ult Performing Organization Address [facility] Co de Phone Number [facility] [place] [address] * PTH (01/28/2025 9:42 AM CDT) PTH 43 15 - 65 pg/mL Blood 01/28/2025 9:42 AM CDT 01/28/2025 10:56 AM CDT Tamar Tang MD LAB BLOOD ORDERABLES Final Res ult Performing Organization Address [facility] de Phone Number [facility] [place] [employer] [place] [address] * (ABNORMAL) Hemoglobin A1c (01/28/2025 9:42 AM CDT) Hgb A1C 5.8(H) 4.0 - 5.6 % Estimated Average Glucose 120 mg/dL [facility] Comment: The ADA recommends reporting an estimated [...] MD LAB BLOOD ORDERABLES Final Res ult [facility] [place] [address] * (ABNORMAL) Comprehensive metabolic panel (01/28/2025 9:42 AM CDT) Sodium 137 135 - 145 mmol/L Potassium, pl 5.7(H) 3.3 - 4.9 mmol/L [facility] Chloride 95(L) 97 - 110 mmol/L [facility] CO2 27 22 - 32 mmol/L [facility] Anion gap 15 2 - 15 mmol/L [facility] BUN 61(H) 6 - 25 mg/dL [facility] Creatinine 14.50(H) 0.60 - 1.10 mg/dL [facility] Glucose 77 70 - 199 mg/dL [facility] Comment: Interpretive Data Fasting glucose >/= 126 [...] 2022. Calcium 7.3(L) 8.5 - 10.3 mg/dL [facility] Bilirubin, total 0.3 0.1 - 1.2 mg/dL [facility] Protein, pl 6.8 6.5 - 8.5 g/dL [facility] Albumin 3.2(L) 3.5 - 5.0 g/dL [facility] Alk phos 64 40 - 130 Units/L [facility] ALT 20 7 - 45 Units/L [facility] AST 24 10 - 45 Units/L [facility] Blood 01/28/2025 9:42 AM CDT 01/28/2025 10:56 AM CDT us Tamar Tang MD LAB BLOOD ORDERABLES Final Res ult [facility] [place] [address] * HLA Antibody Screen - SAB (Class [...] a method developed and validated by the [facility] HLA laboratory based on an FDA-approved IVD kit (LABScreen Single-Antigen, [employer], [place], [place]). All patient serum samples are pretreated with EDTA before the screen to prevent complement interference. Additional serum treatments, such as adsorption and DTT treatment, may be performed as indicated. Interpretive comments: Low risk: MFI [id number]. Moderate risk: MFI [id number]. Increased risk: MFI >/= 5000. The presence [...] performed at the [facility], [address] [place] [address], 5th floor, [place], [address]. [facility] # [id number]. Rosa Millan, Ph.D., Supervisor [employer], HLA Laboratory Wilmer Prescott M.D., Ph.D., Administration Physician, [facility] Laboratory Alma Payton, Ph.D., CLIA Administration Physician, [facility] Current methodology and interpretive comments last revised on 11/15/2022. Salina Hector MD LAB BLOOD ORDERABLES Final Resul t Performing Organization Address City/[facility] Co de Phone Number [facility] * HLA Antibody Screen by PRA or SAB per Schedule (Class I and Class II) (01/04/2025 10:00 AM CDT) Blood 01/04/2025 10:0 0 AM CDT Narrative [facility] - ACCOUNTING AUDITOR Sample received in lab and stored. No testing performed at this time. Salina Hector MD LAB BLOOD ORDERABLES Final Resul t Performing Organization Address [facility]/ZIP Co de Phone Number [facility] * (ABNORMAL) POC Blood Gas and Chemistries, Venous - (12/25/2024 2:21 PM ACCOUNTING AUDITOR) pH, [place] POC 7.29(L) 7.32 - 7.43 pCO2, [place] POC 47 40 - 50 mmHg [facility] pO2, [place] POC 29 mmHg [facility] Na, POC 131(L) 135 - 145 mmol/L [facility] K POC 5.3(H) 3.3 - 4.9 mmol/L [facility] Comment: Interpretive Data Not all point of care methods assess for hemolysis. Confirm with instrument and retest K+ if not consistent with clinical signs and symptoms. Current Interpretive Data was last revised on 2024. Cl, POC 101 97 - 110 mmol/L [facility] Ionized Ca, POC 3.10(C) 4.50 - 5.10 mg/dL [facility] Glucose, POC 137 70 - 199 mg/dL [facility] Lactate, POC 1.1 0.7 - 2.0 mmol/L [facility] O2 Sat, [place] POC (Nevin) 38 % [facility] Base excess, POC -4.0 mmol/L [facility] HCO3, [place] POC 23 20 - 30 mmol/L [facility] Hct, POC 33.0(L) 36.3 - 45.3 % [facility] Total Hb, POC 11.1(L) 11.9 - 15.5 g/dL [facility] Blood 12/25/2024 2:21 PM ACCOUNTING AUDITOR 12/25/2024 2:21 PM ACCOUNTING AUDITOR us Luca Lott MD LAB POCT ORDERABLES - DEVICE Final Result [facility] [place] [address] * (ABNORMAL) eGFR (12/25/2024 1:19 PM ACCOUNTING AUDITOR) eGFR 3(L) >=60 mL/min/1. 73 m2 Comment: [...] last reviewed 2021. Blood 12/25/2024 1:19 PM ACCOUNTING AUDITOR 12/25/2024 1:30 PM ACCOUNTING AUDITOR Luca Lott MD LAB BLOOD ORDERABLES Final R esult [facility] [place] [address] * (ABNORMAL) Differential, auto (12/25/2024 1:19 PM ACCOUNTING AUDITOR) Neutrophil abs 5.1 1.5 - 6.5 K/cumm Imm gran abs 0.0 0.0 - 0.1 K/cumm [facility] Lymphocyte abs 0.7(L) 0.8 - 3.3 K/cumm [facility] Monocyte abs 0.4 0.2 - 0.8 K/cumm [facility] Eosinophil abs 0.1 0.0 - 0.5 K/cumm [facility] Basophil abs 0.0 0.0 - 0.1 K/cumm [facility] Neutrophil pct 80.1 % [facility] Comment: Interpretive Data Percent cell count reference ranges are not reported, since discordance with absolute values may lead to misinterpretation of CBC data. Current Interpretive Data was last revised on 2018. Imm gran pct 0.5 % [facility] Comment: Interpretive Data Percent cell count reference ranges are not reported, since discordance with absolute values may lead to misinterpretation of CBC data. Current Interpretive Data was last revised on 2018. Lymphocyte pct 11.3 % [facility] Comment: Interpretive Data Percent cell count reference ranges are not reported, since discordance with absolute values may lead to misinterpretation of CBC data. Current Interpretive Data was last revised on 2018. Monocyte pct 6.0 % [facility] Comment: Interpretive Data Percent cell count reference ranges are not reported, since discordance with absolute values may lead to misinterpretation of CBC data. Current Interpretive Data was last revised on 2018. Eosinophil pct 1.6 % [facility] Comment: Interpretive Data Percent cell count reference ranges are not reported, since discordance with absolute values may lead to misinterpretation of CBC data. Current Interpretive Data was last revised on 2018. Basophil pct 0.5 % [facility] Comment: Interpretive Data Percent cell count reference ranges are not reported, since discordance with absolute values may lead to misinterpretation of CBC data. Current Interpretive Data was last revised on 2018. Blood 12/25/2024 1:19 PM ACCOUNTING AUDITOR 12/25/2024 1:30 PM ACCOUNTING AUDITOR us Luca Lott MD LAB BLOOD ORDERABLES Final R esult [facility] [place] [address] * Critical Result Callback Chemistry (12/25/2024 1:19 PM ACCOUNTING AUDITOR) Date Notified [id number] Time Notified 0 [facility] TestName Potassium Plas Calcium [facility] Called/Read Back Grisel SALOMON Credentials RN [facility] Called By NELSON SALOMON Blood 12/25/2024 1:19 PM ACCOUNTING AUDITOR 12/25/2024 1:30 PM ACCOUNTING AUDITOR Luca Lott MD LAB BLOOD ORDERABLES Final R esult [facility] [place] [address] * (ABNORMAL) CBC with auto differential (12/25/2024 1:19 PM ACCOUNTING AUDITOR) [facility] WBC 6.3 3.8 - 9.9 K/cumm Hgb 11.2(L) 11.9 - 15.5 g/dL [facility] Hct 36.0 35.6 - 45.5 % [facility] Plt 106(L) 150 - 400 K/cumm [facility] MPV 10.1 9.1 - 12.3 fL [facility] RBC 3.99 3.90 - 5.20 M/cumm [facility] MCV 90.2 81.3 - 96.4 fL [facility] MCH 28.1 27.1 - 33.3 pg [facility] MCHC 31.1(L) 32.3 - 35.7 g/dL [facility] RDW CV 15.4(H) 11.1 - 14.9 % [facility] RDW SD 50.8(H) 35.7 - 48.1 fL [facility] NRBC abs 0.00 0.00 - 0.01 K/cumm [facility] Blood 12/25/2024 1:19 PM ACCOUNTING AUDITOR 12/25/2024 1:30 PM ACCOUNTING AUDITOR Luca Lott MD LAB BLOOD ORDERABLES Final R esult Performing Organization Address [facility] Co de Phone Number [facility] Department [place] [address] * (ABNORMAL) Basic metabolic panel (12/25/2024 1:19 PM ACCOUNTING AUDITOR) [facility] Sodium 135 135 - 145 mmol/L Potassium, pl 6.3(C) 3.3 - 4.9 mmol/L [facility] Chloride 95(L) 97 - 110 mmol/L [facility] CO2 23 22 - 32 mmol/L [facility] Anion gap 17(H) 2 - 15 mmol/L [facility] BUN 59(H) 6 - 25 mg/dL [facility] Creatinine 15.37(H) 0.60 - 1.10 mg/dL [facility] Glucose 142 70 - 199 mg/dL [facility] Comment: Interpretive Data Fasting glucose >/= 126 [...] 2022. Calcium 5.7(C) 8.5 - 10.3 mg/dL [facility] Blood 12/25/2024 1:19 PM ACCOUNTING AUDITOR 12/25/2024 1:30 PM ACCOUNTING AUDITOR us Luca Lott MD LAB BLOOD ORDERABLES Final R esult [facility] [place] [address] * KARINA MAJOR CORONARY (12/25/2024 10:05 AM ACCOUNTING AUDITOR) Anatomical Region Laterality Modality X-Ray Angiograph y Impressions 12/25/2024 3:40 PM ACCOUNTING AUDITOR Severely calcified left main stenosis status post [...] Luca Lott MD Narrative 12/25/2024 3:40 PM ACCOUNTING AUDITOR Table formatting from the original result was not included. Procedure: CORONARY ANGIOGRAM / PERCUTANEOUS CORONARY INTERVENTION Patient: Ginger Marshall is a 54 y.o. female : 1970 MR number: [id number] Date of Service: 12/25/2024 Health Editor: Luca Lott MD Fellow: Sanket Quiroz MD [...] obtained. The patient was brought to the cytogenetics laboratory manager and placed on the table Bilateral [...] Flow 3. Equipment used: 7 JL 3.0, [employer] [place] IVUS Catheter, whisper wire, 2 0 x 12 emerge balloon, 225 x 12 NC emerge balloon, 2 5 x 12 NC emerge balloon, 2 5 shockwave lithotripsy balloon, 6 Lebanese GuideLiner [place], 2 5 x 12 mm [...] right common femoral artery and a 7 Lebanese sheath inserted without difficulty. Next we took a 7 Lebanese JL 3 guiding catheter up and sat [...] was unsuccessful. We then placed a 6 Lebanese GuideLiner down from with an additional 225 [...] clotting time, low range (12/25/2024 10:05 AM ACCOUNTING AUDITOR) [facility] ACT 298(H) 123 - 168 sec POC Performer [id number] [facility] POC Device Number [id number] [facility] Blood 12/25/2024 10:0 5 AM ACCOUNTING AUDITOR 12/25/2024 10:05 AM ACCOUNTING AUDITOR us Luca Lott MD LAB POCT ORDERABLES - DEVICE Final Result Performing Organization Address [facility] Co de Phone Number [facility] [employer] [place] [address] * (ABNORMAL) POCT Activated clotting time, low range (12/25/2024 9:24 AM ACCOUNTING AUDITOR) ACT 329(H) 123 - 168 sec POC Performer [id number] [facility] POC Device Number [id number] [facility] Blood 12/25/2024 9:24 AM ACCOUNTING AUDITOR 12/25/2024 9:24 AM ACCOUNTING AUDITOR us Luca Lott MD LAB POCT ORDERABLES - DEVICE Final Result Performing Organization Address [facility] Co de Phone Number [facility] [employer] [place] [address] * (ABNORMAL) POCT Activated clotting time, low range (12/25/2024 8:58 AM ACCOUNTING AUDITOR) ACT >400(H) 123 - 168 sec POC Performer [id number] [facility] POC Device Number [id number] [facility] Blood 12/25/2024 8:58 AM ACCOUNTING AUDITOR 12/25/2024 8:58 AM ACCOUNTING AUDITOR us Luca Lott MD LAB POCT ORDERABLES - DEVICE Final Result Performing Organization Address City/[facility] Co de Phone Number [facility] [employer] [place] [address] * Type and screen (12/25/2024 8:13 AM ACCOUNTING AUDITOR) ABO Rh B Positive Jorge A, indirect Negative [facility] Blood 12/25/2024 8:13 AM ACCOUNTING AUDITOR 12/25/2024 8:20 AM ACCOUNTING AUDITOR Narrative [facility] - 12/25/2024 9:11 AM ACCOUNTING AUDITOR Has the patient had Daratumumab or Isatuximab in the past 6 months?->Unknown Luca Lott MD LAB BLOOD BANK TEST ORDERABL ES Final Result [facility] [place] [address] * (ABNORMAL) POC Blood Gas and Chemistries, Arterial - (12/25/2024 8:12 AM ACCOUNTING AUDITOR) pH, Art POC 7.39 7.35 - 7.45 pCO2, Art POC 32(L) 35 - 45 mmHg [facility] pO2, Art POC 84 83 - 108 mmHg [facility] Na, POC 135 135 - 145 mmol/L [facility] K POC 5.5(H) 3.3 - 4.9 mmol/L [facility] Comment: Interpretive Data Not all point of care methods assess for hemolysis. Confirm with instrument and retest K+ if not consistent with clinical signs and symptoms. Current Interpretive Data was last revised on 2024. Cl, POC 101 97 - 110 mmol/L [facility] Ionized Ca, POC 2.96(C) 4.50 - 5.10 mg/dL [facility] Glucose, POC 88 70 - 199 mg/dL [facility] Lactate, POC 1.1 0.7 - 2.0 mmol/L [facility] SO2 (nevin) arterial 96(H) 90 - 95 % [facility] Base excess, POC -4.7 mmol/L [facility] HCO3, Art POC 19(L) 20 - 30 mmol/L [facility] Hct, POC 36.0(L) 36.3 - 45.3 % [facility] Total Hb, POC 11.9 11.9 - 15.5 g/dL [facility] Blood 12/25/2024 8:12 AM ACCOUNTING AUDITOR 12/25/2024 8:12 AM ACCOUNTING AUDITOR Luca Lott MD LAB POCT ORDERABLES - DEVICE Final Result Performing Organization Address [facility] de Phone Number [facility] [place] [address] * (ABNORMAL) POC Blood Gas and Chemistries, Arterial - (12/25/2024 8:08 AM ACCOUNTING AUDITOR) [facility] K POC 5.2(H) 3.3 - 4.9 mmol/L Comment: Interpretive Data Not all point of care methods assess for hemolysis. Confirm with instrument and retest K+ if not consistent with clinical signs and symptoms. Current Interpretive Data was last revised on 2024. Blood 12/25/2024 8:08 AM ACCOUNTING AUDITOR 12/25/2024 8:08 AM ACCOUNTING AUDITOR Luca Lott MD LAB POCT ORDERABLES - DEVICE Final Result Performing Organization Address [facility] de Phone Number [facility] [place] [address] * ECG 12 lead (12/25/2024 6:56 AM ACCOUNTING AUDITOR) [facility] Ventricular Rate EKG/Min 82 BPM [facility] Atrial Rate [address] [facility] QRS-Interval (MSEC) [address] [facility] QT-Interval (MSEC) [address] [facility] QTc [address] [facility] R [place] -[address] [facility] T [place] [address] [facility] Diagnosis atrial-paced complexes Premature atrial complexes in a pattern of bigeminy Minimal voltage criteria for LVH, may be normal variant ( Oliverio product ) Septal infarct , age undetermined T wave abnormality, consider lateral ischemia Abnormal ECG When compared with ECG of 19-NOV-2024 11:16, no significant change Confirmed by HARJINDER HANDY M.D ([id number]) on 01/06/2025 3:41:[address] [facility] 12/25/2024 6:56 AM ACCOUNTING AUDITOR 01/06/2025 3:41 PM CDT us Luca Lott MD ECG ORDERABLES Final Result [facility] * SCAN - LABS (12/24/2024) us Provider Scanning Final Result * SCAN - LABS (12/22/2024) us Provider Scanning Final Result * (ABNORMAL) CBC with auto differential (12/21/2024 12:48 PM ACCOUNTING AUDITOR) Pathologist [facility] WBC 7.0 3.4 - 10.8 x10E3/uL [facility] [...] - 01 Blood 12/21/2024 12:4 8 PM ACCOUNTING AUDITOR 12/21/2024 Narrative [facility] - 12/22/2024 7:09 AM ACCOUNTING AUDITOR Performed at: [address] [id number] [employer]ker: Marco Antonio Paiz PhD, Phone: [phone] us Luca Lott MD LAB BLOOD ORDERABLES Final R esult [facility] - * (ABNORMAL) Basic metabolic panel (12/21/2024 12:48 PM ACCOUNTING AUDITOR) [facility] Glucose 85 70 - 99 mg/dL [...] repeat analysis Blood 12/21/2024 12:4 8 PM ACCOUNTING AUDITOR 12/21/2024 Narrative [facility] - 12/22/2024 2:10 PM ACCOUNTING AUDITOR Performed at: [address] [id number] [employer]: Marco Antonio Paiz PhD, Phone: [phone] Specimen Comment: Called/faxed to [facility] on 12/22/2024 at 13:44 ET Specimen Comment: for tests Creatinine; Calcium us Luca Lott MD LAB BLOOD ORDERABLES Final R esult [facility] - 01 * HLA Antibody Screen by PRA or SAB per Schedule (Class I and Class II) (11/27/2024 10:00 AM ACCOUNTING AUDITOR) Blood 11/27/2024 10:0 0 AM ACCOUNTING AUDITOR Narrative [facility] - ACCOUNTING AUDITOR Sample received in lab. Single Antigen Antibody Screen ordered. us Salina Hector MD LAB BLOOD ORDERABLES Final Resul t [facility] * HLA Antibody Screen - SAB (Class I and Class II) (11/27/2024 10:00 AM ACCOUNTING AUDITOR) Class I Treatment EDTA [facility] Class I [...] Risk DPB1*01:01 [facility] 11/27/2024 10:0 0 AM ACCOUNTING AUDITOR 12/03/2024 1:32 PM ACCOUNTING AUDITOR Narrative [facility] - 12/03/2024 1:32 PM ACCOUNTING AUDITOR Single-antigen HLA antibody screen is performed on serum samples using a method developed and validated by the [facility] HLA laboratory based on an FDA-approved IVD kit (LABScreen Single-Antigen, [employer], [place], [place]). All patient serum samples are pretreated with EDTA before the screen to prevent complement interference. Additional serum treatments, such as adsorption and DTT treatment, may be performed as indicated. Interpretive comments: Low risk: MFI [id number]. Moderate risk: MFI [id number]. Increased risk: MFI >/= 5000. The presence [...] performed at the [facility], [address] [place] [address], 5th floor, [place], [address]. [place] # [id number]. Rosa Millan, Ph.D., Supervisor [employer], HLA Laboratory Wilmer Prescott M.D., Ph.D., Administration Physician, HLA Laboratory Alma Payton, Ph.D., CLIA Administration Physician, [facility] Current methodology and interpretive comments last revised on 11/15/2022. us Salina Hector MD LAB BLOOD ORDERABLES Final Resul t [facility] * (ABNORMAL) eGFR (11/19/2024 6:00 PM ACCOUNTING AUDITOR) eGFR 3(L) >=60 mL/min/1. 73 m2 Comment: [...] last reviewed 2021. Blood 11/19/2024 6:00 PM ACCOUNTING AUDITOR 11/19/2024 6:10 PM ACCOUNTING AUDITOR Luca Lott MD LAB BLOOD ORDERABLES Final R esult [facility] [place] [address] * (ABNORMAL) Differential, auto (11/19/2024 6:00 PM ACCOUNTING AUDITOR) Pathologist [facility] Neutrophil abs 6.5 1.5 - 6.5 K/cumm Imm gran abs 0.0 0.0 - 0.1 K/cumm [facility] Lymphocyte abs 0.5(L) 0.8 - 3.3 K/cumm [facility] Monocyte abs 0.3 0.2 - 0.8 K/cumm [facility] Eosinophil abs 0.1 0.0 - 0.5 K/cumm [facility] Basophil abs 0.0 0.0 - 0.1 K/cumm [facility] Neutrophil pct 87.7 % [facility] Comment: Interpretive Data Percent cell count reference ranges are not reported, since discordance with absolute values may lead to misinterpretation of CBC data. Current Interpretive Data was last revised on 2018. Imm gran pct 0.3 % [facility] Comment: Interpretive Data Percent cell count reference ranges are not reported, since discordance with absolute values may lead to misinterpretation of CBC data. Current Interpretive Data was last revised on 2018. Lymphocyte pct 6.8 % [facility] Comment: Interpretive Data Percent cell count reference ranges are not reported, since discordance with absolute values may lead to misinterpretation of CBC data. Current Interpretive Data was last revised on 2018. Monocyte pct 3.4 % [facility] Comment: Interpretive Data Percent cell count reference ranges are not reported, since discordance with absolute values may lead to misinterpretation of CBC data. Current Interpretive Data was last revised on 2018. Eosinophil pct 1.5 % [facility] Comment: Interpretive Data Percent cell count reference ranges are not reported, since discordance with absolute values may lead to misinterpretation of CBC data. Current Interpretive Data was last revised on 2018. Basophil pct 0.3 % [facility] Comment: Interpretive Data Percent cell count reference ranges are not reported, since discordance with absolute values may lead to misinterpretation of CBC data. Current Interpretive Data was last revised on 2018. Blood 11/19/2024 6:00 PM ACCOUNTING AUDITOR 11/19/2024 6:04 PM ACCOUNTING AUDITOR Luca Lott MD LAB BLOOD ORDERABLES Final R esult [facility] [place] [address] * (ABNORMAL) CBC with auto differential (11/19/2024 6:00 PM ACCOUNTING AUDITOR) WBC 7.4 3.8 - 9.9 K/cumm Hgb 11.6(L) 11.9 - 15.5 g/dL [facility] Hct 36.7 35.6 - 45.5 % [facility] Plt 150 150 - 400 K/cumm [facility] MPV 10.6 9.1 - 12.3 fL [facility] RBC 4.22 3.90 - 5.20 M/cumm [facility] MCV 87.0 81.3 - 96.4 fL [facility] MCH 27.5 27.1 - 33.3 pg [facility] MCHC 31.6(L) 32.3 - 35.7 g/dL [facility] RDW CV 14.6 11.1 - 14.9 % [facility] RDW SD 46.1 35.7 - 48.1 fL [facility] NRBC abs 0.00 0.00 - 0.01 K/cumm [facility] Blood 11/19/2024 6:00 PM ACCOUNTING AUDITOR 11/19/2024 6:04 PM ACCOUNTING AUDITOR us Luca Lott MD LAB BLOOD ORDERABLES Final R esult [facility] Department of Laboratories [place] [address] * (ABNORMAL) Basic metabolic panel (11/19/2024 6:00 PM ACCOUNTING AUDITOR) Sodium 130(L) 135 - 145 mmol/L Potassium, pl 4.3 3.3 - 4.9 mmol/L [facility] Chloride 90(L) 97 - 110 mmol/L [facility] CO2 23 22 - 32 mmol/L [facility] Anion gap 17(H) 2 - 15 mmol/L [facility] BUN 57(H) 6 - 25 mg/dL [facility] Creatinine 13.87(H) 0.60 - 1.10 mg/dL [facility] Glucose 150 70 - 199 mg/dL [facility] Comment: Interpretive Data Fasting glucose >/= 126 [...] Calcium 6.9(L) 8.5 - 10.3 mg/dL [facility] Blood 11/19/2024 6:00 PM ACCOUNTING AUDITOR 11/19/2024 6:04 PM ACCOUNTING AUDITOR Luca Lott MD LAB BLOOD ORDERABLES Final R esult Performing Organization Address [facility] Co de Phone Number [facility] [employer] [place] [address] * (ABNORMAL) POCT Activated clotting time, low range (11/19/2024 4:42 PM ACCOUNTING AUDITOR) ACT 171(H) 123 - 168 sec POC Performer [id number] [facility] POC Device Number [id number] [facility] Blood 11/19/2024 4:42 PM ACCOUNTING AUDITOR 11/19/2024 4:42 PM ACCOUNTING AUDITOR us Luca Lott MD LAB POCT ORDERABLES - DEVICE Final Result Performing Organization Address [facility] de Phone Number [facility] [employer] [place] [address] * (ABNORMAL) POCT Activated clotting time, low range (11/19/2024 3:23 PM ACCOUNTING AUDITOR) ACT 266(H) 123 - 168 sec POC Performer [id number] [facility] POC Device Number [id number] [facility] Blood 11/19/2024 3:23 PM ACCOUNTING AUDITOR 11/19/2024 3:23 PM ACCOUNTING AUDITOR Luca Lott MD LAB POCT ORDERABLES - DEVICE Final Result Performing Organization Address [facility] [place] [address] * LEFT HEART CATHETERIZATION WITH CORONARY ANGIOGRAPHY AND WITH AND WITHOUT LEFT VENTRICULOGRAM (11/19/2024 2:50 PM ACCOUNTING AUDITOR) Anatomical Region Laterality Modality X-Ray Angiograph y Impressions 11/19/2024 4:18 PM ACCOUNTING AUDITOR Very severe stenosis of the vein graft [...] attempt intervention again. I would suggest a [place] 1 0 guiding catheter and consideration for shockwave versus atherectomy. I was present during the entire procedure and personally dictated or confirmed the above report. Luca Lott MD Narrative 11/19/2024 4:18 PM ACCOUNTING AUDITOR Procedure: CORONARY ANGIOGRAM / RIGHT HEART CATHETERIZATION/percutaneous coronary intervention Patient: Ginger Marshall is a 54 y.o. female : 1970 MR number: [id number] Date of Service: 11/19/2024 Health Editor: Luca Lott MD Fellow: Josesito Pabon MD [...] obtained. The patient was brought to the cytogenetics laboratory manager and placed on the table Bilateral [...] coronary artery angiogram performed using a 6 Lebanese JR4 catheter Right heart catheterization preformed with VANI Sheridan Percutaneous coronary intervention performed on the Proximal saphenous vein graft to the LAD. This was an ACC/AHA Type C. Initial Lesion Length 12mm and final lesion Length 15mm. Initial KAROLINA Flow 3 with visible thrombus present Final [place]AR[place]INA Flow 3. Equipment used: 6 3DRC, BeatSwitch IVUS Catheter, [employer]anda [employer] blue wire, 0.9 mm laser atherectomy catheter, 2 5 x 15 NC emerge balloon, a 3 0 x 12 mm AngioSculpt balloon, 4 0 by 15 NC emerge balloon, 4 0 x 15 resolute drug-eluting stent, 4 5 x 12 mm NC emerge balloon Attempted intervention on the ostial left main equipment used was a 6 Lebanese JL 3.5 guiding catheter, she on black [...] than 300. We took up a 6 Lebanese 3D RC that sat reasonably well in [...] or perforation. We then took our 6 Lebanese JL 3.5 guiding catheter attempted to intubate [...] right femoral artery and placed a 6 Lebanese Angio-Seal. Manual compression was performed on the venous sheath. COMPLICATIONS: None DIAGNOSTIC Luca Lott MD CV CARDIAC CATH PROCEDURES F inal Result * (ABNORMAL) POCT Activated clotting time, low range (11/19/2024 2:49 PM ACCOUNTING AUDITOR) ACT 260(H) 123 - 168 sec POC Performer [id number] [facility] POC Device Number [id number] [facility] Blood 11/19/2024 2:49 PM ACCOUNTING AUDITOR 11/19/2024 2:49 PM ACCOUNTING AUDITOR Luca Lott MD LAB POCT ORDERABLES - DEVICE Final Result Performing Organization Address [facility] Co de Phone Number [facility] [place] [address] * (ABNORMAL) POCT Activated clotting time, low range (11/19/2024 2:30 PM ACCOUNTING AUDITOR) ACT 385(H) 123 - 168 sec POC Performer [id number] [facility] POC Device Number [id number] [facility] Blood 11/19/2024 2:30 PM ACCOUNTING AUDITOR 11/19/2024 2:30 PM ACCOUNTING AUDITOR Luca Lott MD LAB POCT ORDERABLES - DEVICE Final Result Performing Organization Address [facility]/ZIP Co de Phone Number [facility] [employer] [place] [address] * (ABNORMAL) POCT Activated clotting time, low range (11/19/2024 2:01 PM ACCOUNTING AUDITOR) ACT >400(H) 123 - 168 sec POC Performer [id number] [facility] POC Device Number [id number] [facility] Blood 11/19/2024 2:01 PM ACCOUNTING AUDITOR 11/19/2024 2:01 PM ACCOUNTING AUDITOR Luca Lott MD LAB POCT ORDERABLES - DEVICE Final Result Performing Organization Address [facility] de Phone Number [facility] [employer] [place] [address] * Type and screen (11/19/2024 2:01 PM ACCOUNTING AUDITOR) ABO Rh B Positive Jorge A, indirect Negative [facility] Blood 11/19/2024 2:01 PM ACCOUNTING AUDITOR 11/19/2024 2:14 PM ACCOUNTING AUDITOR Narrative [facility] - 11/19/2024 3:08 PM ACCOUNTING AUDITOR Has the patient had Daratumumab or Isatuximab in the past 6 months?->Unknown Luca Lott MD LAB BLOOD BANK TEST ORDERABL ES Final Result Performing Organization Address [facility] de Phone Number [facility] [employer] [place] [address] * (ABNORMAL) POCT Activated clotting time, low range (11/19/2024 1:53 PM ACCOUNTING AUDITOR) ACT >400(H) 123 - 168 sec POC Performer [id number] [facility] POC Device Number [id number] [facility] Blood 11/19/2024 1:53 PM ACCOUNTING AUDITOR 11/19/2024 1:53 PM ACCOUNTING AUDITOR Luca Lott MD LAB POCT ORDERABLES - DEVICE Final Result Performing Organization Address [facility] de Phone Number [facility] [employer] [place] [address] * (ABNORMAL) POCT Activated clotting time, low range (11/19/2024 1:49 PM ACCOUNTING AUDITOR) ACT 78(L) 123 - 168 sec POC Performer [id number] [facility] POC Device Number [id number] [facility] Blood 11/19/2024 1:49 PM ACCOUNTING AUDITOR 11/19/2024 1:49 PM ACCOUNTING AUDITOR us Luca Lott MD LAB POCT ORDERABLES - DEVICE Final Result Performing Organization Address City/[facility] Co de Phone Number [facility] [place] [address] * (ABNORMAL) POCT oxyhemoglobin (11/19/2024 1:27 PM ACCOUNTING AUDITOR) FARROWING MANAGER Oxyhemoglobin 91.6 >=65.0 % FARROWING MANAGER Hemoglobin 11.2(L) 11.9 - 15.5 g/dL [facility] FARROWING MANAGER O2 content 14.3(L) 15.0 - 22.0 Vol % [facility] Anatomic Site aPOC Aorta [facility] Blood 11/19/2024 1:27 PM ACCOUNTING AUDITOR 11/19/2024 1:27 PM ACCOUNTING AUDITOR us Luca Lott MD LAB POCT ORDERABLES - DEVICE Final Result Performing Organization Address [facility] de Phone Number [facility] [place] [address] * (ABNORMAL) POCT oxyhemoglobin (11/19/2024 1:26 PM ACCOUNTING AUDITOR) FARROWING MANAGER Oxyhemoglobin 56.2(L) >=65.0 % FARROWING MANAGER Hemoglobin 11.0(L) 11.9 - 15.5 g/dL [facility] FARROWING MANAGER O2 content 8.6(L) 15.0 - 22.0 Vol % [facility] Anatomic Site aPOC Pulm Artery [facility] Blood 11/19/2024 1:26 PM ACCOUNTING AUDITOR 11/19/2024 1:26 PM ACCOUNTING AUDITOR Luca Lott MD LAB POCT ORDERABLES - DEVICE Final Result Performing Organization Address City/[facility] Co de Phone Number [facility] [place] [address] * (ABNORMAL) POCT oxyhemoglobin (11/19/2024 1:26 PM ACCOUNTING AUDITOR) [facility] FARROWING MANAGER Oxyhemoglobin 56.6(L) >=65.0 % FARROWING MANAGER Hemoglobin 10.9(L) 11.9 - 15.5 g/dL [facility] FARROWING MANAGER O2 content 8.6(L) 15.0 - 22.0 Vol % [facility] Anatomic Site aPOC Pulm Artery [facility] Blood 11/19/2024 1:26 PM ACCOUNTING AUDITOR 11/19/2024 1:26 PM ACCOUNTING AUDITOR us Luca Lott MD LAB POCT ORDERABLES - DEVICE Final Result Performing Organization Address [facility] [place] [place] [address] * POC Blood Gas and Chemistries, Arterial - (11/19/2024 11:45 AM ACCOUNTING AUDITOR) [facility] K POC 3.7 3.3 - 4.9 mmol/L Comment: Interpretive Data Not all point of care methods assess for hemolysis. Confirm with instrument and retest K+ if not consistent with clinical signs and symptoms. Current Interpretive Data was last revised on 2024. Blood 11/19/2024 11:4 5 AM ACCOUNTING AUDITOR 11/19/2024 11:45 AM ACCOUNTING AUDITOR us Luca Lott MD LAB POCT ORDERABLES - DEVICE Final Result Performing Organization Address City/[facility] [place] [address] * ECG 12 lead (11/19/2024 11:16 AM ACCOUNTING AUDITOR) [facility] Ventricular Rate EKG/Min 90 BPM [facility] QRS-Interval (MSEC) 84 ms [facility] QT-Interval (MSEC) 404 ms [facility] QTc [address] [facility] R [place] [address] [facility] T [place] [address] [facility] Diagnosis Atrial fibrillation Electronic atrial pacemaker Minimal voltage criteria for LVH, may be normal variant ( [place] product ) Septal infarct , age undetermined T wave abnormality, consider lateral ischemia Abnormal ECG Confirmed by HARJINDER HANDY M.D ([id number]) on 11/19/2024 3:59:[address] [facility] 11/19/2024 11:1 6 AM ACCOUNTING AUDITOR 11/19/2024 3:59 PM ACCOUNTING AUDITOR Result [facility] Luca Lott MD ECG ORDERABLES Final Result [facility] * DEVICE CHECK - IN OFFICE (11/18/2024 11:20 AM ACCOUNTING AUDITOR) Anatomical Region Laterality Modality Other 11/18/2024 2:00 AM ACCOUNTING AUDITOR Narrative 12/24/2024 9:17 PM ACCOUNTING AUDITOR Interpretation Summary: Battery and Leads (BL) Normal parameters noted on battery and lead(s) Presenting Rhythm ([place]) Atrial Sensing-Ventricular Sensing (-VS) Arrhythmic events (AE) Atrial fibrillation and/or flutter with controlled ventricular rate Nonsustained VT event(s) identified Anticoagulation (AC) Patient on anticoagulant therapy --- Plavix Procedure Note Lane Ramos MD PhD - 12/24/2024 Interpretation Summary: Battery and Leads (BL) Normal parameters noted on battery and lead(s) Presenting Rhythm ([place]) Atrial Sensing-Ventricular Sensing (-VS) Arrhythmic events (AE) Atrial fibrillation and/or flutter with controlled ventricular rate Nonsustained VT event(s) identified Anticoagulation (AC) Patient on anticoagulant therapy --- Plavix Lane Ramos MD PhD CV CARDIAC SERVICES PROCEDURES Final Result * SCAN - LABS (11/17/2024) us Provider Scanning Final Result from Last 3 Months Insurance [facility] CHOICE PLUS MEDICARE [facility] CHOICE PLUS MEDICARE MEDICARE [facility] CHOICE PLUS MEDICARE TRANSPLANT [facility] Advance Directives For more information, please contact: [phone] * Full Code (Latest Code Status on [...] 5:04 PM 08/03/2022 10:09 PM Care Teams Dyed Raw Stock Blower Feeder Relationship Specialty Start Date End Date Pal Downey DO PCP - General Internal Medicine 01/25/21 Quinton Rowan MD Referring Physician Cardiology 01/09/19 Tami Flores, TONO [address] [place], [place] [id number] Registered Nurse Child Support Specialist 01/25/21 Cricket Escalante MD [address] [place] [address] Referring Physician Nephrology 03/24/21 Gael Sprague MD PhD [address] [place] [address] Fellow Endocrinology Diabetes & Metabolism 03/24/21 Brad Turner MD [address] [address] Consulting Physician Obstetrics and Gynecology 03/24/21 Margarita Montoya MD [address] [id number] Consulting Physician Trauma Surgery 12/27/21 Luca Lott MD [address] [id number] Consulting Physician Cardiology 08/03/22 Pb Galloway MD [address] [facility] [id number] [place] [address] Cardiothoracic Surgery 05/25/24 Felipe Gerber MD [address] [facility] [id number] [place] [address] Consulting Physician Cardiology 05/25/24
--- OUTSIDE RECORDS SUMMARY | 2025-02-15 14:12 | XMS_ITS | Encounter Summary ---
Author Organization [facility] [employer] [facility] Address [address] [place] [address] Phone Care Team Providers Care Colors Custodian Name Role Phone Quinton Rowan MD Unavailable Pal Downey DO Primary Care Provider [phone] Tami Flores RN Unavailable Cricket Escalante MD Unavailable Gael Sprague MD PhD Unavailable Brad Turner MD Unavailable [phone] Margarita Montoya MD Unavailable Luca Lott MD Unavailable Pb Galloway MD Unavailable Felipe Gerber MD Unavailable [phone] Encounter Details Date Type Department Care [...] on file Legal Sex Female 4:06 AM COAL GRADER Gender Identity Female 01/16/2024 11:18 AM CDT [...] documented as of this encounter Care Teams Colors Custodian Relationship Specialty Start Date End Date Pal Downey DO PCP - General Internal Medicine 01/25/21 Quinton Rowan MD Referring Physician Cardiology 01/09/19 Tami Flores RN [address] [address] Registered Nurse Insulation Supervisor 01/25/21 Cricket Escalante MD [address] [address] Referring Physician Nephrology 03/24/21 Gael Sprague MD PhD [address] [address] Fellow Endocrinology Diabetes & Metabolism 03/24/21 Brad Turner MD [address] [address] Consulting Physician Obstetrics and Gynecology 03/24/21 Margarita Montoya MD [address] [phone] Consulting Physician Trauma Surgery 12/27/21 Luca Lott MD [address] [address] Consulting Physician Cardiology 08/03/22 Pb Galloway MD [address] [facility] [id number] [place] [address] Cardiothoracic Surgery 05/25/24 Felipe Gerber MD [address] [facility] [id number] [place] [address] Consulting Physician Cardiology 05/25/24 documented as of this encounter
--- OUTSIDE RECORDS SUMMARY | 2025-02-15 14:12 | XMS_ITS | Clinical Summary ---
Author Organization [facility] [employer] Address [address] [place] [address] Care Team Providers Care Director Of Physician Practices Name Role Phone Danielle Hawkins Primary Care Provider Unavailabl e Source Comments [facility] [employer],non-owned Affiliates and Associated Physician Practices is amultiple site organization consisting of ambulatory clinics and hospital sitesin [place], [place], [place] and [place]. This disclosure is being madepursuant to the Care Everywhere program and may not contain all information available regarding this patient. Last updated 18.[facility] [employer] Allergies Active Allergy Reactions Criticality Noted Date Comments Ampicillin Anaphylaxis High 04/29/2015 Ciprofloxacin Nausea Low 04/29/2015 Penicillamine Anaphylaxis High 04/29/2015 Medications * Be aware that medications may not be up to date on this document. Alwaysverify current medications with the patient. raNITIdine (ZANTAC) 150 MG tablet Take by [...] drink = 0.6 oz pur e alcohol) Comments Unknown Sex and Gender Information Value Date Recorded Sex Assigned at Not on file Legal Sex Female 5:36 PM OCCUPATIONAL SAFETY SPECIALIST Gender Identity Not on file Sexual Orientation Not on file Last Filed Vital Signs Vital Sign Reading Time Taken Comments Blood Pressure 145/91 09/06/2016 9:59 AM OCCUPATIONAL SAFETY SPECIALIST Pulse 79 09/06/2016 9:59 AM OCCUPATIONAL SAFETY SPECIALIST Temperature 36.4 C (97.5 F) 12/23/2015 3:20 PM OCCUPATIONAL SAFETY SPECIALIST Respiratory Rate 12 09/06/2016 9:59 AM OCCUPATIONAL SAFETY SPECIALIST Oxygen Saturation 100% 12/23/2015 3:20 PM OCCUPATIONAL SAFETY SPECIALIST Inhaled Oxygen Concentration - - Weight 60.8 kg (134 lb) 09/06/2016 9:59 AM OCCUPATIONAL SAFETY SPECIALIST Height 162.6 cm (5' 4 ) 09/06/2016 9:59 AM OCCUPATIONAL SAFETY SPECIALIST Body Mass Index 23 09/06/2016 9:59 AM OCCUPATIONAL SAFETY SPECIALIST Plan of Treatment Health Maintenance Due Date [...] VACCINE (1 of 2) 2021 COVID-19 VACCINE ( - 2023-2 5 season) 2024 DEPRESSION SCREENING 10/21/2024 INFLUENZA VACCINE (Season Ended) 2025 HIB VACCINE Aged Out No longer eligi [...] on patient's age to complete this topic Insurance MEDICAID - OUT OF STATE [address] MEDICARE SELF PAY NO INSURANCE Member Subscriber Plan / Payer (Ef fective for All Dates) Name:Ginger Copeland Member ID:Not on file Relation to Subscriber:Not on file Name:GINGER COPELAND Subscriber ID:Not on file (Home) Address: [address] [place] [id number] Payer ID:Not on file Group ID:Not on file Type:Self Pay Address: [facility] [address] Care Teams Director Of Physician Practices Relationship Specialty Start Date End Date Danielle Hawkins Update Information PCP - General 04/29/15
== END 2025-02-15 12:37 | disposition home or self-care (01) ==
PROVIDERS: PCP Internal Medicine; Visit Provider Urology
DX: J98.11 Atelectasis (principal); J18.9 Pneumonia, unspecified organism; M40.204 Unspecified kyphosis, thoracic region
CPT/HCPCS: 71046

== ENCOUNTER 2025-04-22 11:58 | Observation (INO) | payer MEDICARE, OTHER, SELFPAY ==
[2025-04-22] VITALS (23 sets, daily range): BP systolic 71–110; BP diastolic 61–88; PULSE 68–135; RESP 13–23; TEMP 36.6; O2SAT 18–100
--- NOTE | ~2025-04-22 | XR_ITS ---
CHEST RADIOGRAPH CLINICAL HISTORY: shortness of breath, palpitations . COMPARISON: 02/15/2025 TECHNIQUE: Single portable view of the chest. FINDINGS Sternal wires and mediastinal clips are identified, the wires are midline and intact. Prosthetic valve in the aortic position. The right mid to upper lung is partially obscured due to pacemaker generator. Wires project over the right atrium and right ventricle. The remainder of the cardiomediastinal silhouette is otherwise unremarkable. Redemonstration of a small left-sided pleural effusion, improved from 02/15/2025. S shaped curvature of the thoracolumbar spine is present. Increased opacification of the left upper lobe, in a wedge shaped pattern, an interval change from pr evious examination. The remainder of the lungs are clear. IMPRESSION: Small left-sided pleural effusion, improved from previous examination. Wedge shaped opacification of the left upper lobe, an interval change from prior. The remainder of the lungs are clear. Reviewed, dictated and finalized at location A. IMPRESSION: Small left-sided pleural effusion, improved from previous examination. Wedge shaped opacification of the left upper lobe, an interval change from prio r. The remainder of the lungs are clear.
--- NOTE | 2025-04-22 12:01 | ECG_ITS ---
Test Date: 2025-04-22 12:11:28 Measurements Intervals [place] Rate: 75 P: 0 WI: 0 QRS: -20 QRSD: 96 T: 132 QT: 378 QTc: 424 Interpretive Statements NORMAL SINUS RHYTHM MINIMAL VOLTAGE CRITERIA FOR LVH, CONSIDER NORMAL VARIANT [MEETS CRITERIA IN ONE OF: R(aVL), S(V1), R(V5), R(V5/V6)+S(V1)] SEPTAL MYOCARDIAL INFARCTION , OF INDETERMINATE AGE [40+ ms Q WAVE IN V1/V2] MODERATE T-WAVE ABNORMALITY, CONSIDER LATERAL ISCHEMIA [-0.1+ mV T-WAVE IN I/aVL/V5/V6] No previous ECG available for comparison Electronically Signed On 04-22-2025 16:51:18 CDT by Shelby Carrera
--- OUTSIDE RECORDS SUMMARY | 2025-04-22 12:01 | XMS_ITS | Clinical Summary ---
Author Organization [facility] Address [facility] [place] [address] Care Team Providers Care Support Staff Name Role Phone Unavailable Primary Care Provider [...]
--- OUTSIDE RECORDS SUMMARY | 2025-04-22 12:02 | XMS_ITS | Clinical Summary ---
Author Organization [facility] Address [address] [place] [address] Care Team Providers Care Fire Extinguisher Technician Name Role Phone Quinton Rowan MD Unavailable Pal Downey DO Primary Care Provider [phone] Tami Flores RN Unavailable Cricket Escalante MD Unavailable Gael Sprague MD PhD Unavailable Brad Turner MD Unavailable Margarita Montoya MD Unavailable Luca Lott MD Unavailable Pb Galloway MD Unavailable Felipe Gerber MD Unavailable [phone] Allergies Active Allergy Reactions Criticality Noted [...] Reaction: PT. STATES SHE STOPS BREATHING Penicillins Anaphylaxis,Rash,Un known High 04/29/2015 Aapothz-Kze-Ltv Reductase Inhibitors Muscle pain Medium 02/20/2025 Trialed atorvastatin, rosuvastatin Tree Nuts Vomiting Low 08/21/2023 Medications VENTOLIN HFA 90 mcg/actuation inhaler Inhale 2 puffs every 4 (four) hours as needed for wheezing or shortness of breath 3 018 Active multivit-min/ferr ous fumarate (MULTI VITAMIN ORAL) Take 1 tablet by mouth every morning Active gentamicin (GARAMYCIN) 0.1 % cream Apply 1 Application topically daily PD catheter access site 022 Active loratadine (CLARITIN) 10 mg tablet Take 1 tablet (10 mg total) by mouth daily Active levothyroxine (SYNTHROID) 137 mcg tablet Take 1 tablet (137 mcg total) by mouth daily 023 Active acetaminophen (TYLENOL) 325 mg tablet Take 2 tablets (650 mg total) by mouth every 4 (four) hours as needed for pain 024 Active ondansetron ODT (ZOFRAN-ODT) 4 mg disintegrating tablet Take 1 tablet (4 mg total) by mouth every 8 (eight) hours as needed for nausea or vomiting 20 tablet 1 024 Active gabapentin (NEURONTIN) 100 mg capsule Take 1 capsule (100 mg total) by mouth once a week Fridays 024 Active nitroglycerin (NITROSTAT) 0.[address] 1 tablet (0.4 mg total) under the tongue every 5 (five) minutes as needed for chest pain May repeat dose q 5 min, up to 3 doses total 30 tablet 025 Active ergocalciferol (VITAMIN D) 50,000 unit capsule Take 1 capsule (50,000 Units total) by mouth once a week sundays 025 Active ferric citrate (Auryxia) 210 mg iron tablet Take 1 tablet (210 mg total) by mouth 2 (two) times a day with meals Active aspirin 81 mg enteric coated tablet Take 1 tablet (81 mg total) by mouth daily 30 tablet 11 025 2025 Active clopidogreL (PLAVIX) 75 mg tablet TAKE 1 TABLET BY MOUTH EVERY DAY 90 tablet 1 Active azithromycin (ZITHROMAX) 500 mg tablet Take 1 tablet (500 mg total) by mouth once as needed (Prior to dental appts) Active vitamin B complex with vitamin C tablet Take 1 tablet by mouth daily Active calcitRIOL (ROCALTROL) 0.25 mcg capsule Take 1 capsule (0.25 mcg total) by mouth daily Sundays Active calcium carbonate (OS-MEENA) 1,250 mg (500 mg elemental) tablet Take 1 tablet (1,250 mg total) by mouth daily 30 tablet Active metoprolol XL (TOPROL-XL) 25 mg extended release tablet Take 0.5 tablets (12.5 mg total) by mouth daily 45 tablet 3 Active evolocumab (REPATHA) syringe syringe Inject 1 mL (140 mg total) under the skin every 14 (fourteen) days 2 mL 3 Active ezetimibe (ZETIA) 10 mg tablet Take 1 tablet (10 mg total) by mouth daily 30 tablet 025 2024 Discontinued(T herapy completed) midodrine (PROAMATINE) 5 mg tabletIndications :Symptomatic Orthostatic Hypotension Take 1 tablet (5 mg total) by mouth 3 (three) times a day before meals 90 tablet 025 2024 Discontinued(T herapy completed) metoprolol XL (TOPROL-XL) 25 mg extended release tablet Take 0.5 tablets (12.5 mg total) by mouth daily 15 tablet 025 2024 Discontinued evolocumab (REPATHA) syringe syringe Inject 1 mL (140 mg total) under the skin every 14 (fourteen) days 2 mL 025 2024 Discontinued(R eorder) Active Problems Problem Noted Date Diagnosed Date Chest pain, unspecified type 02/20/2025 Acute coronary syndrome 02/20/2025 Nonrheumatic mitral valve stenosis 02/05/2025 Assessment & [...] (02/01/2022): Added automatically from request for surgery [id number] Assessment & Plan (02/05/2025 3:15 PM CDT): Undergoing pre transplant evaluation. We will review with Dr. Lott regarding possible candidacy for transplant list given recent interventions. Continued to DAPT Disorder of peritoneal dialysis catheter 022 Overview (12/22/2021): Added automatically from request for surgery [id number] Chronic kidney disease, stage V 10/31/2021 Overview (08/21/2023): Added automatically from request for surgery [id number] Sick sinus syndrome 11/02/2020 Diastolic heart failure [...] Assessment & Plan (02/11/2019 6:16 PM CDT): LHC with 95% LAD lesion, had some RV dysfunction during AV repair and found to have RCA occlusion following LAD bypass - s/p IABP placement - CABG to LAD and LCA - on Epi and Milrinone of inotropy Assessment & Plan (02/08/2019 5:38 PM CDT): -Patient w/ chest pain/SOB along w/ significant troponin elevation -Plan for [facility] w/ possible PCI tomorrow pending results -heparin, [...] (02/09/2019): Added automatically from request for surgery [id number] Assessment & Plan (05/17/2019 9:19 AM CDT): [...] (02/10/2019): Added automatically from request for surgery Assessment & Plan (02/05/2025 3:15 PM CDT): [...] currently stable Daily BMPs, while inpatient Home director clinical pharmacology is Dr. Escalante Continue lasix 40 mg [...] kidney disease, baseline Cr 2.4-2.6. F/b OSH director clinical pharmacology. Apparently discussions for potential need for renal txp being discussed. - Cr at baseline on adm - avoid nephrotoxins, renally dose meds - continue calcitriol 0.5 mcg/day - Cr 2.75, received pre-cath hydration, stable 2.7 Headache 05/02/2016 Moderate COPD (chronic obstr uctive pulmonary disease) ([facility]) 11/02/2015 Assessment & Plan (08/02/2022 [...] AM CDT): Alexis TAVR 05/21 Followed by [facility], Dr. Lott. CT TAVR [...] a [facility] Assessment & Plan (05/17/2019 [...] AV. Referred to valve team by primary furnace firer Dr. Rowan. Seen 02/02 by valve team [...] around 2.4 Dr Escalante is her home director clinical pharmacology Assessment & Plan (02/23/2019 12:20 PM CDT): Pt above POW by 2 kg. Lasix on hold due to elevation in Creatinine Baseline creat is around 2.4 Dr Escalante is her home director clinical pharmacology Agitation requiring sedation protocol 02/14/2019 02/23/2019 Acute [...] she had reactions to (?). Per OSH director clinical pharmacology's note in Care Everywhere, pt tried metoprolol [...] Encounters Date Type Department Care Team Description 04/20/2025 2:00 PM CDT Ancillary Procedure [facility] [address] [place] [address] [address] [place] [address] Palpitations 04/20/2025 10:00 AM CDT - 04/20/2025 11:59 PM CDT Hospital Encounter [facility] [address] [place] [address] ESRD (end stage renal disease) (HCC) Discharge Disposition: Discharge to home or self care 04/20/2025 Orders Only [facility] Cardiology [address] [place] [address] Medical Office Building [address] [place] [address] Luca Lott MD Palpitations (Primary Dx) 04/07/2025 11:30 AM CDT Office Visit [facility] Cardiology [address] [facility] Medical Office Building [address] [place] [address] Luca Lott MD Nonrheumatic aortic valve stenosis (Primary Dx); Coronary artery disease involving assiniboine and sioux coronary artery of assiniboine and sioux heart without angina pectoris 04/07/2025 Telephone [facility] and [facility] [address] Mailstop [id number] [place] [address] Tiarra Mcdermott 04/07/2025 Telephone [facility] [address] Mailstop 31-09-354 [place] [address] Tami Flores, TONO 03/27/2025 Orders Only [facility] Cardiology [address] [facility] 8th [place] [address] [place] [address] Claire Mcnally RN 03/25/2025 10:00 AM CDT - 03/25/2025 11:59 PM CDT Hospital Encounter [address] [address] ESRD (end stage renal disease) (HCC) Discharge Disposition: Discharge to home or self care 03/02/2025 SHOP/CHAP Initial Outreach [facility] OP CASE MANAGEMENT [address] [place] [address] Claire Rosales LCSW 03/01/2025 10:00 AM CDT - 03/01/2025 11:59 PM CDT Hospital Encounter [address] [address] ESRD (end stage renal disease) (HCC) Discharge Disposition: Discharge to home or self care 02/26/2025 SHOP/CHAP Initial Outreach [facility] OP CASE MANAGEMENT [address] [place] [id number] Claire Rosales LCSW 02/25/2025 SHOP/CHAP Initial Outreach [facility] OP CASE MANAGEMENT [address] [place] [id number] Claire Rosales LCSW 02/25/2025 SHOP/CHAP Initial Eligibility Review [facility] OP CASE MANAGEMENT [address] [place] [address] Claire Rosales LCSW 02/23/2025 11:33 AM CDT - 02/23/2025 12:53 PM CDT Surgery [facility] [address] [place] [address] Luca Lott MD LEFT HEART CATHETERIZATION WITH CORONARY ANGIOGRAPHY AND WITH OR WITHOUT LEFT VENTRICULOGRAM [id number] 02/20/2025 8:07 PM CDT - 02/24/2025 3:54 PM CDT Hospital Encounter [address] [address] Jaimie Haddad MD Patel, Namrata Nikhil, MD Acute coronary syndrome (HCC) (Primary Dx); Chest pain [R07.9]; Coronary artery disease involving assiniboine and sioux coronary artery of assiniboine and sioux heart without angina pectoris [I25.10] Discharge Disposition: Discharge to home or self care 02/20/2025 10:41 AM CDT - 02/20/2025 7:48 [place] [address] Khanh Shankar DO Potluri, Sobhana Krishna, MD Chest pain, unspecified type (Primary Dx); ESRD (end stage renal disease) (HCC) Discharge Disposition: Discharge to a critical access hospital 02/09/2025 Telephone [facility] Cardiology [address] [place] [address] 8th [place] [address] [place] [address] Luca Lott MD 02/05/2025 3:00 PM CDT Office Visit [facility] Cardiology [address] [facility] Medical Office Building [address] [place] [address] Miranda Joy NP Coronary artery disease involving assiniboine and sioux coronary artery of assiniboine and sioux heart without angina pectoris (Primary Dx); S/P TAVR (transcatheter aortic valve replacement); Nonrheumatic mitral valve stenosis; Chronic diastolic heart failure (HCC); Pre-transplant evaluation for end stage renal disease 02/05/2025 Telephone [facility] Cardiology [address] [facility] Medical Office Building [address] [place] [phone] Luca Lott MD inquiry from POST OFFICE MANAGER re: txp 01/28/2025 10:35 AM CDT - 01/28/2025 11:59 PM CDT Hospital Encounter [address] [address] Discharge Disposition: Discharge to home or self care 01/28/2025 10:02 AM CDT - 01/28/2025 11:59 PM CDT Hospital Encounter [facility] [address] [place] [address] ESRD (end stage renal disease) (HCC) Discharge Disposition: Discharge to home or self care 01/28/2025 10:02 AM CDT - 01/28/2025 11:59 PM CDT Hospital Encounter [facility] [address] [place] [address] ESRD (end stage renal disease) (HCC) Discharge Disposition: Discharge to home or self care 01/28/2025 10:02 AM CDT - 01/28/2025 11:59 PM CDT Hospital Encounter [facility] [address] [place] [address] ESRD (end stage renal disease) (HCC) Discharge Disposition: Discharge to home or self care 01/28/2025 9:50 AM CDT Lab [facility] [address] [place] [address] 01/28/2025 9:35 AM CDT Lab [facility] [address] [place] [address] Polycystic liver disease; ESRD (end stage renal disease) (HCC) 01/28/2025 8:00 AM CDT Office Visit [facility] Gastroenterology [address] [facility] 12th [place] [address] Abigail Vides MD Polycystic liver disease (Primary Dx) 01/22/2025 10:00 AM CDT - 01/22/2025 11:59 PM CDT Hospital Encounter [facility] [address] [place] [address] Discharge Disposition: Discharge to home or self care 01/22/2025 Orders Only [facility] Nephrology [address] 2nd [address] [place] [address] Salina Hector MD from Last 3 Months Immunizations Immunization Administration [...] Procedure: PCI KARINA MAJOR CORONARY C9600 - [id number]; Surgeon: Luca Lott MD; Location: [facility] CARDIAC AZURE PRINCIPAL SOLUTION SPECIALIST; Service: Cardiovascular; Laterality: N/A; Medical devices from this surgery are in the Medical Devices section. CARDIAC CATHETERIZATION 02/23/2025 N/A Procedure: LEFT HEART CATHETERIZATION WITH CORONARY ANGIOGRAPHY AND WITH OR WITHOUT LEFT VENTRICULOGRAM [id number]; Surgeon: Luca Lott MD; Location: [facility] CARDIAC AZURE PRINCIPAL SOLUTION SPECIALIST; Service: Cardiovascular; Laterality: N/A; Medical devices from this surgery are in the Medical Devices section. Medical History Medical History Date Comments Hypertension Essential Thyroid mass s/p resection Coronary artery disease invo lving assiniboine and sioux heart 02/07/2019 Added automatically from req uest for surgery [id number] (LAD, LCA) Volume overload 02/14/2019 Leukocytosis 02/21/2019 Pleural effusion 02/2019 Status post lef t thoracostomy 02/27/2019 Hypothyroidism 01/2019 Postoperative Anemia Personal history of other me dical treatment History of combined restrictive/obstructive lung disease, A-fib (HCC) 01/2019 Postoperative pa roxysmal A. Fib Polycystic kidney disease CKD (chronic kidney disease) stage 4, GFR 15-29 ml/min (HCC) Polycystic kidney disease Neuroblastoma (HCC) of chest, ag e 2, s/p left thoracotomy and radiation Obstructive lung disease (ge neralized) (HCC) Ganglioneuroblastoma (HCC) Spinal stenosis Polycystic kidney disease ESRD on peritoneal dialysis ([facility]) Heart murmur DC (myocardial infarction) (HCC) CHF (congestive heart failure) ([facility]) Nausea 05/10/2019 Aortic valve insufficiency, [...] you have a drink containing alcohol? Never 02/23/2025 Q2: How many drinks containi ng alcohol do you have on a typical day when you are drinking? Patient does not drink Q3: How often do you have si x or more drinks on one occasion? Never 02/23/2025 Personal Safety Answer Date Recorded Have you ever been in or are you currently in a harmful physical or emotional relationship or is someone making you feel afraid or unsafe? 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 Gender Identity Female 01/16/2024 11:18 AM CDT Sexual Orientation Straight 01/16/2024 11 :18 AM CDT Obstetrics History Comments Status Post Hysterectomy Last Filed Vital Signs Vital Sign Reading Time Taken Comments Blood Pressure 100/72 04/07/2025 11:23 AM CDT Pulse 60 02/24/2025 11:16 AM CDT Temperature 36.7 C (98.1 F) 02/24/2025 11:16 AM CDT Respiratory Rate 18 02/24/2025 11:16 AM CDT Oxygen Saturation 98% 02/24/2025 11:16 AM CDT Inhaled Oxygen Concentration - - Weight 56.4 kg (124 lb 6.4 oz) 04/07/2025 11:23 AM CDT Height 162.6 cm (5' 4) 04/07/2025 11:23 AM CDT Body Mass Index 21.35 04/07/2025 11:23 AM CDT Plan of Treatment Scheduled Procedures [...] (1 of 2) 2021 Influenza Vaccine (#1) 2025 10/21/2017 Hepatitis C Screening Completed 01/28/2025 , 03/06/2023, 05/04/2021 Medical Devices Implanted Type Area Playground Attendant Device Identifier Shelf Expiration Date Model / Serial / Lot Angio-Seal Evolution 6fr Vascular Closure [id number] - [id number] - [id number] Implanted:Qty: 1 on 03/09/2022 by Luca Lott MD at [facility] Collagen Right: Femoral Ter[employer]o [employer] Pam 09/19/2022 [id number] / [id number] / [id number] [employer] Pam Angio-Seal Vip 6fr Closere Device 114279 - [id number] - [id number] Implanted:Qty: 1 on 07/24/2022 by Luca Lott MD at [facility] Collagen [employer] Pam 03/20/2023 [id number] / [id number] / [id number] [employer] Pam Angio-Seal Vip 6fr Closere Device 931105 - [id number] - [id number] Implanted:Qty: 1 on 05/21/2024 at [facility] Right: Common Femoral Artery [employer] Pam 01/09/2025 [id number] / [id number] / [id number] Terumo Medical Pma Angio-Seal Vip Bondek-Plus 8fr .038in 70cm Hemostatic Latex Free 284704 - [id number] - [id number] Implanted:Qty: 1 on 05/21/2024 by Felipe Gerber MD at [facility] Right: Common Femoral Artery [employer] Pam 01/06/2025 877360 / [id number] / [id number] [employer] Pam Angio-Seal Vip 6fr Closere Device 014613 - [id number] - [id number] Implanted:Qty: 1 on 02/23/2025 by Luca Lott MD at [facility] Collagen [employer] Pam 06/15/2025 134147 / [id number] / [id number] Medtronic Cardiac Rhythm Mgmt 5076-52 Capsurefix Novus 6.2fr 2mm 52cm Bipolar Screw In Implantable Latex Free - [id number] - [id number] Implanted:Qty: 1 on 05/15/2019 by Lane Ramos MD PhD at [facility] Lead Medtronic Inc 03/11/2021 5076-52 / [id number] / Medtronic Cardiac Rhythm Mgmt 5076-45 Capsurefix Novus 6.2fr 2mm 45cm Bipolar Screw In Implantable - [id number] - [id number] Implanted:Qty: 1 on 05/15/2019 by Lane Ramos MD PhD at [facility] Lead Medtronic Inc 03/30/2021 5076-45 / [id number] / imageloop [id number] Linear 7.5fr 6in Insertion Kit Upper Inspector Introducer Sheath - [id number] Implanted:Qty: 1 on 02/10/2019 by Luca Lott MD at [facility] Other - see comments imageloop [id number] -[id number] 1 / / Description:IABP Medtronic Inc [id number] Davilla Curl Cath Beta-Cap Holden 15fr 57cm 2 Cuff Clamp Adapter - [id number] - [id number] Implanted:Qty: 1 on 11/21/2021 by Carlos Kamara MD at [facility] Other - see comments N/A: Abdomen Medtronic Inc 11/30/2022 8811-31 3015 / 0 / [id number] Medtronic Cardiac Rhythm Mgmt W1dr01 Tereza Wirelessly Pacemaker Cardiac - [id number] - [id number] Implanted:Qty: 1 on 05/15/2019 by Lane Ramos MD PhD at [facility] Pacemaker Medtronic Inc [id number] 09/17/2020 [id number] / [id number] / Jamil [employer]iences Valve Aortic Trnscath Brown 3 Ultra Resilia 20mm [id number] - [id number] - [id number] Implanted:Qty: 1 on 05/21/2024 by Felipe Gerber MD at [facility] Prosthetic Valve N/A: Aortic Valve [employer] 02/27/2027 [id number] / [id number] / Medtronic Inc Resolute Clive 4mm 2.1-2.7fr 12mm 140cm Rapid Exchange Radiopaque [id number] - [id number] - [id number] Implanted:Qty: 1 on 03/09/2022 by Luca Lott MD at [facility] Stent Left: Coronary Medtronic Inc 12/06/2022 [id number] [id number] / [id number] / [id number] Description:LAD [employer]otron[employer] Inc Stent Coronary De Rx Cocr Ors Msn 4.0x15mm 108175 - [id number] - [id number] Implanted:Qty: 1 on 07/24/2022 by Luca Lott MD at [facility] Stent [employer]ot[employer] Inc 09/05/2023 140029 / [id number] / [id number] Medtronic Card Vasc Surgery 4.0 X 15mm Clive [place] Rx Coronary Stent [id number] - [id number] - [id number] Implanted:Qty: 1 on 11/19/2024 by Luca Lott MD at [facility] Stent N/A: Saphenous Vein Graft Medtronic Card Vasc Surgery 05/05/2027 [id number] / [id number] / [id number] Medtronic Card Vasc Surgery 2.50 X 12mm Clive [place] Rx Coronary Stent [id number] - [id number] - [id number] Implanted:Qty: 1 on 12/25/2024 by Luca Lott MD at [facility] Stent Medtronic Card Vasc Surgery 06/03/2027 [id number] / [id number] / [id number] [place] [employer] Pam Synergy Xd Monorail 3mm 20mm 144cm Delivery System 1 Access Port [id number] - [id number] - [id number] Implanted:Qty: 1 on 02/23/2025 by Luca Lott MD at [facility] Stent [place] [employer] Pam 06/08/2026 [id number] / [id number] / [id number] Painter Vascular System Closure Repair Femoral Artery Suture Mediated Perclose Prostyle 36542-83 - [id number] - [id number] Implanted:Qty: 1 on 05/21/2024 by Felipe Gerber MD at [facility] Vascular Closure Device Left: Common Femoral Artery Painter Vascular 02/17/2026 24174-1 3 / [id number] / [id number] TerNe[employer] Pam Angio-Seal Vip 6fr Closere Device [id number] - [id number] - [id number] Implanted:Qty: 1 on 11/19/2024 by Luca Lott MD at [facility] Vascular Closure Device N/A: Saphenous Vein Graft [employer] Pam 04/29/2025 [id number] / [id number] / [id number] [employer] Pam Angio-Seal Vip 6fr Closere Device [id number] - [id number] - [id number] Implanted:Qty: 1 on 12/25/2024 by Sanket Quiroz MD at [facility] Vascular Closure Device Right: Common Femoral Artery [employer] Pam 06/30/2025 854302 / [id number] / [id number] Description:RFA [employer] Pam Angio-Seal Vip Bondek-Plus 8fr .038in 70cm Hemostatic Latex Free [id number] - [id number] - [id number] Implanted:Qty: 1 on 12/25/2024 by Sanket Quiroz MD at [facility] Vascular Closure Device Right: Femoral Vein [employer] Pam 07/21/2025 [id number] / [id number] / [id number] Description:RFV [employer] Pam [id number] Supple Ronna-Guard [place] Processing 4x4cm Patch Cardiovascular - [id number] - [id number] Implanted:Qty: 1 on 02/11/2019 by Christopher Holman MD at [facility] N/A: Chest [employer] Pam 06/03/2023 [id number] / [id number] 04-0010 / [id number] Jam[employer]iences [id number] Certitude Brown 3 Atrion 18fr Transcatheter Introducer Crimper - [id number] - [id number] Implanted:Qty: 1 on 02/11/2019 by Christopher Holman MD at [facility] N/A: Heart [employer] [id number] / [id number] / Medtronic Inc 8811-574233 Davilla Curl Cath Beta-Cap Holden 15fr 57cm 2 Cuff Clamp Adapter - [id number] Implanted:Qty: 1 on 12/27/2021 by Margarita Montoya MD at [facility] N/A: Abdomen Medtronic Inc 10/14/2023 8811-31 3015 / / Procedures Procedure Name Priority Date/Time Associated Diagnosis Comments HLA ANTIBODY SCREEN BY PRA OR SAB PER SCHEDULE (CLASS I AND CLASS II) Routine 04/20/2025 10:00 AM CDT ESRD (end stage renal disease) (HCC) HLA ANTIBODY SCREEN BY PRA OR SAB PER SCHEDULE (CLASS I AND CLASS II) Routine 03/01/2025 10:00 AM CDT ESRD (end stage renal disease) (HCC) EGFR Timed 02/24/2025 9:50 AM CDT DIFFERENTIAL AUTO Timed 02/24/2025 9:5 0 AM CDT CBC WITH AUTO DIFFERENTIAL Timed 02/24/2025 9:50 AM CDT BASIC METABOLIC PANEL Timed 02/24/2025 9:50 AM CDT EGFR Routine 02/23/2025 11:43 PM CDT VERIFY NOW CLOPIDOGREL Timed 11:43 PM CDT PHOSPHORUS Routine 02/23/2025 11:43 PM CDT MAGNESIUM Routine 02/23/2025 11:43 PM CDT BASIC METABOLIC PANEL Routine 02/23/2025 11:43 PM CDT LEFT HEART CATHETERIZATION WITH CORONARY ANGIOGRAPHY AND WITH AND WITHOUT LEFT VENTRICULOGRAM Routine 02/23/2025 1:44 PM CDT Acute coronary syndrome (HCC) POCT ACTIVATED CLOTTING TIME, LOW RANGE Routine 02/23/2025 1:41 PM CDT POCT ACTIVATED CLOTTING TIME, LOW RANGE Routine 02/23/2025 12:35 PM CDT APTT Timed 02/23/2025 6:36 AM CDT EGFR Routine 02/22/2025 11:07 PM CDT APTT Timed 02/22/2025 11:07 PM CDT PHOSPHORUS Routine 02/22/2025 11:07 PM CDT MAGNESIUM Routine 02/22/2025 11:07 PM CDT BASIC METABOLIC PANEL Routine 02/22/2025 11:07 PM CDT APTT Timed 02/22/2025 2:25 PM CDT TRANSTHORACIC ECHO (TTE) COMPLETE W DOPPLER/CF W CONTRAST ED Urgent/IP Urgent 02/22/2025 1:39 PM CDT ECG 12-LEAD Routine 02/22/2025 9:14 AM CDT TROPONIN I HIGH-SENSITIVITY 4-HOUR Timed 02/22/2025 6:24 AM CDT TROPONIN I HIGH-SENSITIVITY 2-HOUR Timed 02/22/2025 4:51 AM CDT APTT Timed 02/22/2025 4:51 AM CDT EGFR Routine 02/22/2025 2:05 AM CDT MAGNESIUM Timed 02/22/2025 2:05 AM CDT TROPONIN I HIGH-SENSITIVITY SERIES (BASELINE, 2HR, 4HR, 6HR) Routine 02/22/2025 2:05 AM CDT COMPREHENSIVE METABOLIC PANEL Routine 02/22/2025 2:05 AM CDT INFECTION PREVENTION ANTHONY AURIS PCR, SURVEILLANCE Routine 02/22/2025 2:05 AM CDT ECG 12-LEAD Routine 02/22/2025 1:45 AM CDT CRITICAL RESULT CALLBACK CHEMISTRY Routine 02/21/2025 8:31 PM CDT EGFR Routine 02/21/2025 8:31 PM CDT CRITICAL RESULT CALLBACK CHEMISTRY Timed 02/21/2025 8:31 PM CDT APTT Routine 02/21/2025 8:31 PM CDT CALCIUM, IONIZED Timed 02/21/2025 8:31 PM CDT PHOSPHORUS Routine 02/21/2025 8:31 PM CDT MAGNESIUM Routine 02/21/2025 8:31 PM CDT BASIC METABOLIC PANEL Routine 02/21/2025 8:31 PM CDT APTT Timed 02/21/2025 11:39 AM CDT TROPONIN I HIGH-SENSITIVITY Timed 02/21/2025 8:42 AM CDT THYROID FUNCTION CASCADE Timed 02/21/2025 8:42 AM CDT APTT Timed 02/21/2025 4:51 AM CDT TROPONIN I HIGH-SENSITIVITY 6-HOUR Timed 02/21/2025 4:51 AM CDT TROPONIN I HIGH-SENSITIVITY 4-HOUR Timed 02/21/2025 2:18 AM CDT TROPONIN I HIGH-SENSITIVITY 2-HOUR Timed 02/20/2025 11:27 PM CDT CRITICAL RESULT CALLBACK CARDIO CHEM Routine 02/20/2025 10:03 PM CDT EGFR Routine 02/20/2025 10:03 PM CDT LACTATE Timed 02/20/2025 10:03 PM CDT APTT STAT 02/20/2025 10:03 PM CDT CBC WITHOUT DIFFERENTIAL STAT 02/20/2025 10:03 PM CDT PROTIME-INR STAT 02/20/2025 10:03 PM CDT LIPID PANEL Routine 02/20/2025 10:03 PM CDT TROPONIN I HIGH-SENSITIVITY SERIES (BASELINE, 2HR, 4HR, 6HR) Routine 02/20/2025 10:03 PM CDT COMPREHENSIVE METABOLIC PANEL Routine 02/20/2025 10:03 PM CDT PHOSPHORUS Routine 02/20/2025 10:03 PM CDT MAGNESIUM Routine 02/20/2025 10:03 PM CDT ECG 12-LEAD STAT 02/20/2025 9:19 PM CDT PROTIME-INR STAT 02/20/2025 5:36 PM CDT TROPONIN T HIGH-SENSITIVITY 6-HOUR Routine 02/20/2025 5:36 PM CDT EGFR Routine 02/20/2025 5:36 PM CDT HEPARIN ANTI FACTOR XA ACTIVITY STAT 02/20/2025 5:36 PM CDT CBC WITHOUT DIFFERENTIAL STAT 02/20/2025 5:36 PM CDT BASIC METABOLIC PANEL Routine 02/20/2025 5:36 PM CDT HEPATITIS B SURFACE ANTIBODY (IMMUNE STATUS) STAT 02/20/2025 5:36 PM CDT HEPATITIS B SURFACE ANTIGEN STAT 02/20/2025 5:36 PM CDT ECG 12-LEAD STAT 02/20/2025 3:12 PM CDT ECG 12-LEAD STAT 02/20/2025 3:07 PM CDT TROPONIN T HIGH-SENSITIVITY 4-HR Timed 02/20/2025 2:55 PM CDT BLOOD CULTURE STAT 02/20/2025 2:33 PM CDT BLOOD CULTURE STAT 02/20/2025 2:23 PM CDT TROPONIN T HIGH-SENSITIVITY 2-HOUR Timed 02/20/2025 2:[address] CHEST WO CONTRAST ED 02/20/2025 1:06 PM CDT XR CHEST 1 VIEW ED 02/20/2025 10:55 AM CDT EGFR STAT 02/20/2025 10:52 AM CDT DIFFERENTIAL AUTO STAT 02/20/2025 10: 52 AM CDT SEPSIS LACTATE WITH REFLEX STAT 02/20/2025 10:52 AM CDT TROPONIN T HIGH-SENSITIVITY SERIES (BASELINE, 2HR, 4HR, 6HR) STAT 02/20/2025 10:52 AM CDT COMPREHENSIVE METABOLIC PANEL STAT 02/20/2025 10:52 AM CDT CBC WITH AUTO DIFFERENTIAL STAT 02/20/2025 10:52 AM CDT ECG 12-LEAD STAT 02/20/2025 10:47 AM CDT XR ORTHOPANTOGRAM/PANOREX Schedule Routine, Read Routine (OP [...] CLASS II) Routine 01/22/2025 10:00 AM CDT from Last 3 Months Results * HLA Antibody Screen by PRA or SAB per Schedule (Class I and Class II) (04/20/2025 10:00 AM CDT) Blood 04/20/2025 10:0 0 AM CDT Narrative [employer] - 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 Single Antigen Antibody Screen ordered. Salina Hector MD LAB BLOOD ORDERABLES Final Resul t Performing Organization Address [facility] Co de Phone Number [facility] * HLA Antibody Screen by PRA or SAB per Schedule (Class I and Class II) (03/01/2025 10:00 AM CDT) Blood 03/01/2025 10:0 0 AM CDT Narrative [employer] - FIN[employer]CIAL AID OFFICER Sample received in lab and stored. No testing performed at this time. us Salina Hector MD LAB BLOOD ORDERABLES Final Resul t Performing Organization Address [facility] Co de Phone Number [facility] * (ABNORMAL) eGFR (02/24/2025 9:50 AM CDT) eGFR 3(L) >=60 mL/min/1. 73 [...] interpretive data was last reviewed 2021. Blood 02/24/2025 9:50 AM CDT 02/24/2025 10:17 AM CDT Dasha Montez DO LAB BLOOD ORDERABLES Final Result [facility] [address] [facility] Department [place] [address] * (ABNORMAL) Differential, auto (02/24/2025 9:50 AM CDT) Neutrophil abs 4.72 1.50 - 6.50 K/cumm Imm gran abs 0.02 0.00 - 0.10 K/cumm [facility] Lymphocyte abs 0.73(L) 0.80 - 3.30 K/cumm [facility] Monocyte abs 0.42 0.20 - 0.80 K/cumm [facility] Eosinophil abs 0.21 0.00 - 0.50 K/cumm [facility] Basophil abs 0.04 0.00 - 0.10 K/cumm [facility] Neutrophil pct 76.9 % [facility] Comment: Interpretive Data Percent cell count reference ranges are not reported, since discordance with absolute values may lead to misinterpretation of CBC data. Current Interpretive Data was last revised on 2018. Imm gran pct 0.3 % [facility] Comment: Interpretive Data Percent cell count reference ranges are not reported, since discordance with absolute values may lead to misinterpretation of CBC data. Current Interpretive Data was last revised on 2018. Lymphocyte pct 11.9 % [facility] Comment: Interpretive Data Percent cell count reference ranges are not reported, since discordance with absolute values may lead to misinterpretation of CBC data. Current Interpretive Data was last revised on 2018. Monocyte pct 6.8 % [facility] Comment: Interpretive Data Percent cell count reference ranges are not reported, since discordance with absolute values may lead to misinterpretation of CBC data. Current Interpretive Data was last revised on 2018. Eosinophil pct 3.4 % [facility] Comment: Interpretive Data Percent cell count reference ranges are not reported, since discordance with absolute values may lead to misinterpretation of CBC data. Current Interpretive Data was last revised on 2018. Basophil pct 0.7 % [facility] Comment: Interpretive Data Percent cell count reference ranges are not reported, since discordance with absolute values may lead to misinterpretation of CBC data. Current Interpretive Data was last revised on 2018. Blood 02/24/2025 9:50 AM CDT 02/24/2025 10:17 AM CDT Dasha Montez DO LAB BLOOD ORDERABLES Final Result [facility] [address] [facility] [place] [address] * (ABNORMAL) CBC with auto differential (02/24/2025 9:50 AM CDT) WBC 6.14 3.80 - 9.90 K/cumm Hgb 12.5 11.9 - 15.5 g/dL [facility] Hct 39.5 35.6 - 45.5 % [facility] Plt 177 150 - 400 K/cumm [facility] MPV 10.8 9.1 - 12.3 fL [facility] RBC 4.37 3.90 - 5.20 M/cumm [facility] MCV 90.4 81.3 - 96.4 fL [facility] MCH 28.6 27.1 - 33.3 pg [facility] MCHC 31.6(L) 32.3 - 35.7 g/dL [facility] RDW CV 15.9(H) 11.1 - 14.9 % [facility] RDW SD 51.0(H) 35.7 - 48.1 fL [facility] NRBC abs 0.00 0.00 - 0.01 K/cumm [facility] Blood 02/24/2025 9:50 AM CDT 02/24/2025 10:17 AM CDT Dasha Montez DO LAB BLOOD ORDERABLES Final Result Performing Organization Address City/[facility]/ZIP Co de Phone Number [facility] [address] [facility] [address] Department [place] [address] * (ABNORMAL) Basic metabolic panel (02/24/2025 9:50 AM CDT) Pathologist [facility] Sodium 136 135 - 145 mmol/L Potassium, pl 5.0(H) 3.3 - 4.9 mmol/L [facility] Chloride 93(L) 97 - 110 mmol/L [facility] CO2 27 22 - 32 mmol/L [facility] Anion gap 16(H) 2 - 15 mmol/L [facility] BUN 43(H) 6 - 25 mg/dL [facility] Creatinine 11.83(H) 0.60 - 1.10 mg/dL [facility] Glucose 82 70 - 199 mg/dL [facility] Comment: Interpretive Data Fasting glucose [...] interpretive data was last revised 2022. Calcium 7.9(L) 8.5 - 10.3 mg/dL [facility] Blood 02/24/2025 9:50 AM CDT 02/24/2025 10:17 AM CDT Dasha Montez DO LAB BLOOD ORDERABLES Final Result [facility] [place] [address] * (ABNORMAL) eGFR (02/23/2025 11:43 PM CDT) eGFR 3(L) >=60 mL/min/1. 73 m2 [...] interpretive data was last reviewed 2021. Blood 02/23/2025 11:4 3 PM CDT 02/24/2025 12:22 AM CDT Jaimie Giordano MD LAB BLOOD ORDERABLES Final Result Performing Organization Address [facility] Co de Phone Number CAMERON DOMINGUEZ [facility] [place] [address] * VerifyNow clopidogrel (02/23/2025 11:43 PM CDT) [employer] clopidogrel 208 PRU Comment: Interpretive Data Reference interval from adults not taking Plavix is 169-356 PRU. Output is reported in Plavix reaction units (PRU). A lower PRU indicates a more complete inhibition of P2Y12 ADP receptor by drugs such as clopidogrel or prasugrel. There is no consensus regarding a cut-off value for PRU when assessing patients' sensitivity to ADP P2Y12 receptor inhibitors. Clinicians should use this information based on their interpretation of currently available evidence to individualize patient management decisions. Conditions that may produce falsely low PRU results include anemia (Hct <29%) and thrombocytopenia (platelet count <90,000/mcL). Platelet responsiveness to Plavix should not be performed within 48 hours of treatment with GPIIbIIIa inhibitors etifibatide (Integrilin) or tirofiban (Aggrastat) or within 2 weeks of treatment with abciximab (Reopro). Current interpretive data was last revised on 2017. Blood 02/23/2025 11:4 3 PM CDT 02/24/2025 12:16 AM CDT Ellie Saenz MD LAB BLOOD ORDERABLES Fin al Result Performing Organization Address [facility] de Phone Number [facility] Department [place] [address] * (ABNORMAL) Phosphorus (02/23/2025 11:43 PM CDT) Phosphorus, pl 7.6(H) 2.3 - 4.5 mg/dL Blood 02/23/2025 11:4 3 PM CDT 02/24/2025 12:22 AM CDT Jaimie Giordano MD LAB BLOOD ORDERABLES Final Result Performing Organization Address [facility] de Phone Number [facility] Department [place] [address] * Magnesium (02/23/2025 11:43 PM CDT) Magnesium 2.4 1.4 - 2.5 mg/dL Blood 02/23/2025 11:4 3 PM CDT 02/24/2025 12:22 AM CDT Jaimie Giordano MD LAB BLOOD ORDERABLES Final Result Performing Organization Address City/[facility]/ZIP Co de Phone Number CAMERON DOMINGUEZ [facility] Department [place] [address] * (ABNORMAL) Basic metabolic panel (02/23/2025 11:43 PM CDT) Sodium 133(L) 135 - 145 mmol/L Potassium, pl 4.9 3.3 - 4.9 mmol/L [facility] Chloride 95(L) 97 - 110 mmol/L [facility] CO2 27 22 - 32 mmol/L [facility] Anion gap 11 2 - 15 mmol/L [facility] BUN 52(H) 6 - 25 mg/dL [facility] Creatinine 11.94(H) 0.60 - 1.10 mg/dL [facility] Glucose 89 70 - 199 mg/dL [facility] Comment: Interpretive Data Fasting glucose [...] interpretive data was last revised 2022. Calcium 8.0(L) 8.5 - 10.3 mg/dL [facility] Blood 02/23/2025 11:4 3 PM CDT 02/24/2025 12:22 AM CDT Jaimie Giordano MD LAB BLOOD ORDERABLES Final Result Performing Organization Address [facility] Co de Phone Number CAMERON DOMINGUEZ [facility] [place] [address] * LEFT HEART CATHETERIZATION WITH CORONARY ANGIOGRAPHY AND WITH AND WITHOUT LEFT VENTRICULOGRAM (02/23/2025 1:44 PM CDT) Anatomical Region Laterality Modality X-Ray Angiograph y Impressions 02/24/2025 6:20 AM CDT Severe InStent restenosis with severe fibrotic reaction status post laser atherectomy AngioSculpt and drug-eluting stent placement Right common femoral artery Angio-Seal THERAPEUTIC RECOMMENDATIONS: Continue aggressive medical therapy and risk factor modification Bedrest 2 hours post Angio-Seal deployment Continue aspirin and Plavix indefinitely I was present during the entire procedure and personally dictated or confirmed the above report. Luca Lott MD Narrative 02/24/2025 6:20 AM CDT Table formatting from the original result was not included. Images from the original result were not included. Procedure: CORONARY ANGIOGRAM / PERCUTANEOUS CORONARY INTERVENTION Patient: Estuardo Copeland is a 54 y.o. female : 1970 MR number: [id number] Date of Service: 02/23/2025 Construction Checker: Luca Lott MD Fellow: Sanket Quiroz MD Fellow: Hiral Valverde MD Referring physician: Raad INDICATION: NSTEMI PATIENT CLINICAL PROFILE: Estuardo Copeland is a 54 y.o. female with a history of Coronary artery disease status post coronary bypass grafting and numerous PCIs, aortic stenosis status post surgical valve placement with redo TAVR and ischemic cardiomyopathy on peritoneal dialysis presents for NSTEMI with chest pain. She recently underwent PCI to the vein graft to her LAD and her [place] left main. She now presents for urgent cardiac catheterization PROCEDURE: The risks, benefits and alternatives of the procedures and moderate sedation were explained to the patient and informed consent was obtained. The patient was brought to the aquatic laborer and placed on the table Bilateral groins were prepped and draped in the usual sterile fashion. The right femoral artery site was infiltrated with 2% lidocaine. I provided direct face to face monitoring of intravenous conscious sedation which was administered using Fentanyl and Versed by an independently certified nurse for a total of 60 minutes. The vessel was accessed using a Micropuncture kit and the modified Seldinger technique with a Micro needle, a wire was threaded into the vessel, and a 6Fr Sheath was advanced over the wire into the vessel. Left Coronary Artery Angiogram was performed using a 6 Fr JL4 Catheter. Saphenous vein graft to the LAD angiogram performed using a 6 Yemeni 3D RC Percutaneous coronary intervention performed on theSVG to the Proximal LAD. This was an ACC/AHA Type C. Initial Lesion Length 12mm and final lesion Length 20mm. Initial KAROLINA Flow 3 Final KAROLINA Flow 3. Equipment used: 6 3DRC, [employer] IVUS Catheter, Pipe Puller 50 wire, 0.9 mm laser atherectomy catheter 1.4 mm laser atherectomy catheter, 3 5 x 20 AngioSculpt balloon, 3 0 by 15 emerge balloon a 3 0 x 20 mm synergy drug-eluting stent, a 3 5 x 20 NC Sapphire balloon, a 4 0 x 8 mm NC Sapphire balloon, OCT. At the end of the procedure, arteriotomy was successfully closed and hemostasis achieved by a Angio-Seal Patient was transferred to the holding area in stable condition. There were no apparent complications. RESULTS: Coronary Arteriography: Left main coronary: Left main artery is very difficult to visualize but appears to have a stent that is widely patent with no significant narrowing Left Anterior Decending: Lad is occluded at its proximal segment Left Circumflex: Circumflex is a large vessel supplies left-sided PDA and circumflex artery. There are no significant narrowings present although it extremely challenging to get into the left main post PCI Graft Angiography: SVG-LAD: Saphenous vein graft to the LAD has a high-grade 99% lesion in its proximal segment that is new from her prior catheterization. Percutaneous coronary intervention performed on the proximal vein graft to the LAD After the diagnostic portion the case heparin was administered to obtain ACT of greater than 300. We attempted to wire with a standard workhorse wire but it was extremely difficult. We used a Pipe Puller 50 wire with extreme difficulty wire through the fibrotic area. We then took a 1.4 laser and proximally performed laser. At this point it would not pass. We took a 0.9 mm laser and passed it through the lesion starting at 45/25 and increasing up to 80 80. We did 80 80 with contrast for the final run. This resulted in improvement in the luminal area. We then took a 3 0 x 12 emerge balloon and pre-dilated the lesion. At this point we noticed that there was still some fibrotic looking area at the distal portion. We took our OCT catheter into performed OCT. This showed a vein graft that was patent with severe InStent restenosis that appeared to be intense fibrotic reaction. This point we elected to try to perform more laser atherectomy. We took the 1.4 laser down and very carefully at 45/25 performed laser atherectomy to the fibrotic area in the distal portion. Next we took a 3 5 AngioSculpt and delivered it and post dilated this up to 24 atmospheres. At this point we elected like an improved lumen but there was still the fibrotic tissue causing some luminal compromise. We elected to stent. Given her prior stenting we elected a Synergy stent placed. We placed a 3 0 x 20 synergy stent carefully and deployed it at 18 atmospheres. Next we took a 3 5 x 18 mm NC Sapphire balloon and post dilated the stent up to 30 atmospheres. We then attempted to deliver OCT catheter back down but unfortunately would not pass. We tried multiple maneuvers and would not pass. We removed this and placed our IVUS catheter down and IVUS showed some slight underexpansion of the stent but no tissue protrusion. We then took a 4 0 x 8 NC Sapphire balloon inflated up to 16 atmospheres with some improvement in the luminal area. Final angiographic views showed excellent result with KAROLINA 3 flow down all side branches and no evidence of dissection or perforation. COMPLICATIONS: None DIAGNOSTIC Ellie Saenz MD CV CARDIAC CATH PROCEDUR ES Final Result * (ABNORMAL) POCT Activated clotting time, low range (02/23/2025 1:41 PM CDT) Angiologix ACT 319(H) 123 - 168 sec POC Performer [id number] [facility] Device Number [id number] [facility] Blood 02/23/2025 1:41 PM CDT 02/23/2025 1:41 PM CDT Ellie Saenz MD LAB POCT ORDERABLES - DE VICE Final Result [facility] [address] [facility] Department [place] [address] * (ABNORMAL) POCT Activated clotting time, low range (02/23/2025 12:35 PM CDT) ACT 351(H) 123 - 168 sec POC Performer [id number] [facility] POC Device Number [id number] [facility] Blood 02/23/2025 12:3 5 PM CDT 02/23/2025 12:35 PM CDT us Ellie Saenz MD LAB POCT ORDERABLES - DE VICE Final Result Performing Organization Address City/[facility] Co de Phone Number [facility] [place] [address] * (ABNORMAL) aPTT (02/23/2025 6:36 AM CDT) aPTT 80(H) 28 - 38 sec Comment: Interpretive Data Heparin therapeutic range: 66.0 - 100.0 seconds. Range based on correlation with therapeutic heparin activity range of 0.3 - 0.7 Units/mL. Current interpretive data was last revised on 2023. Blood 02/23/2025 6:36 AM CDT 02/23/2025 7:00 AM CDT us Heaven Lerner MD LAB BLOOD ORDERABLES Final Result Performing Organization Address [facility]/ZIP Co de Phone Number [facility] [place] [address] * (ABNORMAL) eGFR (02/22/2025 11:07 PM CDT) eGFR 3(L) >=60 mL/min/1. 73 m2 [...] interpretive data was last reviewed 2021. Blood 02/22/2025 11:0 7 PM CDT 02/22/2025 11:50 PM CDT Jaimie Giordano MD LAB BLOOD ORDERABLES Final Result Performing Organization Address [facility] de Phone Number [facility] [place] [address] * (ABNORMAL) aPTT (02/22/2025 11:07 PM CDT) aPTT 69(H) 28 - 38 sec Comment: Interpretive Data Heparin therapeutic range: 66.0 - 100.0 seconds. Range based on correlation with therapeutic heparin activity range of 0.3 - 0.7 Units/mL. Current interpretive data was last revised on 2023. Blood 02/22/2025 11:0 7 PM CDT 02/22/2025 11:52 PM CDT Ellie Saenz MD LAB BLOOD ORDERABLES Fin al Result Performing Organization Address [facility] Co de Phone Number [facility] [place] [address] * (ABNORMAL) Phosphorus (02/22/2025 11:07 PM CDT) Phosphorus, pl 7.2(H) 2.3 - 4.5 mg/dL Blood 02/22/2025 11:0 7 PM CDT 02/22/2025 11:50 PM CDT Jaimie Giordano MD LAB BLOOD ORDERABLES Final Result [facility] [address] [facility] [place] [address] * Magnesium (02/22/2025 11:07 PM CDT) Pathologist [facility] Magnesium 2.5 1.4 - 2.5 mg/dL Blood 02/22/2025 11:0 7 PM CDT 02/22/2025 11:50 PM CDT Jaimie Giordano MD LAB BLOOD ORDERABLES Final Result Performing Organization Address [facility] Co de Phone Number [facility] [place] [address] * (ABNORMAL) Basic metabolic panel (02/22/2025 11:07 PM CDT) Pathologist [facility] Sodium 134(L) 135 - 145 mmol/L Potassium, pl 4.5 3.3 - 4.9 mmol/L [facility] Chloride 95(L) 97 - 110 mmol/L [facility] CO2 28 22 - 32 mmol/L [facility] Anion gap 11 2 - 15 mmol/L [facility] BUN 56(H) 6 - 25 mg/dL [facility] Creatinine 11.97(H) 0.60 - 1.10 mg/dL [facility] Glucose 104 70 - 199 mg/dL [facility] Comment: Interpretive Data Fasting glucose [...] interpretive data was last revised 2022. Calcium 7.8(L) 8.5 - 10.3 mg/dL [facility] Blood 02/22/2025 11:0 7 PM CDT 02/22/2025 11:50 PM CDT Jaimie Giordano MD LAB BLOOD ORDERABLES Final Result Performing Organization Address [facility] Co de Phone Number CAMERON [facility] [place] [address] * (ABNORMAL) aPTT (02/22/2025 2:25 PM CDT) aPTT 54(H) 28 - 38 sec Comment: Interpretive Data Heparin therapeutic range: 66.0 - 100.0 seconds. Range based on correlation with therapeutic heparin activity range of 0.3 - 0.7 Units/mL. Current interpretive data was last revised on 2023. Blood 02/22/2025 2:25 PM CDT 02/22/2025 2:59 PM CDT us Dasha Montez DO LAB BLOOD ORDERABLES Final Result Performing Organization Address [facility] [place] [address] * TRANSTHORACIC ECHO (TTE) COMPLETE W DOPPLER/CF W CONTRAST (02/22/2025 1:39 PM CDT) Pathologist [facility] EF Mod BP 51 % CONS SCIMAGE Anatomical Region Laterality Modality Ultrasound 02/22/2025 12:3 8 PM CDT Narrative 02/22/2025 2:49 PM CDT [facility] [place] [address] Transthoracic Echocardiographic Report Patient Name: ESTUARDO COPELAND M : 1970 (54y 3m) Gender: F Study Date: 02/22/2025 12:38:48 PM Ht(Inch): 64 Wt(Lb): 123.9 BSA: 1.59 Cco & President: Marisol Arciniega [facility], [facility] Location: [id number] Order Provider: ELLIE SAENZ Heart Rate: 75 BMI: 21.27 BP: 90 / 69 Ref Provider: ELLIE SAENZ PROCEDURES: Echocardiographic Report: Transthoracic complete echo with strain imaging and contrast, 2D, spectral and tissue Doppler, color flow Doppler, M-mode. Contrast: Contrast Enhancement was Employed: After initial imaging due to sub- optimal quality related to co-morbidity defined by patient's body habitus and due to suboptimal image quality with inadequate visualization of at least 2 of 16 LV wall segments in any view after initial imaging. Perflutren contrast was administered using the volume necessary to obtain adequate images. 0.6 ml Optison Administered, (2.4 ml wasted). INDICATIONS: Acute coronary syndrome. CONCLUSIONS: 1. Normal left ventricular size and LV wall thickness. Anteroapical hypokinesis/akinesis/dyskinesis with overall minimally depressed left ventricular systolic function, LVEF 51 %. Indeterminate diastolic function due to mitral annular calcification. Unable to reliably assess LV strain. 2. Normal right ventricular size and systolic function with normal RV free wall strain. 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 3. Normal aorta, LA, RA and IVC. 4. Bioprosthetic aortic valve with mean gradient 12 mm Hg and mild paravalvular AR. 5. Moderate MAC with mild calcific MS, mean gradient ~ 5 mm Hg, and mild MR. 6. Moderate to severe TR with systolic flow reversal in the hepatic veins. Mild AK. Est. PASP 40-45 mm Hg. 7. Physiologic pericardial effusion. 8. Compared to 11/10/24, no significant change. ATTESTATION: I have personally reviewed and interpreted this study without fellow or resident. - DISCLAIMER: The study images and the final report will be retained in the patient chart by the Echo Laboratory for the legally required time period. This chart constitutes the legal record of any testing performed. FINDINGS: Left Ventricle: Normal left ventricular size based on volume index. Normal LV wall thickness. Mildly depressed left ventricular systolic function. The Ejection Fraction (Green's) is measured at 51 %. Indeterminate diastolic function due to mitral annular calcification. Unable to assess global longitudinal strain due to image quality. Resting Segmental Wall Motion Analysis: Total wall motion score is 2.00. There is dyskinesis of the apical cap. There is dyskinesis of the basal anteroseptal wall. There is dyskinesis of the apical septal wall. There is akinesis of the mid anteroseptal wall. There is akinesis of the apical lateral wall. There is hypokinesis of the mid to apical anterior wall. There is hypokinesis of the apical inferior wall. There is hypokinesis of the mid inferoseptal wall. The remaining left ventricular segments demonstrate normal wall motion. Right Ventricle: Normal right ventricular size. Normal right ventricular systolic function. Pacemeaker noted in the right heart. Normal RV free wall strain. Left Atrium: The left atrium is normal in size. Right Atrium: The right atrium is normal in size. Mitral Valve: Moderate mitral annular calcification. No mitral regurgitation. The mean transmitral gradient is: 5 mmHg. Aortic Valve: The aortic valve area by the continuity equation (using VTI) is 1.42 cm2. Aortic valve dimensionless index is 0.32. Bioprosthetic aortic valve with mean gradient 12 mm Hg and mild paravalvular AR. Tricuspid Valve: Normal tricuspid valve structure. Moderate to severe tricuspid regurgitation. Systolic flow reversal noted in hepatic veins. The estimated pulmonary artery systolic pressure is 40-45 mmHg. No tricuspid valve stenosis. Pulmonic Valve: Normal pulmonic valve structure. Mild pulmonic regurgitation. No pulmonic valve stenosis present. Pericardium: Physiologic pericardial effusion. Aorta: Normal aortic root size when indexed. The ascending aorta is normal in size when indexed. IVC: IVC is normal in size. The IVC was <2.1 cm and collapsibility >50%. (est. RA pressure 0-5 mmHg). Rhythm: Normal Sinus rhythm was seen during the study. MEASUREMENTS: 2D/MM Value Range Doppler Value Range LVIDd 2D 3.48 cm [ 3.80 - 5.20 ] AV Peak Ayden 2.2 m/s [ 1.0 - 1.7 ] LVIDs 2D 3.06 cm [ 2.20 - 3.50 ] AV Peak PG 19.36 mmHg IVSd 2D 0.91 cm [ 0.60 - 0.90 ] AV Mean PG 12 mmHg LVPWd 2D 0.65 cm [ 0.60 - 0.90 ] AV VTI 46.3 cm LV Thickness Ratio 1.4 LVOT Peak Ayden 0.7 m/s [ 0.7 - 1.1 ] LV FS 2D 12.07 % [ 27.00 - 45.00 ] LVOT Peak PG 1.96 mmHg LV Mass 2D 73.40 g LVOT Mean PG 1 mmHg LV Mass Index 2D 46.16 g/m2 LVOT VTI 14.7 cm RWT 0.37 LVOT Diam 2.39 cm EDV Mod BP 73.63 ml [ 46.00 - 106.00 ] ASHOK VTI 1.42 cm2 LV EDV Index 46.31 ml/m2 LVOT/AV VTI 0.32 - Dimensionless index (DVI) ESV Mod BP 36.00 ml [ 14.00 - 42.00 ] MV E Peak Ayden 1.9 m/s [ 0.6 - 1.3 ] EF Mod BP 51 % [ 54 - 74 ] MV A Peak Ayden 0.8 m/s [ 1.0 - 1.2 ] LA Length 4C 4.00 cm MV E/A 2.3 ratio [ 0.8 - 1.5 ] RV Base Dimen 2D 3.3 cm [ 2.5 - 4.2 ] MV Peak Ayden 1.9 m/s TAPSE 1.27 cm [ 1.71 - 5.00 ] MV Peak PG 14.44 mmHg RA Volume 24.42 ml MV Mean PG 5 mmHg RA Volume Index 15.36 ml/m2 MV VTI 39.7 cm AoR Diam 2D 2.35 cm [ 2.70 - 3.70 ] MV Decel Time 362.43 msec [ 104.00 - 258.00 ] Ao Root Index 1.48 cm/m2 [ 1.00 - 2.00 ] Med E` Ayden 4.1 cm/sec [ 8.0 - 25.0 ] Asc Ao Diam 2D 1.89 cm Lat E` Ayden 4.3 cm/sec [ 10.0 - 25.0 ] Asc Ao Index 1.19 cm/m2 Average E/E` 45.24 MR Peak Ayden 4.3 m/s MR Peak PG 73.96 mmHg MR VTI 123.6 cm RV S` 5.81 cm/sec TR Peak Ayden 3.4 m/s [ 1.0 - 2.8 ] TR Peak PG 46.2 mmHg PV Peak Ayden 1.4 m/s [ 0.4 - 0.8 ] PV Peak PG 7.84 mmHg Electronically Signed By: Rc Koehler MD 02/22/2025 2:48:34 PM CDT Wall Motion Analysis - Resting Procedure Note Rc Koehler MD - 02/22/2025 [facility] [place] [address] Transthoracic Echocardiographic Report Patient Name: ESTUARDO COPELAND M : 1970 (54y 3m) Gender: F Study Date: 02/22/2025 12:38:48 PM Ht(Inch): 64 Wt(Lb): 123.9 BSA: 1.59 Cco & President: Marisol Arciniega RDCS [facility] Location: [id number] OrderProvider: ELLIE SAENZ Heart Rate: 75 BMI: 21.27 BP: 90 / 69 Ref Provider: ELLIE SAENZ PROCEDURES: Echocardiographic Report: Transthoracic complete echo with strain imagingand contrast, 2D, spectral and tissue Doppler, color flow Doppler, M-mode. Contrast: Contrast Enhancement was Employed: After initial imaging due tosub- optimal quality related to co-morbidity defined by patient's body habitus and dueto suboptimal image quality with inadequate visualization of at least 2 of 16 LV wallsegments in any view after initial imaging. Perflutren contrast was administered using thevolume necessary to obtain adequate images. 0.6 ml Optison Administered, (2.4 mlwasted). INDICATIONS: Acute coronary syndrome. CONCLUSIONS: 1. Normal left ventricular size and LV wall thickness. Anteroapical hypokinesis/akinesis/dyskinesis with overall minimally depressed leftventricular systolic function, LVEF 51 %. Indeterminate diastolic function due tomitral annular calcification. Unable to reliably assess LV strain. 2. Normal right ventricular size and systolic function with normal RV freewall strain. 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 3. Normal aorta, LA, RA and IVC. 4. Bioprosthetic aortic valve with mean gradient 12 mm Hg and mildparavalvular AR. 5. Moderate MAC with mild calcific MS, mean gradient ~ 5 mm Hg, and mildMR. 6. Moderate to severe TR with systolic flow reversal in the hepatic veins.Mild AK. Est. PASP 40-45 mm Hg. 7. Physiologic pericardial effusion. 8. Compared to 11/10/24, no significant change. ATTESTATION: I have personally reviewed and interpreted this study without fellow orresident. - DISCLAIMER: The study images and the final report will be retained in the patientchart by the Echo Laboratory for the legally required time period. This chart constitutesthe legal record of any testing performed. FINDINGS: Left Ventricle: Normal left ventricular size based on volume index. NormalLV wall thickness. Mildly depressed left ventricular systolic function. TheEjection Fraction (Green's) is measured at 51 %. Indeterminate diastolic function due tomitral annular calcification. Unable to assess global longitudinal strain due to imagequality. Resting Segmental Wall Motion Analysis: Total wall motion score is 2.00.There is dyskinesis of the apical cap. There is dyskinesis of the basalanteroseptal wall. There is dyskinesis of the apical septal wall. There is akinesis of the midanteroseptal wall. There is akinesis of the apical lateral wall. There is hypokinesis of themid to apical anterior wall. There is hypokinesis of the apical inferior wall. There ishypokinesis of the mid inferoseptal wall. The remaining left ventricular segmentsdemonstrate normal wall motion. Right Ventricle: Normal right ventricular size. Normal right ventricularsystolic function. Pacemeaker noted in the right heart. Normal RV free wallstrain. Left Atrium: The left atrium is normal in size. Right Atrium: The right atrium is normal in size. Mitral Valve: Moderate mitral annular calcification. No mitralregurgitation. The mean transmitral gradient is: 5 mmHg. Aortic Valve: The aortic valve area by the continuity equation (using VTI)is 1.42 cm2. Aortic valve dimensionless index is 0.32. Bioprosthetic aortic valve withmean gradient 12 mm Hg and mild paravalvular AR. Tricuspid Valve: Normal tricuspid valve structure. Moderate to severetricuspid regurgitation. Systolic flow reversal noted in hepatic veins. Theestimated pulmonary artery systolic pressure is 40-45 mmHg. No tricuspid valve stenosis. Pulmonic Valve: Normal pulmonic valve structure. Mild pulmonicregurgitation. No pulmonic valve stenosis present. Pericardium: Physiologic pericardial effusion. Aorta: Normal aortic root size when indexed. The ascending aorta is normalin size when indexed. IVC: IVC is normal in size. The IVC was <2.1 cm and collapsibility >50%.(est. RA pressure 0-5 mmHg). Rhythm: Normal Sinus rhythm was seen during the study. MEASUREMENTS: 2D/MM Value Range DopplerValue Range LVIDd 2D 3.48 cm [ 3.80 - 5.20 ] AV Peak Vel2.2 m/s [ 1.0 - 1.7 ] LVIDs 2D 3.06 cm [ 2.20 - 3.50 ] AV Peak PG19.36 mmHg IVSd 2D 0.91 cm [ 0.60 - 0.90 ] AV Mean PG12 mmHg LVPWd 2D 0.65 cm [ 0.60 - 0.90 ] AV VTI46.3 cm LV Thickness Ratio 1.4 LVOT Peak Vel0.7 m/s [ 0.7 - 1.1 ] LV FS 2D 12.07 % [ 27.00 - 45.00 ] LVOT Peak PG1.96 mmHg LV Mass 2D 73.40 g LVOT Mean PG1 mmHg LV Mass Index 2D 46.16 g/m2 LVOT VTI14.7 cm RWT 0.37 LVOT Diam2.39 cm EDV Mod BP 73.63 ml [ 46.00 - 106.00 ] ASHOK VTI1.42 cm2 LV EDV Index 46.31 ml/m2 LVOT/AV VTI0.32 - Dimensionless index (DVI) ESV Mod BP 36.00 ml [ 14.00 - 42.00 ] MV E Peak Vel1.9 m/s [ 0.6 - 1.3 ] EF Mod BP 51 % [ 54 - 74 ] MV A Peak Vel0.8 m/s [ 1.0 - 1.2 ] LA Length 4C 4.00 cm MV E/A2.3 ratio [ 0.8 - 1.5 ] RV Base Dimen 2D 3.3 cm [ 2.5 - 4.2 ] MV Peak Vel1.9 m/s TAPSE 1.27 cm [ 1.71 - 5.00 ] MV Peak PG14.44 mmHg RA Volume 24.42 ml MV Mean PG5 mmHg RA Volume Index 15.36 ml/m2 MV VTI39.7 cm AoR Diam 2D 2.35 cm [ 2.70 - 3.70 ] MV Decel Ycsp513.43 msec [ 104.00 - 258.00 ] Ao Root Index 1.48 cm/m2 [ 1.00 - 2.00 ] Med E` Vel4.1 cm/sec [ 8.0 - 25.0 ] Asc Ao Diam 2D 1.89 cm Lat E` Vel4.3 cm/sec [ 10.0 - 25.0 ] Asc Ao Index 1.19 cm/m2 Average E/E`45.24 MR Peak Ayden 4.3 m/s MR Peak PG 73.96 mmHg MR VTI 123.6 cm RV S` 5.81 cm/sec TR Peak Ayden 3.4 m/s [ 1.0 - 2.8 ] TR Peak PG 46.2 mmHg PV Peak Ayden 1.4 m/s [ 0.4 - 0.8 ] PV Peak PG 7.84 mmHg Electronically Signed By: Rc Koehler MD 02/22/2025 2:48:34 PM CDT Wall Motion Analysis - Resting us Ellie Saenz MD CV ECHO PROCEDURES Final Result * ECG 12 lead (02/22/2025 9:14 AM CDT) [facility] Ventricular Rate EKG/Min 80 BPM [facility] Atrial Rate 80 BPM [facility] AK-Interval (MSEC) 96 ms [facility] QRS-Interval (MSEC) 90 ms [facility] QT-Interval (MSEC) 412 ms [facility] QTc 475 ms [facility] P [place] 90 degrees [facility] R [place] -30 degrees [facility] T [place] 133 degrees [facility] Diagnosis Sinus rhythm with sinus arrhythmia with short AK Left axis deviation Left ventricular hypertrophy ( Romhilt-Pierce ) Cannot rule out Septal infarct (cited on 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-FEB-2025) ST & T wave abnormality, consider lateral ischemia Abnormal ECG When compared with ECG of 22-FEB-2025 01:51, (unconfirmed) Sinus rhythm has replaced Atrial fibrillation Confirmed by HARJINDER HANDY M.D ([id number]) on 03/05/2025 11:42:44 AM [facility] 02/22/2025 9:14 AM CDT 03/05/2025 11:42 AM CDT us Jaimie Giordano MD ECG ORDERABLES Victoria becerra Result [facility] * (ABNORMAL) Troponin I high-sensitivity 4-hour (02/22/2025 6:24 AM CDT) Pathologist [facility] Trop I hs 1,868(C) <=17 ng/L Comment: Previous critical value noted within 48 hours ago. Interpretive Data For further hscTnI resources including the diagnostic algorithm and an aid in interpretation, copy and paste this link: https://bjhlab.testcatalog.org/show/hsTrop-[email or web address] Current Interpretive Data last revised 2020. Trop I hs pct delta -19(C) % [facility] Comment:Previous critical va lue noted within 48 hours ago. Trop I hs interp Significa nt(C) [facility] Comment:Previous critical va lue noted within 48 hours ago. Blood 02/22/2025 6:24 AM CDT 02/22/2025 6:48 AM CDT Milton Rubio MD LAB BLOOD ORDERABLES Final Resul t Performing Organization Address [facility] de Phone Number [facility] [place] [address] * (ABNORMAL) Troponin I high-sensitivity 2-hour (02/22/2025 4:51 AM CDT) Trop I hs 2,146(C) <=17 ng/L Comment: Previous critical value noted within 48 hours ago. Interpretive Data For further [facility] resources including the diagnostic algorithm and an aid in interpretation, copy and paste this link: https://bjhlab.testcatalog.org/show/[email or web address] Current Interpretive Data last revised 2020. Trop I hs pct delta -7 % [facility] Trop I hs interp Equivocal [facility] Blood 02/22/2025 4:51 AM CDT 02/22/2025 5:26 AM CDT Milton Rubio MD LAB BLOOD ORDERABLES Final Resul t Performing Organization Address [facility] de Phone Number [facility] Department [place] [address] * (ABNORMAL) aPTT (02/22/2025 4:51 AM CDT) aPTT 122(H) 28 - 38 sec Comment: Interpretive Data Heparin therapeutic range: 66.0 - 100.0 seconds. Range based on correlation with therapeutic heparin activity range of 0.3 - 0.7 Units/mL. Current interpretive data was last revised on 2023. Blood 02/22/2025 4:51 AM CDT 02/22/2025 5:29 AM CDT us Milton Rubio MD LAB BLOOD ORDERABLES Final Resul t [facility] [place] [address] * Infection Prevention Anthony auris PCR, surveillance Axilla/Groin (02/22/2025 2:05 AM CDT) Anthony auris DNA Not Detected Not Detected [facility] Comment: Interpretive Data Testing performed by [facility] using the Pablo estelle [employer] Anthony auris assay. This assay detects DNA from Anthony auris using Real-Time PCR. This assay is laboratory developed and is not cleared by the [facility] Food and Drug Administration. The performance characteristics have been verified by the [facility]. Axilla/Groin 02/22/2025 2:05 AM CDT 02/22/2025 3:14 AM CDT Narrative [facility] - 02/22/2025 2:38 PM CDT Order placed by [facility] due to ring surveillance. us Instant Order Generic Provider LAB MICROBIOLOGY - GENERAL ORDERABLES Final Result Performing Organization Address City/[facility] Co de Phone Number [facility] Department [place] [address] [facility] * (ABNORMAL) Troponin I high-sensitivity series (baseline, 2hr, 4hr, 6hr) (02/22/2025 2:05 AM CDT) Trop I hs 2,317(C) <=17 ng/L Comment: Previous critical value noted within 48 hours ago. Interpretive Data For further hscTnI resources including the diagnostic algorithm and an aid in interpretation, copy and paste this link: https://bjhlab.testcatalog.org/show/[email or web address] Current Interpretive Data last revised 2020. Blood 02/22/2025 2:05 AM CDT 02/22/2025 2:57 AM CDT Milton Rubio MD LAB BLOOD ORDERABLES Final Resul t Performing Organization Address City/[facility] Co de Phone Number [facility] Department [place] [address] * (ABNORMAL) eGFR (02/22/2025 2:05 AM CDT) eGFR 3(L) >=60 mL/min/1. 73 [...] interpretive data was last reviewed 2021. Blood 02/22/2025 2:05 AM CDT 02/22/2025 2:58 AM CDT Milton Rubio MD LAB BLOOD ORDERABLES Final Resul t Performing Organization Address City/[facility]/ZIP Co de Phone Number [facility] Department [place] [address] * Magnesium (02/22/2025 2:05 AM CDT) Magnesium 2.5 1.4 - 2.5 mg/dL Blood 02/22/2025 2:05 AM CDT 02/22/2025 2:58 AM CDT Milton Rubio MD LAB BLOOD ORDERABLES Final Resul t [facility] [address] [place] [address] * (ABNORMAL) Comprehensive metabolic panel (02/22/2025 2:05 AM CDT) Sodium 138 135 - 145 mmol/L Potassium, pl 4.3 3.3 - 4.9 mmol/L [facility] Chloride 95(L) 97 - 110 mmol/L [facility] CO2 26 22 - 32 mmol/L [facility] Anion gap 17(H) 2 - 15 mmol/L [facility] BUN 55(H) 6 - 25 mg/dL [facility] Creatinine 12.63(H) 0.60 - 1.10 mg/dL [facility] Glucose 99 70 - 199 mg/dL [facility] Comment: Interpretive Data Fasting glucose [...] interpretive data was last revised 2022. Calcium 8.1(L) 8.5 - 10.3 mg/dL [facility] Bilirubin, total 0.2 0.1 - 1.2 mg/dL [facility] Protein, pl 6.0(L) 6.5 - 8.5 g/dL [facility] Albumin 2.6(L) 3.5 - 5.0 g/dL [facility] Alk phos 59 40 - 130 Units/L [facility] ALT 14 7 - 45 Units/L [facility] AST 20 10 - 45 Units/L [facility] Blood 02/22/2025 2:05 AM CDT 02/22/2025 2:58 AM CDT Milton Rubio MD LAB BLOOD ORDERABLES Final Resul t [facility] [address] [facility] Department [place] [address] * ECG 12 lead (02/22/2025 1:45 AM CDT) Pathologist [facility] Ventricular Rate EKG/Min 137 BPM [facility] QRS-Interval (MSEC) 94 ms [facility] QT-Interval (MSEC) 316 ms [facility] QTc 477 ms [facility] R [place] -41 degrees [facility] T [place] 137 degrees [facility] Diagnosis Age and gender specific ECG analysis Sinus tachycardia Anteroseptal ST-elevation Poor R-wave progression in the precordial leads Left axis deviation Minimal voltage criteria for LVH, may be normal variant ( [place] product ) Anteroseptal infarct , possibly acute T wave abnormality, consider lateral ischemia Abnormal ECG No previous ECGs available Confirmed by HARJINDER HANDY M.D ([id number]) on 02/23/2025 3:10:53 PM [facility] 02/22/2025 1:45 AM CDT 02/23/2025 3:10 PM CDT us Jaimie Giordano MD ECG ORDERABLES Victoria l Result [facility] * (ABNORMAL) eGFR (02/21/2025 8:31 PM CDT) Pathologist [facility] eGFR 3(L) >=60 mL/min/1. 73 m2 Comment: [...] interpretive data was last reviewed 2021. Blood 02/21/2025 8:31 PM CDT 02/21/2025 9:23 PM CDT us Jaimie Giordano MD LAB BLOOD ORDERABLES Final Result Performing Organization Address City/[facility]/ZIP Co de Phone Number [facility] [place] [address] * Critical Result Callback Chemistry (02/21/2025 8:31 PM CDT) Date Notified [id number] Time Notified 2153 CAMERON DOMINGUEZ TestName Calcium CAMERON DOMINGUEZ Called/Read Back Jose DOMINGUEZ Credentials RN CAMERON DOMINGUEZ Called By PD CAMERON DOMINGUEZ Blood 02/21/2025 8:31 PM CDT 02/21/2025 9:23 PM CDT us Jaimie Giordano MD LAB BLOOD ORDERABLES Final Result Performing Organization Address City/[facility]/ZIP Co de Phone Number [facility] Department [place] [address] * Critical Result Callback Chemistry (02/21/2025 8:31 PM CDT) Date Notified [id number] Time Notified 2128 CAMERON DOMINGUEZ TestName Ca Ionized CAMERON DOMINGUEZ Called/Read Back Parminder DOMINGUEZ Credentials RN CAMERON DOMINGUEZ Called By PD CAMERON DOMINGUEZ Blood 02/21/2025 8:31 PM CDT 02/21/2025 9:00 PM CDT Ellie Saenz MD LAB BLOOD ORDERABLES Fin al Result Performing Organization Address City/[facility]/ZIP Co de Phone Number [facility] [place] [address] * (ABNORMAL) Calcium, ionized (02/21/2025 8:31 PM CDT) Calcium, Ionized 3.17(C) 4.50 - 5.10 mg/dL Blood 02/21/2025 8:31 PM CDT 02/21/2025 9:00 PM CDT Ellie Saenz MD LAB BLOOD ORDERABLES Fin al Result Performing Organization Address [facility] Co de Phone Number [facility] [place] [address] * (ABNORMAL) aPTT (02/21/2025 8:31 PM CDT) aPTT 52(H) 28 - 38 sec Comment: Interpretive Data Heparin therapeutic range: 66.0 - 100.0 seconds. Range based on correlation with therapeutic heparin activity range of 0.3 - 0.7 Units/mL. Current interpretive data was last revised on 2023. Blood 02/21/2025 8:31 PM CDT 02/21/2025 9:05 PM CDT Narrative [facility] - 02/21/2025 9:15 PM CDT STAT PTT timing: - Draw 6 hours after heparin infusion initiation - Draw 6 hours after every dose change until 2 consecutive PTTs are therapeutic - Once 2 consecutive PTTs are therapeutic, obtain with daily labs until infusion is discontinued - - Restart every 6 hour lab draws and follow instructions accordingly if PTT is outside of therapeutic range Do not draw lab from IV line that is actively infusing heparin. Use the opposite arm. If arm with actively infusing heparin must be used, pause the infusion for at least 2 minutes, and draw specimen below the IV site. For patients with a central venous catheter (CVC), lab must be drawn peripherally (not from CVC). Annabelle Fonseca MD LAB BLOOD ORDERABL ES Final Result Performing Organization Address [facility] Co de Phone Number [facility] [place] [address] * (ABNORMAL) Phosphorus (02/21/2025 8:31 PM CDT) [facility] Phosphorus, pl 8.4(H) 2.3 - 4.5 mg/dL Blood 02/21/2025 8:31 PM CDT 02/21/2025 9:00 PM CDT Jaimie Giordano MD LAB BLOOD ORDERABLES Final Result Performing Organization Address [facility] de Phone Number [facility] [place] [address] * Magnesium (02/21/2025 8:31 PM CDT) [facility] Magnesium 2.4 1.4 - 2.5 mg/dL Blood 02/21/2025 8:31 PM CDT 02/21/2025 9:00 PM CDT Jaimie Giordano MD LAB BLOOD ORDERABLES Final Result Performing Organization Address [facility] Co de Phone Number [facility] [place] [address] * (ABNORMAL) Basic metabolic panel (02/21/2025 8:31 PM CDT) [facility] Sodium 139 135 - 145 mmol/L Potassium, pl 4.6 3.3 - 4.9 mmol/L [facility] Chloride 94(L) 97 - 110 mmol/L [facility] CO2 27 22 - 32 mmol/L [facility] Anion gap 18(H) 2 - 15 mmol/L [facility] BUN 53(H) 6 - 25 mg/dL [facility] Creatinine 12.82(H) 0.60 - 1.10 mg/dL [facility] Glucose 82 70 - 199 mg/dL [facility] Comment: Interpretive Data Fasting glucose [...] interpretive data was last revised 2022. Calcium 6.4(C) 8.5 - 10.3 mg/dL [facility] [facility] Blood 02/21/2025 8:31 PM CDT 02/21/2025 9:00 PM CDT us Jaimie Giordano MD LAB BLOOD ORDERABLES Final Result Performing Organization Address City/[facility] de Phone Number [facility] Department [place] [address] * (ABNORMAL) aPTT (02/21/2025 11:39 AM CDT) aPTT 80(H) 28 - 38 sec Comment: Interpretive Data Heparin therapeutic range: 66.0 - 100.0 seconds. Range based on correlation with therapeutic heparin activity range of 0.3 - 0.7 Units/mL. Current interpretive data was last revised on 2023. Blood 02/21/2025 11:3 9 AM CDT 02/21/2025 12:32 PM CDT us Milton Rubio MD LAB BLOOD ORDERABLES Final Resul t Performing Organization Address City/[facility]/ZIP Co de Phone Number [facility] [place] [address] * (ABNORMAL) Troponin I high-sensitivity (02/21/2025 8:42 AM CDT) Trop I hs 2,752(C) <=17 ng/L Comment: Previous critical value noted within 48 hours ago. Interpretive Data For further hscTnI resources including the diagnostic algorithm and an aid in interpretation, copy and paste this link: [email or web address] Current Interpretive Data last revised 2020. Blood 02/21/2025 8:42 AM CDT 02/21/2025 9:24 AM CDT Ellie Saenz MD LAB BLOOD ORDERABLES Fin al Result Performing Organization Address [facility] Co de Phone Number [facility] [place] [address] * Thyroid Function [place] (02/21/2025 8:42 AM CDT) Pathologist [facility] TSH 1.88 0.30 - 4.20 mcIUnit/mL Blood 02/21/2025 8:42 AM CDT 02/21/2025 9:24 AM CDT Ellie Saenz MD LAB BLOOD ORDERABLES Fin al Result Performing Organization Address [facility]/ZIP Co de Phone Number [facility] [place] [address] * (ABNORMAL) Troponin I high-sensitivity 6-hour (02/21/2025 4:51 AM CDT) Trop I hs 3,175(C) <=17 ng/L Comment: Previous critical value noted within 48 hours ago. Interpretive Data For further hscTnI resources including the diagnostic algorithm and an aid in interpretation, copy and paste this link: [email or web address]/show/[email or web address] Current Interpretive Data last revised 2020. Trop I hs pct delta -25(C) % [facility] Comment:Previous critical va lue noted within 48 hours ago. Trop I hs interp Significa nt(C) [facility] Comment:Previous critical va lue noted within 48 hours ago. Blood 02/21/2025 4:51 AM CDT 02/21/2025 5:32 AM CDT us Jaimie Giordano MD LAB BLOOD ORDERABLES Final Result Performing Organization Address [facility] de Phone Number [facility] [place] [address] * (ABNORMAL) aPTT (02/21/2025 4:51 AM CDT) aPTT 82(H) 28 - 38 sec Comment: Interpretive Data Heparin therapeutic range: 66.0 - 100.0 seconds. Range based on correlation with therapeutic heparin activity range of 0.3 - 0.7 Units/mL. Current interpretive data was last revised on 2023. Blood 02/21/2025 4:51 AM CDT 02/21/2025 5:31 AM CDT Milton Rubio MD LAB BLOOD ORDERABLES Final Resul t Performing Organization Address [facility] de Phone Number [facility] [place] [address] * (ABNORMAL) Troponin I high-sensitivity 4-hour (02/21/2025 2:18 AM CDT) Trop I hs 2,937(C) <=17 ng/L Comment: Previous critical value noted within 48 hours ago. Interpretive Data For further hscTnI resources including the diagnostic algorithm and an aid in interpretation, copy and paste this link: [email or web address].testcatalog.org/show/[email or web address] Current Interpretive Data last revised 2020. Trop I hs pct delta -31(C) % [facility] Comment:Previous critical va lue noted within 48 hours ago. Trop I hs interp Significa nt(C) [facility] Comment:Previous critical va lue noted within 48 hours ago. Blood 02/21/2025 2:18 AM CDT 02/21/2025 2:49 AM CDT Jaimie Giordano MD LAB BLOOD ORDERABLES Final Result Performing Organization Address City/[facility]/ZIP Co de Phone Number CAM[facility] [place] [address] * (ABNORMAL) Troponin I high-sensitivity 2-hour (02/20/2025 11:27 PM CDT) [facility] Trop I hs 3,312(C) <=17 ng/L Comment: Previous critical value noted within 48 hours ago. Interpretive Data For further [facility] resources including the diagnostic algorithm and an aid in interpretation, copy and paste this link: [email or web address].[email or web address]/show/[email or web address] Current Interpretive Data last revised 2020. Trop I hs delta See Comment ng/L [facility] Comment:Inappropriate collec tion time to report a delta. Trop I hs pct delta See Comment % [facility] Comment:Inappropriate collec tion time to report a delta. Trop I hs interp See Comment [facility] Comment:Inappropriate collec tion time to report a delta. Blood 02/20/2025 11:2 7 PM CDT 02/21/2025 12:31 AM CDT Jaimie Giordano MD LAB BLOOD ORDERABLES Final Result Performing Organization Address City/[facility] Co de Phone Number [facility] [place] [address] * (ABNORMAL) Troponin I high-sensitivity series (baseline, 2hr, 4hr, 6hr) (02/20/2025 10:03 PM CDT) Trop I hs 4,242(C) <=17 ng/L Comment: Interpretive Data For further hscTnI resources including the diagnostic algorithm and an aid in interpretation, copy and paste this link: [email or web address].testcatalog.org/show/[email or web address] Current Interpretive Data last revised 2020. Blood 02/20/2025 10:0 3 PM CDT 02/20/2025 10:50 PM CDT us Jaimie Giordano MD LAB BLOOD ORDERABLES Final Result Performing Organization Address City/[facility]/ZIP Co de Phone Number [facility] [place] [address] * Lactate (02/20/2025 10:03 PM CDT) Pathologist [facility] Lactate 1.3 0.7 - 2.0 mmol/L Blood 02/20/2025 10:0 3 PM CDT 02/20/2025 10:50 PM CDT us Milton Rubio MD LAB BLOOD ORDERABLES Final Resul t Performing Organization Address [facility] Co de Phone Number [facility] Department [place] [address] * Critical result callback Cardio chemistry (02/20/2025 10:03 PM CDT) Date Notified [id number] Time Notified [id number] [facility] Test name Trop I hs base [facility] Called/Read Back Srinath BARNES [facility] Credentials RN CAMERON DOMINGUEZ Called By NELSON BARNES [facility] Blood 02/20/2025 10:0 3 PM CDT 02/20/2025 10:50 PM CDT us Jaimie Giordano MD LAB BLOOD ORDERABLES Final Result Performing Organization Address City/[facility]/ZIP Co de Phone Number [facility] Department [place] [address] * (ABNORMAL) eGFR (02/20/2025 10:03 PM CDT) eGFR 3(L) >=60 mL/min/1. 73 m2 [...] interpretive data was last reviewed 2021. Blood 02/20/2025 10:0 3 PM CDT 02/20/2025 10:50 PM CDT Jaimie Giordano MD LAB BLOOD ORDERABLES Final Result [facility] [place] [address] * (ABNORMAL) aPTT (02/20/2025 10:03 PM CDT) aPTT 45(H) 28 - 38 sec Comment: Interpretive Data Heparin therapeutic range: 66.0 - 100.0 seconds. Range based on correlation with therapeutic heparin activity range of 0.3 - 0.7 Units/mL. Current interpretive data was last revised on 2023. Blood 02/20/2025 10:0 3 PM CDT 02/20/2025 10:54 PM CDT Narrative [facility] - 02/20/2025 11:03 PM CDT Baseline prior to heparin initiation Jaimie Giordano MD LAB BLOOD ORDERABLES Final Result Performing Organization Address [facility] de Phone Number [facility] [place] [address] * Protime-INR (02/20/2025 10:03 PM CDT) Pathologist [facility] PT 11.7 9.7 - 13.0 sec INR 1.08 0.90 - 1.20 [facility] Comment: Interpretive data Oral anticoagulant therapeutic ranges: Venous thromboembolism prophylaxis or treatment: 2.0-3.0 CARDIOLOGY Standard range: 2.0-3.0 High-intensity range: 2.5-3.5 Refer to indication-specific guidelines for appropriate target ranges for prosthetic heart valve replacement. Current interpretive data was last revised on 2019. Blood 02/20/2025 10:0 3 PM CDT 02/20/2025 10:54 PM CDT Narrative [facility] - 02/20/2025 11:03 PM CDT Baseline prior to heparin initiation Jaimie Giordano MD LAB BLOOD ORDERABLES Final Result Performing Organization Address [facility] de Phone Number [facility] [place] [address] * (ABNORMAL) CBC without differential (02/20/2025 10:03 PM CDT) WBC 5.88 3.80 - 9.90 K/cumm Hgb 13.0 11.9 - 15.5 g/dL [facility] Hct 41.0 35.6 - 45.5 % [facility] Plt 178 150 - 400 K/cumm [facility] MPV 10.6 9.1 - 12.3 fL [facility] RBC 4.60 3.90 - 5.20 M/cumm [facility] MCV 89.1 81.3 - 96.4 fL [facility] MCH 28.3 27.1 - 33.3 pg [facility] MCHC 31.7(L) 32.3 - 35.7 g/dL [facility] RDW CV 15.3(H) 11.1 - 14.9 % [facility] RDW SD 49.6(H) 35.7 - 48.1 fL [facility] NRBC abs 0.00 0.00 - 0.01 K/cumm [facility] Blood 02/20/2025 10:0 3 PM CDT 02/20/2025 10:50 PM CDT Narrative [facility] - 02/20/2025 11:02 PM CDT Baseline prior to heparin initiation Jaimie Giordano MD LAB BLOOD ORDERABLES Final Result Performing Organization Address City/[facility]/ZIP Co de Phone Number [facility] [place] [address] * (ABNORMAL) Phosphorus (02/20/2025 10:03 PM CDT) Phosphorus, pl 9.2(H) 2.3 - 4.5 mg/dL Blood 02/20/2025 10:0 3 PM CDT 02/20/2025 10:50 PM CDT Jaimei Giordano MD LAB BLOOD ORDERABLES Final Result [facility] [place] [address] * (ABNORMAL) Magnesium (02/20/2025 10:03 PM CDT) Magnesium 2.8(H) 1.4 - 2.5 mg/dL Blood 02/20/2025 10:0 3 PM CDT 02/20/2025 10:50 PM CDT Jaimie Giordano MD LAB BLOOD ORDERABLES Final Result [facility] [address] [place] [address] * (ABNORMAL) Lipid panel (02/20/2025 10:03 PM CDT) Cholesterol 197 30 - 199 mg/dL Comment: Interpretive Data Ages < or = 19 years Acceptable: <170 mg/dL Borderline high: 170-199 mg/dL High: >or= 200 mg/dL Ages > or = 20 years Desirable: <200 mg/dL Borderline high: 200-239 mg/dL High: >or= 240 mg/dL Literature References: 1. Expert Panel on Integrated Guidelines for Cardiovascular Health and Risk Reduction in Children and Adolescents. Pediatrics 2011;128:S213 2. NCEP Expert Panel. Circulation 2004;110:227 Current Interpretive Data was last revised on 2018. Triglycerides 166(H) <=149 mg/dL [facility] Comment: Interpretive Data Ages < or = 9 years Acceptable: <75 mg/dL Borderline high: 75-99 mg/dL High: >or= 100 mg/dL Ages 10 to 20 years Acceptable: <90 mg/dL Borderline high: 90-129 mg/dL High: >or= 130 mg/dL Ages > or = 20 years Desirable: <150 mg/dL Borderline high: 150-199 mg/dL High: 200-499 mg/dL Very high: >or= 499 mg/dL Literature References: 1. Expert Panel on Integrated Guidelines for Cardiovascular Health and Risk Reduction in Children and Adolescents. Pediatrics 2011;128:S213 2. NCEP Expert Panel. Circulation 2004;110:227 Current Interpretive Data was last revised on 2018. HDL 34(L) >=40 mg/dL [facility] Comment: Interpretive Data Ages < or = 19 years Acceptable: >45 mg/dL Borderline low: 40-45 mg/dL Low: <40 mg/dL Ages > or = 20 years Desirable: >or= 60 mg/dL Low: <40 mg/dL Literature References: 1. Expert Panel on Integrated Guidelines for Cardiovascular Health and Risk Reduction in Children and Adolescents. Pediatrics 2011;128:S213 2. NCEP Expert Panel. Circulation 2004;110:227 Current Interpretive Data was last revised on 2018. LDL, calculated 133(H) <=129 mg/dL [facility] Comment: Interpretive Data Ages < or = 19 years Acceptable: <110 mg/dL Borderline high: 110-129 mg/dL High: >or= 130 mg/dL Ages > or = 20 years Optimal: <100 mg/dL Near optimal: 100-129 mg/dL Borderline high: 130-159 mg/dL High: >160 mg/dL Calculated using the Bill LDL-C estimating equation. This equation was implemented on 2024. Prior to this date LDL-C was estimated using the Friedewald equation. Literature References: 1. Expert Panel on Integrated Guidelines for Cardiovascular Health and Risk Reduction in Children and Adolescents. Pediatrics 2011;128:S213 2. NCEP Expert Panel. Circulation 2004;110:227 3. Bill Lyn et al. ANANTH Cardiol. 2019February 18;5(5):540-548. doi: [email or web address] Current Interpretive Data was last revised on 2024. Non-HDL Cholesterol 163 mg/dL [facility] Comment: Interpretive Data Ages < or = 19 years Acceptable: <120 mg/dL Borderline high: 120-144 mg/dL High: >145 mg/dL Ages > or = 20 years When triglycerides are >200 mg/dL, Non-HDL cholesterol is a secondary target of therapy with treatment goals that are 30 mg/dL greater than the LDL cholesterol target. Literature References: 1. Expert Panel on Integrated Guidelines for Cardiovascular Health and Risk Reduction in Children and Adolescents. Pediatrics 2011;128:S213 2. NCEP Expert Panel. Circulation 2004;110:227 Current Interpretive Data was last revised on 2018. Chol/HDL ratio 6 [facility] Blood 02/20/2025 10:0 3 PM CDT 02/20/2025 10:50 PM CDT us Jaimie Giordano MD LAB BLOOD ORDERABLES Final Result NONALARA [facility] [address] [place] [address] * (ABNORMAL) Comprehensive metabolic panel (02/20/2025 10:03 PM CDT) Sodium 138 135 - 145 mmol/L Potassium, pl 4.6 3.3 - 4.9 mmol/L [facility] Chloride 92(L) 97 - 110 mmol/L [facility] CO2 23 22 - 32 mmol/L [facility] Anion gap 23(H) 2 - 15 mmol/L [facility] BUN 55(H) 6 - 25 mg/dL [facility] Creatinine 13.60(H) 0.60 - 1.10 mg/dL [facility] Glucose 101 70 - 199 mg/dL [facility] Comment: Interpretive Data Fasting glucose [...] 2022. Calcium 6.9(L) 8.5 - 10.3 mg/dL [facility] Bilirubin, total 0.2 0.1 - 1.2 mg/dL [facility] Protein, pl 7.1 6.5 - 8.5 g/dL [facility] Albumin 3.2(L) 3.5 - 5.0 g/dL [facility] Alk phos 74 40 - 130 Units/L [facility] ALT 16 7 - 45 Units/L [facility] AST 30 10 - 45 Units/L [facility] Blood 02/20/2025 10:0 3 PM CDT 02/20/2025 10:50 PM CDT us Jaimie Giordano MD LAB BLOOD ORDERABLES Final Result [facility] [address] [place] [address] * ECG 12 lead (02/20/2025 9:19 PM CDT) Pathologist [facility] Ventricular Rate EKG/Min 72 BPM [facility] Atrial Rate 72 BPM [facility] AK-Interval (MSEC) 120 ms [facility] QRS-Interval (MSEC) 96 ms [facility] QT-Interval (MSEC) 440 ms [facility] QTc 481 ms [facility] P [place] 92 degrees [facility] R [place] -31 degrees [facility] T [place] 140 degrees [facility] Diagnosis Sinus rhythm with Premature atrial complexes Left axis deviation Incomplete right bundle branch block Minimal voltage criteria for LVH, may be normal variant ( [place] product ) Anteroseptal infarct , age undetermined T wave abnormality, consider lateral ischemia Abnormal ECG atrial-paced complexes When compared with ECG of 20-FEB-2025 15:12, (unconfirmed) Premature atrial complexes are now Present Anteroseptal infarct is now Present Confirmed by HARJINDER HANDY M.D ([id number]) on 02/23/2025 12:46:43 PM [facility] 02/20/2025 9:19 PM CDT 02/23/2025 12:46 PM CDT Jaimie Giordano MD ECG ORDERABLES Victoria becerra Result [facility] * (ABNORMAL) Troponin T high-sensitivity 6-hour (02/20/2025 5:36 PM CDT) [facility] Trop T hs 911(C) <=14 ng/L Comment: Critical Result called to and read back by Parminder [email or web address], DATE: 2025-02-20 18:15:52 BY: [email or web address] Interpretive Data For further hscTnT resources including the diagnostic algorithm and an aid in interpretation, copy and paste this link: https://nrl.testcatalog.org/show/hsTrop Current Interpretive Data last revised 2020. Trop T hs interp Significa nt(C) [facility] Comment:Critical Result call ed to and read back by Parminder [email or web address], DATE: 2025-02-20 18:15:52 BY: [email or web address] Blood 02/20/2025 5:36 PM CDT 02/20/2025 5:45 PM CDT Khanh Cm Zavalahu DO LAB BLOOD ORDERABLES Final Result Performing Organization Address City/[facility]/ZIP Co de Phone Number [facility] [address] [place] [address] * (ABNORMAL) eGFR (02/20/2025 5:36 PM CDT) [facility] eGFR 3(L) >=60 mL/min/1. 73 m2 [...] interpretive data was last reviewed 2021. Blood 02/20/2025 5:36 PM CDT 02/20/2025 5:45 PM CDT Khanh Shankar DO LAB BLOOD ORDERABLES Final Result Performing Organization Address City/[facility]/ZIP Co de Phone Number [facility] [address] Department [place] [address] * Heparin anti factor Xa activity (02/20/2025 5:36 PM CDT) Anti Factor Xa <0.10 IUnits/mL Comment: Interpretive Data Enoxaparin therapeutic range (peak): VTE treatment, Q12hr dosin.60-1.00 IUnits/mL VTE treatment, Q24hr dosin.00-2.00 IUnits/mL Q24hr dosing for renal impairment (CrCl <30 mL/min): 0.60-1.00 IUnits/mL VTE prevention: 0.10-0.40 IUnits/mL - Anti-Xa therapeutic ranges apply to blood samples drawn 4 hours after last dose (peak). - Unfractionated heparin (UFH) therapeutic range: 0.30-0.70 IUnits/mL - Direct factor Xa inhibitors (rivaroxaban, apixaban): Results must be interpreted qualitatively. No activity detected suggests little anticoagulant activity. - In severe antithrombin deficiency, anti-Xa measurement may be inaccurate. - Interpretive guidelines developed in adult populations. Interpretive guidelines for pediatric patients have not been rigorously defined. - Current interpretive data was last revised on 2019. Blood 02/20/2025 5:36 PM CDT 02/20/2025 5:45 PM CDT Narrative [facility] - 02/20/2025 6:39 PM CDT Baseline prior to heparin initiation Khanh Shankar DO LAB BLOOD ORDERABLES Final Result [facility] [address] [facility] Department of Laboratories [place], [place] [id number] * Hepatitis B surface antibody (immune status) Blood (02/20/2025 5:36 PM CDT) Pathologist [facility] HBsAb (immune status) Nonreactive Comment: Interpretive Data Nonreactive: This result is consistent with a lack of immunity to Hepatitis B Virus when used in the setting of routine screening. Equivocal: The immune status of the individual should be further assessed, if appropriate, after consideration of clinical status, risk factors, and additional diagnostic information. Reactive: This result is consistent with immunity to Hepatitis B Virus when used in the setting of routine screening. Current interpretive data was last revised on 20. Blood 02/20/2025 5:36 PM CDT 02/20/2025 5:45 PM CDT Girish Maya MD LAB MICROBIOLOGY - GENERAL ORDERABLES Final Result Performing Organization Address [facility] Co de Phone Number [address] [place] [address] * Hepatitis B Surface Antigen Blood (02/20/2025 5:36 PM CDT) HepBsAg Nonreactive Nonreactive Blood 02/20/2025 5:36 PM CDT 02/20/2025 5:45 PM CDT Girish Maya MD LAB MICROBIOLOGY - GENERAL ORDERABLES Final Result Performing Organization Address [facility] de Phone Number [address] [address] * (ABNORMAL) Protime-INR (02/20/2025 5:36 PM CDT) PT 15.2(H) 12.0 - 14.6 sec Comment:Ref Range High INR 1.2 0.9 - 1.2 [facility] Comment: Ref Range High Interpretive data Oral anticoagulant therapeutic ranges: Venous thromboembolism prophylaxis or treatment: 2.0-3.0 CARDIOLOGY Standard range: 2.0-3.0 High-intensity range: 2.5-3.5 Refer to indication-specific guidelines for appropriate target ranges for prosthetic heart valve replacement. Current interpretive data was last revised on 2019. Blood 02/20/2025 5:36 PM CDT 02/20/2025 5:45 PM CDT Kahnh Shankar DO LAB BLOOD ORDERABLES Final Result Performing Organization Address [facility] Co de Phone Number [address] [place] [address] * (ABNORMAL) CBC without differential (02/20/2025 5:36 PM CDT) [facility] WBC 5.51 3.80 - 9.90 K/cumm Hgb 12.1 11.9 - 15.5 g/dL [facility] Hct 38.4 35.6 - 45.5 % [facility] Plt 153 150 - 400 K/cumm [facility] MPV 10.5 9.1 - 12.3 fL [facility] RBC 4.30 3.90 - 5.20 M/cumm [facility] MCV 89.3 81.3 - 96.4 fL [facility] MCH 28.1 27.1 - 33.3 pg [facility] MCHC 31.5(L) 32.3 - 35.7 g/dL [facility] RDW CV 15.1(H) 11.1 - 14.9 % [facility] RDW SD 49.1(H) 35.7 - 48.1 fL [facility] NRBC abs 0.00 0.00 - 0.01 K/cumm [facility] Blood 02/20/2025 5:36 PM CDT 02/20/2025 5:45 PM CDT Narrative [facility] - 02/20/2025 5:48 PM CDT Baseline prior to heparin initiation Khanh Shankar DO LAB BLOOD ORDERABLES Final Result [facility] [address] [facility] Department [place] [address] * (ABNORMAL) Basic metabolic panel (02/20/2025 5:36 PM CDT) [facility] Sodium 136 135 - 145 mmol/L Potassium, pl 5.8(H) 3.3 - 4.9 mmol/L [facility] Comment:Delta - Results Revi ewed Chloride 94(L) 97 - 110 mmol/L [facility] CO2 23 22 - 32 mmol/L [facility] Anion gap 19(H) 2 - 15 mmol/L [facility] BUN 55(H) 6 - 25 mg/dL [facility] Creatinine 13.90(H) 0.60 - 1.10 mg/dL [facility] Glucose 87 70 - 199 mg/dL [facility] Comment: Interpretive Data Fasting glucose >/= 126 [...] interpretive data was last revised 2022. Calcium 6.7(L) 8.5 - 10.3 mg/dL [facility] Blood 02/20/2025 5:36 PM CDT 02/20/2025 5:45 PM CDT Khanh Shankar DO LAB BLOOD ORDERABLES Final Result Performing Organization Address City/State/[facility] Co de Phone Number [facility] [address] [facility] Department [place] [address] * ECG 12 lead (02/20/2025 3:12 PM CDT) [facility] Ventricular Rate EKG/Min 72 BPM [facility] Atrial Rate 72 BPM [facility] AK-Interval (MSEC) 106 ms [facility] QRS-Interval (MSEC) 92 ms [facility] QT-Interval (MSEC) 450 ms [facility] QTc 492 ms [facility] P [place] 79 degrees [facility] R [place] -40 degrees [facility] T [place] 133 degrees [facility] Diagnosis Sinus rhythm with sinus arrhythmia with short AK Left axis deviation T wave abnormality, consider lateral ischemia Prolonged QT Abnormal ECG When compared with ECG of 20-FEB-2025 15:07, Sinus rhythm has replaced Atrial fibrillation Confirmed by MD MIKE, HENRY ([id number]) on 02/21/2025 5:43:47 PM [facility] 02/20/2025 3:12 PM CDT 02/21/2025 5:43 PM CDT Khanh Shankar DO ECG ORDERABLES Final Resul t Performing Organization Address City/[facility] Co de Phone Number [facility] * ECG 12 lead (02/20/2025 3:07 PM CDT) Ventricular Rate EKG/Min 68 BPM [facility] Atrial Rate 67 BPM [facility] QRS-Interval (MSEC) 84 ms [facility] QT-Interval (MSEC) 454 ms [facility] QTc 482 ms [facility] R [place] -39 degrees [facility] T [place] 119 degrees [facility] Diagnosis Suspect unspecified pacemaker failure Atrial fibrillation Left axis deviation Anterior infarct (cited on 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-MAY-2024) T wave abnormality, consider lateral ischemia Abnormal ECG When compared with ECG of 20-FEB-2025 10:47, Atrial fibrillation has replaced Sinus rhythm Confirmed by MD MIKE, HENRY ([id number]) on 02/21/2025 5:43:35 PM [facility] 02/20/2025 3:07 PM CDT 02/21/2025 5:43 PM CDT Khanh Shankar DO ECG ORDERABLES Final Resul t Performing Organization Address [facility] de Phone Number [facility] * (ABNORMAL) Troponin T high-sensitivity 4-hour (02/20/2025 2:55 PM CDT) Trop T hs 834(C) <=14 ng/L Comment: Critical Result called to and read back by Niko [email or web address], DATE: 2025-02-20 15:27:21 BY: [email or web address] Interpretive Data For further hscTnT resources including the diagnostic algorithm and an aid in interpretation, copy and paste this link: https://nrl.testcatalog.org/show/hsTrop Current Interpretive Data last revised 2020. Trop T hs pct delta 36(C) % CAMERON LEIJA Comment:Critical Result call ed to and read back by Niko [email or web address], DATE: 2025-02-20 15:27:21 BY: [email or web address] Trop T hs interp Significa nt(C) CAMERON LEIJA Comment:Critical Result call ed to and read back by Niko [email or web address], DATE: 2025-02-20 15:27:21 BY: [email or web address] Blood 02/20/2025 2:55 PM CDT 02/20/2025 2:57 PM CDT Khanh Shankar LAB BLOOD ORDERABLES Final Result [facility] [address] [facility] Department [place] [address] * Blood culture Blood (02/20/2025 2:33 PM CDT) Report Final Report: No growth Comment:Testing performed by : [facility], [address] [place]., [address] Blood 02/20/2025 2:33 PM CDT 02/20/2025 6:26 PM CDT Narrative CAMERON - 02/25/2025 7:00 AM CDT From a different site than #1. Collection->Peripheral 1. Blood cultures are incubated for 4 days on a continuously monitored blood culture system. The first report of a negative culture is issued within 24 hours of receipt of the specimen in the laboratory. 2. Positive culture results are reported as soon as they are detected. 3. The most important factor for detection of microbes in the setting of bloodstream infection is the volume of blood submitted for culture. Failure to collect an optimal blood volume can result in false negative blood cultures. 4. For pediatric patients, the recommended blood volume to collect follows a weight based strategy. See the electronic test catalog for collection instructions. 5. For positive blood cultures, a rapid molecular test may be performed for organism identification using the estelle ePlex blood culture identification panel for gram positive (BCID-GP) and gram negative (BCID-GN) organisms. This nucleic acid amplification test detects microbial DNA in positive blood culture broth. This assay has been cleared by the [place] Food and Drug Administration and its performance characteristics have been verified by the [facility]. For questions about this culture, contact the Microbiology Laboratory at [phone]. Interpretive data was last revised on 24. Khanh Shankar LAB MICROBIOLOGY - GENERAL ORDERABLES Final Result Performing Organization Address City/[facility]/ZIP Co de Phone Number [facility] [place] [address] * Blood culture Blood (02/20/2025 2:23 PM CDT) Report Final Report: No growth Comment:Testing performed by : [facility], [address] [place]., [address] Blood 02/20/2025 2:23 PM CDT 02/20/2025 6:26 PM CDT Narrative CAMERON - 02/25/2025 7:00 AM CDT Collection->Peripheral 1. Blood cultures are incubated for 4 days on a continuously monitored blood culture system. The first report of a negative culture is issued within 24 hours of receipt of the specimen in the laboratory. 2. Positive culture results are reported as soon as they are detected. 3. The most important factor for detection of microbes in the setting of bloodstream infection is the volume of blood submitted for culture. Failure to collect an optimal blood volume can result in false negative blood cultures. 4. For pediatric patients, the recommended blood volume to collect follows a weight based strategy. See the electronic test catalog for collection instructions. 5. For positive blood cultures, a rapid molecular test may be performed for organism identification using the estelle ePlex blood culture identification panel for gram positive (BCID-GP) and gram negative (BCID-GN) organisms. This nucleic acid amplification test detects microbial DNA in positive blood culture broth. This assay has been cleared by the [place] Food and Drug Administration and its performance characteristics have been verified by the [facility]. For questions about this culture, contact the Microbiology Laboratory at [phone]. Interpretive data was last revised on 24. Khanh Shankar [facility] MICROBIOLOGY - GENERAL ORDERABLES Final Result Performing Organization Address City/[facility]/ZIP Co de Phone Number CAMERON [place] [facility] [place] [address] * (ABNORMAL) Troponin T high-sensitivity 2-hour (02/20/2025 2:02 PM CDT) Trop T hs 785(C) <=14 ng/L Comment: Critical Result called to and read back by Cecilia [email or web address], DATE: 2025-02-20 14:27:31 BY: [email or web address] Interpretive Data For further hscTnT resources including the diagnostic algorithm and an aid in interpretation, copy and paste this link: https://nrl.testcatalog.org/show/hsTrop Current Interpretive Data last revised 2020. Trop T hs delta See Comment ng/L CAMERON LEIJA Comment:Inappropriate collec tion time to report a delta. Trop T hs pct delta See Comment % CAMERON Comment:Inappropriate collec tion time to report a delta. Trop T hs interp See Comment CAMERON Comment:Inappropriate collec tion time to report a delta. Blood 02/20/2025 2:02 PM CDT 02/20/2025 2:03 PM CDT Khanh Shankar DO LAB BLOOD ORDERABLES Final Result [place] [address] [facility] Department [place] [address] * CT Chest WO Contrast (02/20/2025 1:06 PM CDT) Anatomical Region Laterality Modality Body N/A Computed Tomogra phy 02/20/2025 1:16 PM CDT Narrative 02/20/2025 1:47 PM CDT EXAM DESCRIPTION: CT CHEST WO CONTRAST REASON FOR STUDY: Respiratory illness, nondiagnostic xray BIBEMS due to Right sided chest pain. Patient has a hx of pacemaker, stents, and peritoneal dialysis. Hx of polycystic kidney disease. Took 1 nitrol prior to arrival. Reports hx of continues SOB, Recently finished Zpak for Penumonia. Reports Increase SOB with movement. Aortic valve replacement, pacemaker, coronary artery bypass, thoracotomy, no known ca TECHNIQUE: CT scan of the chest performed without intravenous contrast using helical scanning technique. Reconstructed coronal and sagittal MPR images reviewed. All images stored on PACS. Automated exposure control was used as a dose optimization technique for this examination. COMPARISON: CT of the chest, dated 06/07/2021. FINDINGS: The sensitivity for detection of solid visceral lesions is diminished without the use of intravenous contrast. LUNGS: Patchy airspace and interstitial opacities within the left lower lobe. Volume loss noted on the left. There is also mild ground-glass opacities and interstitial thickening involving the right lower lobe. PLEURA: Small layering left pleural effusion. MEDIASTINUM/SARA: Prominence of the left hilar region which may be related to lymphadenopathy although lack of contrast limits evaluation. A perihilar mass is difficult to exclude. Postsurgical changes of thyroidectomy. HEART: Heart size is normal with no pericardial effusion. Postoperative changes of median sternotomy a aortic valve repair are noted. CORONARY ARTERY CALCIFICATION: Coronary calcifications are noted. VASCULATURE: No thoracic aortic aneurysm. AXILLA: No adenopathy. CHEST WALL: No masses. No subcutaneous air. Bilateral breast implants are noted. HARDWARE/LINES/TUBES: A right-sided dual lead cardiac pacer device is noted in place. UPPER ABDOMEN: Numerous hepatic lesions are seen are seen throughout the liver with some calcification seen within the right hepatic lobe, compatible with polycystic disease. Perihepatic abdominal ascites. Multiple prominent lymph nodes are seen within the upper abdomen. MUSCULOSKELETAL: No acute abnormality. S shaped curvature of the thoracolumbar spine. Multilevel degenerative changes of the spine. OTHER: No other significant abnormality. IMPRESSION: 1. Left pleural effusion with bilateral airspace and interstitial opacities, greater on the left, nonspecific. Findings may be related to fluid overload/pulmonary edema; however infection or underlying malignancy is not excluded. Recommend clinical correlation and consider short interval follow-up CT in 2-3 months for further evaluation as warranted. 2. Additional findings; as detailed.. THIS IS AN ELECTRONICALLY VERIFIED FINAL REPORT 02/20/2025 1:47 PM - Electronically signed by Rc Cody M.D. T: Report ID: [id number] Reading Location: [id number] Procedure Note Rc Cody, DO - 02/20/2025 EXAM DESCRIPTION: CT CHEST WO CONTRAST REASON FOR STUDY: Respiratory illness, nondiagnostic xray BIBEMS due to Right sided chest pain. Patient has a hx of pacemaker,stents, and peritoneal dialysis. Hx of polycystic kidney disease. Took 1 nitrolprior to arrival. Reports hx of continues SOB, Recently finished Zpak forPenumonia. Reports Increase SOB with movement. Aortic valve replacement,pacemaker, coronary artery bypass, thoracotomy, no known ca TECHNIQUE: CT scan of the chest performed without intravenous contrastusing helical scanning technique. Reconstructed coronal and sagittal MPR images reviewed. All images stored on PACS. Automated exposure control was usedas a dose optimization technique for this examination. COMPARISON: CT of the chest, dated 06/07/2021. FINDINGS: The sensitivity for detection of solid visceral lesions is diminished without the use of intravenous contrast. LUNGS: Patchy airspace and interstitial opacities within the left lower lobe. Volume loss noted on the left. There is also mild ground-glass opacities and interstitial thickening involving the right lower lobe. PLEURA: Small layering left pleural effusion. MEDIASTINUM/SARA: Prominence of the left hilar region which may berelated to lymphadenopathy although lack of contrast limits evaluation. Aperihilar mass is difficult to exclude. Postsurgical changes of thyroidectomy. HEART: Heart size is normal with no pericardial effusion.Postoperative changes of median sternotomy a aortic valve repair are noted. CORONARY ARTERY CALCIFICATION: Coronary calcifications are noted. VASCULATURE: No thoracic aortic aneurysm. AXILLA: No adenopathy. CHEST WALL: No masses. No subcutaneous air. Bilateral breast implantsare noted. HARDWARE/LINES/TUBES: A right-sided dual lead cardiac pacer device isnoted in place. UPPER ABDOMEN: Numerous hepatic lesions are seen are seen throughout the liver with some calcification seen within the right hepatic lobe,compatible with polycystic disease. Perihepatic abdominal ascites. Multipleprominent lymph nodes are seen within the upper abdomen. MUSCULOSKELETAL: No acute abnormality. S shaped curvature of the thoracolumbar spine. Multilevel degenerative changes of the spine. OTHER: No other significant abnormality. IMPRESSION: 1. Left pleural effusion with bilateral airspace and interstitial opacities, greater on the left, nonspecific. Findings may be related to fluid overload/pulmonary edema; however infection or underlying malignancy is not excluded. Recommend clinical correlation and consider short interval follow-up CT in 2-3 months for further evaluation aswarranted. 2. Additional findings; as detailed.. THIS IS AN ELECTRONICALLY VERIFIED FINAL REPORT 02/20/2025 1:47 PM - Electronically signed by Rc Cody M.D. T: Report ID: [id number] Reading Location: [id number] Khanh Shankar DO IMG CT PROCEDURES Final Res ult * XR Chest 1 Vw Portable (02/20/2025 10:55 AM CDT) Anatomical Region Laterality Modality Body, Chest N/A Computed Radiogr aphy 02/20/2025 11:1 0 AM CDT Narrative 02/20/2025 11:19 AM CDT EXAM DESCRIPTION: XR CHEST 1 VIEW REASON FOR STUDY: chest pain Patient chart states: BIBEMS due to Right sided chest pain. Patient has a hx of pacemaker, stents, and peritoneal dialysis. Hx of polycystic kidney disease. Took 1 nitrol prior to arrival. Reports hx of continues SOB, Recently finished Zpak for Penumonia. Reports Increase SOB with movement. VSS. TECHNIQUE: Frontal radiographic view(s) of the chest. COMPARISON: Chest radiograph dated 01/28/2025. FINDINGS: LUNGS: Bilateral hyperinflation of the lungs. Patchy left basilar airspace opacities with possible small left pleural effusion. HEART/MEDIASTINUM: Cardiomegaly with prominence of the central pulmonary vasculature mediastinal and hilar contours appear normal. LINES/TUBES: Postoperative changes of median sternotomy, CABG, and aortic valve repair. A dual lead right-sided cardiac pacing device is noted in place. BONES: No acute osseous abnormality. IMPRESSION: Mild patchy left basilar airspace opacities with possible small left pleural effusion concerning for pneumonia in the appropriate clinical setting. Recommend clinical correlation and follow-up imaging to document resolution. THIS IS AN ELECTRONICALLY VERIFIED FINAL REPORT 02/20/2025 11:19 AM - Electronically signed by Rc Cody M.D. T: Report ID: [id number] Reading Location: [id number] Procedure Note Rc Cody DO - 02/20/2025 EXAM DESCRIPTION: XR CHEST 1 VIEW REASON FOR STUDY: chest pain Patient chart states: BIBEMS due to Right sided chest pain. Patient hasa hx of pacemaker, stents, and peritoneal dialysis. Hx of polycystic kidney disease. Took 1 nitrol prior to arrival. Reports hx of continues SOB,Recently finished Zpak for Penumonia. Reports Increase SOB with movement. VSS. TECHNIQUE: Frontal radiographic view(s) of the chest. COMPARISON: Chest radiograph dated 01/28/2025. FINDINGS: LUNGS: Bilateral hyperinflation of the lungs. Patchy leftbasilar airspace opacities with possible small left pleural effusion. HEART/MEDIASTINUM: Cardiomegaly with prominence of the central pulmonary vasculature mediastinal and hilar contours appear normal. LINES/TUBES: Postoperative changes of median sternotomy, CABG, and aortic valve repair. A dual lead right-sided cardiac pacing device is noted in place. BONES: No acute osseous abnormality. IMPRESSION: Mild patchy left basilar airspace opacities with possiblesmall left pleural effusion concerning for pneumonia in the appropriate clinical setting. Recommend clinical correlation and follow-up imaging to document resolution. THIS IS AN ELECTRONICALLY VERIFIED FINAL REPORT 02/20/2025 11:19 AM - Electronically signed by Rc Cody M.D. T: Report ID: [id number] Reading Location: [place] [id number] Khanh Zavalahu DO IMG XR PROCEDURES Final Res ult * (ABNORMAL) Troponin T high-sensitivity series (baseline, 2hr, 4hr, 6hr) (02/20/2025 10:52 AM CDT) Trop T hs 611(C) <=14 ng/L Comment: Critical Result called to and read back by [email or web address], DATE: 2025-02-20 11:39:27 BY: [id number] Interpretive Data For further hscTnT resources including the diagnostic algorithm and an aid in interpretation, copy and paste this link: https://nrl.testcatalog.org/show/hsTrop Current Interpretive Data last revised 2020. Blood 02/20/2025 10:5 2 AM CDT 02/20/2025 10:56 AM CDT Khanh Shankar DO LAB BLOOD ORDERABLES Final Result [place] [address] [employer] [address] * Sepsis Lactate w/ Reflex (02/20/2025 10:52 AM CDT) Sepsis Lactate 1.8 0.7 - 2.0 mmol/L Blood 02/20/2025 10:5 2 AM CDT 02/20/2025 10:57 AM CDT Khanh Shankar LAB BLOOD ORDERABLES Final Result Performing Organization Address [facility] Phone Number [place] [address] [address] * (ABNORMAL) eGFR (02/20/2025 10:52 AM CDT) eGFR 3(L) >=60 mL/min/1. 73 [...] interpretive data was last reviewed 2021. Blood 02/20/2025 10:5 2 AM CDT 02/20/2025 10:56 AM CDT Khanh Shankar DO LAB BLOOD ORDERABLES Final Result [place] [address] [facility] Department [place] [address] * (ABNORMAL) Differential, auto (02/20/2025 10:52 AM CDT) Neutrophil abs 4.13 1.50 - 6.50 K/cumm Imm gran abs 0.02 0.00 - 0.10 K/cumm [facility] Lymphocyte abs 0.61(L) 0.80 - 3.30 K/cumm [facility] Monocyte abs 0.28 0.20 - 0.80 K/cumm [facility] Eosinophil abs 0.15 0.00 - 0.50 K/cumm [facility] Basophil abs 0.02 0.00 - 0.10 K/cumm [facility] Neutrophil pct 79.2 % [facility] Comment: Interpretive Data Percent cell count reference ranges are not reported, since discordance with absolute values may lead to misinterpretation of CBC data. Current Interpretive Data was last revised on 2018. Imm gran pct 0.4 % [facility] Comment: Interpretive Data Percent cell count reference ranges are not reported, since discordance with absolute values may lead to misinterpretation of CBC data. Current Interpretive Data was last revised on 2018. Lymphocyte pct 11.7 % [facility] Comment: Interpretive Data Percent cell count reference ranges are not reported, since discordance with absolute values may lead to misinterpretation of CBC data. Current Interpretive Data was last revised on 2018. Monocyte pct 5.4 % [facility] Comment: Interpretive Data Percent cell count reference ranges are not reported, since discordance with absolute values may lead to misinterpretation of CBC data. Current Interpretive Data was last revised on 2018. Eosinophil pct 2.9 % [facility] Comment: Interpretive Data Percent cell count reference ranges are not reported, since discordance with absolute values may lead to misinterpretation of CBC data. Current Interpretive Data was last revised on 2018. Basophil pct 0.4 % [facility] Comment: Interpretive Data Percent cell count reference ranges are not reported, since discordance with absolute values may lead to misinterpretation of CBC data. Current Interpretive Data was last revised on 2018. Blood 02/20/2025 10:5 2 AM CDT 02/20/2025 10:56 AM CDT Khanh Pabon [facility] LAB BLOOD ORDERABLES Final Result Performing Organization Address City/[facility] Co de Phone Number [place] [address] [address] * (ABNORMAL) CBC with auto differential (02/20/2025 10:52 AM CDT) WBC 5.21 3.80 - 9.90 K/cumm Hgb 13.2 11.9 - 15.5 g/dL [facility] Hct 42.8 35.6 - 45.5 % [facility] Plt 158 150 - 400 K/cumm [facility] MPV 10.8 9.1 - 12.3 fL [facility] RBC 4.75 3.90 - 5.20 M/cumm [facility] MCV 90.1 81.3 - 96.4 fL [facility] MCH 27.8 27.1 - 33.3 pg [facility] MCHC 30.8(L) 32.3 - 35.7 g/dL [facility] RDW CV 15.2(H) 11.1 - 14.9 % [facility] RDW SD 49.4(H) 35.7 - 48.1 fL [facility] NRBC abs 0.00 0.00 - 0.01 K/cumm [facility] Blood 02/20/2025 10:5 2 AM CDT 02/20/2025 10:56 AM CDT us [facility] BLOOD ORDERABLES Final Result Performing Organization Address City/[facility]/ZIP Co de Phone Number [place] [address] [address] * (ABNORMAL) Comprehensive metabolic panel (02/20/2025 10:52 AM CDT) Pathologist [facility] Sodium 137 135 - 145 mmol/L Potassium, pl 4.4 3.3 - 4.9 mmol/L [facility] Chloride 92(L) 97 - 110 mmol/L [facility] CO2 24 22 - 32 mmol/L [facility] Anion gap 21(H) 2 - 15 mmol/L [facility] BUN 48(H) 6 - 25 mg/dL [facility] Creatinine 13.30(H) 0.60 - 1.10 mg/dL [facility] Glucose 72 70 - 199 mg/dL [facility] Comment: Interpretive Data Fasting glucose >/= 126 [...] interpretive data was last revised 2022. Calcium 7.2(L) 8.5 - 10.3 mg/dL [facility] Bilirubin, total 0.3 0.1 - 1.2 mg/dL [facility] Protein, pl 6.6 6.5 - 8.5 g/dL [facility] Albumin 3.1(L) 3.5 - 5.0 g/dL [facility] Alk phos 66 40 - 130 Units/L [facility] ALT 14 7 - 45 Units/L [facility] AST 20 10 - 45 Units/L [facility] Blood 02/20/2025 10:5 2 AM CDT 02/20/2025 10:56 AM CDT Khanh Shankar DO LAB BLOOD ORDERABLES Final Result [place] [address] [facility] Department [place] [address] * ECG 12 lead (02/20/2025 10:47 AM CDT) Pathologist [facility] Ventricular Rate EKG/Min 78 BPM [facility] Atrial Rate 78 BPM [facility] AK-Interval (MSEC) 112 ms [facility] QRS-Interval (MSEC) 92 ms [facility] QT-Interval (MSEC) 424 ms [facility] QTc 483 ms [facility] P [place] 86 degrees [facility] R [place] -33 degrees [facility] T [place] 139 degrees [facility] Diagnosis Sinus rhythm with Premature supraventricular complexes Left axis deviation Septal infarct (cited on 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-MAY-2024) T wave abnormality, consider lateral ischemia Abnormal ECG When compared with ECG of 28-JAN-2025 10:10, Sinus rhythm has replaced Electronic atrial pacemaker Confirmed by SULTAN NDIAYE M.D. ([id number]) on 02/22/2025 4:12:38 PM [facility] 02/20/2025 10:4 7 AM CDT 02/22/2025 4:12 PM CDT Khanh Cm Zavalahu DO ECG ORDERABLES Final Resul t [facility] * XR Orthopantogram Panorex (01/28/2025 10:32 AM [...] AM CDT) Ventricular Rate EKG/Min 79 BPM [facility] Atrial Rate 79 BPM [facility] AK-Interval (MSEC) 164 ms [facility] QRS-Interval (MSEC) 88 ms [facility] QT-Interval (MSEC) 396 ms [facility] QTc 454 ms [facility] P [place] 112 degrees [facility] R [place] -24 degrees [facility] T [place] 129 degrees [facility] Diagnosis Atrial-paced rhythm in a pattern of bigeminy Anteroseptal infarct (cited on 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-MAY-2024) ST & T wave abnormality, consider lateral ischemia Abnormal ECG When compared with ECG of 25-DEC-2024 06:56, Premature atrial complexes are no longer Present Confirmed by HARJINDER HANDY M.D ([id number]) on 01/29/2025 11:51:51 AM [facility] 01/28/2025 10:1 0 AM CDT 01/29/2025 11:51 AM CDT Tamar Tang MD ECG ORDERABLES Final Result [facility] * Mislabeled Test (01/28/2025 9:47 AM CDT) Location Other location Reason No Signature On Blood Bank Specimen [facility] Mislabel resolution Testing canceled [facility] Blood 01/28/2025 9:47 AM CDT 01/28/2025 11:45 AM CDT Abigail Vides MD LAB BLOOD ORDERABLES Final Result [facility] [address] [facility] Department [place] [address] * (ABNORMAL) eGFR (01/28/2025 9:42 AM CDT) [...] MD LAB BLOOD ORDERABLES Final Res ult [facility] [address] [facility] Department of Laboratories [place], [place] [address] * HIV 1/2 Antibody plus p24 Antigen [...] ORD ERABLES Final Result Performing Organization Address City/[facility] Co de Phone Number [facility] [place] [address] * Hepatitis C antibody Blood (01/28/2025 9:42 AM CDT) Hep C Ab Nonreactive Nonreactive Comment:Antibodies to HCV no t detected. Does NOT exclude the possibility of recent exposure to HCV. Current interpretive data was last revised on 22 Blood 01/28/2025 9:42 AM CDT 01/28/2025 10:56 AM CDT Tamar Tang MD LAB MICROBIOLOGY - GENERAL ORD ERABLES Final Result Performing Organization Address [facility] Co [place] [address] * Hepatitis B core antibody, total Blood (01/28/2025 9:42 AM CDT) Hep B core IgG/IgM Nonreactive Nonreactive Blood 01/28/2025 9:42 AM CDT 01/28/2025 10:56 AM CDT Tamar Tang MD LAB MICROBIOLOGY - GENERAL ORD ERABLES Final Result Performing Organization Address City/[facility] Co de Phone Number [facility] [place] [address] * Hepatitis B surface antibody (immune status) [...] MICROBIOLOGY - GENERAL ORD ERABLES Final Result [facility] Department [place] [address] * Hepatitis B Surface Antigen Blood (01/28/2025 9:42 AM CDT) [facility] HepBsAg Nonreactive Nonreactive Blood 01/28/2025 9:42 AM CDT 01/28/2025 10:56 AM CDT Tamar Tang MD LAB MICROBIOLOGY - GENERAL ORD ERABLES Final Result Performing Organization Address [facility] Co de Phone Number [facility] [place] [address] * (ABNORMAL) CBC without differential (01/28/2025 9:42 AM CDT) [facility] WBC 5.32 3.80 - 9.90 K/cumm Hgb 13.1 11.9 - 15.5 g/dL [facility] Hct 41.5 35.6 - 45.5 % [facility] Plt 156 150 - 400 K/cumm [facility] MPV 10.5 9.1 - 12.3 fL [facility] RBC 4.64 3.90 - 5.20 M/cumm [facility] MCV 89.4 81.3 - 96.4 fL [facility] MCH 28.2 27.1 - 33.3 pg [facility] MCHC 31.6(L) 32.3 - 35.7 g/dL [facility] RDW CV 16.1(H) 11.1 - 14.9 % [facility] RDW SD 51.8(H) 35.7 - 48.1 fL [facility] NRBC abs 0.00 0.00 - 0.01 K/cumm [facility] Blood 01/28/2025 9:42 AM CDT 01/28/2025 10:58 AM CDT Abigail Vides MD LAB BLOOD ORDERABLES Final Result Performing Organization Address [facility] Co de Phone Number [facility] [place] [address] * (ABNORMAL) Phosphorus (01/28/2025 9:42 AM CDT) Phosphorus, pl 7.4(H) 2.3 - 4.5 mg/dL Blood 01/28/2025 9:42 AM CDT 01/28/2025 10:56 AM CDT Tamar Tang MD LAB BLOOD ORDERABLES Final Res ult Performing Organization Address [facility] de Phone Number [facility] [place] [address] * PTH (01/28/2025 9:42 AM CDT) PTH 43 15 - 65 pg/mL Blood 01/28/2025 9:42 AM CDT 01/28/2025 10:56 AM CDT Tamar Tang MD LAB BLOOD ORDERABLES Final Res ult Performing Organization Address [facility] de Phone Number [facility] [place] [address] * (ABNORMAL) Hemoglobin A1c (01/28/2025 9:42 AM CDT) Hgb A1C 5.8(H) 4.0 - 5.6 % Estimated Average Glucose 120 mg/dL [facility] Comment: The ADA recommends reporting an [...] MD LAB BLOOD ORDERABLES Final Res ult [facility] [address] [place] [address] * (ABNORMAL) Comprehensive metabolic panel (01/28/2025 9:42 AM CDT) Pathologist [facility] Sodium 137 135 - 145 mmol/L Potassium, pl 5.7(H) 3.3 - 4.9 mmol/L [facility] Chloride 95(L) 97 - 110 mmol/L [facility] CO2 27 22 - 32 mmol/L [facility] Anion gap 15 2 - 15 mmol/L [facility] BUN 61(H) 6 - 25 mg/dL [facility] Creatinine 14.50(H) 0.60 - 1.10 mg/dL [facility] Glucose 77 70 - 199 mg/dL [facility] Comment: Interpretive Data Fasting glucose [...] 2022. Calcium 7.3(L) 8.5 - 10.3 mg/dL [facility] Bilirubin, total 0.3 0.1 - 1.2 mg/dL [facility] Protein, pl 6.8 6.5 - 8.5 g/dL [facility] Albumin 3.2(L) 3.5 - 5.0 g/dL [facility] Alk phos 64 40 - 130 Units/L [facility] ALT 20 7 - 45 Units/L [facility] AST 24 10 - 45 Units/L [facility] Blood 01/28/2025 9:42 AM CDT 01/28/2025 10:56 AM CDT Tamar Tang MD LAB BLOOD ORDERABLES Final Res ult [facility] [address] [facility] [address] [place] [address] * HLA Antibody Screen - SAB (Class [...] method developed and validated by the [facility] HLA laboratory based on an FDA-approved IVD kit (LABScreen Single-Antigen, [employer], [place], [place]). All patient serum samples are pretreated with EDTA before the screen to prevent complement interference. Additional serum treatments, such as adsorption and DTT treatment, may be performed as indicated. Interpretive comments: Low risk: MFI [id number]. Moderate risk: MFI [id number]. Increased risk: MFI >/= 5000. The presence [...] antigens to avoid. Testing performed at the [facility], [address] [place] [address], 5th floor, [place], [address]. CLIA # [id number]. Rosa Millan, Ph.D., Older Adult Social Work Specialist, [facility] Wilmer Prescott M.D., Ph.D., Employment Trainer, [facility] Alma Payton, Ph.D., CLIA Employment Trainer, [facility] Current methodology and interpretive comments last revised on 11/15/2022. us Salina Hector MD LAB BLOOD ORDERABLES Final Resul t [employer] from Last 3 Months Insurance [facility] CHOICE PLUS MEDICARE [facility] CHOICE PLUS [facility] CHOICE PLUS MEDICARE MEDICARE [facility] CHOICE PLUS * Guarantor: Estuardo Copeland Account Type Relation to Patient Date of Phone Billing Address Transplant Self 1970 [address] [place] [address] Advance Directives For more information, please contact: [phone] * Full Code (Latest Code Status on File) Date Activated Date Inactivated Comments 02/20/2025 8:44 PM 02/24/2025 7:54 PM * Full Code Date Activated Date Inactivated Comments 02/20/2025 6:17 PM 02/20/2025 8:07 PM * Full Code Date Activated Date Inactivated Comments 12/25/2024 10:59 AM 12/28/2024 9:10 AM * Full Code Date Activated Date Inactivated Comments 11/19/2024 3:56 PM 11/19/2024 11:56 PM * Full Code Date Activated Date Inactivated Comments 05/19/2024 4:20 PM 05/25/2024 8:59 PM Care Teams Fire Extinguisher Technician Relationship Specialty Start Date End Date Pal Downey DO PCP - General Internal Medicine 01/25/21 Quinton Rowan MD Referring Physician Cardiology 01/09/19 Tami Flores, TONO [address] [facility] [address] [place] [id number] Registered Nurse Statistician Mathematical 01/25/21 Cricket Escalante MD [address] [facility] [address] [place] [address] Referring Physician Nephrology 03/24/21 Gael Sprague MD PhD [address] [facility] [address] [place] [address] Fellow Endocrinology Diabetes & Metabolism 03/24/21 Brad Turner MD [address] [address] Consulting Physician Obstetrics and Gynecology 03/24/21 Margarita Montoya MD [address] [address] Consulting Physician Trauma Surgery 12/27/21 Luca Lott MD [address] [facility] [address] [address] Consulting Physician Cardiology 08/03/22 bP Galloway MD [address] [address] Cardiothoracic Surgery 05/25/24 Felipe Gerber MD [address] [address] Consulting Physician Cardiology 05/25/24
--- OUTSIDE RECORDS SUMMARY | 2025-04-22 12:02 | XMS_ITS ---
Author Organization 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 Machine Operator Name Role Phone Quinton Rowan MD Unavailable [phone] Pal Downey DO Primary Care Provider [phone]- [phone] Tami Flores RN Unavailable Cricket Escalante MD Unavailable [phone] Gael Sprague MD PhD Unavailable Brad Turner MD Unavailable [phone] Margarita Montoya MD Unavailable Luca Lott MD Unavailable Pb Galloway MD Unavailable Felipe Gerber MD Unavailable [phone] Dialysis Access Sites Type Status Location [...] 8:31 PM CDT CALCIUM, IONIZED Timed 02/21/2025 8:3 1 PM CDT PHOSPHORUS Routine 02/21/2025 8:31 PM [...] 10:00 AM CDT from Last 3 Months Allergies Active Allergy [...] STOPS BREATHING Penicillins Anaphylaxis,Rash,Un known High 04/29/2015 Sgtznip-Suq-Tny Reductase Inhibitors Muscle pain Medium 02/20/2025 Trialed [...] (four) hours as needed for pain Active ondansetron ODT (ZOFRAN-ODT) 4 mg disintegrating [...] to 3 doses total 30 tablet Active ergocalciferol (VITAMIN D) 50,000 unit capsule Take 1 capsule (50,000 Units total) by mouth once a week sundays Active ferric citrate (Auryxia) 210 mg iron [...] total) by mouth daily 15 tablet 025 06/07/ 2025 Discontinued evolocumab (REPATHA) syringe syringe Inject 1 mL (140 mg total) under the skin every 14 (fourteen) days 2 mL 025 2024 Discontinued(R eoadonayer) Active Problems Problem Noted Date Diagnosed Date [...] PM CDT): Status post complex SAVR in 2018, complicated by severe paravalvular leak with subsequent [...] (02/01/2022): Added automatically from request for surgery [id number] Assessment & Plan (02/05/2025 3:15 PM CDT): Undergoing pre transplant evaluation. We will review with Dr. Lott regarding possible candidacy for transplant list given recent interventions. Continued to DAPT Disorder of peritoneal dialysis catheter 022 Overview (12/22/2021): Added automatically from request for surgery [id number] Chronic kidney disease, stage V 10/31/2021 Overview (08/21/2023): Added automatically from request for surgery [id number] Sick sinus syndrome 11/02/2020 Diastolic heart failure [...] Assessment & Plan (02/25/2019 11:43 AM CDT): C with 95% LAD lesion, [...] Assessment & Plan (02/24/2019 9:29 AM CDT): [facility] with 95% LAD lesion, had [...] Assessment & Plan (02/20/2019 5:17 AM CDT): [facility] with 95% LAD lesion, had some RV dysfunction during AV repair and found to have RCA occlusion following LAD bypass - s/p IABP placement - CABG to LAD and LCA Assessment & Plan (02/19/2019 2:08 AM CDT): C with 95% LAD lesion, [...] Assessment & Plan (02/16/2019 11:38 PM CDT): [facility] with 95% LAD lesion, had some RV dysfunction during AV repair and found to have RCA occlusion following LAD bypass - s/p IABP placement - CABG to LAD and LCA - on Epi and Milrinone of inotropy Assessment & Plan (02/11/2019 6:16 PM CDT): [facility] with 95% LAD lesion, had some RV dysfunction during AV repair and found to have RCA occlusion following LAD bypass - s/p IABP placement - CABG to LAD and LCA - on Epi and Milrinone of inotropy Assessment & Plan (02/08/2019 5:38 PM CDT): -Patient w/ chest pain/SOB along w/ significant troponin elevation -Plan for [facility] w/ possible PCI tomorrow pending [...] to 4.35 - valve team consulted, 02/09 [facility] with severe 1 vessel disease [...] (02/09/2019): Added automatically from request for surgery [id number] Assessment & Plan (05/17/2019 9:19 AM CDT): [...] (02/10/2019): Added automatically from request for surgery [id number] Assessment & Plan (02/05/2025 3:15 PM CDT): [...] with left shoulder pain similar to previous MT -EKG changes per OSH --Slight elevation in [...] currently stable Daily BMPs, while inpatient 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 Apparently discussions for potential need for renal txp being discussed. - Cr at baseline on adm - avoid nephrotoxins, renally dose meds - continue calcitriol 0.5 mcg/day - Cr 2.75, received pre-cath hydration, stable 2.7 Headache 05/02/2016 Moderate COPD (chronic obstr uctive pulmonary disease) ([facility]) 11/02/2015 Assessment & Plan (08/02/2022 [...] AM CDT): Alexis TAVR 05/21 Followed by [facility], Dr. Lott. CT TAVR on [...] not a candidate for intervention [facility] Assessment & Plan (05/17/2019 9:28 [...] AV. Referred to valve team by primary rug underlay machine operator Dr. Rowan. Seen 02/02 by valve [...] on file Legal Sex Female 4:06 AM HEAVY THREADER Gender Identity Female 01/16/2024 11:18 AM CDT [...] Mass Index 21.35 04/07/2025 11:23 AM CDT Results * HLA Antibody Screen by PRA or SAB per Schedule (Class I and Class II) (04/20/2025 10:00 AM CDT) Blood 04/20/2025 10:0 0 AM CDT Narrative HISTOTR[facility] - HEAVY THREADER Sample received in lab. Single Antigen Antibody Screen ordered. us Salina Hector MD LAB BLOOD ORDERABLES Final Resul t Performing Organization Address City/[facility]/ZIP Co de Phone Number HISTOT[facility] * HLA Antibody Screen by PRA or SAB per Schedule (Class I and Class II) (03/01/2025 10:00 AM CDT) Blood 03/01/2025 10:0 0 AM CDT Narrative HISTOTRAC - HEAVY THREADER Sample received in lab and stored. No testing performed at this time. us Salina Hector MD LAB BLOOD ORDERABLES Final Resul t Performing Organization Address City/[facility] Co de Phone Number HISTOTRAC * [...] AM CDT 02/24/2025 10:17 AM CDT Dasha Cayetanomaile Tc SIERRA LAB BLOOD ORDERABLES Final Result [facility] One [facility] [place] [address] * (ABNORMAL) Differential, auto (02/24/2025 9:50 AM CDT) Neutrophil abs 4.72 1.50 - 6.50 K/cumm Imm gran abs 0.02 0.00 - 0.10 K/cumm [facility] Lymphocyte abs 0.73(L) 0.80 - 3.30 K/cumm [facility] Monocyte abs 0.42 0.20 - 0.80 K/cumm [facility] Eosinophil abs 0.21 0.00 - 0.50 K/cumm [facility] Basophil abs 0.04 0.00 - 0.10 K/cumm [facility] Neutrophil pct 76.9 % [facility] Comment: Interpretive Data Percent cell count reference ranges are not reported, since discordance with absolute values may lead to misinterpretation of CBC data. Current Interpretive Data was last revised on 2018. Imm gran pct 0.3 % [facility] Comment: Interpretive Data Percent cell count reference ranges are not reported, since discordance with absolute values may lead to misinterpretation of CBC data. Current Interpretive Data was last revised on 2018. Lymphocyte pct 11.9 % [facility] Comment: Interpretive Data Percent cell count reference ranges are not reported, since discordance with absolute values may lead to misinterpretation of CBC data. Current Interpretive Data was last revised on 2018. Monocyte pct 6.8 % [facility] Comment: Interpretive Data Percent cell count reference ranges are not reported, since discordance with absolute values may lead to misinterpretation of CBC data. Current Interpretive Data was last revised on 2018. Eosinophil pct 3.4 % [facility] Comment: Interpretive Data Percent cell count reference ranges are not reported, since discordance with absolute values may lead to misinterpretation of CBC data. Current Interpretive Data was last revised on 2018. Basophil pct 0.7 % [facility] Comment: Interpretive Data Percent cell count reference ranges are not reported, since discordance with absolute values may lead to misinterpretation of CBC data. Current Interpretive Data was last revised on 2018. Blood 02/24/2025 9:50 AM CDT 02/24/2025 10:17 AM CDT Dasha Montez DO LAB BLOOD ORDERABLES Final Result [facility] One [facility] [place] [address] * (ABNORMAL) CBC with auto differential (02/24/2025 9:50 AM CDT) WBC 6.14 3.80 - 9.90 K/cumm Hgb 12.5 11.9 - 15.5 g/dL [facility] Hct 39.5 35.6 - 45.5 % [facility] Plt 177 150 - 400 K/cumm [facility] MPV 10.8 9.1 - 12.3 fL [facility] RBC 4.37 3.90 - 5.20 M/cumm [facility] MCV 90.4 81.3 - 96.4 fL [facility] MCH 28.6 27.1 - 33.3 pg [facility] MCHC 31.6(L) 32.3 - 35.7 g/dL [facility] RDW CV 15.9(H) 11.1 - 14.9 % [facility] RDW SD 51.0(H) 35.7 - 48.1 fL [facility] NRBC abs 0.00 0.00 - 0.01 K/cumm [facility] Blood 02/24/2025 9:50 AM CDT 02/24/2025 10:17 AM CDT Dasha Fernandezbakar LAB BLOOD ORDERABLES Final [facility] [place] [address] * (ABNORMAL) Basic metabolic panel (02/24/2025 9:50 AM CDT) Sodium 136 135 - 145 mmol/L Potassium, pl 5.0(H) 3.3 - 4.9 mmol/L [facility] Chloride 93(L) 97 - 110 mmol/L [facility] CO2 27 22 - 32 mmol/L [facility] Anion gap 16(H) 2 - 15 mmol/L [facility] BUN 43(H) 6 - 25 mg/dL [facility] Creatinine 11.83(H) 0.60 - 1.10 mg/dL [facility] Glucose 82 70 - 199 mg/dL [facility] Comment: Interpretive Data Fasting glucose [...] 2022. Calcium 7.9(L) 8.5 - 10.3 mg/dL [facility] Blood 02/24/2025 9:50 AM CDT 02/24/2025 10:17 AM CDT Dasha Tana Montez LAB BLOOD ORDERABLES Final Result [facility] [place] [address] * (ABNORMAL) eGFR (02/23/2025 11:43 PM CDT) Pathologist [facility] eGFR 3(L) >=60 [...] 3 PM CDT 02/24/2025 12:22 AM CDT us Jaimie Giordano MD LAB BLOOD ORDERABLES Final Result [facility] One [facility] [place] [address] * VerifyNow clopidogrel (02/23/2025 11:43 PM CDT) [facility] VerifyNow clopidogrel 208 PRU Comment: Interpretive Data [...] 3 PM CDT 02/24/2025 12:16 AM CDT us Ellie Saenz MD LAB BLOOD ORDERABLES Fin al Result Performing Organization Address City/[facility] Co de Phone Number [facility] [place] [address] * (ABNORMAL) Phosphorus (02/23/2025 11:43 PM CDT) Phosphorus, pl 7.6(H) 2.3 - 4.5 mg/dL Blood 02/23/2025 11:4 3 PM CDT 02/24/2025 12:22 AM CDT us Jaimie Giordano MD LAB BLOOD ORDERABLES Final Result Performing Organization Address [facility] Co de Phone Number [facility] [place] [address] * Magnesium (02/23/2025 11:43 PM CDT) Magnesium 2.4 1.4 - 2.5 mg/dL Blood 02/23/2025 11:4 3 PM CDT 02/24/2025 12:22 AM CDT us Jaimie Giordano MD LAB BLOOD ORDERABLES Final Result Performing Organization Address City/[facility] Co de Phone Number [facility] [place] [address] * (ABNORMAL) Basic metabolic panel (02/23/2025 11:43 PM CDT) Sodium 133(L) 135 - 145 mmol/L Potassium, pl 4.9 3.3 - 4.9 mmol/L [facility] Chloride 95(L) 97 - 110 mmol/L [facility] CO2 27 22 - 32 mmol/L [facility] Anion gap 11 2 - 15 mmol/L [facility] BUN 52(H) 6 - 25 mg/dL [facility] Creatinine 11.94(H) 0.60 - 1.10 mg/dL [facility] Glucose 89 70 - 199 mg/dL [facility] Comment: Interpretive Data Fasting glucose [...] 2022. Calcium 8.0(L) 8.5 - 10.3 mg/dL [facility] Blood 02/23/2025 11:4 3 PM CDT 02/24/2025 12:22 AM CDT us Jaimie Giordano MD LAB BLOOD ORDERABLES Final Result [facility] One [facility] [place] [address] * LEFT HEART CATHETERIZATION WITH CORONARY ANGIOGRAPHY [...] 54 y.o. female : 1970 MR number: [id number] Date of Service: 02/23/2025 Manager Mall: Luca Lott MD Fellow: Sanket Quiroz MD [...] vein graft to her LAD and her [place] left main. She now presents for urgent cardiac catheterization PROCEDURE: The risks, benefits and alternatives of the procedures and moderate sedation were explained to the patient and informed consent was obtained. The patient was brought to the odd job laborer and placed on the table Bilateral [...] the LAD angiogram performed using a 6 [place] 3D RC Percutaneous coronary intervention performed on theSVG to the Proximal LAD. This was an ACC/AHA Type C. Initial Lesion Length 12mm and final lesion Length 20mm. Initial KAROLINA Flow 3 Final KAROLINA Flow 3. Equipment used: 6 3DRC, [facility] [facility] IVUS Catheter, Acid Filler 50 wire, 0.9 mm laser atherectomy catheter [...] it was extremely difficult. We used a Acid Filler 50 wire with extreme difficulty wire through [...] time, low range (02/23/2025 1:41 PM CDT) ACT 319(H) 123 - 168 sec POC Performer [id number] [facility] POC Device Number [id number] [facility] Blood 02/23/2025 1:41 PM CDT 02/23/2025 1:41 PM CDT Result [facility] Ellie Saenz MD LAB POCT ORDERABLES - DE VICE Final Result [facility] One [facility] [place] [address] * (ABNORMAL) POCT Activated clotting time, low range (02/23/2025 12:35 PM CDT) ACT 351(H) 123 - 168 sec POC Performer [id number] [facility] POC Device Number [id number] [facility] Blood 02/23/2025 12:3 5 PM CDT 02/23/2025 12:35 PM CDT Ellie Saenz MD LAB POCT ORDERABLES - DE VICE Final Result Performing Organization Address [facility] Co de Phone Number [facility] [place] [place] [address] * (ABNORMAL) aPTT (02/23/2025 6:36 AM CDT) [...] ORDERABLES Final Result Performing Organization Address [facility] de Phone Number [facility] [place] [address] * (ABNORMAL) eGFR (02/22/2025 11:07 PM CDT) [...] 7 PM CDT 02/22/2025 11:50 PM CDT us Jaimie Giordano MD LAB BLOOD ORDERABLES Final Result Performing Organization Address [facility] Co de Phone Number [facility] [place] [address] * (ABNORMAL) aPTT (02/22/2025 11:07 PM CDT) aPTT 69(H) 28 - 38 sec Comment: Interpretive Data Heparin therapeutic range: 66.0 - 100.0 seconds. Range based on correlation with therapeutic heparin activity range of 0.3 - 0.7 Units/mL. Current interpretive data was last revised on 2023. Blood 02/22/2025 11:0 7 PM CDT 02/22/2025 11:52 PM CDT us Ellie Saenz MD LAB BLOOD ORDERABLES Fin al Result Performing Organization Address [facility] [place] [address] * (ABNORMAL) Phosphorus (02/22/2025 11:07 PM CDT) Phosphorus, pl 7.2(H) 2.3 - 4.5 mg/dL Blood 02/22/2025 11:0 7 PM CDT 02/22/2025 11:50 PM CDT Jaimie Giordano MD LAB BLOOD ORDERABLES Final Result Performing Organization Address City/[facility] Co de Phone Number [facility] [place] [address] * Magnesium (02/22/2025 11:07 PM CDT) Magnesium 2.5 1.4 - 2.5 mg/dL Blood 02/22/2025 11:0 7 PM CDT 02/22/2025 11:50 PM CDT us Jaimie Giordano MD LAB BLOOD ORDERABLES Final Result [facility] One [facility] [place] [address] * (ABNORMAL) Basic metabolic panel (02/22/2025 11:07 PM CDT) [facility] Sodium 134(L) 135 - 145 mmol/L Potassium, pl 4.5 3.3 - 4.9 mmol/L [facility] Chloride 95(L) 97 - 110 mmol/L [facility] CO2 28 22 - 32 mmol/L [facility] Anion gap 11 2 - 15 mmol/L [facility] BUN 56(H) 6 - 25 mg/dL [facility] Creatinine 11.97(H) 0.60 - 1.10 mg/dL [facility] Glucose 104 70 - 199 mg/dL [facility] Comment: Interpretive Data Fasting glucose [...] 2022. Calcium 7.8(L) 8.5 - 10.3 mg/dL [facility] Blood 02/22/2025 11:0 7 PM CDT 02/22/2025 11:50 PM CDT us Jaimie Giordano MD LAB BLOOD ORDERABLES Final Result [facility] [place] [address] * (ABNORMAL) aPTT (02/22/2025 2:25 PM CDT) aPTT 54(H) 28 - 38 sec Comment: Interpretive Data Heparin therapeutic range: 66.0 - 100.0 seconds. Range based on correlation with therapeutic heparin activity range of 0.3 - 0.7 Units/mL. Current interpretive data was last revised on 2023. Blood 02/22/2025 2:25 PM CDT 02/22/2025 2:59 PM CDT Dasha Montez DO LAB BLOOD ORDERABLES Final Result [facility] [place] [address] * TRANSTHORACIC ECHO (TTE) COMPLETE W DOPPLER/CF W CONTRAST (02/22/2025 1:39 PM CDT) Pathologist [facility] EF Mod BP 51 % CONS SCIMAGE Anatomical Region Laterality Modality Ultrasound 02/22/2025 12:3 8 PM CDT Narrative 02/22/2025 2:49 PM CDT [facility] [place] [address] Transthoracic Echocardiographic Report Patient Name: ESTUARDO COPELAND M : 1970 (54y 3m) Gender: F Study Date: 02/22/2025 12:38:48 PM Ht(Inch): 64 Wt(Lb): 123.9 BSA: 1.59 Outpatient Program Coordinator: Marisol Arciniega RDCS, [facility] Location: [id number] Order Provider: ELLIE SAENZ Heart Rate: 75 [...] flow reversal in the hepatic veins. Mild [place]. Est. PASP 40-45 mm Hg. 7. Physiologic [...] Procedure Note Rc Koehler MD - 02/22/2025 [facility] Card[place] [address] Transthoracic Echocardiographic Report Patient Name: ESTUARDO COPELAND M : 1970 (54y 3m) Gender: F Study Date: 02/22/2025 12:38:48 PM Ht(Inch): 64 Wt(Lb): 123.9 BSA: 1.59 Outpatient Program Coordinator: Marisol Arciniega RD, [facility] Location: [id number] OrderProvider: ELLIE SAENZ Heart Rate: 75 BMI: [...] systolic flow reversal in the hepatic veins.Mild [place]. Est. PASP 40-45 mm Hg. 7. Physiologic [...] [ 2.70 - 3.70 ] MV Decel [id number] msec [ 104.00 - 258.00 ] Ao [...] PM CDT Wall Motion Analysis - Resting Ellie Saenz MD CV ECHO PROCEDURES Final Result * ECG 12 lead (02/22/2025 9:14 AM CDT) Pathologist [facility] Ventricular Rate EKG/Min 80 BPM [facility] Atrial Rate 80 BPM [facility] NJ-Interval (MSEC) 96 ms [facility] QRS-Interval (MSEC) 90 ms [facility] QT-Interval (MSEC) 412 ms [facility] QTc 475 ms [facility] P [place] 90 degrees [facility] R [place] -30 degrees [facility] T [place] 133 degrees [facility] Diagnosis Sinus rhythm with sinus arrhythmia with short [place] Left axis deviation Left ventricular hypertrophy ( Romhilt-Pierce ) Cannot rule out Septal infarct (cited on 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-FEB-2025) ST & T wave abnormality, consider lateral ischemia Abnormal ECG When compared with ECG of 22-FEB-2025 01:51, (unconfirmed) Sinus rhythm has replaced Atrial fibrillation Confirmed by HARJINDER HANDY M.D ([id number]) on 03/05/2025 11:42:44 AM [facility] 02/22/2025 9:14 AM CDT 03/05/2025 11:42 AM CDT us Jaimie Giordano MD ECG ORDERABLES Victoria l Result [facility] * (ABNORMAL) Troponin I high-sensitivity 4-hour (02/22/2025 6:24 AM CDT) Trop I hs 1,868(C) <=17 ng/L Comment: Previous critical value noted within 48 hours ago. Interpretive Data For further hscTnI resources including the diagnostic algorithm and an aid in interpretation, copy and paste this link: https://bjhlab.testcatalog.org/show/hsTrop-1 Current Interpretive Data last revised 2020. Trop I hs pct delta -19(C) % [facility] Comment:Previous critical va lue noted within 48 hours ago. Trop I hs interp Significa nt(C) [facility] Comment:Previous critical va lue noted within 48 hours ago. Blood 02/22/2025 6:24 AM CDT 02/22/2025 6:48 AM CDT us Milton Rubio MD LAB BLOOD ORDERABLES Final Resul t Performing Organization Address City/[facility] Co de Phone Number [facility] [place] [address] * (ABNORMAL) Troponin I high-sensitivity 2-hour (02/22/2025 4:51 AM CDT) Trop I hs 2,146(C) <=17 ng/L Comment: Previous critical value noted within 48 hours ago. Interpretive Data For further hscTnI resources including the diagnostic algorithm and an aid in interpretation, copy and paste this link: https://bjhlab.testcatalog.org/show/hsTrop-1 Current Interpretive Data last revised 2020. Trop I hs pct delta -7 % [facility] Trop I hs interp Equivocal [facility] Blood 02/22/2025 4:51 AM CDT 02/22/2025 5:26 AM CDT Milton Rubio MD LAB BLOOD ORDERABLES Final Resul t Performing Organization Address [facility] Co de Phone Number [facility] [place] [address] * (ABNORMAL) aPTT (02/22/2025 4:51 AM CDT) [...] ORDERABLES Final Resul t Performing Organization Address [facility] Co de Phone Number [facility] [place] [address] * Infection Prevention Anthony auris PCR, surveillance Axilla/Groin (02/22/2025 2:05 AM CDT) Anthony auris DNA Not Detected Not Detected [facility] Comment: Interpretive Data Testing performed by [facility] using the Pablo estelle 6800 Anthony auris assay. This assay detects DNA from Anthony auris using Real-Time PCR. This assay is laboratory developed and is not cleared by the [place] Food and Drug Administration. The performance characteristics have been verified by the [facility]. Axilla/Groin 02/22/2025 2:05 AM CDT 02/22/2025 3:14 AM CDT N[facility]ative [facility] 02/22/2025 2:38 PM CDT Order placed by [facility] due to ring surveillance. us Instant Order Generic Provider LAB MICROBIOLOGY - GENERAL ORDERABLES Final Result Performing Organization Address City/[facility]/ZIP Co de Phone Number [facility] [place] [address] [facility] * (ABNORMAL) Troponin I high-sensitivity series (baseline, 2hr, 4hr, 6hr) (02/22/2025 2:05 AM CDT) Pathologist [facility] Trop I hs 2,317(C) <=17 ng/L Comment: Previous critical value noted within 48 hours ago. Interpretive Data For further hscTnI resources including the diagnostic algorithm and an aid in interpretation, copy and paste this link: https://bjhlab.testcatalog.org/show/hsTrop-1 Current Interpretive Data last revised 2020. Blood 02/22/2025 2:05 AM CDT 02/22/2025 2:57 AM CDT us Milton Rubio MD LAB BLOOD ORDERABLES Final Resul t [facility] [place] [address] * (ABNORMAL) eGFR (02/22/2025 2:05 AM CDT) [...] ORDERABLES Final Resul t Performing Organization Address City/[facility] Co de Phone Number [facility] [place] [address] * Magnesium (02/22/2025 2:05 AM CDT) Pathologist [facility] Magnesium 2.5 1.4 - 2.5 mg/dL Blood 02/22/2025 2:05 AM CDT 02/22/2025 2:58 AM CDT us Milton Rubio MD LAB BLOOD ORDERABLES Final Resul t Performing Organization Address [facility] de Phone Number [facility] [place] [address] * (ABNORMAL) Comprehensive metabolic panel (02/22/2025 2:05 AM CDT) Pathologist [facility] Sodium 138 135 - 145 mmol/L Potassium, pl 4.3 3.3 - 4.9 mmol/L [facility] Chloride 95(L) 97 - 110 mmol/L [facility] CO2 26 22 - 32 mmol/L [facility] Anion gap 17(H) 2 - 15 mmol/L [facility] BUN 55(H) 6 - 25 mg/dL [facility] Creatinine 12.63(H) 0.60 - 1.10 mg/dL [facility] Glucose 99 70 - 199 mg/dL [facility] Comment: Interpretive Data Fasting glucose [...] 2022. Calcium 8.1(L) 8.5 - 10.3 mg/dL [facility] Bilirubin, total 0.2 0.1 - 1.2 mg/dL [facility] Protein, pl 6.0(L) 6.5 - 8.5 g/dL [facility] Albumin 2.6(L) 3.5 - 5.0 g/dL [facility] Alk phos 59 40 - 130 Units/L [facility] ALT 14 7 - 45 Units/L [facility] AST 20 10 - 45 Units/L [facility] Blood 02/22/2025 2:05 AM CDT 02/22/2025 2:58 AM CDT us Milton Rubio MD LAB BLOOD ORDERABLES Final Resul t [facility] One [facility] [place] [address] * ECG 12 lead (02/22/2025 1:45 AM CDT) Ventricular Rate EKG/Min 137 BPM [facility] QRS-Interval (MSEC) 94 ms [facility] QT-Interval (MSEC) 316 ms [facility] QTc 477 ms [facility] R [place] -41 degrees [facility] T [place] 137 degrees [facility] Diagnosis Age and gender specific ECG analysis Sinus tachycardia Anteroseptal ST-elevation Poor R-wave progression in the precordial leads Left axis deviation Minimal voltage criteria for LVH, may be normal variant ( [place] product ) Anteroseptal infarct , possibly acute T wave abnormality, consider lateral ischemia Abnormal ECG No previous ECGs available Confirmed by HARJINDER HANDY M.D ([id number]) on 02/23/2025 3:10:53 PM [facility] 02/22/2025 1:45 AM CDT 02/23/2025 3:10 PM CDT Jaimie Giordano MD ECG ORDERABLES Victoria l Result [facility] * (ABNORMAL) eGFR (02/21/2025 8:31 PM CDT) [...] BLOOD ORDERABLES Final Result Performing Organization Address City/[facility]/ZIP Co de Phone Number [facility] [place] [address] * Critical Result Callback Chemistry (02/21/2025 8:31 PM CDT) Date Notified [id number] Time Notified 2153 [facility] TestName Calcium [facility] Called/Read Back Jose DOMINGUEZ Credentials RN [facility] Called By PD [facility] Blood 02/21/2025 8:31 PM CDT 02/21/2025 9:23 PM CDT us Jaimie Giordano MD LAB BLOOD ORDERABLES Final Result Performing Organization Address [facility] Co de Phone Number [facility] [place] [place] [address] * Critical Result Callback Chemistry (02/21/2025 8:31 PM CDT) Date Notified [id number] Time Notified 2128 [facility] TestName Ca Ionized [facility] Called/Read Back Parminder DOMINGUEZ Credentials RN [facility] Called By PD [facility] Blood 02/21/2025 8:31 PM CDT 02/21/2025 9:00 PM CDT Ellie Saenz MD LAB BLOOD ORDERABLES Fin al Result Performing Organization Address City/[facility]/ZIP Co de Phone Number [facility] [place] [address] * (ABNORMAL) Calcium, ionized (02/21/2025 8:31 PM CDT) Pathologist [facility] Calcium, Ionized 3.17(C) 4.50 - 5.10 mg/dL Blood 02/21/2025 8:31 PM CDT 02/21/2025 9:00 PM CDT Ellie Saenz MD LAB BLOOD ORDERABLES Fin al Result Performing Organization Address [facility] Co de Phone Number [facility] [place] [address] * (ABNORMAL) aPTT (02/21/2025 8:31 PM CDT) [facility] aPTT 52(H) 28 - 38 sec Comment: Interpretive Data Heparin therapeutic range: 66.0 - 100.0 seconds. Range based on correlation with therapeutic heparin activity range of 0.3 - 0.7 Units/mL. Current interpretive data was last revised on 2023. Blood 02/21/2025 8:31 PM CDT 02/21/2025 9:05 PM CDT Narrative [facility] - 02/21/2025 9:15 PM CDT STAT PTT [...] ES Final Result Performing Organization Address [facility]/ZIP Co de Phone Number [facility] [place] [address] * (ABNORMAL) Phosphorus (02/21/2025 8:31 PM CDT) [facility] Phosphorus, pl 8.4(H) 2.3 - 4.5 mg/dL Blood 02/21/2025 8:31 PM CDT 02/21/2025 9:00 PM CDT Jaimie Giordano MD LAB BLOOD ORDERABLES Final Result [facility] [place] [address] * Magnesium (02/21/2025 8:31 PM CDT) [facility] Magnesium 2.4 1.4 - 2.5 mg/dL Blood 02/21/2025 8:31 PM CDT 02/21/2025 9:00 PM CDT Jaimie Giordano MD LAB BLOOD ORDERABLES Final Result Performing Organization Address City/[facility] de Phone Number [facility] [place] [address] * (ABNORMAL) Basic metabolic panel (02/21/2025 8:31 PM CDT) [facility] Sodium 139 135 - 145 mmol/L Potassium, pl 4.6 3.3 - 4.9 mmol/L [facility] Chloride 94(L) 97 - 110 mmol/L [facility] CO2 27 22 - 32 mmol/L [facility] Anion gap 18(H) 2 - 15 mmol/L [facility] BUN 53(H) 6 - 25 mg/dL [facility] Creatinine 12.82(H) 0.60 - 1.10 mg/dL [facility] Glucose 82 70 - 199 mg/dL [facility] Comment: Interpretive Data Fasting glucose [...] 2022. Calcium 6.4(C) 8.5 - 10.3 mg/dL [facility] Blood 02/21/2025 8:31 PM CDT 02/21/2025 9:00 PM CDT us Jaimie Giordano MD LAB BLOOD ORDERABLES Final Result Performing Organization Address [facility] Co de Phone Number [facility] [place] [place] [address] * (ABNORMAL) aPTT (02/21/2025 11:39 AM CDT) [...] ORDERABLES Final Resul t Performing Organization Address City/[facility]/ZIP Co de Phone Number [facility] [place] [address] * (ABNORMAL) Troponin I high-sensitivity (02/21/2025 8:42 AM CDT) Trop I hs 2,752(C) <=17 ng/L Comment: Previous critical value noted within 48 hours ago. Interpretive Data For further [facility] resources including the diagnostic algorithm and an aid in interpretation, copy and paste this link: https://bjhlab.testcatdbTwang.org/show/hsTrop-1 Current Interpretive Data last revised 2020. Blood 02/21/2025 8:42 AM CDT 02/21/2025 9:24 AM CDT Ellie Saenz MD LAB BLOOD ORDERABLES Fin al Result Performing Organization Address [facility] Co de Phone Number [facility] [place] [address] * Thyroid Function Greer (02/21/2025 8:42 AM CDT) Pathologist [facility] TSH 1.88 0.30 - 4.20 mcIUnit/mL Blood 02/21/2025 8:42 AM CDT 02/21/2025 9:24 AM CDT Ellie Saenz MD LAB BLOOD ORDERABLES Fin al Result Performing Organization Address [facility] de Phone Number [facility] [place] [address] * (ABNORMAL) Troponin I high-sensitivity 6-hour (02/21/2025 4:51 AM CDT) Pathologist [facility] Trop I hs 3,175(C) <=17 ng/L Comment: Previous critical value noted within 48 hours ago. Interpretive Data For further hscTnI resources including the diagnostic algorithm and an aid in interpretation, copy and paste this link: https://bjhlab.testcatdbTwang.org/show/hsTrop-1 Current Interpretive Data last revised 2020. Trop I hs pct delta -25(C) % [facility] Comment:Previous critical va lue noted within 48 hours ago. Trop I hs interp Significa nt(C) [facility] Comment:Previous critical va lue noted within 48 hours ago. Blood 02/21/2025 4:51 AM CDT 02/21/2025 5:32 AM CDT us Jaimie Giordano MD LAB BLOOD ORDERABLES Final Result Performing Organization Address [facility] Co de Phone Number [facility] [place] [address] * (ABNORMAL) aPTT (02/21/2025 4:51 AM CDT) aPTT 82(H) 28 - 38 sec Comment: Interpretive Data Heparin therapeutic range: 66.0 - 100.0 seconds. Range based on correlation with therapeutic heparin activity range of 0.3 - 0.7 Units/mL. Current interpretive data was last revised on 2023. Blood 02/21/2025 4:51 AM CDT 02/21/2025 5:31 AM CDT us Milton Rubio MD LAB BLOOD ORDERABLES Final Resul t Performing Organization Address [facility] de Phone Number [facility] [place] [address] * (ABNORMAL) Troponin I high-sensitivity 4-hour (02/21/2025 2:18 AM CDT) Trop I hs 2,937(C) <=17 ng/L Comment: Previous critical value noted within 48 hours ago. Interpretive Data For further hscTnI resources including the diagnostic algorithm and an aid in interpretation, copy and paste this link: https://bjhlab.testcatalog.org/show/hsTrop-1 Current Interpretive Data last revised 2020. Trop I hs pct delta -31(C) % [facility] Comment:Previous critical va lue noted within 48 hours ago. Trop I hs interp Significa nt(C) [facility] Comment:Previous critical va lue noted within 48 hours ago. Blood 02/21/2025 2:18 AM CDT 02/21/2025 2:49 AM CDT us Jaimie Giordano MD LAB BLOOD ORDERABLES Final Result Performing Organization Address [facility] Co de Phone Number [facility] [place] [address] * (ABNORMAL) Troponin I high-sensitivity 2-hour (02/20/2025 11:27 PM CDT) Trop I hs 3,312(C) <=17 ng/L Comment: Previous critical value noted within 48 hours ago. Interpretive Data For further hscTnI resources including the diagnostic algorithm and an aid in interpretation, copy and paste this link: https://MoveInSync.Holograam.org/show/hsTrop-1 Current Interpretive Data last revised 2020. Trop I hs delta See Comment ng/L [facility] Comment:Inappropriate collec tion time to report a delta. Trop I hs pct delta See Comment % [facility] Comment:Inappropriate collec tion time to report a delta. Trop I hs interp See Comment [facility] Comment:Inappropriate collec tion time to report a delta. Blood 02/20/2025 11:2 7 PM CDT 02/21/2025 12:31 AM CDT us Jaimie Giordano MD LAB BLOOD ORDERABLES Final Result Performing Organization Address [facility] Co de Phone Number [facility] [place] [address] * (ABNORMAL) Troponin I high-sensitivity series (baseline, 2hr, 4hr, 6hr) (02/20/2025 10:03 PM CDT) Trop I hs 4,242(C) <=17 ng/L Comment: Interpretive Data For further hscTnI resources including the diagnostic algorithm and an aid in interpretation, copy and paste this link: https://MoveInSync.Holograam.org/show/hsTrop-[email or web address] Current Interpretive Data last revised 2020. Blood 02/20/2025 10:0 3 PM CDT 02/20/2025 10:50 PM CDT us Jaimie Giordano MD LAB BLOOD ORDERABLES Final Result Performing Organization Address City/[facility]/ZIP Co de Phone Number [facility] [place] [address] * Lactate (02/20/2025 10:03 PM CDT) Lactate 1.3 0.7 - 2.0 mmol/L Blood 02/20/2025 10:0 3 PM CDT 02/20/2025 10:50 PM CDT us Milton Rubio MD LAB BLOOD ORDERABLES Final Resul t Performing Organization Address [facility] Co de Phone Number [facility] [place] [address] * Critical result callback Cardio chemistry (02/20/2025 10:03 PM CDT) Date Notified [id number] Time Notified 2332 [facility] Test name Trop I hs base [facility] Called/Read Back Srinath [facility] Credentials TONO [facility] Called By NELSON [facility] Blood 02/20/2025 10:0 3 PM CDT 02/20/2025 10:50 PM CDT us Jaimie Giordano MD LAB BLOOD ORDERABLES Final Result Performing Organization Address City/[facility]/ZIP Co de Phone Number [facility] [place] [address] * (ABNORMAL) eGFR (02/20/2025 10:03 PM CDT) [...] Giordano MD LAB BLOOD ORDERABLES Final Result [facility] [place] [address] * (ABNORMAL) aPTT (02/20/2025 10:03 PM CDT) aPTT 45(H) 28 - 38 sec Comment: Interpretive Data Heparin therapeutic range: 66.0 - 100.0 seconds. Range based on correlation with therapeutic heparin activity range of 0.3 - 0.7 Units/mL. Current interpretive data was last revised on 2023. Blood 02/20/2025 10:0 3 PM CDT 02/20/2025 10:54 PM CDT Narrative [facility] - 02/20/2025 11:03 PM CDT Baseline prior to heparin initiation Jaimie Giordano MD LAB BLOOD ORDERABLES Final Result [facility] [place] [address] * Protime-INR (02/20/2025 10:03 PM CDT) [facility] PT 11.7 9.7 - 13.0 sec INR 1.08 0.90 - 1.20 [facility] Comment: Interpretive data Oral anticoagulant therapeutic ranges: Venous thromboembolism prophylaxis or treatment: 2.0-3.0 CARDIOLOGY Standard range: 2.0-3.0 High-intensity range: 2.5-3.5 Refer to indication-specific guidelines for appropriate target ranges for prosthetic heart valve replacement. Current interpretive data was last revised on 2019. Blood 02/20/2025 10:0 3 PM CDT 02/20/2025 10:54 PM CDT Narrative [facility] - 02/20/2025 11:03 PM CDT Baseline prior to heparin initiation Jaimie Giordano MD LAB BLOOD ORDERABLES Final Result [facility] [place] [address] * (ABNORMAL) CBC without differential (02/20/2025 10:03 PM CDT) [facility] WBC 5.88 3.80 - 9.90 K/cumm Hgb 13.0 11.9 - 15.5 g/dL [facility] Hct 41.0 35.6 - 45.5 % [facility] Plt 178 150 - 400 K/cumm [facility] MPV 10.6 9.1 - 12.3 fL [facility] RBC 4.60 3.90 - 5.20 M/cumm [facility] MCV 89.1 81.3 - 96.4 fL [facility] MCH 28.3 27.1 - 33.3 pg [facility] MCHC 31.7(L) 32.3 - 35.7 g/dL [facility] RDW CV 15.3(H) 11.1 - 14.9 % [facility] RDW SD 49.6(H) 35.7 - 48.1 fL [facility] NRBC abs 0.00 0.00 - 0.01 K/cumm [facility] Blood 02/20/2025 10:0 3 PM CDT 02/20/2025 10:50 PM CDT Narrative [facility] - 02/20/2025 11:02 PM CDT Baseline prior to heparin initiation us Jaimie Giordano MD LAB BLOOD ORDERABLES Final Result [facility] [place] [address] * (ABNORMAL) Phosphorus (02/20/2025 10:03 PM CDT) Phosphorus, pl 9.2(H) 2.3 - 4.5 mg/dL Blood 02/20/2025 10:0 3 PM CDT 02/20/2025 10:50 PM CDT us Jaimie Giordano MD LAB BLOOD ORDERABLES Final Result Performing Organization Address [facility] Co de Phone Number [facility] [place] [address] * (ABNORMAL) Magnesium (02/20/2025 10:03 PM CDT) Magnesium 2.8(H) 1.4 - 2.5 mg/dL Blood 02/20/2025 10:0 3 PM CDT 02/20/2025 10:50 PM CDT Jaimie Giordano MD LAB BLOOD ORDERABLES Final Result Performing Organization Address City/[facility] Co de Phone Number [facility] [place] [address] * (ABNORMAL) Lipid panel (02/20/2025 10:03 PM [...] on 2018. Triglycerides 166(H) <=149 mg/dL [facility] Comment: Interpretive Data Ages < or = [...] on 2018. HDL 34(L) >=40 mg/dL [facility] Comment: Interpretive Data Ages < or = [...] 2018. LDL, calculated 133(H) <=129 mg/dL [facility] Comment: Interpretive Data Ages < or = [...] 3. Bill Lyn et al. ANANTH Cardiol. 2020 February 18;5(5):540-548. doi: [email or web address] Current Interpretive Data was last revised on 2024. Non-HDL Cholesterol 163 mg/dL [facility] Comment: Interpretive Data Ages < or = [...] last revised on 2018. Chol/HDL ratio 6 [facility] Blood 02/20/2025 10:0 3 PM CDT 02/20/2025 10:50 PM CDT us Jaimie Giordano MD LAB BLOOD ORDERABLES Final Result [facility] One [facility] [place] [address] * (ABNORMAL) Comprehensive metabolic panel (02/20/2025 10:03 PM CDT) Sodium 138 135 - 145 mmol/L Potassium, pl 4.6 3.3 - 4.9 mmol/L [facility] Chloride 92(L) 97 - 110 mmol/L [facility] CO2 23 22 - 32 mmol/L [facility] Anion gap 23(H) 2 - 15 mmol/L [facility] BUN 55(H) 6 - 25 mg/dL [facility] Creatinine 13.60(H) 0.60 - 1.10 mg/dL [facility] Glucose 101 70 - 199 mg/dL [facility] Comment: Interpretive Data Fasting glucose [...] 2022. Calcium 6.9(L) 8.5 - 10.3 mg/dL [facility] Bilirubin, total 0.2 0.1 - 1.2 mg/dL [facility] Protein, pl 7.1 6.5 - 8.5 g/dL [facility] Albumin 3.2(L) 3.5 - 5.0 g/dL [facility] Alk phos 74 40 - 130 Units/L [facility] ALT 16 7 - 45 Units/L [facility] AST 30 10 - 45 Units/L [facility] Blood 02/20/2025 10:0 3 PM CDT 02/20/2025 10:50 PM CDT us Jaimei Giordano MD LAB BLOOD ORDERABLES Final Result [facility] One [facility] Department [place] [address] * ECG 12 lead (02/20/2025 9:19 PM CDT) [facility] Ventricular Rate EKG/Min 72 BPM [facility] Atrial Rate 72 BPM [facility] [place]-Interval (MSEC) 120 ms [facility] QRS-Interval (MSEC) 96 ms [facility] QT-Interval (MSEC) 440 ms [facility] QTc 481 ms [facility] P [place] 92 degrees [facility] R [place] -31 degrees [facility] T [place] 140 degrees [facility] Diagnosis Sinus rhythm with Premature atrial complexes Left axis deviation Incomplete right bundle branch block Minimal voltage criteria for LVH, may be normal variant ( [place] product ) Anteroseptal infarct , age undetermined T wave abnormality, consider lateral ischemia Abnormal ECG atrial-paced complexes When compared with ECG of 20-FEB-2025 15:12, (unconfirmed) Premature atrial complexes are now Present Anteroseptal infarct is now Present Confirmed by HARJINDER HANDY M.D ([id number]) on 02/23/2025 12:46:43 PM [facility] 02/20/2025 9:19 PM CDT 02/23/2025 12:46 PM CDT Jaimie Giordano MD ECG ORDERABLES Victoria becerra Result [facility] * (ABNORMAL) Troponin T high-sensitivity 6-hour (02/20/2025 5:36 PM CDT) Trop T hs 911(C) <=14 ng/L Comment: Critical Result called to and read back by Parminder limon, DATE: 2025-02-20 18:15:52 BY: [email or web address] Interpretive Data For further hscTnT resources including the diagnostic algorithm and an aid in interpretation, copy and paste this link: https://nrl.testcatalog.org/show/hsTrop Current Interpretive Data last revised 2020. Trop T hs interp Significa nt(C) [facility] Comment:Critical Result call ed to and read back by Parminder [email or web address], DATE: 2025-02-20 18:15:52 BY: [email or web address] Blood 02/20/2025 5:36 PM CDT 02/20/2025 5:45 PM CDT Khanh Shankar DO LAB BLOOD ORDERABLES Final Result Performing Organization Address [facility] de Phone Number [facility] [address] [address] * (ABNORMAL) eGFR (02/20/2025 5:36 PM CDT) eGFR 3(L) >=60 mL/min/1. 73 [...] ORDERABLES Final Result Performing Organization Address [facility] Co de Phone Number [facility] [address] [place] [place] [address] * Heparin anti factor Xa activity (02/20/2025 5:36 PM CDT) Pathologist [facility] Anti Factor Xa <0.10 IUnits/mL Comment: Interpretive [...] PM CDT 02/20/2025 5:45 PM CDT Narrative [facility] - 02/20/2025 6:39 PM CDT Baseline prior to heparin initiation Khanh Shankar DO LAB BLOOD ORDERABLES Final Result Performing Organization Address [facility] Co de Phone Number [facility] [address] [facility] Department [place] [address] * Hepatitis B surface antibody (immune status) Blood (02/20/2025 5:36 PM CDT) [facility] HBsAb (immune status) Nonreactive Comment: Interpretive Data [...] GENERAL ORDERABLES Final Result Performing Organization Address City/[facility]/ZIP Co de Phone Number [facility] [place] [employer] [place] [address] * Hepatitis B Surface Antigen Blood (02/20/2025 5:36 PM CDT) [facility] HepBsAg Nonreactive Nonreactive Blood 02/20/2025 5:36 PM CDT 02/20/2025 5:45 PM CDT Girish Maya MD LAB MICROBIOLOGY - GENERAL ORDERABLES Final Result Performing Organization Address [facility] Co de Phone Number NON[address] [place] [place] [address] * (ABNORMAL) Protime-INR (02/20/2025 5:36 PM CDT) [facility] PT 15.2(H) 12.0 - 14.6 sec Comment:Ref Range High INR 1.2 0.9 - 1.2 [facility] Comment: Ref Range High Interpretive data Oral [...] ORDERABLES Final Result Performing Organization Address [facility] Co de Phone Number [address] [place] [place] [address] * (ABNORMAL) CBC without differential (02/20/2025 5:36 PM CDT) [facility] WBC 5.51 3.80 - 9.90 K/cumm Hgb 12.1 11.9 - 15.5 g/dL [facility] Hct 38.4 35.6 - 45.5 % [facility] Plt 153 150 - 400 K/cumm [facility] MPV 10.5 9.1 - 12.3 fL [facility] RBC 4.30 3.90 - 5.20 M/cumm [facility] MCV 89.3 81.3 - 96.4 fL [facility] MCH 28.1 27.1 - 33.3 pg [facility] MCHC 31.5(L) 32.3 - 35.7 g/dL [facility] RDW CV 15.1(H) 11.1 - 14.9 % [facility] RDW SD 49.1(H) 35.7 - 48.1 fL [facility] NRBC abs 0.00 0.00 - 0.01 K/cumm [facility] Blood 02/20/2025 5:36 PM CDT 02/20/2025 5:45 PM CDT Narrative [facility] - 02/20/2025 5:48 PM CDT Baseline prior to heparin initiation Khanh Shankar DO LAB BLOOD ORDERABLES Final Result [facility] [address] [facility] Department [place] [address] * (ABNORMAL) Basic metabolic panel (02/20/2025 5:36 PM CDT) [facility] Sodium 136 135 - 145 mmol/L Potassium, pl 5.8(H) 3.3 - 4.9 mmol/L [facility] Comment:Delta - Results Revi ewed Chloride 94(L) 97 - 110 mmol/L [facility] CO2 23 22 - 32 mmol/L [facility] Anion gap 19(H) 2 - 15 mmol/L [facility] BUN 55(H) 6 - 25 mg/dL [facility] Creatinine 13.90(H) 0.60 - 1.10 mg/dL [facility] Glucose 87 70 - 199 mg/dL [facility] Comment: Interpretive Data Fasting glucose >/= [...] 2022. Calcium 6.7(L) 8.5 - 10.3 mg/dL [facility] Blood 02/20/2025 5:36 PM CDT 02/20/2025 5:45 PM CDT Khanh Shankar DO LAB BLOOD ORDERABLES Final Result Performing Organization Address City/[facility]/ZIP Co de Phone Number [facility] [address] [facility] Department [place] [address] * ECG 12 lead (02/20/2025 3:12 PM CDT) Ventricular Rate EKG/Min 72 BPM [facility] Atrial Rate 72 BPM [facility] [place]-Interval (MSEC) 106 ms [facility] QRS-Interval (MSEC) 92 ms [facility] QT-Interval (MSEC) 450 ms [facility] QTc 492 ms [facility] P [place] 79 degrees [facility] R [place] -40 degrees [facility] T [place] 133 degrees [facility] Diagnosis Sinus rhythm with sinus arrhythmia with short [place] Left axis deviation T wave abnormality, consider lateral ischemia Prolonged QT Abnormal ECG When compared with ECG of 20-FEB-2025 15:07, Sinus rhythm has replaced Atrial fibrillation Confirmed by MD MIKE, HENRY ([id number]) on 02/21/2025 5:43:47 PM [facility] 02/20/2025 3:12 PM CDT 02/21/2025 5:43 PM CDT Khanh Shankar DO ECG ORDERABLES Final Resul t [facility] * ECG 12 lead (02/20/2025 3:07 PM CDT) Ventricular Rate EKG/Min 68 BPM [facility] Atrial Rate 67 BPM [facility] QRS-Interval (MSEC) 84 ms [facility] QT-Interval (MSEC) 454 ms [facility] QTc 482 ms [facility] R [place] -39 degrees [facility] T [place] 119 degrees [facility] Diagnosis Suspect unspecified pacemaker failure Atrial fibrillation Left axis deviation Anterior infarct (cited on 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-MAY-2024) T wave abnormality, consider lateral ischemia Abnormal ECG When compared with ECG of 20-FEB-2025 10:47, Atrial fibrillation has replaced Sinus rhythm Confirmed by MD MIKE, HENRY ([id number]) on 02/21/2025 5:43:35 PM [facility] 02/20/2025 3:07 PM CDT 02/21/2025 5:43 PM CDT Khanh Shankar DO ECG ORDERABLES Final Resul t [facility] * (ABNORMAL) Troponin T high-sensitivity 4-hour (02/20/2025 2:55 PM CDT) Trop T hs 834(C) <=14 ng/L Comment: Critical Result called to and read back by Niko [email or web address], DATE: 2025-02-20 15:27:21 BY: [email or web address] Interpretive Data For further hscTnT resources including the diagnostic algorithm and an aid in interpretation, copy and paste this link: https://nrl.testcatalog.org/show/hsTrop Current Interpretive Data last revised 2020. Trop T hs pct delta 36(C) % [facility] Comment:Critical Result call ed to and read back by Niko [email or web address], DATE: 2025-02-20 15:27:21 BY: [email or web address] Trop T hs interp Significa nt(C) [facility] Comment:Critical Result call ed to and read back by Niko [email or web address], DATE: 2025-02-20 15:27:21 BY: [email or web address] Blood 02/20/2025 2:55 PM CDT 02/20/2025 2:57 PM CDT Khanh Shankar DO LAB BLOOD ORDERABLES Final Result Performing Organization Address [facility] Co de Phone Number [facility] [address] [facility] [place] [address] * Blood culture Blood (02/20/2025 2:33 PM CDT) Report Final Report: No growth Comment:Testing performed by : [facility], [address] [place]., [address] Blood 02/20/2025 2:33 PM CDT 02/20/2025 6:26 PM CDT [facility] 02/25/2025 7:00 AM CDT From a different [...] performance characteristics have been verified by the [facility]. For questions about this culture, contact the Microbiology Laboratory at [phone]. Interpretive data was last revised on 24. Khanh Pabon [facility] MICROBIOLOGY - GENERAL ORDERABLES Final Result Performing Organization Address [facility]/ZIP Co de Phone Number [place] [address] [facility] [place] [address] * Blood culture Blood (02/20/2025 2:23 PM CDT) Report Final Report: No growth Comment:Testing performed by : [facility], [address] [facility], [place]., [address] Blood 02/20/2025 2:23 PM CDT 02/20/2025 6:26 PM CDT Narrative CAMERON LEIJA - 02/25/2025 7:00 AM CDT Collection->Peripheral 1. [...] performance characteristics have been verified by the [facility]. For questions about this culture, contact the Microbiology Laboratory at [phone]. Interpretive data was last revised on 24. Khanh Shankar DO LAB MICROBIOLOGY - GENERAL ORDERABLES Final Result [facility] [address] [facility] [place] [address] * (ABNORMAL) Troponin T high-sensitivity 2-hour (02/20/2025 2:02 PM CDT) Trop T hs 785(C) <=14 ng/L Comment: Critical Result called to and read back by Cecilia [email or web address], DATE: 2025-02-20 14:27:31 BY: [email or web address] Interpretive Data For further hscTnT resources including the diagnostic algorithm and an aid in interpretation, copy and paste this link: https://nrl.testcatalog.org/show/hsTrop Current Interpretive Data last revised 2020. Trop T hs delta See Comment ng/L CAM[facility]ON LEIJA Comment:Inappropriate collec tion time to report a delta. Trop T hs pct delta See Comment % CAMERON LEIJA Comment:Inappropriate collec tion time to report a delta. Trop T hs interp See Comment CAMERON LEIJA Comment:Inappropriate collec tion time to report a delta. Blood 02/20/2025 2:02 PM CDT 02/20/2025 2:03 PM CDT Khanh Shankar DO LAB BLOOD ORDERABLES Final Result [facility] [address] [facility] [place] [address] * CT Chest WO Contrast (02/20/2025 1:06 [...] by Rc Cody M.D. T: Report ID: [id number] Reading Location: [id number] Procedure Note Rc Cody, DO - 02/20/2025 [...] by Rc Cody M.D. T: Report ID: [id number] Reading Location: [place] [address] Khanh Shankar DO IMG CT PROCEDURES Final [...] by Rc Cody M.D. T: Report ID: [id number] Reading Location: [id number] Procedure Note Rc Cody DO - 02/20/2025 [...] by Rc Cody M.D. T: Report ID: [id number] Reading Location: [place] [address] us Khanh Shankar DO IMG XR PROCEDURES Final Res ult * (ABNORMAL) Troponin T high-sensitivity series (baseline, 2hr, 4hr, 6hr) (02/20/2025 10:52 AM CDT) Trop T hs 611(C) <=14 ng/L Comment: Critical Result called to and read back by [id number], DATE: 2025-02-20 11:39:27 BY: [id number] Interpretive Data For further hscTnT resources including the diagnostic algorithm and an aid in interpretation, copy and paste this link: https://nrl.testcatalog.org/show/hsTrop Current Interpretive Data last revised 2020. Blood 02/20/2025 10:5 2 AM CDT 02/20/2025 10:56 AM CDT us Khanh Shankar DO LAB BLOOD ORDERABLES Final Result [facility] [address] [facility] [place] [address] * Sepsis Lactate w/ Reflex (02/20/2025 10:52 AM CDT) Sepsis Lactate 1.8 0.7 - 2.0 mmol/L Blood 02/20/2025 10:5 2 AM CDT 02/20/2025 10:57 AM CDT [facility]LO[facility] ORDERABLES Final Result Performing Organization Address [facility] Co de Phone Number [place] [address] [place] [address] * (ABNORMAL) eGFR (02/20/2025 10:52 AM CDT) [...] AM CDT 02/20/2025 10:56 AM CDT us Cassidy Pabon Shankar DO LAB BLOOD ORDERABLES Final Result Performing Organization Address City/[facility]/ZIP Co de Phone Number [place] [address] [place] [address] * (ABNORMAL) Differential, auto (02/20/2025 10:52 AM CDT) Pathologist [facility] Neutrophil abs 4.13 1.50 - 6.50 K/cumm Imm gran abs 0.02 0.00 - 0.10 K/cumm [facility] Lymphocyte abs 0.61(L) 0.80 - 3.30 K/cumm [facility] Monocyte abs 0.28 0.20 - 0.80 K/cumm [facility] Eosinophil abs 0.15 0.00 - 0.50 K/cumm [facility] Basophil abs 0.02 0.00 - 0.10 K/cumm [facility] Neutrophil pct 79.2 % [facility] Comment: Interpretive Data Percent cell count reference ranges are not reported, since discordance with absolute values may lead to misinterpretation of CBC data. Current Interpretive Data was last revised on 2018. Imm gran pct 0.4 % [facility] Comment: Interpretive Data Percent cell count reference ranges are not reported, since discordance with absolute values may lead to misinterpretation of CBC data. Current Interpretive Data was last revised on 2018. Lymphocyte pct 11.7 % [facility] Comment: Interpretive Data Percent cell count reference ranges are not reported, since discordance with absolute values may lead to misinterpretation of CBC data. Current Interpretive Data was last revised on 2018. Monocyte pct 5.4 % [facility] Comment: Interpretive Data Percent cell count reference ranges are not reported, since discordance with absolute values may lead to misinterpretation of CBC data. Current Interpretive Data was last revised on 2018. Eosinophil pct 2.9 % [facility] Comment: Interpretive Data Percent cell count reference ranges are not reported, since discordance with absolute values may lead to misinterpretation of CBC data. Current Interpretive Data was last revised on 2018. Basophil pct 0.4 % [facility] Comment: Interpretive Data Percent cell count reference ranges are not reported, since discordance with absolute values may lead to misinterpretation of CBC data. Current Interpretive Data was last revised on 2018. Blood 02/20/2025 10:5 2 AM CDT 02/20/2025 10:56 AM CDT Khanh Shankar DO LAB BLOOD ORDERABLES Final Result Performing Organization Address [facility] Co de Phone Number [place] [address] [address] * (ABNORMAL) CBC with auto differential (02/20/2025 10:52 AM CDT) [facility] WBC 5.21 3.80 - 9.90 K/cumm Hgb 13.2 11.9 - 15.5 g/dL [facility] Hct 42.8 35.6 - 45.5 % [facility] Plt 158 150 - 400 K/cumm [facility] MPV 10.8 9.1 - 12.3 fL [facility] RBC 4.75 3.90 - 5.20 M/cumm [facility] MCV 90.1 81.3 - 96.4 fL [facility] MCH 27.8 27.1 - 33.3 pg [facility] MCHC 30.8(L) 32.3 - 35.7 g/dL [facility] RDW CV 15.2(H) 11.1 - 14.9 % [facility] RDW SD 49.4(H) 35.7 - 48.1 fL [facility] NRBC abs 0.00 0.00 - 0.01 K/cumm [facility] Blood 02/20/2025 10:5 2 AM CDT 02/20/2025 10:56 AM CDT Khanh Shankar LAB BLOOD ORDERABLES Final Result Performing Organization Address [facility] Co de Phone Number [facility] [address] [address] * (ABNORMAL) Comprehensive metabolic panel (02/20/2025 10:52 AM CDT) [facility] Sodium 137 135 - 145 mmol/L Potassium, pl 4.4 3.3 - 4.9 mmol/L [facility] Chloride 92(L) 97 - 110 mmol/L [facility] CO2 24 22 - 32 mmol/L [facility] Anion gap 21(H) 2 - 15 mmol/L [facility] BUN 48(H) 6 - 25 mg/dL [facility] Creatinine 13.30(H) 0.60 - 1.10 mg/dL [facility] Glucose 72 70 - 199 mg/dL [facility] Comment: Interpretive Data Fasting glucose >/= [...] 2022. Calcium 7.2(L) 8.5 - 10.3 mg/dL [facility] Bilirubin, total 0.3 0.1 - 1.2 mg/dL [facility] Protein, pl 6.6 6.5 - 8.5 g/dL [facility] Albumin 3.1(L) 3.5 - 5.0 g/dL [facility] Alk phos 66 40 - 130 Units/L [facility] ALT 14 7 - 45 Units/L [facility] AST 20 10 - 45 Units/L [facility] Blood 02/20/2025 10:5 2 AM CDT 02/20/2025 10:56 AM CDT Khanh Shankar DO LAB BLOOD ORDERABLES Final Result [facility] [address] [facility] [place] [address] * ECG 12 lead (02/20/2025 10:47 AM CDT) Pathologist [facility] Ventricular Rate EKG/Min 78 BPM [facility] Atrial Rate 78 BPM [facility] NJ-Interval (MSEC) 112 ms [facility] QRS-Interval (MSEC) 92 ms [facility] QT-Interval (MSEC) 424 ms [facility] QTc 483 ms [facility] P [place] 86 degrees [facility] R [place] -33 degrees [facility] T [place] 139 degrees [facility] Diagnosis Sinus rhythm with Premature supraventricular complexes Left axis deviation Septal infarct (cited on 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-MAY-2024) T wave abnormality, consider lateral ischemia Abnormal ECG When compared with ECG of 28-JAN-2025 10:10, Sinus rhythm has replaced Electronic atrial pacemaker Confirmed by SULTAN NDIAYE M.D. ([id number]) on 02/22/2025 4:12:38 PM [facility] [employer] 02/20/2025 10:4 7 AM CDT 02/22/2025 4:12 PM CDT Khanh Shankar DO ECG ORDERABLES Final Resul t [facility] [employer] [facility] * XR Orthopantogram [employer] (01/28/2025 10:32 AM [...] caries or periapical lucency. Electronically signed by: Favio Lau Pena, M.D. us Tamar Tang MD IMG XR PROCEDURES Final [...] 12 lead (01/28/2025 10:10 AM CDT) Pathologist [facility] Ventricular Rate EKG/Min 79 BPM [facility] Atrial Rate 79 BPM [facility] NJ-Interval (MSEC) 164 ms [facility] QRS-Interval (MSEC) 88 ms [facility] QT-Interval (MSEC) 396 ms [facility] QTc 454 ms [facility] P [place] 112 degrees [facility] R [place] -24 degrees [facility] T [place] 129 degrees [facility] Diagnosis Atrial-paced rhythm in a pattern of bigeminy Anteroseptal infarct (cited on 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-MAY-2024) ST & T wave abnormality, consider lateral ischemia Abnormal ECG When compared with ECG of 25-DEC-2024 06:56, Premature atrial complexes are no longer Present Confirmed by HARJINDER HANDY M.D ([id number]) on 01/29/2025 11:51:51 AM [facility] 01/28/2025 10:1 0 AM CDT 01/29/2025 11:51 AM CDT Tamar Tang MD ECG ORDERABLES Final Result [facility] * Mislabeled Test (01/28/2025 9:47 AM CDT) [facility] Location Other location Reason No Signature On Blood Bank Specimen [facility] Mislabel resolution Testing canceled [facility] Blood 01/28/2025 9:47 AM CDT 01/28/2025 11:45 AM CDT Abigail Vides MD LAB BLOOD ORDERABLES Final Result [facility] One [facility] [place] [address] * (ABNORMAL) eGFR (01/28/2025 9:42 AM CDT) [facility] eGFR 3(L) >=60 mL/min/1. 73 m2 Comment: [...] ORDERABLES Final Res ult Performing Organization Address City/[facility]/ZIP Co de Phone Number [facility] [place] [address] * HIV 1/2 Antibody plus p24 Antigen Blood (01/28/2025 9:42 AM CDT) Pathologist [facility] HIV 1/2 ab + p24 ag Nonreactive [...] ORD ERABLES Final Result Performing Organization Address City/[facility]/ZIP Co de Phone Number [facility] [place] [address] * Hepatitis C antibody Blood (01/28/2025 9:42 AM CDT) Hep C Ab Nonreactive Nonreactive Comment:Antibodies to HCV no t detected. Does NOT exclude the possibility of recent exposure to HCV. Current interpretive data was last revised on 22 Blood 01/28/2025 9:42 AM CDT 01/28/2025 10:56 AM CDT Tamar Tang MD LAB MICROBIOLOGY - GENERAL ORD ERABLES Final Result [facility] [place] [place] [address] * Hepatitis B core antibody, total Blood (01/28/2025 9:42 AM CDT) Hep B core IgG/IgM Nonreactive Nonreactive Blood 01/28/2025 9:42 AM CDT 01/28/2025 10:56 AM CDT Tamar Tang MD LAB MICROBIOLOGY - GENERAL ORD ERABLES Final Result Performing Organization Address [facility] Co de Phone Number [facility] [place] [employer] [place] [address] * Hepatitis B surface antibody (immune status) Blood (01/28/2025 9:42 AM CDT) Pathologist [facility] HBsAb (immune status) Nonreactive Comment:This result is consi stent with a lack of immunity to Hepatitis B Virus when used in the setting of routine screening. Current interpretative data was last revised on 22 Blood 01/28/2025 9:42 AM CDT 01/28/2025 10:56 AM CDT Tamar Tang MD LAB MICROBIOLOGY - GENERAL ORD ERABLES Final Result [facility] [place] [employer] [address] * Hepatitis B Surface Antigen Blood (01/28/2025 9:42 AM CDT) [facility] HepBsAg Nonreactive Nonreactive Blood 01/28/2025 9:42 AM CDT 01/28/2025 10:56 AM CDT Tamar Tang MD LAB MICROBIOLOGY - GENERAL ORD ERABLES Final Result [facility] [place] [address] * (ABNORMAL) CBC without differential (01/28/2025 9:42 AM CDT) [facility] WBC 5.32 3.80 - 9.90 K/cumm Hgb 13.1 11.9 - 15.5 g/dL [facility] Hct 41.5 35.6 - 45.5 % [facility] Plt 156 150 - 400 K/cumm [facility] MPV 10.5 9.1 - 12.3 fL [facility] RBC 4.64 3.90 - 5.20 M/cumm [facility] MCV 89.4 81.3 - 96.4 fL [facility] MCH 28.2 27.1 - 33.3 pg [facility] MCHC 31.6(L) 32.3 - 35.7 g/dL [facility] RDW CV 16.1(H) 11.1 - 14.9 % [facility] RDW SD 51.8(H) 35.7 - 48.1 fL [facility] NRBC abs 0.00 0.00 - 0.01 K/cumm [facility] Blood 01/28/2025 9:42 AM CDT 01/28/2025 10:58 AM CDT Abigail Vides MD LAB BLOOD ORDERABLES Final Result [facility] [place] [address] * (ABNORMAL) Phosphorus (01/28/2025 9:42 AM CDT) Pathologist [facility] Phosphorus, pl 7.4(H) 2.3 - 4.5 mg/dL Blood 01/28/2025 9:42 AM CDT 01/28/2025 10:56 AM CDT Tamar Tang MD LAB BLOOD ORDERABLES Final Res ult Performing Organization Address [facility] de Phone Number [facility] [place] [address] * PTH (01/28/2025 9:42 AM CDT) [facility] PTH 43 15 - 65 pg/mL Blood 01/28/2025 9:42 AM CDT 01/28/2025 10:56 AM CDT Tamar Tang MD LAB BLOOD ORDERABLES Final Res ult Performing Organization Address [facility] de Phone Number [facility] [place] [employer] [place] [address] * (ABNORMAL) Hemoglobin A1c (01/28/2025 9:42 AM CDT) [facility] Hgb A1C 5.8(H) 4.0 - 5.6 % Estimated Average Glucose 120 mg/dL [facility] Comment: The ADA recommends reporting [...] Final Res ult Performing Organization Address [facility] Co de Phone Number [facility] One [facility] [place] [address] * (ABNORMAL) Comprehensive metabolic panel (01/28/2025 9:42 AM CDT) Sodium 137 135 - 145 mmol/L Potassium, pl 5.7(H) 3.3 - 4.9 mmol/L [facility] Chloride 95(L) 97 - 110 mmol/L C[facility]ER [facility] CO2 27 22 - 32 mmol/L [facility] Anion gap 15 2 - 15 mmol/L [facility] BUN 61(H) 6 - 25 mg/dL [facility] Creatinine 14.50(H) 0.60 - 1.10 mg/dL [facility] Glucose 77 70 - 199 mg/dL [facility] Comment: Interpretive Data Fasting glucose [...] 2022. Calcium 7.3(L) 8.5 - 10.3 mg/dL [facility] Bilirubin, total 0.3 0.1 - 1.2 mg/dL [facility] Protein, pl 6.8 6.5 - 8.5 g/dL [facility] Albumin 3.2(L) 3.5 - 5.0 g/dL [facility] Alk phos 64 40 - 130 Units/L [facility] ALT 20 7 - 45 Units/L [facility] AST 24 10 - 45 Units/L [facility] Blood 01/28/2025 9:42 AM CDT 01/28/2025 10:56 AM CDT Tamar Tang MD LAB BLOOD ORDERABLES Final Res ult [facility] One [facility] [place] [address] * HLA Antibody Screen - SAB (Class [...] a method developed and validated by the [facility] HLA laboratory based on an FDA-approved IVD kit (LABScreen Single-Antigen, [employer], [place], [place]). All patient serum samples are pretreated with EDTA before the screen to prevent complement interference. Additional serum treatments, such as adsorption and DTT treatment, may be performed as indicated. Interpretive comments: Low risk: MFI 1221-5738. Moderate risk: MFI 1540-4139. Increased risk: MFI >/= 5000. The presence [...] antigens to avoid. Testing performed at the [facility], [address] [place] [address], 5th floor, [place], [address]. CLIA # [id number]. Rosa Millan, Ph.D., Fly Rail Operator, [facility] Laboratory Wilmer Prescott M.D., Ph.D., Foundry Worker Apprentice, [facility] Alma Payton, Ph.D., CLIA Foundry Worker Apprentice, [facility] Current methodology and interpretive comments last revised on 11/15/2022. us Salnia Hector MD LAB BLOOD ORDERABLES Final Resul t [facility] from Last 3 Months
--- OUTSIDE RECORDS SUMMARY | 2025-04-22 12:03 | XMS_ITS ---
Author Organization [facility] Address [address] [place] [address] Care Team Providers Care Radiographer Angiogram Name Role Phone Quinton Rowan MD Unavailable [phone] Pal Downey DO Primary Care Provider Tami Flores RN Unavailable [phone] Cricket Escalante MD Unavailable [phone] Gael Sprague MD PhD Unavailable Brad Turner MD Unavailable [phone] Margarita Montoya MD Unavailable Luca Lott MD Unavailable Pb Galloway MD Unavailable [phone] Felipe Gerber MD Unavailable [phone] Transplant Episode Kidney Candidate [facility] ([place], [place]) [facility] Center waitlisted on 09/05/2021 Marked as Inactive on 03/13/2024 Reason: 03 - Candidate Work-up Incomplete Kidney CoordinatorTami Flores RN Email: N/A Scores Score Value Updated Exceptions/Reas ons CPRA Not available EPTS (Calc) 29 04/22/2025 [place] Organ Diagnosis Organ Primary Contributory Kidney Polycystic Kidneys Care Team Name Role Phone Fax Email Tami Flores RN Kidney Coordinator [phone] N/A Mariann Bobo Nuclear Equipment Design Engineer [phone] N/A N/A Events Pre-Transplant Referred: 10/06/2020 Evaluation began: 03/24/2021 Committee: 09/04/2021 Center waitlisted: 09/05/2021 Dialysis History Dialysis History Start End Type Comments Center 01/09/2022 Peritoneal 7 days a week D mine Escalante [facility] Dialysis Center Information Center Phone Fax Address [facility] [phone] [address] [place] [id number]
--- OUTSIDE RECORDS SUMMARY | 2025-04-22 12:03 | XMS_ITS | Continuity of Care Document ---
Author Organization [facility] Address [address] [place] [address] [place] [address] Phone Care Team Providers Care Reinsurance Analyst Name Role Phone Ez Kc Unavailable Unavailable Procedures Procedure Date Office/outpatient Visit, Est Office/outpatient Visit, Est Advance Directives Directive Yes / No Effective Date File Name No Information Encounters Encounter Description Practice Location Reason(s) For Visit Diagnoses Date Provider Providers Copied on Encounter Office/outpat ient Visit, [facility] [place] [address] [place] [address] [address], [place], [place], [id number], tel:[phone] [facility] No Information 0 Doisy Ez. [facility] , [address], [place], [place], [facility], [place]. tel:[phone] Office/outpat ient Visit, [facility] [place] [address] [place] [address] [address], [place], [place], [id number], tel:[phone] [facility] No Information 0 Camara OD Дмитрий. [address] , [address], [place], [address], [place]. tel:[phone] Family History Family Member Type Diagnosis Age At Onset No Information Payers Payer name Insurance type Covered libertarian ID Authoriza tion(s) Medicaid [facility] [id number] Social History Type Description Quantity Date Captured [...]
--- OUTSIDE RECORDS SUMMARY | 2025-04-22 12:03 | XMS_ITS | Clinical Summary ---
Author Organization [facility] [employer] Address [address] [place] [address] Care Team Providers Care Power Transformer Inspector Name Role Phone Danielle Hawkins Primary Care Provider Unavailabl e Source Comments [facility] [employer],non-owned Affiliates and Associated Physician Practices is amultiple site organization consisting of ambulatory clinics and hospital sitesin [place], [place], [place] and [place]. This disclosure is being madepursuant to the Care Everywhere program and may not contain all information available regarding this patient. Last updated 18.[facility] [employer] Allergies Active Allergy Reactions Criticality Noted Date [...] on file Legal Sex Female 5:36 PM RECLAMATION FURNACE OPERATOR Gender Identity Not on file Sexual Orientation Not on file Last Filed Vital Signs Vital Sign Reading Time Taken Comments Blood Pressure 145/91 09/06/2016 9:59 AM RECLAMATION FURNACE OPERATOR Pulse 79 09/06/2016 9:59 AM RECLAMATION FURNACE OPERATOR Temperature 36.4 C (97.5 F) 12/23/2015 3:20 PM RECLAMATION FURNACE OPERATOR Respiratory Rate 12 09/06/2016 9:59 AM RECLAMATION FURNACE OPERATOR Oxygen Saturation 100% 12/23/2015 3:20 PM RECLAMATION FURNACE OPERATOR Inhaled Oxygen Concentration - - Weight 60.8 kg (134 lb) 09/06/2016 9:59 AM RECLAMATION FURNACE OPERATOR Height 162.6 cm (5' 4) 09/06/2016 9:59 AM RECLAMATION FURNACE OPERATOR Body Mass Index 23 09/06/2016 9:59 AM RECLAMATION FURNACE OPERATOR Plan of Treatment Health Maintenance Due Date Last Done Comments COLOGUARD (AGES 45-75) - COLON CA SCREENING 1971 COLON MONITORING 1971 COLONOSCOPY - COLON CA SCREENING 1971 CT COLONOGRAPHY - COLON CA SCREENING 1971 Colorectal Cancer Screening 1971 FIT - COLON CA SCREENING 1971 FLEX SIG - COLON CA SCREENING 1971 MAMMOGRAM 1971 MEDICARE AWV 12 MONTHS 1971 HIV SCREENING 1986 DTAP/TDAP/TD VACCINES (1 - Tdap) 1990 HEPATITIS B VACCINE (1 of 3 - 19+ 3-dose series) 1990 PAP SMEAR 1992 PNEUMOCOCCAL VACCINE 50+ (1 of 1 - PCV) 2021 ZOSTER VACCINE (1 of 2) 2021 COVID-19 VACCINE (1 - season) 2024 DEPRESSION SCREENING 10/21/2024 INFLUENZA VACCINE (Season Ended) 2025 10/21/2017 HEPATITIS C SCREENING Completed 02/20/2025 , 02/20/2025, 01/28/2025, Additional history exists HIB VACCINE Aged Out No longer eligi ble based on patient's age to complete this topic HPV VACCINE Aged Out No longer eligi ble based on patient's age to complete this topic MENINGOCOCCAL (Group B) VACCINE SHARED DECISION-MAKING Aged Out No longer eligible based on patient's age to complete this topic MENINGOCOCCAL GROUPS A/C/Y/W VACCINE Aged Out No longer eligible based on patient's age to complete this topic Insurance MEDICAID - OUT OF STATE Member Subscriber Plan / Payer (Ef fective for All Dates) Name:Ginger Copeland Relation to Subscriber:Self Name:JAYLINClareCOLINA Payer ID:Not on file Group ID:Not on file Type:Medicaid Address: [place] [id number] MEDICARE SELF PAY NO INSURANCE Member Subscriber Plan / Payer (Ef fective for All Dates) Name:Ginger Copeland Member ID:Not on file Relation to Subscriber:Not on file Name:GINGER COPELAND Subscriber ID:Not on file (Home) Address: [address] [place] [id number] Payer ID:Not on file Group ID:Not on file Type:Self Pay Address: [facility] Care Teams Power Transformer Inspector Relationship Specialty Start Date End Date Danielle Hawkins Update Information PCP - General 04/29/15
--- OUTSIDE RECORDS SUMMARY | 2025-04-22 12:03 | XMS_ITS | Encounter Summary ---
Author Organization [facility] Address [address] [place] [address] Phone Care Team Providers Care Wirer Street Light Name Role Phone Quinton Rowan MD Unavailable [phone] Pal Downey DO Primary Care Provider [phone] Tami Flores RN Unavailable [phone] Cricket Escalante MD Unavailable Gael Sprague MD PhD Unavailable Brad Turner MD Unavailable Margarita Montoya MD Unavailable Luca Lott MD Unavailable [phone] Pb Galloway MD Unavailable Felipe Gerber MD Unavailable [phone] Claire Rosales [facility] Unavailable Encounter Details Date Type Department Care Team [...] on file Legal Sex Female 4:06 AM DATE PULLER Gender Identity Female 01/16/2024 11:18 AM CDT [...] Recovered 11/15/2021 11/15/2021 03/15/2022 3:05 AM CDT Ring Surveillance: C. auris 02/21/2025 02/21/2025 02/28/2025 3:05 AM CDT documented as of this encounter Care Teams Wirer Street Light Relationship Specialty Start Date End Date Pal Downey DO PCP - General Internal Medicine 01/25/21 Quinton Rowan MD Referring Physician Cardiology 01/09/19 Tami Flores, [place] [address] [address] Registered Nurse Co Teacher 01/25/21 Cricket Escalante MD [address] [address] Referring Physician Nephrology 03/24/21 Gael Sprague MD PhD [address] [facility] [address] [id number] Fellow Endocrinology Diabetes & Metabolism 03/24/21 Brad Turner MD [address] [address] Consulting Physician Obstetrics and Gynecology 03/24/21 Margarita Montoya MD [address] [address] Consulting Physician Trauma Surgery 12/27/21 Luca Lott MD [address] [facility] [address] [address] Consulting Physician Cardiology 08/03/22 Pb Galloway MD [address] [facility] [address] [address] Cardiothoracic Surgery 05/25/24 Felipe Gerber MD [address] [facility] [address] [address] Consulting Physician Cardiology 05/25/24 Claire Rosales, [facility] [address] [facility] ([facility] Mailstop [phone] [place] [address] SHOP Outpatient Cableman 02/25/25 03/01/25 documented as of this encounter
--- OUTSIDE RECORDS SUMMARY | 2025-04-22 12:03 | XMS_ITS | Encounter Summary ---
Author Organization [facility] Address [address] [place] [address] Care Team Providers Care Research Project Manager Name Role Phone Quinton Rowan MD Unavailable Pal Downey DO Primary Care Provider [phone] Tami Flores RN Unavailable [phone] Cricket Escalante MD Unavailable Gael Sprague MD PhD Unavailable Brad Turner MD Unavailable [phone] Margarita Montoya MD Unavailable Luca Lott MD Unavailable Pb Galloway MD Unavailable [phone] Felipe eGrber MD Unavailable [phone] Encounter Details Date Type Department Care Team (Latest Contact Info) Description 04/20/2025 10:00 AM CDT - 04/20/2025 11:59 PM CDT Hospital Encounter [address] [address] ESRD (end stage renal disease) (HCC) Discharge Disposition: Discharge to home or self care Social History Tobacco Use Types Packs/Day Years [...] on file Legal Sex Female 4:06 AM CLINICAL HAEMATOLOGIST Gender Identity Female 01/16/2024 11:18 AM CDT Sexual Orientation Straight 01/16/2024 11 :18 AM CDT documented as of this encounter Medications at Time of Discharge acetaminophen (TYLENOL) 325 mg tablet Take 2 tablets (650 mg total) by mouth every 4 (four) hours as needed for pain 05/25/2024 aspirin 81 mg enteric coated tablet Take 1 tablet (81 mg total) by mouth daily 30 tablet 11 11/19/2024 11/19/19 clopidogreL (PLAVIX) 75 mg tablet TAKE 1 TABLET BY MOUTH EVERY DAY 90 tablet 1 12/08/2024 ergocalciferol (VITAMIN D) 50,000 unit capsule Take 1 capsule (50,000 Units total) by mouth once a week sundays11/11/2024 ferric citrate (Auryxia) 210 mg iron tablet Take 1 tablet (210 mg total) by mouth 2 (two) times a day with meals gabapentin (NEURONTIN) 100 mg capsule Take 1 capsule (100 mg total) by mouth once a week Fridays06/18/2024 gentamicin (GARAMYCIN) 0.1 % cream Apply 1 Application topically daily PD catheter access site 01/09/2022 levothyroxine (SYNTHROID) 137 mcg tablet Take 1 tablet (137 mcg total) by mouth daily 08/05/2023 loratadine (CLARITIN) 10 mg tablet Take 1 tablet (10 mg total) by mouth daily multivit-min/ferrou s fumarate (MULTI VITAMIN ORAL) Take 1 tablet by mouth every morning nitroglycerin (NITROSTAT) 0.[address] 1 tablet (0.4 mg total) under the tongue every 5 (five) minutes as needed for chest pain May repeat dose q 5 min, up to 3 doses total 30 tablet 11/05/2024 ondansetron ODT (ZOFRAN-ODT) 4 mg disintegrating tablet Take 1 tablet (4 mg total) by mouth every 8 (eight) hours as needed for nausea or vomiting 20 tablet 1 05/25/2024 VENTOLIN HFA 90 mcg/actuation inhaler Inhale 2 puffs every 4 (four) hours as needed for wheezing or shortness of breath 3 10/11/2018 azithromycin (ZITHROMAX) 500 mg tablet Take 1 tablet (500 mg total) by mouth once as needed (Prior to dental appts) 02/15/2025 calcitRIOL (ROCALTROL) 0.25 mcg capsule Take 1 capsule (0.25 mcg total) by mouth daily Sundays02/24/2025 evolocumab (REPATHA) syringe syringe Inject 1 mL (140 mg total) under the skin every 14 (fourteen) days 2 mL 3 04/08/2025 metoprolol XL (TOPROL-XL) 25 mg extended release tablet Take 0.5 tablets (12.5 mg total) by mouth daily 45 tablet 3 03/27/2025 vitamin B complex with vitamin C tablet Take 1 tablet by mouth daily documented as of this encounter Discharge Disposition Disposition Code Departure Means Destination Discharge to home or self care documented in this encounter Plan of Treatment Scheduled Procedures Name Priority Associated Diagnoses Date/Ti me TRANSPLANT KIDNEY ESRD (end stage renal disease) (HCC) documented as of this encounter Procedures Procedure Name Priority Date/Time Associated Diagnosis Comments HLA ANTIBODY SCREEN BY PRA OR SAB PER SCHEDULE (CLASS I AND CLASS II) Routine 04/20/2025 10:00 AM CDT ESRD (end stage renal disease) (HCC) documented in this encounter Results * HLA Antibody Screen by PRA or SAB per Schedule (Class I and Class II) (04/20/2025 10:00 AM CDT) Blood 04/20/2025 10:0 0 AM CDT Narrative HISTOTRAC - CLINICAL HAEMATOLOGIST Sample received in lab. Single Antigen Antibody Screen ordered. us Salina Hector MD LAB BLOOD ORDERABLES Final Resul t NACHO documented in this encounter Visit Diagnoses Diagnosis ESRD (end stage renal disease) (HCC) End stage renal disease documented in this encounter Care Teams Research Project Manager Relationship Specialty Start Date End Date Pal Downey DO PCP - General Internal Medicine 01/25/21 Quinton Rowan MD Referring Physician Cardiology 01/09/19 Tami Flores RN [address] [address] Registered Nurse Mottler Machine Feeder 01/25/21 Cricket Escalante MD [address] [address] Referring Physician Nephrology 03/24/21 Gael Sprague MD PhD [address] [address] Fellow Endocrinology Diabetes & Metabolism 03/24/21 Brad Turner MD [address] [address] Consulting Physician Obstetrics and Gynecology 03/24/21 Margarita Montoya MD [address] [id number] Consulting Physician Trauma Surgery 12/27/21 Luca Lott MD [address] [address] Consulting Physician Cardiology 08/03/22 Pb Galloway MD [address] [address] Cardiothoracic Surgery 05/25/24 Felipe Gerber MD [address] [address] Consulting Physician Cardiology 05/25/24 documented as of this encounter
--- OUTSIDE RECORDS SUMMARY | 2025-04-22 12:03 | XMS_ITS | Clinical Summary ---
Author Organization [facility] Address [address] [place] [phone] Phone Care Team Providers Care Rustic Fence Builder Name Role Phone ScarlettmelanyPal ibarra DO Primary Care Provider [phone] Allergies Active Allergy Reactions Criticality Noted Date [...] on file Legal Sex Female 9:07 AM [facility] Gender Identity Not on file Sexual Orientation Not on file Last Filed Vital Signs Vital Sign Reading Time Taken Comments Blood Pressure 122/70 12/22/2021 9:43 PM SUPERVISOR RIDES Pulse 72 12/22/2021 9:43 PM SUPERVISOR RIDES Temperature 36.2 C (97.2 F) 12/22/2021 9:43 PM SUPERVISOR RIDES Respiratory Rate - - Oxygen Saturation - - Inhaled Oxygen Concentration - - Weight 50.3 kg (111 lb) 12/22/2021 9:43 PM SUPERVISOR RIDES Height 162.6 cm (5' 4) 12/22/2021 9:43 PM SUPERVISOR RIDES Body Mass Index 19.05 12/22/2021 9:43 PM SUPERVISOR RIDES Plan of Treatment Health Maintenance Due Date Last Done Comments Influenza Vaccine (Season Ended) 2025 10/21/19 18 Insurance MEDICAID - [place] [facility] Care Teams Rustic Fence Builder Relationship Specialty Start Date End Date Pal Downey DO [address] [place] [id number] PCP - General Internal Medicine 02/04/19
--- OUTSIDE RECORDS SUMMARY | 2025-04-22 12:03 | XMS_ITS | Referral Summary ---
Author Organization [facility] Address [address] [place] [address] Care Team Providers Care Castings Trimmer Name Role Phone Quinton Rowan MD Unavailable Pal Downey DO Primary Care Provider [phone] Tami Flores RN Unavailable [phone] Cricket Escalante MD Unavailable Gael Sprague MD PhD Unavailable Brad Turner MD Unavailable [phone] Margarita Montoya MD Unavailable [phone] Luca Lott MD Unavailable [phone] Pb Galloway MD Unavailable Felipe Gerber MD Unavailable [phone] Encounters Date Type Department Care Team Description 04/20/2025 10:00 AM CDT - 04/20/2025 11:59 PM CDT Hospital Encounter [address] [address] ESRD (end stage renal disease) (HCC) Discharge Disposition: Discharge to home or self care 04/20/2025 2:00 PM CDT Ancillary Procedure [facility] [address] [place] [address] [address] [phone] Palpitations 04/20/2025 Orders Only [facility] Cardiology [facility] Medical Office Building 3 [address] [place] [address] Luca Lott MD Palpitations (Primary Dx) 04/07/2025 Telephone [facility] Transplant Kidney [address] [facility] [address] [phone] [place] [address] Tiarra Mcdermott 04/07/2025 Telephone [facility] Trans[facility] Kidney [address] [facility] [address] [phone] [place] [address] Tami Flores, TONO 04/07/2025 11:30 AM CDT Office Visit [address] Office Building 3 [address] [place] [phone] Luca Lott MD Nonrheumatic aortic valve stenosis (Primary Dx); Coronary artery disease involving susanville coronary artery of susanville heart without angina pectoris 03/27/2025 Orders Only [facility] Cardiology [address] [facility] 8th [place] [address] [place] [address] Claire Mcnally, TONO 03/25/2025 10:00 AM CDT - 03/25/2025 11:59 PM CDT Hospital Encounter [address] [address] ESRD (end stage renal disease) (HCC) Discharge Disposition: Discharge to home or self care 03/02/2025 SHOP/CHAP Initial Outreach [facility]NAGEMENT [address] [place] [address] Claire Rosales LCSW 03/01/2025 10:00 AM CDT - 03/01/2025 11:59 PM CDT Hospital Encounter [address] [address] ESRD (end stage renal disease) (HCC) Discharge Disposition: Discharge to home or self care 02/26/2025 SHOP/CHAP Initial Outreach [facility] [address] [place] [address] Claire Rosales LCSW 02/25/2025 SHOP/CHAP Initial Outreach [facility] [address] [place] [address] Claire Rosales LCSW 02/25/2025 SHOP/CHAP Initial Eligibility Review [facility] [address] [place] [address] Claire Rosales LCSW 02/20/2025 8:07 PM CDT - 02/24/2025 3:54 PM CDT Hospital Encounter [address] [phone] Jaimie Haddad MD Patel, Namrata Nikhil, MD Acute coronary syndrome (HCC) (Primary Dx); Chest pain [R07.9]; Coronary artery disease involving susanville coronary artery of sus[place] heart without angina pectoris [I25.10] Discharge Disposition: Discharge to home or self care 02/23/2025 11:33 AM CDT - 02/23/2025 12:53 PM CDT Surgery [facility] [address] [place] [phone] Luca Lott MD LEFT HEART CATHETERIZATION WITH CORONARY ANGIOGRAPHY AND WITH OR WITHOUT LEFT VENTRICULOGRAM [id number] 02/20/2025 10:41 AM CDT - 02/20/2025 7:48 PM CDT Emergency [address] [address] Khanh Shankar DO Potluri, Sobhana Krishna, MD Chest pain, unspecified type (Primary Dx); ESRD (end stage renal disease) (HCC) Discharge Disposition: Discharge to a critical access hospital 02/09/2025 Telephone [facility] Cardiology [address] [place] [address] 8th [place] [address] [place] [phone] Luca Lott MD 02/05/2025 Telephone [facility] Cardiology [address] [facility] Medical Office Building 3 [address] [place] [phone] Luca Lott MD inquiry from LAB ASSISTANT re: txp 02/05/2025 3:00 PM CDT Office Visit [facility] Cardiology [address] [place] [address] Medical Office Building 3 [address] [place] [phone] Miranda Joy NP Coronary artery disease involving susanville coronary artery of sus[place] heart without angina pectoris (Primary Dx); S/P TAVR (transcatheter aortic valve replacement); Nonrheumatic mitral valve stenosis; Chronic diastolic heart failure (HCC); Pre-transplant evaluation for end stage renal disease 01/28/2025 10:35 AM CDT - 01/28/2025 11:59 PM CDT Hospital Encounter [address] [address] Discharge Disposition: Discharge to home or self care 01/28/2025 10:02 AM CDT - 01/28/2025 11:59 PM CDT Hospital Encounter [facility] [address] [place] [address] ESRD (end stage renal disease) ([facility]) Discharge Disposition: Discharge to home or self care 01/28/2025 10:02 AM CDT - 01/28/2025 11:59 PM CDT Hospital Encounter [facility] [address] [place] [address] ESRD (end stage renal disease) ([facility]) Discharge Disposition: Discharge to home or self care 01/28/2025 10:02 AM CDT - 01/28/2025 11:59 PM CDT Hospital Encounter [facility] [address] [place] [address] ESRD (end stage renal disease) ([facility]) Discharge Disposition: Discharge to home or self care 01/28/2025 9:50 AM CDT Lab [facility] [place] [address] 01/28/2025 9:35 AM CDT Lab [facility] ([facility]) [address] [place] [address] Polycystic liver disease; ESRD (end stage renal disease) (HCC) 01/28/2025 8:00 AM CDT Office Visit [facility] Gastroenterology [address] [facility] 12th [place] [address] [place] [address] Abigail Vides MD Polycystic liver disease (Primary Dx) 01/22/2025 10:00 AM CDT - 01/22/2025 11:59 PM CDT Hospital Encounter [facility] [address] [place] [address] Discharge Disposition: Discharge to home or self care 01/22/2025 Orders Only [facility] Nephrology [address] [facility] 2nd Floor [address] [place] [address] Salina Hector MD from Last 3 Months Allergies Active Allergy [...] STOPS BREATHING Penicillins Anaphylaxis,Rash,Un known High 04/29/2015 Jeoddcq-Khq-Emn Reductase Inhibitors Muscle pain Medium 02/20/2025 Trialed [...] Application topically daily PD catheter access site Active loratadine (CLARITIN) 10 mg tablet Take 1 tablet (10 mg total) by mouth daily Active levothyroxine (SYNTHROID) 137 mcg tablet Take 1 tablet (137 mcg total) by mouth daily Active acetaminophen (TYLENOL) 325 mg tablet Take 2 tablets (650 mg total) by mouth every 4 (four) hours as needed for pain Active ondansetron ODT (ZOFRAN-ODT) 4 mg disintegrating tablet Take 1 tablet (4 mg total) by mouth every 8 (eight) hours as needed for nausea or vomiting 20 tablet 1 Active gabapentin (NEURONTIN) 100 mg capsule Take 1 capsule (100 mg total) by mouth once a week Fridays Active nitroglycerin (NITROSTAT) 0.4 mg SL tablet [...] BY MOUTH EVERY DAY 90 tablet 1 025 Active azithromycin (ZITHROMAX) 500 mg tablet Take 1 tablet (500 mg total) by mouth once as needed (Prior to dental appts) 025 Active vitamin B complex with vitamin C tablet Take 1 tablet by mouth daily Active calcitRIOL (ROCALTROL) 0.25 mcg capsule Take 1 capsule (0.25 mcg total) by mouth daily Sundays Active calcium carbonate (OS-MEENA) 1,250 mg (500 mg elemental) tablet Take 1 tablet (1,250 mg total) by mouth daily 30 tablet 025 Active metoprolol XL (TOPROL-XL) 25 mg extended release tablet Take 0.5 tablets (12.5 mg total) by mouth daily 45 tablet 3 025 Active evolocumab (REPATHA) syringe syringe Inject 1 mL (140 mg total) under the skin every 14 (fourteen) days 2 mL 3 025 Active ezetimibe (ZETIA) 10 mg tablet Take [...] (fourteen) days 2 mL 025 2024 Discontinued(R carroll) Active Problems Problem Noted Date Diagnosed Date [...] (02/01/2022): Added automatically from request for surgery [id number] Assessment & Plan (02/05/2025 3:15 PM CDT): Undergoing pre transplant evaluation. We will review with Dr. Lott regarding possible candidacy for transplant list given recent interventions. Continued to DAPT Disorder of peritoneal dialysis catheter 022 Overview (12/22/2021): Added automatically from request for surgery [id number] Chronic kidney disease, stage V 10/31/2021 Overview (08/21/2023): Added automatically from request for surgery [id number] Sick sinus syndrome 11/02/2020 Diastolic heart failure [...] Assessment & Plan (02/25/2019 11:43 AM CDT): [facility] with 95% LAD lesion, had [...] Assessment & Plan (02/24/2019 9:29 AM CDT): [facility] with 95% LAD lesion, had some RV dysfunction during AV repair and found to have RCA occlusion following LAD bypass - s/p IABP placement - CABG to LAD and LCA 4/24 - continue ASA, Statin, and BB (increase the bb if tolerated, blood pressure on the low side now) CT/Wires are out - continue to mobilize patient and aggressive IS Assessment & Plan (02/20/2019 5:17 AM CDT): [facility] with 95% LAD lesion, had some RV dysfunction during AV repair and found to have RCA occlusion following LAD bypass - s/p IABP placement - CABG to LAD and LCA Assessment & Plan (02/19/2019 2:08 AM CDT): [facility] with 95% LAD lesion, had some RV dysfunction during AV repair and found to have RCA occlusion following LAD bypass - s/p IABP placement - CABG to LAD and LCA Assessment & Plan (02/17/2019 7:38 PM CDT): [facility] with 95% LAD lesion, had some RV dysfunction during AV repair and found to have RCA occlusion following LAD bypass - s/p IABP placement - CABG to LAD and LCA - on Epi and Milrinone, wean epi as above Assessment & Plan (02/16/2019 11:38 PM CDT): [facility] with 95% LAD lesion, had some RV dysfunction during AV repair and found to have RCA occlusion following LAD bypass - s/p IABP placement - CABG to LAD and LCA - on Epi and Milrinone of inotropy Assessment & Plan (02/11/2019 6:16 PM CDT): [facility] with 95% LAD lesion, had some RV dysfunction during AV repair and found to have RCA occlusion following LAD bypass - s/p IABP placement - CABG to LAD and LCA - on Epi and Milrinone of inotropy Assessment & Plan (02/08/2019 5:38 PM CDT): -Patient w/ chest pain/SOB along w/ significant troponin elevation -Plan for [facility] w/ possible PCI tomorrow pending [...] to 4.35 - valve team consulted, 02/09 [facility] with severe 1 vessel disease [...] (02/09/2019): Added automatically from request for surgery [id number] Assessment & Plan (05/17/2019 9:19 AM CDT): [...] (02/10/2019): Added automatically from request for surgery [id number] Assessment & Plan (02/05/2025 3:15 PM CDT): [...] with left shoulder pain similar to previous MS -EKG changes per OSH --Slight elevation in [...] currently stable Daily BMPs, while inpatient Home organ installer is Dr. Escalante Continue lasix 40 mg [...] kidney disease, baseline Cr 2.4-2.6. F/b OSH organ installer. Apparently discussions for potential need for renal txp being discussed. - Cr at baseline on adm - avoid nephrotoxins, renally dose meds - continue calcitriol 0.5 mcg/day - Cr 2.75, received pre-cath hydration, stable 2.7 Headache 05/02/2016 Moderate COPD (chronic obstr uctive pulmonary disease) ([facility]) 11/02/2015 Assessment & Plan (08/02/2022 [...] AM CDT): Alexis TAVR 05/21 [facility], Dr. Lott. CT TAVR on [...] not a candidate for intervention (declined by [facility]) Assessment & Plan (05/17/2019 9:28 [...] AV. Referred to valve team by primary equine breeder Dr. Rowan. Seen 02/02 by valve team [...] around 2.4 Dr Escalante is her home organ installer Assessment & Plan (02/23/2019 12:20 PM CDT): Pt above POW by 2 kg. Lasix on hold due to elevation in Creatinine Baseline creat is around 2.4 Dr Escalante is her home organ installer Agitation requiring sedation protocol 02/14/2019 02/23/2019 Acute [...] she had reactions to (?). Per OSH organ installer's note in Care Everywhere, pt tried metoprolol [...] Dates Next Due Hep B Vaccine 02/24/2024, 4,09/23/2023,08/30/2023,04/30/2022,060 10/2021,02/19/2022 Influenza, Split 10/21/2017 PPD TEST 03/23/2024,03/25/2023 [...] on file Legal Sex Female 4:06 AM SALES SUPPORT REP Gender Identity Female 01/16/2024 11:18 AM CDT [...] disease) (HCC) Medical Devices Implanted Type Area Sanitarian Inspector Device Identifier Shelf Expiration Date Model / Serial / Lot Angio-Seal Evolution 6fr Vascular Closure [id number] - [id number] - [id number] Implanted:Qty: 1 on 03/09/2022 by Luca Lott MD at [facility] Collagen Right: Femoral Terumo Medical Pam 09/19/2022 [id number] / [id number] / [id number] Terumo [employer] Pam Angio-Seal Vip 6fr Closere Device 304654 - [id number] - [id number] Implanted:Qty: 1 on 07/24/2022 by Luca Lott MD at [facility] Collagen [employer] Pam 03/20/2023 979301 / [id number] / [id number] Terumo Medical Pam Angio-Seal Vip 6fr Closere Device 220221 - [id number] - [id number] Implanted:Qty: 1 on 05/21/2024 at [facility] Collagen Right: Common Femoral Artery [employer] Medical Pam 01/09/2025 994606 / [id number] / [id number] Terumo [employer] Pam Angio-Seal Vip Bondek-Plus 8fr .038in 70cm Hemostatic Latex Free 503783 - [id number] - [id number] Implanted:Qty: 1 on 05/21/2024 by Felipe Gerber MD at [facility] Collagen Right: Common Femoral Artery Terumo Xylos Corporation Pam 01/06/2025 947457 / [id number] / [id number] Terumo Medical Pam Angio-Seal Vip 6fr Closere Device 921503 - [id number] - [id number] Implanted:Qty: 1 on 02/23/2025 by Luca Lott MD at [facility] Collagen Terumo Xylos Corporation Pam 06/15/2025 209177 / [id number] / [id number] Medtronic Cardiac Rhythm Mgmt 5076-52 Capsurefix Novus 6.2fr 2mm 52cm Bipolar Screw In Implantable Latex Free - [id number] - [id number] Implanted:Qty: 1 on 05/15/2019 by Lane Ramos MD PhD at [facility] Lead Medtronic Inc 03/11/2021 5076-52 / [id number] / Medtronic Cardiac Rhythm Mgmt 5076-45 Capsurefix Novus 6.2fr 2mm 45cm Bipolar Screw In Implantable - [id number] - [id number] Implanted:Qty: 1 on 05/15/2019 by Lane Ramos MD PhD at [facility] Lead Medtronic Inc 03/30/2021 5076-45 / [id number] / [employer]c [phone] Linear 7.5fr 6in Insertion Kit Nuclear Reactor Operator Introducer Sheath - [id number] Implanted:Qty: 1 on 02/10/2019 by Luca Lott MD at [facility] Other - see comments [employer] [phone] 1 / / Description:IABP Medtronic Inc [id number] [place] Curl Cath Beta-Cap Holden 15fr 57cm 2 Cuff Clamp Adapter - [id number] - [id number] Implanted:Qty: 1 on 11/21/2021 by Carlos Kmaara MD at [facility] Other - see comments N/A: Abdomen Medtronic Inc 11/30/2022 8811-31 3015 / 0 / [id number] Medtronic Cardiac Rhythm Mgmt W1dr01 [place] Wirelessly Pacemaker Cardiac - [id number] - [id number] Implanted:Qty: 1 on 05/15/2019 by Lane Ramos MD PhD at [facility] Pacemaker Medtronic Inc [id number] 09/17/2020 W1DR01 / [id number] / Jamil Lifesciences Valve Aortic Trnscath Brown 3 Ultra Resilia 20mm [id number] - [id number] - [id number] Implanted:Qty: 1 on 05/21/2024 by Felipe Gerber MD at [facility] Prosthetic Valve N/A: Aortic Valve Jamil Lif[employer]iences 02/27/2027 [id number] [id number] / [id number] / Medtronic Inc Resolute Clive 4mm 2.1-2.7fr 12mm 140cm Rapid Exchange Radiopaque [id number] - [id number] - [id number] Implanted:Qty: 1 on 03/09/2022 by Luca Lott MD at [facility] Stent Left: Coronary Medtronic Inc 12/06/2022 [id number] 012UX / [id number] / [id number] Description:LAD Biotronik Inc Stent Coronary De Rx Cocr Ors Msn 4.0x15mm 729556 - [id number] - [id number] Implanted:Qty: 1 on 07/24/2022 by Luca Lott MD at [facility] Stent Biotronik Inc 09/05/2023 [id number] / [id number] / [id number] Medtronic Card Vasc Surgery 4.0 X 15mm Clive Wagoner Rx Coronary Stent [id number] - [id number] - [id number] Implanted:Qty: 1 on 11/19/2024 by Luca Lott MD at [facility] Stent N/A: Saphenous Vein Graft Medtronic Card Vasc Surgery 05/05/2027 [id number] [id number] / [id number] / [id number] Medtronic Card Vasc Surgery 2.50 X 12mm K[place]haw Wagoner Rx Coronary Stent [id number] - [id number] - [id number] Implanted:Qty: 1 on 12/25/2024 by Luca Lott MD at [facility] Stent Medtronic Card Vasc Surgery 06/03/2027 [id number] / [id number] / [id number] [employer] Pam Synergy Xd Monorail 3mm 20mm 144cm Delivery System 1 Access Port [id number] - [id number] - [id number] Implanted:Qty: 1 on 02/23/2025 by Luca Lott MD at [facility] Stent [employer] Pam 06/08/2026 [id number] / [id number] / [id number] Painter Vascular System Closure Repair Femoral Artery Suture Mediated Perclose Prostyle 79888-50 - [id number] - [id number] Implanted:Qty: 1 on 05/21/2024 by Felipe Gerber MD at [facility] Vascular Closure Device Left: Common Femoral Artery Painter Vascular 02/17/2026 29100-5 3 / [id number] / [id number] Terumo Medical Pam Angio-Seal Vip 6fr Closere Device 817932 - [id number] - [id number] Implanted:Qty: 1 on 11/19/2024 by Luca Lott MD at [facility] Vascular Closure Device N/A: Saphenous Vein Graft Ter[employer]o Medical Pam 04/29/2025 798517 / [id number] / [id number] Terumo Medical Pam Angio-Seal Vip 6fr Closere Device 046368 - [id number] - [id number] Implanted:Qty: 1 on 12/25/2024 by Sanket Quiroz MD at [facility] Vascular Closure Device Right: Common Femoral Artery [employer] Medical Pam 06/30/2025 114703 / [id number] / [id number] Description:RFA [employer] Pam Angio-Seal Vip Bondek-Plus 8fr .038in 70cm Hemostatic Latex Free 576068 - [id number] - [id number] Implanted:Qty: 1 on 12/25/2024 by Sanket Quiroz MD at [facility] Vascular Closure Device Right: Femoral Vein [employer] Medical Pam 07/21/2025 698168 / [id number] / [id number] Description:RFV [employer] Pam [id number] Supple Ronna-Guard Bertrand Processing 4x4cm Patch Cardiovascular - [id number] - [id number] Implanted:Qty: 1 on 02/11/2019 by Christopher Holman MD at [facility] N/A: Chest [employer] Pam 06/03/2023 [id number] / 3211-04 0010 / [id number] Jamil Lifesciences [id number] Certitude Brown 3 Atrion 18fr Transcatheter Introducer Crimper - [id number] - [id number] Implanted:Qty: 1 on 02/11/2019 by Christopher Holman MD at [facility] N/A: Heart [employer] [id number] [id number] / [id number] / Medtronic Inc [id number] [place] Curl Cath Beta-Cap Holden 15fr 57cm 2 Cuff Clamp Adapter - [id number] Implanted:Qty: 1 on 12/27/2021 by Margarita Montoya MD at [facility] N/A: Abdomen Medtronic Inc 10/14/2023 8811-31 3015 [...] 10:0 0 AM CDT Narrative [facility] - SALES SUPPORT REP Sample received in lab. Single Antigen Antibody Screen ordered. us Salina Hector MD LAB BLOOD ORDERABLES Final Resul t [facility] * HLA Antibody Screen by PRA or SAB per Schedule (Class I and Class II) (03/01/2025 10:00 AM CDT) Blood 03/01/2025 10:0 0 AM CDT Narrative [facility] - SALES SUPPORT REP Sample received in lab and stored. No testing performed at this time. us Salina Hector MD LAB BLOOD ORDERABLES Final Resul t [facility] * (ABNORMAL) eGFR (02/24/2025 9:50 AM [...] DO LAB BLOOD ORDERABLES Final Result CAMERON SALOMON [facility] Department [place] [address] * (ABNORMAL) Differential, auto (02/24/2025 9:50 AM CDT) Pathologist [facility] Neutrophil abs 4.72 1.50 - 6.50 K/cumm Imm gran abs 0.02 0.00 - 0.10 K/cumm [facility] Lymphocyte abs 0.73(L) 0.80 - 3.30 K/cumm [facility] Monocyte abs 0.42 0.20 - 0.80 K/cumm [facility] Eosinophil abs 0.21 0.00 - 0.50 K/cumm [facility] Basophil abs 0.04 0.00 - 0.10 K/cumm [facility] Neutrophil pct 76.9 % [facility] Comment: Interpretive Data Percent cell count reference ranges are not reported, since discordance with absolute values may lead to misinterpretation of CBC data. Current Interpretive Data was last revised on 2018. Imm gran pct 0.3 % [facility] Comment: Interpretive Data Percent cell count reference ranges are not reported, since discordance with absolute values may lead to misinterpretation of CBC data. Current Interpretive Data was last revised on 2018. Lymphocyte pct 11.9 % [facility] Comment: Interpretive Data Percent cell count reference ranges are not reported, since discordance with absolute values may lead to misinterpretation of CBC data. Current Interpretive Data was last revised on 2018. Monocyte pct 6.8 % [facility] Comment: Interpretive Data Percent cell count reference ranges are not reported, since discordance with absolute values may lead to misinterpretation of CBC data. Current Interpretive Data was last revised on 2018. Eosinophil pct 3.4 % [facility] Comment: Interpretive Data Percent cell count reference ranges are not reported, since discordance with absolute values may lead to misinterpretation of CBC data. Current Interpretive Data was last revised on 2018. Basophil pct 0.7 % [facility] Comment: Interpretive Data Percent cell count reference ranges are not reported, since discordance with absolute values may lead to misinterpretation of CBC data. Current Interpretive Data was last revised on 2018. Blood 02/24/2025 9:50 AM CDT 02/24/2025 10:17 AM CDT Dasha Montez LAB BLOOD ORDERABLES Final Result Performing Organization Address [facility] Co de Phone Number [facility] Department [place] [address] * (ABNORMAL) CBC with auto differential (02/24/2025 9:50 AM CDT) [facility] WBC 6.14 3.80 - 9.90 K/cumm Hgb 12.5 11.9 - 15.5 g/dL [facility] Hct 39.5 35.6 - 45.5 % [facility] Plt 177 150 - 400 K/cumm [facility] MPV 10.8 9.1 - 12.3 fL [facility] RBC 4.37 3.90 - 5.20 M/cumm [facility] MCV 90.4 81.3 - 96.4 fL [facility] MCH 28.6 27.1 - 33.3 pg [facility] MCHC 31.6(L) 32.3 - 35.7 g/dL [facility] RDW CV 15.9(H) 11.1 - 14.9 % [facility] RDW SD 51.0(H) 35.7 - 48.1 fL [facility] NRBC abs 0.00 0.00 - 0.01 K/cumm [facility] Blood 02/24/2025 9:50 AM CDT 02/24/2025 10:17 AM CDT Dasha Montez LAB BLOOD ORDERABLES Final Result Performing Organization Address City/[facility]/ZIP Co de Phone Number [facility] Department [place] [address] * (ABNORMAL) Basic metabolic panel (02/24/2025 9:50 AM CDT) [facility] Sodium 136 135 - 145 mmol/L Potassium, pl 5.0(H) 3.3 - 4.9 mmol/L [facility] Chloride 93(L) 97 - 110 mmol/L [facility] CO2 27 22 - 32 mmol/L [facility] Anion gap 16(H) 2 - 15 mmol/L [facility] BUN 43(H) 6 - 25 mg/dL [facility] Creatinine 11.83(H) 0.60 - 1.10 mg/dL [facility] Glucose 82 70 - 199 mg/dL [facility] Comment: Interpretive Data Fasting glucose [...] 2022. Calcium 7.9(L) 8.5 - 10.3 mg/dL [facility] Blood 02/24/2025 9:50 AM CDT 02/24/2025 10:17 AM CDT Dasha Montez DO LAB BLOOD ORDERABLES Final Result [facility] Department [place] [address] * (ABNORMAL) eGFR (02/23/2025 11:43 PM CDT) [...] BLOOD ORDERABLES Final Result Performing Organization Address [facility]/ZIP Co de Phone Number [facility] [place] [place] [address] * VerifyNow clopidogrel (02/23/2025 11:43 PM CDT) [...] ORDERABLES Fin al Result Performing Organization Address City/[facility]/ZIP Co de Phone Number [facility] [place] [address] * (ABNORMAL) Phosphorus (02/23/2025 11:43 PM CDT) Pathologist [facility] [place] Phosphorus, pl 7.6(H) 2.3 - 4.5 mg/dL Blood 02/23/2025 11:4 3 PM CDT 02/24/2025 12:22 AM CDT Jaimie Giordano MD LAB BLOOD [place] [address] * Magnesium (02/23/2025 11:43 PM CDT) [facility] Magnesium 2.4 1.4 - 2.5 mg/dL Blood 02/23/2025 11:4 3 PM CDT 02/24/2025 12:22 AM CDT Jaimie Giordano MD LAB BLOOD ORDERABLES Final Result Performing Organization Address City/[facility] [place] [address] * (ABNORMAL) Basic metabolic panel (02/23/2025 11:43 PM CDT) [facility] Sodium 133(L) 135 - 145 mmol/L Potassium, pl 4.9 3.3 - 4.9 mmol/L [facility] Chloride 95(L) 97 - 110 mmol/L [facility] CO2 27 22 - 32 mmol/L [facility] Anion gap 11 2 - 15 mmol/L [facility] BUN 52(H) 6 - 25 mg/dL [facility] Creatinine 11.94(H) 0.60 - 1.10 mg/dL [facility] Glucose 89 70 - 199 mg/dL [facility] Comment: Interpretive Data Fasting glucose [...] 2022. Calcium 8.0(L) 8.5 - 10.3 mg/dL [facility] Blood 02/23/2025 11:4 3 PM CDT 02/24/2025 12:22 AM CDT us Jaimie Giordano MD LAB BLOOD ORDERABLES Final Result [facility] [place] [address] * LEFT HEART CATHETERIZATION WITH CORONARY ANGIOGRAPHY [...] CORONARY ANGIOGRAM / PERCUTANEOUS CORONARY INTERVENTION Patient: Esutardo Copeland is a 54 y.o. female : 1970 MR number: [id number] Date of Service: 02/23/2025 Medical Supply Technician: Luca Lott MD Fellow: Sanket Quiroz MD Fellow: Hiral Valverde MD Referring physician: Shankar INDICATION: NSTEMI PATIENT CLINICAL PROFILE: Estuardo Copeland is a 54 y.o. female with a history of Coronary artery disease status post coronary bypass grafting and numerous PCIs, aortic stenosis status post surgical valve placement with redo TAVR and ischemic cardiomyopathy on peritoneal dialysis presents for NSTEMI with chest pain. She recently underwent PCI to the vein graft to her LAD and her [place] left main. She now presents for urgent cardiac catheterization PROCEDURE: The risks, benefits and alternatives of the procedures and moderate sedation were explained to the patient and informed consent was obtained. The patient was brought to the roofing laborer and placed on the table Bilateral [...] the LAD angiogram performed using a 6 Dominican 3D RC Percutaneous coronary intervention performed on theSVG to the Proximal LAD. This was an ACC/AHA Type C. Initial Lesion Length 12mm and final lesion Length 20mm. Initial KAROLINA Flow 3 Final KAROLINA Flow 3. Equipment used: 6 3DRC, Kenefic [place]a IVUS Catheter, [place] 50 wire, 0.9 mm laser atherectomy catheter [...] it was extremely difficult. We used a [place]oshgi[place] 50 wire with extreme difficulty wire through [...] 319(H) 123 - 168 sec POC Performer [id number] [facility] POC Device Number [id number] [facility] Blood 02/23/2025 1:41 PM CDT 02/23/2025 1:41 PM CDT Ellie Saenz MD LAB POCT ORDERABLES - DE VICE Final Result Performing Organization Address [facility] Co de Phone Number [facility] [place] [address] * (ABNORMAL) POCT Activated clotting time, low range (02/23/2025 12:35 PM CDT) ACT 351(H) 123 - 168 sec POC Performer [id number] [facility] POC Device Number [id number] [facility] Blood 02/23/2025 12:3 5 PM CDT 02/23/2025 12:35 PM CDT Ellie Saenz MD LAB POCT ORDERABLES - DE VICE Final Result Performing Organization Address [facility] Co de Phone Number [facility] [place] [address] * (ABNORMAL) aPTT (02/23/2025 6:36 AM CDT) [...] BLOOD ORDERABLES Final Result Performing Organization Address [facility] Co de Phone Number [facility] [place] [address] * (ABNORMAL) eGFR (02/22/2025 11:07 PM CDT) [...] BLOOD ORDERABLES Final Result Performing Organization Address [facility]/ZIP Co de Phone Number [facility] [place] [address] * (ABNORMAL) aPTT (02/22/2025 11:07 PM CDT) [...] ORDERABLES Fin al Result Performing Organization Address [facility] Co de Phone Number [facility] [place] [address] * (ABNORMAL) Phosphorus (02/22/2025 11:07 PM CDT) Phosphorus, pl 7.2(H) 2.3 - 4.5 mg/dL Blood 02/22/2025 11:0 7 PM CDT 02/22/2025 11:50 PM CDT Jaimie Giordano MD LAB BLOOD ORDERABLES Final Result Performing Organization Address [facility] Co de Phone Number [facility] [place] [address] * Magnesium (02/22/2025 11:07 PM CDT) Magnesium 2.5 1.4 - 2.5 mg/dL Blood 02/22/2025 11:0 7 PM CDT 02/22/2025 11:50 PM CDT Jaimie Giordano MD LAB BLOOD ORDERABLES Final Result Performing Organization Address [facility] Co de Phone Number [facility] [place] [address] * (ABNORMAL) Basic metabolic panel (02/22/2025 11:07 PM CDT) Sodium 134(L) 135 - 145 mmol/L Potassium, pl 4.5 3.3 - 4.9 mmol/L [facility] Chloride 95(L) 97 - 110 mmol/L [facility] CO2 28 22 - 32 mmol/L [facility] Anion gap 11 2 - 15 mmol/L [facility] BUN 56(H) 6 - 25 mg/dL [facility] Creatinine 11.97(H) 0.60 - 1.10 mg/dL [facility] Glucose 104 70 - 199 mg/dL [facility] Comment: Interpretive Data Fasting glucose [...] 2022. Calcium 7.8(L) 8.5 - 10.3 mg/dL [facility] Blood 02/22/2025 11:0 7 PM CDT 02/22/2025 11:50 PM CDT Jaimie Giordano MD LAB BLOOD ORDERABLES Final Result [facility] Department [place] [address] * (ABNORMAL) aPTT (02/22/2025 2:25 PM CDT) aPTT 54(H) 28 - 38 sec Comment: Interpretive Data Heparin therapeutic range: 66.0 - 100.0 seconds. Range based on correlation with therapeutic heparin activity range of 0.3 - 0.7 Units/mL. Current interpretive data was last revised on 2023. Blood 02/22/2025 2:25 PM CDT 02/22/2025 2:59 PM CDT us Dasha Fajardo Tc DO LAB BLOOD ORDERABLES Final Result [facility] Department [place] [address] * TRANSTHORACIC ECHO (TTE) COMPLETE W DOPPLER/CF W CONTRAST (02/22/2025 1:39 PM CDT) EF Mod BP 51 % CONS SCIMAGE Anatomical Region Laterality Modality Ultrasound 02/22/2025 12:3 8 PM CDT Narrative 02/22/2025 2:49 PM CDT [facility] [place] [address] Transthoracic Echocardiographic Report Patient Name: ESTUARDO COPELAND M : 1970 (54y 3m) Gender: F Study Date: 02/22/2025 12:38:48 PM Ht(Inch): 64 Wt(Lb): 123.9 BSA: 1.59 Damage Cutter: Marisol Arciniega RDCS [facility] Location: [id number] Order Provider: ELLIE SAENZ Heart Rate: 75 [...] flow reversal in the hepatic veins. Mild NE. Est. PASP 40-45 mm Hg. 7. Physiologic [...] Procedure Note Rc Koehler MD - 02/22/2025 [facility] [place] [address] Transthoracic Echocardiographic Report Patient Name: ESTUARDO COPELAND M : 1970 (54y 3m) Gender: F Study Date: 02/22/2025 12:38:48 PM Ht(Inch): 64 Wt(Lb): 123.9 BSA: 1.59 Damage Cutter: Marisol Arciniega RDCS [facility] Location: [id number] OrderProvider: ELLIE SAENZ Heart Rate: 75 BMI: [...] systolic flow reversal in the hepatic veins.Mild NE. Est. PASP 40-45 mm Hg. 7. Physiologic [...] [ 2.70 - 3.70 ] MV Decel Hzui251.43 msec [ 104.00 - 258.00 ] Ao [...] ECG 12 lead (02/22/2025 9:14 AM CDT) Ventricular Rate EKG/Min 80 BPM [facility] Atrial Rate 80 BPM [facility] NE-Interval (MSEC) 96 ms [facility] QRS-Interval (MSEC) 90 ms [facility] QT-Interval (MSEC) 412 ms [facility] QTc 475 ms [facility] P [place] 90 degrees [facility] R [place] -30 degrees [facility] T [place] 133 degrees [facility] Diagnosis Sinus rhythm with sinus arrhythmia with short NE Left axis deviation Left ventricular hypertrophy ( Romhilt-Pierce ) Cannot rule out Septal infarct (cited on 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-FEB-2025) ST & T wave abnormality, consider lateral ischemia Abnormal ECG When compared with ECG of 22-FEB-2025 01:51, (unconfirmed) Sinus rhythm has replaced Atrial fibrillation Confirmed by HARJINDER HANDY M.D ([id number]) on 03/05/2025 11:42:44 AM [facility] 02/22/2025 9:14 AM CDT 03/05/2025 11:42 AM CDT Jaimie Giordano MD ECG ORDERABLES Victoria l Result Performing Organization Address [facility] de Phone Number [facility] * (ABNORMAL) Troponin I high-sensitivity 4-hour (02/22/2025 6:24 AM CDT) Trop I hs 1,868(C) <=17 ng/L Comment: Previous critical value noted within 48 hours ago. Interpretive Data For further hscTnI resources including the diagnostic algorithm and an aid in interpretation, copy and paste this link: [email or web address]/[email or web address] Current Interpretive Data last revised 2020. Trop I hs pct delta -19(C) % [facility] Comment:Previous critical va lue noted within 48 hours ago. Trop I hs interp Significa nt(C) [facility] Comment:Previous critical va lue noted within 48 hours ago. Blood 02/22/2025 6:24 AM CDT 02/22/2025 6:48 AM CDT us Milton Rubio MD LAB BLOOD ORDERABLES Final Resul t Performing Organization Address [facility] de Phone Number [facility] Department [place] [address] * (ABNORMAL) Troponin I high-sensitivity 2-hour (02/22/2025 4:51 AM CDT) Trop I hs 2,146(C) <=17 ng/L Comment: Previous critical value noted within 48 hours ago. Interpretive Data For further hscTnI resources including the diagnostic algorithm and an aid in interpretation, copy and paste this link: [email or web address]/[email or web address] Current Interpretive Data last revised 2020. Trop I hs pct delta -7 % [facility] Trop I hs interp Equivocal [facility] Blood 02/22/2025 4:51 AM CDT 02/22/2025 5:26 AM CDT Milton Rubio MD LAB BLOOD ORDERABLES Final Resul t Performing Organization Address [facility] de Phone Number [facility] [place] [place] [address] * (ABNORMAL) aPTT (02/22/2025 4:51 AM CDT) [...] ORDERABLES Final Resul t Performing Organization Address [facility] [place] [address] * Infection Prevention Anthony auris PCR, surveillance Axilla/Groin (02/22/2025 2:05 AM CDT) Anthony auris DNA Not Detected Not Detected [facility] Comment: Interpretive Data Testing performed by [facility] using the Pablo estelle 6800 Anthony auris assay. This assay detects DNA from Anthony auris using Real-Time PCR. This assay is laboratory developed and is not cleared by the [place] Food and Drug Administration. The performance characteristics have been verified by the [facility]. Axilla/Groin 02/22/2025 2:05 AM CDT 02/22/2025 3:14 AM CDT Narrative [facility] - 02/22/2025 2:38 PM CDT Order placed by [facility] due to ring surveillance. us Instant Order Generic Provider LAB MICROBIOLOGY - GENERAL ORDERABLES Final Result Performing Organization Address [facility] de Phone Number [facility] Department [place] [address] [facility] * (ABNORMAL) Troponin I high-sensitivity series [...] ORDERABLES Final Resul t Performing Organization Address [facility] Co de Phone Number [facility] Department [place] [address] * (ABNORMAL) eGFR (02/22/2025 2:05 AM CDT) [...] ORDERABLES Final Resul t Performing Organization Address City/[facility]/ZIP Co de Phone Number [facility] [place] [address] * Magnesium (02/22/2025 2:05 AM CDT) Magnesium 2.5 1.4 - 2.5 mg/dL Blood 02/22/2025 2:05 AM CDT 02/22/2025 2:58 AM CDT Milton Rubio MD LAB BLOOD ORDERABLES Final Resul t Performing Organization Address City/[facility]/ZIP Co de Phone Number [facility] [place] [address] * (ABNORMAL) Comprehensive metabolic panel (02/22/2025 2:05 AM CDT) Sodium 138 135 - 145 mmol/L Potassium, pl 4.3 3.3 - 4.9 mmol/L [facility] Chloride 95(L) 97 - 110 mmol/L [facility] CO2 26 22 - 32 mmol/L [facility] Anion gap 17(H) 2 - 15 mmol/L [facility] BUN 55(H) 6 - 25 mg/dL [facility] Creatinine 12.63(H) 0.60 - 1.10 mg/dL [facility] Glucose 99 70 - 199 mg/dL [facility] Comment: Interpretive Data Fasting glucose [...] 2022. Calcium 8.1(L) 8.5 - 10.3 mg/dL [facility] Bilirubin, total 0.2 0.1 - 1.2 mg/dL [facility] Protein, pl 6.0(L) 6.5 - 8.5 g/dL [facility] Albumin 2.6(L) 3.5 - 5.0 g/dL [facility] Alk phos 59 40 - 130 Units/L [facility] ALT 14 7 - 45 Units/L [facility] AST 20 10 - 45 Units/L [facility] Blood 02/22/2025 2:05 AM CDT 02/22/2025 2:58 AM CDT us Milton Rubio MD LAB BLOOD ORDERABLES Final Resul t [facility] [place] [address] * ECG 12 lead (02/22/2025 1:45 AM CDT) [facility] Ventricular Rate EKG/Min 137 BPM [facility] QRS-Interval (MSEC) 94 ms [facility] QT-Interval (MSEC) 316 ms [facility] QTc 477 ms [facility] R [place] -41 degrees [facility] T [place] 137 degrees [facility] Diagnosis Age and gender specific ECG analysis Sinus tachycardia Anteroseptal ST-elevation Poor R-wave progression in the precordial leads Left axis deviation Minimal voltage criteria for LVH, may be normal variant ( Braymer product ) Anteroseptal infarct , possibly acute T wave abnormality, consider lateral ischemia Abnormal ECG No previous ECGs available Confirmed by HARJINDER HANDY M.D ([id number]) on 02/23/2025 3:10:53 PM [facility] 02/22/2025 1:45 AM CDT 02/23/2025 3:10 PM CDT us Jaimie Giordano MD ECG ORDERABLES Victoria l Result [facility] * (ABNORMAL) eGFR (02/21/2025 8:31 PM CDT) eGFR 3(L) >=60 mL/min/1. 73 [...] Giordano MD LAB BLOOD ORDERABLES Final Result [facility] Department [place] [address] * Critical Result Callback Chemistry (02/21/2025 8:31 PM CDT) Date Notified [id number] Time Notified 2153 [facility] TestName Calcium [facility] Called/Read Back Jose DOMINGUEZ Credentials RN [facility] DOMINGUEZ Called By PD [facility] Blood 02/21/2025 8:31 PM CDT 02/21/2025 9:23 PM CDT us Jaimie Giordano MD LAB BLOOD ORDERABLES Final Result [facility] [place] [place] [address] * Critical Result Callback Chemistry (02/21/2025 8:31 PM CDT) Date Notified [id number] Time Notified 2128 [facility] TestName Ca Ionized [facility] Called/Read Back Parminder BARNES [facility] Credentials RN [facility] DOMINGUEZ Called By PD [facility] DOMINGUEZ Blood 02/21/2025 8:31 PM CDT 02/21/2025 9:00 PM CDT us Ellie Saenz MD LAB BLOOD ORDERABLES Fin al Result Performing Organization Address City/[facility] Co de Phone Number [facility] [place] [place] [address] * (ABNORMAL) Calcium, ionized (02/21/2025 8:31 PM CDT) Calcium, Ionized 3.17(C) 4.50 - 5.10 mg/dL Blood 02/21/2025 8:31 PM CDT 02/21/2025 9:00 PM CDT us Ellie Saenz MD LAB BLOOD ORDERABLES Fin al Result Performing Organization Address City/[facility]/ZIP Co de Phone Number [facility] [place] [address] * (ABNORMAL) aPTT (02/21/2025 8:31 PM CDT) aPTT 52(H) 28 - 38 sec Comment: Interpretive Data Heparin therapeutic range: 66.0 - 100.0 seconds. Range based on correlation with therapeutic heparin activity range of 0.3 - 0.7 Units/mL. Current interpretive data was last revised on 2023. Blood 02/21/2025 8:31 PM CDT 02/21/2025 9:05 PM CDT Narrative [facility] - 02/21/2025 9:15 PM CDT STAT [...] ORDERABL ES Final Result Performing Organization Address City/[facility]/ZIP Co de Phone Number [facility] Department [place] [address] * (ABNORMAL) Phosphorus (02/21/2025 8:31 PM CDT) Pathologist [facility] Phosphorus, pl 8.4(H) 2.3 - 4.5 mg/dL Blood 02/21/2025 8:31 PM CDT 02/21/2025 9:00 PM CDT us Jaimie Giordano MD LAB BLOOD ORDERABLES Final Result [facility] Department [place] [address] * Magnesium (02/21/2025 8:31 PM CDT) Pathologist [facility] Magnesium 2.4 1.4 - 2.5 mg/dL Blood 02/21/2025 8:31 PM CDT 02/21/2025 9:00 PM CDT Jaimie Giordano MD LAB BLOOD ORDERABLES Final Result [facility] Department [place] [address] * (ABNORMAL) Basic metabolic panel (02/21/2025 8:31 PM CDT) [facility] Sodium 139 135 - 145 mmol/L Potassium, pl 4.6 3.3 - 4.9 mmol/L [facility] Chloride 94(L) 97 - 110 mmol/L [facility] CO2 27 22 - 32 mmol/L [facility] Anion gap 18(H) 2 - 15 mmol/L [facility] BUN 53(H) 6 - 25 mg/dL [facility] Creatinine 12.82(H) 0.60 - 1.10 mg/dL [facility] Glucose 82 70 - 199 mg/dL [facility] Comment: Interpretive Data Fasting glucose [...] 2022. Calcium 6.4(C) 8.5 - 10.3 mg/dL [facility] Blood 02/21/2025 8:31 PM CDT 02/21/2025 9:00 PM CDT us Jaimie Giordano MD LAB BLOOD ORDERABLES Final Result Performing Organization Address [facility] Co de Phone Number [facility] [place] [address] * (ABNORMAL) aPTT (02/21/2025 11:39 AM CDT) aPTT 80(H) 28 - 38 sec Comment: Interpretive Data Heparin therapeutic range: 66.0 - 100.0 seconds. Range based on correlation with therapeutic heparin activity range of 0.3 - 0.7 Units/mL. Current interpretive data was last revised on 2023. Blood 02/21/2025 11:3 9 AM CDT 02/21/2025 12:32 PM CDT Milton Rubio MD LAB BLOOD ORDERABLES Final Resul t Performing Organization Address [facility] [place] [address] * (ABNORMAL) Troponin I high-sensitivity (02/21/2025 8:42 AM CDT) Trop I hs 2,752(C) <=17 ng/L Comment: Previous critical value noted within 48 hours ago. Interpretive Data For further hscTnI resources including the diagnostic algorithm and an aid in interpretation, copy and paste this link: [email or web address]/show/[email or web address] Current Interpretive Data last revised 2020. Blood 02/21/2025 8:42 AM CDT 02/21/2025 9:24 AM CDT us Ellie Saenz MD LAB BLOOD ORDERABLES Fin al Result Performing Organization Address [facility] Co de Phone Number [facility] [place] [address] * Thyroid Function Ness (02/21/2025 8:42 AM CDT) Pathologist [facility] TSH 1.88 0.30 - 4.20 mcIUnit/mL Blood 02/21/2025 8:42 AM CDT 02/21/2025 9:24 AM CDT Ellie Saenz MD LAB BLOOD ORDERABLES Fin al Result Performing Organization Address City/[facility] Co de Phone Number [facility] Department [place] [address] * (ABNORMAL) Troponin I high-sensitivity 6-hour (02/21/2025 4:51 AM CDT) [facility] Trop I hs 3,175(C) <=17 ng/L Comment: Previous critical value noted within 48 hours ago. Interpretive Data For further hscTnI resources including the diagnostic algorithm and an aid in interpretation, copy and paste this link: [email or web address]/show/[email or web address] Current Interpretive Data last revised 2020. Trop I hs pct delta -25(C) % [facility] Comment:Previous critical va lue noted within 48 hours ago. Trop I hs interp Significa nt(C) [facility] Comment:Previous critical va lue noted within 48 hours ago. Blood 02/21/2025 4:51 AM CDT 02/21/2025 5:32 AM CDT us Jaimie Giordano MD LAB BLOOD ORDERABLES Final Result Performing Organization Address City/[facility] Co de Phone [facility] [place] [address] * (ABNORMAL) aPTT (02/21/2025 4:51 AM CDT) Pathologist [facility] aPTT 82(H) 28 - 38 sec Comment: Interpretive Data Heparin therapeutic range: 66.0 - 100.0 seconds. Range based on correlation with therapeutic heparin activity range of 0.3 - 0.7 Units/mL. Current interpretive data was last revised on 2023. Blood 02/21/2025 4:51 AM CDT 02/21/2025 5:31 AM CDT Milton Rubio MD LAB BLOOD ORDERABLES Final Resul t Performing Organization Address City/[facility] Co de Phone Number [facility] of [employer] [place], [place] [address] * (ABNORMAL) Troponin I high-sensitivity 4-hour (02/21/2025 2:18 AM CDT) Trop I hs 2,937(C) <=17 ng/L Comment: Previous critical value noted within 48 hours ago. Interpretive Data For further hscTnI resources including the diagnostic algorithm and an aid in interpretation, copy and paste this link: https://bjhlab.testcatalog.org/show/hsTrop-1 Current Interpretive Data last revised 2020. Trop I hs pct delta -31(C) % [facility] Comment:Previous critical va lue noted within 48 hours ago. Trop I hs interp Significa nt(C) [facility] Comment:Previous critical va lue noted within 48 hours ago. Blood 02/21/2025 2:18 AM CDT 02/21/2025 2:49 AM CDT us Jaimie Giordano MD LAB BLOOD ORDERABLES Final Result Performing Organization Address [facility] Co de Phone Number [facility] [place] [employer] [place] [address] * (ABNORMAL) Troponin I high-sensitivity 2-hour (02/20/2025 11:27 PM CDT) Trop I hs 3,312(C) <=17 ng/L Comment: Previous critical value noted within 48 hours ago. Interpretive Data For further hscTnI resources including the diagnostic algorithm and an aid in interpretation, copy and paste this link: https://bjhlab.testcatRFID Global Solution.org/show/hsTrop-1 Current Interpretive Data last revised 2020. Trop I hs delta See Comment ng/L [facility] Comment:Inappropriate collec tion time to report a delta. Trop I hs pct delta See Comment % [facility] Comment:Inappropriate collec tion time to report a delta. Trop I hs interp See Comment [facility] Comment:Inappropriate collec tion time to report a delta. Blood 02/20/2025 11:2 7 PM CDT 02/21/2025 12:31 AM CDT us Jaimie Giordano MD LAB BLOOD ORDERABLES Final Result Performing Organization Address [facility] Co de Phone Number [facility] [place] [employer] [place] [address] * (ABNORMAL) Troponin I high-sensitivity series (baseline, 2hr, 4hr, 6hr) (02/20/2025 10:03 PM CDT) Trop I hs 4,242(C) <=17 ng/L Comment: Interpretive Data For further hscTnI resources including the diagnostic algorithm and an aid in interpretation, copy and paste this link: https://Vivarteshlab.testcatRFID Global Solution.org/show/hsTrop-1 Current Interpretive Data last revised 2020. Blood 02/20/2025 10:0 3 PM CDT 02/20/2025 10:50 PM CDT us Jaimie Giordano MD LAB BLOOD ORDERABLES Final Result Performing Organization Address [facility] Co de Phone Number [facility] [place] [address] * Lactate (02/20/2025 10:03 PM CDT) Lactate 1.3 0.7 - 2.0 mmol/L Blood 02/20/2025 10:0 3 PM CDT 02/20/2025 10:50 PM CDT us Milton Rubio MD LAB BLOOD ORDERABLES Final Resul t [facility] [place] [address] * Critical result callback Cardio chemistry (02/20/2025 10:03 PM CDT) Date Notified [id number] Time Notified 2332 [facility] Test name Trop I hs base [facility] DOMINGUEZ Called/Read Back Srinath BARNES [facility] Credentials RN [facility] Called By NELSON DOMINGUEZ Blood 02/20/2025 10:0 3 PM CDT 02/20/2025 10:50 PM CDT us Jaimie Giordano MD LAB BLOOD ORDERABLES Final Result Performing Organization Address City/[facility]/ZIP Co de Phone Number [facility] [place] [address] * (ABNORMAL) eGFR (02/20/2025 10:03 PM CDT) [...] BLOOD ORDERABLES Final Result Performing Organization Address [facility] de Phone Number [facility] [place] [address] * (ABNORMAL) aPTT (02/20/2025 10:03 PM CDT) aPTT 45(H) 28 - 38 sec Comment: Interpretive Data Heparin therapeutic range: 66.0 - 100.0 seconds. Range based on correlation with therapeutic heparin activity range of 0.3 - 0.7 Units/mL. Current interpretive data was last revised on 2023. Blood 02/20/2025 10:0 3 PM CDT 02/20/2025 10:54 PM CDT Narrative [facility] - 02/20/2025 11:03 PM CDT Baseline prior to heparin initiation Jaimie Giordano MD LAB BLOOD ORDERABLES Final Result Performing Organization Address [facility] de Phone Number [facility] [place] [address] * Protime-INR (02/20/2025 10:03 PM CDT) PT 11.7 9.7 - 13.0 sec INR 1.08 0.90 - 1.20 [facility] Comment: Interpretive data Oral anticoagulant therapeutic ranges: Venous thromboembolism prophylaxis or treatment: 2.0-3.0 CARDIOLOGY Standard range: 2.0-3.0 High-intensity range: 2.5-3.5 Refer to indication-specific guidelines for appropriate target ranges for prosthetic heart valve replacement. Current interpretive data was last revised on 2019. Blood 02/20/2025 10:0 3 PM CDT 02/20/2025 10:54 PM CDT Narrative [facility] - 02/20/2025 11:03 PM CDT Baseline prior to heparin initiation us Jaimie Giordano MD LAB BLOOD ORDERABLES Final Result [facility] Department [place] [address] * (ABNORMAL) CBC without differential (02/20/2025 10:03 PM CDT) WBC 5.88 3.80 - 9.90 K/cumm Hgb 13.0 11.9 - 15.5 g/dL [facility] Hct 41.0 35.6 - 45.5 % [facility] Plt 178 150 - 400 K/cumm [facility] MPV 10.6 9.1 - 12.3 fL [facility] RBC 4.60 3.90 - 5.20 M/cumm [facility] MCV 89.1 81.3 - 96.4 fL [facility] MCH 28.3 27.1 - 33.3 pg [facility] MCHC 31.7(L) 32.3 - 35.7 g/dL [facility] RDW CV 15.3(H) 11.1 - 14.9 % [facility] RDW SD 49.6(H) 35.7 - 48.1 fL [facility] NRBC abs 0.00 0.00 - 0.01 K/cumm [facility] Blood 02/20/2025 10:0 3 PM CDT 02/20/2025 10:50 PM CDT Narrative [facility] - 02/20/2025 11:02 PM CDT Baseline prior to heparin initiation Jaimie Giordano MD LAB BLOOD ORDERABLES Final Result [facility] [place] [address] * (ABNORMAL) Phosphorus (02/20/2025 10:03 PM CDT) Phosphorus, pl 9.2(H) 2.3 - 4.5 mg/dL Blood 02/20/2025 10:0 3 PM CDT 02/20/2025 10:50 PM CDT us Jaimie Giordano MD LAB BLOOD ORDERABLES Final Result [facility] [place] [address] * (ABNORMAL) Magnesium (02/20/2025 10:03 PM CDT) Magnesium 2.8(H) 1.4 - 2.5 mg/dL Blood 02/20/2025 10:0 3 PM CDT 02/20/2025 10:50 PM CDT us Jaimie Giordano MD LAB BLOOD ORDERABLES Final Result [facility] Department [place] [address] * (ABNORMAL) Lipid panel (02/20/2025 10:03 PM [...] revised on 2018. Triglycerides 166(H) <=149 mg/dL [facility] Comment: Interpretive Data Ages < [...] revised on 2018. HDL 34(L) >=40 mg/dL [facility] Comment: Interpretive Data Ages < [...] on 2018. LDL, calculated 133(H) <=129 mg/dL [facility] Comment: Interpretive Data Ages < [...] revised on 2024. Non-HDL Cholesterol 163 mg/dL [facility] Comment: Interpretive Data Ages < [...] last revised on 2018. Chol/HDL ratio 6 [facility] Blood 02/20/2025 10:0 3 PM CDT 02/20/2025 10:50 PM CDT Jaimie Giordano MD LAB BLOOD ORDERABLES Final Result [facility] Department [place] [address] * (ABNORMAL) Comprehensive metabolic panel (02/20/2025 10:03 PM CDT) Sodium 138 135 - 145 mmol/L Potassium, pl 4.6 3.3 - 4.9 mmol/L [facility] Chloride 92(L) 97 - 110 mmol/L [facility] CO2 23 22 - 32 mmol/L [facility] Anion gap 23(H) 2 - 15 mmol/L [facility] BUN 55(H) 6 - 25 mg/dL [facility] Creatinine 13.60(H) 0.60 - 1.10 mg/dL [facility] Glucose 101 70 - 199 mg/dL [facility] Comment: Interpretive Data Fasting glucose [...] 2022. Calcium 6.9(L) 8.5 - 10.3 mg/dL [facility] Bilirubin, total 0.2 0.1 - 1.2 mg/dL [facility] Protein, pl 7.1 6.5 - 8.5 g/dL [facility] Albumin 3.2(L) 3.5 - 5.0 g/dL [facility] Alk phos 74 40 - 130 Units/L [facility] ALT 16 7 - 45 Units/L [facility] AST 30 10 - 45 Units/L [facility] Blood 02/20/2025 10:0 3 PM CDT 02/20/2025 10:50 PM CDT Jaimie Giordano MD LAB BLOOD ORDERABLES Final Result [facility] Department [place] [address] * ECG 12 lead (02/20/2025 9:19 PM CDT) Ventricular Rate EKG/Min 72 BPM [facility] Atrial Rate 72 BPM [facility] NE-Interval (MSEC) 120 ms [facility] QRS-Interval (MSEC) 96 ms [facility] QT-Interval (MSEC) 440 ms [facility] QTc 481 ms [facility] P [place] 92 degrees [facility] R [place] -31 degrees [facility] T [place] 140 degrees [facility] Diagnosis Sinus rhythm with Premature atrial complexes Left axis deviation Incomplete right bundle branch block Minimal voltage criteria for LVH, may be normal variant ( Braymer product ) Anteroseptal infarct , age undetermined T wave abnormality, consider lateral ischemia Abnormal ECG atrial-paced complexes When compared with ECG of 20-FEB-2025 15:12, (unconfirmed) Premature atrial complexes are now Present Anteroseptal infarct is now Present Confirmed by HARJINDER HANDY M.D ([id number]) on 02/23/2025 12:46:43 PM [facility] 02/20/2025 9:19 PM CDT 02/23/2025 12:46 PM CDT Jaimie Giordano MD ECG ORDERABLES Victoria l Result [facility] [employer] [facility] * (ABNORMAL) Troponin T high-sensitivity 6-hour (02/20/2025 5:36 PM CDT) Trop T hs 911(C) <=14 ng/L Comment: Critical Result called to and read back by Parminder limon, DATE: 2025-02-20 18:15:52 BY: [email or web address] Interpretive Data For further hscTnT resources including the diagnostic algorithm and an aid in interpretation, copy and paste this link: https://nrl.testcatalog.org/show/hsTrop Current Interpretive Data last revised 2020. Trop T hs interp Significa nt(C) [facility] Comment:Critical Result call ed to and read back by Parminder limon, DATE: 2025-02-20 18:15:52 BY: [email or web address] Blood 02/20/2025 5:36 PM CDT 02/20/2025 5:45 PM CDT us Khanh Shankar DO LAB BLOOD ORDERABLES Final Result [facility] [address] [facility] [place] [address] * (ABNORMAL) eGFR (02/20/2025 5:36 PM CDT) [...] DO LAB BLOOD ORDERABLES Final Result [facility] [address] [facility] Department of [place], [place] [id number] * Heparin anti factor Xa activity (02/20/2025 [...] PM CDT 02/20/2025 5:45 PM CDT Narrative [facility] - 02/20/2025 6:39 PM CDT Baseline prior to heparin initiation Khanh Shankar DO LAB BLOOD ORDERABLES Final Result Performing Organization Address [facility] Co de Phone Number [place] [phone] [place] [address] * Hepatitis B surface antibody (immune status) Blood (02/20/2025 5:36 PM CDT) HBsAb (immune status) Nonreactive Comment: Interpretive Data [...] GENERAL ORDERABLES Final Result Performing Organization Address [facility] Co de Phone Number [place] [phone] [place] [address] * Hepatitis B Surface Antigen Blood (02/20/2025 5:36 PM CDT) HepBsAg Nonreactive Nonreactive Blood 02/20/2025 5:36 PM CDT 02/20/2025 5:45 PM CDT Girish Maya MD LAB MICROBIOLOGY - GENERAL ORDERABLES Final Result Performing Organization Address [facility]/ZIP Co de Phone Number [place] [address] [facility] [place] [address] * (ABNORMAL) Protime-INR (02/20/2025 5:36 PM CDT) [facility] PT 15.2(H) 12.0 - 14.6 sec Comment:Ref Range High INR 1.2 0.9 - 1.2 [facility] Comment: Ref Range High Interpretive data Oral anticoagulant therapeutic ranges: Venous thromboembolism prophylaxis or treatment: 2.0-3.0 CARDIOLOGY Standard range: 2.0-3.0 High-intensity range: 2.5-3.5 Refer to indication-specific guidelines for appropriate target ranges for prosthetic heart valve replacement. Current interpretive data was last revised on 2019. Blood 02/20/2025 5:36 PM CDT 02/20/2025 5:45 PM CDT Khanh Shankar LAB BLOOD ORDERABLES Final Result Performing Organization Address City/State/[facility] Co de Phone Number [place] [phone] [facility] [place] [address] * (ABNORMAL) CBC without differential (02/20/2025 5:36 PM CDT) [facility] WBC 5.51 3.80 - 9.90 K/cumm Hgb 12.1 11.9 - 15.5 g/dL [facility] Hct 38.4 35.6 - 45.5 % [facility] Plt 153 150 - 400 K/cumm [facility] MPV 10.5 9.1 - 12.3 fL [facility] RBC 4.30 3.90 - 5.20 M/cumm [facility] MCV 89.3 81.3 - 96.4 fL [facility] MCH 28.1 27.1 - 33.3 pg [facility] MCHC 31.5(L) 32.3 - 35.7 g/dL [facility] RDW CV 15.1(H) 11.1 - 14.9 % [facility] RDW SD 49.1(H) 35.7 - 48.1 fL [facility] NRBC abs 0.00 0.00 - 0.01 K/cumm [facility] Blood 02/20/2025 5:36 PM CDT 02/20/2025 5:45 PM CDT Narrative [facility] - 02/20/2025 5:48 PM CDT Baseline prior to heparin initiation [facility] BLOOD ORDERABLES Final Result Performing Organization Address [facility]/ZIP Co de Phone Number [facility] [address] [facility] [place] [address] * (ABNORMAL) Basic metabolic panel (02/20/2025 5:36 PM CDT) [facility] Sodium 136 135 - 145 mmol/L Potassium, pl 5.8(H) 3.3 - 4.9 mmol/L [facility] Comment:Delta - Results Revi ewed Chloride 94(L) 97 - 110 mmol/L [facility] CO2 23 22 - 32 mmol/L [facility] Anion gap 19(H) 2 - 15 mmol/L [facility] BUN 55(H) 6 - 25 mg/dL [facility] Creatinine 13.90(H) 0.60 - 1.10 mg/dL [facility] Glucose 87 70 - 199 mg/dL [facility] Comment: Interpretive Data Fasting glucose [...] 2022. Calcium 6.7(L) 8.5 - 10.3 mg/dL [facility] Blood 02/20/2025 5:36 PM CDT 02/20/2025 5:45 PM CDT Khanh Shankar LAB BLOOD ORDERABLES Final Result [facility] [address] [facility] [place] [address] * ECG 12 lead (02/20/2025 3:12 PM CDT) Ventricular Rate EKG/Min 72 BPM [facility] Atrial Rate 72 BPM [facility] NE-Interval (MSEC) 106 ms [facility] QRS-Interval (MSEC) 92 ms [facility] QT-Interval (MSEC) 450 ms [facility] QTc 492 ms [facility] P [place] 79 degrees [facility] R [place] -40 degrees [facility] T [place] 133 degrees [facility] Diagnosis Sinus rhythm with sinus arrhythmia with short NE Left axis deviation T wave abnormality, consider lateral ischemia Prolonged QT Abnormal ECG When compared with ECG of 20-FEB-2025 15:07, Sinus rhythm has replaced Atrial fibrillation Confirmed by MD MCKEON SAMIR ([id number]) on 02/21/2025 5:43:47 PM [facility] 02/20/2025 3:12 PM CDT 02/21/2025 5:43 PM CDT Khanh Shankar DO ECG ORDERABLES Final Resul t [facility] * ECG 12 lead (02/20/2025 3:07 PM CDT) Ventricular Rate EKG/Min 68 BPM [facility] Atrial Rate 67 BPM [facility] QRS-Interval (MSEC) 84 ms [facility] QT-Interval (MSEC) 454 ms [facility] QTc 482 ms [facility] R [place] -39 degrees [facility] T [place] 119 degrees [facility] Diagnosis Suspect unspecified pacemaker failure Atrial fibrillation Left axis deviation Anterior infarct (cited on 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-MAY-2024) T wave abnormality, consider lateral ischemia Abnormal ECG When compared with ECG of 20-FEB-2025 10:47, Atrial fibrillation has replaced Sinus rhythm Confirmed by MD MCKEON SAMIR ([id number]) on 02/21/2025 5:43:35 PM [facility] 02/20/2025 3:07 PM CDT 02/21/2025 5:43 PM CDT Khanh Cm Shankar DO ECG ORDERABLES Final Resul t [facility] * (ABNORMAL) Troponin T high-sensitivity 4-hour (02/20/2025 2:55 PM CDT) Trop T hs 834(C) <=14 ng/L Comment: Critical Result called to and read back by Niko [email or web address], DATE: 2025-02-20 15:27:21 BY: [email or web address] Interpretive Data For further hscTnT resources including the diagnostic algorithm and an aid in interpretation, copy and paste this link: https://nrl.testcatalog.org/show/hsTrop Current Interpretive Data last revised 2020. Trop T hs pct delta 36(C) % [facility] Comment:Critical Result call ed to and read back by Niko [email or web address], DATE: 2025-02-20 15:27:21 BY: [email or web address] Trop T hs interp Significa nt(C) [facility] Comment:Critical Result call ed to and read back by Niko [email or web address], DATE: 2025-02-20 15:27:21 BY: [email or web address] Blood 02/20/2025 2:55 PM CDT 02/20/2025 2:57 PM CDT Khanh Shankar DO LAB BLOOD ORDERABLES Final Result [facility] [address] [facility] [place] [address] * Blood culture Blood (02/20/2025 2:33 PM CDT) Report Final Report: No growth Comment:Testing performed by : [facility], [address] [facility], [place]., [address] Blood 02/20/2025 2:33 PM CDT 02/20/2025 6:26 PM CDT Narrative [facility] - 02/25/2025 7:00 AM CDT From a [...] performance characteristics have been verified by the [facility] Microbiology Laboratory. For questions about this culture, contact the Microbiology Laboratory at [phone]. Interpretive data was last revised on 24. Khanh Shankar DO LAB MICROBIOLOGY - GENERAL ORDERABLES Final Result [facility] [address] [facility] [place] [address] * Blood culture Blood (02/20/2025 2:23 PM CDT) Report Final Report: No growth Comment:Testing performed by : [facility], [address] [facility], [place]., [address] Blood 02/20/2025 2:23 PM CDT 02/20/2025 6:26 [...] performance characteristics have been verified by the [facility] Microbiology [facility]. For questions about this culture, contact the Microbiology Laboratory at [phone]. Interpretive data was last revised on 24. Khanh Shankar DO LAB MICROBIOLOGY - GENERAL ORDERABLES Final Result [facility] [address] [facility] [place] [address] * (ABNORMAL) Troponin T high-sensitivity 2-hour (02/20/2025 2:02 PM CDT) Trop T hs 785(C) <=14 ng/L Comment: Critical Result called to and read back by Cecilia [email or web address], DATE: 2025-02-20 14:27:31 BY: [email or web address] Interpretive Data For further hscTnT resources including [...] 2:02 PM CDT 02/20/2025 2:03 PM CDT us Khanh Shankar DO LAB BLOOD ORDERABLES Final Result [facility] [address] [facility] [place] [address] * CT Chest WO Contrast (02/20/2025 1:06 [...] by Rc Cody M.D. T: Report ID: [id number] Reading Location: [place] [address] Procedure Note Rc Cody, DO - 02/20/2025 [...] by Rc Cody M.D. T: Report ID: [id number] Reading Location: [place] [address] Khanh Zavalahu DO IM CT PROCEDURES Final Res ult * XR [...] by Rc Cody M.D. T: Report ID: [id number] Reading Location: [id number] Procedure Note Rc Cody, DO - 02/20/2025 EXAM DESCRIPTION: XR CHEST [...] by Rc Cody M.D. T: Report ID: [id number] Reading Location: [place] [address] Khanh Cm Shankar DO IMG XR PROCEDURES Final Res ult * (ABNORMAL) Troponin T high-sensitivity series (baseline, 2hr, 4hr, 6hr) (02/20/2025 10:52 AM CDT) Pathologist [facility] Trop T hs 611(C) <=14 ng/L Comment: Critical Result called to and read back by [email or web address], DATE: 2025-02-20 11:39:27 BY: [id number] Interpretive Data For further hscTnT resources including the diagnostic algorithm and an aid in interpretation, copy and paste this link: https://nrl.testcatalog.org/show/hsTrop Current Interpretive Data last revised 2020. Blood 02/20/2025 10:5 2 AM CDT 02/20/2025 10:56 AM CDT [facility] LAB BLOOD ORDERABLES Final Result Performing Organization Address [facility] Co de Phone Number [address] [place] [address] * Sepsis Lactate w/ Reflex (02/20/2025 10:52 AM CDT) [facility] Sepsis Lactate 1.8 0.7 - 2.0 mmol/L Blood 02/20/2025 10:5 2 AM CDT 02/20/2025 10:57 AM CDT [facility] LAB BLOOD ORDERABLES Final Result Performing Organization Address [facility] Co de Phone Number [address] [place] [address] * (ABNORMAL) eGFR (02/20/2025 10:52 AM CDT) [facility] eGFR 3(L) >=60 mL/min/1. 73 m2 Comment: [...] DO LAB BLOOD ORDERABLES Final Result [facility] [address] [facility] [place] [address] * (ABNORMAL) Differential, auto (02/20/2025 10:52 AM CDT) [facility] Neutrophil abs 4.13 1.50 - 6.50 K/cumm Imm gran abs 0.02 0.00 - 0.10 K/cumm [facility] Lymphocyte abs 0.61(L) 0.80 - 3.30 K/cumm [facility] Monocyte abs 0.28 0.20 - 0.80 K/cumm [facility] Eosinophil abs 0.15 0.00 - 0.50 K/cumm [facility] Basophil abs 0.02 0.00 - 0.10 K/cumm [facility] Neutrophil pct 79.2 % [facility] Comment: Interpretive Data Percent cell count reference ranges are not reported, since discordance with absolute values may lead to misinterpretation of CBC data. Current Interpretive Data was last revised on 2018. Imm gran pct 0.4 % [facility] Comment: Interpretive Data Percent cell count reference ranges are not reported, since discordance with absolute values may lead to misinterpretation of CBC data. Current Interpretive Data was last revised on 2018. Lymphocyte pct 11.7 % [facility] Comment: Interpretive Data Percent cell count reference ranges are not reported, since discordance with absolute values may lead to misinterpretation of CBC data. Current Interpretive Data was last revised on 2018. Monocyte pct 5.4 % [facility] Comment: Interpretive Data Percent cell count reference ranges are not reported, since discordance with absolute values may lead to misinterpretation of CBC data. Current Interpretive Data was last revised on 2018. Eosinophil pct 2.9 % [facility] Comment: Interpretive Data Percent cell count reference ranges are not reported, since discordance with absolute values may lead to misinterpretation of CBC data. Current Interpretive Data was last revised on 2018. Basophil pct 0.4 % [facility] Comment: Interpretive Data Percent cell count reference ranges are not reported, since discordance with absolute values may lead to misinterpretation of CBC data. Current Interpretive Data was last revised on 2018. Blood 02/20/2025 10:5 2 AM CDT 02/20/2025 10:56 AM CDT Khanh Shankar DO LAB BLOOD ORDERABLES Final Result [facility] [address] [facility] [place] [address] * (ABNORMAL) CBC with auto differential (02/20/2025 10:52 AM CDT) WBC 5.21 3.80 - 9.90 K/cumm Hgb 13.2 11.9 - 15.5 g/dL [facility] Hct 42.8 35.6 - 45.5 % [facility] Plt 158 150 - 400 K/cumm [facility] MPV 10.8 9.1 - 12.3 fL [facility] RBC 4.75 3.90 - 5.20 M/cumm [facility] MCV 90.1 81.3 - 96.4 fL [facility] MCH 27.8 27.1 - 33.3 pg [facility] MCHC 30.8(L) 32.3 - 35.7 g/dL [facility] RDW CV 15.2(H) 11.1 - 14.9 % [facility] RDW SD 49.4(H) 35.7 - 48.1 fL [facility] NRBC abs 0.00 0.00 - 0.01 K/cumm [facility] Blood 02/20/2025 10:5 2 AM CDT 02/20/2025 10:56 AM CDT Khanh Shankar DO LAB BLOOD ORDERABLES Final Result [facility] [address] [facility] [facility] [place] [address] * (ABNORMAL) Comprehensive metabolic panel (02/20/2025 10:52 AM CDT) Sodium 137 135 - 145 mmol/L Potassium, pl 4.4 3.3 - 4.9 mmol/L [facility] Chloride 92(L) 97 - 110 mmol/L [facility] CO2 24 22 - 32 mmol/L [facility] Anion gap 21(H) 2 - 15 mmol/L [facility] BUN 48(H) 6 - 25 mg/dL [facility] Creatinine 13.30(H) 0.60 - 1.10 mg/dL [facility] Glucose 72 70 - 199 mg/dL [facility] Comment: Interpretive Data Fasting glucose [...] 2022. Calcium 7.2(L) 8.5 - 10.3 mg/dL [facility] Bilirubin, total 0.3 0.1 - 1.2 mg/dL [facility] Protein, pl 6.6 6.5 - 8.5 g/dL [facility] Albumin 3.1(L) 3.5 - 5.0 g/dL [facility] Alk phos 66 40 - 130 Units/L [facility] ALT 14 7 - 45 Units/L [facility] AST 20 10 - 45 Units/L [facility] Blood 02/20/2025 10:5 2 AM CDT 02/20/2025 10:56 AM CDT Khanh Shankar DO LAB BLOOD ORDERABLES Final Result Performing Organization Address City/[facility]/ZIP Co de Phone Number [facility] [address] [facility] [place] [address] * ECG 12 lead (02/20/2025 10:47 AM CDT) Pathologist [facility] [place] Ventricular Rate EKG/Min 78 BPM [facility] Atrial Rate 78 BPM [facility] NE-Interval (MSEC) 112 ms [facility] QRS-Interval (MSEC) 92 ms [facility] QT-Interval (MSEC) 424 ms [facility] QTc 483 ms [facility] P [place] 86 degrees [facility] R [place] -33 degrees [facility] T [place] 139 degrees [facility] Diagnosis Sinus rhythm with Premature supraventricular complexes Left axis deviation Septal infarct (cited on 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-MAY-2024) T wave abnormality, consider lateral ischemia Abnormal ECG When compared with ECG of 28-JAN-2025 10:10, Sinus rhythm has replaced Electronic atrial pacemaker Confirmed by SULTAN NDIAYE M.D. ([id number]) on 02/22/2025 4:12:38 PM [facility] 02/20/2025 10:4 7 AM CDT 02/22/2025 4:12 PM CDT us Khanh Shankar DO ECG ORDERABLES Final Resul t Performing Organization Address City/[facility]/ZIP Co de Phone Number [facility] * XR Orthopantogram Panorex (01/28/2025 [...] AM CDT) [facility] Ventricular Rate EKG/Min 79 BPM [facility] Atrial Rate 79 BPM [facility] NE-Interval (MSEC) 164 ms [facility] QRS-Interval (MSEC) 88 ms [facility] QT-Interval (MSEC) 396 ms [facility] QTc 454 ms [facility] P [place] 112 degrees [facility] R [place] -24 degrees [facility] T [place] 129 degrees [facility] Diagnosis Atrial-paced rhythm in a pattern of bigeminy Anteroseptal infarct (cited on 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-MAY-2024) ST & T wave abnormality, consider lateral ischemia Abnormal ECG When compared with ECG of 25-DEC-2024 06:56, Premature atrial complexes are no longer Present Confirmed by HARJINDER HANDY M.D ([id number]) on 01/29/2025 11:51:51 AM [facility] 01/28/2025 10:1 0 AM CDT 01/29/2025 11:51 AM CDT us Tamar Tang MD ECG ORDERABLES Final Result [facility] * Mislabeled Test (01/28/2025 9:47 AM CDT) Location Other location Reason No Signature On Blood Bank Specimen [facility] Mislabel resolution Testing canceled [facility] Blood 01/28/2025 9:47 AM CDT 01/28/2025 11:45 AM CDT Abigail Vides MD LAB BLOOD ORDERABLES Final Result Performing Organization Address City/[facility]/ZIP Co de Phone Number [facility] Department [place] [address] * (ABNORMAL) eGFR (01/28/2025 9:42 AM CDT) [...] Inclusion of Race in Diagnosing Kidney Disease, LACEYSWillis 2020). The CKD-EPI equation should not be used for patients with unstable renal function and has not been validated in children and those over 70. Current interpretive data was last reviewed 2021. Blood 01/28/2025 9:42 AM CDT 01/28/2025 11:07 AM CDT Tamar Tang MD LAB BLOOD ORDERABLES Final Res ult Performing Organization Address [facility] Co de Phone Number [facility] [place] [place] [address] * HIV 1/2 Antibody plus p24 Antigen [...] ORD ERABLES Final Result Performing Organization Address [facility] de Phone Number [facility] [place] [address] * Hepatitis C antibody Blood (01/28/2025 9:42 AM CDT) Hep C Ab Nonreactive Nonreactive Comment:Antibodies to HCV no t detected. Does NOT exclude the possibility of recent exposure to HCV. Current interpretive data was last revised on 22 Blood 01/28/2025 9:42 AM CDT 01/28/2025 10:56 AM CDT Tamar Tang MD LAB MICROBIOLOGY - GENERAL ORD ERABLES Final Result Performing Organization Address [facility] Co de Phone Number [facility] [place] [address] * Hepatitis B core antibody, total Blood (01/28/2025 9:42 AM CDT) Hep B core IgG/IgM Nonreactive Nonreactive Blood 01/28/2025 9:42 AM CDT 01/28/2025 10:56 AM CDT Tamar Tang MD LAB MICROBIOLOGY - GENERAL [place]D [place] [address] * Hepatitis B surface antibody (immune status) [...] MICROBIOLOGY - GENERAL ORD ERABLES Final Result [facility] [place] [address] * Hepatitis B Surface Antigen Blood (01/28/2025 9:42 AM CDT) HepBsAg Nonreactive Nonreactive Blood 01/28/2025 9:42 AM CDT 01/28/2025 10:56 AM CDT Tamar Tang MD LAB MICROBIOLOGY - GENERAL ORD ERABLES Final Result [facility] [place] [address] * (ABNORMAL) CBC without differential (01/28/2025 9:42 AM CDT) Pathologist [facility] [place] WBC 5.32 3.80 - 9.90 K/cumm Hgb 13.1 11.9 - 15.5 g/dL [facility] Hct 41.5 35.6 - 45.5 % [facility] Plt 156 150 - 400 K/cumm [facility] MPV 10.5 9.1 - 12.3 fL [facility] RBC 4.64 3.90 - 5.20 M/cumm [facility] MCV 89.4 81.3 - 96.4 fL [facility] MCH 28.2 27.1 - 33.3 pg [facility] MCHC 31.6(L) 32.3 - 35.7 g/dL [facility] RDW CV 16.1(H) 11.1 - 14.9 % [facility] RDW SD 51.8(H) 35.7 - 48.1 fL [facility] NRBC abs 0.00 0.00 - 0.01 K/cumm [facility] Blood 01/28/2025 9:42 AM CDT 01/28/2025 10:58 AM CDT Abigail Vides MD LAB BLOOD ORDERABLES Final Result Performing Organization Address City/[facility] Co de Phone Number [facility] [place] [address] * (ABNORMAL) Phosphorus (01/28/2025 9:42 AM CDT) Pathologist [facility] [place] Phosphorus, pl 7.4(H) 2.3 - 4.5 mg/dL Blood 01/28/2025 9:42 AM CDT 01/28/2025 10:56 AM CDT Tamar Tang MD LAB BLOOD ORDERABLES Final Res ult Performing Organization Address City/[facility]/ZIP Co de Phone Number [facility] Department [place] [address] * PTH (01/28/2025 9:42 AM CDT) Pathologist [facility] PTH 43 15 - 65 pg/mL Blood 01/28/2025 9:42 AM CDT 01/28/2025 10:56 AM CDT Tamar Tang MD LAB BLOOD ORDERABLES Final Res ult Performing Organization Address [facility] de Phone Number [facility] [place] [address] * (ABNORMAL) Hemoglobin A1c (01/28/2025 9:42 AM CDT) [facility] Hgb A1C 5.8(H) 4.0 - 5.6 % Estimated Average Glucose 120 mg/dL [facility] Comment: The ADA recommends reporting [...] ORDERABLES Final Res ult Performing Organization Address [facility] de Phone Number [facility] [place] [address] * (ABNORMAL) Comprehensive metabolic panel (01/28/2025 9:42 AM CDT) [facility] Sodium 137 135 - 145 mmol/L Potassium, pl 5.7(H) 3.3 - 4.9 mmol/L [facility] Chloride 95(L) 97 - 110 mmol/L [facility] CO2 27 22 - 32 mmol/L [facility] Anion gap 15 2 - 15 mmol/L [facility] BUN 61(H) 6 - 25 mg/dL [facility] Creatinine 14.50(H) 0.60 - 1.10 mg/dL [facility] Glucose 77 70 - 199 mg/dL [facility] Comment: Interpretive Data Fasting glucose [...] 2022. Calcium 7.3(L) 8.5 - 10.3 mg/dL [facility] Bilirubin, total 0.3 0.1 - 1.2 mg/dL [facility] Protein, pl 6.8 6.5 - 8.5 g/dL [facility] Albumin 3.2(L) 3.5 - 5.0 g/dL [facility] Alk phos 64 40 - 130 Units/L [facility] ALT 20 7 - 45 Units/L [facility] AST 24 10 - 45 Units/L [facility] Blood 01/28/2025 9:42 AM CDT 01/28/2025 10:56 AM CDT us Tamar Tang MD LAB BLOOD ORDERABLES Final Res ult [facility] Department [place] [address] * HLA Antibody Screen - SAB (Class [...] a method developed and validated by the [facility] HLA laboratory based on an FDA-approved IVD kit ([employer] Single-Antigen, [employer], [place], [place]). All patient serum samples are pretreated with EDTA before the screen to prevent complement interference. Additional serum treatments, such as adsorption and DTT treatment, may be performed as indicated. Interpretive comments: Low risk: MFI [id number]. Moderate risk: MFI [id number]. Increased risk: MFI >/= 5000. The presence [...] antigens to avoid. Testing performed at the [facility], [address], [address]th [address], [facility], [place], [address]. [facility] # [id number]. Rosa Millan, Ph.D., Hide Trimmer, HLA Laboratory Wilmer Prescott M.D., Ph.D., Deputy Director, HLA Laboratory Alma Payton, Ph.D., CLIA Deputy Director, [facility] Current methodology and interpretive comments last revised on 11/15/2022. us Salina Hector MD LAB BLOOD ORDERABLES Final Resul t HISTOTRAC from Last 3 Months Insurance [facility] CHOICE PLUS MEDICARE [facility] CHOICE PLUS [facility] CHOICE PLUS MEDICARE [facility] CHOICE PLUS MEDICARE TRANSPLANT [facility] Advance Directives For more information, please contact: [phone] * Full Code (Latest Code Status on [...] 4:20 PM 05/25/2024 8:59 PM Care Teams Castings Trimmer Relationship Specialty Start Date End Date Pal Downey DO PCP - General Internal Medicine 01/25/21 Quinton Rowan MD Referring Physician Cardiology 01/09/19 Tami Flores, TONO [address] [address] Registered Nurse Care Tech 01/25/21 Cricket Escalante MD [address] [address] Referring Physician Nephrology 03/24/21 Gael Sprague MD PhD [address] [address] Fellow Endocrinology Diabetes & Metabolism 03/24/21 Brad Turner MD [address] [place] [address] Consulting Physician Obstetrics and Gynecology 03/24/21 Margarita Montoya MD [address] [id number] Consulting Physician Trauma Surgery 12/27/21 Luca Lott MD [address] [facility] [address] [place] [address] [id number] Consulting Physician Cardiology 08/03/22 Pb Galloway MD [address] [address] Cardiothoracic Surgery 05/25/24 Felipe Gerber MD [address] [address] Consulting Physician Cardiology 05/25/24
--- NOTE | 2025-04-22 12:18 | ED.ARRPALP ---
HPI - Arrhythmia/Palpitations General Chief Complaint: Arrhythmia/Palpitations Stated Complaint: afib? Time Seen by Provider: 04/22/25 12:08 Source: patient Mode of arrival: ambulatory Limitations: no limitations History of Present Illness HPI narrative: 54 years old white female came to the ED complaining of intermittent palpitation for the last 5 days. She denies any aggravating or relieving factors. 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 Patient denies any fever, chills, nausea, vomiting, diarrhea, constipation. PATIENT CURRENTLY ON PLAVIX AND ASPIRIN Related Data Home Medications ?Medication ?Instructions ?Recorded ?Confirmed ?Last Taken ?Type clopidogrel 75 mg tablet (Plavix) 75 mg PO DAILY 08/01/22 04/23/25 04/22/25 History gentamicin 0.1 % topical cream 1 applic topical DAILY 08/01/22 04/23/25 04/22/25 History loratadine 10 mg tablet (Claritin) 10 mg PO DAILY PRN Allergy Symptoms 08/01/22 04/23/25 04/22/25 History multivitamin 1 tablet PO DAILY 08/01/22 04/23/25 08/27/24 History nitroglycerin 0.4 mg sublingual 0.4 mg sublingual Q5M PRN Pain 08/01/22 04/23/25 Unknown History tablet gabapentin 100 mg capsule 100 mg PO WEEKLY 08/18/24 04/23/25 04/16/25 History ergocalciferol (vitamin D2) 25,000 See Rx Instructions .Route .COMPLEX 09/24/24 04/23/25 04/18/25 History unit capsule calcitriol 0.25 mcg capsule 0.25 mcg PO DAILY 03/02/25 04/23/25 04/21/25 History evolocumab 140 mg/mL subcutaneous 140 mg subcut ONCE 03/02/25 04/23/25 Unknown History pen injector (Flo Lainez) ferric citrate 210 mg iron tablet 210 mg PO BID 03/02/25 04/23/25 04/22/25 History (Auryxia) Allergies Allergy/AdvReac Type Severity Reaction Status Date / Time amoxicillin Allergy Severe Difficulty Verified 04/22/25 12:35 Breathing egg Allergy Severe STOPPED Verified 04/22/25 12:35 BREATHING Penicillins Allergy Severe Stopped Verified 04/22/25 12:35 Breathing ciprofloxacin Allergy Intermediate Fever Verified 04/22/25 12:35 bass Allergy Unknown Swelling Verified 04/22/25 12:35 tree nut Allergy Unknown Vomiting Verified 04/22/25 12:35 clindamycin AdvReac Nausea and Verified 04/22/25 12:35 Vomiting Review of Systems Review of Systems: All systems reviewed & are unremarkable except as noted in HPI and below PMFSH Past Medical History Medical History (Updated 04/24/25 @ 19:33 by Krysten Lamb MD) Paroxysmal atrial fibrillation Hypothyroidism End-stage renal disease on peritoneal dialysis Adenomatous colon polyp 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 She underwent left thoracotomy, chemotherapy and radiation. Aortic stenosis Bicuspid aortic valve. Status post aortic valve replacement on 02/11/2019 that resulted in perivalvular regurgitation. Asthma Surgical History Surgical History H/O single vessel coronary artery bypass Saphenous vein graft to LAD with PCI stent to the graft February 2022 with InStent restenoses 07/21/2022 with PCI and laser arthrectomy in placement id DESI x1 with EF postprocedure 50% and moderate aortic regurg S/P colonoscopic polypectomy 2020 Hx of heart artery stent History of aortic valve replacement History of section History of hysterectomy Pacemaker Patient developed bradycardia with sick sinus syndrome requiring pacemaker on 05/15/2019. History of thyroidectomy Family History Family History Father Hypertension Family history of coronary artery disease, Onset Age: 57 Mother Hypertension Cerebrovascular accident Family history of malignant neoplasm Family history of kidney disease Grandparent Family history of kidney disease Social History Social History Social History: Surrogate medical decision maker: She states that both her children her surrogate decision maker. Code status: Full code. Caffeine-coffee Smoking packs per day: 1 Smoking cigarettes per day: 20.0 Years smoked: 25 Smoking pack-years: 25.00 Smoking status: Former smoker Tobacco type: cigarettes Second hand tobacco smoke exposure: Yes Smoking end date: 04/01/12 Additional smoking assessment comments: quit vaping 05/2024 Alcohol intake: never Substance use: former Substance use type: marijuana Other substance usage details: Years ago Do You Feel Safe in your Home?: Yes Lack of Transportation: No Lack of Food: Never True Current Housing: I Have Housing Concerned About Future Housing: No Difficulty Paying Gas/Electric Bills: No Difficulty Paying for Meds: No Currently Unemployed: No Education: High School Diploma/GED Difficulty w/ Childcare or Family Care: No Living arrangements: with family Additional living arrangements comments: She lives alone. 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 Spiritual care concerns: No Agree to blood products: Yes Exam Narrative: General appearance: Well-developed, well-nourished Skin: Normal color Head: Normocephalic, nontraumatic Eyes: Clear conjunctiva ENT: Oropharynx normal, ears normal, nose normal Neck: Supple, nontender Chest and respiratory: Airway patent, no respiratory distress, no accessory muscle use Heart: Regular rate/rhythm Abdomen: Soft, nontender, no organomegaly, quiet bowel sounds, peritoneal catheter in place Vascular: Normal peripheral pulses, normal capillary refill. Musculoskeletal: Scoliosis Neurologic: Alert and oriented ?3, MODELER is normal as tested, no gross motor deficit Course Consultations Consultation #1: DR SORAYA REN AGREED WITH PLAN Date: 04/22/25 Time: 19:11 Vital Signs Vital signs: Vital Signs Temperature 36.6 C 04/22/25 12:00 Pulse Rate 80 04/22/25 12:00 Respiratory Rate 16 04/22/25 12:00 Blood Pressure 110/88 04/22/25 12:00 Pulse Oximetry 100 04/22/25 12:00 Oxygen Delivery Room Air 04/22/25 12:00 Temperature 36.5 C 04/24/25 12:00 Pulse Rate 65 04/24/25 16:00 Respiratory Rate 16 04/24/25 12:00 Blood Pressure 92/66 L 04/24/25 12:00 Pulse Oximetry 93 04/24/25 12:00 Oxygen Delivery Room Air 04/24/25 12:00 MDM - Arrhythmia/Palpitations MDM Narrative Medical decision making narrative: Patient came with palpitation Vital signs are stable Physical examination significant for peritoneal dialysis catheter in place, scoliosis, chest scar status post CABG otherwise unremarkable Differential diagnosis include anxiety like symptoms, electrolyte imbalance, dehydration, hyperthyroidism, coronary artery disease Blood workup today includes CBC, CMP, troponin, and TSH showed with platelet 120, ANION GAP 13, BUN 54, CREATININE 12.29 CALCIUM 10.5 CHEST X-RAY SHOWED IMPROVING LEFT-SIDED PLEURAL EFFUSION OPACIFICATION OF THE LEFT UPPER LOBE, AN INTERVAL CHANGE FROM PRIOR OTHERWISE WITHIN NORMAL LIMIT EKG on arrival showed normal sinus rhythm at 75 beats per minute SECOND TROPONIN IS HIGHER THAN THE 1ST 1, ADMIT TO HOSPITALIST, DIAGNOSIS PALPITATION AND ELEVATED TROPONIN. Differential Diagnosis Differential diagnosis: Likely palpitations, anxiety, sinus tachycardia, artial fibrillation, artial flutter, ventricular premature beats, supraventricular tachycardia and ventricular tachycardia Medical Records Attestation: I reviewed the patient's medical records. Lab Data Attestation: I reviewed the patient's lab results. 04/24/25 05:27 04/24/25 15:02 Labs: Lab Results 04/22/25 04/22/25 04/22/25 Range/Units 12:38 14:49 18:15 WBC 7.1 (4.5-10.0) K/mm3 RBC 4.51 (4.2-5.4) M/mm3 Hgb 13.1 (12.0-15.0) g/dL Hct 42.2 (37.0-47.0) % MCV 93.6 (80-100) fl MCH 29.0 (26-34) pg MCHC 31.0 L (32-36) g/dl RDW 17.2 H (11.5-14.5) % Plt Count 120 L (150-375) k/mm3 MPV 10.6 H (7.4-10.4) fl Immature Gran % (Auto) 0.1 (0-0.5) % Neut % (Auto) 76.0 H (45.5-73.1) % Lymph % (Auto) 12.8 L (18.3-44.2) % [place] % (Auto) 8.0 (2.6-8.5) % Eos % (Auto) 2.7 (0-4.4) % Baso % (Auto) 0.4 (0.2-1.2) % Lymph # (Auto) 0.91 (0.9-3.2) K/mm3 [place] # (Auto) 0.6 (0.1-0.6) K/mm3 Eos # (Auto) 0.2 (0-0.3) K/mm3 Baso # (Auto) 0.0 (0.0-0.1) K/mm3 Abs Immat Gran (auto) 0.01 (0.00-0.031) K/mm3 Absolute Neuts (auto) 5.4 (1.3-6.7) K/mm3 Absolute Nucleated RBC 0.000 (0.0-0.012) K/mm3 Nucleated RBC % 0.0 (0.0-0.2) % % Immature Plt Fraction 3.0 (0.9-11.2) % PT 13.6 (11.1-14.7) Seconds INR 1.0 APTT 27.7 (22.3-36.8) Seconds Sodium 134 L (137-145) mmol/L Potassium 4.6 (3.4-5.0) mmol/L Chloride 94 L (98-107) mmol/L Carbon Dioxide 27 (22-30) mmol/L Anion Gap 13 H (4-12) mmol/L BUN 54 H (7-17) mg/dL Creatinine 12.29 H (0.7-1.0) mg/dL Estim Creat Clear Calc 4 ml/min Estimated GFR 3 L (59 - ) Glucose 87 (65-110) mg/dL Calcium 10.5 H (8.4-10.2) mg/dL Magnesium 2.7 H (1.6-2.3) mg/dL Total Bilirubin 0.3 (0.2-1.3) mg/dL AST 19 (14-36) U/L ALT 15 (6-35) U/L Alkaline Phosphatase 62 (38-126) U/L Troponin I 0.055 H* 0.077 H* D (0.000-0.034) ng/mL Total Protein 6.3 (6.3-8.2) g/dL Albumin 3.4 L (3.5-5.1) g/dL Lipase 67 (23-300) U/L TSH 3.930 (0.465-4.680) uIU/mL Critical Care Time Critical Care Time Critical Care Time: No Discharge Plan Discharge Clinical Impression: Palpitation, Elevated troponin Patient Disposition: Still a Patient Condition: Stable
--- OUTSIDE RECORDS SUMMARY | 2025-04-22 12:33 | XMS_ITS | Clinical Summary ---
Author Organization [facility] Address [facility] [place] [address] Care Team Providers Care Bobbin Disker Name Role Phone Unavailable Primary Care Provider [...]
--- OUTSIDE RECORDS SUMMARY | 2025-04-22 12:34 | XMS_ITS | Referral Summary ---
Author Organization [facility] Address [address] [place] [address] Care Team Providers Care Ampoule Filler And Sealer Name Role Phone Quinton Rowan MD Unavailable Pal Downey DO Primary Care Provider [phone] Tami Flores RN Unavailable Cricket Escalante MD Unavailable Gael Sprague MD PhD Unavailable Brad Turner MD Unavailable [phone] Margarita Montoya MD Unavailable Luca Lott MD Unavailable [phone] Pb Galloway MD Unavailable Felipe Gerber MD Unavailable [phone] Encounters Date Type Department Care Team Description 04/20/2025 10:00 AM CDT - 04/20/2025 11:59 PM CDT Hospital Encounter [address] [address] ESRD (end stage renal disease) (HCC) Discharge Disposition: Discharge to home or self care 04/20/2025 2:00 PM CDT Ancillary Procedure [facility] [address] [place] [address] [address] [facility]ER HERRER[phone] Palpitations 04/20/2025 Orders Only [facility] Cardiology [facility] Medical Office Building 3 [address] [place] [address] Luca Lott MD Palpitations (Primary Dx) 04/07/2025 Telephone [facility] and [facility] Transplant Kidney [address] [facility] 3401 Mailstop [phone] [place] [address] Tiarra Mcdermott 04/07/2025 Telephone [facility] and [facility] Transplant Kidney [address] [facility] 3401 Mailstop [phone] [place] [address] Tami Flores, TONO 04/07/2025 11:30 AM CDT Office Visit [address] Office Building 3 [address] [place] [phone] Luca Lott MD Nonrheumatic aortic valve stenosis (Primary Dx); Coronary artery disease involving [place] coronary artery of [place] heart without angina pectoris 03/27/2025 Orders Only [facility] Cardiology [address] [facility] 8th [place] [address] [place] [address] Claire Mcnally, TONO 03/25/2025 10:00 AM CDT - 03/25/2025 11:59 PM CDT Hospital Encounter [address] [address] ESRD (end stage renal disease) (HCC) Discharge Disposition: Discharge to home or self care 03/02/2025 SHOP/CHAP Initial Outreach [facility] OP CASE MANAGEMENT [address] [place] [address] Claire Rosales LCSW 03/01/2025 10:00 AM CDT - 03/01/2025 11:59 PM CDT Hospital Encounter [address] [address] ESRD (end stage renal disease) (HCC) Discharge Disposition: Discharge to home or self care 02/26/2025 SHOP/CHAP Initial Outreach [facility] OP CASE MANAGEMENT [address] [place] [address] Claire Rosales LCSW 02/25/2025 SHOP/CHAP Initial Outreach [facility] OP CASE MANAGEMENT [address] [place] [address] Claire Rosales LCSW 02/25/2025 SHOP/CHAP Initial Eligibility Review [facility] OP CASE MANAGEMENT [address] [place] [address] Claire Rosales LCSW 02/20/2025 8:07 PM CDT - 02/24/2025 3:54 PM CDT Hospital Encounter [address] [phone] Jaimie Haddad MD Patel, Namrata Nikhil, MD Acute coronary syndrome (HCC) (Primary Dx); Chest pain [R07.9]; Coronary artery disease involving [place] coronary artery of [place] heart without angina pectoris [I25.10] Discharge Disposition: Discharge to home or self care 02/23/2025 11:33 AM CDT - 02/23/2025 12:53 PM CDT Surgery [facility] [address] [place] [phone] Luca Lott MD LEFT HEART CATHETERIZATION WITH CORONARY ANGIOGRAPHY AND WITH OR WITHOUT LEFT VENTRICULOGRAM [id number] 02/20/2025 10:41 AM CDT - 02/20/2025 7:48 PM CDT Emergency [address] [address] Khanh Shankar DO Potluri, Sobhana Krishna, MD Chest pain, unspecified type (Primary Dx); ESRD (end stage renal disease) (HCC) Discharge Disposition: Discharge to a critical access hospital 02/09/2025 Telephone [facility] Cardiology [address] [place] [address] 8th [place] [address] [place] [phone] Luca Lott MD 02/05/2025 Telephone [facility] Cardiology 10[address] [facility] Medical Office Building 3 [address] [place] [phone] Luca Lott MD inquiry from COOK BOX FILLER re: txp 02/05/2025 3:00 PM CDT Office Visit [facility] Cardiology [address] [place] [address] Medical Office Building 3 [address] [place] [phone] Miranda Joy NP Coronary artery disease involving [place] coronary artery of [place] heart without angina pectoris (Primary Dx); S/P TAVR (transcatheter aortic valve replacement); Nonrheumatic mitral valve stenosis; Chronic diastolic heart failure (HCC); Pre-transplant evaluation for end stage renal disease 01/28/2025 10:35 AM CDT - 01/28/2025 11:59 PM CDT Hospital Encounter [address] [address] Discharge Disposition: Discharge to home or self care 01/28/2025 10:02 AM CDT - 01/28/2025 11:59 PM CDT Hospital Encounter [facility] [address] [place] [address] ESRD (end stage renal disease) ([facility]) Discharge Disposition: Discharge to home or self care 01/28/2025 10:02 AM CDT - 01/28/2025 11:59 PM CDT Hospital Encounter [facility] [address] [place] [address] ESRD (end stage renal disease) ([facility]) Discharge Disposition: Discharge to home or self care 01/28/2025 10:02 AM CDT - 01/28/2025 11:59 PM CDT Hospital Encounter [facility] [address] [place] [address] ESRD (end stage renal disease) ([facility]) Discharge Disposition: Discharge to home or self care 01/28/2025 9:50 AM CDT Lab [facility] [place] [address] 01/28/2025 9:35 AM CDT Lab [facility] ([facility]) [address] [place] [address] Polycystic liver disease; ESRD (end stage renal disease) (HCC) 01/28/2025 8:00 AM CDT Office Visit [facility] Gastroenterology [address] [facility] 12th [place] [address] Abigail Vides MD Polycystic liver disease (Primary Dx) 01/22/2025 10:00 AM CDT - 01/22/2025 11:59 PM CDT Hospital Encounter [facility] [address] [place] [address] Discharge Disposition: Discharge to home or self care 01/22/2025 Orders Only [facility] Nephrology [address] [facility] 2nd Floor [address] [place] [address] Salina Hector MD from Last 3 Months Allergies Active Allergy Reactions Criticality Noted Date Comments Amoxicillin Anaphylaxis High Per Armani Dumas MD, patient has previously tolerated cephalosporins. Frank Buckely, PharmD 05/10/2019 Ampicillin Anaphylaxis High 04/29/2015 Per Armani Dumas MD, patient has previously tolerated cephalosporins. Frank Buckley, PharmD 05/10/2019 Ghosh Hives Medium 12/22/2021 Richards beans, navy beans; Is able to eat green beans Clarithromycin Anaphylaxis High Egg Anaphylaxis High 03/15/2019 Reaction: PT. STATES SHE STOPS BREATHING Penicillins Anaphylaxis,Rash,Un known High 04/29/2015 Femmife-Wum-Lzy Reductase Inhibitors Muscle pain Medium 02/20/2025 Trialed [...] (02/01/2022): Added automatically from request for surgery [id number] Assessment & Plan (02/05/2025 3:15 PM CDT): Undergoing pre transplant evaluation. We will review with Dr. Lott regarding possible candidacy for transplant list given recent interventions. Continued to DAPT Disorder of peritoneal dialysis catheter 022 Overview (12/22/2021): Added automatically from request for surgery [id number] Chronic kidney disease, stage V 10/31/2021 Overview (08/21/2023): Added automatically from request for surgery [id number] Sick sinus syndrome 11/02/2020 Diastolic heart failure [...] Plan (02/25/2019 11:43 AM CDT): [facility] with 95% LAD lesion, had some RV [...] Plan (02/24/2019 9:29 AM CDT): [facility] with 95% LAD lesion, had some RV [...] Plan (02/20/2019 5:17 AM CDT): [facility] with 95% LAD lesion, had some RV dysfunction during AV repair and found to have RCA occlusion following LAD bypass - s/p IABP placement - CABG to LAD and LCA Assessment & Plan (02/19/2019 2:08 AM CDT): [facility] with 95% LAD lesion, had some RV dysfunction during AV repair and found to have RCA occlusion following LAD bypass - s/p IABP placement - CABG to LAD and LCA Assessment & Plan (02/17/2019 7:38 PM CDT): [facility] with 95% LAD lesion, had some RV dysfunction during AV repair and found to have RCA occlusion following LAD bypass - s/p IABP placement - CABG to LAD and LCA - on Epi and Milrinone, wean epi as above Assessment & Plan (02/16/2019 11:38 PM CDT): [facility] with 95% LAD lesion, had some RV dysfunction during AV repair and found to have RCA occlusion following LAD bypass - s/p IABP placement - CABG to LAD and LCA - on Epi and Milrinone of inotropy Assessment & Plan (02/11/2019 6:16 PM CDT): [facility] with 95% LAD lesion, had some RV dysfunction during AV repair and found to have RCA occlusion following LAD bypass - s/p IABP placement - CABG to LAD and LCA - on Epi and Milrinone of inotropy Assessment & Plan (02/08/2019 5:38 PM CDT): -Patient w/ chest pain/SOB along w/ significant troponin elevation -Plan for [facility] w/ possible PCI tomorrow pending results -heparin, [...] - valve team consulted, 02/09 [facility] with severe 1 vessel disease of ostial [...] (02/09/2019): Added automatically from request for surgery [id number] Assessment & Plan (05/17/2019 9:19 AM CDT): [...] (02/10/2019): Added automatically from request for surgery [id number] Assessment & Plan (02/05/2025 3:15 PM CDT): [...] with left shoulder pain similar to previous LA -EKG changes per OSH --Slight elevation in [...] currently stable Daily BMPs, while inpatient Home tube coremaker is Dr. Escalante Continue lasix 40 mg [...] kidney disease, baseline Cr 2.4-2.6. F/b OSH tube coremaker. Apparently discussions for potential need for renal txp being discussed. - Cr at baseline on adm - avoid nephrotoxins, renally dose meds - continue calcitriol 0.5 mcg/day - Cr 2.75, received pre-cath hydration, stable 2.7 Headache 05/02/2016 Moderate COPD (chronic obstr uctive pulmonary disease) ([facility]) 11/02/2015 Assessment & Plan [...] AM CDT): Alexis TAVR 05/21 Followed by [facility], Dr. Lott. CT TAVR [...] not a candidate for intervention (declined by [facility]) Assessment & Plan (05/17/2019 [...] AV. Referred to valve team by primary printing equipment mechanic Dr. Rowan. Seen 02/02 by valve team [...] around 2.4 Dr Escalante is her home tube coremaker Assessment & Plan (02/23/2019 12:20 PM CDT): Pt above POW by 2 kg. Lasix on hold due to elevation in Creatinine Baseline creat is around 2.4 Dr Escalante is her home tube coremaker Agitation requiring sedation protocol 02/14/2019 02/23/2019 Acute [...] she had reactions to (?). Per OSH tube coremaker's note in Care Everywhere, pt tried metoprolol [...] on file Legal Sex Female 4:06 AM BULB PACKER Gender Identity Female 01/16/2024 11:18 AM CDT [...] disease) (HCC) Medical Devices Implanted Type Area Lime Kiln Tender Device Identifier Shelf Expiration Date Model / Serial / Lot Angio-Seal Evolution 6fr Vascular Closure [id number] - [id number] - [id number] Implanted:Qty: 1 on 03/09/2022 by Luca Lott MD at [facility] Collagen Right: Femoral Terumo Medical Pam 09/19/2022 [id number] / [id number] / [id number] Ter[employer]o [employer] Pam Angio-Seal Vip 6fr Closere Device [id number] - [id number] - [id number] Implanted:Qty: 1 on 07/24/2022 by Luca Lott MD at [facility] Collagen [employer] Medical Pam 03/20/2023 159308 / [id number] / [id number] Terumo Medical Pam Angio-Seal Vip 6fr Closere Device [id number] - [id number] - [id number] Implanted:Qty: 1 on 05/21/2024 at [facility] Collagen Right: Common Femoral Artery [employer] Pam 01/09/2025 [id number] / [id number] / [id number] Ter[employer]o Medical Pam Angio-Seal Vip Bondek-Plus 8fr .038in 70cm Hemostatic Latex Free 054054 - [id number] - [id number] Implanted:Qty: 1 on 05/21/2024 by Felipe Gerber MD at [facility] Collagen Right: Common Femoral Artery Terumo Octopart Pam 01/06/2025 223527 / [id number] / [id number] Ter[employer]o Medical Pam Angio-Seal Vip 6fr Closere Device 530376 - [id number] - [id number] Implanted:Qty: 1 on 02/23/2025 by Luca Lott MD at [facility] Collagen Terumo Octopart Pam 06/15/2025 812499 / [id number] / [id number] Medtronic Cardiac Rhythm Mgmt 5076-52 Capsurefix Novus 6.2fr 2mm 52cm Bipolar Screw In Implantable Latex Free - [id number] - [id number] Implanted:Qty: 1 on 05/15/2019 by Lane Ramos MD PhD at [facility] Lead Medtronic Inc 03/11/2021 5076-52 / [id number] / Medtronic Cardiac Rhythm Mgmt 5076-45 Capsurefix Novus 6.2fr 2mm 45cm Bipolar Screw In Implantable - [id number] - [id number] Implanted:Qty: 1 on 05/15/2019 by Lane Ramos MD PhD at [facility] Lead Medtronic Inc 03/30/2021 5076-45 / [id number] / ShangPin [id number] Linear 7.5fr 6in Insertion Kit Artist Manager Introducer Sheath - [id number] Implanted:Qty: 1 on 02/10/2019 by Luca Lott MD at [facility] Other - see comments ShangPin [id number] -[id number] 1 / / Description:IABP Medtronic Inc [id number] [place] Curl Cath Beta-Cap Holden 15fr 57cm 2 Cuff Clamp Adapter - S0 - [id number] Implanted:Qty: 1 on 11/21/2021 by Carlos Kamara MD at [facility] Other - see comments N/A: Abdomen Medtronic Inc 11/30/2022 8811-31 3015 / 0 / [id number] Medtronic Cardiac Rhythm Mgmt W1dr01 [place] Wirelessly Pacemaker Cardiac - [id number] - [id number] Implanted:Qty: 1 on 05/15/2019 by Lane Ramos MD PhD at [facility] Pacemaker Medtronic Inc [id number] 09/17/2020 W1DR01 / [id number] / Jamil Lifesciences Valve Aortic Trnscath Brown 3 Ultra Resilia 20mm 0470ncy88e - [id number] - [id number] Implanted:Qty: 1 on 05/21/2024 by Felipe Gerber MD at [facility] Prosthetic Valve N/A: Aortic Valve Jamil Lifesciences 02/27/2027 [id number] 20A / [id number] / Medtronic Inc Resolute Clive 4mm 2.1-2.7fr 12mm 140cm Rapid Exchange Radiopaque [id number] - [id number] - [id number] Implanted:Qty: 1 on 03/09/2022 by Luca Lott MD at [facility] Stent Left: Coronary Medtronic Inc 12/06/2022 RONYX40 012UX / [id number] / [id number] Description:LAD Biotronik Inc Stent Coronary De Rx Cocr Ors Msn 4.0x15mm 283312 - [id number] - [id number] Implanted:Qty: 1 on 07/24/2022 by Luca Lott MD at [facility] Stent Biotronik Inc 09/05/2023 069961 / [id number] / [id number] Medtronic Card Vasc Surgery 4.0 X 15mm Clive [place] Rx Coronary Stent [id number] - [id number] - [id number] Implanted:Qty: 1 on 11/19/2024 by Luca Lott MD at [facility] Stent N/A: Saphenous Vein Graft Medtronic Card Vasc Surgery 05/05/2027 [id number] [id number] / [id number] / [id number] Medtronic Card Vasc Surgery 2.50 X 12mm [place] Rx Coronary Stent [id number] - [id number] - [id number] Implanted:Qty: 1 on 12/25/2024 by Luca Lott MD at [facility] Stent Medtronic Card Vasc Surgery 06/03/2027 [id number] [id number] / [id number] / [id number] [employer] Pam Synergy Xd Monorail 3mm 20mm 144cm Delivery System 1 Access Port [id number] - [id number] - [id number] Implanted:Qty: 1 on 02/23/2025 by Luca Lott MD at [facility] Stent [employer] Pam 06/08/2026 [id number] / [id number] / [id number] Painter Vascular System Closure Repair Femoral Artery Suture Mediated Perclose Prostyle 67592-85 - [id number] - [id number] Implanted:Qty: 1 on 05/21/2024 by Felipe Gerber MD at [facility] Vascular Closure Device Left: Common Femoral Artery Painter Vascular 02/17/2026 21580-4 3 / [id number] / [id number] Terumo Medical Pam Angio-Seal Vip 6fr Closere Device 328002 - [id number] - [id number] Implanted:Qty: 1 on 11/19/2024 by Luca Lott MD at [facility] Vascular Closure Device N/A: Saphenous Vein Graft [employer] Medical Pam 04/29/2025 998369 / [id number] / [id number] Terumo Medical Pam Angio-Seal Vip 6fr Closere Device 640593 - [id number] - [id number] Implanted:Qty: 1 on 12/25/2024 by Sanket Quiroz MD at [facility] Vascular Closure Device Right: Common Femoral Artery [employer] Medical Pam 06/30/2025 564933 / [id number] / [id number] Description:RFA [employer] Pam Angio-Seal Vip Bondek-Plus 8fr .038in 70cm Hemostatic Latex Free 888352 - [id number] - [id number] Implanted:Qty: 1 on 12/25/2024 by Sanket Quiroz MD at [facility] Vascular Closure Device Right: Femoral Vein [employer]o Medical Pam 07/21/2025 107367 / [id number] / [id number] Description:RFV [employer] Pam [id number] Supple Ronna-Guard [place] Processing 4x4cm Patch Cardiovascular - [id number] - [id number] Implanted:Qty: 1 on 02/11/2019 by Christopher Holman MD at [facility] N/A: Chest [employer] Pam 06/03/2023 [id number] / 3211-04 0010 / [id number] Jamil Lifesciences [id number] Certitude Brown 3 Atrion 18fr Transcatheter Introducer Crimper - [id number] - [id number] Implanted:Qty: 1 on 02/11/2019 by Christopher Holman MD at [facility] N/A: Heart Jamil Lif[employer]iences [id number] 0A / [id number] / Medtronic Inc [id number] [place] Curl Cath Beta-Cap Holden 15fr 57cm 2 Cuff Clamp Adapter - [id number] Implanted:Qty: 1 on 12/27/2021 by Margarita Montoya MD at [facility] N/A: Abdomen Medtronic Inc 10/14/2023 8811-31 3015 [...] 10:0 0 AM CDT Narrative HISTOTRAC - BULB PACKER Sample received in lab. Single Antigen Antibody Screen ordered. us Salina Hector MD LAB BLOOD ORDERABLES Final Resul t HISTOTRAC * HLA Antibody Screen by PRA or SAB per Schedule (Class I and Class II) (03/01/2025 10:00 AM CDT) Blood 03/01/2025 10:0 0 AM CDT Narrative HISTOTRAC - BULB PACKER Sample received in lab and stored. No [...] ORDERABLES Final Result CAMERON SALOMON [facility] Department [place] [address] * (ABNORMAL) Differential, auto (02/24/2025 9:50 AM CDT) Pathologist [facility] Neutrophil abs 4.72 1.50 - 6.50 K/cumm Imm gran abs 0.02 0.00 - 0.10 K/cumm [facility] Lymphocyte abs 0.73(L) 0.80 - 3.30 K/cumm [facility] Monocyte abs 0.42 0.20 - 0.80 K/cumm [facility] Eosinophil abs 0.21 0.00 - 0.50 K/cumm [facility] Basophil abs 0.04 0.00 - 0.10 K/cumm [facility] Neutrophil pct 76.9 % [facility] Comment: Interpretive Data Percent cell count reference ranges are not reported, since discordance with absolute values may lead to misinterpretation of CBC data. Current Interpretive Data was last revised on 2018. Imm gran pct 0.3 % [facility] Comment: Interpretive Data Percent cell count reference ranges are not reported, since discordance with absolute values may lead to misinterpretation of CBC data. Current Interpretive Data was last revised on 2018. Lymphocyte pct 11.9 % [facility] Comment: Interpretive Data Percent cell count reference ranges are not reported, since discordance with absolute values may lead to misinterpretation of CBC data. Current Interpretive Data was last revised on 2018. Monocyte pct 6.8 % [facility] Comment: Interpretive Data Percent cell count reference ranges are not reported, since discordance with absolute values may lead to misinterpretation of CBC data. Current Interpretive Data was last revised on 2018. Eosinophil pct 3.4 % [facility] Comment: Interpretive Data Percent cell count reference ranges are not reported, since discordance with absolute values may lead to misinterpretation of CBC data. Current Interpretive Data was last revised on 2018. Basophil pct 0.7 % [facility] Comment: Interpretive Data Percent cell count reference ranges are not reported, since discordance with absolute values may lead to misinterpretation of CBC data. Current Interpretive Data was last revised on 2018. Blood 02/24/2025 9:50 AM CDT 02/24/2025 10:17 AM CDT Dasha Montez LAB BLOOD ORDERABLES Final Result Performing Organization Address [facility] Co de Phone Number [facility] Department [place] [address] * (ABNORMAL) CBC with auto differential (02/24/2025 9:50 AM CDT) [facility] WBC 6.14 3.80 - 9.90 K/cumm Hgb 12.5 11.9 - 15.5 g/dL [facility] Hct 39.5 35.6 - 45.5 % [facility] Plt 177 150 - 400 K/cumm [facility] MPV 10.8 9.1 - 12.[address] [facility] RBC 4.37 3.90 - 5.20 M/cumm [facility] MCV 90.4 81.3 - 96.[address] [facility] MCH 28.6 27.1 - 33.[address] [facility] MCHC 31.6(L) 32.3 - 35.7 g/dL [facility] RDW CV 15.9(H) 11.1 - 14.9 % [facility] RDW SD 51.0(H) 35.7 - 48.[address] [facility] NRBC abs 0.00 0.00 - 0.01 K/cumm [facility] Blood 02/24/2025 9:50 AM CDT 02/24/2025 10:17 AM CDT Dasha Montez LAB BLOOD ORDERABLES Final Result Performing Organization Address City/[facility]/ZIP Co de Phone Number [facility] Department [place] [address] * (ABNORMAL) Basic metabolic panel (02/24/2025 9:50 AM CDT) [facility] Sodium 136 135 - 145 mmol/L Potassium, pl 5.0(H) 3.3 - 4.9 mmol/L [facility] Chloride 93(L) 97 - 110 mmol/L [facility] CO2 27 22 - 32 mmol/L [facility] Anion gap 16(H) 2 - 15 mmol/L [facility] BUN 43(H) 6 - 25 mg/dL [facility] Creatinine 11.83(H) 0.60 - 1.10 mg/dL [facility] Glucose 82 70 - 199 mg/dL [facility] Comment: Interpretive Data Fasting glucose >/= [...] 2022. Calcium 7.9(L) 8.5 - 10.3 mg/dL [facility] Blood 02/24/2025 9:50 AM CDT 02/24/2025 10:17 AM CDT Dasha Montez DO LAB BLOOD ORDERABLES Final Result [facility] Department [place] [address] * (ABNORMAL) eGFR (02/23/2025 11:43 PM CDT) [...] BLOOD ORDERABLES Final Result Performing Organization Address [facility]/ZIP Co de Phone Number [facility] Department [place] [employer] [place] [place] [address] * VerifyNow clopidogrel (02/23/2025 11:43 PM CDT) [...] ORDERABLES Fin al Result Performing Organization Address City/[facility]/ZIP Co de Phone Number [facility] Department [place] [address] * (ABNORMAL) Phosphorus (02/23/2025 11:43 PM CDT) Pathologist [facility] Phosphorus, pl 7.6(H) 2.3 - 4.5 mg/dL Blood 02/23/2025 11:4 3 PM CDT 02/24/2025 12:22 AM CDT Jaimie Giordano MD LAB BLOOD ORDERAB[place] [address] * Magnesium (02/23/2025 11:43 PM CDT) [facility] Magnesium 2.4 1.4 - 2.5 mg/dL Blood 02/23/2025 11:4 3 PM CDT 02/24/2025 12:22 AM CDT Jaimie Giordano MD LAB BLOOD ORDERABLES Final Result Performing Organization Address City/[facility] [place] [address] * (ABNORMAL) Basic metabolic panel (02/23/2025 11:43 PM CDT) [facility] Sodium 133(L) 135 - 145 mmol/L Potassium, pl 4.9 3.3 - 4.9 mmol/L [facility] Chloride 95(L) 97 - 110 mmol/L [facility] CO2 27 22 - 32 mmol/L [facility] Anion gap 11 2 - 15 mmol/L [facility] BUN 52(H) 6 - 25 mg/dL [facility] Creatinine 11.94(H) 0.60 - 1.10 mg/dL [facility] Glucose 89 70 - 199 mg/dL [facility] Comment: Interpretive Data Fasting glucose >/= [...] 2022. Calcium 8.0(L) 8.5 - 10.3 mg/dL [facility] Blood 02/23/2025 11:4 3 PM CDT 02/24/2025 12:22 AM CDT us Jaimie Giordano MD LAB BLOOD ORDERABLES Final Result [facility] Department [place] [address] * LEFT HEART CATHETERIZATION WITH CORONARY ANGIOGRAPHY [...] 54 y.o. female : 1970 MR number: [id number] Date of Service: 02/23/2025 Package Center Supervisor: Luca Lott MD Fellow: Sanket Quiorz MD Fellow: Hiral Valverde MD Referring physician: [...] vein graft to her LAD and her [place] left main. She now presents for urgent cardiac catheterization PROCEDURE: The risks, benefits and alternatives of the procedures and moderate sedation were explained to the patient and informed consent was obtained. The patient was brought to the cath laboratory technician and placed on the table Bilateral [...] the LAD angiogram performed using a 6 Slovak 3D RC Percutaneous coronary intervention performed on theSVG to the Proximal LAD. This was an ACC/AHA Type C. Initial Lesion Length 12mm and final lesion Length 20mm. Initial KAROLINA Flow 3 Final KAROLINA Flow 3. Equipment used: 6 3DRC, Sharon [place] IVUS Catheter, Chain Forming Machine Operator 50 wire, 0.9 mm laser atherectomy catheter [...] it was extremely difficult. We used a Chain Forming Machine Operator 50 wire with extreme difficulty wire through [...] 319(H) 123 - 168 sec POC Performer [id number] [facility] POC Device Number [id number] [facility] Blood 02/23/2025 1:41 PM CDT 02/23/2025 1:41 PM CDT Ellie Saenz MD LAB POCT ORDERABLES - DE VICE Final Result Performing Organization Address [facility] Co de Phone Number [facility] Department [place] [employer] [place] [address] * (ABNORMAL) POCT Activated clotting time, low range (02/23/2025 12:35 PM CDT) ACT 351(H) 123 - 168 sec POC Performer [id number] [facility] POC Device Number [id number] [facility] Blood 02/23/2025 12:3 5 PM CDT 02/23/2025 12:35 PM CDT Ellie Saenz MD LAB POCT ORDERABLES - DE VICE Final Result Performing Organization Address [facility] Co de Phone Number [facility] [place] [employer] [place] [address] * (ABNORMAL) aPTT (02/23/2025 6:36 AM CDT) [...] BLOOD ORDERABLES Final Result Performing Organization Address [facility] Co de Phone Number [facility] [place] [place] [address] * (ABNORMAL) eGFR (02/22/2025 11:07 PM CDT) [...] BLOOD ORDERABLES Final Result Performing Organization Address [facility]/ZIP Co de Phone Number [facility] Department [place] [employer] [place] [address] * (ABNORMAL) aPTT (02/22/2025 11:07 PM CDT) [...] ORDERABLES Fin al Result Performing Organization Address [facility] Co de Phone Number [facility] [employer] [address] * (ABNORMAL) Phosphorus (02/22/2025 11:07 PM CDT) Phosphorus, pl 7.2(H) 2.3 - 4.5 mg/dL Blood 02/22/2025 11:0 7 PM CDT 02/22/2025 11:50 PM CDT Jaimie Giordano MD LAB BLOOD ORDERABLES Final Result Performing Organization Address [facility] Co de Phone Number [facility] Department [place] [employer] [place] [address] * Magnesium (02/22/2025 11:07 PM CDT) Magnesium 2.5 1.4 - 2.5 mg/dL Blood 02/22/2025 11:0 7 PM CDT 02/22/2025 11:50 PM CDT Jaimie Giordano MD LAB BLOOD ORDERABLES Final Result Performing Organization Address [facility] Co de Phone Number [facility] [place] [address] * (ABNORMAL) Basic metabolic panel (02/22/2025 11:07 PM CDT) Sodium 134(L) 135 - 145 mmol/L Potassium, pl 4.5 3.3 - 4.9 mmol/L [facility] Chloride 95(L) 97 - 110 mmol/L [facility] CO2 28 22 - 32 mmol/L [facility] Anion gap 11 2 - 15 mmol/L [facility] BUN 56(H) 6 - 25 mg/dL [facility] Creatinine 11.97(H) 0.60 - 1.10 mg/dL [facility] Glucose 104 70 - 199 mg/dL [facility] Comment: Interpretive Data Fasting glucose >/= [...] 2022. Calcium 7.8(L) 8.5 - 10.3 mg/dL [facility] Blood 02/22/2025 11:0 7 PM CDT 02/22/2025 11:50 PM CDT Jaimie Giordano MD LAB BLOOD ORDERABLES Final Result [facility] Department [place] [address] * (ABNORMAL) aPTT (02/22/2025 2:25 PM CDT) [...] DO LAB BLOOD ORDERABLES Final Result [facility] [place] [address] * TRANSTHORACIC ECHO (TTE) COMPLETE W DOPPLER/CF W CONTRAST (02/22/2025 1:39 PM CDT) EF Mod BP 51 % CONS SCIMAGE Anatomical Region Laterality Modality Ultrasound 02/22/2025 12:3 8 PM CDT Narrative 02/22/2025 2:49 PM CDT [facility] [place] [address] Transthoracic Echocardiographic Report Patient Name: ESTUARDO COPELAND M : 1970 (54y 3m) Gender: F Study Date: 02/22/2025 12:38:48 PM Ht(Inch): 64 Wt(Lb): 123.9 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 Mild IL. Est. PASP 40-45 mm Hg. 7. 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 Est. PASP 40-45 mm Hg. 7. Physiologic [...] [ 2.70 - 3.70 ] MV Decel Eggj455.43 msec [ 104.00 - 258.00 ] Ao [...] AM CDT) Ventricular Rate EKG/Min 80 BPM [facility] Atrial Rate 80 BPM [facility] IL-Interval (MSEC) 96 ms [facility] QRS-Interval (MSEC) 90 ms [facility] QT-Interval (MSEC) 412 ms [facility] QTc 475 ms [facility] P [place] 90 degrees [facility] R [place] -30 degrees [facility] T [place] 133 degrees [facility] Diagnosis Sinus rhythm with sinus arrhythmia with short [place] Left axis deviation Left ventricular hypertrophy ( Romhilt-Pierce ) Cannot rule out Septal infarct (cited on 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-FEB-2025) ST & T wave abnormality, consider lateral ischemia Abnormal ECG When compared with ECG of 22-FEB-2025 01:51, (unconfirmed) Sinus rhythm has replaced Atrial fibrillation Confirmed by HARJINDER HANDY M.D ([id number]) on 03/05/2025 11:42:44 AM [facility] 02/22/2025 9:14 AM CDT 03/05/2025 11:42 AM CDT Jaimie Giordano MD ECG ORDERABLES Victoria l Result Performing Organization Address [facility] de Phone Number [facility] * (ABNORMAL) Troponin I high-sensitivity 4-hour (02/22/2025 6:24 AM CDT) Trop I hs 1,868(C) <=17 ng/L Comment: Previous critical value noted within 48 hours ago. Interpretive Data For further hscTnI resources including the diagnostic algorithm and an aid in interpretation, copy and paste this link: [email or web address]/show/hsTrop-[email or web address] Current Interpretive Data last revised 2020. Trop I hs pct delta -19(C) % [facility] Comment:Previous critical va lue noted within 48 hours ago. Trop I hs interp Significa nt(C) [facility] Comment:Previous critical va lue noted within 48 hours ago. Blood 02/22/2025 6:24 AM CDT 02/22/2025 6:48 AM CDT us Milton Rubio MD LAB BLOOD ORDERABLES Final Resul t Performing Organization Address [facility] de Phone Number [facility] Department [place] [address] * (ABNORMAL) Troponin I high-sensitivity 2-hour (02/22/2025 4:51 AM CDT) Trop I hs 2,146(C) <=17 ng/L Comment: Previous critical value noted within 48 hours ago. Interpretive Data For further hscTnI resources including the diagnostic algorithm and an aid in interpretation, copy and paste this link: [email or web address]/show/hsTrop-[email or web address] Current Interpretive Data last revised 2020. Trop I hs pct delta -7 % [facility] Trop I hs interp Equivocal [facility] Blood 02/22/2025 4:51 AM CDT 02/22/2025 5:26 AM CDT Milton Rubio MD LAB BLOOD ORDERABLES Final Resul t Performing Organization Address [facility] de Phone Number [facility] [place] [employer] [place] [address] * (ABNORMAL) aPTT (02/22/2025 4:51 AM CDT) [...] ORDERABLES Final Resul t Performing Organization Address [facility] [place] [address] * Infection Prevention Anthony auris PCR, surveillance Axilla/Groin (02/22/2025 2:05 AM CDT) Anthony auris DNA Not Detected Not Detected [facility] Comment: Interpretive Data Testing performed by [facility] using the Pablo estelle 6800 Anthony auris assay. This assay detects DNA from Anthony auris using Real-Time PCR. This assay is laboratory developed and is not cleared by the [place] Food and Drug Administration. The performance characteristics have been verified by the [facility]. Axilla/Groin 02/22/2025 2:05 AM CDT 02/22/2025 3:14 AM CDT Narrative [facility] - 02/22/2025 2:38 PM CDT Order placed by [facility] due to ring surveillance. us Instant Order Generic Provider LAB MICROBIOLOGY - GENERAL ORDERABLES Final Result Performing Organization Address [facility] de Phone Number [facility] Department [place] [address] [facility] * (ABNORMAL) Troponin I high-sensitivity series [...] ORDERABLES Final Resul t Performing Organization Address [facility] Co de Phone Number [facility] Department [place] [address] * (ABNORMAL) eGFR (02/22/2025 2:05 AM CDT) [...] t Performing Organization Address City/[facility]/ZIP Co de Phone Number [facility] Department [place] [employer] [place] [address] * Magnesium (02/22/2025 2:05 AM CDT) Magnesium 2.5 1.4 - 2.5 mg/dL Blood 02/22/2025 2:05 AM CDT 02/22/2025 2:58 AM CDT Milton Rubio MD LAB BLOOD ORDERABLES Final Resul t Performing Organization Address City/[facility]/ZIP Co de Phone Number [facility] Department [place] [employer] [place] [address] * (ABNORMAL) Comprehensive metabolic panel (02/22/2025 2:05 AM CDT) Sodium 138 135 - 145 mmol/L Potassium, pl 4.3 3.3 - 4.9 mmol/L [facility] Chloride 95(L) 97 - 110 mmol/L [facility] CO2 26 22 - 32 mmol/L [facility] Anion gap 17(H) 2 - 15 mmol/L [facility] BUN 55(H) 6 - 25 mg/dL [facility] Creatinine 12.63(H) 0.60 - 1.10 mg/dL [facility] Glucose 99 70 - 199 mg/dL [facility] Comment: Interpretive Data Fasting glucose >/= [...] 2022. Calcium 8.1(L) 8.5 - 10.3 mg/dL [facility] Bilirubin, total 0.2 0.1 - 1.2 mg/dL [facility] Protein, pl 6.0(L) 6.5 - 8.5 g/dL [facility] Albumin 2.6(L) 3.5 - 5.0 g/dL [facility] Alk phos 59 40 - 130 Units/L [facility] ALT 14 7 - 45 Units/L [facility] AST 20 10 - 45 Units/L [facility] Blood 02/22/2025 2:05 AM CDT 02/22/2025 2:58 AM CDT us Milton Rubio MD LAB BLOOD ORDERABLES Final Resul t [facility] Department [place] [address] * ECG 12 lead (02/22/2025 1:45 AM CDT) [facility] Ventricular Rate EKG/Min 137 BPM [facility] QRS-Interval (MSEC) 94 ms [facility] QT-Interval (MSEC) 316 ms [facility] QTc 477 ms [facility] R [place] -41 degrees [facility] T [place] 137 degrees [facility] Diagnosis Age and gender specific ECG analysis Sinus tachycardia Anteroseptal ST-elevation Poor R-wave progression in the precordial leads Left axis deviation Minimal voltage criteria for LVH, may be normal variant ( [place] product ) Anteroseptal infarct , possibly acute T wave abnormality, consider lateral ischemia Abnormal ECG No previous ECGs available Confirmed by HARJINDER HANDY M.D ([id number]) on 02/23/2025 3:10:53 PM [facility] 02/22/2025 1:45 AM CDT 02/23/2025 3:10 PM CDT us Jaimie Giordano MD ECG ORDERABLES Victoria l Result [facility] * (ABNORMAL) eGFR (02/21/2025 8:31 PM CDT) [...] Giordano MD LAB BLOOD ORDERABLES Final Result [facility] Department [place] [address] * Critical Result Callback Chemistry (02/21/2025 8:31 PM CDT) Date Notified [id number] Time Notified [address] [facility] TestName Calcium [facility] Called/Read Back Jose DOMINGUEZ Credentials RN [facility] DOMINGUEZ Called By PD [facility] DOMINGUEZ Blood 02/21/2025 8:31 PM CDT 02/21/2025 9:23 PM CDT us Jaimie Giordano MD LAB BLOOD ORDERABLES Final Result [facility] [place] [place] [address] * Critical Result Callback Chemistry (02/21/2025 8:31 PM CDT) Date Notified [id number] Time Notified [address] [facility] TestName Ca Ionized [facility] Called/Read Back Parminder BARNES [facility] Credentials RN [facility] DOMINGUEZ Called By PD [facility] DOMINGUEZ Blood 02/21/2025 8:31 PM CDT 02/21/2025 9:00 PM CDT us Ellie Saenz MD LAB BLOOD ORDERABLES Fin al Result Performing Organization Address City/[facility] Co de Phone Number [facility] [employer] [place] [address] * (ABNORMAL) Calcium, ionized (02/21/2025 8:31 PM CDT) Calcium, Ionized 3.17(C) 4.50 - 5.10 mg/dL Blood 02/21/2025 8:31 PM CDT 02/21/2025 9:00 PM CDT us Ellie Saenz MD LAB BLOOD ORDERABLES Fin al Result Performing Organization Address City/[facility]/ZIP Co de Phone Number [facility] [place] [address] * (ABNORMAL) aPTT (02/21/2025 8:31 PM CDT) aPTT 52(H) 28 - 38 sec Comment: Interpretive Data Heparin therapeutic range: 66.0 - 100.0 seconds. Range based on correlation with therapeutic heparin activity range of 0.3 - 0.7 Units/mL. Current interpretive data was last revised on 2023. Blood 02/21/2025 8:31 PM CDT 02/21/2025 9:05 PM CDT Narrative [facility] - 02/21/2025 9:15 PM CDT STAT [...] ORDERABL ES Final Result Performing Organization Address City/[facility]/ZIP Co de Phone Number [facility] Department [place] [address] * (ABNORMAL) Phosphorus (02/21/2025 8:31 PM CDT) Pathologist [facility] Phosphorus, pl 8.4(H) 2.3 - 4.5 mg/dL Blood 02/21/2025 8:31 PM CDT 02/21/2025 9:00 PM CDT us Jaimie Giordano MD LAB BLOOD ORDERABLES Final Result [facility] Department [place] [address] * Magnesium (02/21/2025 8:31 PM CDT) Pathologist [facility] Magnesium 2.4 1.4 - 2.5 mg/dL Blood 02/21/2025 8:31 PM CDT 02/21/2025 9:00 PM CDT Jaimie Giordano MD LAB BLOOD ORDERABLES Final Result [facility] Department [place] [address] * (ABNORMAL) Basic metabolic panel (02/21/2025 8:31 PM CDT) [facility] Sodium 139 135 - 145 mmol/L Potassium, pl 4.6 3.3 - 4.9 mmol/L [facility] Chloride 94(L) 97 - 110 mmol/L [facility] CO2 27 22 - 32 mmol/L [facility] Anion gap 18(H) 2 - 15 mmol/L [facility] BUN 53(H) 6 - 25 mg/dL [facility] Creatinine 12.82(H) 0.60 - 1.10 mg/dL [facility] Glucose 82 70 - 199 mg/dL [facility] Comment: Interpretive Data Fasting glucose >/= [...] 2022. Calcium 6.4(C) 8.5 - 10.3 mg/dL [facility] Blood 02/21/2025 8:31 PM CDT 02/21/2025 9:00 PM CDT us Jaimie Giordano MD LAB BLOOD ORDERABLES Final Result Performing Organization Address [facility] Co de Phone Number [facility] [place] [address] * (ABNORMAL) aPTT (02/21/2025 11:39 AM CDT) [...] Final Resul t Performing Organization Address [facility] [place] [address] * (ABNORMAL) Troponin I high-sensitivity (02/21/2025 8:42 [...] ORDERABLES Fin al Result Performing Organization Address [facility] Co de Phone Number [facility] [place] [address] * Thyroid Function [place] (02/21/2025 8:42 AM CDT) Pathologist [facility] TSH 1.88 0.30 - 4.20 mcIUnit/mL Blood 02/21/2025 8:42 AM CDT 02/21/2025 9:24 AM CDT Ellie Saenz MD LAB BLOOD ORDERABLES Fin al Result Performing Organization Address City/[facility] Co de Phone Number [facility] Department [place] [address] * (ABNORMAL) Troponin I high-sensitivity 6-hour (02/21/2025 4:51 AM CDT) [facility] Trop I hs 3,175(C) <=17 ng/L Comment: Previous critical value noted within 48 hours ago. Interpretive Data For further hscTnI resources including the diagnostic algorithm and an aid in interpretation, copy and paste this link: https://bjhlab.testcatalog.org/show/hsTrop-1 Current Interpretive Data last revised 2020. Trop I hs pct delta -25(C) % [facility] Comment:Previous critical va lue noted within 48 hours ago. Trop I hs interp Significa nt(C) [facility] Comment:Previous critical va lue noted within 48 hours ago. Blood 02/21/2025 4:51 AM CDT 02/21/2025 5:32 AM CDT us Jaimie Giordano MD LAB BLOOD ORDERABLES Final Result Performing Organization Address City/[facility] Co de Phone Number [facility] [place] [employer] [address] * (ABNORMAL) aPTT (02/21/2025 4:51 AM CDT) Pathologist [facility] aPTT 82(H) 28 - 38 sec Comment: Interpretive Data Heparin therapeutic range: 66.0 - 100.0 seconds. Range based on correlation with therapeutic heparin activity range of 0.3 - 0.7 Units/mL. Current interpretive data was last revised on 2023. Blood 02/21/2025 4:51 AM CDT 02/21/2025 5:31 AM CDT Milton Rubio MD LAB BLOOD ORDERABLES Final Resul t Performing Organization Address City/[facility] Co de Phone Number [facility] Department [place] [employer] [place] [address] * (ABNORMAL) Troponin I high-sensitivity 4-hour (02/21/2025 2:18 AM CDT) Trop I hs 2,937(C) <=17 ng/L Comment: Previous critical value noted within 48 hours ago. Interpretive Data For further hscTnI resources including the diagnostic algorithm and an aid in interpretation, copy and paste this link: https://bjhlab.testcatalog.org/show/hsTrop-1 Current Interpretive Data last revised 2020. Trop I hs pct delta -31(C) % [facility] Comment:Previous critical va lue noted within 48 hours ago. Trop I hs interp Significa nt(C) [facility] Comment:Previous critical va lue noted within 48 hours ago. Blood 02/21/2025 2:18 AM CDT 02/21/2025 2:49 AM CDT us Jaimie Giordano MD LAB BLOOD ORDERABLES Final Result Performing Organization Address [facility] Co de Phone Number [facility] [place] [place] [address] * (ABNORMAL) Troponin I high-sensitivity 2-hour (02/20/2025 11:27 PM CDT) Trop I hs 3,312(C) <=17 ng/L Comment: Previous critical value noted within 48 hours ago. Interpretive Data For further hscTnI resources including the diagnostic algorithm and an aid in interpretation, copy and paste this link: https://bjhlab.testcatKadmus Pharmaceuticals.org/show/hsTrop-[email or web address] Current Interpretive Data last revised 2020. Trop I hs delta See Comment ng/L [facility] Comment:Inappropriate collec tion time to report a delta. Trop I hs pct delta See Comment % [facility] Comment:Inappropriate collec tion time to report a delta. Trop I hs interp See Comment [facility] Comment:Inappropriate collec tion time to report a delta. Blood 02/20/2025 11:2 7 PM CDT 02/21/2025 12:31 AM CDT us Jaimie Giordano MD LAB BLOOD ORDERABLES Final Result Performing Organization Address [facility] Co de Phone Number [facility] [employer] [address] * (ABNORMAL) Troponin I high-sensitivity series (baseline, 2hr, 4hr, 6hr) (02/20/2025 10:03 PM CDT) Trop I hs 4,242(C) <=17 ng/L Comment: Interpretive Data For further hscTnI resources including the diagnostic algorithm and an aid in interpretation, copy and paste this link: [email or web address] Current Interpretive Data last revised 2020. Blood 02/20/2025 10:0 3 PM CDT 02/20/2025 10:50 PM CDT us Jaimie Giordano MD LAB BLOOD ORDERABLES Final Result Performing Organization Address [facility] Co de Phone Number [facility] Department [place] [employer] [place] [place] [address] * Lactate (02/20/2025 10:03 PM CDT) Lactate 1.3 0.7 - 2.0 mmol/L Blood 02/20/2025 10:0 3 PM CDT 02/20/2025 10:50 PM CDT us Milton Rubio MD LAB BLOOD ORDERABLES Final Resul t [facility] [place] [address] * Critical result callback Cardio chemistry (02/20/2025 10:03 PM CDT) Date Notified [id number] Time Notified 2332 [facility] Test name Trop I hs base CAMERON DOMINGUEZ Called/Read Back Srinath BARNES [facility] Credentials RN [facility] Called By NELSON DOMINGUEZ Blood 02/20/2025 10:0 3 PM CDT 02/20/2025 10:50 PM CDT us Jaimie Giordano MD LAB BLOOD ORDERABLES Final Result Performing Organization Address City/[facility]/ZIP Co de Phone Number [facility] [place] [address] * (ABNORMAL) eGFR (02/20/2025 10:03 PM CDT) [...] BLOOD ORDERABLES Final Result Performing Organization Address [facility] de Phone Number [facility] [place] [address] * (ABNORMAL) aPTT (02/20/2025 10:03 PM CDT) aPTT 45(H) 28 - 38 sec Comment: Interpretive Data Heparin therapeutic range: 66.0 - 100.0 seconds. Range based on correlation with therapeutic heparin activity range of 0.3 - 0.7 Units/mL. Current interpretive data was last revised on 2023. Blood 02/20/2025 10:0 3 PM CDT 02/20/2025 10:54 PM CDT Narrative [facility] - 02/20/2025 11:03 PM CDT Baseline prior to heparin initiation Jaimie Giordano MD LAB BLOOD ORDERABLES Final Result Performing Organization Address [facility] de Phone Number [facility] [place] [address] * Protime-INR (02/20/2025 10:03 PM CDT) PT 11.7 9.7 - 13.0 sec INR 1.08 0.90 - 1.[address] [facility] Comment: Interpretive data Oral anticoagulant therapeutic ranges: Venous thromboembolism prophylaxis or treatment: 2.0-3.0 CARDIOLOGY Standard range: 2.0-3.0 High-intensity range: 2.5-3.5 Refer to indication-specific guidelines for appropriate target ranges for prosthetic heart valve replacement. Current interpretive data was last revised on 2019. Blood 02/20/2025 10:0 3 PM CDT 02/20/2025 10:54 PM CDT Narrative [facility] - 02/20/2025 11:03 PM CDT Baseline prior to heparin initiation us Jaimie Giordano MD LAB BLOOD ORDERABLES Final Result [facility] Department [place] [address] * (ABNORMAL) CBC without differential (02/20/2025 10:03 PM CDT) WBC 5.88 3.80 - 9.90 K/cumm Hgb 13.0 11.9 - 15.5 g/dL [facility] Hct 41.0 35.6 - 45.5 % [facility] Plt 178 150 - 400 K/cumm [facility] MPV 10.6 9.1 - 12.[address] [facility] RBC 4.60 3.90 - 5.20 M/cumm [facility] MCV 89.1 81.3 - 96.[address] [facility] MCH 28.3 27.1 - 33.[address] [facility] MCHC 31.7(L) 32.3 - 35.7 g/dL [facility] RDW CV 15.3(H) 11.1 - 14.9 % [facility] RDW SD 49.6(H) 35.7 - 48.[address] [facility] NRBC abs 0.00 0.00 - 0.01 K/cumm [facility] Blood 02/20/2025 10:0 3 PM CDT 02/20/2025 10:50 PM CDT Narrative [facility] - 02/20/2025 11:02 PM CDT Baseline prior to heparin initiation Jaimie Giordano MD LAB BLOOD ORDERABLES Final Result [facility] Department [place] [address] * (ABNORMAL) Phosphorus (02/20/2025 10:03 PM CDT) Phosphorus, pl 9.2(H) 2.3 - 4.5 mg/dL Blood 02/20/2025 10:0 3 PM CDT 02/20/2025 10:50 PM CDT us Jaimie Giordano MD LAB BLOOD ORDERABLES Final Result [facility] [place] [address] * (ABNORMAL) Magnesium (02/20/2025 10:03 PM CDT) Magnesium 2.8(H) 1.4 - 2.5 mg/dL Blood 02/20/2025 10:0 3 PM CDT 02/20/2025 10:50 PM CDT us Jaimie Giordano MD LAB BLOOD ORDERABLES Final Result [facility] [place] [address] * (ABNORMAL) Lipid panel (02/20/2025 10:03 PM [...] revised on 2018. Triglycerides 166(H) <=149 mg/dL [facility] Comment: Interpretive Data Ages < or [...] revised on 2018. HDL 34(L) >=40 mg/dL [facility] Comment: Interpretive Data Ages < or [...] on 2018. LDL, calculated 133(H) <=129 mg/dL [facility] Comment: Interpretive Data Ages < or [...] revised on 2024. Non-HDL Cholesterol 163 mg/dL [facility] Comment: Interpretive Data Ages < or [...] last revised on 2018. Chol/HDL ratio [address] [facility] Blood 02/20/2025 10:0 3 PM CDT 02/20/2025 10:50 PM CDT Jaimie Giordano MD LAB BLOOD ORDERABLES Final Result [facility] Department [place] [address] * (ABNORMAL) Comprehensive metabolic panel (02/20/2025 10:03 PM CDT) Sodium 138 135 - 145 mmol/L Potassium, pl 4.6 3.3 - 4.9 mmol/L [facility] Chloride 92(L) 97 - 110 mmol/L [facility] CO2 23 22 - 32 mmol/L [facility] Anion gap 23(H) 2 - 15 mmol/L [facility] BUN 55(H) 6 - 25 mg/dL [facility] Creatinine 13.60(H) 0.60 - 1.10 mg/dL [facility] Glucose 101 70 - 199 mg/dL [facility] Comment: Interpretive Data Fasting glucose >/= [...] Calcium 6.9(L) 8.5 - 10.3 mg/dL [facility] Bilirubin, total 0.2 0.1 - 1.2 mg/dL [facility] Protein, pl 7.1 6.5 - 8.5 g/dL [facility] Albumin 3.2(L) 3.5 - 5.0 g/dL [facility] Alk phos 74 40 - 130 Units/L [facility] ALT 16 7 - 45 Units/L [facility] AST 30 10 - 45 Units/L [facility] Blood 02/20/2025 10:0 3 PM CDT 02/20/2025 10:50 PM CDT Jaimie Giordano MD LAB BLOOD ORDERABLES Final Result [facility] Department [place] [address] * ECG 12 lead (02/20/2025 9:19 PM CDT) Ventricular Rate EKG/Min 72 BPM [facility] Atrial Rate 72 BPM [facility] [place]-Interval (MSEC) 120 ms [facility] QRS-Interval (MSEC) 96 ms [facility] QT-Interval (MSEC) 440 ms [facility] QTc 481 ms [facility] P [place] 92 degrees [facility] R [place] -31 degrees [facility] T [place] 140 degrees [facility] Diagnosis Sinus rhythm with Premature atrial complexes Left axis deviation Incomplete right bundle branch block Minimal voltage criteria for LVH, may be normal variant ( [place] product ) Anteroseptal infarct , age undetermined T wave abnormality, consider lateral ischemia Abnormal ECG atrial-paced complexes When compared with ECG of 20-FEB-2025 15:12, (unconfirmed) Premature atrial complexes are now Present Anteroseptal infarct is now Present Confirmed by HARJINDER HANDY M.D ([id number]) on 02/23/2025 12:46:43 PM [facility] 02/20/2025 9:19 PM CDT 02/23/2025 12:46 PM CDT Jaimie Giordano MD ECG ORDERABLES Victoria l Result [facility] [employer] [facility] * (ABNORMAL) Troponin T high-sensitivity 6-hour (02/20/2025 5:36 PM CDT) Trop T hs 911(C) <=14 ng/L Comment: Critical Result called to and read back by Parminder limon, DATE: 2025-02-20 18:15:52 BY: [email or web address] Interpretive Data For further hscTnT resources including the diagnostic algorithm and an aid in interpretation, copy and paste this link: [email or web address].testcatalog.org/show/[email or web address] Current Interpretive Data last revised 2020. Trop T hs interp Significa nt(C) [facility] Comment:Critical Result call ed to and read back by Parminder limon, DATE: 2025-02-20 18:15:52 BY: [email or web address] Blood 02/20/2025 5:36 PM CDT 02/20/2025 5:45 PM CDT us Khanh Shankar DO LAB BLOOD ORDERABLES Final Result [facility] [address] [facility] [place] [address] * (ABNORMAL) eGFR (02/20/2025 5:36 [...] DO LAB BLOOD ORDERABLES Final Result [facility] [address] [facility] Department of Laboratories [place], [place] [id number] * Heparin anti factor Xa activity (02/20/2025 [...] BLOOD ORDERABLES Final Result Performing Organization Address [facility] Co de Phone Number [place] [address] [place] [address] * Hepatitis B surface antibody (immune status) [...] GENERAL ORDERABLES Final Result Performing Organization Address [facility] Co de Phone Number [place] [address] [place] [address] * Hepatitis B Surface Antigen Blood (02/20/2025 5:36 PM CDT) HepBsAg Nonreactive Nonreactive Blood 02/20/2025 5:36 PM CDT 02/20/2025 5:45 PM CDT Girish Maya MD LAB MICROBIOLOGY - GENERAL ORDERABLES Final Result Performing Organization Address [facility]/ZIP Co de Phone Number [place] [address] [facility] [place] [address] * (ABNORMAL) Protime-INR (02/20/2025 5:36 PM CDT) [facility] PT 15.2(H) 12.0 - 14.6 sec Comment:Ref Range High INR 1.2 0.9 - 1.2 [facility] Comment: Ref Range High Interpretive data [...] BLOOD ORDERABLES Final Result Performing Organization Address City/State/[facility] Co de Phone Number [place] [address] [facility] [place] [address] * (ABNORMAL) CBC without differential (02/20/2025 5:36 PM CDT) [facility] WBC 5.51 3.80 - 9.90 K/cumm Hgb 12.1 11.9 - 15.5 g/dL [facility] Hct 38.4 35.6 - 45.5 % [facility] Plt 153 150 - 400 K/cumm [facility] MPV 10.5 9.1 - 12.3 fL [facility] RBC 4.30 3.90 - 5.20 M/cumm [facility] MCV 89.3 81.3 - 96.4 fL [facility] MCH 28.1 27.1 - 33.3 pg [facility] MCHC 31.5(L) 32.3 - 35.7 g/dL [facility] RDW CV 15.1(H) 11.1 - 14.9 % [facility] RDW SD 49.1(H) 35.7 - 48.1 fL [facility] NRBC abs 0.00 0.00 - 0.01 K/cumm [facility] Blood 02/20/2025 5:36 PM CDT 02/20/2025 5:45 PM CDT Narrative [facility] - 02/20/2025 5:48 PM CDT Baseline prior to heparin initiation [facility] LAB BLOOD ORDERABLES Final Result Performing Organization Address [facility]/ZIP Co de Phone Number [facility] [address] [facility] Department [place] [address] * (ABNORMAL) Basic metabolic panel (02/20/2025 5:36 PM CDT) [facility] Sodium 136 135 - 145 mmol/L Potassium, pl 5.8(H) 3.3 - 4.9 mmol/L [facility] Comment:Delta - Results Revi ewed Chloride 94(L) 97 - 110 mmol/L [facility] CO2 23 22 - 32 mmol/L [facility] Anion gap 19(H) 2 - 15 mmol/L [facility] BUN 55(H) 6 - 25 mg/dL [facility] Creatinine 13.90(H) 0.60 - 1.10 mg/dL [facility] Glucose 87 70 - 199 mg/dL [facility] Comment: Interpretive Data Fasting glucose >/= [...] 2022. Calcium 6.7(L) 8.5 - 10.3 mg/dL [facility] Blood 02/20/2025 5:36 PM CDT 02/20/2025 5:45 PM CDT Khanh Shankar LAB BLOOD ORDERABLES Final Result [facility] [address] [facility] [place] [address] * ECG 12 lead (02/20/2025 3:12 PM CDT) Ventricular Rate EKG/Min 72 BPM [facility] Atrial Rate 72 BPM [facility] IL-Interval (MSEC) 106 ms [facility] QRS-Interval (MSEC) 92 ms [facility] QT-Interval (MSEC) 450 ms [facility] QTc 492 ms [facility] P [place] 79 degrees [facility] R [place] -40 degrees [facility] T [place] 133 degrees [facility] Diagnosis Sinus rhythm with sinus arrhythmia with short [place] Left axis deviation T wave abnormality, consider lateral ischemia Prolonged QT Abnormal ECG When compared with ECG of 20-FEB-2025 15:07, Sinus rhythm has replaced Atrial fibrillation Confirmed by MD MCKEON SAMIR ([id number]) on 02/21/2025 5:43:47 PM [facility] 02/20/2025 3:12 PM CDT 02/21/2025 5:43 PM CDT Khanh Shankar DO ECG ORDERABLES Final Resul t [facility] * ECG 12 lead (02/20/2025 3:07 PM CDT) Ventricular Rate EKG/Min 68 BPM [facility] Atrial Rate 67 BPM [facility] QRS-Interval (MSEC) 84 ms [facility] QT-Interval (MSEC) 454 ms [facility] QTc 482 ms [facility] R [place] -39 degrees [facility] T [place] 119 degrees [facility] Diagnosis Suspect unspecified pacemaker failure Atrial fibrillation Left axis deviation Anterior infarct (cited on 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-MAY-2024) T wave abnormality, consider lateral ischemia Abnormal ECG When compared with ECG of 20-FEB-2025 10:47, Atrial fibrillation has replaced Sinus rhythm Confirmed by MD MCKEON SAMIR ([id number]) on 02/21/2025 5:43:35 PM [facility] 02/20/2025 3:07 PM CDT 02/21/2025 5:43 PM CDT Khanh Cm Shankar DO ECG ORDERABLES Final Resul t [facility] * (ABNORMAL) Troponin T high-sensitivity 4-hour (02/20/2025 2:55 PM CDT) Trop T hs 834(C) <=14 ng/L Comment: Critical Result called to and read back by Niko [email or web address], DATE: 2025-02-20 15:27:21 BY: [email or web address] Interpretive Data For further hscTnT resources including the diagnostic algorithm and an aid in interpretation, copy and paste this link: [email or web address].testcatalog.org/show/[email or web address] Current Interpretive Data last revised 2020. Trop T hs pct delta 36(C) % [facility] Comment:Critical Result call ed to and read back by Niko [email or web address], DATE: 2025-02-20 15:27:21 BY: [email or web address] Trop T hs interp Significa nt(C) [facility] Comment:Critical Result call ed to and read back by Niko [email or web address], DATE: 2025-02-20 15:27:21 BY: [email or web address] Blood 02/20/2025 2:55 PM CDT 02/20/2025 2:57 PM CDT Khanh Shankar DO LAB BLOOD ORDERABLES Final Result [facility] [address] [facility] Department [place] [address] * Blood culture Blood (02/20/2025 2:33 PM CDT) Report Final Report: No growth Comment:Testing performed by : [facility], [address] [facility], [place]., [address] Blood 02/20/2025 2:33 PM CDT 02/20/2025 6:26 [...] performance characteristics have been verified by the [facility] Microbiology Laboratory. For questions about this culture, contact the Microbiology Laboratory at [phone]. Interpretive data was last revised on 24. Khanh Shankar DO LAB MICROBIOLOGY - GENERAL ORDERABLES Final Result [facility] [address] [facility] Department [place] [address] * Blood culture Blood (02/20/2025 2:23 PM CDT) Report Final Report: No growth Comment:Testing performed by : [facility], [address] [facility], [place]., [address] Blood 02/20/2025 2:23 PM CDT 02/20/2025 6:26 [...] performance characteristics have been verified by the [facility]. For questions about this culture, contact the Microbiology Laboratory at [phone]. Interpretive data was last revised on 24. Khanh Shankar DO LAB MICROBIOLOGY - GENERAL ORDERABLES Final Result [facility] [address] [facility] Department [place] [address] * (ABNORMAL) Troponin T high-sensitivity 2-hour (02/20/2025 2:02 PM CDT) Trop T hs 785(C) <=14 ng/L Comment: Critical Result called to and read back by Cecilia [email or web address], DATE: 2025-02-20 14:27:31 BY: [email or web address] Interpretive Data For further hscTnT resources including [...] BLOOD ORDERABLES Final Result [facility] [address] [facility] Department [place] [address] * CT Chest WO Contrast (02/20/2025 1:06 [...] by Rc Cody M.D. T: Report ID: [id number] Reading Location: [place] [address] Procedure Note Rc Cody, DO - 02/20/2025 [...] by Rc Cody M.D. T: Report ID: [id number] Reading Location: [place] [address] Khanh Zavalahu DO IM CT PROCEDURES Final [...] by Rc Cody M.D. T: Report ID: [id number] Reading Location: [id number] Procedure Note Rc Cody, DO - 02/20/2025 [...] by Rc Cody M.D. T: Report ID: [id number] Reading Location: [place] [address] Khanh Cm Shankar DO IMG XR PROCEDURES Final Res ult * (ABNORMAL) Troponin T high-sensitivity series (baseline, 2hr, 4hr, 6hr) (02/20/2025 10:52 AM CDT) Pathologist [facility] Trop T hs 611(C) <=14 ng/L Comment: Critical Result called to and read back by [email or web address], DATE: 2025-02-20 11:39:27 BY: [id number] Interpretive Data For further hscTnT resources including the diagnostic algorithm and an aid in interpretation, copy and paste this link: [email or web address].[email or web address]/show/[email or web address] Current Interpretive Data last revised 2020. Blood 02/20/2025 10:5 2 AM CDT 02/20/2025 10:56 AM CDT [facility] LAB BLOOD ORDERABLES Final Result Performing Organization Address [facility] Co de Phone Number [address] [place] [address] * Sepsis Lactate w/ Reflex (02/20/2025 10:52 AM CDT) [facility] Sepsis Lactate 1.8 0.7 - 2.0 mmol/L Blood 02/20/2025 10:5 2 AM CDT 02/20/2025 10:57 AM CDT [facility] LAB BLOOD ORDERABLES Final Result Performing Organization Address [facility] Co de Phone Number [address] [employer] [address] * (ABNORMAL) eGFR (02/20/2025 10:52 AM CDT) [facility] eGFR 3(L) >=60 mL/min/1. 73 [...] DO LAB BLOOD ORDERABLES Final Result [facility] [address] [facility] [place] [address] * (ABNORMAL) Differential, auto (02/20/2025 10:52 AM CDT) [facility] Neutrophil abs 4.13 1.50 - 6.50 K/cumm Imm gran abs 0.02 0.00 - 0.10 K/cumm [facility] Lymphocyte abs 0.61(L) 0.80 - 3.30 K/cumm [facility] Monocyte abs 0.28 0.20 - 0.80 K/cumm [facility] Eosinophil abs 0.15 0.00 - 0.50 K/cumm [facility] Basophil abs 0.02 0.00 - 0.10 K/cumm [facility] Neutrophil pct 79.2 % [facility] Comment: Interpretive Data Percent cell count reference ranges are not reported, since discordance with absolute values may lead to misinterpretation of CBC data. Current Interpretive Data was last revised on 2018. Imm gran pct 0.4 % [facility] Comment: Interpretive Data Percent cell count reference ranges are not reported, since discordance with absolute values may lead to misinterpretation of CBC data. Current Interpretive Data was last revised on 2018. Lymphocyte pct 11.7 % [facility] Comment: Interpretive Data Percent cell count reference ranges are not reported, since discordance with absolute values may lead to misinterpretation of CBC data. Current Interpretive Data was last revised on 2018. Monocyte pct 5.4 % [facility] Comment: Interpretive Data Percent cell count reference ranges are not reported, since discordance with absolute values may lead to misinterpretation of CBC data. Current Interpretive Data was last revised on 2018. Eosinophil pct 2.9 % [facility] Comment: Interpretive Data Percent cell count reference ranges are not reported, since discordance with absolute values may lead to misinterpretation of CBC data. Current Interpretive Data was last revised on 2018. Basophil pct 0.4 % [facility] Comment: Interpretive Data Percent cell count reference ranges are not reported, since discordance with absolute values may lead to misinterpretation of CBC data. Current Interpretive Data was last revised on 2018. Blood 02/20/2025 10:5 2 AM CDT 02/20/2025 10:56 AM CDT Khanh Shankar DO LAB BLOOD ORDERABLES Final Result [facility] [address] [facility] [place] [address] * (ABNORMAL) CBC with auto differential (02/20/2025 10:52 AM CDT) WBC 5.21 3.80 - 9.90 K/cumm Hgb 13.2 11.9 - 15.5 g/dL [facility] Hct 42.8 35.6 - 45.5 % [facility] Plt 158 150 - 400 K/cumm [facility] MPV 10.8 9.1 - 12.3 fL [facility] RBC 4.75 3.90 - 5.20 M/cumm [facility] MCV 90.1 81.3 - 96.4 fL [facility] MCH 27.8 27.1 - 33.3 pg [facility] MCHC 30.8(L) 32.3 - 35.7 g/dL [facility] RDW CV 15.2(H) 11.1 - 14.9 % [facility] RDW SD 49.4(H) 35.7 - 48.1 fL [facility] NRBC abs 0.00 0.00 - 0.01 K/cumm [facility] Blood 02/20/2025 10:5 2 AM CDT 02/20/2025 10:56 AM CDT Khanh Shankar DO LAB BLOOD ORDERABLES Final Result [facility] [address] [facility] [place] [address] * (ABNORMAL) Comprehensive metabolic panel (02/20/2025 10:52 AM CDT) Sodium 137 135 - 145 mmol/L Potassium, pl 4.4 3.3 - 4.9 mmol/L [facility] Chloride 92(L) 97 - 110 mmol/L [facility] CO2 24 22 - 32 mmol/L [facility] Anion gap 21(H) 2 - 15 mmol/L [facility] BUN 48(H) 6 - 25 mg/dL [facility] Creatinine 13.30(H) 0.60 - 1.10 mg/dL [facility] Glucose 72 70 - 199 mg/dL [facility] Comment: Interpretive Data Fasting glucose >/= [...] 2022. Calcium 7.2(L) 8.5 - 10.3 mg/dL [facility] Bilirubin, total 0.3 0.1 - 1.2 mg/dL [facility] Protein, pl 6.6 6.5 - 8.5 g/dL [facility] Albumin 3.1(L) 3.5 - 5.0 g/dL [facility] Alk phos 66 40 - 130 Units/L [facility] ALT 14 7 - 45 Units/L [facility] AST 20 10 - 45 Units/L [facility] Blood 02/20/2025 10:5 2 AM CDT 02/20/2025 10:56 AM CDT Khanh Shankar DO LAB BLOOD ORDERABLES Final Result Performing Organization Address City/[facility]/ZIP Co de Phone Number [facility] [address] [facility] [place] [address] * ECG 12 lead (02/20/2025 10:47 AM CDT) Pathologist [facility] Ventricular Rate EKG/Min 78 BPM [facility] Atrial Rate 78 BPM [facility] IL-Interval (MSEC) 112 ms [facility] QRS-Interval (MSEC) 92 ms [facility] QT-Interval (MSEC) 424 ms [facility] QTc 483 ms [facility] P [place] 86 degrees [facility] R [place] -33 degrees [facility] T [place] 139 degrees [facility] Diagnosis Sinus rhythm with Premature supraventricular complexes Left axis deviation Septal infarct (cited on 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-MAY-2024) T wave abnormality, consider lateral ischemia Abnormal ECG When compared with ECG of 28-JAN-2025 10:10, Sinus rhythm has replaced Electronic atrial pacemaker Confirmed by SULTAN NDIAYE M.D. ([id number]) on 02/22/2025 4:12:38 PM [facility] 02/20/2025 10:4 7 AM CDT 02/22/2025 4:12 PM CDT us Khanh Shankar DO ECG ORDERABLES Final Resul t Performing Organization Address City/[facility]/ZIP Co de Phone Number [facility] * XR Orthopantogram Panorex (01/28/2025 10:32 AM [...] ECG 12 lead (01/28/2025 10:10 AM CDT) [facility] Ventricular Rate EKG/Min 79 BPM [facility] Atrial Rate 79 BPM [facility] IL-Interval (MSEC) 164 ms [facility] QRS-Interval (MSEC) 88 ms [facility] QT-Interval (MSEC) 396 ms [facility] QTc 454 ms [facility] P [place] 112 degrees [facility] R [place] -24 degrees [facility] T [place] 129 degrees [facility] Diagnosis Atrial-paced rhythm in a pattern of bigeminy Anteroseptal infarct (cited on 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-MAY-2024) ST & T wave abnormality, consider lateral ischemia Abnormal ECG When compared with ECG of 25-DEC-2024 06:56, Premature atrial complexes are no longer Present Confirmed by HARJINDER HANDY M.D ([id number]) on 01/29/2025 11:51:51 AM [facility] 01/28/2025 10:1 0 AM CDT 01/29/2025 11:51 AM CDT us Tamar Tang MD ECG ORDERABLES Final Result [facility] * Mislabeled Test (01/28/2025 9:47 AM CDT) Location Other location Reason No Signature On Blood Bank Specimen [facility] Mislabel resolution Testing canceled [facility] Blood 01/28/2025 9:47 AM CDT 01/28/2025 11:45 AM CDT Abigail Vides MD LAB BLOOD ORDERABLES Final Result Performing Organization Address City/[facility]/ZIP Co de Phone Number [facility] Department [place] [address] * (ABNORMAL) eGFR (01/28/2025 9:42 AM CDT) [...] ORDERABLES Final Res ult Performing Organization Address [facility] Co de Phone Number [facility] Department [place] [employer] [place] [address] * HIV 1/2 Antibody plus p24 Antigen [...] ORD ERABLES Final Result Performing Organization Address [facility] de Phone Number [facility] Department [place] [employer] [place] [address] * Hepatitis C antibody Blood (01/28/2025 9:42 AM CDT) Hep C Ab Nonreactive Nonreactive Comment:Antibodies to HCV no t detected. Does NOT exclude the possibility of recent exposure to HCV. Current interpretive data was last revised on 22 Blood 01/28/2025 9:42 AM CDT 01/28/2025 10:56 AM CDT Tamar Tang MD LAB MICROBIOLOGY - GENERAL ORD ERABLES Final Result Performing Organization Address [facility] Co de Phone Number [facility] [place] [address] * Hepatitis B core antibody, total Blood (01/28/2025 9:42 AM CDT) Hep B core IgG/IgM Nonreactive Nonreactive Blood 01/28/2025 9:42 AM CDT 01/28/2025 10:56 AM CDT Tamar Tang MD LAB MICROBIOLOGY - GENERAL ORD [place]ABLES [place] [address] * Hepatitis B surface antibody (immune status) [...] MICROBIOLOGY - GENERAL ORD ERABLES Final Result [facility] [place] [address] * Hepatitis B Surface Antigen Blood (01/28/2025 9:42 AM CDT) HepBsAg Nonreactive Nonreactive Blood 01/28/2025 9:42 AM CDT 01/28/2025 10:56 AM CDT Tamar Tang MD LAB MICROBIOLOGY - GENERAL ORD ERABLES Final Result [facility] [place] [address] * (ABNORMAL) CBC without differential (01/28/2025 9:42 AM CDT) Pathologist [facility] WBC 5.32 3.80 - 9.90 K/cumm Hgb 13.1 11.9 - 15.5 g/dL [facility] Hct 41.5 35.6 - 45.5 % [facility] Plt 156 150 - 400 K/cumm [facility] MPV 10.5 9.1 - 12.[address] [facility] RBC 4.64 3.90 - 5.20 M/cumm [facility] MCV 89.4 81.3 - 96.[address] [facility] MCH 28.2 27.1 - 33.[address] [facility] MCHC 31.6(L) 32.3 - 35.7 g/dL [facility] RDW CV 16.1(H) 11.1 - 14.9 % [facility] RDW SD 51.8(H) 35.7 - 48.[address] [facility] NRBC abs 0.00 0.00 - 0.01 K/cumm [facility] Blood 01/28/2025 9:42 AM CDT 01/28/2025 10:58 AM CDT Abigail Vides MD LAB BLOOD ORDERABLES Final Result Performing Organization Address City/[facility] Co de Phone Number [facility] Department [place] [employer] [place] [address] * (ABNORMAL) Phosphorus (01/28/2025 9:42 AM CDT) Pathologist [facility] Phosphorus, pl 7.4(H) 2.3 - 4.5 mg/dL Blood 01/28/2025 9:42 AM CDT 01/28/2025 10:56 AM CDT Tamar Tang MD LAB BLOOD ORDERABLES Final Res ult Performing Organization Address City/[facility]/ZIP Co de Phone Number [facility] Department [place] [address] * PTH (01/28/2025 9:42 AM CDT) Pathologist [facility] PTH 43 15 - 65 pg/mL Blood 01/28/2025 9:42 AM CDT 01/28/2025 10:56 AM CDT Tamar Tang MD LAB BLOOD ORDERABLES Final Res ult Performing Organization Address [facility] de Phone Number [facility] [place] [address] * (ABNORMAL) Hemoglobin A1c (01/28/2025 9:42 AM CDT) [facility] Hgb A1C 5.8(H) 4.0 - 5.6 % Estimated Average Glucose 120 mg/dL [facility] Comment: The ADA recommends reporting an [...] ORDERABLES Final Res ult Performing Organization Address [facility] de Phone Number [facility] [place] [address] * (ABNORMAL) Comprehensive metabolic panel (01/28/2025 9:42 AM CDT) [facility] Sodium 137 135 - 145 mmol/L Potassium, pl 5.7(H) 3.3 - 4.9 mmol/L [facility] Chloride 95(L) 97 - 110 mmol/L [facility] CO2 27 22 - 32 mmol/L [facility] Anion gap 15 2 - 15 mmol/L [facility] BUN 61(H) 6 - 25 mg/dL [facility] Creatinine 14.50(H) 0.60 - 1.10 mg/dL [facility] Glucose 77 70 - 199 mg/dL [facility] Comment: Interpretive Data Fasting glucose >/= [...] Calcium 7.3(L) 8.5 - 10.3 mg/dL [facility] Bilirubin, total 0.3 0.1 - 1.2 mg/dL [facility] Protein, pl 6.8 6.5 - 8.5 g/dL [facility] Albumin 3.2(L) 3.5 - 5.0 g/dL [facility] Alk phos 64 40 - 130 Units/L [facility] ALT 20 7 - 45 Units/L [facility] AST 24 10 - 45 Units/L [facility] Blood 01/28/2025 9:42 AM CDT 01/28/2025 10:56 AM CDT us Tamar Tang MD LAB BLOOD ORDERABLES Final Res ult [facility] Department [place] [address] * HLA Antibody Screen - SAB (Class [...] a method developed and validated by the [facility] HLA laboratory based on an FDA-approved IVD kit ([employer] Single-Antigen, [employer], [place], [place]). All patient serum samples are pretreated with EDTA before the screen to prevent complement interference. Additional serum treatments, such as adsorption and DTT treatment, may be performed as indicated. Interpretive comments: Low risk: MFI [id number]. Moderate risk: MFI [id number]. Increased risk: MFI >/= 5000. The presence [...] antigens to avoid. Testing performed at the [facility], [address], [facility], [place], [address]. [facility] # [id number]. Rosa Millan, Ph.D., Professional Golf Tournament Player, [facility] Laboratory Wilmer Prescott M.D., Ph.D., [employer], [facility] Laboratory Alma Payton, Ph.D., CLIA [employer], [facility] Current methodology and interpretive comments last revised on 11/15/2022. us Salina Hector MD LAB BLOOD ORDERABLES Final Resul t HISTOTRAC from Last [address] [facility] CHOICE PLUS [facility] HMO/PPO Address: [address] [address] [place] [address] [facility] CHOICE PLUS [facility] HMO/PPO Address: [address] [address] [place] [address] [facility] CHOICE PLUS [facility] HMO/PPO Address: [address] [address] [place] [address] [facility] CHOICE PLUS [facility] HMO/PPO Address: [address] [address] [place] [address] MEDICARE TRANSPLANT [employer] Advance Directives For more information, please contact: [phone] * Full Code (Latest Code Status on [...] 4:20 PM 05/25/2024 8:59 PM Care Teams Ampoule Filler And Sealer Relationship Specialty Start Date End Date Pal Downey DO PCP - General Internal Medicine 01/25/21 Quinton Rowan MD Referring Physician Cardiology 01/09/19 Tami Flores, TONO [address] [address] Registered Nurse Piper Helper 01/25/21 Cricket Escalante MD [address] [address] Referring Physician Nephrology 03/24/21 Gael Sprague MD PhD [address] [address] Fellow Endocrinology Diabetes & Metabolism 03/24/21 Brad Turner MD [address] [place] [address] Consulting Physician Obstetrics and Gynecology 03/24/21 Margarita Montoya MD [address] [id number] Consulting Physician Trauma Surgery 12/27/21 Luca Lott MD [address] [facility] [address] [place] [address] [id number] Consulting Physician Cardiology 08/03/22 Pb Galloway MD [address] [address] Cardiothoracic Surgery 05/25/24 Felipe Gerber MD [address] [address] Consulting Physician Cardiology 05/25/24
--- OUTSIDE RECORDS SUMMARY | 2025-04-22 12:34 | XMS_ITS | Clinical Summary ---
Author Organization [facility] Address [address] [place] [address] Care Team Providers Care Chief Maintenance Supervisor Name Role Phone Quinton Rowan MD Unavailable Pal Downey DO Primary Care Provider [phone] Tami Flores RN Unavailable Cricket Escalante MD Unavailable Gael Sprague MD PhD Unavailable Brad Turner MD Unavailable [phone] Margarita Montoya MD Unavailable [phone] Luca Lott MD Unavailable Pb Galloway MD Unavailable Felipe Gerber MD Unavailable [phone] Allergies Active Allergy Reactions Criticality Noted [...] STOPS BREATHING Penicillins Anaphylaxis,Rash,Un known High 04/29/2015 Ncgpncd-Vlh-Fnw Reductase Inhibitors Muscle pain Medium 02/20/2025 Trialed [...] (02/01/2022): Added automatically from request for surgery [id number] Assessment & Plan (02/05/2025 3:15 PM CDT): Undergoing pre transplant evaluation. We will review with Dr. Lott regarding possible candidacy for transplant list given recent interventions. Continued to DAPT Disorder of peritoneal dialysis catheter 022 Overview (12/22/2021): Added automatically from request for surgery [id number] Chronic kidney disease, stage V 10/31/2021 Overview (08/21/2023): Added automatically from request for surgery [id number] Sick sinus syndrome 11/02/2020 Diastolic heart failure [...] 02/27 Continues to drain significant amounts, clear rcoky - will keep to suction- no airleak [...] along w/ significant troponin elevation -Plan for [facility] w/ possible PCI tomorrow pending results [...] to 4.35 - valve team consulted, 02/09 [facility] with severe 1 vessel disease of [...] (02/09/2019): Added automatically from request for surgery [id number] Assessment & Plan (05/17/2019 9:19 AM CDT): [...] currently stable Daily BMPs, while inpatient Home shoe stitcher odd is Dr. Escalante Continue lasix 40 mg [...] kidney disease, baseline Cr 2.4-2.6. F/b OSH shoe stitcher odd. Apparently discussions for potential need for renal txp being discussed. - Cr at baseline on adm - avoid nephrotoxins, renally dose meds - continue calcitriol 0.5 mcg/day - Cr 2.75, received pre-cath hydration, stable 2.7 Headache 05/02/2016 Moderate COPD (chronic obstr uctive pulmonary disease) ([facility]) 11/02/2015 Assessment & Plan (08/02/2022 5:33 PM [...] AM CDT): Alexis TAVR 05/21 Followed by [facility], Dr. Lott. CT TAVR on [...] not a candidate for intervention [facility] Assessment & Plan (05/17/2019 9:28 AM [...] AV. Referred to valve team by primary welder shielded metal arc Dr. Rowan. Seen 02/02 by valve team [...] around 2.4 Dr Escalante is her home shoe stitcher odd Assessment & Plan (02/23/2019 12:20 PM CDT): Pt above POW by 2 kg. Lasix on hold due to elevation in Creatinine Baseline creat is around 2.4 Dr Escalante is her home shoe stitcher odd Agitation requiring sedation protocol 02/14/2019 02/23/2019 Acute [...] she had reactions to (?). Per OSH shoe stitcher odd's note in Care Everywhere, pt tried metoprolol [...] 2:00 PM CDT Ancillary Procedure [facility] [address] [place] [address] [address] [place] [address] Palpitations 04/20/2025 10:00 AM CDT - 04/20/2025 11:59 PM CDT Hospital Encounter [facility] [address] [place] [address] ESRD (end stage renal disease) (HCC) Discharge Disposition: Discharge to home or self care 04/20/2025 Orders Only [facility] Cardiology [address] [place] [address] Medical Office Building [address] [place] [address] Luca Lott MD Palpitations (Primary Dx) 04/07/2025 11:30 AM CDT Office Visit [facility] Cardiology [address] [facility] Medical Office Building [address] [place] [address] Luca Lott MD Nonrheumatic aortic valve stenosis (Primary Dx); Coronary artery disease involving [place] coronary artery of [place] heart without angina pectoris 04/07/[address] [facility] Transplant Kidney [address] [facility] [address] Mailstop [id number] [place] [address] Tiarra Mcdermott 04/07/[address] [facility] Transplant Kidney [address] [facility] [address] Mailstop [id number] [place] [address] Tami Flores, TONO 03/27/2025 Orders Only [facility] Cardiology [address] [facility] 8th [place] [address] [place] [address] Claire Mcnally RN 03/25/2025 10:00 AM CDT - 03/25/2025 11:59 PM CDT Hospital Encounter [address] [address] ESRD (end stage renal disease) (HCC) Discharge Disposition: Discharge to home or self care 03/02/2025 SHOP/CHAP Initial Outreach [facility]GEMENT [address] [place] [address] Claire Rosales LCSW 03/01/2025 10:00 AM CDT - 03/01/2025 11:59 PM CDT Hospital Encounter [address] [address] ESRD (end stage renal disease) (HCC) Discharge Disposition: Discharge to home or self care 02/26/2025 SHOP/CHAP Initial Outreach [facility]NAG[facility] [address] [place] [id number] Claire Rosales LCSW 02/25/2025 SHOP/CHAP Initial Outreach [facility] CASE MANAGEMENT [address] [place] [id number] Claire Rosales LCSW 02/25/2025 SHOP/CHAP Initial Eligibility Review [facility] [address] [place] [address] Claire Rosales LCSW 02/23/2025 11:33 AM CDT - 02/23/2025 12:53 PM CDT Surgery [facility] [address] [place] [address] Luca Lott MD LEFT HEART CATHETERIZATION WITH CORONARY ANGIOGRAPHY AND WITH OR WITHOUT LEFT VENTRICULOGRAM [id number] 02/20/2025 8:07 PM CDT - 02/24/2025 3:54 PM CDT Hospital Encounter [address] [address] Jaimie Haddad MD Patel, Namrata Nikhil, MD Acute coronary syndrome (HCC) (Primary Dx); Chest pain [R07.9]; Coronary artery disease involving [place] coronary artery of [place] heart without angina pectoris [I25.10] Discharge Disposition: Discharge to home or self care 02/20/2025 10:41 AM CDT - 02/20/2025 7:48 [place] [address] Khanh Shankar DO Potluri, Sobhana Krishna, MD Chest pain, unspecified type (Primary Dx); ESRD (end stage renal disease) (HCC) Discharge Disposition: Discharge to a critical access hospital 02/09/[address] [facility] [address] [place] [address] 8th [place] [address] [place] [address] Luca Lott MD 02/05/2025 3:00 PM CDT Office Visit [facility] [address] [facility] Medical Office Building [address] [place] [address] Miranda Joy NP Coronary artery disease involving [place] coronary artery of [place] heart without angina pectoris (Primary Dx); S/P TAVR (transcatheter aortic valve replacement); Nonrheumatic mitral valve stenosis; Chronic diastolic heart failure (HCC); Pre-transplant evaluation for end stage renal disease 02/05/[address] [facility] [address] [facility] Medical Office Building [address] [place] [phone] Luca Lott MD inquiry from [facility] re: txp 01/28/2025 10:35 AM CDT - 01/28/2025 11:59 PM CDT Hospital Encounter [address] [address] Discharge Disposition: Discharge to home or self care 01/28/2025 10:02 AM CDT - 01/28/2025 11:59 PM CDT Hospital Encounter [facility] [address] [place] [address] ESRD (end stage renal disease) (HCC) Discharge Disposition: Discharge to home or self care 01/28/2025 10:02 AM CDT - 01/28/2025 11:59 PM CDT Hospital Encounter [facility] [address] [place] [address] ESRD (end stage renal disease) (HCC) Discharge Disposition: Discharge to home or self care 01/28/2025 10:02 AM CDT - 01/28/2025 11:59 PM CDT Hospital Encounter [facility] [address] [place] [address] ESRD (end stage renal disease) (HCC) Discharge Disposition: Discharge to home or self care 01/28/2025 9:50 AM CDT Lab [facility] [address] [place] [address] 01/28/2025 9:35 AM CDT Lab [facility] [address] [place] [address] Polycystic liver disease; ESRD (end stage renal disease) (HCC) 01/28/2025 8:00 AM CDT Office Visit [facility] Gastroenterology [address] [facility] 12th [place] [address] [place] [address] Abigail Vides MD Polycystic liver disease (Primary Dx) 01/22/2025 10:00 AM CDT - 01/22/2025 11:59 PM CDT Hospital Encounter [facility] [address] [place] [address] Discharge Disposition: Discharge to home or self care 01/22/2025 Orders Only [facility] Nephrology [address] [place] [address] Salina Hector MD from Last 3 Months [...] Procedure: PCI KARINA MAJOR CORONARY C9600 - [id number]; Surgeon: Luca Lott MD; Location: [facility] CARDIAC BEAM DYER RECESSED VAT; Service: Cardiovascular; Laterality: N/A; Medical devices from this surgery are in the Medical Devices section. CARDIAC CATHETERIZATION 02/23/2025 N/A Procedure: LEFT HEART CATHETERIZATION WITH CORONARY ANGIOGRAPHY AND WITH OR WITHOUT LEFT VENTRICULOGRAM [id number]; Surgeon: Luca Lott MD; Location: [facility] CARDIAC BEAM DYER RECESSED VAT; Service: Cardiovascular; Laterality: N/A; Medical devices from this surgery are in the Medical Devices section. Medical History Medical History Date Comments Hypertension Essential Thyroid mass s/p resection Coronary artery disease invo lving [place] heart 02/07/2019 Added automatically from req uest for surgery [id number] (LAD, LCA) Volume overload 02/14/2019 Leukocytosis 02/21/2019 [...] Polycystic kidney disease ESRD on peritoneal dialysis ([facility]) Heart murmur WV (myocardial infarction) (HCC) CHF (congestive heart failure) ([facility]) Nausea 05/10/2019 Aortic valve insufficiency, acquired 05/19/2024 [...] on file Legal Sex Female 4:06 AM DRIER FEEDER Gender Identity Female 01/16/2024 11:18 AM CDT [...] 03/06/2023, 05/04/2021 Medical Devices Implanted Type Area Blade Filer Device Identifier Shelf Expiration Date Model / Serial / Lot Angio-Seal Evolution 6fr Vascular Closure [id number] - [id number] - [id number] Implanted:Qty: 1 on 03/09/2022 by Luca Lott MD at [facility] Collagen Right: Femoral Terumo [employer] Pam 09/19/2022 [id number] / [id number] / [id number] Ter[employer] Pam Angio-Seal Vip 6fr Closere Device [id number] - [id number] - [id number] Implanted:Qty: 1 on 07/24/2022 by Luca Lott MD at [facility] Collagen [employer] Pam 03/20/2023 091236 / [id number] / [id number] [employer] Pam Angio-Seal Vip 6fr Closere Device 127498 - [id number] - [id number] Implanted:Qty: 1 on 05/21/2024 at [facility] Right: Common Femoral Artery [employer] Pam 01/09/2025 356779 / [id number] / [id number] [employer] Pam Angio-Seal Vip Bondek-Plus 8fr .038in 70cm Hemostatic Latex Free 999543 - [id number] - [id number] Implanted:Qty: 1 on 05/21/2024 by Felipe Gerber MD at [facility] Right: Common Femoral Artery [employer] Pam 01/06/2025 207103 / [id number] / [id number] Ter[employer]o [employer] Pam Angio-Seal Vip 6fr Closere Device 053699 - [id number] - [id number] Implanted:Qty: 1 on 02/23/2025 by Luca Lott MD at [facility] Collagen [employer] Pam 06/15/2025 010241 / [id number] / [id number] Medtronic Cardiac Rhythm Mgmt 5076-52 Capsurefix Novus 6.2fr 2mm 52cm Bipolar Screw In Implantable Latex Free - [id number] - [id number] Implanted:Qty: 1 on 05/15/2019 by Lane Ramos MD PhD at [facility] Lead Medtronic Inc 03/11/2021 5076-52 / [id number] / Medtronic Cardiac Rhythm Mgmt 5076-45 Capsurefix Novus 6.2fr 2mm 45cm Bipolar Screw In Implantable - [id number] - [id number] Implanted:Qty: 1 on 05/15/2019 by Lane Ramos MD PhD at [facility] Lead Medtronic Inc 03/30/2021 5076-45 / [id number] / [id number] Linear 7.5fr 6in Insertion Kit Lead Pastor Introducer Sheath - [id number] Implanted:Qty: 1 on 02/10/2019 by Luca Lott MD at [facility] Other - see comments One2start 0684-00 -[id number] 1 / / Description:IABP Medtronic Inc [id number] Champion Curl Cath Beta-Cap Holden 15fr 57cm 2 Cuff Clamp Adapter - S0 - [id number] Implanted:Qty: 1 on 11/21/2021 by Carlos Kamara MD at [facility] Other - see comments N/A: Abdomen Medtronic Inc 11/30/2022 8811-31 3015 / 0 / [id number] Medtronic Cardiac Rhythm Mgmt W1dr01 Tereza Wirelessly Pacemaker Cardiac - [id number] - [id number] Implanted:Qty: 1 on 05/15/2019 by Lane Ramos MD PhD at [facility] Pacemaker Medtronic Inc [id number] 09/17/2020 W1DR01 / [id number] / Jamli Lifesciences Valve Aortic Trnscath Brown 3 Ultra Resilia 20mm [id number] - [id number] - [id number] Implanted:Qty: 1 on 05/21/2024 by Felipe Gerber MD at [facility] Prosthetic Valve N/A: Aortic Valve Jamil Lifesciences 02/27/2027 [id number] 20A / [id number] / Medtronic Inc Resolute Clive 4mm 2.1-2.7fr 12mm 140cm Rapid Exchange Radiopaque [id number] - [id number] - [id number] Implanted:Qty: 1 on 03/09/2022 by Luca Lott MD at [facility] Stent Left: Coronary Medtronic Inc 12/06/2022 RONYX40 012UX / [id number] / [id number] Description:LAD Biotronik Inc Stent Coronary De Rx Cocr Ors Msn 4.0x15mm 872197 - [id number] - [id number] Implanted:Qty: 1 on 07/24/2022 by Luca Lott MD at [facility] Stent Biotronik Inc 09/05/2023 [id number] / [id number] / [id number] Medtronic Card Vasc Surgery 4.0 X 15mm Clive [place] Rx Coronary Stent [id number] - [id number] - [id number] Implanted:Qty: 1 on 11/19/2024 by Luca Lott MD at [facility] Stent N/A: Saphenous Vein Graft Medtronic Card Vasc Surgery 05/05/2027 ONYXNG4 0015UX / [id number] / [id number] Medtronic Card Vasc Surgery 2.50 X 12mm Clive [place] Rx Coronary Stent [id number] - [id number] - [id number] Implanted:Qty: 1 on 12/25/2024 by Luca Lott MD at [facility] Stent Medtronic Card Vasc Surgery 06/03/2027 ONYXNG2 [id number] / [id number] / [id number] [employer] Pam Synergy Xd Monorail 3mm 20mm 144cm Delivery System 1 Access Port [id number] - [id number] - [id number] Implanted:Qty: 1 on 02/23/2025 by Luca Lott MD at [facility] Stent [employer] Pam 06/08/2026 [id number] / [id number] / [id number] Painter Vascular System Closure Repair Femoral Artery Suture Mediated Perclose Prostyle 84567-02 - [id number] - [id number] Implanted:Qty: 1 on 05/21/2024 by Felipe Gerber MD at [facility] Vascular Closure Device Left: Common Femoral Artery Painter Vascular 02/17/2026 29222-9 3 / [id number] / [id number] [facility] Pam Angio-Seal Vip 6fr Closere Device 504359 - [id number] - [id number] Implanted:Qty: 1 on 11/19/2024 by Luca Lott MD at [facility] Vascular Closure Device N/A: Saphenous Vein Graft [employer] Pam 04/29/2025 142921 / [id number] / [id number] Terumo Medical Pam Angio-Seal Vip 6fr Closere Device 254775 - [id number] - [id number] Implanted:Qty: 1 on 12/25/2024 by Sanket Quiroz MD at [facility] Vascular Closure Device Right: Common Femoral Artery [employer] Pam 06/30/2025 816137 / [id number] / [id number] Description:RFA [employer] Pam Angio-Seal Vip Bondek-Plus 8fr .038in 70cm Hemostatic Latex Free 175520 - [id number] - [id number] Implanted:Qty: 1 on 12/25/2024 by Sanket Quiroz MD at [facility] Vascular Closure Device Right: Femoral Vein [employer] Pam 07/21/2025 907216 / [id number] / [id number] Description:RFV [facility] Pam [id number] Supple Ronna-Guard [place] Processing 4x4cm Patch Cardiovascular - [id number] - [id number] Implanted:Qty: 1 on 02/11/2019 by Christopher Holman MD at [facility] N/A: Chest [employer] [facility] Pam 06/03/2023 [id number] / [id number] 04-0010 / [id number] Jamil Lifesciences [id number] Certitude Brown 3 Atrion 18fr Transcatheter Introducer Crimper - [id number] - [id number] Implanted:Qty: 1 on 02/11/2019 by Christopher Hol[place] MD at [facility] N/A: Heart Jamil Lif[employer]iences [id number] [id number] / [id number] / Medtronic Inc [id number] Champion Curl Cath Beta-Cap Holden 15fr 57cm 2 Cuff Clamp Adapter - [id number] Implanted:Qty: 1 on 12/27/2021 by Margarita Montoya MD at [facility] N/A: Abdomen Medtronic Inc 10/14/2023 [...] 10:0 0 AM CDT Narrative HISTOTRAC - DRIER FEEDER Sample received in lab. Single Antigen Antibody Screen ordered. Salina Hector MD LAB BLOOD ORDERABLES Final Resul t Performing Organization Address [facility] Co de Phone Number HISTOTRAC * HLA Antibody Screen by PRA or SAB per Schedule (Class I and Class II) (03/01/2025 10:00 AM CDT) Blood 03/01/2025 10:0 0 AM CDT Narrative HISTOTRAC - DRIER FEEDER Sample received in lab and stored. No testing performed at this time. us Salina Hector MD LAB BLOOD ORDERABLES Final Resul t Performing Organization Address [facility] Co de Phone Number HISTOTRAC * [...] Montez DO LAB BLOOD ORDERABLES Final Result [facility] Department [place] [address] * (ABNORMAL) Differential, auto (02/24/2025 9:50 AM CDT) Neutrophil abs 4.72 1.50 - 6.50 K/cumm Imm gran abs 0.02 0.00 - 0.10 K/cumm [facility] Lymphocyte abs 0.73(L) 0.80 - 3.30 K/cumm [facility] Monocyte abs 0.42 0.20 - 0.80 K/cumm [facility] Eosinophil abs 0.21 0.00 - 0.50 K/cumm [facility] Basophil abs 0.04 0.00 - 0.10 K/cumm [facility] Neutrophil pct 76.9 % [facility] Comment: Interpretive Data Percent cell count reference ranges are not reported, since discordance with absolute values may lead to misinterpretation of CBC data. Current Interpretive Data was last revised on 2018. Imm gran pct 0.3 % [facility] Comment: Interpretive Data Percent cell count reference ranges are not reported, since discordance with absolute values may lead to misinterpretation of CBC data. Current Interpretive Data was last revised on 2018. Lymphocyte pct 11.9 % [facility] Comment: Interpretive Data Percent cell count reference ranges are not reported, since discordance with absolute values may lead to misinterpretation of CBC data. Current Interpretive Data was last revised on 2018. Monocyte pct 6.8 % [facility] Comment: Interpretive Data Percent cell count reference ranges are not reported, since discordance with absolute values may lead to misinterpretation of CBC data. Current Interpretive Data was last revised on 2018. Eosinophil pct 3.4 % [facility] Comment: Interpretive Data Percent cell count reference ranges are not reported, since discordance with absolute values may lead to misinterpretation of CBC data. Current Interpretive Data was last revised on 2018. Basophil pct 0.7 % [facility] Comment: Interpretive Data Percent cell count reference ranges are not reported, since discordance with absolute values may lead to misinterpretation of CBC data. Current Interpretive Data was last revised on 2018. Blood 02/24/2025 9:50 AM CDT 02/24/2025 10:17 AM CDT Dasha Montez DO LAB BLOOD ORDERABLES Final Result [facility] Department [place] [address] * (ABNORMAL) CBC with auto differential (02/24/2025 9:50 AM CDT) WBC 6.14 3.80 - 9.90 K/cumm Hgb 12.5 11.9 - 15.5 g/dL [facility] Hct 39.5 35.6 - 45.5 % [facility] Plt 177 150 - 400 K/cumm [facility] MPV 10.8 9.1 - 12.3 fL [facility] RBC 4.37 3.90 - 5.20 M/cumm [facility] MCV 90.4 81.3 - 96.4 fL [facility] MCH 28.6 27.1 - 33.3 pg [facility] MCHC 31.6(L) 32.3 - 35.7 g/dL [facility] RDW CV 15.9(H) 11.1 - 14.9 % [facility] RDW SD 51.0(H) 35.7 - 48.1 fL [facility] NRBC abs 0.00 0.00 - 0.01 K/cumm [facility] Blood 02/24/2025 9:50 AM CDT 02/24/2025 10:17 AM CDT Dasha Montez DO LAB BLOOD ORDERABLES Final Result Performing Organization Address City/[facility]/ZIP Co de Phone Number [facility] Department [place] [address] * (ABNORMAL) Basic metabolic panel (02/24/2025 9:50 AM CDT) Pathologist [facility] Sodium 136 135 - 145 mmol/L Potassium, pl 5.0(H) 3.3 - 4.9 mmol/L [facility] Chloride 93(L) 97 - 110 mmol/L [facility] CO2 27 22 - 32 mmol/L [facility] Anion gap 16(H) 2 - 15 mmol/L [facility] BUN 43(H) 6 - 25 mg/dL [facility] Creatinine 11.83(H) 0.60 - 1.10 mg/dL [facility] Glucose 82 70 - 199 mg/dL [facility] Comment: Interpretive Data Fasting glucose >/= 126 [...] 2022. Calcium 7.9(L) 8.5 - 10.3 mg/dL [facility] Blood 02/24/2025 9:50 AM CDT 02/24/2025 10:17 AM CDT Dasha Montez DO LAB BLOOD ORDERABLES Final Result [facility] Department [place] [address] * (ABNORMAL) eGFR (02/23/2025 11:43 PM CDT) [...] BLOOD ORDERABLES Final Result Performing Organization Address [facility] Co de Phone Number [facility] DO[facility]NG[facility] Department [place] [address] * VerifyNow clopidogrel (02/23/2025 11:43 PM CDT) [...] ORDERABLES Fin al Result Performing Organization Address [facility] de Phone Number [facility] Department [place] [address] * (ABNORMAL) Phosphorus (02/23/2025 11:43 PM CDT) Phosphorus, pl 7.6(H) 2.3 - 4.5 mg/dL Blood 02/23/2025 11:4 3 PM CDT 02/24/2025 12:22 AM CDT Jaimie Giordano MD LAB BLOOD ORDERABLES Final Result Performing Organization Address [facility] de Phone Number [facility] Department [place] [address] * Magnesium (02/23/2025 11:43 PM CDT) Magnesium 2.4 1.4 - 2.5 mg/dL Blood 02/23/2025 11:4 3 PM CDT 02/24/2025 12:22 AM CDT Jaimie Giordano MD LAB BLOOD ORDERABLES Final Result Performing Organization Address City/[facility]/ZIP Co de Phone Number CAMERON DOMINGUEZ [facility] Department [place] [address] * (ABNORMAL) Basic metabolic panel (02/23/2025 11:43 PM CDT) Sodium 133(L) 135 - 145 mmol/L Potassium, pl 4.9 3.3 - 4.9 mmol/L [facility] Chloride 95(L) 97 - 110 mmol/L [facility] CO2 27 22 - 32 mmol/L [facility] Anion gap 11 2 - 15 mmol/L [facility] BUN 52(H) 6 - 25 mg/dL [facility] Creatinine 11.94(H) 0.60 - 1.10 mg/dL [facility] Glucose 89 70 - 199 mg/dL [facility] Comment: Interpretive Data Fasting glucose >/= 126 [...] 2022. Calcium 8.0(L) 8.5 - 10.3 mg/dL [facility] Blood 02/23/2025 11:4 3 PM CDT 02/24/2025 12:22 AM CDT Jaimie Giordano MD LAB BLOOD ORDERABLES Final Result Performing Organization Address [facility] Co de Phone Number CAMERON DOMINGUEZ [facility] [place] [address] * LEFT HEART CATHETERIZATION WITH CORONARY ANGIOGRAPHY [...] 54 y.o. female : 1970 MR number: [id number] Date of Service: 02/23/2025 Exchange Floor Manager: Lcua Lott MD Fellow: Sanket Quiroz MD Fellow: [...] vein graft to her LAD and her [place] left main. She now presents for urgent cardiac catheterization PROCEDURE: The risks, benefits and alternatives of the procedures and moderate sedation were explained to the patient and informed consent was obtained. The patient was brought to the laborer pipeline and placed on the table Bilateral groins [...] the LAD angiogram performed using a 6 [place] 3D RC Percutaneous coronary intervention performed on theSVG to the Proximal LAD. This was an ACC/AHA Type C. Initial Lesion Length 12mm and final lesion Length 20mm. Initial KAROLINA Flow 3 Final KAROLINA Flow 3. Equipment used: 6 3DRC, Optini [place] IVUS Catheter, Longitudinal Float Operator 50 wire, 0.9 mm laser atherectomy [...] it was extremely difficult. We used a Longitudinal Float Operator 50 wire with extreme difficulty wire [...] time, low range (02/23/2025 1:41 PM CDT) Valentin Uzhun ACT 319(H) 123 - 168 sec POC Performer [id number] [facility] P[facility] Device Number [id number] [facility] Blood 02/23/2025 1:41 PM CDT 02/23/2025 1:41 PM CDT Ellie Saenz MD LAB POCT ORDERABLES - DE VICE Final Result [facility] Department [place] [address] * (ABNORMAL) POCT Activated clotting time, low range (02/23/2025 12:35 PM CDT) ACT 351(H) 123 - 168 sec POC Performer [id number] [facility] POC Device Number [id number] [facility] Blood 02/23/2025 12:3 5 PM CDT 02/23/2025 12:35 PM CDT us Ellie Saenz MD LAB POCT ORDERABLES - DE VICE Final Result Performing Organization Address City/[facility] Co de Phone Number [facility] [place] [address] * (ABNORMAL) aPTT (02/23/2025 6:36 AM CDT) [...] BLOOD ORDERABLES Final Result Performing Organization Address [facility]/ZIP Co de Phone Number [facility] [place] [address] * (ABNORMAL) eGFR (02/22/2025 11:07 PM CDT) [...] BLOOD ORDERABLES Final Result Performing Organization Address [facility] de Phone Number [facility] [place] [address] * (ABNORMAL) aPTT (02/22/2025 11:07 PM CDT) [...] ORDERABLES Fin al Result Performing Organization Address [facility] Co de Phone Number [facility] Department [place] [address] * (ABNORMAL) Phosphorus (02/22/2025 11:07 PM CDT) Phosphorus, pl 7.2(H) 2.3 - 4.5 mg/dL Blood 02/22/2025 11:0 7 PM CDT 02/22/2025 11:50 PM CDT Jaimie Giordano MD LAB BLOOD ORDERABLES Final Result [facility] [place] [address] * Magnesium (02/22/2025 11:07 PM CDT) Pathologist [facility] Magnesium 2.5 1.4 - 2.5 mg/dL Blood 02/22/2025 11:0 7 PM CDT 02/22/2025 11:50 PM CDT Jaimie Giordano MD LAB BLOOD ORDERABLES Final Result Performing Organization Address [facility] Co de Phone Number [facility] Department [place] [address] * (ABNORMAL) Basic metabolic panel (02/22/2025 11:07 PM CDT) Pathologist [facility] Sodium 134(L) 135 - 145 mmol/L Potassium, pl 4.5 3.3 - 4.9 mmol/L [facility] Chloride 95(L) 97 - 110 mmol/L [facility] CO2 28 22 - 32 mmol/L [facility] Anion gap 11 2 - 15 mmol/L [facility] BUN 56(H) 6 - 25 mg/dL [facility] Creatinine 11.97(H) 0.60 - 1.10 mg/dL [facility] Glucose 104 70 - 199 mg/dL [facility] Comment: Interpretive Data Fasting glucose >/= 126 [...] 2022. Calcium 7.8(L) 8.5 - 10.3 mg/dL [facility] Blood 02/22/2025 11:0 7 PM CDT 02/22/2025 11:50 PM CDT Jaimie Giordano MD LAB BLOOD ORDERABLES Final Result Performing Organization Address [facility] Co de Phone Number CAMERON [facility] [place] [address] * (ABNORMAL) aPTT (02/22/2025 2:25 PM CDT) [...] BLOOD ORDERABLES Final Result Performing Organization Address [facility] [place] [address] * TRANSTHORACIC ECHO (TTE) COMPLETE W DOPPLER/CF W CONTRAST (02/22/2025 1:39 PM CDT) Pathologist [facility] EF Mod BP 51 % CONS SCIMAGE Anatomical Region Laterality Modality Ultrasound 02/22/2025 12:3 8 PM CDT Narrative 02/22/2025 2:49 PM CDT [facility] [place] [address] Transthoracic Echocardiographic Report Patient Name: ESTUARDO COPELAND M : 1970 (54y 3m) Gender: F Study Date: 02/22/2025 12:38:48 PM Ht(Inch): 64 Wt(Lb): 123.9 BSA: 1.59 Loading Checker: Marisol Arciniega [facility] Location: [id number] Order Provider: ELLIE SAENZ Heart Rate: 75 [...] flow reversal in the hepatic veins. Mild ID. Est. PASP 40-45 mm Hg. 7. Physiologic [...] Procedure Note Rc Koehler MD - 02/22/2025 [facility] [place] [address] Transthoracic Echocardiographic Report Patient Name: ESTUARDO COPELAND M : 1970 (54y 3m) Gender: F Study Date: 02/22/2025 12:38:48 PM Ht(Inch): 64 Wt(Lb): 123.9 BSA: 1.59 Loading Checker: Marisol Arciniega RDCS [facility] Location: [id number] OrderProvider: ELLIE SAENZ Heart Rate: 75 BMI: [...] systolic flow reversal in the hepatic veins.Mild ID. Est. PASP 40-45 mm Hg. 7. Physiologic [...] [ 2.70 - 3.70 ] MV Decel [id number] msec [ 104.00 - 258.00 ] Ao [...] ECG 12 lead (02/22/2025 9:14 AM CDT) [facility] Ventricular Rate EKG/Min 80 BPM [facility] Atrial Rate 80 BPM [facility] ID-Interval (MSEC) 96 ms [facility] QRS-Interval (MSEC) 90 ms [facility] QT-Interval (MSEC) 412 ms [facility] QTc 475 ms [facility] P [place] 90 degrees [facility] R [place] -30 degrees [facility] T [place] 133 degrees [facility] Diagnosis Sinus rhythm with sinus arrhythmia with short ID Left axis deviation Left ventricular hypertrophy ( Romhilt-Pierce ) Cannot rule out Septal infarct (cited on 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-FEB-2025) ST & T wave abnormality, consider lateral ischemia Abnormal ECG When compared with ECG of 22-FEB-2025 01:51, (unconfirmed) Sinus rhythm has replaced Atrial fibrillation Confirmed by HARJINDER HANDY M.D ([id number]) on 03/05/2025 11:42:44 AM [facility] 02/22/2025 9:14 AM CDT 03/05/2025 11:42 AM CDT us Jaimie Giordano MD ECG ORDERABLES Victoria becerra Result [facility] * (ABNORMAL) Troponin I high-sensitivity 4-hour (02/22/2025 6:24 AM CDT) Pathologist [facility] Trop I hs 1,868(C) <=17 ng/L Comment: Previous critical value noted within 48 hours ago. Interpretive Data For further hscTnI resources including the diagnostic algorithm and an aid in interpretation, copy and paste this link: [email or web address]/show/[email or web address] Current Interpretive Data last revised 2020. Trop I hs pct delta -19(C) % [facility] Comment:Previous critical va lue noted within 48 hours ago. Trop I hs interp Significa nt(C) [facility] Comment:Previous critical va lue noted within 48 hours ago. Blood 02/22/2025 6:24 AM CDT 02/22/2025 6:48 AM CDT Milton Rubio MD LAB BLOOD ORDERABLES Final Resul t Performing Organization Address [facility] de Phone Number [facility] [place] [address] * (ABNORMAL) Troponin I high-sensitivity 2-hour (02/22/2025 4:51 AM CDT) Trop I hs 2,146(C) <=17 ng/L Comment: Previous critical value noted within 48 hours ago. Interpretive Data For further [facility] resources including the diagnostic algorithm and an aid in interpretation, copy and paste this link: [email or web address].[email or web address]/show/[email or web address] Current Interpretive Data last revised 2020. Trop I hs pct delta -7 % [facility] Trop I hs interp Equivocal [facility] Blood 02/22/2025 4:51 AM CDT 02/22/2025 5:26 AM CDT Milton Rubio MD LAB BLOOD ORDERABLES Final Resul t Performing Organization Address [facility] de Phone Number [facility] Department [place] [address] * (ABNORMAL) aPTT (02/22/2025 4:51 AM CDT) [...] LAB BLOOD ORDERABLES Final Resul t CAMERON [facility] [place] [address] * Infection Prevention Anthony auris PCR, surveillance Axilla/Groin (02/22/2025 2:05 AM CDT) Anthony auris DNA Not Detected Not Detected [facility] Comment: Interpretive Data Testing performed by [facility] Molecular Infectious Disease Laboratory using the Pablo estelle [employer] Anthony auris assay. This assay detects DNA from Anthony auris using Real-Time PCR. This assay is laboratory developed and is not cleared by the [facility] Food and Drug Administration. The performance characteristics have been verified by the [facility] Infectious Disease Laboratory. Axilla/Groin 02/22/2025 2:05 AM CDT 02/22/2025 3:14 AM CDT Narrative CAMERON [facility] - 02/22/2025 2:38 PM CDT Order placed by [facility] due to ring surveillance. us Instant Order Generic Provider LAB MICROBIOLOGY - GENERAL ORDERABLES Final Result Performing Organization Address City/[facility] Co de Phone Number CAMERON [facility] [place] [address] [facility] * (ABNORMAL) Troponin I high-sensitivity series (baseline, [...] ORDERABLES Final Resul t Performing Organization Address City/[facility] Co de Phone Number CAMERON [facility] Department [place] [address] * (ABNORMAL) eGFR (02/22/2025 2:05 AM CDT) [...] ORDERABLES Final Resul t Performing Organization Address City/[facility]/ZIP Co de Phone Number CAMERON [facility] Department [place] [address] * Magnesium (02/22/2025 2:05 AM CDT) Magnesium 2.5 1.4 - 2.5 mg/dL Blood 02/22/2025 2:05 AM CDT 02/22/2025 2:58 AM CDT Milton Rubio MD LAB BLOOD ORDERABLES Final Resul t CAMERON [facility] [place] [address] * (ABNORMAL) Comprehensive metabolic panel (02/22/2025 2:05 AM CDT) Sodium 138 135 - 145 mmol/L Potassium, pl 4.3 3.3 - 4.9 mmol/L [facility] Chloride 95(L) 97 - 110 mmol/L [facility] CO2 26 22 - 32 mmol/L [facility] Anion gap 17(H) 2 - 15 mmol/L [facility] BUN 55(H) 6 - 25 mg/dL [facility] Creatinine 12.63(H) 0.60 - 1.10 mg/dL [facility] Glucose 99 70 - 199 mg/dL [facility] Comment: Interpretive Data Fasting glucose >/= 126 [...] 2022. Calcium 8.1(L) 8.5 - 10.3 mg/dL [facility] Bilirubin, total 0.2 0.1 - 1.2 mg/dL [facility] Protein, pl 6.0(L) 6.5 - 8.5 g/dL [facility] Albumin 2.6(L) 3.5 - 5.0 g/dL [facility] Alk phos 59 40 - 130 Units/L [facility] ALT 14 7 - 45 Units/L [facility] AST 20 10 - 45 Units/L [facility] Blood 02/22/2025 2:05 AM CDT 02/22/2025 2:58 AM CDT Milton Rubio MD LAB BLOOD ORDERABLES Final Resul t CAMERON [facility] Department [place] [address] * ECG 12 lead (02/22/2025 1:45 AM CDT) Pathologist [facility] Ventricular Rate EKG/Min 137 BPM [facility] QRS-Interval (MSEC) 94 ms [facility] QT-Interval (MSEC) 316 ms [facility] QTc 477 ms [facility] R [place] -41 degrees [facility] T [place] 137 degrees [facility] Diagnosis Age and gender specific ECG analysis Sinus tachycardia Anteroseptal ST-elevation Poor R-wave progression in the precordial leads Left axis deviation Minimal voltage criteria for LVH, may be normal variant ( [place] product ) Anteroseptal infarct , possibly acute T wave abnormality, consider lateral ischemia Abnormal ECG No previous ECGs available Confirmed by HARJINDER HANDY M.D ([id number]) on 02/23/2025 3:10:53 PM [facility] 02/22/2025 1:45 AM CDT 02/23/2025 3:10 PM CDT us Jaimie Giordano MD ECG ORDERABLES Victoria l Result [facility] * (ABNORMAL) eGFR (02/21/2025 8:31 PM CDT) Pathologist [facility] eGFR 3(L) >=60 mL/min/1. 73 m2 Comment: [...] BLOOD ORDERABLES Final Result Performing Organization Address City/[facility]/ZIP Co de Phone Number [facility] [place] [address] * Critical Result Callback Chemistry (02/21/2025 8:31 PM CDT) Date Notified [id number] Time Notified 2153 CAMERON DOMINGUEZ TestName Calcium CAMERON DOMINGUEZ Called/Read Back Jose DOMINGUEZ Credentials RN CAMERON DOMINGUEZ Called By PD CAMERON DOMINGUEZ Blood 02/21/2025 8:31 PM CDT 02/21/2025 9:23 PM CDT us Jaimie Giordano MD LAB BLOOD ORDERABLES Final Result Performing Organization Address City/[facility]/ZIP Co de Phone Number [facility] Department [place] [address] * Critical Result Callback Chemistry (02/21/2025 8:31 PM CDT) Date Notified [id number] Time Notified 2128 CAMERON DOMINGUEZ TestName Ca Ionized CAMERON DOMINGUEZ Called/Read Back Parminder DOMINGUEZ Credentials RN CAMERON DOMINGUEZ Called By PD CAMERON DOMINGUEZ Blood 02/21/2025 8:31 PM CDT 02/21/2025 9:00 PM CDT Ellie Saenz MD LAB BLOOD ORDERABLES Fin al Result Performing Organization Address City/[facility]/ZIP Co de Phone Number [facility] Department [place] [address] * (ABNORMAL) Calcium, ionized (02/21/2025 8:31 PM CDT) Calcium, Ionized 3.17(C) 4.50 - 5.10 mg/dL Blood 02/21/2025 8:31 PM CDT 02/21/2025 9:00 PM CDT Ellie Saenz MD LAB BLOOD ORDERABLES Fin al Result Performing Organization Address [facility] Co de Phone Number [facility] Department [place] [address] * (ABNORMAL) aPTT (02/21/2025 8:31 PM CDT) aPTT 52(H) 28 - 38 sec Comment: Interpretive Data Heparin therapeutic range: 66.0 - 100.0 seconds. Range based on correlation with therapeutic heparin activity range of 0.3 - 0.7 Units/mL. Current interpretive data was last revised on 2023. Blood 02/21/2025 8:31 PM CDT 02/21/2025 9:05 PM CDT Narrative CAMERON [facility] - 02/21/2025 9:15 PM CDT STAT PTT [...] ORDERABL ES Final Result Performing Organization Address [facility] Co de Phone Number [facility] [place] [address] * (ABNORMAL) Phosphorus (02/21/2025 8:31 PM CDT) [facility] Phosphorus, pl 8.4(H) 2.3 - 4.5 mg/dL Blood 02/21/2025 8:31 PM CDT 02/21/2025 9:00 PM CDT Jaimie Giordano MD LAB BLOOD ORDERABLES Final Result Performing Organization Address [facility] de Phone Number [facility] [place] [address] * Magnesium (02/21/2025 8:31 PM CDT) [facility] Magnesium 2.4 1.4 - 2.5 mg/dL Blood 02/21/2025 8:31 PM CDT 02/21/2025 9:00 PM CDT Jaimie Giordano MD LAB BLOOD ORDERABLES Final Result Performing Organization Address [facility] Co de Phone Number [facility] [place] [address] * (ABNORMAL) Basic metabolic panel (02/21/2025 8:31 PM CDT) [facility] Sodium 139 135 - 145 mmol/L Potassium, pl 4.6 3.3 - 4.9 mmol/L [facility] Chloride 94(L) 97 - 110 mmol/L [facility] CO2 27 22 - 32 mmol/L [facility] Anion gap 18(H) 2 - 15 mmol/L [facility] BUN 53(H) 6 - 25 mg/dL [facility] Creatinine 12.82(H) 0.60 - 1.10 mg/dL [facility] Glucose 82 70 - 199 mg/dL [facility] Comment: Interpretive Data Fasting glucose >/= 126 [...] 2022. Calcium 6.4(C) 8.5 - 10.3 mg/dL [facility] Blood 02/21/2025 8:31 PM CDT 02/21/2025 9:00 PM CDT us Jaimie Giordano MD LAB BLOOD ORDERABLES Final Result Performing Organization Address City/[facility] de Phone Number [facility] [place] [address] * (ABNORMAL) aPTT (02/21/2025 11:39 AM CDT) [...] ORDERABLES Final Resul t Performing Organization Address City/[facility]/ZIP Co de Phone Number [facility] [place] [address] * (ABNORMAL) Troponin I high-sensitivity (02/21/2025 8:42 AM CDT) Trop I hs 2,752(C) <=17 ng/L Comment: Previous critical value noted within 48 hours ago. Interpretive Data For further hscTnI resources including the diagnostic algorithm and an aid in interpretation, copy and paste this link: [email or web address]/[email or web address] Current Interpretive Data last revised 2020. Blood 02/21/2025 8:42 AM CDT 02/21/2025 9:24 AM CDT Ellie Saenz MD LAB BLOOD ORDERABLES Fin al Result Performing Organization Address [facility] Co de Phone Number [facility] [place] [address] * Thyroid Function [place] (02/21/2025 8:42 AM CDT) Pathologist [facility] TSH 1.88 0.30 - 4.20 mcIUnit/mL Blood 02/21/2025 8:42 AM CDT 02/21/2025 9:24 AM CDT Ellie Saenz MD LAB BLOOD ORDERABLES Fin al Result Performing Organization Address [facility]/ZIP Co de Phone Number [facility] [place] [address] * (ABNORMAL) Troponin I high-sensitivity 6-hour (02/21/2025 4:51 AM CDT) Trop I hs 3,175(C) <=17 ng/L Comment: Previous critical value noted within 48 hours ago. Interpretive Data For further hscTnI resources including the diagnostic algorithm and an aid in interpretation, copy and paste this link: [email or web address]/show/[email or web address] Current Interpretive Data last revised 2020. Trop I hs pct delta -25(C) % [facility] Comment:Previous critical va lue noted within 48 hours ago. Trop I hs interp Significa nt(C) [facility] Comment:Previous critical va lue noted within 48 hours ago. Blood 02/21/2025 4:51 AM CDT 02/21/2025 5:32 AM CDT us Jaimie Giordano MD LAB BLOOD ORDERABLES Final Result Performing Organization Address [facility] de Phone Number [facility] [place] [address] * (ABNORMAL) aPTT (02/21/2025 4:51 AM CDT) [...] ORDERABLES Final Resul t Performing Organization Address [facility] de Phone Number [facility] [place] [address] * (ABNORMAL) Troponin I high-sensitivity 4-hour (02/21/2025 2:18 AM CDT) Trop I hs 2,937(C) <=17 ng/L Comment: Previous critical value noted within 48 hours ago. Interpretive Data For further hscTnI resources including the diagnostic algorithm and an aid in interpretation, copy and paste this link: [email or web address].[email or web address]/show/[email or web address]-1 Current Interpretive Data last revised 2020. Trop I hs pct delta -31(C) % [facility] Comment:Previous critical va lue noted within 48 hours ago. Trop I hs interp Significa nt(C) [facility] Comment:Previous critical va lue noted within 48 hours ago. Blood 02/21/2025 2:18 AM CDT 02/21/2025 2:49 AM CDT Jaimie Giordano MD LAB BLOOD ORDERABLES Final Result Performing Organization Address City/[facility]/ZIP Co de Phone Number CAMERON [facility] [place] [address] * (ABNORMAL) Troponin I high-sensitivity 2-hour (02/20/2025 11:27 PM CDT) [facility] Trop I hs 3,312(C) <=17 ng/L Comment: Previous critical value noted within 48 hours ago. Interpretive Data For further [facility] resources including the diagnostic algorithm and an aid in interpretation, copy and paste this link: [email or web address].[email or web address]/show/[email or web address]-1 Current Interpretive Data last revised 2020. Trop I hs delta See Comment ng/L [facility]ON [facility] Comment:Inappropriate collec tion time to report a delta. Trop I hs pct delta See Comment % [facility] Comment:Inappropriate collec tion time to report a delta. Trop I hs interp See Comment [facility] Comment:Inappropriate collec tion time to report a delta. Blood 02/20/2025 11:2 7 PM CDT 02/21/2025 12:31 AM CDT Jaimie Giordano MD LAB BLOOD ORDERABLES Final Result Performing Organization Address City/[facility] Co de Phone Number [facility] [place] [address] * (ABNORMAL) Troponin I high-sensitivity series (baseline, [...] BLOOD ORDERABLES Final Result Performing Organization Address City/[facility]/ZIP Co de Phone Number [facility] [place] [address] * Lactate (02/20/2025 10:03 PM CDT) Pathologist [facility] Lactate 1.3 0.7 - 2.0 mmol/L Blood 02/20/2025 10:0 3 PM CDT 02/20/2025 10:50 PM CDT us Milton Rubio MD LAB BLOOD ORDERABLES Final Resul t Performing Organization Address [facility] Co de Phone Number [facility] Department [place] [address] * Critical result callback Cardio chemistry (02/20/2025 10:03 PM CDT) Date Notified [id number] Time Notified 2332 [facility] Test name Trop I hs base CAMERON [facility] Called/Read Back Srinath BARNES [facility] Credentials RN CAMERON DOMINGUEZ Called By NELSON BARNES [facility] Blood 02/20/2025 10:0 3 PM CDT 02/20/2025 10:50 PM CDT us Jaimie Giordano MD LAB BLOOD ORDERABLES Final Result Performing Organization Address City/[facility]/ZIP Co de Phone Number [facility] Department [place] [address] * (ABNORMAL) eGFR (02/20/2025 10:03 PM CDT) [...] MD LAB BLOOD ORDERABLES Final Result CAMERON [facility] Department [place] [address] * (ABNORMAL) aPTT (02/20/2025 10:03 PM CDT) aPTT 45(H) 28 - 38 sec Comment: Interpretive Data Heparin therapeutic range: 66.0 - 100.0 seconds. Range based on correlation with therapeutic heparin activity range of 0.3 - 0.7 Units/mL. Current interpretive data was last revised on 2023. Blood 02/20/2025 10:0 3 PM CDT 02/20/2025 10:54 PM CDT Narrative [facility] - 02/20/2025 11:03 PM CDT Baseline prior to heparin initiation Jaimie Giordano MD LAB BLOOD ORDERABLES Final Result Performing Organization Address [facility] de Phone Number [facility] [place] [address] * Protime-INR (02/20/2025 10:03 PM CDT) Pathologist [facility] PT 11.7 9.7 - 13.0 sec INR 1.08 0.90 - 1.20 [facility] Comment: Interpretive data Oral anticoagulant therapeutic ranges: Venous thromboembolism prophylaxis or treatment: 2.0-3.0 CARDIOLOGY Standard range: 2.0-3.0 High-intensity range: 2.5-3.5 Refer to indication-specific guidelines for appropriate target ranges for prosthetic heart valve replacement. Current interpretive data was last revised on 2019. Blood 02/20/2025 10:0 3 PM CDT 02/20/2025 10:54 PM CDT Narrative [facility] - 02/20/2025 11:03 PM CDT Baseline prior to heparin initiation Jaimie Giordano MD LAB BLOOD ORDERABLES Final Result Performing Organization Address [facility] de Phone Number [facility] Department [place] [address] * (ABNORMAL) CBC without differential (02/20/2025 10:03 PM CDT) WBC 5.88 3.80 - 9.90 K/cumm Hgb 13.0 11.9 - 15.5 g/dL [facility] Hct 41.0 35.6 - 45.5 % [facility] Plt 178 150 - 400 K/cumm [facility] MPV 10.6 9.1 - 12.3 fL [facility] RBC 4.60 3.90 - 5.20 M/cumm [facility] MCV 89.1 81.3 - 96.4 fL [facility] MCH 28.3 27.1 - 33.3 pg [facility] MCHC 31.7(L) 32.3 - 35.7 g/dL [facility] RDW CV 15.3(H) 11.1 - 14.9 % [facility] RDW SD 49.6(H) 35.7 - 48.1 fL [facility] NRBC abs 0.00 0.00 - 0.01 K/cumm [facility] Blood 02/20/2025 10:0 3 PM CDT 02/20/2025 10:50 PM CDT Narrative [facility] - 02/20/2025 11:02 PM CDT Baseline prior to heparin initiation Jaimie Giordano MD LAB BLOOD ORDERABLES Final Result Performing Organization Address City/[facility]/ZIP Co de Phone Number [facility] Department [place] [address] * (ABNORMAL) Phosphorus (02/20/2025 10:03 PM CDT) Phosphorus, pl 9.2(H) 2.3 - 4.5 mg/dL Blood 02/20/2025 10:0 3 PM CDT 02/20/2025 10:50 PM CDT Jaimie Giordano MD LAB BLOOD ORDERABLES Final Result [facility] Department [place] [address] * (ABNORMAL) Magnesium (02/20/2025 10:03 PM CDT) Magnesium 2.8(H) 1.4 - 2.5 mg/dL Blood 02/20/2025 10:0 3 PM CDT 02/20/2025 10:50 PM CDT Jaimie Giordano MD LAB BLOOD ORDERABLES Final Result [facility] Department [place] [address] * (ABNORMAL) Lipid panel (02/20/2025 10:03 PM [...] on 2018. Triglycerides 166(H) <=149 mg/dL [facility] Comment: Interpretive Data Ages < or = [...] on 2018. HDL 34(L) >=40 mg/dL [facility] Comment: Interpretive Data Ages < or = [...] 2018. LDL, calculated 133(H) <=129 mg/dL [facility] Comment: Interpretive Data Ages < or = [...] revised on 2024. Non-HDL Cholesterol 163 mg/dL [facility] Comment: Interpretive Data Ages < or = [...] last revised on 2018. Chol/HDL ratio 6 [facility] Blood 02/20/2025 10:0 3 PM CDT 02/20/2025 10:50 PM CDT us Jaimie Giordano MD LAB BLOOD ORDERABLES Final Result NONALARA [facility] Department [place] [address] * (ABNORMAL) Comprehensive metabolic panel (02/20/2025 10:03 PM CDT) Sodium 138 135 - 145 mmol/L Potassium, pl 4.6 3.3 - 4.9 mmol/L [facility] Chloride 92(L) 97 - 110 mmol/L [facility] CO2 23 22 - 32 mmol/L [facility] Anion gap 23(H) 2 - 15 mmol/L [facility] BUN 55(H) 6 - 25 mg/dL [facility] Creatinine 13.60(H) 0.60 - 1.10 mg/dL [facility] Glucose 101 70 - 199 mg/dL [facility] Comment: Interpretive Data Fasting glucose >/= 126 [...] 2022. Calcium 6.9(L) 8.5 - 10.3 mg/dL [facility] Bilirubin, total 0.2 0.1 - 1.2 mg/dL [facility] Protein, pl 7.1 6.5 - 8.5 g/dL [facility] Albumin 3.2(L) 3.5 - 5.0 g/dL [facility] Alk phos 74 40 - 130 Units/L [facility] ALT 16 7 - 45 Units/L [facility] AST 30 10 - 45 Units/L [facility] Blood 02/20/2025 10:0 3 PM CDT 02/20/2025 10:50 PM CDT us Jaimie Giordano MD LAB BLOOD ORDERABLES Final Result [facility] Department [place] [address] * ECG 12 lead (02/20/2025 9:19 PM CDT) Pathologist [facility] Ventricular Rate EKG/Min 72 BPM [facility] Atrial Rate 72 BPM [facility] ID-Interval (MSEC) 120 ms [facility] QRS-Interval (MSEC) 96 ms [facility] QT-Interval (MSEC) 440 ms [facility] QTc 481 ms [facility] P [place] 92 degrees [facility] R [place] -31 degrees [facility] T [place] 140 degrees [facility] Diagnosis Sinus rhythm with Premature atrial complexes Left axis deviation Incomplete right bundle branch block Minimal voltage criteria for LVH, may be normal variant ( [place] product ) Anteroseptal infarct , age undetermined T wave abnormality, consider lateral ischemia Abnormal ECG atrial-paced complexes When compared with ECG of 20-FEB-2025 15:12, (unconfirmed) Premature atrial complexes are now Present Anteroseptal infarct is now Present Confirmed by HARJINDER HANDY M.D ([id number]) on 02/23/2025 12:46:43 PM [facility] 02/20/2025 9:19 PM CDT 02/23/2025 12:46 PM CDT Jaimie Giordano MD ECG ORDERABLES Victoria becerra Result [facility] * (ABNORMAL) Troponin T high-sensitivity 6-hour (02/20/2025 5:36 PM CDT) [facility] Trop T hs 911(C) <=14 ng/L Comment: Critical Result called to and read back by Parminder [email or web address], DATE: 2025-02-20 18:15:52 BY: [email or web address] Interpretive Data For further hscTnT resources including the diagnostic algorithm and an aid in interpretation, copy and paste this link: https://nrl.testcatalog.org/show/hsTrop Current Interpretive Data last revised 2020. Trop T hs interp Significa nt(C) [facility]ON LEIJA Comment:Critical Result call ed to and read back by Parminder [email or web address], DATE: 2025-02-20 18:15:52 BY: [email or web address] Blood 02/20/2025 5:36 PM CDT 02/20/2025 5:45 PM CDT Khanh Cm Zavalahu DO LAB BLOOD ORDERABLES Final Result Performing Organization Address City/[facility]/ZIP Co de Phone Number CAMERON [address] [place] [address] * (ABNORMAL) eGFR (02/20/2025 5:36 PM CDT) [facility] eGFR [...] BLOOD ORDERABLES Final Result Performing Organization Address City/[facility]/ZIP Co de Phone Number CAMERON [address] [place] [address] * Heparin anti factor Xa activity (02/20/2025 [...] PM CDT 02/20/2025 5:45 PM CDT Narrative [facility] - 02/20/2025 6:39 PM CDT Baseline prior to heparin initiation Khanh Shankar DO LAB BLOOD ORDERABLES Final Result [facility] [address] [facility] Department of Laboratories [place], [place] [id number] * Hepatitis B surface antibody (immune status) Blood (02/20/2025 5:36 PM CDT) Pathologist [facility] HBsAb (immune status) Nonreactive Comment: Interpretive Data [...] GENERAL ORDERABLES Final Result Performing Organization Address [facility] Co de Phone Number [address] [place] [address] * Hepatitis B Surface Antigen Blood (02/20/2025 5:36 PM CDT) HepBsAg Nonreactive Nonreactive Blood 02/20/2025 5:36 PM CDT 02/20/2025 5:45 PM CDT Girish Maya MD LAB MICROBIOLOGY - GENERAL ORDERABLES Final Result Performing Organization Address [facility] de Phone Number [address] [place] [address] * (ABNORMAL) Protime-INR (02/20/2025 5:36 PM CDT) PT 15.2(H) 12.0 - 14.6 sec Comment:Ref Range High INR 1.2 0.9 - 1.2 [facility] Comment: Ref Range High Interpretive data Oral [...] BLOOD ORDERABLES Final Result Performing Organization Address [facility] Co de Phone Number [address] [place] [address] * (ABNORMAL) CBC without differential (02/20/2025 5:36 PM CDT) [facility] WBC 5.51 3.80 - 9.90 K/cumm Hgb 12.1 11.9 - 15.5 g/dL [facility] Hct 38.4 35.6 - 45.5 % [facility] Plt 153 150 - 400 K/cumm [facility] MPV 10.5 9.1 - 12.3 fL [facility] RBC 4.30 3.90 - 5.20 M/cumm [facility] MCV 89.3 81.3 - 96.4 fL [facility] MCH 28.1 27.1 - 33.3 pg [facility] MCHC 31.5(L) 32.3 - 35.7 g/dL [facility] RDW CV 15.1(H) 11.1 - 14.9 % [facility] RDW SD 49.1(H) 35.7 - 48.1 fL [facility] NRBC abs 0.00 0.00 - 0.01 K/cumm [facility] Blood 02/20/2025 5:36 PM CDT 02/20/2025 5:45 PM CDT Narrative [facility] - 02/20/2025 5:48 PM CDT Baseline prior to heparin initiation Khanh Shankar DO LAB BLOOD ORDERABLES Final Result [facility] [address] [facility] Department [place] [address] * (ABNORMAL) Basic metabolic panel (02/20/2025 5:36 PM CDT) [facility] Sodium 136 135 - 145 mmol/L Potassium, pl 5.8(H) 3.3 - 4.9 mmol/L [facility] Comment:Delta - Results Revi ewed Chloride 94(L) 97 - 110 mmol/L [facility] CO2 23 22 - 32 mmol/L [facility] Anion gap 19(H) 2 - 15 mmol/L [facility] BUN 55(H) 6 - 25 mg/dL [facility] Creatinine 13.90(H) 0.60 - 1.10 mg/dL [facility] Glucose 87 70 - 199 mg/dL [facility] Comment: Interpretive Data Fasting glucose >/= [...] 2022. Calcium 6.7(L) 8.5 - 10.3 mg/dL [facility] Blood 02/20/2025 5:36 PM CDT 02/20/2025 5:45 PM CDT Khanh Shankar DO LAB BLOOD ORDERABLES Final Result Performing Organization Address City/State/[facility] Co de Phone Number [facility] [address] [facility] Department [place] [address] * ECG 12 lead (02/20/2025 3:12 PM CDT) [facility] Ventricular Rate EKG/Min 72 BPM [facility] Atrial Rate 72 BPM [facility] ID-Interval (MSEC) 106 ms [facility] QRS-Interval (MSEC) 92 ms [facility] QT-Interval (MSEC) 450 ms [facility] QTc 492 ms [facility] P [place] 79 degrees [facility] R [place] -40 degrees [facility] T [place] 133 degrees [facility] Diagnosis Sinus rhythm with sinus arrhythmia with short ID Left axis deviation T wave abnormality, consider lateral ischemia Prolonged QT Abnormal ECG When compared with ECG of 20-FEB-2025 15:07, Sinus rhythm has replaced Atrial fibrillation Confirmed by MD MIKE, HENRY ([id number]) on 02/21/2025 5:43:47 PM [facility] 02/20/2025 3:12 PM CDT 02/21/2025 5:43 PM CDT Khanh Shankar DO ECG ORDERABLES Final Resul t Performing Organization Address City/[facility] Co de Phone Number [facility] * ECG 12 lead (02/20/2025 3:07 PM CDT) Ventricular Rate EKG/Min 68 BPM [facility] Atrial Rate 67 BPM [facility] QRS-Interval (MSEC) 84 ms [facility] QT-Interval (MSEC) 454 ms [facility] QTc 482 ms [facility] R [place] -39 degrees [facility] T [place] 119 degrees [facility] Diagnosis Suspect unspecified pacemaker failure Atrial fibrillation Left axis deviation Anterior infarct (cited on 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-MAY-2024) T wave abnormality, consider lateral ischemia Abnormal ECG When compared with ECG of 20-FEB-2025 10:47, Atrial fibrillation has replaced Sinus rhythm Confirmed by MD MIKE, HENRY ([id number]) on 02/21/2025 5:43:35 PM [facility] 02/20/2025 3:07 PM CDT 02/21/2025 5:43 PM CDT Khanh Shankar DO ECG ORDERABLES Final Resul t Performing Organization Address [facility] de Phone Number [facility] * (ABNORMAL) Troponin T high-sensitivity 4-hour (02/20/2025 2:55 PM CDT) Trop T hs 834(C) <=14 ng/L Comment: Critical Result called to and read back by Niko [email or web address], DATE: 2025-02-20 15:27:21 BY: [email or web address] Interpretive Data For further hscTnT resources including the diagnostic algorithm and an aid in interpretation, copy and paste this link: https://nrl.testcatalog.org/show/hsTrop Current Interpretive Data last revised 2020. Trop T hs pct delta 36(C) % [facility] Comment:Critical Result call ed to and read back by Niko [email or web address], DATE: 2025-02-20 15:27:21 BY: [email or web address] Trop T hs interp Significa nt(C) [facility] Comment:Critical Result call ed to and read back by Niko [email or web address], DATE: 2025-02-20 15:27:21 BY: [email or web address] Blood 02/20/2025 2:55 PM CDT 02/20/2025 2:57 PM CDT Khanh Shankar LAB BLOOD ORDERABLES Final Result [facility] [address] [facility] Department [place] [address] * Blood culture Blood (02/20/2025 2:33 PM CDT) Report Final Report: No growth Comment:Testing performed by : [facility], [address] [facility] [place] [address] Blood 02/20/2025 2:33 PM CDT 02/20/2025 6:26 [...] performance characteristics have been verified by the [facility] Microbiology Laboratory. For questions about this culture, contact the Microbiology Laboratory at [phone]. Interpretive data was last revised on 24. Khanh Shankar LAB MICROBIOLOGY - GENERAL ORDERABLES Final Result Performing Organization Address City/[facility]/ZIP Co de Phone Number [facility] [place] [address] * Blood culture Blood (02/20/2025 2:23 PM CDT) Report Final Report: No growth Comment:Testing performed by : [facility], [address] [place]., [address] Blood 02/20/2025 2:23 PM CDT 02/20/2025 6:26 [...] performance characteristics have been verified by the [facility] Microbiology Laboratory. For questions about this culture, contact the Microbiology Laboratory at [phone]. Interpretive data was last revised on 24. Khanh Shankar [facility] MICROBIOLOGY - GENERAL ORDERABLES Final Result Performing Organization Address City/[facility]/ZIP Co de Phone Number [facility] [place] [address] * (ABNORMAL) Troponin T high-sensitivity 2-hour (02/20/2025 2:02 PM CDT) Trop T hs 785(C) <=14 ng/L Comment: Critical Result called to and read back by Cecilia [email or web address], DATE: 2025-02-20 14:27:31 BY: [email or web address] Interpretive Data For further hscTnT resources including [...] DO LAB BLOOD ORDERABLES Final Result [facility] [address] [facility] Department [place] [address] * CT Chest WO Contrast [...] by Rc Cody M.D. T: Report ID: [id number] Reading Location: [id number] Procedure Note Rc Cody, DO - 02/20/2025 [...] by Rc Cody M.D. T: Report ID: [id number] Reading Location: [id number] Khanh Shankar DO IMG CT PROCEDURES Final [...] by Rc Cody M.D. T: Report ID: [id number] Reading Location: [id number] Procedure Note Rc Cody DO - 02/20/2025 [...] by Rc Cody M.D. T: Report ID: [id number] Reading Location: [place] [address] Khanh Zavalahu DO IMG XR PROCEDURES Final Res ult * (ABNORMAL) Troponin T high-sensitivity series (baseline, 2hr, 4hr, 6hr) (02/20/2025 10:52 AM CDT) Trop T hs 611(C) <=14 ng/L Comment: Critical Result called to and read back by [id number], DATE: 2025-02-20 11:39:27 BY: [id number] Interpretive Data For further hscTnT resources including the diagnostic algorithm and an aid in interpretation, copy and paste this link: https://nrl.testcatalog.org/show/hsTrop Current Interpretive Data last revised 2020. Blood 02/20/2025 10:5 2 AM CDT 02/20/2025 10:56 AM CDT Khanh Shankar DO LAB BLOOD ORDERABLES Final Result [facility] [address] [place] [address] * Sepsis Lactate w/ Reflex (02/20/2025 10:52 AM CDT) Sepsis Lactate 1.8 0.7 - 2.0 mmol/L Blood 02/20/2025 10:5 2 AM CDT 02/20/2025 10:57 AM CDT Khanh Shankar LAB BLOOD ORDERABLES Final Result Performing Organization Address [facility] Phone Number [facility] [address] [address] * (ABNORMAL) eGFR (02/20/2025 10:52 AM CDT) [...] LAB BLOOD ORDERABLES Final Result [facility] [address] [facility] Department [place] [address] * (ABNORMAL) Differential, auto (02/20/2025 10:52 AM CDT) Neutrophil abs 4.13 1.50 - 6.50 K/cumm Imm gran abs 0.02 0.00 - 0.10 K/cumm [facility] Lymphocyte abs 0.61(L) 0.80 - 3.30 K/cumm [facility] Monocyte abs 0.28 0.20 - 0.80 K/cumm [facility] Eosinophil abs 0.15 0.00 - 0.50 K/cumm [facility] Basophil abs 0.02 0.00 - 0.10 K/cumm [facility] Neutrophil pct 79.2 % [facility] Comment: Interpretive Data Percent cell count reference ranges are not reported, since discordance with absolute values may lead to misinterpretation of CBC data. Current Interpretive Data was last revised on 2018. Imm gran pct 0.4 % [facility] Comment: Interpretive Data Percent cell count reference ranges are not reported, since discordance with absolute values may lead to misinterpretation of CBC data. Current Interpretive Data was last revised on 2018. Lymphocyte pct 11.7 % [facility] Comment: Interpretive Data Percent cell count reference ranges are not reported, since discordance with absolute values may lead to misinterpretation of CBC data. Current Interpretive Data was last revised on 2018. Monocyte pct 5.4 % [facility] Comment: Interpretive Data Percent cell count reference ranges are not reported, since discordance with absolute values may lead to misinterpretation of CBC data. Current Interpretive Data was last revised on 2018. Eosinophil pct 2.9 % [facility] Comment: Interpretive Data Percent cell count reference ranges are not reported, since discordance with absolute values may lead to misinterpretation of CBC data. Current Interpretive Data was last revised on 2018. Basophil pct 0.4 % [facility] Comment: Interpretive Data Percent cell count reference ranges are not reported, since discordance with absolute values may lead to misinterpretation of CBC data. Current Interpretive Data was last revised on 2018. Blood 02/20/2025 10:5 2 AM CDT 02/20/2025 10:56 AM CDT Khanh Pabon [facility] LAB BLOOD ORDERABLES Final Result Performing Organization Address City/[facility] Co de Phone Number [facility] [address] [address] * (ABNORMAL) CBC with auto differential (02/20/2025 10:52 AM CDT) WBC 5.21 3.80 - 9.90 K/cumm Hgb 13.2 11.9 - 15.5 g/dL [facility] Hct 42.8 35.6 - 45.5 % [facility] Plt 158 150 - 400 K/cumm [facility] MPV 10.8 9.1 - 12.3 fL [facility] RBC 4.75 3.90 - 5.20 M/cumm [facility] MCV 90.1 81.3 - 96.4 fL [facility] MCH 27.8 27.1 - 33.3 pg [facility] MCHC 30.8(L) 32.3 - 35.7 g/dL [facility] RDW CV 15.2(H) 11.1 - 14.9 % [facility] RDW SD 49.4(H) 35.7 - 48.1 fL [facility] NRBC abs 0.00 0.00 - 0.01 K/cumm [facility] Blood 02/20/2025 10:5 2 AM CDT 02/20/2025 10:56 AM CDT [facility] BLO[facility] ORDERABLES Final Result Performing Organization Address City/[facility]/ZIP Co de Phone Number [facility] [address] [address] * (ABNORMAL) Comprehensive metabolic panel (02/20/2025 10:52 AM CDT) Pathologist [facility] Sodium 137 135 - 145 mmol/L Potassium, pl 4.4 3.3 - 4.9 mmol/L [facility] Chloride 92(L) 97 - 110 mmol/L [facility] CO2 24 22 - 32 mmol/L [facility] Anion gap 21(H) 2 - 15 mmol/L [facility] BUN 48(H) 6 - 25 mg/dL [facility] Creatinine 13.30(H) 0.60 - 1.10 mg/dL [facility] Glucose 72 70 - 199 mg/dL [facility] Comment: Interpretive Data Fasting glucose >/= [...] 2022. Calcium 7.2(L) 8.5 - 10.3 mg/dL [facility] Bilirubin, total 0.3 0.1 - 1.2 mg/dL [facility] Protein, pl 6.6 6.5 - 8.5 g/dL [facility] Albumin 3.1(L) 3.5 - 5.0 g/dL [facility] Alk phos 66 40 - 130 Units/L [facility] ALT 14 7 - 45 Units/L [facility] AST 20 10 - 45 Units/L [facility] Blood 02/20/2025 10:5 2 AM CDT 02/20/2025 10:56 AM CDT Khanh Shankar DO LAB BLOOD ORDERABLES Final Result [facility] [address] [facility] [place] [address] * ECG 12 lead (02/20/2025 10:47 AM CDT) Pathologist [facility] Ventricular Rate EKG/Min 78 BPM [facility] Atrial Rate 78 BPM [facility] ID-Interval (MSEC) 112 ms [facility] [facility]ALTHCARE QRS-Interval (MSEC) 92 ms [facility] QT-Interval (MSEC) 424 ms [facility] QTc 483 ms [facility] P [place] 86 degrees [facility] R [place] -33 degrees [facility] T [place] 139 degrees [facility] Diagnosis Sinus rhythm with Premature supraventricular complexes Left axis deviation Septal infarct (cited on 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-MAY-2024) T wave abnormality, consider lateral ischemia Abnormal ECG When compared with ECG of 28-JAN-2025 10:10, Sinus rhythm has replaced Electronic atrial pacemaker Confirmed by SULTAN NDIAYE M.D. ([id number]) on 02/22/2025 4:12:38 PM [facility] 02/20/2025 10:4 7 AM CDT 02/22/2025 4:12 PM CDT Khanh Cm Zavalahu DO ECG ORDERABLES Final Resul t [facility] * XR Orthopantogram Panorex (01/28/2025 [...] BPM [facility] Atrial Rate 79 BPM [facility] ID-Interval (MSEC) 164 ms [facility] QRS-Interval (MSEC) 88 ms [facility] QT-Interval (MSEC) 396 ms [facility] QTc 454 ms [facility] P [place] 112 degrees [facility] R [place] -24 degrees [facility] T [place] 129 degrees [facility] Diagnosis Atrial-paced rhythm in a pattern of bigeminy Anteroseptal infarct (cited on 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-MAY-2024) ST & T wave abnormality, consider lateral ischemia Abnormal ECG When compared with ECG of 25-DEC-2024 06:56, Premature atrial complexes are no longer Present Confirmed by HARJINDER HANDY M.D ([id number]) on 01/29/2025 11:51:51 AM [facility] 01/28/2025 10:1 0 AM CDT 01/29/2025 11:51 AM CDT Tamar Tang MD ECG ORDERABLES Final Result [facility] * Mislabeled Test (01/28/2025 9:47 AM CDT) Location Other location Reason No Signature On Blood Bank Specimen [facility] Mislabel resolution Testing canceled [facility] Blood 01/28/2025 9:47 AM CDT 01/28/2025 11:45 AM CDT Abigail Vides MD LAB BLOOD ORDERABLES Final Result [facility] Department [place] [address] * (ABNORMAL) eGFR (01/28/2025 9:42 AM CDT) [...] MD LAB BLOOD ORDERABLES Final Res ult [facility] Department [place] [address] * HIV 1/2 Antibody plus p24 Antigen [...] ORD ERABLES Final Result Performing Organization Address City/[facility] Co de Phone Number [facility] [place] [address] * Hepatitis C antibody Blood (01/28/2025 9:42 AM CDT) Hep C Ab Nonreactive Nonreactive Comment:Antibodies to HCV no t detected. Does NOT exclude the possibility of recent exposure to HCV. Current interpretive data was last revised on 22 Blood 01/28/2025 9:42 AM CDT 01/28/2025 10:56 AM CDT Tamar Tang MD LAB MICROBIOLOGY - GENERAL ORD ERABLES Final Result Performing Organization Address [facility] [place] [address] * Hepatitis B core antibody, total Blood (01/28/2025 9:42 AM CDT) Hep B core IgG/IgM Nonreactive Nonreactive Blood 01/28/2025 9:42 AM CDT 01/28/2025 10:56 AM CDT Tamar Tang MD LAB MICROBIOLOGY - GENERAL ORD ERABLES Final Result Performing Organization Address City/[facility] Co de Phone Number [facility] [place] [address] * Hepatitis B surface antibody (immune status) [...] [facility] Department [place] [address] * Hepatitis B Surface Antigen Blood (01/28/2025 9:42 AM CDT) [facility] HepBsAg Nonreactive Nonreactive Blood 01/28/2025 9:42 AM CDT 01/28/2025 10:56 AM CDT Tamar Tang MD LAB MICROBIOLOGY - GENERAL ORD ERABLES Final Result Performing Organization Address [facility] Co de Phone Number [facility] [place] [address] * (ABNORMAL) CBC without differential (01/28/2025 9:42 AM CDT) [facility] WBC 5.32 3.80 - 9.90 K/cumm Hgb 13.1 11.9 - 15.5 g/dL [facility] Hct 41.5 35.6 - 45.5 % [facility] Plt 156 150 - 400 K/cumm [facility] MPV 10.5 9.1 - 12.3 fL [facility] RBC 4.64 3.90 - 5.20 M/cumm [facility] MCV 89.4 81.3 - 96.4 fL [facility] MCH 28.2 27.1 - 33.3 pg [facility] MCHC 31.6(L) 32.3 - 35.7 g/dL [facility] RDW CV 16.1(H) 11.1 - 14.9 % [facility] RDW SD 51.8(H) 35.7 - 48.1 fL [facility] NRBC abs 0.00 0.00 - 0.01 K/cumm [facility] Blood 01/28/2025 9:42 AM CDT 01/28/2025 10:58 AM CDT Abigail Vides MD LAB BLOOD ORDERABLES Final Result Performing Organization Address [facility] Co de Phone Number [facility] [place] [address] * (ABNORMAL) Phosphorus (01/28/2025 9:42 AM CDT) Phosphorus, pl 7.4(H) 2.3 - 4.5 mg/dL Blood 01/28/2025 9:42 AM CDT 01/28/2025 10:56 AM CDT Tamar Tang MD LAB BLOOD ORDERABLES Final Res ult Performing Organization Address [facility] de Phone Number [facility] [place] [address] * PTH (01/28/2025 9:42 AM CDT) PTH 43 15 - 65 pg/mL Blood 01/28/2025 9:42 AM CDT 01/28/2025 10:56 AM CDT Tamar Tang MD LAB BLOOD ORDERABLES Final Res ult Performing Organization Address [facility] de Phone Number [facility] [place] [address] * (ABNORMAL) Hemoglobin A1c (01/28/2025 9:42 AM CDT) Hgb A1C 5.8(H) 4.0 - 5.6 % Estimated Average Glucose 120 mg/dL [facility] Comment: The ADA recommends reporting an estimated Average Glucose (eAG) with all Hemoglobin A1c results using the equation derived from a study of 507 normal and diabetic adults. Minority populations were underrepresented and children were not included. (Diabetes Care 2020; 43(S1): S66-S76). The eAG is not equivalent to a fasting glucose. Blood 01/28/2025 9:42 AM CDT 01/28/2025 10:56 AM CDT us Tmaar Tang MD LAB BLOOD ORDERABLES Final Res ult [facility] Department [place] [address] * (ABNORMAL) Comprehensive metabolic panel (01/28/2025 9:42 AM CDT) Pathologist [facility] Sodium 137 135 - 145 mmol/L Potassium, pl 5.7(H) 3.3 - 4.9 mmol/L [facility] Chloride 95(L) 97 - 110 mmol/L [facility] CO2 27 22 - 32 mmol/L [facility] Anion gap 15 2 - 15 mmol/L [facility] BUN 61(H) 6 - 25 mg/dL [facility] Creatinine 14.50(H) 0.60 - 1.10 mg/dL [facility] Glucose 77 70 - 199 mg/dL [facility] Comment: Interpretive Data Fasting glucose >/= 126 [...] 2022. Calcium 7.3(L) 8.5 - 10.3 mg/dL [facility] Bilirubin, total 0.3 0.1 - 1.2 mg/dL [facility] Protein, pl 6.8 6.5 - 8.5 g/dL [facility] Albumin 3.2(L) 3.5 - 5.0 g/dL [facility] Alk phos 64 40 - 130 Units/L [facility] ALT 20 7 - 45 Units/L [facility] AST 24 10 - 45 Units/L [facility] Blood 01/28/2025 9:42 AM CDT 01/28/2025 10:56 AM CDT Tamar Tang MD LAB BLOOD ORDERABLES Final Res ult [facility] Department [place] [address] * HLA Antibody Screen - SAB (Class [...] a method developed and validated by the [facility] HLA laboratory based on an FDA-approved IVD kit (LABScreen Single-Antigen, [employer], [place], [place]). All patient serum samples are pretreated with EDTA before the screen to prevent complement interference. Additional serum treatments, such as adsorption and DTT treatment, may be performed as indicated. Interpretive comments: Low risk: MFI [id number]. Moderate risk: MFI 1326-9023. Increased risk: MFI >/= 5000. The presence [...] antigens to avoid. Testing performed at the [facility], [address] [place] [address], 5th floor, [place], [address]. CLIA # [id number]. Rosa Millan, Ph.D., Transformer Builder, HLA Laboratory Wilmer Prescott M.D., Ph.D., Production Clerks Supervisor, [facility] Laboratory Alma Payton, Ph.D., CLIA Production Clerks Supervisor, [facility] Current methodology and interpretive comments last revised on 11/15/2022. us Salina Hector MD LAB BLOOD ORDERABLES Final Resul t H[employer] from Last 3 Months Insurance [facility] CHOICE PLUS MEDICARE [facility] CHOICE PLUS [facility] CHOICE PLUS MEDICARE MEDICARE [facility] CHOICE PLUS Advance Directives For more information, please contact: [phone] * Full Code (Latest Code Status on [...] 4:20 PM 05/25/2024 8:59 PM Care Teams Chief Maintenance Supervisor Relationship Specialty Start Date End Date Pal Downey DO PCP - General Internal Medicine 01/25/21 Quinton Rowan MD Referring Physician Cardiology 01/09/19 Tami Flores, TONO [address] [facility] [address] [place] [id number] Registered Nurse Crna 01/25/21 Cricket Escalante MD [address] [facility] [address] [place] [address] Referring Physician Nephrology 03/24/21 Gael Sprague MD PhD [address] [facility] [address] [place] [id number] Fellow Endocrinology Diabetes & Metabolism 03/24/21 Brad Turner MD [address] [address] Consulting Physician Obstetrics and Gynecology 03/24/21 Margarita Montoya MD [address] [address] Consulting Physician Trauma Surgery 12/27/21 Luca Lott MD [address] [facility] [address] [address] Consulting Physician Cardiology 08/03/22 Pb Galloway MD [address] [address] Cardiothoracic Surgery 05/25/24 Felipe Gerber MD [address] [address] Consulting Physician Cardiology 05/25/24
--- OUTSIDE RECORDS SUMMARY | 2025-04-22 12:34 | XMS_ITS ---
Author Organization [facility] Address [address] [place] [address] Care Team Providers Care [place] [place] [employer] Manager Name Role Phone Quinton Rowan MD Unavailable [phone] Pal Downey DO Primary Care Provider Tami Flores RN Unavailable Cricket Escalante MD Unavailable [phone] Gael Sprague MD PhD Unavailable Brad Turner MD Unavailable [phone] Margarita Montoya MD Unavailable [phone] Luca Lott MD Unavailable Pb Galloway MD Unavailable Felipe Gerber MD Unavailable [phone] Transplant Episode Kidney Candidate [facility] ([place], [place]) [facility] Center waitlisted on 09/05/2021 Marked as Inactive on 03/13/2024 Reason: 03 - Candidate Work-up Incomplete Kidney CoordinatorTami Flores RN Email: N/A Scores Score Value Updated Exceptions/Reas ons CPRA Not available EPTS (Calc) 29 04/22/2025 [place] Organ Diagnosis Organ Primary Contributory Kidney Polycystic Kidneys Care Team Name Role Phone Fax Email Tami Flores RN Kidney Coordinator [phone] N/A Mariann Bobo Test Lab Technician [phone] N/A N/A Events Pre-Transplant Referred: 10/06/2020 Evaluation began: 03/24/2021 Committee: 09/04/2021 Center waitlisted: 09/05/2021 Dialysis History Dialysis History Start End Type Comments Center 01/09/2022 Peritoneal 7 days a week D mine Escalante [facility] Dialysis Center Information Center Phone Fax Address [facility] [phone] [address] [id number]
--- OUTSIDE RECORDS SUMMARY | 2025-04-22 12:34 | XMS_ITS ---
Author Organization [facility] Address [address] [place] [address] Care Team Providers Care Silviculturist Name Role Phone Quinton Rowan MD Unavailable [phone] Pal Downey DO Primary Care Provider [phone]- [phone] Tami Flores RN Unavailable Cricket Escalante MD Unavailable [phone] Gael Sprague MD PhD Unavailable Brad Turner MD Unavailable [phone] Margarita Montoya MD Unavailable [phone] Luca Lott MD Unavailable Pb Galloway MD Unavailable Felipe Gerber MD Unavailable [phone] Dialysis Access Sites Type Status Location [...] STOPS BREATHING Penicillins Anaphylaxis,Rash,Un known High 04/29/2015 Hzlumcl-Dir-Rvz Reductase Inhibitors Muscle pain Medium 02/20/2025 Trialed [...] (02/01/2022): Added automatically from request for surgery [id number] Assessment & Plan (02/05/2025 3:15 PM CDT): Undergoing pre transplant evaluation. We will review with Dr. Lott regarding possible candidacy for transplant list given recent interventions. Continued to DAPT Disorder of peritoneal dialysis catheter 022 Overview (12/22/2021): Added automatically from request for surgery [id number] Chronic kidney disease, stage V 10/31/2021 Overview (08/21/2023): Added automatically from request for surgery [id number] Sick sinus syndrome 11/02/2020 Diastolic heart failure [...] Assessment & Plan (02/24/2019 9:29 AM CDT): [facility] with 95% LAD lesion, had some [...] Assessment & Plan (02/20/2019 5:17 AM CDT): [facility] with 95% LAD lesion, had some [...] Assessment & Plan (02/16/2019 11:38 PM CDT): [facility] with 95% LAD lesion, had some RV dysfunction during AV repair and found to have RCA occlusion following LAD bypass - s/p IABP placement - CABG to LAD and LCA - on Epi and Milrinone of inotropy Assessment & Plan (02/11/2019 6:16 PM CDT): [facility] with 95% LAD lesion, had some RV dysfunction during AV repair and found to have RCA occlusion following LAD bypass - s/p IABP placement - CABG to LAD and LCA - on Epi and Milrinone of inotropy Assessment & Plan (02/08/2019 5:38 PM CDT): -Patient w/ chest pain/SOB along w/ significant troponin elevation -Plan for [facility] w/ possible PCI tomorrow pending results [...] to 4.35 - valve team consulted, 02/[address] 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 Escalante Continue lasix 40 mg [...] kidney disease, baseline Cr 2.4-2.6. F/b OSH territory sales executive. Apparently discussions for potential need for renal txp being discussed. - Cr at baseline on adm - avoid nephrotoxins, renally dose meds - continue calcitriol 0.5 mcg/day - Cr 2.75, received pre-cath hydration, stable 2.7 Headache 05/02/2016 Moderate COPD (chronic obstr uctive pulmonary disease) ([facility]) 11/02/2015 Assessment & Plan (08/02/2022 5:33 PM [...] AM CDT): Alexis TAVR 05/21 Followed by [facility], Dr. Lott. CT TAVR [...] not a candidate for intervention [facility] Assessment & Plan (05/17/2019 [...] AV. Referred to valve team by primary issue clerk Dr. Rowan. Seen 02/02 by valve team [...] on file Legal Sex Female 4:06 AM LEAD DENTAL ASSISTANT Gender Identity Female 01/16/2024 11:18 AM CDT [...] 10:0 0 AM CDT Narrative HISTOTRAC - LEAD DENTAL ASSISTANT Sample received in lab. Single Antigen Antibody Screen ordered. us Salina Hector MD LAB BLOOD ORDERABLES Final Resul t Performing Organization Address City/[facility]/ZIP Co de Phone Number HISTOTRAC * HLA Antibody Screen by PRA or SAB per Schedule (Class I and Class II) (03/01/2025 10:00 AM CDT) Blood 03/01/2025 10:0 0 AM CDT Narrative HISTOTRAC - LEAD DENTAL ASSISTANT Sample received in lab and stored. No testing performed at this time. us Salina Hector MD LAB BLOOD ORDERABLES Final Resul t Performing Organization Address City/[facility] Co de Phone Number HISTOTRAC [...] Tc SIERRA LAB BLOOD ORDERABLES Final Result [facility] Department [place] [address] * (ABNORMAL) Differential, auto (02/24/2025 9:50 AM CDT) Neutrophil abs 4.72 1.50 - 6.50 K/cumm Imm gran abs 0.02 0.00 - 0.10 K/cumm [facility] Lymphocyte abs 0.73(L) 0.80 - 3.30 K/cumm [facility] Monocyte abs 0.42 0.20 - 0.80 K/cumm [facility] Eosinophil abs 0.21 0.00 - 0.50 K/cumm [facility] Basophil abs 0.04 0.00 - 0.10 K/cumm [facility] Neutrophil pct 76.9 % [facility] Comment: Interpretive Data Percent cell count reference ranges are not reported, since discordance with absolute values may lead to misinterpretation of CBC data. Current Interpretive Data was last revised on 2018. Imm gran pct 0.3 % [facility] Comment: Interpretive Data Percent cell count reference ranges are not reported, since discordance with absolute values may lead to misinterpretation of CBC data. Current Interpretive Data was last revised on 2018. Lymphocyte pct 11.9 % [facility] Comment: Interpretive Data Percent cell count reference ranges are not reported, since discordance with absolute values may lead to misinterpretation of CBC data. Current Interpretive Data was last revised on 2018. Monocyte pct 6.8 % [facility] Comment: Interpretive Data Percent cell count reference ranges are not reported, since discordance with absolute values may lead to misinterpretation of CBC data. Current Interpretive Data was last revised on 2018. Eosinophil pct 3.4 % [facility] Comment: Interpretive Data Percent cell count reference ranges are not reported, since discordance with absolute values may lead to misinterpretation of CBC data. Current Interpretive Data was last revised on 2018. Basophil pct 0.7 % [facility] Comment: Interpretive Data Percent cell count reference ranges are not reported, since discordance with absolute values may lead to misinterpretation of CBC data. Current Interpretive Data was last revised on 2018. Blood 02/24/2025 9:50 AM CDT 02/24/2025 10:17 AM CDT Dasha Montez DO LAB BLOOD ORDERABLES Final Result [facility] Department [place] [address] * (ABNORMAL) CBC with auto differential (02/24/2025 9:50 AM CDT) WBC 6.14 3.80 - 9.90 K/cumm Hgb 12.5 11.9 - 15.5 g/dL [facility] Hct 39.5 35.6 - 45.5 % [facility] Plt 177 150 - 400 K/cumm [facility] MPV 10.8 9.1 - 12.3 fL [facility] RBC 4.37 3.90 - 5.20 M/cumm [facility] MCV 90.4 81.3 - 96.4 fL [facility] MCH 28.6 27.1 - 33.3 pg [facility] MCHC 31.6(L) 32.3 - 35.7 g/dL [facility] RDW CV 15.9(H) 11.1 - 14.9 % [facility] RDW SD 51.0(H) 35.7 - 48.1 fL [facility] NRBC abs 0.00 0.00 - 0.01 K/cumm [facility] Blood 02/24/2025 9:50 AM CDT 02/24/2025 10:17 AM CDT Dasha Fernandezbakar LAB BLOOD ORDERABLES Final Result [facility] [place] [address] * (ABNORMAL) Basic metabolic panel (02/24/2025 9:50 AM CDT) Sodium 136 135 - 145 mmol/L Potassium, pl 5.0(H) 3.3 - 4.9 mmol/L [facility] Chloride 93(L) 97 - 110 mmol/L [facility] CO2 27 22 - 32 mmol/L [facility] Anion gap 16(H) 2 - 15 mmol/L [facility] BUN 43(H) 6 - 25 mg/dL [facility] Creatinine 11.83(H) 0.60 - 1.10 mg/dL [facility] Glucose 82 70 - 199 mg/dL [facility] Comment: Interpretive Data Fasting glucose [...] 2022. Calcium 7.9(L) 8.5 - 10.3 mg/dL [facility] Blood 02/24/2025 9:50 AM CDT 02/24/2025 10:17 AM CDT Dasha Tana Montez LAB BLOOD ORDERABLES Final Result [facility] Department [place] [address] * (ABNORMAL) eGFR (02/23/2025 11:43 PM CDT) Pathologist [facility] eGFR 3(L) >=60 mL/min/1. 73 m2 [...] Giordano MD LAB BLOOD ORDERABLES Final Result [facility] Department [place] [address] * VerifyNow clopidogrel (02/23/2025 11:43 PM CDT) [facility] VerifyNow clopidogrel 208 PRU Comment: Interpretive Data [...] ORDERABLES Fin al Result Performing Organization Address City/[facility] Co de Phone Number [facility] Department [place] [address] * (ABNORMAL) Phosphorus (02/23/2025 11:43 PM CDT) Phosphorus, pl 7.6(H) 2.3 - 4.5 mg/dL Blood 02/23/2025 11:4 3 PM CDT 02/24/2025 12:22 AM CDT us Jaimie Giordano MD LAB BLOOD ORDERABLES Final Result Performing Organization Address [facility] Co de Phone Number [facility] Department [place] [address] * Magnesium (02/23/2025 11:43 PM CDT) Magnesium 2.4 1.4 - 2.5 mg/dL Blood 02/23/2025 11:4 3 PM CDT 02/24/2025 12:22 AM CDT us Jaimie Giordano MD LAB BLOOD ORDERABLES Final Result Performing Organization Address City/[facility] Co de Phone Number [facility] [place] [address] * (ABNORMAL) Basic metabolic panel (02/23/2025 11:43 PM CDT) Sodium 133(L) 135 - 145 mmol/L Potassium, pl 4.9 3.3 - 4.9 mmol/L [facility] Chloride 95(L) 97 - 110 mmol/L [facility] CO2 27 22 - 32 mmol/L [facility] Anion gap 11 2 - 15 mmol/L [facility] BUN 52(H) 6 - 25 mg/dL [facility] Creatinine 11.94(H) 0.60 - 1.10 mg/dL [facility] Glucose 89 70 - 199 mg/dL [facility] Comment: Interpretive Data Fasting glucose [...] 2022. Calcium 8.0(L) 8.5 - 10.3 mg/dL [facility] Blood 02/23/2025 11:4 3 PM CDT 02/24/2025 12:22 AM CDT us Jaimie Giordano MD LAB BLOOD ORDERABLES Final Result [facility] Department [place] [address] * LEFT HEART CATHETERIZATION WITH CORONARY ANGIOGRAPHY [...] 54 y.o. female : 1970 MR number: [id number] Date of Service: 02/23/2025 Corporate Wellness Coordinator: Luca Lott MD Fellow: Sanket Quiroz MD [...] vein graft to her LAD and her [place] left main. She now presents for urgent cardiac catheterization PROCEDURE: The risks, benefits and alternatives of the procedures and moderate sedation were explained to the patient and informed consent was obtained. The patient was brought to the labor representative and placed on the table Bilateral groins [...] the LAD angiogram performed using a 6 Irish 3D RC Percutaneous coronary intervention performed on theSVG to the Proximal LAD. This was an ACC/AHA Type C. Initial Lesion Length 12mm and final lesion Length 20mm. Initial KAROLINA Flow 3 Final KAROLINA Flow 3. Equipment used: 6 3DRC, MadeiraMadeira Twiggs IVUS Catheter, Wood Piler 50 wire, 0.9 mm laser atherectomy catheter [...] it was extremely difficult. We used a Wood Piler 50 wire with extreme difficulty wire through [...] 319(H) 123 - 168 sec POC Performer [id number] [facility] POC Device Number [id number] [facility] Blood 02/23/2025 1:41 PM CDT 02/23/2025 1:41 PM CDT Result [facility] Ellie Saenz MD LAB POCT ORDERABLES - DE VICE Final Result [facility] Department [place] [address] * (ABNORMAL) POCT Activated clotting time, low range (02/23/2025 12:35 PM CDT) ACT 351(H) 123 - 168 sec POC Performer [id number] [facility] POC Device Number [id number] [facility] Blood 02/23/2025 12:3 5 PM CDT 02/23/2025 12:35 PM CDT Ellie Saenz MD LAB POCT ORDERABLES - DE VICE Final Result Performing Organization Address [facility] Co de Phone Number [facility] [place] [address] * (ABNORMAL) aPTT (02/23/2025 6:36 AM CDT) [...] BLOOD ORDERABLES Final Result Performing Organization Address [facility] de Phone Number [facility] Department [place] [address] * (ABNORMAL) eGFR (02/22/2025 11:07 PM CDT) [...] BLOOD ORDERABLES Final Result Performing Organization Address [facility] Co de Phone Number [facility] [place] [address] * (ABNORMAL) aPTT (02/22/2025 11:07 PM CDT) [...] ORDERABLES Fin al Result Performing Organization Address [facility] [place] [address] * (ABNORMAL) Phosphorus (02/22/2025 11:07 PM CDT) Phosphorus, pl 7.2(H) 2.3 - 4.5 mg/dL Blood 02/22/2025 11:0 7 PM CDT 02/22/2025 11:50 PM CDT Jaimie Giordano MD LAB BLOOD ORDERABLES Final Result Performing Organization Address City/[facility] Co de Phone Number [facility] [place] [address] * Magnesium (02/22/2025 11:07 PM CDT) Magnesium 2.5 1.4 - 2.5 mg/dL Blood 02/22/2025 11:0 7 PM CDT 02/22/2025 11:50 PM CDT us Jaimie Giordano MD LAB BLOOD ORDERABLES Final Result [facility] Department [place] [address] * (ABNORMAL) Basic metabolic panel (02/22/2025 11:07 PM CDT) [facility] Sodium 134(L) 135 - 145 mmol/L Potassium, pl 4.5 3.3 - 4.9 mmol/L [facility] Chloride 95(L) 97 - 110 mmol/L [facility] CO2 28 22 - 32 mmol/L [facility] Anion gap 11 2 - 15 mmol/L [facility] BUN 56(H) 6 - 25 mg/dL [facility] Creatinine 11.97(H) 0.60 - 1.10 mg/dL [facility] Glucose 104 70 - 199 mg/dL [facility] Comment: Interpretive Data Fasting glucose [...] 2022. Calcium 7.8(L) 8.5 - 10.3 mg/dL [facility] Blood 02/22/2025 11:0 7 PM CDT 02/22/2025 11:50 PM CDT us Jaimie Giordano MD LAB BLOOD ORDERABLES Final Result [facility] [place] [address] * (ABNORMAL) aPTT (02/22/2025 2:25 PM CDT) aPTT 54(H) 28 - 38 sec Comment: Interpretive Data Heparin therapeutic range: 66.0 - 100.0 seconds. Range based on correlation with therapeutic heparin activity range of 0.3 - 0.7 Units/mL. Current interpretive data was last revised on 2023. Blood 02/22/2025 2:25 PM CDT 02/22/2025 2:59 PM CDT Dasha Montez DO LAB BLOOD ORDERABLES Final Result [facility] [place] [address] * TRANSTHORACIC ECHO (TTE) COMPLETE W DOPPLER/CF W CONTRAST (02/22/2025 1:39 PM CDT) Pathologist [facility] EF Mod BP 51 % CONS SCIMAGE Anatomical Region Laterality Modality Ultrasound 02/22/2025 12:3 8 PM CDT Narrative 02/22/2025 2:49 PM CDT [facility] [place] [address] Transthoracic Echocardiographic Report Patient Name: ESTUARDO COPELAND M : 1970 (54y 3m) Gender: F Study Date: 02/22/2025 12:38:48 PM Ht(Inch): 64 Wt(Lb): 123.9 BSA: 1.59 Filer Repairer: Marisol Arciniega RDCS, [facility] Location: [id number] Order Provider: ELLIE SAENZ Heart Rate: 75 [...] flow reversal in the hepatic veins. Mild VT. Est. PASP 40-45 mm Hg. 7. Physiologic [...] PG 7.84 mmHg Electronically Signed By: Rc Keohler MD 02/22/2025 2:48:34 PM CDT Wall Motion Analysis - Resting Procedure Note Rc Koehler MD - 02/22/2025 [facility] [place] [address] Transthoracic Echocardiographic Report Patient Name: ESTUARDO COPELAND M : 1970 (54y 3m) Gender: F Study Date: 02/22/2025 12:38:48 PM Ht(Inch): 64 Wt(Lb): 123.9 BSA: 1.59 Filer Repairer: Marisol Arciniega RD, [facility] Location: [id number] OrderProvider: ELLIE SAENZ Heart Rate: 75 BMI: [...] systolic flow reversal in the hepatic veins.Mild VT. Est. PASP 40-45 mm Hg. 7. Physiologic [...] 73.63 ml [ 46.00 - 106.00 ] ASOHK VTI1.42 cm2 LV EDV Index 46.31 ml/m2 [...] [ 2.70 - 3.70 ] MV Decel Ubwo547.43 msec [ 104.00 - 258.00 ] Ao [...] 12 lead (02/22/2025 9:14 AM CDT) Pathologist [facility] Ventricular Rate EKG/Min 80 BPM [facility] Atrial Rate 80 BPM [facility] VT-Interval (MSEC) 96 ms [facility] QRS-Interval (MSEC) 90 ms [facility] QT-Interval (MSEC) 412 ms [facility] QTc 475 ms [facility] P Calpine 90 degrees [facility] R Calpine -30 degrees [facility] T Calpine 133 degrees [facility] Diagnosis Sinus rhythm with sinus arrhythmia with short VT Left axis deviation Left ventricular hypertrophy ( Romhilt-Pierce ) Cannot rule out Septal infarct (cited on 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-FEB-2025) ST & T wave abnormality, consider lateral ischemia Abnormal ECG When compared with ECG of 22-FEB-2025 01:51, (unconfirmed) Sinus rhythm has replaced Atrial fibrillation Confirmed by HARJINDER HANDY M.D ([id number]) on 03/05/2025 11:42:44 AM [facility] 02/22/2025 9:14 AM CDT 03/05/2025 11:42 AM CDT us Jaimie Giordano MD ECG ORDERABLES Victoria l Result [facility] * (ABNORMAL) Troponin I high-sensitivity 4-hour (02/22/2025 6:24 AM CDT) Trop I hs 1,868(C) <=17 ng/L Comment: Previous critical value noted within 48 hours ago. Interpretive Data For further hscTnI resources including the diagnostic algorithm and an aid in interpretation, copy and paste this link: https://bjhlab.testcatalog.org/show/hsTrop-1 Current Interpretive Data last revised 2020. Trop I hs pct delta -19(C) % [facility] Comment:Previous critical va lue noted within 48 hours ago. Trop I hs interp Significa nt(C) [facility] Comment:Previous critical va lue noted within 48 hours ago. Blood 02/22/2025 6:24 AM CDT 02/22/2025 6:48 AM CDT us Milton Rubio MD LAB BLOOD ORDERABLES Final Resul t Performing Organization Address City/[facility] Co de Phone Number [facility] Department [place] [address] * (ABNORMAL) Troponin I high-sensitivity 2-hour (02/22/2025 4:51 AM CDT) Trop I hs 2,146(C) <=17 ng/L Comment: Previous critical value noted within 48 hours ago. Interpretive Data For further hscTnI resources including the diagnostic algorithm and an aid in interpretation, copy and paste this link: https://bjhlab.testcatalog.org/show/hsTrop-1 Current Interpretive Data last revised 2020. Trop I hs pct delta -7 % [facility] Trop I hs interp Equivocal [facility] Blood 02/22/2025 4:51 AM CDT 02/22/2025 5:26 AM CDT Milton Rubio MD LAB BLOOD ORDERABLES Final Resul t Performing Organization Address [facility] Co de Phone Number [facility] Department [place] [address] * (ABNORMAL) aPTT (02/22/2025 4:51 AM CDT) [...] Final Resul t Performing Organization Address [facility] Co de Phone Number [facility] Department [place] [address] * Infection Prevention Anthony auris PCR, surveillance Axilla/Groin (02/22/2025 2:05 AM CDT) Anthony auris DNA Not Detected Not Detected [facility] Comment: Interpretive Data Testing performed by [facility] using the Pablo estelle 6800 Anthony auris assay. This assay detects DNA from Anthony auris using Real-Time PCR. This assay is laboratory developed and is not cleared by the [place] Food and Drug Administration. The performance characteristics have been verified by the [facility]. Axilla/Groin 02/22/2025 2:05 AM CDT 02/22/2025 3:14 AM CDT Narrative [facility] - 02/22/2025 2:38 PM CDT Order placed by [facility] due to ring surveillance. us Instant Order Generic Provider LAB MICROBIOLOGY - GENERAL ORDERABLES Final Result Performing Organization Address City/[facility]/ZIP Co de Phone Number [facility] Department [place] [address] [facility] * (ABNORMAL) Troponin I high-sensitivity series (baseline, 2hr, 4hr, 6hr) (02/22/2025 2:05 AM CDT) Pathologist [facility] Trop I hs 2,317(C) <=17 ng/L Comment: Previous critical value noted within 48 hours ago. Interpretive Data For further hscTnI resources including the diagnostic algorithm and an aid in interpretation, copy and paste this link: https://bjhlab.testcatalog.org/show/hsTrop-1 Current Interpretive Data last revised 2020. Blood 02/22/2025 2:05 AM CDT 02/22/2025 2:57 AM CDT us Milton Rubio MD LAB BLOOD ORDERABLES Final Resul t [facility] Department [place] [address] * (ABNORMAL) eGFR (02/22/2025 2:05 AM CDT) [...] ORDERABLES Final Resul t Performing Organization Address City/[facility] Co de Phone Number [facility] Department [place] [address] * Magnesium (02/22/2025 2:05 AM CDT) Pathologist [facility] Magnesium 2.5 1.4 - 2.5 mg/dL Blood 02/22/2025 2:05 AM CDT 02/22/2025 2:58 AM CDT us Milton Rubio MD LAB BLOOD ORDERABLES Final Resul t Performing Organization Address [facility] de Phone Number [facility] [place] [address] * (ABNORMAL) Comprehensive metabolic panel (02/22/2025 2:05 AM CDT) Pathologist [facility] Sodium 138 135 - 145 mmol/L Potassium, pl 4.3 3.3 - 4.9 mmol/L [facility] Chloride 95(L) 97 - 110 mmol/L [facility] CO2 26 22 - 32 mmol/L [facility] Anion gap 17(H) 2 - 15 mmol/L [facility] BUN 55(H) 6 - 25 mg/dL [facility] Creatinine 12.63(H) 0.60 - 1.10 mg/dL [facility] Glucose 99 70 - 199 mg/dL [facility] Comment: Interpretive Data Fasting glucose [...] 2022. Calcium 8.1(L) 8.5 - 10.3 mg/dL [facility] Bilirubin, total 0.2 0.1 - 1.2 mg/dL [facility] Protein, pl 6.0(L) 6.5 - 8.5 g/dL [facility] Albumin 2.6(L) 3.5 - 5.0 g/dL [facility] Alk phos 59 40 - 130 Units/L [facility] ALT 14 7 - 45 Units/L [facility] AST 20 10 - 45 Units/L [facility] Blood 02/22/2025 2:05 AM CDT 02/22/2025 2:58 AM CDT us Milton Rubio MD LAB BLOOD ORDERABLES Final Resul t [facility] [place] [address] * ECG 12 lead (02/22/2025 1:45 AM CDT) Ventricular Rate EKG/Min 137 BPM [facility] QRS-Interval (MSEC) 94 ms [facility] QT-Interval (MSEC) 316 ms [facility] QTc 477 ms [facility] R Calpine -41 degrees [facility] T Calpine 137 degrees [facility] Diagnosis Age and gender specific ECG analysis Sinus tachycardia Anteroseptal ST-elevation Poor R-wave progression in the precordial leads Left axis deviation Minimal voltage criteria for LVH, may be normal variant ( [place] product ) Anteroseptal infarct , possibly acute T wave abnormality, consider lateral ischemia Abnormal ECG No previous ECGs available Confirmed by HARJINDER HANDY M.D ([id number]) on 02/23/2025 3:10:53 PM [facility] 02/22/2025 1:45 AM CDT 02/23/2025 3:10 PM CDT Jaimie Giordano MD ECG ORDERABLES Victoria l Result [facility] [place] * (ABNORMAL) eGFR (02/21/2025 8:31 PM CDT) Pathologist [facility] eGFR 3(L) >=60 mL/min/1. 73 m2 [...] BLOOD ORDERABLES Final Result Performing Organization Address City/[facility]/ZIP Co de Phone Number [facility] [place] [address] * Critical Result Callback Chemistry (02/21/2025 8:31 PM CDT) Date Notified [id number] Time Notified 2153 [facility] TestName Calcium CAMERON DOMINGUEZ Called/Read Back Jose DOMINGUEZ Credentials RN CAMERON DOMINGUEZ Called By PD CAMERON DOMINGUEZ Blood 02/21/2025 8:31 PM CDT 02/21/2025 9:23 PM CDT us Jaimie Giordano MD LAB BLOOD ORDERABLES Final Result Performing Organization Address [facility] Co de Phone Number [facility] [place] [address] * Critical Result Callback Chemistry (02/21/2025 8:31 PM CDT) Date Notified [id number] Time Notified 2128 [facility] TestName Ca Ionized [facility] Called/Read Back Parminder DOMINGUEZ Credentials RN CAMERON DOMINGUEZ Called By PD CAMERON DOMINGUEZ Blood 02/21/2025 8:31 PM CDT 02/21/2025 9:00 PM CDT Ellie Saenz MD LAB BLOOD ORDERABLES Fin al Result Performing Organization Address City/[facility]/ZIP Co de Phone Number [facility] [place] [place] [address] * (ABNORMAL) Calcium, ionized (02/21/2025 8:31 PM CDT) Pathologist [facility] Calcium, Ionized 3.17(C) 4.50 - 5.10 mg/dL Blood 02/21/2025 8:31 PM CDT 02/21/2025 9:00 PM CDT Ellie Saenz MD LAB BLOOD ORDERABLES Fin al Result Performing Organization Address [facility] Co de Phone Number [facility] Department [place] [address] * (ABNORMAL) aPTT (02/21/2025 8:31 PM CDT) [facility] aPTT 52(H) 28 - 38 sec Comment: Interpretive Data Heparin therapeutic range: 66.0 - 100.0 seconds. Range based on correlation with therapeutic heparin activity range of 0.3 - 0.7 Units/mL. Current interpretive data was last revised on 2023. Blood 02/21/2025 8:31 PM CDT 02/21/2025 9:05 PM CDT Narrative [facility] - 02/21/2025 9:15 PM CDT STAT PTT [...] ORDERABL ES Final Result Performing Organization Address [facility]/ZIP Co de Phone Number [facility] [place] [address] * (ABNORMAL) Phosphorus (02/21/2025 8:31 PM CDT) [facility] Phosphorus, pl 8.4(H) 2.3 - 4.5 mg/dL Blood 02/21/2025 8:31 PM CDT 02/21/2025 9:00 PM CDT Jaimie Giordano MD LAB BLOOD ORDERABLES Final Result [facility] [place] [place] [address] * Magnesium (02/21/2025 8:31 PM CDT) [facility] Magnesium 2.4 1.4 - 2.5 mg/dL Blood 02/21/2025 8:31 PM CDT 02/21/2025 9:00 PM CDT Jaimie Giordano MD LAB BLOOD ORDERABLES Final Result Performing Organization Address City/[facility] de Phone Number [facility] [place] [address] * (ABNORMAL) Basic metabolic panel (02/21/2025 8:31 PM CDT) [facility] Sodium 139 135 - 145 mmol/L Potassium, pl 4.6 3.3 - 4.9 mmol/L [facility] Chloride 94(L) 97 - 110 mmol/L [facility] CO2 27 22 - 32 mmol/L [facility] Anion gap 18(H) 2 - 15 mmol/L [facility] BUN 53(H) 6 - 25 mg/dL [facility] Creatinine 12.82(H) 0.60 - 1.10 mg/dL [facility] Glucose 82 70 - 199 mg/dL [facility] Comment: Interpretive Data Fasting glucose [...] 2022. Calcium 6.4(C) 8.5 - 10.3 mg/dL [facility] Blood 02/21/2025 8:31 PM CDT 02/21/2025 9:00 PM CDT us Jaimie Giordano MD LAB BLOOD ORDERABLES Final Result Performing Organization Address [facility] Co de Phone Number [facility] [place] [address] * (ABNORMAL) aPTT (02/21/2025 11:39 AM CDT) [...] ORDERABLES Final Resul t Performing Organization Address City/[facility]/ZIP Co de Phone Number [facility] [address] * (ABNORMAL) Troponin I high-sensitivity (02/21/2025 8:42 AM CDT) Trop I hs 2,752(C) <=17 ng/L Comment: Previous critical value noted within 48 hours ago. Interpretive Data For further [facility] resources including the diagnostic algorithm and an aid in interpretation, copy and paste this link: [email or web address].[email or web address]/show/[email or web address] Current Interpretive Data last revised 2020. Blood 02/21/2025 8:42 AM CDT 02/21/2025 9:24 AM CDT Ellie Saenz MD LAB BLOOD ORDERABLES Fin al Result Performing Organization Address [facility] Co de Phone Number [facility] Department [place] [address] * Thyroid Function [place] (02/21/2025 8:42 AM CDT) Pathologist [facility] TSH 1.88 0.30 - 4.20 mcIUnit/mL Blood 02/21/2025 8:42 AM CDT 02/21/2025 9:24 AM CDT Ellie Saenz MD LAB BLOOD ORDERABLES Fin al Result Performing Organization Address [facility] de Phone Number [facility] [address] * (ABNORMAL) Troponin I high-sensitivity 6-hour (02/21/2025 4:51 AM CDT) Pathologist [facility] Trop I hs 3,175(C) <=17 ng/L Comment: Previous critical value noted within 48 hours ago. Interpretive Data For further hscTnI resources including the diagnostic algorithm and an aid in interpretation, copy and paste this link: [email or web address]/show/[email or web address] Current Interpretive Data last revised 2020. Trop I hs pct delta -25(C) % [facility] Comment:Previous critical va lue noted within 48 hours ago. Trop I hs interp Significa nt(C) [facility] Comment:Previous critical va lue noted within 48 hours ago. Blood 02/21/2025 4:51 AM CDT 02/21/2025 5:32 AM CDT us Jaimie Giordano MD LAB BLOOD ORDERABLES Final Result Performing Organization Address [facility] Co de Phone Number [facility] [place] [address] * (ABNORMAL) aPTT (02/21/2025 4:51 AM CDT) [...] Final Resul t Performing Organization Address [facility] de Phone Number [facility] [place] [address] * (ABNORMAL) Troponin I high-sensitivity 4-hour (02/21/2025 2:18 AM CDT) Trop I hs 2,937(C) <=17 ng/L Comment: Previous critical value noted within 48 hours ago. Interpretive Data For further hscTnI resources including the diagnostic algorithm and an aid in interpretation, copy and paste this link: https://bjhlab.testcatalog.org/show/[email or web address] Current Interpretive Data last revised 2020. Trop I hs pct delta -31(C) % [facility] Comment:Previous critical va lue noted within 48 hours ago. Trop I hs interp Significa nt(C) [facility] Comment:Previous critical va lue noted within 48 hours ago. Blood 02/21/2025 2:18 AM CDT 02/21/2025 2:49 AM CDT us Jaimie Giordano MD LAB BLOOD ORDERABLES Final Result Performing Organization Address [facility] Co de Phone Number [facility] Department [place] [address] * (ABNORMAL) Troponin I high-sensitivity 2-hour (02/20/2025 11:27 PM CDT) Trop I hs 3,312(C) <=17 ng/L Comment: Previous critical value noted within 48 hours ago. Interpretive Data For further hscTnI resources including the diagnostic algorithm and an aid in interpretation, copy and paste this link: [email or web address].[email or web address]/show/[email or web address] Current Interpretive Data last revised 2020. Trop I hs delta See Comment ng/L [facility] Comment:Inappropriate collec tion time to report a delta. Trop I hs pct delta See Comment % [facility] Comment:Inappropriate collec tion time to report a delta. Trop I hs interp See Comment [facility] Comment:Inappropriate collec tion time to report a delta. Blood 02/20/2025 11:2 7 PM CDT 02/21/2025 12:31 AM CDT us Jaimie Giordano MD LAB BLOOD ORDERABLES Final Result Performing Organization Address [facility] Co de Phone Number [facility] Department [place] [address] * (ABNORMAL) Troponin I high-sensitivity series (baseline, 2hr, 4hr, 6hr) (02/20/2025 10:03 PM CDT) Trop I hs 4,242(C) <=17 ng/L Comment: Interpretive Data For further hscTnI resources including the diagnostic algorithm and an aid in interpretation, copy and paste this link: [email or web address]/show/[email or web address] Current Interpretive Data last revised 2020. Blood 02/20/2025 10:0 3 PM CDT 02/20/2025 10:50 PM CDT us Jaimie Giordano MD LAB BLOOD ORDERABLES Final Result Performing Organization Address City/[facility]/ZIP Co de Phone Number [facility] [place] [address] * Lactate (02/20/2025 10:03 PM CDT) Lactate 1.3 0.7 - 2.0 mmol/L Blood 02/20/2025 10:0 3 PM CDT 02/20/2025 10:50 PM CDT us Milton Rubio MD LAB BLOOD ORDERABLES Final Resul t Performing Organization Address [facility] Co de Phone Number [facility] [place] [address] * Critical result callback Cardio chemistry (02/20/2025 10:03 PM CDT) Date Notified [id number] Time Notified 2332 [facility] Test name Trop I hs base [facility] Called/Read Back Srinath B[facility]ES [facility] Credentials TONO BARNES [facility] Called By NELSON BARNES [facility] Blood 02/20/2025 10:0 3 PM CDT 02/20/2025 10:50 PM CDT us Jaimie Giordano MD LAB BLOOD ORDERABLES Final Result Performing Organization Address City/[facility]/ZIP Co de Phone Number [facility] [place] [address] * (ABNORMAL) eGFR (02/20/2025 10:03 PM CDT) [...] Giordano MD LAB BLOOD ORDERABLES Final Result [facility] [place] [address] * (ABNORMAL) aPTT (02/20/2025 10:03 PM CDT) aPTT 45(H) 28 - 38 sec Comment: Interpretive Data Heparin therapeutic range: 66.0 - 100.0 seconds. Range based on correlation with therapeutic heparin activity range of 0.3 - 0.7 Units/mL. Current interpretive data was last revised on 2023. Blood 02/20/2025 10:0 3 PM CDT 02/20/2025 10:54 PM CDT Narrative [facility] - 02/20/2025 11:03 PM CDT Baseline prior to heparin initiation Jaimie Giordano MD LAB BLOOD ORDERABLES Final Result [facility] Department [place] [address] * Protime-INR (02/20/2025 10:03 PM CDT) [facility] PT 11.7 9.7 - 13.0 sec INR 1.08 0.90 - 1.20 [facility] Comment: Interpretive data Oral anticoagulant therapeutic ranges: Venous thromboembolism prophylaxis or treatment: 2.0-3.0 CARDIOLOGY Standard range: 2.0-3.0 High-intensity range: 2.5-3.5 Refer to indication-specific guidelines for appropriate target ranges for prosthetic heart valve replacement. Current interpretive data was last revised on 2019. Blood 02/20/2025 10:0 3 PM CDT 02/20/2025 10:54 PM CDT Narrative [facility] - 02/20/2025 11:03 PM CDT Baseline prior to heparin initiation Jaimie Giordano MD LAB BLOOD ORDERABLES Final Result [facility] Department [place] [address] * (ABNORMAL) CBC without differential (02/20/2025 10:03 PM CDT) [facility] WBC 5.88 3.80 - 9.90 K/cumm Hgb 13.0 11.9 - 15.5 g/dL [facility] Hct 41.0 35.6 - 45.5 % [facility] Plt 178 150 - 400 K/cumm [facility] MPV 10.6 9.1 - 12.3 fL [facility] RBC 4.60 3.90 - 5.20 M/cumm [facility] MCV 89.1 81.3 - 96.4 fL [facility] MCH 28.3 27.1 - 33.3 pg [facility] MCHC 31.7(L) 32.3 - 35.7 g/dL [facility] RDW CV 15.3(H) 11.1 - 14.9 % [facility] RDW SD 49.6(H) 35.7 - 48.1 fL [facility] NRBC abs 0.00 0.00 - 0.01 K/cumm [facility] Blood 02/20/2025 10:0 3 PM CDT 02/20/2025 10:50 PM CDT Narrative [facility] - 02/20/2025 11:02 PM CDT Baseline prior to heparin initiation us Jaimie Giordano MD LAB BLOOD ORDERABLES Final Result [facility] [place] [address] * (ABNORMAL) Phosphorus (02/20/2025 10:03 PM CDT) Phosphorus, pl 9.2(H) 2.3 - 4.5 mg/dL Blood 02/20/2025 10:0 3 PM CDT 02/20/2025 10:50 PM CDT us Jaimie Giordano MD LAB BLOOD ORDERABLES Final Result Performing Organization Address [facility] Co de Phone Number [facility] [place] [address] * (ABNORMAL) Magnesium (02/20/2025 10:03 PM CDT) Magnesium 2.8(H) 1.4 - 2.5 mg/dL Blood 02/20/2025 10:0 3 PM CDT 02/20/2025 10:50 PM CDT Jaimie Giordano MD LAB BLOOD ORDERABLES Final Result Performing Organization Address City/[facility] Co de Phone Number [facility] [place] [address] * (ABNORMAL) Lipid panel (02/20/2025 10:03 PM [...] on 2018. Triglycerides 166(H) <=149 mg/dL [facility] Comment: Interpretive Data Ages < [...] on 2018. HDL 34(L) >=40 mg/dL [facility] Comment: Interpretive Data Ages < [...] 2018. LDL, calculated 133(H) <=129 mg/dL [facility] Comment: Interpretive Data Ages < [...] on 2024. Non-HDL Cholesterol 163 mg/dL [facility] Comment: Interpretive Data Ages < [...] last revised on 2018. Chol/HDL ratio 6 [facility] Blood 02/20/2025 10:0 3 PM CDT 02/20/2025 10:50 PM CDT us Jaimie Giordano MD LAB BLOOD ORDERABLES Final Result [facility] Department [place] [address] * (ABNORMAL) Comprehensive metabolic panel (02/20/2025 10:03 PM CDT) Sodium 138 135 - 145 mmol/L Potassium, pl 4.6 3.3 - 4.9 mmol/L [facility] Chloride 92(L) 97 - 110 mmol/L [facility] CO2 23 22 - 32 mmol/L [facility] Anion gap 23(H) 2 - 15 mmol/L [facility] BUN 55(H) 6 - 25 mg/dL [facility] Creatinine 13.60(H) 0.60 - 1.10 mg/dL [facility] Glucose 101 70 - 199 mg/dL [facility] Comment: Interpretive Data Fasting glucose [...] 2022. Calcium 6.9(L) 8.5 - 10.3 mg/dL [facility] Bilirubin, total 0.2 0.1 - 1.2 mg/dL [facility] Protein, pl 7.1 6.5 - 8.5 g/dL [facility] Albumin 3.2(L) 3.5 - 5.0 g/dL [facility] Alk phos 74 40 - 130 Units/L [facility] ALT 16 7 - 45 Units/L [facility] AST 30 10 - 45 Units/L [facility] Blood 02/20/2025 10:0 3 PM CDT 02/20/2025 10:50 PM CDT us Jaimie Giordano MD LAB BLOOD ORDERABLES Final Result [facility] Department [place] [address] * ECG 12 lead (02/20/2025 9:19 PM CDT) [facility] Ventricular Rate EKG/Min 72 BPM [facility] Atrial Rate 72 BPM [facility] VT-Interval (MSEC) 120 ms [facility] QRS-Interval (MSEC) 96 ms [facility] QT-Interval (MSEC) 440 ms [facility] QTc 481 ms [facility] P Calpine 92 degrees [facility] R [place] -31 degrees [facility] T Cal[place] 140 degrees [facility] Diagnosis Sinus rhythm with Premature atrial [...] now Present Confirmed by HARJINDER HANDY M.D ([id number]) on 02/23/2025 12:46:43 PM [facility] 02/20/2025 9:19 PM CDT 02/23/2025 12:46 PM CDT Jaimie Giordano MD ECG ORDERABLES Victoria becerra Result [facility] * (ABNORMAL) Troponin T high-sensitivity 6-hour (02/20/2025 5:36 PM CDT) Trop T hs 911(C) <=14 ng/L Comment: Critical Result called to and read back by Parminder limon, DATE: 2025-02-20 18:15:52 BY: [email or web address] Interpretive Data For further hscTnT resources including the diagnostic algorithm and an aid in interpretation, copy and paste this link: https://nrl.testcatalog.org/show/hsTrop Current Interpretive Data last revised 2020. Trop T hs interp Significa nt(C) [facility] Comment:Critical Result call ed to and read back by Parminder [email or web address], DATE: 2025-02-20 18:15:52 BY: [email or web address] Blood 02/20/2025 5:36 PM CDT 02/20/2025 5:45 PM CDT Khanh Shankar DO LAB BLOOD ORDERABLES Final Result Performing Organization Address [facility] de Phone Number [facility] [address] [address] * (ABNORMAL) eGFR (02/20/2025 5:36 PM CDT) [...] BLOOD ORDERABLES Final Result Performing Organization Address [facility] Co de Phone Number [facility] [address] [employer] [address] * Heparin anti factor Xa activity (02/20/2025 5:36 PM CDT) Pathologist [facility] Anti Factor Xa <0.10 IUnits/mL Comment: Interpretive [...] PM CDT 02/20/2025 5:45 PM CDT Narrative [facility] - 02/20/2025 6:39 PM CDT Baseline prior to heparin initiation Khanh Shankar DO LAB BLOOD ORDERABLES Final Result Performing Organization Address [facility] Co de Phone Number [facility] [address] [facility] Department [place] [address] * Hepatitis B surface antibody (immune status) Blood (02/20/2025 5:36 PM CDT) [facility] HBsAb (immune status) Nonreactive Comment: Interpretive Data [...] GENERAL ORDERABLES Final Result Performing Organization Address City/[facility]/ZIP Co de Phone Number [facility] [place] [address] * Hepatitis B Surface Antigen Blood (02/20/2025 5:36 PM CDT) [facility] HepBsAg Nonreactive Nonreactive Blood 02/20/2025 5:36 PM CDT 02/20/2025 5:45 PM CDT Girish Maya MD LAB MICROBIOLOGY - GENERAL ORDERABLES Final Result Performing Organization Address [facility] Co de Phone Number [address] [place] [address] * (ABNORMAL) Protime-INR (02/20/2025 5:36 PM CDT) [facility] PT 15.2(H) 12.0 - 14.6 sec Comment:Ref Range High INR 1.2 0.9 - 1.2 [facility] Comment: Ref Range High Interpretive data Oral anticoagulant therapeutic ranges: Venous thromboembolism prophylaxis or treatment: 2.0-3.0 CARDIOLOGY Standard range: 2.0-3.0 High-intensity range: 2.5-3.5 Refer to indication-specific guidelines for appropriate target ranges for prosthetic heart valve replacement. Current interpretive data was last revised on 2019. Blood 02/20/2025 5:36 PM CDT 02/20/2025 5:45 PM CDT hKanh Shankar DO LAB BLOOD ORDERABLES Final Result Performing Organization Address [facility] Co de Phone Number [address] [place] [address] * (ABNORMAL) CBC without differential (02/20/2025 5:36 PM CDT) [facility] WBC 5.51 3.80 - 9.90 K/cumm Hgb 12.1 11.9 - 15.5 g/dL [facility] Hct 38.4 35.6 - 45.5 % [facility] Plt 153 150 - 400 K/cumm [facility] MPV 10.5 9.1 - 12.3 fL [facility] RBC 4.30 3.90 - 5.20 M/cumm [facility] MCV 89.3 81.3 - 96.4 fL [facility] MCH 28.1 27.1 - 33.3 pg [facility] MCHC 31.5(L) 32.3 - 35.7 g/dL [facility] RDW CV 15.1(H) 11.1 - 14.9 % [facility] RDW SD 49.1(H) 35.7 - 48.1 fL [facility] NRBC abs 0.00 0.00 - 0.01 K/cumm [facility] Blood 02/20/2025 5:36 PM CDT 02/20/2025 5:45 PM CDT Narrative [facility] - 02/20/2025 5:48 PM CDT Baseline prior to heparin initiation Khanh Shankar DO LAB BLOOD ORDERABLES Final Result [facility] [address] [facility] Department [place] [address] * (ABNORMAL) Basic metabolic panel (02/20/2025 5:36 PM CDT) [facility] Sodium 136 135 - 145 mmol/L Potassium, pl 5.8(H) 3.3 - 4.9 mmol/L [facility] Comment:Delta - Results Revi ewed Chloride 94(L) 97 - 110 mmol/L [facility] CO2 23 22 - 32 mmol/L [facility] Anion gap 19(H) 2 - 15 mmol/L [facility] BUN 55(H) 6 - 25 mg/dL [facility] Creatinine 13.90(H) 0.60 - 1.10 mg/dL [facility] Glucose 87 70 - 199 mg/dL [facility] [...] BLOOD ORDERABLES Final Result Performing Organization Address City/[facility]/ZIP Co de Phone Number [facility] [address] [facility] Department [place] [address] * ECG 12 lead (02/20/2025 3:12 PM CDT) Ventricular Rate EKG/Min 72 BPM [facility] Atrial Rate 72 BPM [facility] VT-Interval (MSEC) 106 ms [facility] QRS-Interval (MSEC) 92 ms [facility] QT-Interval (MSEC) 450 ms [facility] QTc 492 ms [facility] P Calpine 79 degrees [facility] R [place] -40 degrees [facility] T Calpine 133 degrees [facility] Diagnosis Sinus rhythm with sinus arrhythmia with short VT Left axis deviation T wave abnormality, consider lateral ischemia Prolonged QT Abnormal ECG When compared with ECG of 20-FEB-2025 15:07, Sinus rhythm has replaced Atrial fibrillation Confirmed by MD MIKE, HENRY ([id number]) on 02/21/2025 5:43:47 PM [facility] 02/20/2025 3:12 PM CDT 02/21/2025 5:43 PM CDT Khanh Shankar DO ECG ORDERABLES Final Resul t [facility] * ECG 12 lead (02/20/2025 3:07 PM CDT) Ventricular Rate EKG/Min 68 BPM [facility] Atrial Rate 67 BPM [facility] QRS-Interval (MSEC) 84 ms [facility] QT-Interval (MSEC) 454 ms [facility] QTc 482 ms [facility] R Calpine -39 degrees [facility] T Calpine 119 degrees [facility] Diagnosis Suspect unspecified pacemaker failure Atrial fibrillation Left axis deviation Anterior infarct (cited on 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-MAY-2024) T wave abnormality, consider lateral ischemia Abnormal ECG When compared with ECG of 20-FEB-2025 10:47, Atrial fibrillation has replaced Sinus rhythm Confirmed by MD MIKE, HENRY ([id number]) on 02/21/2025 5:43:35 PM [facility] 02/20/2025 3:07 PM CDT 02/21/2025 5:43 PM CDT Khanh Shankar DO ECG ORDERABLES Final Resul t [facility] * (ABNORMAL) Troponin T high-sensitivity 4-hour (02/20/2025 2:55 PM CDT) Trop T hs 834(C) <=14 ng/L Comment: Critical Result called to and read back by Niko [email or web address], DATE: 2025-02-20 15:27:21 BY: [email or web address] Interpretive Data For further hscTnT resources including the diagnostic algorithm and an aid in interpretation, copy and paste this link: https://nrl.testcatalog.org/show/[email or web address] Current Interpretive Data last revised 2020. Trop T hs pct delta 36(C) % [facility] Comment:Critical Result call ed to and read back by Niko [email or web address], DATE: 2025-02-20 15:27:21 BY: [email or web address] Trop T hs interp Significa nt(C) [facility] Comment:Critical Result call ed to and read back by Niko [email or web address], DATE: 2025-02-20 15:27:21 BY: [email or web address] Blood 02/20/2025 2:55 PM CDT 02/20/2025 2:57 PM CDT Khanh Shankar DO LAB BLOOD ORDERABLES Final Result Performing Organization Address [facility] Co de Phone Number [facility] [address] [facility] [place] [address] * Blood culture Blood (02/20/2025 2:33 PM CDT) Report Final Report: No growth Comment:Testing performed by : [facility], [address] [place]., [address] Blood 02/20/2025 2:33 PM CDT 02/20/2025 6:26 PM CDT [facility] 02/25/2025 7:00 AM CDT From a different [...] performance characteristics have been verified by the [facility] Microbiology Laboratory. For questions about this culture, contact the Microbiology Laboratory at [phone]. Interpretive data was last revised on 24. Khanh Pabon [facility] MICROBIOLOGY - GENERAL ORDERABLES Final Result Performing Organization Address [facility]/ZIP Co de Phone Number [place] [address] [facility] [employer] [place] [address] * Blood culture Blood (02/20/2025 2:23 PM CDT) Report Final Report: No growth Comment:Testing performed by : [facility], [address] [facility], [place]., [address] Blood 02/20/2025 2:23 PM CDT 02/20/2025 6:26 [...] performance characteristics have been verified by the [facility] Microbiology [facility]. For questions about this culture, contact the Microbiology Laboratory at [phone]. Interpretive data was last revised on 24. Khanh Shankar DO LAB MICROBIOLOGY - GENERAL ORDERABLES Final Result [facility] [address] [facility] Department [place] [address] * (ABNORMAL) Troponin T high-sensitivity 2-hour (02/20/2025 2:02 PM CDT) Trop T hs 785(C) <=14 ng/L Comment: Critical Result called to and read back by Cecilia [email or web address], DATE: 2025-02-20 14:27:31 BY: [email or web address] Interpretive Data For further hscTnT resources including [...] DO LAB BLOOD ORDERABLES Final Result [facility] [address] [facility] Department [place] [address] * CT Chest WO Contrast (02/20/2025 1:06 [...] by Rc Cody M.D. T: Report ID: [id number] Reading Location: [id number] Procedure Note Rc Cody, DO - 02/20/2025 [...] by Rc Cody M.D. T: Report ID: [id number] Reading Location: [place] [address] Khanh Shankar DO IMG CT PROCEDURES Final [...] by Rc Cody M.D. T: Report ID: [id number] Reading Location: [id number] Procedure Note Rc Cody DO - 02/20/2025 [...] by Rc Cody M.D. T: Report ID: [id number] Reading Location: [place] [address] us Khanh Shankar DO IMG XR PROCEDURES Final Res ult * (ABNORMAL) Troponin T high-sensitivity series (baseline, 2hr, 4hr, 6hr) (02/20/2025 10:52 AM CDT) Trop T hs 611(C) <=14 ng/L Comment: Critical Result called to and read back by [id number], DATE: 2025-02-20 11:39:27 BY: [id number] Interpretive Data For further hscTnT resources including the diagnostic algorithm and an aid in interpretation, copy and paste this link: https://nrl.testcatalog.org/show/[email or web address] Current Interpretive Data last revised 2020. Blood 02/20/2025 10:5 2 AM CDT 02/20/2025 10:56 AM CDT us Khanh Shankar DO LAB BLOOD ORDERABLES Final Result [facility] [address] [facility] Department [place] [address] * Sepsis Lactate w/ Reflex (02/20/2025 10:52 AM CDT) Sepsis Lactate 1.8 0.7 - 2.0 mmol/L Blood 02/20/2025 10:5 2 AM CDT 02/20/2025 10:57 AM CDT [facility]LOOD ORDERABLES Final Result Performing Organization Address [facility] Co de Phone Number CAMER[place] [address] [place] [address] * (ABNORMAL) eGFR (02/20/2025 10:52 AM CDT) [...] BLOOD ORDERABLES Final Result Performing Organization Address City/[facility]/ZIP Co de Phone Number [place] [address] [employer] [place] [address] * (ABNORMAL) Differential, auto (02/20/2025 10:52 AM CDT) Pathologist [facility] Neutrophil abs 4.13 1.50 - 6.50 K/cumm Imm gran abs 0.02 0.00 - 0.10 K/cumm [facility] Lymphocyte abs 0.61(L) 0.80 - 3.30 K/cumm [facility] Monocyte abs 0.28 0.20 - 0.80 K/cumm [facility] Eosinophil abs 0.15 0.00 - 0.50 K/cumm [facility] Basophil abs 0.02 0.00 - 0.10 K/cumm [facility] Neutrophil pct 79.2 % [facility] Comment: Interpretive Data Percent cell count reference ranges are not reported, since discordance with absolute values may lead to misinterpretation of CBC data. Current Interpretive Data was last revised on 2018. Imm gran pct 0.4 % [facility] Comment: Interpretive Data Percent cell count reference ranges are not reported, since discordance with absolute values may lead to misinterpretation of CBC data. Current Interpretive Data was last revised on 2018. Lymphocyte pct 11.7 % [facility] Comment: Interpretive Data Percent cell count reference ranges are not reported, since discordance with absolute values may lead to misinterpretation of CBC data. Current Interpretive Data was last revised on 2018. Monocyte pct 5.4 % [facility] Comment: Interpretive Data Percent cell count reference ranges are not reported, since discordance with absolute values may lead to misinterpretation of CBC data. Current Interpretive Data was last revised on 2018. Eosinophil pct 2.9 % [facility] Comment: Interpretive Data Percent cell count reference ranges are not reported, since discordance with absolute values may lead to misinterpretation of CBC data. Current Interpretive Data was last revised on 2018. Basophil pct 0.4 % [facility] Comment: Interpretive Data Percent cell count reference ranges are not reported, since discordance with absolute values may lead to misinterpretation of CBC data. Current Interpretive Data was last revised on 2018. Blood 02/20/2025 10:5 2 AM CDT 02/20/2025 10:56 AM CDT Khanh Shankar DO LAB BLOOD ORDERABLES Final Result Performing Organization Address [facility] Co de Phone Number CAMER[place] [address] [address] * (ABNORMAL) CBC with auto differential (02/20/2025 10:52 AM CDT) [facility] WBC 5.21 3.80 - 9.90 K/cumm Hgb 13.2 11.9 - 15.5 g/dL [facility] Hct 42.8 35.6 - 45.5 % [facility] Plt 158 150 - 400 K/cumm [facility] MPV 10.8 9.1 - 12.3 fL [facility] RBC 4.75 3.90 - 5.20 M/cumm [facility] MCV 90.1 81.3 - 96.4 fL [facility] MCH 27.8 27.1 - 33.3 pg [facility] MCHC 30.8(L) 32.3 - 35.7 g/dL [facility] RDW CV 15.2(H) 11.1 - 14.9 % [facility] RDW SD 49.4(H) 35.7 - 48.1 fL [facility] NRBC abs 0.00 0.00 - 0.01 K/cumm [facility] Blood 02/20/2025 10:5 2 AM CDT 02/20/2025 10:56 AM CDT Khanh Shankar LAB BLOOD ORDERABLES Final Result Performing Organization Address [facility] Co de Phone Number [facility] [address] [address] * (ABNORMAL) Comprehensive metabolic panel (02/20/2025 10:52 AM CDT) [facility] Sodium 137 135 - 145 mmol/L Potassium, pl 4.4 3.3 - 4.9 mmol/L [facility] Chloride 92(L) 97 - 110 mmol/L [facility] CO2 24 22 - 32 mmol/L [facility] Anion gap 21(H) 2 - 15 mmol/L [facility] BUN 48(H) 6 - 25 mg/dL [facility] Creatinine 13.30(H) 0.60 - 1.10 mg/dL [facility] Glucose 72 70 - 199 mg/dL [facility] [...] 2022. Calcium 7.2(L) 8.5 - 10.3 mg/dL [facility] Bilirubin, total 0.3 0.1 - 1.2 mg/dL [facility] Protein, pl 6.6 6.5 - 8.5 g/dL [facility] Albumin 3.1(L) 3.5 - 5.0 g/dL [facility] Alk phos 66 40 - 130 Units/L [facility] ALT 14 7 - 45 Units/L [facility] AST 20 10 - 45 Units/L [facility] Blood 02/20/2025 10:5 2 AM CDT 02/20/2025 10:56 AM CDT Khanh Shankar DO LAB BLOOD ORDERABLES Final Result [facility] [address] [facility] Department [place] [address] * ECG 12 lead (02/20/2025 10:47 AM CDT) Pathologist [facility] Ventricular Rate EKG/Min 78 BPM [facility] Atrial Rate 78 BPM [facility] VT-Interval (MSEC) 112 ms [facility] QRS-Interval (MSEC) 92 ms [facility] QT-Interval (MSEC) 424 ms [facility] QTc 483 ms [facility] P Calpine 86 degrees [facility] R [place] -33 degrees [facility] T Calpine 139 degrees [facility] Diagnosis Sinus rhythm with Premature supraventricular complexes Left axis deviation Septal infarct (cited on 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-MAY-2024) T wave abnormality, consider lateral ischemia Abnormal ECG When compared with ECG of 28-JAN-2025 10:10, Sinus rhythm has replaced Electronic atrial pacemaker Confirmed by SULTAN NDIAYE M.D. ([id number]) on 02/22/2025 4:12:38 PM [facility] [employer] 02/20/2025 10:4 7 AM CDT 02/22/2025 4:12 PM CDT Khanh Shankar DO ECG ORDERABLES Final Resul t [facility] [employer] [facility] * XR Orthopantogram [employer] (01/28/2025 10:32 [...] 12 lead (01/28/2025 10:10 AM CDT) Pathologist [facility] Ventricular Rate EKG/Min 79 BPM [facility] Atrial Rate 79 BPM [facility] VT-Interval (MSEC) 164 ms [facility] QRS-Interval (MSEC) 88 ms [facility] QT-Interval (MSEC) 396 ms [facility] QTc 454 ms [facility] P Calpine 112 degrees [facility] R Cal[place] -24 degrees [facility] T Calpine 129 degrees [facility] Diagnosis Atrial-paced rhythm in a pattern of bigeminy Anteroseptal infarct (cited on 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-MAY-2024) ST & T wave abnormality, consider lateral ischemia Abnormal ECG When compared with ECG of 25-DEC-2024 06:56, Premature atrial complexes are no longer Present Confirmed by HARJINDER HANDY M.D ([id number]) on 01/29/2025 11:51:51 AM [facility] 01/28/2025 10:1 0 AM CDT 01/29/2025 11:51 AM CDT Tamar Tang MD ECG ORDERABLES Final Result [facility] * Mislabeled Test (01/28/2025 9:47 AM CDT) [facility] Location Other location Reason No Signature On Blood Bank Specimen [facility] Mislabel resolution Testing canceled [facility] Blood 01/28/2025 9:47 AM CDT 01/28/2025 11:45 AM CDT Abigail Vides MD LAB BLOOD ORDERABLES Final Result [facility] [place] [address] * (ABNORMAL) eGFR (01/28/2025 9:42 AM CDT) [facility] eGFR 3(L) >=60 mL/min/1. 73 m2 Comment: [...] ORDERABLES Final Res ult Performing Organization Address City/[facility]/ZIP Co de Phone Number [facility] [place] [address] * HIV 1/2 Antibody plus p24 Antigen Blood (01/28/2025 9:42 AM CDT) Pathologist [facility] HIV 1/2 ab + p24 ag Nonreactive [...] ORD ERABLES Final Result Performing Organization Address City/[facility]/ZIP Co de Phone Number [facility] Department [place] [address] * Hepatitis C antibody Blood (01/28/2025 9:42 AM CDT) Hep C Ab Nonreactive Nonreactive Comment:Antibodies to HCV no t detected. Does NOT exclude the possibility of recent exposure to HCV. Current interpretive data was last revised on 22 Blood 01/28/2025 9:42 AM CDT 01/28/2025 10:56 AM CDT Tamar Tang MD LAB MICROBIOLOGY - GENERAL ORD ERABLES Final Result [facility] [place] [address] * Hepatitis B core antibody, total Blood (01/28/2025 9:42 AM CDT) Hep B core IgG/IgM Nonreactive Nonreactive Blood 01/28/2025 9:42 AM CDT 01/28/2025 10:56 AM CDT Tamar Tang MD LAB MICROBIOLOGY - GENERAL ORD ERABLES Final Result Performing Organization Address [facility] Co de Phone Number [facility] [place] [address] * Hepatitis B surface antibody (immune status) Blood (01/28/2025 9:42 AM CDT) Pathologist [facility] HBsAb (immune status) Nonreactive Comment:This result is consi stent with a lack of immunity to Hepatitis B Virus when used in the setting of routine screening. Current interpretative data was last revised on 22 Blood 01/28/2025 9:42 AM CDT 01/28/2025 10:56 AM CDT Tamar aTng MD LAB MICROBIOLOGY - GENERAL ORD ERABLES Final Result [id number] [place] [address] * Hepatitis B Surface Antigen Blood (01/28/2025 9:42 AM CDT) [facility] HepBsAg Nonreactive Nonreactive Blood 01/28/2025 9:42 AM CDT 01/28/2025 10:56 AM CDT Tamar Tang MD LAB MICROBIOLOGY - GENERAL ORD ERABLES Final Result [facility] Department [place] [address] * (ABNORMAL) CBC without differential (01/28/2025 9:42 AM CDT) [facility] WBC 5.32 3.80 - 9.90 K/cumm Hgb 13.1 11.9 - 15.5 g/dL [facility] Hct 41.5 35.6 - 45.5 % [facility] Plt 156 150 - 400 K/cumm [facility] MPV 10.5 9.1 - 12.3 fL [facility] RBC 4.64 3.90 - 5.20 M/cumm [facility] MCV 89.4 81.3 - 96.4 fL [facility] MCH 28.2 27.1 - 33.3 pg [facility] MCHC 31.6(L) 32.3 - 35.7 g/dL [facility] RDW CV 16.1(H) 11.1 - 14.9 % [facility] RDW SD 51.8(H) 35.7 - 48.1 fL [facility] NRBC abs 0.00 0.00 - 0.01 K/cumm [facility] Blood 01/28/2025 9:42 AM CDT 01/28/2025 10:58 AM CDT Abigail Vides MD LAB BLOOD ORDERABLES Final Result [facility] [place] [address] * (ABNORMAL) Phosphorus (01/28/2025 9:42 AM CDT) Pathologist [facility] Phosphorus, pl 7.4(H) 2.3 - 4.5 mg/dL Blood 01/28/2025 9:42 AM CDT 01/28/2025 10:56 AM CDT Tamar Tang MD LAB BLOOD ORDERABLES Final Res ult Performing Organization Address [facility] de Phone Number [facility] Department [place] [address] * PTH (01/28/2025 9:42 AM CDT) [facility] PTH 43 15 - 65 pg/mL Blood 01/28/2025 9:42 AM CDT 01/28/2025 10:56 AM CDT Tamar Tang MD LAB BLOOD ORDERABLES Final Res ult Performing Organization Address [facility] de Phone Number [facility] [place] [address] * (ABNORMAL) Hemoglobin A1c (01/28/2025 9:42 AM CDT) [facility] Hgb A1C 5.8(H) 4.0 - 5.6 % Estimated Average Glucose 120 mg/dL [facility] Comment: The ADA recommends reporting an estimated [...] ORDERABLES Final Res ult Performing Organization Address [facility] Co de Phone Number [facility] [place] [address] * (ABNORMAL) Comprehensive metabolic panel (01/28/2025 9:42 AM CDT) Sodium 137 135 - 145 mmol/L Potassium, pl 5.7(H) 3.3 - 4.9 mmol/L [facility] Chloride 95(L) 97 - 110 mmol/L [facility] CO2 27 22 - 32 mmol/L [facility] Anion gap 15 2 - 15 mmol/L [facility] BUN 61(H) 6 - 25 mg/dL [facility] Creatinine 14.50(H) 0.60 - 1.10 mg/dL [facility] Glucose 77 70 - 199 mg/dL [facility] Comment: Interpretive Data Fasting glucose [...] 2022. Calcium 7.3(L) 8.5 - 10.3 mg/dL [facility] Bilirubin, total 0.3 0.1 - 1.2 mg/dL [facility] Protein, pl 6.8 6.5 - 8.5 g/dL [facility] Albumin 3.2(L) 3.5 - 5.0 g/dL [facility] Alk phos 64 40 - 130 Units/L [facility] ALT 20 7 - 45 Units/L [facility] AST 24 10 - 45 Units/L [facility] Blood 01/28/2025 9:42 AM CDT 01/28/2025 10:56 AM CDT Tamar Tang MD LAB BLOOD ORDERABLES Final Res ult [facility] Department [place] [address] * HLA Antibody Screen - SAB (Class [...] a method developed and validated by the [facility] HLA laboratory based on an FDA-approved IVD kit (LABScreen Single-Antigen, One [employer], [place], [place]). All patient serum samples are pretreated with EDTA before the screen to prevent complement interference. Additional serum treatments, such as adsorption and DTT treatment, may be performed as indicated. Interpretive comments: Low risk: MFI [id number]. Moderate risk: MFI [id number]. Increased risk: MFI >/= 5000. The presence [...] antigens to avoid. Testing performed at the [facility], [address] [place] [address], 5th floor, [place], [address]. CLIA # [id number]. Rosa Millan, Ph.D., Supervisor [place], HLA Laboratory Wilmer Prescott M.D., Ph.D., Estate Agent, [facility] Laboratory Alma Payton, Ph.D., CLIA Estate Agent, [facility] Current methodology and interpretive comments last revised on 11/15/2022. us Salina Hector MD LAB BLOOD ORDERABLES Final Resul t [facility] from Last 3 Months
--- OUTSIDE RECORDS SUMMARY | 2025-04-22 12:34 | XMS_ITS | Encounter Summary ---
Author Organization [facility] Healthcare Address [address] [place] [address] Care Team Providers Care Pediatric Geneticist Name Role Phone Quinton Rowan MD Unavailable Pal Downey DO Primary Care Provider [phone] Tami Flores RN Unavailable Cricket Escalante MD Unavailable Gael Sprague MD PhD Unavailable Brad Turner MD Unavailable [phone] Margarita Montoya MD Unavailable Luca Lott MD Unavailable [phone] Pb Galloway MD Unavailable [phone] Felipe Gerber MD Unavailable [phone] Encounter Details Date Type Department Care Team (Latest Contact Info) Description 04/20/2025 10:00 AM CDT - 04/20/2025 11:59 PM CDT Hospital Encounter [address] [address] ESRD (end stage renal disease) [...] on file Legal Sex Female 4:06 AM [employer] 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 Single Antigen Antibody Screen ordered. us Salina Hector MD LAB BLOOD ORDERABLES Final Resul t NACHO documented in this encounter Visit Diagnoses Diagnosis ESRD (end stage renal disease) (HCC) End stage renal disease documented in this encounter Care Teams Pediatric Geneticist Relationship Specialty Start Date End Date Pal Downey DO PCP - General Internal Medicine 01/25/21 Quinton Rowan MD Referring Physician Cardiology 01/09/19 Tami Flores RN [address] [address] Registered Nurse Card Runner 01/25/21 Cricket Escalante MD [address] [address] Referring Physician Nephrology 03/24/21 Gael Sprague MD PhD [address] [address] Fellow Endocrinology Diabetes & Metabolism 03/24/21 Brad Turner MD [address] [address] Consulting Physician Obstetrics and Gynecology 03/24/21 Margarita Montoya MD [address] [id number] Consulting Physician Trauma Surgery 12/27/21 Luca Lott MD [address] [address] Consulting Physician Cardiology 08/03/22 Pb Galloway MD [address] [address] Cardiothoracic Surgery 05/25/24 Felipe Gerber MD [address] [address] Consulting Physician Cardiology 05/25/24 documented as of this encounter
--- OUTSIDE RECORDS SUMMARY | 2025-04-22 12:34 | XMS_ITS | Encounter Summary ---
Author Organization [facility] [employer] [facility] Address [address] [place] [address] Phone Care Team Providers Care Rn Clinical Review Name Role Phone Quinton Rowan MD Unavailable [phone] Pal Downey DO Primary Care Provider [phone] Tami Flores RN Unavailable Cricket Escalante MD Unavailable Gael Sprague MD PhD Unavailable Brad Turner MD Unavailable Margarita Montoya MD Unavailable Luca Lott MD Unavailable Pb Galloway MD Unavailable [phone] Felipe Gerber MD Unavailable [phone] Claire Rosales [facility] Unavailable Encounter Details Date Type Department Care [...] on file 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 Gender Identity Female 01/16/2024 11:18 AM CDT [...] documented as of this encounter Care Teams Rn Clinical Review Relationship Specialty Start Date End Date Pal Downey DO PCP - General Internal Medicine 01/25/21 Quinton Rowan MD Referring Physician Cardiology 01/09/19 Tami Flores, [place] [address] [address] Registered Nurse Staff Editor 01/25/21 Cricket Escalante MD [address] [address] Referring Physician Nephrology 03/24/21 Gael Sprague MD PhD [address] [facility] [address] [place] [address] Fellow Endocrinology Diabetes & Metabolism 03/24/21 Brad Turner MD [address] [address] Consulting Physician Obstetrics and Gynecology 03/24/21 Margarita Montoya MD [address] [address] Consulting Physician Trauma Surgery 12/27/21 Luca Lott MD [address] [facility] [address] [address] Consulting Physician Cardiology 08/03/22 Pb Galloway MD [address] [facility] [address] [address] Cardiothoracic Surgery 05/25/24 Felipe Gerber MD [address] [facility] [address] [address] Consulting Physician Cardiology 05/25/24 Claire Rosales, [facility] [address] [facility] Mailstop [phone] [place] [address] [facility]OP Outpatient Principal Embedded Software Engineer 02/25/25 03/01/25 documented as of this encounter
--- OUTSIDE RECORDS SUMMARY | 2025-04-22 12:35 | XMS_ITS | Continuity of Care Document ---
Author Organization [facility] Address [address] [place] [address] [place] [address] Phone Care Team Providers Care Sign Hanger Supervisor Name Role Phone Ez Kc Unavailable Unavailable Procedures Procedure Date Office/outpatient Visit, Est Office/outpatient Visit, Est Advance Directives Directive Yes / No Effective Date File Name No Information Encounters Encounter Description Practice Location Reason(s) For Visit Diagnoses Date Provider Providers Copied on Encounter Office/outpat ient [place], [facility] [address] [place] [address] [address], [place], [place], [address], tel:[phone] [facility] No Information 0 Doisy Ez. [facility], [place], [place], [facility], [place]. tel:[phone] Office/outpat ient Visit, [facility] [address] [place] [address] [address], [place], [place], [id number], tel:[phone] [facility] No Information 0 Camara OD [address]. [address] , [address], [place], [address], [place]. tel:[phone] Family History Family Member Type Diagnosis Age At Onset No Information Payers Payer name Insurance type Covered constitution party ID Authoriza tion(s) Medicaid [facility] [id number] Social History Type Description Quantity Date Captured [...]
--- OUTSIDE RECORDS SUMMARY | 2025-04-22 12:35 | XMS_ITS | Clinical Summary ---
Author Organization [facility] [facility] Address [address] [place] [address] Care Team Providers Care Pick Up Attendant Name Role Phone Danielle Hawkins Primary Care Provider Unavailabl e Source Comments [facility] [facility],non-owned Affiliates and Associated Physician Practices is amultiple site organization consisting of ambulatory clinics and hospital sitesin [place], [place], [place] and [place]. This disclosure is being madepursuant to the Care Everywhere program and may not contain all information available regarding this patient. 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 Gender Identity Not on file Sexual Orientation Not on file Last Filed Vital Signs Vital Sign Reading Time Taken Comments Blood Pressure 145/91 09/06/2016 9:59 AM MOLDED GOODS OPERATOR Pulse 79 09/06/2016 9:59 AM MOLDED GOODS OPERATOR Temperature 36.4 C (97.5 F) 12/23/2015 3:20 PM MOLDED GOODS OPERATOR Respiratory Rate 12 09/06/2016 9:59 AM MOLDED GOODS OPERATOR Oxygen Saturation 100% 12/23/2015 3:20 PM MOLDED GOODS OPERATOR Inhaled Oxygen Concentration - - Weight 60.8 kg (134 lb) 09/06/2016 9:59 AM MOLDED GOODS OPERATOR Height 162.6 cm (5' 4) 09/06/2016 9:59 AM MOLDED GOODS OPERATOR Body Mass Index 23 09/06/2016 9:59 AM MOLDED GOODS OPERATOR Plan of Treatment Health Maintenance Due [...] file Group ID:Not on file Type:Medicaid Address: [place] [id number] MEDICARE SELF PAY NO INSURANCE Member Subscriber Plan / Payer (Ef fective for All Dates) Name:Ginger Copeland Member ID:Not on file Relation to Subscriber:Not on file Name:GINGER COPELAND Subscriber ID:Not on file (Home) Address: [address] [place] [address] Payer ID:Not on file Group ID:Not on file Type:Self Pay Address: [facility] Care Teams Pick Up Attendant Relationship Specialty Start Date End Date Danielle Hawkins Update Information PCP - General 04/29/15
--- OUTSIDE RECORDS SUMMARY | 2025-04-22 12:35 | XMS_ITS | Clinical Summary ---
Author Organization [facility] Address [address] [place] [address] Phone Care Team Providers Care Hvac Journeyman Name Role Phone ScarlettmelanyPal ibarra DO Primary Care Provider [phone] Allergies Active Allergy Reactions Criticality Noted Date [...] on file Legal Sex Female 9:07 AM [facility] Gender Identity Not on file Sexual Orientation Not on file Last Filed Vital Signs Vital Sign Reading Time Taken Comments Blood Pressure 122/70 12/22/2021 9:43 PM ENVELOPE MAKER Pulse 72 12/22/2021 9:43 PM ENVELOPE MAKER Temperature 36.2 C (97.2 F) 12/22/2021 9:43 PM ENVELOPE MAKER Respiratory Rate - - Oxygen Saturation - - Inhaled Oxygen Concentration - - Weight 50.3 kg (111 lb) 12/22/2021 9:43 PM ENVELOPE MAKER Height 162.6 cm (5' 4) 12/22/2021 9:43 PM ENVELOPE MAKER Body Mass Index 19.05 12/22/2021 9:43 PM ENVELOPE MAKER Plan of Treatment Health Maintenance Due Date Last Done Comments Influenza Vaccine (Season Ended) 2025 10/21/19 18 Insurance MEDICAID - [place] [facility] Care Teams Hvac Journeyman Relationship Specialty Start Date End Date Pal Downey DO [address] [place] [id number] PCP - General Internal Medicine 02/04/19
[2025-04-22 12:45] LABS: Hematocrit 42.2 % (37.0-47.0); Hemoglobin 13.1 g/dL (12.0-15.0); Immature Granulocyte Percent A 0.1 % (0-0.5); Immature Platelet Fraction Pct 3.0 % (0.9-11.2); Lymphocytes Absolute Auto 0.91 K/mm3 (0.9-3.2); Mean Corpuscular HGB Conc 31.0 g/dl (32-36); Mean Corpuscular Hemoglobin 29.0 pg (26-34); Mean Corpuscular Volume 93.6 fl (80-100); Nucleated Red Blood Cells Absolute Auto 0.000 K/mm3 (0.0-0.012); Nucleated Red Blood Cells Perc 0.0 % (0.0-0.2); Platelet Count Result 120 k/mm3 (150-375); Red Blood Count 4.51 M/mm3 (4.2-5.4); White Blood Count 7.1 K/mm3 (4.5-10.0)
[2025-04-22 13:09] LABS: INR 1.0; Prothrombin Time 13.6 Seconds (11.1-14.7)
[2025-04-22 13:12] LABS: Partial Thromboplastin Time 27.7 Seconds (22.3-36.8)
--- NOTE | 2025-04-22 14:31 | PC.NURSE ---
PT STATES SINCE SHE IS A PERITONEAL DIALYSIS PT SHE MAKES NO URINE
[2025-04-22 15:06] LABS: Alanine Aminotransferase 15 U/L (6-35); Albumin Level 3.4 g/dL (3.5-5.1); Alkaline Phosphatase 62 U/L (38-126); Anion Gap 13 mmol/L (4-12); Aspartate Amino Transferase 19 U/L (14-36); Bilirubin,Total 0.3 mg/dL (0.2-1.3); Blood Urea Nitrogen 54 mg/dL (7-17); Calcium 10.5 mg/dL (8.4-10.2); Carbon Dioxide 27 mmol/L (22-30); Chloride 94 mmol/L (98-107); Estimated CRCL calculation 4 ml/min; Estimated Glomerular Filt Rate 3; Glucose 87 mg/dL (65-110); Lipase 67 U/L (23-300); Potassium 4.6 mmol/L (3.4-5.0); Sodium 134 mmol/L (137-145); Total Protein 6.3 g/dL (6.3-8.2)
--- NOTE | 2025-04-22 15:09 | ECG_ITS ---
Test Date: 2025-04-22 18:29:26 Measurements Intervals [place] Rate: 68 P: 0 MD: 0 QRS: -29 QRSD: 91 T: 128 QT: 392 QTc: 418 Interpretive Statements sinus rhythm SEPTAL MYOCARDIAL INFARCTION , OF INDETERMINATE AGE [40+ ms Q WAVE IN V1/V2] MODERATE T-WAVE ABNORMALITY, CONSIDER LATERAL ISCHEMIA [-0.1+ mV T-WAVE IN I/aVL/V5/V6] Compared to ECG 04/22/2025 12:11:28 no change compared to prior EKG Electronically Signed On 04-23-2025 12:44:05 CDT by Eduin Springer M.D.
[2025-04-22 15:19] LABS: Troponin I 0.055 ng/mL (0.000-0.034)
[2025-04-22 15:38] LABS: Thyroid Stimulating Hormone 3.930 uIU/mL (0.465-4.680)
[2025-04-22 18:59] LABS: Troponin I 0.077 ng/mL (0.000-0.034)
--- NOTE | 2025-04-22 20:38 | P.HP_ITS ---
H&P: HPI History of Present Illness Date/Time: 04/22/25 20:38 Chief Complaint: Palpitations for the past 5 days Narrative: This is a very pleasant 54-year-old female patient with history of end-stage renal disease on peritoneal dialysis, polycystic kidney disease, coronary artery disease with PCI x5 and CABG x2, heart failure, sick sinus syndrome with pacemaker, ischemic cardiomyopathy, bilateral carotid artery stenosis, NSTEMI, asthma and neuroblastoma who comes to the emergency room with complaints of worsening of palpitations. Patient notes that they started 5 days ago and more intermittent in nature and have become more constant. 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 She denies any chest pain. She since being in the emergency room has denied any palpitations either. She is currently waiting to have a Holter monitor placed and it is due to be placed on Saturday. All of patient's medical care is performed usually in [facility] and she states that at baseline she has elevated troponins and that that elevated troponins here are not new for her that they are actually her baseline in the setting of her renal disease, however she is being admitted for a observation stay for monitoring of her rhythm and rate as well as full trending of her troponins. She does not feel comfortable signing out against medical advice for fear of insurance denial. Again at current time patient is asymptomatic of any chest pain, dyspnea. In the emergency room workup was performed that shows stable normal vital signs, initial EKG showing normal sinus rhythm 75 beats per minute, subsequent EKG suggested AFib at 68 beats per minute. Patient is noted to have a Medtronic pacemaker that was last interrogated in October 2024. Her metabolic panel is remarkable for BUN and creatinine of 54 and 12.29 respectively, glucose of 87, CBC is unremarkable, calcium is 10.5, TSH is normal at 3.93. Troponins marginally elevated at 0.055 increasing to 0.077. Coags are normal. Patient being admitted in the current setting for complete cardiac rule out and monitoring of rhythm overnight. Nephrology, Dr. Diaz has been consulted for Nephrology management. 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 She underwent left thoracotomy, chemotherapy and radiation. Aortic stenosis Bicuspid aortic valve. Status post aortic valve replacement on 02/11/2019 that resulted in perivalvular regurgitation. Asthma Surgical History Surgical History H/O single vessel coronary artery bypass Saphenous vein graft to LAD with PCI stent to the graft February 2022 with InStent restenoses 07/21/2022 with PCI and laser arthrectomy in placement id DESI x1 with EF postprocedure 50% and moderate aortic regurg S/P colonoscopic polypectomy 2020 Hx of heart artery stent History of aortic valve replacement History of section History of hysterectomy Pacemaker Patient developed bradycardia with sick sinus syndrome requiring pacemaker on 05/15/2019. History of thyroidectomy Family History Family History Father Hypertension Family history of coronary artery disease, Onset Age: 57 Mother Hypertension Cerebrovascular accident Family history of malignant neoplasm Family history of kidney disease Grandparent Family history of kidney disease Social History Social History Social History: Surrogate medical decision maker: She states that both her children her surrogate decision maker. Code status: Full code. Caffeine-coffee Smoking packs per day: 1 Smoking cigarettes per day: 20.0 Years smoked: 25 Smoking pack-years: 25.00 Smoking status: Former smoker Tobacco type: cigarettes and e-cigarettes/vaping Second hand tobacco smoke exposure: Yes Smoking end date: 04/01/12 Additional smoking assessment comments: quit vaping 05/2024 Alcohol intake: never Substance use: former Substance use type: marijuana Other substance usage details: Years ago Do You Feel Safe in your Home?: Yes Lack of Transportation: No Lack of Food: Never True Current Housing: I Have Housing Concerned About Future Housing: No Difficulty Paying Gas/Electric Bills: No Difficulty Paying for Meds: No Currently Unemployed: No Education: Trade/Vocational Certificate Difficulty w/ Childcare or Family Care: No Living arrangements: with family Additional living arrangements comments: She lives alone. 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 Spiritual care concerns: No Agree to blood products: Yes Meds Home Medications and Allergies Home Medications ?Medication ?Instructions ?Recorded ?Confirmed ?Type aspirin 81 mg tablet,delayed 81 mg PO DAILY 08/27/19 03/02/25 History release clopidogrel 75 mg tablet (Plavix) 75 mg PO DAILY 08/01/22 03/02/25 History gentamicin 0.1 % topical cream 1 applic topical DAILY 08/01/22 03/02/25 History loratadine 10 mg tablet (Claritin) 10 mg PO DAILY PRN Allergy Symptoms 08/01/22 03/02/25 History multivitamin 1 tablet PO DAILY 08/01/22 03/02/25 History nitroglycerin 0.4 mg sublingual 0.4 mg sublingual Q5M PRN Pain 08/01/22 03/02/25 History tablet albuterol sulfate 90 mcg/actuation 2 puff inhalation Q4-6H PRN 12/17/23 03/02/25 Rx aerosol inhaler (ProAir HFA) shortness of breath or wheezing #18 grams gabapentin 100 mg capsule 100 mg PO WEEKLY 08/18/24 03/02/25 History ergocalciferol (vitamin D2) 25,000 See Rx Instructions .Route .COMPLEX 09/24/24 03/02/25 History unit capsule calcitriol 0.25 mcg capsule 0.25 mcg PO DAILY 03/02/25 03/02/25 History calcium carbonate 500 mg PO DAILY 03/02/25 03/02/25 History evolocumab 140 mg/mL subcutaneous 140 mg subcut ONCE 03/02/25 03/02/25 History pen injector (Flo Lainez) ezetimibe 10 mg tablet 10 mg PO DAILY 03/02/25 03/02/25 History ferric citrate 210 mg iron tablet 210 mg PO BID 03/02/25 History (Auryxia) metoprolol tartrate 25 mg tablet 12.5 mg PO BID 03/02/25 03/02/25 History triamcinolone acetonide 0.5 % 1 applic topical DAILY left ear 03/02/25 03/02/25 Rx topical ointment #15 grams levothyroxine 137 mcg tablet 137 mcg PO DAILY #30 tabs 03/16/25 Rx Allergies Allergy/AdvReac Type Severity Reaction Status Date / Time amoxicillin Allergy Severe Difficulty Verified 04/22/25 12:35 Breathing egg Allergy Severe STOPPED Verified 04/22/25 12:35 BREATHING Penicillins Allergy Severe Stopped Verified 04/22/25 12:35 Breathing ciprofloxacin Allergy Intermediate Fever Verified 04/22/25 12:35 bass Allergy Unknown Swelling Verified 04/22/25 12:35 tree nut Allergy Unknown Vomiting Verified 04/22/25 12:35 clindamycin AdvReac Nausea and Verified 04/22/25 12:35 Vomiting Vital Signs Vital Signs - 24 hr 04/22/25 12:00 04/22/25 12:16 04/22/25 13:01 Temperature 97.9 F Pulse Rate 80 84 79 Respiratory Rate 16 14 16 Blood Pressure 110/88 93/69 L 93/61 L Pulse Oximetry 100 18 L 18 L Oxygen Delivery Room Air 04/22/25 14:00 04/22/25 14:01 04/22/25 14:25 Temperature Pulse Rate 83 70 72 Respiratory Rate 16 20 16 Blood Pressure 93/72 L 93/72 L 84/68 L Pulse Oximetry 96 98 96 Oxygen Delivery 04/22/25 14:27 04/22/25 14:28 04/22/25 14:45 Temperature Pulse Rate 81 79 76 Respiratory Rate 21 H 20 16 Blood Pressure 80/68 L 86/72 L 80/68 L Pulse Oximetry 98 97 95 Oxygen Delivery 04/22/25 15:45 04/22/25 16:53 04/22/25 17:01 Temperature Pulse Rate 80 76 68 Respiratory Rate 19 22 H 23 H Blood Pressure 88/70 L 109/70 101/84 Pulse Oximetry 93 97 97 Oxygen Delivery 04/22/25 17:31 04/22/25 18:01 04/22/25 18:31 Temperature Pulse Rate 72 72 75 Respiratory Rate 17 20 20 Blood Pressure 100/80 92/69 L 91/76 L Pulse Oximetry 98 97 96 Oxygen Delivery Exam Const: General: comfortable and no acute distress HENMT: Face/Nose/Sinus: Normal nares present Neck: Neck: supple and no JVD Lymphatic: lymphadenopathy not noted Resp: Effort & Inspection: normal respiratory effort Auscultation: clear to auscultation bilaterally Cardio: Rate: regular rate Rhythm: regular rhythm Heart sounds: no gallops, Murmur heart sound present systolic holo and II/ and no rubs GI: Inspection: non-distended GI Palp: Yes Soft to palpation and No Tenderness to palpation present (GI) Auscultation: normal bowel sounds Skin: General skin exam: normal color, no rashes or lesions noted and no erythema Lesions: no lesions noted Rashes: no rashes noted Wounds: no wounds Neuro: General: gait normal Speech: normal speech Sensory Exam: normal sensation Extrem: General: normal to inspection, no edema and no pedal edema Psych: Mental Status: mental status grossly normal Affect: normal affect H&P: Results Labs Labs: Short CBC 04/22/25 Range/Units 12:38 WBC 7.1 (4.5-10.0) K/mm3 Hgb 13.1 (12.0-15.0) g/dL Hct 42.2 (37.0-47.0) % Plt Count 120 L (150-375) k/mm3 BMP 04/22/25 14:49 Sodium 134 L Potassium 4.6 Chloride 94 L Carbon Dioxide 27 BUN 54 H Creatinine 12.29 H Glucose 87 Calcium 10.5 H Cardiac Enzymes 04/22/25 04/22/25 Range/Units 14:49 18:15 Troponin I 0.055 H* 0.077 H* D (0.000-0.034) ng/mL Liver Function 04/22/25 Range/Units 14:49 Total Bilirubin 0.3 (0.2-1.3) mg/dL AST 19 (14-36) U/L ALT 15 (6-35) U/L Alkaline Phosphatase 62 (38-126) U/L Albumin 3.4 L (3.5-5.1) g/dL Assessment and Plan Assessment and plan (1) Palpitations: Code(s): R00.2 - Palpitations Status: Acute Assessment and Plan: * Interrogate pacemaker * 2 EKGs performed in ER. One with normal sinus rhythm the other suggestive of atrial fibrillation * Check magnesium * Telemetry * Trend daily labs and vital signs * Cardiology consult (2) CAD (coronary artery disease): Qualifiers: Associated angina: without angina Coronary Disease-Associated Artery/Lesion type: [place] artery [place] vs. transplanted heart: [place] heart Qualified Code(s): I25.10 - Atherosclerotic heart disease of [place] coronary artery without angina pectoris Code(s): I25.10 - Atherosclerotic heart disease of [place] coronary artery without angina pectoris Status: Chronic Assessment and Plan: * With history of CABG x2, PCI x5 * Troponins are currently elevated and trending up, however patient states within her baseline and due to her renal disease. We will continue to trend x3 * Telemetry * Consult Cardiology (3) Hypertension: Code(s): I10 - Essential (primary) hypertension Status: Chronic Assessment and Plan: * Monitoring trend vital signs. * Continue home medications once confirmed verified. (4) End-stage renal disease (ESRD): Code(s): N18.6 - End stage renal disease Status: Chronic Assessment and Plan: * Secondary to polycystic kidney disease. * On peritoneal dialysis * Consult nephrology (5) Hypothyroidism: Code(s): E03.9 - Hypothyroidism, unspecified Status: Chronic Assessment and Plan: * Continue home dose of Levothyroxine once it has been verified and confirmed. Quality VTE Prophylaxis VTE prophylaxis: pharmacologic ordered Hospitalist MIPS Advance Care Plan I have confirmed that the patient's Advanced Care Plan is present, code status is documented, or surrogate decision maker is listed in patient medical record.: Yes Medication Reconciliation I have utilized all available resources to obtain, update and review the patients current medications (includes all prescriptions, OTC, herbals, c annabis, and nutritional supplements).: Yes
[2025-04-22 21:23] LABS: Magnesium 2.7 mg/dL (1.6-2.3)
--- NOTE | 2025-04-22 22:27 | ECG_ITS ---
Test Date: 2025-04-22 22:50:36 Measurements Intervals [place] Rate: 112 P: 0 CA: 0 QRS: -30 QRSD: 93 T: 131 QT: 337 QTc: 462 Interpretive Statements ATRIAL FIBRILLATION WITH RAPID VENTRICULAR RESPONSE SEPTAL MYOCARDIAL INFARCTION , OF INDETERMINATE AGE [40+ ms Q WAVE IN V1/V2] MODERATE T-WAVE ABNORMALITY, CONSIDER LATERAL ISCHEMIA [-0.1+ mV T-WAVE IN I/aVL/V5/V6] Compared to ECG 04/22/2025 18:29:26 Sinus rhythm no longer present Electronically Signed On 04-23-2025 12:49:09 CDT by Eduin Springer M.D.
[2025-04-22] MEDS: SODIUM CHLORIDE 0.9% IV 500 ML IV CONT (22:30)
--- NOTE | 2025-04-22 22:44 | PC.NURSE ---
Pt tachy at 130s on gambling monitor and hypotensive at 70/50s. ALEXANDRE Mayen made aware. Pt reports her normal BP is 70-80s/50s. ALEXANDRE Mayen VORB 500cc bolus of normal saline. This sql report writer ordered repeat EKG. EKG shown to EDP Dr. Coppola and placed on chart for ALEXANDRE Mayen.
[2025-04-23] VITALS (14 sets, daily range): BP systolic 83–105; BP diastolic 54–67; PULSE 60–130; RESP 12–24; TEMP 36.4–36.8; O2SAT 94–99; BMI 21.4
[2025-04-23 00:08] LABS: Troponin I 0.080 ng/mL (0.000-0.034)
--- NOTE | 2025-04-23 02:46 | ADMGEN ---
This patient, Ginger Marshall, was admitted to IMU Room 209114. Patient/family oriented to hospital policies and general routines including ID bracelet, bed and alarms, visiting hours, pain management, procedures, bathroom and other care routines, personal items, smoking policy, room service/diet, and visiting hours. Information on how to activate the Rapid Response Team has been discussed. Patient/Family are encouraged to report perceived risks to care and to ask questions if they do not understand what they are told or what they should do.
[2025-04-23 03:39] LABS: Troponin I 0.080 ng/mL (0.000-0.034)
[2025-04-23 03:45] LABS: Hematocrit 41.9 % (37.0-47.0); Hemoglobin 13.1 g/dL (12.0-15.0); Immature Granulocyte Percent A 0.5 % (0-0.5); Immature Platelet Fraction Pct 3.1 % (0.9-11.2); Lymphocytes Absolute Auto 0.73 K/mm3 (0.9-3.2); Mean Corpuscular HGB Conc 31.3 g/dl (32-36); Mean Corpuscular Hemoglobin 29.5 pg (26-34); Mean Corpuscular Volume 94.4 fl (80-100); Nucleated Red Blood Cells Absolute Auto 0.000 K/mm3 (0.0-0.012); Nucleated Red Blood Cells Perc 0.0 % (0.0-0.2); Platelet Count Result 112 k/mm3 (150-375); Red Blood Count 4.44 M/mm3 (4.2-5.4); White Blood Count 6.6 K/mm3 (4.5-10.0)
[2025-04-23 03:50] LABS: Alanine Aminotransferase 14 U/L (6-35); Albumin Level 3.1 g/dL (3.5-5.1); Alkaline Phosphatase 69 U/L (38-126); Anion Gap 13 mmol/L (4-12); Aspartate Amino Transferase 16 U/L (14-36); Bilirubin,Total 0.3 mg/dL (0.2-1.3); Blood Urea Nitrogen 59 mg/dL (7-17); Calcium 9.8 mg/dL (8.4-10.2); Carbon Dioxide 23 mmol/L (22-30); Chloride 97 mmol/L (98-107); Estimated CRCL calculation 4 ml/min; Estimated Glomerular Filt Rate 3; Glucose 96 mg/dL (65-110); Magnesium 2.6 mg/dL (1.6-2.3); Potassium 5.0 mmol/L (3.4-5.0); Sodium 133 mmol/L (137-145); Total Protein 5.7 g/dL (6.3-8.2)
[2025-04-23] MEDS: ASPIRIN 81 MG CHEWABLE TABLET PO (08:43)
--- NOTE | 2025-04-23 09:30 | P.CONNP_ITS ---
Assessment and Plan Assessment and plan (1) ESRD (end stage renal disease): Code(s): N18.6 - End stage renal disease Status: Chronic Assessment and Plan: * resume nightly peritoneal dialysis this evening * follow electrolytes, voume status, and clearance (2) Palpitations: Code(s): R00.2 - Palpitations Status: Acute Assessment and Plan: * continue telemetry * pacemaker interrogation * Cardiology consultation (3) CAD (coronary artery disease): Qualifiers: Associated angina: without angina Coronary Disease-Associated Artery/Lesion type: [place] artery [place] vs. transplanted heart: [place] heart Qualified Code(s): I25.10 - Atherosclerotic heart disease of [place] coronary artery without angina pectoris Code(s): I25.10 - Atherosclerotic heart disease of [place] coronary artery without angina pectoris Status: Chronic Assessment and Plan: * known history: * history of CABG x2 * PCI x 5 * troponin trend noted * telemetry * Cardiology to see (4) Anemia: Qualifiers: Anemia type: unspecified type Qualified Code(s): D64.9 - Anemia, unspecified Code(s): D64.9 - Anemia, unspecified Status: Chronic Assessment and Plan: * due to ESRD * H/H supratherapeutic at this time * hold Epogen (5) Hypertension: Code(s): I10 - Essential (primary) hypertension Status: Chronic Assessment and Plan: * reasonable control * follow trend of hemodynamics I will continue to follow the patient with you while he remains hospitalized and make further recommendations as deemed necessary. Thank you for allowing me to participate in the care of this patient. L History of Present Illness Reason for Consult Consult date: 04/23/25 Reason for consult: end stage renal disease Chief Complaint Chief complaint: Palpitation, elevated troponin, History of Present Illness Narrative: The patient is a 51-year-old female with a past medical history as outlined below who presented to [facility] Emergency room with complaints of palpatiations The patient stated that the palpitations started about 5 days ago. Initially, the palpitations were intermittent in nature but over time, they have become more constant. Yesterday, while at work, she had worsening of the palpitations. She denies any chest pain and by the time she came to the emergency room, she has not noted any further palpitations either. She is currently waiting to have a Holter monitor placed by her outpatient [employer] and it is due to be placed on Saturday. All of patient's medical care is performed usually in [facility]. As mentioned, give her worsening palpitations noted yesterday while at work, she came to the ER for further assessment. In the emergency room workup was performed that shows stable normal vital signs, initial EKG showing normal sinus rhythm 75 beats per minute, subsequent EKG suggested AFib at 68 beats per minute. Patient is noted to have a [employer] pacemaker that was last interrogated in October 2024. Her metabolic panel is remarkable for BUN and creatinine of 54 and 12.29 respectively, glucose of 87, CBC is unremarkable, calcium is 10.5, TSH is normal at 3.93. Troponins marginally elevated at 0.055 increasing to 0.077. Coags are normal. Patient being admitted in the current setting for complete cardiac rule out and monitoring of rhythm overnight. Since her admission, she appears to be feeling reasonably well with no further recurrence of the palpitations that resulted in her coming to the ER. Renal consultation was requested due to her end-stage renal disease. The patient normally follows with Dr. Cricket Escalante for management of her peritoneal dialysis that she does through [facility]. She has been on peritoneal dialysis for the last 3 years or so and the etiology of her end-stage renal disease is that of adult polycystic kidney disease. From a dialysis perspective, she is compliant with her treatments and usually does not have any issues or problems with fluid retention/volume overload. Her blood pressure is always on the lower side chronically as well. Unfortunately,, she did not receive her dialysis on the day of admission due to her being in the emergency room and the lateness of her admission. Currently, at the time my evaluation, the patient does not appear to be in acute distress. Review of Systems 2 Review of Systems: As per HPI. 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 She underwent left thoracotomy, chemotherapy and radiation. Aortic stenosis Bicuspid aortic valve. Status post aortic valve replacement on 02/11/2019 that resulted in perivalvular regurgitation. Asthma Surgical History Surgical History H/O single vessel coronary artery bypass Saphenous vein graft to LAD with PCI stent to the graft February 2022 with InStent restenoses 07/21/2022 with PCI and laser arthrectomy in placement id DESI x1 with EF postprocedure 50% and moderate aortic regurg S/P colonoscopic polypectomy 2020 Hx of heart artery stent History of aortic valve replacement History of section History of hysterectomy Pacemaker Patient developed bradycardia with sick sinus syndrome requiring pacemaker on 05/15/2019. History of thyroidectomy Family History Family History Father Hypertension Family history of coronary artery disease, Onset Age: 57 Mother Hypertension Cerebrovascular accident Family history of malignant neoplasm Family history of kidney disease Grandparent Family history of kidney disease Social History Social History Social History: Surrogate medical decision maker: She states that both her children her surrogate decision maker. Code status: Full code. Caffeine-coffee Smoking packs per day: 1 Smoking cigarettes per day: 20.0 Years smoked: 25 Smoking pack-years: 25.00 Smoking status: Former smoker Tobacco type: cigarettes Second hand tobacco smoke exposure: Yes Smoking end date: 04/01/12 Additional smoking assessment comments: quit vaping 05/2024 Alcohol intake: never Substance use: former Substance use type: marijuana Other substance usage details: Years ago Do You Feel Safe in your Home?: Yes Lack of Transportation: No Lack of Food: Never True Current Housing: I Have Housing Concerned About Future Housing: No Difficulty Paying Gas/Electric Bills: No Difficulty Paying for Meds: No Currently Unemployed: No Education: High School Diploma/GED Difficulty w/ Childcare or Family Care: No Living arrangements: with family Additional living arrangements comments: She lives alone. 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 Spiritual care concerns: No Agree to blood products: Yes Meds Home Medications and Allergies Home Medications ?Medication ?Instructions ?Recorded ?Confirmed ?Type clopidogrel 75 mg tablet (Plavix) 75 mg PO DAILY 08/01/22 04/23/25 History gentamicin 0.1 % topical cream 1 applic topical DAILY 08/01/22 04/23/25 History loratadine 10 mg tablet (Claritin) 10 mg PO DAILY PRN Allergy Symptoms 08/01/22 04/23/25 History multivitamin 1 tablet PO DAILY 08/01/22 04/23/25 History nitroglycerin 0.4 mg sublingual 0.4 mg sublingual Q5M PRN Pain 08/01/22 04/23/25 History tablet gabapentin 100 mg capsule 100 mg PO WEEKLY 08/18/24 04/23/25 History ergocalciferol (vitamin D2) 25,000 See Rx Instructions .Route .COMPLEX 09/24/24 04/23/25 History unit capsule calcitriol 0.25 mcg capsule 0.25 mcg PO DAILY 03/02/25 04/23/25 History evolocumab 140 mg/mL subcutaneous 140 mg subcut ONCE 03/02/25 04/23/25 History pen injector (Flo Lainez) ferric citrate 210 mg iron tablet 210 mg PO BID 03/02/25 04/23/25 History (Auryxia) triamcinolone acetonide 0.5 % 1 applic topical DAILY left ear 03/02/25 04/23/25 Rx topical ointment #15 grams levothyroxine 137 mcg tablet 137 mcg PO DAILY #30 tabs 03/16/25 04/23/25 Rx acetaminophen 325 mg tablet 650 mg (2 x 325 mg) PO Q4H PRN 04/24/25 Rx Mild Pain (1-3) Or Fever #60 tabs apixaban 2.5 mg tablet (Eliquis) 2.5 mg PO Q12HR #60 tabs 04/24/25 Rx albuterol sulfate 90 mcg/actuation 2 puff inhalation Q4-6H PRN 04/27/25 Rx aerosol inhaler (ProAir HFA) shortness of breath or wheezing #18 grams hydrocodone 5 mg-acetaminophen 325 1 tablet PO Q8H PRN pain #14 tabs 05/25/25 Rx mg tablet Allergies Allergy/AdvReac Type Severity Reaction Status Date / Time amoxicillin Allergy Severe Difficulty Verified 05/25/25 01:47 Breathing egg Allergy Severe STOPPED Verified 05/25/25 01:47 BREATHING Penicillins Allergy Severe Stopped Verified 05/25/25 01:47 Breathing ciprofloxacin Allergy Intermediate Fever Verified 05/25/25 01:47 bass Allergy Unknown Swelling Verified 05/25/25 01:47 tree nut Allergy Unknown Vomiting Verified 05/25/25 01:47 clindamycin AdvReac Nausea and Verified 05/25/25 01:47 Vomiting Vital Signs Vital Signs Temp Pulse Resp BP Pulse Ox O2 Del Method 04/23/25 08:00 74 04/23/25 08:00 75 Room Air 04/23/25 08:00 97.5 F L 66 24 H 85/56 L 98 04/23/25 06:00 77 04/23/25 04:00 72 04/23/25 04:00 119 H 19 97 Room Air 04/23/25 04:00 98.1 F 119 H 19 96/54 L 97 04/23/25 02:00 79 04/23/25 01:15 74 04/23/25 01:15 Room Air 04/23/25 01:15 97.7 F 87 16 95/62 L 96 04/23/25 00:01 130 H 22 H 83/67 L 94 04/22/25 23:31 68 21 H 101/82 96 04/22/25 23:01 72 18 95/74 L 94 04/22/25 22:56 135 H 04/22/25 22:44 80 16 84/69 L 95 04/22/25 22:30 68 13 84/69 L 95 04/22/25 22:07 89 14 71/61 L 93 04/22/25 21:20 72 14 97/78 L 97 04/22/25 19:01 72 21 H 96/78 L 95 04/22/25 18:31 75 20 91/76 L 96 04/22/25 18:01 72 20 92/69 L 97 04/22/25 17:31 72 17 100/80 98 04/22/25 17:01 68 23 H 101/84 97 04/22/25 16:53 76 22 H 109/70 97 Exam 2 Narrative: GENERAL APPEARANCE: well developed well nourished female in no acute distress HEENT: normocephalic, atraumatic, normal conjunctiva and sclera, nares patient NECK: no lymphadenopathy, thyromegaly, or JVD MOUTH: normal lips, teeth, and gums CARDIOVASCULAR: RRR, normal S1 and S2, + murmur RESPIRATORY: clear to auscultation ABDOMEN: soft, nontender, nondistended, positive bowel sounds present EXTREMITIES: no evidence of cyanosis, clubbing, or edema NEUROLOGICAL: alert and oriented x 3; CN II - XII intact bilaterally; no focal deficits noted Results Lab Results 04/24/25 05:27 04/24/25 15:02 Lab results: Most recent lab results Calcium 9.8 mg/dL (8.4-10.2) 04/23/25 02:20 Phosphorus 9.7 mg/dL (2.5-4.5) H 04/23/25 02:20 Magnesium 2.6 mg/dL (1.6-2.3) H 04/23/25 02:20
--- NOTE | 2025-04-23 10:04 | PM.IMPN ---
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 transplanted heart: [place] heart Qualified Code(s): I25.10 - Atherosclerotic heart disease of [place] coronary artery without angina pectoris Code(s): I25.10 - Atherosclerotic heart disease of [place] coronary artery without angina pectoris Status: Chronic Assessment and Plan: Troponin flat, likely due to ESRD on PD (3) Hypertension: Code(s): I10 - Essential (primary) hypertension Status: Chronic Assessment and Plan: Chronically hypotensive due to CM (4) End-stage renal disease (ESRD): Code(s): N18.6 - End stage renal disease Status: Chronic Assessment and Plan: Secondary to polycystic kidney disease. On peritoneal dialysis Nephrology consultation pending (5) Hypothyroidism: Code(s): E03.9 - Hypothyroidism, unspecified Status: Chronic Assessment and Plan: Continue home dose of Levothyroxine once it has been verified and confirmed TSH WNL 04/22 Subjective Date/time seen: 04/23/25 10:04 Interval history: 54-year-old female with ischemic cardiomyopathy and end-stage renal disease is status post pacemaker placement and bioprosthetic aortic valve replacement x2. She was admitted 04/22 due to palpitations that were intermittent and again 04/21. She denied chest pain. Denies shortness of breath. Denied GI or issues. Denied abnormal bleeding. Denied syncope or presyncope. She had some palpitations last night but none today. Review of Systems Review of Systems: All systems reviewed & are unremarkable except as noted in HPI and below Exam Narrative: HEENT: PERRL, sclerae nonicteric, pharyngeal mucosa pink and intact NECK: No JVD or thyromegaly CHEST: Clear to auscultation. Normal effort HEART: NL S1/S2, regular with occa, no murmur ABDOMEN: BS+, soft, nontender, no mass, no bruits EXTREMITIES: No cyanosis, edema, or clubbing NEUROLOGIC: CN intact and symmetric to inspection MUSCULOSKELETAL: Tone and strength symmetric PSYCH: Alert. Oriented to person, place, and time Objective Data Vital Signs Vital Signs: Vital Signs - 24 hr 04/22/25 12:00 04/22/25 12:16 04/22/25 13:01 Temperature 97.9 F Pulse Rate 80 84 79 Respiratory Rate 16 14 16 Blood Pressure 110/88 93/69 L 93/61 L Pulse Oximetry 100 18 L 18 L Oxygen Delivery Room Air 04/22/25 14:00 04/22/25 14:01 04/22/25 14:25 Temperature Pulse Rate 83 70 72 Respiratory Rate 16 20 16 Blood Pressure 93/72 L 93/72 L 84/68 L Pulse Oximetry 96 98 96 Oxygen Delivery 04/22/25 14:27 04/22/25 14:28 04/22/25 14:45 Temperature Pulse Rate 81 79 76 Respiratory Rate 21 H 20 16 Blood Pressure 80/68 L 86/72 L 80/68 L Pulse Oximetry 98 97 95 Oxygen Delivery 04/22/25 15:45 04/22/25 16:53 04/22/25 17:01 Temperature Pulse Rate 80 76 68 Respiratory Rate 19 22 H 23 H Blood Pressure 88/70 L 109/70 101/84 Pulse Oximetry 93 97 97 Oxygen Delivery 04/22/25 17:31 04/22/25 18:01 04/22/25 18:31 Temperature Pulse Rate 72 72 75 Respiratory Rate 17 20 20 Blood Pressure 100/80 92/69 L 91/76 L Pulse Oximetry 98 97 96 Oxygen Delivery 04/22/25 19:01 04/22/25 21:20 04/22/25 22:07 Temperature Pulse Rate 72 72 89 Respiratory Rate 21 H 14 14 Blood Pressure 96/78 L 97/78 L 71/61 L Pulse Oximetry 95 97 93 Oxygen Delivery 04/22/25 22:30 04/22/25 22:44 04/22/25 22:56 Temperature Pulse Rate 68 80 135 H Respiratory Rate 13 16 Blood Pressure 84/69 L 84/69 L Pulse Oximetry 95 95 Oxygen Delivery 04/22/25 23:01 04/22/25 23:31 04/23/25 00:01 Temperature Pulse Rate 72 68 130 H Respiratory Rate 18 21 H 22 H Blood Pressure 95/74 L 101/82 83/67 L Pulse Oximetry 94 96 94 Oxygen Delivery 04/23/25 01:15 04/23/25 01:15 04/23/25 01:15 Temperature 97.7 F Pulse Rate 87 74 Respiratory Rate 16 Blood Pressure 95/62 L Pulse Oximetry 96 Oxygen Delivery Room Air 04/23/25 02:00 04/23/25 04:00 04/23/25 04:00 Temperature 98.1 F Pulse Rate 79 119 H 119 H Respiratory Rate 19 19 Blood Pressure 96/54 L Pulse Oximetry 97 97 Oxygen Delivery Room Air 04/23/25 04:00 04/23/25 06:00 04/23/25 08:00 Temperature 97.5 F L Pulse Rate 72 77 66 Respiratory Rate 24 H Blood Pressure 85/56 L Pulse Oximetry 98 Oxygen Delivery Intake/Output Intake/Output: Intake & Output 04/20/25 04/21/25 04/22/25 04/23/25 23:59 23:59 23:59 23:59 Intake Total 540 Balance 540 Meds/Results Medications: Active Medications Generic Name Dose Route Start Last Admin Trade Name Freq PRN Reason Stop Dose Admin Acetaminophen 650 mg 04/22/25 19:37 Acetaminophen 325 Mg Tablet PO Q4H PRN Mild Pain (1-3) or Fever Albuterol 2 puff 04/23/25 09:57 Albuterol Sulfate (*Sp) Aerosol 1 Puff INHALATION Q4-6H PRN shortness of breath or wheezing Aspirin 81 mg 04/23/25 08:00 04/23/25 08:43 Aspirin 81 Mg Chewable Tablet PO 81 mg DAILY@0800 [facility] Administration Aspirin 81 mg 04/24/25 09:00 Aspirin 81 Mg Enteric Tablet PO DAILY [facility] Calcitriol 0.25 mcg 04/24/25 09:00 Calcitriol 0.25 Mcg Capsule PO DAILY [facility] Clopidogrel Bisulfate 75 mg 04/24/25 09:00 Clopidogrel Bisulfate 75 Mg Tablet PO DAILY [facility] Gabapentin 100 mg 04/30/25 09:00 Gabapentin 100 Mg Capsule PO WEEKLY [facility] Gentamicin Sulfate 1 applic 04/24/25 09:00 Gentamicin Sulfate 0.1% Cr 15 Gm Tube TOPICAL DAILY [facility] Heparin Sodium (Porcine) 5,000 units 04/22/25 21:00 04/23/25 08:43 Heparin Sodium 5,000 Units/Ml Vial SUB-Q 5,000 units Q12HR [facility] Administration Loratadine 10 mg 04/23/25 09:57 Loratadine 10 Mg Tablet PO DAILY PRN Allergy Symptoms Multivitamins Therapeutic 1 tablet 04/24/25 09:00 Multivitamins Therapeutic Tab (*Bkc) PO DAILY [facility] Nitroglycerin 0.4 mg 04/23/25 09:57 Nitroglycerin Sl 0.4 Mg Tablet SUBLINGUAL Q5M PRN Pain Non-Formulary Medication 0 unit 04/23/25 10:00 Ergocalciferol (Vitamin D2) .ROUTE 05/23/25 09:59 .COMPLEX TRAV Non-Formulary Medication 140 mg 04/23/25 10:00 Evolocumab [Repatha Sureclick] SUB-Q 05/23/25 09:59 ONCE TRAV Non-Formulary Medication 210 mg 04/23/25 17:00 Ferric Citrate [Auryxia] PO 05/23/25 16:59 BID TRAV Non-Formulary Medication 137 mcg 04/24/25 09:00 Levothyroxine PO 05/24/25 08:59 DAILY [facility] Triamcinolone Acetonide 1 applic 04/24/25 09:00 Triamcinolone Acet 0.5% Oint 15 Gm Tube TOPICAL DAILY [facility] Radiology Results: ITS Impressions Chest X-Ray 04/22/25 13:46 IMPRESSION: Small left-sided pleural effusion, improved from previous examination. Wedge shaped opacification of the left upper lobe, an interval change from prior. The remainder of the lungs are clear. Labs Labs: Laboratory Results - last 24 hr 04/22/25 04/22/25 04/22/25 12:38 14:49 18:15 WBC 7.1 RBC 4.51 Hgb 13.1 Hct 42.2 MCV 93.6 MCH 29.0 MCHC 31.0 L RDW 17.2 H Plt Count 120 L MPV 10.6 H Immature Gran % (Auto) 0.1 Neut % (Auto) 76.0 H Lymph % (Auto) 12.8 L [place] % (Auto) 8.0 Eos % (Auto) 2.7 Baso % (Auto) 0.4 Lymph # (Auto) 0.91 [place] # (Auto) 0.6 Eos # (Auto) 0.2 Baso # (Auto) 0.0 Abs Immat Gran (auto) 0.01 Absolute Neuts (auto) 5.4 Absolute Nucleated RBC 0.000 Nucleated RBC % 0.0 % Immature Plt Fraction 3.0 PT 13.6 INR 1.0 APTT 27.7 Sodium 134 L Potassium 4.6 Chloride 94 L Carbon Dioxide 27 Anion Gap 13 H BUN 54 H Creatinine 12.29 H Estim Creat Clear Calc 4 Estimated GFR 3 L Glucose 87 Calcium 10.5 H Phosphorus Magnesium 2.7 H Total Bilirubin 0.3 AST 19 ALT 15 Alkaline Phosphatase 62 Troponin I 0.055 H* 0.077 H* D Total Protein 6.3 Albumin 3.4 L Lipase 67 TSH 3.930 04/22/25 04/23/25 04/23/25 23:11 02:19 02:20 WBC 6.6 RBC 4.44 Hgb 13.1 Hct 41.9 MCV 94.4 MCH 29.5 MCHC 31.3 L RDW 16.9 H Plt Count 112 L MPV 11.5 H Immature Gran % (Auto) 0.5 Neut % (Auto) 78.9 H Lymph % (Auto) 11.0 L [place] % (Auto) 6.5 Eos % (Auto) 2.6 Baso % (Auto) 0.5 Lymph # (Auto) 0.73 L [place] # (Auto) 0.4 Eos # (Auto) 0.2 Baso # (Auto) 0.0 Abs Immat Gran (auto) 0.03 Absolute Neuts (auto) 5.2 Absolute Nucleated RBC 0.000 Nucleated RBC % 0.0 % Immature Plt Fraction 3.1 PT INR APTT Sodium 133 L Potassium 5.0 Chloride 97 L Carbon Dioxide 23 Anion Gap 13 H BUN 59 H Creatinine 12.77 H Estim Creat Clear Calc 4 Estimated GFR 3 L Glucose 96 Calcium 9.8 Phosphorus 9.7 H Magnesium 2.6 H Total Bilirubin 0.3 AST 16 ALT 14 Alkaline Phosphatase 69 Troponin I 0.080 H* 0.080 H* Total Protein 5.7 L Albumin 3.1 L Lipase TSH
[2025-04-23] MEDS: LEVOTHYROXINE SODIUM 25 MCG TABLET PO (11:27)
[2025-04-23] MEDS: CLOPIDOGREL BISULFATE 75 MG TABLET PO (11:27)
[2025-04-23] MEDS: LEVOTHYROXINE SODIUM 112 MCG TABLET PO (11:27)
[2025-04-23] MEDS: MULTIVITAMINS THERAPEUTIC TAB (*BKC) 1 TABLET PO (11:27)
--- NOTE | 2025-04-23 12:12 | P.CONCA_ITS ---
Assessment and Plan Assessment and plan (1) Aortic stenosis: Qualifiers: Cardiac valve disease etiology: nonrheumatic Qualified Code(s): I35.0 - Nonrheumatic aortic (valve) stenosis Code(s): I35.0 - Nonrheumatic aortic (valve) stenosis Status: Acute Plan Proximal atrial fibrillation Valvular heart disease status Post TAVR 2023 and redo valve in valve TAVR 324 Mild calcific mitral stenosis Moderate to severe tricuspid regurgitation History of dual-chamber pacemaker Coronary artery disease history of CABG with PCI to graft the LAD and PCI to left main and LAD with InStent restenosis and recurrent PCI 2024 End-stage renal disease on hemodialysis Hypothyroidism Interrogation of dual-chamber pacemaker revealed device working properly and the current episode of atrial fibrillation 1% of time And metoprolol 12.5 mg b.i.d. Transthoracic echocardiogram for evaluation of the aortic valve bioprosthesis Start oral anticoagulation Eliquis 5 mg b.i.d. Continue Plavix 75 mg daily DC aspirin 81 mg daily History of Present Illness History of Present Illness Consult date/time: 04/23/25 12:12 Reason For Visit: Palpitation, elevated troponin, Narrative: 54-year-old female patient presents to the hospital with palpitation has been present for last 5 days. Allergies been intermittent lasting for minutes to hours. Last 24 hours has been consistent. She had no worsening dizziness. No syncope. Patient's history of coronary disease prior CABG and redo aortic valve replacement. She has history of small annulus patient is TAVR 20 S3 valve May 21, 2024. Mild valvar leak. Mild calcific mitral stenosis. Coronary artery disease with history of PCI to the graft to LAD and PCI from left main into the ED with severe gastroparesis and recurrent stent. 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 She underwent left thoracotomy, chemotherapy and radiation. Aortic stenosis Bicuspid aortic valve. Status post aortic valve replacement on 02/11/2019 that resulted in perivalvular regurgitation. Asthma Surgical History Surgical History H/O single vessel coronary artery bypass Saphenous vein graft to LAD with PCI stent to the graft February 2022 with InStent restenoses 07/21/2022 with PCI and laser arthrectomy in placement id DESI x1 with EF postprocedure 50% and moderate aortic regurg S/P colonoscopic polypectomy 2020 Hx of heart artery stent History of aortic valve replacement History of section History of hysterectomy Pacemaker Patient developed bradycardia with sick sinus syndrome requiring pacemaker on 05/15/2019. History of thyroidectomy Family History Family History Father Hypertension Family history of coronary artery disease, Onset Age: 57 Mother Hypertension Cerebrovascular accident Family history of malignant neoplasm Family history of kidney disease Grandparent Family history of kidney disease Social History Social History Social History: Surrogate medical decision maker: She states that both her children her surrogate decision maker. Code status: Full code. Caffeine-coffee Smoking packs per day: 1 Smoking cigarettes per day: 20.0 Years smoked: 25 Smoking pack-years: 25.00 Smoking status: Former smoker Tobacco type: cigarettes Second hand tobacco smoke exposure: Yes Smoking end date: 04/01/12 Additional smoking assessment comments: quit vaping 05/2024 Alcohol intake: never Substance use: former Substance use type: marijuana Other substance usage details: Years ago Do You Feel Safe in your Home?: Yes Lack of Transportation: No Lack of Food: Never True Current Housing: I Have Housing Concerned About Future Housing: No Difficulty Paying Gas/Electric Bills: No Difficulty Paying for Meds: No Currently Unemployed: No Education: High School Diploma/GED Difficulty w/ Childcare or Family Care: No Living arrangements: with family Additional living arrangements comments: She lives alone. 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 Spiritual care concerns: No Agree to blood products: Yes Meds Home Medications and Allergies Home Medications ?Medication ?Instructions ?Recorded ?Confirmed ?Type aspirin 81 mg tablet,delayed 81 mg PO DAILY 08/27/19 04/23/25 History release clopidogrel 75 mg tablet (Plavix) 75 mg PO DAILY 08/01/22 04/23/25 History gentamicin 0.1 % topical cream 1 applic topical DAILY 08/01/22 04/23/25 History loratadine 10 mg tablet (Claritin) 10 mg PO DAILY PRN Allergy Symptoms 08/01/22 04/23/25 History multivitamin 1 tablet PO DAILY 08/01/22 04/23/25 History nitroglycerin 0.4 mg sublingual 0.4 mg sublingual Q5M PRN Pain 08/01/22 04/23/25 History tablet albuterol sulfate 90 mcg/actuation 2 puff inhalation Q4-6H PRN 12/17/23 04/23/25 Rx aerosol inhaler (ProAir HFA) shortness of breath or wheezing #18 grams gabapentin 100 mg capsule 100 mg PO WEEKLY 08/18/24 04/23/25 History ergocalciferol (vitamin D2) 25,000 See Rx Instructions .Route .COMPLEX 09/24/24 04/23/25 History unit capsule calcitriol 0.25 mcg capsule 0.25 mcg PO DAILY 03/02/25 04/23/25 History evolocumab 140 mg/mL subcutaneous 140 mg subcut ONCE 03/02/25 04/23/25 History pen injector (Repatha SureNishick) ferric citrate 210 mg iron tablet 210 mg PO BID 03/02/25 04/23/25 History (Auryxia) triamcinolone acetonide 0.5 % 1 applic topical DAILY left ear 03/02/25 04/23/25 Rx topical ointment #15 grams levothyroxine 137 mcg tablet 137 mcg PO DAILY #30 tabs 03/16/25 04/23/25 Rx Allergies Allergy/AdvReac Type Severity Reaction Status Date / Time amoxicillin Allergy Severe Difficulty Verified 04/22/25 12:35 Breathing egg Allergy Severe STOPPED Verified 04/22/25 12:35 BREATHING Penicillins Allergy Severe Stopped Verified 04/22/25 12:35 Breathing ciprofloxacin Allergy Intermediate Fever Verified 04/22/25 12:35 bass Allergy Unknown Swelling Verified 04/22/25 12:35 tree nut Allergy Unknown Vomiting Verified 04/22/25 12:35 clindamycin AdvReac Nausea and Verified 04/22/25 12:35 Vomiting Vital Signs Vital Signs - 24 hr 04/22/25 12:16 04/22/25 13:01 04/22/25 14:00 Temperature Pulse Rate 84 79 83 Respiratory Rate 14 16 16 Blood Pressure 93/69 L 93/61 L 93/72 L Pulse Oximetry 18 L 18 L 96 Oxygen Delivery 04/22/25 14:01 04/22/25 14:25 04/22/25 14:27 Temperature Pulse Rate 70 72 81 Respiratory Rate 20 16 21 H Blood Pressure 93/72 L 84/68 L 80/68 L Pulse Oximetry 98 96 98 Oxygen Delivery 04/22/25 14:28 04/22/25 14:45 04/22/25 15:45 Temperature Pulse Rate 79 76 80 Respiratory Rate 20 16 19 Blood Pressure 86/72 L 80/68 L 88/70 L Pulse Oximetry 97 95 93 Oxygen Delivery 04/22/25 16:53 04/22/25 17:01 04/22/25 17:31 Temperature Pulse Rate 76 68 72 Respiratory Rate 22 H 23 H 17 Blood Pressure 109/70 101/84 100/80 Pulse Oximetry 97 97 98 Oxygen Delivery 04/22/25 18:01 04/22/25 18:31 04/22/25 19:01 Temperature Pulse Rate 72 75 72 Respiratory Rate 20 20 21 H Blood Pressure 92/69 L 91/76 L 96/78 L Pulse Oximetry 97 96 95 Oxygen Delivery 04/22/25 21:20 04/22/25 22:07 04/22/25 22:30 Temperature Pulse Rate 72 89 68 Respiratory Rate 14 14 13 Blood Pressure 97/78 L 71/61 L 84/69 L Pulse Oximetry 97 93 95 Oxygen Delivery 04/22/25 22:44 04/22/25 22:56 04/22/25 23:01 Temperature Pulse Rate 80 135 H 72 Respiratory Rate 16 18 Blood Pressure 84/69 L 95/74 L Pulse Oximetry 95 94 Oxygen Delivery 04/22/25 23:31 04/23/25 00:01 04/23/25 01:15 Temperature 36.5 C Pulse Rate 68 130 H 87 Respiratory Rate 21 H 22 H 16 Blood Pressure 101/82 83/67 L 95/62 L Pulse Oximetry 96 94 96 Oxygen Delivery 04/23/25 01:15 04/23/25 01:15 04/23/25 02:00 Temperature Pulse Rate 74 79 Respiratory Rate Blood Pressure Pulse Oximetry Oxygen Delivery Room Air 04/23/25 04:00 04/23/25 04:00 04/23/25 04:00 Temperature 36.7 C Pulse Rate 119 H 119 H 72 Respiratory Rate 19 19 Blood Pressure 96/54 L Pulse Oximetry 97 97 Oxygen Delivery Room Air 04/23/25 06:00 04/23/25 08:00 04/23/25 08:00 Temperature 36.4 C L Pulse Rate 77 66 75 Respiratory Rate 24 H Blood Pressure 85/56 L Pulse Oximetry 98 Oxygen Delivery Room Air 04/23/25 08:00 04/23/25 10:00 04/23/25 11:47 Temperature 36.6 C Pulse Rate 74 66 90 Respiratory Rate 16 Blood Pressure 94/54 L Pulse Oximetry 99 Oxygen Delivery 04/23/25 12:00 04/23/25 12:00 Temperature Pulse Rate 90 90 Respiratory Rate Blood Pressure Pulse Oximetry Oxygen Delivery Room Air Exam 2 Narrative: General appearance: Well-developed, well-nourished Skin: Normal color Head: Normocephalic, nontraumatic Eyes: Clear conjunctiva ENT: Oropharynx normal, ears normal, nose normal Neck: Supple, nontender Chest and respiratory: Airway patent, no respiratory distress, no accessory muscle use Heart: Regular rate/rhythm ejection systolic murmur at the base and a diastolic murmur Abdomen: Soft, nontender, no organomegaly, quiet bowel sounds, peritoneal catheter in place Vascular: Normal peripheral pulses, normal capillary refill. Musculoskeletal: Scoliosis Neurologic: Alert and oriented ?3, INSTRUMENT SHOP SUPERVISOR is normal as tested, no gross motor deficit Results Labs and Meds 04/23/25 02:20 04/23/25 02:20 Lab results: Cardiac Enzymes 04/22/25 04/22/25 04/22/25 Range/Units 14:49 18:15 23:11 AST 19 (14-36) U/L Troponin I 0.055 H* 0.077 H* D 0.080 H* (0.000-0.034) ng/mL 04/23/25 04/23/25 Range/Units 02:19 02:20 AST 16 (14-36) U/L Troponin I 0.080 H* (0.000-0.034) ng/mL Coagulation 04/22/25 Range/Units 12:38 PT 13.6 (11.1-14.7) Seconds APTT 27.7 (22.3-36.8) Seconds CBC 04/22/25 04/23/25 Range/Units 12:38 02:20 WBC 7.1 6.6 (4.5-10.0) K/mm3 RBC 4.51 4.44 (4.2-5.4) M/mm3 Hgb 13.1 13.1 (12.0-15.0) g/dL Hct 42.2 41.9 (37.0-47.0) % Plt Count 120 L 112 L (150-375) k/mm3 Lymph # (Auto) 0.91 0.73 L (0.9-3.2) K/mm3 [place] # (Auto) 0.6 0.4 (0.1-0.6) K/mm3 Eos # (Auto) 0.2 0.2 (0-0.3) K/mm3 Baso # (Auto) 0.0 0.0 (0.0-0.1) K/mm3 Comprehensive Metabolic Panel 04/22/25 04/23/25 Range/Units 14:49 02:20 Sodium 134 L 133 L (137-145) mmol/L Potassium 4.6 5.0 (3.4-5.0) mmol/L Chloride 94 L 97 L (98-107) mmol/L Carbon Dioxide 27 23 (22-30) mmol/L BUN 54 H 59 H (7-17) mg/dL Creatinine 12.29 H 12.77 H (0.7-1.0) mg/dL Glucose 87 96 (65-110) mg/dL Calcium 10.5 H 9.8 (8.4-10.2) mg/dL AST 19 16 (14-36) U/L ALT 15 14 (6-35) U/L Alkaline Phosphatase 62 69 (38-126) U/L Total Protein 6.3 5.7 L (6.3-8.2) g/dL Albumin 3.4 L 3.1 L (3.5-5.1) g/dL Intake and Output 04/22/25 04/23/25 04/23/25 23:59 07:59 15:59 Intake Total 300 240 Balance 300 240 Intake: Oral 300 240 Other: # Unmeasured Voids 2 Patient Weight 04/23/25 23:59 Weight 58.9 kg
[2025-04-23] MEDS: GABAPENTIN 100 MG CAPSULE PO (21:39)
[2025-04-23] MEDS: APIXABAN 2.5 MG TABLET PO (21:40)
[2025-04-24] VITALS (9 sets, daily range): BP systolic 84–96; BP diastolic 47–66; PULSE 63–125; RESP 16–20; TEMP 36.3–36.6; O2SAT 93–100
--- NOTE | 2025-04-24 | ECHO_ITS ---
Patient Info Name: Ginger Marshall Age: 54 years : 1970 Gender: Female Ht: 64 in Wt: 134 lbs BSA: 1.66 m2 HR: 81 bpm BP: 84 / 63 mmHg Technical Quality: Poor Exam Date: 04/24/2025 10:54 AM Patient Status: I Admit Date: 04/22/2025 Exam Type: CA echo dop color flow w con Complete two-dimensional, color flow and Doppler transthoracic echocardiogram is performed with contrast to opacify the left ventricle and to improve the deliniation of the left ventricle endocardial borders. Staff Referring Physician: Elan Conway MD Ammunition Storage Superintendent: Deana Schwarz Attending Provider: Ramin Hart MD Contrast/Agitated Saline Contrast/Ag. Saline: Definity Amount: 2.00 ml Administered By: Deana Schwarz Existing IV Access: Yes IV Access Condition: patent with no signs of infiltration Reason for Poor Study: poor echocardiographic windows Summary 1. Left ventricular systolic function is normal, estimated at 50-55. Anteroseptum hypokinesis. 2. The left ventricular diastolic function is abnormal. 3. Right ventricular chamber dimension is severely enlarged. 4. Linear artifact in right ventricle suggestive of catheter(s), pacemaker lead(s), or ICD lead(s). 5. prosthetic aortic valve is not well visualized. Mean gradient across aortic valve is 17 mmHg. 6. There is mild regurgitation of the prosthetic aortic valve. 7. There is moderate mitral valve regurgitation.Mild to moderate mitral stenosis. Mean gradient 7mmHg. 8. There is severe mitral valve calcification. 9. There is moderate to severe tricuspid valve regurgitation. 10. Severe pulmonary hypertension, estimated pulmonary arterial systolic pressure is 73 mmHg. 11. There is mild pulmonic regurgitation. Left Ventricle Left ventricular chamber dimension is normal. Left ventricular systolic function is normal, estimated at 50-55. Anteroseptum hypokinesis. There is no increased left ventricular wall thickness. Left ventricular septal wall motion is normal. The left ventricular diastolic function is abnormal. Right Ventricle Right ventricular chamber dimension is severely enlarged. Right ventricular systolic function is normal. Linear artifact in right ventricle suggestive of catheter(s), pacemaker lead(s), or ICD lead(s). Left Atria Left atrial chamber dimension is normal. Right Atria Right atrial chamber dimension is normal. Aortic Valve prosthetic aortic valve is not well visualized. Mean gradient across aortic valve is 17 mmHg. There is mild regurgitation of the prosthetic aortic valve. Pulmonic Valve The pulmonic valve is normal. There is no pulmonic valve stenosis. There is mild pulmonic regurgitation. Mitral Valve The mitral valve has normal leaflets. There is no mitral valve stenosis. There is moderate mitral valve regurgitation.Mild to moderate mitral stenosis. Mean gradient 7mmHg. There is severe mitral valve calcification. Tricuspid Valve The tricuspid valve leaflets are normal. There is no significant tricuspid valve stenosis. There is moderate to severe tricuspid valve regurgitation. Severe pulmonary hypertension, estimated pulmonary arterial systolic pressure is 73 mmHg. Pericardium/Pleural The pericardium appears normal. There is no pericardial effusion. Inferior Vena Cava Normal inferior vena cava with >50% collapse upon inspiration consistent with elevated right atrial pressure, 10 mmHg. Aorta The aortic root size at the sinus of Valsalva is normal. The prox ascending aorta size is normal. Left Ventricular Outflow Tract Name Value Normal LVOT Doppler LVOT Peak Velocity 276 cm/s LVOT Peak Gradient 23 mmHg LVOT Mean Gradient 14 mmHg LVOT VTI 54 cm LVOT VTI/AV VTI Ratio 0.8 Pulmonic Valve Name Value Normal RVOT Doppler RVOT Peak Velocity 89 cm/s RVOT Peak Gradient 3 mmHg PV Doppler PV Peak Velocity 159 cm/s PV Peak Gradient 10 mmHg Mitral Valve Name Value Normal MV Doppler MV Peak Gradient 23 mmHg MV Mean Gradient 7 mmHg MV Regurgitation Doppler MR Peak Gradient 112 mmHg MV Diastolic Function MV E Peak Velocity 202 cm/s MV A Peak Velocity 80 cm/s MV E/A 2.5 MV Decel Time (PW) 407 ms Tricuspid Valve Name Value Normal TV Regurgitation Doppler TR Peak Velocity 397 cm/s TR Peak Gradient 63 mmHg Estimated PAP/RSVP RA Pressure 10 mmHg <=5 PA Systolic Pressure 73 mmHg <36 RV Systolic Pressure 73 mmHg <36 Aortic Valve Name Value Normal AV Doppler AV Peak Velocity 297 cm/s AV Peak Gradient 35 mmHg AV Mean Gradient 17 mmHg AV VTI 69 cm AV DI (Ayden) 0.93 Ventricles Name Value Normal LV Dimensions 2D/MM IVS Diastolic Thickness (2D) 0.7 cm 0.6-1.0 LVID Diastole (2D) 3.1 cm 3.8-5.2 LVIW Diastolic Thickness (2D) 0.7 cm 0.6-0.9 LVID Systole (2D) 2.2 cm 2.2-3.5 LV Mass (2D Cubed) 52.71 g 67.00-162.00 LV Mass Index (2D Cubed) 32 g/m2 43-95 Relative Wall Thickness (2D) 0.47 <=0.42 LV Fractional Shortening/Ejection Fraction 2D/MM LV Fractional Shortening (2D) 29 % 27-45 LV EF (2D Teichholz) 58 % LV Diastolic Volume (4C MOD) 63 ml LV EF (4C MOD) 59 % LV Diastolic Volume (2C MOD) 57 ml LV EF (2C MOD) 62 % LV Diastolic Volume (BP MOD) 60 ml 46-106 LV Diastolic Volume Index (BP MOD) 36 ml/m2 29-61 LV Systolic Volume (BP MOD) 23 ml 14-42 LV Systolic Volume Index (BP MOD) 14 ml/m2 8-24 LV EF (BP MOD) 61 % 54-74 LV Diastolic Length (4C) 7.0 cm LV Systolic Length (4C) 6.3 cm LV Stroke Volume (4C MOD) 37 ml Atria Name Value Normal RA Dimensions RA Systolic Major [place] Length (4C) 4.7 cm 2.2-2.8 RA Area (4C) 11.9 cm2 <=18.0 Report Signatures
[2025-04-24 05:32] LABS: Hematocrit 39.5 % (37.0-47.0); Hemoglobin 12.2 g/dL (12.0-15.0); Mean Corpuscular HGB Conc 30.9 g/dl (32-36); Mean Corpuscular Hemoglobin 29.3 pg (26-34); Mean Corpuscular Volume 95.0 fl (80-100); Platelet Count Result 114 k/mm3 (150-375); Red Blood Count 4.16 M/mm3 (4.2-5.4); White Blood Count 5.8 K/mm3 (4.5-10.0)
[2025-04-24 05:44] LABS: Alanine Aminotransferase 13 U/L (6-35); Albumin Level 3.1 g/dL (3.5-5.1); Alkaline Phosphatase 56 U/L (38-126); Anion Gap 12 mmol/L (4-12); Aspartate Amino Transferase 15 U/L (14-36); Bilirubin,Total 0.4 mg/dL (0.2-1.3); Blood Urea Nitrogen 68 mg/dL (7-17); Calcium 9.2 mg/dL (8.4-10.2); Carbon Dioxide 21 mmol/L (22-30); Chloride 98 mmol/L (98-107); Glucose 89 mg/dL (65-110); Magnesium 2.8 mg/dL (1.6-2.3); Potassium 5.9 mmol/L (3.4-5.0); Sodium 131 mmol/L (137-145); Total Protein 5.8 g/dL (6.3-8.2)
[2025-04-24 05:50] LABS: Estimated CRCL calculation 3 ml/min; Estimated Glomerular Filt Rate 3
[2025-04-24] MEDS: LEVOTHYROXINE SODIUM 112 MCG TABLET PO (06:06)
[2025-04-24] MEDS: LEVOTHYROXINE SODIUM 25 MCG TABLET PO (06:06)
[2025-04-24] MEDS: SODIUM ZIRCONIUM CYCLOSILICATE 10 GM POWD.PACK PO (08:19)
--- NOTE | 2025-04-24 08:50 | P.PNIM_ITS ---
Progress Note: A&P Assessment and Plan (1) Paroxysmal atrial fibrillation: Code(s): I48.0 - Paroxysmal atrial fibrillation Status: Acute Assessment and Plan: * 04/23 Eliquis started, ASA stopped, tolerated well (2) CAD (coronary artery disease): Qualifiers: Associated angina: without angina Coronary Disease-Associated Artery/Lesion type: [place] artery [place] vs. transplanted heart: [place] heart Qualified Code(s): I25.10 - Atherosclerotic heart disease of [place] coronary artery without angina pectoris Code(s): I25.10 - Atherosclerotic heart disease of [place] coronary artery without angina pectoris Status: Chronic Assessment and Plan: * Troponin flat, likely due to ESRD on PD (3) Hypertension: Code(s): I10 - Essential (primary) hypertension Status: Chronic Assessment and Plan: * Chronically hypotensive due to CM (4) End-stage renal disease (ESRD): Code(s): N18.6 - End stage renal disease Status: Chronic Assessment and Plan: * Secondary to polycystic kidney disease. * On peritoneal dialysis, had missed treatment prior to admission * Nephrology consultation noted * K elevated 04/23 at 5.9 and [facility] ordered -- likely home if K WNL this PM (5) Hypothyroidism: Code(s): E03.9 - Hypothyroidism, unspecified Status: Chronic Assessment and Plan: * Continue home dose of Levothyroxine once it has been verified and confirmed * TSH WNL 04/22 Subjective Date/time seen: 04/24/25 08:50 Interval history: No issues overnight. No palpitations. She would like to stop Repatha and then rechallenge to determine whether it is causing the afib. Review of Systems Review of Systems: All systems reviewed & are unremarkable except as noted in HPI and below Exam Narrative: HEENT: PERRL, sclerae nonicteric, pharyngeal mucosa pink and intact NECK: No JVD or thyromegaly CHEST: Clear to auscultation. Normal effort HEART: NL S1/S2, regular with occa, no murmur ABDOMEN: BS+, soft, nontender, no mass, no bruits EXTREMITIES: No cyanosis, edema, or clubbing NEUROLOGIC: CN intact and symmetric to inspection MUSCULOSKELETAL: Tone and strength symmetric PSYCH: Alert. Oriented to person, place, and time Objective Data Vital Signs Vital Signs: Vital Signs - 24 hr 04/23/25 10:00 04/23/25 11:47 04/23/25 12:00 Temperature 97.8 F Pulse Rate 66 90 90 Respiratory Rate 16 Blood Pressure 94/54 L Pulse Oximetry 99 Oxygen Delivery Room Air 04/23/25 12:00 04/23/25 14:00 04/23/25 16:00 Temperature 98.2 F Pulse Rate 90 77 72 Respiratory Rate 12 Blood Pressure 105/65 Pulse Oximetry 96 Oxygen Delivery 04/23/25 16:00 04/23/25 16:00 04/23/25 18:00 Temperature Pulse Rate 76 90 83 Respiratory Rate Blood Pressure Pulse Oximetry Oxygen Delivery Room Air 04/23/25 20:00 04/23/25 20:00 04/23/25 20:00 Temperature 98.1 F Pulse Rate 60 73 Respiratory Rate 20 Blood Pressure 92/54 L Pulse Oximetry 97 Oxygen Delivery Room Air 04/23/25 22:00 04/24/25 00:00 04/24/25 00:00 Temperature 97.8 F Pulse Rate 72 74 Respiratory Rate 18 Blood Pressure 92/47 L Pulse Oximetry 94 Oxygen Delivery Room Air 04/24/25 00:00 04/24/25 02:00 04/24/25 04:00 Temperature Pulse Rate 64 71 Respiratory Rate Blood Pressure Pulse Oximetry Oxygen Delivery Room Air 04/24/25 04:00 04/24/25 04:00 04/24/25 06:00 Temperature 97.9 F Pulse Rate 81 63 71 Respiratory Rate 16 Blood Pressure 96/49 L Pulse Oximetry 98 Oxygen Delivery Intake/Output Intake/Output: Intake & Output 04/21/25 04/22/25 04/23/25 04/24/25 23:59 23:59 23:59 23:59 Intake Total 1260 120 Balance 1260 120 Meds/Results Medications: Active Medications Generic Name Dose Route Start Last Admin Trade Name Freq PRN Reason Stop Dose Admin Acetaminophen 650 mg 04/22/25 19:37 Acetaminophen 325 Mg Tablet PO Q4H PRN Mild Pain (1-3) or Fever Albuterol 2 puff 04/23/25 09:57 Albuterol Sulfate (*Sp) Aerosol 1 Puff INHALATION Q4-6H PRN shortness of breath or wheezing Apixaban 2.5 mg 04/23/25 21:00 04/23/25 21:40 Apixaban 2.5 Mg Tablet PO 05/05/25 20:59 2.5 mg Q12HR TARV Administration Calcitriol 0.25 mcg 04/23/25 10:25 04/23/25 11:27 Calcitriol 0.25 Mcg Capsule PO 0.25 mcg DAILY TRAV Administration Clopidogrel Bisulfate 75 mg 04/23/25 10:25 04/23/25 11:27 Clopidogrel Bisulfate 75 Mg Tablet PO 75 mg DAILY TRAV Administration Gabapentin 100 mg 04/23/25 21:00 04/23/25 21:39 Gabapentin 100 Mg Capsule PO 100 mg Fr@2100 TRAV Administration Gentamicin Sulfate 1 applic 04/23/25 10:35 04/23/25 11:30 Gentamicin Sulfate 0.1% Cr 15 Gm Tube TOPICAL Not Given DAILY [facility] Levothyroxine Sodium 112 mcg 04/23/25 10:35 04/24/25 06:06 Levothyroxine Sodium 112 Mcg Tablet PO 112 mcg DAILY@0630 TRAV Administration Levothyroxine Sodium 25 mcg 04/23/25 10:35 04/24/25 06:06 Levothyroxine Sodium 25 Mcg Tablet PO 25 mcg DAILY@0630 TRAV Administration Loratadine 10 mg 04/23/25 09:57 Loratadine 10 Mg Tablet PO DAILY PRN Allergy Symptoms Miscellaneous Information 0 each 04/23/25 00:01 Nonformulary Drug (Ferric Citrate [Auryxia] 210 Mg Iron Tablet)- Please Have Home Med Brou XX 05/23/25 00:00 CLARIFY [facility] Miscellaneous Information 0 each 04/23/25 00:01 04/23/25 14:54 Nonformulary Drug (Evolocumab [Repatha Sureclick] 140 Mg/Ml Pen Injector)Please Have Home XX 05/23/25 00:00 Not Given CLARIFY [facility] Multivitamins Therapeutic 1 tablet 04/23/25 10:25 04/23/25 11:27 Multivitamins Therapeutic Tab (*Bkc) PO 1 tablet DAILY TRAV Administration Nitroglycerin 0.4 mg 04/23/25 09:57 Nitroglycerin Sl 0.4 Mg Tablet SUBLINGUAL Q5M PRN Pain Non-Formulary Medication 140 mg 04/23/25 10:00 Evolocumab [Repatha Sureclick] SUB-Q 05/23/25 09:59 ONCE TRAV Non-Formulary Medication 210 mg 04/23/25 17:00 Ferric Citrate [Auryxia] PO 05/23/25 16:59 BID [facility] Perflutren Lipid Microsphere 0 ml 04/23/25 12:23 Perflutren Lipid Microspheres 1.5 Ml Vial Diluted To 10 Ml Total Volume IV PUSH 04/26/25 12:24 ONCE PRN adequate visualization Protocol Triamcinolone Acetonide 1 applic 04/23/25 10:35 04/23/25 11:30 Triamcinolone Acet 0.5% Oint 15 Gm Tube TOPICAL Not Given DAILY [facility] Vitamin D 25,000 mcg 05/02/25 09:00 Cholecalciferol (Vitamin D3) 125 Mcg (5,000 Units) Tablet PO 06/01/25 08:59 Q14D [facility] Radiology Results: ITS Impressions Chest X-Ray 04/22/25 13:46 IMPRESSION: Small left-sided pleural effusion, improved from previous examination. Wedge shaped opacification of the left upper lobe, an interval change from prior. The remainder of the lungs are clear. Labs Labs: Laboratory Results - last 24 hr 04/24/25 05:27 WBC 5.8 RBC 4.16 L Hgb 12.2 Hct 39.5 MCV 95.0 MCH 29.3 MCHC 30.9 L RDW 16.7 H Plt Count 114 L MPV 11.1 H Sodium 131 L Potassium 5.9 H Chloride 98 Carbon Dioxide 21 L Anion Gap 12 BUN 68 H Creatinine 15.14 H Estim Creat Clear Calc 3 Estimated GFR 3 L Glucose 89 Calcium 9.2 Phosphorus 10.8 H Magnesium 2.8 H Total Bilirubin 0.4 AST 15 ALT 13 Alkaline Phosphatase 56 Total Protein 5.8 L Albumin 3.1 L
--- NOTE | 2025-04-24 09:25 | PM.PNNEP ---
Progress Note: A&P Assessment and Plan (1) ESRD (end stage renal disease): Code(s): N18.6 - End stage renal disease Status: Chronic Assessment and Plan: getting PD treatment now (since unable to get CCPD last night resume CCPD treatment this evening (here in hospital versus at home) follow electrolytes, voume status, and clearance (2) Palpitations: Code(s): R00.2 - Palpitations Status: Acute Assessment and Plan: continue telemetry pacemaker interrogation Cardiology recommendations noted (3) CAD (coronary artery disease): Qualifiers: Associated angina: without angina Coronary Disease-Associated Artery/Lesion type: [place] artery [place] vs. transplanted heart: [place] heart Qualified Code(s): I25.10 - Atherosclerotic heart disease of [place] coronary artery without angina pectoris Code(s): I25.10 - Atherosclerotic heart disease of [place] coronary artery without angina pectoris Status: Chronic Assessment and Plan: known history: history of CABG x2 PCI x 5 troponin trend noted telemetry Cardiology recommendations noted (4) Anemia: Qualifiers: Anemia type: unspecified type Qualified Code(s): D64.9 - Anemia, unspecified Code(s): D64.9 - Anemia, unspecified Status: Chronic Assessment and Plan: due to ESRD H/H supratherapeutic at this time hold Epogen (5) Hypertension: Code(s): I10 - Essential (primary) hypertension Status: Chronic Assessment and Plan: reasonable control follow trend of hemodynamics Will continue to follow. Subjective Date/time seen: 04/24/25 09:25 Interval history: Follow-up for end stage renal disease on peritoneal dialysis. Tolerating peritoneal dialysis treatment at this time (seen on PD at 9:15AM); unable to get CCPD treatment last night due technical issues with cycler last night; K+ elevated this AM so given lokelma; no reported palpitations recently; no other acute issues voiced when seen. Exam Narrative: General: WD/WN female in NAD Heart: normal S1 and S2; no rub Lungs: clear to auscultation Abdomen: soft, nondistended, positive bowel sounds Extremities: no cyanosis or clubbing; no edema Skin: warm and dry Objective Data Vital Signs Vital Signs: Vital Signs Temp Pulse Resp BP Pulse Ox O2 Del Method 04/24/25 08:00 71 Room Air 04/24/25 08:00 97.4 F L 63 20 84/63 L 100 04/24/25 06:00 71 04/24/25 04:00 97.9 F 63 16 96/49 L 98 04/24/25 04:00 81 04/24/25 04:00 Room Air 04/24/25 02:00 71 04/24/25 00:00 64 04/24/25 00:00 Room Air 04/24/25 00:00 97.8 F 74 18 92/47 L 94 04/23/25 22:00 72 04/23/25 20:00 73 04/23/25 20:00 Room Air 04/23/25 20:00 98.1 F 60 20 92/54 L 97 04/23/25 18:00 83 04/23/25 16:00 90 Room Air 04/23/25 16:00 76 04/23/25 16:00 98.2 F 72 12 105/65 96 04/23/25 14:00 77 Intake/Output Intake/Output: Intake & Output 04/21/25 04/22/25 04/23/25 04/24/25 23:59 23:59 23:59 23:59 Intake Total 1260 360 Balance 1260 360 Meds/Results Medications: Active Medications Generic Name Dose Route Start Last Admin Trade Name Freq PRN Reason Stop Dose Admin Acetaminophen 650 mg 04/22/25 19:37 Acetaminophen 325 Mg Tablet PO Q4H PRN Mild Pain (1-3) or Fever Albuterol 2 puff 04/23/25 09:57 Albuterol Sulfate (*Sp) Aerosol 1 Puff INHALATION Q4-6H PRN shortness of breath or wheezing Apixaban 2.5 mg 04/23/25 21:00 04/24/25 10:16 Apixaban 2.5 Mg Tablet PO 05/05/25 20:59 2.5 mg Q12HR TRAV Administration Calcitriol 0.25 mcg 04/23/25 10:04/24/25 10:16 Calcitriol 0.25 Mcg Capsule PO 0.25 mcg DAILY TRAV Administration Clopidogrel Bisulfate 75 mg 04/23/25 10:25 04/24/25 10:16 Clopidogrel Bisulfate 75 Mg Tablet PO 75 mg DAILY TRAV Administration Gabapentin 100 mg 04/23/25 21:00 04/23/25 21:39 Gabapentin 100 Mg Capsule PO 100 mg Fr@2100 TRAV Administration Gentamicin Sulfate 1 applic 04/23/25 10:35 04/24/25 10:16 Gentamicin Sulfate 0.1% Cr 15 Gm Tube TOPICAL Not Given DAILY [facility] Levothyroxine Sodium 112 mcg 04/23/25 10:35 04/24/25 06:06 Levothyroxine Sodium 112 Mcg Tablet PO 112 mcg DAILY@0630 TRAV Administration Levothyroxine Sodium 25 mcg 04/23/25 10:35 04/24/25 06:06 Levothyroxine Sodium 25 Mcg Tablet PO 25 mcg DAILY@0630 [facility] Administration Loratadine 10 mg 04/23/25 09:57 Loratadine 10 Mg Tablet PO DAILY PRN Allergy Symptoms Miscellaneous Information 0 each 04/23/25 00:01 Nonformulary Drug (Ferric Citrate [Auryxia] 210 Mg Iron Tablet)- Please Have Home Med Brou XX 05/23/25 00:00 CLARIFY [facility] Miscellaneous Information 0 each 04/23/25 00:01 04/23/25 14:54 Nonformulary Drug (Evolocumab [Repatha Sureclick] 140 Mg/Ml Pen Injector)Please Have Home XX 05/23/25 00:00 Not Given CLARIFY [facility] Multivitamins Therapeutic 1 tablet 04/23/25 10:25 04/24/25 10:16 Multivitamins Therapeutic Tab (*Bkc) PO Not Given DAILY [facility] Nitroglycerin 0.4 mg 04/23/25 09:57 Nitroglycerin Sl 0.4 Mg Tablet SUBLINGUAL Q5M PRN Pain Non-Formulary Medication 140 mg 04/23/25 10:00 Evolocumab [Repatha Sureclick] SUB-Q 05/23/25 09:59 ONCE TRAV Non-Formulary Medication 210 mg 04/23/25 17:00 Ferric Citrate [Auryxia] PO 05/23/25 16:59 BID [facility] Triamcinolone Acetonide 1 applic 04/23/25 10:35 04/24/25 10:17 Triamcinolone Acet 0.5% Oint 15 Gm Tube TOPICAL Not Given DAILY [facility] Vitamin D 25,000 mcg 05/02/25 09:00 Cholecalciferol (Vitamin D3) 125 Mcg (5,000 Units) Tablet PO 06/01/25 08:59 Q14D [facility] Radiology Results: ITS Impressions Chest X-Ray 07/03/25 13:46 IMPRESSION: Small left-sided pleural effusion, improved from previous examination. Wedge shaped opacification of the left upper lobe, an interval change from prior. The remainder of the lungs are clear. Labs Labs: Laboratory Tests 04/24/25 05:27 04/24/25 05:27 Calcium 9.2 Phosphorus 10.8 H Magnesium 2.8 H Total Bilirubin 0.4 AST 15 ALT 13 Alkaline Phosphatase 56 Total Protein 5.8 L Albumin 3.1 L
[2025-04-24] MEDS: CLOPIDOGREL BISULFATE 75 MG TABLET PO (10:16)
[2025-04-24] MEDS: APIXABAN 2.5 MG TABLET PO (10:16)
[2025-04-24] MEDS: PERFLUTREN LIPID MICROSPHERES 1.5 ML VIAL DILUTED TO 10 ML TOTAL VOLUME IV PUSH (11:35)
--- NOTE | 2025-04-24 11:51 | IVDEFINITY ---
Prior to administration of IV Definity the patient was educated on the risks and benefits of the imaging enhancing agent including potential adverse side effects. The patient verbalized understanding. Allergies were verified. No exclusion criteria were identified and at least one of the following inclusion criteria were met: 1) physician request, 2) patient technically difficult to image (per the [place] [employer]ocardi[employer] guidelines of two or more segments not discernable within the apical view), or 3) questionable left ventricular function. ?
--- NOTE | 2025-04-24 13:15 | PM.PNCARD ---
Progress Note: A&P Assessment and Plan (1) Paroxysmal atrial fibrillation: Code(s): I48.0 - Paroxysmal atrial fibrillation Status: Acute Plan Paroxysmal atrial fibrillation Valvular heart disease Post TAVR 2023 and redo valve in valve TAVR 324 Mild calcific mitral stenosis Moderate to severe tricuspid regurgitation History of dual-chamber pacemaker Coronary artery disease history of CABG with PCI to graft the LAD and PCI to left main and LAD with InStent restenosis and recurrent PCI 2024 End-stage renal disease on hemodialysis Hypothyroidism Interrogation of dual-chamber pacemaker revealed device working properly and atrial fibrillation 1% of time Continue metoprolol 12.5 mg b.i.d. Refer back to her primary security dispatcher for further management of TR Oral anticoagulation Eliquis 5 mg b.i.d. Continue Plavix 75 mg daily DC aspirin 81 mg daily Patient may need to be started on antiarrhythmic therapy since her episodes of atrial fibrillation are symptomatic and recurrent, she feels better today has no symptoms since yesterday and would like to go back to her security dispatcher for further discussion regarding next step in management of atrial fibrillation Patient can be discharged from cardiac standpoint and follow up in the clinic with her security dispatcher Subjective Date/time seen: 04/24/25 13:15 Interval history: No acute events Paroxysmal atrial fibrillation Review of Systems Review of Systems: All systems reviewed & are unremarkable except as noted in HPI and below Exam Narrative: General appearance: Well-developed, well-nourished Skin: Normal color Head: Normocephalic, nontraumatic Eyes: Clear conjunctiva ENT: Oropharynx normal, ears normal, nose normal Neck: Supple, nontender Chest and respiratory: Airway patent, no respiratory distress, no accessory muscle use Heart: Regular rate/rhythm Abdomen: Soft, nontender, no organomegaly, quiet bowel sounds, peritoneal catheter in place Vascular: Normal peripheral pulses, normal capillary refill. Musculoskeletal: Scoliosis Neurologic: Alert and oriented ?3, LEAD PERFORMANCE SUPPORT ANALYST is normal as tested, no gross motor deficit Objective Data Vital Signs Vital Signs: Vital Signs - 24 hr 04/23/25 14:00 04/23/25 16:00 04/23/25 16:00 Temperature 36.8 C Pulse Rate 77 72 76 Respiratory Rate 12 Blood Pressure 105/65 Pulse Oximetry 96 Oxygen Delivery 04/23/25 16:00 04/23/25 18:00 04/23/25 20:00 Temperature 36.7 C Pulse Rate 90 83 60 Respiratory Rate 20 Blood Pressure 92/54 L Pulse Oximetry 97 Oxygen Delivery Room Air 04/23/25 20:00 04/23/25 20:00 04/23/25 22:00 Temperature Pulse Rate 73 72 Respiratory Rate Blood Pressure Pulse Oximetry Oxygen Delivery Room Air 04/24/25 00:00 04/24/25 00:00 04/24/25 00:00 Temperature 36.6 C Pulse Rate 74 64 Respiratory Rate 18 Blood Pressure 92/47 L Pulse Oximetry 94 Oxygen Delivery Room Air 04/24/25 02:00 04/24/25 04:00 04/24/25 04:00 Temperature Pulse Rate 71 81 Respiratory Rate Blood Pressure Pulse Oximetry Oxygen Delivery Room Air 04/24/25 04:00 04/24/25 06:00 04/24/25 08:00 Temperature 36.6 C 36.3 C L Pulse Rate 63 71 63 Respiratory Rate 16 20 Blood Pressure 96/49 L 84/63 L Pulse Oximetry 98 100 Oxygen Delivery 04/24/25 08:00 04/24/25 08:00 04/24/25 10:00 Temperature Pulse Rate 71 78 Respiratory Rate Blood Pressure Pulse Oximetry Oxygen Delivery Room Air 04/24/25 12:00 04/24/25 12:00 04/24/25 12:00 Temperature 36.5 C Pulse Rate 82 76 Respiratory Rate 16 Blood Pressure 92/66 L Pulse Oximetry 93 Oxygen Delivery Room Air Intake/Output Intake/Output: Intake & Output 04/21/25 04/22/25 04/23/25 04/24/25 23:59 23:59 23:59 23:59 Intake Total 1260 360 Balance 1260 360 Meds/Results Medications: Active Medications Generic Name Dose Route Start Last Admin Trade Name Freq PRN Reason Stop Dose Admin Acetaminophen 650 mg 04/22/25 19:37 Acetaminophen 325 Mg Tablet PO Q4H PRN Mild Pain (1-3) or Fever Albuterol 2 puff 04/23/25 09:57 Albuterol Sulfate (*Sp) Aerosol 1 Puff INHALATION Q4-6H PRN shortness of breath or wheezing Apixaban 2.5 mg 04/23/25 21:00 04/24/25 10:16 Apixaban 2.5 Mg Tablet PO 05/05/25 20:59 2.5 mg Q12HR TRAV Administration Calcitriol 0.25 mcg 07/04/25 10:25 04/24/25 10:16 Calcitriol 0.25 Mcg Capsule PO 0.25 mcg DAILY TRAV Administration Clopidogrel Bisulfate 75 mg 04/23/25 10:25 04/24/25 10:16 Clopidogrel Bisulfate 75 Mg Tablet PO 75 mg DAILY TRAV Administration Gabapentin 100 mg 04/23/25 21:00 04/23/25 21:39 Gabapentin 100 Mg Capsule PO 100 mg Fr@2100 TRAV Administration Gentamicin Sulfate 1 applic 04/23/25 10:35 04/24/25 10:16 Gentamicin Sulfate 0.1% Cr 15 Gm Tube TOPICAL Not Given DAILY TRAV Levothyroxine Sodium 112 mcg 04/23/25 10:35 04/24/25 06:06 Levothyroxine Sodium 112 Mcg Tablet PO 112 mcg DAILY@0630 TRAV Administration Levothyroxine Sodium 25 mcg 04/23/25 10:35 04/24/25 06:06 Levothyroxine Sodium 25 Mcg Tablet PO 25 mcg DAILY@0630 TRAV Administration Loratadine 10 mg 04/23/25 09:57 Loratadine 10 Mg Tablet PO DAILY PRN Allergy Symptoms Miscellaneous Information 0 each 04/23/25 00:01 Nonformulary Drug (Ferric Citrate [Auryxia] 210 Mg Iron Tablet)- Please Have Home Med Brou XX 05/23/25 00:00 CLARIFY [facility] Miscellaneous Information 0 each 04/23/25 00:01 04/23/25 14:54 Nonformulary Drug (Evolocumab [Repatha Sureclick] 140 Mg/Ml Pen Injector)Please Have Home XX 05/23/25 00:00 Not Given CLARIFY [facility] Multivitamins Therapeutic 1 tablet 04/23/25 10:25 04/24/25 10:16 Multivitamins Therapeutic Tab (*Bkc) PO Not Given DAILY TRAV Nitroglycerin 0.4 mg 04/23/25 09:57 Nitroglycerin Sl 0.4 Mg Tablet SUBLINGUAL Q5M PRN Pain Non-Formulary Medication 140 mg 04/23/25 10:00 Evolocumab [Repatha Sureclick] SUB-Q 05/23/25 09:59 ONCE TRAV Non-Formulary Medication 210 mg 04/23/25 17:00 Ferric Citrate [Auryxia] PO 05/23/25 16:59 BID TRAV Triamcinolone Acetonide 1 applic 04/23/25 10:35 04/24/25 10:17 Triamcinolone Acet 0.5% Oint 15 Gm Tube TOPICAL Not Given DAILY [facility] Vitamin D 25,000 mcg 05/02/25 09:00 Cholecalciferol (Vitamin D3) 125 Mcg (5,000 Units) Tablet PO 06/01/25 08:59 Q14D [facility] Radiology Results: ITS Impressions Chest X-Ray 04/22/25 13:46 IMPRESSION: Small left-sided pleural effusion, improved from previous examination. Wedge shaped opacification of the left upper lobe, an interval change from prior. The remainder of the lungs are clear. Labs Labs: Laboratory Results - last 24 hr 04/24/25 05:27 WBC 5.8 RBC 4.16 L Hgb 12.2 Hct 39.5 MCV 95.0 MCH 29.3 MCHC 30.9 L RDW 16.7 H Plt Count 114 L MPV 11.1 H Sodium 131 L Potassium 5.9 H Chloride 98 Carbon Dioxide 21 L Anion Gap 12 BUN 68 H Creatinine 15.14 H Estim Creat Clear Calc 3 Estimated GFR 3 L Glucose 89 Calcium 9.2 Phosphorus 10.8 H Magnesium 2.8 H Total Bilirubin 0.4 AST 15 ALT 13 Alkaline Phosphatase 56 Total Protein 5.8 L Albumin 3.1 L
--- NOTE | 2025-04-24 15:07 | P.DS_ITS ---
DS: Admitting Diagnosis Discharge Date April 24, 2025 Admitting Diagnosis Palpitations due to paroxysmal atrial fibrillation DS: Discharge Diagnosis Discharge Diagnosis (1) Paroxysmal atrial fibrillation: Code(s): I48.0 - Paroxysmal atrial fibrillation Status: Acute Assessment and Plan: * 04/23 Eliquis started, ASA stopped, tolerated well (2) CAD (coronary artery disease): Qualifiers: Associated angina: without angina Coronary Disease-Associated Artery/Lesion type: [place] artery [place] vs. transplanted heart: [place] heart Qualified Code(s): I25.10 - Atherosclerotic heart disease of [place] coronary artery without angina pectoris Code(s): I25.10 - Atherosclerotic heart disease of [place] coronary artery without angina pectoris Status: Chronic Assessment and Plan: * Troponin flat, likely due to ESRD on PD (3) Hypertension: Code(s): I10 - Essential (primary) hypertension Status: Chronic Assessment and Plan: * Chronically hypotensive due to CM (4) End-stage renal disease (ESRD): Code(s): N18.6 - End stage renal disease Status: Chronic Assessment and Plan: * Secondary to polycystic kidney disease. * On peritoneal dialysis, had missed treatment prior to admission * Nephrology consultation noted * K elevated 04/24 at 5.9 and Lokelma ordered -- resolved by PM at 5.0 (5) Hypothyroidism: Code(s): E03.9 - Hypothyroidism, unspecified Status: Chronic Assessment and Plan: * Continue home dose of Levothyroxine once it has been verified and confirmed * TSH WNL 04/22 DS: Summary Hospital Course Reason for hospitalization: Palpitations Hospital Course: 54-year-old female was at work when she experienced palpitations. Rhythm strip revealed probable atrial fibrillation with rapid ventricular rate. Her coworkers convinced her to come to the hospital. There her EKG suggested paroxysmal atrial fibrillation. Telemetry however was fairly quiescent except for PVCs and intermittent bigeminy. She has known ischemic cardiomyopathy with ejection fraction around 42%. She also has end-stage renal disease and is on peritoneal dialysis. Interrogation of her pacemaker showed that she was in atrial fibrillation about 1% of the time. Cardiology was consulted and aspirin was discontinued Plavix continued and apixaban 2.5 mg twice daily begun. She tolerated these well. On day of discharge her potassium was 5.9. She had a peritoneal dialysis treatment and 1 dose of Lokelma and by afternoon her potassium had normalized. She was up and about independently and tolerating her diet on the day of discharge. Time Spent with Patient Time attestation: Total time spent providing and/or coordinating discharge services: Exam Narrative: HEENT: PERRL, sclerae nonicteric, pharyngeal mucosa pink and intact NECK: No JVD or thyromegaly CHEST: Clear to auscultation. Normal effort HEART: NL S1/S2, regular with occa, no murmur ABDOMEN: BS+, soft, nontender, no mass, no bruits EXTREMITIES: No cyanosis, edema, or clubbing NEUROLOGIC: CN intact and symmetric to inspection MUSCULOSKELETAL: Tone and strength symmetric PSYCH: Alert. Oriented to person, place, and time DS: Data Data Completed and Pending Labs on day of discharge: Labs from last 24 hours 04/24/25 04/24/25 15:02 05:27 WBC 5.8 RBC 4.16 L Hgb 12.2 Hct 39.5 MCV 95.0 MCH 29.3 MCHC 30.9 L RDW 16.7 H Plt Count 114 L MPV 11.1 H Sodium Pending 131 L Potassium Pending 5.9 H Chloride Pending 98 Carbon Dioxide Pending 21 L Anion Gap Pending 12 BUN Pending 68 H Creatinine Pending 15.14 H Estim Creat Clear Calc Pending 3 Estimated GFR Pending 3 L Glucose Pending 89 Calcium Pending 9.2 Phosphorus Pending 10.8 H Magnesium 2.8 H Total Bilirubin 0.4 AST 15 ALT 13 Alkaline Phosphatase 56 Total Protein 5.8 L Albumin Pending 3.1 L Discharge Plan Discharge Consulting providers: Eduin Springer; Ezekiel Diaz Discharging Clinician: Khanh Martinez Patient Disposition: Home Activity: as tolerated Diet: heart healthy, renal and low sodium Patient Instructions: Heart Failure (DC) Patient Language: Polish Stand Alone Forms: General Discharge Information, Work/School Release IP Follow-up/Referrals: Eduin Springer MD [Physician] - Call for Appointment Ezekiel Diaz MD [Physician] - Call for Appointment Pal Downey DO [Primary Care Provider] - Call for Appointment Discharge Medications: New acetaminophen 325 mg Tablet 650 mg PO Q4H PRN (Reason: Mild Pain (1-3) Or Fever) Qty: 60 0RF Eliquis 2.5 mg Tablet 2.5 mg PO Q12HR Qty: 60 0RF Continued clopidogrel [Plavix] 75 mg tablet 75 mg PO DAILY gentamicin 0.1 % cream 1 applic topical DAILY Rx Instructions: Apply around PD Site loratadine [Claritin] 10 mg tablet 10 mg PO DAILY PRN (Reason: Allergy Symptoms) multivitamin Tablet 1 tablet PO DAILY nitroglycerin 0.4 mg tablet, sublingual 0.4 mg sublingual Q5M PRN (Reason: Pain) Rx Instructions: Take for chest pain. Do not exceed 3 doses calcitriol 0.25 mcg capsule 0.25 mcg PO DAILY ferric citrate [Auryxia] 210 mg iron tablet 210 mg PO BID Patient Comments: Take any time patient eats. Min take 2 per day. Rx Instructions: administer with a meal triamcinolone acetonide 0.5 % ointment 1 applic topical DAILY Qty: 15 0RF gabapentin 100 mg capsule 100 mg PO WEEKLY Rx Instructions: at bedtime ergocalciferol (vitamin D2) 25,000 unit capsule See Rx Instructions .ROUTE .COMPLEX Rx Instructions: 25,000 unit orally EOWeek albuterol sulfate [ProAir HFA] 90 mcg/actuation HFA aerosol inhaler 2 puff inhalation Q4-6H PRN (Reason: shortness of breath or wheezing) Qty: 18 5RF levothyroxine 137 mcg tablet 137 mcg PO DAILY Qty: 30 5RF Held Repatha SureClick 140 mg/mL pen injector 140 mg subcut ONCE Hold Instructions: Resume on 05/26/25. Trial of hold and repeat challenge due to concern about drug contributing to atrial fibrillation Discontinued aspirin 81 mg Tablet,Delayed Release (Dr/Ec) 81 mg PO DAILY Date of admission: 04/22/25 19:37 Primary Care Provider: Pal Downey Admitting Provider: Ramin Hart Attending physician on admission: Ramin Hart Condition: Stable
--- NOTE | 2025-04-24 15:15 | PC.NURSE ---
CCPD note: Cycler displaying multiple system errors. Sotelo contacted and t/s advice provided - turn off machine and restart per Sotelo. Machine was restarted and treatment resumed x 3 cycles. During 4th cycle, the machine again started displaying error codes. Previous t/s advice from Sotelo ineffective. Dr. Diaz notified. Stop CCPD and manually drain patient per MD. Unable to retrieve numbers from cycler and net uf is unknown. Patient alert and understands all issues. Patient reports no distress.
[2025-04-24 15:16] LABS: Albumin Level 3.4 g/dL (3.5-5.1); Anion Gap 14 mmol/L (4-12); Blood Urea Nitrogen 65 mg/dL (7-17); Calcium 9.4 mg/dL (8.4-10.2); Carbon Dioxide 24 mmol/L (22-30); Chloride 95 mmol/L (98-107); Glucose 88 mg/dL (65-110); Potassium 5.0 mmol/L (3.4-5.0); Sodium 133 mmol/L (137-145)
[2025-04-24 15:23] LABS: Estimated CRCL calculation 4 ml/min; Estimated Glomerular Filt Rate 3
== END 2025-04-24 16:16 | disposition home or self-care (01) ==
LOC: ANHED 19:34 → ANHIMU 04-23 02:47
PROVIDERS: Emergency Medicine; Nurse Practitioner; Nurse Practitioner Adult Health; Admitting Provider Family Medicine; Emergency Provider Emergency Medicine; PCP Internal Medicine; Visit Provider Internal Medicine
DX: I48.0 Paroxysmal atrial fibrillation (principal); R79.89 Other specified abnormal findings of blood chemistry; I13.2 Hypertensive heart and chronic kidney disease with heart failure and with stage 5 chronic kidney disease, or end stage renal disease; I50.9 Heart failure, unspecified; N18.6 End stage renal disease; Z99.2 Dependence on renal dialysis; Q61.3 Polycystic kidney, unspecified; I25.10 Atherosclerotic heart disease of native coronary artery without angina pectoris; I25.5 Ischemic cardiomyopathy; I25.2 Old myocardial infarction; I08.3 Combined rheumatic disorders of mitral, aortic and tricuspid valves; I49.5 Sick sinus syndrome; I27.20 Pulmonary hypertension, unspecified; J44.89 Other specified chronic obstructive pulmonary disease; I65.23 Occlusion and stenosis of bilateral carotid arteries; E89.0 Postprocedural hypothyroidism; I73.00 Raynaud's syndrome without gangrene; M41.9 Scoliosis, unspecified; Z79.02 Long term (current) use of antithrombotics/antiplatelets; Z79.51 Long term (current) use of inhaled steroids; Z79.82 Long term (current) use of aspirin; Z79.899 Other long term (current) drug therapy; Z85.89 Personal history of malignant neoplasm of other organs and systems; Z86.0101 Personal history of adenomatous and serrated colon polyps; Z86.16 Personal history of COVID-19; Z87.891 Personal history of nicotine dependence; Z88.0 Allergy status to penicillin; Z88.1 Allergy status to other antibiotic agents; Z90.710 Acquired absence of both cervix and uterus; Z95.0 Presence of cardiac pacemaker; Z95.1 Presence of aortocoronary bypass graft; Z95.2 Presence of prosthetic heart valve; Z95.5 Presence of coronary angioplasty implant and graft
CPT/HCPCS: 36415; 71045; 80053; 80069; 83690; 83735; 84100; 84443; 84484; 85025; 85027; 85055; 85610; 85730; 90945; 93005; 99285; A9270; C8929; G0378; J1644; J7040; Q9957

== ENCOUNTER 2025-05-24 18:39 | Emergency (ER) | payer MEDICARE, OTHER, SELFPAY ==
--- OUTSIDE RECORDS SUMMARY | 2025-05-24 18:41 | XMS_ITS | Clinical Summary ---
Author Organization [facility] Address Formerly [facility] [place] [address] Care Team Providers Care Bank Vault Attendant Name Role Phone Unavailable Primary Care Provider [...]
--- OUTSIDE RECORDS SUMMARY | 2025-05-24 18:42 | XMS_ITS ---
Author Organization [facility] Address [address] [place] [address] Care Team Providers Care Batch Tester Name Role Phone Quinton Rowan MD Unavailable [phone] Pal Downey DO Primary Care Provider Tmai Flores RN Unavailable Cricket Escalante MD Unavailable [phone] Gael Sprague MD PhD Unavailable Brad Turner MD Unavailable [phone] Margarita Montoya MD Unavailable Luca Lott MD Unavailable [phone] Pb Galloway MD Unavailable Felipe Gerber MD Unavailable [phone] Transplant Episode Kidney Candidate [facility] ([place], [place]) [facility] Center waitlisted on 09/05/2021 Marked as Inactive on 03/13/2024 Reason: 03 - Candidate Work-up Incomplete Kidney CoordinatorTami Flores RN Email: N/A Scores Score Value Updated Exceptions/Reas ons CPRA Not available EPTS (Calc) 30 05/24/2025 Ione Organ Diagnosis Organ Primary Contributory Kidney Polycystic Kidneys Care Team Name Role Phone Fax Email Tami Flores RN Kidney Coordinator [phone] N/A Mariann Bobo Resistor Winder [phone] N/A N/A Events Pre-Transplant Referred: 10/06/2020 Evaluation began: 03/24/2021 Committee: 09/04/2021 Center waitlisted: 09/05/2021 Dialysis History Dialysis History Start End Type Comments Center 01/09/2022 Peritoneal 7 days a week D [facility] Dialysis Center Information Center Phone Fax Address [facility] [phone] [address] [id number]
--- OUTSIDE RECORDS SUMMARY | 2025-05-24 18:42 | XMS_ITS | Clinical Summary ---
Author Organization [facility] Address [address] [place] [phone] Phone Care Team Providers Care Bailer Tenders Supervisor Name Role Phone ScarlettmelanyPal ibarra DO Primary Care Provider [phone] Allergies Active Allergy Reactions Criticality Noted Date [...] on file Legal Sex Female 9:07 AM [facility] Gender Identity Not on file Sexual Orientation Not on file Last Filed Vital Signs Vital Sign Reading Time Taken Comments Blood Pressure 122/70 12/22/2021 9:43 PM [employer]IAL TRA[employer]EE Pulse 72 12/22/2021 9:43 PM [employer]ARIAL TRAINEE Temperature 36.2 C (97.2 F) 12/22/2021 9:43 PM ACTUARIAL TRAINEE Respiratory Rate - - Oxygen Saturation - - Inhaled Oxygen Concentration - - Weight 50.3 kg (111 lb) 12/22/2021 9:43 PM ACTUARIAL TRAINEE Height 162.6 cm (5' 4) 12/22/2021 9:43 PM ACTUARIAL TRAINEE Body Mass Index 19.05 12/22/2021 9:43 PM ACTUARIAL TRAINEE Plan of Treatment Health Maintenance Due Date Last Done Comments Influenza Vaccine (#1) 2025 10/21/2017 Insurance MEDICAID - [place] [facility] Care Teams Bailer Tenders Supervisor Relationship Specialty Start Date End Date Pal Downey DO [address] [place] [id number] PCP - General Internal Medicine 02/04/19
--- OUTSIDE RECORDS SUMMARY | 2025-05-24 18:42 | XMS_ITS | Clinical Summary ---
Author Organization [email or web address] Address [address] [place] [address] Care Team Providers Care Rail Assembler Name Role Phone Danielle Hawkins Primary Care Provider Unavailabl e Source Comments [email or web address],non-owned Affiliates and Associated Physician Practices is amultiple site organization consisting of ambulatory clinics and hospital sitesin [place], [place], [place] and [place]. This disclosure is being madepursuant to the Care Everywhere program and may not contain all information available regarding this patient. 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 Gender Identity Not on file Sexual Orientation Not on file Last Filed Vital Signs Vital Sign Reading Time Taken Comments Blood Pressure 145/91 09/06/2016 9:59 AM STAGE SETTING PAINTER APPRENTICE Pulse 79 09/06/2016 9:59 AM STAGE SETTING PAINTER APPRENTICE Temperature 36.4 C (97.5 F) 12/23/2015 3:20 PM STAGE SETTING PAINTER APPRENTICE Respiratory Rate 12 09/06/2016 9:59 AM STAGE SETTING PAINTER APPRENTICE Oxygen Saturation 100% 12/23/2015 3:20 PM STAGE SETTING PAINTER APPRENTICE Inhaled Oxygen Concentration - - Weight 60.8 kg (134 lb) 09/06/2016 9:59 AM STAGE SETTING PAINTER APPRENTICE Height 162.6 cm (5' 4) 09/06/2016 9:59 AM STAGE SETTING PAINTER APPRENTICE Body Mass Index 23 09/06/2016 9:59 AM STAGE SETTING PAINTER APPRENTICE Plan of Treatment Health Maintenance Due Date [...] season) 2024 DEPRESSION SCREENING 10/21/2024 INFLUENZA VACCINE (#1) 2025 10/21/2017 HEPATITIS C SCREENING Completed 02/20/2025 [...] file Group ID:Not on file Type:Medicaid Address: [place] [id number] MEDICARE SELF PAY NO INSURANCE Member Subscriber Plan / Payer (Ef fective for All Dates) Name:Ginger Copeland Member ID:Not on file Relation to Subscriber:Not on file Name:GINGER COPELAND Subscriber ID:Not on file (Home) Address: [address] [place] [id number] Payer ID:Not on file Group ID:Not on file Type:Self Pay Address: [facility] Care Teams Rail Assembler Relationship Specialty Start Date End Date Danielle Hawkins Update Information PCP - General 04/29/15
--- OUTSIDE RECORDS SUMMARY | 2025-05-24 18:42 | XMS_ITS | Encounter Summary ---
Author Organization [facility] Address [address] [place] [address] Phone Care Team Providers Care Sodium Chlorite Operator Name Role Phone Quinton Rowan MD Unavailable [phone] Pal Downey DO Primary Care Provider [phone] Tami Flores RN Unavailable Cricket Escalante MD Unavailable Gael Sprague MD PhD Unavailable Brad Turner MD Unavailable Margarita Montoya MD Unavailable Luca Lott MD Unavailable Pb Galloway MD Unavailable Felipe Gerber MD Unavailable [phone] Claire Rosales [facility] Unavailable Encounter Details Date Type Department Care Team (Late st Contact Info) Description 05/12/2025 Telephone [facility] Cardiology [address] [facility] Advanced Medicine 8th [place] [address] [place] [address] Luca Lott MD [address] [place] [address] Social History Tobacco Use Types Packs/Day Years Used Date Smoking Tobacco: Former Cigarettes 1 20 0 04/01/1992 - 04/01/2012 Smokeless Tobacco: Never Alcohol Use Standard Drinks/Week Comments Yes 0 (1 standard drink = 0.6 oz pur e alcohol) occasional [facility] Utilities Answer Date Recorded In the past 12 months has e electric, gas, oil, or water [employer] threatened to shut off services in your home? Patient declined 05/10/2025 Social Connection and Isolation Panel [NHANES] A nswer Date Recorded In a typical week, how many times do you talk on the phone with family, friends, or neighbors? Patient declined 05/10/2025 How often do you get togethe r with friends or relatives? Patient declined 05/10/2025 How often do you attend jewish or protestant serv ices? Patient declined 05/10/2025 Do you belong to any clubs o r organizations such as jewish groups, unions, fraternal or athletic groups, or school groups? Patient declined 05/10/2025 How often do you attend meet ings of the clubs or organizations you belong to? Patient declined 05/10/2025 Are you , , di vorced, , never , or living with a partner? Patient declined 05/10/2025 AUDIT-C Answer Date Recorded Q1: How often do you have a drink containing alcohol? Never 05/11/2025 Q2: How many drinks containi ng alcohol do you have on a typical day when you are drinking? Patient does not drink Q3: How often do you have si x or more drinks on one occasion? Never 05/11/2025 Overall Financial Resource Strain (CARDIA) Answe r Date Recorded How hard is it for you to pa y for the very basics like food, housing, medical care, and heating? Patient declined 05/10/2025 Hunger Vital Sign Answer Date Recorded Within the past 12 months, y ou worried that your food would run out before you got the money to buy more. Patient declined Within the past 12 months, t he food you bought just didn't last and you didn't have money to get more. Patient declined PRAPARE - Transportation Answer Date Re corded In the past 12 months, has l ack of transportation kept you from medical appointments or from getting medications? Patient declined 05/10/2025 In the past 12 months, has l ack of transportation kept you from meetings, work, or from getting things needed for daily living? Patient declined 05/10/2025 Housing Stability Vital Sign Answer Javed e Recorded In the last 12 months, was t here a time when you were not able to pay the mortgage or rent on time? Patient declined 05/10/20 25 In the past 12 months, how m any times have you moved where you were living? 0 05/10/2025 At any time [facility] the [facility], were you homeless or living in a detention (including now)? Patient declined 05/10/2025 Personal Safety Answer Date Recorded Have you ever been in or are you currently in a harmful physical or emotional relationship or is someone making you feel afraid or unsafe? 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 Lott * Telephone Encounter - Lacey Regalado - 05/12/2025 2:09 PM CDT ----- Message from Nurse Malena Garces sent at 05/12/2025 11:26 AM CDT ----- Regarding: FW: Cath follow up See note for add on appointment ----- Message ----- From: Luca Lott MD Sent: 05/11/2025 4:43 PM CDT To: Samanta Joy; Quintin Im Rosalie Lott Clinical [place] Subject: Cath follow up Can we add under clinic for 4-6 weeks. Okay to add on at noon if needed Thanks luca documented in this encounter Plan of Treatment Scheduled Procedures Name Priority Associated Diagnoses Date/Ti me TRANSPLANT KIDNEY ESRD (end stage renal disease) (HCC) documented as of this encounter Visit Diagnoses Not on filedocumented in this encounter Care Teams Sodium Chlorite Operator Relationship Specialty Start Date End Date Pal Downey DO PCP - General Internal Medicine 01/25/21 Quinton Rowan MD Referring Physician Cardiology 01/09/19 Tami Flores RN [address] [address] Registered Nurse Composition Tile Layer 01/25/21 Cricket Escalante MD [address] [address] Referring Physician Nephrology 03/24/21 Gael Sprague MD PhD [address] [address] Fellow Endocrinology Diabetes & Metabolism 03/24/21 Brad Turner MD [address] [place] [address] Consulting Physician Obstetrics and Gynecology 03/24/21 Margarita Montoya MD [address] [place] [address] [id number] Consulting Physician Trauma Surgery 12/27/21 Luca Lott MD [address] [address] Consulting Physician Cardiology 08/03/22 Pb Galloway MD [address] [address] Cardiothoracic Surgery 05/25/24 Felipe Gerber MD [address] [address] Consulting Physician Cardiology 05/25/24 Claire Rosales LCSW [address] [facility] ([facility] Mailstop [phone] [place] [address] [facility]OP Outpatient Senior Energy Analyst 05/10/25 05/18/25 documented as of this encounter
--- OUTSIDE RECORDS SUMMARY | 2025-05-24 18:42 | XMS_ITS | Encounter Summary ---
Author Organization [facility] Address [address] [place] [address] Phone Care Team Providers Care Media Aid Name Role Phone Quinton Rowan MD Unavailable [phone] Pal Downey DO Primary Care Provider [phone] Tami Flores RN Unavailable Cricket Escalante MD Unavailable Gael Sprague MD PhD Unavailable Brad Turner MD Unavailable [phone] Margarita Montoya MD Unavailable Luca Lott MD Unavailable [phone] Pb Galloway MD Unavailable Felipe Gerber MD Unavailable [phone] Claire Rosales DOSIMETRIST Unavailable Claire Rosales DOSIMETRIST Unavailable [phone] Encounter Details Date Type Department Care Team [...] on file 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 Gender Identity Female 01/16/2024 11:18 AM [...] documented as of this encounter Care Teams Media Aid Relationship Specialty Start Date End Date Pal Downey DO PCP - General Internal Medicine 01/25/21 Quinton Rowan MD Referring Physician Cardiology 01/09/19 Tami Flores, TONO [address] [address] Registered Nurse Cook Morning 01/25/21 Cricket Escalante MD [address] [address] Referring Physician Nephrology 03/24/21 Gael Sprague MD PhD [address] [facility] [address] [place] [address] Fellow Endocrinology Diabetes & Metabolism 03/24/21 Brad Turner MD [address] [address] Consulting Physician Obstetrics and Gynecology 03/24/21 Margarita Montoya MD [address] [address] Consulting Physician Trauma Surgery 12/27/21 Luca Lott MD [address] [address] Consulting Physician Cardiology 08/03/22 Pb Galloway MD [address] [address] Cardiothoracic Surgery 05/25/24 Felipe Gerber MD [address] [address] Consulting Physician Cardiology 05/25/24 Claire Rosales LCSW [address] [facility] ([facility] Mailstop [phone] [place] [address] SHOP Outpatient Pulmonologist Intensivist 02/25/25 03/01/25 Claire Rosales LCSW [address] [facility] ([facility] Mailstop [phone] [place] [address] SHOP Outpatient Pulmonologist Intensivist 05/10/25 05/18/25 documented as of this encounter
--- OUTSIDE RECORDS SUMMARY | 2025-05-24 18:42 | XMS_ITS | Referral Summary ---
Author Organization [facility] Address [address] [place] [address] Care Team Providers Care Adult Education Teacher Name Role Phone Quinton Rowan MD Unavailable [phone] Pal Downey DO Primary Care Provider [phone] Tami Flores RN Unavailable Cricket Escalante MD Unavailable [phone] Gael Sprague MD PhD Unavailable Brad Turner MD Unavailable [phone] Margarita Montoya MD Unavailable Luca Lott MD Unavailable Pb Galloway MD Unavailable Felipe Gerber MD Unavailable [phone] Encounters Date Type Department Care Team Description 05/19/2025 SHOP/CHAP Subsequent Outreach [facility] OP CASE MANAGEMENT [address] [place] [id number] Claire Rosales LCSW 05/13/2025 SHOP/CHAP Subsequent Outreach [facility] OP CASE MANAGEMENT [address] [place] [phone] Claire Rosales LCSW 05/12/[address] [facility] Advanced Medicine 8th [place] [address] [place] [address] Luca Lott MD 05/12/[address] [facility] [address] [facility] Medical Office Building 3 [address] [place] [address] Luca Lott MD [facility] 05/12/2025 Telephone [facility] [address] [place] [address] Reagan Vences MD 05/11/2025 12:55 PM CDT - 05/11/2025 2:25 PM CDT Surgery [facility] [address] [place] [address] Luca Lott MD LEFT HEART CATHETERIZATION WITH CORONARY ANGIOGRAPHY AND WITH OR WITHOUT LEFT VENTRICULOGRAM [id number] 05/11/2025 11:13 AM CDT - 05/11/2025 7:34 PM CDT Hospital [facility] [address] [place] [address] Luca Lott MD Chronic heart failure with preserved ejection fraction (HCC) [I50.32] (Primary Dx); Coronary artery disease involving [place] coronary artery of [place] heart without angina pectoris Discharge Disposition: Discharge to home or self care 05/10/2025 SHOP/CHAP Initial Outreach [facility] OP CASE MANAGEMENT [address] [place] [address] Claire Rosales LCSW 05/10/2025 SHOP/CHAP Initial Eligibility Review [facility] OP CASE MANAGEMENT [address] [place] [address] Claire Rosales LCSW 05/07/[address] [facility] Advanced Medicine 8th [place] [address] [place] [address] Luca Lott MD 05/04/2025 7:27 PM CDT - 05/07/2025 5:52 PM CDT Hospital Encounter [facility] 1 [place] [address] Kalen Villegas MD PhD Jorge A, MD Tirso Mejia, Ashley Farnsworth MD Discharge Disposition: Discharge to home or self care 05/04/2025 Telephone [facility] Bed Planning 1 [place] [address] Wiley Pulliam, payment processor Notification 04/29/[address] [facility] [address] [place] [address] Building [address] [place] [phone] Lane Ramos MD PhD S/P placement of cardiac pacemaker; Sick sinus syndrome (HCC) 04/28/[address] [facility] Advanced Medicine 8th [place] [address] [place] [address] Lane Ramos MD PhD 04/27/2025 Orders Only [facility] [address] [place] [address] Eduin Springer MD 04/26/[address] [facility] [address] [facility] Advanced Medicine 8th [place] [address] [place] [address] Luca Lott MD 04/23/2025 Orders Only [address] Building [address] [place] [address] Lane Ramos MD PhD 04/20/2025 10:00 AM CDT - 04/20/2025 11:59 PM CDT Hospital Encounter [address] [address] ESRD (end stage renal disease) (HCC) Discharge Disposition: Discharge to home or self care 04/20/2025 2:00 PM CDT Ancillary Procedure [facility] [address] [place] [address] 3 [address] [place] [address] Palpitations 04/20/[address] [facility] [address] [facility] Medical Office Building [address] [place] [address] Luca Lott MD Palpitations (Primary Dx) 04/07/[address] [facility] Transplant [facility] [address] [facility] [address] Mailstop [phone] [place] [address] Tiarra Mcdermott 04/07/[address] [facility] [address] [facility] [address] Mailstop [id number] [place] [address] Tami Flores, TONO 04/07/2025 11:30 AM CDT Office Visit [facility] [address] [facility] Medical Office Building 3 [address] [place] [address] Luca Lott MD Nonrheumatic aortic valve stenosis (Primary Dx); Coronary artery disease involving [place] coronary artery of [place] heart without angina pectoris 03/27/[address] [facility] [address] [facility] 8th [place] [address] [place] [address] Claire Mcnally, TONO 03/25/2025 10:00 AM CDT - 03/25/2025 11:59 PM CDT Hospital Encounter [address] [address] ESRD (end stage renal disease) (HCC) Discharge Disposition: Discharge to home or self care 03/02/2025 SHOP/CHAP Initial Outreach [facility] OP CASE MANAGEMENT 1 [place] [address] Claire Rosales LCSW 03/01/2025 10:00 AM CDT - 03/01/2025 11:59 PM CDT Hospital Encounter [address] [address] ESRD (end stage renal disease) (HCC) Discharge Disposition: Discharge to home or self care 02/26/2025 SHOP/CHAP Initial Outreach [facility] OP CASE MANAGEMENT [address] [place] [address] BobbyClairey, LATHE OPERATOR 02/25/2025 SHOP/CHAP Initial Outreach [facility] OP CASE MANAGEMENT [address] [place] [address] Claire Rosalesy, LATHE OPERATOR 02/25/2025 SHOP/CHAP Initial Eligibility Review [facility] OP CASE MANAGEMENT [address] [place] [address] BobbyClaire Christine, [facility] 02/20/2025 8:07 PM CDT - 02/24/2025 3:54 PM CDT Hospital Encounter [facility] 1 [place] [address] Elvin Giordano, MD Dany Nails Namrata Nikhil, MD Acute coronary syndrome (HCC) (Primary Dx); Chest pain [R07.9]; Coronary artery disease involving [place] coronary artery of [place] heart without angina pectoris [I25.10] Discharge Disposition: Discharge to home or self care 02/23/2025 11:33 AM CDT - 02/23/2025 12:53 PM CDT Surgery [facility] 1 [place] [address] Luca Lott MD LEFT HEART CATHETERIZATION WITH CORONARY ANGIOGRAPHY AND WITH OR WITHOUT LEFT VENTRICULOGRAM [address] from Last 3 Months Allergies Active Allergy Reactions Criticality Noted Date Comments Amoxicillin Anaphylaxis High Per Armani Dumas MD, patient has previously tolerated cephalosporins. Frank Buckley, PharmD 05/10/2019 Ampicillin Anaphylaxis High 04/29/2015 Per Armani Dumas MD, patient has previously tolerated cephalosporins. Frank Buckley, PharmD 05/10/2019 Ghosh Hives Medium 12/22/2021 Richards beans, navy beans; Is able to eat green beans Clarithromycin Anaphylaxis High Egg Unknown Medium 03/15/2019 Reaction: PT. STATES SHE STOPS BREATHING- pt states it is related to egg whites in Penicillins. Pt eats egg yolks often with no reactions Penicillins Anaphylaxis,Rash,Un known High 04/29/2015 Axzvygw-Vsv-Btc Reductase Inhibitors Muscle pain Medium 02/20/2025 Trialed [...] Application topically daily PD catheter access site 01/10/20 22 Active loratadine (CLARITIN) 10 mg tablet Take 1 tablet (10 mg total) by mouth daily Active levothyroxine (SYNTHROID) 137 mcg tablet Take 1 tablet (137 mcg total) by mouth daily 08/05/20 23 Active acetaminophen (TYLENOL) 325 mg tablet Take 2 tablets (650 mg total) by mouth every 4 (four) hours as needed for pain 05/25/20 24 Active ondansetron ODT (ZOFRAN-ODT) 4 mg disintegrating tablet Take 1 tablet (4 mg total) by mouth every 8 (eight) hours as needed for nausea or vomiting 20 tablet 1 05/25/20 24 Active gabapentin (NEURONTIN) 100 mg capsule Take 1 capsule (100 mg total) by mouth once a week Fridays06/18/20 24 Active nitroglycerin (NITROSTAT) 0.[address] 1 tablet (0.4 mg total) under the tongue every 5 (five) minutes as needed for chest pain May repeat dose q 5 min, up to 3 doses total 30 tablet 11/05/19 25 Active ergocalciferol (VITAMIN D) 50,000 unit capsule Take 1 capsule (50,000 Units total) by mouth once a week sundays11/11/19 25 Active ferric citrate (Auryxia) 210 mg [...] DAY 90 tablet 1 12/08/19 25 Active azithromycin (ZITHROMAX) 500 mg tablet Take 1 tablet (500 mg total) by mouth once as needed (Prior to dental appts) 02/16/20 25 Active vitamin B complex with vitamin C tablet Take 1 tablet by mouth daily Active calcitRIOL (ROCALTROL) 0.25 mcg capsule Take 1 capsule (0.25 mcg total) by mouth daily Sundays02/25/20 25 Active calcium carbonate (OS-MEENA) 1,250 mg (500 mg elemental) tablet Take 1 tablet (1,250 mg total) by mouth daily 30 tablet 02/26/20 25 Active evolocumab (REPATHA) syringe syringe Inject 1 mL (140 mg total) under the skin every 14 (fourteen) days 2 mL 3 04/08/20 25 Active Eliquis 2.5 mg tablet Take 1 tablet (2.5 mg total) by mouth 2 (two) times a day 04/24/20 25 Active metoprolol XL (TOPROL-XL) 25 mg extended release tablet Take 0.5 tablets (12.5 mg total) by mouth daily 45 tablet 3 03/27/20 25 025 Discontin ued(Stop Taking at Discharge ) Active Problems Problem Noted Date Diagnosed Date Acute on chronic diastolic CHF (congestive heart failure) 05/05/2025 Assessment & Plan (05/07/2025 3:38 PM CDT): Presents with worsening PRASAD and chest pain. History of KARINA LAD 10/2024 LM 12/2024, instent restenosis 02/2025 s/p laser atherectomy and KARINA placmeent. On Repatha (last 04/11). Reports she has not taken due to concern afib triggered by new medication. 02/2025 echo with EF 51%, PASP 40-45%. OSH echo 04/24 with LVEF 50-55%, anteroseptum hypokinesis, abnormal diastolic function, severe pHTN w/ PASP 73, moderate- severe TVR, severe MV calcification with mild-moderate stenosis and regurgitation. - continue plavix, holding Apixaban for upcoming LHC - hold metop succinate due to hypotension, previously held OP by cardiology - Repeat TTE owith EF 55-60%, cannot determine diastolic function, no wall motion abnormalities, normal RV, no paravalvular AR with mean gradient 10, severe TR, RSVP 45 - BNP elevated to 47,450 and troponin peak at 192 - EKG without ST segment changes - Dr. Lott plans on completing LHC next week and she will discharge home today with outpatient LHC Assessment & Plan (05/06/2025 12:38 PM CDT): Presents with worsening PRASAD and chest pain. History of KARINA LAD 10/2024 LM 12/2024, instent restenosis 02/2025 s/p laser atherectomy and KARINA placmeent. On Repatha (last 04/11). Reports she has not taken due to concern afib triggered by new medication. 02/2025 echo with EF 51%, PASP 40-45%. OSH echo 04/24 with LVEF 50-55%, anteroseptum hypokinesis, abnormal diastolic function, severe pHTN w/ PASP 73, moderate- severe TVR, severe MV calcification with mild-moderate stenosis and regurgitation. - continue plavix & apixaban --> will discuss with Dr. Lott as last note mentions d/c plavix and transitioning to ASA and apixaban in April - hold metop succinate due to hypotension, previously held OP by cardiology - Repeat TTE ordered - BNP elevated to 47,450 and troponin peak at 192 - EKG without ST segment changes - Dr. Lott aware of her admit and will see her today to determine if further valve intervention or LHC is warranted this AM - Still with marked PRASAD and chest pressure with activity Assessment & Plan (05/05/2025 5:31 PM CDT): Presents with worsening PRASAD and chest pain. History of KARINA LAD 10/2024 LM 12/2024, instent restenosis 02/2025 s/p laser atherectomy and KARINA placmeent. On Repatha (last 04/11). Reports she has not taken due to concern afib triggered by new medication. 02/2025 echo with EF 51%, PASP 40-45%. OSH echo 04/24 with LVEF 50-55%, anteroseptum hypokinesis, abnormal diastolic function, severe pHTN w/ PASP 73, moderate- severe TVR, severe MV calcification with mild-moderate stenosis and regurgitation. - continue plavix & apixaban --> will discuss with Dr. Lott as last note mentions d/c plavix and transitioning to ASA and apixaban in April - hold metop succinate due to hypotension, previously held OP by cardiology - Repeat TTE ordered - BNP elevated to 47,450 and troponin peak at 192 - Dr. 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 She is willing to try the midodrine again though Assessment & Plan (05/06/2025 12:38 PM CDT): SBP 70-80s with MAPs >60 for which she is asymptomatic -AM cortisol level returned normal at 11.7 -Started midodrine 5 mg TID and will monitor pressure -She mentioned today how neither midodrine or fludrocortisone have worked in the past and have just caused side effects for her. She is willing to try the midodrine again though Assessment & Plan (05/05/2025 5:31 PM CDT): SBP 70-80s with MAPs >60 for which she is asymptomatic -AM cortisol level pending -Started midodrine 5 mg TID and will monitor pressure Atrial fibrillation 05/04/2025 Assessment & Plan (05/07/2025 3:38 PM CDT): AT/AF burden 0.8% per device transmission. [facility] admit 04/22-04/24 for afib with work up TSH wnl, hyperkalemic, troponins flat. Reports palpitations stopped last week. Planned direct admission for amiodarone loading, however, patient is no longer wanting to complete this (patient has appropriate concerns about buttermaker side effects of Amio, particularly with her thyroid disease) - Home apixaban BID on hold until after LH - EP consulted -> recommended device interrogation, completed with known A.fib - Telemetry monitoring Assessment & Plan (05/06/2025 12:38 PM CDT): AT/AF burden 0.8% per device transmission. [facility] admit 04/22-04/24 for afib with work up TSH wnl, hyperkalemic, troponins flat. Reports palpitations stopped last week. Planned direct admission for amiodarone loading, however, patient is no longer wanting to complete this (patient has appropriate concerns about fpc side effects of Amio, particularly with her thyroid disease) - Continue home apixaban BID - EP consulted -> recommended device interrogation (completed) and TTE - Telemetry monitoring Assessment & Plan (05/05/2025 5:31 PM CDT): AT/AF burden 0.8% per device transmission. [facility] admit 04/22-04/24 for afib with work up TSH wnl, hyperkalemic, troponins flat. Reports palpitations stopped last week. Planned direct admission for amiodarone loading, however, patient is no longer wanting to complete this - Continue home apixaban BID - EP consulted -> recommended device interrogation (completed) and TTE - Telemetry monitoring Assessment & Plan (05/04/2025 10:43 PM CDT): AT/AF burden 0.8% per device transmission. [facility] admit 04/22-04/24 for afib with work up TSH wnl, hyperkalemic, troponins flat. Reports palpitations stopped last week. Planned direct admission for amiodarone loading, however patient is nervous about starting tonight. - Continue home apixaban BID - EP consult in AM - deferred amiodarone load until AM/cardiology (EKG and labs following every dose with possible cardioversion on last day per [facility]) Other specified hypothyroidism 05/04/2025 Assessment & Plan (05/07/2025 3:38 PM CDT): Continue home synthroid -TSH elevated to 14.5 and T4 low at 0.7 -Will need repeat thyroid studies in 4-6 weeks and if persistently low then dose increased Assessment & Plan (05/06/2025 12:38 PM CDT): Continue home synthroid -TSH elevated to 14.5 and T4 low at 0.7 -Will need repeat thyroid studies in 4-6 weeks and if persistently low then dose increased Assessment & Plan (05/05/2025 5:31 PM CDT): Continue home synthroid -TSH elevated to 14.5 and T4 low at 0.7 -Will need repeat thyroid studies in 4-6 weeks and if persistently low then dose increased Assessment & Plan (05/04/2025 10:43 PM CDT): Continue home synthroid, repeat TSH Chest pain, unspecified type 02/20/2025 Acute coronary syndrome 02/20/2025 Nonrheumatic mitral valve stenosis 02/05/2025 Assessment & Plan (02/05/2025 3:15 PM CDT): Moderate mitral stenosis per TTE, mean gradient 67 mm Hg at a HR of 68 Chest pain 11/10/2024 S/P TAVR (transcatheter aortic valve replacement ) 05/25/2024 Assessment & Plan (05/07/2025 3:38 PM CDT): s/p TAVR 06/2024. Follows with [facility]. Assessment & Plan (05/06/2025 12:38 PM CDT): s/p TAVR 06/2024. Follows with [facility]. Assessment & Plan (05/05/2025 5:31 PM CDT): s/p TAVR 06/2024. Follows with [facility]. Assessment & Plan (05/04/2025 10:43 PM CDT): s/p TAVR 06/2024. Follows with [facility]. 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 Uses yellow bags at baseline for nightly PD. Currently dwelling PD fluid as of this morning. - Neph consulted: continue nightly PD - dose medications for renal disease - continue home calcitriol. 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 Uses yellow bags at baseline for nightly PD. Currently dwelling PD fluid as of this morning. - Neph consulted: continue nightly PD - dose medications for renal disease - continue home calcitriol. 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 Uses yellow bags at baseline for nightly PD. Currently dwelling PD fluid as of this morning. - Neph consulted: plan for PD tonight - dose medications for renal disease - continue home calcitriol. 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 Uses yellow bags at baseline for nightly PD. Currently dwelling PD fluid as of this morning. - Neph C/s: called overnight but no PD machine available until AM, okay to drain dwelling PD fluid - dose medications for renal disease - continue home calcitriol. Assessment & Plan (05/21/2024 2:22 PM CDT): [...] (02/01/2022): Added automatically from request for surgery [id number] Assessment & Plan (02/05/2025 3:15 PM CDT): Undergoing pre transplant evaluation. We will review with Dr. Lott regarding possible candidacy for transplant list given recent interventions. Continued to DAPT Disorder of peritoneal dialysis catheter 022 Overview (12/22/2021): Added automatically from request for surgery [id number] Chronic kidney disease, stage V 10/31/2021 Overview (08/21/2023): Added automatically from request for surgery [id number] Sick sinus syndrome 11/02/2020 Assessment & Plan (05/07/2025 3:38 PM CDT): PPM (medtronic dual chamber 04/2019) -Device interrogated on 05/05 - telemetry Assessment & Plan (05/06/2025 12:38 PM CDT): PPM (medtronic dual chamber 04/2019) -Device interrogated on 05/05 - telemetry Assessment & Plan (05/05/2025 5:31 PM CDT): PPM (medtronic dual chamber 04/2019) -Device interrogated on 05/05 - telemetry Assessment & Plan (05/04/2025 10:43 PM CDT): PPM (medtronic dual chamber 04/2019) - telemetry (HFpEF) heart failure with preserved ejection fr action 10/27/2019 Assessment & Plan (05/05/2025 12:56 AM CDT): KARINA LAD 10/2024 LM 12/2024, instent restenosis 02/2025 s/p laser atherectomy and KARINA placmeent. On Repatha (last 04/11). Reports she has not taken due to concern afib triggered by new medication. 02/2025 echo with EF 51%, PASP 40-45%. OSH echo 04/24 with LVEF 50-55%, anteroseptum hypokinesis, abnormal diastolic function, severe pHTN w/ PASP 73, moderate-severe TVR, severe MV calcification with mild-moderate stenosis and regurgitation. - continue plavix - hold asa - discuss repatha or alterative restart - hold metop succinate, previously held OP by cardiology - obtain OSH echocardiogram - BNP and troponin Assessment & Plan (02/05/2025 3:15 PM CDT): Euvolemic on exam, volume management per PD, followed closely by Nephrology S/P placement of cardiac pacemaker 06/05/2019 Assessment & Plan (05/21/2024 2:22 PM CDT): Medtronic PPM Consolidation of left lower lobe of lung [...] Assessment & Plan (02/25/2019 11:43 AM CDT): [facility] with 95% LAD lesion, had some [...] Assessment & Plan (02/24/2019 9:29 AM CDT): [facility] with 95% LAD lesion, had some [...] Assessment & Plan (02/20/2019 5:17 AM CDT): [facility] with 95% LAD lesion, had some RV dysfunction during AV repair and found to have RCA occlusion following LAD bypass - s/p IABP placement - CABG to LAD and LCA Assessment & Plan (02/19/2019 2:08 AM CDT): [facility] with 95% LAD lesion, had some RV dysfunction during AV repair and found to have RCA occlusion following LAD bypass - s/p IABP placement - CABG to LAD and LCA Assessment & Plan (02/17/2019 7:38 PM CDT): [facility] with 95% LAD lesion, had some RV dysfunction during AV repair and found to have RCA occlusion following LAD bypass - s/p IABP placement - CABG to LAD and LCA - on Epi and Milrinone, wean epi as above Assessment & Plan (02/16/2019 11:38 PM CDT): [facility] with 95% LAD lesion, had some RV dysfunction during AV repair and found to have RCA occlusion following LAD bypass - s/p IABP placement - CABG to LAD and LCA - on Epi and Milrinone of inotropy Assessment & Plan (02/11/2019 6:16 PM CDT): [facility] with 95% LAD lesion, had some RV dysfunction during AV repair and found to have RCA occlusion following LAD bypass - s/p IABP placement - CABG to LAD and LCA - on Epi and Milrinone of inotropy Assessment & Plan (02/08/2019 5:38 PM CDT): -Patient w/ chest pain/SOB along w/ significant troponin elevation -Plan for [facility] w/ possible PCI tomorrow pending results [...] to 4.35 - valve team consulted, 02/09 [facility] with severe 1 vessel disease of [...] (02/09/2019): Added automatically from request for surgery [id number] Assessment & Plan (05/17/2019 9:19 AM CDT): [...] (02/10/2019): Added automatically from request for surgery [id number] Assessment & Plan (05/07/2025 3:38 PM CDT): Presents with worsening PRASAD and chest pain. History of KARINA LAD 10/2024 LM 12/2024, instent restenosis 02/2025 s/p laser atherectomy and KARINA placmeent. On Repatha (last 04/11). Reports she has not taken due to concern afib triggered by new medication. 02/2025 echo with EF 51%, PASP 40-45%. OSH echo 04/24 with LVEF 50-55%, anteroseptum hypokinesis, abnormal diastolic function, severe pHTN w/ PASP 73, moderate- severe TVR, severe MV calcification with mild-moderate stenosis and regurgitation. - continue plavix, holding Apixaban for upcoming LHC - hold metop succinate due to hypotension, previously held OP by cardiology - Repeat TTE owith EF 55-60%, cannot determine diastolic function, no wall motion abnormalities, normal RV, no paravalvular AR with mean gradient 10, severe TR, RSVP 45 - BNP elevated to 47,450 and troponin peak at 192 - EKG without ST segment changes - Dr. Lott plans on completing [facility] next week and she will discharge home today with outpatient [facility] Assessment & Plan (05/06/2025 12:38 PM CDT): Presents with worsening PRASAD and chest pain. History of KARINA LAD 10/2024 LM 12/2024, instent restenosis 02/2025 s/p laser atherectomy and KRAINA placmeent. On Repatha (last 04/11). Reports she has not taken due to concern afib triggered by new medication. 02/2025 echo with EF 51%, PASP 40-45%. OSH echo 04/24 with LVEF 50-55%, anteroseptum hypokinesis, abnormal diastolic function, severe pHTN w/ PASP 73, moderate- severe TVR, severe MV calcification with mild-moderate stenosis and regurgitation. - continue plavix & apixaban --> will discuss with Dr. Lott as last note mentions d/c plavix and transitioning to ASA and apixaban in April hold metop succinate due to hypotension, previously held OP by cardiology - Repeat TTE ordered - BNP elevated to 47,450 and troponin peak at 192 - EKG without ST segment changes - Dr. Lott aware of her admit and will see her today to determine if further valve intervention or LHC is warranted this AM - Still with marked PRASAD and chest pressure with activity Assessment & Plan (05/05/2025 5:31 PM CDT): Presents with worsening PRASAD and chest pain. History of KARINA LAD 10/2024 LM 12/2024, instent restenosis 02/2025 s/p laser atherectomy and KARINA placmeent. On Repatha (last 04/11). Reports she has not taken due to concern afib triggered by new medication. 02/2025 echo with EF 51%, PASP 40-45%. OSH echo 04/24 with LVEF 50-55%, anteroseptum hypokinesis, abnormal diastolic function, severe pHTN w/ PASP 73, moderate- severe TVR, severe MV calcification with mild-moderate stenosis and regurgitation. - continue plavix & apixaban --> will discuss with Dr. Lott as last note mentions d/c plavix and transitioning to ASA and apixaban in April hold metop succinate due to hypotension, previously held OP by cardiology - Repeat TTE ordered - BNP elevated to 47,450 and troponin peak at 192 - Dr. 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 On Repatha (last 04/11). Reports she has not taken due to concern afib triggered by new medication. 02/2025 echo with EF 51%, PASP 40-45%. OSH echo 04/24 with LVEF 50-55%, anteroseptum hypokinesis, abnormal diastolic function, severe pHTN w/ PASP 73, moderate-severe TVR, severe MV calcification with mild-moderate stenosis and regurgitation. - continue plavix - hold asa - discuss repatha or alterative restart - hold metop succinate, previously held OP by cardiology - obtain OSH echocardiogram - BNP and troponin Assessment & Plan (02/05/2025 3:15 PM CDT): [...] with left shoulder pain similar to previous IA -EKG changes per OSH --Slight elevation in [...] CABG-continue aspirin, statin, BB PT/OT Hyperlipidemia 10/29/2018 Assessment & Plan (05/07/2025 3:38 PM CDT): Presents with worsening PRASAD and chest pain. History of KARINA LAD 10/2024 LM 12/2024, instent restenosis 02/2025 s/p laser atherectomy and KARINA placmeent. On Repatha (last 04/11). Reports she has not taken due to concern afib triggered by new medication. 02/2025 echo with EF 51%, PASP 40-45%. OSH echo 04/24 with LVEF 50-55%, anteroseptum hypokinesis, abnormal diastolic function, severe pHTN w/ PASP 73, moderate- severe TVR, severe MV calcification with mild-moderate stenosis and regurgitation. - continue plavix, holding Apixaban for upcoming LH - hold metop succinate due to hypotension, previously held OP by cardiology - Repeat TTE owith EF 55-60%, cannot determine diastolic function, no wall motion abnormalities, normal RV, no paravalvular AR with mean gradient 10, severe TR, RSVP 45 - BNP elevated to 47,450 and troponin peak at 192 - EKG without ST segment changes - Dr. Lott plans on completing C next week and she will discharge home today with outpatient [facility] Assessment & Plan (05/06/2025 12:38 PM CDT): Presents with worsening PRASAD and chest pain. History of KARINA LAD 10/2024 LM 12/2024, instent restenosis 02/2025 s/p laser atherectomy and KARINA placmeent. On Repatha (last 04/11). Reports she has not taken due to concern afib triggered by new medication. 02/2025 echo with EF 51%, PASP 40-45%. OSH echo 04/24 with LVEF 50-55%, anteroseptum hypokinesis, abnormal diastolic function, severe pHTN w/ PASP 73, moderate- severe TVR, severe MV calcification with mild-moderate stenosis and regurgitation. - continue plavix & apixaban --> will discuss with Dr. Lott as last note mentions d/c plavix and transitioning to ASA and apixaban in April - hold metop succinate due to hypotension, previously held OP by cardiology - Repeat TTE ordered - BNP elevated to 47,450 and troponin peak at 192 - EKG without ST segment changes - Dr. Lott aware of her admit and will see her today to determine if further valve intervention or LHC is warranted this AM - Still with marked PRASAD and chest pressure with activity Assessment & Plan (05/05/2025 5:31 PM CDT): Presents with worsening PRASAD and chest pain. History of KARINA LAD 10/2024 LM 12/2024, instent restenosis 02/2025 s/p laser atherectomy and KARINA placmeent. On Repatha (last 04/11). Reports she has not taken due to concern afib triggered by new medication. 02/2025 echo with EF 51%, PASP 40-45%. OSH echo 04/24 with LVEF 50-55%, anteroseptum hypokinesis, abnormal diastolic function, severe pHTN w/ PASP 73, moderate- severe TVR, severe MV calcification with mild-moderate stenosis and regurgitation. - continue plavix & apixaban --> will discuss with Dr. Lott as last note mentions d/c plavix and transitioning to ASA and apixaban in April - hold metop succinate due to hypotension, previously held OP by cardiology - Repeat TTE ordered - BNP elevated to 47,450 and troponin peak at 192 - Dr. 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 On Repatha (last 04/11). Reports she has not taken due to concern afib triggered by new medication. 02/2025 echo with EF 51%, PASP 40-45%. OSH echo 04/24 with LVEF 50-55%, anteroseptum hypokinesis, abnormal diastolic function, severe pHTN w/ PASP 73, moderate-severe TVR, severe MV calcification with mild-moderate stenosis and regurgitation. - continue plavix - hold asa - discuss repatha or alterative restart - hold metop succinate, previously held OP by cardiology - obtain OSH echocardiogram - BNP and troponin Other specified disorders of parathyroid gland 0 [...] currently stable Daily BMPs, while inpatient Home medical office clerk is Dr. Escalante Continue lasix 40 mg [...] post-op around 3.8-3.9 - keep henriquez - CT Cr - lasix and metolazone for FBG [...] kidney disease, baseline Cr 2.4-2.6. F/b OSH medical office clerk. Apparently discussions for potential need for renal txp being discussed. - Cr at baseline on adm - avoid nephrotoxins, renally dose meds - continue calcitriol 0.5 mcg/day - Cr 2.75, received pre-cath hydration, stable 2.7 Headache 05/02/2016 Moderate COPD (chronic obstr uctive pulmonary disease) ([facility]) 11/02/2015 Assessment & Plan (05/07/2025 3:38 PM CDT): Continue home albuterol PRN Assessment & Plan (05/06/2025 12:38 PM CDT): Continue home albuterol PRN Assessment & Plan (05/05/2025 5:31 PM CDT): Continue home albuterol PRN Assessment & Plan (05/04/2025 10:43 PM CDT): Continue home albuterol PRN Assessment & Plan (08/02/2022 5:33 PM CDT): [...] AM CDT): Alexis TAVR 05/21 Followed by [facility], Dr. Lott. CT TAVR [...] [facility] for [facility] Assessment & Plan (05/17/2019 9:28 [...] AV. Referred to valve team by primary case briefer Dr. Rowan. Seen 02/02 by valve team [...] acquired 05/19/2024 05/24/2024 Chest pain 08/02/2022 08/02/2022 Hypothyroidism 05/22/2019 05/05/2025 Assessment & Plan (05/05/2025 5:31 PM CDT): - ctn home synthroid,, repeat TSH Assessment & Plan (05/04/2025 10:43 PM CDT): - ctn home synthroid,, repeat TSH Assessment & Plan (05/21/2024 2:22 PM CDT): [...] 1.1 this admission -Endocrine consult Hypokalemia 05/22/2019 05/07/2025 Assessment & Plan (05/25/2019 10:16 AM CDT): CTM electrolytes, replete potassium cautiously given CKD Assessment & Plan (05/22/2019 12:08 PM CDT): Potassium level 3.4 this morning 2/2 diuresis -Supplemented with 40 mEq PO this morning -Monitor electrolytes daily while diuresing CAD (coronary artery disease) 05/21/2019 05/22/2019 Assessment [...] around 2.4 Dr Escalante is her home medical office clerk Assessment & Plan (02/23/2019 12:20 PM CDT): Pt above POW by 2 kg. Lasix on hold due to elevation in Creatinine Baseline creat is around 2.4 Dr Esclaante is her home medical office clerk Agitation requiring sedation protocol 02/14/2019 02/23/2019 Acute [...] she had reactions to (?). Per OSH medical office clerk's note in Care Everywhere, pt tried metoprolol [...] = 0.6 oz pur e alcohol) occasional [facility] Utilities Answer Date Recorded In the past 12 months has [employer], [employer], or [employer] threatened to shut off services in your home? Patient declined 05/10/2025 Social Connection and Isolation Panel [NHANES] A nswer Date Recorded In a typical week, how many times do you talk on the phone with family, friends, or neighbors? Patient declined 05/10/2025 How often do you get togethe r with friends or relatives? Patient declined 05/10/2025 How often do you attend shinto or spiritism serv ices? Patient declined 05/10/2025 Do you belong to any clubs o r organizations such as shinto groups, unions, fraternal or athletic groups, or [...] any time in the past 12 m [facility], were you homeless or living in a skilled nursing (including now)? Patient declined 05/10/2025 Personal Safety Answer Date Recorded Have you ever been in or are you currently in a harmful physical or emotional relationship or is someone making you feel afraid or unsafe? Denies 05/11/2025 Comments No Sex and Gender Information Value Date Recorded Sex Assigned at Not on file Legal Sex Female 4:06 AM SCHEDULING MANAGER Gender Identity Female 01/16/2024 11:18 AM CDT Sexual Orientation Straight 01/16/2024 11 :18 AM CDT Last Filed Vital Signs Vital Sign Reading Time Taken Comments Blood Pressure 90/66 05/11/2025 7:30 PM CDT Pulse 67 05/11/2025 5:30 PM CDT Temperature 36.6 C (97.9 F) 05/11/2025 11:35 AM CDT Respiratory Rate 19 05/11/2025 6:30 PM CDT Oxygen Saturation 90% 05/11/2025 4:40 PM CDT Inhaled Oxygen Concentration - - Weight 59.7 kg (131 lb 9.6 oz) 05/07/2025 3:42 A M CDT Height 162.6 cm (5' 4) 05/04/2025 7:28 PM CDT Body Mass Index 22.59 05/04/2025 7:28 PM CDT Plan of Treatment Scheduled Procedures Name Priority Associated Diagnoses Date/Ti mo TRANSPLANT KIDNEY ESRD (end stage renal disease) (HCC) Medical Devices Implanted Type Area Cashiers Supervisor Device Identifier Shelf Expiration Date Model / Serial / Lot Angio-Seal Evolution 6fr Vascular Closure [id number] - [id number] - [id number] Implanted:Qty: 1 on 03/09/2022 by Luca Lott MD at [facility] Collagen Right: Femoral [employer] Pam 09/19/2022 [id number] / [id number] / [id number] [employer] Pam Angio-Seal Vip 6fr Closere Device 647369 - [id number] - [id number] Implanted:Qty: 1 on 07/24/2022 by Luca Lott MD at [facility] Collagen [employer] Pam 03/20/2023 [id number] / [id number] / [id number] [employer] Pam Angio-Seal Vip 6fr Closere Device [id number] - [id number] - [id number] Implanted:Qty: 1 on 05/21/2024 at [facility] Collagen Right: Common Femoral Artery [employer] Pam 01/09/2025 [id number] / [id number] / [id number] [employer] Pam Angio-Seal Vip [place]k-Plus 8fr .038in 70cm Hemostatic Latex Free 868983 - [id number] - [id number] Implanted:Qty: 1 on 05/21/2024 by Felipe Gerber MD at [facility] Collagen Right: Common Femoral Artery [employer] Pam 01/06/2025 [id number] / [id number] / [id number] [employer] Pam Angio-Seal Vip 6fr Closere Device 193152 - [id number] - [id number] Implanted:Qty: 1 on 02/23/2025 by Luca Lott MD at [facility] Collagen [employer] Pam 06/15/2025 033530 / [id number] / [id number] Medtronic Cardiac Rhythm Mgmt 5076-52 Capsurefix Novus 6.2fr 2mm 52cm Bipolar Screw In Implantable Latex Free - [id number] - [id number] Implanted:Qty: 1 on 05/15/2019 by Lane Ramos MD PhD at [facility] Lead Medtronic Inc 03/11/2021 5076-52 / [id number] / Medtronic Cardiac Rhythm Mgmt 5076-45 Capsurefix Novus 6.2fr 2mm 45cm Bipolar Screw In Implantable - [id number] - [id number] Implanted:Qty: 1 on 05/15/2019 by Lane Ramos MD PhD at [facility] Lead Medtronic Inc 03/30/2021 5076-45 / [id number] / [employer] [facility] [id number] Linear 7.5fr 6in Insertion Kit Financial Planner Introducer Sheath - [id number] Implanted:Qty: 1 on 02/10/2019 by Luca Lott MD at [facility] Other - see comments CogniK 0684-00 -0480-0 / / Description:IABP Medtronic Inc [id number] [place] Curl Cath Beta-Cap Holden 15fr 57cm 2 Cuff Clamp Adapter - S0 - [id number] Implanted:Qty: 1 on 11/21/2021 by Carlos Kamara MD at [facility] Other - see comments N/A: Abdomen Medtronic Inc 11/30/2022 8811-31 3015 / 0 / [id number] Medtronic Cardiac Rhythm Mgmt W1dr01 Tereza Wirelessly Pacemaker Cardiac - [id number] - [id number] Implanted:Qty: 1 on 05/15/2019 by Lane Ramos MD PhD at [facility] Pacemaker Medtronic Inc [id number] 09/17/2020 W1DR01 / [id number] / Jamil Lifesciences Valve Aortic Trnscath Brown 3 Ultra Resilia 20mm [id number] - [id number] - [id number] Implanted:Qty: 1 on 05/21/2024 by Felipe Gerber MD at [facility] Prosthetic Valve N/A: Aortic Valve [employer] 02/27/2027 [id number] / [id number] / Medtronic Inc Resolute [place] 4mm 2.1-2.7fr 12mm 140cm Rapid Exchange Radiopaque [id number] - [id number] - [id number] Implanted:Qty: 1 on 03/09/2022 by Luca Lott MD at [facility] Stent Left: Coronary Medtronic Inc 12/06/2022 [id number] 012UX / [id number] / [id number] Description:LAD Biotronik Inc Stent Coronary De Rx Cocr Ors Msn 4.0x15mm 017924 - [id number] - [id number] Implanted:Qty: 1 on 07/24/2022 by Luca Lott MD at [facility] Stent [employer] Inc 09/05/2023 607225 / [id number] / [id number] Medtronic Card Vasc Surgery 4.0 X 15mm Clive Macomb Rx Coronary Stent [id number] - [id number] - [id number] Implanted:Qty: 1 on 11/19/2024 by Luca Lott MD at [facility] Stent N/A: Saphenous Vein Graft Medtronic Card Vasc Surgery 05/05/2027 [id number] [id number] / [id number] / [id number] Medtronic Card Vasc Surgery 2.50 X 12mm Clive Macomb Rx Coronary Stent [id number] - [id number] - [id number] Implanted:Qty: 1 on 12/25/2024 by Luca Lott MD at [facility] Stent Medtronic Card Vasc Surgery 06/03/2027 [id number] / [id number] / [id number] Rum[employer] Pam Synergy Xd [place] 3mm 20mm 144cm Delivery System 1 Access Port [id number] - [id number] - [id number] Implanted:Qty: 1 on 02/23/2025 by Luca Lott MD at [facility] Stent [employer] Pam 06/08/2026 [id number] / [id number] / [id number] Painter Vascular System Closure Repair Femoral Artery Suture Mediated Perclose Prostyle 24378-12 - [id number] - [id number] Implanted:Qty: 1 on 05/21/2024 by Felipe Gerber MD at [facility] Vascular Closure Device Left: Common Femoral Artery Painter Vascular 02/17/2026 81278-0 3 / [id number] / [id number] Ter[employer] Pam Angio-Seal Vip 6fr Closere Device 701978 - [id number] - [id number] Implanted:Qty: 1 on 11/19/2024 by Luca Lott MD at [facility] Vascular Closure Device N/A: Saphenous Vein Graft [employer] Pam 04/29/2025 537809 / [id number] / [id number] [employer] Pam Angio-Seal Vip 6fr Closere Device 054664 - [id number] - [id number] Implanted:Qty: 1 on 12/25/2024 by Sanket Quiroz MD at [facility] Vascular Closure Device Right: Common Femoral Artery [employer] Pam 06/30/2025 318591 / [id number] / [id number] Description:RFA [employer] Pam Angio-Seal Vip Bondek-Plus 8fr .038in 70cm Hemostatic Latex Free 661150 - [id number] - [id number] Implanted:Qty: 1 on 12/25/2024 by Sanket Quiroz MD at [facility] Vascular Closure Device Right: Femoral Vein [employer] Pam 07/21/2025 453844 / [id number] / [id number] Description:RFV [employer] Pam Angio-Seal Vip 6fr Closere Device 339364 - [id number] - [id number] Implanted:Qty: 1 on 05/11/2025 by Rio Jacobs MD at [facility] Vascular Closure Device Right: Common Femoral Artery [employer] Pam 12/31/2025 [id number] / [id number] / [id number] [employer] Pam [id number] Supple Ronna-[employer] [place] [employer] 4x4cm Patch Cardiovascular - [id number] - [id number] Implanted:Qty: 1 on 02/11/2019 by Christopher Holman MD at [facility] N/A: Chest [employer] Pam 06/03/2023 [id number] / [id number] 04-0010 / [id number] Jam[employer]iences [id number] Certitude Brown 3 Atrion 18fr Transcatheter Introducer Crimper - [id number] - [id number] Implanted:Qty: 1 on 02/11/2019 by Christopher Holman MD at [facility] N/A: Heart Jamil [employer] [id number] / [id number] / Medtronic Inc [id number] Ol[place] Curl Cath Beta-Cap Holden 15fr 57cm 2 Cuff Clamp Adapter - [id number] Implanted:Qty: 1 on 12/27/2021 by Margarita Montoya MD at [facility] N/A: Abdomen Medtronic Inc 10/14/2023 8811-31 3015 / / Procedures Procedure Name Priority Date/Time Associated Diagnosis Comments EGFR Routine 05/11/2025 6:30 PM CDT DIFFERENTIAL AUTO Routine 05/11/2025 6:3 0 PM CDT CBC WITH AUTO DIFFERENTIAL Routine 05/11/2025 6:30 PM CDT BASIC METABOLIC PANEL Routine 05/11/2025 6:30 PM CDT LEFT HEART CATHETERIZATION WITH CORONARY ANGIOGRAPHY AND WITH AND WITHOUT LEFT VENTRICULOGRAM Routine 05/11/2025 4:14 PM CDT Coronary artery disease involving [place] coronary artery of [place] heart without angina pectoris POCT ACTIVATED CLOTTING TIME, LOW RANGE Routine 05/11/2025 4:12 PM CDT POCT ACTIVATED CLOTTING TIME, LOW RANGE Routine 05/11/2025 3:50 PM CDT POTASSIUM, WHOLE BLOOD STAT 12:00 PM CDT POC BLOOD GAS AND CHEMISTRIES, ARTERIAL Routine 05/11/2025 11:46 AM CDT TRANSTHORACIC ECHO (TTE) COMPLETE W DOPPLER/CF W CONTRAST ED Urgent/IP Urgent 05/07/2025 10:16 AM CDT EGFR Routine 05/07/2025 6:17 AM CDT VITAMIN D 25 HYDROXY Routine 05/07/2025 6:17 AM CDT PTH Routine 05/07/2025 6:17 AM CDT CBC WITHOUT DIFFERENTIAL Routine 05/07/2025 6:17 AM CDT RENAL FUNCTION PANEL Routine 05/07/2025 6:17 AM CDT CORTISOL Timed 05/06/2025 8:36 AM CDT EGFR Routine 05/06/2025 3:41 AM CDT MAGNESIUM Routine 05/06/2025 3:41 AM CDT RENAL FUNCTION PANEL Routine 05/06/2025 3:41 AM CDT CONTINUOUS CYCLIC PERITONEAL DIALYSIS (CCPD) Routine 05/06/2025 12:31 AM CDT CONTINUOUS CYCLIC PERITONEAL DIALYSIS (CCPD) Routine 05/05/2025 4:12 PM CDT TROPONIN I HIGH-SENSITIVITY 6-HOUR Timed 05/05/2025 11:37 AM CDT TROPONIN I HIGH-SENSITIVITY 4-HOUR Timed 05/05/2025 9:06 AM CDT TROPONIN I HIGH-SENSITIVITY 2-HOUR Timed 05/05/2025 6:36 AM CDT T4, FREE Routine 05/05/2025 4:48 AM CDT EGFR Routine 05/05/2025 4:48 AM CDT BILIRUBIN, DIRECT Routine 05/05/2025 4:4 8 AM CDT PROTIME-INR STAT 05/05/2025 4:48 AM CDT PRO B-TYPE NATRIURETIC PEPTIDE Routine 05/05/2025 4:48 AM CDT TROPONIN I HIGH-SENSITIVITY SERIES (BASELINE, 2HR, 4HR, 6HR) Routine 05/05/2025 4:48 AM CDT THYROID FUNCTION CASCADE Routine 05/05/2025 4:48 AM CDT CBC WITHOUT DIFFERENTIAL Routine 05/05/2025 4:48 AM CDT PHOSPHORUS Routine 05/05/2025 4:48 AM CDT MAGNESIUM Routine 05/05/2025 4:48 AM CDT COMPREHENSIVE METABOLIC PANEL Routine 05/05/2025 4:48 AM CDT XR CHEST 1 VIEW ED Urgent/IP Urgent 05/04/2025 11:16 PM CDT ECG 12-LEAD Routine 05/04/2025 8:59 PM CDT CARDIOLOGY DOCUMENT SCAN Routine 04/24/2025 3:35 PM CDT CARDIOLOGY DOCUMENT SCAN Routine 04/23/2025 3:33 PM CDT DEVICE CHECK - REMOTE Routine 04/23/2025 12:51 AM CDT EXTENDED/NURSING HOME HOLTER PATCH (>48 HOURS UP TO 7 DAYS) Routine 04/20/2025 1:47 PM CDT Palpitations HLA ANTIBODY SCREEN - SAB (CLASS I AND CLASS II) Routine 04/20/2025 [...] HIGH-SENSITIVITY 4-HOUR Timed 02/21/2025 2:18 AM CDT HEPATITIS C ANTIBODY Routine 01/28/2025 9:42 AM CDT ESRD (end stage renal disease) (HCC) from Last 3 Months or Most Recently Relevant to Health Maintenance Results * (ABNORMAL) eGFR (05/11/2025 6:30 PM CDT) eGFR 3(L) >=60 mL/min/1. 73 [...] interpretive data was last reviewed 2021. Blood 05/11/2025 6:30 PM CDT 05/11/2025 6:47 PM CDT Luca Lott MD LAB BLOOD ORDERABLES Final R esult [facility] [place] [address] * Differential, auto (05/11/2025 6:30 PM CDT) Neutrophil abs 4.30 1.50 - 6.50 K/cumm Comment:Collection date/time has been modified to: 18:30:00. Previous collection date/time: 17:32:00. Imm gran abs 0.02 0.00 - 0.10 K/cumm [facility] Comment:Collection date/time has been modified to: 18:30:00. Previous collection date/time: 17:32:00. Lymphocyte abs 0.83 0.80 - 3.30 K/cumm [facility] Comment:Collection date/time has been modified to: 18:30:00. Previous collection date/time: 17:32:00. Monocyte abs 0.28 0.20 - 0.80 K/cumm [facility] Comment:Collection date/time has been modified to: 18:30:00. Previous collection date/time: 17:32:00. Eosinophil abs 0.19 0.00 - 0.50 K/cumm [facility] Comment:Collection date/time has been modified to: 18:30:00. Previous collection date/time: 17:32:00. Basophil abs 0.02 0.00 - 0.10 K/cumm [facility] Comment:Collection date/time has been modified to: 18:30:00. Previous collection date/time: 17:32:00. Neutrophil pct 76.1 % [facility] Comment: Collection date/time has been modified to: 18:30:00. Previous collection date/time: 17:32:00. Interpretive Data Percent cell count reference ranges are not reported, since discordance with absolute values may lead to misinterpretation of CBC data. Current Interpretive Data was last revised on 2018. Imm gran pct 0.4 % [facility] Comment: Collection date/time has been modified to: 18:30:00. Previous collection date/time: 17:32:00. Interpretive Data Percent cell count reference ranges are not reported, since discordance with absolute values may lead to misinterpretation of CBC data. Current Interpretive Data was last revised on 2018. Lymphocyte pct 14.7 % [facility] Comment: Collection date/time has been modified to: 18:30:00. Previous collection date/time: 17:32:00. Interpretive Data Percent cell count reference ranges are not reported, since discordance with absolute values may lead to misinterpretation of CBC data. Current Interpretive Data was last revised on 2018. Monocyte pct 5.0 % [facility] Comment: Collection date/time has been modified to: 18:30:00. Previous collection date/time: 17:32:00. Interpretive Data Percent cell count reference ranges are not reported, since discordance with absolute values may lead to misinterpretation of CBC data. Current Interpretive Data was last revised on 2018. Eosinophil pct 3.4 % [facility] Comment: Collection date/time has been modified to: 18:30:00. Previous collection date/time: 17:32:00. Interpretive Data Percent cell count reference ranges are not reported, since discordance with absolute values may lead to misinterpretation of CBC data. Current Interpretive Data was last revised on 2018. Basophil pct 0.4 % [facility] Comment: Collection date/time has been modified to: 18:30:00. Previous collection date/time: 17:32:00. Interpretive Data Percent cell count reference ranges are not reported, since discordance with absolute values may lead to misinterpretation of CBC data. Current Interpretive Data was last revised on 2018. Blood 05/11/2025 6:30 PM CDT 05/11/2025 6:39 PM CDT Luca Lott MD LAB BLOOD ORDERABLES Edited Result - Final [facility] [place] [address] * (ABNORMAL) CBC with auto differential (05/11/2025 6:30 PM CDT) WBC 5.64 3.80 - 9.90 K/cumm Comment:Collection date/time has been modified to: 18:30:00. Previous collection date/time: 17:32:00. Hgb 11.5(L) 11.9 - 15.5 g/dL [facility] Comment:Collection date/time has been modified to: 18:30:00. Previous collection date/time: 17:32:00. Hct 36.8 35.6 - 45.5 % [facility] Comment:Collection date/time has been modified to: 18:30:00. Previous collection date/time: 17:32:00. Plt 158 150 - 400 K/cumm [facility] Comment:Collection date/time has been modified to: 18:30:00. Previous collection date/time: 17:32:00. MPV 10.7 9.1 - 12.3 fL [facility] Comment:Collection date/time has been modified to: 18:30:00. Previous collection date/time: 17:32:00. RBC 3.94 3.90 - 5.20 M/cumm [facility] Comment:Collection date/time has been modified to: 18:30:00. Previous collection date/time: 17:32:00. MCV 93.4 81.3 - 96.4 fL [facility] Comment:Collection date/time has been modified to: 18:30:00. Previous collection date/time: 17:32:00. MCH 29.2 27.1 - 33.3 pg [facility] Comment:Collection date/time has been modified to: 18:30:00. Previous collection date/time: 17:32:00. MCHC 31.3(L) 32.3 - 35.7 g/dL [facility] Comment:Collection date/time has been modified to: 18:30:00. Previous collection date/time: 17:32:00. RDW CV 16.3(H) 11.1 - 14.9 % [facility] Comment:Collection date/time has been modified to: 18:30:00. Previous collection date/time: 17:32:00. RDW SD 55.2(H) 35.7 - 48.1 fL [facility] Comment:Collection date/time has been modified to: 18:30:00. Previous collection date/time: 17:32:00. NRBC abs 0.00 0.00 - 0.01 K/cumm [facility] Comment:Collection date/time has been modified to: 18:30:00. Previous collection date/time: 17:32:00. Blood 05/11/2025 6:30 PM CDT 05/11/2025 6:39 PM CDT us Luca Lott MD LAB BLOOD ORDERABLES Edited Result - Final [facility] [place] [address] * (ABNORMAL) Basic metabolic panel (05/11/2025 6:30 PM CDT) Sodium 134(L) 135 - 145 mmol/L Potassium, pl 5.4(H) 3.3 - 4.9 mmol/L [facility] Chloride 96(L) 97 - 110 mmol/L [facility] CO2 26 22 - 32 mmol/L [facility] Anion gap 12 2 - 15 mmol/L [facility] BUN 57(H) 6 - 25 mg/dL [facility] Creatinine 13.94(H) 0.60 - 1.10 mg/dL [facility] Glucose 114 70 - 199 mg/dL [facility] [...] interpretive data was last revised 2022. 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 Luca Lott MD Narrative 05/11/2025 4:43 PM CDT Table formatting from the original result was not included. Images from the original result were not included. Procedure: CORONARY ANGIOGRAM / PERCUTANEOUS CORONARY INTERVENTION Patient: Estuardo Copeland is a 54 y.o. female : 1970 MR number: [id number] Date of Service: 05/11/2025 Key Worker: Luca Lott MD Fellow: Rio Jacobs MD Fellow: Ramin Nguyen MD Referring physician: Oren INDICATION: Unstable Angina CCS class 3 PATIENT CLINICAL PROFILE: Estuardo Copeland is a 54 y.o. female with a history of Coronary artery disease status post coronary bypass grafting, aortic valve disease status post TAVR with recent TAVR and TAVR and recent atrial fibrillation who presents for worsening angina. Patient had PCI performed in February for InStent restenosis to her vein graft. She felt extremely well until last several weeks when she has had increasing shortness of breath and fatigue similar to her prior stent closure. She now presents for urgent left heart catheterization. PROCEDURE: The risks, benefits and alternatives of the procedures and moderate sedation were explained to the patient and informed consent was obtained. The patient was brought to the microbiological laboratory technician and placed on the table Bilateral groins were prepped and draped in the usual sterile fashion. The right femoral artery site was infiltrated with 2% lidocaine. I provided direct face to face monitoring of intravenous conscious sedation which was administered using Fentanyl and Versed by an independently certified nurse for a total of 75 minutes. The vessel was accessed using a Micropuncture kit and the modified Seldinger technique with a Micro needle, a wire was threaded into the vessel, and a 6Fr Sheath was advanced over the wire into the vessel. Saphenous vein graft to the LAD angiogram performed using a 3D RC guide Left main coronary artery angiogram performed using a 6 Romansh JL 3 guide Percutaneous coronary intervention performed on the Proximal vein graft to the LAD. This was an ACC/AHA Type C. Initial Lesion Length 12mm and final lesion Length 12mm. Initial KAROLINA Flow 3 Final KAROLINA Flow 3. Equipment used: 6 3D RC [place] IVUS Catheter, Stitch Burnisher 50 wire, 0.9 mm laser atherectomy catheter 3 0 x 12 wolverine cutting balloon, 3 5 x 12 NC Sapphire balloon, a 3 0 by 12 agent DCB At the end of the procedure, arteriotomy was successfully closed and hemostasis achieved by a Angio-Seal Patient was transferred to the holding area in stable condition. There were no apparent complications. RESULTS: Coronary Arteriography: Left main coronary: Left main coronary artery is supplying a circumflex only. There is a stent in its proximal segment that has some underexpansion but it is widely patent and similar to her prior catheterization. It fills an OM and a left dominant circumflex Saphenous vein graft to the LAD is patent. At the proximal edge at the site of prior InStent restenosis there is a high-grade 90% lesion present. This is significantly worse than her last post PCI angiogram Percutaneous coronary intervention performed in the saphenous vein graft to the LAD After the diagnostic portion of the case was felt the culprit for the patient's worsening symptoms was likely the InStent restenosis. With great difficulty we got the guide to sit and a Stitch Burnisher 50 wire down into the LAD. Next we took a 0.9 mm laser atherectomy catheter and performed laser atherectomy starting at 45/25 with increasing up to 80 80. We did use laser with contrast for several runs. Next we took a 3-0 wolverine cutting balloon and took it up to 12 atmospheres for 1 minutes time. Next we took a 3 0.5 x 12 mm NC Sapphire balloon and crank it up to 30 atmospheres. We then took our IVUS catheter down that showed minimal neointimal tissue with some underexpansion due to fibrosis in the proximal segment. The luminal gain was sufficient with minimal recoil. Compared to the last IVUS run there was minimal tissue inside the stent. At this point we debated putting a further stent in or trying DCB. She had not had DCP to this before. We took a 3 0 x 12 agent DCB and left it up for 3 minutes time. Final angiographic views showed a good result with 40% residual stenosis and KAROLINA 3 flow down the LAD graft. Then turned our attention to the right common femoral artery whereby Angio-Seal was placed without difficulty. COMPLICATIONS: None DIAGNOSTIC us Luca Lott MD CV CARDIAC CATH PROCEDURES F inal Result * (ABNORMAL) POCT Activated clotting time, low range (05/11/2025 4:12 PM CDT) ACT 284(H) 123 - 168 sec POC Performer [id number] [facility] POC Device Number [id number] [facility] Blood 05/11/2025 4:12 PM CDT 05/11/2025 4:12 PM CDT us Luca Lott MD LAB POCT ORDERABLES - DEVICE Final Result Performing Organization Address [facility]/ZIP Co de Phone Number [facility] [employer] [place] [address] * (ABNORMAL) POCT Activated clotting time, low range (05/11/2025 3:50 PM CDT) ACT 290(H) 123 - 168 sec POC Performer [id number] [facility] POC Device Number [id number] [facility] Blood 05/11/2025 3:50 PM CDT 05/11/2025 3:50 PM CDT Luca Lott MD LAB POCT ORDERABLES - DEVICE Final Result Performing Organization Address [facility] Co de Phone Number [facility] [employer] [place] [address] * (ABNORMAL) Potassium, whole blood (05/11/2025 12:00 PM CDT) Potassium, bld 5.0(H) 3.3 - 4.9 mmol/L Blood 05/11/2025 12:0 0 PM CDT 05/11/2025 12:12 PM CDT us Kasi Garcia [employer]ER [employer]ATOR LAB BLOOD ORDERABLES F inal Result Performing Organization Address City/[facility]/ZIP Co de Phone Number [facility] [employer] [place] [address] * (ABNORMAL) POC Blood Gas and Chemistries, Arterial - (05/11/2025 11:46 AM CDT) [facility] K POC 5.5(H) 3.3 - 4.9 mmol/L Comment: Interpretive Data Not all point of care methods assess for hemolysis. Confirm with instrument and retest K+ if not consistent with clinical signs and symptoms. Current Interpretive Data was last revised on 2024. Blood 05/11/2025 11:4 6 AM CDT 05/11/2025 11:46 AM CDT us Luca Lott MD LAB POCT ORDERABLES - DEVICE Final Result [facility] [place] [address] * TRANSTHORACIC ECHO (TTE) COMPLETE W DOPPLER/CF W CONTRAST (05/07/2025 10:16 AM CDT) [facility] Estimated EF 55-60 % CONS SCIMAGE Anatomical Region Laterality Modality Ultrasound 05/06/2025 3:39 PM CDT Narrative 05/06/2025 6:28 PM CDT [facility] [place] [place] [address] Transthoracic Echocardiographic Report Patient Name: ESTUARDO COPELAND M : 1970 (54y 5m) Gender: F Study Date: 05/06/2025 03:39:15 PM Ht(Inch): 64 Wt(Lb): 132.94 BSA: 1.65 Soil Checker: Brad Tripathi RDCS Location: [id number] Order Provider: ASHLEY CHAHAL Heart Rate: 65 BMI: 22.82 BP: 81 / 65 Ref Provider: ASHLEY CHAHAL PROCEDURES: Echocardiographic Report: Transthoracic complete echo with strain imaging and contrast, 2D, spectral and tissue Doppler, color flow Doppler, M-mode. Additional Procedures: Myocardial strain imaging was performed. Contrast: Contrast Enhancement was Employed: After initial imaging due to sub- optimal quality related to co-morbidity defined by patient's body habitus. 0.4 ml Optison Administered, (2.6 ml wasted). Technically difficult study due to: Body habitus (Pectus Excavatum). Poor acoustic windows. Limited visualization of some cardiac structures precludes the ability to obtain complete measurements - INDICATIONS: Chest pain, Dyspnea, and Heart Failure. CONCLUSIONS: 1. Normal left ventricular cavity size based on 2D measurements. Normal LV wall thickness. The Ejection Fraction is visually estimated to be 55-60 %. Cannot determine diastolic function or LA pressure. The average global longitudinal strain is abnormal. 2. There are no regional wall motion abnormalities. 3. Normal right ventricular size. Normal right ventricular systolic function. Wire noted in the right heart. 4. Mitral valve leaflets appear moderately thickened. Mild mitral valve regurgitation. Mild mitral stenosis.The mean transmitral gradient is: 5 mmHg. 5. A bioprosthetic stent-valve is present in the aortic position. No paravalvular aortic regurgitation.The mean transaortic gradient is 10 mmHg. 6. Severe tricuspid regurgitation. The Estimated RVSP is : 45.0 mmHg. COMPARISONS: No change compared to prior study on: 02/22/25. RECOMMENDATIONS: Consider CAYLA if clinically indicated. ATTESTATION: I have personally reviewed and interpreted this study without fellow or resident. - DISCLAIMER: The study images and the final report will be retained in the patient chart by the Echo Laboratory for the legally required time period. This chart constitutes the legal record of any testing performed. FINDINGS: Left Ventricle: Normal left ventricular cavity size based on 2D measurements. Normal LV wall thickness. The Ejection Fraction is visually estimated to be 55-60 %. Cannot determine diastolic function or LA pressure. The average global longitudinal strain is abnormal. The LV global strain is: -8.7 %. Regional Wall Motion: There are no regional wall motion abnormalities. Right Ventricle: Normal right ventricular size. Normal right ventricular systolic function. Wire noted in the right heart. Left Atrium: The left atrium is normal in size. Right Atrium: Right atrial dilatation. Atrial Septum: Normal interatrial septum. Mitral Valve: Mitral valve leaflets appear moderately thickened. Mild mitral valve regurgitation. Mild mitral stenosis. The mitral valve area by pressure half-time is 2.1 cm2. The mean transmitral gradient is: 5 mmHg. Aortic Valve: Mild aortic valve stenosis. The mean transaortic gradient is 10 mmHg. The aortic valve area by the continuity equation (using VTI) is 2.05 cm2. Aortic valve dimensionless index is 0.88. A bioprosthetic stent-valve is present in the aortic position. No paravalvular aortic regurgitation. Tricuspid Valve: Normal tricuspid valve structure. Severe tricuspid regurgitation. The Estimated RVSP is : 45.0 mmHg. Pulmonic Valve: Mild pulmonic regurgitation. Pericardium: Normal pericardium without pericardial effusion. Small L pleural effusion. Aorta: Normal aortic root size when indexed. The ascending aorta is normal in size when indexed. IVC: IVC is normal in size. The IVC was <2.1 cm and collapsibility >50%. (est. RA pressure 0-5 mmHg). MEASUREMENTS: 2D/MM Value Range Doppler Value Range LVIDd 2D 4.07 cm [ 3.80 - 5.20 ] AV Peak Ayden 2.3 m/s [ 1.0 - 1.7 ] LVIDs 2D 2.95 cm [ 2.20 - 3.50 ] AV Peak PG 21.16 mmHg IVSd 2D 0.63 cm [ 0.60 - 0.90 ] AV Mean PG 10 mmHg LVPWd 2D 0.61 cm [ 0.60 - 0.90 ] AV VTI 45.1 cm LV Thickness Ratio 1.0 LVOT Peak Ayden 1.9 m/s [ 0.7 - 1.1 ] LV FS 2D 23.44 % [ 27.00 - 45.00 ] LVOT Peak PG 14.44 mmHg LV Mass 2D 71.23 g LVOT Mean PG 8 mmHg LV Mass Index 2D 43.17 g/m2 LVOT VTI 39.8 cm RWT 0.30 LVOT Diam 1.72 cm Visually Estimated EF 55-60 % ASHOK VTI 2.05 cm2 LV GLS -8.7 % [ -25.0 - -18.0 ] LVOT/AV VTI 0.88 - Dimensionless index (DVI) LA Length 4C 5.44 cm MV E Peak Ayden 2.0 m/s [ 0.6 - 1.3 ] RV Base Dimen 2D 3.8 cm [ 2.5 - 4.2 ] MV A Peak Ayden 0.7 m/s [ 1.0 - 1.2 ] RA Volume 47.33 ml MV E/A 2.9 ratio [ 0.8 - 1.5 ] RA Volume Index 28.68 ml/m2 MV Peak Ayden 2.3 m/s RVOT Diam 1.26 cm MV Peak PG 21.16 mmHg IVC Diam 1.77 cm MV Mean PG 5 mmHg AoR Diam 2D 2.63 cm [ 2.70 - 3.70 ] MV VTI 57.3 cm Ao Root Index 1.59 cm/m2 [ 1.00 - 2.00 ] MV PHT 104.27 msec [ 20.00 - 100.00 ] Asc Ao Diam 2D 1.63 cm MVA PHT 2.11 cm2 Asc Ao Index 0.99 cm/m2 MV Decel Time 367.23 msec [ 104.00 - 258.00 ] Med E` Ayden 2.4 cm/sec [ 8.0 - 25.0 ] Lat E` Ayden 2.5 cm/sec [ 10.0 - 25.0 ] Average E/E` 81.63 TR Peak Ayden 3.0 m/s [ 1.0 - 2.8 ] TR Peak PG 36.0 mmHg PV Peak Ayden 1.7 m/s [ 0.4 - 0.8 ] PV Peak PG 11.56 mmHg PV Mean PG 4 mmHg RVOT VTI 22.9 Electronically Signed By: Job Mancia MD 05/06/2025 6:27:27 PM CDT Procedure Note Job Gordon MD - 05/06/2025 [facility] Cardiac [place] [address] Transthoracic Echocardiographic Report Patient Name: ESTUARDO COPELAND M : 1970 (54y 5m) Gender: F Study Date: 05/06/2025 03:39:15 PM Ht(Inch): 64 Wt(Lb): 132.94 BSA: 1.65 Soil Checker: Brad Tripathi [facility] Location: [id number] Order Provider: ASHLEY CHAHAL Heart Rate: 65 BMI: 22.82 BP: 81 / 65 Ref Provider:ASHLEY CHAHAL PROCEDURES: Echocardiographic Report: Transthoracic complete echo with strain imagingand contrast, 2D, spectral and tissue Doppler, color flow Doppler, M-mode. Additional Procedures: Myocardial strain imaging was performed. Contrast: Contrast Enhancement was Employed: After initial imaging due tosub- optimal quality related to co-morbidity defined by patient's body habitus. 0.4 mlOptison Administered, (2.6 ml wasted). Technically difficult study due to: Body habitus (Pectus Excavatum). Pooracoustic windows. Limited visualization of some cardiac structures precludes theability to obtain complete measurements - INDICATIONS: Chest pain, Dyspnea, and Heart Failure. CONCLUSIONS: 1. Normal left ventricular cavity size based on 2D measurements. Normal LVwall thickness. The Ejection Fraction is visually estimated to be 55-60 %.Cannot determine diastolic function or LA pressure. The average global longitudinal strainis abnormal. 2. There are no regional wall motion abnormalities. 3. Normal right ventricular size. Normal right ventricular systolicfunction. Wire noted in the right heart. 4. Mitral valve leaflets appear moderately thickened. Mild mitral valveregurgitation. Mild mitral stenosis.The mean transmitral gradient is: 5 mmHg. 5. A bioprosthetic stent-valve is present in the aortic position. Noparavalvular aortic regurgitation.The mean transaortic gradient is 10 mmHg. 6. Severe tricuspid regurgitation. The Estimated RVSP is : 45.0 mmHg. COMPARISONS: No change compared to prior study on: 02/22/25. RECOMMENDATIONS: Consider CAYLA if clinically indicated. ATTESTATION: I have personally reviewed and interpreted this study without fellow orresident. - DISCLAIMER: The study images and the final report will be retained in the patientchart by the Echo Laboratory for the legally required time period. This chart constitutesthe legal record of any testing performed. FINDINGS: Left Ventricle: Normal left ventricular cavity size based on 2Dmeasurements. Normal LV wall thickness. The Ejection Fraction is visually estimated to be 55-60 %.Cannot determine diastolic function or LA pressure. The average globallongitudinal strain is abnormal. The LV global strain is: -8.7 %. Regional Wall Motion: There are no regional wall motion abnormalities. Right Ventricle: Normal right ventricular size. Normal right ventricularsystolic function. Wire noted in the right heart. Left Atrium: The left atrium is normal in size. Right Atrium: Right atrial dilatation. Atrial Septum: Normal interatrial septum. Mitral Valve: Mitral valve leaflets appear moderately thickened. Mildmitral valve regurgitation. Mild mitral stenosis. The mitral valve area by pressurehalf-time is 2.1 cm2. The mean transmitral gradient is: 5 mmHg. Aortic Valve: Mild aortic valve stenosis. The mean transaortic gradient is10 mmHg. The aortic valve area by the continuity equation (using VTI) is 2.05 cm2.Aortic valve dimensionless index is 0.88. A bioprosthetic stent-valve is present in theaortic position. No paravalvular aortic regurgitation. Tricuspid Valve: Normal tricuspid valve structure. Severe tricuspidregurgitation. The Estimated RVSP is : 45.0 mmHg. Pulmonic Valve: Mild pulmonic regurgitation. Pericardium: Normal pericardium without pericardial effusion. Small Lpleural effusion. Aorta: Normal aortic root size when indexed. The ascending aorta is normalin size when indexed. IVC: IVC is normal in size. The IVC was <2.1 cm and collapsibility >50%.(est. RA pressure 0-5 mmHg). MEASUREMENTS: 2D/MM Value Range DopplerValue Range LVIDd 2D 4.07 cm [ 3.80 - 5.20 ] AV Peak Vel2.3 m/s [ 1.0 - 1.7 ] LVIDs 2D 2.95 cm [ 2.20 - 3.50 ] AV Peak PG21.16 mmHg IVSd 2D 0.63 cm [ 0.60 - 0.90 ] AV Mean PG10 mmHg LVPWd 2D 0.61 cm [ 0.60 - 0.90 ] AV VTI45.1 cm LV Thickness Ratio 1.0 LVOT Peak Vel1.9 m/s [ 0.7 - 1.1 ] LV FS 2D 23.44 % [ 27.00 - 45.00 ] LVOT Peak PG14.44 mmHg LV Mass 2D 71.23 g LVOT Mean PG8 mmHg LV Mass Index 2D 43.17 g/m2 LVOT VTI39.8 cm RWT 0.30 LVOT Diam1.72 cm Visually Estimated EF 55-60 % ASHOK VTI2.05 cm2 LV GLS -8.7 % [ -25.0 - -18.0 ] LVOT/AV VTI0.88 - Dimensionless index (DVI) LA Length 4C 5.44 cm MV E Peak Vel2.0 m/s [ 0.6 - 1.3 ] RV Base Dimen 2D 3.8 cm [ 2.5 - 4.2 ] MV A Peak Vel0.7 m/s [ 1.0 - 1.2 ] RA Volume 47.33 ml MV E/A2.9 ratio [ 0.8 - 1.5 ] RA Volume Index 28.68 ml/m2 MV Peak Vel2.3 m/s RVOT Diam 1.26 cm MV Peak PG21.16 mmHg IVC Diam 1.77 cm MV Mean PG5 mmHg AoR Diam 2D 2.63 cm [ 2.70 - 3.70 ] MV VTI57.3 cm Ao Root Index 1.59 cm/m2 [ 1.00 - 2.00 ] MV ZAR598.27 msec [ 20.00 - 100.00 ] Asc Ao Diam 2D 1.63 cm MVA PHT2.11 cm2 Asc Ao Index 0.99 cm/m2 MV Decel Ucuu143.23 msec [ 104.00 - 258.00 ] Med E` Ayden 2.4 cm/sec [ 8.0 - 25.0 ] Lat E` Ayden 2.5 cm/sec [ 10.0 - 25.0 ] Average E/E` 81.63 TR Peak Ayden 3.0 m/s [ 1.0 - 2.8 ] TR Peak PG 36.0 mmHg PV Peak Ayden 1.7 m/s [ 0.4 - 0.8 ] PV Peak PG 11.56 mmHg PV Mean PG 4 mmHg RVOT VTI 22.9 Electronically Signed By: Job Mancia MD 05/06/2025 6:27:27 PM CDT Ashley Chahal MD CV ECHO PROCEDURE S Final Result * (ABNORMAL) eGFR (05/07/2025 6:17 AM CDT) eGFR 3(L) >=60 mL/min/1. 73 [...] interpretive data was last reviewed 2021. Blood 05/07/2025 6:17 AM CDT 05/07/2025 6:55 AM CDT us Ashley Chahal MD LAB BLOOD ORDERAB LES Final Result [facility] [place] [address] * (ABNORMAL) Vitamin D 25 hydroxy (05/07/2025 6:17 AM CDT) [facility] Vitamin D 25-OH 22(L) 30 - 80 ng/mL Blood 05/07/2025 6:17 AM CDT 05/07/2025 6:55 AM CDT us Ashley Chahal MD LAB BLOOD ORDERAB LES Final Result Performing Organization Address City/[facility] Co de Phone Number [facility] [place] [address] * (ABNORMAL) CBC without differential (05/07/2025 6:17 AM CDT) [facility] WBC 6.90 3.80 - 9.90 K/cumm Hgb 12.4 11.9 - 15.5 g/dL [facility] Hct 39.1 35.6 - 45.5 % [facility] Plt 157 150 - 400 K/cumm [facility] MPV 10.4 9.1 - 12.3 fL [facility] RBC 4.19 3.90 - 5.20 M/cumm [facility] MCV 93.3 81.3 - 96.4 fL [facility] MCH 29.6 27.1 - 33.3 pg [facility] MCHC 31.7(L) 32.3 - 35.7 g/dL [facility] RDW CV 16.6(H) 11.1 - 14.9 % [facility] RDW SD 56.4(H) 35.7 - 48.1 fL [facility] NRBC abs 0.00 0.00 - 0.01 K/cumm [facility] Blood 05/07/2025 6:17 AM CDT 05/07/2025 6:55 AM CDT us Ashley Chahal MD LAB BLOOD ORDERAB LES Final Result [facility] [place] [address] * (ABNORMAL) PTH (05/07/2025 6:17 AM CDT) [facility] PTH 9(L) 15 - 65 pg/mL Blood 05/07/2025 6:17 AM CDT 05/07/2025 6:55 AM CDT us Ashley Chahal MD LAB BLOOD ORDERAB LES Final Result Performing Organization Address City/[facility] Co de Phone Number [facility] [place] [address] * (ABNORMAL) Renal function panel (05/07/2025 6:17 AM CDT) [facility] Sodium 136 135 - 145 mmol/L Potassium, pl 5.1(H) 3.3 - 4.9 mmol/L [facility] Chloride 96(L) 97 - 110 mmol/L [facility] CO2 27 22 - 32 mmol/L [facility] Anion gap 13 2 - 15 mmol/L [facility] BUN 52(H) 6 - 25 mg/dL [facility] Creatinine 14.17(H) 0.60 - 1.10 mg/dL [facility] Glucose 86 70 - 199 mg/dL [facility] [...] interpretive data was last revised 2022. Calcium 8.8 8.5 - 10.3 mg/dL [facility] Phosphorus, pl 9.9(H) 2.3 - 4.5 mg/dL [facility] Albumin 2.8(L) 3.5 - 5.0 g/dL [facility] Blood 05/07/2025 6:17 AM CDT 05/07/2025 6:55 AM CDT Ashley Chahal MD LAB BLOOD ORDERAB LES Final Result Performing Organization Address City/[facility] Co de Phone Number [facility] Department of [employer] [place] [address] * Cortisol (05/06/2025 8:36 AM CDT) [facility] Cortisol 11.7 4.8 - 19.5 mcg/dL Comment: Interpretive Data: Morning hours 6-10 a.m. 4.8 - 19.5 mcg/dL Afternoon hours 4-8 p.m. 2.5 - 11.9 mcg/dL This analyte undergoes marked diurnal variation. Current interpretive data was last revised 24. Blood 05/06/2025 8:36 AM CDT 05/06/2025 9:27 AM CDT Ashley Chahal MD LAB BLOOD ORDERAB LES Final Result [facility] Department of [employer] [place] [address] * (ABNORMAL) eGFR (05/06/2025 3:41 AM CDT) eGFR 3(L) >=60 mL/min/1. 73 [...] interpretive data was last reviewed 2021. Blood 05/06/2025 3:41 AM CDT 05/06/2025 4:14 AM CDT us Ashley Chahal MD LAB BLOOD ORDERAB LES Final Result [facility] Department of [employer] [place] [address] * (ABNORMAL) Magnesium (05/06/2025 3:41 AM CDT) Magnesium 2.7(H) 1.4 - 2.5 mg/dL Blood 05/06/2025 3:41 AM CDT 05/06/2025 4:14 AM CDT us Ashley Chahal MD LAB BLOOD ORDERAB LES Final Result Performing Organization Address City/[facility]/ZIP Co de Phone Number [facility] [place] [address] * (ABNORMAL) Renal function panel (05/06/2025 3:41 AM CDT) Sodium 136 135 - 145 mmol/L Potassium, pl 4.9 3.3 - 4.9 mmol/L [facility] Chloride 97 97 - 110 mmol/L [facility] CO2 25 22 - 32 mmol/L [facility] Anion gap 14 2 - 15 mmol/L [facility] BUN 56(H) 6 - 25 mg/dL [facility] Creatinine 14.58(H) 0.60 - 1.10 mg/dL [facility] Glucose 107 70 - 199 mg/dL [facility] [...] interpretive data was last revised 2022. Calcium 9.0 8.5 - 10.3 mg/dL [facility] Phosphorus, pl 10.0(H) 2.3 - 4.5 mg/dL [facility] Albumin 2.7(L) 3.5 - 5.0 g/dL [facility] Blood 05/06/2025 3:41 AM CDT 05/06/2025 4:14 AM CDT us Ashley Chahal MD LAB BLOOD ORDERAB LES Final Result [facility] [place] [address] * (ABNORMAL) Troponin I high-sensitivity 6-hour (05/05/2025 11:37 AM CDT) Trop I hs 172(H) <=17 ng/L Comment: Previous critical value noted within 48 hours ago. Interpretive Data For further hscTnI resources including the diagnostic algorithm and an aid in interpretation, copy and paste this link: https://[employer]org/show/hsTrop-1 Current Interpretive Data last revised 2020. Trop I hs pct delta -11 % [facility] Trop I hs interp Equivocal [facility] Blood 05/05/2025 11:3 7 AM CDT 05/05/2025 12:24 PM CDT Jacqueline Jules MD LAB BLOOD ORDER [place] Final Result Performing Organization Address [facility] Co de Phone Number [facility] [employer] [place] [address] * (ABNORMAL) Troponin I high-sensitivity 4-hour (05/05/2025 9:06 AM CDT) Trop I hs 189(H) <=17 ng/L Comment: Interpretive Data For further hscTnI resources including the diagnostic algorithm and an aid in interpretation, copy and paste this link: https://[employer]org/show/hsTrop-1 Current Interpretive Data last revised 2020. Trop I hs pct delta -3 % [facility] Trop I hs interp Insignificant [facility] Blood 05/05/2025 9:06 AM CDT 05/05/2025 9:54 AM CDT Jacqueline Jules MD LAB BLOOD ORDER [place]ST[place] Final Result Performing Organization Address City/[facility]/ZIP Co de Phone Number [facility] [employer] [place] [address] * (ABNORMAL) Troponin I high-sensitivity 2-hour (05/05/2025 6:36 AM CDT) Trop I hs 192(H) <=17 ng/L Comment: Interpretive Data For further hscTnI resources including the diagnostic algorithm and an aid in interpretation, copy and paste this link: https://[employer]org/show/hsTrop-1 Current Interpretive Data last revised 2020. Trop I hs pct delta -1 % [facility] Trop I hs interp Insignificant [facility] Blood 05/05/2025 6:36 AM CDT 05/05/2025 8:08 AM CDT Jacqueline Jules MD LAB BLOOD ORDER [place]ST[place] Final Result Performing Organization Address [facility] de Phone Number [facility] [place] [address] * (ABNORMAL) Troponin I high-sensitivity series (baseline, 2hr, 4hr, 6hr) (05/05/2025 4:48 AM CDT) Trop I hs 194(H) <=17 ng/L Comment: Interpretive Data For further hscTnI resources including the diagnostic algorithm and an aid in interpretation, copy and paste this link: https://[employer]org/show/hsTrop-1 Current Interpretive Data last revised 2020. Blood 05/05/2025 4:48 AM CDT 05/05/2025 5:03 AM CDT Jacqueline Jules MD LAB BLOOD ORDER WESTON Final Result Performing Organization Address [facility] Co de Phone Number [facility] [place] [address] * (ABNORMAL) eGFR (05/05/2025 4:48 AM CDT) eGFR 3(L) >=60 mL/min/1. 73 [...] interpretive data was last reviewed 2021. Blood 05/05/2025 4:48 AM CDT 05/05/2025 5:03 AM CDT Jacqueline Jules MD LAB BLOOD ORDER WEST[place] Final Result [facility] [place] [address] * (ABNORMAL) Pro B-type natriuretic peptide (05/05/2025 4:48 AM CDT) NT-proBNP 47,450(H) <=300 pg/mL Comment: Repeated on Dilution Interpretive Comments: A. Dyspnea in Acute Care Setting All Ages: < 300 pg/ml, acute heart failure unlikely. < 50 yrs: 300 - 450 pg/ml, further investigation warranted. > 450 pg/ml, acute heart failure likely. 50 - 74 yrs: 300 - 900 pg/ml, further investigation warranted. > 900 pg/ml, acute heart failure likely . > or = 75 yrs: 450 - 1800 pg/ml, further investigation warranted. > 1800 pg/ml, acute heart failure likely. B. Non-acute Setting < 75 yrs < 125 pg/ml, rules out heart failure. > or = 125 pg/ml, further investigation warranted. > or = 75 yrs < 450 pg/ml, rules out heart failure. > or = 450 pg/ml, further investigation warranted. - Knowledge of each individual patient's NT-proBNP range may be more useful than using similar cut-points for every patient. Please note that marked elevations in NT-proBNP levels may be observed in state other than Left Ventricular Congestive Failure, including: acute coronary syndromes, right heart strain/failure (including pulmonary embolism and cor pulmonale), critical illness, renal failure, as well as advanced age. - References: 1. Tino BURNETT et.al. Eur Heart J. 2006:27:330-337. 2. Sosa ARBOLEDA, Solange BERRY. J. AM Prakash Cardiol: Cardiovasc Imag. 2009;2: 216- 225. Interpretive Data Last Revised Date: 2018. Blood 05/05/2025 4:48 AM CDT 05/05/2025 5:03 AM CDT Jacqueline Jules MD LAB BLOOD ORDER WESTON Final Result Performing Organization Address [facility] Co de Phone Number [facility] Department of [employer] [place] [address] * (ABNORMAL) Thyroid Function [place] (05/05/2025 4:48 AM CDT) TSH 14.50(H) 0.30 - 4.20 mcIUnit/mL Blood 05/05/2025 4:48 AM CDT 05/05/2025 5:03 AM CDT Jacqueline Jules MD LAB BLOOD ORDER WEST[place] Final Result Performing Organization Address [facility] de Phone Number [facility] [employer] [place] [address] * Protime-INR (05/05/2025 4:48 AM CDT) PT 12.4 9.7 - 13.0 sec INR 1.14 0.90 - 1.20 [facility] Comment: Interpretive data Oral anticoagulant therapeutic ranges: Venous thromboembolism prophylaxis or treatment: 2.0-3.0 CARDIOLOGY Standard range: 2.0-3.0 High-intensity range: 2.5-3.5 Refer to indication-specific guidelines for appropriate target ranges for prosthetic heart valve replacement. Current interpretive data was last revised on 2019. Blood 05/05/2025 4:48 AM CDT 05/05/2025 5:13 AM CDT Narrative [facility] - 05/05/2025 5:19 AM CDT Baseline prior to apixaban initiation. Jacqueline Jules MD LAB BLOOD ORDER [place] Final Result Performing Organization Address City/[facility]/ZIP Co de Phone Number [facility] Department of [employer] [place] [address] * (ABNORMAL) CBC without differential (05/05/2025 4:48 AM CDT) WBC 5.83 3.80 - 9.90 K/cumm Hgb 11.8(L) 11.9 - 15.5 g/dL [facility] Hct 37.7 35.6 - 45.5 % [facility] Plt 131(L) 150 - 400 K/cumm [facility] MPV 10.9 9.1 - 12.3 fL [facility] RBC 4.00 3.90 - 5.20 M/cumm [facility] MCV 94.3 81.3 - 96.4 fL [facility] MCH 29.5 27.1 - 33.3 pg [facility] MCHC 31.3(L) 32.3 - 35.7 g/dL [facility] RDW CV 16.8(H) 11.1 - 14.9 % [facility] RDW SD 56.8(H) 35.7 - 48.1 fL [facility] NRBC abs 0.00 0.00 - 0.01 K/cumm [facility] Blood 05/05/2025 4:48 AM CDT 05/05/2025 5:04 AM CDT Jacqueline Jules MD LAB BLOOD ORDER [place] Final Result Performing Organization Address City/[facility]/ZIP Co de Phone Number [facility] [place] [address] * (ABNORMAL) T4, free (05/05/2025 4:48 AM CDT) Free T4 0.70(L) 0.90 - 1.70 ng/dL Blood 05/05/2025 4:48 AM CDT 05/05/2025 5:03 AM CDT Narrative [facility] - 05/05/2025 6:23 AM CDT This test was reflexed from a TSH result. Jacqueline Jules MD LAB BLOOD ORDER [place] Edited Result - Final Performing Organization Address City/[facility]/[place] [address] * (ABNORMAL) Phosphorus (05/05/2025 4:48 AM CDT) Phosphorus, pl 11.7(H) 2.3 - 4.5 mg/dL Blood 05/05/2025 4:48 AM CDT 05/05/2025 5:03 AM CDT Jacqueline Jules MD LAB BLOOD ORDER WEST[place] Final Result Performing Organization Address City/[facility]/ZIP Co de Phone Number [facility] [employer] [place] [address] * (ABNORMAL) Magnesium (05/05/2025 4:48 AM CDT) Magnesium 2.9(H) 1.4 - 2.5 mg/dL Blood 05/05/2025 4:48 AM CDT 05/05/2025 5:03 AM CDT Jacqueline Jules MD LAB BLOOD ORDER [place] Final Result Performing Organization Address City/[facility]/ZIP Co de Phone Number [facility] [place] [address] * Bilirubin, direct (05/05/2025 4:48 AM CDT) Bilirubin, direct <0.2 0.1 - 0.3 mg/dL Blood 05/05/2025 4:48 AM CDT 05/05/2025 5:03 AM CDT Jacqueline Jules MD LAB BLOOD ORDER [place] Final Result [facility] [place] [address] * (ABNORMAL) Comprehensive metabolic panel (05/05/2025 4:48 AM CDT) Pathologist [facility] Sodium 140 135 - 145 mmol/L Potassium, pl 5.1(H) 3.3 - 4.9 mmol/L [facility] Chloride 100 97 - 110 mmol/L [facility] CO2 24 22 - 32 mmol/L [facility] Anion gap 16(H) 2 - 15 mmol/L [facility] BUN 60(H) 6 - 25 mg/dL [facility] Creatinine 14.48(H) 0.60 - 1.10 mg/dL [facility] Glucose 91 70 - 199 mg/dL [facility] [...] interpretive data was last revised 2022. Calcium 9.5 8.5 - 10.3 mg/dL [facility] Bilirubin, total 0.2 0.1 - 1.2 mg/dL [facility] Protein, pl 5.6(L) 6.5 - 8.5 g/dL [facility] Albumin 2.8(L) 3.5 - 5.0 g/dL [facility] Alk phos 71 40 - 130 Units/L [facility] ALT 9 7 - 45 Units/L [facility] AST 16 10 - 45 Units/L [facility] Blood 05/05/2025 4:48 AM CDT 05/05/2025 5:03 AM CDT [facility] Lacey Jules MD LAB BLOOD ORDER WESTON Final Result [facility] [place] [address] * XR Chest 1 View (05/04/2025 11:16 PM CDT) Anatomical Region Laterality Modality Body, Chest N/A Digital Radiogra phy 05/05/2025 9:16 AM CDT Impressions 05/05/2025 9:16 AM CDT The current study is compared with the prior radiograph dated 03/19/2025. Median sternotomy wires appear intact and unchanged in position from prior. Post transaortic valve replacement. A two lead pacer device is in place with lead overlying the right atrium and right ventricle. Small left pleural effusion which has increased in size. No definite right pleural effusion. Trace pulmonary edema. No pneumothorax. Cardiomediastinal silhouette is stable. Dictated by: Magdalena Moreno M.D. The radiology attending physician has personally reviewed this study, and had reviewed and/or edited this written report and agrees with it. Electronically signed by: Woodrow Dial M.D. Narrative 05/05/2025 9:16 AM CDT EXAMINATION: 1 view chest radiograph Procedure Note Woodrow Dial MD - 05/05/2025 EXAMINATION: 1 view chest radiograph IMPRESSION: The current study is compared with the prior radiograph dated 03/19/2025. Median sternotomy wires appear intact and unchanged in position from prior. Post transaortic valve replacement. A two lead pacer device is in place with lead overlying the right atrium and right ventricle. Small left pleural effusion which has increased in size. No definite right pleural effusion. Trace pulmonary edema. No pneumothorax. Cardiomediastinal silhouette is stable. Dictated by: Magdalena Moreno M.D. The radiology attending physician has personally reviewed this study, and had reviewed and/or edited this written report and agrees with it. Electronically signed by: Woodrow Dial M.D. Jacqueline Jules MD IMG XR PROCEDUR ES Final Result * ECG 12 lead (05/04/2025 8:59 PM CDT) Pathologist [facility] Ventricular Rate EKG/Min 82 BPM [facility] Atrial Rate 82 BPM [facility] DE-Interval (MSEC) 160 ms [facility] QRS-Interval (MSEC) 84 ms [facility] QT-Interval (MSEC) 368 ms [facility] QTc 429 ms [facility] P [place] -16 degrees [facility] R [place] -27 degrees [facility] T [place] 134 degrees [facility] Diagnosis Atrial-paced rhythm Minimal voltage criteria for LVH, may be normal variant ( Lowman product ) Septal infarct (cited on or before 20-FEB-2025) T wave abnormality, consider lateral ischemia Abnormal ECG When compared with ECG of 22-FEB-2025 09:14, Electronic atrial pacemaker has replaced Sinus rhythm Confirmed by HARJINDER HANDY M.D ([id number]) on 05/05/2025 2:09:39 PM [facility] 05/04/2025 8:59 PM CDT 05/05/2025 2:09 PM CDT Jacqueline Jules MD ECG ORDERABLES Final Result [facility] * Cardiology Document Scan (04/24/2025 3:35 PM CDT) Anatomical Region Laterality Modality Other Eduin Springer MD [facility] C[facility] SERVICES PROCEDU RES Final Result * Cardiology Document Scan (04/23/2025 3:33 PM CDT) Anatomical Region Laterality Modality Other us Eduin Springer MD CV CARDIAC SERVICES PROCEDU RES Final Result * DEVICE CHECK - REMOTE (04/23/2025 12:51 AM CDT) Anatomical Region Laterality Modality Other 04/23/2025 12:5 1 AM CDT Narrative 05/18/2025 7:51 PM CDT Interpretation Summary: Battery and Leads (BL) Normal parameters noted on battery and lead(s) --- 9.0 yrs remaining longevity. Lead impedance, sensing, and threshold trends stable and appropriate. No short V-V intervals. Presenting Rhythm (DE) Atrial Sensing-Ventricular Sensing (-VS) --- /VS (SR) 70s with APC. Arrhythmic events (AE) Paroxysmal atrial fibrillation and/or flutter --- Since 02/14/25: 190 AT/AF detections, max duration 22 min, and AT/AF burden 0.8%, with EGMs appearing to show AF/average V rates 120s/130s. No VHR episodes. Anticoagulation (AC) Patient is not on anticoagulant therapy Transmission Information (TI) Device Summary Report Follow Up (FU) Patient's primary treating physician will be apprised of findings Procedure Note Lane Ramos MD PhD - 05/18/2025 Interpretation Summary: Battery and Leads (BL) Normal parameters noted on battery and lead(s) --- 9.0 yrs remaininglongevity. Lead impedance, sensing, and threshold trends stable andappropriate. No short V-V intervals. Presenting Rhythm (DE) Atrial Sensing-Ventricular Sensing (-VS) --- /VS (SR) 70s with APC. Arrhythmic events (AE) Paroxysmal atrial fibrillation and/or flutter --- Since 02/14/25: 190AT/AF detections, max duration 22 min, and AT/AF burden 0.8%, with EGMsappearing to show AF/average V rates 120s/130s. No VHR episodes. Anticoagulation (AC) Patient is not on anticoagulant therapy Transmission Information (TI) Device Summary Report Follow Up (FU) Patient's primary treating physician will be apprised of findings Lane Ramos MD PhD CV CARDIAC SERVICES PROCEDURES Final Result * Extended/Halfway Holter Patch (>48 hours up to 7 days) (04/20/2025 1:47 PM CDT) Anatomical Region Laterality Modality Electrocardiogra phy 04/27/2025 12:4 8 PM CDT Narrative 05/10/2025 1:47 PM CDT HOLTER MONITOR Patient Name: ESTUARDO COPELAND M : 1970 (54y 5m) Gender: F Study Date: 04/27/2025 12:48:59 PM Ht(Inch): Wt(Lb): BSA: Tech: Location: [facility] Order Provider: LUCA LOTT BMI: Ref Provider: LUCA LOTT PROCEDURES: Holter Report: EXTENDED/NURSING HOME HOLTER PATCH (>48 HOURS UP TO 7 DAYS) [[id number]]. Enrollment Period: 2025-04-27 00:00:00 through 2025-04-29 00:00:00. Location: [facility]. INDICATIONS: R00.2 Palpitations. FINDINGS: Holter Data: Min Rate: 59 BPM Min Rate Timestamp: 2025-04-28 05:23:42 Bradycardia (% of study): 0 Max Rate: 200 BPM Max Rate Timestamp: 2025-04-28 20:17:59 Tachycardia (% of study): 14 Mean Rate: 88 BPM AFib (% of study): 0 Singlets (PACs): 2037 events Couplets (PACs): 284 events Total (PACs): 3917 events Singlets (PVCs): 1435 events Couplets (PVCs): 8 events Total (VE): 1457 events Runs (VT): 6 events Total beats: 54288 SIGNIFICANT PAUSES: 0 >3 sec Protocol: Recording Duration (Ordered): [id number] Recording Duration (Actual): 95947.3 SUMMARY: *The predominant rhythm was Sinus with Frequent Supraventricular Ectopy. *The Maximum Heart Rate recorded was 200 bpm, 04/28 20:17:59, the Minimum Heart Rate recorded was 59 bpm, 04/28 05:23:42, and the Average Heart Rate was 88 bpm. *There were 1,457 VE beats with a burden of 3 %. There were 2 occurrences of Ventricular Tachycardia with the Fastest episode --, and the Longest episode 0 beats, 3. *There were 3,917 SVE beats with a burden of 8 %. There were 115 occurrences of Supraventricular Tachycardia with the Fastest episode 200 bpm, 04/28 20:17:54, and the Longest episode 2m 58.3s, 04/28 12:45:15. *There were 4 Patient Triggers.;. CONCLUSIONS: 1. The PDF can be found in the [facility] Patient chart. Please go to the Cardiology tab, click on the holter or event exam. Scroll to bottom where the ORDER LEVEL Documents reside and click the blue link to the pdf. 2. *The predominant rhythm was Sinus with Frequent Supraventricular Ectopy. *The Maximum Heart Rate recorded was 200 bpm, 04/28 20:17:59, the Minimum Heart Rate recorded was 59 bpm, 04/28 05:23:42, and the Average Heart Rate was 88 bpm. *There were 1,457 VE beats with a burden of 3 %. There were 2 occurrences of Ventricular Tachycardia with the Fastest episode visually about 150bpm, and the Longest episode 3 beats. *There were 3,917 SVE beats with a burden of 8 %. There were 115 occurrences of Supraventricular Tachycardia with the Fastest episode 200 bpm, 04/28 20:17:54, and the Longest episode 2m 58.3s, 04/28 12:45:15. *There were 4 Patient Triggers with marked baseline artifact. No symptoms noted. Cannot confirm VPD/APD/SVT on 3 of these strips. On one strip there appears to be a short run of SVT. Electronically Signed By: Deborah Salcedo M.D. 05/10/2025 12:33:26 PM CDT Electronically Signed By: Deborah Salcedo M.D. 05/10/2025 12:33:26 PM CDT Procedure Note Deborah Salcedo MD - 05/10/2025 HOLTER MONITOR Patient Name: ESTUARDO COPELAND M : 1970 (54y 5m) Gender: F Study Date: 04/27/2025 12:48:59 PM Ht(Inch): Wt(Lb): BSA: Tech: Location: [facility] Order Provider: LUCA LOTT BMI: Ref Provider: LUCA LOTT PROCEDURES: Holter Report: EXTENDED/NURSING HOME HOLTER PATCH (>48 HOURS UP TO 7 DAYS)[[id number]]. Enrollment Period: 2025-04-27 00:00:00 through 2025-04-29 00:00:00. Location: [facility]. INDICATIONS: R00.2 Palpitations. FINDINGS: Holter Data: Min Rate: 59 BPM Min Rate Timestamp: 2025-04-28 05:23:42 Bradycardia (% of study): 0 Max Rate: 200 BPM Max Rate Timestamp: 2025-04-28 20:17:59 Tachycardia (% of study): 14 Mean Rate: 88 BPM AFib (% of study): 0 Singlets (PACs): 2037 events Couplets (PACs): 284 events Total (PACs): 3917 events Singlets (PVCs): 1435 events Couplets (PVCs): 8 events Total (VE): 1457 events Runs (VT): 6 events Total beats: 73953 SIGNIFICANT PAUSES: 0 >3 sec Protocol: Recording Duration (Ordered): [id number] Recording Duration (Actual): 81651.3 SUMMARY: *The predominant rhythm was Sinus with Frequent SupraventricularEctopy. *The Maximum Heart Rate recorded was 200 bpm, 04/28 20:17:59, the Minimum HeartRate recorded was 59 bpm, 04/28 05:23:42, and the Average Heart Rate was 88 bpm. *Therewere 1,457 VE beats with a burden of 3 %. There were 2 occurrences of VentricularTachycardia with the Fastest episode --, and the Longest episode 0 beats, 3. *There were 3,917SVE beats with a burden of 8 %. There were 115 occurrences of SupraventricularTachycardia with the Fastest episode 200 bpm, 04/28 20:17:54, and the Longest episode 2m 58.3s,04/28 12:45:15. *There were 4 Patient Triggers.;. CONCLUSIONS: 1. The PDF can be found in the [facility] Patient chart. Please go to theCardiology tab, click on the holter or event exam. Scroll to bottom where the ORDER LEVELDocuments reside and click the blue link to the pdf. 2. *The predominant rhythm was Sinus with Frequent SupraventricularEctopy. *The Maximum Heart Rate recorded was 200 bpm, 04/28 20:17:59, the Minimum Heart Raterecorded was 59 bpm, 04/28 05:23:42, and the Average Heart Rate was 88 bpm. *There were1,457 VE beats with a burden of 3 %. There were 2 occurrences of Ventricular Tachycardiawith the Fastest episode visually about 150bpm, and the Longest episode 3 beats.*There were 3,917 SVE beats with a burden of 8 %. There were 115 occurrences ofSupraventricular Tachycardia with the Fastest episode 200 bpm, 04/28 20:17:54, and theLongest episode 2m 58.3s, 04/28 12:45:15. *There were 4 Patient Triggers with marked baselineartifact. No symptoms noted. Cannot confirm VPD/APD/SVT on 3 of these strips. On onestrip there appears to be a short run of SVT. Electronically Signed By: Deborah Salcedo M.D. 05/10/2025 12:33:26 PM CDT Electronically Signed By: Deborah Salcedo M.D. 05/10/2025 12:33:26 PM CDT Luca Lott MD CV CARDIAC SERVICES PROCEDUR ES Final Result * HLA Antibody Screen by PRA or SAB per Schedule (Class I and Class II) (04/20/2025 10:00 AM CDT) Blood 04/20/2025 10:0 0 AM CDT Narrative [facility] - SCHEDULING MANAGER Sample received in lab. Single Antigen Antibody Screen ordered. us Salina Hector MD LAB BLOOD ORDERABLES Final Resul t [facility] * HLA Antibody Screen - SAB (Class I and Class II) (04/20/2025 10:00 AM CDT) Class I Treatment EDTA [facility] Class I Dilution 1:1 [facility] Class I Tested Date 04/22/2025 [facility] Class I Result Positive HISTOTRAC Class I CPRA 26 HISTOTRAC Class I Increased Risk B82; Cw5 HISTOTRAC Class I Moderate Risk B42, B54, B55, B56, B75, B81; Cw9 HISTOTRAC Class I Low Risk B67 HISTOTRAC Class II Treatment EDTA HISTOTRAC Class II Dilution 1:1 HISTOTRAC Class II Tested Date 04/22/2025 HISTOTRAC Class II Result Positive HISTOTRAC Class II CPRA 17 HISTOTRAC Class II Moderate Risk DPB1*01:01 HISTOTRAC 04/20/2025 10:0 0 AM CDT 04/22/2025 5:51 PM CDT Narrative HISTOTRAC - 04/22/2025 5:51 PM CDT Single-antigen HLA antibody screen is performed on serum samples using a method developed and validated by the [facility] HLA laboratory based on an FDA-approved IVD kit (LABScreen Single-Antigen, [employer], [place], [place]). All patient serum samples are pretreated with EDTA before the screen to prevent complement interference. Additional serum treatments, such as adsorption and DTT treatment, may be performed as indicated. Interpretive comments: Low risk: MFI [id number]. Moderate risk: MFI [id number]. Increased risk: MFI >/= 5000. The presence [...] antigens to avoid. Testing performed at the [facility], [address] [place] [address], 5th floor, [place], [address]. [facility] # [id number]. Rosa Millan, Ph.D., Social Sciences Chair, HLA Laboratory Wilmer Prescott M.D., Ph.D., Accounts Manager, HLA Laboratory Alma Payton, Ph.D., CLIA Accounts Manager, [facility] Clinical Laboratories Current methodology and interpretive comments last revised on 11/15/2022. us Salina Hector MD LAB BLOOD ORDERABLES Final Resul t HISTOTRAC * HLA Antibody Screen by PRA or SAB per Schedule (Class I and Class II) (03/01/2025 10:00 AM CDT) Blood 03/01/2025 10:0 0 AM CDT Narrative HISTOTRAC - SCHEDULING MANAGER Sample received in lab and stored. No testing performed at this time. us Salina Hector MD LAB BLOOD ORDERABLES Final Resul t FLORIAC * (ABNORMAL) eGFR (02/24/2025 9:50 AM CDT) [...] BLOOD ORDERABLES Final Result Performing Organization Address City/[facility] Co de Phone Number CAMERON DOMINGUEZ [facility] [place] [address] * (ABNORMAL) Differential, auto (02/24/2025 9:50 AM CDT) Neutrophil abs 4.72 1.50 - 6.50 K/cumm Imm gran abs 0.02 0.00 - 0.10 K/cumm [facility] Lymphocyte abs 0.73(L) 0.80 - 3.30 K/cumm [facility] Monocyte abs 0.42 0.20 - 0.80 K/cumm [facility] Eosinophil abs 0.21 0.00 - 0.50 K/cumm [facility] Basophil abs 0.04 0.00 - 0.10 K/cumm [facility] Neutrophil pct 76.9 % [facility] Comment: Interpretive Data Percent cell count reference ranges are not reported, since discordance with absolute values may lead to misinterpretation of CBC data. Current Interpretive Data was last revised on 2018. Imm gran pct 0.3 % [facility] Comment: Interpretive Data Percent cell count reference ranges are not reported, since discordance with absolute values may lead to misinterpretation of CBC data. Current Interpretive Data was last revised on 2018. Lymphocyte pct 11.9 % [facility] Comment: Interpretive Data Percent cell count reference ranges are not reported, since discordance with absolute values may lead to misinterpretation of CBC data. Current Interpretive Data was last revised on 2018. Monocyte pct 6.8 % [facility] Comment: Interpretive Data Percent cell count reference ranges are not reported, since discordance with absolute values may lead to misinterpretation of CBC data. Current Interpretive Data was last revised on 2018. Eosinophil pct 3.4 % [facility] Comment: Interpretive Data Percent cell count reference ranges are not reported, since discordance with absolute values may lead to misinterpretation of CBC data. Current Interpretive Data was last revised on 2018. Basophil pct 0.7 % [facility] Comment: Interpretive Data Percent cell count reference ranges are not reported, since discordance with absolute values may lead to misinterpretation of CBC data. Current Interpretive Data was last revised on 2018. Blood 02/24/2025 9:50 AM CDT 02/24/2025 10:17 AM CDT Dasha Montez DO LAB BLOOD ORDERABLES Final Result CAMERON [facility] [place] [address] * (ABNORMAL) CBC with auto differential (02/24/2025 9:50 AM CDT) WBC 6.14 3.80 - 9.90 K/cumm Hgb 12.5 11.9 - 15.5 g/dL [facility] Hct 39.5 35.6 - 45.5 % [facility] Plt 177 150 - 400 K/cumm [facility] MPV 10.8 9.1 - 12.3 fL [facility] RBC 4.37 3.90 - 5.20 M/cumm [facility] MCV 90.4 81.3 - 96.4 fL [facility] MCH 28.6 27.1 - 33.3 pg [facility] MCHC 31.6(L) 32.3 - 35.7 g/dL [facility] RDW CV 15.9(H) 11.1 - 14.9 % [facility] RDW SD 51.0(H) 35.7 - 48.1 fL [facility] NRBC abs 0.00 0.00 - 0.01 K/cumm [facility] Blood 02/24/2025 9:50 AM CDT 02/24/2025 10:17 AM CDT Dasha Montez DO LAB BLOOD ORDERABLES Final Result [facility] [place] [address] * (ABNORMAL) Basic metabolic panel (02/24/2025 9:50 AM CDT) [facility] Sodium 136 135 - 145 mmol/L Potassium, pl 5.0(H) 3.3 - 4.9 mmol/L [facility] Chloride 93(L) 97 - 110 mmol/L [facility] CO2 27 22 - 32 mmol/L [facility] Anion gap 16(H) 2 - 15 mmol/L [facility] BUN 43(H) 6 - 25 mg/dL [facility] Creatinine 11.83(H) 0.60 - 1.10 mg/dL [facility] Glucose 82 70 - 199 mg/dL [facility] [...] Calcium 7.9(L) 8.5 - 10.3 mg/dL [facility] Blood 02/24/2025 9:50 AM CDT 02/24/2025 10:17 AM CDT Dasha Montez DO LAB BLOOD ORDERABLES Final Result [facility] [place] [address] * (ABNORMAL) eGFR (02/23/2025 11:43 PM CDT) [...] BLOOD ORDERABLES Final Result Performing Organization Address [facility] Co de Phone Number CAMERON [facility] [place] [address] * [employer] clopidogrel (02/23/2025 11:43 PM CDT) [...] CDT 02/24/2025 12:16 AM CDT us Ellie Sarkar MD LAB BLOOD ORDERABLES Fin al Result Performing Organization Address City/[facility]/ZIP Co de [facility] [place] [address] * (ABNORMAL) Phosphorus (02/23/2025 11:43 PM CDT) Phosphorus, pl 7.6(H) 2.3 - 4.5 mg/dL Blood 02/23/2025 11:4 3 PM CDT 02/24/2025 12:22 AM CDT Jaimie Giordano MD LAB BLOOD ORDERABLES Final Result [facility] [place] [address] * Magnesium (02/23/2025 11:43 PM CDT) Pathologist [facility] Magnesium 2.4 1.4 - 2.5 mg/dL Blood 02/23/2025 11:4 3 PM CDT 02/24/2025 12:22 AM CDT Jaimie Giordano MD LAB BLOOD ORDERABLES Final Result Performing Organization Address [facility] de Phone Number [facility] [place] [address] * (ABNORMAL) Basic metabolic panel (02/23/2025 11:43 PM CDT) Pathologist [facility] Sodium 133(L) 135 - 145 mmol/L Potassium, pl 4.9 3.3 - 4.9 mmol/L [facility] Chloride 95(L) 97 - 110 mmol/L [facility] CO2 27 22 - 32 mmol/L [facility] Anion gap 11 2 - 15 mmol/L [facility] BUN 52(H) 6 - 25 mg/dL [facility] Creatinine 11.94(H) 0.60 - 1.10 mg/dL [facility] Glucose 89 70 - 199 mg/dL [facility] [...] 2022. Calcium 8.0(L) 8.5 - 10.3 mg/dL [facility] Blood 02/23/2025 11:4 3 PM CDT 02/24/2025 12:22 AM CDT Jaimie Giordano MD LAB BLOOD ORDERABLES Final Result [facility] [place] [address] * LEFT HEART CATHETERIZATION WITH CORONARY ANGIOGRAPHY [...] 54 y.o. female : 1970 MR number: [id number] Date of Service: 02/23/2025 Key Worker: Luca Lott MD Fellow: Sanket Quiroz MD [...] vein graft to her LAD and her [place] left main. She now presents for urgent cardiac catheterization PROCEDURE: The risks, benefits and alternatives of the procedures and moderate sedation were explained to the patient and informed consent was obtained. The patient was brought to the microbiological laboratory technician and placed on the table [...] the LAD angiogram performed using a 6 Romansh 3D RC Percutaneous coronary intervention performed on theSVG to the Proximal LAD. This was an ACC/AHA Type C. Initial Lesion Length 12mm and final lesion Length 20mm. Initial KAROLINA Flow 3 Final KAROLINA Flow 3. Equipment used: 6 3DRC, [employer] [place] IVUS Catheter, Stitch Burnisher 50 wire, 0.9 mm laser atherectomy catheter [...] it was extremely difficult. We used a Stitch Burnisher 50 wire with extreme difficulty wire through [...] of dissection or perforation. COMPLICATIONS: None DIAGNOSTIC us Ellie Sarkar MD CV CARDIAC CATH PROCEDUR ES Final Result * (ABNORMAL) POCT Activated clotting time, low range (02/23/2025 1:41 PM CDT) ACT 319(H) 123 - 168 sec POC Performer [id number] [facility] POC Device Number [id number] [facility] Blood 02/23/2025 1:41 PM CDT 02/23/2025 1:41 PM CDT Ellie Sarkar MD LAB POCT ORDERABLES - DE VICE Final Result Performing Organization Address [facility] Co de Phone Number [facility] [place] [address] * (ABNORMAL) POCT Activated clotting time, low range (02/23/2025 12:35 PM CDT) ACT 351(H) 123 - 168 sec POC Performer [id number] [facility] POC Device Number [id number] [facility] Blood 02/23/2025 12:3 5 PM CDT 02/23/2025 12:35 PM CDT Ellie Sarkar MD LAB POCT ORDERABLES - DE VICE Final Result Performing Organization Address [facility] de Phone Number [facility] [place] [address] * (ABNORMAL) aPTT (02/23/2025 6:36 AM CDT) Pathologist [facility] aPTT 80(H) 28 - 38 sec Comment: Interpretive Data Heparin therapeutic range: 66.0 - 100.0 seconds. Range based on correlation with therapeutic heparin activity range of 0.3 - 0.7 Units/mL. Current interpretive data was last revised on 2023. Blood 02/23/2025 6:36 AM CDT 02/23/2025 7:00 AM CDT us Heaven Lerner MD LAB BLOOD ORDERABLES Final Result Performing Organization Address [facility] Co de Phone Number CERNER [facility] [place] [address] * (ABNORMAL) eGFR (02/22/2025 11:07 PM CDT) [...] MD LAB BLOOD ORDERABLES Final Result CAMERON [facility] [place] [address] * (ABNORMAL) aPTT (02/22/2025 11:07 PM CDT) aPTT 69(H) 28 - 38 sec Comment: Interpretive Data Heparin therapeutic range: 66.0 - 100.0 seconds. Range based on correlation with therapeutic heparin activity range of 0.3 - 0.7 Units/mL. Current interpretive data was last revised on 2023. Blood 02/22/2025 11:0 7 PM CDT 02/22/2025 11:52 PM CDT Ellie Sarkar MD LAB BLOOD ORDERABLES Fin al Result Performing Organization Address [facility] Co de Phone Number [facility] [place] [address] * (ABNORMAL) Phosphorus (02/22/2025 11:07 PM CDT) [facility] Phosphorus, pl 7.2(H) 2.3 - 4.5 mg/dL Blood 02/22/2025 11:0 7 PM CDT 02/22/2025 11:50 PM CDT Jaimie Giordano MD LAB BLOOD ORDERABLES Final Result Performing Organization Address [facility] de Phone Number [facility] [place] [address] * Magnesium (02/22/2025 11:07 PM CDT) [facility] Magnesium 2.5 1.4 - 2.5 mg/dL Blood 02/22/2025 11:0 7 PM CDT 02/22/2025 11:50 PM CDT Jaimie Giordano MD LAB BLOOD ORDERABLES Final Result Performing Organization Address [facility] de Phone Number [facility] [place] [address] * (ABNORMAL) Basic metabolic panel (02/22/2025 11:07 PM CDT) [facility] Sodium 134(L) 135 - 145 mmol/L Potassium, pl 4.5 3.3 - 4.9 mmol/L [facility] Chloride 95(L) 97 - 110 mmol/L [facility] CO2 28 22 - 32 mmol/L [facility] Anion gap 11 2 - 15 mmol/L [facility] BUN 56(H) 6 - 25 mg/dL [facility] Creatinine 11.97(H) 0.60 - 1.10 mg/dL [facility] Glucose 104 70 - 199 mg/dL [facility] [...] Calcium 7.8(L) 8.5 - 10.3 mg/dL [facility] Blood 02/22/2025 11:0 7 PM CDT 02/22/2025 11:50 PM CDT Jaimie Giordano MD LAB BLOOD ORDERABLES Final Result Performing Organization Address City/[facility] Co de Phone Number [facility] Department [place] [employer] [place] [address] * (ABNORMAL) aPTT (02/22/2025 2:25 PM CDT) [...] BLOOD ORDERABLES Final Result Performing Organization Address City/[facility]/ZIP Co de Phone Number [facility] [place] [address] * TRANSTHORACIC ECHO (TTE) COMPLETE W DOPPLER/CF W CONTRAST (02/22/2025 1:39 PM CDT) EF Mod BP 51 % CONS SCIMAGE Anatomical Region Laterality Modality Ultrasound 02/22/2025 12:3 8 PM CDT Narrative 02/22/2025 2:49 PM CDT [facility] Cardiac [place] [address] Transthoracic Echocardiographic Report Patient Name: ESTUARDO COPELAND M : 1970 (54y 3m) Gender: F Study Date: 02/22/2025 12:38:48 PM Ht(Inch): 64 Wt(Lb): 123.9 BSA: 1.59 Soil Checker: Marisol Arciniega RDCS [facility] Location: [id number] Order Provider: ELLIE SARKAR Heart Rate: 75 BMI: 21.27 BP: 90 / 69 Ref Provider: ELLIE SARKAR PROCEDURES: Echocardiographic Report: Transthoracic complete echo with [...] flow reversal in the hepatic veins. Mild DE. Est. PASP 40-45 mm Hg. 7. Physiologic [...] Procedure Note Rc Koehler MD - 02/22/2025 [facility] Cardiac [place] [address] Transthoracic Echocardiographic Report Patient Name: ESTUARDO COPELAND M : 1970 (54y 3m) Gender: F Study Date: 02/22/2025 12:38:48 PM Ht(Inch): 64 Wt(Lb): 123.9 BSA: 1.59 Soil Checker: Marisol Arciniega RD, [facility] Location: [id number] OrderProvider: ELLIE SARKAR Heart Rate: 75 BMI: 21.27 BP: 90 / 69 Ref Provider: ELLIE SARKAR PROCEDURES: Echocardiographic Report: Transthoracic complete echo with [...] systolic flow reversal in the hepatic veins.Mild DE. Est. PASP 40-45 mm Hg. 7. Physiologic [...] [ 2.70 - 3.70 ] MV Decel Edvg692.43 msec [ 104.00 - 258.00 ] Ao [...] Wall Motion Analysis - Resting us Ellie Sarkar MD CV ECHO PROCEDURES Final Result * ECG 12 lead (02/22/2025 9:14 AM CDT) Pathologist [facility] Ventricular Rate EKG/Min 80 BPM [facility] Atrial Rate 80 BPM [facility] DE-Interval (MSEC) 96 ms [facility] QRS-Interval (MSEC) 90 ms [facility] QT-Interval (MSEC) 412 ms [facility] QTc 475 ms [facility] P Harwood 90 degrees [facility] R Har[place] -30 degrees [facility] T Harwood 133 degrees [facility] Diagnosis Sinus rhythm with sinus arrhythmia with short DE Left axis deviation Left ventricular hypertrophy ( Romhilt-Pierce ) Cannot rule out Septal infarct (cited on 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-FEB-2025) ST & T wave abnormality, consider lateral ischemia Abnormal ECG When compared with ECG of 22-FEB-2025 01:51, (unconfirmed) Sinus rhythm has replaced Atrial fibrillation Confirmed by HARJINDER HANDY M.D ([id number]) on 03/05/2025 11:42:44 AM [facility] 02/22/2025 9:14 AM CDT 03/05/2025 11:42 AM CDT us Jaimie Giordano MD ECG ORDERABLES Victoria l Result [facility] * (ABNORMAL) Troponin I high-sensitivity 4-hour (02/22/2025 6:24 AM CDT) Trop I hs 1,868(C) <=17 ng/L Comment: Previous critical value noted within 48 hours ago. Interpretive Data For further hscTnI resources including the diagnostic algorithm and an aid in interpretation, copy and paste this link: [email or web address] Current Interpretive Data last revised 2020. Trop I hs pct delta -19(C) % [facility] Comment:Previous critical va lue noted within 48 hours ago. Trop I hs interp Significa nt(C) [facility] Comment:Previous critical va lue noted within 48 hours ago. Blood 02/22/2025 6:24 AM CDT 02/22/2025 6:48 AM CDT Milton Rubio MD LAB BLOOD ORDERABLES Final Resul t Performing Organization Address [facility] Co de Phone Number [facility] [place] [address] * (ABNORMAL) Troponin I high-sensitivity 2-hour (02/22/2025 4:51 AM CDT) Trop I hs 2,146(C) <=17 ng/L Comment: Previous critical value noted within 48 hours ago. Interpretive Data For further hscTnI resources including the diagnostic algorithm and an aid in interpretation, copy and paste this link: [email or web address] Current Interpretive Data last revised 2020. Trop I hs pct delta -7 % [facility] Trop I hs interp Equivocal [facility] Blood 02/22/2025 4:51 AM CDT 02/22/2025 5:26 AM CDT Milton Rubio MD LAB BLOOD ORDERABLES Final Resul t Performing Organization Address [facility] [place] [address] * (ABNORMAL) aPTT (02/22/2025 4:51 AM CDT) aPTT 122(H) 28 - 38 sec Comment: Interpretive Data Heparin therapeutic range: 66.0 - 100.0 seconds. Range based on correlation with therapeutic heparin activity range of 0.3 - 0.7 Units/mL. Current interpretive data was last revised on 2023. Blood 02/22/2025 4:51 AM CDT 02/22/2025 5:29 AM CDT Milton Rubio MD LAB BLOOD ORDERABLES Final Resul t Performing Organization Address [facility] de Phone Number [facility] [place] [address] * Infection Prevention Anthony auris PCR, surveillance Axilla/Groin (02/22/2025 2:05 AM CDT) Anthony auris DNA Not Detected Not Detected [facility] Comment: Interpretive Data Testing performed by [facility] Molecular Infectious Disease Laboratory using the Pablo estelle 6800 Anthony auris assay. This assay detects DNA from Anthony auris using Real-Time PCR. This assay is laboratory developed and is not cleared by the [facility] Food and Drug Administration. The performance characteristics have been verified by the [facility] Molecular Infectious Disease Laboratory. Axilla/Groin 02/22/2025 2:05 AM CDT 02/22/2025 3:14 AM CDT Narrative [facility]ERON [facility] - 02/22/2025 2:38 PM CDT Order placed by [facility] due to ring surveillance. Instant Order Generic Provider LAB MICROBIOLOGY - GENERAL ORDERABLES Final Result Performing Organization Address [facility] Co de Phone Number [facility] [place] [address] [facility] * (ABNORMAL) Troponin I high-sensitivity series [...] LAB BLOOD ORDERABLES Final Resul t CAMERON [facility] [place] [address] * (ABNORMAL) eGFR (02/22/2025 2:05 AM CDT) [...] ORDERABLES Final Resul t Performing Organization Address City/[facility] Co de Phone Number [facility] [place] [address] * Magnesium (02/22/2025 2:05 AM CDT) Pathologist [facility] Magnesium 2.5 1.4 - 2.5 mg/dL Blood 02/22/2025 2:05 AM CDT 02/22/2025 2:58 AM CDT us Milton Rubio MD LAB BLOOD ORDERABLES Final Resul t Performing Organization Address [facility] de Phone Number [facility] [place] [address] * (ABNORMAL) Comprehensive metabolic panel (02/22/2025 2:05 AM CDT) Sodium 138 135 - 145 mmol/L Potassium, pl 4.3 3.3 - 4.9 mmol/L [facility] Chloride 95(L) 97 - 110 mmol/L [facility] CO2 26 22 - 32 mmol/L [facility] Anion gap 17(H) 2 - 15 mmol/L [facility] BUN 55(H) 6 - 25 mg/dL [facility] Creatinine 12.63(H) 0.60 - 1.10 mg/dL [facility] Glucose 99 70 - 199 mg/dL [facility] [...] Calcium 8.1(L) 8.5 - 10.3 mg/dL [facility] Bilirubin, total 0.2 0.1 - 1.2 mg/dL [facility] Protein, pl 6.0(L) 6.5 - 8.5 g/dL [facility] Albumin 2.6(L) 3.5 - 5.0 g/dL [facility] Alk phos 59 40 - 130 Units/L [facility] ALT 14 7 - 45 Units/L [facility] AST 20 10 - 45 Units/L [facility] Blood 02/22/2025 2:05 AM CDT 02/22/2025 2:58 AM CDT us Milton Rubio MD LAB BLOOD ORDERABLES Final Resul t [facility] [place] [address] * ECG 12 lead (02/22/2025 1:45 AM CDT) Ventricular Rate EKG/Min 137 BPM [facility] QRS-Interval (MSEC) 94 ms [facility] QT-Interval (MSEC) 316 ms [facility] QTc 477 ms [facility] R Harwood -41 degrees [facility] T Harwood 137 degrees [facility] Diagnosis Age and gender specific ECG analysis Sinus tachycardia Anteroseptal ST-elevation Poor R-wave progression in the precordial leads Left axis deviation Minimal voltage criteria for LVH, may be normal variant ( Lowman product ) Anteroseptal infarct , possibly acute T wave abnormality, consider lateral ischemia Abnormal ECG No previous ECGs available Confirmed by HARJINDER HANDY M.D ([id number]) on 02/23/2025 3:10:53 PM [facility] 02/22/2025 1:45 AM CDT 02/23/2025 3:10 PM CDT us Jaimie Giordano MD ECG ORDERABLES Victoria l Result [facility] * (ABNORMAL) eGFR (02/21/2025 8:31 PM CDT) [...] 8:31 PM CDT 02/21/2025 9:23 PM CDT Jaimie Giordano MD LAB BLOOD ORDERABLES Final Result [facility] [place] [address] * Critical Result Callback Chemistry (02/21/2025 8:31 PM CDT) Date Notified [id number] Time Notified 2153 [facility] TestName Calcium CAMERON SALOMON Called/Read Back Jose BARNES [facility] Credentials RN CAMERON DOMINGUEZ Called By PD CAMERON DOMINGUEZ Blood 02/21/2025 8:31 PM CDT 02/21/2025 9:23 PM CDT us Jaimie Giordano MD LAB BLOOD ORDERABLES Final Result Performing Organization Address [facility] de Phone Number [facility] [employer] [place] [address] * Critical Result Callback Chemistry (02/21/2025 8:31 PM CDT) Date Notified [id number] Time Notified 2128 [facility] TestName Ca Ionized [facility] Called/Read Back Parminder BARNES [facility] HOSPITAL Credentials RN [facility] Called By PD [facility] Blood 02/21/2025 8:31 PM CDT 02/21/2025 9:00 PM CDT Ellie Sarkar MD LAB BLOOD ORDERABLES Fin al Result Performing Organization Address [facility] de Phone Number [facility] [employer] [place] [address] * (ABNORMAL) Calcium, ionized (02/21/2025 8:31 PM CDT) Calcium, Ionized 3.17(C) 4.50 - 5.10 mg/dL Blood 02/21/2025 8:31 PM CDT 02/21/2025 9:00 PM CDT us Ellie Sarkar MD LAB BLOOD ORDERABLES Fin al Result Performing Organization Address [facility] de Phone Number [facility] [employer] [place] [address] * (ABNORMAL) aPTT (02/21/2025 8:31 PM CDT) aPTT 52(H) 28 - 38 sec Comment: Interpretive Data Heparin therapeutic range: 66.0 - 100.0 seconds. Range based on correlation with therapeutic heparin activity range of 0.3 - 0.7 Units/mL. Current interpretive data was last revised on 2023. Blood 02/21/2025 8:31 PM CDT 02/21/2025 9:05 PM CDT Marie [facility] - 02/21/2025 9:15 PM CDT STAT [...] MD LAB BLOOD ORDERABL ES Final Result [facility] Department of [employer] [place] [address] * (ABNORMAL) Phosphorus (02/21/2025 8:31 PM CDT) Pathologist [facility] Phosphorus, pl 8.4(H) 2.3 - 4.5 mg/dL Blood 02/21/2025 8:31 PM CDT 02/21/2025 9:00 PM CDT Jaimie Giordano MD LAB BLOOD ORDERABLES Final Result [facility] [employer] [place] [address] * Magnesium (02/21/2025 8:31 PM CDT) [facility] Magnesium 2.4 1.4 - 2.5 mg/dL Blood 02/21/2025 8:31 PM CDT 02/21/2025 9:00 PM CDT us Jaimie Giordano MD LAB BLOOD ORDERABLES Final Result [facility] [place] [address] * (ABNORMAL) Basic metabolic panel (02/21/2025 8:31 PM CDT) [facility] Sodium 139 135 - 145 mmol/L Potassium, pl 4.6 3.3 - 4.9 mmol/L [facility] Chloride 94(L) 97 - 110 mmol/L [facility] CO2 27 22 - 32 mmol/L [facility] Anion gap 18(H) 2 - 15 mmol/L [facility] BUN 53(H) 6 - 25 mg/dL [facility] Creatinine 12.82(H) 0.60 - 1.10 mg/dL [facility] Glucose 82 70 - 199 mg/dL [facility] [...] Calcium 6.4(C) 8.5 - 10.3 mg/dL [facility] Blood 02/21/2025 8:31 PM CDT 02/21/2025 9:00 PM CDT us Jaimie Giordano MD LAB BLOOD ORDERABLES Final Result Performing Organization Address City/[facility]/ZIP Co de Phone Number [facility] [place] [address] * (ABNORMAL) aPTT (02/21/2025 11:39 AM CDT) [...] ORDERABLES Final Resul t Performing Organization Address [facility] Co de Phone Number [facility] Department of [employer] [place] [address] * (ABNORMAL) Troponin I high-sensitivity (02/21/2025 8:42 AM CDT) Trop I hs 2,752(C) <=17 ng/L Comment: Previous critical value noted within 48 hours ago. Interpretive Data For further hscTnI resources including the diagnostic algorithm and an aid in interpretation, copy and paste this link: https://bjhlab.testcatalog.org/show/[email or web address] Current Interpretive Data last revised 2020. Blood 02/21/2025 8:42 AM CDT 02/21/2025 9:24 AM CDT us Ellie Sarkar MD LAB BLOOD ORDERABLES Fin al Result Performing Organization Address [facility] Co de Phone Number [facility] Department [facility] [employer] [place] [address] * Thyroid Function [place] (02/21/2025 8:42 AM CDT) TSH 1.88 0.30 - 4.20 mcIUnit/mL Blood 02/21/2025 8:42 AM CDT 02/21/2025 9:24 AM CDT Ellie Sarkar MD LAB BLOOD ORDERABLES Fin al Result Performing Organization Address [facility] Co de Phone Number [facility] [place] [address] * (ABNORMAL) Troponin I high-sensitivity 6-hour (02/21/2025 4:51 AM CDT) Trop I hs 3,175(C) <=17 ng/L Comment: Previous critical value noted within 48 hours ago. Interpretive Data For further hscTnI resources including the diagnostic algorithm and an aid in interpretation, copy and paste this link: https://bjhlab.testcatalog.org/show/[email or web address]-1 Current Interpretive Data last revised 2020. Trop I hs pct delta -25(C) % [facility] Comment:Previous critical va lue noted within 48 hours ago. Trop I hs interp Significa nt(C) [facility] Comment:Previous critical va lue noted within 48 hours ago. Blood 02/21/2025 4:51 AM CDT 02/21/2025 5:32 AM CDT Jaimie Giordano MD LAB BLOOD ORDERABLES Final Result Performing Organization Address [facility] de Phone Number [facility] [place] [address] * (ABNORMAL) aPTT (02/21/2025 4:51 AM CDT) [...] ORDERABLES Final Resul t Performing Organization Address [facility] Co de Phone Number [facility] [place] [address] * (ABNORMAL) Troponin I high-sensitivity 4-hour (02/21/2025 2:18 AM CDT) Trop I hs 2,937(C) <=17 ng/L Comment: Previous critical value noted within 48 hours ago. Interpretive Data For further hscTnI resources including the diagnostic algorithm and an aid in interpretation, copy and paste this link: https://bjhlab.testcatalog.org/show/[email or web address] Current Interpretive Data last revised 2020. Trop I hs pct delta -31(C) % [facility] Comment:Previous critical va lue noted within 48 hours ago. Trop I hs interp Significa nt(C) [facility] Comment:Previous critical va lue noted within 48 hours ago. Blood 02/21/2025 2:18 AM CDT 02/21/2025 2:49 AM CDT Jaimie Giordano MD LAB BLOOD ORDERABLES Final Result Performing Organization Address [facility] de Phone Number [facility] [place] [address] * Hepatitis C antibody Blood (01/28/2025 9:42 AM CDT) Pathologist [facility] Hep C Ab Nonreactive Nonreactive Comment:Antibodies to HCV no t detected. Does NOT exclude the possibility of recent exposure to HCV. Current interpretive data was last revised on 22 Blood 01/28/2025 9:42 AM CDT 01/28/2025 10:56 AM CDT Tamar Tang MD LAB MICROBIOLOGY - GENERAL ORD ERABLES Final Result Performing Organization Address City/[facility] Co de Phone Number [facility] [place] [address] from Last 3 Months or Most Recently Relevant to Health Maintenance Insurance [facility] CHOICE [facility]US [facility] HMO/PPO Address: [address] [address] [place] [address] MEDICARE [facility] Address: [address] [address] [place] [address] [employer] [facility] CHOICE PLUS [facility] HMO/PPO Address: [place] [address] [facility]/PPO Address: [place] [address] MEDICARE MEDICARE [facility] CHOICE PLUS [facility] HMO/PPO Address: [address] [address] [place] [address] MEDICARE [address] [id number] Advance Directives For more information, please contact: [phone] * Full Code (Latest Code Status on File) Date Activated Date Inactivated Comments 05/11/2025 12:46 PM 05/11/2025 11:39 PM * Full Code Date Activated Date Inactivated Comments 05/04/2025 8:03 PM 05/07/2025 9:54 PM * Full Code Date Activated Date Inactivated Comments 02/20/2025 8:44 PM 02/24/2025 7:54 PM * Full Code Date Activated Date Inactivated Comments 02/20/2025 6:17 PM 02/20/2025 8:07 PM * Full Code Date Activated Date Inactivated Comments 12/25/2024 10:59 AM 12/28/2024 9:10 AM Care Teams Adult Education Teacher Relationship Specialty Start Date End Date Pal Downey DO PCP - General Internal Medicine 01/25/21 Quinton Rowan MD Referring Physician Cardiology 01/09/19 Tami Flores, TONO [address] [address] Registered Nurse Ell Teacher 01/25/21 Cricket Escalante MD [address] [facility] [address] [place] [address] Referring Physician Nephrology 03/24/21 Gael Sprague MD PhD [address] [address] Fellow Endocrinology Diabetes & Metabolism 03/24/21 Brad Turner MD [address] [address] Consulting Physician Obstetrics and Gynecology 03/24/21 Margarita Montoya MD [address] [id number] Consulting Physician Trauma Surgery 12/27/21 Luca Lott MD [address] [address] Consulting Physician Cardiology 08/03/22 Pb Galloway MD [address] [address] Cardiothoracic Surgery 05/25/24 Felipe Gerber MD [address] [address] Consulting Physician Cardiology 05/25/24
--- OUTSIDE RECORDS SUMMARY | 2025-05-24 18:42 | XMS_ITS | Clinical Summary ---
Author Organization [facility] Address [address] [place] [address] Care Team Providers Care Mechatronics Technician Name Role Phone Quinton Rowan MD Unavailable Pal Downey DO Primary Care Provider [phone] Tami Flores RN Unavailable Cricket Escalante MD Unavailable Gael Sprague MD PhD Unavailable Brad Turner MD Unavailable Margarita Montoya MD Unavailable Luca Lott MD Unavailable Pb Galloway MD Unavailable [phone] Felipe Gerber MD Unavailable [phone] Allergies Active Allergy Reactions Criticality Noted [...] no reactions Penicillins Anaphylaxis,Rash,Un known High 04/29/2015 Jomzsus-Usg-Cog Reductase Inhibitors Muscle pain Medium 02/20/2025 Trialed [...] 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 [facility] admit 04/22-04/24 for afib with work up TSH wnl, hyperkalemic, troponins flat. Reports palpitations stopped last week. 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 [facility] admit 04/22-04/24 for afib with work up TSH wnl, hyperkalemic, troponins flat. Reports palpitations stopped last week. Planned direct admission for amiodarone loading, however, patient is no longer wanting to complete this (patient has appropriate concerns about skilled nursing side effects of Amio, particularly with her thyroid disease) - Continue home apixaban BID - EP consulted -> recommended device interrogation (completed) and TTE - Telemetry monitoring Assessment & Plan (05/05/2025 5:31 PM CDT): AT/AF burden 0.8% per device transmission. [facility] admit 04/22-04/24 for afib with work up TSH wnl, hyperkalemic, troponins flat. Reports palpitations stopped last week. Planned direct admission for amiodarone loading, however, patient is no longer wanting to complete this - Continue home apixaban BID - EP consulted -> recommended device interrogation (completed) and TTE - Telemetry monitoring Assessment & Plan (05/04/2025 10:43 PM CDT): AT/AF burden 0.8% per device transmission. [facility] admit 04/22-04/24 for afib with work up [...] PM CDT): s/p TAVR 06/2024. Follows with [facility]. Assessment & Plan (02/05/2025 3:15 PM CDT): [...] (02/01/2022): Added automatically from request for surgery [id number] Assessment & Plan (02/05/2025 3:15 PM CDT): Undergoing pre transplant evaluation. We will review with Dr. Lott regarding possible candidacy for transplant list given recent interventions. Continued to DAPT Disorder of peritoneal dialysis catheter 022 Overview (12/22/2021): Added automatically from request for surgery [id number] Chronic kidney disease, stage V 10/31/2021 Overview (08/21/2023): Added automatically from request for surgery [id number] Sick sinus syndrome 11/02/2020 Assessment & Plan [...] Assessment & Plan (02/25/2019 11:43 AM CDT): [facility] with 95% LAD lesion, had [...] w/ significant troponin elevation -Plan for [facility] w/ possible PCI tomorrow pending results -heparin, [...] 4.35 - valve team consulted, 02/09 [facility] with severe 1 vessel disease [...] (02/09/2019): Added automatically from request for surgery [id number] Assessment & Plan (05/17/2019 9:19 AM CDT): [...] (02/10/2019): Added automatically from request for surgery [id number] Assessment & Plan (05/07/2025 3:38 PM CDT): [...] - continue plavix, holding Apixaban for upcoming [facility] - hold metop succinate due to hypotension, [...] 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 Escalante Continue lasix 40 mg [...] kidney disease, baseline Cr 2.4-2.6. F/b OSH assistant cook. Apparently discussions for potential need for renal txp being discussed. - Cr at baseline on adm - avoid nephrotoxins, renally dose meds - continue calcitriol 0.5 mcg/day - Cr 2.75, received pre-cath hydration, stable 2.7 Headache 05/02/2016 Moderate COPD (chronic obstr uctive pulmonary disease) ([facility]) 11/02/2015 Assessment & Plan (05/07/2025 3:38 PM [...] AM CDT): Alexis TAVR 05/21 Followed by [facility], Dr. Lott. CT [...] not a candidate for intervention (declined by [facility], [facility]) Assessment & Plan (05/17/2019 9:28 AM CDT): [...] AV. Referred to valve team by primary industrial relations manager Dr. Rowan. Seen 02/02 by valve [...] PM CDT): Potassium level 3.4 this morning 2/ diuresis -Supplemented with 40 mEq PO this [...] around 2.4 Dr Escalante is her home assistant cook Assessment & Plan (02/23/2019 12:20 PM CDT): Pt above POW by 2 kg. Lasix on hold due to elevation in Creatinine Baseline creat is around 2.4 Dr Escalante is her home assistant cook Agitation requiring sedation protocol 02/14/2019 02/23/2019 Acute [...] she had reactions to (?). Per OSH assistant cook's note in Care Everywhere, pt tried metoprolol [...] Care Team Description 05/19/2025 SHOP/CHAP Subsequent Outreach [facility] OP CASE MANAGEMENT [address] [place] [address] Claire Rosales LCSW 05/13/2025 SHOP/CHAP Subsequent Outreach [facility] OP CASE MANAGEMENT [address] [place] [address] Claire Rosales LCSW 05/12/2025 Telephone [facility] [address] [facility] Advanced Medicine 8th [place] [address] [place] [address] Luca Lott MD 05/12/2025 Telephone [facility] [address] [facility] Medical Office Building [address] [place] [address] Luca Lott MD [facility] 05/12/2025 Telephone [facility] [place] [address] [place] [address] Reagan Vences MD 05/11/2025 12:55 PM CDT - 05/11/2025 2:25 PM CDT Surgery [facility] [place] [address] [place] [address] Luca Lott MD LEFT HEART CATHETERIZATION WITH CORONARY ANGIOGRAPHY AND WITH OR WITHOUT LEFT VENTRICULOGRAM [id number] 05/11/2025 11:13 AM CDT - 05/11/2025 7:34 PM CDT [facility] [place] [address] [place] [address] Luca Lott MD Chronic heart failure with preserved ejection fraction (HCC) [I50.32] (Primary Dx); Coronary artery disease involving kluti kaah coronary artery of kluti kaah heart without angina pectoris Discharge Disposition: Discharge to home or self care 05/10/2025 SHOP/CHAP Initial Outreach [facility] OP CASE MANAGEMENT [address] [place] [address] Claire Rosales LCSW 05/10/2025 SHOP/CHAP Initial Eligibility Review [facility] OP CASE MANAGEMENT [address] [place] [address] Claire Rosales LCSW 05/07/2025 Telephone [facility] Advanced Medicine 8th [place] [address] [place] [address] Luca Lott MD 05/04/2025 7:27 PM CDT - 05/07/2025 5:52 PM CDT Hospital Encounter [facility] [address] [place] [address] Kalen Villegas MD PhD [facility] MD Tirso Mejia, Ashley Farnsworth MD Discharge Disposition: Discharge to home or self care 05/04/2025 Telephone [facility] Bed Planning [address] [place] [address] Wiley Pulliam, associate professor plant pathology Notification 04/29/2025 Orders Only [facility] Building [address] [place] [address] Lane Ramos MD PhD S/P placement of cardiac pacemaker; Sick sinus syndrome (HCC) 04/28/2025 Telephone [facility] Advanced Medicine 8th [place] [address] [place] [address] Lane Ramos MD PhD 04/27/2025 Orders Only [facility] Cardiology [address] [place] [address] Eduin Springer MD 04/26/2025 Telephone [facility] [address] [place] [address] Advanced Medicine 8th [place] [address] [place] [address] Luca Lott MD 04/23/2025 Orders Only [address] Building [address] [place] [address] Lane Ramos MD PhD 04/20/2025 2:00 PM CDT Ancillary Procedure [facility] [address] [place] [address] [address] [place] [address] Palpitations 04/20/2025 10:00 AM CDT - 04/20/2025 11:59 PM CDT Hospital Encounter [address] [address] ESRD (end stage renal disease) (HCC) Discharge Disposition: Discharge to home or self care 04/20/2025 Orders Only [facility] [address] Medical Office Building [address] [place] [address] Luca Lott MD Palpitations (Primary Dx) 04/07/2025 11:30 AM CDT Office Visit [facility] [address] [facility] Medical Office Building [address] [place] [address] Luca Lott MD Nonrheumatic aortic valve stenosis (Primary Dx); Coronary artery disease involving kluti kaah coronary artery of kluti kaah heart without angina pectoris 04/07/2025 Telephone [facility] [address] [facility] [address] Mailstop 14-23-493 [place] [address] Tiarra Mcdermott 04/07/2025 Telephone [facility] [address] [facility] [address] Mailstop 03-99-541 [place] [address] Tami Flores, RN 03/27/2025 Orders Only [facility] [address] [facility] 8th [place] [address] [place] [address] Claire Mcnally, RN 03/25/2025 10:00 AM CDT - 03/25/2025 11:59 PM CDT Hospital Encounter [facility] [address] [place] [address] ESRD (end stage renal disease) ([facility]) Discharge Disposition: Discharge to home or self care 03/02/2025 SHOP/CHAP Initial Outreach [facility] OP CASE MANAGEMENT [address] [place] [address] Claire Rosales LCSW 03/01/2025 10:00 AM CDT - 03/01/2025 11:59 PM CDT Hospital Encounter [address] [address] ESRD (end stage renal disease) (HCC) Discharge Disposition: Discharge to home or self care 02/26/2025 SHOP/CHAP Initial Outreach [facility] OP CASE MANAGEMENT [address] [place] [address] Claire Rosales LCSW 02/25/2025 SHOP/CHAP Initial Outreach [facility] OP CASE MANAGEMENT [address] [place] [address] Claire Rosales LCSW 02/25/2025 SHOP/CHAP Initial Eligibility Review [facility] OP CASE MANAGEMENT [address] [place] [address] Claire Rosales LCSW 02/23/2025 11:33 AM CDT - 02/23/2025 12:53 PM CDT Surgery [facility] [address] [place] [address] Luca Lott MD LEFT HEART CATHETERIZATION WITH CORONARY ANGIOGRAPHY AND WITH OR WITHOUT LEFT VENTRICULOGRAM [id number] 02/20/2025 8:07 PM CDT - 02/24/2025 3:54 PM CDT Hospital Encounter [address] [address] Elvin Giordano, MD Antonina Nails, Ellie Hahn MD Acute coronary syndrome (HCC) (Primary Dx); Chest pain [R07.9]; Coronary artery disease involving kluti kaah coronary artery of kluti kaah heart without angina pectoris [I25.10] Discharge Disposition: Discharge to home or self care from Last 3 Months Immunizations Immunization Administration [...] Procedure: PCI KARINA MAJOR CORONARY C9600 - [id number]; Surgeon: Luca Lott MD; Location: [facility] CARDIAC CONTROL ROOM SUPERVISOR; Service: Cardiovascular; Laterality: N/A; Medical devices from this surgery are in the Medical Devices section. CARDIAC CATHETERIZATION 02/23/2025 N/A Procedure: LEFT HEART CATHETERIZATION WITH CORONARY ANGIOGRAPHY AND WITH OR WITHOUT LEFT VENTRICULOGRAM 51452; Surgeon: Luca Lott MD; Location: [facility] CARDIAC CONTROL ROOM SUPERVISOR; Service: Cardiovascular; Laterality: N/A; Medical devices from this surgery are in the Medical Devices section. CARDIAC CATHETERIZATION 05/11/2025 N/A Procedure: LEFT HEART CATHETERIZATION WITH CORONARY ANGIOGRAPHY AND WITH OR WITHOUT LEFT VENTRICULOGRAM 44590; Surgeon: Luca Lott MD; Location: [facility] CARDIAC CONTROL ROOM SUPERVISOR; Service: Cardiovascular; Laterality: N/A; Medical devices from this surgery are in the Medical Devices section. Medical History Medical History Date Comments Hypertension Essential Thyroid mass s/p resection Coronary artery disease invo lving kluti kaah heart 02/07/2019 Added automatically from req uest for surgery [id number] (LAD, LCA) Volume overload 02/14/2019 Leukocytosis 02/21/2019 [...] left thoracotomy and radiation Obstructive lung disease (generalized) Ganglioneuroblastoma (HCC) Spinal stenosis Polycystic kidney disease ESRD on peritoneal dialysis (HCC) Heart murmur WI (myocardial infarction) (HCC) CHF (congestive heart failure) ([facility]) Nausea [...] = 0.6 oz pur e alcohol) occasional [employer] Utilities Answer Date Recorded In the past 12 months has th e V[employer], gas, oil, or water [employer] threatened to shut off services in your home? Patient declined 05/10/2025 Social Connection and Isolation Panel [NHANES] A nswer Date Recorded In a typical week, how many times do you talk on the phone with family, friends, or neighbors? Patient declined 05/10/2025 How often do you get togethe r with friends or relatives? Patient declined 05/10/2025 How often do you attend samaritan or pentecostal serv ices? Patient declined 05/10/2025 Do you belong to any clubs o r organizations such as samaritan groups, unions, fraternal or athletic groups, or [...] any time in the past 12 m [facility], were you homeless or living in a senior care (including now)? Patient declined 05/10/2025 Personal Safety Answer Date Recorded Have you ever been in or are you currently in a harmful physical or emotional relationship or is someone making you feel afraid or unsafe? 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 Gender Identity Female 01/16/2024 11:18 AM [...] TRANSPLANT KIDNEY ESRD (end stage renal disease) ([facility]) Health Maintenance Due Date Last Done Comments [...] 03/06/2023, 05/04/2021 Medical Devices Implanted Type Area Heat Treat Worker Device Identifier Shelf Expiration Date Model / Serial / Lot Angio-Seal Evolution 6fr Vascular Closure [id number] - [id number] - [id number] Implanted:Qty: 1 on 03/09/2022 by Luca Lott MD at [facility] Collagen Right: Femoral Terumo Medical Pam 09/19/2022 [id number] / [id number] Terumo [employer] Pam Angio-Seal Vip 6fr Closere Device [id number] - [id number] - [id number] Implanted:Qty: 1 on 07/24/2022 by Luca Lott MD at [facility] Collagen [employer] Pam 03/20/2023 [id number] / [id number] / [id number] Terumo [employer] Pam Angio-Seal Vip 6fr Closere Device 742304 - [id number] - [id number] Implanted:Qty: 1 on 05/21/2024 at [facility] Collagen Right: Common Femoral Artery [employer] Pam 01/09/2025 625750 / [id number] / [id number] Terumo [employer] Pam Angio-Seal Vip Bondek-Plus 8fr .038in 70cm Hemostatic Latex Free 386260 - [id number] - [id number] Implanted:Qty: 1 on 05/21/2024 by Felipe Gerber MD at [facility] Collagen Right: Common Femoral Artery [employer] Pam 01/06/2025 735248 / [id number] / [id number] Terumo Medical Pam Angio-Seal Vip 6fr Closere Device [id number] - [id number] - [id number] Implanted:Qty: 1 on 02/23/2025 by Luca Lott MD at [facility] Collagen [employer] Pam 06/15/2025 570369 / [id number] / [id number] Medtronic Cardiac Rhythm Mgmt 5076-52 Capsurefix Novus 6.2fr 2mm 52cm Bipolar Screw In Implantable Latex Free - [id number] - [id number] Implanted:Qty: 1 on 05/15/[address] Ramos MD PhD at [facility] Lead Medtronic Inc 03/11/2021 5076-52 / [id number] / Medtronic Cardiac Rhythm Mgmt 5076-45 Capsurefix Novus 6.2fr 2mm 45cm Bipolar Screw In Implantable - [id number] - [id number] Implanted:Qty: 1 on 05/15/[address] Ramos MD PhD at [facility] Lead Medtronic Inc 03/30/2021 5076-45 / [id number] / [employer] [id number] Linear 7.5fr 6in Insertion Kit Managing Director Atlas Introducer Sheath - [id number] Implanted:Qty: 1 on 02/10/2019 by Luca Lott MD at [facility] Other - see comments [employer] [id number] 1 / / Description:IABP Medtronic Inc [id number] Olympia Curl Cath Beta-Cap Holden 15fr 57cm 2 Cuff Clamp Adapter - S0 - [id number] Implanted:Qty: 1 on 11/21/2021 by Carlos Kamara MD at [facility] Other - see comments N/A: Abdomen Medtronic Inc 11/30/2022 8811-31 3015 / 0 / [id number] Medtronic Cardiac Rhythm Mgmt W1dr01 Tereza Wirelessly Pacemaker Cardiac - [id number] - [id number] Implanted:Qty: 1 on 05/15/2019 [address] Ramos MD PhD at [facility] Pacemaker Medtronic Inc [id number] 09/17/2020 [id number] / [id number] / Jamil Lifesciences Valve Aortic Trnscath Brown 3 Ultra Resilia 20mm [id number] - [id number] - [id number] Implanted:Qty: 1 on 05/21/2024 by Felipe Gerber MD at [facility] Prosthetic Valve N/A: Aortic Valve Jamil Lif[employer]iences 02/27/2027 [id number] [id number] / [id number] / Medtronic Inc Resolute Estill 4mm 2.1-2.7fr 12mm 140cm Rapid Exchange Radiopaque [id number] - [id number] - [id number] Implanted:Qty: 1 on 03/09/2022 by Luca Lott MD at [facility] Stent Left: Coronary Medtronic Inc 12/06/2022 [id number] 012UX / [id number] / [id number] Description:LAD Biotronik Inc Stent Coronary De Rx Cocr Ors Msn 4.0x15mm 278990 - [id number] - [id number] Implanted:Qty: 1 on 07/24/2022 by Luca Lott MD at [facility] Stent Biotronik Inc 09/05/2023 084763 / [id number] / [id number] Medtronic Card Vasc Surgery 4.0 X 15mm Clive Butler Rx Coronary Stent [id number] - [id number] - [id number] Implanted:Qty: 1 on 11/19/2024 by Luca Lott MD at [facility] Stent N/A: Saphenous Vein Graft Medtronic Card Vasc Surgery 05/05/2027 [id number] [id number] / [id number] / [id number] Medtronic Card Vasc Surgery 2.50 X 12mm Clive Butler Rx Coronary Stent [id number] - [id number] - [id number] Implanted:Qty: 1 on 12/25/2024 by Luca Lott MD at [facility] Stent Medtronic Card Vasc Surgery 06/03/2027 [id number] [id number] / [id number] / [id number] [employer] Pam Synergy Xd Monorail 3mm 20mm 144cm Delivery System 1 Access Port [id number] - [id number] - [id number] Implanted:Qty: 1 on 02/23/2025 by Luca Lott MD at [facility] Stent [place] Pam 06/08/2026 [id number] / [id number] / [id number] Painter Vascular System Closure Repair Femoral Artery Suture Mediated Perclose Prostyle 23469-79 - [id number] - [id number] Implanted:Qty: 1 on 05/21/2024 by Felipe Gerber MD at [facility] Vascular Closure Device Left: Common Femoral Artery Painter Vascular 02/17/2026 82174-4 3 / [id number] / [id number] Terumo Medical Pam Angio-Seal Vip 6fr Closere Device 265587 - [id number] - [id number] Implanted:Qty: 1 on 11/19/2024 by Luca Lott MD at [facility] Vascular Closure Device N/A: Saphenous Vein Graft Ter[employer]o Medical Pam 04/29/2025 [id number] / [id number] / [id number] Terumo Medical Pam Angio-Seal Vip 6fr Closere Device 426340 - [id number] - [id number] Implanted:Qty: 1 on 12/25/2024 by Sanket Quiroz MD at [facility] Vascular Closure Device Right: Common Femoral Artery [employer] Medical Pam 06/30/2025 660145 / [id number] / [id number] Description:RFA Ter[employer]o Medical Pam Angio-Seal Vip Bondek-Plus 8fr .038in 70cm Hemostatic Latex Free 165625 - [id number] - [id number] Implanted:Qty: 1 on 12/25/2024 by Sanket Quiroz MD at [facility] Vascular Closure Device Right: Femoral Vein [employer] Pam 07/21/2025 068140 / [id number] / [id number] Description:RFV Ter[employer]o Medical Pam Angio-Seal Vip 6fr Closere Device 291165 - [id number] - [id number] Implanted:Qty: 1 on 05/11/2025 by Rio Jacobs MD at [facility] Vascular Closure Device Right: Common Femoral Artery [employer]o Medical Pam 12/31/2025 253824 / [id number] / [id number] [employer] Pam [id number] Supple Ronna-Guard Carson Processing 4x4cm Patch Cardiovascular - [id number] - [id number] Implanted:Qty: 1 on 02/11/2019 by Christopher Holman MD at [facility] N/A: Chest Sotelo FirstString 06/03/2023 [id number] / [id number] / [id number] Jamil Lifesciences [id number] Certitude Brown 3 Atrion 18fr Transcatheter Introducer Crimper - [id number] - [id number] Implanted:Qty: 1 on 02/11/2019 by Christopher Holman MD at [facility] N/A: Heart Jamil Lifesciences [id number] / [id number] / Medtronic Inc [id number] Olympia Curl Cath Beta-Cap Holden 15fr 57cm 2 Cuff Clamp Adapter - [id number] Implanted:Qty: 1 on 12/27/2021 by Margarita Montoya MD at [facility] N/A: Abdomen Medtronic Inc 10/14/2023 8811-31 [...] 4:14 PM CDT Coronary artery disease involving kluti kaah coronary artery of kluti kaah heart without angina pectoris POCT ACTIVATED CLOTTING [...] - REMOTE Routine 04/23/2025 12:51 AM CDT EXTENDED/FDC HOLTER PATCH (>48 HOURS UP TO 7 [...] 6:30 PM CDT 05/11/2025 6:47 PM CDT us Luca Lott MD LAB BLOOD ORDERABLES Final R esult [facility] Department [place] [address] * Differential, auto (05/11/2025 6:30 PM CDT) Neutrophil abs 4.30 1.50 - 6.50 K/cumm Comment:Collection date/time has been modified to: 18:30:00. Previous collection date/time: 17:32:00. Imm gran abs 0.02 0.00 - 0.10 K/cumm [facility] Comment:Collection date/time has been modified to: 18:30:00. Previous collection date/time: 17:32:00. Lymphocyte abs 0.83 0.80 - 3.30 K/cumm [facility] Comment:Collection date/time has been modified to: 18:30:00. Previous collection date/time: 17:32:00. Monocyte abs 0.28 0.20 - 0.80 K/cumm [facility] Comment:Collection date/time has been modified to: 18:30:00. Previous collection date/time: 17:32:00. Eosinophil abs 0.19 0.00 - 0.50 K/cumm [facility] Comment:Collection date/time has been modified to: 18:30:00. Previous collection date/time: 17:32:00. Basophil abs 0.02 0.00 - 0.10 K/cumm [facility] Comment:Collection date/time has been modified to: 18:30:00. Previous collection date/time: 17:32:00. Neutrophil pct 76.1 % [facility] Comment: Collection date/time has been modified to: 18:30:00. Previous collection date/time: 17:32:00. Interpretive Data Percent cell count reference ranges are not reported, since discordance with absolute values may lead to misinterpretation of CBC data. Current Interpretive Data was last revised on 2018. Imm gran pct 0.4 % [facility] Comment: Collection date/time has been modified to: 18:30:00. Previous collection date/time: 17:32:00. Interpretive Data Percent cell count reference ranges are not reported, since discordance with absolute values may lead to misinterpretation of CBC data. Current Interpretive Data was last revised on 2018. Lymphocyte pct 14.7 % [facility] Comment: Collection date/time has been modified to: 18:30:00. Previous collection date/time: 17:32:00. Interpretive Data Percent cell count reference ranges are not reported, since discordance with absolute values may lead to misinterpretation of CBC data. Current Interpretive Data was last revised on 2018. Monocyte pct 5.0 % [facility] Comment: Collection date/time has been modified to: 18:30:00. Previous collection date/time: 17:32:00. Interpretive Data Percent cell count reference ranges are not reported, since discordance with absolute values may lead to misinterpretation of CBC data. Current Interpretive Data was last revised on 2018. Eosinophil pct 3.4 % [facility] Comment: Collection date/time has been modified to: 18:30:00. Previous collection date/time: 17:32:00. Interpretive Data Percent cell count reference ranges are not reported, since discordance with absolute values may lead to misinterpretation of CBC data. Current Interpretive Data was last revised on 2018. Basophil pct 0.4 % [facility] Comment: Collection date/time has been modified to: 18:30:00. Previous collection date/time: 17:32:00. Interpretive Data Percent cell count reference ranges are not reported, since discordance with absolute values may lead to misinterpretation of CBC data. Current Interpretive Data was last revised on 2018. Blood 05/11/2025 6:30 PM CDT 05/11/2025 6:39 PM CDT Luca Lott MD LAB BLOOD ORDERABLES Edited Result - Final [facility] Department [place] [address] * (ABNORMAL) CBC with auto differential (05/11/2025 6:30 PM CDT) WBC 5.64 3.80 - 9.90 K/cumm Comment:Collection date/time has been modified to: 18:30:00. Previous collection date/time: 17:32:00. Hgb 11.5(L) 11.9 - 15.5 g/dL [facility] Comment:Collection date/time has been modified to: 18:30:00. Previous collection date/time: 17:32:00. Hct 36.8 35.6 - 45.5 % [facility] Comment:Collection date/time has been modified to: 18:30:00. Previous collection date/time: 17:32:00. Plt 158 150 - 400 K/cumm [facility] Comment:Collection date/time has been modified to: 18:30:00. Previous collection date/time: 17:32:00. MPV 10.7 9.1 - 12.3 fL [facility] Comment:Collection date/time has been modified to: 18:30:00. Previous collection date/time: 17:32:00. RBC 3.94 3.90 - 5.20 M/cumm [facility] Comment:Collection date/time has been modified to: 18:30:00. Previous collection date/time: 17:32:00. MCV 93.4 81.3 - 96.4 fL [facility] Comment:Collection date/time has been modified to: 18:30:00. Previous collection date/time: 17:32:00. MCH 29.2 27.1 - 33.3 pg [facility] Comment:Collection date/time has been modified to: 18:30:00. Previous collection date/time: 17:32:00. MCHC 31.3(L) 32.3 - 35.7 g/dL [facility] Comment:Collection date/time has been modified to: 18:30:00. Previous collection date/time: 17:32:00. RDW CV 16.3(H) 11.1 - 14.9 % [facility] Comment:Collection date/time has been modified to: 18:30:00. Previous collection date/time: 17:32:00. RDW SD 55.2(H) 35.7 - 48.1 fL [facility] Comment:Collection date/time has been modified to: 18:30:00. Previous collection date/time: 17:32:00. NRBC abs 0.00 0.00 - 0.01 K/cumm [facility] Comment:Collection date/time has been modified to: 18:30:00. Previous collection date/time: 17:32:00. Blood 05/11/2025 6:30 PM CDT 05/11/2025 6:39 PM CDT Luca Lott MD LAB BLOOD ORDERABLES Edited Result - Final [facility] Department [place] [address] * (ABNORMAL) Basic metabolic panel (05/11/2025 6:30 PM CDT) Sodium 134(L) 135 - 145 mmol/L Potassium, pl 5.4(H) 3.3 - 4.9 mmol/L [facility] Chloride 96(L) 97 - 110 mmol/L [facility] CO2 26 22 - 32 mmol/L [facility] Anion gap 12 2 - 15 mmol/L [facility] BUN 57(H) 6 - 25 mg/dL [facility] Creatinine 13.94(H) 0.60 - 1.10 mg/dL [facility] Glucose 114 70 - 199 mg/dL [facility] Comment: Interpretive Data Fasting [...] 2022. Calcium 8.3(L) 8.5 - 10.3 mg/dL [facility] Blood 05/11/2025 6:30 PM CDT 05/11/2025 6:39 PM CDT us Luca Lott MD LAB BLOOD ORDERABLES Final R esult [facility] Department [place] [address] * LEFT HEART CATHETERIZATION WITH CORONARY ANGIOGRAPHY [...] 54 y.o. female : 1970 MR number: [id number] Date of Service: 05/11/2025 Quilt Sewer: Luca Lott MD Fellow: Rio Jacobs MD [...] obtained. The patient was brought to the screedman/laborer and placed on the table Bilateral groins [...] coronary artery angiogram performed using a 6 Faroese JL 3 guide Percutaneous coronary intervention performed on the Proximal vein graft to the LAD. This was an ACC/AHA Type C. Initial Lesion Length 12mm and final lesion Length 12mm. Initial KAROLINA Flow 3 Final KAROLINA Flow 3. Equipment used: 6 3D [employer] [place] IVUS Catheter, Coin Counter And Wrapper 50 wire, 0.9 mm laser atherectomy catheter [...] got the guide to sit and a Coin Counter And Wrapper 50 wire down into the LAD. Next [...] 284(H) 123 - 168 sec POC Performer [id number] [facility] POC Device Number [id number] [facility] Blood 05/11/2025 4:12 PM CDT 05/11/2025 4:12 PM CDT us Luca Lott MD LAB POCT ORDERABLES - DEVICE Final Result [facility] [place] [address] * (ABNORMAL) POCT Activated clotting time, low range (05/11/2025 3:50 PM CDT) ACT 290(H) 123 - 168 sec POC Performer [id number] [facility] POC Device Number [id number] [facility] Blood 05/11/2025 3:50 PM CDT 05/11/2025 3:50 PM CDT Luca Lott MD LAB POCT ORDERABLES - DEVICE Final Result Performing Organization Address [facility] Co de Phone Number [facility] [place] [address] * (ABNORMAL) Potassium, whole blood (05/11/2025 12:00 PM CDT) Potassium, bld 5.0(H) 3.3 - 4.9 mmol/L Blood 05/11/2025 12:0 0 PM CDT 05/11/2025 12:12 PM CDT Kasi Garcia DEVELOPER [employer] LAB BLOOD ORDERABLES F inal Result Performing Organization Address [facility] de Phone Number [facility] [place] [address] * (ABNORMAL) POC Blood Gas and Chemistries, Arterial - (05/11/2025 11:46 AM CDT) K POC 5.5(H) 3.3 - 4.9 mmol/L Comment: Interpretive Data Not all point of care methods assess for hemolysis. Confirm with instrument and retest K+ if not consistent with clinical signs and symptoms. Current Interpretive Data was last revised on 2024. Blood 05/11/2025 11:4 6 AM CDT 05/11/2025 11:46 AM CDT Luca Lott MD LAB POCT ORDERABLES - DEVICE Final Result Performing Organization Address [facility] Co de Phone Number [facility] [place] [address] * TRANSTHORACIC ECHO (TTE) COMPLETE W DOPPLER/CF W CONTRAST (05/07/2025 10:16 AM CDT) Estimated EF 55-60 % CONS SCIMAGE Anatomical Region Laterality Modality Ultrasound 05/06/2025 3:39 PM CDT Narrative 05/06/2025 6:28 PM CDT [facility] [place] [address] Transthoracic Echocardiographic Report Patient Name: ESTUARDO COPELAND M : 1970 (54y 5m) Gender: F Study Date: 05/06/2025 03:39:15 PM Ht(Inch): 64 Wt(Lb): 132.94 BSA: 1.65 Delivery Crew Member: Brad Tripathi RDCS Location: [id number] Order Provider: ASHLEY CHAHAL Heart Rate: 65 [...] Procedure Note Job Gordon MD - 05/06/2025 [facility] [place] [address] Transthoracic Echocardiographic Report Patient Name: ESTUARDO COPELAND M : 1970 (54y 5m) Gender: F Study Date: 05/06/2025 03:39:15 PM Ht(Inch): 64 Wt(Lb): 132.94 BSA: 1.65 Delivery Crew Member: Brad Tripathi RDCS Location: [place] [address] Order Provider: ASHLEY CHAHAL Heart Rate: 65 [...] cm/m2 [ 1.00 - 2.00 ] MV LFJ069.27 msec [ 20.00 - 100.00 ] Asc Ao Diam 2D 1.63 cm MVA PHT2.11 cm2 Asc Ao Index 0.99 cm/m2 MV Decel Xljv212.23 msec [ 104.00 - 258.00 ] Med [...] Job Mancia MD 05/06/2025 6:27:27 PM CDT us Ashley Chahal MD CV ECHO PROCEDURE S [...] MD LAB BLOOD ORDERAB LES Final Result [facility] Department [place] [address] * (ABNORMAL) Vitamin D 25 hydroxy (05/07/2025 6:17 AM CDT) Vitamin D 25-OH 22(L) 30 - 80 ng/mL Blood 05/07/2025 6:17 AM CDT 05/07/2025 6:55 AM CDT us Ashley Chahal MD LAB BLOOD ORDERAB LES Final Result [facility] Department [place] [address] * (ABNORMAL) CBC without differential (05/07/2025 6:17 AM CDT) Pathologist [facility] WBC 6.90 3.80 - 9.90 K/cumm Hgb 12.4 11.9 - 15.5 g/dL [facility] Hct 39.1 35.6 - 45.5 % [facility] Plt 157 150 - 400 K/cumm [facility] MPV 10.4 9.1 - 12.3 fL [facility] RBC 4.19 3.90 - 5.20 M/cumm [facility] MCV 93.3 81.3 - 96.4 fL [facility] MCH 29.6 27.1 - 33.3 pg [facility] MCHC 31.7(L) 32.3 - 35.7 g/dL [facility] RDW CV 16.6(H) 11.1 - 14.9 % [facility] RDW SD 56.4(H) 35.7 - 48.1 fL [facility] NRBC abs 0.00 0.00 - 0.01 K/cumm [facility] Blood 05/07/2025 6:17 AM CDT 05/07/2025 6:55 AM CDT us Ashley Chahal MD LAB BLOOD ORDERAB LES Final Result [facility] Department [place] [address] * (ABNORMAL) PTH (05/07/2025 6:17 AM CDT) Pathologist [facility] PTH 9(L) 15 - 65 pg/mL Blood 05/07/2025 6:17 AM CDT 05/07/2025 6:55 AM CDT Ashely Chahal MD LAB BLOOD ORDERAB LES Final Result [facility] Department [place] [address] * (ABNORMAL) Renal function panel (05/07/2025 6:17 AM CDT) [facility] Sodium 136 135 - 145 mmol/L Potassium, pl 5.1(H) 3.3 - 4.9 mmol/L [facility] Chloride 96(L) 97 - 110 mmol/L [facility] CO2 27 22 - 32 mmol/L [facility] Anion gap 13 2 - 15 mmol/L [facility] BUN 52(H) 6 - 25 mg/dL [facility] Creatinine 14.17(H) 0.60 - 1.10 mg/dL [facility] Glucose 86 70 - 199 mg/dL [facility] Comment: Interpretive Data Fasting [...] 2022. Calcium 8.8 8.5 - 10.3 mg/dL [facility] Phosphorus, pl 9.9(H) 2.3 - 4.5 mg/dL [facility] Albumin 2.8(L) 3.5 - 5.0 g/dL [facility] Blood 05/07/2025 6:17 AM CDT 05/07/2025 6:55 AM CDT Ashley Chahal MD LAB BLOOD ORDERAB LES Final Result Performing Organization Address City/[facility] Co de Phone Number [facility] [place] [address] * Cortisol (05/06/2025 8:36 AM CDT) Cortisol 11.7 4.8 - 19.5 mcg/dL Comment: Interpretive Data: Morning hours 6-10 a.m. 4.8 - 19.5 mcg/dL Afternoon hours 4-8 p.m. 2.5 - 11.9 mcg/dL This analyte undergoes marked diurnal variation. Current interpretive data was last revised 24. Blood 05/06/2025 8:36 AM CDT 05/06/2025 9:27 AM CDT Ashley Chahal MD LAB BLOOD ORDERAB LES Final Result Performing Organization Address [facility] Co de Phone Number [facility] [place] [address] * (ABNORMAL) eGFR (05/06/2025 3:41 AM CDT) [...] 3:41 AM CDT 05/06/2025 4:14 AM CDT Ashley Chahal MD LAB BLOOD ORDERAB LES Final Result Performing Organization Address [facility] Co de Phone Number [facility] Department [place] [address] * (ABNORMAL) Magnesium (05/06/2025 3:41 AM CDT) Pathologist [facility] Magnesium 2.7(H) 1.4 - 2.5 mg/dL Blood 05/06/2025 3:41 AM CDT 05/06/2025 4:14 AM CDT Ashley Chahal MD LAB BLOOD ORDERAB LES Final Result Performing Organization Address [facility] de Phone Number [facility] [place] [address] * (ABNORMAL) Renal function panel (05/06/2025 3:41 AM CDT) [facility] Sodium 136 135 - 145 mmol/L Potassium, pl 4.9 3.3 - 4.9 mmol/L [facility] Chloride 97 97 - 110 mmol/L [facility] CO2 25 22 - 32 mmol/L [facility] Anion gap 14 2 - 15 mmol/L [facility] BUN 56(H) 6 - 25 mg/dL [facility] Creatinine 14.58(H) 0.60 - 1.10 mg/dL [facility] Glucose 107 70 - 199 mg/dL [facility] Comment: Interpretive Data Fasting [...] 2022. Calcium 9.0 8.5 - 10.3 mg/dL [facility] Phosphorus, pl 10.0(H) 2.3 - 4.5 mg/dL [facility] Albumin 2.7(L) 3.5 - 5.0 g/dL [facility] Blood 05/06/2025 3:41 AM CDT 05/06/2025 4:14 AM CDT Ashley Chahal MD LAB BLOOD ORDERAB LES Final Result Performing Organization Address [facility] de Phone Number [facility] Department [place] [address] * (ABNORMAL) Troponin I high-sensitivity 6-hour (05/05/2025 11:37 AM CDT) Trop I hs 172(H) <=17 ng/L Comment: Previous critical value noted within 48 hours ago. Interpretive Data For further hscTnI resources including the diagnostic algorithm and an aid in interpretation, copy and paste this link: https://bjhlab.testcatalog.org/show/[email or web address] Current Interpretive Data last revised 2020. Trop I hs pct delta -11 % [facility] Trop I hs interp Equivocal [facility] Blood 05/05/2025 11:3 7 AM CDT 05/05/2025 12:24 PM CDT us Jacqueline Jules MD LAB BLOOD ORDER [place] Final Result Performing Organization Address [facility] Co de Phone Number [facility] Department [place] [address] * (ABNORMAL) Troponin I high-sensitivity 4-hour (05/05/2025 9:06 AM CDT) Pathologist [facility] Trop I hs 189(H) <=17 ng/L Comment: Interpretive Data For further hscTnI resources including the diagnostic algorithm and an aid in interpretation, copy and paste this link: https://AisleBuyer.Dropifi.org/show/[email or web address] Current Interpretive Data last revised 2020. Trop I hs pct delta -3 % [facility] Trop I hs interp Insignificant [facility] BJ H Blood 05/05/2025 9:06 AM CDT 05/05/2025 9:54 AM CDT Jacqueline Jules MD LAB BLOOD ORDER [place] Final Result Performing Organization Address [facility] Co de Phone Number [facility] [place] [address] * (ABNORMAL) Troponin I high-sensitivity 2-hour (05/05/2025 6:36 AM CDT) [facility] Trop I hs 192(H) <=17 ng/L Comment: Interpretive Data For further hscTnI resources including the diagnostic algorithm and an aid in interpretation, copy and paste this link: https://AisleBuyer.[email or web address]/show/[email or web address] Current Interpretive Data last revised 2020. Trop I hs pct delta -1 % [facility] Trop I hs interp Insignificant [facility] BJ Blood 05/05/2025 6:36 AM CDT 05/05/2025 8:08 AM CDT Jacqueline Jules MD LAB BLOOD ORDER [place] Final Result Performing Organization Address City/[facility]/ZIP Co de Phone Number [facility] [place] [address] * (ABNORMAL) Troponin I high-sensitivity series (baseline, 2hr, 4hr, 6hr) (05/05/2025 4:48 AM CDT) Trop I hs 194(H) <=17 ng/L Comment: Interpretive Data For further hscTnI resources including the diagnostic algorithm and an aid in interpretation, copy and paste this link: https://bjhlab.testcatalog.org/show/[email or web address] Current Interpretive Data last revised 2020. Blood 05/05/2025 4:48 AM CDT 05/05/2025 5:03 AM CDT us Jacqueline Jules MD LAB BLOOD ORDER [place] Final Result Performing Organization Address City/[facility] Co de Phone Number [facility] Department [place] [address] * (ABNORMAL) eGFR (05/05/2025 4:48 AM CDT) [...] ORDER WESTON Final Result Performing Organization Address City/[facility]/ZIP Co de Phone Number [facility] Department [place] [address] * (ABNORMAL) Pro B-type natriuretic peptide (05/05/2025 [...] et.al. Eur Heart J. 2006:27:330-337. 2. Sosa RW, Solange BERRY. J. AM Prakash Cardiol: Cardiovasc Imag. 2009;2: 216- 225. Interpretive Data Last Revised Date: 2018. Blood 05/05/2025 4:48 AM CDT 05/05/2025 5:03 AM CDT Jacqueline Jules MD LAB BLOOD ORDER [place] Final Result [facility] Department [place] [address] * (ABNORMAL) Thyroid Function Randolph (05/05/2025 4:48 AM CDT) Pathologist [facility] TSH 14.50(H) 0.30 - 4.20 mcIUnit/mL Blood 05/05/2025 4:48 AM CDT 05/05/2025 5:03 AM CDT Jacqueline Jules MD LAB BLOOD ORDER [place] Final Result Performing Organization Address [facility] Co de Phone Number [facility] [place] [address] * Protime-INR (05/05/2025 4:48 AM CDT) Pathologist [facility] PT 12.4 9.7 - 13.0 sec INR 1.14 0.90 - 1.20 [facility] Comment: Interpretive data Oral anticoagulant therapeutic ranges: Venous thromboembolism prophylaxis or treatment: 2.0-3.0 CARDIOLOGY Standard range: 2.0-3.0 High-intensity range: 2.5-3.5 Refer to indication-specific guidelines for appropriate target ranges for prosthetic heart valve replacement. Current interpretive data was last revised on 2019. Blood 05/05/2025 4:48 AM CDT 05/05/2025 5:13 AM CDT Narrative [facility] - 05/05/2025 5:19 AM CDT Baseline prior to apixaban initiation. Jacqueline Jules MD LAB BLOOD ORDER [place] Final Result [facility] [place] [address] * (ABNORMAL) CBC without differential (05/05/2025 4:48 AM CDT) Pathologist [facility] WBC 5.83 3.80 - 9.90 K/cumm Hgb 11.8(L) 11.9 - 15.5 g/dL [facility] Hct 37.7 35.6 - 45.5 % [facility] Plt 131(L) 150 - 400 K/cumm [facility] MPV 10.9 9.1 - 12.3 fL [facility] RBC 4.00 3.90 - 5.20 M/cumm [facility] MCV 94.3 81.3 - 96.4 fL [facility] MCH 29.5 27.1 - 33.3 pg [facility] MCHC 31.3(L) 32.3 - 35.7 g/dL [facility] RDW CV 16.8(H) 11.1 - 14.9 % [facility] RDW SD 56.8(H) 35.7 - 48.1 fL [facility] NRBC abs 0.00 0.00 - 0.01 K/cumm [facility] Blood 05/05/2025 4:48 AM CDT 05/05/2025 5:04 AM CDT Jacqueline Jules MD LAB BLOOD ORDER [place] Final Result Performing Organization Address City/[facility] Co de Phone Number [facility] Department [place] [address] * (ABNORMAL) T4, free (05/05/2025 4:48 AM CDT) Free T4 0.70(L) 0.90 - 1.70 ng/dL Blood 05/05/2025 4:48 AM CDT 05/05/2025 5:03 AM CDT Narrative [facility] - 05/05/2025 6:23 AM CDT This test was reflexed from a TSH result. Jacqueline Jules MD LAB BLOOD ORDER [place] Edited Result - Final [facility] Department [place] [address] * (ABNORMAL) Phosphorus (05/05/2025 4:48 AM CDT) Phosphorus, pl 11.7(H) 2.3 - 4.5 mg/dL Blood 05/05/2025 4:48 AM CDT 05/05/2025 5:03 AM CDT Jacqueline Jules MD LAB BLOOD ORDER [place] Final Result Performing Organization Address [facility] de Phone Number [facility] [place] [address] * (ABNORMAL) Magnesium (05/05/2025 4:48 AM CDT) Pathologist [facility] Magnesium 2.9(H) 1.4 - 2.5 mg/dL Blood 05/05/2025 4:48 AM CDT 05/05/2025 5:03 AM CDT Jacqueline Jules MD LAB BLOOD ORDER [place] Final Result Performing Organization Address [facility] de Phone Number [facility] [place] [address] * Bilirubin, direct (05/05/2025 4:48 AM CDT) Bilirubin, direct <0.2 0.1 - 0.3 mg/dL Blood 05/05/2025 4:48 AM CDT 05/05/2025 5:03 AM CDT Jacqueline Jules MD LAB BLOOD ORDER [place] Final Result Performing Organization Address [facility] de Phone Number [facility] [place] [address] * (ABNORMAL) Comprehensive metabolic panel (05/05/2025 4:48 AM CDT) Sodium 140 135 - 145 mmol/L Potassium, pl 5.1(H) 3.3 - 4.9 mmol/L [facility] Chloride 100 97 - 110 mmol/L [facility] CO2 24 22 - 32 mmol/L [facility] Anion gap 16(H) 2 - 15 mmol/L [facility] BUN 60(H) 6 - 25 mg/dL [facility] Creatinine 14.48(H) 0.60 - 1.10 mg/dL [facility] Glucose 91 70 - 199 mg/dL [facility] Comment: Interpretive Data Fasting [...] 2022. Calcium 9.5 8.5 - 10.3 mg/dL [facility] Bilirubin, total 0.2 0.1 - 1.2 mg/dL [facility] Protein, pl 5.6(L) 6.5 - 8.5 g/dL [facility] Albumin 2.8(L) 3.5 - 5.0 g/dL [facility] Alk phos 71 40 - 130 Units/L [facility] ALT 9 7 - 45 Units/L [facility] AST 16 10 - 45 Units/L [facility] Blood 05/05/2025 4:48 AM CDT 05/05/2025 5:03 AM CDT Jacqueline Jules MD LAB BLOOD ORDER [place] Final Result [facility] [place] [address] * XR Chest 1 View (05/04/2025 11:16 [...] ECG 12 lead (05/04/2025 8:59 PM CDT) Ventricular Rate EKG/Min 82 BPM [facility] Atrial Rate 82 BPM [facility] OH-Interval (MSEC) 160 ms [facility] QRS-Interval (MSEC) 84 ms [facility] QT-Interval (MSEC) 368 ms [facility] QTc 429 ms [facility] P Lacey -16 degrees [facility] R Lacey -27 degrees [facility] T Lacey 134 degrees [facility] Diagnosis Atrial-paced rhythm Minimal voltage criteria for LVH, may be normal variant ( Oliverio product ) Septal infarct (cited on or before 20-FEB-2025) T wave abnormality, consider lateral ischemia Abnormal ECG When compared with ECG of 22-FEB-2025 09:14, Electronic atrial pacemaker has replaced Sinus rhythm Confirmed by HARJINDER HANDY M.D ([id number]) on 05/05/2025 2:09:39 PM [facility] 05/04/2025 8:59 PM CDT 05/05/2025 2:09 PM CDT Jacqueline Jules MD ECG ORDERABLES Final Result [facility] * Cardiology Document Scan (04/24/2025 3:35 PM [...] appropriate. No short V-V intervals. Presenting Rhythm (OH) Atrial Sensing-Ventricular Sensing (-VS) --- /VS (SR) [...] andappropriate. No short V-V intervals. Presenting Rhythm (OH) Atrial Sensing-Ventricular Sensing (-VS) --- /VS (SR) [...] CV CARDIAC SERVICES PROCEDURES Final Result * Extended/Long Term Holter Patch (>48 hours up to 7 days) (04/20/2025 1:47 PM CDT) Anatomical Region Laterality Modality Electrocardiogra phy 04/27/2025 12:4 8 PM CDT Narrative 05/10/2025 1:47 PM CDT HOLTER MONITOR Patient Name: ESTUARDO COPELAND M : 1970 (54y 5m) Gender: F Study Date: 04/27/2025 12:48:59 PM Ht(Inch): Wt(Lb): BSA: Tech: Location: [facility] Order Provider: LUCA LOTT BMI: Ref Provider: LUCA LOTT PROCEDURES: Holter Report: EXTENDED/FDC HOLTER PATCH (>48 HOURS UP TO 7 DAYS) [[id number]]. Enrollment Period: 2025-04-27 00:00:00 through 2025-04-29 00:00:00. Location: [facility]. INDICATIONS: R00.2 Palpitations. FINDINGS: Holter Data: [...] events Runs (VT): 6 events Total beats: 15242 SIGNIFICANT PAUSES: 0 >3 sec Protocol: Recording Duration (Ordered): [id number] Recording Duration (Actual): 47910.3 SUMMARY: *The predominant rhythm was Sinus with [...] The PDF can be found in the Epic Patient chart. Please go to the Cardiology [...] 12:48:59 PM Ht(Inch): Wt(Lb): BSA: Tech: Location: [facility] Order Provider: LUCA LOTT BMI: Ref Provider: LUCA LOTT PROCEDURES: Holter Report: EXTENDED/FDC HOLTER PATCH (>48 HOURS UP TO 7 DAYS)[[id number]]. Enrollment Period: 2025-04-27 00:00:00 through 2025-04-29 00:00:00. Location: [facility]. INDICATIONS: R00.2 Palpitations. FINDINGS: Holter Data: [...] events Runs (VT): 6 events Total beats: 52598 SIGNIFICANT PAUSES: 0 >3 sec Protocol: Recording Duration (Ordered): [id number] Recording Duration (Actual): 95148.3 SUMMARY: *The predominant rhythm was Sinus with [...] The PDF can be found in the [facility] Patient chart. Please go to theCardiology tab, [...] 10:0 0 AM CDT Narrative HISTOTRAC - DUST MILL OPERATOR Sample received in lab. Single Antigen [...] a method developed and validated by the [facility] HLA laboratory based on an FDA-approved IVD kit (LABScreen Single-Antigen, [employer], [place], [place]). All patient serum samples are pretreated with EDTA before the screen to prevent complement interference. Additional serum treatments, such as adsorption and DTT treatment, may be performed as indicated. Interpretive comments: Low risk: MFI [id number]. Moderate risk: MFI 5022-0810. Increased risk: MFI >/= 5000. The presence [...] to avoid. Testing performed at the [facility], [facility] [address], [address]th floor, [place], [address]. IA # [id number]. Rosa Millan, Ph.D., Field Map Technician, HLA Laboratory Wilmer Prescott M.D., Ph.D., Personal Security Specialist, [facility] Laboratory Alma Payton, Ph.D., CLIA Personal Security Specialist, [facility] Current methodology and interpretive comments last revised on 11/15/2022. us Salina Hector MD LAB BLOOD ORDERABLES Final Resul t Performing Organization Address [facility] Co de Phone Number HISTOTRAC * HLA Antibody Screen by PRA or SAB per Schedule (Class I and Class II) (03/01/2025 10:00 AM CDT) Blood 03/01/2025 10:0 0 AM CDT Narrative HISTOTRAC - DUST MILL OPERATOR Sample received in lab and stored. No testing performed at this time. us Salina Hector MD LAB BLOOD ORDERABLES Final Resul t Performing Organization Address [facility] de Phone Number HISTOTRAC * (ABNORMAL) eGFR [...] Montez DO LAB BLOOD ORDERABLES Final Result [facility] Department [place] [address] * (ABNORMAL) Differential, auto (02/24/2025 9:50 AM CDT) Neutrophil abs 4.72 1.50 - 6.50 K/cumm Imm gran abs 0.02 0.00 - 0.10 K/cumm [facility] Lymphocyte abs 0.73(L) 0.80 - 3.30 K/cumm [facility] Monocyte abs 0.42 0.20 - 0.80 K/cumm [facility] Eosinophil abs 0.21 0.00 - 0.50 K/cumm [facility] Basophil abs 0.04 0.00 - 0.10 K/cumm [facility] Neutrophil pct 76.9 % [facility] Comment: Interpretive Data Percent cell count reference ranges are not reported, since discordance with absolute values may lead to misinterpretation of CBC data. Current Interpretive Data was last revised on 2018. Imm gran pct 0.3 % [facility] Comment: Interpretive Data Percent cell count reference ranges are not reported, since discordance with absolute values may lead to misinterpretation of CBC data. Current Interpretive Data was last revised on 2018. Lymphocyte pct 11.9 % [facility] Comment: Interpretive Data Percent cell count reference ranges are not reported, since discordance with absolute values may lead to misinterpretation of CBC data. Current Interpretive Data was last revised on 2018. Monocyte pct 6.8 % [facility] Comment: Interpretive Data Percent cell count reference ranges are not reported, since discordance with absolute values may lead to misinterpretation of CBC data. Current Interpretive Data was last revised on 2018. Eosinophil pct 3.4 % [facility] Comment: Interpretive Data Percent cell count reference ranges are not reported, since discordance with absolute values may lead to misinterpretation of CBC data. Current Interpretive Data was last revised on 2018. Basophil pct 0.7 % [facility] Comment: Interpretive Data Percent cell count reference ranges are not reported, since discordance with absolute values may lead to misinterpretation of CBC data. Current Interpretive Data was last revised on 2018. Blood 02/24/2025 9:50 AM CDT 02/24/2025 10:17 AM CDT Dasha Montez DO LAB BLOOD ORDERABLES Final Result [facility] Department [place] [address] * (ABNORMAL) CBC with auto differential (02/24/2025 9:50 AM CDT) WBC 6.14 3.80 - 9.90 K/cumm Hgb 12.5 11.9 - 15.5 g/dL [facility] Hct 39.5 35.6 - 45.5 % [facility] Plt 177 150 - 400 K/cumm [facility] MPV 10.8 9.1 - 12.3 fL [facility] RBC 4.37 3.90 - 5.20 M/cumm [facility] MCV 90.4 81.3 - 96.4 fL [facility] MCH 28.6 27.1 - 33.3 pg [facility] MCHC 31.6(L) 32.3 - 35.7 g/dL [facility] RDW CV 15.9(H) 11.1 - 14.9 % [facility] RDW SD 51.0(H) 35.7 - 48.1 fL [facility] NRBC abs 0.00 0.00 - 0.01 K/cumm [facility] Blood 02/24/2025 9:50 AM CDT 02/24/2025 10:17 AM CDT Dasha Montez LAB BLOOD ORDERABLES Final Result [facility] Department [place] [address] * (ABNORMAL) Basic metabolic panel (02/24/2025 9:50 AM CDT) Pathologist [facility] Sodium 136 135 - 145 mmol/L Potassium, pl 5.0(H) 3.3 - 4.9 mmol/L [facility] Chloride 93(L) 97 - 110 mmol/L [facility] CO2 27 22 - 32 mmol/L [facility] Anion gap 16(H) 2 - 15 mmol/L [facility] BUN 43(H) 6 - 25 mg/dL [facility] Creatinine 11.83(H) 0.60 - 1.10 mg/dL [facility] Glucose 82 70 - 199 mg/dL [facility] Comment: Interpretive Data Fasting [...] 2022. Calcium 7.9(L) 8.5 - 10.3 mg/dL [facility] Blood 02/24/2025 9:50 AM CDT 02/24/2025 10:17 AM CDT Dasha Montez DO LAB BLOOD ORDERABLES Final Result Performing Organization Address City/[facility]/ZIP Co de Phone Number [facility] Department [place] [address] * (ABNORMAL) eGFR (02/23/2025 11:43 PM CDT) [...] BLOOD ORDERABLES Final Result Performing Organization Address City/State/ZIP Co nc Phone Number [facility] Department [place] [address] * VerifyNow clopidogrel (02/23/2025 11:43 PM CDT) [...] PM CDT 02/24/2025 12:16 AM CDT Ellie Sarkar MD LAB BLOOD ORDERABLES Fin al Result Performing Organization Address [facility] Co de Phone Number [facility] Department [place] [address] * (ABNORMAL) Phosphorus (02/23/2025 11:43 PM CDT) Phosphorus, pl 7.6(H) 2.3 - 4.5 mg/dL Blood 02/23/2025 11:4 3 PM CDT 02/24/2025 12:22 AM CDT Jaimie Giordano MD LAB BLOOD ORDERABLES Final Result Performing Organization Address [facility] Co de Phone Number [facility] Department [place] [address] * Magnesium (02/23/2025 11:43 PM CDT) Magnesium 2.4 1.4 - 2.5 mg/dL Blood 02/23/2025 11:4 3 PM CDT 02/24/2025 12:22 AM CDT Jaimie Giordano MD LAB BLOOD ORDERABLES Final Result Performing Organization Address [facility] Co de Phone Number [facility] Department [place] [address] * (ABNORMAL) Basic metabolic panel (02/23/2025 11:43 PM CDT) Sodium 133(L) 135 - 145 mmol/L Potassium, pl 4.9 3.3 - 4.9 mmol/L [facility] Chloride 95(L) 97 - 110 mmol/L [facility] CO2 27 22 - 32 mmol/L [facility] Anion gap 11 2 - 15 mmol/L [facility] BUN 52(H) 6 - 25 mg/dL [facility] Creatinine 11.94(H) 0.60 - 1.10 mg/dL [facility] Glucose 89 70 - 199 mg/dL [facility] Comment: Interpretive Data Fasting [...] 2022. Calcium 8.0(L) 8.5 - 10.3 mg/dL [facility] Blood 02/23/2025 11:4 3 PM CDT 02/24/2025 12:22 AM CDT us Jaimie Giordano MD LAB BLOOD ORDERABLES Final Result [facility] Department [place] [address] * LEFT HEART CATHETERIZATION WITH CORONARY ANGIOGRAPHY [...] 54 y.o. female : 1970 MR number: [id number] Date of Service: 02/23/2025 Quilt Sewer: Luca Lott MD Fellow: Sanket Quiroz MD [...] vein graft to her LAD and her kluti kaah left main. She now presents for urgent cardiac catheterization PROCEDURE: The risks, benefits and alternatives of the procedures and moderate sedation were explained to the patient and informed consent was obtained. The patient was brought to the screedman/laborer and placed on the table Bilateral groins [...] the LAD angiogram performed using a 6 Faroese 3D RC Percutaneous coronary intervention performed on theSVG to the Proximal LAD. This was an ACC/AHA Type C. Initial Lesion Length 12mm and final lesion Length 20mm. Initial KAROLINA Flow 3 Final KAROLINA Flow 3. Equipment used: 6 3DRC, [employer] [place] IVUS Catheter, Coin Counter And Wrapper 50 wire, 0.9 mm laser atherectomy catheter [...] it was extremely difficult. We used a Coin Counter And Wrapper 50 wire with extreme difficulty wire through [...] dissection or perforation. COMPLICATIONS: None DIAGNOSTIC Ellie Sarkar MD CV CARDIAC CATH PROCEDUR ES Final Result * (ABNORMAL) POCT Activated clotting time, low range (02/23/2025 1:41 PM CDT) ACT 319(H) 123 - 168 sec POC Performer [id number] [facility] POC Device Number [id number] [facility] Blood 02/23/2025 1:41 PM CDT 02/23/2025 1:41 PM CDT Ellie Sarkar MD LAB POCT ORDERABLES - DE VICE Final Result [facility] Department [place] [address] * (ABNORMAL) POCT Activated clotting time, low range (02/23/2025 12:35 PM CDT) ACT 351(H) 123 - 168 sec POC Performer [id number] [facility] POC Device Number [id number] [facility] Blood 02/23/2025 12:3 5 PM CDT 02/23/2025 12:35 PM CDT us Ellie Sarkar MD LAB POCT ORDERABLES - DE VICE Final Result Performing Organization Address [facility] Co de Phone Number [facility] [place] [address] * (ABNORMAL) aPTT (02/23/2025 6:36 AM CDT) [...] BLOOD ORDERABLES Final Result Performing Organization Address [facility] Co de Phone Number [facility] [place] [address] * (ABNORMAL) eGFR (02/22/2025 11:07 PM CDT) [...] Inclusion of Race in Diagnosing Kidney Disease, LACEYSN 2020). The CKD-EPI equation should not be used for patients with unstable renal function and has not been validated in children and those over 70. Current interpretive data was last reviewed 2021. Blood 02/22/2025 11:0 7 PM CDT 02/22/2025 11:50 PM CDT Jaimie Giordano MD LAB BLOOD ORDERABLES Final Result Performing Organization Address [facility] de Phone Number [facility] [place] [address] * (ABNORMAL) aPTT (02/22/2025 11:07 PM CDT) [...] ORDERABLES Fin al Result Performing Organization Address [facility] de Phone Number [facility] Department [place] [address] * (ABNORMAL) Phosphorus (02/22/2025 11:07 PM CDT) Phosphorus, pl 7.2(H) 2.3 - 4.5 mg/dL Blood 02/22/2025 11:0 7 PM CDT 02/22/2025 11:50 PM CDT Jaimie Giordano MD LAB BLOOD ORDERABLES Final Result Performing Organization Address [facility] de Phone Number [facility] Department [place] [address] * Magnesium (02/22/2025 11:07 PM CDT) Pathologist [facility] Magnesium 2.5 1.4 - 2.5 mg/dL Blood 02/22/2025 11:0 7 PM CDT 02/22/2025 11:50 PM CDT Jaimie Giordano MD LAB BLOOD ORDERABLES Final Result [facility] Department [place] [address] * (ABNORMAL) Basic metabolic panel (02/22/2025 11:07 PM CDT) [facility] Sodium 134(L) 135 - 145 mmol/L Potassium, pl 4.5 3.3 - 4.9 mmol/L [facility] Chloride 95(L) 97 - 110 mmol/L [facility] CO2 28 22 - 32 mmol/L [facility] Anion gap 11 2 - 15 mmol/L [facility] BUN 56(H) 6 - 25 mg/dL [facility] Creatinine 11.97(H) 0.60 - 1.10 mg/dL [facility] Glucose 104 70 - 199 mg/dL [facility] Comment: Interpretive Data Fasting [...] 2022. Calcium 7.8(L) 8.5 - 10.3 mg/dL [facility] Blood 02/22/2025 11:0 7 PM CDT 02/22/2025 11:50 PM CDT Jaimie Giordano MD LAB BLOOD ORDERABLES Final Result Performing Organization Address [facility] [place] [address] * (ABNORMAL) aPTT (02/22/2025 2:25 PM CDT) Pathologist [facility] aPTT 54(H) 28 - 38 sec Comment: Interpretive Data Heparin therapeutic range: 66.0 - 100.0 seconds. Range based on correlation with therapeutic heparin activity range of 0.3 - 0.7 Units/mL. Current interpretive data was last revised on 2023. Blood 02/22/2025 2:25 PM CDT 02/22/2025 2:59 PM CDT Dasha Montez DO LAB BLOOD ORDERABLES Final Result Performing Organization Address [facility] de Phone Number [facility] [place] [address] * TRANSTHORACIC ECHO (TTE) COMPLETE W DOPPLER/CF W CONTRAST (02/22/2025 1:39 PM CDT) [facility] EF Mod BP 51 % CONS SCIMAGE Anatomical Region Laterality Modality Ultrasound 02/22/2025 12:3 8 PM CDT Narrative 02/22/2025 2:49 PM CDT [facility] [place] [address] Transthoracic Echocardiographic Report Patient Name: ESTUARDO COPELAND M : 1970 (54y 3m) Gender: F Study Date: 02/22/2025 12:38:48 PM Ht(Inch): 64 Wt(Lb): 123.9 BSA: 1.59 Delivery Crew Member: Marisol Arciniega [facility] Location: [id number] Order Provider: SARKARAGUSTÍN COLUNGATA Heart Rate: 75 BMI: 21.27 BP: 90 / 69 Ref Provider: ANTONINAELLIE PROCEDURES: Echocardiographic Report: Transthoracic complete echo with [...] flow reversal in the hepatic veins. Mild OH. Est. PASP 40-45 mm Hg. 7. Physiologic [...] Procedure Note Rc Koehler MD - 02/22/2025 [facility] Card[place] [address] Transthoracic Echocardiographic Report Patient Name: ESTUARDO COPELAND M : 1970 (54y 3m) Gender: F Study Date: 02/22/2025 12:38:48 PM Ht(Inch): 64 Wt(Lb): 123.9 BSA: 1.59 Delivery Crew Member: Marisol Arciniega RDCS [facility] Location: [id number] OrderProvider: ELLIE SARKAR Heart Rate: 75 BMI: [...] systolic flow reversal in the hepatic veins.Mild OH. Est. PASP 40-45 mm Hg. 7. Physiologic [...] [ 2.70 - 3.70 ] MV Decel Pyje588.43 msec [ 104.00 - 258.00 ] Ao [...] CDT Wall Motion Analysis - Resting Ellie Sarkar MD CV ECHO PROCEDURES Final Result * ECG 12 lead (02/22/2025 9:14 AM CDT) Pathologist [facility] Ventricular Rate EKG/Min 80 BPM [facility] Atrial Rate 80 BPM [facility] OH-Interval (MSEC) 96 ms [facility] QRS-Interval (MSEC) 90 ms [facility] QT-Interval (MSEC) 412 ms [facility] QTc 475 ms [facility] P Lacey 90 degrees [facility] R Lacey -30 degrees [facility] T Lacey 133 degrees [facility] Diagnosis Sinus rhythm with sinus arrhythmia with short OH Left axis deviation Left ventricular hypertrophy ( Romhilt-Pierce ) Cannot rule out Septal infarct (cited on 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-FEB-2025) ST & T wave abnormality, consider lateral ischemia Abnormal ECG When compared with ECG of 22-FEB-2025 01:51, (unconfirmed) Sinus rhythm has replaced Atrial fibrillation Confirmed by HARJINDER HANDY M.D ([id number]) on 03/05/2025 11:42:44 AM [facility] 02/22/2025 9:14 AM CDT 03/05/2025 11:42 AM CDT us Jaimie Giordano MD ECG ORDERABLES Victoria becerra Result [facility] * (ABNORMAL) Troponin I high-sensitivity 4-hour (02/22/2025 6:24 AM CDT) Pathologist [facility] Trop I hs 1,868(C) <=17 ng/L Comment: Previous critical value noted within 48 hours ago. Interpretive Data For further hscTnI resources including the diagnostic algorithm and an aid in interpretation, copy and paste this link: https://bjhlab.testcatalog.org/show/hsTrop-1 Current Interpretive Data last revised 2020. Trop I hs pct delta -19(C) % [facility] Comment:Previous critical va lue noted within 48 hours ago. Trop I hs interp Significa nt(C) [facility] Comment:Previous critical va lue noted within 48 hours ago. Blood 02/22/2025 6:24 AM CDT 02/22/2025 6:48 AM CDT Milton Rubio MD LAB BLOOD ORDERABLES Final Resul t Performing Organization Address [facility] de Phone Number [facility] Department [place] [address] * (ABNORMAL) Troponin I high-sensitivity 2-hour (02/22/2025 4:51 AM CDT) Trop I hs 2,146(C) <=17 ng/L Comment: Previous critical value noted within 48 hours ago. Interpretive Data For further hscTnI resources including the diagnostic algorithm and an aid in interpretation, copy and paste this link: https://bjhlab.testcatalog.org/show/hsTrop-1 Current Interpretive Data last revised 2020. Trop I hs pct delta -7 % [facility] Trop I hs interp Equivocal [facility] Blood 02/22/2025 4:51 AM CDT 02/22/2025 5:26 AM CDT Milton Rubio MD LAB BLOOD ORDERABLES Final Resul t Performing Organization Address [facility] de Phone Number [facility] Department [place] [address] * (ABNORMAL) aPTT (02/22/2025 4:51 AM CDT) [...] ORDERABLES Final Resul t Performing Organization Address [facility] Co de Phone Number [facility] Department [place] [address] * Infection Prevention Anthony auris PCR, surveillance Axilla/Groin (02/22/2025 2:05 AM CDT) Anthony auris DNA Not Detected Not Detected [facility] Comment: Interpretive Data Testing performed by [facility] using the Pablo estelle 6800 Anthony auris assay. This assay detects DNA from Anthony auris using Real-Time PCR. This assay is laboratory developed and is not cleared by the [facility] Food and Drug Administration. The performance characteristics have been verified by the [facility]. Axilla/Groin 02/22/2025 2:05 AM CDT 02/22/2025 3:14 AM CDT Narrative CAMERON [facility] - 02/22/2025 2:38 PM CDT Order placed by [facility] due to ring surveillance. us Instant Order Generic Provider LAB MICROBIOLOGY - GENERAL ORDERABLES Final Result Performing Organization Address [facility] de Phone Number [facility] Department [place] [address] [facility] * (ABNORMAL) Troponin I high-sensitivity series [...] ORDERABLES Final Resul t Performing Organization Address City/[facility] de Phone Number [facility] Department [place] [address] * (ABNORMAL) eGFR (02/22/2025 2:05 AM CDT) [...] ORDERABLES Final Resul t Performing Organization Address [facility] de Phone Number [facility] Department [place] [address] * Magnesium (02/22/2025 2:05 AM CDT) Magnesium 2.5 1.4 - 2.5 mg/dL Blood 02/22/2025 2:05 AM CDT 02/22/2025 2:58 AM CDT us Milton Rubio MD LAB BLOOD ORDERABLES Final Resul t Performing Organization Address [facility] de Phone Number [facility] Department [place] [address] * (ABNORMAL) Comprehensive metabolic panel (02/22/2025 2:05 AM CDT) Sodium 138 135 - 145 mmol/L Potassium, pl 4.3 3.3 - 4.9 mmol/L [facility] Chloride 95(L) 97 - 110 mmol/L [facility] CO2 26 22 - 32 mmol/L [facility] Anion gap 17(H) 2 - 15 mmol/L [facility] BUN 55(H) 6 - 25 mg/dL [facility] Creatinine 12.63(H) 0.60 - 1.10 mg/dL [facility] Glucose 99 70 - 199 mg/dL [facility] Comment: Interpretive Data Fasting [...] 2022. Calcium 8.1(L) 8.5 - 10.3 mg/dL [facility] Bilirubin, total 0.2 0.1 - 1.2 mg/dL [facility] Protein, pl 6.0(L) 6.5 - 8.5 g/dL [facility] Albumin 2.6(L) 3.5 - 5.0 g/dL [facility] Alk phos 59 40 - 130 Units/L [facility] ALT 14 7 - 45 Units/L [facility] AST 20 10 - 45 Units/L [facility] Blood 02/22/2025 2:05 AM CDT 02/22/2025 2:58 AM CDT us Milton Rubio MD LAB BLOOD ORDERABLES Final Resul t CAMERON DOMINGUEZ [facility] Department [place] [address] * ECG 12 lead (02/22/2025 1:45 AM CDT) Ventricular Rate EKG/Min 137 BPM [facility] QRS-Interval (MSEC) 94 ms [facility] QT-Interval (MSEC) 316 ms [facility] QTc 477 ms [facility] R Lacey -41 degrees [facility] T Lacey 137 degrees [facility] Diagnosis Age and gender specific ECG analysis Sinus tachycardia Anteroseptal ST-elevation Poor R-wave progression in the precordial leads Left axis deviation Minimal voltage criteria for LVH, may be normal variant ( [place] product ) Anteroseptal infarct , possibly acute T wave abnormality, consider lateral ischemia Abnormal ECG No previous ECGs available Confirmed by HARJINDER HANDY M.D ([id number]) on 02/23/2025 3:10:53 PM [facility] 02/22/2025 1:45 AM CDT 02/23/2025 3:10 PM CDT us Jaimie Giordano MD ECG ORDERABLES Victoria l Result [facility] * (ABNORMAL) eGFR (02/21/2025 8:31 PM CDT) [...] Inclusion of Race in Diagnosing Kidney Disease, SANTO 2020). The CKD-EPI equation should not be used for patients with unstable renal function and has not been validated in children and those over 70. Current interpretive data was last reviewed 2021. Blood 02/21/2025 8:31 PM CDT 02/21/2025 9:23 PM CDT us Jaimie Giordano MD LAB BLOOD ORDERABLES Final Result Performing Organization Address [facility] Co de Phone Number [facility] [place] [address] * Critical Result Callback Chemistry (02/21/2025 8:31 PM CDT) Date Notified [id number] Time Notified 2153 [facility] TestName Calcium CAMERON DOMINGUEZ Called/Read Back Jose DOMINGUEZ Credentials RN CAMERON DOMINGUEZ Called By PD [facility] Blood 02/21/2025 8:31 PM CDT 02/21/2025 9:23 PM CDT us Jaimie Giordano MD LAB BLOOD ORDERABLES Final Result Performing Organization Address [facility] Co de Phone Number [facility] Department [place] [address] * Critical Result Callback Chemistry (02/21/2025 8:31 PM CDT) Date Notified [id number] Time Notified 2128 [facility] TestName Ca Ionized CAMERON DOMINGUEZ Called/Read Back Parminder DOMINGUEZ Credentials RN CAMERON DOMINGUEZ Called By PD [facility]ING[facility] Blood 02/21/2025 8:31 PM CDT 02/21/2025 9:00 PM CDT Ellie Sarkar MD LAB BLOOD ORDERABLES Fin al Result Performing Organization Address City/[facility]/ZIP Co de Phone Number [facility] Department [place] [address] * (ABNORMAL) Calcium, ionized (02/21/2025 8:31 PM CDT) Calcium, Ionized 3.17(C) 4.50 - 5.10 mg/dL Blood 02/21/2025 8:31 PM CDT 02/21/2025 9:00 PM CDT Ellie Sarkar MD LAB BLOOD ORDERABLES Fin al Result Performing Organization Address [facility] de Phone Number [facility] Department [place] [address] * (ABNORMAL) aPTT (02/21/2025 8:31 PM CDT) aPTT 52(H) 28 - 38 sec Comment: Interpretive Data Heparin therapeutic range: 66.0 - 100.0 seconds. Range based on correlation with therapeutic heparin activity range of 0.3 - 0.7 Units/mL. Current interpretive data was last revised on 2023. Blood 02/21/2025 8:31 PM CDT 02/21/2025 9:05 PM CDT Narrative [facility] - 02/21/2025 9:15 PM CDT STAT [...] must be drawn peripherally (not from CVC). us Annabelle Fonseca MD LAB BLOOD ORDERABL ES Final Result Performing Organization Address City/[facility]/ZIP Co de Phone Number [facility] [place] [address] * (ABNORMAL) Phosphorus (02/21/2025 8:31 PM CDT) Pathologist [facility] Phosphorus, pl 8.4(H) 2.3 - 4.5 mg/dL Blood 02/21/2025 8:31 PM CDT 02/21/2025 9:00 PM CDT Jaimie Giordano MD LAB BLOOD ORDERABLES Final Result Performing Organization Address [facility] Co de Phone Number [facility] [place] [address] * Magnesium (02/21/2025 8:31 PM CDT) [facility] Magnesium 2.4 1.4 - 2.5 mg/dL Blood 02/21/2025 8:31 PM CDT 02/21/2025 9:00 PM CDT Jaimie Giordano MD LAB BLOOD ORDERABLES Final Result Performing Organization Address City/[facility] Co de Phone Number [facility] [place] [address] * (ABNORMAL) Basic metabolic panel (02/21/2025 8:31 PM CDT) [facility] Sodium 139 135 - 145 mmol/L Potassium, pl 4.6 3.3 - 4.9 mmol/L [facility] Chloride 94(L) 97 - 110 mmol/L [facility] CO2 27 22 - 32 mmol/L [facility] Anion gap 18(H) 2 - 15 mmol/L [facility] BUN 53(H) 6 - 25 mg/dL [facility] Creatinine 12.82(H) 0.60 - 1.10 mg/dL [facility] Glucose 82 70 - 199 mg/dL [facility] Comment: Interpretive Data Fasting [...] 2022. Calcium 6.4(C) 8.5 - 10.3 mg/dL [facility] Blood 02/21/2025 8:31 PM CDT 02/21/2025 9:00 PM CDT us Jaimie Giordano MD LAB BLOOD ORDERABLES Final Result Performing Organization Address City/[facility] Co de Phone Number [facility] Department [place] [address] * (ABNORMAL) aPTT (02/21/2025 11:39 AM CDT) [...] ORDERABLES Final Resul t Performing Organization Address City/[facility]/ZIP Co de Phone Number [facility] Department [place] [address] * (ABNORMAL) Troponin I high-sensitivity (02/21/2025 8:42 AM CDT) Trop I hs 2,752(C) <=17 ng/L Comment: Previous critical value noted within 48 hours ago. Interpretive Data For further hscTnI resources including the diagnostic algorithm and an aid in interpretation, copy and paste this link: [email or web address]/show/[email or web address] Current Interpretive Data last revised 2020. Blood 02/21/2025 8:42 AM CDT 02/21/2025 9:24 AM CDT Ellie Sarkar MD LAB BLOOD ORDERABLES Fin al Result Performing Organization Address City/[facility]/ZIP Co de Phone Number [facility] Department [place] [address] * Thyroid Function [place] (02/21/2025 8:42 AM CDT) Pathologist [facility] TSH 1.88 0.30 - 4.20 mcIUnit/mL Blood 02/21/2025 8:42 AM CDT 02/21/2025 9:24 AM CDT Result [facility] Ellie Sarkar MD LAB BLOOD ORDERABLES Fin al Result Performing Organization Address City/[facility] Co de Phone Number [facility] Department [place] [address] * (ABNORMAL) Troponin I high-sensitivity 6-hour (02/21/2025 4:51 AM CDT) Trop I hs 3,175(C) <=17 ng/L Comment: Previous critical value noted within 48 hours ago. Interpretive Data For further hscTnI resources including the diagnostic algorithm and an aid in interpretation, copy and paste this link: [email or web address]/show/[email or web address] Current Interpretive Data last revised 2020. Trop I hs pct delta -25(C) % [facility] Comment:Previous critical va lue noted within 48 hours ago. Trop I hs interp Significa nt(C) [facility] Comment:Previous critical va lue noted within 48 hours ago. Blood 02/21/2025 4:51 AM CDT 02/21/2025 5:32 AM CDT Jaimie Giordano MD LAB BLOOD ORDERABLES Final Result Performing Organization Address [facility] de Phone Number [facility] [place] [address] * (ABNORMAL) aPTT (02/21/2025 4:51 AM CDT) [...] ORDERABLES Final Resul t Performing Organization Address [facility] [place] [address] * (ABNORMAL) Troponin I high-sensitivity 4-hour (02/21/2025 2:18 AM CDT) Trop I hs 2,937(C) <=17 ng/L Comment: Previous critical value noted within 48 hours ago. Interpretive Data For further hscTnI resources including the diagnostic algorithm and an aid in interpretation, copy and paste this link: [email or web address].[email or web address]/show/[email or web address] Current Interpretive Data last revised 2020. Trop I hs pct delta -31(C) % [facility] Comment:Previous critical va lue noted within 48 hours ago. Trop I hs interp Significa nt(C) [facility] Comment:Previous critical va lue noted within 48 hours ago. Blood 02/21/2025 2:18 AM CDT 02/21/2025 2:49 AM CDT Jaimie Giordano MD LAB BLOOD ORDERABLES Final Result Performing Organization Address City/[facility]/ZIP Co de Phone Number [facility] Department [place] [address] * Hepatitis C antibody Blood (01/28/2025 9:42 AM CDT) Hep C Ab Nonreactive Nonreactive Comment:Antibodies to HCV no t detected. Does NOT exclude the possibility of recent exposure to HCV. Current interpretive data was last revised on 22 Blood 01/28/2025 9:42 AM CDT 01/28/2025 10:56 AM CDT Tamar Tang MD LAB MICROBIOLOGY - GENERAL ORD ERABLES Final Result Performing Organization Address [facility] Co de Phone Number [facility] [place] [address] from Last 3 Months or Most Recently Relevant to Health Maintenance Insurance [facility]/PP[facility] Address: [facility] [address] [place] [address] MEDICARE [facility] CHO[facility]/PPO Address: [address] [address] [place] [address] [facility]/PPO Address: [address] [address] [place] [address] MEDICARE MEDICARE [facility] CHO[facility] H[facility]/PPO Address: [address] [address] [place] [address] MEDICARE [employer] Advance Directives For more information, please contact: [phone] * Full Code (Latest Code Status on [...] 10:59 AM 12/28/2024 9:10 AM Care Teams Mechatronics Technician Relationship Specialty Start Date End Date Pal Downey DO PCP - General Internal Medicine 01/25/21 Quinton Rowan MD Referring Physician Cardiology 01/09/19 Tami Flores, RN [address] [address] Registered Nurse Interpretative Dancer 01/25/21 Cricket Escalante MD [address] [address] Referring Physician Nephrology 03/24/21 Gael Sprague MD PhD [address] [address] Fellow Endocrinology Diabetes & Metabolism 03/24/21 Brad Turner MD [address] [address] Consulting Physician Obstetrics and Gynecology 03/24/21 Margarita Montoya MD [address] [address] Consulting Physician Trauma Surgery 12/27/21 Luca Lott MD [address] [address] Consulting Physician Cardiology 08/03/22 Pb Galloway MD [address] [address] Cardiothoracic Surgery 05/25/24 Felipe Gerber MD [address] [address] Consulting Physician Cardiology 05/25/24
--- OUTSIDE RECORDS SUMMARY | 2025-05-24 18:42 | XMS_ITS ---
Author Organization [facility] Address [address] [place] [address] Care Team Providers Care Machine Coil Assembler Name Role Phone Quinton Rowan MD Unavailable Pal Downey DO Primary Care Provider [phone] Tami Flores RN Unavailable Cricket Escalante MD Unavailable Gael Sprague MD PhD Unavailable Brad Turner MD Unavailable [phone] Margarita Montoya MD Unavailable Luca Medrano MD Unavailable [phone] Galloway MD Unavailable Felipe Gerber MD Unavailable [phone] Dialysis Plan of Treatment Dialysis Prescription As-Of Date Prescribed Dry Weight Primary Se tting 05/07/2025 Acute Dialysis S CA Instructions Modality Start Time Dwell Time (hours) Dextrose Strength Continuous Cycling Peritonea l Dialysis Dialysis Access Type Location from Last 30 Days Dialysis Access Sites Type Status Location Placement [...] 4:14 PM CDT Coronary artery disease involving [place] coronary artery of [place] heart without angina pectoris POCT ACTIVATED CLOTTING [...] - REMOTE Routine 04/23/2025 12:51 AM CDT EXTENDED/LONG TERM HOLTER PATCH (>48 HOURS UP TO 7 [...] no reactions Penicillins Anaphylaxis,Rash,Un known High 04/29/2015 Vipkuqh-Ufp-Upx Reductase Inhibitors Muscle pain Medium 02/20/2025 Trialed [...] topically daily PD catheter access site 01/10/20 Active loratadine (CLARITIN) 10 mg tablet Take [...] - continue plavix, holding Apixaban for upcoming [facility] - hold metop succinate due to hypotension, previously held OP by cardiology - Repeat TTE owith EF 55-60%, cannot determine diastolic function, no wall motion abnormalities, normal RV, no paravalvular AR with mean gradient 10, severe TR, RSVP 45 - BNP elevated to 47,450 and troponin peak at 192 - EKG without ST segment changes - Dr. Medrano plans on completing [facility] next week and she will discharge home today with outpatient [facility] Assessment & Plan (05/06/2025 12:38 PM [...] & apixaban --> will discuss with Dr. Medrano as last note mentions d/c plavix and transitioning to ASA and apixaban in April - hold metop succinate due to hypotension, previously held OP by cardiology - Repeat TTE ordered - BNP elevated to 47,450 and troponin peak at 192 - EKG without ST segment changes - Dr. Medrano aware of her admit and will see [...] & apixaban --> will discuss with Dr. Medrano as last note mentions d/c plavix and transitioning to ASA and apixaban in April - hold metop succinate due to hypotension, previously held OP by cardiology - Repeat TTE ordered - BNP elevated to 47,450 and troponin peak at 192 - Dr. 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 [facility] admit 04/22-04/24 for afib with work up TSH wnl, hyperkalemic, troponins flat. Reports palpitations stopped last week. Planned direct admission for amiodarone loading, however, patient is no longer wanting to complete this (patient has appropriate concerns about jail side effects of Amio, particularly with her thyroid disease) - Home apixaban BID on hold until after [facility] - EP consulted -> recommended device interrogation, completed with known A.fib - Telemetry monitoring Assessment & Plan (05/06/2025 12:38 PM CDT): AT/AF burden 0.8% per device transmission. [facility] admit 04/22-04/24 for afib with work up TSH wnl, hyperkalemic, troponins flat. Reports palpitations stopped last week. 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 [facility] admit 04/22-04/24 for afib with work up TSH wnl, hyperkalemic, troponins flat. Reports palpitations stopped last week. Planned direct admission for amiodarone loading, however, patient is no longer wanting to complete this - Continue home apixaban BID - EP consulted -> recommended device interrogation (completed) and TTE - Telemetry monitoring Assessment & Plan (05/04/2025 10:43 PM CDT): AT/AF burden 0.8% per device transmission. [facility] admit 04/22-04/24 for afib with work up [...] (02/01/2022): Added automatically from request for surgery [id number] Assessment & Plan (02/05/2025 3:15 PM CDT): Undergoing pre transplant evaluation. We will review with Dr. Medrano regarding possible candidacy for transplant list given recent interventions. Continued to DAPT Disorder of peritoneal dialysis catheter 022 Overview (12/22/2021): Added automatically from request for surgery [id number] Chronic kidney disease, stage V 10/31/2021 Overview (08/21/2023): Added automatically from request for surgery [id number] Sick sinus syndrome 11/02/2020 Assessment & Plan [...] Assessment & Plan (02/25/2019 11:43 AM CDT): [facility] with 95% LAD lesion, had some [...] Assessment & Plan (02/24/2019 9:29 AM CDT): [facility] with 95% LAD lesion, had some [...] Assessment & Plan (02/20/2019 5:17 AM CDT): [facility] with 95% LAD lesion, had some RV dysfunction during AV repair and found to have RCA occlusion following LAD bypass - s/p IABP placement - CABG to LAD and LCA Assessment & Plan (02/19/2019 2:08 AM CDT): [facility] with 95% LAD lesion, had some RV dysfunction during AV repair and found to have RCA occlusion following LAD bypass - s/p IABP placement - CABG to LAD and LCA Assessment & Plan (02/17/2019 7:38 PM CDT): [facility] with 95% LAD lesion, had some RV dysfunction during AV repair and found to have RCA occlusion following LAD bypass - s/p IABP placement - CABG to LAD and LCA - on Epi and Milrinone, wean epi as above Assessment & Plan (02/16/2019 11:38 PM CDT): [facility] with 95% LAD lesion, had some RV dysfunction during AV repair and found to have RCA occlusion following LAD bypass - s/p IABP placement - CABG to LAD and LCA - on Epi and Milrinone of inotropy Assessment & Plan (02/11/2019 6:16 PM CDT): [facility] with 95% LAD lesion, had some RV dysfunction during AV repair and found to have RCA occlusion following LAD bypass - s/p IABP placement - CABG to LAD and LCA - on Epi and Milrinone of inotropy Assessment & Plan (02/08/2019 5:38 PM CDT): -Patient w/ chest pain/SOB along w/ significant troponin elevation -Plan for [facility] w/ possible PCI tomorrow pending results [...] to 4.35 - valve team consulted, 02/09 [facility] with severe 1 vessel disease of [...] (02/09/2019): Added automatically from request for surgery [id number] Assessment & Plan (05/17/2019 9:19 AM CDT): [...] (02/10/2019): Added automatically from request for surgery [id number] Assessment & Plan (05/07/2025 3:38 PM CDT): [...] - continue plavix, holding Apixaban for upcoming [facility] - hold metop succinate due to hypotension, previously held OP by cardiology - Repeat TTE owith EF 55-60%, cannot determine diastolic function, no wall motion abnormalities, normal RV, no paravalvular AR with mean gradient 10, severe TR, RSVP 45 - BNP elevated to 47,450 and troponin peak at 192 - EKG without ST segment changes - Dr. Medrano plans on completing [facility] next week and she will discharge home today with outpatient [facility] Assessment & Plan (05/06/2025 12:38 PM [...] & apixaban --> will discuss with Dr. Medrano as last note mentions d/c plavix and transitioning to ASA and apixaban in April - hold metop succinate due to hypotension, previously held OP by cardiology - Repeat TTE ordered - BNP elevated to 47,450 and troponin peak at 192 - EKG without ST segment changes - Dr. Medrano aware of her admit and will see [...] & apixaban --> will discuss with Dr. Medrano as last note mentions d/c plavix and transitioning to ASA and apixaban in April - hold metop succinate due to hypotension, previously held OP by cardiology - Repeat TTE ordered - BNP elevated to 47,450 and troponin peak at 192 - Dr. 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 Medrano plans on completing [facility] next week and [...] & apixaban --> will discuss with Dr. Medrano as last note mentions d/c plavix and transitioning to ASA and apixaban in April - hold metop succinate due to hypotension, previously held OP by cardiology - Repeat TTE ordered - BNP elevated to 47,450 and troponin peak at 192 - EKG without ST segment changes - Dr. Medrano aware of her admit and will see [...] & apixaban --> will discuss with Dr. Medrano as last note mentions d/c plavix and transitioning to ASA and apixaban in April - hold metop succinate due to hypotension, previously held OP by cardiology - Repeat TTE ordered - BNP elevated to 47,450 and troponin peak at 192 - Dr. 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 Escalante Continue lasix 40 [...] kidney disease, baseline Cr 2.4-2.6. F/b OSH locomotive operator helper. Apparently discussions for potential need for renal txp being discussed. - Cr at baseline on adm - avoid nephrotoxins, renally dose meds - continue calcitriol 0.5 mcg/day - Cr 2.75, received pre-cath hydration, stable 2.7 Headache 05/02/2016 Moderate COPD (chronic obstr uctive pulmonary disease) ([facility]) 11/02/2015 Assessment & Plan (05/07/2025 3:38 PM [...] AM CDT): Alexis TAVR 05/21 Followed by [facility], Dr. Medrano. CT TAVR [...] valve well seated, no AR, LVEF 60-65%. 8/3 TTF Over the weekend- she felt funny [...] Plan (08/02/2022 5:35 PM CDT): -s/p AVR 2019, now with moderate AR and not a candidate for intervention (declined by [facility], [facility]) Assessment & Plan (05/17/2019 [...] AV. Referred to valve team by primary hvac r tech Dr. Rowan. Seen 02/02 by valve team [...] = 0.6 oz pur e alcohol) occasional [facility] Utilities Answer Date Recorded In the past 12 months has e electric, gas, oil, or water company threatened to shut off services in your home? Patient declined 05/10/2025 Social Connection and Isolation Panel [NHANES] A nswer Date Recorded In a typical week, how many times do you talk on the phone with family, friends, or neighbors? Patient declined 05/10/2025 How often do you get togethe r with friends or relatives? Patient declined 05/10/2025 How often do you attend jainism or christian serv ices? Patient declined 05/10/2025 Do you belong to any clubs o r organizations such as jainism groups, unions, fraternal or athletic groups, or [...] any time in the past 12 m [facility], were you homeless or living in a halfway (including now)? Patient declined 05/10/2025 Personal Safety Answer Date Recorded Have you ever been in or are you currently in a harmful physical or emotional relationship or is someone making you feel afraid or unsafe? Denies 05/11/2025 Comments No Sex and Gender Information Value Date Recorded Sex Assigned at Not on file Legal Sex Female 4:06 AM NURSE'S COMPANION Gender Identity Female 01/16/2024 11:18 AM CDT [...] Mass Index 22.59 05/04/2025 7:28 PM CDT Results * (ABNORMAL) eGFR (05/11/2025 6:30 PM [...] CDT 05/11/2025 6:47 PM CDT us Luca Medrano MD LAB BLOOD ORDERABLES Final R esult [facility] [place] [address] * Differential, auto (05/11/2025 6:30 PM CDT) Neutrophil abs 4.30 1.50 - 6.50 K/cumm Comment:Collection date/time has been modified to: 18:30:00. Previous collection date/time: 17:32:00. Imm gran abs 0.02 0.00 - 0.10 K/cumm [facility] Comment:Collection date/time has been modified to: 18:30:00. Previous collection date/time: 17:32:00. Lymphocyte abs 0.83 0.80 - 3.30 K/cumm [facility] Comment:Collection date/time has been modified to: 18:30:00. Previous collection date/time: 17:32:00. Monocyte abs 0.28 0.20 - 0.80 K/cumm [facility] Comment:Collection date/time has been modified to: 18:30:00. Previous collection date/time: 17:32:00. Eosinophil abs 0.19 0.00 - 0.50 K/cumm [facility] Comment:Collection date/time has been modified to: 18:30:00. Previous collection date/time: 17:32:00. Basophil abs 0.02 0.00 - 0.10 K/cumm [facility] Comment:Collection date/time has been modified to: 18:30:00. Previous collection date/time: 17:32:00. Neutrophil pct 76.1 % [facility] Comment: Collection date/time has been modified to: 18:30:00. Previous collection date/time: 17:32:00. Interpretive Data Percent cell count reference ranges are not reported, since discordance with absolute values may lead to misinterpretation of CBC data. Current Interpretive Data was last revised on 2018. Imm gran pct 0.4 % [facility] Comment: Collection date/time has been modified to: 18:30:00. Previous collection date/time: 17:32:00. Interpretive Data Percent cell count reference ranges are not reported, since discordance with absolute values may lead to misinterpretation of CBC data. Current Interpretive Data was last revised on 2018. Lymphocyte pct 14.7 % [facility] Comment: Collection date/time has been modified to: 18:30:00. Previous collection date/time: 17:32:00. Interpretive Data Percent cell count reference ranges are not reported, since discordance with absolute values may lead to misinterpretation of CBC data. Current Interpretive Data was last revised on 2018. Monocyte pct 5.0 % [facility] Comment: Collection date/time has been modified to: 18:30:00. Previous collection date/time: 17:32:00. Interpretive Data Percent cell count reference ranges are not reported, since discordance with absolute values may lead to misinterpretation of CBC data. Current Interpretive Data was last revised on 2018. Eosinophil pct 3.4 % [facility] Comment: Collection date/time has been modified to: 18:30:00. Previous collection date/time: 17:32:00. Interpretive Data Percent cell count reference ranges are not reported, since discordance with absolute values may lead to misinterpretation of CBC data. Current Interpretive Data was last revised on 2018. Basophil pct 0.4 % [facility] Comment: Collection date/time has been modified to: 18:30:00. Previous collection date/time: 17:32:00. Interpretive Data Percent cell count reference ranges are not reported, since discordance with absolute values may lead to misinterpretation of CBC data. Current Interpretive Data was last revised on 2018. Blood 05/11/2025 6:30 PM CDT 05/11/2025 6:39 PM CDT Luca Medrano MD LAB BLOOD ORDERABLES Edited Result - [facility] [place] [address] * (ABNORMAL) CBC with auto differential (05/11/2025 6:30 PM CDT) WBC 5.64 3.80 - 9.90 K/cumm Comment:Collection date/time has been modified to: 18:30:00. Previous collection date/time: 17:32:00. Hgb 11.5(L) 11.9 - 15.5 g/dL [facility] Comment:Collection date/time has been modified to: 18:30:00. Previous collection date/time: 17:32:00. Hct 36.8 35.6 - 45.5 % [facility] Comment:Collection date/time has been modified to: 18:30:00. Previous collection date/time: 17:32:00. Plt 158 150 - 400 K/cumm [facility] Comment:Collection date/time has been modified to: 18:30:00. Previous collection date/time: 17:32:00. MPV 10.7 9.1 - 12.3 fL [facility] Comment:Collection date/time has been modified to: 18:30:00. Previous collection date/time: 17:32:00. RBC 3.94 3.90 - 5.20 M/cumm [facility] Comment:Collection date/time has been modified to: 18:30:00. Previous collection date/time: 17:32:00. MCV 93.4 81.3 - 96.4 fL [facility] Comment:Collection date/time has been modified to: 18:30:00. Previous collection date/time: 17:32:00. MCH 29.2 27.1 - 33.3 pg [facility] Comment:Collection date/time has been modified to: 18:30:00. Previous collection date/time: 17:32:00. MCHC 31.3(L) 32.3 - 35.7 g/dL [facility] Comment:Collection date/time has been modified to: 18:30:00. Previous collection date/time: 17:32:00. RDW CV 16.3(H) 11.1 - 14.9 % [facility] Comment:Collection date/time has been modified to: 18:30:00. Previous collection date/time: 17:32:00. RDW SD 55.2(H) 35.7 - 48.1 fL [facility] Comment:Collection date/time has been modified to: 18:30:00. Previous collection date/time: 17:32:00. NRBC abs 0.00 0.00 - 0.01 K/cumm [facility] Comment:Collection date/time has been modified to: 18:30:00. Previous collection date/time: 17:32:00. Blood 05/11/2025 6:30 PM CDT 05/11/2025 6:39 PM CDT Luca Medrano MD LAB BLOOD ORDERABLES Edited Result - Final [facility] [place] [address] * (ABNORMAL) Basic metabolic panel (05/11/2025 6:30 PM CDT) Sodium 134(L) 135 - 145 mmol/L Potassium, pl 5.4(H) 3.3 - 4.9 mmol/L [facility] Chloride 96(L) 97 - 110 mmol/L [facility] CO2 26 22 - 32 mmol/L [facility] Anion gap 12 2 - 15 mmol/L [facility] BUN 57(H) 6 - 25 mg/dL [facility] Creatinine 13.94(H) 0.60 - 1.10 mg/dL [facility] Glucose 114 70 - 199 mg/dL [facility] Comment: Interpretive Data Fasting glucose >/= [...] 2022. Calcium 8.3(L) 8.5 - 10.3 mg/dL [facility] Blood 05/11/2025 6:30 PM CDT 05/11/2025 6:39 PM CDT us Luca Medrano MD LAB BLOOD ORDERABLES Final R esult Performing Organization Address City/[facility]/ZIP Co de Phone Number [facility] [place] [address] * LEFT HEART CATHETERIZATION WITH CORONARY ANGIOGRAPHY [...] the above report. Luca Medrano MD Narrative 05/11/2025 4:43 PM CDT Table formatting from the original result was not included. Images from the original result were not included. Procedure: CORONARY ANGIOGRAM / PERCUTANEOUS CORONARY INTERVENTION Patient: Estuardo Copeland is a 54 y.o. female : 1970 MR number: [id number] Date of Service: 05/11/2025 Gas Engine Repairer: Luca Medrano MD Fellow: Rio Jacobs MD Fellow: Ramin [...] obtained. The patient was brought to the medical laboratory scientist and placed on the table Bilateral groins [...] coronary artery angiogram performed using a 6 Kinyarwanda JL 3 guide Percutaneous coronary intervention performed on the Proximal vein graft to the LAD. This was an ACC/AHA Type C. Initial Lesion Length 12mm and final lesion Length 12mm. Initial KAROLINA Flow 3 Final KAROLINA Flow 3. Equipment used: 6 3D RC [place] IVUS Catheter, Environmental Economist 50 wire, 0.9 mm laser atherectomy catheter [...] got the guide to sit and a Environmental Economist 50 wire down into the LAD. Next [...] 284(H) 123 - 168 sec POC Performer [id number] [facility] POC Device Number [id number] [facility] Blood 05/11/2025 4:12 PM CDT 05/11/2025 4:12 PM CDT Luca Medrano MD LAB POCT ORDERABLES - DEVICE Final Result Performing Organization Address [facility] de Phone Number [facility] [place] [address] * (ABNORMAL) POCT Activated clotting time, low range (05/11/2025 3:50 PM CDT) ACT 290(H) 123 - 168 sec POC Performer [id number] [facility] POC Device Number [id number] [facility] Blood 05/11/2025 3:50 PM CDT 05/11/2025 3:50 PM CDT Luca Medrano MD LAB POCT ORDERABLES - DEVICE Final Result Performing Organization Address City/[facility] Co de Phone Number [facility] Department [place] [address] * (ABNORMAL) Potassium, whole blood (05/11/2025 12:00 PM CDT) [facility] Potassium, bld 5.0(H) 3.3 - 4.9 mmol/L Blood 05/11/2025 12:0 0 PM CDT 05/11/2025 12:12 PM CDT Kasi Garcia BOAT WORKER LAB BLOOD ORDERABLES F inal Result Performing Organization Address [facility] Co de Phone Number [facility] [place] [address] * (ABNORMAL) POC Blood Gas and Chemistries, Arterial - (05/11/2025 11:46 AM CDT) [facility] K POC 5.5(H) 3.3 - 4.9 mmol/L Comment: Interpretive Data Not all point of care methods assess for hemolysis. Confirm with instrument and retest K+ if not consistent with clinical signs and symptoms. Current Interpretive Data was last revised on 2024. Blood 05/11/2025 11:4 6 AM CDT 05/11/2025 11:46 AM CDT us Luca Medrano MD LAB POCT ORDERABLES - DEVICE Final Result Performing Organization Address [facility] [place] [address] * TRANSTHORACIC ECHO (TTE) COMPLETE W DOPPLER/CF W CONTRAST (05/07/2025 10:16 AM CDT) [facility] Estimated EF 55-60 % CONS SCIMAGE Anatomical Region Laterality Modality Ultrasound 05/06/2025 3:39 PM CDT Narrative 05/06/2025 6:28 PM CDT [facility] [place] [address] Transthoracic Echocardiographic Report Patient Name: ESTUARDO COPELAND M : 1970 (54y 5m) Gender: F Study Date: 05/06/2025 03:39:15 PM Ht(Inch): 64 Wt(Lb): 132.94 BSA: 1.65 Blueprint Assembler: Brad Tripathi [facility] Location: [id number] Order Provider: ASHLEY CHAHAL Heart Rate: 65 [...] Procedure Note Job Gordon MD - 05/06/2025 [facility] [place] [address] Transthoracic Echocardiographic Report Patient Name: ESTUARDO COPELAND M : 1970 (54y 5m) Gender: F Study Date: 05/06/2025 03:39:15 PM Ht(Inch): 64 Wt(Lb): 132.94 BSA: 1.65 Blueprint Assembler: Brad Tripathi RDCS Location: [id number] Order Provider: ASHLEY CHAHAL Heart Rate: 65 [...] cm/m2 [ 1.00 - 2.00 ] MV QBC551.27 msec [ 20.00 - 100.00 ] Asc Ao Diam 2D 1.63 cm MVA PHT2.11 cm2 Asc Ao Index 0.99 cm/m2 MV Decel Pbjg010.23 msec [ 104.00 - 258.00 ] Med [...] MD LAB BLOOD ORDERAB LES Final Result [facility] [place] [address] * (ABNORMAL) Vitamin D 25 hydroxy (05/07/2025 6:17 AM CDT) Pathologist [facility] Vitamin D 25-OH 22(L) 30 - 80 ng/mL Blood 05/07/2025 6:17 AM CDT 05/07/2025 6:55 AM CDT Ashley Chahal MD LAB BLOOD ORDERAB LES Final Result [facility] [place] [address] * (ABNORMAL) CBC without differential (05/07/2025 6:17 AM CDT) [facility] WBC 6.90 3.80 - 9.90 K/cumm Hgb 12.4 11.9 - 15.5 g/dL [facility] Hct 39.1 35.6 - 45.5 % [facility] Plt 157 150 - 400 K/cumm [facility] MPV 10.4 9.1 - 12.3 fL [facility] RBC 4.19 3.90 - 5.20 M/cumm [facility] MCV 93.3 81.3 - 96.4 fL [facility] MCH 29.6 27.1 - 33.3 pg [facility] MCHC 31.7(L) 32.3 - 35.7 g/dL [facility] RDW CV 16.6(H) 11.1 - 14.9 % [facility] RDW SD 56.4(H) 35.7 - 48.1 fL [facility] NRBC abs 0.00 0.00 - 0.01 K/cumm [facility] Blood 05/07/2025 6:17 AM CDT 05/07/2025 6:55 AM CDT us Ashley Chahal MD LAB BLOOD ORDERAB LES Final Result [facility] [place] [address] * (ABNORMAL) PTH (05/07/2025 6:17 AM CDT) Pathologist [facility] PTH 9(L) 15 - 65 pg/mL Blood 05/07/2025 6:17 AM CDT 05/07/2025 6:55 AM CDT us Ashley Chahal MD LAB BLOOD ORDERAB LES Final Result [facility] [place] [address] * (ABNORMAL) Renal function panel (05/07/2025 6:17 AM CDT) Pathologist [facility] Sodium 136 135 - 145 mmol/L Potassium, pl 5.1(H) 3.3 - 4.9 mmol/L [facility] Chloride 96(L) 97 - 110 mmol/L [facility] CO2 27 22 - 32 mmol/L [facility] Anion gap 13 2 - 15 mmol/L [facility] BUN 52(H) 6 - 25 mg/dL [facility] Creatinine 14.17(H) 0.60 - 1.10 mg/dL [facility] Glucose 86 70 - 199 mg/dL [facility] Comment: Interpretive Data Fasting glucose >/= [...] 2022. Calcium 8.8 8.5 - 10.3 mg/dL [facility] Phosphorus, pl 9.9(H) 2.3 - 4.5 mg/dL [facility] Albumin 2.8(L) 3.5 - 5.0 g/dL [facility] Blood 05/07/2025 6:17 AM CDT 05/07/2025 6:55 AM CDT us Ashley Chahal MD LAB BLOOD ORDERAB LES Final Result [facility] Department [place] [address] * Cortisol (05/06/2025 8:36 AM CDT) [facility] Cortisol 11.7 4.8 - 19.5 mcg/dL Comment: Interpretive Data: Morning hours 6-10 a.m. 4.8 - 19.5 mcg/dL Afternoon hours 4-8 p.m. 2.5 - 11.9 mcg/dL This analyte undergoes marked diurnal variation. Current interpretive data was last revised 24. Blood 05/06/2025 8:36 AM CDT 05/06/2025 9:27 AM CDT us Ashley Chahal MD LAB BLOOD ORDERAB LES Final Result Performing Organization Address City/[facility]/ZIP Co de Phone Number [facility] [place] [address] * (ABNORMAL) eGFR (05/06/2025 3:41 AM CDT) [...] ORDERAB LES Final Result Performing Organization Address City/[facility]/ZIP Co de Phone Number [facility] [place] [address] * (ABNORMAL) Magnesium (05/06/2025 3:41 AM CDT) Magnesium 2.7(H) 1.4 - 2.5 mg/dL Blood 05/06/2025 3:41 AM CDT 05/06/2025 4:14 AM CDT us Ashley Chahal MD LAB BLOOD ORDERAB LES Final Result [facility] [place] [address] * (ABNORMAL) Renal function panel (05/06/2025 3:41 AM CDT) Pathologist [facility] Sodium 136 135 - 145 mmol/L Potassium, pl 4.9 3.3 - 4.9 mmol/L [facility] Chloride 97 97 - 110 mmol/L [facility] CO2 25 22 - 32 mmol/L [facility] Anion gap 14 2 - 15 mmol/L [facility] BUN 56(H) 6 - 25 mg/dL [facility] Creatinine 14.58(H) 0.60 - 1.10 mg/dL [facility] Glucose 107 70 - 199 mg/dL [facility] Comment: Interpretive Data Fasting glucose >/= [...] 2022. Calcium 9.0 8.5 - 10.3 mg/dL [facility] Phosphorus, pl 10.0(H) 2.3 - 4.5 mg/dL [facility] Albumin 2.7(L) 3.5 - 5.0 g/dL [facility] Blood 05/06/2025 3:41 AM CDT 05/06/2025 4:14 AM CDT us Ashley Chahal MD LAB BLOOD ORDERAB LES Final Result Performing Organization Address [facility]/ZIP Co de Phone Number [facility] [place] [address] * (ABNORMAL) Troponin I high-sensitivity 6-hour (05/05/2025 11:37 AM CDT) Trop I hs 172(H) <=17 ng/L Comment: Previous critical value noted within 48 hours ago. Interpretive Data For further hscTnI resources including the diagnostic algorithm and an aid in interpretation, copy and paste this link: [email or web address]/show/[email or web address] Current Interpretive Data last revised 2020. Trop I hs pct delta -11 % [facility] Trop I hs interp Equivocal [facility] Blood 05/05/2025 11:3 7 AM CDT 05/05/2025 12:24 PM CDT us Jacqueline Jules MD LAB BLOOD ORDER WEST[place] Final Result Performing Organization Address City/[facility] Co de Phone Number [facility] Department [place] [address] * (ABNORMAL) Troponin I high-sensitivity 4-hour (05/05/2025 9:06 AM CDT) Trop I hs 189(H) <=17 ng/L Comment: Interpretive Data For further hscTnI resources including the diagnostic algorithm and an aid in interpretation, copy and paste this link: [email or web address] [email or web address]/show/[email or web address]-1 Current Interpretive Data last revised 2020. Trop I hs pct delta -3 % [facility] Trop I hs interp Insignificant [facility] Blood 05/05/2025 9:06 AM CDT 05/05/2025 9:54 AM CDT us Jacqueline Jules MD LAB BLOOD ORDER WEST[place] Final Result Performing Organization Address [facility] Co de Phone Number [facility] [place] [address] * (ABNORMAL) Troponin I high-sensitivity 2-hour (05/05/2025 6:36 AM CDT) Trop I hs 192(H) <=17 ng/L Comment: Interpretive Data For further hscTnI resources including the diagnostic algorithm and an aid in interpretation, copy and paste this link: [email or web address].[email or web address]/show/hsTrop-1 Current Interpretive Data last revised 2020. Trop I hs pct delta -1 % [facility] Trop I hs interp Insignificant [facility] Blood 05/05/2025 6:36 AM CDT 05/05/2025 8:08 AM CDT us Jacqueline Jules MD LAB BLOOD ORDER WESTON Final Result Performing Organization Address [facility] de Phone Number [facility] Department [place] [address] * (ABNORMAL) Troponin I high-sensitivity series (baseline, 2hr, 4hr, 6hr) (05/05/2025 4:48 AM CDT) Trop I hs 194(H) <=17 ng/L Comment: Interpretive Data For further hscTnI resources including the diagnostic algorithm and an aid in interpretation, copy and paste this link: [email or web address]/show/[email or web address] Current Interpretive Data last revised 2020. Blood 05/05/2025 4:48 AM CDT 05/05/2025 5:03 AM CDT Jacqueline Jules MD LAB BLOOD ORDER WEST[place] Final Result Performing Organization Address City/[facility]/ZIP Co de Phone Number [facility] Department [place] [address] * (ABNORMAL) eGFR (05/05/2025 4:48 AM CDT) [...] LAB BLOOD ORDER WESTON Final Result [facility] [place] [address] * (ABNORMAL) Pro B-type natriuretic peptide (05/05/2025 [...] LAB BLOOD ORDER WESTON Final Result [facility] [place] [address] * (ABNORMAL) Thyroid Function [place] (05/05/2025 4:48 AM CDT) TSH 14.50(H) 0.30 - 4.20 mcIUnit/mL Blood 05/05/2025 4:48 AM CDT 05/05/2025 5:03 AM CDT Jacqueline Jules MD LAB BLOOD ORDER [place]ST[place] Final Result [facility] [place] [address] * Protime-INR (05/05/2025 4:48 AM CDT) [facility] PT 12.4 9.7 - 13.0 sec INR 1.14 0.90 - 1.20 [facility] Comment: Interpretive data Oral anticoagulant therapeutic ranges: Venous thromboembolism prophylaxis or treatment: 2.0-3.0 CARDIOLOGY Standard range: 2.0-3.0 High-intensity range: 2.5-3.5 Refer to indication-specific guidelines for appropriate target ranges for prosthetic heart valve replacement. Current interpretive data was last revised on 2019. Blood 05/05/2025 4:48 AM CDT 05/05/2025 5:13 AM CDT Narrative [facility] - 05/05/2025 5:19 AM CDT Baseline prior to apixaban initiation. Jacqueline Jules MD LAB BLOOD ORDER WEST[place] Final Result [facility] [place] [address] * (ABNORMAL) CBC without differential (05/05/2025 4:48 AM CDT) [facility] WBC 5.83 3.80 - 9.90 K/cumm Hgb 11.8(L) 11.9 - 15.5 g/dL [facility] Hct 37.7 35.6 - 45.5 % [facility] Plt 131(L) 150 - 400 K/cumm [facility] MPV 10.9 9.1 - 12.3 fL [facility] RBC 4.00 3.90 - 5.20 M/cumm [facility] MCV 94.3 81.3 - 96.4 fL [facility] MCH 29.5 27.1 - 33.3 pg [facility] MCHC 31.3(L) 32.3 - 35.7 g/dL [facility] RDW CV 16.8(H) 11.1 - 14.9 % [facility] RDW SD 56.8(H) 35.7 - 48.1 fL [facility] NRBC abs 0.00 0.00 - 0.01 K/cumm [facility] Blood 05/05/2025 4:48 AM CDT 05/05/2025 5:04 AM CDT Jacqueline Jules MD LAB BLOOD ORDER WEST[place] Final Result Performing Organization Address City/[facility] [place] [address] * (ABNORMAL) T4, free (05/05/2025 4:48 AM CDT) [facility] Free T4 0.70(L) 0.90 - 1.70 ng/dL Blood 05/05/2025 4:48 AM CDT 05/05/2025 5:03 AM CDT Narrative [facility] - 05/05/2025 6:23 AM CDT This test was reflexed from a TSH result. Jacqueline Jules MD LAB BLOOD ORDER [place] Edited Result - Final Performing Organization Address [facility] [place] [address] * (ABNORMAL) Phosphorus (05/05/2025 4:48 AM CDT) Pathologist [facility] Phosphorus, pl 11.7(H) 2.3 - 4.5 mg/dL Blood 05/05/2025 4:48 AM CDT 05/05/2025 5:03 AM CDT Jacqueline Jules MD LAB BLOOD ORDER [place] Final Result Performing Organization Address [facility] Co de Phone Number [facility] Department [place] [address] * (ABNORMAL) Magnesium (05/05/2025 4:48 AM CDT) Magnesium 2.9(H) 1.4 - 2.5 mg/dL Blood 05/05/2025 4:48 AM CDT 05/05/2025 5:03 AM CDT Jacqueilne Jules MD LAB BLOOD ORDER [place] Final Result Performing Organization Address City/[facility]/ZIP Co de Phone Number [facility] Department [place] [address] * Bilirubin, direct (05/05/2025 4:48 AM CDT) Pathologist [facility] Bilirubin, direct <0.2 0.1 - 0.3 mg/dL Blood 05/05/2025 4:48 AM CDT 05/05/2025 5:03 AM CDT Jacqueline Jules MD LAB BLOOD ORDER [place] Final Result Performing Organization Address City/[facility] de Phone Number [facility] [place] [address] * (ABNORMAL) Comprehensive metabolic panel (05/05/2025 4:48 AM CDT) Pathologist [facility] Sodium 140 135 - 145 mmol/L Potassium, pl 5.1(H) 3.3 - 4.9 mmol/L [facility] Chloride 100 97 - 110 mmol/L [facility] CO2 24 22 - 32 mmol/L [facility] Anion gap 16(H) 2 - 15 mmol/L [facility] BUN 60(H) 6 - 25 mg/dL [facility] Creatinine 14.48(H) 0.60 - 1.10 mg/dL [facility] Glucose 91 70 - 199 mg/dL [facility] Comment: Interpretive Data Fasting glucose >/= [...] 2022. Calcium 9.5 8.5 - 10.3 mg/dL [facility] Bilirubin, total 0.2 0.1 - 1.2 mg/dL [facility] Protein, pl 5.6(L) 6.5 - 8.5 g/dL [facility] Albumin 2.8(L) 3.5 - 5.0 g/dL [facility] Alk phos 71 40 - 130 Units/L [facility] ALT 9 7 - 45 Units/L [facility] AST 16 10 - 45 Units/L [facility] Blood 05/05/2025 4:48 AM CDT 05/05/2025 5:03 AM CDT [facility] Lacey Jules MD LAB BLOOD ORDER WESTON Final Result [facility] [place] [address] * XR Chest 1 View (05/04/2025 11:16 [...] it. Electronically signed by: Woodrow Dial M.D. [facility] Lacey Jules MD IMG XR PROCEDUR ES Final Result * ECG 12 lead (05/04/2025 8:59 PM CDT) Pathologist [facility] Ventricular Rate EKG/Min 82 BPM [facility] Atrial Rate 82 BPM [facility] FL-Interval (MSEC) 160 ms [facility] QRS-Interval (MSEC) 84 ms [facility] QT-Interval (MSEC) 368 ms [facility] QTc 429 ms [facility] P Pella -16 degrees [facility] R Pella -27 degrees [facility] T Pella 134 degrees [facility] Diagnosis Atrial-paced rhythm Minimal voltage criteria for LVH, may be normal variant ( Perry product ) Septal infarct (cited on or before 20-FEB-2025) T wave abnormality, consider lateral ischemia Abnormal ECG When compared with ECG of 22-FEB-2025 09:14, Electronic atrial pacemaker has replaced Sinus rhythm Confirmed by HARJINDER HANDY M.D ([id number]) on 05/05/2025 2:09:39 PM [facility] 05/04/2025 8:59 PM CDT 05/05/2025 2:09 PM CDT Jacqueline Jules MD ECG ORDERABLES Final Result [facility] * Cardiology Document Scan (04/24/2025 3:35 PM [...] appropriate. No short V-V intervals. Presenting Rhythm (FL) Atrial Sensing-Ventricular Sensing (-VS) --- /VS (SR) [...] andappropriate. No short V-V intervals. Presenting Rhythm (FL) Atrial Sensing-Ventricular Sensing (-VS) --- /VS (SR) [...] 12:48:59 PM Ht(Inch): Wt(Lb): BSA: Tech: Location: [facility] Order Provider: LUCA MEDRANO BMI: Ref Provider: LUCA MEDRANO PROCEDURES: Holter Report: EXTENDED/LONG TERM HOLTER PATCH (>48 HOURS UP TO 7 DAYS) [[id number]]. Enrollment Period: 2025-04-27 00:00:00 through 2025-04-29 00:00:00. Location: [facility]. INDICATIONS: R00.2 Palpitations. FINDINGS: Holter Data: Min [...] events Runs (VT): 6 events Total beats: 64644 SIGNIFICANT PAUSES: 0 >3 sec Protocol: Recording Duration (Ordered): [id number] Recording Duration (Actual): 48772.3 SUMMARY: *The predominant rhythm was Sinus with [...] The PDF can be found in the [facility] Patient chart. Please go to the [...] 12:48:59 PM Ht(Inch): Wt(Lb): BSA: Tech: Location: [facility] Order Provider: LUCA MEDRANO BMI: Ref Provider: LUCA MEDRANO PROCEDURES: Holter Report: EXTENDED/LONG TERM HOLTER PATCH (>48 HOURS UP TO 7 DAYS)[[id number]]. Enrollment Period: 2025-04-27 00:00:00 through 2025-04-29 00:00:00. Location: [facility]. INDICATIONS: R00.2 Palpitations. FINDINGS: Holter Data: Min [...] events Runs (VT): 6 events Total beats: 43766 SIGNIFICANT PAUSES: 0 >3 sec Protocol: Recording Duration (Ordered): [id number] Recording Duration (Actual): 32728.3 SUMMARY: *The predominant rhythm was Sinus with [...] The PDF can be found in the [facility] Patient chart. Please go to theCardiology [...] Deborah Salcedo M.D. 05/10/2025 12:33:26 PM CDT us Luca Medrano MD CV CARDIAC SERVICES PROCEDUR ES Final Result * HLA Antibody Screen by PRA or SAB per Schedule (Class I and Class II) (04/20/2025 10:00 AM CDT) Blood 04/20/2025 10:0 0 AM CDT Narrative [facility] Sample received in lab. Single Antigen Antibody [...] a method developed and validated by the [facility] HLA laboratory based on an FDA-approved IVD kit (LABScreen Single-Antigen, [employer], [place], [place]). All patient serum samples are pretreated with EDTA before the screen to prevent complement interference. Additional serum treatments, such as adsorption and DTT treatment, may be performed as indicated. Interpretive comments: Low risk: MFI 5220-5941. Moderate risk: MFI 0104-3559. Increased risk: MFI >/= 5000. The presence [...] antigens to avoid. Testing performed at the [facility], [address] [place] [address], 5th floor, [facility], [place], [address]. [place] # [id number]. Rsoa Millan, Ph.D., Pen Maker, HLA Laboratory Wilmer Prescott M.D., Ph.D., Admission Nurse, [facility] Laboratory Alma Payton, Ph.D., CLIA Admission Nurse, [facility] Current methodology and interpretive comments last revised on 11/15/2022. Salina Hector MD LAB BLOOD ORDERABLES Final Resul t [facility] * HLA Antibody Screen by PRA or SAB per Schedule (Class I and Class II) (03/01/2025 10:00 AM CDT) Blood 03/01/2025 10:0 0 AM CDT Narrative [facility] Sample received in lab and stored. No testing performed at this time. Salina Hector MD LAB BLOOD ORDERABLES Final Resul t Performing Organization Address City/[facility]/ZIP Co de Phone Number [facility] * (ABNORMAL) eGFR (02/24/2025 9:50 AM CDT) [...] DO LAB BLOOD ORDERABLES Final Result [facility] [place] [address] * (ABNORMAL) Differential, auto (02/24/2025 9:50 AM CDT) Neutrophil abs 4.72 1.50 - 6.50 K/cumm Imm gran abs 0.02 0.00 - 0.10 K/cumm [facility] Lymphocyte abs 0.73(L) 0.80 - 3.30 K/cumm [facility] Monocyte abs 0.42 0.20 - 0.80 K/cumm [facility] Eosinophil abs 0.21 0.00 - 0.50 K/cumm [facility] Basophil abs 0.04 0.00 - 0.10 K/cumm [facility] Neutrophil pct 76.9 % [facility] Comment: Interpretive Data Percent cell count reference ranges are not reported, since discordance with absolute values may lead to misinterpretation of CBC data. Current Interpretive Data was last revised on 2018. Imm gran pct 0.3 % [facility] Comment: Interpretive Data Percent cell count reference ranges are not reported, since discordance with absolute values may lead to misinterpretation of CBC data. Current Interpretive Data was last revised on 2018. Lymphocyte pct 11.9 % [facility] Comment: Interpretive Data Percent cell count reference ranges are not reported, since discordance with absolute values may lead to misinterpretation of CBC data. Current Interpretive Data was last revised on 2018. Monocyte pct 6.8 % [facility] Comment: Interpretive Data Percent cell count reference ranges are not reported, since discordance with absolute values may lead to misinterpretation of CBC data. Current Interpretive Data was last revised on 2018. Eosinophil pct 3.4 % [facility] Comment: Interpretive Data Percent cell count reference ranges are not reported, since discordance with absolute values may lead to misinterpretation of CBC data. Current Interpretive Data was last revised on 2018. Basophil pct 0.7 % [facility] Comment: Interpretive Data Percent cell count reference ranges are not reported, since discordance with absolute values may lead to misinterpretation of CBC data. Current Interpretive Data was last revised on 2018. Blood 02/24/2025 9:50 AM CDT 02/24/2025 10:17 AM CDT Dasha Montez DO LAB BLOOD ORDERABLES Final Result Performing Organization Address City/[facility]/ZIP Co de Phone Number [facility] Department [place] [address] * (ABNORMAL) CBC with auto differential (02/24/2025 9:50 AM CDT) Pathologist [facility] WBC 6.14 3.80 - 9.90 K/cumm Hgb 12.5 11.9 - 15.5 g/dL [facility] Hct 39.5 35.6 - 45.5 % [facility] Plt 177 150 - 400 K/cumm [facility] MPV 10.8 9.1 - 12.3 fL [facility] RBC 4.37 3.90 - 5.20 M/cumm [facility] MCV 90.4 81.3 - 96.4 fL [facility] MCH 28.6 27.1 - 33.3 pg [facility] MCHC 31.6(L) 32.3 - 35.7 g/dL [facility] RDW CV 15.9(H) 11.1 - 14.9 % [facility] RDW SD 51.0(H) 35.7 - 48.1 fL [facility] NRBC abs 0.00 0.00 - 0.01 K/cumm [facility] Blood 02/24/2025 9:50 AM CDT 02/24/2025 10:17 AM CDT Dasha Montez DO LAB BLOOD ORDERABLES Final Result [facility] Department [place] [address] * (ABNORMAL) Basic metabolic panel (02/24/2025 9:50 AM CDT) Pathologist [facility] Sodium 136 135 - 145 mmol/L Potassium, pl 5.0(H) 3.3 - 4.9 mmol/L [facility] Chloride 93(L) 97 - 110 mmol/L [facility] CO2 27 22 - 32 mmol/L [facility] Anion gap 16(H) 2 - 15 mmol/L [facility] BUN 43(H) 6 - 25 mg/dL [facility] Creatinine 11.83(H) 0.60 - 1.10 mg/dL [facility] Glucose 82 70 - 199 mg/dL [facility] Comment: Interpretive Data Fasting glucose >/= [...] 2022. Calcium 7.9(L) 8.5 - 10.3 mg/dL [facility] Blood 02/24/2025 9:50 AM CDT 02/24/2025 10:17 AM CDT Dasha Montez DO LAB BLOOD ORDERABLES Final Result [facility] [place] [address] * (ABNORMAL) eGFR (02/23/2025 11:43 PM CDT) [...] MD LAB BLOOD ORDERABLES Final Result [facility] [place] [address] * VerifyNow clopidogrel (02/23/2025 11:43 PM CDT) [facility] VerifyNow clopidogrel 208 PRU Comment: Interpretive Data [...] ORDERABLES Fin al Result Performing Organization Address City/[facility]/ZIP Co de Phone Number [facility] [place] [address] * (ABNORMAL) Phosphorus (02/23/2025 11:43 PM CDT) [facility] Phosphorus, pl 7.6(H) 2.3 - 4.5 mg/dL Blood 02/23/2025 11:4 3 PM CDT 02/24/2025 12:22 AM CDT us Jaimie Giordano MD LAB BLOOD ORDERABLES Final Result Performing Organization Address [facility] Co de Phone Number [facility] [place] [address] * Magnesium (02/23/2025 11:43 PM CDT) [facility] Magnesium 2.4 1.4 - 2.5 mg/dL Blood 02/23/2025 11:4 3 PM CDT 02/24/2025 12:22 AM CDT us Jaimie Giordano MD LAB BLOOD ORDERABLES Final Result Performing Organization Address [facility] Co de Phone Number [facility] [place] [address] * (ABNORMAL) Basic metabolic panel (02/23/2025 11:43 PM CDT) [facility] Sodium 133(L) 135 - 145 mmol/L Potassium, pl 4.9 3.3 - 4.9 mmol/L [facility] Chloride 95(L) 97 - 110 mmol/L [facility] CO2 27 22 - 32 mmol/L [facility] Anion gap 11 2 - 15 mmol/L [facility] BUN 52(H) 6 - 25 mg/dL [facility] Creatinine 11.94(H) 0.60 - 1.10 mg/dL [facility] Glucose 89 70 - 199 mg/dL [facility] Comment: Interpretive Data Fasting glucose >/= [...] 2022. Calcium 8.0(L) 8.5 - 10.3 mg/dL [facility] Blood 02/23/2025 11:4 3 PM CDT 02/24/2025 12:22 AM CDT Jaimie Giordano MD LAB BLOOD ORDERABLES Final Result [facility] [place] [address] * LEFT HEART CATHETERIZATION WITH CORONARY ANGIOGRAPHY [...] the above report. Luca Medrano MD Narrative 02/24/2025 6:20 AM CDT Table formatting from the original result was not included. Images from the original result were not included. Procedure: CORONARY ANGIOGRAM / PERCUTANEOUS CORONARY INTERVENTION Patient: Estuardo Copeland is a 54 y.o. female : 1970 MR number: [id number] Date of Service: 02/23/2025 Gas Engine Repairer: Luca Medrano MD Fellow: Sanket Quiroz MD Fellow: Hiral [...] vein graft to her LAD and her [place] left main. She now presents for urgent cardiac catheterization PROCEDURE: The risks, benefits and alternatives of the procedures and moderate sedation were explained to the patient and informed consent was obtained. The patient was brought to the medical laboratory scientist and placed on the table Bilateral groins [...] the LAD angiogram performed using a 6 Kinyarwanda 3D RC Percutaneous coronary intervention performed on theSVG to the Proximal LAD. This was an ACC/AHA Type C. Initial Lesion Length 12mm and final lesion Length 20mm. Initial KAROLINA Flow 3 Final KAROLINA Flow 3. Equipment used: 6 3DRC, [place] IVUS Catheter, Environmental Economist 50 wire, 0.9 mm laser atherectomy catheter [...] it was extremely difficult. We used a Environmental Economist 50 wire with extreme difficulty wire through [...] 319(H) 123 - 168 sec POC Performer [id number] [facility] POC Device Number [id number] [facility] Blood 02/23/2025 1:41 PM CDT 02/23/2025 1:41 PM CDT Ellie Saenz MD LAB POCT ORDERABLES - DE VICE Final Result Performing Organization Address [facility] Co de Phone Number [facility] [place] [address] * (ABNORMAL) POCT Activated clotting time, low range (02/23/2025 12:35 PM CDT) ACT 351(H) 123 - 168 sec POC Performer [id number] [facility] POC Device Number [id number] [facility] Blood 02/23/2025 12:3 5 PM CDT 02/23/2025 12:35 PM CDT Ellie Saenz MD LAB POCT ORDERABLES - DE VICE Final Result Performing Organization Address [facility] Co de Phone Number [facility] [place] [address] * (ABNORMAL) aPTT (02/23/2025 6:36 AM CDT) [facility] aPTT 80(H) 28 - 38 sec Comment: Interpretive Data Heparin therapeutic range: 66.0 - 100.0 seconds. Range based on correlation with therapeutic heparin activity range of 0.3 - 0.7 Units/mL. Current interpretive data was last revised on 2023. Blood 02/23/2025 6:36 AM CDT 02/23/2025 7:00 AM CDT us Heaven Lerner MD LAB BLOOD ORDERABLES Final Result Performing Organization Address City/[facility] Co de Phone Number [facility] [place] [address] * (ABNORMAL) eGFR (02/22/2025 11:07 PM CDT) [...] BLOOD ORDERABLES Final Result Performing Organization Address City/[facility]/ZIP Co de Phone Number [facility] [place] [address] * (ABNORMAL) aPTT (02/22/2025 11:07 PM CDT) [...] ORDERABLES Fin al Result Performing Organization Address [facility] Co de Phone Number [facility] [place] [address] * (ABNORMAL) Phosphorus (02/22/2025 11:07 PM CDT) Phosphorus, pl 7.2(H) 2.3 - 4.5 mg/dL Blood 02/22/2025 11:0 7 PM CDT 02/22/2025 11:50 PM CDT Jaimie Giordano MD LAB BLOOD ORDERABLES Final Result Performing Organization Address City/[facility] Co de Phone Number [facility] [place] [address] * Magnesium (02/22/2025 11:07 PM CDT) Magnesium 2.5 1.4 - 2.5 mg/dL Blood 02/22/2025 11:0 7 PM CDT 02/22/2025 11:50 PM CDT Jaimie Giordano MD LAB BLOOD ORDERABLES Final Result Performing Organization Address City/[facility]/ZIP Co de Phone Number [facility] [place] [address] * (ABNORMAL) Basic metabolic panel (02/22/2025 11:07 PM CDT) Sodium 134(L) 135 - 145 mmol/L Potassium, pl 4.5 3.3 - 4.9 mmol/L [facility] Chloride 95(L) 97 - 110 mmol/L [facility] CO2 28 22 - 32 mmol/L [facility] Anion gap 11 2 - 15 mmol/L [facility] BUN 56(H) 6 - 25 mg/dL [facility] Creatinine 11.97(H) 0.60 - 1.10 mg/dL [facility] Glucose 104 70 - 199 mg/dL [facility] Comment: Interpretive Data Fasting glucose >/= [...] 2022. Calcium 7.8(L) 8.5 - 10.3 mg/dL [facility] Blood 02/22/2025 11:0 7 PM CDT 02/22/2025 11:50 PM CDT Jaimie Giordano MD LAB BLOOD ORDERABLES Final Result [facility] [place] [address] * (ABNORMAL) aPTT (02/22/2025 2:25 PM CDT) [...] LAB BLOOD ORDERABLES Final Result [facility] [place] [address] * TRANSTHORACIC ECHO (TTE) COMPLETE W DOPPLER/CF W CONTRAST (02/22/2025 1:39 PM CDT) EF Mod BP 51 % CONS SCIMAGE Anatomical Region Laterality Modality Ultrasound 02/22/2025 12:3 8 PM CDT Narrative 02/22/2025 2:49 PM CDT [facility] [place] [address] Transthoracic Echocardiographic Report Patient Name: ESTUARDO COPELAND M : 1970 (54y 3m) Gender: F Study Date: 02/22/2025 12:38:48 PM Ht(Inch): 64 Wt(Lb): 123.9 BSA: 1.59 Blueprint Assembler: Marisol Arciniega RDCS [facility] Location: [id number] Order Provider: ELLIE SAENZ Heart Rate: 75 [...] flow reversal in the hepatic veins. Mild FL. Est. PASP 40-45 mm Hg. 7. Physiologic [...] Procedure Note Rc Koehler MD - 02/22/2025 [facility] Card[place] [address] Transthoracic Echocardiographic Report Patient Name: ESTUARDO COPELAND M : 1970 (54y 3m) Gender: F Study Date: 02/22/2025 12:38:48 PM Ht(Inch): 64 Wt(Lb): 123.9 BSA: 1.59 Blueprint Assembler: Marisol Arciniega RD, [facility] Location: [id number] OrderProvider: ELLIE SAENZ Heart Rate: 75 BMI: [...] systolic flow reversal in the hepatic veins.Mild FL. Est. PASP 40-45 mm Hg. 7. Physiologic [...] [ 2.70 - 3.70 ] MV Decel Vvel532.43 msec [ 104.00 - 258.00 ] Ao [...] 12 lead (02/22/2025 9:14 AM CDT) Pathologist [facility] Ventricular Rate EKG/Min 80 BPM [facility] Atrial Rate 80 BPM [facility] FL-Interval (MSEC) 96 ms [facility] QRS-Interval (MSEC) 90 ms [facility] QT-Interval (MSEC) 412 ms [facility] QTc 475 ms [facility] P Pella 90 degrees [facility] R Pella -30 degrees [facility] T Pella 133 degrees [facility] Diagnosis Sinus rhythm with sinus arrhythmia with short FL Left axis deviation Left ventricular hypertrophy ( Romhilt-Pierce ) Cannot rule out Septal infarct (cited on 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-FEB-2025) ST & T wave abnormality, consider lateral ischemia Abnormal ECG When compared with ECG of 22-FEB-2025 01:51, (unconfirmed) Sinus rhythm has replaced Atrial fibrillation Confirmed by HARJINDER HANDY M.D ([id number]) on 03/05/2025 11:42:44 AM [facility] 02/22/2025 9:14 AM CDT 03/05/2025 11:42 AM CDT us Jaimie Giordano MD ECG ORDERABLES Victoria l Result [facility] * (ABNORMAL) Troponin I high-sensitivity 4-hour (02/22/2025 6:24 AM CDT) Trop I hs 1,868(C) <=17 ng/L Comment: Previous critical value noted within 48 hours ago. Interpretive Data For further [facility] resources including the diagnostic algorithm and an aid in interpretation, copy and paste this link: https://bjhlab.testcatalog.org/show/hsTrop-[email or web address] Current Interpretive Data last revised 2020. Trop I hs pct delta -19(C) % [facility] Comment:Previous critical va lue noted within 48 hours ago. Trop I hs interp Significa nt(C) [facility] Comment:Previous critical va lue noted within 48 hours ago. Blood 02/22/2025 6:24 AM CDT 02/22/2025 6:48 AM CDT us Milton Rubio MD LAB BLOOD ORDERABLES Final Resul t [facility] Department [place] [address] * (ABNORMAL) Troponin I high-sensitivity 2-hour (02/22/2025 4:51 AM CDT) Trop I hs 2,146(C) <=17 ng/L Comment: Previous critical value noted within 48 hours ago. Interpretive Data For further hscTnI resources including the diagnostic algorithm and an aid in interpretation, copy and paste this link: https://bjhlab.testcatalog.org/show/hsTrop-1 Current Interpretive Data last revised 2020. Trop I hs pct delta -7 % [facility] Trop I hs interp Equivocal [facility] Blood 02/22/2025 4:51 AM CDT 02/22/2025 5:26 AM CDT us Milton Rubio MD LAB BLOOD ORDERABLES Final Resul t Performing Organization Address [facility] de Phone Number [facility] [place] [address] * (ABNORMAL) aPTT (02/22/2025 4:51 AM CDT) [...] Resul t Performing Organization Address [facility] de Phone Number [facility] [place] [address] * Infection Prevention Anthony auris PCR, surveillance Axilla/Groin (02/22/2025 2:05 AM CDT) Anthony auris DNA Not Detected Not Detected [facility] Comment: Interpretive Data Testing performed by [facility] Infectious Disease [facility] using the Pabol estelle 6800 Anthony auris assay. This assay detects DNA from Anthony auris using Real-Time PCR. This assay is laboratory developed and is not cleared by the [place] Food and Drug Administration. The performance characteristics have been verified by the [facility]ious [facility]. Axilla/Groin 02/22/2025 2:05 AM CDT 02/22/2025 3:14 AM CDT Narrative [facility] - 02/22/2025 2:38 PM CDT Order placed by [facility] due to ring surveillance. us Instant Order Generic Provider LAB MICROBIOLOGY - GENERAL ORDERABLES Final Result Performing Organization Address [facility] de Phone Number [facility] [place] [address] [facility] * (ABNORMAL) Troponin I high-sensitivity series [...] Resul t Performing Organization Address [facility] de Phone Number [facility] Department [place] [address] * (ABNORMAL) eGFR (02/22/2025 2:05 AM CDT) [...] ORDERABLES Final Resul t Performing Organization Address City/[facility]/ZIP Co de Phone Number [facility] [place] [address] * Magnesium (02/22/2025 2:05 AM CDT) Pathologist [facility] Magnesium 2.5 1.4 - 2.5 mg/dL Blood 02/22/2025 2:05 AM CDT 02/22/2025 2:58 AM CDT Milton Rubio MD LAB BLOOD ORDERABLES Final Resul t Performing Organization Address City/[facility]/ZIP Co de Phone Number [facility] [place] [address] * (ABNORMAL) Comprehensive metabolic panel (02/22/2025 2:05 AM CDT) Sodium 138 135 - 145 mmol/L Potassium, pl 4.3 3.3 - 4.9 mmol/L [facility] Chloride 95(L) 97 - 110 mmol/L [facility] CO2 26 22 - 32 mmol/L [facility] Anion gap 17(H) 2 - 15 mmol/L [facility] BUN 55(H) 6 - 25 mg/dL [facility] Creatinine 12.63(H) 0.60 - 1.10 mg/dL [facility] Glucose 99 70 - 199 mg/dL [facility] Comment: Interpretive Data Fasting glucose >/= [...] 2022. Calcium 8.1(L) 8.5 - 10.3 mg/dL [facility] Bilirubin, total 0.2 0.1 - 1.2 mg/dL [facility] Protein, pl 6.0(L) 6.5 - 8.5 g/dL [facility] Albumin 2.6(L) 3.5 - 5.0 g/dL [facility] Alk phos 59 40 - 130 Units/L [facility] ALT 14 7 - 45 Units/L [facility] AST 20 10 - 45 Units/L [facility] Blood 02/22/2025 2:05 AM CDT 02/22/2025 2:58 AM CDT Milton Rubio MD LAB BLOOD ORDERABLES Final Resul t [facility] Organization Address City/State/[facility] Co de Phone Number [facility] [place] [address] * ECG 12 lead (02/22/2025 1:45 AM CDT) Ventricular Rate EKG/Min 137 BPM [facility] QRS-Interval (MSEC) 94 ms [facility] QT-Interval (MSEC) 316 ms [facility] QTc 477 ms [facility] R Pella -41 degrees [facility] T Pella 137 degrees [facility] Diagnosis Age and gender specific ECG analysis Sinus tachycardia Anteroseptal ST-elevation Poor R-wave progression in the precordial leads Left axis deviation Minimal voltage criteria for LVH, may be normal variant ( Oliverio product ) Anteroseptal infarct , possibly acute T wave abnormality, consider lateral ischemia Abnormal ECG No previous ECGs available Confirmed by HARJINDER HANDY M.D ([id number]) on 02/23/2025 3:10:53 PM [facility] 02/22/2025 1:45 AM CDT 02/23/2025 3:10 PM CDT us Jaimie Giordano MD ECG ORDERABLES Victoria l Result [facility] * (ABNORMAL) eGFR (02/21/2025 8:31 PM CDT) [...] BLOOD ORDERABLES Final Result [facility] [place] [address] * Critical Result Callback Chemistry (02/21/2025 8:31 PM CDT) Date Notified [id number] Time Notified 2153 [facility] TestName Calcium NONALARA [facility] Called/Read Back Jose BARNES [facility] Credentials RN [facility] Called By PD [facility] DOMINGUE[facility] Blood 02/21/2025 8:31 PM CDT 02/21/2025 9:23 PM CDT us Jaimie Giordano MD LAB BLOOD ORDERABLES Final Result Performing Organization Address City/[facility]/ZIP Co de Phone Number [facility] Department [place] [address] * Critical Result Callback Chemistry (02/21/2025 8:31 PM CDT) Date Notified [id number] Time Notified 2128 [facility] TestName Ca Ionized [facility] Called/Read Back Parminder BARNES [facility] Credentials RN [facility] Called By PD [facility] Blood 02/21/2025 8:31 PM CDT 02/21/2025 9:00 PM CDT us Ellie Saenz MD LAB BLOOD ORDERABLES Fin al Result [facility] [place] [address] * (ABNORMAL) Calcium, ionized (02/21/2025 8:31 PM CDT) Calcium, Ionized 3.17(C) 4.50 - 5.10 mg/dL Blood 02/21/2025 8:31 PM CDT 02/21/2025 9:00 PM CDT us Ellie Saenz MD LAB BLOOD ORDERABLES Fin al Result Performing Organization Address [facility] Co de Phone Number [facility] [place] [address] * (ABNORMAL) aPTT (02/21/2025 8:31 PM CDT) aPTT 52(H) 28 - 38 sec Comment: Interpretive Data Heparin therapeutic range: 66.0 - 100.0 seconds. Range based on correlation with therapeutic heparin activity range of 0.3 - 0.7 Units/mL. Current interpretive data was last revised on 2023. Blood 02/21/2025 8:31 PM CDT 02/21/2025 9:05 PM CDT Narrative [facility] - 02/21/2025 9:15 PM CDT STAT [...] ORDERABL ES Final Result Performing Organization Address [facility] Co de Phone [facility] [place] [address] * (ABNORMAL) Phosphorus (02/21/2025 8:31 PM CDT) Pathologist [facility] Phosphorus, pl 8.4(H) 2.3 - 4.5 mg/dL Blood 02/21/2025 8:31 PM CDT 02/21/2025 9:00 PM CDT Jaimie Giordano MD LAB BLOOD ORDERABLES Final Result Performing Organization Address City/[facility]/ZIP Co de Phone Number [facility] [place] [address] * Magnesium (02/21/2025 8:31 PM CDT) [facility] Magnesium 2.4 1.4 - 2.5 mg/dL Blood 02/21/2025 8:31 PM CDT 02/21/2025 9:00 PM CDT Jaimie Giordano MD LAB BLOOD ORDERABLES Final Result Performing Organization Address [facility] Co de Phone Number [facility] Department [place] [address] * (ABNORMAL) Basic metabolic panel (02/21/2025 8:31 PM CDT) [facility] Sodium 139 135 - 145 mmol/L Potassium, pl 4.6 3.3 - 4.9 mmol/L [facility] Chloride 94(L) 97 - 110 mmol/L [facility] CO2 27 22 - 32 mmol/L [facility] Anion gap 18(H) 2 - 15 mmol/L [facility] BUN 53(H) 6 - 25 mg/dL [facility] Creatinine 12.82(H) 0.60 - 1.10 mg/dL [facility] Glucose 82 70 - 199 mg/dL [facility] Comment: Interpretive Data Fasting glucose >/= [...] 2022. Calcium 6.4(C) 8.5 - 10.3 mg/dL [facility] Blood 02/21/2025 8:31 PM CDT 02/21/2025 9:00 PM CDT us Jaimie Giordano MD LAB BLOOD ORDERABLES Final Result Performing Organization Address [facility] Co de Phone Number [facility] [place] [address] * (ABNORMAL) aPTT (02/21/2025 11:39 AM CDT) [...] Resul t Performing Organization Address [facility] [place] [address] * (ABNORMAL) Troponin I high-sensitivity (02/21/2025 8:42 [...] ORDERABLES Fin al Result Performing Organization Address [facility] Co de Phone Number [facility] [place] [address] * Thyroid Function [place] (02/21/2025 8:42 AM CDT) Pathologist [facility] TSH 1.88 0.30 - 4.20 mcIUnit/mL Blood 02/21/2025 8:42 AM CDT 02/21/2025 9:24 AM CDT Ellie Saenz MD LAB BLOOD ORDERABLES Fin al Result Performing Organization Address [facility] [place] [address] * (ABNORMAL) Troponin I high-sensitivity 6-hour (02/21/2025 4:51 AM CDT) Pathologist [facility] Trop I hs 3,175(C) <=17 ng/L Comment: Previous critical value noted within 48 hours ago. Interpretive Data For further hscTnI resources including the diagnostic algorithm and an aid in interpretation, copy and paste this link: https://bjhlab.testcatalog.org/show/[email or web address] Current Interpretive Data last revised 2020. Trop I hs pct delta -25(C) % [facility] Comment:Previous critical va lue noted within 48 hours ago. Trop I hs interp Significa nt(C) [facility] Comment:Previous critical va lue noted within 48 hours ago. Blood 02/21/2025 4:51 AM CDT 02/21/2025 5:32 AM CDT us Jaimie Giordano MD LAB BLOOD ORDERABLES Final Result Performing Organization Address [facility] Co de Phone Number [facility] [place] [address] * (ABNORMAL) aPTT (02/21/2025 4:51 AM CDT) [facility] aPTT 82(H) 28 - 38 sec Comment: Interpretive Data Heparin therapeutic range: 66.0 - 100.0 seconds. Range based on correlation with therapeutic heparin activity range of 0.3 - 0.7 Units/mL. Current interpretive data was last revised on 2023. Blood 02/21/2025 4:51 AM CDT 02/21/2025 5:31 AM CDT us Milton Rubio MD LAB BLOOD ORDERABLES Final Resul t Performing Organization Address [facility]/ZIP Co de Phone Number [facility] [place] [address] * (ABNORMAL) Troponin I high-sensitivity 4-hour (02/21/2025 2:18 AM CDT) [facility] Trop I hs 2,937(C) <=17 ng/L Comment: Previous critical value noted within 48 hours ago. Interpretive Data For further hscTnI resources including the diagnostic algorithm and an aid in interpretation, copy and paste this link: https://bjhlab.testcatalog.org/show/hsTrop-1 Current Interpretive Data last revised 2020. Trop I hs pct delta -31(C) % [facility] Comment:Previous critical va lue noted within 48 hours ago. Trop I hs interp Significa nt(C) [facility] Comment:Previous critical va lue noted within 48 hours ago. Blood 02/21/2025 2:18 AM CDT 02/21/2025 2:49 AM CDT us Jaimie Giordano MD LAB BLOOD ORDERABLES Final Result Performing Organization Address City/[facility] Co de Phone Number [facility] [place] [address] * Hepatitis C antibody Blood (01/28/2025 9:42 AM CDT) Hep C Ab Nonreactive Nonreactive Comment:Antibodies to HCV no t detected. Does NOT exclude the possibility of recent exposure to HCV. Current interpretive data was last revised on 22 Blood 01/28/2025 9:42 AM CDT 01/28/2025 10:56 AM CDT us Tamar Tang MD LAB MICROBIOLOGY - GENERAL ORD ERABLES Final Result [facility] [place] [address] from Last 3 Months or Most Recently Relevant to Health Maintenance
--- OUTSIDE RECORDS SUMMARY | 2025-05-24 18:44 | XMS_ITS | Encounter Summary ---
Author Organization [facility] Address [address] [place] [address] Care Team Providers Care Oncology Rep Name Role Phone Quinton Rowan MD Unavailable Pal Downey DO Primary Care Provider [phone] Tami Flores RN Unavailable [phone] Cricket Escalante MD Unavailable [phone] Gael Sprague MD PhD Unavailable Brad Turner MD Unavailable [phone] Margarita Montoya MD Unavailable Luca Lott MD Unavailable [phone] Pb Galloway MD Unavailable [phone] Felipe Gerber MD Unavailable [phone] Claire Rosales [facility] Unavailable Reason for Visit * Reason Onset Date Comments Admit Notification 05/04/2025 Encounter Details Date Type Department Care Team (Late st Contact Info) Description 05/04/2025 Telephone [facility] Bed Planning [address] [place] [address] Wiley Pulliam, second miller Notification Social History Tobacco Use Types Packs/Day Years [...] making you feel afraid or unsafe? 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 Gender Identity Female 01/16/2024 11:18 AM CDT Sexual Orientation Straight 01/16/2024 11 :18 AM CDT documented as of this encounter Plan of Treatment Scheduled Procedures Name Priority Associated Diagnoses Date/Ti me TRANSPLANT KIDNEY ESRD (end stage renal disease) (HCC) documented as of this encounter Visit Diagnoses Not on filedocumented in this encounter Care Teams Oncology Rep Relationship Specialty Start Date End Date Pal Downey DO PCP - General Internal Medicine 01/25/21 Quinton Rowan MD Referring Physician Cardiology 01/09/19 Tami Flores, TON[place] [address] [address] Registered Nurse Art Critic 01/25/21 Cricket Escalante MD [address] [address] Referring Physician Nephrology 03/24/21 Gael Sprague MD PhD [address] [facility] [address] [place] [address] Fellow Endocrinology Diabetes & Metabolism 03/24/21 Brad Turner MD [address] [address] Consulting Physician Obstetrics and Gynecology 03/24/21 Margarita Montoya MD [address] [address] Consulting Physician Trauma Surgery 12/27/21 Luca Lott MD [address] [facility] [address] [address] Consulting Physician Cardiology 08/03/22 Pb Galloway MD [address] [facility] [address] [address] Cardiothoracic Surgery 05/25/24 Felipe Gerber MD [address] [facility] [address] [address] Consulting Physician Cardiology 05/25/24 Claire Rosales, [facility] [address] [facility] [place] Mailstop [phone] [place] [address] [facility] Outpatient Director Of Business Applications 05/10/25 05/18/25 documented as of this encounter
--- NOTE | 2025-05-24 18:54 | PC.NURSE ---
Pt ambulated to exit using steady gait NAD noted
--- OUTSIDE RECORDS SUMMARY | 2025-05-24 19:07 | XMS_ITS | Clinical Summary ---
Author Organization [facility] Address [address] [place] [address] Care Team Providers Care Hat Marker Name Role Phone Quinton Rowan MD Unavailable Pal Downey DO Primary Care Provider [phone] Tami Flores RN Unavailable Cricket Escalante MD Unavailable [phone] Gael Sprague MD PhD Unavailable Brad Turner MD Unavailable Margarita Montoya MD Unavailable Luca Lott MD Unavailable Pb Galloway MD Unavailable Felipe Gerber MD Unavailable [phone] Allergies Active Allergy Reactions Criticality Noted [...] no reactions Penicillins Anaphylaxis,Rash,Un known High 04/29/2015 Pxoxmph-Tie-Dsy Reductase Inhibitors Muscle pain Medium 02/20/2025 Trialed [...] 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 [facility] admit 04/22-04/24 for afib with work up TSH wnl, hyperkalemic, troponins flat. Reports palpitations stopped last week. Planned direct admission for amiodarone loading, however, patient is no longer wanting to complete this (patient has appropriate concerns about intermediate designer side effects of Amio, particularly with her thyroid disease) - Home apixaban BID on hold until after LH - EP consulted -> recommended device interrogation, completed with known A.fib - Telemetry monitoring Assessment & Plan (05/06/2025 12:38 PM CDT): AT/AF burden 0.8% per device transmission. [facility] admit 04/22-04/24 for afib with work up TSH wnl, hyperkalemic, troponins flat. Reports palpitations stopped last week. Planned direct admission for amiodarone loading, however, patient is no longer wanting to complete this (patient has appropriate concerns about usp side effects of Amio, particularly with her thyroid disease) - Continue home apixaban BID - EP consulted -> recommended device interrogation (completed) and TTE - Telemetry monitoring Assessment & Plan (05/05/2025 5:31 PM CDT): AT/AF burden 0.8% per device transmission. [facility] admit 04/22-04/24 for afib with work [...] CDT): AT/AF burden 0.8% per device transmission. [facility] admit 04/22-04/24 for afib with work [...] PM CDT): s/p TAVR 06/2024. Follows with [facility]. Assessment & Plan (02/05/2025 3:15 PM CDT): [...] (02/01/2022): Added automatically from request for surgery [id number] Assessment & Plan (02/05/2025 3:15 PM CDT): Undergoing pre transplant evaluation. We will review with Dr. Lott regarding possible candidacy for transplant list given recent interventions. Continued to DAPT Disorder of peritoneal dialysis catheter 022 Overview (12/22/2021): Added automatically from request for surgery [id number] Chronic kidney disease, stage V 10/31/2021 Overview (08/21/2023): Added automatically from request for surgery [id number] Sick sinus syndrome 11/02/2020 Assessment & Plan [...] Assessment & Plan (02/25/2019 11:43 AM CDT): [facility] with 95% LAD lesion, had some [...] along w/ significant troponin elevation -Plan for [facility] w/ possible PCI tomorrow pending results [...] to 4.35 - valve team consulted, 02/09 [facility] with severe 1 vessel disease of [...] (02/09/2019): Added automatically from request for surgery [id number] Assessment & Plan (05/17/2019 9:19 AM CDT): [...] (02/10/2019): Added automatically from request for surgery [id number] Assessment & Plan (05/07/2025 3:38 PM CDT): [...] - continue plavix, holding Apixaban for upcoming [facility] - hold metop succinate due to [...] 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 Lott plans on completing [facility] next week and she will discharge home today with outpatient [facility] Assessment & Plan (05/06/2025 12:38 PM [...] instent restenosis 02/2025 s/p laser atherectomy and KAIRNA placmeent. On Repatha (last 04/11). 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 Escalante Continue lasix 40 mg [...] kidney disease, baseline Cr 2.4-2.6. F/b OSH die repair machinist. Apparently discussions for potential need for renal txp being discussed. - Cr at baseline on adm - avoid nephrotoxins, renally dose meds - continue calcitriol 0.5 mcg/day - Cr 2.75, received pre-cath hydration, stable 2.7 Headache 05/02/2016 Moderate COPD (chronic obstr uctive pulmonary disease) ([facility]) 11/02/2015 Assessment & Plan (05/07/2025 3:38 PM [...] AM CDT): Alexis TAVR 05/21 Followed by [facility], Dr. Lott. CT [...] not a candidate for intervention (declined by [facility], [facility]) Assessment & Plan (05/17/2019 9:28 [...] AV. Referred to valve team by primary director advertising Dr. Rowan. Seen 02/02 by valve team [...] around 2.4 Dr Escalante is her home die repair machinist Assessment & Plan (02/23/2019 12:20 PM CDT): Pt above POW by 2 kg. Lasix on hold due to elevation in Creatinine Baseline creat is around 2.4 Dr Escalante is her home die repair machinist Agitation requiring sedation protocol 02/14/2019 02/23/2019 Acute [...] she had reactions to (?). Per OSH die repair machinist's note in Care Everywhere, pt tried metoprolol [...] Care Team Description 05/19/2025 SHOP/CHAP Subsequent Outreach [facility] OP CASE MANAGEMENT [address] [place] [address] Claire Rosales LCSW 05/13/2025 SHOP/CHAP Subsequent Outreach [facility] OP CASE MANAGEMENT [address] [place] [address] Claire Rosales LCSW 05/12/2025 Telephone [facility] Cardiology [address] [facility] Advanced Medicine 8th [place] [address] [place] [address] Luca Lott MD 05/12/2025 Telephone [facility] [address] [facility] Medical Office Building [address] [place] [address] Luca Lott MD [facility] 05/12/2025 Telephone [facility] Heart [facility] Vascular [place] [address] [place] [address] Reagan Vences MD 05/11/2025 12:55 PM CDT - 05/11/2025 2:25 PM CDT Surgery [facility] Vascular [place] [address] [place] [address] Luca Lott MD LEFT HEART CATHETERIZATION WITH CORONARY ANGIOGRAPHY AND WITH OR WITHOUT LEFT VENTRICULOGRAM [id number] 05/11/2025 11:13 AM CDT - 05/11/2025 7:34 PM CDT [facility] Vascular [place] [address] [place] [address] Luca Lott MD Chronic heart failure with preserved ejection fraction (HCC) [I50.32] (Primary Dx); Coronary artery disease involving osage coronary artery of osage heart without angina pectoris Discharge Disposition: Discharge to home or self care 05/10/2025 SHOP/CHAP Initial Outreach [facility] OP CASE MANAGEMENT [address] [place] [address] Claire Rosales LCSW 05/10/2025 SHOP/CHAP Initial Eligibility Review [facility] OP CASE MANAGEMENT [address] [place] [address] Claire Rosales LCSW 05/07/2025 Telephone [facility] Cardiology [facility] Advanced Medicine 8th [place] [address] [place] [address] Luca Lott MD 05/04/2025 7:27 PM CDT - 05/07/2025 5:52 PM CDT Hospital Encounter [facility] [address] [place] [address] Kalen Villegas MD PhD [facility] MD Tirso Mejia, Ashley Farnsworth MD Discharge Disposition: Discharge to home or self care 05/04/2025 Telephone [facility] Bed Planning [address] [place] [address] Wiley Pulliam, dermatology nurse practitioner Notification 04/29/2025 Orders Only [facility] Cardiology [facility] Building [address] [place] [address] Lane Ramos MD PhD S/P placement of cardiac pacemaker; Sick sinus syndrome (HCC) 04/28/2025 Telephone [facility] Cardiology [facility] Advanced Medicine 8th [place] [address] [place] [address] [address] Ramos MD PhD 04/27/[address] [facility] Medical Group Cardiology [address] [place] [address] Eduin Springer MD 04/26/2025 Telephone [facility] [address] [place] [address] Advanced Medicine 8th [place] [address] [place] [address] Luca Lott MD 04/23/2025 Orders Only [address] Building [address] [place] [address] [address] Ramos MD PhD 04/20/2025 2:00 PM CDT Ancillary Procedure [facility] [address] [place] [address] [address] [place] [address] Palpitations 04/20/2025 10:00 AM CDT - 04/20/2025 11:59 PM CDT Hospital Encounter [address] [address] ESRD (end stage renal disease) (HCC) Discharge Disposition: Discharge to home or self care 04/20/2025 Orders Only [facility] [address] Medical Office Building [address] [place] [address] Luca Lott MD Palpitations (Primary Dx) 04/07/2025 11:30 AM CDT Office Visit [facility] [address] [facility] Medical Office Building [address] [place] [address] Luca Lott MD Nonrheumatic aortic valve stenosis (Primary Dx); Coronary artery disease involving osage coronary artery of osage heart without angina pectoris 04/07/2025 Telephone [facility] and [facility] Transplant Kidney [address] Mailstop [id number] [place] [address] Tiarra Mcdermott 04/07/2025 Telephone [facility] and [facility] Transplant Kidney [address] Mailstop [id number] [place] [address] Tami Flores, RN 03/27/2025 Orders Only [facility] [address] [facility] 8th [place] [address] [place] [address] Claire Mcnally, RN 03/25/2025 10:00 AM CDT - 03/25/2025 11:59 PM CDT Hospital Encounter [facility] [address] [place] [address] ESRD (end stage renal disease) ([facility]) Discharge Disposition: Discharge to home or self care 03/02/2025 SHOP/CHAP Initial Outreach [facility] OP CASE MANAGEMENT [address] [place] [address] Claire Rosales LCSW 03/01/2025 10:00 AM CDT - 03/01/2025 11:59 PM CDT Hospital Encounter [address] [address] ESRD (end stage renal disease) (HCC) Discharge Disposition: Discharge to home or self care 02/26/2025 SHOP/CHAP Initial Outreach [facility] OP CASE MANAGEMENT [address] [place] [address] Claire Rosales LCSW 02/25/2025 SHOP/CHAP Initial Outreach [facility] OP CASE MANAGEMENT [address] [place] [address] Claire Rosales LCSW 02/25/2025 SHOP/CHAP Initial Eligibility Review [facility] OP CASE MANAGEMENT [address] [place] [address] Claire Rosales LCSW 02/23/2025 11:33 AM CDT - 02/23/2025 12:53 PM CDT Surgery [facility] [address] [place] [address] Luca Lott MD LEFT HEART CATHETERIZATION WITH CORONARY ANGIOGRAPHY AND WITH OR WITHOUT LEFT VENTRICULOGRAM [id number] 02/20/2025 8:07 PM CDT - 02/24/2025 3:54 PM CDT Hospital Encounter [address] [address] Elvin Giordano, MD Antonina Nails, Ellie Hahn MD Acute coronary syndrome (HCC) (Primary Dx); Chest pain [R07.9]; Coronary artery disease involving osage coronary artery of osage heart without angina pectoris [I25.10] Discharge Disposition: [...] Procedure: PCI KARINA MAJOR CORONARY C9600 - [id number]; Surgeon: Luca Lott MD; Location: [facility] CARDIAC SPINDLE FRAME CARVER; Service: Cardiovascular; Laterality: N/A; Medical devices from this surgery are in the Medical Devices section. CARDIAC CATHETERIZATION 02/23/2025 N/A Procedure: LEFT HEART CATHETERIZATION WITH CORONARY ANGIOGRAPHY AND WITH OR WITHOUT LEFT VENTRICULOGRAM [id number]; Surgeon: Luca Lott MD; Location: [facility] CARDIAC SPINDLE FRAME CARVER; Service: Cardiovascular; Laterality: N/A; Medical devices from this surgery are in the Medical Devices section. CARDIAC CATHETERIZATION 05/11/2025 N/A Procedure: LEFT HEART CATHETERIZATION WITH CORONARY ANGIOGRAPHY AND WITH OR WITHOUT LEFT VENTRICULOGRAM [id number]; Surgeon: Luca Lott MD; Location: [facility] CARDIAC SPINDLE FRAME CARVER; Service: Cardiovascular; Laterality: N/A; Medical devices from this surgery are in the Medical Devices section. Medical History Medical History Date Comments Hypertension Essential Thyroid mass s/p resection Coronary artery disease invo lving osage heart 02/07/2019 Added automatically from req uest for surgery [id number] (LAD, LCA) Volume overload 02/14/2019 Leukocytosis 02/21/2019 [...] ESRD on peritoneal dialysis (HCC) Heart murmur PR (myocardial infarction) (HCC) CHF (congestive heart failure) ([facility]) Nausea 05/10/2019 Aortic valve insufficiency, acquired 05/19/2024 [...] = 0.6 oz pur e alcohol) occasional [employer] Utilities Answer Date Recorded In the past 12 months has th e [place], gas, oil, or water Narrable threatened to shut off services in your home? Patient declined 05/10/2025 Social Connection and Isolation Panel [NHANES] A nswer Date Recorded In a typical week, how many times do you talk on the phone with family, friends, or neighbors? Patient declined 05/10/2025 How often do you get togethe r with friends or relatives? Patient declined 05/10/2025 How often do you attend muslim or jehovah's witness serv ices? Patient declined 05/10/2025 Do you belong to any clubs o r organizations such as muslim groups, unions, fraternal or athletic groups, or [...] any time in the past 12 m [facility], were you homeless or living in a intermediate (including now)? Patient declined 05/10/2025 Personal Safety Answer Date Recorded Have you ever been in or are you currently in a harmful physical or emotional relationship or is someone making you feel afraid or unsafe? Denies 05/11/2025 Comments No Sex and Gender Information Value Date Recorded Sex Assigned at Not on file Legal Sex Female 4:06 AM ORDER PICKER/ASSEMBLER Gender Identity Female 01/16/2024 11:18 AM CDT [...] TRANSPLANT KIDNEY ESRD (end stage renal disease) ([facility]) Health Maintenance Due Date Last Done Comments [...] 03/06/2023, 05/04/2021 Medical Devices Implanted Type Area Sustainable Development Policy Analyst Device Identifier Shelf Expiration Date Model / Serial / Lot Angio-Seal Evolution 6fr Vascular Closure [id number] - [id number] - [id number] Implanted:Qty: 1 on 03/09/2022 by Luca Lott MD at [facility] Collagen Right: Femoral Terumo [employer] Pam 09/19/2022 [id number] / [id number] / [id number] Ter[employer]o [employer] Pam Angio-Seal Vip 6fr Closere Device 065825 - [id number] - [id number] Implanted:Qty: 1 on 07/24/2022 by Luca Lott MD at [facility] Collagen [employer] Pam 03/20/2023 835119 / [id number] / [id number] Ter[employer]o [employer] Pam Angio-Seal Vip 6fr Closere Device 131758 - [id number] - [id number] Implanted:Qty: 1 on 05/21/2024 at [facility] Collagen Right: Common Femoral Artery [employer] Pam 01/09/2025 569389 / [id number] / [id number] Ter[employer]o [employer] Pam Angio-Seal Vip [place]-Plus 8fr .038in 70cm Hemostatic Latex Free 418726 - [id number] - [id number] Implanted:Qty: 1 on 05/21/2024 by Felipe Gerber MD at [facility] Collagen Right: Common Femoral Artery [employer] Pam 01/06/2025 714857 / [id number] / [id number] Terumo Medical Pam Angio-Seal Vip 6fr Closere Device 507357 - [id number] - [id number] Implanted:Qty: 1 on 02/23/2025 by Luca Lott MD at [facility] Collagen [place] [employer] Pam 06/15/2025 570440 / [id number] / [id number] Medtronic Cardiac Rhythm Mgmt 5076-52 Capsurefix Novus 6.2fr 2mm 52cm Bipolar Screw In Implantable Latex Free - [id number] - [id number] Implanted:Qty: 1 on 05/15/[address] Ramos MD PhD at [facility] Lead Medtronic Inc 03/11/2021 5076-52 / [id number] / Medtronic Cardiac Rhythm Mgmt 5076-45 Capsurefix Novus 6.2fr 2mm 45cm Bipolar Screw In Implantable - [id number] - [id number] Implanted:Qty: 1 on 05/15/[address] Ramso MD PhD at [facility] Lead Medtronic Inc 03/30/2021 5076-45 / [id number] / [employer] 1413-27-3393-01 Linear 7.5fr 6in Insertion Kit Track Moving Machine Operator Introducer Sheath - [id number] Implanted:Qty: 1 on 02/10/2019 by Luca Lott MD at [facility] Other - see comments [employer] 0684-00 -[id number] 1 / / Description:IABP Medtronic Inc [id number] [place] Curl Cath Beta-Cap Holden 15fr 57cm 2 Cuff Clamp Adapter - S0 - [id number] Implanted:Qty: 1 on 11/21/2021 by Carlos Kamara MD at [facility] Other - see comments N/A: Abdomen Medtronic Inc 11/30/2022 8811-31 3015 / 0 / [id number] Medtronic Cardiac Rhythm Mgmt W1dr01 Tereza Wirelessly Pacemaker Cardiac - [id number] - [id number] Implanted:Qty: 1 on 05/15/[address] Ramos MD PhD at [facility] Pacemaker Medtronic Inc [id number] 09/17/2020 W1DR01 / [id number] / Jamil Lifesciences Valve Aortic Trnscath Brown 3 Ultra Resilia 20mm 8640yep40e - [id number] - [id number] Implanted:Qty: 1 on 05/21/2024 by Felipe Gerber MD at [facility] Prosthetic Valve N/A: Aortic Valve [employer]iences 02/27/2027 [id number] 20A / [id number] / Medtronic Inc Resolute Dickens 4mm 2.1-2.7fr 12mm 140cm Rapid Exchange Radiopaque [id number] - [id number] - [id number] Implanted:Qty: 1 on 03/09/2022 by Luca Lott MD at [facility] Stent Left: Coronary Medtronic Inc 12/06/2022 [id number] 012UX / [id number] / [id number] Description:LAD Biotronik Inc Stent Coronary De Rx Cocr Ors Msn 4.0x15mm 913997 - [id number] - [id number] Implanted:Qty: 1 on 07/24/2022 by Luca Lott MD at [facility] Stent Biotronik Inc 09/05/2023 600406 / [id number] / [id number] Medtronic Card Vasc Surgery 4.0 X 15mm [place] Rx Coronary Stent [id number] - [id number] - [id number] Implanted:Qty: 1 on 11/19/2024 by Luca Lott MD at [facility] Stent N/A: Saphenous Vein Graft Medtronic Card Vasc Surgery 05/05/2027 [id number] [id number] / [id number] / [id number] Medtronic Card Vasc Surgery 2.50 X 12mm [place] Rx Coronary Stent [id number] - [id number] - [id number] Implanted:Qty: 1 on 12/25/2024 by Luca Lott MD at [facility] Stent Medtronic Card Vasc Surgery 06/03/2027 ONYXNG2 [id number] / [id number] / [id number] [employer] Pam Synergy Xd Monorail 3mm 20mm 144cm Delivery System 1 Access Port [id number] - [id number] - [id number] Implanted:Qty: 1 on 02/23/2025 by Luac Lott MD at [facility] Stent [employer] Pam 06/08/2026 [id number] / [id number] / [id number] Painter Vascular System Closure Repair Femoral Artery Suture Mediated Perclose Prostyle 09810-60 - [id number] - [id number] Implanted:Qty: 1 on 05/21/2024 by Felipe Gerber MD at [facility] Vascular Closure Device Left: Common Femoral Artery Painter Vascular 02/17/2026 44943-6 3 / [id number] / [id number] Ter[employer]o [employer] Pam Angio-Seal Vip 6fr Closere Device 550468 - [id number] - [id number] Implanted:Qty: 1 on 11/19/2024 by Luca Lott MD at [facility] Vascular Closure Device N/A: Saphenous Vein Graft [employer] Pam 04/29/2025 921378 / [id number] / [id number] Terumo Medical Pam Angio-Seal Vip 6fr Closere Device 453624 - [id number] - [id number] Implanted:Qty: 1 on 12/25/2024 by Sanket Quiroz MD at [facility] Vascular Closure Device Right: Common Femoral Artery [employer] Pam 06/30/2025 859347 / [id number] / [id number] Description:RFA [employer] Pam Angio-Seal Vip [place]de[place]-Plus 8fr .038in 70cm Hemostatic Latex Free 429628 - [id number] - [id number] Implanted:Qty: 1 on 12/25/2024 by Sanket Quiroz MD at [facility] Vascular Closure Device Right: Femoral Vein [employer] Pam 07/21/2025 853600 / [id number] / [id number] Description:RFV [employer] Pam Angio-Seal Vip 6fr Closere Device 001710 - [id number] - [id number] Implanted:Qty: 1 on 05/11/2025 by Rio Jacobs MD at [facility] V[facility] Closure Device Right: Common Femoral Artery [employer] Pam 12/31/2025 866579 / [id number] / [id number] [employer] Pam [id number] Supple Ronna-Guard [place] Processing 4x4cm Patch Cardiovascular - [id number] - [id number] Implanted:Qty: 1 on 02/11/2019 by Christopher Holman MD at [facility] N/A: Chest [employer] 06/03/2023 [id number] / 3211-04 040010 / [id number] Jamil Lif[employer]iences [id number] Certitude Brown 3 Atrion 18fr Transcatheter Introducer Crimper - [id number] - [id number] Implanted:Qty: 1 on 02/11/2019 by Christopher Holman MD at [facility] N/A: Heart Jamil [employer]iences [id number] 0A / [id number] / Medtronic Inc [id number] [place] Curl Cath Beta-Cap Holden 15fr 57cm 2 Cuff Clamp Adapter - [id number] Implanted:Qty: 1 on 12/27/2021 by Margarita Montoya MD at [facility] N/A: Abdomen Medtronic Inc 10/14/2023 8811-31 3015 [...] 4:14 PM CDT Coronary artery disease involving osage coronary artery of osage heart without angina pectoris POCT ACTIVATED CLOTTING [...] - REMOTE Routine 04/23/2025 12:51 AM CDT EXTENDED/PENITENTIARY HOLTER PATCH (>48 HOURS UP TO 7 [...] R esult [facility] Department [place] [address] * Differential, auto (05/11/2025 6:30 PM CDT) Neutrophil abs 4.30 1.50 - 6.50 K/cumm Comment:Collection date/time has been modified to: 18:30:00. Previous collection date/time: 17:32:00. Imm gran abs 0.02 0.00 - 0.10 K/cumm [facility] Comment:Collection date/time has been modified to: 18:30:00. Previous collection date/time: 17:32:00. Lymphocyte abs 0.83 0.80 - 3.30 K/cumm [facility] Comment:Collection date/time has been modified to: 18:30:00. Previous collection date/time: 17:32:00. Monocyte abs 0.28 0.20 - 0.80 K/cumm [facility] Comment:Collection date/time has been modified to: 18:30:00. Previous collection date/time: 17:32:00. Eosinophil abs 0.19 0.00 - 0.50 K/cumm [facility] Comment:Collection date/time has been modified to: 18:30:00. Previous collection date/time: 17:32:00. Basophil abs 0.02 0.00 - 0.10 K/cumm [facility] Comment:Collection date/time has been modified to: 18:30:00. Previous collection date/time: 17:32:00. Neutrophil pct 76.1 % [facility] Comment: Collection date/time has been modified to: 18:30:00. Previous collection date/time: 17:32:00. Interpretive Data Percent cell count reference ranges are not reported, since discordance with absolute values may lead to misinterpretation of CBC data. Current Interpretive Data was last revised on 2018. Imm gran pct 0.4 % [facility] Comment: Collection date/time has been modified to: 18:30:00. Previous collection date/time: 17:32:00. Interpretive Data Percent cell count reference ranges are not reported, since discordance with absolute values may lead to misinterpretation of CBC data. Current Interpretive Data was last revised on 2018. Lymphocyte pct 14.7 % [facility] Comment: Collection date/time has been modified to: 18:30:00. Previous collection date/time: 17:32:00. Interpretive Data Percent cell count reference ranges are not reported, since discordance with absolute values may lead to misinterpretation of CBC data. Current Interpretive Data was last revised on 2018. Monocyte pct 5.0 % [facility] Comment: Collection date/time has been modified to: 18:30:00. Previous collection date/time: 17:32:00. Interpretive Data Percent cell count reference ranges are not reported, since discordance with absolute values may lead to misinterpretation of CBC data. Current Interpretive Data was last revised on 2018. Eosinophil pct 3.4 % [facility] Comment: Collection date/time has been modified to: 18:30:00. Previous collection date/time: 17:32:00. Interpretive Data Percent cell count reference ranges are not reported, since discordance with absolute values may lead to misinterpretation of CBC data. Current Interpretive Data was last revised on 2018. Basophil pct 0.4 % [facility] Comment: Collection date/time has been modified [...] Edited Result - Final [facility] [place] [address] * (ABNORMAL) CBC with auto differential (05/11/2025 6:30 PM CDT) WBC 5.64 3.80 - 9.90 K/cumm Comment:Collection date/time has been modified to: 18:30:00. Previous collection date/time: 17:32:00. Hgb 11.5(L) 11.9 - 15.5 g/dL [facility] Comment:Collection date/time has been modified to: 18:30:00. Previous collection date/time: 17:32:00. Hct 36.8 35.6 - 45.5 % [facility] Comment:Collection date/time has been modified to: 18:30:00. Previous collection date/time: 17:32:00. Plt 158 150 - 400 K/cumm [facility] Comment:Collection date/time has been modified to: 18:30:00. Previous collection date/time: 17:32:00. MPV 10.7 9.1 - 12.3 fL [facility] Comment:Collection date/time has been modified to: 18:30:00. Previous collection date/time: 17:32:00. RBC 3.94 3.90 - 5.20 M/cumm [facility] Comment:Collection date/time has been modified to: 18:30:00. Previous collection date/time: 17:32:00. MCV 93.4 81.3 - 96.4 fL [facility] Comment:Collection date/time has been modified to: 18:30:00. Previous collection date/time: 17:32:00. MCH 29.2 27.1 - 33.3 pg [facility] Comment:Collection date/time has been modified to: 18:30:00. Previous collection date/time: 17:32:00. MCHC 31.3(L) 32.3 - 35.7 g/dL [facility] Comment:Collection date/time has been modified to: 18:30:00. Previous collection date/time: 17:32:00. RDW CV 16.3(H) 11.1 - 14.9 % [facility] Comment:Collection date/time has been modified to: 18:30:00. Previous collection date/time: 17:32:00. RDW SD 55.2(H) 35.7 - 48.1 fL [facility] Comment:Collection date/time has been modified to: 18:30:00. Previous collection date/time: 17:32:00. NRBC abs 0.00 0.00 - 0.01 K/cumm [facility] Comment:Collection date/time has been modified to: 18:30:00. Previous collection date/time: 17:32:00. Blood 05/11/2025 6:30 PM CDT 05/11/2025 6:39 PM CDT Luca Lott MD LAB BLOOD ORDERABLES Edited Result - Final [facility] [place] [address] * (ABNORMAL) Basic metabolic panel (05/11/2025 6:30 PM CDT) Sodium 134(L) 135 - 145 mmol/L Potassium, pl 5.4(H) 3.3 - 4.9 mmol/L [facility] Chloride 96(L) 97 - 110 mmol/L [facility] CO2 26 22 - 32 mmol/L [facility] Anion gap 12 2 - 15 mmol/L [facility] BUN 57(H) 6 - 25 mg/dL [facility] Creatinine 13.94(H) 0.60 - 1.10 mg/dL [facility] Glucose 114 70 - 199 mg/dL [facility] Comment: [...] Calcium 8.3(L) 8.5 - 10.3 mg/dL [facility] Blood 05/11/2025 6:30 PM CDT 05/11/2025 6:39 PM CDT us Luca Lott MD LAB BLOOD ORDERABLES Final R esult [facility] [place] [address] * LEFT HEART CATHETERIZATION WITH CORONARY ANGIOGRAPHY [...] 54 y.o. female : 1970 MR number: [id number] Date of Service: 05/11/2025 Building Principal: Luca Lott MD Fellow: Rio Jacobs MD [...] obtained. The patient was brought to the phlebotomy lab assistant and placed on the table Bilateral groins [...] coronary artery angiogram performed using a 6 Hong Konger JL 3 guide Percutaneous coronary intervention performed on the Proximal vein graft to the LAD. This was an ACC/AHA Type C. Initial Lesion Length 12mm and final lesion Length 12mm. Initial KAROLINA Flow 3 Final KAROLINA Flow 3. Equipment used: 6 3D RC [place] IVUS Catheter, Broadcast Journalist 50 wire, 0.9 mm laser atherectomy catheter [...] got the guide to sit and a Broadcast Journalist 50 wire down into the LAD. Next [...] 284(H) 123 - 168 sec POC Performer [id number] [facility] POC Device Number [id number] [facility] Blood 05/11/2025 4:12 PM CDT 05/11/2025 4:12 PM CDT us Luca Lott MD LAB POCT ORDERABLES - DEVICE Final Result [facility] Department [place] [address] * (ABNORMAL) POCT Activated clotting time, low range (05/11/2025 3:50 PM CDT) ACT 290(H) 123 - 168 sec POC Performer [id number] [facility] POC Device Number [id number] [facility] Blood 05/11/2025 3:50 PM CDT 05/11/2025 3:50 PM CDT Luca Lott MD LAB POCT ORDERABLES - DEVICE Final Result Performing Organization Address [facility] Co de Phone Number [facility] [place] [address] * (ABNORMAL) Potassium, whole blood (05/11/2025 12:00 PM CDT) Potassium, bld 5.0(H) 3.3 - 4.9 mmol/L Blood 05/11/2025 12:0 0 PM CDT 05/11/2025 12:12 PM CDT Kasi Garcia [employer] COUNTER PERSON LAB BLOOD ORDERABLES F inal Result Performing Organization Address [facility] de Phone Number [facility] [place] [address] * (ABNORMAL) POC Blood Gas and Chemistries, [...] Performing Organization Address [facility] Co de Phone Number [facility] [place] [address] * TRANSTHORACIC ECHO (TTE) COMPLETE W DOPPLER/CF W CONTRAST (05/07/2025 10:16 AM CDT) Estimated EF 55-60 % CONS SCIMAGE Anatomical Region Laterality Modality Ultrasound 05/06/2025 3:39 PM CDT Narrative 05/06/2025 6:28 PM CDT [facility] [place] [address] Transthoracic Echocardiographic Report Patient Name: ESTUARDO COPELAND M : 1970 (54y 5m) Gender: F Study Date: 05/06/2025 03:39:15 PM Ht(Inch): 64 Wt(Lb): 132.94 BSA: 1.65 Air Support Control Officer: Brad Tripathi RDCS Location: [id number] Order Provider: ASHLEY CHAHAL Heart Rate: 65 [...] Procedure Note Job Gordon MD - 05/06/2025 [facility] [place] [address] Transthoracic Echocardiographic Report Patient Name: ESTUARDO COPELAND M : 1970 (54y 5m) Gender: F Study Date: 05/06/2025 03:39:15 PM Ht(Inch): 64 Wt(Lb): 132.94 BSA: 1.65 Air Support Control Officer: Brad Tripathi RDCS Location: [place] [address] Order Provider: ASHLEY CHAHAL Heart Rate: 65 [...] cm/m2 [ 1.00 - 2.00 ] MV SGO693.27 msec [ 20.00 - 100.00 ] Asc Ao Diam 2D 1.63 cm MVA PHT2.11 cm2 Asc Ao Index 0.99 cm/m2 MV Decel Lcrq254.23 msec [ 104.00 - 258.00 ] Med [...] LAB BLOOD ORDERAB LES Final Result [facility] [place] [address] * (ABNORMAL) Vitamin D 25 hydroxy (05/07/2025 6:17 AM CDT) Vitamin D 25-OH 22(L) 30 - 80 ng/mL Blood 05/07/2025 6:17 AM CDT 05/07/2025 6:55 AM CDT us Ashley Chahal MD LAB BLOOD ORDERAB LES Final Result [facility] Department [place] [address] * (ABNORMAL) CBC without differential (05/07/2025 6:17 AM CDT) Pathologist [facility] WBC 6.90 3.80 - 9.90 K/cumm Hgb 12.4 11.9 - 15.5 g/dL [facility] Hct 39.1 35.6 - 45.5 % [facility] Plt 157 150 - 400 K/cumm [facility] MPV 10.4 9.1 - 12.3 fL [facility] RBC 4.19 3.90 - 5.20 M/cumm [facility] MCV 93.3 81.3 - 96.4 fL [facility] MCH 29.6 27.1 - 33.3 pg [facility] MCHC 31.7(L) 32.3 - 35.7 g/dL [facility] RDW CV 16.6(H) 11.1 - 14.9 % [facility] RDW SD 56.4(H) 35.7 - 48.1 fL [facility] NRBC abs 0.00 0.00 - 0.01 K/cumm [facility] Blood 05/07/2025 6:17 AM CDT 05/07/2025 6:55 AM CDT us Ashley Chahal MD LAB BLOOD ORDERAB LES Final Result [facility] [place] [address] * (ABNORMAL) PTH (05/07/2025 6:17 AM CDT) Pathologist [facility] PTH 9(L) 15 - 65 pg/mL Blood 05/07/2025 6:17 AM CDT 05/07/2025 6:55 AM CDT Ashley Chahal MD LAB BLOOD ORDERAB LES Final Result [facility] [place] [address] * (ABNORMAL) Renal function panel (05/07/2025 6:17 AM CDT) [facility] Sodium 136 135 - 145 mmol/L Potassium, pl 5.1(H) 3.3 - 4.9 mmol/L [facility] Chloride 96(L) 97 - 110 mmol/L [facility] CO2 27 22 - 32 mmol/L [facility] Anion gap 13 2 - 15 mmol/L [facility] BUN 52(H) 6 - 25 mg/dL [facility] Creatinine 14.17(H) 0.60 - 1.10 mg/dL [facility] Glucose 86 70 - 199 mg/dL [facility] Comment: [...] 2022. Calcium 8.8 8.5 - 10.3 mg/dL [facility] Phosphorus, pl 9.9(H) 2.3 - 4.5 mg/dL [facility] Albumin 2.8(L) 3.5 - 5.0 g/dL [facility] Blood 05/07/2025 6:17 AM CDT 05/07/2025 6:55 AM CDT Ashley Chahal MD LAB BLOOD ORDERAB LES Final Result Performing Organization Address City/[facility] Co de Phone Number [facility] [place] [address] * Cortisol (05/06/2025 8:36 AM CDT) Cortisol [...] ORDERAB LES Final Result Performing Organization Address [facility] Co de Phone Number [facility] [place] [address] * (ABNORMAL) eGFR (05/06/2025 3:41 AM CDT) [...] ORDERAB LES Final Result Performing Organization Address [facility] Co de Phone Number [facility] Department [place] [address] * (ABNORMAL) Magnesium (05/06/2025 3:41 AM CDT) Pathologist [facility] Magnesium 2.7(H) 1.4 - 2.5 mg/dL Blood 05/06/2025 3:41 AM CDT 05/06/2025 4:14 AM CDT Ashley Chahal MD LAB BLOOD ORDERAB LES Final Result Performing Organization Address [facility] de Phone Number [facility] [place] [address] * (ABNORMAL) Renal function panel (05/06/2025 3:41 AM CDT) [facility] Sodium 136 135 - 145 mmol/L Potassium, pl 4.9 3.3 - 4.9 mmol/L [facility] Chloride 97 97 - 110 mmol/L [facility] CO2 25 22 - 32 mmol/L [facility] Anion gap 14 2 - 15 mmol/L [facility] BUN 56(H) 6 - 25 mg/dL [facility] Creatinine 14.58(H) 0.60 - 1.10 mg/dL [facility] Glucose 107 70 - 199 mg/dL [facility] Comment: [...] 2022. Calcium 9.0 8.5 - 10.3 mg/dL [facility] Phosphorus, pl 10.0(H) 2.3 - 4.5 mg/dL [facility] Albumin 2.7(L) 3.5 - 5.0 g/dL [facility] Blood 05/06/2025 3:41 AM CDT 05/06/2025 4:14 AM CDT Ashley Chahal MD LAB BLOOD ORDERAB LES Final Result Performing Organization Address [facility] de Phone Number [facility] [place] [address] * (ABNORMAL) Troponin I high-sensitivity 6-hour (05/05/2025 11:37 AM CDT) Trop I hs 172(H) <=17 ng/L Comment: Previous critical value noted within 48 hours ago. Interpretive Data For further hscTnI resources including the diagnostic algorithm and an aid in interpretation, copy and paste this link: [email or web address].[email or web address]/show/hsTrop-1 Current Interpretive Data last revised 2020. Trop I hs pct delta -11 % [facility] Trop I hs interp Equivocal [facility] Blood 05/05/2025 11:3 7 AM CDT 05/05/2025 12:24 PM CDT us Jacqueline Jules MD LAB BLOOD ORDER WEST[place] Final Result Performing Organization Address [facility] Co de Phone Number [facility] Department [place] [address] * (ABNORMAL) Troponin I high-sensitivity 4-hour (05/05/2025 9:06 AM CDT) Pathologist [facility] Trop I hs 189(H) <=17 ng/L Comment: Interpretive Data For further hscTnI resources including the diagnostic algorithm and an aid in interpretation, copy and paste this link: [email or web address] [email or web address]/show/hsTrop-1 Current Interpretive Data last revised 2020. Trop I hs pct delta -3 % [facility] Trop I hs interp Insignificant [facility] H Blood 05/05/2025 9:06 AM CDT 05/05/2025 9:54 AM CDT Jacqueline Jules MD LAB BLOOD ORDER WEST[place] Final Result Performing Organization Address [facility] Co de Phone Number [facility] [place] [address] * (ABNORMAL) Troponin I high-sensitivity 2-hour (05/05/2025 6:36 AM CDT) [facility] Trop I hs 192(H) <=17 ng/L Comment: Interpretive Data For further hscTnI resources including the diagnostic algorithm and an aid in interpretation, copy and paste this link: [email or web address] [email or web address]/show/hsTrop-1 Current Interpretive Data last revised 2020. Trop I hs pct delta -1 % [facility] Trop I hs interp Insignificant [facility] BJ Blood 05/05/2025 6:36 AM CDT 05/05/2025 8:08 AM CDT Jacqueline Jules MD LAB BLOOD ORDER WEST[place] Final Result Performing Organization Address City/[facility]/ZIP Co de Phone Number [facility] [place] [address] * (ABNORMAL) Troponin I high-sensitivity series (baseline, [...] ORDER WESTON Final Result Performing Organization Address City/[facility] Co de Phone Number [facility] [place] [address] * (ABNORMAL) eGFR (05/05/2025 4:48 AM CDT) [...] ORDER WESTON Final Result Performing Organization Address City/[facility]/ZIP Co de Phone Number [facility] [place] [address] * (ABNORMAL) Pro B-type natriuretic peptide (05/05/2025 [...] ORDER WESTON Final Result [facility] [place] [address] * (ABNORMAL) Thyroid Function [place] (05/05/2025 4:48 AM CDT) Pathologist [facility] TSH 14.50(H) 0.30 - 4.20 mcIUnit/mL Blood 05/05/2025 4:48 AM CDT 05/05/2025 5:03 AM CDT Jacqueline Jules MD LAB BLOOD ORDER WEST[place] Final Result Performing Organization Address [facility] Co de Phone Number [facility] [place] [address] * Protime-INR (05/05/2025 4:48 AM CDT) Pathologist [facility] PT 12.4 9.7 - 13.0 sec INR 1.14 0.90 - 1.20 [facility] Comment: Interpretive data Oral anticoagulant therapeutic ranges: Venous thromboembolism prophylaxis or treatment: 2.0-3.0 CARDIOLOGY Standard range: 2.0-3.0 High-intensity range: 2.5-3.5 Refer to indication-specific guidelines for appropriate target ranges for prosthetic heart valve replacement. Current interpretive data was last revised on 2019. Blood 05/05/2025 4:48 AM CDT 05/05/2025 5:13 AM CDT Narrative [facility] - 05/05/2025 5:19 AM CDT Baseline prior to apixaban initiation. Jacqueline Jules MD LAB BLOOD ORDER WESTON Final Result [facility] [place] [address] * (ABNORMAL) CBC without differential (05/05/2025 4:48 AM CDT) Pathologist [facility] WBC 5.83 3.80 - 9.90 K/cumm Hgb 11.8(L) 11.9 - 15.5 g/dL [facility] Hct 37.7 35.6 - 45.5 % [facility] Plt 131(L) 150 - 400 K/cumm [facility] MPV 10.9 9.1 - 12.3 fL [facility] RBC 4.00 3.90 - 5.20 M/cumm [facility] MCV 94.3 81.3 - 96.4 fL [facility] MCH 29.5 27.1 - 33.3 pg [facility] MCHC 31.3(L) 32.3 - 35.7 g/dL [facility] RDW CV 16.8(H) 11.1 - 14.9 % [facility] RDW SD 56.8(H) 35.7 - 48.1 fL [facility] NRBC abs 0.00 0.00 - 0.01 K/cumm [facility] Blood 05/05/2025 4:48 AM CDT 05/05/2025 5:04 AM CDT Jacqueline Jules MD LAB BLOOD ORDER WEST[place] Final Result Performing Organization Address City/[facility] Co de Phone Number [facility] [place] [address] * (ABNORMAL) T4, free (05/05/2025 4:48 AM CDT) Free T4 0.70(L) 0.90 - 1.70 ng/dL Blood 05/05/2025 4:48 AM CDT 05/05/2025 5:03 AM CDT Narrative [facility] - 05/05/2025 6:23 AM CDT This test was reflexed from a TSH result. Jacqueline Jules MD LAB BLOOD ORDER WESTON Edited Result - Final [facility] [place] [address] * (ABNORMAL) Phosphorus (05/05/2025 4:48 AM CDT) Phosphorus, pl 11.7(H) 2.3 - 4.5 mg/dL Blood 05/05/2025 4:48 AM CDT 05/05/2025 5:03 AM CDT Jacqueline Jules MD LAB BLOOD ORDER WESTON Final Result Performing Organization Address [facility] de Phone Number [facility] [place] [address] * (ABNORMAL) Magnesium (05/05/2025 4:48 AM CDT) Pathologist [facility] Magnesium 2.9(H) 1.4 - 2.5 mg/dL Blood 05/05/2025 4:48 AM CDT 05/05/2025 5:03 AM CDT Jacqueline Jules MD LAB BLOOD ORDER WESTON Final Result Performing Organization Address [facility] de Phone Number [facility] [place] [address] * Bilirubin, direct (05/05/2025 4:48 AM CDT) Bilirubin, direct <0.2 0.1 - 0.3 mg/dL Blood 05/05/2025 4:48 AM CDT 05/05/2025 5:03 AM CDT Jacqueline Jules MD LAB BLOOD ORDER WESTON Final Result Performing Organization Address [facility] de Phone Number [facility] [place] [address] * (ABNORMAL) Comprehensive metabolic panel (05/05/2025 4:48 AM CDT) Sodium 140 135 - 145 mmol/L Potassium, pl 5.1(H) 3.3 - 4.9 mmol/L [facility] Chloride 100 97 - 110 mmol/L [facility] CO2 24 22 - 32 mmol/L [facility] Anion gap 16(H) 2 - 15 mmol/L [facility] BUN 60(H) 6 - 25 mg/dL [facility] Creatinine 14.48(H) 0.60 - 1.10 mg/dL [facility] Glucose 91 70 - 199 mg/dL [facility] Comment: [...] 2022. Calcium 9.5 8.5 - 10.3 mg/dL [facility] Bilirubin, total 0.2 0.1 - 1.2 mg/dL [facility] Protein, pl 5.6(L) 6.5 - 8.5 g/dL [facility] Albumin 2.8(L) 3.5 - 5.0 g/dL [facility] Alk phos 71 40 - 130 Units/L [facility] ALT 9 7 - 45 Units/L [facility] AST 16 10 - 45 Units/L [facility] Blood 05/05/2025 4:48 AM CDT 05/05/2025 5:03 AM CDT Jacqueline Jules MD LAB BLOOD ORDER WESTON Final Result [facility] Department [place] [address] * XR Chest 1 View (05/04/2025 11:16 [...] BPM [facility] Atrial Rate [address] [facility] [place]-Interval (MSEC) [address] [facility] QRS-Interval (MSEC) [address] [facility] QT-Interval (MSEC) 368 ms [facility] QTc [address] [facility] P Byers -[address] [facility] [facility] R Byers -[address] [facility] [facility] T Byers [address] [facility] [facility] Diagnosis Atrial-paced rhythm Minimal voltage criteria for LVH, may be normal variant ( Oliverio product ) Septal infarct (cited on or before 20-FEB-2025) T wave abnormality, consider lateral ischemia Abnormal ECG When compared with ECG of 22-FEB-2025 09:14, Electronic atrial pacemaker has replaced Sinus rhythm Confirmed by HARJINDER HANDY M.D ([id number]) on 05/05/2025 2:09:[address] [facility] 05/04/2025 8:59 PM CDT 05/05/2025 2:09 PM CDT Jacqueline Jules MD ECG ORDERABLES Final Result [facility] * Cardiology Document Scan (04/24/2025 3:35 PM [...] appropriate. No short V-V intervals. Presenting Rhythm ([place]) Atrial Sensing-Ventricular Sensing (-VS) --- /VS (SR) [...] andappropriate. No short V-V intervals. Presenting Rhythm ([place]) Atrial Sensing-Ventricular Sensing (-VS) --- /VS (SR) [...] CV CARDIAC SERVICES PROCEDURES Final Result * Extended/Retirement Holter Patch (>48 hours up to 7 days) (04/20/2025 1:47 PM CDT) Anatomical Region Laterality Modality Electrocardiogra phy 04/27/2025 12:4 8 PM CDT Narrative 05/10/2025 1:47 PM CDT HOLTER MONITOR Patient Name: ESTUARDO COPELAND M : 1970 (54y 5m) Gender: F Study Date: 04/27/2025 12:48:59 PM Ht(Inch): Wt(Lb): BSA: Tech: Location: [facility] Order Provider: LUCA LOTT BMI: Ref Provider: LUCA LOTT PROCEDURES: Holter Report: EXTENDED/PENITENTIARY HOLTER PATCH (>48 HOURS UP TO 7 DAYS) [[id number]]. Enrollment Period: 2025-04-27 00:00:00 through 2025-04-29 00:00:00. Location: [facility]. INDICATIONS: R00.2 Palpitations. FINDINGS: Holter Data: [...] events Runs (VT): 6 events Total beats: 90858 SIGNIFICANT PAUSES: 0 >3 sec Protocol: Recording Duration (Ordered): [id number] Recording Duration (Actual): 86866.3 SUMMARY: *The predominant rhythm was Sinus with [...] 12:48:59 PM Ht(Inch): Wt(Lb): BSA: Tech: Location: [facility] Order Provider: LUCA LOTT BMI: Ref Provider: LUCA LOTT PROCEDURES: Holter Report: EXTENDED/PENITENTIARY HOLTER PATCH (>48 HOURS UP TO 7 DAYS)[[id number]]. Enrollment Period: 2025-04-27 00:00:00 through 2025-04-29 00:00:00. Location: [facility]. INDICATIONS: R00.2 Palpitations. FINDINGS: Holter Data: [...] events Runs (VT): 6 events Total beats: 66418 SIGNIFICANT PAUSES: 0 >3 sec Protocol: Recording Duration (Ordered): [id number] Recording Duration (Actual): 87191.3 SUMMARY: *The predominant rhythm was Sinus with [...] The PDF can be found in the [facility] Patient chart. Please go to [...] 10:0 0 AM CDT Narrative [facility] - ORDER PICKER/ASSEMBLER Sample received in lab. Single Antigen Antibody [...] a method developed and validated by the [facility] HLA laboratory based on an FDA-approved IVD kit (LABScreen Single-Antigen, [employer], [place], [place]). All patient serum samples are pretreated with EDTA before the screen to prevent complement interference. Additional serum treatments, such as adsorption and DTT treatment, may be performed as indicated. Interpretive comments: Low risk: MFI [id number]. Moderate risk: MFI 8089-4451. Increased risk: MFI >/= 5000. The presence [...] antigens to avoid. Testing performed at the [facility] HLA Laboratory, [facility] [address], [address] floor, [place], [address]. IA # [id number]. Rosa Millan, Ph.D., Micro Photographer, HLA Laboratory Wilmer Prescott M.D., Ph.D., Frame Bander, HLA Laboratory Alma Payton, Ph.D., CLIA Frame Bander, [facility] Clinical Laboratories Current methodology and interpretive comments last revised on 11/15/2022. us Salina Hector MD LAB BLOOD ORDERABLES Final Resul t Performing Organization Address [facility] Co de Phone Number [facility] * HLA Antibody Screen by PRA or SAB per Schedule (Class I and Class II) (03/01/2025 10:00 AM CDT) Blood 03/01/2025 10:0 0 AM CDT Narrative [facility] - ORDER PICKER/ASSEMBLER Sample received in lab and stored. No testing performed at this time. us Salina Hector MD LAB BLOOD ORDERABLES Final Resul t Performing Organization Address [facility] de Phone Number [facility] * (ABNORMAL) eGFR [...] Montez DO LAB BLOOD ORDERABLES Final Result [facility] Department of [place] [address] * (ABNORMAL) Differential, auto (02/24/2025 9:50 AM CDT) Neutrophil abs 4.72 1.50 - 6.50 K/cumm Imm gran abs 0.02 0.00 - 0.10 K/cumm [facility] Lymphocyte abs 0.73(L) 0.80 - 3.30 K/cumm [facility] Monocyte abs 0.42 0.20 - 0.80 K/cumm [facility] Eosinophil abs 0.21 0.00 - 0.50 K/cumm [facility] Basophil abs 0.04 0.00 - 0.10 K/cumm [facility] Neutrophil pct 76.9 % [facility] Comment: Interpretive Data Percent cell count reference ranges are not reported, since discordance with absolute values may lead to misinterpretation of CBC data. Current Interpretive Data was last revised on 2018. Imm gran pct 0.3 % [facility] Comment: Interpretive Data Percent cell count reference ranges are not reported, since discordance with absolute values may lead to misinterpretation of CBC data. Current Interpretive Data was last revised on 2018. Lymphocyte pct 11.9 % [facility] Comment: Interpretive Data Percent cell count reference ranges are not reported, since discordance with absolute values may lead to misinterpretation of CBC data. Current Interpretive Data was last revised on 2018. Monocyte pct 6.8 % [facility] Comment: Interpretive Data Percent cell count reference ranges are not reported, since discordance with absolute values may lead to misinterpretation of CBC data. Current Interpretive Data was last revised on 2018. Eosinophil pct 3.4 % [facility] Comment: Interpretive Data Percent cell count reference ranges are not reported, since discordance with absolute values may lead to misinterpretation of CBC data. Current Interpretive Data was last revised on 2018. Basophil pct 0.7 % [facility] Comment: Interpretive Data Percent cell count reference ranges are not reported, since discordance with absolute values may lead to misinterpretation of CBC data. Current Interpretive Data was last revised on 2018. Blood 02/24/2025 9:50 AM CDT 02/24/2025 10:17 AM CDT Dasha Montez DO LAB BLOOD ORDERABLES Final Result [facility] [place] [address] * (ABNORMAL) CBC with auto differential (02/24/2025 9:50 AM CDT) WBC 6.14 3.80 - 9.90 K/cumm Hgb 12.5 11.9 - 15.5 g/dL [facility] Hct 39.5 35.6 - 45.5 % [facility] Plt 177 150 - 400 K/cumm [facility] MPV 10.8 9.1 - 12.3 fL [facility] RBC 4.37 3.90 - 5.20 M/cumm [facility] MCV 90.4 81.3 - 96.4 fL [facility] MCH 28.6 27.1 - 33.3 pg [facility] MCHC 31.6(L) 32.3 - 35.7 g/dL [facility] RDW CV 15.9(H) 11.1 - 14.9 % [facility] RDW SD 51.0(H) 35.7 - 48.1 fL [facility] NRBC abs 0.00 0.00 - 0.01 K/cumm [facility] Blood 02/24/2025 9:50 AM CDT 02/24/2025 10:17 AM CDT Dasha Montez LAB BLOOD ORDERABLES Final Result [facility] [place] [address] * (ABNORMAL) Basic metabolic panel (02/24/2025 9:50 AM CDT) Pathologist [facility] Sodium 136 135 - 145 mmol/L Potassium, pl 5.0(H) 3.3 - 4.9 mmol/L [facility] Chloride 93(L) 97 - 110 mmol/L [facility] CO2 27 22 - 32 mmol/L [facility] Anion gap 16(H) 2 - 15 mmol/L [facility] BUN 43(H) 6 - 25 mg/dL [facility] Creatinine 11.83(H) 0.60 - 1.10 mg/dL [facility] Glucose 82 70 - 199 mg/dL [facility] Comment: [...] 2022. Calcium 7.9(L) 8.5 - 10.3 mg/dL [facility] Blood 02/24/2025 9:50 AM CDT 02/24/2025 10:17 AM CDT Dasha Montez DO LAB BLOOD ORDERABLES Final Result Performing Organization Address City/[facility]/ZIP Co de Phone Number [facility] [place] [address] * (ABNORMAL) eGFR (02/23/2025 11:43 PM CDT) [...] Final Result Performing Organization Address City/State/ZIP Co az Phone Number [facility] [place] [address] * VerifyNow clopidogrel (02/23/2025 11:43 PM CDT) [...] ORDERABLES Fin al Result Performing Organization Address [facility] Co de Phone Number [facility] [place] [address] * (ABNORMAL) Phosphorus (02/23/2025 11:43 PM CDT) Phosphorus, pl 7.6(H) 2.3 - 4.5 mg/dL Blood 02/23/2025 11:4 3 PM CDT 02/24/2025 12:22 AM CDT Jaimie Giordano MD LAB BLOOD ORDERABLES Final Result Performing Organization Address [facility] Co de Phone Number [facility] [place] [address] * Magnesium (02/23/2025 11:43 PM CDT) Magnesium 2.4 1.4 - 2.5 mg/dL Blood 02/23/2025 11:4 3 PM CDT 02/24/2025 12:22 AM CDT Jaimie Giordano MD LAB BLOOD ORDERABLES Final Result Performing Organization Address [facility] Co de Phone Number [facility] [place] [address] * (ABNORMAL) Basic metabolic panel (02/23/2025 11:43 PM CDT) Sodium 133(L) 135 - 145 mmol/L Potassium, pl 4.9 3.3 - 4.9 mmol/L [facility] Chloride 95(L) 97 - 110 mmol/L [facility] CO2 27 22 - 32 mmol/L [facility] Anion gap 11 2 - 15 mmol/L [facility] BUN 52(H) 6 - 25 mg/dL [facility] Creatinine 11.94(H) 0.60 - 1.10 mg/dL [facility] Glucose 89 70 - 199 mg/dL [facility] Comment: [...] 2022. Calcium 8.0(L) 8.5 - 10.3 mg/dL [facility] Blood 02/23/2025 11:4 3 PM CDT 02/24/2025 12:22 AM CDT us Jaimie Giordano MD LAB BLOOD ORDERABLES Final Result [facility] [place] [address] * LEFT HEART CATHETERIZATION WITH CORONARY ANGIOGRAPHY [...] 54 y.o. female : 1970 MR number: [id number] Date of Service: 02/23/2025 Building Principal: Luca Lott MD Fellow: Sanket Quiroz MD [...] vein graft to her LAD and her osage left main. She now presents for urgent cardiac catheterization PROCEDURE: The risks, benefits and alternatives of the procedures and moderate sedation were explained to the patient and informed consent was obtained. The patient was brought to the phlebotomy lab assistant and placed on the table Bilateral groins [...] the LAD angiogram performed using a 6 [place] 3D RC Percutaneous coronary intervention performed on theSVG to the Proximal LAD. This was an ACC/AHA Type C. Initial Lesion Length 12mm and final lesion Length 20mm. Initial KAROLINA Flow 3 Final KAROLINA Flow 3. Equipment used: 6 3DRC, Curazy Granby IVUS Catheter, Broadcast Journalist 50 wire, 0.9 mm laser atherectomy catheter [...] it was extremely difficult. We used a Broadcast Journalist 50 wire with extreme difficulty wire through [...] 319(H) 123 - 168 sec POC Performer [id number] [facility] POC Device Number [id number] [facility] Blood 02/23/2025 1:41 PM CDT 02/23/2025 1:41 PM CDT Ellie Sarkar MD LAB POCT ORDERABLES - DE VICE Final Result [facility] [place] [address] * (ABNORMAL) POCT Activated clotting time, low range (02/23/2025 12:35 PM CDT) ACT 351(H) 123 - 168 sec POC Performer [id number] [facility] POC Device Number [id number] [facility] Blood 02/23/2025 12:3 5 PM CDT 02/23/2025 12:35 PM CDT us Ellie Sarkar MD LAB POCT ORDERABLES - DE VICE Final Result Performing Organization Address [facility] Co de Phone Number [facility] [place] [address] * (ABNORMAL) aPTT (02/23/2025 6:36 AM CDT) [...] BLOOD ORDERABLES Final Result Performing Organization Address [facility] Co de Phone Number [facility] [place] [address] * (ABNORMAL) eGFR (02/22/2025 11:07 PM CDT) [...] BLOOD ORDERABLES Final Result Performing Organization Address [facility] de Phone Number [facility] [place] [address] * (ABNORMAL) aPTT (02/22/2025 11:07 PM CDT) [...] ORDERABLES Fin al Result Performing Organization Address [facility] de Phone Number [facility] [place] [address] * (ABNORMAL) Phosphorus (02/22/2025 11:07 PM CDT) Phosphorus, pl 7.2(H) 2.3 - 4.5 mg/dL Blood 02/22/2025 11:0 7 PM CDT 02/22/2025 11:50 PM CDT Jaimie Giordano MD LAB BLOOD ORDERABLES Final Result Performing Organization Address [facility] de Phone Number [facility] Department [place] [address] * Magnesium (02/22/2025 11:07 PM CDT) Pathologist [facility] Magnesium 2.5 1.4 - 2.5 mg/dL Blood 02/22/2025 11:0 7 PM CDT 02/22/2025 11:50 PM CDT Jaimie Giordano MD LAB BLOOD ORDERABLES Final Result [facility] [place] [address] * (ABNORMAL) Basic metabolic panel (02/22/2025 11:07 PM CDT) [facility] Sodium 134(L) 135 - 145 mmol/L Potassium, pl 4.5 3.3 - 4.9 mmol/L [facility] Chloride 95(L) 97 - 110 mmol/L [facility] CO2 28 22 - 32 mmol/L [facility] Anion gap 11 2 - 15 mmol/L [facility] BUN 56(H) 6 - 25 mg/dL [facility] Creatinine 11.97(H) 0.60 - 1.10 mg/dL [facility] Glucose 104 70 - 199 mg/dL [facility] Comment: [...] 2022. Calcium 7.8(L) 8.5 - 10.3 mg/dL [facility] Blood 02/22/2025 11:0 7 PM CDT 02/22/2025 11:50 PM CDT Jaimie Giordano MD LAB BLOOD ORDERABLES Final Result Performing Organization Address [facility] [place] [address] * (ABNORMAL) aPTT (02/22/2025 2:25 PM CDT) Pathologist [facility] aPTT 54(H) 28 - 38 sec Comment: Interpretive Data Heparin therapeutic range: 66.0 - 100.0 seconds. Range based on correlation with therapeutic heparin activity range of 0.3 - 0.7 Units/mL. Current interpretive data was last revised on 2023. Blood 02/22/2025 2:25 PM CDT 02/22/2025 2:59 PM CDT Dasha Montez DO LAB BLOOD ORDERABLES Final Result Performing Organization Address [facility] de Phone Number [facility] [place] [address] * TRANSTHORACIC ECHO (TTE) COMPLETE W DOPPLER/CF W CONTRAST (02/22/2025 1:39 PM CDT) [facility] EF Mod BP 51 % CONS SCIMAGE Anatomical Region Laterality Modality Ultrasound 02/22/2025 12:3 8 PM CDT Narrative 02/22/2025 2:49 PM CDT [facility] Card[place] [address] Transthoracic Echocardiographic Report Patient Name: ESTUARDO COPELNAD M : 1970 (54y 3m) Gender: F Study Date: 02/22/2025 12:38:48 PM Ht(Inch): 64 Wt(Lb): 123.9 BSA: 1.59 Air Support Control Officer: Marisol Arciniega [email or web address] Location: [id number] Order Provider: SARKARAGUSTÍN COLUNGATA Heart Rate: 75 [...] flow reversal in the hepatic veins. Mild [place]. Est. PASP 40-45 mm Hg. 7. Physiologic [...] Procedure Note Rc Koehler MD - 02/22/2025 [facility] Cardiac [place] [address] Transthoracic Echocardiographic Report Patient Name: ESTUARDO COPELAND M : 1970 (54y 3m) Gender: F Study Date: 02/22/2025 12:38:48 PM Ht(Inch): 64 Wt(Lb): 123.9 BSA: 1.59 Air Support Control Officer: Marisol Arciniega RDCS [facility] Location: [id number] OrderProvider: ELLIE SARKAR Heart Rate: 75 BMI: [...] systolic flow reversal in the hepatic veins.Mild [place]. Est. PASP 40-45 mm Hg. 7. Physiologic [...] [ 2.70 - 3.70 ] MV Decel Xzax135.43 msec [ 104.00 - 258.00 ] Ao [...] 12 lead (02/22/2025 9:14 AM CDT) Pathologist [facility] Ventricular Rate EKG/Min [address] [facility] Atrial Rate [address] [facility] [place]-Interval (MSEC) [address] [facility] QRS-Interval (MSEC) [address] [facility] QT-Interval (MSEC) [address] [facility] QTc [address] [facility] P Byers [address] [facility] R Byers -[address] [facility] T Byers [address] [facility] Diagnosis Sinus rhythm with sinus arrhythmia with short [place] Left axis deviation Left ventricular hypertrophy ( Romhilt-Pierce ) Cannot rule out Septal infarct (cited on 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-FEB-2025) ST & T wave abnormality, consider lateral ischemia Abnormal ECG When compared with ECG of 22-FEB-2025 01:51, (unconfirmed) Sinus rhythm has replaced Atrial fibrillation Confirmed by HARJINDER HANDY M.D ([id number]) on 03/05/2025 11:42:[address] [facility] 02/22/2025 9:14 AM CDT 03/05/2025 11:42 AM CDT us Jaimie Giordano MD ECG ORDERABLES Victoria becerra Result [facility] * (ABNORMAL) Troponin I high-sensitivity 4-hour (02/22/2025 6:24 AM CDT) Pathologist [facility] Trop I hs 1,868(C) <=17 ng/L Comment: Previous critical value noted within 48 hours ago. Interpretive Data For further hscTnI resources including the diagnostic algorithm and an aid in interpretation, copy and paste this link: [email or web address]/show/[email or web address] Current Interpretive Data last revised 2020. Trop I hs pct delta -19(C) % [facility] Comment:Previous critical va lue noted within 48 hours ago. Trop I hs interp Significa nt(C) [facility] Comment:Previous critical va lue noted within 48 hours ago. Blood 02/22/2025 6:24 AM CDT 02/22/2025 6:48 AM CDT Milton Rubio MD LAB BLOOD ORDERABLES Final Resul t Performing Organization Address [facility] de Phone Number [facility] [place] [address] * (ABNORMAL) Troponin I high-sensitivity 2-hour (02/22/2025 4:51 AM CDT) Trop I hs 2,146(C) <=17 ng/L Comment: Previous critical value noted within 48 hours ago. Interpretive Data For further hscTnI resources including the diagnostic algorithm and an aid in interpretation, copy and paste this link: https://bjhlab.testcatalog.org/show/[email or web address] Current Interpretive Data last revised 2020. Trop I hs pct delta -7 % [facility] Trop I hs interp Equivocal [facility] Blood 02/22/2025 4:51 AM CDT 02/22/2025 5:26 AM CDT Milton Rubio MD LAB BLOOD ORDERABLES Final Resul t Performing Organization Address [facility] de Phone Number [facility] [place] [address] * (ABNORMAL) aPTT (02/22/2025 4:51 AM CDT) [...] ORDERABLES Final Resul t Performing Organization Address [facility] Co de Phone Number [facility] [place] [address] * Infection Prevention Anthony auris PCR, surveillance Axilla/Groin (02/22/2025 2:05 AM CDT) Anthony auris DNA Not Detected Not Detected [facility] Comment: Interpretive Data Testing performed by [facility] Molecular Infectious Disease Laboratory using the Pablo estelle 6800 Anthony auris assay. This assay detects DNA from Anthony auris using Real-Time PCR. This assay is laboratory developed and is not cleared by the [facility] Food and Drug Administration. The performance characteristics have been verified by the [facility] Molecular Infectious Disease Laboratory. Axilla/Groin 02/22/2025 2:05 AM CDT 02/22/2025 3:14 AM CDT Narrative [facility] - 02/22/2025 2:38 PM CDT Order placed by [facility] due to ring surveillance. us Instant Order Generic Provider LAB MICROBIOLOGY - GENERAL ORDERABLES Final Result Performing Organization Address [facility] de Phone Number [facility] [place] [address] [facility] * (ABNORMAL) Troponin I high-sensitivity series [...] t Performing Organization Address City/[facility] de Phone Number [facility] [place] [address] * (ABNORMAL) eGFR (02/22/2025 2:05 AM CDT) [...] ORDERABLES Final Resul t Performing Organization Address [facility] de Phone Number [facility] [place] [address] * Magnesium (02/22/2025 2:05 AM CDT) Magnesium 2.5 1.4 - 2.5 mg/dL Blood 02/22/2025 2:05 AM CDT 02/22/2025 2:58 AM CDT us Milton Rubio MD LAB BLOOD ORDERABLES Final Resul t Performing Organization Address [facility] de Phone Number [facility] [place] [address] * (ABNORMAL) Comprehensive metabolic panel (02/22/2025 2:05 AM CDT) Sodium 138 135 - 145 mmol/L Potassium, pl 4.3 3.3 - 4.9 mmol/L [facility] Chloride 95(L) 97 - 110 mmol/L [facility] CO2 26 22 - 32 mmol/L [facility] Anion gap 17(H) 2 - 15 mmol/L [facility] BUN 55(H) 6 - 25 mg/dL [facility] Creatinine 12.63(H) 0.60 - 1.10 mg/dL [facility] Glucose 99 70 - 199 mg/dL [facility] Comment: [...] 2022. Calcium 8.1(L) 8.5 - 10.3 mg/dL [facility] Bilirubin, total 0.2 0.1 - 1.2 mg/dL [facility] Protein, pl 6.0(L) 6.5 - 8.5 g/dL [facility] Albumin 2.6(L) 3.5 - 5.0 g/dL [facility] Alk phos 59 40 - 130 Units/L [facility] ALT 14 7 - 45 Units/L [facility] AST 20 10 - 45 Units/L [facility] Blood 02/22/2025 2:05 AM CDT 02/22/2025 2:58 AM CDT us Milton Rubio MD LAB BLOOD ORDERABLES Final Resul t [facility] DOM[facility] [place] [address] * ECG 12 lead (02/22/2025 1:45 AM CDT) Ventricular Rate EKG/Min [address] [facility] QRS-Interval (MSEC) [address] [facility] QT-Interval (MSEC) [address] [facility] QTc [address] [facility] R Byers -[address] [facility] T Byers [address] [facility] Diagnosis Age and gender specific ECG analysis Sinus tachycardia Anteroseptal ST-elevation Poor R-wave progression in the precordial leads Left axis deviation Minimal voltage criteria for LVH, may be normal variant ( [place] product ) Anteroseptal infarct , possibly acute T wave abnormality, consider lateral ischemia Abnormal ECG No previous ECGs available Confirmed by HARJINDER HANDY M.D ([id number]) on 02/23/2025 3:10:[address] [facility] 02/22/2025 1:45 AM CDT 02/23/2025 3:10 PM CDT us Jaimie Giordano MD ECG ORDERABLES Victoria l Result [facility] * (ABNORMAL) eGFR (02/21/2025 8:31 PM CDT) Pathologist [facility] eGFR 3(L) >=60 mL/min/1. 73 m2 Comment: [...] BLOOD ORDERABLES Final Result Performing Organization Address [facility] Co de Phone Number [facility] [place] [address] * Critical Result Callback Chemistry (02/21/2025 8:31 PM CDT) Date Notified [id number] Time Notified 2153 [facility] TestName Calcium [facility] DOMINGUEZ Called/Read Back Jose DOMINGUEZ Credentials RN [facility] DOMINGUEZ Called By PD B[facility]ES [facility] Blood 02/21/2025 8:31 PM CDT 02/21/2025 9:23 PM CDT us Jaimie Giordano MD LAB BLOOD ORDERABLES Final Result Performing Organization Address [facility] Co de Phone Number [facility] [place] [address] * Critical Result Callback Chemistry (02/21/2025 8:31 PM CDT) Date Notified [id number] Time Notified 2128 [facility] TestName Ca Ionized CAMREON DOMINGUEZ Called/Read Back Parminder DOMINGUEZ Credentials RN [facility] DOMINGUEZ Called By PD [facility] O[facility] Blood 02/21/2025 8:31 PM CDT 02/21/2025 9:00 PM CDT Ellie Sarkar MD LAB BLOOD ORDERABLES Fin al Result Performing Organization Address City/[facility]/ZIP Co de Phone Number [facility] [place] [address] * (ABNORMAL) Calcium, ionized (02/21/2025 8:31 PM CDT) Calcium, Ionized 3.17(C) 4.50 - 5.10 mg/dL Blood 02/21/2025 8:31 PM CDT 02/21/2025 9:00 PM CDT Ellie Sarkar MD LAB BLOOD ORDERABLES Fin al Result Performing Organization Address [facility] de Phone Number [facility] [place] [address] * (ABNORMAL) aPTT (02/21/2025 8:31 PM CDT) aPTT 52(H) 28 - 38 sec Comment: Interpretive Data Heparin therapeutic range: 66.0 - 100.0 seconds. Range based on correlation with therapeutic heparin activity range of 0.3 - 0.7 Units/mL. Current interpretive data was last revised on 2023. Blood 02/21/2025 8:31 PM CDT 02/21/2025 9:05 PM CDT Narrative [facility] - 02/21/2025 9:15 PM CDT STAT [...] ORDERABL ES Final Result Performing Organization Address City/[facility]/ZIP Co de Phone Number [facility] [place] [address] * (ABNORMAL) Phosphorus (02/21/2025 8:31 PM CDT) Pathologist [facility] Phosphorus, pl 8.4(H) 2.3 - 4.5 mg/dL Blood 02/21/2025 8:31 PM CDT 02/21/2025 9:00 PM CDT Jaimie Giordano MD LAB BLOOD ORDERABLES Final Result Performing Organization Address [facility] Co de Phone Number [facility] [place] [address] * Magnesium (02/21/2025 8:31 PM CDT) [facility] Magnesium 2.4 1.4 - 2.5 mg/dL Blood 02/21/2025 8:31 PM CDT 02/21/2025 9:00 PM CDT Jaimie Giordano MD LAB BLOOD ORDERABLES Final Result Performing Organization Address City/[facility] Co de Phone Number [facility] [place] [address] * (ABNORMAL) Basic metabolic panel (02/21/2025 8:31 PM CDT) [facility] Sodium 139 135 - 145 mmol/L Potassium, pl 4.6 3.3 - 4.9 mmol/L [facility] Chloride 94(L) 97 - 110 mmol/L [facility] CO2 27 22 - 32 mmol/L [facility] Anion gap 18(H) 2 - 15 mmol/L [facility] BUN 53(H) 6 - 25 mg/dL [facility] Creatinine 12.82(H) 0.60 - 1.10 mg/dL [facility] Glucose 82 70 - 199 mg/dL [facility] Comment: [...] 2022. Calcium 6.4(C) 8.5 - 10.3 mg/dL [facility] Blood 02/21/2025 8:31 PM CDT 02/21/2025 9:00 PM CDT us Jaimie Giordano MD LAB BLOOD ORDERABLES Final Result Performing Organization Address City/[facility] Co de Phone Number [facility] [place] [address] * (ABNORMAL) aPTT (02/21/2025 11:39 AM CDT) [...] t Performing Organization Address City/[facility]/ZIP Co de Phone Number [facility] [place] [address] * (ABNORMAL) Troponin I high-sensitivity (02/21/2025 8:42 AM CDT) Trop I hs 2,752(C) <=17 ng/L Comment: Previous critical value noted within 48 hours ago. Interpretive Data For further hscTnI resources including the diagnostic algorithm and an aid in interpretation, copy and paste this link: [email or web address] Current Interpretive Data last revised 2020. Blood 02/21/2025 8:42 AM CDT 02/21/2025 9:24 AM CDT Ellie Sarkar MD LAB BLOOD ORDERABLES Fin al Result Performing Organization Address City/[facility]/ZIP Co de Phone Number [facility] [place] [address] * Thyroid Function [place] (02/21/2025 8:42 AM CDT) Pathologist [facility] TSH 1.88 0.30 - 4.20 mcIUnit/mL Blood 02/21/2025 8:42 AM CDT 02/21/2025 9:24 AM CDT Result [facility] Ellie Sarkar MD LAB BLOOD ORDERABLES Fin al Result Performing Organization Address City/[facility] Co de Phone Number [facility] [place] [address] * (ABNORMAL) Troponin I high-sensitivity 6-hour (02/21/2025 4:51 AM CDT) Trop I hs 3,175(C) <=17 ng/L Comment: Previous critical value noted within 48 hours ago. Interpretive Data For further hscTnI resources including the diagnostic algorithm and an aid in interpretation, copy and paste this link: [email or web address] Current Interpretive Data last revised 2020. Trop I hs pct delta -25(C) % [facility] Comment:Previous critical va lue noted within 48 hours ago. Trop I hs interp Significa nt(C) [facility] Comment:Previous critical va lue noted within 48 hours ago. Blood 02/21/2025 4:51 AM CDT 02/21/2025 5:32 AM CDT Jaimie Giordano MD LAB BLOOD ORDERABLES Final Result Performing Organization Address [facility] de Phone Number [facility] [place] [address] * (ABNORMAL) aPTT (02/21/2025 4:51 AM CDT) [...] ORDERABLES Final Resul t Performing Organization Address [facility] [place] [address] * (ABNORMAL) Troponin I high-sensitivity 4-hour (02/21/2025 2:18 AM CDT) Trop I hs 2,937(C) <=17 ng/L Comment: Previous critical value noted within 48 hours ago. Interpretive Data For further hscTnI resources including the diagnostic algorithm and an aid in interpretation, copy and paste this link: [email or web address]/show/[email or web address] Current Interpretive Data last revised 2020. Trop I hs pct delta -31(C) % [facility] Comment:Previous critical va lue noted within 48 hours ago. Trop I hs interp Significa nt(C) [facility] Comment:Previous critical va lue noted within 48 hours ago. Blood 02/21/2025 2:18 AM CDT 02/21/2025 2:49 AM CDT Jaimie Giordano MD LAB BLOOD ORDERABLES Final Result Performing Organization Address City/[facility]/ZIP Co de Phone Number [facility] [place] [address] * Hepatitis C antibody Blood (01/28/2025 9:42 AM CDT) Hep C Ab Nonreactive Nonreactive Comment:Antibodies to HCV no t detected. Does NOT exclude the possibility of recent exposure to HCV. Current interpretive data was last revised on 22 Blood 01/28/2025 9:42 AM CDT 01/28/2025 10:56 AM CDT Tamar Tang MD LAB MICROBIOLOGY - GENERAL ORD ERABLES Final Result Performing Organization Address [facility] Co de Phone Number [facility] [place] [address] from Last 3 Months or Most Recently Relevant to Health Maintenance Insurance [facility] CHOICE PLUS MEDICARE [facility] CHOICE PLUS [facility] CHOICE PLUS MEDICARE MEDICARE [facility] CHOICE PLUS MEDICARE [employer] Advance Directives For more information, please contact: [phone] * Full Code (Latest Code Status on [...] 10:59 AM 12/28/2024 9:10 AM Care Teams Hat Marker Relationship Specialty Start Date End Date Pal Downey DO PCP - General Internal Medicine 01/25/21 Quinton Rowan MD Referring Physician Cardiology 01/09/19 Tami Flores, RN [address] [address] Registered Nurse Buyer Grain 01/25/21 Cricket Escalante MD [address] [address] Referring Physician Nephrology 03/24/21 Gael Sprague MD PhD [address] [address] Fellow Endocrinology Diabetes & Metabolism 03/24/21 Brad Turner MD [address] [address] Consulting Physician Obstetrics and Gynecology 03/24/21 Margarita Montoya MD [address] [address] Consulting Physician Trauma Surgery 12/27/21 Luca Lott MD [address] [address] Consulting Physician Cardiology 08/03/22 Pb Galloway MD [address] [address] Cardiothoracic Surgery 05/25/24 Felipe Gerber MD [address] [address] Consulting Physician Cardiology 05/25/24
--- OUTSIDE RECORDS SUMMARY | 2025-05-24 19:07 | XMS_ITS | Clinical Summary ---
Author Organization [facility] Address [facility] [place] [address] Care Team Providers Care Operating Theatre Technician Name Role Phone Unavailable Primary Care Provider [...]
--- OUTSIDE RECORDS SUMMARY | 2025-05-24 19:08 | XMS_ITS | Referral Summary ---
Author Organization [facility] Address [address] [place] [address] Care Team Providers Care 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 Name Role Phone Quinton Rowan MD Unavailable [phone] Pal Downey DO Primary Care Provider [phone] Tami Flores RN Unavailable [phone] Cricket Escalante MD Unavailable Gael Sprague MD PhD Unavailable Brad Turner MD Unavailable [phone] Margarita Montoya MD Unavailable Luca Lott MD Unavailable Pb Galloway MD Unavailable Felipe Gerber MD Unavailable [phone] Encounters Date Type Department Care Team Description 05/19/2025 SHOP/CHAP Subsequent Outreach [facility] [address] [place] [phone] Claire Rosales LCSW 05/13/2025 SHOP/CHAP Subsequent Outreach [facility] [address] [place] [id number] Claire Rosales LCSW 05/12/2025 Telephone [facility] Cardiology [facility] Advanced Medicine 8th [place] [address] [place] [address] Luca Lott MD 05/12/2025 Telephone [facility] Cardiology [address] [facility] Medical Office Building 3 [address] [place] [address] Luca Lott MD [facility] 05/12/2025 Telephone [facility] Heart [facility] Vascular [place] [address] [place] [address] Reagan Vences MD 05/11/2025 12:55 PM CDT - 05/11/2025 2:25 PM CDT Surgery [facility] [place] [address] [place] [address] Luca Lott MD LEFT HEART CATHETERIZATION WITH CORONARY ANGIOGRAPHY AND WITH OR WITHOUT LEFT VENTRICULOGRAM [id number] 05/11/2025 11:13 AM CDT - 05/11/2025 7:34 PM CDT Hospital [facility] Heart [facility] V[facility] [place] [address] [place] [address] Luca Lott MD Chronic heart failure with preserved ejection fraction (HCC) [I50.32] (Primary Dx); Coronary artery disease involving [place] coronary artery of [place] heart without angina pectoris Discharge Disposition: Discharge to home or self care 05/10/2025 SHOP/CHAP Initial Outreach [facility] 1 [place] [address] Claire Rosales LCSW 05/10/2025 SHOP/CHAP Initial Eligibility Review [facility] [address] [place] [address] Claire Rosales LCSW 05/07/2025 Telephone [facility] Cardiology [facility] Advanced Medicine 8th [place] [address] [place] [address] Luca Lott MD 05/04/2025 7:27 PM CDT - 05/07/2025 5:52 PM CDT Hospital Encounter [facility] 1 [place] [address] Kalen Villegas MD PhD Jorge A, MD Tirso Mejia, Ashley Farnsworth MD Discharge Disposition: Discharge to home or self care 05/04/2025 Telephone [facility] Bed Planning 1 [place] [address] Wiley Pulliam, doll surgeon Notification 04/29/2025 Orders Only [facility] Cardiology [address] [place] [address] Building [address] [place] [address] Lane Ramos MD PhD S/P placement of cardiac pacemaker; Sick sinus syndrome (HCC) 04/28/2025 Telephone [facility] Cardiology [facility] Advanced Medicine 8th [place] [address] [place] [address] Lane Ramos MD PhD 04/27/2025 Orders Only [facility] Cardiology [address] [place] [address] Eduin Springer MD 04/26/2025 Telephone [facility] Cardiology [address] [facility] Advanced Medicine 8th [place] [address] [place] [address] Luca Lott MD 04/23/2025 Orders Only [address] Building [address] [place] [address] Lane Ramos MD PhD 04/20/2025 10:00 AM CDT - 04/20/2025 11:59 PM CDT Hospital Encounter [address] [address] ESRD (end stage renal disease) (HCC) Discharge Disposition: Discharge to home or self care 04/20/2025 2:00 PM CDT Ancillary Procedure [facility] [address] [place] [address] 3 [address] [place] [address] Palpitations 04/20/2025 Orders Only [facility] Cardiology [address] [facility] Medical Office Building [address] [place] [address] Luca Lott MD Palpitations (Primary Dx) 04/07/2025 Telephone [facility] and [facility] Transplant Kidney [address] Mailstop [phone] [place] [address] Tiarra Mcdermott 04/07/2025 Telephone [facility] Transplant Kidney [address] Mailstop [phone] [place] [address] Tami Flores, TONO 04/07/2025 11:30 AM CDT Office Visit [facility] Cardiology [address] [facility] Medical Office Building [address] [place] [address] Luca Lott MD Nonrheumatic aortic valve stenosis (Primary Dx); Coronary artery disease involving [place] coronary artery of [place] heart without angina pectoris 03/27/2025 Orders Only [facility] Cardiology [address] [facility] 8th [place] [address] [place] [address] Claire Mcnally, TONO 03/25/2025 10:00 AM CDT - 03/25/2025 11:59 PM CDT Hospital Encounter [address] [address] ESRD (end stage renal disease) (HCC) Discharge Disposition: Discharge to home or self care 03/02/2025 SHOP/CHAP Initial Outreach [facility]GEMENT 1 [place] [address] Claire Rosales LCSW 03/01/2025 10:00 AM CDT - 03/01/2025 11:59 PM CDT Hospital Encounter [address] [address] ESRD (end stage renal disease) (HCC) Discharge Disposition: Discharge to home or self care 02/26/2025 SHOP/CHAP Initial Outreach [facility]NAGEMENT 1 [place] [address] BobbyClairey, WIND TURBINE MECHANIC 02/25/2025 SHOP/CHAP Initial Outreach [facility] CASE [facility]NAGEMENT 1 [place] [address] Claire Rosalesy, WIND TURBINE MECHANIC 02/25/2025 SHOP/CHAP Initial Eligibility Review [facility]EMENT [address] [place] [address] BobbyClaire Christine, [facility] 02/20/2025 8:07 PM CDT - 02/24/2025 3:54 PM CDT Hospital Encounter [facility] 1 [place] [address] Elvin Giordano, MD Dany Nails Namrata Nikhil, MD Acute coronary syndrome (HCC) (Primary Dx); Chest pain [R07.9]; Coronary artery disease involving [place] coronary artery of [place] heart without angina pectoris [I25.10] Discharge Disposition: Discharge to home or self care 02/23/2025 11:33 AM CDT - 02/23/2025 12:53 PM CDT Surgery [facility] [address] [place] [address] Luca Lott MD LEFT HEART CATHETERIZATION WITH CORONARY ANGIOGRAPHY AND WITH OR WITHOUT LEFT VENTRICULOGRAM [id number] from Last 3 Months Allergies Active Allergy [...] no reactions Penicillins Anaphylaxis,Rash,Un known High 04/29/2015 Moupkmh-Kav-Qtu Reductase Inhibitors Muscle pain Medium 02/20/2025 Trialed [...] chronic hypotension - 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 [facility] admit 04/22-04/24 for afib with work up TSH wnl, hyperkalemic, troponins flat. Reports palpitations stopped last week. Planned direct admission for amiodarone loading, however, patient is no longer wanting to complete this (patient has appropriate concerns about joint terminal attack controller side effects of Amio, particularly with her thyroid disease) - Home apixaban BID on hold until after LH - EP consulted -> recommended device interrogation, completed with known A.fib - Telemetry monitoring Assessment & Plan (05/06/2025 12:38 PM CDT): AT/AF burden 0.8% per device transmission. [facility] admit 04/22-04/24 for afib with work up TSH wnl, hyperkalemic, troponins flat. Reports palpitations stopped last week. Planned direct admission for amiodarone loading, however, patient is no longer wanting to complete this (patient has appropriate concerns about custodial side effects of Amio, particularly with her thyroid disease) - Continue home apixaban BID - EP consulted -> recommended device interrogation (completed) and TTE - Telemetry monitoring Assessment & Plan (05/05/2025 5:31 PM CDT): AT/AF burden 0.8% per device transmission. [facility] admit 04/22-04/24 for afib with [...] CDT): AT/AF burden 0.8% per device transmission. [facility] admit 04/22-04/24 for afib with [...] (02/01/2022): Added automatically from request for surgery [id number] Assessment & Plan (02/05/2025 3:15 PM CDT): Undergoing pre transplant evaluation. We will review with Dr. Lott regarding possible candidacy for transplant list given recent interventions. Continued to DAPT Disorder of peritoneal dialysis catheter 022 Overview (12/22/2021): Added automatically from request for surgery [id number] Chronic kidney disease, stage V 10/31/2021 Overview (08/21/2023): Added automatically from request for surgery [id number] Sick sinus syndrome 11/02/2020 Assessment & Plan [...] (02/09/2019): Added automatically from request for surgery [id number] Assessment & Plan (05/17/2019 9:19 AM CDT): [...] (02/10/2019): Added automatically from request for surgery [id number] Assessment & Plan (05/07/2025 3:38 PM CDT): [...] changes - Dr. Lott plans on completing [facility] next week and she will discharge home today with outpatient [facility] Assessment & Plan (05/06/2025 12:38 PM CDT): [...] & apixaban --> will discuss with Dr. 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 Escalante Continue lasix 40 mg [...] kidney disease, baseline Cr 2.4-2.6. F/b OSH truck body builder. Apparently discussions for potential need for renal txp being discussed. - Cr at baseline on adm - avoid nephrotoxins, renally dose meds - continue calcitriol 0.5 mcg/day - Cr 2.75, received pre-cath hydration, stable 2.7 Headache 05/02/2016 Moderate COPD (chronic obstr uctive pulmonary disease) ([facility]) 11/02/2015 Assessment & Plan (05/07/2025 3:38 PM [...] AM CDT): Alexis TAVR 05/21 Followed by [facility], Dr. Lott. CT [...] not a candidate for intervention [facility] Assessment & Plan (05/17/2019 9:28 [...] AV. Referred to valve team by primary paster operator Dr. Rowan. Seen 02/02 by valve [...] around 2.4 Dr Escalante is her home truck body builder Assessment & Plan (02/23/2019 12:20 PM CDT): Pt above POW by 2 kg. Lasix on hold due to elevation in Creatinine Baseline creat is around 2.4 Dr Escalante is her home truck body builder Agitation requiring sedation protocol 02/14/2019 02/23/2019 Acute [...] she had reactions to (?). Per OSH truck body builder's note in Care Everywhere, pt tried metoprolol [...] = 0.6 oz pur e alcohol) occasional [facility] Utilities Answer Date Recorded In the past 12 months has [employer], [employer], or [facility] threatened to shut off services in your home? Patient declined 05/10/2025 Social Connection and Isolation Panel [NHANES] A nswer Date Recorded In a typical week, how many times do you talk on the phone with family, friends, or neighbors? Patient declined 05/10/2025 How often do you get togethe r with friends or relatives? Patient declined 05/10/2025 How often do you attend yazidism or voodoo serv ices? Patient declined 05/10/2025 Do you belong to any clubs o r organizations such as yazidism groups, unions, fraternal or athletic groups, or [...] any time in the past 12 m [facility], were you homeless or living in a jail (including now)? Patient declined 05/10/2025 Personal Safety Answer Date Recorded Have you ever been in or are you currently in a harmful physical or emotional relationship or is someone making you feel afraid or unsafe? Denies 05/11/2025 Comments No Sex and Gender Information Value Date Recorded Sex Assigned at Not on file Legal Sex Female 4:06 AM AIRFRAME AND POWERPLANT TECHNICIAN Gender Identity Female 01/16/2024 11:18 AM CDT [...] Scheduled Procedures Name Priority Associated Diagnoses Date/Ti ak TRANSPLANT KIDNEY ESRD (end stage renal disease) (HCC) Medical Devices Implanted Type Area Conveyor Console Operator Device Identifier Shelf Expiration Date Model / Serial / Lot Angio-Seal Evolution 6fr Vascular Closure [id number] - [id number] - [id number] Implanted:Qty: 1 on 03/09/2022 by Luca Lott MD at [facility] Collagen Right: Femoral Ter[employer]o [employer] Pam 09/19/2022 [id number] / [id number] / [id number] Ter[employer] Pam Angio-Seal Vip 6fr Closere Device [id number] - [id number] - [id number] Implanted:Qty: 1 on 07/24/2022 by Luca Lott MD at [facility] Collagen [employer] Pam 03/20/2023 [id number] / [id number] / [id number] [employer] Pam Angio-Seal Vip 6fr Closere Device 426662 - [id number] - [id number] Implanted:Qty: 1 on 05/21/2024 at [facility] Collagen Right: Common Femoral Artery [employer] Pam 01/09/2025 127565 / [id number] / [id number] Ter[employer]o [employer] Pam Angio-Seal Vip Bondek-Plus 8fr .038in 70cm Hemostatic Latex Free 779638 - [id number] - [id number] Implanted:Qty: 1 on 05/21/2024 by Felipe Gerber MD at [facility] Collagen Right: Common Femoral Artery [employer] Pam 01/06/2025 697318 / [id number] / [id number] [employer] Pam Angio-Seal Vip 6fr Closere Device [id number] - [id number] - [id number] Implanted:Qty: 1 on 02/23/2025 by Luca Lott MD at [facility] Collagen [employer] Pam 06/15/2025 982193 / [id number] / [id number] Medtronic Cardiac Rhythm Mgmt 5076-52 Capsurefix Novus 6.2fr 2mm 52cm Bipolar Screw In Implantable Latex Free - [id number] - [id number] Implanted:Qty: 1 on 05/15/[address] Ramos MD PhD at [facility] Lead Medtronic Inc 03/11/2021 5076-52 / [id number] / Medtronic Cardiac Rhythm Mgmt 5076-45 Capsurefix Novus 6.2fr 2mm 45cm Bipolar Screw In Implantable - [id number] - [id number] Implanted:Qty: 1 on 05/15/[address] Ramos MD PhD at [facility] Lead Medtronic Inc 03/30/2021 5076-45 / [id number] / [employer] [facility] 5018-04-5052-01 Linear 7.5fr 6in Insertion Kit Rib Builder Introducer Sheath - [id number] Implanted:Qty: 1 on 02/10/2019 by Luca Lott MD at [facility] Other - see comments Otonomy 0684-00 -0480-0 / / Description:IABP Medtronic Inc [id number] Vancleave Curl Cath Beta-Cap Holden 15fr 57cm 2 Cuff Clamp Adapter - S0 - [id number] Implanted:Qty: 1 on 11/21/2021 by Carlos Kamara MD at [facility] Other - see comments N/A: Abdomen Medtronic Inc 11/30/2022 8811-31 3015 / 0 / [id number] Medtronic Cardiac Rhythm Mgmt W1dr01 Tereza Wirelessly Pacemaker Cardiac - [id number] - [id number] Implanted:Qty: 1 on 05/15/[address] Ramos MD PhD at [facility] Pacemaker Medtronic Inc [id number] 09/17/2020 W1DR01 / [id number] / Jamil Lifesciences Valve Aortic Trnscath Brown 3 Ultra Resilia 20mm 2628hmo83j - [id number] - [id number] Implanted:Qty: 1 on 05/21/2024 by Felipe Gerber MD at [facility] Prosthetic Valve N/A: Aortic Valve Jamil [employer]iences 02/27/2027 [id number] 20A / [id number] / Medtronic Inc Resolute [place] 4mm 2.1-2.7fr 12mm 140cm Rapid Exchange Radiopaque [id number] - [id number] - [id number] Implanted:Qty: 1 on 03/09/2022 by Luca Lott MD at [facility] Stent Left: Coronary Medtronic Inc 12/06/2022 RONYX40 012UX / [id number] / [id number] Description:LAD Biotronik Inc Stent Coronary De Rx Cocr Ors Msn 4.0x15mm 177792 - [id number] - [id number] Implanted:Qty: 1 on 07/24/2022 by Luca Lott MD at [facility] Stent Biotronik Inc 09/05/2023 283828 / [id number] / [id number] Medtronic Card Vasc Surgery 4.0 X 15mm Clive King Rx Coronary Stent Penkci98473rl - [id number] - [id number] Implanted:Qty: 1 on 11/19/2024 by Luca Lott MD at [facility] Stent N/A: Saphenous Vein Graft Medtronic Card Vasc Surgery 05/05/2027 ONYXNG4 0015UX / [id number] / [id number] Medtronic Card Vasc Surgery 2.50 X 12mm Clive King Rx Coronary Stent Nzumiv20823re - [id number] - [id number] Implanted:Qty: 1 on 12/25/2024 by Luca Lott MD at [facility] Stent Medtronic Card Vasc Surgery 06/03/2027 ONYXNG2 [id number] / [id number] / [id number] [employer] Pam Synergy Xd Mon[place]ail 3mm 20mm 144cm Delivery System 1 Access Port [id number] - [id number] - [id number] Implanted:Qty: 1 on 02/23/2025 by Luca Lott MD at [facility] Stent [employer] Pam 06/08/2026 [id number] / [id number] / [id number] Painter Vascular System Closure Repair Femoral Artery Suture Mediated Perclose Prostyle 40593-26 - [id number] - [id number] Implanted:Qty: 1 on 05/21/2024 by Felipe Gerber MD at [facility] Vascular Closure Device Left: Common Femoral Artery Painter Vascular 02/17/2026 52129-6 3 / [id number] / [id number] Ter[employer] Pam Angio-Seal Vip 6fr Closere Device 639855 - [id number] - [id number] Implanted:Qty: 1 on 11/19/2024 by Luca Lott MD at [facility] Vascular Closure Device N/A: Saphenous Vein Graft [employer] Pam 04/29/2025 898436 / [id number] / [id number] Terumo Medical Pam Angio-Seal Vip 6fr Closere Device 460504 - [id number] - [id number] Implanted:Qty: 1 on 12/25/2024 by Sanket Quiroz MD at [facility] Vascular Closure Device Right: Common Femoral Artery [employer] Pam 06/30/2025 524211 / [id number] / [id number] Description:RFA [employer] Pam Angio-Seal Vip Bondek-Plus 8fr .038in 70cm Hemostatic Latex Free 361504 - [id number] - [id number] Implanted:Qty: 1 on 12/25/2024 by Sanket Quiroz MD at [facility] Vascular Closure Device Right: Femoral Vein [employer] Pam 07/21/2025 777343 / [id number] / [id number] Description:RFV [employer] Pam Angio-Seal Vip 6fr Closere Device 501079 - [id number] - [id number] Implanted:Qty: 1 on 05/11/2025 by Rio Jacobs MD at [facility] Vascular Closure Device Right: Common Femoral Artery [employer] Medical Pam 12/31/2025 093356 / [id number] / [id number] [employer] Pam [id number] Supple Ronna-Guard Shell [employer] Processing 4x4cm Patch Cardiovascular - [id number] - [id number] Implanted:Qty: 1 on 02/11/2019 by Christopher Holman MD at [facility] N/A: Chest [employer] Pam 06/03/2023 [id number] / 3211-04 04-0010 / [id number] Jamil Lif[employer]iences [id number] Certitude Brown 3 Atrion 18fr Transcatheter Introducer Crimper - [id number] - [id number] Implanted:Qty: 1 on 02/11/2019 by Christopher Holman MD at [facility] N/A: Heart Jamil [employer]iences [id number] / [id number] / Medtronic Inc 8811-137750 Vancleave Curl Cath Beta-Cap Hodlen 15fr 57cm 2 Cuff Clamp Adapter - [id number] Implanted:Qty: 1 on 12/27/2021 by Margarita Montoya MD at [facility] N/A: Abdomen Medtronic Inc 10/14/2023 8811-31 3015 [...] 4:14 PM CDT Coronary artery disease involving [place] coronary artery of [place] heart without angina pectoris POCT ACTIVATED CLOTTING [...] - REMOTE Routine 04/23/2025 12:51 AM CDT EXTENDED/SHELTER HOLTER PATCH (>48 HOURS UP TO 7 [...] LAB BLOOD ORDERABLES Final R esult [facility] Department [place] [address] * Differential, auto (05/11/2025 6:30 PM CDT) Neutrophil abs 4.30 1.50 - 6.50 K/cumm Comment:Collection date/time has been modified to: 18:30:00. Previous collection date/time: 17:32:00. Imm gran abs 0.02 0.00 - 0.10 K/cumm [facility] Comment:Collection date/time has been modified to: 18:30:00. Previous collection date/time: 17:32:00. Lymphocyte abs 0.83 0.80 - 3.30 K/cumm [facility] Comment:Collection date/time has been modified to: 18:30:00. Previous collection date/time: 17:32:00. Monocyte abs 0.28 0.20 - 0.80 K/cumm [facility] Comment:Collection date/time has been modified to: 18:30:00. Previous collection date/time: 17:32:00. Eosinophil abs 0.19 0.00 - 0.50 K/cumm [facility] Comment:Collection date/time has been modified to: 18:30:00. Previous collection date/time: 17:32:00. Basophil abs 0.02 0.00 - 0.10 K/cumm [facility] Comment:Collection date/time has been modified to: [...] 2018. Imm gran pct 0.4 % [facility] Comment: Collection date/time has been modified to: 18:30:00. Previous collection date/time: 17:32:00. Interpretive Data Percent cell count reference ranges are not reported, since discordance with absolute values may lead to misinterpretation of CBC data. Current Interpretive Data was last revised on 2018. Lymphocyte pct 14.7 % [facility] Comment: Collection date/time has been modified to: 18:30:00. Previous collection date/time: 17:32:00. Interpretive Data Percent cell count reference ranges are not reported, since discordance with absolute values may lead to misinterpretation of CBC data. Current Interpretive Data was last revised on 2018. Monocyte pct 5.0 % [facility] Comment: Collection date/time has been modified to: 18:30:00. Previous collection date/time: 17:32:00. Interpretive Data Percent cell count reference ranges are not reported, since discordance with absolute values may lead to misinterpretation of CBC data. Current Interpretive Data was last revised on 2018. Eosinophil pct 3.4 % [facility] Comment: Collection date/time has been modified to: 18:30:00. Previous collection date/time: 17:32:00. Interpretive Data Percent cell count reference ranges are not reported, since discordance with absolute values may lead to misinterpretation of CBC data. Current Interpretive Data was last revised on 2018. Basophil pct 0.4 % [facility] Comment: Collection date/time has been modified to: 18:30:00. Previous collection date/time: 17:32:00. Interpretive Data Percent cell count reference ranges are not reported, since discordance with absolute values may lead to misinterpretation of CBC data. Current Interpretive Data was last revised on 2018. Blood 05/11/2025 6:30 PM CDT 05/11/2025 6:39 PM CDT Luca Lott MD LAB BLOOD ORDERABLES Edited Result - Final [facility] [place] [address] * (ABNORMAL) CBC with auto differential (05/11/2025 6:30 PM CDT) WBC 5.64 3.80 - 9.90 K/cumm Comment:Collection date/time has been modified to: 18:30:00. Previous collection date/time: 17:32:00. Hgb 11.5(L) 11.9 - 15.5 g/dL [facility] Comment:Collection date/time has been modified to: 18:30:00. Previous collection date/time: 17:32:00. Hct 36.8 35.6 - 45.5 % [facility] Comment:Collection date/time has been modified to: 18:30:00. Previous collection date/time: 17:32:00. Plt 158 150 - 400 K/cumm [facility] Comment:Collection date/time has been modified to: 18:30:00. Previous collection date/time: 17:32:00. MPV 10.7 9.1 - 12.3 fL [facility] Comment:Collection date/time has been modified to: 18:30:00. Previous collection date/time: 17:32:00. RBC 3.94 3.90 - 5.20 M/cumm [facility] Comment:Collection date/time has been modified to: 18:30:00. Previous collection date/time: 17:32:00. MCV 93.4 81.3 - 96.4 fL [facility] [facility] Comment:Collection date/time has been modified to: 18:30:00. Previous collection date/time: 17:32:00. MCH 29.2 27.1 - 33.3 pg [facility] Comment:Collection date/time has been modified to: 18:30:00. Previous collection date/time: 17:32:00. MCHC 31.3(L) 32.3 - 35.7 g/dL [facility] Comment:Collection date/time has been modified to: 18:30:00. Previous collection date/time: 17:32:00. RDW CV 16.3(H) 11.1 - 14.9 % [facility] Comment:Collection date/time has been modified to: 18:30:00. Previous collection date/time: 17:32:00. RDW SD 55.2(H) 35.7 - 48.1 fL [facility] Comment:Collection date/time has been modified to: 18:30:00. Previous collection date/time: 17:32:00. NRBC abs 0.00 0.00 - 0.01 K/cumm [facility] Comment:Collection date/time has been modified to: 18:30:00. Previous collection date/time: 17:32:00. Blood 05/11/2025 6:30 PM CDT 05/11/2025 6:39 PM CDT us Luca Lott MD LAB BLOOD ORDERABLES Edited Result - Final [facility] Department [place] [address] * (ABNORMAL) Basic metabolic panel (05/11/2025 6:30 PM CDT) Sodium 134(L) 135 - 145 mmol/L Potassium, pl 5.4(H) 3.3 - 4.9 mmol/L [facility] Chloride 96(L) 97 - 110 mmol/L [facility] CO2 26 22 - 32 mmol/L [facility] Anion gap 12 2 - 15 mmol/L [facility] BUN 57(H) 6 - 25 mg/dL [facility] Creatinine 13.94(H) 0.60 - 1.10 mg/dL [facility] Glucose 114 70 - 199 mg/dL [facility] Comment: Interpretive Data Fasting glucose >/= [...] Calcium 8.3(L) 8.5 - 10.3 mg/dL [facility] Blood 05/11/2025 6:30 PM CDT 05/11/2025 6:39 PM CDT Luca Lott MD LAB BLOOD ORDERABLES Final R esult [facility] [place] [address] * LEFT HEART CATHETERIZATION WITH CORONARY ANGIOGRAPHY [...] personally dictated or confirmed the above report. uLca Lott MD Narrative 05/11/2025 4:43 PM CDT Table formatting from the original result was not included. Images from the original result were not included. Procedure: CORONARY ANGIOGRAM / PERCUTANEOUS CORONARY INTERVENTION Patient: Estuardo Copeland is a 54 y.o. female : 1970 MR number: [id number] Date of Service: 05/11/2025 Process Safety Specialist: Luca Lott MD Fellow: Rio Jacobs MD [...] obtained. The patient was brought to the optical laboratory mechanic and placed on the table Bilateral groins [...] coronary artery angiogram performed using a 6 Swedish JL 3 guide Percutaneous coronary intervention performed on the Proximal vein graft to the LAD. This was an ACC/AHA Type C. Initial Lesion Length 12mm and final lesion Length 12mm. Initial KAROLINA Flow 3 Final KAROLINA Flow 3. Equipment used: 6 3D RC [place] Elim Ira IVUS Catheter, Butt Presser 50 wire, 0.9 mm laser atherectomy catheter [...] got the guide to sit and a Butt Presser 50 wire down into the LAD. Next [...] 284(H) 123 - 168 sec POC Performer [id number] [facility] POC Device Number [id number] [facility] Blood 05/11/2025 4:12 PM CDT 05/11/2025 4:12 PM CDT us Luca Lott MD LAB POCT ORDERABLES - DEVICE Final Result Performing Organization Address [facility]/ZIP Co de Phone Number [facility] [place] [address] * (ABNORMAL) POCT Activated clotting time, low range (05/11/2025 3:50 PM CDT) ACT 290(H) 123 - 168 sec POC Performer [id number] [facility] POC Device Number [id number] [facility] Blood 05/11/2025 3:50 PM CDT 05/11/2025 3:50 PM CDT Luca Lott MD LAB POCT ORDERABLES - DEVICE Final Result Performing Organization Address [facility] Co de Phone Number [facility] [place] [address] * (ABNORMAL) Potassium, whole blood (05/11/2025 12:00 PM CDT) Potassium, bld 5.0(H) 3.3 - 4.9 mmol/L Blood 05/11/2025 12:0 0 PM CDT 05/11/2025 12:12 PM CDT us Kasi Garcia DIRECTOR [employer] LAB BLOOD ORDERABLES F inal Result Performing Organization Address City/[facility]/ZIP Co de Phone Number [facility] [place] [address] * (ABNORMAL) POC Blood Gas and Chemistries, Arterial - (05/11/2025 11:46 AM CDT) [facility] K POC 5.5(H) 3.3 - 4.9 mmol/L Comment: Interpretive Data Not all point of care methods assess for hemolysis. Confirm with instrument and retest K+ if not consistent with clinical signs and symptoms. Current Interpretive Data was last revised on 2024. Blood 05/11/2025 11:4 6 AM CDT 05/11/2025 11:46 AM CDT us Luca Lott MD LAB POCT ORDERABLES - DEVICE Final Result [facility] [place] [address] * TRANSTHORACIC ECHO (TTE) COMPLETE W DOPPLER/CF W CONTRAST (05/07/2025 10:16 AM CDT) [facility] Estimated EF 55-60 % CONS SCIMAGE Anatomical Region Laterality Modality Ultrasound 05/06/2025 3:39 PM CDT Narrative 05/06/2025 6:28 PM CDT [facility] [place] [address] Transthoracic Echocardiographic Report Patient Name: ESTUARDO COPELAND M : 1970 (54y 5m) Gender: F Study Date: 05/06/2025 03:39:15 PM Ht(Inch): 64 Wt(Lb): 132.94 BSA: 1.65 Student Accounts Manager: Brad Tripathi RDCS Location: [id number] Order Provider: ASHLEY CHAHAL Heart Rate: 65 [...] Procedure Note Job Gordon MD - 05/06/2025 [facility] [place] [address] Transthoracic Echocardiographic Report Patient Name: ESTUARDO COPELAND M : 1970 (54y 5m) Gender: F Study Date: 05/06/2025 03:39:15 PM Ht(Inch): 64 Wt(Lb): 132.94 BSA: 1.65 Student Accounts Manager: Brad Tripathi [facility] Location: [id number] Order Provider: ASHLEY CHAHAL Heart Rate: 65 [...] cm/m2 [ 1.00 - 2.00 ] MV XJB406.27 msec [ 20.00 - 100.00 ] Asc Ao Diam 2D 1.63 cm MVA PHT2.11 cm2 Asc Ao Index 0.99 cm/m2 MV Decel Nftg683.23 msec [ 104.00 - 258.00 ] Med [...] MD LAB BLOOD ORDERAB LES Final Result [facility] Department [place] [address] * (ABNORMAL) Vitamin D 25 hydroxy (05/07/2025 6:17 AM CDT) [facility] Vitamin D 25-OH 22(L) 30 - 80 ng/mL Blood 05/07/2025 6:17 AM CDT 05/07/2025 6:55 AM CDT us Ashley Chahal MD LAB BLOOD ORDERAB LES Final Result Performing Organization Address City/[facility] Co de Phone Number [facility] [place] [address] * (ABNORMAL) CBC without differential (05/07/2025 6:17 AM CDT) [facility] WBC 6.90 3.80 - 9.90 K/cumm Hgb 12.4 11.9 - 15.5 g/dL [facility] Hct 39.1 35.6 - 45.5 % [facility] Plt 157 150 - 400 K/cumm [facility] MPV 10.4 9.1 - 12.3 fL [facility] RBC 4.19 3.90 - 5.20 M/cumm [facility] MCV 93.3 81.3 - 96.4 fL [facility] MCH 29.6 27.1 - 33.3 pg [facility] MCHC 31.7(L) 32.3 - 35.7 g/dL [facility] RDW CV 16.6(H) 11.1 - 14.9 % [facility] RDW SD 56.4(H) 35.7 - 48.1 fL [facility] NRBC abs 0.00 0.00 - 0.01 K/cumm [facility] Blood 05/07/2025 6:17 AM CDT 05/07/2025 6:55 AM CDT us Ashley Chahal MD LAB BLOOD ORDERAB LES Final Result [facility] [place] [address] * (ABNORMAL) PTH (05/07/2025 6:17 AM CDT) [facility] PTH 9(L) 15 - 65 pg/mL Blood 05/07/2025 6:17 AM CDT 05/07/2025 6:55 AM CDT us Ashley Chahal MD LAB BLOOD ORDERAB LES Final Result Performing Organization Address City/[facility] Co de Phone Number [facility] [place] [address] * (ABNORMAL) Renal function panel (05/07/2025 6:17 AM CDT) [facility] Sodium 136 135 - 145 mmol/L Potassium, pl 5.1(H) 3.3 - 4.9 mmol/L [facility] Chloride 96(L) 97 - 110 mmol/L [facility] CO2 27 22 - 32 mmol/L [facility] Anion gap 13 2 - 15 mmol/L [facility] BUN 52(H) 6 - 25 mg/dL [facility] Creatinine 14.17(H) 0.60 - 1.10 mg/dL [facility] Glucose 86 70 - 199 mg/dL [facility] Comment: Interpretive Data Fasting glucose >/= [...] Calcium 8.8 8.5 - 10.3 mg/dL [facility] Phosphorus, pl 9.9(H) 2.3 - 4.5 mg/dL [facility] Albumin 2.8(L) 3.5 - 5.0 g/dL [facility] Blood 05/07/2025 6:17 AM CDT 05/07/2025 6:55 AM CDT Ashley Chahal MD LAB BLOOD ORDERAB LES Final Result Performing Organization Address City/[facility] Co de Phone Number [facility] [place] [address] * Cortisol (05/06/2025 8:36 AM CDT) [facility] Cortisol 11.7 4.8 - 19.5 mcg/dL Comment: Interpretive Data: Morning hours 6-10 a.m. 4.8 - 19.5 mcg/dL Afternoon hours 4-8 p.m. 2.5 - 11.9 mcg/dL This analyte undergoes marked diurnal variation. Current interpretive data was last revised 24. Blood 05/06/2025 8:36 AM CDT 05/06/2025 9:27 AM CDT Ashley Chahal MD LAB BLOOD ORDERAB LES Final Result [facility] [place] [address] * (ABNORMAL) eGFR (05/06/2025 3:41 AM CDT) [...] MD LAB BLOOD ORDERAB LES Final Result [facility] [place] [address] * (ABNORMAL) Magnesium (05/06/2025 3:41 AM CDT) Magnesium 2.7(H) 1.4 - 2.5 mg/dL Blood 05/06/2025 3:41 AM CDT 05/06/2025 4:14 AM CDT us Ashley Chahal MD LAB BLOOD ORDERAB LES Final Result Performing Organization Address City/[facility]/ZIP Co de Phone Number [facility] [place] [address] * (ABNORMAL) Renal function panel (05/06/2025 3:41 AM CDT) Sodium 136 135 - 145 mmol/L Potassium, pl 4.9 3.3 - 4.9 mmol/L [facility] Chloride 97 97 - 110 mmol/L [facility] CO2 25 22 - 32 mmol/L [facility] Anion gap 14 2 - 15 mmol/L [facility] BUN 56(H) 6 - 25 mg/dL [facility] Creatinine 14.58(H) 0.60 - 1.10 mg/dL [facility] Glucose 107 70 - 199 mg/dL [facility] Comment: Interpretive Data Fasting glucose >/= [...] 2022. Calcium 9.0 8.5 - 10.3 mg/dL [facility] Phosphorus, pl 10.0(H) 2.3 - 4.5 mg/dL [facility] Albumin 2.7(L) 3.5 - 5.0 g/dL [facility] Blood 05/06/2025 3:41 AM CDT 05/06/2025 4:14 AM CDT us Ashley Chahal MD LAB BLOOD ORDERAB LES Final Result [facility] [place] [address] * (ABNORMAL) Troponin I high-sensitivity 6-hour (05/05/2025 11:37 AM CDT) Trop I hs 172(H) <=17 ng/L Comment: Previous critical value noted within 48 hours ago. Interpretive Data For further hscTnI resources including the diagnostic algorithm and an aid in interpretation, copy and paste this link: [email or web address]/show/[email or web address] Current Interpretive Data last revised 2020. Trop I hs pct delta -11 % [facility] Trop I hs interp Equivocal [facility] Blood 05/05/2025 11:3 7 AM CDT 05/05/2025 12:24 PM CDT Jacqueline Jules MD LAB BLOOD ORDER [place] Final Result Performing Organization Address [facility] Co de Phone Number [facility] [place] [address] * (ABNORMAL) Troponin I high-sensitivity 4-hour (05/05/2025 9:06 AM CDT) Trop I hs 189(H) <=17 ng/L Comment: Interpretive Data For further hscTnI resources including the diagnostic algorithm and an aid in interpretation, copy and paste this link: [email or web address].[email or web address]/show/[email or web address]-1 Current Interpretive Data last revised 2020. Trop I hs pct delta -3 % [facility] Trop I hs interp Insignificant [facility] Blood 05/05/2025 9:06 AM CDT 05/05/2025 9:54 AM CDT Jacqueline Jules MD LAB BLOOD ORDER WEST[place] Final Result Performing Organization Address City/[facility]/ZIP Co de Phone Number [facility] [place] [address] * (ABNORMAL) Troponin I high-sensitivity 2-hour (05/05/2025 6:36 AM CDT) Trop I hs 192(H) <=17 ng/L Comment: Interpretive Data For further hscTnI resources including the diagnostic algorithm and an aid in interpretation, copy and paste this link: https://NewAerab.[email or web address]/show/hsTrop-[email or web address] Current Interpretive Data last revised 2020. Trop I hs pct delta -1 % [facility] Trop I hs interp Insignificant [facility] Blood 05/05/2025 6:36 AM CDT 05/05/2025 8:08 AM CDT Jacqueline Jules MD LAB BLOOD ORDER WEST[place] Final Result Performing Organization Address [facility] de Phone Number [facility] [place] [address] * (ABNORMAL) Troponin I high-sensitivity series (baseline, 2hr, 4hr, 6hr) (05/05/2025 4:48 AM CDT) Trop I hs 194(H) <=17 ng/L Comment: Interpretive Data For further hscTnI resources including the diagnostic algorithm and an aid in interpretation, copy and paste this link: [email or web address]/show/[email or web address] Current Interpretive Data last revised 2020. Blood 05/05/2025 4:48 AM CDT 05/05/2025 5:03 AM CDT Jacqueline Jules MD LAB BLOOD ORDER WESTON Final Result Performing Organization Address [facility] Co de Phone Number [facility] [place] [address] * (ABNORMAL) eGFR (05/05/2025 4:48 AM CDT) [...] LAB BLOOD ORDER WESTON Final Result [facility] [place] [address] * (ABNORMAL) Pro B-type natriuretic peptide (05/05/2025 [...] ORDER WESTON Final Result Performing Organization Address [facility] Co de Phone Number [facility] [place] [address] * (ABNORMAL) Thyroid Function [place] (05/05/2025 4:48 AM CDT) TSH 14.50(H) 0.30 - 4.20 mcIUnit/mL Blood 05/05/2025 4:48 AM CDT 05/05/2025 5:03 AM CDT Jacqueline Jules MD LAB BLOOD ORDER WEST[place] Final Result Performing Organization Address [facility] de Phone Number [facility] [place] [address] * Protime-INR (05/05/2025 4:48 AM CDT) PT 12.4 9.7 - 13.0 sec INR 1.14 0.90 - 1.20 [facility] Comment: Interpretive data Oral anticoagulant therapeutic ranges: Venous thromboembolism prophylaxis or treatment: 2.0-3.0 CARDIOLOGY Standard range: 2.0-3.0 High-intensity range: 2.5-3.5 Refer to indication-specific guidelines for appropriate target ranges for prosthetic heart valve replacement. Current interpretive data was last revised on 2019. Blood 05/05/2025 4:48 AM CDT 05/05/2025 5:13 AM CDT Narrative [facility] - 05/05/2025 5:19 AM CDT Baseline prior to apixaban initiation. Jacqueline Jules MD LAB BLOOD ORDER WEST[place] Final Result Performing Organization Address City/[facility]/ZIP Co de Phone Number [facility] [place] [address] * (ABNORMAL) CBC without differential (05/05/2025 4:48 AM CDT) WBC 5.83 3.80 - 9.90 K/cumm Hgb 11.8(L) 11.9 - 15.5 g/dL [facility] Hct 37.7 35.6 - 45.5 % [facility] Plt 131(L) 150 - 400 K/cumm [facility] MPV 10.9 9.1 - 12.3 fL [facility] RBC 4.00 3.90 - 5.20 M/cumm [facility] MCV 94.3 81.3 - 96.4 fL [facility] MCH 29.5 27.1 - 33.3 pg [facility] MCHC 31.3(L) 32.3 - 35.7 g/dL [facility] RDW CV 16.8(H) 11.1 - 14.9 % [facility] RDW SD 56.8(H) 35.7 - 48.1 fL [facility] NRBC abs 0.00 0.00 - 0.01 K/cumm [facility] Blood 05/05/2025 4:48 AM CDT 05/05/2025 5:04 AM CDT Jacqueline Jules MD LAB BLOOD ORDER WESTON Final Result Performing Organization Address City/[facility]/ZIP Co de Phone Number [facility] [place] [address] * (ABNORMAL) T4, free (05/05/2025 4:48 AM CDT) Free T4 0.70(L) 0.90 - 1.70 ng/dL Blood 05/05/2025 4:48 AM CDT 05/05/2025 5:03 AM CDT Narrative [facility] - 05/05/2025 6:23 AM CDT This test was reflexed from a TSH result. Jacqueline Jules MD LAB BLOOD ORDER WE[place] Edited Result - Final Performing Organization Address City/[facility]/ZIP Co [place] [address] * (ABNORMAL) Phosphorus (05/05/2025 4:48 AM CDT) Phosphorus, pl 11.7(H) 2.3 - 4.5 mg/dL Blood 05/05/2025 4:48 AM CDT 05/05/2025 5:03 AM CDT Jacqueline Jules MD LAB BLOOD ORDER WESTON Final Result Performing Organization Address City/[facility]/ZIP Co de Phone Number [facility] [place] [address] * (ABNORMAL) Magnesium (05/05/2025 4:48 AM CDT) Magnesium 2.9(H) 1.4 - 2.5 mg/dL Blood 05/05/2025 4:48 AM CDT 05/05/2025 5:03 AM CDT Jacqueline Jules MD LAB BLOOD ORDER WESTON Final Result Performing Organization Address City/[facility]/ZIP Co de Phone Number [facility] [place] [address] * Bilirubin, direct (05/05/2025 4:48 AM CDT) Bilirubin, direct <0.2 0.1 - 0.3 mg/dL Blood 05/05/2025 4:48 AM CDT 05/05/2025 5:03 AM CDT Jacqueline Jules MD LAB BLOOD ORDER WEST[place] Final Result [facility] [place] [address] * (ABNORMAL) Comprehensive metabolic panel (05/05/2025 4:48 AM CDT) Pathologist [facility] Sodium 140 135 - 145 mmol/L Potassium, pl 5.1(H) 3.3 - 4.9 mmol/L [facility] Chloride 100 97 - 110 mmol/L [facility] CO2 24 22 - 32 mmol/L [facility] Anion gap 16(H) 2 - 15 mmol/L [facility] BUN 60(H) 6 - 25 mg/dL [facility] Creatinine 14.48(H) 0.60 - 1.10 mg/dL [facility] Glucose 91 70 - 199 mg/dL [facility] Comment: Interpretive Data Fasting glucose >/= [...] 2022. Calcium 9.5 8.5 - 10.3 mg/dL [facility] Bilirubin, total 0.2 0.1 - 1.2 mg/dL [facility] Protein, pl 5.6(L) 6.5 - 8.5 g/dL [facility] Albumin 2.8(L) 3.5 - 5.0 g/dL [facility] Alk phos 71 40 - 130 Units/L [facility] ALT 9 7 - 45 Units/L [facility] AST 16 10 - 45 Units/L [facility] Blood 05/05/2025 4:48 AM CDT 05/05/2025 5:03 AM CDT [facility] Lacey Jules MD LAB BLOOD ORDER WESTON Final Result [facility] [place] [address] * XR Chest 1 View (05/04/2025 11:16 [...] 12 lead (05/04/2025 8:59 PM CDT) Pathologist [facility] Ventricular Rate EKG/Min 82 BPM [facility] Atrial Rate [address] [facility] MT-Interval (MSEC) [address] [facility] QRS-Interval (MSEC) [address] [facility] QT-Interval (MSEC) [address] [facility] QTc [address] [facility] P [place] -[address] [facility] R [place] -[address] [facility] T [place] [address] [facility] Diagnosis Atrial-paced rhythm Minimal voltage criteria for LVH, may be normal variant ( [place] product ) Septal infarct (cited on or before 20-FEB-2025) T wave abnormality, consider lateral ischemia Abnormal ECG When compared with ECG of 22-FEB-2025 09:14, Electronic atrial pacemaker has replaced Sinus rhythm Confirmed by HARJINDER HANDY M.D ([id number]) on 05/05/2025 2:09:[address] [facility] 05/04/2025 8:59 PM CDT 05/05/2025 2:09 PM CDT Jacqueline Jules MD ECG ORDERABLES Final Result [facility] * Cardiology Document Scan (04/24/2025 3:35 PM [...] appropriate. No short V-V intervals. Presenting Rhythm (MT) Atrial Sensing-Ventricular Sensing (-VS) --- /VS (SR) [...] andappropriate. No short V-V intervals. Presenting Rhythm (MT) Atrial Sensing-Ventricular Sensing (-VS) --- /VS (SR) [...] CV CARDIAC SERVICES PROCEDURES Final Result * Extended/Fci Holter Patch (>48 hours up to 7 days) (04/20/2025 1:47 PM CDT) Anatomical Region Laterality Modality Electrocardiogra phy 04/27/2025 12:4 8 PM CDT Narrative 05/10/2025 1:47 PM CDT HOLTER MONITOR Patient Name: ESTUARDO COPELAND M : 1970 (54y 5m) Gender: F Study Date: 04/27/2025 12:48:59 PM Ht(Inch): Wt(Lb): BSA: Tech: Location: [facility] Order Provider: LUCA LOTT BMI: Ref Provider: LUCA LOTT PROCEDURES: Holter Report: EXTENDED/SHELTER HOLTER PATCH (>48 HOURS UP TO 7 DAYS) [[id number]]. Enrollment Period: 2025-04-27 00:00:00 through 2025-04-29 00:00:00. Location: [facility]. INDICATIONS: R00.2 Palpitations. FINDINGS: Holter Data: Min [...] events Runs (VT): 6 events Total beats: 03548 SIGNIFICANT PAUSES: 0 >3 sec Protocol: Recording Duration (Ordered): [id number] Recording Duration (Actual): 96123.3 SUMMARY: *The predominant rhythm was Sinus with [...] The PDF can be found in the [facility] Patient chart. Please go to [...] 12:48:59 PM Ht(Inch): Wt(Lb): BSA: Tech: Location: [facility] Order Provider: LUCA LOTT BMI: Ref Provider: LUCA LOTT PROCEDURES: Holter Report: EXTENDED/SHELTER HOLTER PATCH (>48 HOURS UP TO 7 DAYS)[[id number]]. Enrollment Period: 2025-04-27 00:00:00 through 2025-04-29 00:00:00. Location: [facility]. INDICATIONS: R00.2 Palpitations. FINDINGS: Holter Data: Min [...] events Runs (VT): 6 events Total beats: 95176 SIGNIFICANT PAUSES: 0 >3 sec Protocol: Recording Duration (Ordered): [id number] Recording Duration (Actual): 12753.3 SUMMARY: *The predominant rhythm was Sinus with [...] The PDF can be found in the [facility] Patient chart. 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 Single Antigen Antibody [...] a method developed and validated by the [facility] HLA laboratory based on an FDA-approved IVD kit (LABScreen Single-Antigen, [employer], [place], [place]). All patient serum samples are pretreated with EDTA before the screen to prevent complement interference. Additional serum treatments, such as adsorption and DTT treatment, may be performed as indicated. Interpretive comments: Low risk: MFI [id number]. Moderate risk: MFI [id number]. Increased risk: MFI >/= 5000. The presence [...] to avoid. Testing performed at the [facility], [address] [place] [address], 5th floor, [place], [address]. [facility] # [id number]. Rosa Millan, Ph.D., Machine Feeder Raw Stock, [facility] Laboratory Wilmer Prescott M.D., Ph.D., Clinical Review Nurse, [facility] Laboratory Alma Payton, Ph.D., CLIA Clinical Review Nurse, [facility] Clinical Laboratories Current methodology and interpretive comments last revised on 11/15/2022. us Salina Hector MD LAB BLOOD ORDERABLES Final Resul t [facility] * HLA Antibody Screen by PRA or SAB per Schedule (Class I and Class II) (03/01/2025 10:00 AM CDT) Blood 03/01/2025 10:0 0 AM CDT Narrative [facility] - AIRFRAME AND POWERPLANT TECHNICIAN Sample received in lab and stored. No [...] BLOOD ORDERABLES Final Result Performing Organization Address City/[facility] Co de Phone Number [facility] [place] [address] * (ABNORMAL) Differential, auto (02/24/2025 9:50 AM CDT) Neutrophil abs 4.72 1.50 - 6.50 K/cumm Imm gran abs 0.02 0.00 - 0.10 K/cumm [facility] Lymphocyte abs 0.73(L) 0.80 - 3.30 K/cumm [facility] Monocyte abs 0.42 0.20 - 0.80 K/cumm [facility] Eosinophil abs 0.21 0.00 - 0.50 K/cumm [facility] Basophil abs 0.04 0.00 - 0.10 K/cumm [facility] Neutrophil pct 76.9 % [facility] Comment: Interpretive Data Percent cell count reference ranges are not reported, since discordance with absolute values may lead to misinterpretation of CBC data. Current Interpretive Data was last revised on 2018. Imm gran pct 0.3 % [facility] Comment: Interpretive Data Percent cell count reference ranges are not reported, since discordance with absolute values may lead to misinterpretation of CBC data. Current Interpretive Data was last revised on 2018. Lymphocyte pct 11.9 % [facility] Comment: Interpretive Data Percent cell count reference ranges are not reported, since discordance with absolute values may lead to misinterpretation of CBC data. Current Interpretive Data was last revised on 2018. Monocyte pct 6.8 % [facility] Comment: Interpretive Data Percent cell count reference ranges are not reported, since discordance with absolute values may lead to misinterpretation of CBC data. Current Interpretive Data was last revised on 2018. Eosinophil pct 3.4 % [facility] Comment: Interpretive Data Percent cell count reference ranges are not reported, since discordance with absolute values may lead to misinterpretation of CBC data. Current Interpretive Data was last revised on 2018. Basophil pct 0.7 % [facility] Comment: Interpretive Data Percent cell count reference ranges are not reported, since discordance with absolute values may lead to misinterpretation of CBC data. Current Interpretive Data was last revised on 2018. Blood 02/24/2025 9:50 AM CDT 02/24/2025 10:17 AM CDT Dasha Montez DO LAB BLOOD ORDERABLES Final Result [facility] [place] [address] * (ABNORMAL) CBC with auto differential (02/24/2025 9:50 AM CDT) WBC 6.14 3.80 - 9.90 K/cumm Hgb 12.5 11.9 - 15.5 g/dL [facility] Hct 39.5 35.6 - 45.5 % [facility] Plt 177 150 - 400 K/cumm [facility] MPV 10.8 9.1 - 12.3 fL [facility] RBC 4.37 3.90 - 5.20 M/cumm [facility] MCV 90.4 81.3 - 96.4 fL [facility] MCH 28.6 27.1 - 33.3 pg [facility] MCHC 31.6(L) 32.3 - 35.7 g/dL [facility] RDW CV 15.9(H) 11.1 - 14.9 % [facility] RDW SD 51.0(H) 35.7 - 48.1 fL [facility] NRBC abs 0.00 0.00 - 0.01 K/cumm [facility] Blood 02/24/2025 9:50 AM CDT 02/24/2025 10:17 AM CDT Dasha Montez DO LAB BLOOD ORDERABLES Final Result [facility] [place] [address] * (ABNORMAL) Basic metabolic panel (02/24/2025 9:50 AM CDT) [facility] Sodium 136 135 - 145 mmol/L Potassium, pl 5.0(H) 3.3 - 4.9 mmol/L [facility] Chloride 93(L) 97 - 110 mmol/L [facility] CO2 27 22 - 32 mmol/L [facility] Anion gap 16(H) 2 - 15 mmol/L [facility] BUN 43(H) 6 - 25 mg/dL [facility] Creatinine 11.83(H) 0.60 - 1.10 mg/dL [facility] Glucose 82 70 - 199 mg/dL [facility] Comment: Interpretive Data Fasting glucose >/= [...] Calcium 7.9(L) 8.5 - 10.3 mg/dL [facility] Blood 02/24/2025 9:50 AM CDT 02/24/2025 10:17 AM CDT Dasha Montez DO LAB BLOOD ORDERABLES Final Result [facility] [place] [address] * (ABNORMAL) eGFR (02/23/2025 11:43 PM CDT) [...] BLOOD ORDERABLES Final Result Performing Organization Address [facility] Co de Phone Number [facility] [place] [address] * VerifyNow clopidogrel (02/23/2025 11:43 PM CDT) [...] ORDERABLES Fin al Result Performing Organization Address City/[facility]/ZIP Co de [facility] [place] [address] * (ABNORMAL) Phosphorus (02/23/2025 11:43 PM CDT) Phosphorus, pl 7.6(H) 2.3 - 4.5 mg/dL Blood 02/23/2025 11:4 3 PM CDT 02/24/2025 12:22 AM CDT Jaimie Giordano MD LAB BLOOD ORDERABLES Final Result [facility] [place] [address] * Magnesium (02/23/2025 11:43 PM CDT) Pathologist [facility] Magnesium 2.4 1.4 - 2.5 mg/dL Blood 02/23/2025 11:4 3 PM CDT 02/24/2025 12:22 AM CDT Jaimie Giordano MD LAB BLOOD ORDERABLES Final Result Performing Organization Address [facility] de Phone Number [facility] Department [place] [address] * (ABNORMAL) Basic metabolic panel (02/23/2025 11:43 PM CDT) Pathologist [facility] Sodium 133(L) 135 - 145 mmol/L Potassium, pl 4.9 3.3 - 4.9 mmol/L [facility] Chloride 95(L) 97 - 110 mmol/L [facility] CO2 27 22 - 32 mmol/L [facility] Anion gap 11 2 - 15 mmol/L [facility] BUN 52(H) 6 - 25 mg/dL [facility] Creatinine 11.94(H) 0.60 - 1.10 mg/dL [facility] Glucose 89 70 - 199 mg/dL [facility] Comment: Interpretive Data Fasting glucose >/= [...] 2022. Calcium 8.0(L) 8.5 - 10.3 mg/dL [facility] Blood 02/23/2025 11:4 3 PM CDT 02/24/2025 12:22 AM CDT Jaimie Giordano MD LAB BLOOD ORDERABLES Final Result [facility] [place] [address] * LEFT HEART CATHETERIZATION WITH CORONARY ANGIOGRAPHY [...] 54 y.o. female : 1970 MR number: [id number] Date of Service: 02/23/2025 Process Safety Specialist: Luca Lott MD Fellow: Sanket Quiroz MD [...] vein graft to her LAD and her [place] left main. She now presents for urgent cardiac catheterization PROCEDURE: The risks, benefits and alternatives of the procedures and moderate sedation were explained to the patient and informed consent was obtained. The patient was brought to the optical laboratory mechanic and placed on the table Bilateral groins [...] the LAD angiogram performed using a 6 Swedish 3D RC Percutaneous coronary intervention performed on theSVG to the Proximal LAD. This was an ACC/AHA Type C. Initial Lesion Length 12mm and final lesion Length 20mm. Initial KAROLINA Flow 3 Final KAROLINA Flow 3. Equipment used: 6 3DRC, [employer] - is now Clip[employer] Elim Ira IVUS Catheter, Butt Presser 50 wire, 0.9 mm laser atherectomy catheter [...] it was extremely difficult. We used a Butt Presser 50 wire with extreme difficulty wire through [...] 319(H) 123 - 168 sec POC Performer [id number] [facility] POC Device Number [id number] [facility] Blood 02/23/2025 1:41 PM CDT 02/23/2025 1:41 PM CDT Ellie Sarkar MD LAB POCT ORDERABLES - DE VICE Final Result Performing Organization Address [facility] Co de Phone Number [facility] Department [place] [address] * (ABNORMAL) POCT Activated clotting time, low range (02/23/2025 12:35 PM CDT) ACT 351(H) 123 - 168 sec POC Performer [id number] [facility] POC Device Number [id number] [facility] Blood 02/23/2025 12:3 5 PM CDT 02/23/2025 12:35 PM CDT Ellie Sarkar MD LAB POCT ORDERABLES - DE VICE Final Result Performing Organization Address [facility] de Phone Number [facility] [place] [address] * (ABNORMAL) aPTT (02/23/2025 6:36 AM CDT) Pathologist [facility] aPTT 80(H) 28 - 38 sec Comment: Interpretive Data Heparin therapeutic range: 66.0 - 100.0 seconds. Range based on correlation with therapeutic heparin activity range of 0.3 - 0.7 Units/mL. Current interpretive data was last revised on 2023. Blood 02/23/2025 6:36 AM CDT 02/23/2025 7:00 AM CDT us Heaven Lerner MD LAB BLOOD ORDERABLES Final Result Performing Organization Address [facility] Co de Phone Number [facility] Department [place] [address] * (ABNORMAL) eGFR (02/22/2025 11:07 PM CDT) [...] MD LAB BLOOD ORDERABLES Final Result [facility] Department [place] [address] * (ABNORMAL) aPTT (02/22/2025 11:07 PM CDT) [...] ORDERABLES Fin al Result Performing Organization Address [facility] Co de Phone Number [facility] [place] [address] * (ABNORMAL) Phosphorus (02/22/2025 11:07 PM CDT) [facility] Phosphorus, pl 7.2(H) 2.3 - 4.5 mg/dL Blood 02/22/2025 11:0 7 PM CDT 02/22/2025 11:50 PM CDT Jaimie Giordano MD LAB BLOOD ORDERABLES Final Result Performing Organization Address [facility] de Phone Number [facility] [place] [address] * Magnesium (02/22/2025 11:07 PM CDT) [facility] Magnesium 2.5 1.4 - 2.5 mg/dL Blood 02/22/2025 11:0 7 PM CDT 02/22/2025 11:50 PM CDT Jaimie Giordano MD LAB BLOOD ORDERABLES Final Result Performing Organization Address [facility] de Phone Number [facility] [place] [address] * (ABNORMAL) Basic metabolic panel (02/22/2025 11:07 PM CDT) [facility] Sodium 134(L) 135 - 145 mmol/L Potassium, pl 4.5 3.3 - 4.9 mmol/L [facility] Chloride 95(L) 97 - 110 mmol/L [facility] CO2 28 22 - 32 mmol/L [facility] Anion gap 11 2 - 15 mmol/L [facility] BUN 56(H) 6 - 25 mg/dL [facility] Creatinine 11.97(H) 0.60 - 1.10 mg/dL [facility] Glucose 104 70 - 199 mg/dL [facility] Comment: Interpretive Data Fasting glucose >/= [...] Calcium 7.8(L) 8.5 - 10.3 mg/dL [facility] Blood 02/22/2025 11:0 7 PM CDT 02/22/2025 11:50 PM CDT Jaimie Giordano MD LAB BLOOD ORDERABLES Final Result Performing Organization Address City/[facility] Co de Phone Number [facility] [place] [address] * (ABNORMAL) aPTT (02/22/2025 2:25 PM CDT) [...] BLOOD ORDERABLES Final Result Performing Organization Address City/[facility]/ZIP Co de Phone Number [facility] [place] [address] * TRANSTHORACIC ECHO (TTE) COMPLETE W DOPPLER/CF W CONTRAST (02/22/2025 1:39 PM CDT) EF Mod BP 51 % CONS SCIMAGE Anatomical Region Laterality Modality Ultrasound 02/22/2025 12:3 8 PM CDT Narrative 02/22/2025 2:49 PM CDT [facility] [place] [address] Transthoracic Echocardiographic Report Patient Name: ESTUARDO COPELAND M : 1970 (54y 3m) Gender: F Study Date: 02/22/2025 12:38:48 PM Ht(Inch): 64 Wt(Lb): 123.9 BSA: 1.59 Student Accounts Manager: Marisol [facility]ciniega RDCS [facility]: [id number] Order Provider: ELLIE SARKAR Heart Rate: 75 [...] flow reversal in the hepatic veins. Mild MT. Est. PASP 40-45 mm Hg. 7. Physiologic [...] Procedure Note Rc Koehler MD - 02/22/2025 [facility] [place] [address] Transthoracic Echocardiographic Report Patient Name: ESTUARDO COPELAND M : 1970 (54y 3m) Gender: F Study Date: 02/22/2025 12:38:48 PM Ht(Inch): 64 Wt(Lb): 123.9 BSA: 1.59 Student Accounts Manager: Marisol Arciniega RD, [facility] Location: [id number] OrderProvider: ELLIE SARKAR Heart Rate: 75 BMI: [...] systolic flow reversal in the hepatic veins.Mild MT. Est. PASP 40-45 mm Hg. 7. Physiologic [...] [ 2.70 - 3.70 ] MV Decel [id number] msec [ 104.00 - 258.00 ] Ao [...] Pathologist [facility] Ventricular Rate EKG/Min 80 BPM [facility] Atrial Rate [address] [facility] MT-Interval (MSEC) [address] [facility] QRS-Interval (MSEC) [address] [facility] QT-Interval (MSEC) [address] [facility] QTc [address] [facility] P Westfir [address] [facility] R Westfir -[address] [facility] T [place]fir [address] [facility] Diagnosis Sinus rhythm with sinus arrhythmia with short MT Left axis deviation Left ventricular hypertrophy ( Romhilt-Pierce ) Cannot rule out Septal infarct (cited on 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-FEB-2025) ST & T wave abnormality, consider lateral ischemia Abnormal ECG When compared with ECG of 22-FEB-2025 01:51, (unconfirmed) Sinus rhythm has replaced Atrial fibrillation Confirmed by HARJINDER HANDY M.D ([id number]) on 03/05/2025 11:42:[address] [facility] 02/22/2025 9:14 AM CDT 03/05/2025 11:42 AM CDT us Jaimie Giordano MD ECG ORDERABLES Victoria l Result [facility] * (ABNORMAL) Troponin I high-sensitivity 4-hour (02/22/2025 6:24 AM CDT) Trop I hs 1,868(C) <=17 ng/L Comment: Previous critical value noted within 48 hours ago. Interpretive Data For further hscTnI resources including the diagnostic algorithm and an aid in interpretation, copy and paste this link: [email or web address]/[email or web address] Current Interpretive Data last revised 2020. Trop I hs pct delta -19(C) % [facility] Comment:Previous critical va lue noted within 48 hours ago. Trop I hs interp Significa nt(C) [facility] Comment:Previous critical va lue noted within 48 hours ago. Blood 02/22/2025 6:24 AM CDT 02/22/2025 6:48 AM CDT Milton Rubio MD LAB BLOOD ORDERABLES Final Resul t Performing Organization Address [facility] Co de Phone Number [facility] [place] [address] * (ABNORMAL) Troponin I high-sensitivity 2-hour (02/22/2025 4:51 AM CDT) Trop I hs 2,146(C) <=17 ng/L Comment: Previous critical value noted within 48 hours ago. Interpretive Data For further hscTnI resources including the diagnostic algorithm and an aid in interpretation, copy and paste this link: [email or web address]/[email or web address] Current Interpretive Data last revised 2020. Trop I hs pct delta -7 % [facility] Trop I hs interp Equivocal [facility] Blood 02/22/2025 4:51 AM CDT 02/22/2025 5:26 AM CDT Milton Rubio MD LAB BLOOD ORDERABLES Final Resul t Performing Organization Address [facility] [place] [address] * (ABNORMAL) aPTT (02/22/2025 4:51 AM CDT) [...] ORDERABLES Final Resul t Performing Organization Address [facility] de Phone Number [facility] [place] [address] * Infection Prevention Anthony auris PCR, surveillance Axilla/Groin (02/22/2025 2:05 AM CDT) Anthony auris DNA Not Detected Not Detected [facility] Comment: Interpretive Data Testing performed by [facility] Molecular Infectious Disease Laboratory using the Pablo estelle 6800 Anthony auris assay. This assay detects DNA from Anthony auris using Real-Time PCR. This assay is laboratory developed and is not cleared by the [facility] Food and Drug Administration. The performance characteristics have been verified by the [facility] Molecular Infectious Disease Laboratory. Axilla/Groin 02/22/2025 2:05 AM CDT 02/22/2025 3:14 AM CDT Narrative [facility] - 02/22/2025 2:38 PM CDT Order placed by [facility] due to ring surveillance. Instant Order Generic Provider LAB MICROBIOLOGY - GENERAL ORDERABLES Final Result Performing Organization Address [facility] Co de Phone Number [facility] [place] [address] [facility] * (ABNORMAL) Troponin I high-sensitivity series [...] LAB BLOOD ORDERABLES Final Resul t [facility] [place] [address] * (ABNORMAL) eGFR (02/22/2025 2:05 AM CDT) [...] ORDERABLES Final Resul t Performing Organization Address City/[facility] Co de Phone Number [facility] [place] [address] * Magnesium (02/22/2025 2:05 AM CDT) Pathologist [facility] Magnesium 2.5 1.4 - 2.5 mg/dL Blood 02/22/2025 2:05 AM CDT 02/22/2025 2:58 AM CDT us Milton Rubio MD LAB BLOOD ORDERABLES Final Resul t Performing Organization Address [facility] de Phone Number [facility] [place] [address] * (ABNORMAL) Comprehensive metabolic panel (02/22/2025 2:05 AM CDT) Sodium 138 135 - 145 mmol/L Potassium, pl 4.3 3.3 - 4.9 mmol/L [facility] Chloride 95(L) 97 - 110 mmol/L [facility] CO2 26 22 - 32 mmol/L [facility] Anion gap 17(H) 2 - 15 mmol/L [facility] BUN 55(H) 6 - 25 mg/dL [facility] Creatinine 12.63(H) 0.60 - 1.10 mg/dL [facility] Glucose 99 70 - 199 mg/dL [facility] Comment: Interpretive Data Fasting glucose >/= [...] Calcium 8.1(L) 8.5 - 10.3 mg/dL [facility] Bilirubin, total 0.2 0.1 - 1.2 mg/dL [facility] Protein, pl 6.0(L) 6.5 - 8.5 g/dL [facility] Albumin 2.6(L) 3.5 - 5.0 g/dL [facility] Alk phos 59 40 - 130 Units/L [facility] ALT 14 7 - 45 Units/L [facility] AST 20 10 - 45 Units/L [facility] Blood 02/22/2025 2:05 AM CDT 02/22/2025 2:58 AM CDT us Milton Rubio MD LAB BLOOD ORDERABLES Final Resul t [facility] [place] [address] * ECG 12 lead (02/22/2025 1:45 AM CDT) Ventricular Rate EKG/Min [address] [facility] QRS-Interval (MSEC) [address] [facility] QT-Interval (MSEC) [address] [facility] QTc [address] [facility] R Westfir -[address] [facility] T [place]fir [address] [facility] Diagnosis Age and gender specific ECG analysis Sinus tachycardia Anteroseptal ST-elevation Poor R-wave progression in the precordial leads Left axis deviation Minimal voltage criteria for LVH, may be normal variant ( [place] product ) Anteroseptal infarct , possibly acute T wave abnormality, consider lateral ischemia Abnormal ECG No previous ECGs available Confirmed by HARJINDER HANDY M.D ([id number]) on 02/23/2025 3:10:[address] [facility] 02/22/2025 1:45 AM CDT 02/23/2025 3:10 PM CDT us Jaimie Giordano MD ECG ORDERABLES Victoria l Result [facility] * (ABNORMAL) eGFR (02/21/2025 8:31 PM CDT) [...] MD LAB BLOOD ORDERABLES Final Result [facility] [place] [address] * Critical Result Callback Chemistry (02/21/2025 8:31 PM CDT) Date Notified [id number] Time Notified 2153 [facility] TestName Calcium [facility] Called/Read Back Jose BARNES [facility] Credentials RN [facility] Called By PD [facility] Blood 02/21/2025 8:31 PM CDT 02/21/2025 9:23 PM CDT us Jaimie Giordano MD LAB BLOOD ORDERABLES Final Result Performing Organization Address [facility] de Phone Number [facility] [place] [address] * Critical Result Callback Chemistry (02/21/2025 8:31 PM CDT) Date Notified [id number] Time Notified 2128 [facility] TestName Ca Ionized [facility] Called/Read Back Parminder B[facility]ES [facility] Credentials RN [facility] Called By PD [facility] Blood 02/21/2025 8:31 PM CDT 02/21/2025 9:00 PM CDT Ellie Sarkar MD LAB BLOOD ORDERABLES Fin al Result Performing Organization Address [facility] de Phone Number [facility] [place] [address] * (ABNORMAL) Calcium, ionized (02/21/2025 8:31 PM CDT) Calcium, Ionized 3.17(C) 4.50 - 5.10 mg/dL Blood 02/21/2025 8:31 PM CDT 02/21/2025 9:00 PM CDT us Ellie Sarkar MD LAB BLOOD ORDERABLES Fin al Result Performing Organization Address [facility] de Phone Number [facility] [place] [address] * (ABNORMAL) aPTT (02/21/2025 8:31 PM CDT) aPTT 52(H) 28 - 38 sec Comment: Interpretive Data Heparin therapeutic range: 66.0 - 100.0 seconds. Range based on correlation with therapeutic heparin activity range of 0.3 - 0.7 Units/mL. Current interpretive data was last revised on 2023. Blood 02/21/2025 8:31 PM CDT 02/21/2025 9:05 PM CDT Marie [facility] - 02/21/2025 9:15 PM CDT STAT [...] MD LAB BLOOD ORDERABL ES Final Result [facility] [place] [address] * (ABNORMAL) Phosphorus (02/21/2025 8:31 PM CDT) Pathologist [facility] Phosphorus, pl 8.4(H) 2.3 - 4.5 mg/dL Blood 02/21/2025 8:31 PM CDT 02/21/2025 9:00 PM CDT Jaimie Giordano MD LAB BLOOD ORDERABLES Final Result [facility] [place] [address] * Magnesium (02/21/2025 8:31 PM CDT) [facility] Magnesium 2.4 1.4 - 2.5 mg/dL Blood 02/21/2025 8:31 PM CDT 02/21/2025 9:00 PM CDT us Jaimie Giordano MD LAB BLOOD ORDERABLES Final Result [facility] [place] [address] * (ABNORMAL) Basic metabolic panel (02/21/2025 8:31 PM CDT) [facility] Sodium 139 135 - 145 mmol/L Potassium, pl 4.6 3.3 - 4.9 mmol/L [facility] Chloride 94(L) 97 - 110 mmol/L [facility] CO2 27 22 - 32 mmol/L [facility] Anion gap 18(H) 2 - 15 mmol/L [facility] BUN 53(H) 6 - 25 mg/dL [facility] Creatinine 12.82(H) 0.60 - 1.10 mg/dL [facility] Glucose 82 70 - 199 mg/dL [facility] Comment: Interpretive Data Fasting glucose >/= [...] Calcium 6.4(C) 8.5 - 10.3 mg/dL [facility] Blood 02/21/2025 8:31 PM CDT 02/21/2025 9:00 PM CDT us Jaimie Giordano MD LAB BLOOD ORDERABLES Final Result Performing Organization Address City/[facility]/ZIP Co de Phone Number [facility] [place] [address] * (ABNORMAL) aPTT (02/21/2025 11:39 AM CDT) [...] ORDERABLES Final Resul t Performing Organization Address [facility] Co de Phone Number [facility] [place] [address] * (ABNORMAL) Troponin I high-sensitivity (02/21/2025 8:42 [...] ORDERABLES Fin al Result Performing Organization Address [facility] Co de Phone Number [facility] [place] [address] * Thyroid Function [place] (02/21/2025 8:42 AM CDT) TSH 1.88 0.30 - 4.20 mcIUnit/mL Blood 02/21/2025 8:42 AM CDT 02/21/2025 9:24 AM CDT Ellie Sarkar MD LAB BLOOD ORDERABLES Fin al Result Performing Organization Address [facility] Co de Phone Number [facility] Department [place] [address] * (ABNORMAL) Troponin I high-sensitivity 6-hour (02/21/2025 4:51 AM CDT) Trop I hs 3,175(C) <=17 ng/L Comment: Previous critical value noted within 48 hours ago. Interpretive Data For further hscTnI resources including the diagnostic algorithm and an aid in interpretation, copy and paste this link: https://bjhlab.testcatalog.org/show/hsTrop-1 Current Interpretive Data last revised 2020. Trop I hs pct delta -25(C) % [facility] Comment:Previous critical va lue noted within 48 hours ago. Trop I hs interp Significa nt(C) [facility] Comment:Previous critical va lue noted within 48 hours ago. Blood 02/21/2025 4:51 AM CDT 02/21/2025 5:32 AM CDT Jaimie Giordano MD LAB BLOOD ORDERABLES Final Result Performing Organization Address [facility] de Phone Number [facility] [place] [address] * (ABNORMAL) aPTT (02/21/2025 4:51 AM CDT) [...] ORDERABLES Final Resul t Performing Organization Address [facility] Co de Phone Number [facility] [place] [address] * (ABNORMAL) Troponin I high-sensitivity 4-hour (02/21/2025 2:18 AM CDT) Trop I hs 2,937(C) <=17 ng/L Comment: Previous critical value noted within 48 hours ago. Interpretive Data For further hscTnI resources including the diagnostic algorithm and an aid in interpretation, copy and paste this link: https://bjhlab.testcatalog.org/show/hsTrop-1 Current Interpretive Data last revised 2020. Trop I hs pct delta -31(C) % [facility] Comment:Previous critical va lue noted within 48 hours ago. Trop I hs interp Significa nt(C) [facility] Comment:Previous critical va lue noted within 48 hours ago. Blood 02/21/2025 2:18 AM CDT 02/21/2025 2:49 AM CDT Jaimie Giordano MD LAB BLOOD ORDERABLES Final Result Performing Organization Address [facility] de Phone Number [facility] [place] [address] * Hepatitis C antibody Blood (01/28/2025 9:42 AM CDT) Pathologist [facility] Hep C Ab Nonreactive Nonreactive Comment:Antibodies to HCV no t detected. Does NOT exclude the possibility of recent exposure to HCV. Current interpretive data was last revised on 22 Blood 01/28/2025 9:42 AM CDT 01/28/2025 10:56 AM CDT Tamar Tang MD LAB MICROBIOLOGY - GENERAL ORD ERABLES Final Result Performing Organization Address [facility] Co de Phone Number [facility] [place] [address] from Last 3 Months or Most Recently Relevant to Health Maintenance Insurance [facility] CHO[facility] H[facility]/PPO Address: [address] [address] [place] [address] MEDICARE [facility] Address: [address] [address] [place] [address] [employer] [facility] CHOICE [facility]US [facility] H[facility]/PPO Address: [place] [address] [facility] [address] MEDICARE MEDICARE [facility] CHOICE [facility]US [facility] H[facility]/PPO Address: [address] [address] [place] [address] MEDICARE [address] [id number] Advance Directives For more information, please contact: [phone] * Full Code (Latest Code Status on [...] 10:59 AM 12/28/2024 9:10 AM Care Teams 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 Relationship Specialty Start Date End Date Pal Downey DO PCP - General Internal Medicine 01/25/21 Quinton Rowan MD Referring Physician Cardiology 01/09/19 Tami Flores, TONO [address] [address] Registered Nurse Guest Services Representative 01/25/21 Cricket Escalante MD [address] [facility] [address] [place] [address] Referring Physician Nephrology 03/24/21 Gael Sprague MD PhD [address] [address] Fellow Endocrinology Diabetes & Metabolism 03/24/21 Brad Turner MD [address] [address] Consulting Physician Obstetrics and Gynecology 03/24/21 Margarita Montoya MD [address] [id number] Consulting Physician Trauma Surgery 12/27/21 Luca Lott MD [address] [address] Consulting Physician Cardiology 08/03/22 Pb Galloway MD [address] [address] Cardiothoracic Surgery 05/25/24 Felipe Gerber MD [address] [address] Consulting Physician Cardiology 05/25/24
--- OUTSIDE RECORDS SUMMARY | 2025-05-24 19:08 | XMS_ITS | Encounter Summary ---
Author Organization [facility] [employer] [facility] Address [address] [place] [address] Phone Care Team Providers Care Plan Examiner Name Role Phone Quinton Rowan MD Unavailable Pal Downey DO Primary Care Provider [phone] Tami Flores RN Unavailable [phone] Cricket Escalante MD Unavailable Gael Sprague MD PhD Unavailable Brad Turner MD Unavailable Margarita Montoya MD Unavailable [phone] Luca Lott MD Unavailable Pb Galloway MD Unavailable Felipe Gerber MD Unavailable [phone] Claire Rosales [facility] Unavailable Encounter Details Date Type Department Care Team (Late st Contact Info) Description 05/12/[address] [facility] Cardiology [address] [facility] Advanced Medicine 8th [place] [address] [place] [address] Luca Lott MD [address] [place] [address] Social History Tobacco Use Types Packs/Day Years Used Date Smoking Tobacco: Former Cigarettes 1 20 0 04/01/1992 - 04/01/2012 Smokeless Tobacco: Never Alcohol Use Standard Drinks/Week Comments Yes 0 (1 standard drink = 0.6 oz pur e alcohol) occasional [facility] Utilities Answer Date Recorded In the past 12 months has e electric, gas, oil, or water [employer] threatened to shut off services in your home? Patient declined 05/10/2025 Social Connection and Isolation Panel [NHANES] A nswer Date Recorded In a typical week, how many times do you talk on the phone with family, friends, or neighbors? Patient declined 05/10/2025 How often do you get togethe r with friends or relatives? Patient declined 05/10/2025 How often do you attend orthodox or sabianist serv ices? 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 Okay to add on at noon if needed Thanks luca documented in this encounter Plan of Treatment Scheduled Procedures Name Priority Associated Diagnoses Date/Ti me TRANSPLANT KIDNEY ESRD (end stage renal disease) (HCC) documented as of this encounter Visit Diagnoses Not on filedocumented in this encounter Care Teams Plan Examiner Relationship Specialty Start Date End Date Pal Downey DO PCP - General Internal Medicine 01/25/21 Quinton Rowan MD Referring Physician Cardiology 01/09/19 Tami Flores RN [address] [address] Registered Nurse Supervisor Pile Driving 01/25/21 Cricket Escalante MD [address] [address] Referring Physician Nephrology 03/24/21 Gael Sprague MD PhD [address] [address] Fellow Endocrinology Diabetes & Metabolism 03/24/21 Brad Turner MD [address] [place] [address] Consulting Physician Obstetrics and Gynecology 03/24/21 Margarita Montoya MD [address] [place] [id number] Consulting Physician Trauma Surgery 12/27/21 Luca Lott MD [address] [address] Consulting Physician Cardiology 08/03/22 Pb Galloway MD [address] [address] Cardiothoracic Surgery 05/25/24 Felipe Gerber MD [address] [address] Consulting Physician Cardiology 05/25/24 Claire Rosales LCSW [address] [facility] Mailstop [phone] [place] [address] [employer] Outpatient Coal Pulverizer Operator 05/10/25 05/18/25 documented as of this encounter
--- OUTSIDE RECORDS SUMMARY | 2025-05-24 19:08 | XMS_ITS ---
Author Organization [facility] Address [address] [place] [address] Care Team Providers Care Baby Formula Mixer Name Role Phone Quinton Rowan MD Unavailable Pal Downey DO Primary Care Provider [phone] Tami Flores RN Unavailable Cricket Escalante MD Unavailable [phone] Gael Sprague MD PhD Unavailable Brad Turner MD Unavailable [phone] Margarita Montoya MD Unavailable Luca Medrano MD Unavailable Pb Galloway MD Unavailable Felipe Gerber MD Unavailable [phone] Dialysis Plan of Treatment Dialysis Prescription [...] 4:14 PM CDT Coronary artery disease involving port lions coronary artery of port lions heart without angina pectoris POCT ACTIVATED CLOTTING [...] - REMOTE Routine 04/23/2025 12:51 AM CDT EXTENDED/PRISON HOLTER PATCH (>48 HOURS UP TO 7 [...] no reactions Penicillins Anaphylaxis,Rash,Un known High 04/29/2015 Kzlopwq-Esv-Ouj Reductase Inhibitors Muscle pain Medium 02/20/2025 Trialed [...] - continue plavix, holding Apixaban for upcoming [facility] - hold metop succinate due to hypotension, previously held OP by cardiology - Repeat TTE owith EF 55-60%, cannot determine diastolic function, no wall motion abnormalities, normal RV, no paravalvular AR with mean gradient 10, severe TR, RSVP 45 - BNP elevated to 47,450 and troponin peak at 192 - EKG without ST segment changes - Dr. 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 [facility] [place] admit 04/22-04/24 for afib with work up TSH wnl, hyperkalemic, troponins flat. Reports palpitations stopped last week. Planned direct admission for amiodarone loading, however, patient is no longer wanting to complete this (patient has appropriate concerns about half-way side effects of Amio, particularly with her thyroid disease) - Home apixaban BID on hold until after [facility] - EP consulted -> recommended device interrogation, completed with known A.fib - Telemetry monitoring Assessment & Plan (05/06/2025 12:38 PM CDT): AT/AF burden 0.8% per device transmission. [facility] [place] admit 04/22-04/24 for afib with work up TSH wnl, hyperkalemic, troponins flat. Reports palpitations stopped last week. Planned direct admission for amiodarone loading, however, patient is no longer wanting to complete this (patient has appropriate concerns about terminal operations manager side effects of Amio, particularly with her thyroid disease) - Continue home apixaban BID - EP consulted -> recommended device interrogation (completed) and TTE - Telemetry monitoring Assessment & Plan (05/05/2025 5:31 PM CDT): AT/AF burden 0.8% per device transmission. [facility] admit 04/22-04/24 for afib with work up TSH wnl, hyperkalemic, troponins flat. Reports palpitations stopped last week. Planned direct admission for amiodarone loading, however, patient is no longer wanting to complete this - Continue home apixaban BID - EP consulted -> recommended device interrogation (completed) and TTE - Telemetry monitoring Assessment & Plan (05/04/2025 10:43 PM CDT): AT/AF burden 0.8% per device transmission. [facility] admit 04/22-04/24 for afib with work up [...] by severe paravalvular leak with subsequent TAVR Aleixs with 30 mm Brown 3 ultra on [...] (02/01/2022): Added automatically from request for surgery [id number] Assessment & Plan (02/05/2025 3:15 PM CDT): Undergoing pre transplant evaluation. We will review with Dr. Medrano regarding possible candidacy for transplant list given recent interventions. Continued to DAPT Disorder of peritoneal dialysis catheter 022 Overview (12/22/2021): Added automatically from request for surgery [id number] Chronic kidney disease, stage V 10/31/2021 Overview (08/21/2023): Added automatically from request for surgery [id number] Sick sinus syndrome 11/02/2020 Assessment & Plan [...] Assessment & Plan (02/25/2019 11:43 AM CDT): [facility] with 95% LAD lesion, had [...] Assessment & Plan (02/24/2019 9:29 AM CDT): [facility] with 95% LAD lesion, had [...] Assessment & Plan (02/20/2019 5:17 AM CDT): [facility] with 95% LAD lesion, had some RV dysfunction during AV repair and found to have RCA occlusion following LAD bypass - s/p IABP placement - CABG to LAD and LCA Assessment & Plan (02/19/2019 2:08 AM CDT): [facility] with 95% LAD lesion, had some RV dysfunction during AV repair and found to have RCA occlusion following LAD bypass - s/p IABP placement - CABG to LAD and LCA Assessment & Plan (02/17/2019 7:38 PM CDT): [facility] with 95% LAD lesion, had some RV dysfunction during AV repair and found to have RCA occlusion following LAD bypass - s/p IABP placement - CABG to LAD and LCA - on Epi and Milrinone, wean epi as above Assessment & Plan (02/16/2019 11:38 PM CDT): [facility] with 95% LAD lesion, had some RV dysfunction during AV repair and found to have RCA occlusion following LAD bypass - s/p IABP placement - CABG to LAD and LCA - on Epi and Milrinone of inotropy Assessment & Plan (02/11/2019 6:16 PM CDT): [facility] with 95% LAD lesion, had some RV dysfunction during AV repair and found to have RCA occlusion following LAD bypass - s/p IABP placement - CABG to LAD and LCA - on Epi and Milrinone of inotropy Assessment & Plan (02/08/2019 5:38 PM CDT): -Patient w/ chest pain/SOB along w/ significant troponin elevation -Plan for [facility] w/ possible PCI tomorrow pending [...] to 4.35 - valve team consulted, 02/09 [facility] with severe 1 vessel disease [...] (02/09/2019): Added automatically from request for surgery [id number] Assessment & Plan (05/17/2019 9:19 AM CDT): [...] (02/10/2019): Added automatically from request for surgery [id number] Assessment & Plan (05/07/2025 3:38 PM CDT): [...] - continue plavix, holding Apixaban for upcoming [facility] - hold metop succinate due to hypotension, previously held OP by cardiology - Repeat TTE owith EF 55-60%, cannot determine diastolic function, no wall motion abnormalities, normal RV, no paravalvular AR with mean gradient 10, severe TR, RSVP 45 - BNP elevated to 47,450 and troponin peak at 192 - EKG without ST segment changes - Dr. 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 On Repatha (last 04/11). 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 Escalante Continue lasix 40 [...] kidney disease, baseline Cr 2.4-2.6. F/b OSH leasing representative. Apparently discussions for potential need for renal txp being discussed. - Cr at baseline on adm - avoid nephrotoxins, renally dose meds - continue calcitriol 0.5 mcg/day - Cr 2.75, received pre-cath hydration, stable 2.7 Headache 05/02/2016 Moderate COPD (chronic obstr uctive pulmonary disease) ([facility]) 11/02/2015 Assessment & Plan (05/07/2025 3:38 PM [...] CDT): Alexis TAVR 05/21 Followed by [facility], Dr. Medrano. CT TAVR on [...] not a candidate for intervention (declined by [facility], [facility]) Assessment & Plan (05/17/2019 [...] AV. Referred to valve team by primary booth cleaner Dr. Rowan. Seen 02/02 by valve team [...] = 0.6 oz pur e alcohol) occasional [facility] Utilities Answer Date Recorded In [...] declined 05/10/2025 How often do you attend christianity or catholic serv ices? 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 Previous collection date/time: 17:32:00. Imm gran abs 0.02 0.00 - 0.10 K/cumm [facility] Comment:Collection date/time has been modified to: 18:30:00. Previous collection date/time: 17:32:00. Lymphocyte abs 0.83 0.80 - 3.30 K/cumm [facility] Comment:Collection date/time has been modified to: 18:30:00. Previous collection date/time: 17:32:00. Monocyte abs 0.28 0.20 - 0.80 K/cumm [facility] Comment:Collection date/time has been modified to: 18:30:00. Previous collection date/time: 17:32:00. Eosinophil abs 0.19 0.00 - 0.50 K/cumm [facility] Comment:Collection date/time has been modified to: 18:30:00. Previous collection date/time: 17:32:00. Basophil abs 0.02 0.00 - 0.10 K/cumm [facility] Comment:Collection date/time has been modified to: 18:30:00. Previous collection date/time: 17:32:00. Neutrophil pct 76.1 % [facility] Comment: Collection date/time has been modified to: 18:30:00. Previous collection date/time: 17:32:00. Interpretive Data Percent cell count reference ranges are not reported, since discordance with absolute values may lead to misinterpretation of CBC data. Current Interpretive Data was last revised on 2018. Imm gran pct 0.4 % [facility] Comment: Collection date/time has been modified to: 18:30:00. Previous collection date/time: 17:32:00. Interpretive Data Percent cell count reference ranges are not reported, since discordance with absolute values may lead to misinterpretation of CBC data. Current Interpretive Data was last revised on 2018. Lymphocyte pct 14.7 % [facility] Comment: Collection date/time has been modified to: 18:30:00. Previous collection date/time: 17:32:00. Interpretive Data Percent cell count reference ranges are not reported, since discordance with absolute values may lead to misinterpretation of CBC data. Current Interpretive Data was last revised on 2018. Monocyte pct 5.0 % [facility] Comment: Collection date/time has been modified to: 18:30:00. Previous collection date/time: 17:32:00. Interpretive Data Percent cell count reference ranges are not reported, since discordance with absolute values may lead to misinterpretation of CBC data. Current Interpretive Data was last revised on 2018. Eosinophil pct 3.4 % [facility] Comment: Collection date/time has been modified to: 18:30:00. Previous collection date/time: 17:32:00. Interpretive Data Percent cell count reference ranges are not reported, since discordance with absolute values may lead to misinterpretation of CBC data. Current Interpretive Data was last revised on 2018. Basophil pct 0.4 % [facility] Comment: Collection date/time has been modified to: 18:30:00. Previous collection date/time: 17:32:00. Interpretive Data Percent cell count reference ranges are not reported, since discordance with absolute values may lead to misinterpretation of CBC data. Current Interpretive Data was last revised on 2018. Blood 05/11/2025 6:30 PM CDT 05/11/2025 6:39 PM CDT Luca Medrano MD LAB BLOOD ORDERABLES Edited Result - Final [facility] Department [place] [address] * (ABNORMAL) CBC with auto differential (05/11/2025 6:30 PM CDT) WBC 5.64 3.80 - 9.90 K/cumm Comment:Collection date/time has been modified to: 18:30:00. Previous collection date/time: 17:32:00. Hgb 11.5(L) 11.9 - 15.5 g/dL [facility] Comment:Collection date/time has been modified to: 18:30:00. Previous collection date/time: 17:32:00. Hct 36.8 35.6 - 45.5 % [facility] Comment:Collection date/time has been modified to: 18:30:00. Previous collection date/time: 17:32:00. Plt 158 150 - 400 K/cumm [facility] Comment:Collection date/time has been modified to: 18:30:00. Previous collection date/time: 17:32:00. MPV 10.7 9.1 - 12.3 fL [facility] Comment:Collection date/time has been modified to: 18:30:00. Previous collection date/time: 17:32:00. RBC 3.94 3.90 - 5.20 M/cumm [facility] Comment:Collection date/time has been modified to: 18:30:00. Previous collection date/time: 17:32:00. MCV 93.4 81.3 - 96.4 fL [facility] Comment:Collection date/time has been modified to: 18:30:00. Previous collection date/time: 17:32:00. MCH 29.2 27.1 - 33.3 pg [facility] Comment:Collection date/time has been modified to: 18:30:00. Previous collection date/time: 17:32:00. MCHC 31.3(L) 32.3 - 35.7 g/dL [facility] Comment:Collection date/time has been modified to: 18:30:00. Previous collection date/time: 17:32:00. RDW CV 16.3(H) 11.1 - 14.9 % [facility] Comment:Collection date/time has been modified to: 18:30:00. Previous collection date/time: 17:32:00. RDW SD 55.2(H) 35.7 - 48.1 fL [facility] Comment:Collection date/time has been modified to: 18:30:00. Previous collection date/time: 17:32:00. NRBC abs 0.00 0.00 - 0.01 K/cumm [facility] Comment:Collection date/time has been modified to: 18:30:00. Previous collection date/time: 17:32:00. Blood 05/11/2025 6:30 PM CDT 05/11/2025 6:39 PM CDT Luca Medrano MD LAB BLOOD ORDERABLES Edited Result - Final [facility] Department [place] [address] * (ABNORMAL) Basic metabolic panel (05/11/2025 6:30 PM CDT) Sodium 134(L) 135 - 145 mmol/L Potassium, pl 5.4(H) 3.3 - 4.9 mmol/L [facility] Chloride 96(L) 97 - 110 mmol/L [facility] CO2 26 22 - 32 mmol/L [facility] Anion gap 12 2 - 15 mmol/L [facility] BUN 57(H) 6 - 25 mg/dL [facility] Creatinine 13.94(H) 0.60 - 1.10 mg/dL [facility] Glucose 114 70 - 199 mg/dL [facility] Comment: Interpretive Data Fasting glucose [...] 2022. Calcium 8.3(L) 8.5 - 10.3 mg/dL [facility] Blood 05/11/2025 6:30 PM CDT 05/11/2025 6:39 PM CDT us Luca Medrano MD LAB BLOOD ORDERABLES Final R esult Performing Organization Address City/[facility]/ZIP Co de Phone Number [facility] Department [place] [address] * LEFT HEART CATHETERIZATION WITH CORONARY ANGIOGRAPHY [...] 54 y.o. female : 1970 MR number: [id number] Date of Service: 05/11/2025 Motorcycle Maker: Luca Medrano MD Fellow: Rio Jacobs MD [...] obtained. The patient was brought to the geophysical laboratory supervisor and placed on the table Bilateral groins [...] coronary artery angiogram performed using a 6 Latvian JL 3 guide Percutaneous coronary intervention performed on the Proximal vein graft to the LAD. This was an ACC/AHA Type C. Initial Lesion Length 12mm and final lesion Length 12mm. Initial KAROLINA Flow 3 Final KAROLINA Flow 3. Equipment used: 6 3D RC [place] Hettinger IVUS Catheter, Fast Food Manager 50 wire, 0.9 mm laser atherectomy catheter [...] got the guide to sit and a Fast Food Manager 50 wire down into the LAD. Next [...] 284(H) 123 - 168 sec POC Performer [id number] [facility] POC Device Number [id number] [facility] Blood 05/11/2025 4:12 PM CDT 05/11/2025 4:12 PM CDT Luca Medrano MD LAB POCT ORDERABLES - DEVICE Final Result Performing Organization Address [facility] de Phone Number [facility] Department [place] [address] * (ABNORMAL) POCT Activated clotting time, low range (05/11/2025 3:50 PM CDT) ACT 290(H) 123 - 168 sec POC Performer [id number] [facility] POC Device Number [id number] [facility] Blood 05/11/2025 3:50 PM CDT 05/11/2025 3:50 PM CDT Luca Medrano MD LAB POCT ORDERABLES - DEVICE Final Result Performing Organization Address City/[facility] Co de Phone Number [facility] Department [place] [address] * (ABNORMAL) Potassium, whole blood (05/11/2025 12:00 PM CDT) [facility] Potassium, bld 5.0(H) 3.3 - 4.9 mmol/L Blood 05/11/2025 12:0 0 PM CDT 05/11/2025 12:12 PM CDT Kasi Garcia COMPLIANCE MANAGER LAB BLOOD ORDERABLES F inal Result Performing Organization Address [facility] Co de Phone Number [facility] [place] [address] * (ABNORMAL) POC Blood Gas and Chemistries, Arterial - (05/11/2025 11:46 AM CDT) [facility] K POC 5.5(H) 3.3 - 4.9 [...] DEVICE Final Result Performing Organization Address [facility] [place] [address] * TRANSTHORACIC ECHO (TTE) COMPLETE W DOPPLER/CF W CONTRAST (05/07/2025 10:16 AM CDT) [facility] Estimated EF 55-60 % CONS SCIMAGE Anatomical Region Laterality Modality Ultrasound 05/06/2025 3:39 PM CDT Narrative 05/06/2025 6:28 PM CDT [facility] [place] [address] Transthoracic Echocardiographic Report Patient Name: ESTUARDO COPELAND M : 1970 (54y 5m) Gender: F Study Date: 05/06/2025 03:39:15 PM Ht(Inch): 64 Wt(Lb): 132.94 BSA: 1.65 Bit Sharpener: Brad Tripathi [facility] Location: [id number] Order Provider: ASHLEY CHAHAL Heart Rate: 65 [...] Procedure Note Job Gordon MD - 05/06/2025 [facility] [place] [address] Transthoracic Echocardiographic Report Patient Name: ESTUARDO COPELAND M : 1970 (54y 5m) Gender: F Study Date: 05/06/2025 03:39:15 PM Ht(Inch): 64 Wt(Lb): 132.94 BSA: 1.65 Bit Sharpener: Brad Tripathi [facility] Location: [id number] Order Provider: ASHLEY CHAHAL Heart Rate: 65 [...] cm/m2 [ 1.00 - 2.00 ] MV UCC183.27 msec [ 20.00 - 100.00 ] Asc Ao Diam 2D 1.63 cm MVA PHT2.11 cm2 Asc Ao Index 0.99 cm/m2 MV Decel Nyii004.23 msec [ 104.00 - 258.00 ] Med [...] MD LAB BLOOD ORDERAB LES Final Result [facility] Department [place] [address] * (ABNORMAL) Vitamin D 25 hydroxy (05/07/2025 6:17 AM CDT) Pathologist [facility] Vitamin D 25-OH 22(L) 30 - 80 ng/mL Blood 05/07/2025 6:17 AM CDT 05/07/2025 6:55 AM CDT Ashley Chahal MD LAB BLOOD ORDERAB LES Final Result [facility] [place] [address] * (ABNORMAL) CBC without differential (05/07/2025 6:17 AM CDT) [facility] WBC 6.90 3.80 - 9.90 K/cumm Hgb 12.4 11.9 - 15.5 g/dL [facility] Hct 39.1 35.6 - 45.5 % [facility] Plt 157 150 - 400 K/cumm [facility] MPV 10.4 9.1 - 12.3 fL [facility] RBC 4.19 3.90 - 5.20 M/cumm [facility] MCV 93.3 81.3 - 96.4 fL [facility] MCH 29.6 27.1 - 33.3 pg [facility] MCHC 31.7(L) 32.3 - 35.7 g/dL [facility] RDW CV 16.6(H) 11.1 - 14.9 % [facility] RDW SD 56.4(H) 35.7 - 48.1 fL [facility] NRBC abs 0.00 0.00 - 0.01 K/cumm [facility] Blood 05/07/2025 6:17 AM CDT 05/07/2025 6:55 AM CDT us Ashley Chahal MD LAB BLOOD ORDERAB LES Final Result [facility] [place] [address] * (ABNORMAL) PTH (05/07/2025 6:17 AM CDT) Pathologist [facility] PTH 9(L) 15 - 65 pg/mL Blood 05/07/2025 6:17 AM CDT 05/07/2025 6:55 AM CDT us Ashley Chahal MD LAB BLOOD ORDERAB LES Final Result [facility] [place] [address] * (ABNORMAL) Renal function panel (05/07/2025 6:17 AM CDT) Pathologist [facility] Sodium 136 135 - 145 mmol/L Potassium, pl 5.1(H) 3.3 - 4.9 mmol/L [facility] Chloride 96(L) 97 - 110 mmol/L [facility] CO2 27 22 - 32 mmol/L [facility] Anion gap 13 2 - 15 mmol/L [facility] BUN 52(H) 6 - 25 mg/dL [facility] Creatinine 14.17(H) 0.60 - 1.10 mg/dL [facility] Glucose 86 70 - 199 mg/dL [facility] Comment: Interpretive Data Fasting glucose [...] 2022. Calcium 8.8 8.5 - 10.3 mg/dL [facility] Phosphorus, pl 9.9(H) 2.3 - 4.5 mg/dL [facility] Albumin 2.8(L) 3.5 - 5.0 g/dL [facility] Blood 05/07/2025 6:17 AM CDT 05/07/2025 6:55 AM CDT us Ashley Chahal MD LAB BLOOD ORDERAB LES Final Result [facility] Department [place] [address] * Cortisol (05/06/2025 8:36 AM CDT) [facility] Cortisol 11.7 4.8 - 19.5 mcg/dL Comment: Interpretive Data: Morning hours 6-10 a.m. 4.8 - 19.5 mcg/dL Afternoon hours 4-8 p.m. 2.5 - 11.9 mcg/dL This analyte undergoes marked diurnal variation. Current interpretive data was last revised 24. Blood 05/06/2025 8:36 AM CDT 05/06/2025 9:27 AM CDT us Ashley Chahal MD LAB BLOOD ORDERAB LES Final Result Performing Organization Address City/[facility]/ZIP Co de Phone Number [facility] [place] [address] * (ABNORMAL) eGFR (05/06/2025 3:41 AM CDT) [...] ORDERAB LES Final Result Performing Organization Address City/[facility]/ZIP Co de Phone Number [facility] [place] [address] * (ABNORMAL) Magnesium (05/06/2025 3:41 AM CDT) Magnesium 2.7(H) 1.4 - 2.5 mg/dL Blood 05/06/2025 3:41 AM CDT 05/06/2025 4:14 AM CDT us Ashley Chahal MD LAB BLOOD ORDERAB LES Final Result [facility] Department [place] [address] * (ABNORMAL) Renal function panel (05/06/2025 3:41 AM CDT) Pathologist [facility] Sodium 136 135 - 145 mmol/L Potassium, pl 4.9 3.3 - 4.9 mmol/L [facility] Chloride 97 97 - 110 mmol/L [facility] CO2 25 22 - 32 mmol/L [facility] Anion gap 14 2 - 15 mmol/L [facility] BUN 56(H) 6 - 25 mg/dL [facility] Creatinine 14.58(H) 0.60 - 1.10 mg/dL [facility] Glucose 107 70 - 199 mg/dL [facility] Comment: Interpretive Data Fasting glucose [...] Calcium 9.0 8.5 - 10.3 mg/dL [facility] Phosphorus, pl 10.0(H) 2.3 - 4.5 mg/dL [facility] Albumin 2.7(L) 3.5 - 5.0 g/dL [facility] Blood 05/06/2025 3:41 AM CDT 05/06/2025 4:14 AM CDT us Ashley Chahal MD LAB BLOOD ORDERAB LES Final Result Performing Organization Address [facility]/ZIP Co de Phone Number [facility] [place] [address] * (ABNORMAL) Troponin I high-sensitivity 6-hour (05/05/2025 11:37 AM CDT) Trop I hs 172(H) <=17 ng/L Comment: Previous critical value noted within 48 hours ago. Interpretive Data For further hscTnI resources including the diagnostic algorithm and an aid in interpretation, copy and paste this link: [email or web address] Current Interpretive Data last revised 2020. Trop I hs pct delta -11 % [facility] Trop I hs interp Equivocal [facility] Blood 05/05/2025 11:3 7 AM CDT 05/05/2025 12:24 PM CDT us Jacqueline Jules MD LAB BLOOD ORDER [place] Final Result Performing Organization Address City/[facility] Co de Phone Number [facility] Department [place] [address] * (ABNORMAL) Troponin I high-sensitivity 4-hour (05/05/2025 9:06 AM CDT) Trop I hs 189(H) <=17 ng/L Comment: Interpretive Data For further hscTnI resources including the diagnostic algorithm and an aid in interpretation, copy and paste this link: [email or web address]/[email or web address] Current Interpretive Data last revised 2020. Trop I hs pct delta -3 % [facility] Trop I hs interp Insignificant [facility] Blood 05/05/2025 9:06 AM CDT 05/05/2025 9:54 AM CDT us Jacqueline Jules MD LAB BLOOD ORDER [place] Final Result Performing Organization Address [facility] Co de Phone Number [facility] [place] [address] * (ABNORMAL) Troponin I high-sensitivity 2-hour (05/05/2025 6:36 AM CDT) Trop I hs 192(H) <=17 ng/L Comment: Interpretive Data For further hscTnI resources including the diagnostic algorithm and an aid in interpretation, copy and paste this link: [email or web address]/show/[email or web address] Current Interpretive Data last revised 2020. Trop I hs pct delta -1 % [facility] Trop I hs interp Insignificant [facility] Blood 05/05/2025 6:36 AM CDT 05/05/2025 8:08 AM CDT us Jacqueline Jules MD LAB BLOOD ORDER [place] Final Result Performing Organization Address [facility] de Phone Number [facility] Department [place] [address] * (ABNORMAL) Troponin I high-sensitivity series (baseline, 2hr, 4hr, 6hr) (05/05/2025 4:48 AM CDT) Trop I hs 194(H) <=17 ng/L Comment: Interpretive Data For further hscTnI resources including the diagnostic algorithm and an aid in interpretation, copy and paste this link: [email or web address]/show/[email or web address] Current Interpretive Data last revised 2020. Blood 05/05/2025 4:48 AM CDT 05/05/2025 5:03 AM CDT Jacqueline Jules MD LAB BLOOD ORDER [place] Final Result Performing Organization Address City/[facility]/ZIP Co de Phone Number [facility] Department [place] [address] * (ABNORMAL) eGFR (05/05/2025 4:48 AM CDT) [...] LAB BLOOD ORDER [place] Final Result [facility] [place] Department [place] [address] * (ABNORMAL) Pro B-type natriuretic peptide (05/05/2025 [...] LAB BLOOD ORDER [place] Final Result [facility] Department [place] [address] * (ABNORMAL) Thyroid Function [place] (05/05/2025 4:48 AM CDT) TSH 14.50(H) 0.30 - 4.20 mcIUnit/mL Blood 05/05/2025 4:48 AM CDT 05/05/2025 5:03 AM CDT Jacqueline Jules MD LAB BLOOD ORDER [place] Final Result [facility] Department [place] [address] * Protime-INR (05/05/2025 4:48 AM CDT) [facility] PT 12.4 9.7 - 13.0 sec INR 1.14 0.90 - 1.20 [facility] Comment: Interpretive data Oral anticoagulant therapeutic ranges: Venous thromboembolism prophylaxis or treatment: 2.0-3.0 CARDIOLOGY Standard range: 2.0-3.0 High-intensity range: 2.5-3.5 Refer to indication-specific guidelines for appropriate target ranges for prosthetic heart valve replacement. Current interpretive data was last revised on 2019. Blood 05/05/2025 4:48 AM CDT 05/05/2025 5:13 AM CDT Narrative [facility] - 05/05/2025 5:19 AM CDT Baseline prior to apixaban initiation. Jacqueline Jules MD LAB BLOOD ORDER [place] Final Result [facility] [place] Department [place] [address] * (ABNORMAL) CBC without differential (05/05/2025 4:48 AM CDT) [facility] WBC 5.83 3.80 - 9.90 K/cumm Hgb 11.8(L) 11.9 - 15.5 g/dL [facility] Hct 37.7 35.6 - 45.5 % [facility] Plt 131(L) 150 - 400 K/cumm [facility] MPV 10.9 9.1 - 12.3 fL [facility] RBC 4.00 3.90 - 5.20 M/cumm [facility] MCV 94.3 81.3 - 96.4 fL [facility] MCH 29.5 27.1 - 33.3 pg [facility] MCHC 31.3(L) 32.3 - 35.7 g/dL [facility] RDW CV 16.8(H) 11.1 - 14.9 % [facility] RDW SD 56.8(H) 35.7 - 48.1 fL [facility] NRBC abs 0.00 0.00 - 0.01 K/cumm [facility] Blood 05/05/2025 4:48 AM CDT 05/05/2025 5:04 AM CDT Jacqueline Jules MD LAB BLOOD ORDER [place] Final Result Performing Organization Address City/[facility] [place] [address] * (ABNORMAL) T4, free (05/05/2025 4:48 AM CDT) [facility] Free T4 0.70(L) 0.90 - 1.70 ng/dL Blood 05/05/2025 4:48 AM CDT 05/05/2025 5:03 AM CDT Narrative [facility] - 05/05/2025 6:23 AM CDT This test was reflexed from a TSH result. Jacqueline Jules MD LAB BLOOD ORDER [place] Edited Result - Final Performing Organization Address [facility] [place] [address] * (ABNORMAL) Phosphorus (05/05/2025 4:48 AM CDT) Pathologist [facility] Phosphorus, pl 11.7(H) 2.3 - 4.5 mg/dL Blood 05/05/2025 4:48 AM CDT 05/05/2025 5:03 AM CDT Jacqueline Jules MD LAB BLOOD ORDER [place] Final Result Performing Organization Address [facility] Co de Phone Number [facility] Department [place] [address] * (ABNORMAL) Magnesium (05/05/2025 4:48 AM CDT) Magnesium 2.9(H) 1.4 - 2.5 mg/dL Blood 05/05/2025 4:48 AM CDT 05/05/2025 5:03 AM CDT Jacqueline Jules MD LAB BLOOD ORDER [place] Final Result Performing Organization Address City/[facility]/ZIP Co de Phone Number [facility] Department [place] [address] * Bilirubin, direct (05/05/2025 4:48 AM CDT) Pathologist [facility] Bilirubin, direct <0.2 0.1 - 0.3 mg/dL Blood 05/05/2025 4:48 AM CDT 05/05/2025 5:03 AM CDT Jacqueline Jules MD LAB BLOOD ORDER [place] Final Result Performing Organization Address City/[facility] de Phone Number [facility] [place] [address] * (ABNORMAL) Comprehensive metabolic panel (05/05/2025 4:48 AM CDT) Pathologist [facility] Sodium 140 135 - 145 mmol/L Potassium, pl 5.1(H) 3.3 - 4.9 mmol/L [facility] Chloride 100 97 - 110 mmol/L [facility] CO2 24 22 - 32 mmol/L [facility] Anion gap 16(H) 2 - 15 mmol/L [facility] BUN 60(H) 6 - 25 mg/dL [facility] Creatinine 14.48(H) 0.60 - 1.10 mg/dL [facility] Glucose 91 70 - 199 mg/dL [facility] Comment: Interpretive Data Fasting glucose [...] Calcium 9.5 8.5 - 10.3 mg/dL [facility] Bilirubin, total 0.2 0.1 - 1.2 mg/dL [facility] Protein, pl 5.6(L) 6.5 - 8.5 g/dL [facility] Albumin 2.8(L) 3.5 - 5.0 g/dL [facility] Alk phos 71 40 - 130 Units/L [facility] ALT 9 7 - 45 Units/L [facility] AST 16 10 - 45 Units/L [facility] Blood 05/05/2025 4:48 AM CDT 05/05/2025 5:03 AM CDT [facility] Lacey Jules MD LAB BLOOD ORDER [place] Final Result [facility] [place] Department [place] [address] * XR Chest 1 View (05/04/2025 11:16 [...] it. Electronically signed by: Woodrow Dial M.D. [facility] Lacey Jules MD IMG XR PROCEDUR ES Final Result * ECG 12 lead (05/04/2025 8:59 PM CDT) Pathologist [facility] Ventricular Rate EKG/Min 82 BPM [facility] Atrial Rate 82 BPM [facility] DC-Interval (MSEC) 160 ms [facility] QRS-Interval (MSEC) 84 ms [facility] QT-Interval (MSEC) 368 ms [facility] QTc 429 ms [facility] P [place] -16 degrees [facility] R [place] -27 degrees [facility] T [place] 134 degrees [facility] Diagnosis Atrial-paced rhythm Minimal voltage criteria for LVH, may be normal variant ( Holbrook product ) Septal infarct (cited on or before 20-FEB-2025) T wave abnormality, consider lateral ischemia Abnormal ECG When compared with ECG of 22-FEB-2025 09:14, Electronic atrial pacemaker has replaced Sinus rhythm Confirmed by HARJINDER HANDY M.D ([id number]) on 05/05/2025 2:09:39 PM [facility] 05/04/2025 8:59 PM CDT 05/05/2025 2:09 PM CDT Jacqueline Jules MD ECG ORDERABLES Final Result [facility] * Cardiology Document Scan (04/24/2025 3:35 PM [...] appropriate. No short V-V intervals. Presenting Rhythm (DC) Atrial Sensing-Ventricular Sensing (-VS) --- /VS (SR) [...] andappropriate. No short V-V intervals. Presenting Rhythm (DC) Atrial Sensing-Ventricular Sensing (-VS) --- /VS (SR) [...] CV CARDIAC SERVICES PROCEDURES Final Result * Extended/Group Home Holter Patch (>48 hours up to 7 days) (04/20/2025 1:47 PM CDT) Anatomical Region Laterality Modality Electrocardiogra phy 04/27/2025 12:4 8 PM CDT Narrative 05/10/2025 1:47 PM CDT HOLTER MONITOR Patient Name: ESTUARDO COPELAND M : 1970 (54y 5m) Gender: F Study Date: 04/27/2025 12:48:59 PM Ht(Inch): Wt(Lb): BSA: Tech: Location: [facility] Order Provider: LUCA MEDRANO BMI: Ref Provider: LUCA MEDRANO PROCEDURES: Holter Report: EXTENDED/PRISON HOLTER PATCH (>48 HOURS UP TO 7 DAYS) [[id number]]. Enrollment Period: 2025-04-27 00:00:00 through 2025-04-29 00:00:00. Location: [facility]. INDICATIONS: R00.2 Palpitations. FINDINGS: Holter Data: Min [...] events Runs (VT): 6 events Total beats: 52348 SIGNIFICANT PAUSES: 0 >3 sec Protocol: Recording Duration (Ordered): 325147 Recording Duration (Actual): 90495.3 SUMMARY: *The predominant rhythm was Sinus with [...] The PDF can be found in the [facility] Patient chart. Please go to the Cardiology [...] PM Ht(Inch): Wt(Lb): BSA: Tech: Location: [facility] Order Provider: LUCA MEDRANO BMI: Ref Provider: LUCA MEDRANO PROCEDURES: Holter Report: EXTENDED/PRISON HOLTER PATCH (>48 HOURS UP TO 7 DAYS)[[id number]]. Enrollment Period: 2025-04-27 00:00:00 through 2025-04-29 00:00:00. Location: [facility]. INDICATIONS: R00.2 Palpitations. FINDINGS: Holter Data: Min [...] events Runs (VT): 6 events Total beats: 68497 SIGNIFICANT PAUSES: 0 >3 sec Protocol: Recording Duration (Ordered): 709779 Recording Duration (Actual): 24672.3 SUMMARY: *The predominant rhythm was Sinus with [...] The PDF can be found in the [facility] Patient chart. Please go to theCardiology tab, [...] 10:0 0 AM CDT Narrative HISTOTRAC - HEATING AND VENTILATING WORKER Sample received in lab. Single Antigen Antibody [...] a method developed and validated by the [facility] HLA laboratory based on an FDA-approved IVD kit (LABScreen Single-Antigen, [employer], [place], [place]). All patient serum samples are pretreated with EDTA before the screen to prevent complement interference. Additional serum treatments, such as adsorption and DTT treatment, may be performed as indicated. Interpretive comments: Low risk: MFI [id number]. Moderate risk: MFI [id number]. Increased risk: MFI >/= 5000. The presence [...] performed at the [facility], [address] [place] [address], 5th floor, [facility], [place], [address]. IA # [id number]. Rosa Millan, Ph.D., Warehouse And Receiving Supervisor, HLA Laboratory Wilmer Prescott M.D., Ph.D., Custom Tailor, HLA Laboratory Alma Payton, Ph.D., CLIA Custom Tailor, [facility] Current methodology and interpretive comments last revised on 11/15/2022. Salina Hector MD LAB BLOOD ORDERABLES Final Resul t [facility] * HLA Antibody Screen by PRA or SAB per Schedule (Class I and Class II) (03/01/2025 10:00 AM CDT) Blood 03/01/2025 10:0 0 AM CDT Narrative HISTOTRAC - HEATING AND VENTILATING WORKER Sample received in lab and stored. No testing performed at this time. Salina Hector MD LAB BLOOD ORDERABLES Final Resul t Performing Organization Address City/[facility]/ZIP Co de Phone Number [facility] * (ABNORMAL) [...] BLOOD ORDERABLES Final Result [facility] DOMINGUE[facility] [place] Department [place] [address] * (ABNORMAL) Differential, auto (02/24/2025 9:50 AM [...] 2018. Imm gran pct 0.3 % [facility] Comment: Interpretive Data Percent cell count reference ranges are not reported, since discordance with absolute values may lead to misinterpretation of CBC data. Current Interpretive Data was last revised on 2018. Lymphocyte pct 11.9 % [facility] Comment: Interpretive Data Percent cell count [...] BLOOD ORDERABLES Final Result Performing Organization Address City/[facility]/ZIP Co de Phone Number [facility] Department [place] [address] * (ABNORMAL) CBC with auto differential (02/24/2025 9:50 AM CDT) Pathologist [facility] WBC 6.14 3.80 - 9.90 K/cumm Hgb 12.5 11.9 - 15.5 g/dL [facility] Hct 39.5 35.6 - 45.5 % [facility] Plt 177 150 - 400 K/cumm [facility] MPV 10.8 9.1 - 12.3 fL [facility] RBC 4.37 3.90 - 5.20 M/cumm [facility] MCV 90.4 81.3 - 96.4 fL [facility] MCH 28.6 27.1 - 33.3 pg [facility] MCHC 31.6(L) 32.3 - 35.7 g/dL [facility] RDW CV 15.9(H) 11.1 - 14.9 % [facility] RDW SD 51.0(H) 35.7 - 48.1 fL [facility] NRBC abs 0.00 0.00 - 0.01 K/cumm [facility] Blood 02/24/2025 9:50 AM CDT 02/24/2025 10:17 AM CDT Dasha Montez DO LAB BLOOD ORDERABLES Final Result [facility] Department [place] [address] * (ABNORMAL) Basic metabolic panel (02/24/2025 9:50 AM CDT) Pathologist [facility] Sodium 136 135 - 145 mmol/L Potassium, pl 5.0(H) 3.3 - 4.9 mmol/L [facility] Chloride 93(L) 97 - 110 mmol/L [facility] CO2 27 22 - 32 mmol/L [facility] Anion gap 16(H) 2 - 15 mmol/L [facility] BUN 43(H) 6 - 25 mg/dL [facility] Creatinine 11.83(H) 0.60 - 1.10 mg/dL [facility] Glucose 82 70 - 199 mg/dL [facility] Comment: Interpretive Data Fasting glucose [...] 2022. Calcium 7.9(L) 8.5 - 10.3 mg/dL [facility] Blood 02/24/2025 9:50 AM CDT 02/24/2025 10:17 AM CDT Dasha Montez DO LAB BLOOD ORDERABLES Final Result [facility] [place] Department [place] [address] * (ABNORMAL) eGFR (02/23/2025 11:43 PM CDT) [...] MD LAB BLOOD ORDERABLES Final Result [facility] [place] Department [place] [address] * VerifyNow clopidogrel (02/23/2025 11:43 PM CDT) [facility] VerifyNow clopidogrel 208 PRU Comment: Interpretive [...] ORDERABLES Fin al Result Performing Organization Address City/[facility]/ZIP Co de Phone Number [facility] [place] [address] * (ABNORMAL) Phosphorus (02/23/2025 11:43 PM CDT) [facility] Phosphorus, pl 7.6(H) 2.3 - 4.5 mg/dL Blood 02/23/2025 11:4 3 PM CDT 02/24/2025 12:22 AM CDT us Jaimie Giordano MD LAB BLOOD ORDERABLES Final Result Performing Organization Address [facility] Co de Phone Number [facility] [place] [address] * Magnesium (02/23/2025 11:43 PM CDT) [facility] Magnesium 2.4 1.4 - 2.5 mg/dL Blood 02/23/2025 11:4 3 PM CDT 02/24/2025 12:22 AM CDT us Jaimie Giordano MD LAB BLOOD ORDERABLES Final Result Performing Organization Address [facility] Co de Phone Number [facility] [place] [address] * (ABNORMAL) Basic metabolic panel (02/23/2025 11:43 PM CDT) [facility] Sodium 133(L) 135 - 145 mmol/L Potassium, pl 4.9 3.3 - 4.9 mmol/L [facility] Chloride 95(L) 97 - 110 mmol/L [facility] CO2 27 22 - 32 mmol/L [facility] Anion gap 11 2 - 15 mmol/L [facility] BUN 52(H) 6 - 25 mg/dL [facility] Creatinine 11.94(H) 0.60 - 1.10 mg/dL [facility] Glucose 89 70 - 199 mg/dL [facility] Comment: Interpretive Data Fasting glucose [...] 2022. Calcium 8.0(L) 8.5 - 10.3 mg/dL [facility] Blood 02/23/2025 11:4 3 PM CDT 02/24/2025 12:22 AM CDT Jaimie Giordano MD LAB BLOOD ORDERABLES Final Result [facility] [place] Department [place] [address] * LEFT HEART CATHETERIZATION WITH CORONARY ANGIOGRAPHY [...] 54 y.o. female : 1970 MR number: [id number] Date of Service: 02/23/2025 Motorcycle Maker: Luca Medrano MD Fellow: Sanket Quiroz MD [...] vein graft to her LAD and her port lions left main. She now presents for urgent cardiac catheterization PROCEDURE: The risks, benefits and alternatives of the procedures and moderate sedation were explained to the patient and informed consent was obtained. The patient was brought to the geophysical laboratory supervisor and placed on the table Bilateral groins [...] the LAD angiogram performed using a 6 Latvian 3D RC Percutaneous coronary intervention performed on theSVG to the Proximal LAD. This was an ACC/AHA Type C. Initial Lesion Length 12mm and final lesion Length 20mm. Initial KAROLINA Flow 3 Final KAROLINA Flow 3. Equipment used: 6 3DRC, [place] Hettinger IVUS Catheter, Fast Food Manager 50 wire, 0.9 mm laser atherectomy catheter [...] it was extremely difficult. We used a Fast Food Manager 50 wire with extreme difficulty wire through [...] 319(H) 123 - 168 sec POC Performer [id number] [facility] POC Device Number [id number] [facility] Blood 02/23/2025 1:41 PM CDT 02/23/2025 1:41 PM CDT Ellie Saenz MD LAB POCT ORDERABLES - DE VICE Final Result Performing Organization Address [facility] Co de Phone Number [facility] Department [place] [address] * (ABNORMAL) POCT Activated clotting time, low range (02/23/2025 12:35 PM CDT) ACT 351(H) 123 - 168 sec POC Performer [id number] [facility] POC Device Number [id number] [facility] Blood 02/23/2025 12:3 5 PM CDT 02/23/2025 12:35 PM CDT Ellie Saenz MD LAB POCT ORDERABLES - DE VICE Final Result Performing Organization Address [facility] Co de Phone Number [facility] Department [place] [address] * (ABNORMAL) aPTT (02/23/2025 6:36 AM CDT) [facility] aPTT 80(H) 28 - 38 sec Comment: Interpretive Data Heparin therapeutic range: 66.0 - 100.0 seconds. Range based on correlation with therapeutic heparin activity range of 0.3 - 0.7 Units/mL. Current interpretive data was last revised on 2023. Blood 02/23/2025 6:36 AM CDT 02/23/2025 7:00 AM CDT us Heaven Lerner MD LAB BLOOD ORDERABLES Final Result Performing Organization Address City/[facility] Co de Phone Number [facility] [place] [address] * (ABNORMAL) eGFR (02/22/2025 11:07 PM CDT) [...] BLOOD ORDERABLES Final Result Performing Organization Address City/[facility]/ZIP Co de Phone Number [facility] Department [place] [address] * (ABNORMAL) aPTT (02/22/2025 11:07 PM CDT) [...] ORDERABLES Fin al Result Performing Organization Address [facility] Co de Phone Number [facility] Department [place] [address] * (ABNORMAL) Phosphorus (02/22/2025 11:07 PM CDT) Phosphorus, pl 7.2(H) 2.3 - 4.5 mg/dL Blood 02/22/2025 11:0 7 PM CDT 02/22/2025 11:50 PM CDT Jaimie Giordano MD LAB BLOOD ORDERABLES Final Result Performing Organization Address City/[facility] Co de Phone Number [facility] Department [place] [address] * Magnesium (02/22/2025 11:07 PM CDT) Magnesium 2.5 1.4 - 2.5 mg/dL Blood 02/22/2025 11:0 7 PM CDT 02/22/2025 11:50 PM CDT Jaimie Giordano MD LAB BLOOD ORDERABLES Final Result Performing Organization Address City/[facility]/ZIP Co de Phone Number [facility] Department [place] [address] * (ABNORMAL) Basic metabolic panel (02/22/2025 11:07 PM CDT) Sodium 134(L) 135 - 145 mmol/L Potassium, pl 4.5 3.3 - 4.9 mmol/L [facility] Chloride 95(L) 97 - 110 mmol/L [facility] CO2 28 22 - 32 mmol/L [facility] Anion gap 11 2 - 15 mmol/L [facility] BUN 56(H) 6 - 25 mg/dL [facility] Creatinine 11.97(H) 0.60 - 1.10 mg/dL [facility] Glucose 104 70 - 199 mg/dL [facility] Comment: Interpretive Data Fasting glucose [...] 2022. Calcium 7.8(L) 8.5 - 10.3 mg/dL [facility] Blood 02/22/2025 11:0 7 PM CDT 02/22/2025 11:50 PM CDT Jaimie Giordano MD LAB BLOOD ORDERABLES Final Result [facility] [place] Department [place] [address] * (ABNORMAL) aPTT (02/22/2025 2:25 PM CDT) [...] DO LAB BLOOD ORDERABLES Final Result [facility] Department [place] [address] * TRANSTHORACIC ECHO (TTE) COMPLETE W DOPPLER/CF W CONTRAST (02/22/2025 1:39 PM CDT) EF Mod BP 51 % CONS SCIMAGE Anatomical Region Laterality Modality Ultrasound 02/22/2025 12:3 8 PM CDT Narrative 02/22/2025 2:49 PM CDT [facility] [place] [address] Transthoracic Echocardiographic Report Patient Name: ESTUARDO COPELAND M : 1970 (54y 3m) Gender: F Study Date: 02/22/2025 12:38:48 PM Ht(Inch): 64 Wt(Lb): 123.9 BSA: 1.59 Bit Sharpener: Marisol Arciniega RDCS [facility] Location: [id number] Order Provider: ELLIE SAENZ Heart Rate: 75 [...] flow reversal in the hepatic veins. Mild DC. Est. PASP 40-45 mm Hg. 7. Physiologic [...] Procedure Note Rc Koehler MD - 02/22/2025 [facility] Card[place] [address] Transthoracic Echocardiographic Report Patient Name: ESTUARDO COPELAND M : 1970 (54y 3m) Gender: F Study Date: 02/22/2025 12:38:48 PM Ht(Inch): 64 Wt(Lb): 123.9 BSA: 1.59 Bit Sharpener: Marisol Arciniega RD, [facility] Location: [id number] OrderProvider: ELLIE SAENZ Heart Rate: 75 BMI: [...] systolic flow reversal in the hepatic veins.Mild DC. Est. PASP 40-45 mm Hg. 7. Physiologic [...] depressed left ventricular systolic function. TheEjection Fraction (Grene's) is measured at 51 %. Indeterminate diastolic [...] [ 2.70 - 3.70 ] MV Decel Qgto430.43 msec [ 104.00 - 258.00 ] Ao [...] lead (02/22/2025 9:14 AM CDT) Pathologist [place] [facility] Ventricular Rate EKG/Min 80 BPM [facility] Atrial Rate 80 BPM [facility] DC-Interval (MSEC) 96 ms [facility] QRS-Interval (MSEC) 90 ms [facility] QT-Interval (MSEC) 412 ms [facility] QTc 475 ms [facility] P [place] 90 degrees [facility] R [place] -30 degrees [facility] T [place] 133 degrees [facility] Diagnosis Sinus rhythm with sinus arrhythmia with short DC Left axis deviation Left ventricular hypertrophy ( Romhilt-Pierce ) Cannot rule out Septal infarct (cited on 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-FEB-2025) ST & T wave abnormality, consider lateral ischemia Abnormal ECG When compared with ECG of 22-FEB-2025 01:51, (unconfirmed) Sinus rhythm has replaced Atrial fibrillation Confirmed by HARJINDER HANDY M.D ([id number]) on 03/05/2025 11:42:44 AM [facility] 02/22/2025 9:14 AM CDT 03/05/2025 11:42 AM CDT us Jaimie Giordano MD ECG ORDERABLES Victoria l Result [facility] * (ABNORMAL) Troponin I high-sensitivity 4-hour (02/22/2025 6:24 AM CDT) Trop I hs 1,868(C) <=17 ng/L Comment: Previous critical value noted within 48 hours ago. Interpretive Data For further [facility] resources including the diagnostic algorithm and an aid in interpretation, copy and paste this link: https://bjhlab.testcatalog.org/show/hsTrop-1 Current Interpretive Data last revised 2020. Trop I hs pct delta -19(C) % [facility] Comment:Previous critical va lue noted within 48 hours ago. Trop I hs interp Significa nt(C) [facility] Comment:Previous critical va lue noted within 48 hours ago. Blood 02/22/2025 6:24 AM CDT 02/22/2025 6:48 AM CDT us Milton Rubio MD LAB BLOOD ORDERABLES Final Resul t [facility] Department [place] [address] * (ABNORMAL) Troponin I high-sensitivity 2-hour (02/22/2025 4:51 AM CDT) Trop I hs 2,146(C) <=17 ng/L Comment: Previous critical value noted within 48 hours ago. Interpretive Data For further hscTnI resources including the diagnostic algorithm and an aid in interpretation, copy and paste this link: https://bjhlab.testcatalog.org/show/hsTrop-1 Current Interpretive Data last revised 2020. Trop I hs pct delta -7 % [facility] Trop I hs interp Equivocal [facility] Blood 02/22/2025 4:51 AM CDT 02/22/2025 5:26 AM CDT us Milton Rubio MD LAB BLOOD ORDERABLES Final Resul t Performing Organization Address [facility] de Phone Number [facility] [place] [address] * (ABNORMAL) aPTT (02/22/2025 4:51 AM CDT) [...] ORDERABLES Final Resul t Performing Organization Address [facility] de Phone Number [facility] [place] [address] * Infection Prevention Anthony auris PCR, surveillance Axilla/Groin (02/22/2025 2:05 AM CDT) Anthony auris DNA Not Detected Not Detected [facility] Comment: Interpretive Data Testing performed by [facility] using the Pablo estelle 6800 Anthony auris assay. This assay detects DNA from Anthony auris using Real-Time PCR. This assay is laboratory developed and is not cleared by the [place] Food and Drug Administration. The performance characteristics have been verified by the [facility]. Axilla/Groin 02/22/2025 2:05 AM CDT 02/22/2025 3:14 AM CDT Narrative [facility] - 02/22/2025 2:38 PM CDT Order placed by [facility] due to ring surveillance. us Instant Order Generic Provider LAB MICROBIOLOGY - GENERAL ORDERABLES Final Result Performing Organization Address [facility] de Phone Number [facility] Department [place] [address] [facility] * (ABNORMAL) Troponin I high-sensitivity series [...] ORDERABLES Final Resul t Performing Organization Address [facility] de Phone Number [facility] Department [place] [address] * (ABNORMAL) eGFR (02/22/2025 2:05 AM CDT) [...] ORDERABLES Final Resul t Performing Organization Address City/[facility]/ZIP Co de Phone Number [facility] Department [place] [address] * Magnesium (02/22/2025 2:05 AM CDT) Pathologist [facility] Magnesium 2.5 1.4 - 2.5 mg/dL Blood 02/22/2025 2:05 AM CDT 02/22/2025 2:58 AM CDT Milton Rubio MD LAB BLOOD ORDERABLES Final Resul t Performing Organization Address City/[facility]/ZIP Co de Phone Number [facility] Department [place] [address] * (ABNORMAL) Comprehensive metabolic panel (02/22/2025 2:05 AM CDT) Sodium 138 135 - 145 mmol/L Potassium, pl 4.3 3.3 - 4.9 mmol/L [facility] Chloride 95(L) 97 - 110 mmol/L [facility] CO2 26 22 - 32 mmol/L [facility] Anion gap 17(H) 2 - 15 mmol/L [facility] BUN 55(H) 6 - 25 mg/dL [facility] Creatinine 12.63(H) 0.60 - 1.10 mg/dL [facility] Glucose 99 70 - 199 mg/dL [facility] Comment: Interpretive Data Fasting glucose [...] 2022. Calcium 8.1(L) 8.5 - 10.3 mg/dL [facility] Bilirubin, total 0.2 0.1 - 1.2 mg/dL [facility] Protein, pl 6.0(L) 6.5 - 8.5 g/dL [facility] Albumin 2.6(L) 3.5 - 5.0 g/dL [facility] Alk phos 59 40 - 130 Units/L [facility] ALT 14 7 - 45 Units/L [facility] AST 20 10 - 45 Units/L [facility] Blood 02/22/2025 2:05 AM CDT 02/22/2025 2:58 AM CDT Milton Rubio MD LAB BLOOD ORDERABLES Final Resul t [facility] Organization Address City/State/[facility] Co de Phone Number [facility] Department [place] [address] * ECG 12 lead (02/22/2025 1:45 AM CDT) Ventricular Rate EKG/Min 137 BPM [facility] QRS-Interval (MSEC) 94 ms [facility] QT-Interval (MSEC) 316 ms [facility] QTc 477 ms [facility] R [place] -41 degrees [facility] T [place] 137 degrees [facility] Diagnosis Age and gender specific ECG analysis Sinus tachycardia Anteroseptal ST-elevation Poor R-wave progression in the precordial leads Left axis deviation Minimal voltage criteria for LVH, may be normal variant ( Oliverio product ) Anteroseptal infarct , possibly acute T wave abnormality, consider lateral ischemia Abnormal ECG No previous ECGs available Confirmed by HARJINDER HANDY M.D ([id number]) on 02/23/2025 3:10:53 PM [facility] 02/22/2025 1:45 AM CDT 02/23/2025 3:10 PM CDT us Jaimie Giordano MD ECG ORDERABLES Victoria l Result [facility] [employer] [facility] * (ABNORMAL) eGFR (02/21/2025 8:31 PM [...] Giordano MD LAB BLOOD ORDERABLES Final Result [facility] Department [place] [address] * Critical Result Callback Chemistry (02/21/2025 8:31 PM CDT) Date Notified [id number] Time Notified 2153 [facility] TestName Calcium [facility] Called/Read Back Jose [facility] Credentials RN [facility] Called By PD CAMERON DOMINGUEZ Blood 02/21/2025 8:31 PM CDT 02/21/2025 9:23 PM CDT us Jaimie Giordano MD LAB BLOOD ORDERABLES Final Result Performing Organization Address City/[facility]/ZIP Co de Phone Number [facility] Department [place] [address] * Critical Result Callback Chemistry (02/21/2025 8:31 PM CDT) Date Notified [id number] Time Notified 2128 [facility] TestName Ca Ionized [facility] Called/Read Back Parminder [facility] Credentials RN [facility] Called By PD [facility] Blood 02/21/2025 8:31 PM CDT 02/21/2025 9:00 PM CDT us Ellie Saenz MD LAB BLOOD ORDERABLES Fin al Result [facility] Department [place] [address] * (ABNORMAL) Calcium, ionized (02/21/2025 8:31 PM CDT) Calcium, Ionized 3.17(C) 4.50 - 5.10 mg/dL Blood 02/21/2025 8:31 PM CDT 02/21/2025 9:00 PM CDT us Ellie Saenz MD LAB BLOOD ORDERABLES Fin al Result Performing Organization Address [facility] Co de Phone Number [facility] Department [place] [address] * (ABNORMAL) aPTT (02/21/2025 8:31 PM CDT) aPTT 52(H) 28 - 38 sec Comment: Interpretive Data Heparin therapeutic range: 66.0 - 100.0 seconds. Range based on correlation with therapeutic heparin activity range of 0.3 - 0.7 Units/mL. Current interpretive data was last revised on 2023. Blood 02/21/2025 8:31 PM CDT 02/21/2025 9:05 PM CDT Narrative [facility] - 02/21/2025 9:15 PM CDT STAT [...] ORDERABL ES Final Result Performing Organization Address [facility] Co de Phone Number [facility] [place] [address] * (ABNORMAL) Phosphorus (02/21/2025 8:31 PM CDT) Pathologist [facility] Phosphorus, pl 8.4(H) 2.3 - 4.5 mg/dL Blood 02/21/2025 8:31 PM CDT 02/21/2025 9:00 PM CDT Jaimie Giordano MD LAB BLOOD ORDERABLES Final Result Performing Organization Address City/[facility]/ZIP Co de Phone Number [facility] Department [place] [address] * Magnesium (02/21/2025 8:31 PM CDT) [facility] Magnesium 2.4 1.4 - 2.5 mg/dL Blood 02/21/2025 8:31 PM CDT 02/21/2025 9:00 PM CDT Jaimie Giordano MD LAB BLOOD ORDERABLES Final Result Performing Organization Address [facility] Co de Phone Number [facility] Department [place] [address] * (ABNORMAL) Basic metabolic panel (02/21/2025 8:31 PM CDT) [facility] Sodium 139 135 - 145 mmol/L Potassium, pl 4.6 3.3 - 4.9 mmol/L [facility] Chloride 94(L) 97 - 110 mmol/L [facility] CO2 27 22 - 32 mmol/L [facility] Anion gap 18(H) 2 - 15 mmol/L [facility] BUN 53(H) 6 - 25 mg/dL [facility] Creatinine 12.82(H) 0.60 - 1.10 mg/dL [facility] Glucose 82 70 - 199 mg/dL [facility] Comment: Interpretive Data Fasting glucose [...] 2022. Calcium 6.4(C) 8.5 - 10.3 mg/dL [facility] Blood 02/21/2025 8:31 PM CDT 02/21/2025 9:00 PM CDT us Jaimie Giordano MD LAB BLOOD ORDERABLES Final Result Performing Organization Address [facility] Co de Phone Number [facility] [place] [address] * (ABNORMAL) aPTT (02/21/2025 11:39 AM CDT) [...] ORDERABLES Final Resul t Performing Organization Address [facility] [place] [place] [address] * (ABNORMAL) Troponin I high-sensitivity (02/21/2025 8:42 [...] ORDERABLES Fin al Result Performing Organization Address [facility] Co de Phone Number [facility] Department [place] [address] * Thyroid Function [place] (02/21/2025 8:42 AM CDT) Pathologist [facility] TSH 1.88 0.30 - 4.20 mcIUnit/mL Blood 02/21/2025 8:42 AM CDT 02/21/2025 9:24 AM CDT Ellie Saenz MD LAB BLOOD ORDERABLES Fin al Result Performing Organization Address [facility] [place] [address] * (ABNORMAL) Troponin I high-sensitivity 6-hour (02/21/2025 4:51 AM CDT) Pathologist [facility] Trop I hs 3,175(C) <=17 ng/L Comment: Previous critical value noted within 48 hours ago. Interpretive Data For further hscTnI resources including the diagnostic algorithm and an aid in interpretation, copy and paste this link: https://bjhlab.testcatalog.org/show/hsTrop-1 Current Interpretive Data last revised 2020. Trop I hs pct delta -25(C) % [facility] Comment:Previous critical va lue noted within 48 hours ago. Trop I hs interp Significa nt(C) [facility] Comment:Previous critical va lue noted within 48 hours ago. Blood 02/21/2025 4:51 AM CDT 02/21/2025 5:32 AM CDT us Jaimie Giordano MD LAB BLOOD ORDERABLES Final Result Performing Organization Address [facility] Co de Phone Number [facility] [place] [address] * (ABNORMAL) aPTT (02/21/2025 4:51 AM CDT) [facility] aPTT 82(H) 28 - 38 sec Comment: Interpretive Data Heparin therapeutic range: 66.0 - 100.0 seconds. Range based on correlation with therapeutic heparin activity range of 0.3 - 0.7 Units/mL. Current interpretive data was last revised on 2023. Blood 02/21/2025 4:51 AM CDT 02/21/2025 5:31 AM CDT us Milton Rubio MD LAB BLOOD ORDERABLES Final Resul t Performing Organization Address [facility]/ZIP Co de Phone Number [facility] Department [place] [address] * (ABNORMAL) Troponin I high-sensitivity 4-hour (02/21/2025 2:18 AM CDT) [facility] Trop I hs 2,937(C) <=17 ng/L Comment: Previous critical value noted within 48 hours ago. Interpretive Data For further hscTnI resources including the diagnostic algorithm and an aid in interpretation, copy and paste this link: https://bjhlab.testcatalog.org/show/hsTrop-1 Current Interpretive Data last revised 2020. Trop I hs pct delta -31(C) % [facility] Comment:Previous critical va lue noted within 48 hours ago. Trop I hs interp Significa nt(C) [facility] Comment:Previous critical va lue noted within 48 hours ago. Blood 02/21/2025 2:18 AM CDT 02/21/2025 2:49 AM CDT us Jaimie Giordano MD LAB BLOOD ORDERABLES Final Result Performing Organization Address City/[facility] Co de Phone Number [facility] Department [place] [address] * Hepatitis C antibody Blood (01/28/2025 9:42 AM CDT) Hep C Ab Nonreactive Nonreactive Comment:Antibodies to HCV no t detected. Does NOT exclude the possibility of recent exposure to HCV. Current interpretive data was last revised on 22 Blood 01/28/2025 9:42 AM CDT 01/28/2025 10:56 AM CDT us Tamar Tang MD LAB MICROBIOLOGY - GENERAL ORD ERABLES Final Result [facility] [place] [address] from Last 3 Months or Most Recently Relevant to Health Maintenance
--- OUTSIDE RECORDS SUMMARY | 2025-05-24 19:08 | XMS_ITS | Clinical Summary ---
Author Organization [facility] Address [address] [place] [address] Phone Care Team Providers Care Maintenance Advisor Name Role Phone ScarlettmelanyPal ibarra DO Primary Care Provider [phone] Allergies Active Allergy Reactions Criticality Noted Date [...] Buckley PharmD 05/10/2019 Other reaction(s): Unknown Per Armain Dumas MD, patient has previously tolerated cephalosporins. [...] on file Legal Sex Female 9:07 AM [facility] Gender Identity Not on file Sexual Orientation Not on file Last Filed Vital Signs Vital Sign Reading Time Taken Comments Blood Pressure 122/70 12/22/2021 9:43 PM [employer] Pulse 72 12/22/2021 9:43 PM [employer]TR[employer] Temperature 36.2 C (97.2 F) 12/22/2021 9:43 PM [employer]TR[employer] Respiratory Rate - - Oxygen Saturation - - Inhaled Oxygen Concentration - - Weight 50.3 kg (111 lb) 12/22/2021 9:43 PM [employer]TR[employer] Height 162.6 cm (5' 4) 12/22/2021 9:43 PM [employer]TR[employer] Body Mass Index 19.05 12/22/2021 9:43 PM [employer] Plan of Treatment Health Maintenance Due Date Last Done Comments Influenza Vaccine (#1) 2025 10/21/2017 Insurance [place]ICA[place] - [place] [facility] Care Teams Maintenance Advisor Relationship Specialty Start Date End Date Pal Downey DO [address] [place] [id number] PCP - General Internal Medicine 02/04/19
--- OUTSIDE RECORDS SUMMARY | 2025-05-24 19:08 | XMS_ITS | Encounter Summary ---
Author Organization [facility] Address [address] [place] [address] Phone Care Team Providers Care Surgical Nurse Practitioner Name Role Phone Quinton Rowan MD Unavailable [phone] Pal Downey DO Primary Care Provider [phone] Tami Flores RN Unavailable Cricket Escalante MD Unavailable Gael Sprague MD PhD Unavailable Brad Turner MD Unavailable [phone] Margarita Montoya MD Unavailable Luca Lott MD Unavailable [phone] Pb Galloway MD Unavailable Felipe Gerber MD Unavailable [phone] Claire Rosales SECURITY PROFESSIONAL Unavailable Claire Rosales SECURITY PROFESSIONAL Unavailable [phone] Encounter Details Date Type [...] on file Legal Sex Female 4:06 AM [employer] Gender Identity Female 01/16/2024 11:18 AM CDT [...] documented as of this encounter Care Teams Surgical Nurse Practitioner Relationship Specialty Start Date End Date Pal Downey DO PCP - General Internal Medicine 01/25/21 Quinton Rowan MD Referring Physician Cardiology 01/09/19 Tami Flores, TONO [address] [address] Registered Nurse Technology Services Manager 01/25/21 Cricket Escalante MD [address] [address] Referring Physician Nephrology 03/24/21 Gael Sprague MD PhD [address] [facility] [address] [place] [address] Fellow Endocrinology Diabetes & Metabolism 03/24/21 Brad Turner MD [address] [address] Consulting Physician Obstetrics and Gynecology 03/24/21 Margarita Montoya MD [address] [address] Consulting Physician Trauma Surgery 12/27/21 Luca Lott MD [address] [address] Consulting Physician Cardiology 08/03/22 Pb Galloway MD [address] [address] Cardiothoracic Surgery 05/25/24 Felipe Gerber MD [address] [address] Consulting Physician Cardiology 05/25/24 Claire Rosales LCSW [address] [facility] ([facility] Mailstop [phone] [place] [address] [facility] Outpatient Environmental Department Manager 02/25/25 03/01/25 Claire Rosales LCSW [address] [facility] ([facility]) Mailstop [phone] [place] [address] [facility] Outpatient Environmental Department Manager 05/10/25 05/18/25 documented as of this encounter
--- OUTSIDE RECORDS SUMMARY | 2025-05-24 19:08 | XMS_ITS | Clinical Summary ---
Author Organization [facility] [employer] Address [address] [place] [address] Care Team Providers Care Rehab/Pre Vocational Counselor Name Role Phone Danielle Hawkins Primary Care Provider Unavailabl e Source Comments [facility] [employer],non-owned Affiliates and Associated Physician Practices is amultiple site organization consisting of ambulatory clinics and hospital sitesin [place], [place], [place] and [place]. This disclosure is being madepursuant to the Care Everywhere program and may not contain all information available regarding this patient. Last updated 18.[facility] [employer] Allergies Active Allergy Reactions Criticality Noted Date [...] on file Legal Sex Female 5:36 PM [employer] Gender Identity Not on file Sexual Orientation Not on file Last Filed Vital Signs Vital Sign Reading Time Taken Comments Blood Pressure 145/91 09/06/2016 9:59 AM [employer] Pulse 79 09/06/2016 9:59 AM [employer] Temperature 36.4 C (97.5 F) 12/23/2015 3:20 PM [employer] Respiratory Rate 12 09/06/2016 9:59 AM [employer] Oxygen Saturation 100% 12/23/2015 3:20 PM [employer] Inhaled Oxygen Concentration - - Weight 60.8 kg (134 lb) 09/06/2016 9:59 AM [employer] Height 162.6 cm (5' 4) 09/06/2016 9:59 AM [employer] Body Mass Index 23 09/06/2016 9:59 AM [employer] Plan of Treatment Health Maintenance Due Date [...] file Group ID:Not on file Type:Medicaid Address: [place] [id number] MEDICARE SELF PAY NO INSURANCE Member Subscriber Plan / Payer (Ef fective for All Dates) Name:Ginger Copeland Member ID:Not on file Relation to Subscriber:Not on file Name:GINGER COPELAND Subscriber ID:Not on file (Home) Address: [address] [place] [id number] Payer ID:Not on file Group ID:Not on file Type:Self Pay Address: [facility] Care Teams Rehab/Pre Vocational Counselor Relationship Specialty Start Date End Date Danielle Hawkins Update Information PCP - General 04/29/15
--- OUTSIDE RECORDS SUMMARY | 2025-05-24 19:08 | XMS_ITS ---
Author Organization [facility] Address [address] [place] [address] Care Team Providers Care Screwmaker Automatic Name Role Phone Quinton Rowan MD Unavailable [phone] Pal Downey DO Primary Care Provider Tami Flores RN Unavailable Cricket Escalante MD Unavailable [phone] Gael Sprague MD PhD Unavailable Brad Turner MD Unavailable [phone] Margarita Montoya MD Unavailable [phone] Luca Lott MD Unavailable [phone] Pb Galloway MD Unavailable [phone] Felipe Gerber MD Unavailable [phone] Transplant Episode Kidney Candidate [facility], [place] Center waitlisted on 09/05/2021 Marked as Inactive on 03/13/2024 Reason: 03 - Candidate Work-up Incomplete Kidney CoordinatorTami Flores RN Email: N/A Scores Score Value Updated Exceptions/Reas ons CPRA Not available EPTS (Calc) 30 05/24/2025 [place] Organ Diagnosis Organ Primary Contributory Kidney Polycystic Kidneys Care Team Name Role Phone Fax Email Tami Flores RN Kidney Coordinator [phone] N/A Mariann Bobo Cost Manager [phone] N/A N/A Events Pre-Transplant Referred: 10/06/2020 Evaluation began: 03/24/2021 Committee: 09/04/2021 Center waitlisted: 09/05/2021 Dialysis History Dialysis History Start End Type Comments Center 01/09/2022 Peritoneal 7 days a week D imne Escalante [facility] Dialysis Center Information Center Phone Fax Address [facility] [phone] [address] [place] [id number]
--- OUTSIDE RECORDS SUMMARY | 2025-05-24 19:10 | XMS_ITS | Encounter Summary ---
Author Organization [facility] Healthcare Address [address] [place] [address] Care Team Providers Care Plaster Mechanic Name Role Phone Quinton Rowan MD Unavailable Pal Downey DO Primary Care Provider [phone] Tami Flores RN Unavailable Cricket Escalante MD Unavailable Gael Sprague MD PhD Unavailable Brad Turner MD Unavailable [phone] Margarita Montoya MD Unavailable [phone] Luca Lott MD Unavailable Pb Galloway MD Unavailable [phone] Felipe Gerber MD Unavailable [phone] Claire Rosales [facility] Unavailable Reason for Visit * Reason Onset Date Comments Admit Notification 05/04/2025 Encounter Details Date Type Department Care Team (Late st Contact Info) Description 05/04/2025 Telephone [facility] Bed Planning [address] [place] [address] Wiley Pulliam, ballast cleaning machine operator Notification Social History Tobacco Use Types Packs/Day [...] on file Legal Sex Female 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 Gender Identity Female 01/16/2024 11:18 AM CDT Sexual Orientation Straight 01/16/2024 11 :18 AM CDT documented as of this encounter Plan of Treatment Scheduled Procedures Name Priority Associated Diagnoses Date/Ti me TRANSPLANT KIDNEY ESRD (end stage renal disease) (HCC) documented as of this encounter Visit Diagnoses Not on filedocumented in this encounter Care Teams Plaster Mechanic Relationship Specialty Start Date End Date Pal Downey DO PCP - General Internal Medicine 01/25/21 Quinton Rowan MD Referring Physician Cardiology 01/09/19 Tami Flores, TONO [address] [address] Registered Nurse Staff Nurse Midwife 01/25/21 Cricket Escalante MD [address] [address] Referring Physician Nephrology 03/24/21 Gael Sprague MD PhD [address] [facility] [address] [place] [address] Fellow Endocrinology Diabetes & Metabolism 03/24/21 Brad Turner MD [address] [address] Consulting Physician Obstetrics and Gynecology 03/24/21 Margarita Montoya MD [address] [address] Consulting Physician Trauma Surgery 12/27/21 Luca Lott MD [address] [facility] [address] [address] Consulting Physician Cardiology 08/03/22 Pb Galloway MD [address] [facility] [address] [address] Cardiothoracic Surgery 05/25/24 Felipe Gerber MD [address] [facility] [address] [address] Consulting Physician Cardiology 05/25/24 Claire Rosales, [facility] [address] [facility] ([facility] Mailstop [phone] [place] [address] [employer] Outpatient Power Operator 05/10/25 05/18/25 documented as of this encounter
== END 2025-05-24 19:24 | disposition left against medical advice (07) ==
PROVIDERS: PCP Internal Medicine
DX: Z53.21 Procedure and treatment not carried out due to patient leaving prior to being seen by health care provider (principal)
CPT/HCPCS: 99199

== ENCOUNTER 2025-05-25 01:25 | Emergency (ER) | payer MEDICARE, OTHER, SELFPAY ==
[2025-05-25] VITALS (10 sets, daily range): BP systolic 61–100; BP diastolic 49–75; PULSE 53–94; RESP 13–23; TEMP 36.4; O2SAT 97–100
--- NOTE | ~2025-05-25 | CT_ITS ---
CT of the Abdomen and Pelvis: Indication: Abdominal pain Technique: 2.5 mm axial scans were obtained through the abdomen and pelvis following intravenous adm inistration of 100 cc of Omnipaque 350. Dose reduction technique was used on this scan by utilizing a utomated exposure control and iterative reconstruction technique. The dose-length product (DLP) was 2 85.97 mGy-cm. COMPARISON: 01/12/2025 Findings: Scans through the lung bases demonstrate partially imaged small to moderate left pleural e ffusion with probable minimal groundglass pulmonary edema at the lung bases. Innumerable hepatic cysts are again present. Enlargement of bilateral kidneys which are essentially c ompletely replaced with innumerable stenosis is overall similar to prior exam, though there is a enla rged 4.1 x 3.2 cm exophytic mass at the anterior aspect of the upper pole the left kidney (axial imag e 68). No definite hydronephrosis. The spleen, pancreas, gallbladder, and adrenal glands are within n ormal limits. There are atherosclerotic calcifications of the aorta. No lymphadenopathy. No bowel obstruction or bowel wall thickening. There is no evidence to suggest acute appendicitis. Images through the pelvis were performed. Urinary bladder unremarkable. Peritoneal dialysis catheter in place. Trace pelvic ascites. No pelvic mass. Impression: 4.1 x 3.2 cm exophytic mass at the anterior aspect of the upper left renal pole is increased in size from prior exam, and could reflect a neoplastic lesion. Please see details above. Pre and postcontras t MR recommended to further assess. Underlying autosomal dominant polycystic kidney disease otherwise similar appearance to prior exam. Polycystic liver disease is also similar to prior exam. Small to moderate left pleural effusion with mild bibasilar pulmonary edema. Reviewed, dictated and finalized at location M. Impression: 4.1 x 3.2 cm exophytic mass at the anterior aspect of the upper left renal pole is increased in size from prior exam, and could reflect a neoplastic lesion. P lease see details above. Pre and postcontrast MR recommended to further assess. Underlying autosomal dominant polycystic kidney disease otherwise similar appea sherif to prior exam. Polycystic liver disease is also similar to prior exam. Small to moderate left pleural effusion with mild bibasilar pulmonary edema.
--- NOTE | ~2025-05-25 | XR_ITS ---
XR chest 1V portable 05/25/2025 08:09 Indication: Shortness of breath. Procedure: AP portable chest Comparison: Comparison to multiple prior studies sequentially, with oldest reviewed study dated 02/15. Findings: Status post median sternotomy for CABG. Pacemaker leads are stable. There is a prosthetic h eart valve. Small left pleural effusion. Cardiomegaly with pulmonary edema. Impression: 1: Cardiomegaly with pulmonary edema. 2: Small left pleural effusion. Reviewed, dictated and finalized at location A. Impression: 1: Cardiomegaly with pulmonary edema. 2: Small left pleural effusion.
--- OUTSIDE RECORDS SUMMARY | 2025-05-25 01:28 | XMS_ITS | Clinical Summary ---
Author Organization [facility] Address [address] [place] [address] Care Team Providers Care Correction Officer Head Name Role Phone Unavailable Primary Care Provider [...]
--- OUTSIDE RECORDS SUMMARY | 2025-05-25 01:29 | XMS_ITS | Clinical Summary ---
Author Organization [facility] Address [address] [place] [address] Care Team Providers Care Account Planner Name Role Phone Danielle Hawkins Primary Care Provider Unavailabl e Source Comments [facility] [employer],non-owned Affiliates and Associated Physician Practices is amultiple site organization consisting of ambulatory clinics and hospital sitesin [place], [place], [place] and [place]. This disclosure is being madepursuant to the Care Everywhere program and may not contain all information available regarding this patient. Last updated 18.[facility] [employer] Allergies Active Allergy Reactions Criticality Noted Date [...] on file Legal Sex Female 5:36 PM RN TELE Gender Identity Not on file Sexual Orientation Not on file Last Filed Vital Signs Vital Sign Reading Time Taken Comments Blood Pressure 145/91 09/06/2016 9:59 AM RN TELE Pulse 79 09/06/2016 9:59 AM RN TELE Temperature 36.4 C (97.5 F) 12/23/2015 3:20 PM RN TELE Respiratory Rate 12 09/06/2016 9:59 AM RN TELE Oxygen Saturation 100% 12/23/2015 3:20 PM RN TELE Inhaled Oxygen Concentration - - Weight 60.8 kg (134 lb) 09/06/2016 9:59 AM RN TELE Height 162.6 cm (5' 4) 09/06/2016 9:59 AM RN TELE Body Mass Index 23 09/06/2016 9:59 AM RN TELE Plan of Treatment Health Maintenance Due Date [...] All Dates) Name:Ginger Copeland Relation to Subscriber:Self Name:JALYINClareCOLINA Payer ID:Not on file Group ID:Not on file Type:Medicaid Address: [place] [id number] MEDICARE SELF PAY NO INSURANCE Member Subscriber Plan / Payer (Ef fective for All Dates) Name:Ginger Copeland Member ID:Not on file Relation to Subscriber:Not on file Name:GINGER COPELAND Subscriber ID:Not on file (Home) Address: [address] [place] [id number] Payer ID:Not on file Group ID:Not on file Type:Self Pay Address: [facility] Care Teams Account Planner Relationship Specialty Start Date End Date Danielle Hawkins Update Information PCP - General 04/29/15
--- OUTSIDE RECORDS SUMMARY | 2025-05-25 01:29 | XMS_ITS | Encounter Summary ---
Author Organization [facility] Address [address] [place] [address] Phone Care Team Providers Care Retread Mold Operator Name Role Phone Quinton Rowan MD Unavailable Pal Downey DO Primary Care Provider [phone] Tami Flores RN Unavailable Cricket Escalante MD Unavailable Gael Sprague MD PhD Unavailable Brad Turner MD Unavailable [phone] Margarita Montoya MD Unavailable [phone] Luca Lott MD Unavailable Pb Galloway MD Unavailable Felipe Gerber MD Unavailable Claire Rosales RN CIRCULATING Unavailable Claire Rosales RN CIRCULATING Unavailable [phone] Encounter Details Date Type [...] on file Legal Sex Female 4:06 AM CARD PUNCHER Gender Identity Female 01/16/2024 11:18 AM CDT [...] documented as of this encounter Care Teams Retread Mold Operator Relationship Specialty Start Date End Date Pal Downey DO PCP - General Internal Medicine 01/25/21 Quinton Rowan MD Referring Physician Cardiology 01/09/19 Tami Flores, TONO [address] [address] Registered Nurse Supervisor Treating And Pumping 01/25/21 Cricket Escalante MD [address] [address] Referring Physician Nephrology 03/24/21 Gael Sprague MD PhD [address] [facility] [address] [place] [address] Fellow Endocrinology Diabetes & Metabolism 03/24/21 Brad Turner MD [address] [address] Consulting Physician Obstetrics and Gynecology 03/24/21 Margarita Montoya MD [address] [address] Consulting Physician Trauma Surgery 12/27/21 Luca Lott MD [address] [address] Consulting Physician Cardiology 08/03/22 Pb Galloway MD [address] [address] Cardiothoracic Surgery 05/25/24 Felipe Gerber MD [address] [address] Consulting Physician Cardiology 05/25/24 Claire Rosales LCSW [address] [facility] ([facility] Mailstop [phone] [place] [address] [employer] Outpatient Spud Grader 02/25/25 03/01/25 Claire Rosales LCSW [address] [facility] ([facility]) Mailstop [phone] [place] [address] [facility]OP Outpatient Spud Grader 05/10/25 05/18/25 documented as of this encounter
--- OUTSIDE RECORDS SUMMARY | 2025-05-25 01:29 | XMS_ITS ---
Author Organization [facility] Address [address] [place] [address] Care Team Providers Care Human Resources Leader Name Role Phone Quinton Rowan MD Unavailable Pal Downey DO Primary Care Provider [phone] Tami Flores RN Unavailable Cricket Escalante MD Unavailable Gael Sprague MD PhD Unavailable Brad Turner MD Unavailable [phone] Margarita Montoya MD Unavailable Luca Medrano MD Unavailable Pb Galloway MD Unavailable Felipe Gerber MD Unavailable [phone] Dialysis Plan of Treatment Dialysis Prescription [...] 4:14 PM CDT Coronary artery disease involving red cliff coronary artery of red cliff heart without angina pectoris POCT ACTIVATED CLOTTING [...] ECG 12-LEAD Routine 02/22/2025 1:45 AM CDT HEPATITIS C ANTIBODY Routine 01/28/2025 [...] no reactions Penicillins Anaphylaxis,Rash,Un known High 04/29/2015 Ytwjnku-Bob-Fmr Reductase Inhibitors Muscle pain Medium 02/20/2025 Trialed [...] changes - Dr. Medrano plans on completing [facility] next week and she will discharge home today with outpatient 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 [facility] admit 04/22-04/24 for afib with work up TSH wnl, hyperkalemic, troponins flat. Reports palpitations stopped last week. Planned direct admission for amiodarone loading, however, patient is no longer wanting to complete this (patient has appropriate concerns about rodent exterminator side effects of Amio, particularly with her thyroid disease) - Home apixaban BID on hold until after [facility] - EP consulted -> recommended device interrogation, completed with known A.fib - Telemetry monitoring Assessment & Plan (05/06/2025 12:38 PM CDT): AT/AF burden 0.8% per device transmission. [facility] admit 04/22-04/24 for afib with work up TSH wnl, hyperkalemic, troponins flat. Reports palpitations stopped last week. Planned direct admission for amiodarone loading, however, patient is no longer wanting to complete this (patient has appropriate concerns about rodent exterminator side effects of Amio, particularly with her thyroid disease) - Continue home apixaban BID - EP consulted -> recommended device interrogation (completed) and TTE - Telemetry monitoring Assessment & Plan (05/05/2025 5:31 PM CDT): AT/AF burden 0.8% per device transmission. [facility] admit 04/22-04/24 for afib with work [...] CDT): AT/AF burden 0.8% per device transmission. [facility] admit 04/22-04/24 for afib with work [...] (02/01/2022): Added automatically from request for surgery [id number] Assessment & Plan (02/05/2025 3:15 PM CDT): Undergoing pre transplant evaluation. We will review with Dr. Medrano regarding possible candidacy for transplant list given recent interventions. Continued to DAPT Disorder of peritoneal dialysis catheter 022 Overview (12/22/2021): Added automatically from request for surgery [id number] Chronic kidney disease, stage V 10/31/2021 Overview (08/21/2023): Added automatically from request for surgery [id number] Sick sinus syndrome 11/02/2020 Assessment & Plan [...] to give small fluid boluses as needed -ACYLA 05/12 w/o signs of infection, redemonstrated AI [...] Assessment & Plan (02/25/2019 11:43 AM CDT): [facility] with 95% LAD lesion, had some [...] Assessment & Plan (02/24/2019 9:29 AM CDT): [facility] with 95% LAD lesion, had some [...] Assessment & Plan (02/20/2019 5:17 AM CDT): [facility] with 95% LAD lesion, had some RV dysfunction during AV repair and found to have RCA occlusion following LAD bypass - s/p IABP placement - CABG to LAD and LCA Assessment & Plan (02/19/2019 2:08 AM CDT): [facility] with 95% LAD lesion, had some RV dysfunction during AV repair and found to have RCA occlusion following LAD bypass - s/p IABP placement - CABG to LAD and LCA Assessment & Plan (02/17/2019 7:38 PM CDT): [facility] with 95% LAD lesion, had some RV dysfunction during AV repair and found to have RCA occlusion following LAD bypass - s/p IABP placement - CABG to LAD and LCA - on Epi and Milrinone, wean epi as above Assessment & Plan (02/16/2019 11:38 PM CDT): [facility] with 95% LAD lesion, had some RV dysfunction during AV repair and found to have RCA occlusion following LAD bypass - s/p IABP placement - CABG to LAD and LCA - on Epi and Milrinone of inotropy Assessment & Plan (02/11/2019 6:16 PM CDT): [facility] with 95% LAD lesion, had some RV dysfunction during AV repair and found to have RCA occlusion following LAD bypass - s/p IABP placement - CABG to LAD and LCA - on Epi and Milrinone of inotropy Assessment & Plan (02/08/2019 5:38 PM CDT): -Patient w/ chest pain/SOB along w/ significant troponin elevation -Plan for [facility] w/ possible PCI tomorrow pending results [...] - valve team consulted, 02/[address] [facility] with severe 1 vessel disease of [...] (02/09/2019): Added automatically from request for surgery [id number] Assessment & Plan (05/17/2019 9:19 AM CDT): [...] (02/10/2019): Added automatically from request for surgery [id number] Assessment & Plan (05/07/2025 3:38 PM CDT): [...] changes - Dr. Medrano plans on completing [facility] next week and she will discharge home today with outpatient 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 - hold metop succinate due to hypotension, previously held OP by cardiology - Repeat TTE owith EF 55-60%, cannot determine diastolic function, no wall motion abnormalities, normal RV, no paravalvular AR with mean gradient 10, severe TR, RSVP 45 - BNP elevated to 47,450 and troponin peak at 192 - EKG without ST segment changes - Dr. Medrano plans on completing [facility] next week and she will discharge home today with outpatient 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 Escalante Continue lasix 40 mg [...] disease, baseline Cr 2.4-2.6. F/b OSH director emergency services. Apparently discussions for potential need for renal txp being discussed. - Cr at baseline on adm - avoid nephrotoxins, renally dose meds - continue calcitriol 0.5 mcg/day - Cr 2.75, received pre-cath hydration, stable 2.7 Headache 05/02/2016 Moderate COPD (chronic obstr uctive pulmonary disease) ([facility]) 11/02/2015 Assessment & Plan (05/07/2025 [...] CDT): Alexis TAVR 05/21 Followed by [facility], Dr. Medrano. CT TAVR [...] not a candidate for intervention (declined by [facility], [facility]) Assessment & Plan (05/17/2019 9:28 [...] for readmission later for planned [place] procedure. 6/28 increased SOB, give lasix 40mg po this [...] AV. Referred to valve team by primary cross country coach Dr. Rowan. Seen 02/02 by valve team [...] = 0.6 oz pur e alcohol) occasional [facility] Utilities Answer Date Recorded In the past 12 months has th e electric, gas, oil, or water [employer] threatened to shut off services in your home? Patient declined 05/10/2025 Social Connection and Isolation Panel [NHANES] A nswer Date Recorded In a typical week, how many times do you talk on the phone with family, friends, or neighbors? Patient declined 05/10/2025 How often do you get togethe r with friends or relatives? Patient declined 05/10/2025 How often do you attend cheondoism or latter-day serv ices? Patient declined 05/10/2025 Do you belong to any clubs o r organizations such as cheondoism groups, unions, fraternal or athletic groups, or [...] the money to buy more. Patient declined 07 / Within the past 12 months, t he [...] any time in the past [address] [facility], were you homeless or living in a alf (including now)? Patient declined 05/10/2025 Personal Safety Answer Date Recorded Have you ever been in or are you currently in a harmful physical or emotional relationship or is someone making you feel afraid or unsafe? Denies 05/11/2025 Comments No Sex and Gender Information Value Date Recorded Sex Assigned at Not on file Legal Sex Female 4:06 AM STNA Gender Identity Female 01/16/2024 11:18 AM CDT [...] Final R esult [facility] [place] [address] * Differential, auto (05/11/2025 6:30 PM CDT) Neutrophil abs 4.30 1.50 - 6.50 K/cumm Comment:Collection date/time has been modified to: 18:30:00. Previous collection date/time: 17:32:00. Imm gran abs 0.02 0.00 - 0.10 K/cumm [facility] Comment:Collection date/time has been modified to: 18:30:00. Previous collection date/time: 17:32:00. Lymphocyte abs 0.83 0.80 - 3.30 K/cumm [facility] Comment:Collection date/time has been modified to: 18:30:00. Previous collection date/time: 17:32:00. Monocyte abs 0.28 0.20 - 0.80 K/cumm [facility] Comment:Collection date/time has been modified to: 18:30:00. Previous collection date/time: 17:32:00. Eosinophil abs 0.19 0.00 - 0.50 K/cumm [facility] Comment:Collection date/time has been modified to: 18:30:00. Previous collection date/time: 17:32:00. Basophil abs 0.02 0.00 - 0.10 K/cumm [facility] Comment:Collection date/time has been modified to: 18:30:00. Previous collection date/time: 17:32:00. Neutrophil pct 76.1 % [facility] Comment: Collection date/time has been modified to: 18:30:00. Previous collection date/time: 17:32:00. Interpretive Data Percent cell count reference ranges are not reported, since discordance with absolute values may lead to misinterpretation of CBC data. Current Interpretive Data was last revised on 2018. Imm gran pct 0.4 % [facility] Comment: Collection date/time has been modified to: 18:30:00. Previous collection date/time: 17:32:00. Interpretive Data Percent cell count reference ranges are not reported, since discordance with absolute values may lead to misinterpretation of CBC data. Current Interpretive Data was last revised on 2018. Lymphocyte pct 14.7 % [facility] Comment: Collection date/time has been modified to: 18:30:00. Previous collection date/time: 17:32:00. Interpretive Data Percent cell count reference ranges are not reported, since discordance with absolute values may lead to misinterpretation of CBC data. Current Interpretive Data was last revised on 2018. Monocyte pct 5.0 % [facility] Comment: Collection date/time has been modified to: 18:30:00. Previous collection date/time: 17:32:00. Interpretive Data Percent cell count reference ranges are not reported, since discordance with absolute values may lead to misinterpretation of CBC data. Current Interpretive Data was last revised on 2018. Eosinophil pct 3.4 % [facility] Comment: Collection date/time has been modified to: 18:30:00. Previous collection date/time: 17:32:00. Interpretive Data Percent cell count reference ranges are not reported, since discordance with absolute values may lead to misinterpretation of CBC data. Current Interpretive Data was last revised on 2018. Basophil pct 0.4 % [facility] Comment: Collection date/time has [...] LAB BLOOD ORDERABLES Edited Result - Final [facility] Department [place] [address] * (ABNORMAL) CBC with auto differential (05/11/2025 6:30 PM CDT) WBC 5.64 3.80 - 9.90 K/cumm Comment:Collection date/time has been modified to: 18:30:00. Previous collection date/time: 17:32:00. Hgb 11.5(L) 11.9 - 15.5 g/dL [facility] Comment:Collection date/time has been modified to: 18:30:00. Previous collection date/time: 17:32:00. Hct 36.8 35.6 - 45.5 % [facility] Comment:Collection date/time has been modified to: 18:30:00. Previous collection date/time: 17:32:00. Plt 158 150 - 400 K/cumm [facility] Comment:Collection date/time has been modified to: 18:30:00. Previous collection date/time: 17:32:00. MPV 10.7 9.1 - 12.3 fL [facility] Comment:Collection date/time has been modified to: 18:30:00. Previous collection date/time: 17:32:00. RBC 3.94 3.90 - 5.20 M/cumm [facility] Comment:Collection date/time has been modified to: 18:30:00. Previous collection date/time: 17:32:00. MCV 93.4 81.3 - 96.4 fL [facility] Comment:Collection date/time has been modified to: 18:30:00. Previous collection date/time: 17:32:00. MCH 29.2 27.1 - 33.3 pg [facility] Comment:Collection date/time has been modified to: 18:30:00. Previous collection date/time: 17:32:00. MCHC 31.3(L) 32.3 - 35.7 g/dL [facility] Comment:Collection date/time has been modified to: 18:30:00. Previous collection date/time: 17:32:00. RDW CV 16.3(H) 11.1 - 14.9 % [facility] Comment:Collection date/time has been modified to: 18:30:00. Previous collection date/time: 17:32:00. RDW SD 55.2(H) 35.7 - 48.1 fL [facility] Comment:Collection date/time has been modified to: 18:30:00. Previous collection date/time: 17:32:00. NRBC abs 0.00 0.00 - 0.01 K/cumm [facility] Comment:Collection date/time has been modified to: 18:30:00. Previous collection date/time: 17:32:00. Blood 05/11/2025 6:30 PM CDT 05/11/2025 6:39 PM CDT Luca Medrano MD LAB BLOOD ORDERABLES Edited Result - Final [facility] Department [place] [address] * (ABNORMAL) Basic metabolic panel (05/11/2025 6:30 PM CDT) Sodium 134(L) 135 - 145 mmol/L Potassium, pl 5.4(H) 3.3 - 4.9 mmol/L [facility] Chloride 96(L) 97 - 110 mmol/L [facility] CO2 26 22 - 32 mmol/L [facility] Anion gap 12 2 - 15 mmol/L [facility] BUN 57(H) 6 - 25 mg/dL [facility] Creatinine 13.94(H) 0.60 - 1.10 mg/dL [facility] Glucose 114 70 - 199 mg/dL [facility] [...] 2022. Calcium 8.3(L) 8.5 - 10.3 mg/dL [facility] Blood 05/11/2025 6:30 PM CDT 05/11/2025 6:39 PM CDT us Luca Medrano MD LAB BLOOD ORDERABLES Final R esult [facility] Department [place] [address] * LEFT HEART CATHETERIZATION WITH CORONARY ANGIOGRAPHY [...] 54 y.o. female : 1970 MR number: [id number] Date of Service: 05/11/2025 Senior Stack Engineer: Luca Medrano MD Fellow: Rio Jacobs MD [...] obtained. The patient was brought to the chemical lab supervisor and placed on the table Bilateral [...] Flow 3. Equipment used: 6 3D RC Wedge Buster Barnard IVUS Catheter, Pack Changer 50 wire, 0.9 mm laser atherectomy catheter [...] got the guide to sit and a Pack Changer 50 wire down into the LAD. Next [...] 284(H) 123 - 168 sec POC Performer [id number] [facility] POC Device Number [id number] [facility] Blood 05/11/2025 4:12 PM CDT 05/11/2025 4:12 PM CDT Luca Medrano MD LAB POCT ORDERABLES - DEVICE Final Result [facility] Department [place] [address] * (ABNORMAL) POCT Activated clotting time, low range (05/11/2025 3:50 PM CDT) ACT 290(H) 123 - 168 sec POC Performer [id number] [facility] POC Device Number [id number] [facility] Blood 05/11/2025 3:50 PM CDT 05/11/2025 3:50 PM CDT Luca Medrano MD LAB POCT ORDERABLES - DEVICE Final Result Performing Organization Address [facility] Co de Phone Number [facility] Department [place] [address] * (ABNORMAL) Potassium, whole blood (05/11/2025 12:00 PM CDT) [facility] Potassium, bld 5.0(H) 3.3 - 4.9 mmol/L Blood 05/11/2025 12:0 0 PM CDT 05/11/2025 12:12 PM CDT Kasi Garcia STRATEGY ASSOCIATE LAB BLOOD ORDERABLES F inal Result Performing Organization Address [facility] Co de Phone Number [facility] [place] [address] * (ABNORMAL) POC Blood Gas and Chemistries, Arterial - (05/11/2025 11:46 AM CDT) [facility] K POC 5.5(H) 3.3 - 4.9 mmol/L Comment: Interpretive Data Not all point of care methods assess for hemolysis. Confirm with instrument and retest K+ if not consistent with clinical signs and symptoms. Current Interpretive Data was last revised on 2024. Blood 05/11/2025 11:4 6 AM CDT 05/11/2025 11:46 AM CDT Luca Medrano MD LAB POCT ORDERABLES - DEVICE Final Result Performing Organization Address [facility] Co de Phone Number [facility] [place] [address] * TRANSTHORACIC ECHO (TTE) COMPLETE W DOPPLER/CF W CONTRAST (05/07/2025 10:16 AM CDT) [facility] Estimated EF 55-60 % CONS SCIMAGE Anatomical Region Laterality Modality Ultrasound 05/06/2025 3:39 PM CDT Narrative 05/06/2025 6:28 PM CDT [facility] [place] [address] Transthoracic Echocardiographic Report Patient Name: ESTUARDO COPELAND M : 1970 (54y 5m) Gender: F Study Date: 05/06/2025 03:39:15 PM Ht(Inch): 64 Wt(Lb): 132.94 BSA: 1.65 Adult Specialist: Brad Tripathi RDCS Location: [id number] Order Provider: ASHLEY CHAHAL Heart Rate: 65 [...] Procedure Note Job Gordon MD - 05/06/2025 [facility] [place] [address] [place] [address] Transthoracic Echocardiographic Report Patient Name: ESTUARDO COPELAND M : 1970 (54y 5m) Gender: F Study Date: 05/06/2025 03:39:15 PM Ht(Inch): 64 Wt(Lb): 132.94 BSA: 1.65 Adult Specialist: Brad Tripathi RDCS Location: [id number] Order Provider: ASHLEY CHAHAL Heart Rate: 65 [...] cm/m2 [ 1.00 - 2.00 ] MV VSJ094.27 msec [ 20.00 - 100.00 ] Asc Ao Diam 2D 1.63 cm MVA PHT2.11 cm2 Asc Ao Index 0.99 cm/m2 MV Decel Zmzj580.23 msec [ 104.00 - 258.00 ] Med [...] LAB BLOOD ORDERAB LES Final Result [facility] Department [place] [address] * (ABNORMAL) Vitamin D 25 hydroxy (05/07/2025 6:17 AM CDT) Vitamin D 25-OH 22(L) 30 - 80 ng/mL Blood 05/07/2025 6:17 AM CDT 05/07/2025 6:55 AM CDT us Ashley Chahal MD LAB BLOOD ORDERAB LES Final Result [facility] [place] [address] * (ABNORMAL) CBC without differential (05/07/2025 6:17 AM CDT) Pathologist [facility] WBC 6.90 3.80 - 9.90 K/cumm Hgb 12.4 11.9 - 15.5 g/dL [facility] Hct 39.1 35.6 - 45.5 % [facility] Plt 157 150 - 400 K/cumm [facility] MPV 10.4 9.1 - 12.3 fL [facility] RBC 4.19 3.90 - 5.20 M/cumm [facility] MCV 93.3 81.3 - 96.4 fL [facility] MCH 29.6 27.1 - 33.3 pg [facility] MCHC 31.7(L) 32.3 - 35.7 g/dL [facility] RDW CV 16.6(H) 11.1 - 14.9 % [facility] RDW SD 56.4(H) 35.7 - 48.1 fL [facility] NRBC abs 0.00 0.00 - 0.01 K/cumm [facility] Blood 05/07/2025 6:17 AM CDT 05/07/2025 6:55 AM CDT us Ashley Chahal MD LAB BLOOD ORDERAB LES Final Result Performing Organization Address [facility] Co de Phone Number [facility] [place] [address] * (ABNORMAL) PTH (05/07/2025 6:17 AM CDT) [facility] PTH 9(L) 15 - 65 pg/mL Blood 05/07/2025 6:17 AM CDT 05/07/2025 6:55 AM CDT us Ashley Chahal MD LAB BLOOD ORDERAB LES Final Result Performing Organization Address City/[facility]/ZIP Co de Phone Number [facility] Department [place] [address] * (ABNORMAL) Renal function panel (05/07/2025 6:17 AM CDT) Sodium 136 135 - 145 mmol/L Potassium, pl 5.1(H) 3.3 - 4.9 mmol/L [facility] Chloride 96(L) 97 - 110 mmol/L [facility] CO2 27 22 - 32 mmol/L [facility] Anion gap 13 2 - 15 mmol/L [facility] BUN 52(H) 6 - 25 mg/dL [facility] Creatinine 14.17(H) 0.60 - 1.10 mg/dL [facility] Glucose 86 70 - 199 mg/dL [facility] [...] 2022. Calcium 8.8 8.5 - 10.3 mg/dL [facility] Phosphorus, pl 9.9(H) 2.3 - 4.5 mg/dL [facility] Albumin 2.8(L) 3.5 - 5.0 g/dL [facility] Blood 05/07/2025 6:17 AM CDT 05/07/2025 6:55 AM CDT us Ashley Chahal MD LAB BLOOD ORDERAB LES Final Result Performing Organization Address City/[facility]/ZIP Co de Phone Number [facility] Department [place] [address] * Cortisol (05/06/2025 8:36 AM CDT) Cortisol [...] LAB BLOOD ORDERAB LES Final Result [facility] [place] [address] * (ABNORMAL) eGFR (05/06/2025 3:41 AM CDT) [...] BLOOD ORDERAB LES Final Result [facility] [place] [address] * (ABNORMAL) Magnesium (05/06/2025 3:41 AM CDT) Magnesium 2.7(H) 1.4 - 2.5 mg/dL Blood 05/06/2025 3:41 AM CDT 05/06/2025 4:14 AM CDT Ashley Chahal MD LAB BLOOD ORDERAB LES Final Result Performing Organization Address [facility] Co de Phone Number [facility] Department [place] [address] * (ABNORMAL) Renal function panel (05/06/2025 3:41 AM CDT) Pathologist [facility] Sodium 136 135 - 145 mmol/L Potassium, pl 4.9 3.3 - 4.9 mmol/L [facility] Chloride 97 97 - 110 mmol/L [facility] CO2 25 22 - 32 mmol/L [facility] Anion gap 14 2 - 15 mmol/L [facility] BUN 56(H) 6 - 25 mg/dL [facility] Creatinine 14.58(H) 0.60 - 1.10 mg/dL [facility] Glucose 107 70 - 199 mg/dL [facility] [...] 2022. Calcium 9.0 8.5 - 10.3 mg/dL [facility] Phosphorus, pl 10.0(H) 2.3 - 4.5 mg/dL [facility] Albumin 2.7(L) 3.5 - 5.0 g/dL [facility] Blood 05/06/2025 3:41 AM CDT 05/06/2025 4:14 AM CDT Ashley Chahal MD LAB BLOOD ORDERAB LES Final Result Performing Organization Address [facility] Co de Phone Number [facility] Department [place] [address] * (ABNORMAL) Troponin I high-sensitivity 6-hour (05/05/2025 11:37 AM CDT) Trop I hs 172(H) <=17 ng/L Comment: Previous critical value noted within 48 hours ago. Interpretive Data For further hscTnI resources including the diagnostic algorithm and an aid in interpretation, copy and paste this link: [email or web address] Current Interpretive Data last revised 2020. Trop I hs pct delta -11 % [facility] Trop I hs interp Equivocal [facility] Blood 05/05/2025 11:3 7 AM CDT 05/05/2025 12:24 PM CDT Jacqueline Jules MD LAB BLOOD ORDER [place] Final Result Performing Organization Address [facility]/ZIP Co de Phone Number [facility] [place] [address] * (ABNORMAL) Troponin I high-sensitivity 4-hour (05/05/2025 9:06 AM CDT) Trop I hs 189(H) <=17 ng/L Comment: Interpretive Data For further hscTnI resources including the diagnostic algorithm and an aid in interpretation, copy and paste this link: [email or web address]/[email or web address] Current Interpretive Data last revised 2020. Trop I hs pct delta -3 % [facility] Trop I hs interp Insignificant CERNER BJ H Blood 05/05/2025 9:06 AM CDT 05/05/2025 9:54 AM CDT Jacqueline Jules MD LAB BLOOD ORDER [place] Final Result Performing Organization Address [facility] de Phone Number [facility] [place] [address] * (ABNORMAL) Troponin I high-sensitivity 2-hour (05/05/2025 6:36 AM CDT) Trop I hs 192(H) <=17 ng/L Comment: Interpretive Data For further hscTnI resources including the diagnostic algorithm and an aid in interpretation, copy and paste this link: [email or web address] Current Interpretive Data last revised 2020. Trop I hs pct delta -1 % [facility] Trop I hs interp Insignificant CERNER BJ H Blood 05/05/2025 6:36 AM CDT 05/05/2025 8:08 AM CDT Jacqueline Jules MD LAB BLOOD ORDER WEST[place] Final Result Performing Organization Address [facility] de Phone Number [facility] [place] [address] * (ABNORMAL) Troponin I high-sensitivity series (baseline, 2hr, 4hr, 6hr) (05/05/2025 4:48 AM CDT) Trop I hs 194(H) <=17 ng/L Comment: Interpretive Data For further hscTnI resources including the diagnostic algorithm and an aid in interpretation, copy and paste this link: [email or web address] Current Interpretive Data last revised 2020. Blood 05/05/2025 4:48 AM CDT 05/05/2025 5:03 AM CDT Jacqueline Jules MD LAB BLOOD ORDER WESTON Final Result Performing Organization Address City/[facility]/ZIP Co de Phone Number CAMERON [facility] [place] [address] * (ABNORMAL) eGFR (05/05/2025 4:48 AM CDT) [...] ORDER WESTON Final Result Performing Organization Address City/[facility]/ZIP Co de Phone Number [facility] [place] [address] * (ABNORMAL) Pro B-type natriuretic peptide (05/05/2025 [...] as advanced age. - References: 1. Tino JL et.al. Eur Heart J. 2006:27:330-337. 2. Sosa RW, Solange BERRY. J. AM Prakash Cardiol: Cardiovasc Imag. 2009;2: 216- 225. Interpretive Data Last Revised Date: 2018. Blood 05/05/2025 4:48 AM CDT 05/05/2025 5:03 AM CDT Jacqueline Jules MD LAB BLOOD ORDER WESTON Final Result CAMERON DOMINGUEZ [facility] [place] [address] * (ABNORMAL) Thyroid Function [place] (05/05/2025 4:48 AM CDT) TSH 14.50(H) 0.30 - 4.20 mcIUnit/mL Blood 05/05/2025 4:48 AM CDT 05/05/2025 5:03 AM CDT Jacqueline Jules MD LAB BLOOD ORDER WE[place] Final Result Performing Organization Address [facility] de Phone Number [facility] [place] [address] * Protime-INR (05/05/2025 4:48 AM CDT) Pathologist [facility] PT 12.4 9.7 - 13.0 sec INR 1.14 0.90 - 1.20 [facility] Comment: Interpretive data Oral anticoagulant therapeutic ranges: Venous thromboembolism prophylaxis or treatment: 2.0-3.0 CARDIOLOGY Standard range: 2.0-3.0 High-intensity range: 2.5-3.5 Refer to indication-specific guidelines for appropriate target ranges for prosthetic heart valve replacement. Current interpretive data was last revised on 2019. Blood 05/05/2025 4:48 AM CDT 05/05/2025 5:13 AM CDT Narrative [facility] - 05/05/2025 5:19 AM CDT Baseline prior to apixaban initiation. Jacqueline Jules MD LAB BLOOD ORDER WEST[place] Final Result Performing Organization Address [facility] de Phone Number [facility] [place] [address] * (ABNORMAL) CBC without differential (05/05/2025 4:48 AM CDT) WBC 5.83 3.80 - 9.90 K/cumm Hgb 11.8(L) 11.9 - 15.5 g/dL [facility] Hct 37.7 35.6 - 45.5 % [facility] Plt 131(L) 150 - 400 K/cumm [facility] MPV 10.9 9.1 - 12.3 fL [facility] RBC 4.00 3.90 - 5.20 M/cumm [facility] MCV 94.3 81.3 - 96.4 fL [facility] MCH 29.5 27.1 - 33.3 pg [facility] MCHC 31.3(L) 32.3 - 35.7 g/dL [facility] RDW CV 16.8(H) 11.1 - 14.9 % [facility] RDW SD 56.8(H) 35.7 - 48.1 fL [facility] NRBC abs 0.00 0.00 - 0.01 K/cumm [facility] Blood 05/05/2025 4:48 AM CDT 05/05/2025 5:04 AM CDT Jacqueline Jules MD LAB BLOOD ORDER [place] Final Result Performing Organization Address City/[facility]/ZIP Co de Phone Number [facility] [place] [address] * (ABNORMAL) T4, free (05/05/2025 4:48 AM CDT) Free T4 0.70(L) 0.90 - 1.70 ng/dL Blood 05/05/2025 4:48 AM CDT 05/05/2025 5:03 AM CDT Narrative [facility] - 05/05/2025 6:23 AM CDT This test was reflexed from a TSH result. Jacqueline Jules MD LAB BLOOD ORDER [place] Edited Result - Final Performing Organization Address City/[facility]/ZIP Co de Phone Number [facility] [place] [address] * (ABNORMAL) Phosphorus (05/05/2025 4:48 AM CDT) Phosphorus, pl 11.7(H) 2.3 - 4.5 mg/dL Blood 05/05/2025 4:48 AM CDT 05/05/2025 5:03 AM CDT Jacqueline Jules MD LAB BLOOD ORDER [place] Final Result Performing Organization Address City/[facility] Co de Phone Number [facility] [place] [address] * (ABNORMAL) Magnesium (05/05/2025 4:48 AM CDT) [facility] Magnesium 2.9(H) 1.4 - 2.5 mg/dL Blood 05/05/2025 4:48 AM CDT 05/05/2025 5:03 AM CDT Jacqueline Jules MD LAB BLOOD ORDER [place] Final Result Performing Organization Address [facility] Co de Phone Number [facility] Department [place] [address] * Bilirubin, direct (05/05/2025 4:48 AM CDT) [facility] Bilirubin, direct <0.2 0.1 - 0.3 mg/dL Blood 05/05/2025 4:48 AM CDT 05/05/2025 5:03 AM CDT Jacqueline Jules MD LAB BLOOD ORDER [place] Final Result Performing Organization Address City/[facility] [place] [address] * (ABNORMAL) Comprehensive metabolic panel (05/05/2025 4:48 AM CDT) [facility] Sodium 140 135 - 145 mmol/L Potassium, pl 5.1(H) 3.3 - 4.9 mmol/L [facility] Chloride 100 97 - 110 mmol/L [facility] CO2 24 22 - 32 mmol/L [facility] Anion gap 16(H) 2 - 15 mmol/L [facility] BUN 60(H) 6 - 25 mg/dL [facility] Creatinine 14.48(H) 0.60 - 1.10 mg/dL [facility] Glucose 91 70 - 199 mg/dL [facility] [...] 2022. Calcium 9.5 8.5 - 10.3 mg/dL [facility] Bilirubin, total 0.2 0.1 - 1.2 mg/dL [facility] Protein, pl 5.6(L) 6.5 - 8.5 g/dL [facility] Albumin 2.8(L) 3.5 - 5.0 g/dL [facility] Alk phos 71 40 - 130 Units/L [facility] ALT 9 7 - 45 Units/L [facility] AST 16 10 - 45 Units/L [facility] Blood 05/05/2025 4:48 AM CDT 05/05/2025 5:03 AM CDT Jacqueline Jules MD LAB BLOOD ORDER WESTON Final Result [facility] [place] [address] * XR Chest 1 View (05/04/2025 11:16 [...] it. Electronically signed by: Woodrow Dial M.D. [facility] Lacey Jules MD IMG XR PROCEDUR ES Final Result * ECG 12 lead (05/04/2025 8:59 PM CDT) [facility] Ventricular Rate EKG/Min 82 BPM [facility] Atrial Rate 82 BPM [facility] WV-Interval (MSEC) 160 ms [facility] QRS-Interval (MSEC) 84 ms [facility] QT-Interval (MSEC) 368 ms [facility] QTc 429 ms [facility] P [place] -16 degrees [facility] R [place] -27 degrees [facility] T [place] 134 degrees [facility] Diagnosis Atrial-paced rhythm Minimal voltage criteria for LVH, may be normal variant ( Oliverio product ) Septal infarct (cited on or before 20-FEB-2025) T wave abnormality, consider lateral ischemia Abnormal ECG When compared with ECG of 22-FEB-2025 09:14, Electronic atrial pacemaker has replaced Sinus rhythm Confirmed by HARJINDER HANDY M.D ([id number]) on 05/05/2025 2:09:39 PM [facility] [place] 05/04/2025 8:59 PM CDT 05/05/2025 2:09 PM CDT Jacqueline Jules MD ECG ORDERABLES Final Result [facility] [place] [facility] * Cardiology Document Scan (04/24/2025 3:35 PM [...] appropriate. No short V-V intervals. Presenting Rhythm (WV) [...] andappropriate. No short V-V intervals. Presenting Rhythm (WV) [...] CV CARDIAC SERVICES PROCEDURES Final Result * Extended/Penitentiary Holter Patch (>48 hours up to 7 days) (04/20/2025 1:47 PM CDT) Anatomical Region Laterality Modality Electrocardiogra phy 04/27/2025 12:4 8 PM CDT Narrative 05/10/2025 1:47 PM CDT HOLTER MONITOR Patient Name: ESTUARDO COPELAND M : 1970 (54y 5m) Gender: F Study Date: 04/27/2025 12:48:59 PM Ht(Inch): Wt(Lb): BSA: Tech: Location: [facility] Order Provider: LUCA MEDRANO BMI: Ref Provider: LUCA MEDRANO PROCEDURES: Holter Report: EXTENDED/PRISON HOLTER PATCH (>48 HOURS UP TO 7 DAYS) [[id number]]. Enrollment Period: 2025-04-27 00:00:00 through 2025-04-29 00:00:00. Location: [facility]. INDICATIONS: R00.2 Palpitations. FINDINGS: Holter [...] events Runs (VT): 6 events Total beats: 59838 SIGNIFICANT PAUSES: 0 >3 sec Protocol: Recording Duration (Ordered): [id number] Recording Duration (Actual): 93469.3 SUMMARY: *The predominant rhythm was Sinus with [...] The PDF can be found in the [facility] Patient chart. Please go to the [...] 12:48:59 PM Ht(Inch): Wt(Lb): BSA: Tech: Location: [facility] Order Provider: LUCA MEDRANO BMI: Ref Provider: LUCA MEDRANO PROCEDURES: Holter Report: EXTENDED/PRISON HOLTER PATCH (>48 HOURS UP TO 7 DAYS)[[id number]]. Enrollment Period: 2025-04-27 00:00:00 through 2025-04-29 00:00:00. Location: [facility]. INDICATIONS: R00.2 Palpitations. FINDINGS: Holter [...] events Runs (VT): 6 events Total beats: 56138 SIGNIFICANT PAUSES: 0 >3 sec Protocol: Recording Duration (Ordered): [id number] Recording Duration (Actual): 50114.3 SUMMARY: *The predominant rhythm was Sinus with [...] The PDF can be found in the [facility] Patient chart. Please go to theCardiology [...] Salcedo M.D. 05/10/2025 12:33:26 PM CDT Luca Medrano MD CV CARDIAC SERVICES PROCEDUR ES Final Result * HLA Antibody Screen by PRA or SAB per Schedule (Class I and Class II) (04/20/2025 10:00 AM CDT) Blood 04/20/2025 10:0 0 AM CDT Narrative [facility] - [facility] Sample received in lab. Single Antigen Antibody [...] a method developed and validated by the [facility] HLA laboratory based on an FDA-approved IVD kit ([employer]creen Single-Antigen, [employer], [place], [place]). All patient serum samples are pretreated with EDTA before the screen to prevent complement interference. Additional serum treatments, such as adsorption and DTT treatment, may be performed as indicated. Interpretive comments: Low risk: MFI [id number]. Moderate risk: MFI [id number]. Increased risk: MFI >/= 5000. The presence [...] avoid. Testing performed at the [facility], [address], [address]th floor, [place], [address]. [facility] # [id number]. Rosa Millan, Ph.D., Enterprise Manager, HLA Laboratory Wilmer Prescott M.D., Ph.D., Utility Tender Carding, HLA Laboratory Alma Payton, Ph.D., [place] Utility Tender Carding, [facility] Clinical Laboratories Current methodology and interpretive comments last revised on 11/15/2022. Salina Hector MD LAB BLOOD ORDERABLES Final Resul t Performing Organization Address City/[facility]/ZIP Co de Phone Number [facility] * HLA Antibody Screen by PRA or SAB per Schedule (Class I and Class II) (03/01/2025 10:00 AM CDT) Blood 03/01/2025 10:0 0 AM CDT Narrative [facility] - [facility] Sample received in lab and stored. No testing performed at this time. Salina Hector MD LAB BLOOD ORDERABLES Final Resul t Performing Organization Address City/[facility]/ZIP Co de Phone Number [facility] * (ABNORMAL) [...] AM CDT 02/24/2025 10:17 AM CDT Dasha Fajardo Tc [facility] LAB BLOOD ORDERABLES Final Result [facility] [place] [address] * (ABNORMAL) Differential, auto (02/24/2025 9:50 AM CDT) Neutrophil abs 4.72 1.50 - 6.50 K/cumm Imm gran abs 0.02 0.00 - 0.10 K/cumm [facility] Lymphocyte abs 0.73(L) 0.80 - 3.30 K/cumm [facility] Monocyte abs 0.42 0.20 - 0.80 K/cumm [facility] Eosinophil abs 0.21 0.00 - 0.50 K/cumm [facility] Basophil abs 0.04 0.00 - 0.10 K/cumm [facility] Neutrophil pct 76.9 % [facility] Comment: Interpretive Data [...] revised on 2018. Lymphocyte pct 11.9 % [facility] Comment: Interpretive Data Percent cell count reference ranges are not reported, since discordance with absolute values may lead to misinterpretation of CBC data. Current Interpretive Data was last revised on 2018. Monocyte pct 6.8 % [facility] Comment: Interpretive Data Percent cell count reference ranges are not reported, since discordance with absolute values may lead to misinterpretation of CBC data. Current Interpretive Data was last revised on 2018. Eosinophil pct 3.4 % [facility] Comment: Interpretive Data Percent cell count reference ranges are not reported, since discordance with absolute values may lead to misinterpretation of CBC data. Current Interpretive Data was last revised on 2018. Basophil pct 0.7 % [facility] Comment: Interpretive Data Percent cell count reference ranges are not reported, since discordance with absolute values may lead to misinterpretation of CBC data. Current Interpretive Data was last revised on 2018. Blood 02/24/2025 9:50 AM CDT 02/24/2025 10:17 AM CDT Dasha Montez DO LAB BLOOD ORDERABLES Final Result [facility] [place] [address] * (ABNORMAL) CBC with auto differential (02/24/2025 9:50 AM CDT) WBC 6.14 3.80 - 9.90 K/cumm Hgb 12.5 11.9 - 15.5 g/dL [facility] Hct 39.5 35.6 - 45.5 % [facility] Plt 177 150 - 400 K/cumm [facility] MPV 10.8 9.1 - 12.3 fL [facility] RBC 4.37 3.90 - 5.20 M/cumm [facility] MCV 90.4 81.3 - 96.4 fL [facility] MCH 28.6 27.1 - 33.3 pg [facility] MCHC 31.6(L) 32.3 - 35.7 g/dL [facility] RDW CV 15.9(H) 11.1 - 14.9 % [facility] RDW SD 51.0(H) 35.7 - 48.1 fL [facility] NRBC abs 0.00 0.00 - 0.01 K/cumm [facility] Blood 02/24/2025 9:50 AM CDT 02/24/2025 10:17 AM CDT Dasha Montez LAB BLOOD ORDERABLES Final Result [facility] [place] [address] * (ABNORMAL) Basic metabolic panel (02/24/2025 9:50 AM CDT) Sodium 136 135 - 145 mmol/L Potassium, pl 5.0(H) 3.3 - 4.9 mmol/L [facility] Chloride 93(L) 97 - 110 mmol/L [facility] CO2 27 22 - 32 mmol/L [facility] Anion gap 16(H) 2 - 15 mmol/L [facility] BUN 43(H) 6 - 25 mg/dL [facility] Creatinine 11.83(H) 0.60 - 1.10 mg/dL [facility] Glucose 82 70 - 199 mg/dL [facility] [...] 2022. Calcium 7.9(L) 8.5 - 10.3 mg/dL [facility] Blood 02/24/2025 9:50 AM CDT 02/24/2025 10:17 AM CDT Dasha Montez LAB BLOOD ORDERABLES Final Result [facility]ERON DOMINGUEZ [facility] Department [place] [address] * (ABNORMAL) eGFR (02/23/2025 11:43 PM CDT) Pathologist [facility] eGFR 3(L) >=60 mL/min/1. 73 [...] Giordano MD LAB BLOOD ORDERABLES Final Result [facility] [place] [address] * VerifyNow clopidogrel (02/23/2025 11:43 PM CDT) [facility] VerifyNow clopidogrel 208 PRU Comment: Interpretive Data [...] ORDERABLES Fin al Result Performing Organization Address City/[facility] Co de Phone Number [facility] Department [place] [address] * (ABNORMAL) Phosphorus (02/23/2025 11:43 PM CDT) Pathologist [facility] Phosphorus, pl 7.6(H) 2.3 - 4.5 mg/dL Blood 02/23/2025 11:4 3 PM CDT 02/24/2025 12:22 AM CDT us Jaimie Giordano MD LAB BLOOD ORDERABLES Final Result Performing Organization Address [facility] Co de Phone Number [facility] [place] [address] * Magnesium (02/23/2025 11:43 PM CDT) Pathologist [facility] Magnesium 2.4 1.4 - 2.5 mg/dL Blood 02/23/2025 11:4 3 PM CDT 02/24/2025 12:22 AM CDT us Jaimie Giordano MD LAB BLOOD ORDERABLES Final Result Performing Organization Address City/[facility] Co de Phone Number [facility] [place] [address] * (ABNORMAL) Basic metabolic panel (02/23/2025 11:43 PM CDT) Sodium 133(L) 135 - 145 mmol/L Potassium, pl 4.9 3.3 - 4.9 mmol/L [facility] Chloride 95(L) 97 - 110 mmol/L [facility] CO2 27 22 - 32 mmol/L [facility] Anion gap 11 2 - 15 mmol/L [facility] BUN 52(H) 6 - 25 mg/dL [facility] Creatinine 11.94(H) 0.60 - 1.10 mg/dL [facility] Glucose 89 70 - 199 mg/dL [facility] [...] 2022. Calcium 8.0(L) 8.5 - 10.3 mg/dL [facility] Blood 02/23/2025 11:4 3 PM CDT 02/24/2025 12:22 AM CDT us Jaimie Giordano MD LAB BLOOD ORDERABLES Final Result [facility] [place] [address] * LEFT HEART CATHETERIZATION WITH CORONARY ANGIOGRAPHY [...] 54 y.o. female : 1970 MR number: [id number] Date of Service: 02/23/2025 Senior Stack Engineer: Luca Medrano MD Fellow: Sanket Quiroz MD [...] vein graft to her LAD and her red cliff left main. She now presents for urgent cardiac catheterization PROCEDURE: The risks, benefits and alternatives of the procedures and moderate sedation were explained to the patient and informed consent was obtained. The patient was brought to the chemical lab supervisor and placed on the table Bilateral [...] KAROLINA Flow 3. Equipment used: 6 3DRC, Wedge Buster Barnard IVUS Catheter, Pack Changer 50 wire, 0.9 mm laser atherectomy catheter [...] it was extremely difficult. We used a Pack Changer 50 wire with extreme difficulty wire through [...] 319(H) 123 - 168 sec POC Performer [id number] [facility] POC Device Number [id number] [facility] Blood 02/23/2025 1:41 PM CDT 02/23/2025 1:41 PM CDT Result [facility] Ellie Saenz MD LAB POCT ORDERABLES - DE VICE Final Result [facility] [place] [address] * (ABNORMAL) POCT Activated clotting time, low range (02/23/2025 12:35 PM CDT) ACT 351(H) 123 - 168 sec POC Performer [id number] [facility] POC Device Number [id number] [facility] Blood 02/23/2025 12:3 5 PM CDT 02/23/2025 12:35 PM CDT Ellie Saenz MD LAB POCT ORDERABLES - DE VICE Final Result Performing Organization Address [facility] Co de Phone Number [facility] [place] [address] * (ABNORMAL) aPTT (02/23/2025 6:36 AM CDT) aPTT 80(H) 28 - 38 sec Comment: Interpretive Data Heparin therapeutic range: 66.0 - 100.0 seconds. Range based on correlation with therapeutic heparin activity range of 0.3 - 0.7 Units/mL. Current interpretive data was last revised on 2023. Blood 02/23/2025 6:36 AM CDT 02/23/2025 7:00 AM CDT Heaven Lerner MD LAB BLOOD ORDERABLES Final Result Performing Organization Address [facility] Co de Phone Number [facility] Department [place] [address] * (ABNORMAL) eGFR (02/22/2025 11:07 PM CDT) [...] BLOOD ORDERABLES Final Result Performing Organization Address [facility] Co de Phone Number [facility] [place] [address] * (ABNORMAL) aPTT (02/22/2025 11:07 PM CDT) [...] ORDERABLES Fin al Result Performing Organization Address [facility] [place] [address] * (ABNORMAL) Phosphorus (02/22/2025 11:07 PM CDT) Phosphorus, pl 7.2(H) 2.3 - 4.5 mg/dL Blood 02/22/2025 11:0 7 PM CDT 02/22/2025 11:50 PM CDT Jaimie Giordano MD LAB BLOOD ORDERABLES Final Result Performing Organization Address City/[facility] Co de Phone Number [facility] [place] [address] * Magnesium (02/22/2025 11:07 PM CDT) Magnesium 2.5 1.4 - 2.5 mg/dL Blood 02/22/2025 11:0 7 PM CDT 02/22/2025 11:50 PM CDT us Jaimie Giordano MD LAB BLOOD ORDERABLES Final Result [facility] [place] [address] * (ABNORMAL) Basic metabolic panel (02/22/2025 11:07 PM CDT) Pathologist [facility] Sodium 134(L) 135 - 145 mmol/L Potassium, pl 4.5 3.3 - 4.9 mmol/L [facility] Chloride 95(L) 97 - 110 mmol/L [facility] CO2 28 22 - 32 mmol/L [facility] Anion gap 11 2 - 15 mmol/L [facility] BUN 56(H) 6 - 25 mg/dL [facility] Creatinine 11.97(H) 0.60 - 1.10 mg/dL [facility] Glucose 104 70 - 199 mg/dL [facility] [...] 2022. Calcium 7.8(L) 8.5 - 10.3 mg/dL [facility] Blood 02/22/2025 11:0 7 PM CDT 02/22/2025 11:50 PM CDT us Jaimie Giordano MD LAB BLOOD ORDERABLES Final Result [facility] [place] [address] * (ABNORMAL) aPTT (02/22/2025 2:25 PM CDT) Pathologist [facility] aPTT 54(H) 28 - 38 sec Comment: Interpretive Data Heparin therapeutic range: 66.0 - 100.0 seconds. Range based on correlation with therapeutic heparin activity range of 0.3 - 0.7 Units/mL. Current interpretive data was last revised on 2023. Blood 02/22/2025 2:25 PM CDT 02/22/2025 2:59 PM CDT Dasha Montez DO LAB BLOOD ORDERABLES Final Result Performing Organization Address City/State/[facility] Co de Phone Number [facility] [place] [address] * TRANSTHORACIC ECHO (TTE) COMPLETE W DOPPLER/CF W CONTRAST (02/22/2025 1:39 PM CDT) Pathologist [facility] EF Mod BP 51 % CONS SCIMAGE Anatomical Region Laterality Modality Ultrasound 02/22/2025 12:3 8 PM CDT Narrative 02/22/2025 2:49 PM CDT [facility] [place] [address] Transthoracic Echocardiographic Report Patient Name: ESTUARDO COPELAND M : 1970 (54y 3m) Gender: F Study Date: 02/22/2025 12:38:48 PM Ht(Inch): 64 Wt(Lb): 123.9 BSA: 1.59 Adult Specialist: Marisol Arciniega RDCS, [facility] Location: [id number] Order Provider: ELLIE SAENZ Heart Rate: 75 [...] flow reversal in the hepatic veins. Mild [place]V. Est. PASP 40-45 mm Hg. 7. Physiologic [...] Procedure Note Rc Koehler MD - 02/22/2025 [facility] Cardiac [place] [address] Transthoracic Echocardiographic Report Patient Name: ESTUARDO COPELAND M : 1970 (54y 3m) Gender: F Study Date: 02/22/2025 12:38:48 PM Ht(Inch): 64 Wt(Lb): 123.9 BSA: 1.59 Adult Specialist: Marisol Arciniega RD, [facility] Location: [id number] OrderProvider: ELLIE SAENZ Heart Rate: 75 BMI: [...] systolic flow reversal in the hepatic veins.Mild [place]V. Est. PASP 40-45 mm Hg. 7. Physiologic [...] [ 2.70 - 3.70 ] MV Decel [id number] msec [ 104.00 - 258.00 ] Ao [...] 12 lead (02/22/2025 9:14 AM CDT) Pathologist [facility] Ventricular Rate EKG/Min 80 BPM [facility] Atrial Rate 80 BPM [facility] WV-Interval (MSEC) 96 ms [facility] QRS-Interval (MSEC) 90 ms [facility] QT-Interval (MSEC) 412 ms [facility] QTc 475 ms [facility] P [place] 90 degrees [facility] R [place] -30 degrees [facility] T [place] 133 degrees [facility] Diagnosis Sinus rhythm with sinus arrhythmia with short [place] Left axis deviation Left ventricular hypertrophy ( Romhilt-Pierce ) Cannot rule out Septal infarct (cited on 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-FEB-2025) ST & T wave abnormality, consider lateral ischemia Abnormal ECG When compared with ECG of 22-FEB-2025 01:51, (unconfirmed) Sinus rhythm has replaced Atrial fibrillation Confirmed by HARJINDER HANDY M.D ([id number]) on 03/05/2025 11:42:44 AM [facility] 02/22/2025 9:14 AM CDT 03/05/2025 11:42 AM [...] I hs pct delta -19(C) % [facility] Comment:Previous critical va lue noted within 48 hours ago. Trop I hs interp Significa nt(C) [facility] Comment:Previous critical va lue noted within 48 hours ago. Blood 02/22/2025 6:24 AM CDT 02/22/2025 6:48 AM CDT us Milton Rubio MD LAB BLOOD ORDERABLES Final Resul t Performing Organization Address City/State/[facility] Co de Phone Number [facility] Department [place] [address] * (ABNORMAL) Troponin I high-sensitivity 2-hour (02/22/2025 4:51 AM CDT) Trop I hs 2,146(C) <=17 ng/L Comment: Previous critical value noted within 48 hours ago. Interpretive Data For further hscTnI resources including the diagnostic algorithm and an aid in interpretation, copy and paste this link: https://bjhlab.testcatalog.org/show/hsTrop-1 Current Interpretive Data last revised 2020. Trop I hs pct delta -7 % [facility] Trop I hs interp Equivocal [facility] Blood 02/22/2025 4:51 AM CDT 02/22/2025 5:26 AM CDT Milton Rubio MD LAB BLOOD ORDERABLES Final Resul t Performing Organization Address [facility] Co de Phone Number [facility] Department [place] [address] * (ABNORMAL) aPTT (02/22/2025 4:51 AM CDT) [...] ORDERABLES Final Resul t Performing Organization Address [facility] Co de Phone Number [facility] Department [place] [address] * Infection Prevention Anthony auris PCR, surveillance Axilla/Groin (02/22/2025 2:05 AM CDT) Anthony auris DNA Not Detected Not Detected [facility] Comment: Interpretive Data Testing performed by [facility] using the Pablo estelle 6800 Anthony auris assay. This assay detects DNA from Anthony auris using Real-Time PCR. This assay is laboratory developed and is not cleared by the [place] Food and Drug Administration. The performance characteristics have been verified by the [facility]. Axilla/Groin 02/22/2025 2:05 AM CDT 02/22/2025 3:14 AM CDT Narrative [facility] - 02/22/2025 2:38 PM CDT Order placed by [facility] due to ring surveillance. us Instant Order Generic Provider LAB MICROBIOLOGY - GENERAL ORDERABLES Final Result [facility] Department [place] [address] [facility] * (ABNORMAL) Troponin I high-sensitivity series (baseline, 2hr, 4hr, 6hr) (02/22/2025 2:05 AM CDT) Pathologist [facility] Trop I hs 2,317(C) <=17 ng/L Comment: Previous critical value noted within 48 hours ago. Interpretive Data For further hscTnI resources including the diagnostic algorithm and an aid in interpretation, copy and paste this link: https://bjhlab.testcatalog.org/show/hsTrop-1 Current Interpretive Data last revised 2020. Blood 02/22/2025 2:05 AM CDT 02/22/2025 2:57 AM CDT us Milton Rubio MD LAB BLOOD ORDERABLES Final Resul t [facility] [place] [address] * (ABNORMAL) eGFR (02/22/2025 2:05 AM CDT) [...] ORDERABLES Final Resul t Performing Organization Address City/[facility] Co de Phone Number [facility] [place] [address] * Magnesium (02/22/2025 2:05 AM CDT) Magnesium 2.5 1.4 - 2.5 mg/dL Blood 02/22/2025 2:05 AM CDT 02/22/2025 2:58 AM CDT us Milton Rubio MD LAB BLOOD ORDERABLES Final Resul t Performing Organization Address [facility] de Phone Number [facility] Department [place] [address] * (ABNORMAL) Comprehensive metabolic panel (02/22/2025 2:05 AM CDT) Sodium 138 135 - 145 mmol/L Potassium, pl 4.3 3.3 - 4.9 mmol/L [facility] Chloride 95(L) 97 - 110 mmol/L [facility] CO2 26 22 - 32 mmol/L [facility] Anion gap 17(H) 2 - 15 mmol/L [facility] BUN 55(H) 6 - 25 mg/dL [facility] Creatinine 12.63(H) 0.60 - 1.10 mg/dL [facility] Glucose 99 70 - 199 mg/dL [facility] [...] 2022. Calcium 8.1(L) 8.5 - 10.3 mg/dL [facility] Bilirubin, total 0.2 0.1 - 1.2 mg/dL [facility] Protein, pl 6.0(L) 6.5 - 8.5 g/dL [facility] Albumin 2.6(L) 3.5 - 5.0 g/dL [facility] Alk phos 59 40 - 130 Units/L [facility] ALT 14 7 - 45 Units/L [facility] AST 20 10 - 45 Units/L [facility] Blood 02/22/2025 2:05 AM CDT 02/22/2025 2:58 AM CDT us Milton Rubio MD LAB BLOOD ORDERABLES Final Resul t [facility] Department [place] [address] * ECG 12 lead (02/22/2025 1:45 AM CDT) Ventricular Rate EKG/Min 137 BPM [facility] QRS-Interval (MSEC) 94 ms [facility] QT-Interval (MSEC) 316 ms [facility] QTc 477 ms [facility] R [place] -41 degrees [facility] T [place] 137 degrees [facility] Diagnosis Age and gender specific ECG analysis Sinus tachycardia Anteroseptal ST-elevation Poor R-wave progression in the precordial leads Left axis deviation Minimal voltage criteria for LVH, may be normal variant ( Bude product ) Anteroseptal infarct , possibly acute T wave abnormality, consider lateral ischemia Abnormal ECG No previous ECGs available Confirmed by HARJINDER HANDY M.D ([id number]) on 02/23/2025 3:10:53 PM [facility] 02/22/2025 1:45 AM CDT 02/23/2025 3:10 PM CDT us Jaimie Giordano MD ECG ORDERABLES Victoria l Result [facility] [place] * Hepatitis C antibody Blood (01/28/2025 9:42 AM CDT) Pathologist [facility] Hep C Ab Nonreactive Nonreactive Comment:Antibodies to HCV no t detected. Does NOT exclude the possibility of recent exposure to HCV. Current interpretive data was last revised on 22 Blood 01/28/2025 9:42 AM CDT 01/28/2025 10:56 AM CDT us Tamar Tang MD LAB MICROBIOLOGY - GENERAL ORD ERABLES Final Result [facility] Department of Laboratories [place], [place] [id number] from Last 3 Months or Most Recently Relevant to Health Maintenance
--- OUTSIDE RECORDS SUMMARY | 2025-05-25 01:29 | XMS_ITS | Referral Summary ---
Author Organization [facility] Address [address] [place] [address] Care Team Providers Care Staff Mine Warfare Officer Name Role Phone Quinton Rowan MD Unavailable [phone] Pal Downey DO Primary Care Provider [phone] Tami Flores RN Unavailable Cricket Escalante MD Unavailable [phone] Gael Sprague MD PhD Unavailable Brad Turner MD Unavailable [phone] Margarita Montoya MD Unavailable [phone] Luca Lott MD Unavailable Pb Galloway MD Unavailable Felipe Gerber MD Unavailable [phone] Encounters Date Type Department Care Team Description 05/19/2025 SHOP/CHAP Subsequent Outreach [facility] OP CASE MANAGEMENT [address] [place] [phone] Claire Rosales LCSW 05/13/2025 SHOP/CHAP Subsequent Outreach [facility] OP CASE MANAGEMENT 1 [place] [phone] Claire Rosales LCSW 05/12/2025 Telephone [facility] Cardiology [facility] Advanced Medicine 8th [place] [address] [place] [address] Luca Lott MD 05/12/2025 Telephone [facility] Cardiology [address] [facility] Medical Office Building 3 [address] [place] [address] Luca Lott MD [facility] 05/12/2025 Telephone [facility] Heart [facility] Vascular [place] [address] [place] [address] Reagan Vences MD 05/11/2025 12:55 PM CDT - 05/11/2025 2:25 PM CDT Surgery [facility] Vascular [place] [address] [place] [address] Luca Lott MD LEFT HEART CATHETERIZATION WITH CORONARY ANGIOGRAPHY AND WITH OR WITHOUT LEFT VENTRICULOGRAM 50010 05/11/2025 11:13 AM CDT - 05/11/2025 7:34 PM CDT Hospital [facility] Heart [facility] Vascular [place] [address] [place] [address] Luca Lott MD Chronic heart failure with preserved ejection fraction (HCC) [I50.32] (Primary Dx); Coronary artery disease involving jackson coronary artery of jackson heart without angina pectoris Discharge Disposition: Discharge to home or self care 05/10/2025 SHOP/CHAP Initial Outreach [facility] OP CASE MANAGEMENT 1 [place] [address] Claire Rosales LCSW 05/10/2025 SHOP/CHAP Initial Eligibility Review [facility] OP CASE MANAGEMENT 1 [place] [address] Claire Rosales LCSW 05/07/2025 Telephone [facility] Cardiology [facility] Advanced [facility] 8th [place] [address] [place] [address] Luca Lott MD 05/04/2025 7:27 PM CDT - 05/07/2025 5:52 PM CDT Hospital Encounter [facility] 1 [place] [address] Kalen Villegas MD PhD Jorge A, MD Tirso Mejia, Ashley Farnsworth MD Discharge Disposition: Discharge to home or self care 05/04/[address] [facility] Bed Planning 1 [place] [address] Wiley Pulliam, tank setter Notification 04/29/2025 Orders Only [facility] Cardiology [address] [place] [address] Building [address] [place] [address] Lane Ramos MD PhD S/P placement of cardiac pacemaker; Sick sinus syndrome (HCC) 04/28/2025 Telephone [facility] Cardiology [facility] 8th [place] [address] [place] [address] Lane Ramos MD PhD 04/27/2025 Orders Only [facility] Cardiology [address] [place] [address] Eduin Springer MD 04/26/2025 Telephone [facility] Cardiology [address] [facility] Advanced [facility] 8th [place] [address] [place] [address] Luca Lott MD 04/23/2025 Orders Only [address] Building [address] [place] [address] Lane Ramos MD PhD 04/20/2025 10:00 AM CDT - 04/20/2025 11:59 PM CDT Hospital Encounter [address] [address] ESRD (end stage renal disease) (HCC) Discharge Disposition: Discharge to home or self care 04/20/2025 2:00 PM CDT Ancillary Procedure [facility] [place] [address] [place] [address] 3 [address] [place] [address] Palpitations 04/20/2025 Orders Only [facility] Cardiology [address] [facility] Medical Office Building [address] [place] [address] Luca Lott MD Palpitations (Primary Dx) 04/07/2025 Telephone [facility] and [facility] Transplant Kidney [address] [facility] [address] Mailstop [phone] [place] [address] Tiarra Mcdermott 04/07/2025 Telephone [facility] Trans[facility]ney [address] [facility] [address] Mailstop [phone] [place] [address] Tami Flores, TONO 04/07/2025 11:30 AM CDT Office Visit [facility] Cardiology [address] [facility] Medical Office Building 3 [address] [place] [address] Luca Lott MD Nonrheumatic aortic valve stenosis (Primary Dx); Coronary artery disease involving jackson coronary artery of jackson heart without angina pectoris 03/27/2025 Orders Only [facility] Cardiology [address] [facility] 8th [place] [address] [place] [address] Claire Mcnally, TONO 03/25/2025 10:00 AM CDT - 03/25/2025 11:59 PM CDT Hospital Encounter [address] [address] ESRD (end stage renal disease) (HCC) Discharge Disposition: Discharge to home or self care 03/02/2025 SHOP/CHAP Initial Outreach [facility] OP CASE MANAGEMENT 1 [place] [address] Claire Rosales LCSW 03/01/2025 10:00 AM CDT - 03/01/2025 11:59 PM CDT Hospital Encounter [address] [address] ESRD (end stage renal disease) (HCC) Discharge Disposition: Discharge to home or self care 02/26/2025 SHOP/CHAP Initial Outreach [facility] OP CASE MANAGEMENT 1 [place] [address] BobbyClairey, METALLURGIST HELPER 02/25/2025 SHOP/CHAP Initial Outreach [facility] OP CASE MANAGEMENT 1 [place] [address] Claire Rosalesy, METALLURGIST HELPER 02/25/2025 SHOP/CHAP Initial Eligibility Review [facility] OP CASE MANAGEMENT 1 [place] [address] BobbyClaire Christine, [facility] 02/20/2025 8:07 PM CDT - 02/24/2025 3:54 PM CDT Hospital Encounter [facility] 1 [place] [address] Elvin Giordano, MD Dany Nails Namrata Nikhil, MD Acute coronary syndrome (HCC) (Primary Dx); Chest pain [R07.9]; Coronary artery disease involving jackson coronary artery of jackson heart without angina pectoris [I25.10] Discharge Disposition: Discharge to home or self care 02/23/2025 11:33 AM CDT - 02/23/2025 12:53 PM CDT Surgery [facility] 1 [place] [address] Luca Lott MD LEFT HEART CATHETERIZATION WITH CORONARY ANGIOGRAPHY AND WITH OR WITHOUT LEFT VENTRICULOGRAM [address] from Last 3 Months Allergies Active Allergy [...] no reactions Penicillins Anaphylaxis,Rash,Un known High 04/29/2015 Jcdsohe-Bqb-Lhi Reductase Inhibitors Muscle pain Medium 02/20/2025 Trialed [...] 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 We will review with Dr. Lott regarding possible candidacy for transplant list given recent interventions. Continued to DAPT Disorder of peritoneal dialysis catheter 022 Overview (12/22/2021): Added automatically from request for surgery [id number] Chronic kidney disease, stage V 10/31/2021 Overview (08/21/2023): Added automatically from request for surgery [id number] Sick sinus syndrome 11/02/2020 Assessment & Plan [...] Assessment & Plan (02/25/2019 11:43 AM CDT): [facility] with 95% LAD lesion, had some [...] Assessment & Plan (02/24/2019 9:29 AM CDT): [facility] with 95% LAD lesion, had some [...] Assessment & Plan (02/20/2019 5:17 AM CDT): [facility] with 95% LAD lesion, had some RV dysfunction during AV repair and found to have RCA occlusion following LAD bypass - s/p IABP placement - CABG to LAD and LCA Assessment & Plan (02/19/2019 2:08 AM CDT): [facility] with 95% LAD lesion, had some RV dysfunction during AV repair and found to have RCA occlusion following LAD bypass - s/p IABP placement - CABG to LAD and LCA Assessment & Plan (02/17/2019 7:38 PM CDT): [facility] with 95% LAD lesion, had some RV dysfunction during AV repair and found to have RCA occlusion following LAD bypass - s/p IABP placement - CABG to LAD and LCA - on Epi and Milrinone, wean epi as above Assessment & Plan (02/16/2019 11:38 PM CDT): [facility] with 95% LAD lesion, had some RV dysfunction during AV repair and found to have RCA occlusion following LAD bypass - s/p IABP placement - CABG to LAD and LCA - on Epi and Milrinone of inotropy Assessment & Plan (02/11/2019 6:16 PM CDT): [facility] with 95% LAD lesion, had some RV dysfunction during AV repair and found to have RCA occlusion following LAD bypass - s/p IABP placement - CABG to LAD and LCA - on Epi and Milrinone of inotropy Assessment & Plan (02/08/2019 5:38 PM CDT): -Patient w/ chest pain/SOB along w/ significant troponin elevation -Plan for [facility] w/ possible PCI tomorrow pending results [...] to 4.35 - valve team consulted, 02/09 [facility] with severe 1 vessel disease of [...] (02/09/2019): Added automatically from request for surgery [id number] Assessment & Plan (05/17/2019 9:19 AM CDT): [...] (02/10/2019): Added automatically from request for surgery [id number] Assessment & Plan (05/07/2025 3:38 PM CDT): [...] changes - Dr. 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 Escalante Continue lasix 40 [...] kidney disease, baseline Cr 2.4-2.6. F/b OSH disc ruler operator. Apparently discussions for potential need for renal txp being discussed. - Cr at baseline on adm - avoid nephrotoxins, renally dose meds - continue calcitriol 0.5 mcg/day - Cr 2.75, received pre-cath hydration, stable 2.7 Headache 05/02/2016 Moderate COPD (chronic obstr uctive pulmonary disease) ([facility]) 11/02/2015 Assessment & Plan (05/07/2025 [...] AM CDT): Alexis TAVR 05/21 Followed by [facility], Dr. Lott. CT [...] not a candidate for intervention [facility] Assessment & Plan (05/17/2019 9:28 [...] AV. Referred to valve team by primary travel director Dr. Rowan. Seen 02/02 by valve team [...] around 2.4 Dr Escalante is her home disc ruler operator Assessment & Plan (02/23/2019 12:20 PM CDT): Pt above POW by 2 kg. Lasix on hold due to elevation in Creatinine Baseline creat is around 2.4 Dr Escalante is her home disc ruler operator Agitation requiring sedation protocol 02/14/2019 02/23/2019 Acute [...] she had reactions to (?). Per OSH disc ruler operator's note in Care Everywhere, pt tried metoprolol [...] 0.6 oz pur e alcohol) occasional [facility] Utilities Answer Date Recorded In the past 12 months has [employer], [employer], or [employer] threatened to shut off services in your home? Patient declined 05/10/2025 Social Connection and Isolation Panel [NHANES] A nswer Date Recorded In a typical week, how many times do you talk on the phone with family, friends, or neighbors? Patient declined 05/10/2025 How often do you get togethe r with friends or relatives? Patient declined 05/10/2025 How often do you attend latter day or alevism serv ices? Patient declined 05/10/2025 Do you belong to any clubs o r organizations such as latter day groups, unions, fraternal or athletic groups, or [...] time in the past 12 m [facility], were you homeless or living in a fpc (including now)? Patient declined 05/10/2025 Personal Safety Answer Date Recorded Have you ever been in or are you currently in a harmful physical or emotional relationship or is someone making you feel afraid or unsafe? 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 Gender Identity Female 01/16/2024 11:18 AM CDT [...] Scheduled Procedures Name Priority Associated Diagnoses Date/Ti sd TRANSPLANT KIDNEY ESRD (end stage renal disease) (HCC) Medical Devices Implanted Type Area Ui Engineer Device Identifier Shelf Expiration Date Model / Serial / Lot Angio-Seal Evolution 6fr Vascular Closure [id number] - [id number] - [id number] Implanted:Qty: 1 on 03/09/2022 by Luca Lott MD at [facility] Collagen Right: Femoral [employer] Pam 09/19/2022 [id number] / [id number] / [id number] [employer] Pam Angio-Seal Vip 6fr Closere Device [id number] - [id number] - [id number] Implanted:Qty: 1 on 07/24/2022 by Luca Lott MD at [facility] Collagen [employer] Pam 03/20/2023 147865 / [id number] / [id number] [employer] Pam Angio-Seal Vip 6fr Closere Device 176286 - [id number] - [id number] Implanted:Qty: 1 on 05/21/2024 at [facility] Collagen Right: Common Femoral Artery [employer] Pam 01/09/2025 009575 / [id number] / [id number] [employer] Pam Angio-Seal Vip Bondek-Plus 8fr .038in 70cm Hemostatic Latex Free 668733 - [id number] - [id number] Implanted:Qty: 1 on 05/21/2024 by Felipe Gerber MD at [facility] Collagen Right: Common Femoral Artery [employer] Pam 01/06/2025 [id number] / [id number] / [id number] [employer] Pam Angio-Seal Vip 6fr Closere Device 408219 - [id number] - [id number] Implanted:Qty: 1 on 02/23/2025 by Luca Lott MD at [facility] Collagen [employer] Pam 06/15/2025 356636 / [id number] / [id number] Medtronic Cardiac Rhythm Mgmt 5076-52 Capsurefix Novus 6.2fr 2mm 52cm Bipolar Screw In Implantable Latex Free - [id number] - [id number] Implanted:Qty: 1 on 05/15/2019 by Lane Ramos MD PhD at [facility] Lead Medtronic Inc 03/11/2021 5076-52 / [id number] / Medtronic Cardiac Rhythm Mgmt 5076-45 Capsurefix Novus 6.2fr 2mm 45cm Bipolar Screw In Implantable - [id number] - [id number] Implanted:Qty: 1 on 05/15/2019 by Lane Ramos MD PhD at [facility] Lead Medtronic Inc 03/30/2021 5076-45 / [id number] / [employer] [facility] [id number] Linear 7.5fr 6in Insertion Kit Caustic Loader Introducer Sheath - [id number] Implanted:Qty: 1 on 02/10/2019 by Luca Lott MD at [facility] Other - see comments [employer] 0684-00 -0480-0 / / Description:IABP Medtronic Inc [id number] [place] Curl Cath Beta-Cap Holden 15fr 57cm 2 Cuff Clamp Adapter - [id number] - [id number] Implanted:Qty: 1 on 11/21/2021 by Carlos Kamara MD at [facility] Other - see comments N/A: Abdomen Medtronic Inc 11/30/2022 8811-31 3015 / 0 / [id number] Medtronic Cardiac Rhythm Mgmt W1dr01 Tereza Wirelessly Pacemaker Cardiac - [id number] - [id number] Implanted:Qty: 1 on 05/15/2019 by Lane Ramos MD PhD at [facility] Pacemaker Medtronic Inc [id number] 09/17/2020 W1DR01 / [id number] / Jamil [employer]iences Valve Aortic Trnscath Brown 3 Ultra Resilia 20mm [id number] - [id number] - [id number] Implanted:Qty: 1 on 05/21/2024 by Felipe Gerber MD at [facility] Prosthetic Valve N/A: Aortic Valve [employer] 02/27/2027 [id number] 20A / [id number] / Medtronic Inc Resolute Assonet 4mm 2.1-2.7fr 12mm 140cm Rapid Exchange Radiopaque [id number] - [id number] - [id number] Implanted:Qty: 1 on 03/09/2022 by Luca Lott MD at [facility] Stent Left: Coronary Medtronic Inc 12/06/2022 [id number] 012UX / [id number] / [id number] Description:LAD Biotronik Inc Stent Coronary De Rx Cocr Ors Msn 4.0x15mm 017921 - [id number] - [id number] Implanted:Qty: 1 on 07/24/2022 by Luca Lott MD at [facility] Stent [employer] Inc 09/05/2023 916365 / [id number] / [id number] Medtronic Card Vasc Surgery 4.0 X 15mm Clive Walton Rx Coronary Stent [id number] - [id number] - [id number] Implanted:Qty: 1 on 11/19/2024 by Luca Lott MD at [facility] Stent N/A: Saphenous Vein Graft Medtronic Card Vasc Surgery 05/05/2027 ONYXNG4 0015UX / [id number] / [id number] Medtronic Card Vasc Surgery 2.50 X 12mm Clive Walton Rx Coronary Stent [id number] - [id number] - [id number] Implanted:Qty: 1 on 12/25/2024 by Luca Lott MD at [facility] Stent Medtronic Card Vasc Surgery 06/03/2027 [id number] [id number] / [id number] / [id number] [employer] Pam Synergy Xd Monorail 3mm 20mm 144cm Delivery System 1 Access Port [id number] - [id number] - [id number] Implanted:Qty: 1 on 02/23/2025 by Luca Lott MD at [facility] Stent [employer] Pam 06/08/2026 [id number] / [id number] / [id number] Painter Vascular System Closure Repair Femoral Artery Suture Mediated Perclose Prostyle 71399-86 - [id number] - [id number] Implanted:Qty: 1 on 05/21/2024 by Felipe Gerber MD at [facility] Vascular Closure Device Left: Common Femoral Artery Painter Vascular 02/17/2026 38536-2 3 / [id number] / [id number] Ter[employer] Pam Angio-Seal Vip 6fr Closere Device 185313 - [id number] - [id number] Implanted:Qty: 1 on 11/19/2024 by Luca Lott MD at [facility] Vascular Closure Device N/A: Saphenous Vein Graft [employer] Pam 04/29/2025 078616 / [id number] / [id number] [employer] Pam Angio-Seal Vip 6fr Closere Device 286528 - [id number] - [id number] Implanted:Qty: 1 on 12/25/2024 by Sanket Quiroz MD at [facility] Vascular Closure Device Right: Common Femoral Artery [employer] Pam 06/30/2025 690171 / [id number] / [id number] Description:RFA [employer] Pam Angio-Seal Vip Bondek-Plus 8fr .038in 70cm Hemostatic Latex Free 242504 - [id number] - [id number] Implanted:Qty: 1 on 12/25/2024 by Sanket Quiroz MD at [facility] Vascular Closure Device Right: Femoral Vein [employer] Pam 07/21/2025 957498 / [id number] / [id number] Description:RFV [employer] Pam Angio-Seal Vip 6fr Closere Device 239656 - [id number] - [id number] Implanted:Qty: 1 on 05/11/2025 by Rio Jacobs MD at [facility] Vascular Closure Device Right: Common Femoral Artery [employer] Pam 12/31/2025 375531 / [id number] / [id number] [employer] Pam [id number] Supple Ronna-Guard Thompson Processing 4x4cm Patch Cardiovascular - [id number] - [id number] Implanted:Qty: 1 on 02/11/2019 by Christopher Holman MD at [facility] N/A: Chest [employer] Pam 06/03/2023 [id number] / 3211-04 04-0010 / [id number] Jam[employer] [id number] Certitude Brown 3 Atrion 18fr Transcatheter Introducer Crimper - [id number] - [id number] Implanted:Qty: 1 on 02/11/2019 by Christopher Holman MD at [facility] N/A: Heart [employer] [id number] / [id number] / Medtronic Inc [id number] [place] Curl Cath Beta-Cap Holden 15fr 57cm 2 Cuff Clamp Adapter - [id number] Implanted:Qty: 1 on 12/27/2021 by Margarita Montoya MD at [facility] N/A: Abdomen Medtronic Inc 10/14/2023 8811-31 [...] 4:14 PM CDT Coronary artery disease involving jackson coronary artery of jackson heart without angina pectoris POCT ACTIVATED CLOTTING [...] - REMOTE Routine 04/23/2025 12:51 AM CDT EXTENDED/FCI HOLTER PATCH (>48 HOURS UP TO 7 [...] * (ABNORMAL) eGFR (05/11/2025 6:30 PM CDT) Pathologist [facility] eGFR 3(L) >=60 mL/min/1. 73 m2 Comment: [...] MD LAB BLOOD ORDERABLES Final R esult [facility] Department [place] [address] * Differential, auto (05/11/2025 6:30 PM CDT) Neutrophil abs 4.30 1.50 - 6.50 K/cumm Comment:Collection date/time has been modified to: 18:30:00. Previous collection date/time: 17:32:00. Imm gran abs 0.02 0.00 - 0.10 K/cumm [facility] Comment:Collection date/time has been modified to: 18:30:00. Previous collection date/time: 17:32:00. Lymphocyte abs 0.83 0.80 - 3.30 K/cumm [facility] Comment:Collection date/time has been modified to: 18:30:00. Previous collection date/time: 17:32:00. Monocyte abs 0.28 0.20 - 0.80 K/cumm [facility] Comment:Collection date/time has been modified to: 18:30:00. Previous collection date/time: 17:32:00. Eosinophil abs 0.19 0.00 - 0.50 K/cumm [facility] Comment:Collection date/time has been modified to: 18:30:00. Previous collection date/time: 17:32:00. Basophil abs 0.02 0.00 - 0.10 K[facility] Comment:Collection date/time has been modified to: 18:30:00. Previous collection date/time: 17:32:00. Neutrophil pct 76.1 % [facility] Comment: Collection date/time has been modified to: 18:30:00. Previous collection date/time: 17:32:00. Interpretive Data Percent cell count reference ranges are not reported, since discordance with absolute values may lead to misinterpretation of CBC data. Current Interpretive Data was last revised on 2018. Imm gran pct 0.4 % [facility] Comment: Collection date/time has been modified to: 18:30:00. Previous collection date/time: 17:32:00. Interpretive Data Percent cell count reference ranges are not reported, since discordance with absolute values may lead to misinterpretation of CBC data. Current Interpretive Data was last revised on 2018. Lymphocyte pct 14.7 % [facility] Comment: Collection date/time has been modified to: 18:30:00. Previous collection date/time: 17:32:00. Interpretive Data Percent cell count reference ranges are not reported, since discordance with absolute values may lead to misinterpretation of CBC data. Current Interpretive Data was last revised on 2018. Monocyte pct 5.0 % [facility] Comment: Collection date/time has been modified to: 18:30:00. Previous collection date/time: 17:32:00. Interpretive Data Percent cell count reference ranges are not reported, since discordance with absolute values may lead to misinterpretation of CBC data. Current Interpretive Data was last revised on 2018. Eosinophil pct 3.4 % [facility] Comment: Collection date/time has been modified to: 18:30:00. Previous collection date/time: 17:32:00. Interpretive Data Percent cell count reference ranges are not reported, since discordance with absolute values may lead to misinterpretation of CBC data. Current Interpretive Data was last revised on 2018. Basophil pct 0.4 % [facility] Comment: Collection date/time has been modified to: 18:30:00. Previous collection date/time: 17:32:00. Interpretive Data Percent cell count reference ranges are not reported, since discordance with absolute values may lead to misinterpretation of CBC data. Current Interpretive Data was last revised on 2018. Blood 05/11/2025 6:30 PM CDT 05/11/2025 6:39 PM CDT Luca Lott MD LAB BLOOD ORDERABLES Edited Result - Final [facility] Department of [place] [address] * (ABNORMAL) CBC with auto differential (05/11/2025 6:30 PM CDT) WBC 5.64 3.80 - 9.90 K/cumm Comment:Collection date/time has been modified to: 18:30:00. Previous collection date/time: 17:32:00. Hgb 11.5(L) 11.9 - 15.5 g/dL [facility] Comment:Collection date/time has been modified to: 18:30:00. Previous collection date/time: 17:32:00. Hct 36.8 35.6 - 45.5 % [facility] Comment:Collection date/time has been modified to: 18:30:00. Previous collection date/time: 17:32:00. Plt 158 150 - 400 K/cumm [facility] Comment:Collection date/time has been modified to: 18:30:00. Previous collection date/time: 17:32:00. MPV 10.7 9.1 - 12.[address] [facility] Comment:Collection date/time has been modified to: 18:30:00. Previous collection date/time: 17:32:00. RBC 3.94 3.90 - 5.20 M/cumm [facility] Comment:Collection date/time has been modified to: 18:30:00. Previous collection date/time: 17:32:00. MCV 93.4 81.3 - 96.4 fL [facility] Comment:Collection date/time has been modified to: 18:30:00. Previous collection date/time: 17:32:00. MCH 29.2 27.1 - 33.3 pg [facility] Comment:Collection date/time has been modified to: 18:30:00. Previous collection date/time: 17:32:00. MCHC 31.3(L) 32.3 - 35.7 g/dL [facility] Comment:Collection date/time has been modified to: 18:30:00. Previous collection date/time: 17:32:00. RDW CV 16.3(H) 11.1 - 14.9 % [facility] Comment:Collection date/time has been modified to: 18:30:00. Previous collection date/time: 17:32:00. RDW SD 55.2(H) 35.7 - 48.1 fL [facility] Comment:Collection date/time has been modified to: 18:30:00. Previous collection date/time: 17:32:00. NRBC abs 0.00 0.00 - 0.01 K/cumm [facility] Comment:Collection date/time has been modified to: 18:30:00. Previous collection date/time: 17:32:00. Blood 05/11/2025 6:30 PM CDT 05/11/2025 6:39 PM CDT Luca Lott MD LAB BLOOD ORDERABLES Edited Result - Final [facility] Department [place] [address] * (ABNORMAL) Basic metabolic panel (05/11/2025 6:30 PM CDT) Sodium 134(L) 135 - 145 mmol/L Potassium, pl 5.4(H) 3.3 - 4.9 mmol/L [facility] Chloride 96(L) 97 - 110 mmol/L [facility] CO2 26 22 - 32 mmol/L [facility] Anion gap 12 2 - 15 mmol/L [facility] BUN 57(H) 6 - 25 mg/dL [facility] Creatinine 13.94(H) 0.60 - 1.10 mg/dL [facility] Glucose 114 70 - 199 mg/dL [facility] Comment: Interpretive Data Fasting glucose >/= 126 [...] 2022. Calcium 8.3(L) 8.5 - 10.3 mg/dL [facility] Blood 05/11/2025 6:30 PM CDT 05/11/2025 6:39 PM CDT Luca Lott MD LAB BLOOD ORDERABLES Final R esult Performing Organization Address City/[facility]/ZIP Co de Phone Number [facility] Department [place] [address] * LEFT HEART CATHETERIZATION WITH CORONARY ANGIOGRAPHY [...] 54 y.o. female : 1970 MR number: [id number] Date of Service: 05/11/2025 Business Development Agent: Luca Lott MD Fellow: Rio Jacobs MD [...] The patient was brought to the chemical laboratory chief and placed on the table Bilateral groins [...] coronary artery angiogram performed using a 6 Austrian JL 3 guide Percutaneous coronary intervention performed on the Proximal vein graft to the LAD. This was an ACC/AHA Type C. Initial Lesion Length 12mm and final lesion Length 12mm. Initial KAROLINA Flow 3 Final KAROLINA Flow 3. Equipment used: 6 3D RC [place] IVUS Catheter, Manager [employer] 50 wire, 0.9 mm laser atherectomy catheter [...] got the guide to sit and a Manager [employer] 50 wire down into the LAD. Next [...] 284(H) 123 - 168 sec POC Performer [id number] [facility] POC Device Number [id number] [facility] Blood 05/11/2025 4:12 PM CDT 05/11/2025 4:12 PM CDT Luca Lott MD LAB POCT ORDERABLES - DEVICE Final Result Performing Organization Address [facility]/ZIP Co de Phone Number [facility] Department [place] [address] * (ABNORMAL) POCT Activated clotting time, low range (05/11/2025 3:50 PM CDT) [facility] ACT 290(H) 123 - 168 sec POC Performer [id number] [facility] POC Device Number [id number] [facility] Blood 05/11/2025 3:50 PM CDT 05/11/2025 3:50 PM CDT Luca Lott MD LAB POCT ORDERABLES - DEVICE Final Result Performing Organization Address [facility] Co de Phone Number [facility] Department [place] [address] * (ABNORMAL) Potassium, whole blood (05/11/2025 12:00 PM CDT) [facility] Potassium, bld 5.0(H) 3.3 - 4.9 mmol/L Blood 05/11/2025 12:0 0 PM CDT 05/11/2025 12:12 PM CDT us Kasi Garcia METALLURGIST HELPER LAB BLOOD ORDERABLES F inal Result Performing Organization Address [facility] Co de Phone Number [facility] of [facility] [place], [place] [id number] * (ABNORMAL) POC Blood Gas and Chemistries, Arterial - (05/11/2025 11:46 AM CDT) [facility] K POC 5.5(H) 3.3 - 4.9 mmol/L [...] Organization Address [facility] de Phone Number [facility] [place] [address] * TRANSTHORACIC ECHO (TTE) COMPLETE W DOPPLER/CF W CONTRAST (05/07/2025 10:16 AM CDT) [facility] Estimated EF 55-60 % CONS SCIMAGE Anatomical Region Laterality Modality Ultrasound 05/06/2025 3:39 PM CDT Narrative 05/06/2025 6:[address] [facility] [place] [address] Transthoracic Echocardiographic Report Patient Name: ESTUARDO COPELAND M : 1970 (54y 5m) Gender: F Study Date: 05/06/2025 03:39:15 PM Ht(Inch): 64 Wt(Lb): 132.94 BSA: 1.65 Form Setter/Driver: Brad Tripathi RDCS Location: [id number] Order Provider: ASHLEY CHAHAL Heart Rate: 65 [...] Procedure Note Job Gordon MD - 05/06/2025 [facility] Cardiac [place] [address] Transthoracic Echocardiographic Report Patient Name: ESTUARDO COPELAND M : 1970 (54y 5m) Gender: F Study Date: 05/06/2025 03:39:15 PM Ht(Inch): 64 Wt(Lb): 132.94 BSA: 1.65 Form Setter/Driver: Brad Tripathi RDCS Location: [id number] Order Provider: ASHLEY CHAHAL Heart Rate: 65 [...] cm/m2 [ 1.00 - 2.00 ] MV QBU676.27 msec [ 20.00 - 100.00 ] Asc Ao Diam 2D 1.63 cm MVA PHT2.11 cm2 Asc Ao Index 0.99 cm/m2 MV Decel Fkfa565.23 msec [ 104.00 - 258.00 ] Med [...] ORDERAB LES Final Result Performing Organization Address City/[facility]/ZIP Co de Phone Number [facility] Department [place] [address] * (ABNORMAL) Vitamin D 25 hydroxy (05/07/2025 6:17 AM CDT) Pathologist [facility] Vitamin D 25-OH 22(L) 30 - 80 ng/mL Blood 05/07/2025 6:17 AM CDT 05/07/2025 6:55 AM CDT Ashley Chahal MD LAB BLOOD ORDERAB LES Final Result [facility] Department [place] [address] * (ABNORMAL) CBC without differential (05/07/2025 6:17 AM CDT) [facility] WBC 6.90 3.80 - 9.90 K/cumm Hgb 12.4 11.9 - 15.5 g/dL [facility] Hct 39.1 35.6 - 45.5 % [facility] Plt 157 150 - 400 K/cumm [facility] MPV 10.4 9.1 - 12.3 fL [facility] RBC 4.19 3.90 - 5.20 M/cumm [facility] MCV 93.3 81.3 - 96.4 fL [facility] MCH 29.6 27.1 - 33.3 pg [facility] MCHC 31.7(L) 32.3 - 35.7 g/dL [facility] RDW CV 16.6(H) 11.1 - 14.9 % [facility] RDW SD 56.4(H) 35.7 - 48.1 fL [facility] NRBC abs 0.00 0.00 - 0.01 K/cumm [facility] Blood 05/07/2025 6:17 AM CDT 05/07/2025 6:55 AM CDT us Ashley Chahal MD LAB BLOOD ORDERAB LES Final Result Performing Organization Address City/[facility]/ZIP Co de Phone Number [facility] Department [place] [address] * (ABNORMAL) PTH (05/07/2025 6:17 AM CDT) [facility] PTH 9(L) 15 - 65 pg/mL Blood 05/07/2025 6:17 AM CDT 05/07/2025 6:55 AM CDT us Ashley Chahal MD LAB BLOOD ORDERAB LES Final Result [facility] Department [place] [address] * (ABNORMAL) Renal function panel (05/07/2025 6:17 AM CDT) [facility] Sodium 136 135 - 145 mmol/L Potassium, pl 5.1(H) 3.3 - 4.9 mmol/L [facility] Chloride 96(L) 97 - 110 mmol/L [facility] CO2 27 22 - 32 mmol/L [facility] Anion gap 13 2 - 15 mmol/L [facility] BUN 52(H) 6 - 25 mg/dL [facility] Creatinine 14.17(H) 0.60 - 1.10 mg/dL [facility] Glucose 86 70 - 199 mg/dL [facility] Comment: Interpretive Data Fasting glucose >/= 126 [...] 2022. Calcium 8.8 8.5 - 10.3 mg/dL [facility] Phosphorus, pl 9.9(H) 2.3 - 4.5 mg/dL [facility] Albumin 2.8(L) 3.5 - 5.0 g/dL [facility] Blood 05/07/2025 6:17 AM CDT 05/07/2025 6:55 AM CDT Ashley Chahal MD LAB BLOOD ORDERAB LES Final Result [facility] Department [place] [address] * Cortisol (05/06/2025 8:36 AM CDT) Cortisol 11.7 4.8 - 19.5 mcg/dL Comment: Interpretive Data: Morning hours 6-10 a.m. 4.8 - 19.5 mcg/dL Afternoon hours 4-8 p.m. 2.5 - 11.9 mcg/dL This analyte undergoes marked diurnal variation. Current interpretive data was last revised 24. Blood 05/06/2025 8:36 AM CDT 05/06/2025 9:27 AM CDT Ashley Chahal MD LAB BLOOD ORDERAB LES Final Result [facility] [place] [address] * (ABNORMAL) eGFR (05/06/2025 3:41 AM CDT) [...] LAB BLOOD ORDERAB LES Final Result [facility] [place] [address] * (ABNORMAL) Magnesium (05/06/2025 3:41 AM CDT) Magnesium 2.7(H) 1.4 - 2.5 mg/dL Blood 05/06/2025 3:41 AM CDT 05/06/2025 4:14 AM CDT us Ashley Chahal MD LAB BLOOD ORDERAB LES Final Result [facility] Department [place] [address] * (ABNORMAL) Renal function panel (05/06/2025 3:41 AM CDT) Sodium 136 135 - 145 mmol/L Potassium, pl 4.9 3.3 - 4.9 mmol/L [facility] Chloride 97 97 - 110 mmol/L [facility] CO2 25 22 - 32 mmol/L [facility] Anion gap 14 2 - 15 mmol/L [facility] BUN 56(H) 6 - 25 mg/dL [facility] Creatinine 14.58(H) 0.60 - 1.10 mg/dL [facility] Glucose 107 70 - 199 mg/dL [facility] Comment: Interpretive Data Fasting glucose >/= 126 [...] 2022. Calcium 9.0 8.5 - 10.3 mg/dL [facility] Phosphorus, pl 10.0(H) 2.3 - 4.5 mg/dL [facility] Albumin 2.7(L) 3.5 - 5.0 g/dL [facility] Blood 05/06/2025 3:41 AM CDT 05/06/2025 4:14 AM CDT us Ashley Chahal MD LAB BLOOD ORDERAB LES Final Result [facility] Department [place] [address] * (ABNORMAL) Troponin I high-sensitivity 6-hour (05/05/2025 11:37 AM CDT) Trop I hs 172(H) <=17 ng/L Comment: Previous critical value noted within 48 hours ago. Interpretive Data For further hscTnI resources including the diagnostic algorithm and an aid in interpretation, copy and paste this link: [email or web address]/[email or web address] Current Interpretive Data last revised 2020. Trop I hs pct delta -11 % [facility] Trop I hs interp Equivocal [facility] Blood 05/05/2025 11:3 7 AM CDT 05/05/2025 12:24 PM CDT Jacqueline Jules MD LAB BLOOD ORDER WESTON Final Result Performing Organization Address [facility] de Phone Number [facility] Department [place] [address] * (ABNORMAL) Troponin I high-sensitivity 4-hour (05/05/2025 9:06 AM CDT) Trop I hs 189(H) <=17 ng/L Comment: Interpretive Data For further hscTnI resources including the diagnostic algorithm and an aid in interpretation, copy and paste this link: [email or web address]/show/[email or web address] Current Interpretive Data last revised 2020. Trop I hs pct delta -3 % [facility] Trop I hs interp Insignificant [facility] Blood 05/05/2025 9:06 AM CDT 05/05/2025 9:54 AM CDT Jacqueline Jules MD LAB BLOOD ORDER WESTON Final Result Performing Organization Address [facility] [place] [address] * (ABNORMAL) Troponin I high-sensitivity 2-hour (05/05/2025 6:36 AM CDT) Trop I hs 192(H) <=17 ng/L Comment: Interpretive Data For further hscTnI resources including the diagnostic algorithm and an aid in interpretation, copy and paste this link: [email or web address]/show/[email or web address] Current Interpretive Data last revised 2020. Trop I hs pct delta -1 % [facility] Trop I hs interp Insignificant [facility] Blood 05/05/2025 6:36 AM CDT 05/05/2025 8:08 AM CDT Jacqueline Jules MD LAB BLOOD ORDER WESTON Final Result Performing Organization Address [facility] [place] [address] * (ABNORMAL) Troponin I high-sensitivity series (baseline, 2hr, 4hr, 6hr) (05/05/2025 4:48 AM CDT) Pathologist [facility] Trop I hs 194(H) <=17 ng/L Comment: Interpretive Data For further hscTnI resources including the diagnostic algorithm and an aid in interpretation, copy and paste this link: [email or web address]/show/[email or web address] Current Interpretive Data last revised 2020. Blood 05/05/2025 4:48 AM CDT 05/05/2025 5:03 AM CDT Jacqueline Jules MD LAB BLOOD ORDER WESTON Final Result Performing Organization Address City/[facility] [place] [address] * (ABNORMAL) eGFR (05/05/2025 4:48 AM CDT) [...] 4:48 AM CDT 05/05/2025 5:03 AM CDT [facility] Lacey Jules MD LAB BLOOD ORDER WESTON Final Result [facility] Department [place] [address] * (ABNORMAL) Pro B-type natriuretic peptide (05/05/2025 [...] BLOOD ORDER WESTON Final Result [facility] [place] [address] * (ABNORMAL) Thyroid Function [place] (05/05/2025 4:48 AM CDT) TSH 14.50(H) 0.30 - 4.20 mcIUnit/mL Blood 05/05/2025 4:48 AM CDT 05/05/2025 5:03 AM CDT Jacqueline Jules MD LAB BLOOD ORDER WESTON Final Result [facility] [place] [address] * Protime-INR (05/05/2025 4:48 AM CDT) Pathologist [facility] PT 12.4 9.7 - 13.0 sec INR 1.14 0.90 - 1.20 [facility] Comment: Interpretive data Oral anticoagulant therapeutic ranges: Venous thromboembolism prophylaxis or treatment: 2.0-3.0 CARDIOLOGY Standard range: 2.0-3.0 High-intensity range: 2.5-3.5 Refer to indication-specific guidelines for appropriate target ranges for prosthetic heart valve replacement. Current interpretive data was last revised on 2019. Blood 05/05/2025 4:48 AM CDT 05/05/2025 5:13 AM CDT Narrative [facility] - 05/05/2025 5:19 AM CDT Baseline prior to apixaban initiation. Jacqueline Jules MD LAB BLOOD ORDER WESTON Final Result [facility] Department [place] [address] * (ABNORMAL) CBC without differential (05/05/2025 4:48 AM CDT) [facility] WBC 5.83 3.80 - 9.90 K/cumm Hgb 11.8(L) 11.9 - 15.5 g/dL [facility] Hct 37.7 35.6 - 45.5 % [facility] Plt 131(L) 150 - 400 K/cumm [facility] MPV 10.9 9.1 - 12.3 fL [facility] RBC 4.00 3.90 - 5.20 M/cumm [facility] MCV 94.3 81.3 - 96.4 fL [facility] MCH 29.5 27.1 - 33.3 pg [facility] MCHC 31.3(L) 32.3 - 35.7 g/dL [facility] RDW CV 16.8(H) 11.1 - 14.9 % [facility] RDW SD 56.8(H) 35.7 - 48.1 fL [facility] NRBC abs 0.00 0.00 - 0.01 K/cumm [facility] Blood 05/05/2025 4:48 AM CDT 05/05/2025 5:04 AM CDT Jacqueline Jules MD LAB BLOOD ORDER WESTON Final Result Performing Organization Address City/[facility] Co de Phone Number [facility] [place] [address] * (ABNORMAL) T4, free (05/05/2025 4:48 AM CDT) Free T4 0.70(L) 0.90 - 1.70 ng/dL Blood 05/05/2025 4:48 AM CDT 05/05/2025 5:03 AM CDT Narrative [facility] - 05/05/2025 6:23 AM CDT This test was reflexed from a TSH result. Jacqueline Jules MD LAB BLOOD ORDER WESTON Edited Result - Final Performing Organization Address [facility] [place] [address] * (ABNORMAL) Phosphorus (05/05/2025 4:48 AM CDT) Phosphorus, pl 11.7(H) 2.3 - 4.5 mg/dL Blood 05/05/2025 4:48 AM CDT 05/05/2025 5:03 AM CDT Jacqueline Jules MD LAB BLOOD ORDER WESTON Final Result Performing Organization Address City/[facility] Co de Phone Number [place], [place] [id number] * (ABNORMAL) Magnesium (05/05/2025 4:48 AM CDT) Magnesium 2.9(H) 1.4 - 2.5 mg/dL Blood 05/05/2025 4:48 AM CDT 05/05/2025 5:03 AM CDT Jacqueline Jules MD LAB BLOOD ORDER WESTON Final Result Performing Organization Address City/[facility]/ZIP Co de Phone Number [facility] [place] [address] * Bilirubin, direct (05/05/2025 4:48 AM CDT) [facility] Bilirubin, direct <0.2 0.1 - 0.3 mg/dL Blood 05/05/2025 4:48 AM CDT 05/05/2025 5:03 AM CDT Jacqueline Jules MD LAB BLOOD ORDER WESTON Final Result Performing Organization Address [facility] de Phone Number [facility] [place] [address] * (ABNORMAL) Comprehensive metabolic panel (05/05/2025 4:48 AM CDT) [facility] Sodium 140 135 - 145 mmol/L Potassium, pl 5.1(H) 3.3 - 4.9 mmol/L [facility] Chloride 100 97 - 110 mmol/L [facility] CO2 24 22 - 32 mmol/L [facility] Anion gap 16(H) 2 - 15 mmol/L [facility] BUN 60(H) 6 - 25 mg/dL [facility] Creatinine 14.48(H) 0.60 - 1.10 mg/dL [facility] Glucose 91 70 - 199 mg/dL [facility] Comment: Interpretive Data Fasting glucose >/= 126 [...] Calcium 9.5 8.5 - 10.3 mg/dL [facility] Bilirubin, total 0.2 0.1 - 1.2 mg/dL [facility] Protein, pl 5.6(L) 6.5 - 8.5 g/dL [facility] Albumin 2.8(L) 3.5 - 5.0 g/dL [facility] Alk phos 71 40 - 130 Units/L [facility] ALT 9 7 - 45 Units/L [facility] AST 16 10 - 45 Units/L [facility] Blood 05/05/2025 4:48 AM CDT 05/05/2025 5:03 AM CDT [facility] Lacey Jules MD LAB BLOOD ORDER WESTON Final Result [facility] Department [place] [address] * XR Chest 1 View (05/04/2025 11:16 [...] PM CDT) Ventricular Rate EKG/Min 82 BPM [facility] Atrial Rate 82 BPM [facility] [place]-Interval (MSEC) 160 ms [facility] QRS-Interval (MSEC) 84 ms [facility] QT-Interval (MSEC) 368 ms [facility] QTc 429 ms [facility] P [place] -16 degrees [facility] R [place] -27 degrees [facility] T [place] 134 degrees [facility] Diagnosis Atrial-paced rhythm Minimal voltage criteria for LVH, may be normal variant ( Oliverio product ) Septal infarct (cited on or before 20-FEB-2025) T wave abnormality, consider lateral ischemia Abnormal ECG When compared with ECG of 22-FEB-2025 09:14, Electronic atrial pacemaker has replaced Sinus rhythm Confirmed by HARJINDER HANDY M.D ([id number]) on 05/05/2025 2:09:39 PM [facility] 05/04/2025 8:59 PM CDT 05/05/2025 2:09 PM CDT Jacqueline Jules MD ECG ORDERABLES Final Result [facility] * Cardiology Document Scan (04/24/2025 3:35 PM CDT) Anatomical Region Laterality Modality Other Eudin Springer MD CV CARDIAC SERVICES PROCEDU RES [...] appropriate. No short V-V intervals. Presenting Rhythm (NH) Atrial Sensing-Ventricular Sensing (-VS) --- /VS (SR) [...] andappropriate. No short V-V intervals. Presenting Rhythm (NH) Atrial Sensing-Ventricular Sensing (-VS) --- /VS (SR) [...] CV CARDIAC SERVICES PROCEDURES Final Result * Extended/Senior Care Holter Patch (>48 hours up to 7 [...] Ref Provider: LUCA LOTT PROCEDURES: Holter Report: EXTENDED/FCI HOLTER PATCH (>48 HOURS UP TO 7 DAYS) [[id number]]. Enrollment Period: 2025-04-27 00:00:00 through 2025-04-29 00:00:00. Location: [facility] [address] INDICATIONS: R00.2 Palpitations. FINDINGS: Holter Data: Min [...] events Runs (VT): 6 events Total beats: 57761 SIGNIFICANT PAUSES: 0 >3 sec Protocol: Recording Duration (Ordered): [id number] Recording Duration (Actual): 09337.3 SUMMARY: *The predominant rhythm was Sinus with [...] The PDF can be found in the [facility] Patient chart. Please go to the [...] Ref Provider: LUCA LOTT PROCEDURES: Holter Report: EXTENDED/FCI HOLTER PATCH (>48 HOURS UP TO 7 DAYS)[[id number]]. Enrollment Period: 2025-04-27 00:00:00 through 2025-04-29 00:00:00. Location: [facility] [address] INDICATIONS: R00.2 Palpitations. FINDINGS: Holter Data: Min [...] events Runs (VT): 6 events Total beats: 18899 SIGNIFICANT PAUSES: 0 >3 sec Protocol: Recording Duration (Ordered): [id number] Recording Duration (Actual): 10540.3 SUMMARY: *The predominant rhythm was Sinus with [...] The PDF can be found in the [facility] Patient chart. Please go to theCardiology [...] run of SVT. Electronically Signed By: Deborah Slacedo M.D. 05/10/2025 12:33:26 PM CDT Electronically Signed By: Deborah Salcedo M.D. 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 Single Antigen Antibody [...] a method developed and validated by the [facility] HLA laboratory based on an FDA-approved IVD kit (LABScreen Single-Antigen, [employer], [place], [place]). All patient serum samples are pretreated with EDTA before the screen to prevent complement interference. Additional serum treatments, such as adsorption and DTT treatment, may be performed as indicated. Interpretive comments: Low risk: MFI [id number]. Moderate risk: MFI [id number]. Increased risk: MFI >/= 5000. The presence [...] performed at the [facility], [address] [place] [address], 5th floor, [place], [address]. IA # [id number]. Rosa Millan, Ph.D., Training Director, [facility] Wilmer Prescott M.D., Ph.D., Real Estate Listing Consultant, [facility] Alma Payton, Ph.D., CLIA Real Estate Listing Consultant, [facility] Current methodology and interpretive comments last revised on 11/15/2022. us Salina Hector MD LAB BLOOD ORDERABLES Final Resul t HISTOT[facility] * HLA Antibody Screen by PRA or SAB per Schedule (Class I and Class II) (03/01/2025 10:00 AM CDT) Blood 03/01/2025 10:0 0 AM CDT Narrative HISTOT[facility] - WASH OIL PUMP OPERATOR HELPER Sample received in lab and stored. No testing performed at this time. us Salina Hector MD LAB BLOOD ORDERABLES Final Resul t Performing Organization Address City/[facility] Co de Phone Number HISTOTRAC * [...] BLOOD ORDERABLES Final Result [facility] Department [place] [address] * (ABNORMAL) Differential, auto (02/24/2025 9:50 AM CDT) Neutrophil abs 4.72 1.50 - 6.50 K/cumm Imm gran abs 0.02 0.00 - 0.10 K/cumm [facility] Lymphocyte abs 0.73(L) 0.80 - 3.30 K/cumm [facility] Monocyte abs 0.42 0.20 - 0.80 K/cumm [facility] Eosinophil abs 0.21 0.00 - 0.50 K/cumm [facility] Basophil abs 0.04 0.00 - 0.10 K/cumm [facility] Neutrophil pct 76.9 % [facility] Comment: Interpretive Data Percent cell count reference ranges are not reported, since discordance with absolute values may lead to misinterpretation of CBC data. Current Interpretive Data was last revised on 2018. Imm gran pct 0.3 % [facility] Comment: Interpretive Data Percent cell count reference ranges are not reported, since discordance with absolute values may lead to misinterpretation of CBC data. Current Interpretive Data was last revised on 2018. Lymphocyte pct 11.9 % [facility] Comment: Interpretive Data Percent cell count reference ranges are not reported, since discordance with absolute values may lead to misinterpretation of CBC data. Current Interpretive Data was last revised on 2018. Monocyte pct 6.8 % [facility] Comment: Interpretive Data Percent cell count reference ranges are not reported, since discordance with absolute values may lead to misinterpretation of CBC data. Current Interpretive Data was last revised on 2018. Eosinophil pct 3.4 % [facility] Comment: Interpretive Data Percent cell count reference ranges are not reported, since discordance with absolute values may lead to misinterpretation of CBC data. Current Interpretive Data was last revised on 2018. Basophil pct 0.7 % [facility] Comment: Interpretive Data Percent cell count reference ranges are not reported, since discordance with absolute values may lead to misinterpretation of CBC data. Current Interpretive Data was last revised on 2018. Blood 02/24/2025 9:50 AM CDT 02/24/2025 10:17 AM CDT Dasha Montez DO LAB BLOOD ORDERABLES Final Result [facility] Department [place] [address] * (ABNORMAL) CBC with auto differential (02/24/2025 9:50 AM CDT) [facility] WBC 6.14 3.80 - 9.90 K/cumm Hgb 12.5 11.9 - 15.5 g/dL [facility] Hct 39.5 35.6 - 45.5 % [facility] Plt 177 150 - 400 K/cumm [facility] MPV 10.8 9.1 - 12.3 fL [facility] RBC 4.37 3.90 - 5.20 M/cumm [facility] MCV 90.4 81.3 - 96.4 fL [facility] MCH 28.6 27.1 - 33.3 pg [facility] MCHC 31.6(L) 32.3 - 35.7 g/dL [facility] RDW CV 15.9(H) 11.1 - 14.9 % [facility] RDW SD 51.0(H) 35.7 - 48.1 fL [facility] NRBC abs 0.00 0.00 - 0.01 K/cumm [facility] Blood 02/24/2025 9:50 AM CDT 02/24/2025 10:17 AM CDT Dasha Montez DO LAB BLOOD ORDERABLES Final Result [facility] Department [place] [address] * (ABNORMAL) Basic metabolic panel (02/24/2025 9:50 AM CDT) Pathologist [facility] Sodium 136 135 - 145 mmol/L Potassium, pl 5.0(H) 3.3 - 4.9 mmol/L [facility] Chloride 93(L) 97 - 110 mmol/L [facility] CO2 27 22 - 32 mmol/L [facility] Anion gap 16(H) 2 - 15 mmol/L [facility] BUN 43(H) 6 - 25 mg/dL [facility] Creatinine 11.83(H) 0.60 - 1.10 mg/dL [facility] Glucose 82 70 - 199 mg/dL [facility] Comment: Interpretive Data Fasting glucose >/= 126 [...] 2022. Calcium 7.9(L) 8.5 - 10.3 mg/dL [facility] Blood 02/24/2025 9:50 AM CDT 02/24/2025 10:17 AM CDT Dasha Montez DO LAB BLOOD ORDERABLES Final Result [facility] Department [place] [address] * (ABNORMAL) eGFR (02/23/2025 11:43 PM CDT) [...] Organization Address [facility]/ZIP Co de Phone Number [facility] Department [place] [address] * VerifyNow clopidogrel (02/23/2025 11:43 PM CDT) [...] ORDERABLES Fin al Result Performing Organization Address City/[facility]/ZIP Co de Phone Number [facility] Department [place] [address] * (ABNORMAL) Phosphorus (02/23/2025 11:43 PM CDT) [facility] Phosphorus, pl 7.6(H) 2.3 - 4.5 mg/dL Blood 02/23/2025 11:4 3 PM CDT 02/24/2025 12:22 AM CDT us Jaimie Giordano MD LAB BLOOD ORDERABLES Final Result [facility] [place] [address] * Magnesium (02/23/2025 11:43 PM CDT) [facility] Magnesium 2.4 1.4 - 2.5 mg/dL Blood 02/23/2025 11:4 3 PM CDT 02/24/2025 12:22 AM CDT us Jaimie Giordano MD LAB BLOOD ORDERABLES Final Result [facility] Department [place] [address] * (ABNORMAL) Basic metabolic panel (02/23/2025 11:43 PM CDT) [facility] Sodium 133(L) 135 - 145 mmol/L Potassium, pl 4.9 3.3 - 4.9 mmol/L [facility] Chloride 95(L) 97 - 110 mmol/L [facility] CO2 27 22 - 32 mmol/L [facility] Anion gap 11 2 - 15 mmol/L [facility] BUN 52(H) 6 - 25 mg/dL [facility] Creatinine 11.94(H) 0.60 - 1.10 mg/dL [facility] Glucose 89 70 - 199 mg/dL [facility] Comment: Interpretive Data Fasting glucose >/= 126 [...] 2022. Calcium 8.0(L) 8.5 - 10.3 mg/dL [facility] Blood 02/23/2025 11:4 3 PM CDT 02/24/2025 12:22 AM CDT us Jaimie Giordano MD LAB BLOOD ORDERABLES Final Result [facility] Department [place] [address] * LEFT HEART CATHETERIZATION WITH CORONARY ANGIOGRAPHY [...] 54 y.o. female : 1970 MR number: [id number] Date of Service: 02/23/2025 Business Development Agent: Luca Lott MD Fellow: Sanket Quiroz MD Fellow: Hiral Valverde MD Referring physician: Raad INDICATION: NSTEMI PATIENT CLINICAL PROFILE: Estuardo oCpeland is a 54 y.o. female with a history of Coronary artery disease status post coronary bypass grafting and numerous PCIs, aortic stenosis status post surgical valve placement with redo TAVR and ischemic cardiomyopathy on peritoneal dialysis presents for NSTEMI with chest pain. She recently underwent PCI to the vein graft to her LAD and her jackson left main. She now presents for urgent cardiac catheterization PROCEDURE: The risks, benefits and alternatives of the procedures and moderate sedation were explained to the patient and informed consent was obtained. The patient was brought to the chemical laboratory chief and placed on the table Bilateral groins [...] the LAD angiogram performed using a 6 [place] 3D RC Percutaneous coronary intervention performed on theSVG to the Proximal LAD. This was an ACC/AHA Type C. Initial Lesion Length 12mm and final lesion Length 20mm. Initial KAROLINA Flow 3 Final KAROLINA Flow 3. Equipment used: 6 3DRC, [place] IVUS Catheter, [employer] 50 wire, 0.9 mm laser atherectomy catheter [...] it was extremely difficult. We used a [employer] 50 wire with extreme difficulty wire through [...] 319(H) 123 - 168 sec POC Performer [id number] [facility] POC Device Number [id number] [facility] Blood 02/23/2025 1:41 PM CDT 02/23/2025 1:41 PM CDT Ellie Sarkar MD LAB POCT ORDERABLES - DE VICE Final Result Performing Organization Address [facility]/ZIP Co de Phone Number [facility] [place] [address] * (ABNORMAL) POCT Activated clotting time, low range (02/23/2025 12:35 PM CDT) Pathologist [facility] ACT 351(H) 123 - 168 sec POC Performer [id number] [facility] POC Device Number [id number] [facility] Blood 02/23/2025 12:3 5 PM CDT 02/23/2025 12:35 PM CDT Ellie Sarkar MD LAB POCT ORDERABLES - DE VICE Final Result Performing Organization Address [facility]/ZIP Co de Phone Number [facility] [place] [address] * (ABNORMAL) aPTT (02/23/2025 6:36 AM CDT) [facility] aPTT 80(H) 28 - 38 sec Comment: Interpretive Data Heparin therapeutic range: 66.0 - 100.0 seconds. Range based on correlation with therapeutic heparin activity range of 0.3 - 0.7 Units/mL. Current interpretive data was last revised on 2023. Blood 02/23/2025 6:36 AM CDT 02/23/2025 7:00 AM CDT us Heaven Lerner MD LAB BLOOD ORDERABLES Final Result Performing Organization Address City/[facility]/ZIP Co de Phone [facility] [place] [address] * (ABNORMAL) eGFR (02/22/2025 11:07 PM CDT) [...] BLOOD ORDERABLES Final Result Performing Organization Address City/[facility]/ZIP Co de Phone Number [facility] [place] [address] * (ABNORMAL) aPTT (02/22/2025 11:07 PM CDT) [...] al Result Performing Organization Address [facility] Co de Phone Number [facility] [place] [address] * (ABNORMAL) Phosphorus (02/22/2025 11:07 PM CDT) [facility] Phosphorus, pl 7.2(H) 2.3 - 4.5 mg/dL Blood 02/22/2025 11:0 7 PM CDT 02/22/2025 11:50 PM CDT Jaimie Giordano MD LAB BLOOD ORDERABLES Final Result Performing Organization Address [facility] de Phone Number [facility] [place] [address] * Magnesium (02/22/2025 11:07 PM CDT) [facility] Magnesium 2.5 1.4 - 2.5 mg/dL Blood 02/22/2025 11:0 7 PM CDT 02/22/2025 11:50 PM CDT Jaimie Giordano MD LAB BLOOD ORDERABLES Final Result Performing Organization Address [facility] Co de Phone Number [facility] [place], [place] [id number] * (ABNORMAL) Basic metabolic panel (02/22/2025 11:07 PM CDT) Sodium 134(L) 135 - 145 mmol/L Potassium, pl 4.5 3.3 - 4.9 mmol/L [facility] Chloride 95(L) 97 - 110 mmol/L [facility] CO2 28 22 - 32 mmol/L [facility] Anion gap 11 2 - 15 mmol/L [facility] BUN 56(H) 6 - 25 mg/dL [facility] Creatinine 11.97(H) 0.60 - 1.10 mg/dL [facility] Glucose 104 70 - 199 mg/dL [facility] Comment: Interpretive Data Fasting glucose >/= 126 [...] 2022. Calcium 7.8(L) 8.5 - 10.3 mg/dL [facility] Blood 02/22/2025 11:0 7 PM CDT 02/22/2025 11:50 PM CDT Jaimie Giordano MD LAB BLOOD ORDERABLES Final Result [facility] Department [place] [address] * (ABNORMAL) aPTT (02/22/2025 2:25 PM CDT) Pathologist [facility] aPTT 54(H) 28 - 38 sec Comment: Interpretive Data Heparin therapeutic range: 66.0 - 100.0 seconds. Range based on correlation with therapeutic heparin activity range of 0.3 - 0.7 Units/mL. Current interpretive data was last revised on 2023. Blood 02/22/2025 2:25 PM CDT 02/22/2025 2:59 PM CDT Dasha Montez DO LAB BLOOD ORDERABLES Final Result [facility] Department [place] [address] * TRANSTHORACIC ECHO (TTE) COMPLETE W DOPPLER/CF W CONTRAST (02/22/2025 1:39 PM CDT) EF Mod BP 51 % CONS SCIMAGE Anatomical Region Laterality Modality Ultrasound 02/22/2025 12:3 8 PM CDT Narrative 02/22/2025 2:[address] [facility] [place] [address] Transthoracic Echocardiographic Report Patient Name: ESTUARDO COPELAND M : 1970 (54y 3m) Gender: F Study Date: 02/22/2025 12:38:48 PM Ht(Inch): 64 Wt(Lb): 123.9 BSA: 1.59 Form Setter/Driver: Marisol Arciniega RDCS [facility] Location: [id number] Order Provider: ELLIE SARKAR Heart Rate: 75 [...] flow reversal in the hepatic veins. Mild NH. Est. PASP 40-45 mm Hg. 7. Physiologic [...] Procedure Note Rc Koehler MD - 02/22/2025 [facility] Cardiac [place] [address] Transthoracic Echocardiographic Report Patient Name: ESTUARDO COPELAND M : 1970 (54y 3m) Gender: F Study Date: 02/22/2025 12:38:48 PM Ht(Inch): 64 Wt(Lb): 123.9 BSA: 1.59 Form Setter/Driver: Marisol Arciniega RDCS, [facility] Location: [id number] OrderProvider: ELLIE SARKAR Heart Rate: 75 BMI: [...] systolic flow reversal in the hepatic veins.Mild NH. Est. PASP 40-45 mm Hg. 7. Physiologic [...] [ 2.70 - 3.70 ] MV Decel [id number] msec [ 104.00 - 258.00 ] Ao [...] AM CDT) Ventricular Rate EKG/Min 80 BPM [facility] Atrial Rate 80 BPM [facility] NH-Interval (MSEC) 96 ms [facility] QRS-Interval (MSEC) 90 ms [facility] QT-Interval (MSEC) 412 ms [facility] QTc 475 ms [facility] P [place] 90 degrees [facility] R [place] -30 degrees [facility] T [place] 133 degrees [facility] Diagnosis Sinus rhythm with sinus arrhythmia with short NH Left axis deviation Left ventricular hypertrophy ( Romhilt-Pierce ) Cannot rule out Septal infarct (cited on 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-FEB-2025) ST & T wave abnormality, consider lateral ischemia Abnormal ECG When compared with ECG of 22-FEB-2025 01:51, (unconfirmed) Sinus rhythm has replaced Atrial fibrillation Confirmed by HARJINDER HANDY M.D ([id number]) on 03/05/2025 11:42:44 AM [facility] 02/22/2025 9:14 AM CDT 03/05/2025 11:42 AM CDT Jaimie Giordano MD ECG ORDERABLES Victoria l Result Performing Organization Address City/[facility] Co de Phone Number [facility] * (ABNORMAL) Troponin I high-sensitivity 4-hour (02/22/2025 6:24 AM CDT) Trop I hs 1,868(C) <=17 ng/L Comment: Previous critical value noted within 48 hours ago. Interpretive Data For further hscTnI resources including the diagnostic algorithm and an aid in interpretation, copy and paste this link: https://Issueab.testcatalog.org/show/hsTrop-1 Current Interpretive Data last revised 2020. Trop I hs pct delta -19(C) % [facility] Comment:Previous critical va lue noted within 48 hours ago. Trop I hs interp Significa nt(C) [facility] Comment:Previous critical va lue noted within 48 hours ago. Blood 02/22/2025 6:24 AM CDT 02/22/2025 6:48 AM CDT us Milton Rubio MD LAB BLOOD ORDERABLES Final Resul t Performing Organization Address [facility] Co de Phone Number [facility] Department [place] [address] * (ABNORMAL) Troponin I high-sensitivity 2-hour (02/22/2025 4:51 AM CDT) Trop I hs 2,146(C) <=17 ng/L Comment: Previous critical value noted within 48 hours ago. Interpretive Data For further hscTnI resources including the diagnostic algorithm and an aid in interpretation, copy and paste this link: https://[place]ee.testcatalog.org/show/hsTrop-1 Current Interpretive Data last revised 2020. Trop I hs pct delta -7 % [facility] Trop I hs interp Equivocal [facility] Blood 02/22/2025 4:51 AM CDT 02/22/2025 5:26 AM CDT us Milton Rubio MD LAB BLOOD ORDERABLES Final Resul t Performing Organization Address [facility] de Phone Number [facility] [place] [address] * (ABNORMAL) aPTT (02/22/2025 4:51 AM CDT) [...] Resul t Performing Organization Address [facility] de Phone Number [facility] [place] [address] * Infection Prevention Anthony auris PCR, surveillance Axilla/Groin (02/22/2025 2:05 AM CDT) Anthony auris DNA Not Detected Not Detected [facility] Comment: Interpretive Data Testing performed by [facility] [...] AM CDT 02/22/2025 3:14 AM CDT N[facility]ative [facility] - 02/22/2025 2:38 PM CDT Order placed by [facility] due to ring surveillance. us Instant Order Generic Provider LAB MICROBIOLOGY - GENERAL ORDERABLES Final Result Performing Organization Address [facility] de Phone Number [facility] [place] [address] [facility] * (ABNORMAL) Troponin I high-sensitivity series (baseline, 2hr, 4hr, 6hr) (02/22/2025 2:05 AM CDT) Pathologist [facility] Trop I hs 2,317(C) <=17 ng/L Comment: [...] Resul t Performing Organization Address [facility] de Phone Number [facility] [place] [address] * (ABNORMAL) eGFR (02/22/2025 2:05 AM CDT) Pathologist [facility] eGFR 3(L) >=60 mL/min/1. 73 m2 Comment: [...] Final Resul t Performing Organization Address City/[facility]/ZIP Co de Phone Number [facility] Department [place] [address] * Magnesium (02/22/2025 2:05 AM CDT) Pathologist [facility] Magnesium 2.5 1.4 - 2.5 mg/dL Blood 02/22/2025 2:05 AM CDT 02/22/2025 2:58 AM CDT Milton Rubio MD LAB BLOOD ORDERABLES Final Resul t Performing Organization Address [facility] de Phone Number [facility] Department [place] [address] * (ABNORMAL) Comprehensive metabolic panel (02/22/2025 2:05 AM CDT) Sodium 138 135 - 145 mmol/L Potassium, pl 4.3 3.3 - 4.9 mmol/L [facility] Chloride 95(L) 97 - 110 mmol/L [facility] CO2 26 22 - 32 mmol/L [facility] Anion gap 17(H) 2 - 15 mmol/L [facility] BUN 55(H) 6 - 25 mg/dL [facility] Creatinine 12.63(H) 0.60 - 1.10 mg/dL [facility] Glucose 99 70 - 199 mg/dL [facility] Comment: Interpretive Data Fasting glucose >/= 126 [...] 2022. Calcium 8.1(L) 8.5 - 10.3 mg/dL [facility] Bilirubin, total 0.2 0.1 - 1.2 mg/dL [facility] Protein, pl 6.0(L) 6.5 - 8.5 g/dL [facility] Albumin 2.6(L) 3.5 - 5.0 g/dL [facility] Alk phos 59 40 - 130 Units/L [facility] ALT 14 7 - 45 Units/L [facility] AST 20 10 - 45 Units/L [facility] Blood 02/22/2025 2:05 AM CDT 02/22/2025 2:58 AM CDT us Milton Rubio MD LAB BLOOD ORDERABLES Final Resul t [facility] Department [place] [address] * ECG 12 lead (02/22/2025 1:45 AM CDT) [facility] Ventricular Rate EKG/Min 137 BPM [facility] QRS-Interval (MSEC) 94 ms [facility] QT-Interval (MSEC) 316 ms [facility] QTc 477 ms [facility] R [place] -41 degrees [facility] T [place] 137 degrees [facility] Diagnosis Age and gender specific ECG analysis Sinus tachycardia Anteroseptal ST-elevation Poor R-wave progression in the precordial leads Left axis deviation Minimal voltage criteria for LVH, may be normal variant ( Oliverio product ) Anteroseptal infarct , possibly acute T wave abnormality, consider lateral ischemia Abnormal ECG No previous ECGs available Confirmed by HARJINDER HANDY M.D ([id number]) on 02/23/2025 3:10:53 PM [facility] 02/22/2025 1:45 AM CDT 02/23/2025 3:10 PM CDT us Jaimie Giordano MD ECG ORDERABLES Victoria l Result [facility] * Hepatitis C antibody Blood (01/28/2025 9:42 AM CDT) Hep C Ab Nonreactive Nonreactive Comment:Antibodies to HCV no t detected. Does NOT exclude the possibility of recent exposure to HCV. Current interpretive data was last revised on 22 Blood 01/28/2025 9:42 AM CDT 01/28/2025 10:56 AM CDT us Tamar Tang MD LAB MICROBIOLOGY - GENERAL ORD ERABLES Final Result [facility] Department [place] [address] from Last 3 Months or Most Recently Relevant to Health Maintenance Insurance [facility] CHOICE PLUS [facility] HMO/PPO Address: [facility] [address] [place] [address] MEDICARE [facility] CHOICE PLUS [facility] HMO/PPO Address: [address] [address] [place] [address] [facility] CHOICE [facility] HMO/PPO Address: [address] [address] [place] [address] MEDICARE MEDICARE [facility] CHOICE PLUS [facility] HMO/PPO Address: [address] [address] [place] [address] [employer] Advance Directives For more information, please contact: [phone] * Full Code (Latest Code Status on [...] 10:59 AM 12/28/2024 9:10 AM Care Teams Staff Mine Warfare Officer Relationship Specialty Start Date End Date Pal Downey DO PCP - General Internal Medicine 01/25/21 Quinton Rowan MD Referring Physician Cardiology 01/09/19 Tami Flores, TONO [address] [address] Registered Nurse Fl[place] 01/25/21 Cricket Escalante MD [address] [address] Referring Physician Nephrology 03/24/21 Gael Sprague MD PhD [address] [address] Fellow Endocrinology Diabetes & Metabolism 03/24/21 Brad Turner MD [address] [address] Consulting Physician Obstetrics and Gynecology 03/24/21 Margarita Montoya MD [address] [address] Consulting Physician Trauma Surgery 12/27/21 Luca Lott MD [address] [address] [address] Consulting Physician Cardiology 08/03/22 Pb Galloway MD [address] [address] Cardiothoracic Surgery 05/25/24 Felipe Gerber MD [address] [address] Consulting Physician Cardiology 05/25/24
--- OUTSIDE RECORDS SUMMARY | 2025-05-25 01:29 | XMS_ITS | Clinical Summary ---
Author Organization [facility] Address [address] [place] [address] Care Team Providers Care Sonoscope Operator Name Role Phone Quinton Rowan MD Unavailable [phone] Pal Downey DO Primary Care Provider [phone] Tami Flores RN Unavailable Cricket Escalante MD Unavailable [phone] Gael Sprague MD PhD Unavailable Brad Turner MD Unavailable [phone] Margarita Montoya MD Unavailable Luca Medrano MD Unavailable Pb Galloway MD Unavailable Felipe Gerber MD Unavailable [phone] Allergies Active Allergy Reactions Criticality Noted [...] no reactions Penicillins Anaphylaxis,Rash,Un known High 04/29/2015 Dtieatx-Jpy-Rjf Reductase Inhibitors Muscle pain Medium 02/20/2025 Trialed [...] chronic hypotension - suspect MR is main otr driver Chronic hypotension 05/05/2025 Assessment & Plan [...] CDT): AT/AF burden 0.8% per device transmission. [facility] admit 04/22-04/24 for afib with work up TSH wnl, hyperkalemic, troponins flat. Reports palpitations stopped last week. Planned direct admission for amiodarone loading, however, patient is no longer wanting to complete this (patient has appropriate concerns about termite treater side effects of Amio, particularly with her thyroid disease) - Home apixaban BID on hold until after LH - EP consulted -> recommended device interrogation, completed with known A.fib - Telemetry monitoring Assessment & Plan (05/06/2025 12:38 PM CDT): AT/AF burden 0.8% per device transmission. [facility] admit 04/22-04/24 for afib with work up TSH wnl, hyperkalemic, troponins flat. Reports palpitations stopped last week. Planned direct admission for amiodarone loading, however, patient is no longer wanting to complete this (patient has appropriate concerns about correction side effects of Amio, particularly with her thyroid disease) - Continue home apixaban BID - EP consulted -> recommended device interrogation (completed) and TTE - Telemetry monitoring Assessment & Plan (05/05/2025 5:31 PM CDT): AT/AF burden 0.8% per device transmission. [facility] admit 04/22-04/24 for afib with work [...] CDT): AT/AF burden 0.8% per device transmission. [facility] admit 04/22-04/24 for afib with work [...] PM CDT): s/p TAVR 06/2024. Follows with [facility]. Assessment & Plan (02/05/2025 3:15 PM CDT): [...] (02/01/2022): Added automatically from request for surgery [id number] Assessment & Plan (02/05/2025 3:15 PM CDT): Undergoing pre transplant evaluation. We will review with Dr. Medrano regarding possible candidacy for transplant list given recent interventions. Continued to DAPT Disorder of peritoneal dialysis catheter 022 Overview (12/22/2021): Added automatically from request for surgery [id number] Chronic kidney disease, stage V 10/31/2021 Overview (08/21/2023): Added automatically from request for surgery [id number] Sick sinus syndrome 11/02/2020 Assessment & Plan [...] Assessment & Plan (02/25/2019 11:43 AM CDT): [facility] with 95% LAD lesion, had some [...] along w/ significant troponin elevation -Plan for [facility] w/ possible PCI tomorrow pending results [...] to 4.35 - valve team consulted, 02/09 [facility] with severe 1 vessel disease of [...] (02/09/2019): Added automatically from request for surgery [id number] Assessment & Plan (05/17/2019 9:19 AM CDT): [...] (02/10/2019): Added automatically from request for surgery [id number] Assessment & Plan (05/07/2025 3:38 PM CDT): [...] - continue plavix, holding Apixaban for upcoming [facility] - hold metop succinate due to [...] chronic hypotension - suspect MR is main otr driver Assessment & Plan (05/05/2025 12:56 AM [...] with left shoulder pain similar to previous [place] -EKG changes per OSH --Slight elevation in [...] - continue plavix, holding Apixaban for upcoming [facility] - hold metop succinate due to hypotension, previously held OP by cardiology - Repeat TTE owith EF 55-60%, cannot determine diastolic function, no wall motion abnormalities, normal RV, no paravalvular AR with mean gradient 10, severe TR, RSVP 45 - BNP elevated to 47,450 and troponin peak at 192 - EKG without ST segment changes - Dr. Medrano plans on completing [facility] next week and she will discharge home today with outpatient [facility] Assessment & Plan (05/06/2025 12:38 PM [...] chronic hypotension - suspect MR is main otr driver Assessment & Plan (05/05/2025 12:56 AM [...] currently stable Daily BMPs, while inpatient Home radio message router is Dr. Escalante Continue lasix 40 mg [...] kidney disease, baseline Cr 2.4-2.6. F/b OSH radio message router. Apparently discussions for potential need for renal txp being discussed. - Cr at baseline on adm - avoid nephrotoxins, renally dose meds - continue calcitriol 0.5 mcg/day - Cr 2.75, received pre-cath hydration, stable 2.7 Headache 05/02/2016 Moderate COPD (chronic obstr uctive pulmonary disease) ([facility]) 11/02/2015 Assessment & Plan (05/07/2025 3:38 [...] Alexis TAVR 05/21 Followed by [facility], Dr. Medrano. CT TAVR on [...] not a candidate for intervention (declined by [facility], [facility]) Assessment & Plan (05/17/2019 9:28 [...] AV. Referred to valve team by primary lmsw Dr. Rowan. Seen 02/02 by valve team [...] around 2.4 Dr Escalante is her home radio message router Assessment & Plan (02/23/2019 12:20 PM CDT): Pt above POW by 2 kg. Lasix on hold due to elevation in Creatinine Baseline creat is around 2.4 Dr Escalante is her home radio message router Agitation requiring sedation protocol 02/14/2019 02/23/2019 Acute [...] she had reactions to (?). Per OSH radio message router's note in Care Everywhere, pt tried metoprolol [...] Care Team Description 05/19/2025 SHOP/CHAP Subsequent Outreach [facility] OP CASE MANAGEMENT [address] [place] [address] Claire Rosales LCSW 05/13/2025 SHOP/CHAP Subsequent Outreach [facility] OP CASE MANAGEMENT [address] [place] [address] Claire Rosales LCSW 05/12/2025 Telephone [facility] Cardiology [address] [facility] Advanced Medicine 8th [place] [address] [place] [address] Luca Medrano MD 05/12/2025 Telephone [facility] Cardiology [address] [facility] Medical Office Building [address] [place] [address] Luca Medrano MD [facility] 05/12/2025 Telephone [facility] [place] [address] [place] [address] Reagan Vences MD 05/11/2025 12:55 PM CDT - 05/11/2025 2:25 PM CDT Surgery [facility] Vascular [place] [address] [place] [address] Luca Medrano MD LEFT HEART CATHETERIZATION WITH CORONARY ANGIOGRAPHY AND WITH OR WITHOUT LEFT VENTRICULOGRAM [id number] 05/11/2025 11:13 AM CDT - 05/11/2025 7:34 PM CDT Hospital [facility] Vascular [place] [address] [place] [address] Luca Medrano MD Chronic heart failure with preserved ejection fraction (HCC) [I50.32] (Primary Dx); Coronary artery disease involving iroquois coronary artery of iroquois heart without angina pectoris Discharge Disposition: Discharge to home or self care 05/10/2025 SHOP/CHAP Initial Outreach [facility] OP CASE MANAGEMENT [address] [place] [address] Claire Rosales LCSW 05/10/2025 SHOP/CHAP Initial Eligibility Review [facility] OP CASE MANAGEMENT [address] [place] [address] Claire Rosales LCSW 05/07/2025 Telephone [facility] Cardiology [facility] Advanced Medicine 8th [place] [address] [place] [address] Luca Medrano MD 05/04/2025 7:27 PM CDT - 05/07/2025 5:52 PM CDT Hospital Encounter [facility] [address] [place] [address] Kalen Villegas MD PhD [facility] MD Tirso Mejia, Ashley Farnsworth MD Discharge Disposition: Discharge to home or self care 05/04/2025 Telephone [facility] Bed Planning [address] [place] [address] Wiley Pulliam, wing scorer Notification 04/29/2025 Orders Only [facility] Cardiology [facility] Building [address] [place] [address] Lane Ramos MD PhD S/P placement of cardiac pacemaker; Sick sinus syndrome (HCC) 04/28/2025 Telephone [facility] Cardiology [facility] Advanced Medicine 8th [place] [address] [place] [address] Lane Ramos MD PhD 04/27/[address] [facility] Cardiology [address] [place] [address] Eduin Springer MD 04/26/2025 Telephone [facility] Cardiology [address] [place] [address] Advanced Medicine 8th [place] [address] [place] [address] Luca Medrano MD 04/23/2025 Orders Only [address] Building [address] [place] [address] Lane Ramos MD PhD 04/20/2025 2:00 PM CDT Ancillary Procedure [facility] [address] [place] [address] [address] [place] [address] Palpitations 04/20/2025 10:00 AM CDT - 04/20/2025 11:59 PM CDT Hospital Encounter [address] [address] ESRD (end stage renal disease) (HCC) Discharge Disposition: Discharge to home or self care 04/20/2025 Orders Only [facility] Cardiology [address] Medical Office Building [address] [place] [address] Luca Medrano MD Palpitations (Primary Dx) 04/07/2025 11:30 AM CDT Office Visit [facility] Cardiology [address] [facility] Medical Office Building 3 [address] [place] [address] Luca Medrano MD Nonrheumatic aortic valve stenosis (Primary Dx); Coronary artery disease involving iroquois coronary artery of iroquois heart without angina pectoris 04/07/2025 Telephone [facility] and [facility] Transplant Kidney [address] [facility] [address] Mailstop [phone] [place] [address] Tiarra Mcdermott 04/07/2025 Telephone [facility] and [facility] Transplant Kidney [address] [facility] [address] Mailstop [phone] [place] [address] Tami Flores, RN 03/27/2025 Orders Only [facility] Cardiology [address] [facility] 8th [place] [address] [place] [address] Claire Mcnally, RN 03/25/2025 10:00 AM CDT - 03/25/2025 11:59 PM CDT Hospital Encounter [facility] [address] [place] [address] ESRD (end stage renal disease) ([facility]) Discharge Disposition: Discharge to home or self care 03/02/2025 SHOP/CHAP Initial Outreach [facility] OP CASE MANAGEMENT [address] [place] [address] Claire Rosales LCSW 03/01/2025 10:00 AM CDT - 03/01/2025 11:59 PM CDT Hospital Encounter [address] [address] ESRD (end stage renal disease) (HCC) Discharge Disposition: Discharge to home or self care 02/26/2025 SHOP/CHAP Initial Outreach [facility] OP CASE MANAGEMENT [address] [place] [address] Claire Rosales LCSW 02/25/2025 SHOP/CHAP Initial Outreach [facility] OP CASE MANAGEMENT [address] [place] [address] Claire Rosales LCSW 02/25/2025 SHOP/CHAP Initial Eligibility Review [facility] OP CASE MANAGEMENT [address] [place] [address] Claire Rosales LCSW 02/23/2025 11:33 AM CDT - 02/23/2025 12:53 PM CDT Surgery [facility] [address] [place] [address] Luca Medrano MD LEFT HEART CATHETERIZATION WITH CORONARY ANGIOGRAPHY AND WITH OR WITHOUT LEFT VENTRICULOGRAM [id number] 02/20/2025 8:07 PM CDT - 02/24/2025 3:54 PM CDT Hospital Encounter [address] [address] Elvin Giordano, MD Dany Nails, Ellie Hahn MD Acute coronary syndrome (HCC) (Primary Dx); Chest pain [R07.9]; Coronary artery disease involving iroquois coronary artery of iroquois heart without angina pectoris [I25.10] Discharge Disposition: [...] Procedure: PCI KARINA MAJOR CORONARY C9600 - [id number]; Surgeon: Luca Medrano MD; Location: [facility] CARDIAC SHIRT CLEANER; Service: Cardiovascular; Laterality: N/A; Medical devices from this surgery are in the Medical Devices section. CARDIAC CATHETERIZATION 02/23/2025 N/A Procedure: LEFT HEART CATHETERIZATION WITH CORONARY ANGIOGRAPHY AND WITH OR WITHOUT LEFT VENTRICULOGRAM [id number]; Surgeon: Luca Medrano MD; Location: [facility] CARDIAC SHIRT CLEANER; Service: Cardiovascular; Laterality: N/A; Medical devices from this surgery are in the Medical Devices section. CARDIAC CATHETERIZATION 05/11/2025 N/A Procedure: LEFT HEART CATHETERIZATION WITH CORONARY ANGIOGRAPHY AND WITH OR WITHOUT LEFT VENTRICULOGRAM [id number]; Surgeon: Luca Medrano MD; Location: [facility] CARDIAC SHIRT CLEANER; Service: Cardiovascular; Laterality: N/A; Medical devices from this surgery are in the Medical Devices section. Medical History Medical History Date Comments Hypertension Essential Thyroid mass s/p resection Coronary artery disease invo lving iroquois heart 02/07/2019 Added automatically from req uest for surgery [id number] (LAD, LCA) Volume overload 02/14/2019 Leukocytosis 02/21/2019 [...] ESRD on peritoneal dialysis (HCC) Heart murmur [place] (myocardial infarction) (HCC) CHF (congestive heart failure) ([facility]) Nausea 05/10/2019 Aortic valve insufficiency, acquired 05/19/2024 [...] = 0.6 oz pur e alcohol) occasional [employer] Utilities Answer Date Recorded In the past 12 months has th e [employer], gas, oil, or water [employer] threatened to shut off services in your home? Patient declined 05/10/2025 Social Connection and Isolation Panel [NHANES] A nswer Date Recorded In a typical week, how many times do you talk on the phone with family, friends, or neighbors? Patient declined 05/10/2025 How often do you get togethe r with friends or relatives? Patient declined 05/10/2025 How often do you attend hindu or zoroastrian serv ices? Patient declined 05/10/2025 Do you belong to any clubs o r organizations such as hindu groups, unions, fraternal or athletic groups, or [...] any time in the past 12 m [facility], were you homeless or living in a chcf (including now)? Patient declined 05/10/2025 Personal Safety Answer Date Recorded Have you ever been in or are you currently in a harmful physical or emotional relationship or is someone making you feel afraid or unsafe? Denies 05/11/2025 Comments No Sex and Gender Information Value Date Recorded Sex Assigned at Not on file Legal Sex Female 4:06 AM MANAGEMENT LIAISON Gender Identity Female 01/16/2024 11:18 AM CDT [...] TRANSPLANT KIDNEY ESRD (end stage renal disease) ([facility]) Health Maintenance Due Date Last Done Comments [...] 03/06/2023, 05/04/2021 Medical Devices Implanted Type Area [facility] Carrier Device Identifier Shelf Expiration Date Model / Serial / Lot Angio-Seal Evolution 6fr Vascular Closure [id number] - [id number] - [id number] Implanted:Qty: 1 on 03/09/2022 by Luca Medrano MD at [facility] Collagen Right: Femoral Terumo Medical Pam 09/19/2022 [id number] / [id number] / [id number] Ter[employer]o [employer] Pam Angio-Seal Vip 6fr Closere Device [id number] - [id number] - [id number] Implanted:Qty: 1 on 07/24/2022 by Luca Medrano MD at [facility] Collagen [employer] Pam 03/20/2023 [id number] / [id number] / [id number] Terumo [employer] Pam Angio-Seal Vip 6fr Closere Device [id number] - [id number] - [id number] Implanted:Qty: 1 on 05/21/2024 at [facility] Collagen Right: Common Femoral Artery [employer] Pam 01/09/2025 586419 / [id number] / [id number] Terumo [employer] Pam Angio-Seal Vip Bondek-Plus 8fr .038in 70cm Hemostatic Latex Free [id number] - [id number] - [id number] Implanted:Qty: 1 on 05/21/2024 by Felipe Gerber MD at [facility] Collagen Right: Common Femoral Artery [employer] Pam 01/06/2025 387213 / [id number] / [id number] Ter[employer]o [employer] Pam Angio-Seal Vip 6fr Closere Device 865866 - [id number] - [id number] Implanted:Qty: 1 on 02/23/2025 by Luca Medrano MD at [facility] Collagen Brainceuticals Pam 06/15/2025 900669 / [id number] / [id number] Medtronic Cardiac Rhythm Mgmt 5076-52 Capsurefix Novus 6.2fr 2mm 52cm Bipolar Screw In Implantable Latex Free - [id number] - [id number] Implanted:Qty: 1 on 05/15/[address] Ramos MD PhD at [facility] Lead Medtronic Inc 03/11/2021 5076-52 / [id number] / Medtronic Cardiac Rhythm Mgmt 5076-45 Capsurefix Novus 6.2fr 2mm 45cm Bipolar Screw In Implantable - [id number] - [id number] Implanted:Qty: 1 on 05/15/[address] Ramos MD PhD at [facility] Lead Medtronic Inc 03/30/2021 5076-45 / [id number] / Tarisa [id number] Linear 7.5fr 6in Insertion Kit Machining Associate Introducer Sheath - [id number] Implanted:Qty: 1 on 02/10/2019 by Luca Medrano MD at [facility] Other - see comments Tarisa 0684-00 -0480-0 1 / / Description:IABP Medtronic Inc [id number] Martin Curl Cath Beta-Cap Holden 15fr 57cm 2 Cuff Clamp Adapter - S0 - [id number] Implanted:Qty: 1 on 11/21/2021 by Carlos Kamara MD at [facility] Other - see comments N/A: Abdomen Medtronic Inc 11/30/2022 8811-31 3015 / 0 / [id number] Medtronic Cardiac Rhythm Mgmt W1dr01 Tereza Wirelessly Pacemaker Cardiac - [id number] - [id number] Implanted:Qty: 1 on 05/15/[address] Ramos MD PhD at [facility] Pacemaker Medtronic Inc [id number] 09/17/2020 W1DR01 / [id number] / Jamil Lifesciences Valve Aortic Trnscath Brown 3 Ultra Resilia 20mm 6414hyb11b - [id number] - [id number] Implanted:Qty: 1 on 05/21/2024 by Felipe Gerber MD at [facility] Prosthetic Valve N/A: Aortic Valve Jamil Lifesciences 02/27/2027 [id number] 20A / [id number] / Medtronic Inc Resolute [place] 4mm 2.1-2.7fr 12mm 140cm Rapid Exchange Radiopaque [id number] - [id number] - [id number] Implanted:Qty: 1 on 03/09/2022 by Luca Medrano MD at [facility] Stent Left: Coronary Medtronic Inc 12/06/2022 RONYX40 012UX / [id number] / [id number] Description:LAD Biotronik Inc Stent Coronary De Rx Cocr Ors Msn 4.0x15mm 642714 - [id number] - [id number] Implanted:Qty: 1 on 07/24/2022 by Luca Medrano MD at [facility] Stent Biotronik Inc 09/05/2023 405315 / [id number] / [id number] Medtronic Card Vasc Surgery 4.0 X 15mm Clive Paramount Rx Coronary Stent [id number] - [id number] - [id number] Implanted:Qty: 1 on 11/19/2024 by Lcua Medrano MD at [facility] Stent N/A: Saphenous Vein Graft Medtronic Card Vasc Surgery 05/05/2027 ONYXNG4 [id number] / [id number] / [id number] Medtronic Card Vasc Surgery 2.50 X 12mm Clive Paramount Rx Coronary Stent [id number] - [id number] - [id number] Implanted:Qty: 1 on 12/25/2024 by Luca Medrano MD at [facility] Stent Medtronic Card Vasc Surgery 06/03/2027 ONYXNG2 [id number] / [id number] / [id number] Gipsy Scientific Pam Synergy Xd Monorail 3mm 20mm 144cm Delivery System 1 Access Port [id number] - [id number] - [id number] Implanted:Qty: 1 on 02/23/2025 by Luca Medrano MD at [facility] Stent Gipsy Scientific Pam 06/08/2026 [id number] / [id number] / [id number] Painter Vascular System Closure Repair Femoral Artery Suture Mediated Perclose Prostyle 68076-37 - [id number] - [id number] Implanted:Qty: 1 on 05/21/2024 by Felipe Gerber MD at [facility] Vascular Closure Device Left: Common Femoral Artery Painter Vascular 02/17/2026 00814-4 3 / [id number] / [id number] Terumo Medical Pam Angio-Seal Vip 6fr Closere Device 416001 - [id number] - [id number] Implanted:Qty: 1 on 11/19/2024 by Luca Medrano MD at [facility] Vascular Closure Device N/A: Saphenous Vein Graft Ter[employer]o Medical Pam 04/29/2025 526489 / [id number] / [id number] Terumo Medical Pam Angio-Seal Vip 6fr Closere Device 127944 - [id number] - [id number] Implanted:Qty: 1 on 12/25/2024 by Sanket Quiroz MD at [facility] Vascular Closure Device Right: Common Femoral Artery [employer] Pam 06/30/2025 134189 / [id number] / [id number] Description:RFA Ter[employer]o Medical Pam Angio-Seal Vip Bondek-Plus 8fr .038in 70cm Hemostatic Latex Free 011824 - [id number] - [id number] Implanted:Qty: 1 on 12/25/2024 by Sanket Quiroz MD at [facility] Vascular Closure Device Right: Femoral Vein [employer]o Medical Pam 07/21/2025 022967 / [id number] / [id number] Description:RFV Ter[employer]o Medical Pam Angio-Seal Vip 6fr Closere Device 247432 - [id number] - [id number] Implanted:Qty: 1 on 05/11/2025 by Rio Jacobs MD at [facility] Vascular Closure Device Right: Common Femoral Artery [employer]o Medical Pam 12/31/2025 083931 / [id number] / [id number] [employer] Pam [id number] Supple Ronna-Guard [place] Processing 4x4cm Patch Cardiovascular - [id number] - [id number] Implanted:Qty: 1 on 02/11/2019 by Christopher Holman MD at [facility] N/A: Chest Sotelo Pylba 06/03/2023 [id number] / [id number] 040010 / [id number] Jamil Lifesciences [id number] Certitude Brown 3 Atrion 18fr Transcatheter Introducer Crimper - [id number] - [id number] Implanted:Qty: 1 on 02/11/2019 by Christopher Holman MD at [facility] N/A: Heart Jamil Lifesciences [id number] [id number] / [id number] / Medtronic Inc [id number] Martin Curl Cath Beta-Cap Holden 15fr 57cm 2 Cuff Clamp Adapter - [id number] Implanted:Qty: 1 on 12/27/2021 by Margarita Montoya MD at [facility] N/A: Abdomen Medtronic Inc 10/14/2023 8811-31 [...] 4:14 PM CDT Coronary artery disease involving iroquois coronary artery of iroquois heart without angina pectoris POCT ACTIVATED CLOTTING [...] - REMOTE Routine 04/23/2025 12:51 AM CDT EXTENDED/RESIDENTIAL HOLTER PATCH (>48 HOURS UP TO 7 [...] LAB BLOOD ORDERABLES Final R esult [facility] Department [place] [address] * Differential, auto (05/11/2025 6:30 PM CDT) Neutrophil abs 4.30 1.50 - 6.50 K/cumm Comment:Collection date/time has been modified to: 18:30:00. Previous collection date/time: 17:32:00. Imm gran abs 0.02 0.00 - 0.10 K/cumm [facility] Comment:Collection date/time has been modified to: 18:30:00. Previous collection date/time: 17:32:00. Lymphocyte abs 0.83 0.80 - 3.30 K/cumm [facility] Comment:Collection date/time has been modified to: 18:30:00. Previous collection date/time: 17:32:00. Monocyte abs 0.28 0.20 - 0.80 K/cumm [facility] Comment:Collection date/time has been modified to: 18:30:00. Previous collection date/time: 17:32:00. Eosinophil abs 0.19 0.00 - 0.50 K/cumm [facility] Comment:Collection date/time has been modified to: 18:30:00. Previous collection date/time: 17:32:00. Basophil abs 0.02 0.00 - 0.10 K/cumm [facility] Comment:Collection date/time has been modified to: 18:30:00. Previous collection date/time: 17:32:00. Neutrophil pct 76.1 % [facility] Comment: Collection date/time has been modified to: 18:30:00. Previous collection date/time: 17:32:00. Interpretive Data Percent cell count reference ranges are not reported, since discordance with absolute values may lead to misinterpretation of CBC data. Current Interpretive Data was last revised on 2018. Imm gran pct 0.4 % [facility] Comment: Collection date/time has been modified to: 18:30:00. Previous collection date/time: 17:32:00. Interpretive Data Percent cell count reference ranges are not reported, since discordance with absolute values may lead to misinterpretation of CBC data. Current Interpretive Data was last revised on 2018. Lymphocyte pct 14.7 % [facility] Comment: Collection date/time has been modified to: 18:30:00. Previous collection date/time: 17:32:00. Interpretive Data Percent cell count reference ranges are not reported, since discordance with absolute values may lead to misinterpretation of CBC data. Current Interpretive Data was last revised on 2018. Monocyte pct 5.0 % [facility] Comment: Collection date/time has been modified to: 18:30:00. Previous collection date/time: 17:32:00. Interpretive Data Percent cell count reference ranges are not reported, since discordance with absolute values may lead to misinterpretation of CBC data. Current Interpretive Data was last revised on 2018. Eosinophil pct 3.4 % [facility] Comment: Collection date/time has been modified to: 18:30:00. Previous collection date/time: 17:32:00. Interpretive Data Percent cell count reference ranges are not reported, since discordance with absolute values may lead to misinterpretation of CBC data. Current Interpretive Data was last revised on 2018. Basophil pct 0.4 % [facility] Comment: Collection date/time has been modified to: 18:30:00. Previous collection date/time: 17:32:00. Interpretive Data Percent cell count reference ranges are not reported, since discordance with absolute values may lead to misinterpretation of CBC data. Current Interpretive Data was last revised on 2018. Blood 05/11/2025 6:30 PM CDT 05/11/2025 6:39 PM CDT us Luca Medrano MD LAB BLOOD ORDERABLES Edited Result - Final [facility] [place] [address] * (ABNORMAL) CBC with auto differential (05/11/2025 6:30 PM CDT) WBC 5.64 3.80 - 9.90 K/cumm Comment:Collection date/time has been modified to: 18:30:00. Previous collection date/time: 17:32:00. Hgb 11.5(L) 11.9 - 15.5 g/dL [facility] Comment:Collection date/time has been modified to: 18:30:00. Previous collection date/time: 17:32:00. Hct 36.8 35.6 - 45.5 % [facility] Comment:Collection date/time has been modified to: 18:30:00. Previous collection date/time: 17:32:00. Plt 158 150 - 400 K/cumm [facility] Comment:Collection date/time has been modified to: 18:30:00. Previous collection date/time: 17:32:00. MPV 10.7 9.1 - 12.3 fL [facility] Comment:Collection date/time has been modified to: 18:30:00. Previous collection date/time: 17:32:00. RBC 3.94 3.90 - 5.20 M/cumm [facility] Comment:Collection date/time has been modified to: 18:30:00. Previous collection date/time: 17:32:00. MCV 93.4 81.3 - 96.4 fL [facility] Comment:Collection date/time has been modified to: 18:30:00. Previous collection date/time: 17:32:00. MCH 29.2 27.1 - 33.3 pg [facility] Comment:Collection date/time has been modified to: 18:30:00. Previous collection date/time: 17:32:00. MCHC 31.3(L) 32.3 - 35.7 g/dL [facility] Comment:Collection date/time has been modified to: 18:30:00. Previous collection date/time: 17:32:00. RDW CV 16.3(H) 11.1 - 14.9 % [facility] Comment:Collection date/time has been modified to: 18:30:00. Previous collection date/time: 17:32:00. RDW SD 55.2(H) 35.7 - 48.1 fL [facility] Comment:Collection date/time has been modified to: 18:30:00. Previous collection date/time: 17:32:00. NRBC abs 0.00 0.00 - 0.01 K/cumm [facility] Comment:Collection date/time has been modified to: 18:30:00. Previous collection date/time: 17:32:00. Blood 05/11/2025 6:30 PM CDT 05/11/2025 6:39 PM CDT Luca Medrano MD LAB BLOOD ORDERABLES Edited Result - Final [facility] [place] [address] * (ABNORMAL) Basic metabolic panel (05/11/2025 6:30 PM CDT) Sodium 134(L) 135 - 145 mmol/L Potassium, pl 5.4(H) 3.3 - 4.9 mmol/L [facility] Chloride 96(L) 97 - 110 mmol/L [facility] CO2 26 22 - 32 mmol/L [facility] Anion gap 12 2 - 15 mmol/L [facility] BUN 57(H) 6 - 25 mg/dL [facility] Creatinine 13.94(H) 0.60 - 1.10 mg/dL [facility] Glucose 114 70 - 199 mg/dL [facility] Comment: Interpretive Data Fasting glucose >/= 126 [...] 2022. Calcium 8.3(L) 8.5 - 10.3 mg/dL [facility] Blood 05/11/2025 6:30 PM CDT 05/11/2025 6:39 PM CDT us Luca Medrano MD LAB BLOOD ORDERABLES Final R esult [facility] [place] [address] * LEFT HEART CATHETERIZATION WITH CORONARY ANGIOGRAPHY [...] personally dictated or confirmed the above report. Lcua Medrano MD Narrative 05/11/2025 4:43 PM CDT Table formatting from the original result was not included. Images from the original result were not included. Procedure: CORONARY ANGIOGRAM / PERCUTANEOUS CORONARY INTERVENTION Patient: Estuardo Copeland is a 54 y.o. female : 1970 MR number: [id number] Date of Service: 05/11/2025 Clother In: Luca Medrano MD Fellow: Rio Jacobs MD [...] obtained. The patient was brought to the shipyard laborer and placed on the table Bilateral [...] coronary artery angiogram performed using a 6 Maltese JL 3 guide Percutaneous coronary intervention performed on the Proximal vein graft to the LAD. This was an ACC/AHA Type C. Initial Lesion Length 12mm and final lesion Length 12mm. Initial KAROLINA Flow 3 Final KAROLINA Flow 3. Equipment used: 6 3D RC [place] IVUS Catheter, Suit Maker 50 wire, 0.9 mm laser atherectomy catheter [...] got the guide to sit and a Suit Maker 50 wire down into the LAD. Next [...] 284(H) 123 - 168 sec POC Performer [id number] [facility] Device Number [id number] [facility] Blood 05/11/2025 4:12 PM CDT 05/11/2025 4:12 PM CDT Luca Medrano MD LAB POCT ORDERABLES - DEVICE Final Result Performing Organization Address [facility] de Phone Number [facility] [employer] [place] [address] * (ABNORMAL) POCT Activated clotting time, low range (05/11/2025 3:50 PM CDT) ACT 290(H) 123 - 168 sec POC Performer [id number] [facility] POC Device Number [id number] [facility] Blood 05/11/2025 3:50 PM CDT 05/11/2025 3:50 PM CDT Luca Medrano MD LAB POCT ORDERABLES - DEVICE Final Result Performing Organization Address [facility] de Phone Number [facility] [employer] [address] * (ABNORMAL) Potassium, whole blood (05/11/2025 12:00 PM CDT) [facility] Potassium, bld 5.0(H) 3.3 - 4.9 mmol/L Blood 05/11/2025 12:0 0 PM CDT 05/11/2025 12:12 PM CDT Kasi Garcia SAMPLING THEORY TEACHER LAB BLOOD ORDERABLES F inal Result Performing Organization Address [facility] de Phone Number [facility] [place] [employer] [place] [address] * (ABNORMAL) POC Blood Gas and Chemistries, Arterial - (05/11/2025 11:46 AM CDT) [facility] K POC 5.5(H) 3.3 - 4.9 mmol/L Comment: Interpretive Data Not all point of care methods assess for hemolysis. Confirm with instrument and retest K+ if not consistent with clinical signs and symptoms. Current Interpretive Data was last revised on 2024. Blood 05/11/2025 11:4 6 AM CDT 05/11/2025 11:46 AM CDT us Luca Medrano MD LAB POCT ORDERABLES - DEVICE Final Result [facility] [place] [address] * TRANSTHORACIC ECHO (TTE) COMPLETE W DOPPLER/CF W CONTRAST (05/07/2025 10:16 AM CDT) Estimated EF 55-60 % CONS SCIMAGE Anatomical Region Laterality Modality Ultrasound 05/06/2025 3:39 PM CDT Narrative 05/06/2025 6:28 PM CDT [facility] [place] [address] Transthoracic Echocardiographic Report Patient Name: ESTUARDO COPELAND M : 1970 (54y 5m) Gender: F Study Date: 05/06/2025 03:39:15 PM Ht(Inch): 64 Wt(Lb): 132.94 BSA: 1.65 Odd Piece Checker: Brad Tripathi RDCS Location: [id number] Order Provider: ASHLEY CHAHAL Heart Rate: 65 [...] Procedure Note Job Gordon MD - 05/06/2025 [facility] [place] [address] Transthoracic Echocardiographic Report Patient Name: ESTUARDO COPELAND M : 1970 (54y 5m) Gender: F Study Date: 05/06/2025 03:39:15 PM Ht(Inch): 64 Wt(Lb): 132.94 BSA: 1.65 Odd Piece Checker: Brad Tripathi RDCS Location: [id number] Order Provider: ASHLEY CHAHAL Heart Rate: 65 [...] No change compared to prior study on: 05/05/25. RECOMMENDATIONS: Consider CAYLA if clinically indicated. ATTESTATION: [...] cm/m2 [ 1.00 - 2.00 ] MV ABY661.27 msec [ 20.00 - 100.00 ] Asc Ao Diam 2D 1.63 cm MVA PHT2.11 cm2 Asc Ao Index 0.99 cm/m2 MV Decel Zjzz375.23 msec [ 104.00 - 258.00 ] Med [...] LAB BLOOD ORDERAB LES Final Result [facility] [place] [address] * (ABNORMAL) Vitamin D 25 hydroxy (05/07/2025 6:17 AM CDT) [facility] Vitamin D 25-OH 22(L) 30 - 80 ng/mL Blood 05/07/2025 6:17 AM CDT 05/07/2025 6:55 AM CDT us Ashley Chahal MD LAB BLOOD ORDERAB LES Final Result Performing Organization Address City/[facility] Co de Phone Number [facility] [place] [address] * (ABNORMAL) CBC without differential (05/07/2025 6:17 AM CDT) [facility] WBC 6.90 3.80 - 9.90 K/cumm Hgb 12.4 11.9 - 15.5 g/dL [facility] Hct 39.1 35.6 - 45.5 % [facility] Plt 157 150 - 400 K/cumm [facility] MPV 10.4 9.1 - 12.3 fL [facility] RBC 4.19 3.90 - 5.20 M/cumm [facility] MCV 93.3 81.3 - 96.4 fL [facility] MCH 29.6 27.1 - 33.3 pg [facility] MCHC 31.7(L) 32.3 - 35.7 g/dL [facility] RDW CV 16.6(H) 11.1 - 14.9 % [facility] RDW SD 56.4(H) 35.7 - 48.1 fL [facility] NRBC abs 0.00 0.00 - 0.01 K/cumm [facility] Blood 05/07/2025 6:17 AM CDT 05/07/2025 6:55 AM CDT us Ashley Chahal MD LAB BLOOD ORDERAB LES Final Result [facility] [place] [address] * (ABNORMAL) PTH (05/07/2025 6:17 AM CDT) Pathologist [facility] [place] PTH 9(L) 15 - 65 pg/mL Blood 05/07/2025 6:17 AM CDT 05/07/2025 6:55 AM CDT Ashley Chahal MD LAB BLOOD ORDERAB LES Final Result Performing Organization Address City/[facility] Co de Phone Number [facility] Department [place] [address] * (ABNORMAL) Renal function panel (05/07/2025 6:17 AM CDT) [facility] Sodium 136 135 - 145 mmol/L Potassium, pl 5.1(H) 3.3 - 4.9 mmol/L [facility] Chloride 96(L) 97 - 110 mmol/L [facility] CO2 27 22 - 32 mmol/L [facility] Anion gap 13 2 - 15 mmol/L [facility] BUN 52(H) 6 - 25 mg/dL [facility] Creatinine 14.17(H) 0.60 - 1.10 mg/dL [facility] Glucose 86 70 - 199 mg/dL [facility] Comment: Interpretive Data Fasting glucose >/= 126 [...] 2022. Calcium 8.8 8.5 - 10.3 mg/dL [facility] Phosphorus, pl 9.9(H) 2.3 - 4.5 mg/dL [facility] Albumin 2.8(L) 3.5 - 5.0 g/dL [facility] Blood 05/07/2025 6:17 AM CDT 05/07/2025 6:55 AM CDT Ashley Chahal MD LAB BLOOD ORDERAB LES Final Result Performing Organization Address [facility] de Phone Number [facility] [employer] [place] [address] * Cortisol (05/06/2025 8:36 AM CDT) Pathologist [facility] Cortisol 11.7 4.8 - 19.5 mcg/dL Comment: Interpretive Data: Morning hours 6-10 a.m. 4.8 - 19.5 mcg/dL Afternoon hours 4-8 p.m. 2.5 - 11.9 mcg/dL This analyte undergoes marked diurnal variation. Current interpretive data was last revised 24. Blood 05/06/2025 8:36 AM CDT 05/06/2025 9:27 AM CDT us Ashley Chahal MD LAB BLOOD ORDERAB LES Final Result Performing Organization Address [facility] de Phone Number [facility] [place] [employer] [place] [address] * (ABNORMAL) eGFR (05/06/2025 3:41 AM CDT) Pathologist [facility] [place] eGFR 3(L) >=60 mL/min/1. 73 m2 Comment: [...] LES Final Result Performing Organization Address City/[facility]/ZIP Co de Phone Number [facility] [place] [address] * (ABNORMAL) Magnesium (05/06/2025 3:41 AM CDT) Pathologist [facility] [place] Magnesium 2.7(H) 1.4 - 2.5 mg/dL Blood 05/06/2025 3:41 AM CDT 05/06/2025 4:14 AM CDT us Ashley Chahal MD LAB BLOOD ORDERAB LES Final Result [facility] [place] [address] * (ABNORMAL) Renal function panel (05/06/2025 3:41 AM CDT) Sodium 136 135 - 145 mmol/L Potassium, pl 4.9 3.3 - 4.9 mmol/L [facility] Chloride 97 97 - 110 mmol/L [facility] CO2 25 22 - 32 mmol/L [facility] Anion gap 14 2 - 15 mmol/L [facility] BUN 56(H) 6 - 25 mg/dL [facility] Creatinine 14.58(H) 0.60 - 1.10 mg/dL [facility] Glucose 107 70 - 199 mg/dL [facility] Comment: Interpretive Data Fasting glucose >/= 126 [...] 2022. Calcium 9.0 8.5 - 10.3 mg/dL [facility] Phosphorus, pl 10.0(H) 2.3 - 4.5 mg/dL [facility] Albumin 2.7(L) 3.5 - 5.0 g/dL [facility] Blood 05/06/2025 3:41 AM CDT 05/06/2025 4:14 AM CDT us Ashley Chahal MD LAB BLOOD ORDERAB LES Final Result [facility] [place] [address] * (ABNORMAL) Troponin I high-sensitivity 6-hour (05/05/2025 11:37 AM CDT) Trop I hs 172(H) <=17 ng/L Comment: Previous critical value noted within 48 hours ago. Interpretive Data For further hscTnI resources including the diagnostic algorithm and an aid in interpretation, copy and paste this link: https://bjhlab.testcatalog.org/show/hsTrop-1 Current Interpretive Data last revised 2020. Trop I hs pct delta -11 % [facility] Trop I hs interp Equivocal [facility] Blood 05/05/2025 11:3 7 AM CDT 05/05/2025 12:24 PM CDT Jacqueline Jules MD LAB BLOOD ORDER WEST[place] Final Result Performing Organization Address [facility]/ZIP Co de Phone Number [facility] [place] [address] * (ABNORMAL) Troponin I high-sensitivity 4-hour (05/05/2025 9:06 AM CDT) Trop I hs 189(H) <=17 ng/L Comment: Interpretive Data For further hscTnI resources including the diagnostic algorithm and an aid in interpretation, copy and paste this link: https://GamerDNA.MYR.org/show/hsTrop-1 Current Interpretive Data last revised 2020. Trop I hs pct delta -3 % [facility] Trop I hs interp Insignificant [facility] BJ H Blood 05/05/2025 9:06 AM CDT 05/05/2025 9:54 AM CDT Jacqueline Jules MD LAB BLOOD ORDER WESTON Final Result Performing Organization Address [facility] Co de Phone Number [facility] [place] [address] * (ABNORMAL) Troponin I high-sensitivity 2-hour (05/05/2025 6:36 AM CDT) Trop I hs 192(H) <=17 ng/L Comment: Interpretive Data For further hscTnI resources including the diagnostic algorithm and an aid in interpretation, copy and paste this link: https://GamerDNA.MYR.org/show/hsTrop-1 Current Interpretive Data last revised 2020. Trop I hs pct delta -1 % [facility] Trop I hs interp Insignificant CERNER BJ H Blood 05/05/2025 6:36 AM CDT 05/05/2025 8:08 AM CDT Jacqueline Jules MD LAB BLOOD ORDER WESTON Final Result Performing Organization Address [facility] de Phone Number [facility] [place] [address] * (ABNORMAL) Troponin I high-sensitivity series (baseline, 2hr, 4hr, 6hr) (05/05/2025 4:48 AM CDT) Trop I hs 194(H) <=17 ng/L Comment: Interpretive Data For further hscTnI resources including the diagnostic algorithm and an aid in interpretation, copy and paste this link: https://bjhlab.testcatalog.org/show/hsTrop-1 Current Interpretive Data last revised 2020. Blood 05/05/2025 4:48 AM CDT 05/05/2025 5:03 AM CDT Result [facility] Lacey Jules MD LAB BLOOD ORDER WESTON Final Result Performing Organization Address [facility] de Phone Number [facility] [place] [address] * (ABNORMAL) eGFR (05/05/2025 4:48 AM CDT) [...] LAB BLOOD ORDER WESTON Final Result [facility] [place] [address] * (ABNORMAL) Pro B-type natriuretic peptide (05/05/2025 [...] Heart J. 2006:27:330-337. 2. Sosa RW, Solange AM. J. AM Prakash Cardiol: Cardiovasc Imag. 2009;2: 216- 225. Interpretive Data Last Revised Date: 2018. Blood 05/05/2025 4:48 AM CDT 05/05/2025 5:03 AM CDT Jacqueline Jules MD LAB BLOOD ORDER WESTON Final Result Performing Organization Address [facility] Co de Phone Number [facility] [place] [address] * (ABNORMAL) Thyroid Function [place] (05/05/2025 4:48 AM CDT) TSH 14.50(H) 0.30 - 4.20 mcIUnit/mL Blood 05/05/2025 4:48 AM CDT 05/05/2025 5:03 AM CDT Jacqueline Jules MD LAB BLOOD ORDER WESTON Final Result Performing Organization Address [facility] de Phone Number [facility] [place] [address] * Protime-INR (05/05/2025 4:48 AM CDT) PT 12.4 9.7 - 13.0 sec INR 1.14 0.90 - 1.20 [facility] Comment: Interpretive data Oral anticoagulant therapeutic ranges: Venous thromboembolism prophylaxis or treatment: 2.0-3.0 CARDIOLOGY Standard range: 2.0-3.0 High-intensity range: 2.5-3.5 Refer to indication-specific guidelines for appropriate target ranges for prosthetic heart valve replacement. Current interpretive data was last revised on 2019. Blood 05/05/2025 4:48 AM CDT 05/05/2025 5:13 AM CDT Narrative [facility] - 05/05/2025 5:19 AM CDT Baseline prior to apixaban initiation. Jacqueline Jules MD LAB BLOOD ORDER WEST[place] Final Result Performing Organization Address City/[facility] de Phone Number [facility] [place] [address] * (ABNORMAL) CBC without differential (05/05/2025 4:48 AM CDT) [facility] WBC 5.83 3.80 - 9.90 K/cumm Hgb 11.8(L) 11.9 - 15.5 g/dL [facility] Hct 37.7 35.6 - 45.5 % [facility] Plt 131(L) 150 - 400 K/cumm [facility] MPV 10.9 9.1 - 12.3 fL [facility] RBC 4.00 3.90 - 5.20 M/cumm [facility] MCV 94.3 81.3 - 96.4 fL [facility] MCH 29.5 27.1 - 33.3 pg [facility] MCHC 31.3(L) 32.3 - 35.7 g/dL [facility] RDW CV 16.8(H) 11.1 - 14.9 % [facility] RDW SD 56.8(H) 35.7 - 48.1 fL [facility] NRBC abs 0.00 0.00 - 0.01 K/cumm [facility] Blood 05/05/2025 4:48 AM CDT 05/05/2025 5:04 AM CDT Jacqueline Jules MD LAB BLOOD ORDER WEST[place] Final Result Performing Organization Address [facility] Co de Phone Number [facility] [place] [address] * (ABNORMAL) T4, free (05/05/2025 4:48 AM CDT) [facility] Free T4 0.70(L) 0.90 - 1.70 ng/dL Blood 05/05/2025 4:48 AM CDT 05/05/2025 5:03 AM CDT Narrative [facility] - 05/05/2025 6:23 AM CDT This test was reflexed from a TSH result. Jacqueline Jules MD LAB BLOOD ORDER WEST[place] Edited Result - Final Performing Organization Address [facility] de Phone Number [facility] [place] [address] * (ABNORMAL) Phosphorus (05/05/2025 4:48 AM CDT) Phosphorus, pl 11.7(H) 2.3 - 4.5 mg/dL Blood 05/05/2025 4:48 AM CDT 05/05/2025 5:03 AM CDT Jacqueline Jules MD LAB BLOOD ORDER WESTON Final Result Performing Organization Address [facility] de Phone Number [facility] [place] [address] * (ABNORMAL) Magnesium (05/05/2025 4:48 AM CDT) Magnesium 2.9(H) 1.4 - 2.5 mg/dL Blood 05/05/2025 4:48 AM CDT 05/05/2025 5:03 AM CDT Jacqueline Jules MD LAB BLOOD ORDER WEST[place] Final Result Performing Organization Address [facility] de Phone Number [facility] [address] * Bilirubin, direct (05/05/2025 4:48 AM CDT) Bilirubin, direct <0.2 0.1 - 0.3 mg/dL Blood 05/05/2025 4:48 AM CDT 05/05/2025 5:03 AM CDT Jacqueline Jules MD LAB BLOOD ORDER WEST[place] Final Result [facility] [place] [address] * (ABNORMAL) Comprehensive metabolic panel (05/05/2025 4:48 AM CDT) Sodium 140 135 - 145 mmol/L Potassium, pl 5.1(H) 3.3 - 4.9 mmol/L [facility] Chloride 100 97 - 110 mmol/L [facility] CO2 24 22 - 32 mmol/L [facility] Anion gap 16(H) 2 - 15 mmol/L [facility] BUN 60(H) 6 - 25 mg/dL [facility] Creatinine 14.48(H) 0.60 - 1.10 mg/dL [facility] Glucose 91 70 - 199 mg/dL [facility] Comment: Interpretive Data Fasting glucose >/= 126 [...] 2022. Calcium 9.5 8.5 - 10.3 mg/dL [facility] Bilirubin, total 0.2 0.1 - 1.2 mg/dL [facility] Protein, pl 5.6(L) 6.5 - 8.5 g/dL [facility] [facility] Albumin 2.8(L) 3.5 - 5.0 g/dL [facility] Alk phos 71 40 - 130 Units/L [facility] ALT 9 7 - 45 Units/L [facility] AST 16 10 - 45 Units/L [facility] Blood 05/05/2025 4:48 AM CDT 05/05/2025 5:03 AM CDT Jacqueline Jules MD LAB BLOOD ORDER [place] Final Result CAMERON DOMINGUEZ [facility] [place] [address] * XR Chest 1 View (05/04/2025 11:16 [...] it. Electronically signed by: Woodrow Dial M.D. us Jacqueline Jules MD IMG XR PROCEDUR ES Final Result * ECG 12 lead (05/04/2025 8:59 PM CDT) Ventricular Rate EKG/Min [address] [facility] Atrial Rate 82 BPM [facility] KY-Interval (MSEC) 160 ms [facility] QRS-Interval (MSEC) 84 ms [facility] QT-Interval (MSEC) 368 ms [facility] QTc 429 ms [facility] P [place] -16 degrees [facility] R [place] -27 degrees [facility] T [place] 134 degrees [facility] Diagnosis Atrial-paced rhythm Minimal voltage criteria for LVH, may be normal variant ( Vanderbilt product ) Septal infarct (cited on or before 20-FEB-2025) T wave abnormality, consider lateral ischemia Abnormal ECG When compared with ECG of 22-FEB-2025 09:14, Electronic atrial pacemaker has replaced Sinus rhythm Confirmed by HARJINDER HANDY M.D ([id number]) on 05/05/2025 2:09:39 PM [facility] 05/04/2025 8:59 PM CDT 05/05/2025 2:09 PM CDT Jacqueline Jules MD ECG ORDERABLES Final Result [facility] * Cardiology Document Scan (04/24/2025 3:35 [...] CV CARDIAC SERVICES PROCEDURES Final Result * Extended/Jail Holter Patch (>48 hours up to 7 days) (04/20/2025 1:47 PM CDT) Anatomical Region Laterality Modality Electrocardiogra phy 04/27/2025 12:4 8 PM CDT Narrative 05/10/2025 1:47 PM CDT HOLTER MONITOR Patient Name: ESTUARDO COPELAND M : 1970 (54y 5m) Gender: F Study Date: 04/27/2025 12:48:59 PM Ht(Inch): Wt(Lb): BSA: Tech: Location: [facility] Order Provider: LUCA MEDRANO BMI: Ref Provider: LUCA MEDRANO PROCEDURES: Holter Report: EXTENDED/RESIDENTIAL HOLTER PATCH (>48 HOURS UP TO 7 DAYS) [[id number]]. Enrollment Period: 2025-04-27 00:00:00 through 2025-04-29 00:00:00. Location: [facility]. INDICATIONS: R00.2 Palpitations. FINDINGS: Holter Data: Min [...] events Runs (VT): 6 events Total beats: 39488 SIGNIFICANT PAUSES: 0 >3 sec Protocol: Recording Duration (Ordered): [id number] Recording Duration (Actual): 65403.3 SUMMARY: *The predominant rhythm was Sinus with [...] 12:48:59 PM Ht(Inch): Wt(Lb): BSA: Tech: Location: [facility] Order Provider: LUCA MEDRANO BMI: Ref Provider: LUCA MEDRANO PROCEDURES: Holter Report: EXTENDED/RESIDENTIAL HOLTER PATCH (>48 HOURS UP TO 7 DAYS)[[id number]]. Enrollment Period: 2025-04-27 00:00:00 through 2025-04-29 00:00:00. Location: [facility]. INDICATIONS: R00.2 Palpitations. FINDINGS: Holter Data: Min [...] events Runs (VT): 6 events Total beats: 28317 SIGNIFICANT PAUSES: 0 >3 sec Protocol: Recording Duration (Ordered): [id number] Recording Duration (Actual): 90091.3 SUMMARY: *The predominant rhythm was Sinus with [...] the Epic Patient chart. Please go to theCardiology tab, [...] 10:0 0 AM CDT Narrative HISTOTRAC - MANAGEMENT LIAISON Sample received in lab. Single Antigen Antibody [...] a method developed and validated by the [facility] HLA laboratory based on an FDA-approved IVD kit (LABScreen Single-Antigen, [employer], [place], [place]). All patient serum samples are pretreated with EDTA before the screen to prevent complement interference. Additional serum treatments, such as adsorption and DTT treatment, may be performed as indicated. Interpretive comments: Low risk: MFI [id number]. Moderate risk: MFI 3196-9315. Increased risk: MFI >/= 5000. The presence [...] at the [facility], [address] [place] [address], 5th floor, [place], [address]. CLIA # [id number]. Rosa Millan, Ph.D., Office Admin, HLA Laboratory Wilmer Prescott M.D., Ph.D., Log Deck Tender, HLA Laboratory Alma Payton, Ph.D., CLIA Log Deck Tender, [facility] Current methodology and interpretive comments last revised on 11/15/2022. Salina Hector MD LAB BLOOD ORDERABLES Final Resul t Performing Organization Address City/[facility] Co de Phone Number HISTOTRAC * HLA Antibody Screen by PRA or SAB per Schedule (Class I and Class II) (03/01/2025 10:00 AM CDT) Blood 03/01/2025 10:0 0 AM CDT Narrative HISTOTRAC - MANAGEMENT LIAISON Sample received in lab and stored. No testing performed at this time. Salina Hector MD LAB BLOOD ORDERABLES Final Resul t Performing Organization Address City/State/[facility] [...] Montez DO LAB BLOOD ORDERABLES Final Result [facility] [place] [address] * (ABNORMAL) Differential, auto (02/24/2025 9:50 AM CDT) Neutrophil abs 4.72 1.50 - 6.50 K/cumm Imm gran abs 0.02 0.00 - 0.10 K/cumm [facility] Lymphocyte abs 0.73(L) 0.80 - 3.30 K/cumm [facility] Monocyte abs 0.42 0.20 - 0.80 K/cumm [facility] Eosinophil abs 0.21 0.00 - 0.50 K/cumm [facility] Basophil abs 0.04 0.00 - 0.10 K/cumm [facility] Neutrophil pct 76.9 % [facility] Comment: Interpretive Data Percent cell count reference ranges are not reported, since discordance with absolute values may lead to misinterpretation of CBC data. Current Interpretive Data was last revised on 2018. Imm gran pct 0.3 % [facility] Comment: Interpretive Data Percent cell count reference ranges are not reported, since discordance with absolute values may lead to misinterpretation of CBC data. Current Interpretive Data was last revised on 2018. Lymphocyte pct 11.9 % [facility] Comment: Interpretive Data Percent cell count reference ranges are not reported, since discordance with absolute values may lead to misinterpretation of CBC data. Current Interpretive Data was last revised on 2018. Monocyte pct 6.8 % [facility] Comment: Interpretive Data Percent cell count reference ranges are not reported, since discordance with absolute values may lead to misinterpretation of CBC data. Current Interpretive Data was last revised on 2018. Eosinophil pct 3.4 % [facility] Comment: Interpretive Data Percent cell count reference ranges are not reported, since discordance with absolute values may lead to misinterpretation of CBC data. Current Interpretive Data was last revised on 2018. Basophil pct 0.7 % [facility] Comment: Interpretive Data Percent cell count reference ranges are not reported, since discordance with absolute values may lead to misinterpretation of CBC data. Current Interpretive Data was last revised on 2018. Blood 02/24/2025 9:50 AM CDT 02/24/2025 10:17 AM CDT Dasha Montez DO LAB BLOOD ORDERABLES Final Result [facility] [place] [address] * (ABNORMAL) CBC with auto differential (02/24/2025 9:50 AM CDT) WBC 6.14 3.80 - 9.90 K/cumm Hgb 12.5 11.9 - 15.5 g/dL [facility] Hct 39.5 35.6 - 45.5 % [facility] Plt 177 150 - 400 K/cumm [facility] MPV 10.8 9.1 - 12.3 fL [facility] RBC 4.37 3.90 - 5.20 M/cumm [facility] MCV 90.4 81.3 - 96.4 fL [facility] MCH 28.6 27.1 - 33.3 pg [facility] MCHC 31.6(L) 32.3 - 35.7 g/dL [facility] RDW CV 15.9(H) 11.1 - 14.9 % [facility] RDW SD 51.0(H) 35.7 - 48.1 fL [facility] NRBC abs 0.00 0.00 - 0.01 K/cumm [facility] Blood 02/24/2025 9:50 AM CDT 02/24/2025 10:17 AM CDT us Dasha Montez DO LAB BLOOD ORDERABLES Final Result [facility] [place] [address] * (ABNORMAL) Basic metabolic panel (02/24/2025 9:50 AM CDT) Sodium 136 135 - 145 mmol/L Potassium, pl 5.0(H) 3.3 - 4.9 mmol/L [facility] Chloride 93(L) 97 - 110 mmol/L [facility] CO2 27 22 - 32 mmol/L [facility] Anion gap 16(H) 2 - 15 mmol/L [facility] BUN 43(H) 6 - 25 mg/dL [facility] Creatinine 11.83(H) 0.60 - 1.10 mg/dL [facility] Glucose 82 70 - 199 mg/dL [facility] Comment: Interpretive Data Fasting glucose >/= 126 [...] 2022. Calcium 7.9(L) 8.5 - 10.3 mg/dL [facility] Blood 02/24/2025 9:50 AM CDT 02/24/2025 10:17 AM CDT Dasha Montez DO LAB BLOOD ORDERABLES Final Result Performing Organization Address City/[facility]/ZIP Co de Phone Number [facility] [place] [address] * (ABNORMAL) eGFR (02/23/2025 11:43 PM CDT) [...] ORDERABLES Final Result Performing Organization Address City/[facility]/ZIP Co de Phone Number [facility] Department [place] [address] * VerifyNow clopidogrel (02/23/2025 11:43 PM CDT) [...] MD LAB BLOOD ORDERABLES Fin al Result [facility] [place] [address] * (ABNORMAL) Phosphorus (02/23/2025 11:43 PM CDT) [facility] Phosphorus, pl 7.6(H) 2.3 - 4.5 mg/dL Blood 02/23/2025 11:4 3 PM CDT 02/24/2025 12:22 AM CDT us Jaimie Giordano MD LAB BLOOD ORDERABLES Final Result [facility] [place] [address] * Magnesium (02/23/2025 11:43 PM CDT) [facility] Magnesium 2.4 1.4 - 2.5 mg/dL Blood 02/23/2025 11:4 3 PM CDT 02/24/2025 12:22 AM CDT us Jaimie Giordano MD LAB BLOOD ORDERABLES Final Result [facility] [place] [address] * (ABNORMAL) Basic metabolic panel (02/23/2025 11:43 PM CDT) [facility] Sodium 133(L) 135 - 145 mmol/L Potassium, pl 4.9 3.3 - 4.9 mmol/L [facility] Chloride 95(L) 97 - 110 mmol/L [facility] CO2 27 22 - 32 mmol/L [facility] Anion gap 11 2 - 15 mmol/L [facility] BUN 52(H) 6 - 25 mg/dL [facility] Creatinine 11.94(H) 0.60 - 1.10 mg/dL [facility] Glucose 89 70 - 199 mg/dL [facility] Comment: Interpretive Data Fasting glucose >/= 126 [...] 2022. Calcium 8.0(L) 8.5 - 10.3 mg/dL [facility] Blood 02/23/2025 11:4 3 PM CDT 02/24/2025 12:22 AM CDT Jaimie Giordano MD LAB BLOOD ORDERABLES Final Result [facility] [place] [address] * LEFT HEART CATHETERIZATION WITH CORONARY ANGIOGRAPHY [...] 54 y.o. female : 1970 MR number: [id number] Date of Service: 02/23/2025 Clother In: Luca Medrano MD Fellow: Sanket Quiroz MD [...] vein graft to her LAD and her iroquois left main. She now presents for urgent cardiac catheterization PROCEDURE: The risks, benefits and alternatives of the procedures and moderate sedation were explained to the patient and informed consent was obtained. The patient was brought to the shipyard laborer and placed on the table Bilateral [...] the LAD angiogram performed using a 6 Maltese 3D RC Percutaneous coronary intervention performed on theSVG to the Proximal LAD. This was an ACC/AHA Type C. Initial Lesion Length 12mm and final lesion Length 20mm. Initial KAROLINA Flow 3 Final KAROLINA Flow 3. Equipment used: 6 3DRC, [facility] IVUS Catheter, Suit Maker 50 wire, 0.9 mm laser atherectomy catheter [...] it was extremely difficult. We used a Suit Maker 50 wire with extreme difficulty wire through [...] 319(H) 123 - 168 sec POC Performer [id number] [facility] POC Device Number [id number] [facility] Blood 02/23/2025 1:41 PM CDT 02/23/2025 1:41 PM CDT us Ellie Saenz MD LAB POCT ORDERABLES - DE VICE Final Result [facility] [place] [address] * (ABNORMAL) POCT Activated clotting time, low range (02/23/2025 12:35 PM CDT) [facility] ACT 351(H) 123 - 168 sec POC Performer [id number] [facility] POC Device Number [id number] [facility] Blood 02/23/2025 12:3 5 PM CDT 02/23/2025 12:35 PM CDT us Ellie Saenz MD LAB POCT ORDERABLES - DE VICE Final Result Performing Organization Address [facility] [place] [address] * (ABNORMAL) aPTT (02/23/2025 6:36 AM CDT) [facility] aPTT 80(H) 28 - 38 sec Comment: Interpretive Data Heparin therapeutic range: 66.0 - 100.0 seconds. Range based on correlation with therapeutic heparin activity range of 0.3 - 0.7 Units/mL. Current interpretive data was last revised on 2023. Blood 02/23/2025 6:36 AM CDT 02/23/2025 7:00 AM CDT us Heaven Lerner MD LAB BLOOD ORDERABLES Final Result Performing Organization Address [facility]/ZIP Co de Phone Number [facility] [place] [address] * (ABNORMAL) eGFR (02/22/2025 11:07 PM CDT) [facility] eGFR 3(L) >=60 mL/min/1. 73 m2 Comment: [...] BLOOD ORDERABLES Final Result Performing Organization Address [facility] Co de Phone Number [facility] [place] [address] * (ABNORMAL) aPTT (02/22/2025 11:07 PM CDT) Pathologist [facility] aPTT 69(H) 28 - 38 sec Comment: Interpretive Data Heparin therapeutic range: 66.0 - 100.0 seconds. Range based on correlation with therapeutic heparin activity range of 0.3 - 0.7 Units/mL. Current interpretive data was last revised on 2023. Blood 02/22/2025 11:0 7 PM CDT 02/22/2025 11:52 PM CDT us Ellie Saenz MD LAB BLOOD ORDERABLES Fin al Result Performing Organization Address [facility] Co de Phone Number [facility] [place] [address] * (ABNORMAL) Phosphorus (02/22/2025 11:07 PM CDT) Pathologist [facility] Phosphorus, pl 7.2(H) 2.3 - 4.5 mg/dL Blood 02/22/2025 11:0 7 PM CDT 02/22/2025 11:50 PM CDT Jaimie Giordano MD LAB BLOOD ORDERABLES Final Result Performing Organization Address City/[facility]/ZIP Co de Phone Number [facility] [place] [address] * Magnesium (02/22/2025 11:07 PM CDT) [facility] Magnesium 2.5 1.4 - 2.5 mg/dL Blood 02/22/2025 11:0 7 PM CDT 02/22/2025 11:50 PM CDT Jaimie Giordano MD LAB BLOOD ORDERABLES Final Result Performing Organization Address [facility] de Phone Number [facility] [place] [address] * (ABNORMAL) Basic metabolic panel (02/22/2025 11:07 PM CDT) [facility] Sodium 134(L) 135 - 145 mmol/L Potassium, pl 4.5 3.3 - 4.9 mmol/L [facility] Chloride 95(L) 97 - 110 mmol/L [facility] CO2 28 22 - 32 mmol/L [facility] Anion gap 11 2 - 15 mmol/L [facility] BUN 56(H) 6 - 25 mg/dL [facility] Creatinine 11.97(H) 0.60 - 1.10 mg/dL [facility] Glucose 104 70 - 199 mg/dL [facility] Comment: Interpretive Data Fasting glucose >/= 126 [...] 2022. Calcium 7.8(L) 8.5 - 10.3 mg/dL [facility] Blood 02/22/2025 11:0 7 PM CDT 02/22/2025 11:50 PM CDT Jaimie Giordano MD LAB BLOOD ORDERABLES Final Result Performing Organization Address City/[facility] Co de Phone Number [facility] [employer] [place] [address] * (ABNORMAL) aPTT (02/22/2025 2:25 PM CDT) Pathologist [facility] aPTT 54(H) 28 - 38 sec Comment: Interpretive Data Heparin therapeutic range: 66.0 - 100.0 seconds. Range based on correlation with therapeutic heparin activity range of 0.3 - 0.7 Units/mL. Current interpretive data was last revised on 2023. Blood 02/22/2025 2:25 PM CDT 02/22/2025 2:59 PM CDT Dasha Montez DO LAB BLOOD ORDERABLES Final Result Performing Organization Address City/[facility] Co de Phone Number [facility] [place] [employer] [address] * TRANSTHORACIC ECHO (TTE) COMPLETE W DOPPLER/CF W CONTRAST (02/22/2025 1:39 PM CDT) EF Mod BP 51 % CONS SCIMAGE Anatomical Region Laterality Modality Ultrasound 02/22/2025 12:3 8 PM CDT Narrative 02/22/2025 2:49 PM CDT [facility] [place] [place] [address] Transthoracic Echocardiographic Report Patient Name: ESTUARDO COPELAND M : 1970 (54y 3m) Gender: F Study Date: 02/22/2025 12:38:48 PM Ht(Inch): 64 Wt(Lb): 123.9 BSA: 1.59 Odd Piece Checker: Marisol Arciniega RD, [facility] Location: [id number] Order Provider: ELLIE SAENZ Heart Rate: 75 [...] Procedure Note Rc Koehler MD - 02/22/2025 [facility] [place] [address] Transthoracic Echocardiographic Report Patient Name: ESTUARDO COPELAND M : 1970 (54y 3m) Gender: F Study Date: 02/22/2025 12:38:48 PM Ht(Inch): 64 Wt(Lb): 123.9 BSA: 1.59 Odd Piece Checker: Marisol Arciniega RDCS, [facility] Location: [id number] OrderProvider: ELLIE SAENZ Heart Rate: 75 BMI: [...] [ 2.70 - 3.70 ] MV Decel [id number] msec [ 104.00 - 258.00 ] Ao [...] ECG 12 lead (02/22/2025 9:14 AM CDT) [facility] Ventricular Rate EKG/Min [address] [facility] Atrial Rate 80 BPM [facility] KY-Interval (MSEC) 96 ms [facility] QRS-Interval (MSEC) 90 ms [facility] QT-Interval (MSEC) 412 ms [facility] QTc 475 ms [facility] P [place] 90 degrees [facility] R [place] -30 degrees [facility] T [place] 133 degrees [facility] Diagnosis Sinus rhythm with sinus arrhythmia with short [place] Left axis deviation Left ventricular hypertrophy ( Romhilt-Pierce ) Cannot rule out Septal infarct (cited on 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-FEB-2025) ST & T wave abnormality, consider lateral ischemia Abnormal ECG When compared with ECG of 22-FEB-2025 01:51, (unconfirmed) Sinus rhythm has replaced Atrial fibrillation Confirmed by HARJINDER HANDY M.D ([id number]) on 03/05/2025 11:42:44 AM [facility] 02/22/2025 9:14 AM CDT 03/05/2025 11:42 AM CDT us Jaimie Giordano MD ECG ORDERABLES Victoria becerra Result [facility] * (ABNORMAL) Troponin I high-sensitivity 4-hour (02/22/2025 6:24 AM CDT) [facility] Trop I hs 1,868(C) <=17 ng/L Comment: Previous critical value noted within 48 hours ago. Interpretive Data For further [facility] resources including the diagnostic algorithm and an aid in interpretation, copy and paste this link: [email or web address]/[email or web address] Current Interpretive Data last revised 2020. Trop I hs pct delta -19(C) % [facility] Comment:Previous critical va lue noted within 48 hours ago. Trop I hs interp Significa nt(C) [facility] Comment:Previous critical va lue noted within 48 hours ago. Blood 02/22/2025 6:24 AM CDT 02/22/2025 6:48 AM CDT Milton Rubio MD LAB BLOOD ORDERABLES Final Resul t Performing Organization Address [facility] de Phone Number [facility] [employer] [place], [place] [id number] * (ABNORMAL) Troponin I high-sensitivity 2-hour (02/22/2025 4:51 AM CDT) Trop I hs 2,146(C) <=17 ng/L Comment: Previous critical value noted within 48 hours ago. Interpretive Data For further [facility] resources including the diagnostic algorithm and an aid in interpretation, copy and paste this link: [email or web address]/[email or web address] Current Interpretive Data last revised 2020. Trop I hs pct delta -7 % [facility] Trop I hs interp Equivocal [facility] Blood 02/22/2025 4:51 AM CDT 02/22/2025 5:26 AM CDT Milton Rubio MD LAB BLOOD ORDERABLES Final Resul t Performing Organization Address [facility] Co de Phone Number [facility] [place] [address] * (ABNORMAL) aPTT (02/22/2025 4:51 AM CDT) [...] Final Resul t Performing Organization Address City/[facility] Co de Phone Number CAMREON [facility] [place] [address] * Infection Prevention Anthony auris PCR, surveillance Axilla/Groin (02/22/2025 2:05 AM CDT) Anthony auris DNA Not Detected Not Detected [facility] Comment: Interpretive Data Testing performed by [facility]ious Disease [facility] using the Pablo estelle 8020 [employer]0 Anthony auris assay. This assay detects DNA from Anthony auris using Real-Time PCR. This assay is laboratory developed and is not cleared by the [facility] Food and Drug Administration. The performance characteristics have been verified by the [facility]. Axilla/Groin 02/22/2025 2:05 AM CDT 02/22/2025 3:14 AM CDT Narrative NONALARA DOMINGUEZ - 02/22/2025 2:38 PM CDT Order placed by [facility] due to ring surveillance. Instant Order Generic Provider LAB MICROBIOLOGY - GENERAL ORDERABLES Final Result Performing Organization Address [facility] Co de Phone Number [facility] [place] [address] [facility] * (ABNORMAL) Troponin I high-sensitivity series [...] Final Resul t Performing Organization Address City/[facility] Co de Phone Number [facility]ON [facility] [place] [address] * (ABNORMAL) eGFR (02/22/2025 2:05 AM CDT) [...] ORDERABLES Final Resul t Performing Organization Address [facility] Co de Phone Number [facility] [place] [address] * Magnesium (02/22/2025 2:05 AM CDT) Magnesium 2.5 1.4 - 2.5 mg/dL Blood 02/22/2025 2:05 AM CDT 02/22/2025 2:58 AM CDT us Milton Rubio MD LAB BLOOD ORDERABLES Final Resul t [facility] [place] [address] * (ABNORMAL) Comprehensive metabolic panel (02/22/2025 2:05 AM CDT) Pathologist [facility] Sodium 138 135 - 145 mmol/L Potassium, pl 4.3 3.3 - 4.9 mmol/L [facility] Chloride 95(L) 97 - 110 mmol/L [facility] CO2 26 22 - 32 mmol/L [facility] Anion gap 17(H) 2 - 15 mmol/L [facility] BUN 55(H) 6 - 25 mg/dL [facility] Creatinine 12.63(H) 0.60 - 1.10 mg/dL [facility] Glucose 99 70 - 199 mg/dL [facility] Comment: Interpretive Data Fasting glucose >/= 126 [...] 2022. Calcium 8.1(L) 8.5 - 10.3 mg/dL [facility] Bilirubin, total 0.2 0.1 - 1.2 mg/dL [facility] Protein, pl 6.0(L) 6.5 - 8.5 g/dL [facility] Albumin 2.6(L) 3.5 - 5.0 g/dL [facility] Alk phos 59 40 - 130 Units/L [facility] ALT 14 7 - 45 Units/L [facility] AST 20 10 - 45 Units/L [facility] Blood 02/22/2025 2:05 AM CDT 02/22/2025 2:58 AM CDT us Milton Rubio MD LAB BLOOD ORDERABLES Final Resul t Performing Organization Address City/[facility]/ZIP Co de Phone Number [facility] Department [place] [address] * ECG 12 lead (02/22/2025 1:45 AM CDT) Ventricular Rate EKG/Min 137 BPM [facility] QRS-Interval (MSEC) 94 ms [facility] QT-Interval (MSEC) 316 ms [facility] QTc 477 ms [facility] R [place] -41 degrees [facility] T [place] 137 degrees [facility] Diagnosis Age and gender specific ECG analysis Sinus tachycardia Anteroseptal ST-elevation Poor R-wave progression in the precordial leads Left axis deviation Minimal voltage criteria for LVH, may be normal variant ( Vanderbilt product ) Anteroseptal infarct , possibly acute T wave abnormality, consider lateral ischemia Abnormal ECG No previous ECGs available Confirmed by HARJINDER HANDY M.D ([id number]) on 02/23/2025 3:10:53 PM [facility] 02/22/2025 1:45 AM CDT 02/23/2025 3:10 PM CDT us Jaimie Giordano MD ECG ORDERABLES Victoria l Result Performing Organization Address City/[facility]/ZIP Co de Phone Number [facility] * Hepatitis C antibody Blood (01/28/2025 9:42 AM CDT) Hep C Ab Nonreactive Nonreactive Comment:Antibodies to HCV no t detected. Does NOT exclude the possibility of recent exposure to HCV. Current interpretive data was last revised on 22 Blood 01/28/2025 9:42 AM CDT 01/28/2025 10:56 AM CDT us Tamar Tang MD LAB MICROBIOLOGY - GENERAL ORD ERABLES Final Result [facility] Department [place] [address] from Last 3 Months or Most Recently Relevant to Health Maintenance Insurance [employer] IDWI [employer]ARE MEDICARE [employer] MED[employer]ARE TRANSPLANT [facility] Advance Directives For more information, please contact: [phone] * Full Code (Latest Code Status on [...] 10:59 AM 12/28/2024 9:10 AM Care Teams Sonoscope Operator Relationship Specialty Start Date End Date ScarlettmelanyfredPal PCP - General Internal Medicine 01/25/21 Quinton Rowan MD Referring Physician Cardiology 01/09/19 Tami Flores, TONO [address] [address] Registered Nurse Warp Knitter 01/25/21 Cricket Escalante MD [address] [address] Referring Physician Nephrology 03/24/21 Gael Sprague MD PhD [address] [address] Fellow Endocrinology Diabetes & Metabolism 03/24/21 Brad Turner MD [facility] [address] [place] [address] Consulting Physician Obstetrics and Gynecology 03/24/21 Margarita Montoya MD [address] [address] Consulting Physician Trauma Surgery 12/27/21 Luca Medrano MD [address] [id number] Consulting Physician Cardiology 08/03/22 Pb Galloway MD [address] [id number] Cardiothoracic Surgery 05/25/24 Felipe Gerber MD [address] [place] [address] Consulting Physician Cardiology 05/25/24
--- OUTSIDE RECORDS SUMMARY | 2025-05-25 01:29 | XMS_ITS ---
Author Organization [facility] Address [address] [place] [address] Care Team Providers Care Chief Legal Officer Name Role Phone Quinton Rowan MD Unavailable [phone] Pal Downey DO Primary Care Provider Tami Flores RN Unavailable Cricket Escalante MD Unavailable [phone] Gael Sprague MD PhD Unavailable Brad Turner MD Unavailable [phone] Margarita Montoya MD Unavailable Luca Lott MD Unavailable Pb Galloway MD Unavailable Felipe Gerber MD Unavailable [phone] Transplant Episode Kidney Candidate [facility] ([place], [place]) [facility] Center waitlisted on 09/05/2021 Marked as Inactive on 03/13/2024 Reason: 03 - Candidate Work-up Incomplete Kidney CoordinatorTami Flores RN Email: N/A Scores Score Value Updated Exceptions/Reas ons CPRA Not available EPTS (Calc) 30 05/25/2025 [place] Organ Diagnosis Organ Primary Contributory Kidney Polycystic Kidneys Care Team Name Role Phone Fax Email Tami Flores RN Kidney Coordinator [phone] N/A Mariann Bobo Gear Design Engineer [phone] N/A N/A Events Pre-Transplant Referred: 10/06/2020 Evaluation began: 03/24/2021 Committee: 09/04/2021 Center waitlisted: 09/05/2021 Dialysis History Dialysis History Start End Type Comments Center 01/09/2022 Peritoneal 7 days a week D mine Escalante [facility] Dialysis Center Information Center Phone Fax Address [facility] [phone] [address] [phone]
--- OUTSIDE RECORDS SUMMARY | 2025-05-25 01:29 | XMS_ITS | Clinical Summary ---
Author Organization [facility] Address [address] [place] [address] Phone Care Team Providers Care Regional Facilities Specialist Name Role Phone ScarlettmelanyPal ibarra DO Primary Care Provider [phone] Allergies Active Allergy Reactions Criticality Noted Date [...] on file Legal Sex Female 9:07 AM [facility] Gender Identity Not on file Sexual Orientation Not on file Last Filed Vital Signs Vital Sign Reading Time Taken Comments Blood Pressure 122/70 12/22/2021 9:43 PM PATCH MACHINE OPERATOR Pulse 72 12/22/2021 9:43 PM PATCH MACHINE OPERATOR Temperature 36.2 C (97.2 F) 12/22/2021 9:43 PM PATCH MACHINE OPERATOR Respiratory Rate - - Oxygen Saturation - - Inhaled Oxygen Concentration - - Weight 50.3 kg (111 lb) 12/22/2021 9:43 PM PATCH MACHINE OPERATOR Height 162.6 cm (5' 4) 12/22/2021 9:43 PM PATCH MACHINE OPERATOR Body Mass Index 19.05 12/22/2021 9:43 PM PATCH MACHINE OPERATOR Plan of Treatment Health Maintenance Due Date Last Done Comments Influenza Vaccine (#1) 2025 10/21/2017 [place] [address] [facility] Care Teams Regional Facilities Specialist Relationship Specialty Start Date End Date Pal Downey DO [address] [place] [address] PCP - General Internal Medicine 02/04/19
--- OUTSIDE RECORDS SUMMARY | 2025-05-25 01:30 | XMS_ITS | Encounter Summary ---
Author Organization [facility] [employer] [facility] Address [address] [place] [address] Phone Care Team Providers Care Vice President Of Academic Affairs Name Role Phone Quinton Rowan MD Unavailable [phone] Pal Downey DO Primary Care Provider [phone] Tami Flores RN Unavailable Cricket Escalante MD Unavailable Gael Sprague MD PhD Unavailable Brad Turner MD Unavailable Margarita Montoya MD Unavailable Luca Lott MD Unavailable Pb Galloway MD Unavailable [phone] Felipe Gerber MD Unavailable [phone] Claire Rosales [facility] Unavailable Encounter Details Date Type Department Care Team (Late st Contact Info) Description 05/12/2025 Telephone [facility] Cardiology [address] [facility] Advanced Medicine 8th [place] [address] [place] [address] Luca Lott MD [address] [place] [address] Social History Tobacco Use Types Packs/Day Years Used Date Smoking Tobacco: Former Cigarettes 1 20 0 04/01/1992 - 04/01/2012 Smokeless Tobacco: Never Alcohol Use Standard Drinks/Week Comments Yes 0 (1 standard drink = 0.6 oz pur e alcohol) occasional [facility] Utilities Answer Date Recorded In the past 12 months has e electric, gas, oil, or water [employer] threatened to shut off services in your home? Patient declined 05/10/2025 Social Connection and Isolation Panel [NHANES] A nswer Date Recorded In a typical week, how many times do you talk on the phone with family, friends, or neighbors? Patient declined 05/10/2025 How often do you get togethe r with friends or relatives? Patient declined 05/10/2025 How often do you attend yazidi or faith serv ices? Patient declined 05/10/2025 Do you belong to any clubs o r organizations such as yazidi groups, unions, fraternal or athletic groups, or [...] any time in the past 12 m [facility], were you homeless or living in a senior living (including now)? Patient declined 05/10/2025 Personal Safety Answer Date Recorded Have you ever been in or are you currently in a harmful physical or emotional relationship or is someone making you feel afraid or unsafe? Denies 05/11/2025 Comments No Sex and Gender Information Value Date Recorded Sex Assigned at Not on file Legal Sex Female 4:06 AM TUNNEL KILN OPERATOR Gender Identity Female 01/16/2024 11:18 AM [...] Samanta Joy; Quintin Im Rosalie Lott Clinical [place] Subject: Cath follow up Can we add under clinic for 4-6 weeks. Okay to add on at noon if needed Thanks luca documented in this encounter Plan of Treatment Scheduled Procedures Name Priority Associated Diagnoses Date/Ti me TRANSPLANT KIDNEY ESRD (end stage renal disease) (HCC) documented as of this encounter Visit Diagnoses Not on filedocumented in this encounter Care Teams Vice President Of Academic Affairs Relationship Specialty Start Date End Date Pal Downey DO PCP - General Internal Medicine 01/25/21 Quinton Rowan MD Referring Physician Cardiology 01/09/19 Tami Flores RN [address] [address] Registered Nurse Supervisor Pipe Finishing 01/25/21 Cricket Escalante MD [address] [address] Referring Physician Nephrology 03/24/21 Gael Sprague MD PhD [address] [address] Fellow Endocrinology Diabetes & Metabolism 03/24/21 Brad Turner MD [address] [place] [address] Consulting Physician Obstetrics and Gynecology 03/24/21 Margarita Montoya MD [address] [place] [id number] Consulting Physician Trauma Surgery 12/27/21 Luca Lott MD [address] [address] Consulting Physician Cardiology 08/03/22 Pb Galloway MD [address] [address] Cardiothoracic Surgery 05/25/24 Felipe Gerber MD [address] [address] Consulting Physician Cardiology 05/25/24 Claire Rosales LCSW [address] [facility] ([facility] Mailstop [phone] [place] [address] [facility] Outpatient Retread Builder 05/10/25 05/18/25 documented as of this encounter
--- OUTSIDE RECORDS SUMMARY | 2025-05-25 01:31 | XMS_ITS | Encounter Summary ---
Author Organization [facility] Address [address] [place] [address] Care Team Providers Care Soda Flaker Name Role Phone Quinton Rowan MD Unavailable [phone] Pal Downey DO Primary Care Provider [phone] Tami Flores RN Unavailable Cricket Escalante MD Unavailable [phone] Gael Sprague MD PhD Unavailable Brad Turner MD Unavailable [phone] Margarita Montoya MD Unavailable [phone] Luca Lott MD Unavailable Pb Galloway MD Unavailable [phone] Felipe Gerber MD Unavailable [phone] Claire Rosales [facility] Unavailable Reason for Visit * Reason Onset Date Comments Admit Notification 05/04/2025 Encounter Details Date Type Department Care Team (Late st Contact Info) Description 05/04/2025 Telephone [facility] Bed Planning [address] [place] [address] Wiley Pulliam, tanker driver Notification Social History Tobacco Use Types Packs/Day [...] on file Legal Sex Female 4:06 AM RADIOLOGY TRANSCRIPTIONIST Gender Identity Female 01/16/2024 11:18 AM CDT Sexual Orientation Straight 01/16/2024 11 :18 AM CDT documented as of this encounter Plan of Treatment Scheduled Procedures Name Priority Associated Diagnoses Date/Ti me TRANSPLANT KIDNEY ESRD (end stage renal disease) (HCC) documented as of this encounter Visit Diagnoses Not on filedocumented in this encounter Care Teams Soda Flaker Relationship Specialty Start Date End Date Pal Downey DO PCP - General Internal Medicine 01/25/21 Quinton Rowan MD Referring Physician Cardiology 01/09/19 Tami Flores, TONO [address] [address] Registered Nurse Graduate Fellow 01/25/21 Cricket Escalante MD [address] [address] Referring Physician Nephrology 03/24/21 Gael Sprague MD PhD [address] [facility] [address] [place] [address] Fellow Endocrinology Diabetes & Metabolism 03/24/21 Brad Turner MD [address] [address] Consulting Physician Obstetrics and Gynecology 03/24/21 Margarita Montoya MD [address] [address] Consulting Physician Trauma Surgery 12/27/21 Luca Lott MD [address] [facility] [address] [address] Consulting Physician Cardiology 08/03/22 Pb Galloway MD [address] [facility] [address] [address] Cardiothoracic Surgery 05/25/24 Felipe Gerber MD [address] [facility] [address] [address] Consulting Physician Cardiology 05/25/24 Claire Rosales, [facility] [address] [facility] Mailstop [phone] [place] [address] [facility] Outpatient Perfumer 05/10/25 05/18/25 documented as of this encounter
--- NOTE | 2025-05-25 05:02 | PC.NURSE ---
Pt presents to ED c/o 9/10 L burning flank pain, radiating to abdomen. Pt is peritoneal dialysis patient, per pt took 2 norco yesterday with no relief.
--- NOTE | 2025-05-25 05:23 | ECG_ITS ---
Test Date: 2025-05-25 05:27:08 Measurements Intervals [place] Rate: 69 P: 111 PA: 151 QRS: -31 QRSD: 104 T: 157 QT: 405 QTc: 436 Interpretive Statements ELECTRONIC ATRIAL PACEMAKER WITH INHIBITION LEFT AXIS DEVIATION LEFT VENTRICULAR HYPERTROPHY AND ST-T CHANGE CANNOT R/O SEPTAL INFARCT, AGE INDETERMINATE ST-T WAVE ABNORMALITY IN DIFFUSE LEADS- CONSIDER ISCHEMIA BASELINE ARTIFACT- I, II, AVR, V4-V6 ABNORMAL ECG Compared to ECG 04/22/2025 22:50:36 Atrial fibrillation no longer present Electronically Signed On 05-25-2025 06:33:33 CDT by Rfaael Calzada D.O.
[2025-05-25 05:29] LABS: Hematocrit 42.2 % (37.0-47.0); Hemoglobin 12.9 g/dL (12.0-15.0); Immature Granulocyte Percent A 0.4 % (0-0.5); Lymphocytes Absolute Auto 0.79 K/mm3 (0.9-3.2); Mean Corpuscular HGB Conc 30.6 g/dl (32-36); Mean Corpuscular Hemoglobin 29.5 pg (26-34); Mean Corpuscular Volume 96.6 fl (80-100); Nucleated Red Blood Cells Absolute Auto 0.000 K/mm3 (0.0-0.012); Nucleated Red Blood Cells Perc 0.0 % (0.0-0.2); Platelet Count Result 179 k/mm3 (150-375); Red Blood Count 4.37 M/mm3 (4.2-5.4); White Blood Count 9.0 K/mm3 (4.5-10.0)
--- OUTSIDE RECORDS SUMMARY | 2025-05-25 05:39 | XMS_ITS | Clinical Summary ---
Author Organization [facility] Address [address] [place] [address] Care Team Providers Care Ibm Mainframe Developer Name Role Phone Unavailable Primary Care Provider [...]
--- OUTSIDE RECORDS SUMMARY | 2025-05-25 05:40 | XMS_ITS | Referral Summary ---
Author Organization [facility] Address [address] [place] [address] Care Team Providers Care Pet Groomer Name Role Phone Quinton Rowan MD Unavailable [phone] Pal Downey DO Primary Care Provider [phone] Tami Flores RN Unavailable [phone] Cricket Escalante MD Unavailable [phone] Gael Sprague MD PhD Unavailable Brad Turner MD Unavailable [phone] Margarita Montoya MD Unavailable Luca Lott MD Unavailable Pb Galloway MD Unavailable Felipe Gerber MD Unavailable [phone] Encounters Date Type Department Care Team Description 05/19/2025 SHOP/CHAP Subsequent Outreach [facility] [address] [place] [phone] Claire Rosales LCSW 05/13/2025 SHOP/CHAP Subsequent Outreach [facility] 1 [place] [phone] Claire Rosales LCSW 05/12/2025 Telephone [facility] Cardiology [facility] ([place], [place] Advanced Medicine 8th [place] [address] [place] [address] Luca Lott MD 05/12/2025 Telephone [facility] Cardiology [address] [facility] Medical Office Building 3 [address] [place] [address] Luca Lott MD [facility] 05/12/2025 Telephone [facility] Heart critical access hospital Vascular [place] 1 [place] [address] Reagan Vences MD 05/11/2025 12:55 PM CDT - 05/11/2025 2:25 PM CDT Surgery [facility] Vascular [place] [address] [place] [address] Luca Lott MD LEFT HEART CATHETERIZATION WITH CORONARY ANGIOGRAPHY AND WITH OR WITHOUT LEFT VENTRICULOGRAM [id number] 05/11/2025 11:13 AM CDT - 05/11/2025 7:34 PM CDT Hospital [facility] Heart critical access hospital V[facility] [place] [address] [place] [address] Luca Lott MD Chronic heart failure with preserved ejection fraction (HCC) [I50.32] (Primary Dx); Coronary artery disease involving [place] coronary artery of [place] heart without angina pectoris Discharge Disposition: Discharge to home or self care 05/10/2025 SHOP/CHAP Initial Outreach [facility] 1 [place] [address] Claire Rosales LCSW 05/10/2025 SHOP/CHAP Initial Eligibility Review [facility] 1 [place] [address] Claire Rosales LCSW 05/07/2025 Telephone [facility] Cardiology [facility] ([place], [place] Advanced Medicine 8th [place] [address] [place] [address] Luca Lott MD 05/04/2025 7:27 PM CDT - 05/07/2025 5:52 PM CDT Hospital Encounter [facility] 1 [place] [address] Kalen Villegas MD PhD Jorge A, MD Tirso Mejia, Ashley Farnsworth MD Discharge Disposition: Discharge to home or self care 05/04/2025 Telephone [facility] Bed Planning 1 [place] [address] Wiley Pulliam, corporate officer Notification 04/29/2025 Orders Only [facility] Cardiology [address] [place] [address] Building [address] [place] [phone] Lane Ramos MD PhD S/P placement of cardiac pacemaker; Sick sinus syndrome (HCC) 04/28/2025 Telephone [facility] Cardiology [facility] ([place], [place] Advanced Medicine 8th [place] [address] [place] [address] [address] Ramos MD PhD 04/27/[address] [facility] Cardiology [address] [place] [address] Eduin Springer MD 04/26/2025 Telephone [facility] Cardiology [address] [facility] [place] Advanced Medicine 8th [place] [address] [place] [address] Luca Lott MD 04/23/2025 Orders Only [address] Building 3 [address] [place] [address] Lane Ramos MD PhD 04/20/2025 10:00 AM CDT - 04/20/2025 11:59 PM CDT Hospital Encounter [address] [address] ESRD (end stage renal disease) (HCC) Discharge Disposition: Discharge to home or self care 04/20/2025 2:00 PM CDT Ancillary Procedure [facility] [address] [place] [address] 3 [address] [place] [address] Palpitations 04/20/2025 Orders Only [facility] Cardiology [address] [facility] Medical Office Building 3 [address] [place] [address] Luca Lott MD Palpitations (Primary Dx) 04/07/2025 Telephone [facility] and [facility] Transplant Kidney [address] [facility] [address] Mailstop [phone] [place] [address] Tiarra Mcdermott 04/07/2025 Telephone [facility] and [facility] Transplant Kidney [address] [facility] [address] Mailstop [phone] [place] [address] Tami Flores, TONO 04/07/2025 11:30 AM CDT Office Visit [facility] Cardiology [address] [facility] Medical Office Building 3 [address] [place] [address] Luca Lott MD Nonrheumatic aortic valve stenosis (Primary Dx); Coronary artery disease involving [place] coronary artery of [place] tribe heart without angina pectoris 03/27/2025 Orders Only [facility] Cardiology [address] [facility] 8th [place] [address] [place] [address] Claire Mcnally, TONO 03/25/2025 10:00 AM CDT - 03/25/2025 11:59 PM CDT Hospital Encounter [address] [address] ESRD (end stage renal disease) (HCC) Discharge Disposition: Discharge to home or self care 03/02/2025 SHOP/CHAP Initial Outreach [facility] 1 [place] [address] Claire Rosales LCSW 03/01/2025 10:00 AM CDT - 03/01/2025 11:59 PM CDT Hospital Encounter [address] [address] ESRD (end stage renal disease) (HCC) Discharge Disposition: Discharge to home or self care 02/26/2025 SHOP/CHAP Initial Outreach [facility] 1 [place] [address] BobbyClairey, [employer]TER 02/25/2025 SHOP/CHAP Initial Outreach [facility] 1 [place] [address] Claire Rosalesy, [employer] 02/25/2025 SHOP/CHAP Initial Eligibility Review [facility] 1 [place] [address] BobbyClaire Christine, [facility] 02/20/2025 8:07 PM CDT - 02/24/2025 3:54 PM CDT Hospital Encounter [facility] 1 [place] [address] Elvin Giordano, MD Dany Nails Namrata Nikhil, MD Acute coronary syndrome (HCC) (Primary Dx); Chest pain [R07.9]; Coronary artery disease involving [place] coronary artery of [place] heart without angina pectoris [I25.10] Discharge Disposition: Discharge to home or self care 02/23/2025 11:33 AM CDT - 02/23/2025 12:53 PM CDT Surgery [facility] 1 [place] [address] Luca Lott MD LEFT HEART CATHETERIZATION WITH CORONARY ANGIOGRAPHY AND WITH OR WITHOUT LEFT VENTRICULOGRAM 14161 from Last 3 Months Allergies Active Allergy [...] no reactions Penicillins Anaphylaxis,Rash,Un known High 04/29/2015 Lhgsyzf-Xft-Axh Reductase Inhibitors Muscle pain Medium 02/20/2025 Trialed [...] 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 [facility] admit 04/22-04/24 for afib with work up TSH wnl, hyperkalemic, troponins flat. Reports palpitations stopped last week. 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 [facility] admit 04/22-04/24 for afib with work up TSH wnl, hyperkalemic, troponins flat. Reports palpitations stopped last week. Planned direct admission for amiodarone loading, however, patient is no longer wanting to complete this (patient has appropriate concerns about mcc side effects of Amio, particularly with her thyroid disease) - Continue home apixaban BID - EP consulted -> recommended device interrogation (completed) and TTE - Telemetry monitoring Assessment & Plan (05/05/2025 5:31 PM CDT): AT/AF burden 0.8% per device transmission. [facility] admit 04/22-04/24 for afib with work [...] CDT): AT/AF burden 0.8% per device transmission. [facility] admit 04/22-04/24 for afib with work [...] (02/01/2022): Added automatically from request for surgery [id number] Assessment & Plan (02/05/2025 3:15 PM CDT): Undergoing pre transplant evaluation. We will review with Dr. Lott regarding possible candidacy for transplant list given recent interventions. Continued to DAPT Disorder of peritoneal dialysis catheter 022 Overview (12/22/2021): Added automatically from request for surgery [id number] Chronic kidney disease, stage V 10/31/2021 Overview (08/21/2023): Added automatically from request for surgery [id number] Sick sinus syndrome 11/02/2020 Assessment & Plan [...] Assessment & Plan (02/25/2019 11:43 AM CDT): [facility] with 95% LAD lesion, had [...] Assessment & Plan (02/24/2019 9:29 AM CDT): [facility] with 95% LAD lesion, had [...] Assessment & Plan (02/20/2019 5:17 AM CDT): [facility] with 95% LAD lesion, had some RV dysfunction during AV repair and found to have RCA occlusion following LAD bypass - s/p IABP placement - CABG to LAD and LCA Assessment & Plan (02/19/2019 2:08 AM CDT): [facility] with 95% LAD lesion, had some RV dysfunction during AV repair and found to have RCA occlusion following LAD bypass - s/p IABP placement - CABG to LAD and LCA Assessment & Plan (02/17/2019 7:38 PM CDT): [facility] with 95% LAD lesion, had some RV dysfunction during AV repair and found to have RCA occlusion following LAD bypass - s/p IABP placement - CABG to LAD and LCA - on Epi and Milrinone, wean epi as above Assessment & Plan (02/16/2019 11:38 PM CDT): [facility] with 95% LAD lesion, had some RV dysfunction during AV repair and found to have RCA occlusion following LAD bypass - s/p IABP placement - CABG to LAD and LCA - on Epi and Milrinone of inotropy Assessment & Plan (02/11/2019 6:16 PM CDT): [facility] with 95% LAD lesion, had some RV dysfunction during AV repair and found to have RCA occlusion following LAD bypass - s/p IABP placement - CABG to LAD and LCA - on Epi and Milrinone of inotropy Assessment & Plan (02/08/2019 5:38 PM CDT): -Patient w/ chest pain/SOB along w/ significant troponin elevation -Plan for [facility] w/ possible PCI tomorrow pending [...] to 4.35 - valve team consulted, 02/09 [facility] with severe 1 vessel disease [...] (02/09/2019): Added automatically from request for surgery [id number] Assessment & Plan (05/17/2019 9:19 AM CDT): [...] (02/10/2019): Added automatically from request for surgery [id number] Assessment & Plan (05/07/2025 3:38 PM CDT): Presents with worsening PRASAD and chest pain. History of KARIAN LAD 10/2024 LM 12/2024, instent restenosis 02/2025 [...] changes - Dr. 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 Escalante Continue lasix 40 mg [...] kidney disease, baseline Cr 2.4-2.6. F/b OSH senior director. Apparently discussions for potential need for renal txp being discussed. - Cr at baseline on adm - avoid nephrotoxins, renally dose meds - continue calcitriol 0.5 mcg/day - Cr 2.75, received pre-cath hydration, stable 2.7 Headache 05/02/2016 Moderate COPD (chronic obstr uctive pulmonary disease) ([facility]) 11/02/2015 Assessment & Plan (05/07/2025 [...] CDT): Alexis TAVR 05/21 Followed by [facility], Dr. Lott. CT TAVR [...] not a candidate for [facility] Assessment & Plan (05/17/2019 9:28 [...] AV. Referred to valve team by primary pulp piler Dr. Rowan. Seen 02/02 by valve team (Dr. Gerber) and CTS (Dr. eFrnández) - TAVR TTE 02/02 with paradoxical low [...] around 2.4 Dr Escalante is her home senior director Assessment & Plan (02/23/2019 12:20 PM CDT): Pt above POW by 2 kg. Lasix on hold due to elevation in Creatinine Baseline creat is around 2.4 Dr Escalante is her home senior director Agitation requiring sedation protocol 02/14/2019 02/23/2019 Acute [...] she had reactions to (?). Per OSH senior director's note in Care Everywhere, pt tried metoprolol [...] 0.6 oz pur e alcohol) occasional [facility] Utilities Answer Date Recorded In the past 12 months has [employer], [employer], or [employer] threatened to shut off services in your home? Patient declined 05/10/2025 Social Connection and Isolation Panel [NHANES] A nswer Date Recorded In a typical week, how many times do you talk on the phone with family, friends, or neighbors? Patient declined 05/10/2025 How often do you get togethe r with friends or relatives? Patient declined 05/10/2025 How often do you attend protestant or baptism serv ices? 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 Collagen Right: Femoral Ter[employer]o [employer] Pam 09/19/2022 [id number] / [id number] / [id number] Ter[employer] Pam Angio-Seal Vip 6fr Closere Device [id number] - [id number] - [id number] Implanted:Qty: 1 on 07/24/2022 by Luca Lott MD at [facility] Collagen [employer] Pam 03/20/2023 [id number] / [id number] / [id number] [employer] Pam Angio-Seal Vip 6fr Closere Device 625399 - [id number] - [id number] Implanted:Qty: 1 on 05/21/[address] [facility] Collagen Right: Common Femoral Artery [employer] Pam 01/09/2025 [id number] / [id number] / [id number] [employer] Pam Angio-Seal Vip Bondek-Plus 8fr .038in 70cm Hemostatic Latex Free 277334 - [id number] - [id number] Implanted:Qty: 1 on 05/21/2024 by Felipe Gerber MD at [facility] Collagen Right: Common Femoral Artery [employer] Pam 01/06/2025 862863 / [id number] / [id number] [employer] Pam Angio-Seal Vip 6fr Closere Device 516216 - [id number] - [id number] Implanted:Qty: 1 on 02/23/2025 by Luca Lott MD at [facility] Collagen [employer] Pam 06/15/2025 [id number] / [id number] / [id number] Medtronic Cardiac Rhythm Mgmt 5076-52 Capsurefix Novus 6.2fr 2mm 52cm Bipolar Screw In Implantable Latex Free - [id number] - [id number] Implanted:Qty: 1 on 05/15/[address] Ramos MD PhD at [facility] Lead Medtronic Inc 03/11/2021 5076-52 / [id number] / Medtronic Cardiac Rhythm Mgmt 5076-45 Capsurefix Novus 6.2fr 2mm 45cm Bipolar Screw In Implantable - [id number] - [id number] Implanted:Qty: 1 on 05/15/[address] Ramos MD PhD at [facility] Lead Medtronic Inc 03/30/2021 5076-45 / [id number] / Ganjiwang [facility] [id number] Linear 7.5fr 6in Insertion Kit Line Clearance Foreman Introducer Sheath - [id number] Implanted:Qty: 1 on 02/10/2019 by Luca Lott MD at [facility] Other - see comments [employer] 0684-00 -0480-0 / / Description:IABP Medtronic Inc [id number] [place] Curl Cath Beta-Cap Holden 15fr 57cm 2 Cuff Clamp Adapter - S0 - [id number] Implanted:Qty: 1 on 11/21/2021 by Carlos Kamara MD at [facility] Other - see comments N/A: Abdomen Medtronic Inc 11/30/2022 8811-31 3015 / 0 / [id number] Medtronic Cardiac Rhythm Mgmt W1dr01 Tereza Wirelessly Pacemaker Cardiac - [id number] - [id number] Implanted:Qty: 1 on 05/15/[address] Ramos MD PhD at [facility] Pacemaker Medtronic Inc [id number] 09/17/2020 W1DR01 / [id number] / Jamil [employer] Valve Aortic Trnscath Brown 3 Ultra Resilia 20mm 0969yak75q - [id number] - [id number] Implanted:Qty: 1 on 05/21/2024 by Felipe Gerber MD at [facility] Prosthetic Valve N/A: Aortic Valve [employer] 02/27/2027 [id number] 20A / [id number] / Medtronic Inc Resolute Astor 4mm 2.1-2.7fr 12mm 140cm Rapid Exchange Radiopaque [id number] - [id number] - [id number] Implanted:Qty: 1 on 03/09/2022 by Luca Lott MD at [facility] Stent Left: Coronary Medtronic Inc 12/06/2022 [id number] 012UX / [id number] / [id number] Description:LAD [employer]ot[employer] Inc Stent Coronary De Rx Cocr Ors Msn 4.0x15mm 601255 - [id number] - [id number] Implanted:Qty: 1 on 07/24/2022 by Luca Lott MD at [facility] Stent [employer]ot[employer] Inc 09/05/2023 192825 / [id number] / [id number] Medtronic Card Vasc Surgery 4.0 X 15mm Clive [place] Rx Coronary Stent [id number] - [id number] - [id number] Implanted:Qty: 1 on 11/19/2024 by Luca Lott MD at [facility] Stent N/A: Saphenous Vein Graft Medtronic Card Vasc Surgery 05/05/2027 [id number] / [id number] [id number] / [id number] Medtronic Card Vasc Surgery 2.50 X 12mm Clive [place] Rx Coronary Stent [id number] - [id number] - [id number] Implanted:Qty: 1 on 12/25/2024 by Luca Lott MD at [facility] Stent Medtronic Card Vasc Surgery 06/03/2027 [id number] [id number] / [id number] / [id number] Pepin [employer] Pam Synergy Xd Monorail 3mm 20mm 144cm Delivery System 1 Access Port [id number] - [id number] - [id number] Implanted:Qty: 1 on 02/23/2025 by Luca Lott MD at [facility] Stent [employer]in [employer] Pam 06/08/2026 [id number] / [id number] 0 / [id number] Painter Vascular System Closure Repair Femoral Artery Suture Mediated Perclose Prostyle 75507-94 - [id number] - [id number] Implanted:Qty: 1 on 05/21/2024 by Felipe Gerber MD at [facility] Vascular Closure Device Left: Common Femoral Artery Painter Vascular 02/17/2026 95374-0 3 / [id number] / [id number] Ter[employer] Pam Angio-Seal Vip 6fr Closere Device 477776 - [id number] - [id number] Implanted:Qty: 1 on 11/19/2024 by Luca Lott MD at [facility] Vascular Closure Device N/A: Saphenous Vein Graft [employer] Pam 04/29/2025 752946 / [id number] / [id number] Ter[employer]o Medical Pam Angio-Seal Vip 6fr Closere Device 755545 - [id number] - [id number] Implanted:Qty: 1 on 12/25/2024 by Sanket Quiroz MD at [facility] Vascular Closure Device Right: Common Femoral Artery [employer] Pam 06/30/2025 811397 / [id number] / [id number] Description:RFA [employer] Pam Angio-Seal Vip Bondek-Plus 8fr .038in 70cm Hemostatic Latex Free 950411 - [id number] - [id number] Implanted:Qty: 1 on 12/25/2024 by Sanket Quiroz MD at [facility] Vascular Closure Device Right: Femoral Vein [employer] Pam 07/21/2025 706873 / [id number] / [id number] Description:RFV [employer] Pam Angio-Seal Vip 6fr Closere Device 922890 - [id number] - [id number] Implanted:Qty: 1 on 05/11/2025 by Rio Jacobs MD at [facility] Vascular Closure Device Right: Common Femoral Artery [employer] Pam 12/31/2025 437706 / [id number] / [id number] [employer] Pam [id number] Supple Ronna-Guard [place] Processing 4x4cm Patch Cardiovascular - [id number] - [id number] Implanted:Qty: 1 on 02/11/2019 by Christopher Holman MD at [facility] N/A: Chest [employer] Pam 06/03/2023 [id number] / [id number] 04-0010 / [id number] Jamil [employer] [id number] Certitude Brown 3 Atrion 18fr Transcatheter Introducer Crimper - [id number] - [id number] Implanted:Qty: 1 on 02/11/2019 by Christopher Holman MD at [facility] N/A: Heart Jamil [employer] [id number] [id number] / [id number] / Medtronic Inc [id number] [place] Curl Cath Beta-Cap Holden 15fr 57cm 2 Cuff Clamp Adapter - [id number] Implanted:Qty: 1 on 12/27/2021 by Margarita Montoya [...] 4:14 PM CDT Coronary artery disease involving [place] coronary artery of [place] heart without angina pectoris POCT ACTIVATED CLOTTING [...] eGFR (05/11/2025 6:30 PM CDT) Pathologist [facility] eGFR 3(L) >=60 mL/min/1. 73 m2 Comment: [...] MD LAB BLOOD ORDERABLES Final R esult [facility] Department [place] [address] * Differential, auto (05/11/2025 6:30 PM CDT) Neutrophil abs 4.30 1.50 - 6.50 K/cumm Comment:Collection date/time has been modified to: 18:30:00. Previous collection date/time: 17:32:00. Imm gran abs 0.02 0.00 - 0.10 K/cumm [facility] Comment:Collection date/time has been modified to: 18:30:00. Previous collection date/time: 17:32:00. Lymphocyte abs 0.83 0.80 - 3.30 K/cumm [facility] Comment:Collection date/time has been modified to: 18:30:00. Previous collection date/time: 17:32:00. Monocyte abs 0.28 0.20 - 0.80 K/cumm [facility] Comment:Collection date/time has been modified to: 18:30:00. Previous collection date/time: 17:32:00. Eosinophil abs 0.19 0.00 - 0.50 K/cumm [facility] Comment:Collection date/time has been modified to: 18:30:00. Previous collection date/time: 17:32:00. Basophil abs 0.02 0.00 - 0.10 K[facility] Comment:Collection date/time has been modified to: 18:30:00. Previous collection date/time: 17:32:00. Neutrophil pct 76.1 % [facility] Comment: Collection date/time has been modified to: 18:30:00. Previous collection date/time: 17:32:00. Interpretive Data Percent cell count reference ranges are not reported, since discordance with absolute values may lead to misinterpretation of CBC data. Current Interpretive Data was last revised on 2018. Imm gran pct 0.4 % [facility] Comment: Collection date/time has been modified to: 18:30:00. Previous collection date/time: 17:32:00. Interpretive Data Percent cell count reference ranges are not reported, since discordance with absolute values may lead to misinterpretation of CBC data. Current Interpretive Data was last revised on 2018. Lymphocyte pct 14.7 % [facility] Comment: Collection date/time has been modified to: 18:30:00. Previous collection date/time: 17:32:00. Interpretive Data Percent cell count reference ranges are not reported, since discordance with absolute values may lead to misinterpretation of CBC data. Current Interpretive Data was last revised on 2018. Monocyte pct 5.0 % [facility] Comment: Collection date/time has been modified to: 18:30:00. Previous collection date/time: 17:32:00. Interpretive Data Percent cell count reference ranges are not reported, since discordance with absolute values may lead to misinterpretation of CBC data. Current Interpretive Data was last revised on 2018. Eosinophil pct 3.4 % [facility] Comment: Collection date/time has been modified to: 18:30:00. Previous collection date/time: 17:32:00. Interpretive Data Percent cell count reference ranges are not reported, since discordance with absolute values may lead to misinterpretation of CBC data. Current Interpretive Data was last revised on 2018. Basophil pct 0.4 % [facility] Comment: Collection date/time has been modified to: 18:30:00. Previous collection date/time: 17:32:00. Interpretive Data Percent cell count reference ranges are not reported, since discordance with absolute values may lead to misinterpretation of CBC data. Current Interpretive Data was last revised on 2018. Blood 05/11/2025 6:30 PM CDT 05/11/2025 6:39 PM CDT Luca Lott MD LAB BLOOD ORDERABLES Edited Result - Final [facility] Department [place] [address] * (ABNORMAL) CBC with auto differential (05/11/2025 6:30 PM CDT) WBC 5.64 3.80 - 9.90 K/cumm Comment:Collection date/time has been modified to: 18:30:00. Previous collection date/time: 17:32:00. Hgb 11.5(L) 11.9 - 15.5 g/dL [facility] Comment:Collection date/time has been modified to: 18:30:00. Previous collection date/time: 17:32:00. Hct 36.8 35.6 - 45.5 % [facility] Comment:Collection date/time has been modified to: 18:30:00. Previous collection date/time: 17:32:00. Plt 158 150 - 400 K/cumm [facility] Comment:Collection date/time has been modified to: 18:30:00. Previous collection date/time: 17:32:00. MPV 10.7 9.1 - 12.3 fL [facility] Comment:Collection date/time has been modified to: 18:30:00. Previous collection date/time: 17:32:00. RBC 3.94 3.90 - 5.20 M/cumm [facility] Comment:Collection date/time has been modified to: 18:30:00. Previous collection date/time: 17:32:00. MCV 93.4 81.3 - 96.[address] [facility] Comment:Collection date/time has been modified to: 18:30:00. Previous collection date/time: 17:32:00. MCH 29.2 27.1 - 33.[address] [facility] Comment:Collection date/time has been modified to: 18:30:00. Previous collection date/time: 17:32:00. MCHC 31.3(L) 32.3 - 35.7 g/dL [facility] Comment:Collection date/time has been modified to: 18:30:00. Previous collection date/time: 17:32:00. RDW CV 16.3(H) 11.1 - 14.9 % [facility] Comment:Collection date/time has been modified to: 18:30:00. Previous collection date/time: 17:32:00. RDW SD 55.2(H) 35.7 - 48.[address] [facility] Comment:Collection date/time has been modified to: 18:30:00. Previous collection date/time: 17:32:00. NRBC abs 0.00 0.00 - 0.01 K/cumm [facility] Comment:Collection date/time has been modified to: 18:30:00. Previous collection date/time: 17:32:00. Blood 05/11/2025 6:30 PM CDT 05/11/2025 6:39 PM CDT Luca Lott MD LAB BLOOD ORDERABLES Edited Result - Final [facility] Department [place] [address] * (ABNORMAL) Basic metabolic panel (05/11/2025 6:30 PM CDT) Sodium 134(L) 135 - 145 mmol/L Potassium, pl 5.4(H) 3.3 - 4.9 mmol/L [facility] Chloride 96(L) 97 - 110 mmol/L [facility] CO2 26 22 - 32 mmol/L [facility] Anion gap 12 2 - 15 mmol/L [facility] BUN 57(H) 6 - 25 mg/dL [facility] Creatinine 13.94(H) 0.60 - 1.10 mg/dL [facility] Glucose 114 70 - 199 mg/dL [facility] Comment: Interpretive Data Fasting glucose >/= [...] 2022. Calcium 8.3(L) 8.5 - 10.3 mg/dL [facility] Blood 05/11/2025 6:30 PM CDT 05/11/2025 6:39 PM CDT Luca Lott MD LAB BLOOD ORDERABLES Final R esult Performing Organization Address City/[facility]/ZIP Co de Phone Number [facility] Department [place] [address] * LEFT HEART CATHETERIZATION WITH CORONARY ANGIOGRAPHY [...] 54 y.o. female : 1970 MR number: [id number] Date of Service: 05/11/2025 Consultants Intern: Luca Lott MD Fellow: Rio Jacobs MD [...] obtained. The patient was brought to the poultry hatchery laborer and placed on the table Bilateral [...] coronary artery angiogram performed using a 6 Kuwaiti JL 3 guide Percutaneous coronary intervention performed on the Proximal vein graft to the LAD. This was an ACC/AHA Type C. Initial Lesion Length 12mm and final lesion Length 12mm. Initial KAROLINA Flow 3 Final KAROLINA Flow 3. Equipment used: 6 3D RC [place] IVUS Catheter, Registered Dental Assistant Rda 50 wire, 0.9 mm laser atherectomy catheter [...] got the guide to sit and a Registered Dental Assistant Rda 50 wire down into the LAD. Next [...] 284(H) 123 - 168 sec POC Performer [id number] [facility] POC Device Number [id number] [facility] Blood 05/11/2025 4:12 PM CDT 05/11/2025 4:12 PM CDT Luca Lott MD LAB POCT ORDERABLES - DEVICE Final Result Performing Organization Address [facility]/ZIP Co de Phone Number [facility] Department [place] [address] * (ABNORMAL) POCT Activated clotting time, low range (05/11/2025 3:50 PM CDT) [facility] ACT 290(H) 123 - 168 sec POC Performer [id number] [facility] POC Device Number [id number] [facility] Blood 05/11/2025 3:50 PM CDT 05/11/2025 3:50 PM CDT Luca Lott MD LAB POCT ORDERABLES - DEVICE Final Result Performing Organization Address [facility] Co de Phone Number [facility] Department [place] [address] * (ABNORMAL) Potassium, whole blood (05/11/2025 12:00 PM CDT) [facility] Potassium, bld 5.0(H) 3.3 - 4.9 mmol/L Blood 05/11/2025 12:0 0 PM CDT 05/11/2025 12:12 PM CDT us Kasi Garcia TRAUMA MANAGER LAB BLOOD ORDERABLES F inal Result Performing Organization Address [facility] Co de Phone Number [facility] of Laboratories [place], [place] [id number] * (ABNORMAL) POC Blood Gas and Chemistries, Arterial - (05/11/2025 11:46 AM CDT) [facility] K POC 5.5(H) 3.3 - 4.9 mmol/L [...] - DEVICE Final Result Performing Organization Address [facility] de Phone Number [facility] [place] [address] * TRANSTHORACIC ECHO (TTE) COMPLETE W DOPPLER/CF W CONTRAST (05/07/2025 10:16 AM CDT) [facility] Estimated EF 55-60 % CONS SCIMAGE Anatomical Region Laterality Modality Ultrasound 05/06/2025 3:39 PM CDT Narrative 05/06/2025 6:28 PM CDT [facility] [place] [address] Transthoracic Echocardiographic Report Patient Name: ESTUARDO COPELAND M : 1970 (54y 5m) Gender: F Study Date: 05/06/2025 03:39:15 PM Ht(Inch): 64 Wt(Lb): 132.94 BSA: 1.65 Senior Consulting Manager: Brad Tripathi RDCS Location: [id number] Order Provider: ASHLEY CHAHAL Heart Rate: 65 [...] Procedure Note Job Gordon MD - 05/06/2025 [facility] [place] [address] Transthoracic Echocardiographic Report Patient Name: ESTUARDO COPELAND M : 1970 (54y 5m) Gender: F Study Date: 05/06/2025 03:39:15 PM Ht(Inch): 64 Wt(Lb): 132.94 BSA: 1.65 Senior Consulting Manager: Brad Tripathi RDCS Location: [id number] Order Provider: ASHLEY CHAHAL Heart Rate: 65 [...] cm/m2 [ 1.00 - 2.00 ] MV RDE437.27 msec [ 20.00 - 100.00 ] Asc Ao Diam 2D 1.63 cm MVA PHT2.11 cm2 Asc Ao Index 0.99 cm/m2 MV Decel Sidv143.23 msec [ 104.00 - 258.00 ] Med [...] ORDERAB LES Final Result Performing Organization Address City/[facility]/ZIP Co de Phone Number [facility] Department [place] [address] * (ABNORMAL) Vitamin D 25 hydroxy (05/07/2025 6:17 AM CDT) Pathologist [facility] Vitamin D 25-OH 22(L) 30 - 80 ng/mL Blood 05/07/2025 6:17 AM CDT 05/07/2025 6:55 AM CDT Ashley Chahal MD LAB BLOOD ORDERAB LES Final Result [facility] Department [place] [address] * (ABNORMAL) CBC without differential (05/07/2025 6:17 AM CDT) [facility] WBC 6.90 3.80 - 9.90 K/cumm Hgb 12.4 11.9 - 15.5 g/dL [facility] Hct 39.1 35.6 - 45.5 % [facility] Plt 157 150 - 400 K/cumm [facility] MPV 10.4 9.1 - 12.3 fL [facility] RBC 4.19 3.90 - 5.20 M/cumm [facility] MCV 93.3 81.3 - 96.4 fL [facility] MCH 29.6 27.1 - 33.3 pg [facility] MCHC 31.7(L) 32.3 - 35.7 g/dL [facility] RDW CV 16.6(H) 11.1 - 14.9 % [facility] RDW SD 56.4(H) 35.7 - 48.1 fL [facility] NRBC abs 0.00 0.00 - 0.01 K/cumm [facility] Blood 05/07/2025 6:17 AM CDT 05/07/2025 6:55 AM CDT us Ashley Chahal MD LAB BLOOD ORDERAB LES Final Result Performing Organization Address City/[facility]/ZIP Co de Phone Number [facility] Department [place] [address] * (ABNORMAL) PTH (05/07/2025 6:17 AM CDT) [facility] PTH 9(L) 15 - 65 pg/mL Blood 05/07/2025 6:17 AM CDT 05/07/2025 6:55 AM CDT us Ashley Chahal MD LAB BLOOD ORDERAB LES Final Result [facility] Department [place] [address] * (ABNORMAL) Renal function panel (05/07/2025 6:17 AM CDT) [facility] Sodium 136 135 - 145 mmol/L Potassium, pl 5.1(H) 3.3 - 4.9 mmol/L [facility] Chloride 96(L) 97 - 110 mmol/L [facility] CO2 27 22 - 32 mmol/L [facility] Anion gap 13 2 - 15 mmol/L [facility] BUN 52(H) 6 - 25 mg/dL [facility] Creatinine 14.17(H) 0.60 - 1.10 mg/dL [facility] Glucose 86 70 - 199 mg/dL [facility] Comment: Interpretive Data Fasting glucose >/= [...] 2022. Calcium 8.8 8.5 - 10.3 mg/dL [facility] Phosphorus, pl 9.9(H) 2.3 - 4.5 mg/dL [facility] Albumin 2.8(L) 3.5 - 5.0 g/dL [facility] Blood 05/07/2025 6:17 AM CDT 05/07/2025 6:55 AM CDT Ashley Chahal MD LAB BLOOD ORDERAB LES Final Result [facility] Department [place] [address] * Cortisol (05/06/2025 8:36 AM CDT) Cortisol 11.7 4.8 - 19.5 mcg/dL Comment: Interpretive Data: Morning hours 6-10 a.m. 4.8 - 19.5 mcg/dL Afternoon hours 4-8 p.m. 2.5 - 11.9 mcg/dL This analyte undergoes marked diurnal variation. Current interpretive data was last revised 24. Blood 05/06/2025 8:36 AM CDT 05/06/2025 9:27 AM CDT Ashley Chahal MD LAB BLOOD ORDERAB LES Final Result [facility] [place] [address] * (ABNORMAL) eGFR (05/06/2025 3:41 AM CDT) [...] BLOOD ORDERAB LES Final Result [facility] Department [place] [address] * (ABNORMAL) Magnesium (05/06/2025 3:41 AM CDT) Magnesium 2.7(H) 1.4 - 2.5 mg/dL Blood 05/06/2025 3:41 AM CDT 05/06/2025 4:14 AM CDT us Ashley Chahal MD LAB BLOOD ORDERAB LES Final Result [facility] Department [place] [address] * (ABNORMAL) Renal function panel (05/06/2025 3:41 AM CDT) Sodium 136 135 - 145 mmol/L Potassium, pl 4.9 3.3 - 4.9 mmol/L [facility] Chloride 97 97 - 110 mmol/L [facility] CO2 25 22 - 32 mmol/L [facility] Anion gap 14 2 - 15 mmol/L [facility] BUN 56(H) 6 - 25 mg/dL [facility] Creatinine 14.58(H) 0.60 - 1.10 mg/dL [facility] Glucose 107 70 - 199 mg/dL [facility] Comment: Interpretive Data Fasting glucose >/= [...] 2022. Calcium 9.0 8.5 - 10.3 mg/dL [facility] Phosphorus, pl 10.0(H) 2.3 - 4.5 mg/dL [facility] Albumin 2.7(L) 3.5 - 5.0 g/dL [facility] Blood 05/06/2025 3:41 AM CDT 05/06/2025 4:14 AM CDT us Ashley Chahal MD LAB BLOOD ORDERAB LES Final Result [facility] Department [place] [address] * (ABNORMAL) Troponin I high-sensitivity 6-hour (05/05/2025 11:37 AM CDT) Trop I hs 172(H) <=17 ng/L Comment: Previous critical value noted within 48 hours ago. Interpretive Data For further hscTnI resources including the diagnostic algorithm and an aid in interpretation, copy and paste this link: https://ScriptPad.Plaxica.org/show/hsTrop-1 Current Interpretive Data last revised 2020. Trop I hs pct delta -11 % [facility] Trop I hs interp Equivocal [facility] Blood 05/05/2025 11:3 7 AM CDT 05/05/2025 12:24 PM CDT Jacqueline Jules MD LAB BLOOD ORDER WESTON Final Result Performing Organization Address [facility] de Phone Number [facility] Department [place] [address] * (ABNORMAL) Troponin I high-sensitivity 4-hour (05/05/2025 9:06 AM CDT) Trop I hs 189(H) <=17 ng/L Comment: Interpretive Data For further hscTnI resources including the diagnostic algorithm and an aid in interpretation, copy and paste this link: https://ScriptPad.Plaxica.org/show/hsTrop-1 Current Interpretive Data last revised 2020. Trop I hs pct delta -3 % [facility] Trop I hs interp Insignificant [facility] Blood 05/05/2025 9:06 AM CDT 05/05/2025 9:54 AM CDT Jacqueline Jules MD LAB BLOOD ORDER WESTON Final Result Performing Organization Address [facility] [place] [address] * (ABNORMAL) Troponin I high-sensitivity 2-hour (05/05/2025 6:36 AM CDT) Trop I hs 192(H) <=17 ng/L Comment: Interpretive Data For further hscTnI resources including the diagnostic algorithm and an aid in interpretation, copy and paste this link: https://Hands-On Mobilehlab.Plaxica.org/show/hsTrop-1 Current Interpretive Data last revised 2020. Trop I hs pct delta -1 % [facility] Trop I hs interp Insignificant [facility] Blood 05/05/2025 6:36 AM CDT 05/05/2025 8:08 AM CDT Jacqueline Jules MD LAB BLOOD ORDER WESTON Final Result Performing Organization Address [facility] [place] [address] * (ABNORMAL) Troponin I high-sensitivity series (baseline, 2hr, 4hr, 6hr) (05/05/2025 4:48 AM CDT) Pathologist [facility] Trop I hs 194(H) <=17 ng/L Comment: Interpretive Data For further hscTnI resources including the diagnostic algorithm and an aid in interpretation, copy and paste this link: https://Ecohausab.Plaxica.org/show/hsTrop-1 Current Interpretive Data last revised 2020. Blood 05/05/2025 4:48 AM CDT 05/05/2025 5:03 AM CDT Jacqueline Jules MD LAB BLOOD ORDER WESTON Final Result Performing Organization Address City/[facility] [place] [address] * (ABNORMAL) eGFR (05/05/2025 4:48 AM CDT) [...] 4:48 AM CDT 05/05/2025 5:03 AM CDT [facility] Lacey Jules MD LAB BLOOD ORDER WESTON Final Result [facility] Department [place] [address] * (ABNORMAL) Pro B-type natriuretic peptide (05/05/2025 [...] LAB BLOOD ORDER WESTON Final Result [facility] Department [place] [address] * (ABNORMAL) Thyroid Function [place] (05/05/2025 4:48 AM CDT) TSH 14.50(H) 0.30 - 4.20 mcIUnit/mL Blood 05/05/2025 4:48 AM CDT 05/05/2025 5:03 AM CDT Jacqueline Jules MD LAB BLOOD ORDER WESTON Final Result [facility] Department [place] [address] * Protime-INR (05/05/2025 4:48 AM CDT) Pathologist [facility] PT 12.4 9.7 - 13.0 sec INR 1.14 0.90 - 1.20 [facility] Comment: Interpretive data Oral anticoagulant therapeutic ranges: Venous thromboembolism prophylaxis or treatment: 2.0-3.0 CARDIOLOGY Standard range: 2.0-3.0 High-intensity range: 2.5-3.5 Refer to indication-specific guidelines for appropriate target ranges for prosthetic heart valve replacement. Current interpretive data was last revised on 2019. Blood 05/05/2025 4:48 AM CDT 05/05/2025 5:13 AM CDT Narrative [facility] - 05/05/2025 5:19 AM CDT Baseline prior to apixaban initiation. Jacqueline Jules MD LAB BLOOD ORDER WESTON Final Result [facility] Department [place] [address] * (ABNORMAL) CBC without differential (05/05/2025 4:48 AM CDT) [facility] WBC 5.83 3.80 - 9.90 K/cumm Hgb 11.8(L) 11.9 - 15.5 g/dL [facility] Hct 37.7 35.6 - 45.5 % [facility] Plt 131(L) 150 - 400 K/cumm [facility] MPV 10.9 9.1 - 12.3 fL [facility] RBC 4.00 3.90 - 5.20 M/cumm [facility] MCV 94.3 81.3 - 96.4 fL [facility] MCH 29.5 27.1 - 33.3 pg [facility] MCHC 31.3(L) 32.3 - 35.7 g/dL [facility] RDW CV 16.8(H) 11.1 - 14.9 % [facility] RDW SD 56.8(H) 35.7 - 48.1 fL [facility] NRBC abs 0.00 0.00 - 0.01 K/cumm [facility] Blood 05/05/2025 4:48 AM CDT 05/05/2025 5:04 AM CDT Jacqueline Jules MD LAB BLOOD ORDER WESTON Final Result Performing Organization Address City/[facility] Co de Phone Number [facility] [place] [address] * (ABNORMAL) T4, free (05/05/2025 4:48 AM CDT) Free T4 0.70(L) 0.90 - 1.70 ng/dL Blood 05/05/2025 4:48 AM CDT 05/05/2025 5:03 AM CDT Narrative [facility] - 05/05/2025 6:23 AM CDT This test was reflexed from a TSH result. Jacqueline Jules MD LAB BLOOD ORDER WEST[place] Edited Result - Final Performing Organization Address [facility] [place] [address] * (ABNORMAL) Phosphorus (05/05/2025 4:48 AM CDT) Phosphorus, pl 11.7(H) 2.3 - 4.5 mg/dL Blood 05/05/2025 4:48 AM CDT 05/05/2025 5:03 AM CDT Jacqueline Jules MD LAB BLOOD ORDER WESTON Final Result Performing Organization Address City/[facility] Co de Phone Number [place], [place] [id number] * (ABNORMAL) Magnesium (05/05/2025 4:48 AM CDT) Magnesium 2.9(H) 1.4 - 2.5 mg/dL Blood 05/05/2025 4:48 AM CDT 05/05/2025 5:03 AM CDT Jacqueline Jules MD LAB BLOOD ORDER WESTON Final Result Performing Organization Address City/[facility]/ZIP Co de Phone Number [facility] [place] [address] * Bilirubin, direct (05/05/2025 4:48 AM CDT) [facility] Bilirubin, direct <0.2 0.1 - 0.3 mg/dL Blood 05/05/2025 4:48 AM CDT 05/05/2025 5:03 AM CDT Jacqueline Jules MD LAB BLOOD ORDER WEST[place] Final Result Performing Organization Address [facility] de Phone Number [facility] [place] [address] * (ABNORMAL) Comprehensive metabolic panel (05/05/2025 4:48 AM CDT) [facility] Sodium 140 135 - 145 mmol/L Potassium, pl 5.1(H) 3.3 - 4.9 mmol/L [facility] Chloride 100 97 - 110 mmol/L [facility] CO2 24 22 - 32 mmol/L [facility] Anion gap 16(H) 2 - 15 mmol/L [facility] BUN 60(H) 6 - 25 mg/dL [facility] Creatinine 14.48(H) 0.60 - 1.10 mg/dL [facility] Glucose 91 70 - 199 mg/dL [facility] Comment: Interpretive Data Fasting glucose >/= [...] Calcium 9.5 8.5 - 10.3 mg/dL [facility] Bilirubin, total 0.2 0.1 - 1.2 mg/dL [facility] Protein, pl 5.6(L) 6.5 - 8.5 g/dL [facility] Albumin 2.8(L) 3.5 - 5.0 g/dL [facility] Alk phos 71 40 - 130 Units/L [facility] ALT 9 7 - 45 Units/L [facility] AST 16 10 - 45 Units/L [facility] Blood 05/05/2025 4:48 AM CDT 05/05/2025 5:03 AM CDT [facility] Lacey Jules MD LAB BLOOD ORDER WESTON Final Result [facility] Department [place] [address] * XR Chest 1 View (05/04/2025 11:16 [...] CDT) Ventricular Rate EKG/Min [address] [facility] Atrial Rate 82 BPM [facility] MS-Interval (MSEC) 160 ms [facility] QRS-Interval (MSEC) [address] [facility] QT-Interval (MSEC) 368 ms [facility] QTc 429 ms [facility] P [place] -16 degrees [facility] R [place] -27 degrees [facility] T [place] 134 degrees [facility] Diagnosis Atrial-paced rhythm Minimal voltage criteria for LVH, may be normal variant ( Oliverio product ) Septal infarct (cited on or before 20-FEB-2025) T wave abnormality, consider lateral ischemia Abnormal ECG When compared with ECG of 22-FEB-2025 09:14, Electronic atrial pacemaker has replaced Sinus rhythm Confirmed by HARJINDER HANDY M.D ([id number]) on 05/05/2025 2:09:39 PM [facility] 05/04/2025 8:59 PM CDT 05/05/2025 2:09 PM CDT Jacqueline Jules MD ECG ORDERABLES Final Result [facility] * Cardiology Document Scan (04/24/2025 3:35 PM [...] appropriate. No short V-V intervals. Presenting Rhythm (MS) Atrial Sensing-Ventricular Sensing (-VS) --- /VS (SR) [...] andappropriate. No short V-V intervals. Presenting Rhythm (MS) Atrial Sensing-Ventricular Sensing (-VS) --- /VS (SR) [...] Tech: Location: [facility] Order Provider: LUCA LOTT BMI: Ref Provider: LUCA LOTT PROCEDURES: Holter Report: EXTENDED/NURSING HOME HOLTER PATCH (>48 HOURS UP TO 7 DAYS) [[id number]]. Enrollment Period: 2025-04-27 00:00:00 through 2025-04-29 00:00:00. Location: [facility]. INDICATIONS: R00.2 Palpitations. FINDINGS: Holter Data: Min [...] events Runs (VT): 6 events Total beats: 77785 SIGNIFICANT PAUSES: 0 >3 sec Protocol: Recording Duration (Ordered): [id number] Recording Duration (Actual): 42516.3 SUMMARY: *The predominant rhythm was Sinus with [...] Tech: Location: [facility] Order Provider: LUCA LOTT BMI: Ref Provider: LUCA LOTT PROCEDURES: Holter Report: EXTENDED/NURSING HOME HOLTER PATCH (>48 HOURS UP TO 7 DAYS)[[id number]]. Enrollment Period: 2025-04-27 00:00:00 through 2025-04-29 00:00:00. Location: [facility]. INDICATIONS: R00.2 Palpitations. FINDINGS: Holter Data: Min [...] events Runs (VT): 6 events Total beats: 17378 SIGNIFICANT PAUSES: 0 >3 sec Protocol: Recording Duration (Ordered): [id number] Recording Duration (Actual): 80487.3 SUMMARY: *The predominant rhythm was Sinus with [...] 10:0 0 AM CDT Narrative [facility] Sample received in lab. Single Antigen Antibody [...] a method developed and validated by the [facility] laboratory based on an FDA-approved IVD kit (LABScreen Single-Antigen, [employer], [place], [place]). All patient serum samples are pretreated with EDTA before the screen to prevent complement interference. Additional serum treatments, such as adsorption and DTT treatment, may be performed as indicated. Interpretive comments: Low risk: MFI [id number]. Moderate risk: MFI 3498-1002. Increased risk: MFI >/= 5000. The presence [...] antigens to avoid. Testing performed at the [facility], [address] [place] [address], 5th floor, [place], [address]. IA # [id number]. Rosa Millan, Ph.D., Candlemaker, [facility] Laboratory Wilmer Prescott M.D., Ph.D., Excellence Specialist, [facility] Alma Payton, Ph.D., CLIA Excellence Specialist, [facility] Current methodology and interpretive comments last revised on 11/15/2022. us Salina Hector MD LAB BLOOD ORDERABLES Final Resul t [facility] * HLA Antibody Screen by PRA or SAB per Schedule (Class I and Class II) (03/01/2025 10:00 AM CDT) Blood 03/01/2025 10:0 0 AM CDT Narrative [facility] Sample received in lab and stored. No testing performed at this time. us Salina Hector MD LAB BLOOD ORDERABLES Final Resul t Performing Organization Address City/[facility] Co de Phone Number [facility] [...] BLOOD ORDERABLES Final Result [facility] Department [place] [address] * (ABNORMAL) Differential, auto (02/24/2025 9:50 AM CDT) Neutrophil abs 4.72 1.50 - 6.50 K/cumm Imm gran abs 0.02 0.00 - 0.10 K/cumm [facility] Lymphocyte abs 0.73(L) 0.80 - 3.30 K/cumm [facility] Monocyte abs 0.42 0.20 - 0.80 K/cumm [facility] Eosinophil abs 0.21 0.00 - 0.50 K/cumm [facility] Basophil abs 0.04 0.00 - 0.10 K/cumm [facility] Neutrophil pct 76.9 % [facility] Comment: Interpretive Data Percent cell count reference ranges are not reported, since discordance with absolute values may lead to misinterpretation of CBC data. Current Interpretive Data was last revised on 2018. Imm gran pct 0.3 % [facility] Comment: Interpretive Data Percent cell count reference ranges are not reported, since discordance with absolute values may lead to misinterpretation of CBC data. Current Interpretive Data was last revised on 2018. Lymphocyte pct 11.9 % [facility] Comment: Interpretive Data Percent cell count reference ranges are not reported, since discordance with absolute values may lead to misinterpretation of CBC data. Current Interpretive Data was last revised on 2018. Monocyte pct 6.8 % [facility] Comment: Interpretive Data Percent cell count reference ranges are not reported, since discordance with absolute values may lead to misinterpretation of CBC data. Current Interpretive Data was last revised on 2018. Eosinophil pct 3.4 % [facility] Comment: Interpretive Data Percent cell count reference ranges are not reported, since discordance with absolute values may lead to misinterpretation of CBC data. Current Interpretive Data was last revised on 2018. Basophil pct 0.7 % [facility] Comment: Interpretive Data Percent cell count reference ranges are not reported, since discordance with absolute values may lead to misinterpretation of CBC data. Current Interpretive Data was last revised on 2018. Blood 02/24/2025 9:50 AM CDT 02/24/2025 10:17 AM CDT Dasha Montez DO LAB BLOOD ORDERABLES Final Result [facility] Department [place] [address] * (ABNORMAL) CBC with auto differential (02/24/2025 9:50 AM CDT) [facility] WBC 6.14 3.80 - 9.90 K/cumm Hgb 12.5 11.9 - 15.5 g/dL [facility] Hct 39.5 35.6 - 45.5 % [facility] Plt 177 150 - 400 K/cumm [facility] MPV 10.8 9.1 - 12.3 fL [facility] RBC 4.37 3.90 - 5.20 M/cumm [facility] MCV 90.4 81.3 - 96.4 fL [facility] MCH 28.6 27.1 - 33.3 pg [facility] MCHC 31.6(L) 32.3 - 35.7 g/dL [facility] RDW CV 15.9(H) 11.1 - 14.9 % [facility] RDW SD 51.0(H) 35.7 - 48.1 fL [facility] NRBC abs 0.00 0.00 - 0.01 K/cumm [facility] Blood 02/24/2025 9:50 AM CDT 02/24/2025 10:17 AM CDT Dasha Montez DO LAB BLOOD ORDERABLES Final Result [facility] Department [place] [address] * (ABNORMAL) Basic metabolic panel (02/24/2025 9:50 AM CDT) Pathologist [facility] Sodium 136 135 - 145 mmol/L Potassium, pl 5.0(H) 3.3 - 4.9 mmol/L [facility] Chloride 93(L) 97 - 110 mmol/L [facility] CO2 27 22 - 32 mmol/L [facility] Anion gap 16(H) 2 - 15 mmol/L [facility] BUN 43(H) 6 - 25 mg/dL [facility] Creatinine 11.83(H) 0.60 - 1.10 mg/dL [facility] Glucose 82 70 - 199 mg/dL [facility] Comment: Interpretive Data Fasting glucose >/= [...] 2022. Calcium 7.9(L) 8.5 - 10.3 mg/dL [facility] Blood 02/24/2025 9:50 AM CDT 02/24/2025 10:17 AM CDT Dasha Montez DO LAB BLOOD ORDERABLES Final Result [facility] Department [place] [address] * (ABNORMAL) eGFR (02/23/2025 11:43 PM CDT) [...] BLOOD ORDERABLES Final Result Performing Organization Address [facility]/ZIP Co de Phone Number [facility] Department [place] [address] * VerifyNow clopidogrel (02/23/2025 11:43 PM CDT) [...] ORDERABLES Fin al Result Performing Organization Address City/[facility]/ZIP Co de Phone Number [facility] Department [place] [address] * (ABNORMAL) Phosphorus (02/23/2025 11:43 PM CDT) [facility] Phosphorus, pl 7.6(H) 2.3 - 4.5 mg/dL Blood 02/23/2025 11:4 3 PM CDT 02/24/2025 12:22 AM CDT us Jaimie Giordano MD LAB BLOOD ORDERABLES Final Result [facility] [place] [address] * Magnesium (02/23/2025 11:43 PM CDT) [facility] Magnesium 2.4 1.4 - 2.5 mg/dL Blood 02/23/2025 11:4 3 PM CDT 02/24/2025 12:22 AM CDT us Jaimie Giordano MD LAB BLOOD ORDERABLES Final Result [facility] Department [place] [address] * (ABNORMAL) Basic metabolic panel (02/23/2025 11:43 PM CDT) [facility] Sodium 133(L) 135 - 145 mmol/L Potassium, pl 4.9 3.3 - 4.9 mmol/L [facility] Chloride 95(L) 97 - 110 mmol/L [facility] CO2 27 22 - 32 mmol/L [facility] Anion gap 11 2 - 15 mmol/L [facility] BUN 52(H) 6 - 25 mg/dL [facility] Creatinine 11.94(H) 0.60 - 1.10 mg/dL [facility] Glucose 89 70 - 199 mg/dL [facility] Comment: Interpretive Data Fasting glucose >/= [...] Calcium 8.0(L) 8.5 - 10.3 mg/dL [facility] Blood 02/23/2025 11:4 3 PM CDT 02/24/2025 12:22 AM CDT us Jaimei Giordano MD LAB BLOOD ORDERABLES Final Result [facility] Department [place] [address] * LEFT HEART CATHETERIZATION WITH CORONARY ANGIOGRAPHY [...] 54 y.o. female : 1970 MR number: [id number] Date of Service: 02/23/2025 Consultants Intern: Luca Lott MD Fellow: Sanket Quiroz MD [...] vein graft to her LAD and her [place] left main. She now presents for urgent cardiac catheterization PROCEDURE: The risks, benefits and alternatives of the procedures and moderate sedation were explained to the patient and informed consent was obtained. The patient was brought to the poultry hatchery laborer and placed on the table Bilateral [...] the LAD angiogram performed using a 6 [place] 3D RC Percutaneous coronary intervention performed on theSVG to the Proximal LAD. This was an ACC/AHA Type C. Initial Lesion Length 12mm and final lesion Length 20mm. Initial KAROLINA Flow 3 Final KAROLINA Flow 3. Equipment used: 6 3DRC, [place] IVUS Catheter, Registered Dental Assistant Rda 50 wire, 0.9 mm laser atherectomy catheter [...] it was extremely difficult. We used a Registered Dental Assistant Rda 50 wire with extreme difficulty wire through [...] 319(H) 123 - 168 sec POC Performer [id number] [facility] POC Device Number [id number] [facility] Blood 02/23/2025 1:41 PM CDT 02/23/2025 1:41 PM CDT Ellie Sarkar MD LAB POCT ORDERABLES - DE VICE Final Result Performing Organization Address [facility]/ZIP Co de Phone Number [facility] [place] [employer] [place] [address] * (ABNORMAL) POCT Activated clotting time, low range (02/23/2025 12:35 PM CDT) Pathologist [facility] ACT 351(H) 123 - 168 sec POC Performer [id number] [facility] POC Device Number [id number] [facility] Blood 02/23/2025 12:3 5 PM CDT 02/23/2025 12:35 PM CDT Ellie Sarkar MD LAB POCT ORDERABLES - DE VICE Final Result Performing Organization Address [facility]/ZIP Co de Phone Number [facility] [place] [place] [address] * (ABNORMAL) aPTT (02/23/2025 6:36 AM CDT) [facility] aPTT 80(H) 28 - 38 sec Comment: Interpretive Data Heparin therapeutic range: 66.0 - 100.0 seconds. Range based on correlation with therapeutic heparin activity range of 0.3 - 0.7 Units/mL. Current interpretive data was last revised on 2023. Blood 02/23/2025 6:36 AM CDT 02/23/2025 7:00 AM CDT us Heaven Lerner MD LAB BLOOD ORDERABLES Final Result Performing Organization Address City/[facility]/ZIP Co de Phone Number [facility] [place] [address] * (ABNORMAL) eGFR (02/22/2025 11:07 PM CDT) [...] BLOOD ORDERABLES Final Result Performing Organization Address City/[facility]/ZIP Co de Phone Number [facility] [place] [address] * (ABNORMAL) aPTT (02/22/2025 11:07 PM CDT) [...] ORDERABLES Fin al Result Performing Organization Address [facility] Co de Phone Number [facility] [place] [place] [address] * (ABNORMAL) Phosphorus (02/22/2025 11:07 PM CDT) [facility] Phosphorus, pl 7.2(H) 2.3 - 4.5 mg/dL Blood 02/22/2025 11:0 7 PM CDT 02/22/2025 11:50 PM CDT Jaimie Giordano MD LAB BLOOD ORDERABLES Final Result Performing Organization Address [facility] de Phone Number [facility] [place] [address] * Magnesium (02/22/2025 11:07 PM CDT) [facility] Magnesium 2.5 1.4 - 2.5 mg/dL Blood 02/22/2025 11:0 7 PM CDT 02/22/2025 11:50 PM CDT Jaimie Giordano MD LAB BLOOD ORDERABLES Final Result Performing Organization Address [facility] Co de Phone Number [facility] [employer] [place], [place] [id number] * (ABNORMAL) Basic metabolic panel (02/22/2025 11:07 PM CDT) Sodium 134(L) 135 - 145 mmol/L Potassium, pl 4.5 3.3 - 4.9 mmol/L [facility] Chloride 95(L) 97 - 110 mmol/L [facility] CO2 28 22 - 32 mmol/L [facility] Anion gap 11 2 - 15 mmol/L [facility] BUN 56(H) 6 - 25 mg/dL [facility] Creatinine 11.97(H) 0.60 - 1.10 mg/dL [facility] Glucose 104 70 - 199 mg/dL [facility] Comment: Interpretive Data Fasting glucose >/= [...] 2022. Calcium 7.8(L) 8.5 - 10.3 mg/dL [facility] Blood 02/22/2025 11:0 7 PM CDT 02/22/2025 11:50 PM CDT Jaimie Giordano MD LAB BLOOD ORDERABLES Final Result [facility] Department [place] [address] * (ABNORMAL) aPTT (02/22/2025 2:25 PM CDT) Pathologist [facility] aPTT 54(H) 28 - 38 sec Comment: Interpretive Data Heparin therapeutic range: 66.0 - 100.0 seconds. Range based on correlation with therapeutic heparin activity range of 0.3 - 0.7 Units/mL. Current interpretive data was last revised on 2023. Blood 02/22/2025 2:25 PM CDT 02/22/2025 2:59 PM CDT Dasha Mnotez DO LAB BLOOD ORDERABLES Final Result [facility] Department [place] [address] * TRANSTHORACIC ECHO (TTE) COMPLETE W DOPPLER/CF W CONTRAST (02/22/2025 1:39 PM CDT) EF Mod BP 51 % CONS SCIMAGE Anatomical Region Laterality Modality Ultrasound 02/22/2025 12:3 8 PM CDT Narrative 02/22/2025 2:49 PM CDT [facility] [place] [address] Transthoracic Echocardiographic Report Patient Name: ESTUARDO COPELAND M : 1970 (54y 3m) Gender: F Study Date: 02/22/2025 12:38:48 PM Ht(Inch): 64 Wt(Lb): 123.9 BSA: 1.59 Senior Consulting Manager: Marisol [facility]ciniega RDCS [facility] Location: [id number] Order Provider: ELLIE SARKAR Heart Rate: 75 [...] flow reversal in the hepatic veins. Mild MS. Est. PASP 40-45 mm Hg. 7. Physiologic [...] Procedure Note Rc Koehler MD - 02/22/2025 [facility] [place] [address] Transthoracic Echocardiographic Report Patient Name: ESTUARDO COPELAND M : 1970 (54y 3m) Gender: F Study Date: 02/22/2025 12:38:48 PM Ht(Inch): 64 Wt(Lb): 123.9 BSA: 1.59 Senior Consulting Manager: Marisol Arciniega RDCS, [facility] Location: [id number] OrderProvider: ELLIE SARKAR Heart Rate: 75 BMI: [...] systolic flow reversal in the hepatic veins.Mild MS. Est. PASP 40-45 mm Hg. 7. Physiologic [...] [ 2.70 - 3.70 ] MV Decel [id number] msec [ 104.00 - 258.00 ] Ao [...] AM CDT) Ventricular Rate EKG/Min 80 BPM [facility] Atrial Rate 80 BPM [facility] MS-Interval (MSEC) 96 ms [facility] QRS-Interval (MSEC) 90 ms [facility] QT-Interval (MSEC) 412 ms [facility] QTc 475 ms [facility] P [place] 90 degrees [facility] R [place] -30 degrees [facility] T [place] 133 degrees [facility] Diagnosis Sinus rhythm with sinus arrhythmia with short MS Left axis deviation Left ventricular hypertrophy ( Romhilt-Pierce ) Cannot rule out Septal infarct (cited on 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-FEB-2025) ST & T wave abnormality, consider lateral ischemia Abnormal ECG When compared with ECG of 22-FEB-2025 01:51, (unconfirmed) Sinus rhythm has replaced Atrial fibrillation Confirmed by HARJINDER HANDY M.D ([id number]) on 03/05/2025 11:42:44 AM [facility] 02/22/2025 9:14 AM CDT 03/05/2025 11:42 AM CDT Jaimie Giordano MD ECG ORDERABLES Victoria l Result Performing Organization Address City/[facility] Co de Phone Number [facility] * (ABNORMAL) Troponin I high-sensitivity 4-hour (02/22/2025 6:24 AM CDT) Trop I hs 1,868(C) <=17 ng/L Comment: Previous critical value noted within 48 hours ago. Interpretive Data For further hscTnI resources including the diagnostic algorithm and an aid in interpretation, copy and paste this link: https://[email or web address].[email or web address]/show/hsTrop-[email or web address] Current Interpretive Data last revised 2020. Trop I hs pct delta -19(C) % [facility] Comment:Previous critical va lue noted within 48 hours ago. Trop I hs interp Significa nt(C) [facility] Comment:Previous critical va lue noted within 48 hours ago. Blood 02/22/2025 6:24 AM CDT 02/22/2025 6:48 AM CDT us Milton Rubio MD LAB BLOOD ORDERABLES Final Resul t Performing Organization Address [facility] Co de Phone Number [facility] Department [place] [address] * (ABNORMAL) Troponin I high-sensitivity 2-hour (02/22/2025 4:51 AM CDT) Trop I hs 2,146(C) <=17 ng/L Comment: Previous critical value noted within 48 hours ago. Interpretive Data For further hscTnI resources including the diagnostic algorithm and an aid in interpretation, copy and paste this link: [email or web address].testcatalog.org/show/hsTrop-1 Current Interpretive Data last revised 2020. Trop I hs pct delta -7 % [facility] Trop I hs interp Equivocal [facility] Blood 02/22/2025 4:51 AM CDT 02/22/2025 5:26 AM CDT us Milton Rubio MD LAB BLOOD ORDERABLES Final Resul t Performing Organization Address [facility] de Phone Number [facility] [place] [address] * (ABNORMAL) aPTT (02/22/2025 4:51 AM CDT) [...] ORDERABLES Final Resul t Performing Organization Address [facility] de Phone Number [facility] [place] [address] * Infection Prevention Anthony auris PCR, surveillance Axilla/Groin (02/22/2025 2:05 AM CDT) Anthony auris DNA Not Detected Not Detected [facility] Comment: Interpretive Data Testing performed by [facility] Infectious Disease [facility] using the Pablo estelle 6800 Anthony auris assay. This assay detects DNA from Anthony auris using Real-Time PCR. This assay is laboratory developed and is not cleared by the [place] Food and Drug Administration. The performance characteristics have been verified by the [facility]ious Disease [facility]. Axilla/Groin 02/22/2025 2:05 AM CDT 02/22/2025 3:14 AM CDT Narrative [facility] 02/22/2025 2:38 PM CDT Order placed by [facility] due to ring surveillance. us Instant Order Generic Provider LAB MICROBIOLOGY - GENERAL ORDERABLES Final Result Performing Organization Address [facility] de Phone Number [facility] [place] [address] [facility] * (ABNORMAL) Troponin I high-sensitivity series (baseline, 2hr, 4hr, 6hr) (02/22/2025 2:05 AM CDT) Pathologist [facility] Trop I hs 2,317(C) <=17 ng/L Comment: Previous critical value noted within 48 hours ago. Interpretive Data For further hscTnI resources including the diagnostic algorithm and an aid in interpretation, copy and paste this link: https://bjhlab.testcatalog.org/show/hsTrop-[email or web address] Current Interpretive Data last revised 2020. Blood 02/22/2025 2:05 AM CDT 02/22/2025 2:57 AM CDT Milton Rubio MD LAB BLOOD ORDERABLES Final Resul t Performing Organization Address [facility] de Phone Number [facility] [place] [address] * (ABNORMAL) eGFR (02/22/2025 2:05 AM CDT) Pathologist [facility] eGFR 3(L) >=60 mL/min/1. 73 m2 Comment: [...] ORDERABLES Final Resul t Performing Organization Address City/[facility]/ZIP Co de Phone Number [facility] Department [place] [address] * Magnesium (02/22/2025 2:05 AM CDT) Pathologist [facility] Magnesium 2.5 1.4 - 2.5 mg/dL Blood 02/22/2025 2:05 AM CDT 02/22/2025 2:58 AM CDT Milton Rubio MD LAB BLOOD ORDERABLES Final Resul t Performing Organization Address [facility] de Phone Number [facility] Department [place] [address] * (ABNORMAL) Comprehensive metabolic panel (02/22/2025 2:05 AM CDT) Sodium 138 135 - 145 mmol/L Potassium, pl 4.3 3.3 - 4.9 mmol/L [facility] Chloride 95(L) 97 - 110 mmol/L [facility] CO2 26 22 - 32 mmol/L [facility] Anion gap 17(H) 2 - 15 mmol/L [facility] BUN 55(H) 6 - 25 mg/dL [facility] Creatinine 12.63(H) 0.60 - 1.10 mg/dL [facility] Glucose 99 70 - 199 mg/dL [facility] Comment: Interpretive Data Fasting glucose >/= [...] 2022. Calcium 8.1(L) 8.5 - 10.3 mg/dL [facility] Bilirubin, total 0.2 0.1 - 1.2 mg/dL [facility] Protein, pl 6.0(L) 6.5 - 8.5 g/dL [facility] Albumin 2.6(L) 3.5 - 5.0 g/dL [facility] Alk phos 59 40 - 130 Units/L [facility] ALT 14 7 - 45 Units/L [facility] AST 20 10 - 45 Units/L [facility] Blood 02/22/2025 2:05 AM CDT 02/22/2025 2:58 AM CDT us Milton Rubio MD LAB BLOOD ORDERABLES Final Resul t [facility] [place] [address] * ECG 12 lead (02/22/2025 1:45 AM CDT) [facility] Ventricular Rate EKG/Min [address] [facility] QRS-Interval (MSEC) 94 ms [facility] QT-Interval (MSEC) 316 ms [facility] QTc 477 ms [facility] R [place] -41 degrees [facility] T [place] 137 degrees [facility] Diagnosis Age and gender specific ECG analysis Sinus tachycardia Anteroseptal ST-elevation Poor R-wave progression in the precordial leads Left axis deviation Minimal voltage criteria for LVH, may be normal variant ( Oliverio product ) Anteroseptal infarct , possibly acute T wave abnormality, consider lateral ischemia Abnormal ECG No previous ECGs available Confirmed by HARJINDER HANDY M.D ([id number]) on 02/23/2025 3:10:53 PM [facility] 02/22/2025 1:45 AM CDT 02/23/2025 3:10 PM CDT us Jaimie Giordano MD ECG ORDERABLES Victoria l Result [facility] * Hepatitis C antibody Blood (01/28/2025 9:42 AM CDT) Hep C Ab Nonreactive Nonreactive Comment:Antibodies to HCV no t detected. Does NOT exclude the possibility of recent exposure to HCV. Current interpretive data was last revised on 22 Blood 01/28/2025 9:42 AM CDT 01/28/2025 10:56 AM CDT us Tamar Tang MD LAB MICROBIOLOGY - GENERAL ORD ERABLES Final Result [facility] [place] [address] from Last 3 Months or Most Recently Relevant to Health Maintenance Insurance [facility] H[facility]/PPO Address: [facility] [address] [place] [address] MEDICARE [facility] H[facility]/PPO Address: [address] [address] [place] [address] [facility] H[facility]/PPO Address: [address] [address] [place] [address] MEDICARE MEDICARE [facility] CHOICE [facility]US [facility] H[facility]/PPO Address: [address] [address] [place] [address] [employer] Advance Directives For more information, please contact: [phone] * Full Code (Latest Code Status on [...] 10:59 AM 12/28/2024 9:10 AM Care Teams Pet Groomer Relationship Specialty Start Date End Date Pal Downey DO PCP - General Internal Medicine 01/25/21 Quinton Rowan MD Referring Physician Cardiology 01/09/19 Tami Flores, TONO [address] [address] Registered Nurse Cpc Coder 01/25/21 Cricket Escalante MD [address] [address] Referring Physician Nephrology 03/24/21 Gael Sprague MD PhD [address] [address] Fellow Endocrinology Diabetes & Metabolism 03/24/21 Brad Turner MD [address] [address] Consulting Physician Obstetrics and Gynecology 03/24/21 Margarita Montoya MD [address] [address] Consulting Physician Trauma Surgery 12/27/21 Luca Lott MD [address] [address] Consulting Physician Cardiology 08/03/22 Pb Galloway MD [address] [address] Cardiothoracic Surgery 05/25/24 Felipe Gerber MD [address] [address] Consulting Physician Cardiology 05/25/24
--- OUTSIDE RECORDS SUMMARY | 2025-05-25 05:40 | XMS_ITS ---
Author Organization [facility] Address [address] [place] [address] Care Team Providers Care Stream Control Officer Name Role Phone Quinton Rowan MD Unavailable Pal Downey DO Primary Care Provider [phone] Tami Flores RN Unavailable [phone] Cricket Escalante MD Unavailable [phone] Gael Sprague MD PhD Unavailable Brad Turner MD Unavailable [phone] Margarita Montoya MD Unavailable Luca Medrano MD Unavailable Pb Galloway MD Unavailable Felipe Gerber MD Unavailable [phone] Dialysis Plan of Treatment Dialysis Prescription [...] 4:14 PM CDT Coronary artery disease involving [place] coronary artery of [place] heart without angina pectoris POCT ACTIVATED CLOTTING [...] - REMOTE Routine 04/23/2025 12:51 AM CDT EXTENDED/SENIOR CARE HOLTER PATCH (>48 HOURS UP TO 7 [...] no reactions Penicillins Anaphylaxis,Rash,Un known High 04/29/2015 Opskrbs-Inw-Rtc Reductase Inhibitors Muscle pain Medium 02/20/2025 Trialed [...] changes - Dr. 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 [facility] admit 04/22-04/24 for afib with work up TSH wnl, hyperkalemic, troponins flat. Reports palpitations stopped last week. Planned direct admission for amiodarone loading, however, patient is no longer wanting to complete this (patient has appropriate concerns about terminal operations manager side effects of Amio, particularly with her thyroid disease) - Home apixaban BID on hold until after [facility] - EP consulted -> recommended device interrogation, completed with known A.fib - Telemetry monitoring Assessment & Plan (05/06/2025 12:38 PM CDT): AT/AF burden 0.8% per device transmission. [facility] admit 04/22-04/24 for afib with work up [...] CDT): AT/AF burden 0.8% per device transmission. [facility] admit 04/22-04/24 for afib with work up TSH wnl, hyperkalemic, troponins flat. Reports palpitations stopped last week. Planned direct admission for amiodarone loading, however, patient is no longer wanting to complete this - Continue home apixaban BID - EP consulted -> recommended device interrogation (completed) and TTE - Telemetry monitoring Assessment & Plan (05/04/2025 10:43 PM CDT): AT/AF burden 0.8% per device transmission. [facility] admit 04/22-04/24 for afib with work up [...] (02/01/2022): Added automatically from request for surgery [id number] Assessment & Plan (02/05/2025 3:15 PM CDT): Undergoing pre transplant evaluation. We will review with Dr. Medrano regarding possible candidacy for transplant list given recent interventions. Continued to DAPT Disorder of peritoneal dialysis catheter 022 Overview (12/22/2021): Added automatically from request for surgery [id number] Chronic kidney disease, stage V 10/31/2021 Overview (08/21/2023): Added automatically from request for surgery [id number] Sick sinus syndrome 11/02/2020 Assessment & Plan [...] along w/ significant troponin elevation -Plan for [facility] w/ possible PCI tomorrow pending results [...] (02/09/2019): Added automatically from request for surgery [id number] Assessment & Plan (05/17/2019 9:19 AM CDT): [...] (02/10/2019): Added automatically from request for surgery [id number] Assessment & Plan (05/07/2025 3:38 PM CDT): [...] changes - Dr. 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 Escalante Continue lasix 40 mg [...] kidney disease, baseline Cr 2.4-2.6. F/b OSH salt cutter. Apparently discussions for potential need for renal txp being discussed. - Cr at baseline on adm - avoid nephrotoxins, renally dose meds - continue calcitriol 0.5 mcg/day - Cr 2.75, received pre-cath hydration, stable 2.7 Headache 05/02/2016 Moderate COPD (chronic obstr uctive pulmonary disease) ([facility] 11/02/2015 Assessment & Plan (05/07/2025 3:38 PM [...] CDT): Alexis TAVR 05/[address] [facility], Dr. Medrano. CT TAVR [...] a candidate for intervention (declined by [facility], [facility]) Assessment & Plan (05/17/2019 9:28 [...] AV. Referred to valve team by primary sticker machine operator Dr. Rowan. Seen 02/02 by [...] = 0.6 oz pur e alcohol) occasional [facility] Utilities Answer Date Recorded In the past 12 months has th e electric, gas, oil, or water [employer] threatened to shut off services in your home? Patient declined 05/10/2025 Social Connection and Isolation Panel [NHANES] A nswer Date Recorded In a typical week, how many times do you talk on the phone with family, friends, or neighbors? Patient declined 05/10/2025 How often do you get togethe r with friends or relatives? Patient declined 05/10/2025 How often do you attend protestant or restorationism serv ices? Patient declined 05/10/2025 Do you [...] were you homeless or living in a snf (including now)? Patient declined 05/10/2025 Personal Safety Answer Date Recorded Have you ever been in or are you currently in a harmful physical or emotional relationship or is someone making you feel afraid or unsafe? Denies 05/11/2025 Comments No Sex and Gender Information Value Date Recorded Sex Assigned at Not on file Legal Sex Female 4:06 AM COMMISSIONER OF OFFICIALS Gender Identity Female 01/16/2024 11:18 AM CDT [...] LAB BLOOD ORDERABLES Final R esult [facility] [place] [address] * Differential, auto (05/11/2025 6:30 PM CDT) Neutrophil abs 4.30 1.50 - 6.50 K/cumm Comment:Collection date/time has been modified to: 18:30:00. Previous collection date/time: 17:32:00. Imm gran abs 0.02 0.00 - 0.10 K/cumm [facility] Comment:Collection date/time has been modified to: 18:30:00. Previous collection date/time: 17:32:00. Lymphocyte abs 0.83 0.80 - 3.30 K/cumm [facility] Comment:Collection date/time has been modified to: 18:30:00. Previous collection date/time: 17:32:00. Monocyte abs 0.28 0.20 - 0.80 K/cumm [facility] Comment:Collection date/time has been modified to: 18:30:00. Previous collection date/time: 17:32:00. Eosinophil abs 0.19 0.00 - 0.50 K/cumm [facility] Comment:Collection date/time has been modified to: 18:30:00. Previous collection date/time: 17:32:00. Basophil abs 0.02 0.00 - 0.10 K/cumm [facility] Comment:Collection date/time has been modified to: 18:30:00. Previous collection date/time: 17:32:00. Neutrophil pct 76.1 % [facility] Comment: Collection date/time has been modified to: 18:30:00. Previous collection date/time: 17:32:00. Interpretive Data Percent cell count reference ranges are not reported, since discordance with absolute values may lead to misinterpretation of CBC data. Current Interpretive Data was last revised on 2018. Imm gran pct 0.4 % [facility] Comment: Collection date/time has been modified to: 18:30:00. Previous collection date/time: 17:32:00. Interpretive Data Percent cell count reference ranges are not reported, since discordance with absolute values may lead to misinterpretation of CBC data. Current Interpretive Data was last revised on 2018. Lymphocyte pct 14.7 % [facility] Comment: Collection date/time has been modified to: 18:30:00. Previous collection date/time: 17:32:00. Interpretive Data Percent cell count reference ranges are not reported, since discordance with absolute values may lead to misinterpretation of CBC data. Current Interpretive Data was last revised on 2018. Monocyte pct 5.0 % [facility] Comment: Collection date/time has been modified [...] BLOOD ORDERABLES Edited Result - Final [facility] [place] [address] * (ABNORMAL) CBC with auto differential (05/11/2025 6:30 PM CDT) WBC 5.64 3.80 - 9.90 K/cumm Comment:Collection date/time has been modified to: 18:30:00. Previous collection date/time: 17:32:00. Hgb 11.5(L) 11.9 - 15.5 g/dL [facility] Comment:Collection date/time has been modified to: 18:30:00. Previous collection date/time: 17:32:00. Hct 36.8 35.6 - 45.5 % [facility] Comment:Collection date/time has been modified to: 18:30:00. Previous collection date/time: 17:32:00. Plt 158 150 - 400 K/cumm [facility] Comment:Collection date/time has been modified to: 18:30:00. Previous collection date/time: 17:32:00. MPV 10.7 9.1 - 12.3 fL [facility] Comment:Collection date/time has been modified to: 18:30:00. Previous collection date/time: 17:32:00. RBC 3.94 3.90 - 5.20 M/cumm [facility] Comment:Collection date/time has been modified to: 18:30:00. Previous collection date/time: 17:32:00. MCV 93.4 81.3 - 96.4 fL [facility] Comment:Collection date/time has been modified to: 18:30:00. Previous collection date/time: 17:32:00. MCH 29.2 27.1 - 33.3 pg [facility] Comment:Collection date/time has been modified to: 18:30:00. Previous collection date/time: 17:32:00. MCHC 31.3(L) 32.3 - 35.7 g/dL [facility] Comment:Collection date/time has been modified to: 18:30:00. Previous collection date/time: 17:32:00. RDW CV 16.3(H) 11.1 - 14.9 % [facility] Comment:Collection date/time has been modified to: 18:30:00. Previous collection date/time: 17:32:00. RDW SD 55.2(H) 35.7 - 48.1 fL [facility] Comment:Collection date/time has been modified to: 18:30:00. Previous collection date/time: 17:32:00. NRBC abs 0.00 0.00 - 0.01 K/cumm [facility] Comment:Collection date/time has been modified to: 18:30:00. Previous collection date/time: 17:32:00. Blood 05/11/2025 6:30 PM CDT 05/11/2025 6:39 PM CDT Luca Medrano MD LAB BLOOD ORDERABLES Edited Result - Final [facility] [place] [address] * (ABNORMAL) Basic metabolic panel (05/11/2025 6:30 PM CDT) Sodium 134(L) 135 - 145 mmol/L Potassium, pl 5.4(H) 3.3 - 4.9 mmol/L [facility] Chloride 96(L) 97 - 110 mmol/L [facility] CO2 26 22 - 32 mmol/L [facility] Anion gap 12 2 - 15 mmol/L [facility] BUN 57(H) 6 - 25 mg/dL [facility] Creatinine 13.94(H) 0.60 - 1.10 mg/dL [facility] Glucose 114 70 - 199 mg/dL [facility] Comment: Interpretive Data Fasting glucose >/= [...] Calcium 8.3(L) 8.5 - 10.3 mg/dL [facility] Blood 05/11/2025 6:30 PM CDT 05/11/2025 6:39 PM CDT us Luca Medrano MD LAB BLOOD ORDERABLES Final R esult [facility] [place] [address] * LEFT HEART CATHETERIZATION WITH CORONARY ANGIOGRAPHY [...] 54 y.o. female : 1970 MR number: [id number] Date of Service: 05/11/2025 Postdoctoral Scientist: Luca Medrano MD Fellow: Rio Jacobs MD [...] obtained. The patient was brought to the slabbing machine operator and placed on the table Bilateral groins [...] coronary artery angiogram performed using a 6 Uzbek JL 3 guide Percutaneous coronary intervention performed on the Proximal vein graft to the LAD. This was an ACC/AHA Type C. Initial Lesion Length 12mm and final lesion Length 12mm. Initial KAROLINA Flow 3 Final KAROLINA Flow 3. Equipment used: 6 3D RC Gradwell Radford IVUS Catheter, Seam Taper Machine 50 wire, 0.9 mm laser atherectomy catheter [...] got the guide to sit and a Seam Taper Machine 50 wire down into the LAD. Next [...] 284(H) 123 - 168 sec POC Performer [id number] [facility] POC Device Number [id number] [facility] Blood 05/11/2025 4:12 PM CDT 05/11/2025 4:12 PM CDT Luca Medrano MD LAB POCT ORDERABLES - DEVICE Final Result [facility] [place] [address] * (ABNORMAL) POCT Activated clotting time, low range (05/11/2025 3:50 PM CDT) ACT 290(H) 123 - 168 sec POC Performer [id number] [facility] POC Device Number [id number] [facility] Blood 05/11/2025 3:50 PM CDT 05/11/2025 3:50 PM CDT Luca Medrano MD LAB POCT ORDERABLES - DEVICE Final Result Performing Organization Address [facility] Co de Phone Number [facility] [place] [address] * (ABNORMAL) Potassium, whole blood (05/11/2025 12:00 PM CDT) [facility] Potassium, bld 5.0(H) 3.3 - 4.9 mmol/L Blood 05/11/2025 12:0 0 PM CDT 05/11/2025 12:12 PM CDT Kasi Garcia CAR AUDIO INSTALLER LAB BLOOD ORDERABLES F inal Result Performing Organization Address [facility] Co de Phone Number [facility] [place] [address] * (ABNORMAL) POC Blood Gas and Chemistries, Arterial - (05/11/2025 11:46 AM CDT) [facility] K POC 5.5(H) 3.3 - 4.9 [...] - DEVICE Final Result Performing Organization Address [facility] Co de Phone Number [facility] [place] [address] * TRANSTHORACIC ECHO (TTE) COMPLETE W DOPPLER/CF W CONTRAST (05/07/2025 10:16 AM CDT) [facility] Estimated EF 55-60 % CONS SCIMAGE Anatomical Region Laterality Modality Ultrasound 05/06/2025 3:39 PM CDT Narrative 05/06/2025 6:28 PM CDT [facility] [place] [address] [place] [address] Transthoracic Echocardiographic Report Patient Name: ESTUARDO COPELAND M : 1970 (54y 5m) Gender: F Study Date: 05/06/2025 03:39:15 PM Ht(Inch): 64 Wt(Lb): 132.94 BSA: 1.65 Supervisor Title: Brad Tripathi RDCS Location: [id number] Order Provider: ASHLEY CHAHAL Heart Rate: 65 [...] Procedure Note Job Gordon MD - 05/06/2025 [facility] [place] [address] [place] [address] Transthoracic Echocardiographic Report Patient Name: ESTUARDO COPELAND M : 1970 (54y 5m) Gender: F Study Date: 05/06/2025 03:39:15 PM Ht(Inch): 64 Wt(Lb): 132.94 BSA: 1.65 Supervisor Title: Brad Tripathi RDCS Location: [id number] Order Provider: ASHLEY CHAHAL Heart Rate: 65 [...] cm/m2 [ 1.00 - 2.00 ] MV ODV288.27 msec [ 20.00 - 100.00 ] Asc Ao Diam 2D 1.63 cm MVA PHT2.11 cm2 Asc Ao Index 0.99 cm/m2 MV Decel Xaxc022.23 msec [ 104.00 - 258.00 ] Med [...] LAB BLOOD ORDERAB LES Final Result [facility] [place] [address] * (ABNORMAL) Vitamin D 25 hydroxy (05/07/2025 6:17 AM CDT) Vitamin D 25-OH 22(L) 30 - 80 ng/mL Blood 05/07/2025 6:17 AM CDT 05/07/2025 6:55 AM CDT us Ashley Chahal MD LAB BLOOD ORDERAB LES Final Result [facility] [place] [address] * (ABNORMAL) CBC without differential (05/07/2025 6:17 AM CDT) Pathologist [facility] WBC 6.90 3.80 - 9.90 K/cumm Hgb 12.4 11.9 - 15.5 g/dL [facility] Hct 39.1 35.6 - 45.5 % [facility] Plt 157 150 - 400 K/cumm [facility] MPV 10.4 9.1 - 12.3 fL [facility] RBC 4.19 3.90 - 5.20 M/cumm [facility] MCV 93.3 81.3 - 96.4 fL [facility] MCH 29.6 27.1 - 33.3 pg [facility] MCHC 31.7(L) 32.3 - 35.7 g/dL [facility] RDW CV 16.6(H) 11.1 - 14.9 % [facility] RDW SD 56.4(H) 35.7 - 48.1 fL [facility] NRBC abs 0.00 0.00 - 0.01 K/cumm [facility] Blood 05/07/2025 6:17 AM CDT 05/07/2025 6:55 AM CDT us Ashley Chahal MD LAB BLOOD ORDERAB LES Final Result Performing Organization Address [facility] Co de Phone Number [facility] [place] [address] * (ABNORMAL) PTH (05/07/2025 6:17 AM CDT) [facility] PTH 9(L) 15 - 65 pg/mL Blood 05/07/2025 6:17 AM CDT 05/07/2025 6:55 AM CDT us Ashley Chahal MD LAB BLOOD ORDERAB LES Final Result Performing Organization Address City/[facility]/ZIP Co de Phone Number [facility] [place] [address] * (ABNORMAL) Renal function panel (05/07/2025 6:17 AM CDT) Sodium 136 135 - 145 mmol/L Potassium, pl 5.1(H) 3.3 - 4.9 mmol/L [facility] Chloride 96(L) 97 - 110 mmol/L [facility] CO2 27 22 - 32 mmol/L [facility] Anion gap 13 2 - 15 mmol/L [facility] BUN 52(H) 6 - 25 mg/dL [facility] Creatinine 14.17(H) 0.60 - 1.10 mg/dL [facility] Glucose 86 70 - 199 mg/dL [facility] Comment: Interpretive Data Fasting glucose >/= [...] Calcium 8.8 8.5 - 10.3 mg/dL [facility] Phosphorus, pl 9.9(H) 2.3 - 4.5 mg/dL [facility] Albumin 2.8(L) 3.5 - 5.0 g/dL [facility] Blood 05/07/2025 6:17 AM CDT 05/07/2025 6:55 AM CDT us Ashley Chahal MD LAB BLOOD ORDERAB LES Final Result Performing Organization Address City/[facility]/ZIP Co de Phone Number [facility] [place] [address] * Cortisol (05/06/2025 8:36 AM CDT) Cortisol [...] LAB BLOOD ORDERAB LES Final Result [facility] [place] [address] * (ABNORMAL) eGFR (05/06/2025 3:41 AM CDT) [...] LAB BLOOD ORDERAB LES Final Result [facility] [place] [address] * (ABNORMAL) Magnesium (05/06/2025 3:41 AM CDT) Magnesium 2.7(H) 1.4 - 2.5 mg/dL Blood 05/06/2025 3:41 AM CDT 05/06/2025 4:14 AM CDT Ashley Chahal MD LAB BLOOD ORDERAB LES Final Result Performing Organization Address [facility] Co de Phone Number [facility] Department [place] [address] * (ABNORMAL) Renal function panel (05/06/2025 3:41 AM CDT) Pathologist [facility] Sodium 136 135 - 145 mmol/L Potassium, pl 4.9 3.3 - 4.9 mmol/L [facility] Chloride 97 97 - 110 mmol/L [facility] CO2 25 22 - 32 mmol/L [facility] Anion gap 14 2 - 15 mmol/L [facility] BUN 56(H) 6 - 25 mg/dL [facility] Creatinine 14.58(H) 0.60 - 1.10 mg/dL [facility] Glucose 107 70 - 199 mg/dL [facility] Comment: Interpretive Data Fasting glucose >/= [...] Calcium 9.0 8.5 - 10.3 mg/dL [facility] Phosphorus, pl 10.0(H) 2.3 - 4.5 mg/dL [facility] Albumin 2.7(L) 3.5 - 5.0 g/dL [facility] Blood 05/06/2025 3:41 AM CDT 05/06/2025 4:14 AM CDT Ashley Chahal MD LAB BLOOD ORDERAB LES Final Result Performing Organization Address [facility] Co de Phone Number [facility] Department [place] [address] * (ABNORMAL) Troponin I high-sensitivity 6-hour (05/05/2025 11:37 AM CDT) Trop I hs 172(H) <=17 ng/L Comment: Previous critical value noted within 48 hours ago. Interpretive Data For further hscTnI resources including the diagnostic algorithm and an aid in interpretation, copy and paste this link: [email or web address]/show/[email or web address] Current Interpretive Data last revised 2020. Trop I hs pct delta -11 % [facility] Trop I hs interp Equivocal [facility] Blood 05/05/2025 11:3 7 AM CDT 05/05/2025 12:24 PM CDT Jacqueline Jules MD LAB BLOOD ORDER [place] Final Result Performing Organization Address [facility]/ZIP Co de Phone Number [facility] Department [place] [address] * (ABNORMAL) Troponin I high-sensitivity 4-hour (05/05/2025 9:06 AM CDT) Trop I hs 189(H) <=17 ng/L Comment: Interpretive Data For further hscTnI resources including the diagnostic algorithm and an aid in interpretation, copy and paste this link: [email or web address]/show/[email or web address] Current Interpretive Data last revised 2020. Trop I hs pct delta -3 % [facility] Trop I hs interp Insignificant [facility] Blood 05/05/2025 9:06 AM CDT 05/05/2025 9:54 AM CDT Jacqueline Jules MD LAB BLOOD ORDER [place] Final Result Performing Organization Address [facility] de Phone Number [facility] [place] [address] * (ABNORMAL) Troponin I high-sensitivity 2-hour (05/05/2025 6:36 AM CDT) Trop I hs 192(H) <=17 ng/L Comment: Interpretive Data For further hscTnI resources including the diagnostic algorithm and an aid in interpretation, copy and paste this link: [email or web address] [email or web address]/show/[email or web address] Current Interpretive Data last revised 2020. Trop I hs pct delta -1 % [facility] Trop I hs interp Insignificant [facility] Blood 05/05/2025 6:36 AM CDT 05/05/2025 8:08 AM CDT Jacqueline Jules MD LAB BLOOD ORDER [place] Final Result Performing Organization Address [facility] de Phone Number [facility] Department of [facility] [place] [address] * (ABNORMAL) Troponin I high-sensitivity series (baseline, 2hr, 4hr, 6hr) (05/05/2025 4:48 AM CDT) Trop I hs 194(H) <=17 ng/L Comment: Interpretive Data For further hscTnI resources including the diagnostic algorithm and an aid in interpretation, copy and paste this link: [email or web address]/show/[email or web address] Current Interpretive Data last revised 2020. Blood 05/05/2025 4:48 AM CDT 05/05/2025 5:03 AM CDT Jacqueline Jules MD LAB BLOOD ORDER [place] Final Result Performing Organization Address City/[facility]/ZIP Co de Phone Number [facility] [place] [address] * (ABNORMAL) eGFR (05/05/2025 4:48 AM CDT) [...] ORDER [place] Final Result Performing Organization Address City/[facility]/ZIP Co de Phone Number [facility] [place] [address] * (ABNORMAL) Pro B-type natriuretic peptide (05/05/2025 [...] ORDER [place] Final Result [facility] [place] [address] * (ABNORMAL) Thyroid Function Cassia (05/05/2025 4:48 AM CDT) TSH 14.50(H) 0.30 - 4.20 mcIUnit/mL Blood 05/05/2025 4:48 AM CDT 05/05/2025 5:03 AM CDT Jacqueline Jules MD LAB BLOOD ORDER [place] Final Result Performing Organization Address [facility] de Phone Number [facility] [place] [address] * Protime-INR (05/05/2025 4:48 AM CDT) Pathologist [facility] PT 12.4 9.7 - 13.0 sec INR 1.14 0.90 - 1.20 [facility] Comment: Interpretive data Oral anticoagulant therapeutic ranges: Venous thromboembolism prophylaxis or treatment: 2.0-3.0 CARDIOLOGY Standard range: 2.0-3.0 High-intensity range: 2.5-3.5 Refer to indication-specific guidelines for appropriate target ranges for prosthetic heart valve replacement. Current interpretive data was last revised on 2019. Blood 05/05/2025 4:48 AM CDT 05/05/2025 5:13 AM CDT Narrative [facility] - 05/05/2025 5:19 AM CDT Baseline prior to apixaban initiation. Jacqueline Jules MD LAB BLOOD ORDER [place] Final Result Performing Organization Address [facility] de Phone Number [facility] [place] [address] * (ABNORMAL) CBC without differential (05/05/2025 4:48 AM CDT) WBC 5.83 3.80 - 9.90 K/cumm Hgb 11.8(L) 11.9 - 15.5 g/dL [facility] Hct 37.7 35.6 - 45.5 % [facility] Plt 131(L) 150 - 400 K/cumm [facility] MPV 10.9 9.1 - 12.3 fL [facility] RBC 4.00 3.90 - 5.20 M/cumm [facility] MCV 94.3 81.3 - 96.4 fL [facility] MCH 29.5 27.1 - 33.3 pg [facility] MCHC 31.3(L) 32.3 - 35.7 g/dL [facility] RDW CV 16.8(H) 11.1 - 14.9 % [facility] RDW SD 56.8(H) 35.7 - 48.1 fL [facility] NRBC abs 0.00 0.00 - 0.01 K/cumm [facility] Blood 05/05/2025 4:48 AM CDT 05/05/2025 5:04 AM CDT Jacqueline Jules MD LAB BLOOD ORDER [place] Final Result Performing Organization Address City/[facility]/ZIP Co de Phone Number [facility] Department of [employer] [place] [address] * (ABNORMAL) T4, free (05/05/2025 4:48 AM CDT) Free T4 0.70(L) 0.90 - 1.70 ng/dL Blood 05/05/2025 4:48 AM CDT 05/05/2025 5:03 AM CDT Narrative [facility] - 05/05/2025 6:23 AM CDT This test was reflexed from a TSH result. Jacqueline Jules MD LAB BLOOD ORDER [place] Edited Result - Final Performing Organization Address City/[facility]/ZIP Co de Phone Number [facility] [facility] [place] [address] * (ABNORMAL) Phosphorus (05/05/2025 4:48 AM CDT) Phosphorus, pl 11.7(H) 2.3 - 4.5 mg/dL Blood 05/05/2025 4:48 AM CDT 05/05/2025 5:03 AM CDT Jacqueline Jules MD LAB BLOOD ORDER [place] Final Result Performing Organization Address City/[facility] Co de Phone Number [facility] [place] [address] * (ABNORMAL) Magnesium (05/05/2025 4:48 AM CDT) [facility] Magnesium 2.9(H) 1.4 - 2.5 mg/dL Blood 05/05/2025 4:48 AM CDT 05/05/2025 5:03 AM CDT Jacqueline Jules MD LAB BLOOD ORDER [place] Final Result Performing Organization Address [facility] Co de Phone Number [facility] Department [place] [address] * Bilirubin, direct (05/05/2025 4:48 AM CDT) [facility] Bilirubin, direct <0.2 0.1 - 0.3 mg/dL Blood 05/05/2025 4:48 AM CDT 05/05/2025 5:03 AM CDT Jacqueline Jules MD LAB BLOOD ORDER [place] Final Result Performing Organization Address City/[facility] [place] [address] * (ABNORMAL) Comprehensive metabolic panel (05/05/2025 4:48 AM CDT) [facility] Sodium 140 135 - 145 mmol/L Potassium, pl 5.1(H) 3.3 - 4.9 mmol/L [facility] Chloride 100 97 - 110 mmol/L [facility] CO2 24 22 - 32 mmol/L [facility] Anion gap 16(H) 2 - 15 mmol/L [facility] BUN 60(H) 6 - 25 mg/dL [facility] Creatinine 14.48(H) 0.60 - 1.10 mg/dL [facility] Glucose 91 70 - 199 mg/dL [facility] Comment: Interpretive Data Fasting glucose >/= [...] Calcium 9.5 8.5 - 10.3 mg/dL [facility] Bilirubin, total 0.2 0.1 - 1.2 mg/dL [facility] Protein, pl 5.6(L) 6.5 - 8.5 g/dL [facility] Albumin 2.8(L) 3.5 - 5.0 g/dL [facility] Alk phos 71 40 - 130 Units/L [facility] ALT 9 7 - 45 Units/L [facility] AST 16 10 - 45 Units/L [facility] Blood 05/05/2025 4:48 AM CDT 05/05/2025 5:03 AM CDT Jacqueline Jules MD LAB BLOOD ORDER [place] Final Result [facility] [place] [address] * XR Chest 1 View (05/04/2025 11:16 [...] it. Electronically signed by: Woodrow Dial M.D. [facility] Lacey Jules MD IMG XR PROCEDUR ES Final Result * ECG 12 lead (05/04/2025 8:59 PM CDT) [facility] Ventricular Rate EKG/Min 82 BPM [facility] Atrial Rate 82 BPM [facility] VA-Interval (MSEC) 160 ms [facility] QRS-Interval (MSEC) 84 ms [facility] QT-Interval (MSEC) 368 ms [facility] QTc 429 ms [facility] P [place] -16 degrees [facility] R [place] -27 degrees [facility] T [place] 134 degrees [facility] Diagnosis Atrial-paced rhythm Minimal voltage criteria for LVH, may be normal variant ( Oliverio product ) Septal infarct (cited on or before 20-FEB-2025) T wave abnormality, consider lateral ischemia Abnormal ECG When compared with ECG of 22-FEB-2025 09:14, Electronic atrial pacemaker has replaced Sinus rhythm Confirmed by HARJINDER HANDY M.D ([id number]) on 05/05/2025 2:09:39 PM [facility] [employer] 05/04/2025 8:59 PM CDT 05/05/2025 2:09 PM CDT Jacqueline Jules MD ECG ORDERABLES Final Result [facility] [employer] [facility] * Cardiology Document Scan (04/24/2025 3:35 [...] appropriate. No short V-V intervals. Presenting Rhythm (VA) Atrial Sensing-Ventricular Sensing (-VS) --- /VS (SR) [...] andappropriate. No short V-V intervals. Presenting Rhythm (VA) Atrial Sensing-Ventricular Sensing (-VS) --- /VS (SR) [...] 12:48:59 PM Ht(Inch): Wt(Lb): BSA: Tech: Location: [facility] Order Provider: LUCA MEDRANO BMI: Ref Provider: LUCA MEDRANO PROCEDURES: Holter Report: EXTENDED/SENIOR CARE HOLTER PATCH (>48 HOURS UP TO 7 DAYS) [[id number]]. Enrollment Period: 2025-04-27 00:00:00 through 2025-04-29 00:00:00. Location: [facility]. INDICATIONS: R00.2 Palpitations. FINDINGS: Holter Data: Min [...] events Runs (VT): 6 events Total beats: 50547 SIGNIFICANT PAUSES: 0 >3 sec Protocol: Recording Duration (Ordered): 193496 Recording Duration (Actual): 25982.3 SUMMARY: *The predominant rhythm was Sinus with [...] The PDF can be found in the [facility] Patient chart. Please go to the [...] 12:48:59 PM Ht(Inch): Wt(Lb): BSA: Tech: Location: [facility] Order Provider: LUCA MEDRANO BMI: Ref Provider: LUCA MEDRANO PROCEDURES: Holter Report: EXTENDED/SENIOR CARE HOLTER PATCH (>48 HOURS UP TO 7 DAYS)[[id number]]. Enrollment Period: 2025-04-27 00:00:00 through 2025-04-29 00:00:00. Location: [facility]. INDICATIONS: R00.2 Palpitations. FINDINGS: Holter Data: Min [...] events Runs (VT): 6 events Total beats: 05482 SIGNIFICANT PAUSES: 0 >3 sec Protocol: Recording Duration (Ordered): [id number] Recording Duration (Actual): 18769.3 SUMMARY: *The predominant rhythm was Sinus with [...] The PDF can be found in the [facility] Patient chart. Please go to theCardiology [...] 10:0 0 AM CDT Narrative [facility] [employer] Sample received in lab. Single Antigen Antibody [...] method developed and validated by the [facility] HLA laboratory based on an FDA-approved IVD kit (Symtextcreen Single-Antigen, [employer], [place], [place]). All patient serum samples are pretreated with EDTA before the screen to prevent complement interference. Additional serum treatments, such as adsorption and DTT treatment, may be performed as indicated. Interpretive comments: Low risk: MFI [id number]. Moderate risk: MFI [id number]. Increased risk: MFI >/= 5000. The presence [...] antigens to avoid. Testing performed at the [facility], [address], [address]th floor, [place], [address]. [facility] # [id number]. Rosa Millan, Ph.D., Mechanical Maintenance Foreman, HLA Laboratory Wilmer Prescott M.D., Ph.D., Facilities Locator, HLA Laboratory Alma Payton, Ph.D., [place] Facilities Locator, [facility] Clinical Laboratories Current methodology and interpretive comments last revised on 11/15/2022. Salina Hector MD LAB BLOOD ORDERABLES Final Resul t Performing Organization Address City/[facility]/ZIP Co de Phone Number [facility] * HLA Antibody Screen by PRA or SAB per Schedule (Class I and Class II) (03/01/2025 10:00 AM CDT) Blood 03/01/2025 10:0 0 AM CDT Narrative [facility] [employer] Sample received in lab and stored. No testing performed at this time. Salina Hector MD LAB BLOOD ORDERABLES Final Resul t Performing Organization Address City/[facility]/ZIP Co de Phone Number [facility] * [...] Tc [facility] LAB BLOOD ORDERABLES Final Result [facility] Department [place] [address] * (ABNORMAL) Differential, auto (02/24/2025 9:50 AM CDT) Neutrophil abs 4.72 1.50 - 6.50 K/cumm Imm gran abs 0.02 0.00 - 0.10 K[facility] Lymphocyte abs 0.73(L) 0.80 - 3.30 K/cumm [facility] Monocyte abs 0.42 0.20 - 0.80 K/cumm [facility] Eosinophil abs 0.21 0.00 - 0.50 K/cumm [facility] Basophil abs 0.04 0.00 - 0.10 K/cumm [facility] Neutrophil pct 76.9 % [facility] Comment: Interpretive Data Percent cell count reference ranges are not reported, since discordance with absolute values may lead to misinterpretation of CBC data. Current Interpretive Data was last revised on 2018. Imm gran pct 0.3 % [facility] Comment: Interpretive Data Percent cell count reference ranges are not reported, since discordance with absolute values may lead to misinterpretation of CBC data. Current Interpretive Data was last revised on 2018. Lymphocyte pct 11.9 % [facility] Comment: Interpretive Data Percent cell count reference ranges are not reported, since discordance with absolute values may lead to misinterpretation of CBC data. Current Interpretive Data was last revised on 2018. Monocyte pct 6.8 % [facility] Comment: Interpretive Data Percent cell count reference ranges are not reported, since discordance with absolute values may lead to misinterpretation of CBC data. Current Interpretive Data was last revised on 2018. Eosinophil pct 3.4 % [facility] Comment: Interpretive Data Percent cell count reference ranges are not reported, since discordance with absolute values may lead to misinterpretation of CBC data. Current Interpretive Data was last revised on 2018. Basophil pct 0.7 % [facility] Comment: Interpretive Data Percent cell count reference ranges are not reported, since discordance with absolute values may lead to misinterpretation of CBC data. Current Interpretive Data was last revised on 2018. Blood 02/24/2025 9:50 AM CDT 02/24/2025 10:17 AM CDT Dasha Montez DO LAB BLOOD ORDERABLES Final Result [facility] Department [place] [address] * (ABNORMAL) CBC with auto differential (02/24/2025 9:50 AM CDT) WBC 6.14 3.80 - 9.90 K/cumm Hgb 12.5 11.9 - 15.5 g/dL [facility] Hct 39.5 35.6 - 45.5 % [facility] Plt 177 150 - 400 K/cumm [facility] MPV 10.8 9.1 - 12.3 fL [facility] RBC 4.37 3.90 - 5.20 M/cumm [facility] MCV 90.4 81.3 - 96.4 fL [facility] MCH 28.6 27.1 - 33.3 pg [facility] MCHC 31.6(L) 32.3 - 35.7 g/dL [facility] RDW CV 15.9(H) 11.1 - 14.9 % [facility] RDW SD 51.0(H) 35.7 - 48.1 fL [facility] NRBC abs 0.00 0.00 - 0.01 K/cumm [facility] Blood 02/24/2025 9:50 AM CDT 02/24/2025 10:17 AM CDT Dasha Montez LAB BLOOD ORDERABLES Final Result [facility] [place] [address] * (ABNORMAL) Basic metabolic panel (02/24/2025 9:50 AM CDT) Sodium 136 135 - 145 mmol/L Potassium, pl 5.0(H) 3.3 - 4.9 mmol/L [facility] Chloride 93(L) 97 - 110 mmol/L [facility] CO2 27 22 - 32 mmol/L [facility] Anion gap 16(H) 2 - 15 mmol/L [facility] BUN 43(H) 6 - 25 mg/dL [facility] Creatinine 11.83(H) 0.60 - 1.10 mg/dL [facility] Glucose 82 70 - 199 mg/dL [facility] Comment: Interpretive Data Fasting glucose >/= [...] Calcium 7.9(L) 8.5 - 10.3 mg/dL [facility] Blood 02/24/2025 9:50 AM CDT 02/24/2025 10:17 AM CDT Dasha Montez LAB BLOOD ORDERABLES Final Result [facility] Department [place] [address] * (ABNORMAL) eGFR (02/23/2025 11:43 PM CDT) Pathologist [facility] eGFR 3(L) >=60 mL/min/1. [...] Giordano MD LAB BLOOD ORDERABLES Final Result [facility] [place] [address] * [employer] clopidogrel (02/23/2025 11:43 PM CDT) [facility] [employer] clopidogrel 208 PRU Comment: Interpretive [...] ORDERABLES Fin al Result Performing Organization Address City/[facility] Co de Phone Number [facility] Department [place] [address] * (ABNORMAL) Phosphorus (02/23/2025 11:43 PM CDT) Pathologist [facility] Phosphorus, pl 7.6(H) 2.3 - 4.5 mg/dL Blood 02/23/2025 11:4 3 PM CDT 02/24/2025 12:22 AM CDT us Jaimie Giordano MD LAB BLOOD ORDERABLES Final Result Performing Organization Address [facility] Co de Phone Number [facility] [place] [address] * Magnesium (02/23/2025 11:43 PM CDT) Pathologist [facility] Magnesium 2.4 1.4 - 2.5 mg/dL Blood 02/23/2025 11:4 3 PM CDT 02/24/2025 12:22 AM CDT us Jaimie Giordano MD LAB BLOOD ORDERABLES Final Result Performing Organization Address City/[facility] Co de Phone Number [facility] [place] [address] * (ABNORMAL) Basic metabolic panel (02/23/2025 11:43 PM CDT) Sodium 133(L) 135 - 145 mmol/L Potassium, pl 4.9 3.3 - 4.9 mmol/L [facility] Chloride 95(L) 97 - 110 mmol/L [facility] CO2 27 22 - 32 mmol/L [facility] Anion gap 11 2 - 15 mmol/L [facility] BUN 52(H) 6 - 25 mg/dL [facility] Creatinine 11.94(H) 0.60 - 1.10 mg/dL [facility] Glucose 89 70 - 199 mg/dL [facility] Comment: Interpretive Data Fasting glucose >/= [...] Calcium 8.0(L) 8.5 - 10.3 mg/dL [facility] Blood 02/23/2025 11:4 3 PM CDT 02/24/2025 12:22 AM CDT us Jaimie Giordano MD LAB BLOOD ORDERABLES Final Result [facility] [place] [address] * LEFT HEART CATHETERIZATION WITH CORONARY ANGIOGRAPHY [...] 54 y.o. female : 1970 MR number: [id number] Date of Service: 02/23/2025 Postdoctoral Scientist: Luca Medrano MD Fellow: Sanket Quiroz MD [...] vein graft to her LAD and her [place] left main. She now presents for urgent cardiac catheterization PROCEDURE: The risks, benefits and alternatives of the procedures and moderate sedation were explained to the patient and informed consent was obtained. The patient was brought to the slabbing machine operator and placed on the table Bilateral groins [...] the LAD angiogram performed using a 6 Uzbek 3D RC Percutaneous coronary intervention performed on theSVG to the Proximal LAD. This was an ACC/AHA Type C. Initial Lesion Length 12mm and final lesion Length 20mm. Initial KAROLINA Flow 3 Final KAROLINA Flow 3. Equipment used: 6 3DRC, Gradwell Radford IVUS Catheter, Seam Taper Machine 50 wire, 0.9 mm laser atherectomy catheter [...] it was extremely difficult. We used a Seam Taper Machine 50 wire with extreme difficulty wire through [...] 319(H) 123 - 168 sec POC Performer [id number] [facility] POC Device Number [id number] [facility] Blood 02/23/2025 1:41 PM CDT 02/23/2025 1:41 PM CDT Result [facility] Ellie Saenz MD LAB POCT ORDERABLES - DE VICE Final Result [facility] [place] [address] * (ABNORMAL) POCT Activated clotting time, low range (02/23/2025 12:35 PM CDT) ACT 351(H) 123 - 168 sec POC Performer [id number] [facility] POC Device Number [id number] [facility] Blood 02/23/2025 12:3 5 PM CDT 02/23/2025 12:35 PM CDT Ellie Saenz MD LAB POCT ORDERABLES - DE VICE Final Result Performing Organization Address [facility] Co de Phone Number [facility] [employer] [facility] [address] * (ABNORMAL) aPTT (02/23/2025 6:36 AM CDT) [...] BLOOD ORDERABLES Final Result Performing Organization Address [facility] Co de Phone Number [facility] Department [place] [address] * (ABNORMAL) eGFR (02/22/2025 11:07 PM CDT) [...] BLOOD ORDERABLES Final Result Performing Organization Address [facility] Co de Phone Number [facility] [place] [address] * (ABNORMAL) aPTT (02/22/2025 11:07 PM CDT) [...] ORDERABLES Fin al Result Performing Organization Address [facility] [place] [address] * (ABNORMAL) Phosphorus (02/22/2025 11:07 PM CDT) Phosphorus, pl 7.2(H) 2.3 - 4.5 mg/dL Blood 02/22/2025 11:0 7 PM CDT 02/22/2025 11:50 PM CDT Jaimie Giordano MD LAB BLOOD ORDERABLES Final Result Performing Organization Address City/[facility] Co de Phone Number [facility] [place] [address] * Magnesium (02/22/2025 11:07 PM CDT) Magnesium 2.5 1.4 - 2.5 mg/dL Blood 02/22/2025 11:0 7 PM CDT 02/22/2025 11:50 PM CDT us Jaimie Giordano MD LAB BLOOD ORDERABLES Final Result [facility] [place] [address] * (ABNORMAL) Basic metabolic panel (02/22/2025 11:07 PM CDT) Pathologist [facility] Sodium 134(L) 135 - 145 mmol/L Potassium, pl 4.5 3.3 - 4.9 mmol/L [facility] Chloride 95(L) 97 - 110 mmol/L [facility] CO2 28 22 - 32 mmol/L [facility] Anion gap 11 2 - 15 mmol/L [facility] BUN 56(H) 6 - 25 mg/dL [facility] Creatinine 11.97(H) 0.60 - 1.10 mg/dL [facility] Glucose 104 70 - 199 mg/dL [facility] Comment: Interpretive Data Fasting glucose >/= [...] Calcium 7.8(L) 8.5 - 10.3 mg/dL [facility] Blood 02/22/2025 11:0 7 PM CDT 02/22/2025 11:50 PM CDT us Jaimie Giordano MD LAB BLOOD ORDERABLES Final Result [facility] [place] [place] [address] * (ABNORMAL) aPTT (02/22/2025 2:25 PM CDT) Pathologist [facility] aPTT 54(H) 28 - 38 sec Comment: Interpretive Data Heparin therapeutic range: 66.0 - 100.0 seconds. Range based on correlation with therapeutic heparin activity range of 0.3 - 0.7 Units/mL. Current interpretive data was last revised on 2023. Blood 02/22/2025 2:25 PM CDT 02/22/2025 2:59 PM CDT Dasha Montez DO LAB BLOOD ORDERABLES Final Result Performing Organization Address City/State/[facility] Co de Phone Number [facility] [place] [place] [address] * TRANSTHORACIC ECHO (TTE) COMPLETE W DOPPLER/CF W CONTRAST (02/22/2025 1:39 PM CDT) Pathologist [facility] EF Mod BP 51 % CONS SCIMAGE Anatomical Region Laterality Modality Ultrasound 02/22/2025 12:3 8 PM CDT Narrative 02/22/2025 2:49 PM CDT [facility] Cardiac [place] [address] Transthoracic Echocardiographic Report Patient Name: ESTUARDO COPELAND M : 1970 (54y 3m) Gender: F Study Date: 02/22/2025 12:38:48 PM Ht(Inch): 64 Wt(Lb): 123.9 BSA: 1.59 Supervisor Title: Marisol Arciniega RDCS, [facility] Location: [id number] Order Provider: ELLIE SAENZ Heart Rate: 75 [...] flow reversal in the hepatic veins. Mild VA. Est. PASP 40-45 mm Hg. 7. Physiologic [...] Procedure Note Rc Koehler MD - 02/22/2025 [facility] Cardiac [place] [address] Transthoracic Echocardiographic Report Patient Name: ESTUARDO COPELAND M : 1970 (54y 3m) Gender: F Study Date: 02/22/2025 12:38:48 PM Ht(Inch): 64 Wt(Lb): 123.9 BSA: 1.59 Supervisor Title: Marisol Arciniega RD, [facility] Location: [id number] OrderProvider: ELLIE SAENZ Heart Rate: 75 BMI: [...] systolic flow reversal in the hepatic veins.Mild VA. Est. PASP 40-45 mm Hg. 7. Physiologic [...] [ 2.70 - 3.70 ] MV Decel [id number] msec [ 104.00 - 258.00 ] Ao [...] 12 lead (02/22/2025 9:14 AM CDT) Pathologist [facility] Ventricular Rate EKG/Min 80 BPM [facility] Atrial Rate 80 BPM [facility] VA-Interval (MSEC) 96 ms [facility] QRS-Interval (MSEC) 90 ms [facility] QT-Interval (MSEC) 412 ms [facility] QTc 475 ms [facility] P [place] 90 degrees [facility] R [place] -30 degrees [facility] T [place] 133 degrees [facility] Diagnosis Sinus rhythm with sinus arrhythmia with short VA Left axis deviation Left ventricular hypertrophy ( Romhilt-Pierce ) Cannot rule out Septal infarct (cited on 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-FEB-2025) ST & T wave abnormality, consider lateral ischemia Abnormal ECG When compared with ECG of 22-FEB-2025 01:51, (unconfirmed) Sinus rhythm has replaced Atrial fibrillation Confirmed by HARJINDER HANDY M.D ([id number]) on 03/05/2025 11:42:44 AM [facility] 02/22/2025 9:14 AM CDT 03/05/2025 11:42 AM CDT us Jaimie Giordano MD ECG ORDERABLES Victoria l Result [facility] * (ABNORMAL) Troponin I high-sensitivity 4-hour (02/22/2025 6:24 AM CDT) Trop I hs 1,868(C) <=17 ng/L Comment: Previous critical value noted within 48 hours ago. Interpretive Data For further hscTnI resources including the diagnostic algorithm and an aid in interpretation, copy and paste this link: https://bjhlab.testcatalog.org/show/hsTrop-1 Current Interpretive Data last revised 2020. Trop I hs pct delta -19(C) % [facility] Comment:Previous critical va lue noted within 48 hours ago. Trop I hs interp Significa nt(C) [facility] Comment:Previous critical va lue noted within 48 hours ago. Blood 02/22/2025 6:24 AM CDT 02/22/2025 6:48 AM CDT us Milton Rubio MD LAB BLOOD ORDERABLES Final Resul t Performing Organization Address City/State/[facility] Co de Phone Number [facility] Department [place] [address] * (ABNORMAL) Troponin I high-sensitivity 2-hour (02/22/2025 4:51 AM CDT) Trop I hs 2,146(C) <=17 ng/L Comment: Previous critical value noted within 48 hours ago. Interpretive Data For further hscTnI resources including the diagnostic algorithm and an aid in interpretation, copy and paste this link: https://bjhlab.testcatalog.org/show/hsTrop-1 Current Interpretive Data last revised 2020. Trop I hs pct delta -7 % [facility] Trop I hs interp Equivocal [facility] Blood 02/22/2025 4:51 AM CDT 02/22/2025 5:26 AM CDT Milton Rubio MD LAB BLOOD ORDERABLES Final Resul t Performing Organization Address [facility] Co de Phone Number [facility] Department [place] [address] * (ABNORMAL) aPTT (02/22/2025 4:51 AM CDT) [...] ORDERABLES Final Resul t Performing Organization Address [facility] Co de Phone Number [facility] Department [place] [address] * Infection Prevention Anthony auris PCR, surveillance Axilla/Groin (02/22/2025 2:05 AM CDT) Anthony auris DNA Not Detected Not Detected [facility] Comment: Interpretive Data Testing performed by [facility] using the Pbalo estelle 6800 Anthony auris assay. This assay detects DNA from Anthony auris using Real-Time PCR. This assay is laboratory developed and is not cleared by the [place] Food and Drug Administration. The performance characteristics have been verified by the [facility]. Axilla/Groin 02/22/2025 2:05 AM CDT 02/22/2025 3:14 AM CDT Narrative [facility] - 02/22/2025 2:38 PM CDT Order placed by [facility] due to ring surveillance. us Instant Order Generic Provider LAB MICROBIOLOGY - GENERAL ORDERABLES Final Result [facility] Department [place] [address] [facility] * (ABNORMAL) Troponin I high-sensitivity series (baseline, 2hr, 4hr, 6hr) (02/22/2025 2:05 AM CDT) Pathologist [facility] Trop I hs 2,317(C) <=17 ng/L Comment: Previous critical value noted within 48 hours ago. Interpretive Data For further hscTnI resources including the diagnostic algorithm and an aid in interpretation, copy and paste this link: https://bjhlab.testcatalog.org/show/hsTrop-1 Current Interpretive Data last revised 2020. Blood 02/22/2025 2:05 AM CDT 02/22/2025 2:57 AM CDT us Milton Rubio MD LAB BLOOD ORDERABLES Final Resul t [facility] [place] [address] * (ABNORMAL) eGFR (02/22/2025 2:05 AM CDT) [...] ORDERABLES Final Resul t Performing Organization Address [facility] Co de Phone Number [facility] Department of [facility] [address] * Magnesium (02/22/2025 2:05 AM CDT) Magnesium 2.5 1.4 - 2.5 mg/dL Blood 02/22/2025 2:05 AM CDT 02/22/2025 2:58 AM CDT us Milton Rubio MD LAB BLOOD ORDERABLES Final Resul t Performing Organization Address [facility] de Phone Number [facility] Department [place] [address] * (ABNORMAL) Comprehensive metabolic panel (02/22/2025 2:05 AM CDT) Sodium 138 135 - 145 mmol/L Potassium, pl 4.3 3.3 - 4.9 mmol/L [facility] Chloride 95(L) 97 - 110 mmol/L [facility] CO2 26 22 - 32 mmol/L [facility] Anion gap 17(H) 2 - 15 mmol/L [facility] BUN 55(H) 6 - 25 mg/dL [facility] Creatinine 12.63(H) 0.60 - 1.10 mg/dL [facility] Glucose 99 70 - 199 mg/dL [facility] Comment: Interpretive Data Fasting glucose >/= [...] Calcium 8.1(L) 8.5 - 10.3 mg/dL [facility] Bilirubin, total 0.2 0.1 - 1.2 mg/dL [facility] Protein, pl 6.0(L) 6.5 - 8.5 g/dL [facility] Albumin 2.6(L) 3.5 - 5.0 g/dL [facility] Alk phos 59 40 - 130 Units/L [facility] ALT 14 7 - 45 Units/L [facility] AST 20 10 - 45 Units/L [facility] Blood 02/22/2025 2:05 AM CDT 02/22/2025 2:58 AM CDT us Milton Rubio MD LAB BLOOD ORDERABLES Final Resul t [facility] Department [place] [address] * ECG 12 lead (02/22/2025 1:45 AM CDT) Ventricular Rate EKG/Min 137 BPM [facility] QRS-Interval (MSEC) 94 ms [facility] QT-Interval (MSEC) 316 ms [facility] QTc 477 ms [facility] R [place] -41 degrees [facility] T [place] 137 degrees [facility] Diagnosis Age and gender specific ECG analysis Sinus tachycardia Anteroseptal ST-elevation Poor R-wave progression in the precordial leads Left axis deviation Minimal voltage criteria for LVH, may be normal variant ( [place] product ) Anteroseptal infarct , possibly acute T wave abnormality, consider lateral ischemia Abnormal ECG No previous ECGs available Confirmed by HARJINDER HANDY M.D ([id number]) on 02/23/2025 3:10:53 PM [facility] 02/22/2025 1:45 AM CDT 02/23/2025 3:10 PM CDT us Jaimie Giordano MD ECG ORDERABLES Victoria l Result [facility] [place] * Hepatitis C antibody Blood (01/28/2025 [...] - GENERAL ORD ERABLES Final Result [facility] Department of Laboratories [place], [place] [id number] from Last 3 Months or Most Recently Relevant to Health Maintenance
--- OUTSIDE RECORDS SUMMARY | 2025-05-25 05:40 | XMS_ITS | Clinical Summary ---
Author Organization [facility] Address [address] [place] [id number] Phone Care Team Providers Care Triage Nurse Name Role Phone ScarlettmelanyPal ibarra DO Primary Care Provider [phone] Allergies Active Allergy Reactions Criticality Noted Date [...] on file Legal Sex Female 9:07 AM [facility] Gender Identity Not on file Sexual Orientation Not on file Last Filed Vital Signs Vital Sign Reading Time Taken Comments Blood Pressure 122/70 12/22/2021 9:43 PM PRINT SHOP MANAGER Pulse 72 12/22/2021 9:43 PM PRINT SHOP MANAGER Temperature 36.2 C (97.2 F) 12/22/2021 9:43 PM PRINT SHOP MANAGER Respiratory Rate - - Oxygen Saturation - - Inhaled Oxygen Concentration - - Weight 50.3 kg (111 lb) 12/22/2021 9:43 PM PRINT SHOP MANAGER Height 162.6 cm (5' 4) 12/22/2021 9:43 PM PRINT SHOP MANAGER Body Mass Index 19.05 12/22/2021 9:43 PM PRINT SHOP MANAGER Plan of Treatment Health Maintenance Due Date Last Done Comments Influenza Vaccine (#1) 2025 10/21/2017 Insurance [place]ICAID - [place] [facility] Care Teams Triage Nurse Relationship Specialty Start Date End Date Pal Downey DO [address] [place] [id number] PCP - General Internal Medicine 02/04/19
--- OUTSIDE RECORDS SUMMARY | 2025-05-25 05:40 | XMS_ITS | Encounter Summary ---
Author Organization [facility] Address [address] [place] [address] Phone Care Team Providers Care Powerbuilder Name Role Phone Quinton Rowan MD Unavailable [phone] Pal Downey DO Primary Care Provider [phone] Tami Flores RN Unavailable Cricket Escalante MD Unavailable Gael Sprague MD PhD Unavailable Brad Turner MD Unavailable [phone] Margarita Montoya MD Unavailable Luca Lott MD Unavailable Pb Galloway MD Unavailable [phone] Felipe Gerber MD Unavailable [phone] Claire Rosales WELDING ROD COATER Unavailable Claire Rosales WELDING ROD COATER Unavailable [phone] Encounter Details Date Type [...] on file Legal Sex Female 4: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 Gender Identity Female 01/16/2024 11:18 AM [...] documented as of this encounter Care Teams Powerbuilder Relationship Specialty Start Date End Date Pal Downey DO PCP - General Internal Medicine 01/25/21 Quinton Rowan MD Referring Physician Cardiology 01/09/19 Tami Flores, TONO [address] [address] Registered Nurse Assistant Professor Of Sociology 01/25/21 Cricket Escalante MD [address] [address] Referring Physician Nephrology 03/24/21 Gael Sprague MD PhD [address] [facility] [address] [place] [address] Fellow Endocrinology Diabetes & Metabolism 03/24/21 Brad Turner MD [address] [address] Consulting Physician Obstetrics and Gynecology 03/24/21 Margarita Montoya MD [address] [address] Consulting Physician Trauma Surgery 12/27/21 Luca Lott MD [address] [address] Consulting Physician Cardiology 08/03/22 Pb Galloway MD [address] [address] Cardiothoracic Surgery 05/25/24 Felipe Gerber MD [address] [address] Consulting Physician Cardiology 05/25/24 Claire Rosales LCSW [address] [facility] Mailstop [phone] [place] [address] SHOP Outpatient Research Assistant 02/25/25 03/01/25 Claire Rosales LCSW [address] [facility] ([facility] Mailstop [phone] [place] [address] SHOP Outpatient Research Assistant 05/10/25 05/18/25 documented as of this encounter
--- OUTSIDE RECORDS SUMMARY | 2025-05-25 05:40 | XMS_ITS | Clinical Summary ---
Author Organization [facility] Address [address] 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 This disclosure is being madepursuant to the Care Everywhere program and may not contain all information available regarding this patient. Last updated 18.[facility] Allergies Active Allergy Reactions Criticality Noted Date [...] on file Legal Sex Female 5:36 PM PILLAR MAN Gender Identity Not on file Sexual Orientation Not on file Last Filed Vital Signs Vital Sign Reading Time Taken Comments Blood Pressure 145/91 09/06/2016 9:59 AM PILLAR MAN Pulse 79 09/06/2016 9:59 AM PILLAR MAN Temperature 36.4 C (97.5 F) 12/23/2015 3:20 PM PILLAR MAN Respiratory Rate 12 09/06/2016 9:59 AM PILLAR MAN Oxygen Saturation 100% 12/23/2015 3:20 PM PILLAR MAN Inhaled Oxygen Concentration - - Weight 60.8 kg (134 lb) 09/06/2016 9:59 AM PILLAR MAN Height 162.6 cm (5' 4) 09/06/2016 9:59 AM PILLAR MAN Body Mass Index 23 09/06/2016 9:59 AM PILLAR MAN Plan of Treatment Health Maintenance Due Date [...] All Dates) Name:Ginger Copeland Relation to Subscriber:Self Name:JAYLINClareCOILNA Payer ID:Not on file Group ID:Not on file Type:Medicaid Address: [place] [id number] MEDICARE SELF PAY NO INSURANCE Member Subscriber Plan / Payer (Ef fective for All Dates) Name:Ginger Copeland Member ID:Not on file Relation to Subscriber:Not on file Name:GINGER COPELAND Subscriber ID:Not on file (Home) Address: [address] [place] [id number] Payer ID:Not on file Group ID:Not on file Type:Self Pay Address: [facility] Care 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
--- OUTSIDE RECORDS SUMMARY | 2025-05-25 05:40 | XMS_ITS | Clinical Summary ---
Author Organization [facility] Address [address] [place] [address] Care Team Providers Care Box Gluer Name Role Phone Quinton Rowan MD Unavailable Pal Downey DO Primary Care Provider [phone] Tami Flores RN Unavailable Cricket Escalante MD Unavailable [phone] Gael Sprague MD PhD Unavailable Brad Turner MD Unavailable [phone] Margarita Montoya MD Unavailable [phone] Luca Medrano MD Unavailable Pb Galloway MD Unavailable Felipe Gerber MD Unavailable [phone] Allergies Active Allergy Reactions Criticality Noted [...] no reactions Penicillins Anaphylaxis,Rash,Un known High 04/29/2015 Jjnmcld-Gej-Rby Reductase Inhibitors Muscle pain Medium 02/20/2025 Trialed [...] 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 [facility] admit 04/22-04/24 for afib with work up TSH wnl, hyperkalemic, troponins flat. Reports palpitations stopped last week. 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 [facility] admit 04/22-04/24 for afib with work up TSH wnl, hyperkalemic, troponins flat. Reports palpitations stopped last week. Planned direct admission for amiodarone loading, however, patient is no longer wanting to complete this (patient has appropriate concerns about fci side effects of Amio, particularly with her thyroid disease) - Continue home apixaban BID - EP consulted -> recommended device interrogation (completed) and TTE - Telemetry monitoring Assessment & Plan (05/05/2025 5:31 PM CDT): AT/AF burden 0.8% per device transmission. [facility] admit 04/22-04/24 for afib with work up TSH wnl, hyperkalemic, troponins flat. Reports palpitations stopped last week. Planned direct admission for amiodarone loading, however, patient is no longer wanting to complete this - Continue home apixaban BID - EP consulted -> recommended device interrogation (completed) and TTE - Telemetry monitoring Assessment & Plan (05/04/2025 10:43 PM CDT): AT/AF burden 0.8% per device transmission. [facility] admit 04/22-04/24 for afib with work up [...] PM CDT): s/p TAVR 06/2024. Follows with [facility]. Assessment & Plan (02/05/2025 3:15 PM CDT): [...] (02/01/2022): Added automatically from request for surgery [id number] Assessment & Plan (02/05/2025 3:15 PM CDT): Undergoing pre transplant evaluation. We will review with Dr. Medrano regarding possible candidacy for transplant list given recent interventions. 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 Escalante Continue lasix 40 mg [...] kidney disease, baseline Cr 2.4-2.6. F/b OSH safety and security officer. Apparently discussions for potential need for renal txp being discussed. - Cr at baseline on adm - avoid nephrotoxins, renally dose meds - continue calcitriol 0.5 mcg/day - Cr 2.75, received pre-cath hydration, stable 2.7 Headache 05/02/2016 Moderate COPD (chronic obstr uctive pulmonary disease) ([facility]) 11/02/2015 Assessment & Plan (05/07/2025 [...] AM CDT): Alexis TAVR 05/21 Followed by [facility], Dr. Medrano. CT TAVR [...] a candidate for intervention (declined by [facility], [facility]) Assessment & Plan (05/17/2019 9:28 [...] AV. Referred to valve team by primary labeling strategist Dr. Rowan. Seen 02/02 by valve team [...] around 2.4 Dr Escalante is her home safety and security officer Assessment & Plan (02/23/2019 12:20 PM CDT): Pt above POW by 2 kg. Lasix on hold due to elevation in Creatinine Baseline creat is around 2.4 Dr Escalante is her home safety and security officer Agitation requiring sedation protocol 02/14/2019 02/23/2019 Acute [...] she had reactions to (?). Per OSH safety and security officer's note in Care Everywhere, pt tried metoprolol [...] Care Team Description 05/19/2025 SHOP/CHAP Subsequent Outreach [facility] OP CASE MANAGEMENT [address] [place] [address] Claire Rosales LCSW 05/13/2025 SHOP/CHAP Subsequent Outreach [facility] OP CASE MANAGEMENT [address] [place] [address] Claire Rosales LCSW 05/12/2025 Telephone [facility] Cardiology [address] [facility] Advanced Medicine 8th [place] [address] [place] [address] Luca Medrano MD 05/12/2025 Telephone [facility] Cardiology [address] [facility] Medical Office Building [address] [place] [address] Luca Medrano MD [facility] 05/12/2025 Telephone [facility] Heart [facility] [place] [address] [place] [address] Reagan Vences MD 05/11/2025 12:55 PM CDT - 05/11/2025 2:25 PM CDT Surgery [facility] [place] [address] [place] [address] Luca Medrano MD LEFT HEART CATHETERIZATION WITH CORONARY ANGIOGRAPHY AND WITH OR WITHOUT LEFT VENTRICULOGRAM [id number] 05/11/2025 11:13 AM CDT - 05/11/2025 7:34 PM CDT Hospital [facility] [place] [address] [place] [address] Luca Medrano MD Chronic heart failure with preserved ejection fraction (HCC) [I50.32] (Primary Dx); Coronary artery disease involving chickahominy indian tribe coronary artery of chickahominy indian tribe heart without angina pectoris Discharge Disposition: Discharge to home or self care 05/10/2025 SHOP/CHAP Initial Outreach [facility] OP CASE MANAGEMENT [address] [place] [address] Claire Rosales LCSW 05/10/2025 SHOP/CHAP Initial Eligibility Review [facility] OP CASE MANAGEMENT [address] [place] [address] Claire Rosales LCSW 05/07/2025 Telephone [facility] Cardiology [facility] [facility] Advanced Medicine 8th [place] [address] [place] [address] Luca Medrano MD 05/04/2025 7:27 PM CDT - 05/07/2025 5:52 PM CDT Hospital Encounter [facility] [address] [place] [address] Kalen Villegas MD PhD [facility] MD Tirso Mejia, Ashley Farnsworth MD Discharge Disposition: Discharge to home or self care 05/04/2025 Telephone [facility] Bed Planning [address] [place] [address] Wiley Pulliam, information assistant Notification 04/29/2025 Orders Only [facility] Cardiology [facility] Building [address] [place] [address] Lane Ramos MD PhD S/P placement of cardiac pacemaker; Sick sinus syndrome (HCC) 04/28/2025 Telephone [facility] Cardiology [facility] [facility] Advanced Medicine 8th [place] [address] [place] [address] Lane Ramos MD PhD 04/27/2025 Orders Only [facility] Cardiology [address] [place] [address] Eduin Springer MD 04/26/2025 Telephone [facility] Cardiology [address] [place] [address] Advanced Medicine 8th [place] [address] [place] [address] Luca Medrano MD 04/23/2025 Orders Only [address] Building [address] [place] [address] Lane Ramos MD PhD 04/20/2025 2:00 PM CDT Ancillary Procedure [facility] [address] [place] [address] [address] [place] [address] Palpitations 04/20/2025 10:00 AM CDT - 04/20/2025 11:59 PM CDT Hospital Encounter [address] [address] ESRD (end stage renal disease) (HCC) Discharge Disposition: Discharge to home or self care 04/20/2025 Orders Only [facility] Cardiology [address] Medical Office Building [address] [place] [address] Luca Medrano MD Palpitations (Primary Dx) 04/07/2025 11:30 AM CDT Office Visit [facility] Cardiology [address] [facility] Medical Office Building [address] [place] [address] Luca Medrano MD Nonrheumatic aortic valve stenosis (Primary Dx); Coronary artery disease involving chickahominy indian tribe coronary artery of chickahominy indian tribe heart without angina pectoris 04/07/2025 Telephone [facility] and [facility] Transplant Kidney [address] [facility] [address] Mailstop [phone] [place] [address] Tiarra Mcdermott 04/07/2025 Telephone [facility] and [facility] Transplant Kidney [address] [facility] [address] Mailstop [phone] [place] [address] Tami Flores, RN 03/27/2025 Orders Only [facility] Cardiology [address] [facility] 8th [place] [address] [place] [address] Claire Mcnally, RN 03/25/2025 10:00 AM CDT - 03/25/2025 11:59 PM CDT Hospital Encounter [facility] [address] [place] [address] ESRD (end stage renal disease) ([facility]) Discharge Disposition: Discharge to home or self care 03/02/2025 SHOP/CHAP Initial Outreach [facility] OP CASE MANAGEMENT [address] [place] [address] Claire Rosales LCSW 03/01/2025 10:00 AM CDT - 03/01/2025 11:59 PM CDT Hospital Encounter [address] [address] ESRD (end stage renal disease) (HCC) Discharge Disposition: Discharge to home or self care 02/26/2025 SHOP/CHAP Initial Outreach [facility] OP CASE MANAGEMENT [address] [place] [address] Claire Rosales LCSW 02/25/2025 SHOP/CHAP Initial Outreach [facility] OP CASE MANAGEMENT [address] [place] [address] Claire Rosales LCSW 02/25/2025 SHOP/CHAP Initial Eligibility Review [facility] OP CASE MANAGEMENT [address] [place] [address] Claire Rosales LCSW 02/23/2025 11:33 AM CDT - 02/23/2025 12:53 PM CDT Surgery [facility] [address] [place] [address] Luca Medrano MD LEFT HEART CATHETERIZATION WITH CORONARY ANGIOGRAPHY AND WITH OR WITHOUT LEFT VENTRICULOGRAM [id number] 02/20/2025 8:07 PM CDT - 02/24/2025 3:54 PM CDT Hospital Encounter [address] [address] Elvin Giordano, MD Dany Nails, Ellie Hahn MD Acute coronary syndrome (HCC) (Primary Dx); Chest pain [R07.9]; Coronary artery disease involving chickahominy indian tribe coronary artery of chickahominy indian tribe heart without angina pectoris [I25.10] Discharge [...] Procedure: PCI KARINA MAJOR CORONARY C9600 - 42530; Surgeon: Luca Medrano MD; Location: [facility] CARDIAC MERCHANDISE ADJUSTMENT CLERK; Service: Cardiovascular; Laterality: N/A; Medical devices from this surgery are in the Medical Devices section. CARDIAC CATHETERIZATION 02/23/2025 N/A Procedure: LEFT HEART CATHETERIZATION WITH CORONARY ANGIOGRAPHY AND WITH OR WITHOUT LEFT VENTRICULOGRAM [id number]; Surgeon: Luca Medrano MD; Location: [facility] CARDIAC MERCHANDISE ADJUSTMENT CLERK; Service: Cardiovascular; Laterality: N/A; Medical devices from this surgery are in the Medical Devices section. CARDIAC CATHETERIZATION 05/11/2025 N/A Procedure: LEFT HEART CATHETERIZATION WITH CORONARY ANGIOGRAPHY AND WITH OR WITHOUT LEFT VENTRICULOGRAM [id number]; Surgeon: Luca Medrano MD; Location: [facility] CARDIAC MERCHANDISE ADJUSTMENT CLERK; Service: Cardiovascular; Laterality: N/A; Medical devices from this surgery are in the Medical Devices section. Medical History Medical History Date Comments Hypertension Essential Thyroid mass s/p resection Coronary artery disease invo lving chickahominy indian tribe heart 02/07/2019 Added automatically from req uest for surgery [id number] (LAD, LCA) Volume overload 02/14/2019 Leukocytosis 02/21/2019 [...] ESRD on peritoneal dialysis (HCC) Heart murmur LA (myocardial infarction) (HCC) CHF (congestive heart failure) ([facility]) Nausea 05/10/2019 Aortic valve [...] = 0.6 oz pur e alcohol) occasional [employer] Utilities Answer Date Recorded In the past 12 months has th e [employer], gas, oil, or water [employer] threatened to shut off services in your home? Patient declined 05/10/2025 Social Connection and Isolation Panel [NHANES] A nswer Date Recorded In a typical week, how many times do you talk on the phone with family, friends, or neighbors? Patient declined 05/10/2025 How often do you get togethe r with friends or relatives? Patient declined 05/10/2025 How often do you attend presybeterian or latter day serv ices? Patient declined 05/10/2025 Do you belong to any clubs o r organizations such as presybeterian groups, unions, fraternal or athletic groups, or [...] time in the past 12 m [facility], were you homeless or living in a correction (including now)? Patient declined 05/10/2025 Personal Safety Answer Date Recorded Have you ever been in or are you currently in a harmful physical or emotional relationship or is someone making you feel afraid or unsafe? 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 Gender Identity Female 01/16/2024 11:18 AM [...] TRANSPLANT KIDNEY ESRD (end stage renal disease) ([facility]) Health Maintenance Due Date Last Done Comments [...] 03/06/2023, 05/04/2021 Medical Devices Implanted Type Area Buckle And Button Maker Device Identifier Shelf Expiration Date Model / Serial / Lot Angio-Seal Evolution 6fr Vascular Closure [id number] - [id number] - [id number] Implanted:Qty: 1 on 03/09/2022 by Luca Medrano MD at [facility] Collagen Right: Femoral Ter[employer]o [employer] Pam 09/19/2022 [id number] / [id number] / [id number] [employer] Pam Angio-Seal Vip 6fr Closere Device 885537 - [id number] - [id number] Implanted:Qty: 1 on 07/24/2022 by Luca Medrano MD at [facility] Collagen [employer] Pam 03/20/2023 [id number] / [id number] / [id number] [employer] Pam Angio-Seal Vip 6fr Closere Device 363684 - [id number] - [id number] Implanted:Qty: 1 on 05/21/2024 at [facility] Collagen Right: Common Femoral Artery [employer] Pam 01/09/2025 [id number] / [id number] / [id number] [employer] Pam Angio-Seal Vip Bondek-Plus 8fr .038in 70cm Hemostatic Latex Free 696956 - [id number] - [id number] Implanted:Qty: 1 on 05/21/2024 by Felipe Gerber MD at [facility] Collagen Right: Common Femoral Artery [employer] Pam 01/06/2025 058984 / [id number] / [id number] [employer] Pam Angio-Seal Vip 6fr Closere Device 200881 - [id number] - [id number] Implanted:Qty: 1 on 02/23/2025 by Luca Medrano MD at [facility] Collagen Dynamic Yield Pam 06/15/2025 407723 / [id number] / [id number] Medtronic Cardiac Rhythm Mgmt 5076-52 Capsurefix Novus 6.2fr 2mm 52cm Bipolar Screw In Implantable Latex Free - [id number] - [id number] Implanted:Qty: 1 on 05/15/[address] Ramos MD PhD at [facility] Lead Medtronic Inc 03/11/2021 5076-52 / [id number] / Medtronic Cardiac Rhythm Mgmt 5076-45 Capsurefix Novus 6.2fr 2mm 45cm Bipolar Screw In Implantable - [id number] - [id number] Implanted:Qty: 1 on 05/15/[address] Ramos MD PhD at [facility] Lead Medtronic Inc 03/30/2021 5076-45 / [id number] / ClearStar 8975-45-2451-01 Linear 7.5fr 6in Insertion Kit City Surveyor Introducer Sheath - [id number] Implanted:Qty: 1 on 02/10/2019 by Luca Medrano MD at [facility] Other - see comments ClearStar 0684-00 -0480-0 1 / / Description:IABP Medtronic Inc [id number] [place] Curl Cath Beta-Cap Holden 15fr 57cm 2 Cuff Clamp Adapter - S0 - [id number] Implanted:Qty: 1 on 11/21/2021 by Carlos Kamara MD at [facility] Other - see comments N/A: Abdomen Medtronic Inc 11/30/2022 8811-31 3015 / 0 / [id number] Medtronic Cardiac Rhythm Mgmt W1dr01 Tereza Wirelessly Pacemaker Cardiac - [id number] - [id number] Implanted:Qty: 1 on 05/15/[address] Ramos MD PhD at [facility] Pacemaker Medtronic Inc [id number] 09/17/2020 W1DR01 / [id number] / Jamil [employer] Valve Aortic Trnscath Brown 3 Ultra Resilia 20mm 6262suw89t - [id number] - [id number] Implanted:Qty: 1 on 05/21/2024 by Felipe Gerber MD at [facility] Prosthetic Valve N/A: Aortic Valve [employer] 02/27/2027 [id number] 20A / [id number] / Medtronic Inc Resolute [place] 4mm 2.1-2.7fr 12mm 140cm Rapid Exchange Radiopaque [id number] - [id number] - [id number] Implanted:Qty: 1 on 03/09/2022 by Luca Medrano MD at [facility] Stent Left: Coronary Medtronic Inc 12/06/2022 RONYX40 012UX / [id number] / [id number] Description:LAD Biotronik Inc Stent Coronary De Rx Cocr Ors Msn 4.0x15mm 681090 - [id number] - [id number] Implanted:Qty: 1 on 07/24/2022 by Luca Medrano MD at [facility] Stent Biotronik Inc 09/05/2023 028111 / [id number] / [id number] Medtronic Card Vasc Surgery 4.0 X 15mm Clive [place] Rx Coronary Stent Ecxpli93182qf - [id number] - [id number] Implanted:Qty: 1 on 11/19/2024 by Luca Medrano MD at [facility] Stent N/A: Saphenous Vein Graft Medtronic Card Vasc Surgery 05/05/2027 ONYXNG4 0015UX / [id number] / [id number] Medtronic Card Vasc Surgery 2.50 X 12mm Clive [place] Rx Coronary Stent [id number] - [id number] - [id number] Implanted:Qty: 1 on 12/25/2024 by Luca Medrano MD at [facility] Stent Medtronic Card Vasc Surgery 06/03/2027 ONYXNG2 [id number] / [id number] / [id number] [place] [employer] Pam Synergy Xd Monorail 3mm 20mm 144cm Delivery System 1 Access Port [id number] - [id number] - [id number] Implanted:Qty: 1 on 02/23/2025 by Luca Medrano MD at [facility] Stent [place] [employer] Pam 06/08/2026 [id number] / [id number] / [id number] Painter Vascular System Closure Repair Femoral Artery Suture Mediated Perclose Prostyle 29793-78 - [id number] - [id number] Implanted:Qty: 1 on 05/21/2024 by Felipe Gerber MD at [facility] Vascular Closure Device Left: Common Femoral Artery Painter Vascular 02/17/2026 41404-8 3 / [id number] / [id number] Terumo Medical Pam Angio-Seal Vip 6fr Closere Device 046668 - [id number] - [id number] Implanted:Qty: 1 on 11/19/2024 by Luca Medrano MD at [facility] Vascular Closure Device N/A: Saphenous Vein Graft [employer] Medical Pam 04/29/2025 953857 / [id number] / [id number] Terumo Medical Pam Angio-Seal Vip 6fr Closere Device 530602 - [id number] - [id number] Implanted:Qty: 1 on 12/25/2024 by Sanket Quiroz MD at [facility] Vascular Closure Device Right: Common Femoral Artery [employer] Pam 06/30/2025 035784 / [id number] / [id number] Description:RFA [employer] Pam Angio-Seal Vip Bondek-Plus 8fr .038in 70cm Hemostatic Latex Free 889172 - [id number] - [id number] Implanted:Qty: 1 on 12/25/2024 by Sanket Quiroz MD at [facility] Vascular Closure Device Right: Femoral Vein [employer] Pam 07/21/2025 572217 / [id number] / [id number] Description:RFV Ter[employer]o Medical Pam Angio-Seal Vip 6fr Closere Device 188891 - [id number] - [id number] Implanted:Qty: 1 on 05/11/2025 by Rio Jacobs MD at [facility] Vascular Closure Device Right: Common Femoral Artery [employer] Medical Pam 12/31/2025 516886 / [id number] / [id number] [employer] Pam [id number] Supple Ronna-Guard [place] Processing 4x4cm Patch Cardiovascular - [id number] - [id number] Implanted:Qty: 1 on 02/11/2019 by Christopher Holman MD at [facility] N/A: Chest Sotelo PolyServe 06/03/2023 [id number] / 3211-04 040010 / [id number] Jamil [employer] [id number] Certitude Brown 3 Atrion 18fr Transcatheter Introducer Crimper - [id number] - [id number] Implanted:Qty: 1 on 02/11/2019 by Christopher Holman MD at [facility] N/A: Heart Jamil [employer] [id number] 0A / [id number] / Medtronic Inc 8811-248029 [place] Curl Cath Beta-Cap Holden 15fr 57cm 2 Cuff Clamp Adapter - [id number] Implanted:Qty: 1 on 12/27/2021 by Margarita Montoya MD at [facility] N/A: Abdomen Medtronic Inc 10/14/2023 [...] 4:14 PM CDT Coronary artery disease involving chickahominy indian tribe coronary artery of chickahominy indian tribe heart without angina pectoris POCT ACTIVATED [...] - REMOTE Routine 04/23/2025 12:51 AM CDT EXTENDED/ALF HOLTER PATCH (>48 HOURS UP TO 7 [...] BLOOD ORDERABLES Final R esult [facility] Department [place] [address] * Differential, auto (05/11/2025 6:30 PM CDT) [...] on 2018. Lymphocyte pct 14.7 % [facility] Comment: Collection date/time has been modified to: 18:30:00. Previous collection date/time: 17:32:00. Interpretive Data Percent cell count reference ranges are not reported, since discordance with absolute values may lead to misinterpretation of CBC data. Current Interpretive Data was last revised on 2018. Monocyte pct 5.0 % [facility] Comment: Collection date/time has been modified to: 18:30:00. Previous collection date/time: 17:32:00. Interpretive Data Percent cell count reference ranges are not reported, since discordance with absolute values may lead to misinterpretation of CBC data. Current Interpretive Data was last revised on 2018. Eosinophil pct 3.4 % [facility] Comment: Collection date/time has been modified to: 18:30:00. Previous collection date/time: 17:32:00. Interpretive Data Percent cell count reference ranges are not reported, since discordance with absolute values may lead to misinterpretation of CBC data. Current Interpretive Data was last revised on 2018. Basophil pct 0.4 % [facility] Comment: Collection date/time has been modified [...] BLOOD ORDERABLES Edited Result - Final [facility] Department [place] [address] * (ABNORMAL) CBC with auto differential (05/11/2025 6:30 PM CDT) WBC 5.64 3.80 - 9.90 K/cumm Comment:Collection date/time has been modified to: 18:30:00. Previous collection date/time: 17:32:00. Hgb 11.5(L) 11.9 - 15.5 g/dL [facility] Comment:Collection date/time has been modified to: 18:30:00. Previous collection date/time: 17:32:00. Hct 36.8 35.6 - 45.5 % [facility] Comment:Collection date/time has been modified to: 18:30:00. Previous collection date/time: 17:32:00. Plt 158 150 - 400 K[facility]cumm [facility] Comment:Collection date/time has been modified to: 18:30:00. Previous collection date/time: 17:32:00. MPV 10.7 9.1 - 12.3 fL [facility] Comment:Collection date/time has been modified to: 18:30:00. Previous collection date/time: 17:32:00. RBC 3.94 3.90 - 5.20 M/cumm [facility] Comment:Collection date/time has been modified to: [...] PM CDT 05/11/2025 6:39 PM CDT Luca Medrnao MD LAB BLOOD ORDERABLES Edited Result - Final [facility] Department [place] [address] * (ABNORMAL) Basic metabolic panel (05/11/2025 6:30 [...] Final R esult [facility] Department [place] [address] * LEFT HEART CATHETERIZATION WITH CORONARY ANGIOGRAPHY [...] 54 y.o. female : 1970 MR number: [id number] Date of Service: 05/11/2025 Parking Station Attendant: Luca Medrano MD Fellow: Rio Jacobs MD [...] obtained. The patient was brought to the carpenter labor supervisor and placed on the table Bilateral [...] coronary artery angiogram performed using a 6 [place] JL 3 guide Percutaneous coronary intervention performed on the Proximal vein graft to the LAD. This was an ACC/AHA Type C. Initial Lesion Length 12mm and final lesion Length 12mm. Initial KAROLINA Flow 3 Final KAROLINA Flow 3. Equipment used: 6 3D RC [place] IVUS Catheter, Spiritual Minister 50 wire, 0.9 mm laser atherectomy catheter [...] got the guide to sit and a Spiritual Minister 50 wire down into the LAD. Next [...] 284(H) 123 - 168 sec POC Performer [id number] [facility] Device Number [id number] [facility] Blood 05/11/2025 4:12 PM CDT 05/11/2025 4:12 PM CDT Luca Medrano MD LAB POCT ORDERABLES - DEVICE Final Result Performing Organization Address [facility] de Phone Number [facility] [place] [address] * (ABNORMAL) POCT Activated clotting time, low range (05/11/2025 3:50 PM CDT) ACT 290(H) 123 - 168 sec POC Performer [id number] [facility] POC Device Number [id number] [facility] Blood 05/11/2025 3:50 PM CDT 05/11/2025 3:50 PM CDT Luca Medrano MD LAB POCT ORDERABLES - DEVICE Final Result Performing Organization Address [facility] de Phone Number [facility] [place] [address] * (ABNORMAL) Potassium, whole blood (05/11/2025 12:00 PM CDT) [facility] Potassium, bld 5.0(H) 3.3 - 4.9 mmol/L Blood 05/11/2025 12:0 0 PM CDT 05/11/2025 12:12 PM CDT Kasi Garcia WOOD STAINER LAB BLOOD ORDERABLES F inal Result Performing Organization Address [facility] de Phone Number [facility] [place] [address] * (ABNORMAL) POC Blood Gas and Chemistries, Arterial - (05/11/2025 11:46 AM CDT) [facility] K POC 5.5(H) 3.3 - 4.9 mmol/L Comment: Interpretive Data Not all point of care methods assess for hemolysis. Confirm with instrument and retest K+ if not consistent with clinical signs and symptoms. Current Interpretive Data was last revised on 2024. Blood 05/11/2025 11:4 6 AM CDT 05/11/2025 11:46 AM CDT us Luca Medrano MD LAB POCT ORDERABLES - DEVICE Final Result [facility] Department [place] [address] * TRANSTHORACIC ECHO (TTE) COMPLETE W DOPPLER/CF W CONTRAST (05/07/2025 10:16 AM CDT) Estimated EF 55-60 % CONS SCIMAGE Anatomical Region Laterality Modality Ultrasound 05/06/2025 3:39 PM CDT Narrative 05/06/2025 6:28 PM CDT [facility] [place] [address] Transthoracic Echocardiographic Report Patient Name: ESTUARDO COPELAND M : 1970 (54y 5m) Gender: F Study Date: 05/06/2025 03:39:15 PM Ht(Inch): 64 Wt(Lb): 132.94 BSA: 1.65 Bolt Sawyer: Brad Tripathi RDCS Location: [id number] Order Provider: ASHLEY CHAHAL Heart Rate: 65 [...] Procedure Note Job Gordon MD - 05/06/2025 [facility] [place] [address] Transthoracic Echocardiographic Report Patient Name: ESTUARDO COPELAND M : 1970 (54y 5m) Gender: F Study Date: 05/06/2025 03:39:15 PM Ht(Inch): 64 Wt(Lb): 132.94 BSA: 1.65 Bolt Sawyer: Brad Tripathi RDCS Location: [id number] Order Provider: ASHLEY CHAHAL Heart Rate: 65 [...] cm/m2 [ 1.00 - 2.00 ] MV QHK536.27 msec [ 20.00 - 100.00 ] Asc Ao Diam 2D 1.63 cm MVA PHT2.11 cm2 Asc Ao Index 0.99 cm/m2 MV Decel Vfpc037.23 msec [ 104.00 - 258.00 ] Med [...] MD LAB BLOOD ORDERAB LES Final Result [facility] Department [place] [address] * (ABNORMAL) Vitamin D 25 hydroxy (05/07/2025 6:17 AM CDT) [facility] Vitamin D 25-OH 22(L) 30 - 80 ng/mL Blood 05/07/2025 6:17 AM CDT 05/07/2025 6:55 AM CDT us Ashley Chahal MD LAB BLOOD ORDERAB LES Final Result Performing Organization Address [facility] Co de Phone Number [facility] [place] [address] * (ABNORMAL) CBC without differential (05/07/2025 6:17 AM CDT) [facility] WBC 6.90 3.80 - 9.90 [...] ORDERAB LES Final Result [facility] Department [place] [address] * (ABNORMAL) PTH (05/07/2025 6:17 AM CDT) Pathologist [facility] PTH 9(L) 15 - 65 pg/mL Blood 05/07/2025 6:17 AM CDT 05/07/2025 6:55 AM CDT Ashley Chahal MD LAB BLOOD ORDERAB LES Final Result Performing Organization Address [facility] Co de Phone Number [facility] Department [place] [address] * (ABNORMAL) Renal function panel (05/07/2025 6:17 AM CDT) [facility] Sodium 136 135 - 145 [...] 2022. Calcium 8.8 8.5 - 10.3 mg/dL [facility] Phosphorus, pl 9.9(H) 2.3 - 4.5 mg/dL [facility] Albumin 2.8(L) 3.5 - 5.0 g/dL [facility] Blood 05/07/2025 6:17 AM CDT 05/07/2025 6:55 AM CDT Ashley Chahal MD LAB BLOOD ORDERAB LES Final Result Performing Organization Address [facility] de Phone Number [facility] [place] [address] * Cortisol (05/06/2025 8:36 AM CDT) Pathologist [facility] Cortisol 11.7 4.8 - 19.5 mcg/dL Comment: Interpretive Data: Morning hours 6-10 a.m. 4.8 - 19.5 mcg/dL Afternoon hours 4-8 p.m. 2.5 - 11.9 mcg/dL This analyte undergoes marked diurnal variation. Current interpretive data was last revised 24. Blood 05/06/2025 8:36 AM CDT 05/06/2025 9:27 AM CDT us Ashley Chahal MD LAB BLOOD ORDERAB LES Final Result Performing Organization Address [facility] de Phone Number [facility] [place] [address] * (ABNORMAL) eGFR (05/06/2025 3:41 AM CDT) Pathologist [facility] [...] ORDERAB LES Final Result Performing Organization Address [facility]/ZIP Co de Phone Number [facility] Department [place] [address] * (ABNORMAL) Magnesium (05/06/2025 3:41 AM CDT) Pathologist [facility] Magnesium 2.7(H) 1.4 - 2.5 mg/dL Blood 05/06/2025 3:41 AM CDT 05/06/2025 4:14 AM CDT us Ashley Chahal MD LAB BLOOD ORDERAB LES Final Result [facility] Department [place] [address] * (ABNORMAL) Renal function panel (05/06/2025 3:41 [...] 2022. Calcium 9.0 8.5 - 10.3 mg/dL [facility] Phosphorus, pl 10.0(H) 2.3 - 4.5 mg/dL [facility] Albumin 2.7(L) 3.5 - 5.0 g/dL [facility] Blood 05/06/2025 3:41 AM CDT 05/06/2025 4:14 AM CDT us Ashley Chahal MD LAB BLOOD ORDERAB LES Final Result [facility] Department [place] [address] * (ABNORMAL) Troponin I high-sensitivity 6-hour (05/05/2025 [...] hs interp Equivocal [facility] Blood 05/05/2025 11:3 7 AM CDT 05/05/2025 12:24 PM CDT Jacqueline Jules MD LAB BLOOD ORDER WESTON Final Result Performing Organization Address [facility]/ZIP Co de Phone Number [facility] Department [place] [address] * (ABNORMAL) Troponin I high-sensitivity 4-hour (05/05/2025 9:06 AM CDT) Trop I hs 189(H) <=17 ng/L Comment: Interpretive Data For further hscTnI resources including the diagnostic algorithm and an aid in interpretation, copy and paste this link: [email or web address]://[email or web address]/show/hsTrop-1 Current Interpretive Data last revised 2020. Trop I hs pct delta -3 % [facility] Trop I hs interp Insignificant [facility] Blood 05/05/2025 9:06 AM CDT 05/05/2025 9:54 AM CDT Jacqueline Jules MD LAB BLOOD ORDER WESTON Final Result Performing Organization Address [facility] Co de Phone Number [facility] Department [place] [address] * (ABNORMAL) Troponin I high-sensitivity 2-hour (05/05/2025 6:36 AM CDT) Trop I hs 192(H) <=17 ng/L Comment: Interpretive Data For further hscTnI resources including the diagnostic algorithm and an aid in interpretation, copy and paste this link: https://[email or web address]/show/hsTrop-1 Current Interpretive Data last revised 2020. Trop I hs pct delta -1 % [facility] Trop I hs interp Insignificant [facility] Blood 05/05/2025 6:36 AM CDT 05/05/2025 8:08 AM CDT Jacqueline Jules MD LAB BLOOD ORDER WESTON Final Result Performing Organization Address [facility] de Phone Number [facility] Department [place] [address] * (ABNORMAL) Troponin I high-sensitivity series (baseline, 2hr, 4hr, 6hr) (05/05/2025 4:48 AM CDT) Trop I hs 194(H) <=17 ng/L Comment: Interpretive Data For further hscTnI resources including the diagnostic algorithm and an aid in interpretation, copy and paste this link: [email or web address].testcatalog.org/show/[email or web address] Current Interpretive Data last revised 2020. Blood 05/05/2025 4:48 AM CDT 05/05/2025 5:03 AM CDT Result [facility] Lacey Jules MD LAB BLOOD ORDER WESTON Final Result Performing Organization Address [facility] de Phone Number [facility] Department [place] [address] * (ABNORMAL) eGFR (05/05/2025 4:48 AM CDT) [...] LAB BLOOD ORDER WESTON Final Result [facility] Department [place] [address] * (ABNORMAL) Pro B-type natriuretic peptide (05/05/2025 [...] ORDER WESTON Final Result Performing Organization Address [facility] Co de Phone Number [facility] [place] [address] * (ABNORMAL) Thyroid Function [place] (05/05/2025 4:48 AM CDT) TSH 14.50(H) 0.30 - 4.20 mcIUnit/mL Blood 05/05/2025 4:48 AM CDT 05/05/2025 5:03 AM CDT Jacqueline Jules MD LAB BLOOD ORDER WESTON Final Result Performing Organization Address [facility] de Phone Number [facility] [place] [address] * Protime-INR (05/05/2025 4:48 AM CDT) PT [...] AM CDT 05/05/2025 5:13 AM CDT Narrative [facility] - 05/05/2025 5:19 AM CDT Baseline prior to apixaban initiation. Jacqueline Jules MD LAB BLOOD ORDER WESTON Final Result Performing Organization Address [facility] de Phone Number [facility] Department [place] [address] * (ABNORMAL) CBC without differential (05/05/2025 4:48 AM CDT) [facility] WBC 5.83 3.80 - 9.90 K/cumm Hgb [...] ORDER WESTON Final Result Performing Organization Address [facility] Co de Phone Number [facility] Department [place] [address] * (ABNORMAL) T4, free (05/05/2025 4:48 AM CDT) [facility] Free T4 0.70(L) 0.90 - 1.70 ng/dL Blood 05/05/2025 4:48 AM CDT 05/05/2025 5:03 AM CDT Narrative [facility] - 05/05/2025 6:23 AM CDT This test was reflexed from a TSH result. Jacqueline Jules MD LAB BLOOD ORDER WESTON Edited Result - Final Performing Organization Address [facility] de Phone Number [facility] [place] [address] * (ABNORMAL) Phosphorus (05/05/2025 4:48 AM CDT) Phosphorus, pl 11.7(H) 2.3 - 4.5 mg/dL Blood 05/05/2025 4:48 AM CDT 05/05/2025 5:03 AM CDT Jacqueline Jules MD LAB BLOOD ORDER WESTON Final Result Performing Organization Address [facility] de Phone Number [facility] Department [place] [address] * (ABNORMAL) Magnesium (05/05/2025 4:48 AM CDT) Magnesium 2.9(H) 1.4 - 2.5 mg/dL Blood 05/05/2025 4:48 AM CDT 05/05/2025 5:03 AM CDT Jacqueline Jules MD LAB BLOOD ORDER WESTON Final Result Performing Organization Address [facility] de Phone Number [facility] [place] [address] * Bilirubin, direct (05/05/2025 4:48 AM CDT) Bilirubin, direct <0.2 0.1 - 0.3 mg/dL Blood 05/05/2025 4:48 AM CDT 05/05/2025 5:03 AM CDT Jacqueline Jules MD LAB BLOOD ORDER WESTON Final Result [facility] Department [place] [address] * (ABNORMAL) Comprehensive metabolic panel (05/05/2025 4:48 AM CDT) Sodium 140 135 - 145 mmol/L Potassium, pl 5.1(H) 3.3 - 4.9 mmol/L [facility] Chloride 100 97 - 110 mmol/L [facility] CO2 24 22 - 32 mmol/L [facility] Anion gap 16(H) 2 - 15 mmol/L [facility] BUN 60(H) 6 - 25 mg/dL [facility] Creatinine 14.48(H) 0.60 - 1.10 mg/dL [facility] Glucose 91 70 - 199 mg/dL [facility] [...] 2022. Calcium 9.5 8.5 - 10.3 mg/dL [facility] Bilirubin, total 0.2 0.1 - 1.2 mg/dL [facility] Protein, pl 5.6(L) 6.5 - 8.5 g/dL [facility] Albumin 2.8(L) 3.5 - 5.0 g/dL [facility] Alk phos 71 40 - 130 Units/L [facility] BJ ALT 9 7 - 45 Units/L [facility] AST 16 10 - 45 Units/L [facility] Blood 05/05/2025 4:48 AM CDT 05/05/2025 5:03 AM CDT Jacqueline Jules MD LAB BLOOD ORDER WESTON Final Result [facility] Department [place] [address] * XR Chest 1 View (05/04/2025 11:16 [...] PM CDT) Ventricular Rate EKG/Min 82 BPM [facility] Atrial Rate 82 BPM [facility] AZ-Interval (MSEC) 160 ms [facility] QRS-Interval (MSEC) 84 ms [facility] QT-Interval (MSEC) 368 ms [facility] QTc 429 ms [facility] P [place] -16 degrees [facility] R [place] -27 degrees [facility] T [place] 134 degrees [facility] Diagnosis Atrial-paced rhythm Minimal voltage criteria for LVH, may be normal variant ( [place] product ) Septal infarct (cited on or before 20-FEB-2025) T wave abnormality, consider lateral ischemia Abnormal ECG When compared with ECG of 22-FEB-2025 09:14, Electronic atrial pacemaker has replaced Sinus rhythm Confirmed by HARJINDER HANDY M.D ([id number]) on 05/05/2025 2:09:39 PM [facility] 05/04/2025 8:59 PM CDT 05/05/2025 [...] appropriate. No short V-V intervals. Presenting Rhythm (AZ) Atrial Sensing-Ventricular Sensing (-VS) --- /VS (SR) [...] andappropriate. No short V-V intervals. Presenting Rhythm (AZ) Atrial Sensing-Ventricular Sensing (-VS) --- /VS (SR) [...] CV CARDIAC SERVICES PROCEDURES Final Result * Extended/Custodial Holter Patch (>48 hours up to 7 days) (04/20/2025 1:47 PM CDT) Anatomical Region Laterality Modality Electrocardiogra phy 04/27/2025 12:4 8 PM CDT Narrative 05/10/2025 1:47 PM CDT HOLTER MONITOR Patient Name: ESTUARDO COPELAND M : 1970 (54y 5m) Gender: F Study Date: 04/27/2025 12:48:59 PM Ht(Inch): Wt(Lb): BSA: Tech: Location: [facility] Order Provider: LUCA MEDRANO BMI: Ref Provider: LUCA MEDRANO PROCEDURES: Holter Report: EXTENDED/ALF HOLTER PATCH (>48 HOURS UP TO 7 DAYS) [[id number]]. Enrollment Period: 2025-04-27 00:00:00 through 2025-04-29 00:00:00. Location: [facility]. INDICATIONS: R00.2 Palpitations. FINDINGS: Holter Data: Min [...] events Runs (VT): 6 events Total beats: 43364 SIGNIFICANT PAUSES: 0 >3 sec Protocol: Recording Duration (Ordered): [id number] Recording Duration (Actual): 50164.3 SUMMARY: *The predominant rhythm was Sinus with [...] 12:48:59 PM Ht(Inch): Wt(Lb): BSA: Tech: Location: [facility] Order Provider: LUCA MEDRANO BMI: Ref Provider: LUCA MEDRANO PROCEDURES: Holter Report: EXTENDED/ALF HOLTER PATCH (>48 HOURS UP TO 7 DAYS)[[id number]]. Enrollment Period: 2025-04-27 00:00:00 through 2025-04-29 00:00:00. Location: [facility]. INDICATIONS: R00.2 Palpitations. 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 Single Antigen [...] method developed and validated by the [facility] HLA laboratory based on an FDA-approved IVD kit (LABScreen Single-Antigen, [employer], [place], [place]). All patient serum samples are pretreated with EDTA before the screen to prevent complement interference. Additional serum treatments, such as adsorption and DTT treatment, may be performed as indicated. Interpretive comments: Low risk: MFI [id number]. Moderate risk: MFI 8910-2293. Increased risk: MFI >/= 5000. The presence [...] antigens to avoid. Testing performed at the [facility], [address] [place] [address], 5th floor, [place], [address]. CLIA # [id number]. Rosa Millan, Ph.D., [place], HLA Laboratory Wilmer Prescott M.D., Ph.D., [place], HLA Laboratory Alma Payton, Ph.D., CLIA [employer] [place], [facility] Clinical Laboratories Current methodology and interpretive comments last revised on 11/15/2022. 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 No testing performed at this time. Salina Hector MD LAB BLOOD ORDERABLES Final Resul t Performing Organization Address City/State/[facility] Co de Phone Number [facility] [...] ORDERABLES Final Result [facility] Department [place] [address] * (ABNORMAL) Differential, auto (02/24/2025 9:50 AM CDT) Neutrophil abs 4.72 1.50 - 6.50 K/cumm Imm gran abs 0.02 0.00 - 0.10 K/cumm [facility] Lymphocyte abs 0.73(L) 0.80 - 3.30 K/cumm [facility] Monocyte abs 0.42 0.20 - 0.80 K/cumm [facility] Eosinophil abs 0.21 0.00 - 0.50 K/cumm [facility] Basophil abs 0.04 0.00 - 0.10 K/cumm [facility] Neutrophil pct 76.9 % [facility] Comment: Interpretive Data Percent cell count reference ranges are not reported, since discordance with absolute values may lead to misinterpretation of CBC data. Current Interpretive Data was last revised on 2018. Imm gran pct 0.3 % [facility] Comment: Interpretive Data Percent cell count reference ranges are not reported, since discordance with absolute values may lead to misinterpretation of CBC data. Current Interpretive Data was last revised on 2018. Lymphocyte pct 11.9 % [facility] Comment: Interpretive Data Percent cell count reference ranges are not reported, since discordance with absolute values may lead to misinterpretation of CBC data. Current Interpretive Data was last revised on 2018. Monocyte pct 6.8 % [facility] Comment: Interpretive Data Percent cell count reference ranges are not reported, since discordance with absolute values may lead to misinterpretation of CBC data. Current Interpretive Data was last revised on 2018. Eosinophil pct 3.4 % [facility] Comment: Interpretive Data Percent cell count reference ranges are not reported, since discordance with absolute values may lead to misinterpretation of CBC data. Current Interpretive Data was last revised on 2018. Basophil pct 0.7 % [facility] Comment: Interpretive Data Percent cell count reference ranges are not reported, since discordance with absolute values may lead to misinterpretation of CBC data. Current Interpretive Data was last revised on 2018. Blood 02/24/2025 9:50 AM CDT 02/24/2025 10:17 AM CDT Dasha Montez DO LAB BLOOD ORDERABLES Final Result [facility] Department [place] [address] * (ABNORMAL) CBC with auto differential (02/24/2025 [...] ORDERABLES Final Result [facility] Department [place] [address] * (ABNORMAL) Basic metabolic panel (02/24/2025 9:50 [...] BLOOD ORDERABLES Final Result Performing Organization Address City/[facility]/ZIP Co de Phone Number [facility] [place] [address] * (ABNORMAL) eGFR (02/23/2025 11:43 PM CDT) [...] BLOOD ORDERABLES Final Result Performing Organization Address [facility]/ZIP Co de Phone Number [facility] Department [place] [address] * VerifyNow clopidogrel (02/23/2025 11:43 PM CDT) [...] MD LAB BLOOD ORDERABLES Fin al Result [facility] Department [place] [address] * (ABNORMAL) Phosphorus (02/23/2025 11:43 PM CDT) [facility] Phosphorus, pl 7.6(H) 2.3 - 4.5 mg/dL Blood 02/23/2025 11:4 3 PM CDT 02/24/2025 12:22 AM CDT us Jaimie Giordano MD LAB BLOOD ORDERABLES Final Result [facility] Department [place] [address] * Magnesium (02/23/2025 11:43 PM CDT) [facility] Magnesium 2.4 1.4 - 2.5 mg/dL Blood 02/23/2025 11:4 3 PM CDT 02/24/2025 12:22 AM CDT us Jaimie Giordano MD LAB BLOOD ORDERABLES Final Result [facility] Department [place] [address] * (ABNORMAL) Basic metabolic panel (02/23/2025 11:43 PM CDT) [facility] Sodium 133(L) 135 - 145 mmol/L Potassium, [...] Giordano MD LAB BLOOD ORDERABLES Final Result [facility] Department [place] [address] * LEFT HEART CATHETERIZATION WITH CORONARY ANGIOGRAPHY [...] 54 y.o. female : 1970 MR number: [id number] Date of Service: 02/23/2025 Parking Station Attendant: Luca Medrano MD Fellow: Sanket Quiroz MD [...] vein graft to her LAD and her chick[place]ominy indian tribe left main. She now presents for urgent cardiac catheterization PROCEDURE: The risks, benefits and alternatives of the procedures and moderate sedation were explained to the patient and informed consent was obtained. The patient was brought to the carpenter labor supervisor and placed on the table Bilateral [...] the LAD angiogram performed using a 6 [place] 3D RC Percutaneous coronary intervention performed on theSVG to the Proximal LAD. This was an ACC/AHA Type C. Initial Lesion Length 12mm and final lesion Length 20mm. Initial KAROLINA Flow 3 Final KAROLINA Flow 3. Equipment used: 6 3DRC, [employer] IVUS Catheter, Spiritual Minister 50 wire, 0.9 mm laser atherectomy catheter [...] it was extremely difficult. We used a Spiritual Minister 50 wire with extreme difficulty wire through [...] 319(H) 123 - 168 sec POC Performer [id number] [facility] POC Device Number [id number] [facility] Blood 02/23/2025 1:41 PM CDT 02/23/2025 1:41 PM CDT us Ellie Saenz MD LAB POCT ORDERABLES - DE VICE Final Result [facility] [place] [address] * (ABNORMAL) POCT Activated clotting time, low range (02/23/2025 12:35 PM CDT) [facility] ACT 351(H) 123 - 168 sec POC Performer [id number] [facility] POC Device Number [id number] [facility] Blood 02/23/2025 12:3 5 PM CDT 02/23/2025 12:35 PM CDT us Ellie Saenz MD LAB POCT ORDERABLES - DE VICE Final Result Performing Organization Address [facility] [place] [address] * (ABNORMAL) aPTT (02/23/2025 6:36 AM CDT) [facility] aPTT 80(H) 28 - 38 sec Comment: Interpretive Data Heparin therapeutic range: 66.0 - 100.0 seconds. Range based on correlation with therapeutic heparin activity range of 0.3 - 0.7 Units/mL. Current interpretive data was last revised on 2023. Blood 02/23/2025 6:36 AM CDT 02/23/2025 7:00 AM CDT us Heaven Lerner MD LAB BLOOD ORDERABLES Final Result Performing Organization Address [facility]/ZIP Co de Phone Number [facility] Department [place] [address] * (ABNORMAL) eGFR (02/22/2025 11:07 PM CDT) [facility] eGFR 3(L) >=60 mL/min/1. 73 [...] BLOOD ORDERABLES Final Result Performing Organization Address [facility] Co de Phone Number [facility] Department [place] [address] * (ABNORMAL) aPTT (02/22/2025 11:07 PM CDT) Pathologist [facility] aPTT 69(H) 28 - 38 sec Comment: Interpretive Data Heparin therapeutic range: 66.0 - 100.0 seconds. Range based on correlation with therapeutic heparin activity range of 0.3 - 0.7 Units/mL. Current interpretive data was last revised on 2023. Blood 02/22/2025 11:0 7 PM CDT 02/22/2025 11:52 PM CDT us Ellie Saenz MD LAB BLOOD ORDERABLES Fin al Result Performing Organization Address [facility] Co de Phone Number [facility] Department [place] [address] * (ABNORMAL) Phosphorus (02/22/2025 11:07 PM CDT) Pathologist [facility] Phosphorus, pl 7.2(H) 2.3 - 4.5 mg/dL Blood 02/22/2025 11:0 7 PM CDT 02/22/2025 11:50 PM CDT Jaimie Giordano MD LAB BLOOD ORDERABLES Final Result Performing Organization Address [facility]/ZIP Co de Phone Number [facility] Department [place] [address] * Magnesium (02/22/2025 11:07 PM CDT) [facility] Magnesium 2.5 1.4 - 2.5 mg/dL Blood 02/22/2025 11:0 7 PM CDT 02/22/2025 11:50 PM CDT Jaimie Giordano MD LAB BLOOD ORDERABLES Final Result Performing Organization Address [facility] de Phone Number [facility] Department [place] [address] * (ABNORMAL) Basic metabolic panel (02/22/2025 11:07 PM CDT) [facility] Sodium 134(L) 135 - 145 [...] BLOOD ORDERABLES Final Result Performing Organization Address [facility] Co de Phone Number [facility] [place] [address] * (ABNORMAL) aPTT (02/22/2025 2:25 PM CDT) [...] BLOOD ORDERABLES Final Result Performing Organization Address [facility] Co de Phone Number [facility] [place] [address] * TRANSTHORACIC ECHO (TTE) COMPLETE W DOPPLER/CF W CONTRAST (02/22/2025 1:39 PM CDT) EF Mod BP 51 % CONS SCIMAGE Anatomical Region Laterality Modality Ultrasound 02/22/2025 12:3 8 PM CDT Narrative 02/22/2025 2:49 PM CDT [facility] [place] [address] Transthoracic Echocardiographic Report Patient Name: ESTUARDO COPELAND M : 1970 (54y 3m) Gender: F Study Date: 02/22/2025 12:38:48 PM Ht(Inch): 64 Wt(Lb): 123.9 BSA: 1.59 Bolt Sawyer: Marisol Arciniega RD, [facility] Location: [id number] Order Provider: ELLIE SAENZ Heart Rate: 75 [...] flow reversal in the hepatic veins. Mild [place]. Est. PASP 40-45 mm Hg. 7. Physiologic [...] Procedure Note Rc Koehler MD - 02/22/2025 [facility] [place] [address] Transthoracic Echocardiographic Report Patient Name: ESTUARDO COPELAND M : 1970 (54y 3m) Gender: F Study Date: 02/22/2025 12:38:48 PM Ht(Inch): 64 Wt(Lb): 123.9 BSA: 1.59 Bolt Sawyer: Marisol Arciniega RDCS, [facility] Location: [id number] OrderProvider: ELLIE SAENZ Heart Rate: 75 BMI: [...] systolic flow reversal in the hepatic veins.Mild [place]. Est. PASP 40-45 mm Hg. 7. Physiologic [...] [ 2.70 - 3.70 ] MV Decel Buup665.43 msec [ 104.00 - 258.00 ] Ao [...] ECG 12 lead (02/22/2025 9:14 AM CDT) [facility] Ventricular Rate EKG/Min 80 BPM [facility] Atrial Rate 80 BPM [facility] AZ-Interval (MSEC) 96 ms [facility] QRS-Interval (MSEC) 90 ms [facility] QT-Interval (MSEC) 412 ms [facility] QTc 475 ms [facility] P [place] 90 degrees [facility] R [place] -30 degrees [facility] T [place] 133 degrees [facility] Diagnosis Sinus rhythm with sinus arrhythmia with short [place] Left axis deviation Left ventricular hypertrophy ( Romhilt-Pierce ) Cannot rule out Septal infarct (cited on 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-FEB-2025) ST & T wave abnormality, consider lateral ischemia Abnormal ECG When compared with ECG of 22-FEB-2025 01:51, (unconfirmed) Sinus rhythm has replaced Atrial fibrillation Confirmed by HARJINDER HANDY M.D ([id number]) on 03/05/2025 11:42:44 AM [facility] 02/22/2025 9:14 AM CDT 03/05/2025 11:42 AM CDT us Jaimie Giordano MD ECG ORDERABLES Victoria becerra Result [facility] * (ABNORMAL) Troponin I high-sensitivity 4-hour (02/22/2025 6:24 AM CDT) [facility] Trop I hs 1,868(C) <=17 ng/L Comment: Previous critical value noted within 48 hours ago. Interpretive Data For further [facility] resources including the diagnostic algorithm and an aid in interpretation, copy and paste this link: [email or web address] Current Interpretive Data last revised 2020. Trop [...] ORDERABLES Final Resul t Performing Organization Address [facility] de Phone Number [facility] [place], [place] [id number] * (ABNORMAL) Troponin I high-sensitivity 2-hour (02/22/2025 4:51 AM CDT) Trop I hs 2,146(C) <=17 ng/L Comment: Previous critical value noted within 48 hours ago. Interpretive Data For further [facility] resources including the diagnostic algorithm and an aid in interpretation, copy and paste this link: [email or web address]/show/[email or web address] Current Interpretive Data last revised 2020. Trop I hs pct delta -7 % [facility] Trop I hs interp Equivocal [facility] Blood 02/22/2025 4:51 AM CDT 02/22/2025 5:26 AM CDT Milton Rubio MD LAB BLOOD ORDERABLES Final Resul t Performing Organization Address [facility] Co de Phone Number [facility] [place] [address] * (ABNORMAL) aPTT (02/22/2025 4:51 AM CDT) [...] Final Resul t Performing Organization Address [facility] Co de Phone Number [facility] Department [place] [address] * Infection Prevention Anthony auris PCR, surveillance Axilla/Groin (02/22/2025 2:05 AM CDT) Anthony auris DNA Not Detected Not Detected [facility] Comment: Interpretive Data Testing performed by [facility] Molecular Infectious Disease Laboratory using the Pablo estelle [employer] Anthony auris assay. This assay detects DNA from Anthony auris using Real-Time PCR. This assay is laboratory developed and is not cleared by the [facility] Food and Drug Administration. The performance characteristics have been verified by the [facility] Molecular Infectious Disease Laboratory. Axilla/Groin 02/22/2025 2:05 AM CDT 02/22/2025 3:14 AM CDT Narrative NONALARA DOMINGUEZ - 02/22/2025 2:38 PM CDT Order placed by [facility] due to ring surveillance. Instant Order Generic Provider LAB MICROBIOLOGY - GENERAL ORDERABLES Final Result Performing Organization Address [facility] Co de Phone Number [facility] Department [place] [address] [facility] * (ABNORMAL) Troponin I high-sensitivity series [...] Final Resul t Performing Organization Address [facility] Co de Phone Number [facility] [place] [address] * (ABNORMAL) eGFR (02/22/2025 2:05 AM CDT) [...] ORDERABLES Final Resul t Performing Organization Address [facility] Co de Phone Number [facility] [place] [address] * Magnesium (02/22/2025 2:05 AM CDT) Magnesium 2.5 1.4 - 2.5 mg/dL Blood 02/22/2025 2:05 AM CDT 02/22/2025 2:58 AM CDT us Milton Rubio MD LAB BLOOD ORDERABLES Final Resul t [facility] Department [place] [address] * (ABNORMAL) Comprehensive metabolic panel (02/22/2025 2:05 AM CDT) Pathologist [facility] Sodium 138 135 - 145 mmol/L Potassium, [...] Final Resul t Performing Organization Address [facility]/ZIP Co de Phone Number [facility] Department [place] [address] * ECG 12 lead (02/22/2025 1:45 AM CDT) Ventricular Rate EKG/Min 137 BPM [facility] QRS-Interval (MSEC) 94 ms [facility] QT-Interval (MSEC) 316 ms [facility] QTc 477 ms [facility] R [place] -41 degrees [facility] T [place] 137 degrees [facility] Diagnosis Age and gender specific ECG analysis Sinus tachycardia Anteroseptal ST-elevation Poor R-wave progression in the precordial leads Left axis deviation Minimal voltage criteria for LVH, may be normal variant ( [place] product ) Anteroseptal infarct , possibly acute T wave abnormality, consider lateral ischemia Abnormal ECG No previous ECGs available Confirmed by HARJINDER HANDY M.D ([id number]) on 02/23/2025 3:10:53 PM [facility] 02/22/2025 1:45 AM CDT 02/23/2025 3:10 PM CDT us Jaimie Giordano MD ECG ORDERABLES Victoria l Result Performing Organization Address [facility]/ZIP Co de Phone Number [facility] [...] ORD ERABLES Final Result [facility] Department [place] [address] from Last 3 Months or Most Recently Relevant to Health Maintenance Insurance [facility] CHOICE PLUS MEDICARE IDTN [facility] CHOICE PLUS [facility] CHOICE PLUS MEDICARE MEDICARE [facility] CHOICE PLUS MEDICARE TRANSPLANT [facility] Advance Directives For more information, please contact: [phone] * Full Code (Latest Code Status on [...] 10:59 AM 12/28/2024 9:10 AM Care Teams Box Gluer Relationship Specialty Start Date End Date ScarlettmelanyfredPal PCP - General Internal Medicine 01/25/21 Quinton Rowan MD Referring Physician Cardiology 01/09/19 Tami Flores, TONO [address] [address] Registered Nurse Manager Deli 01/25/21 Cricket Escalante MD [address] [address] Referring Physician Nephrology 03/24/21 Gael Sprague MD PhD [address] [address] Fellow Endocrinology Diabetes & Metabolism 03/24/21 Brad Turner MD [facility] [address] [place] [address] Consulting Physician Obstetrics and Gynecology 03/24/21 Margarita Montoya MD [address] [address] Consulting Physician Trauma Surgery 12/27/21 Luca Medrano MD [address] [id number] Consulting Physician Cardiology 08/03/22 Pb Galloway MD [address] [phone] Cardiothoracic Surgery 05/25/24 Felipe Gerber MD [address] [place] [address] Consulting Physician Cardiology 05/25/24
--- OUTSIDE RECORDS SUMMARY | 2025-05-25 05:40 | XMS_ITS ---
Author Organization [facility] Address [address] [place] [address] Care Team Providers Care Flag Signalman Name Role Phone Quinton Rowan MD Unavailable [phone] Pal Downey DO Primary Care Provider Tami Flores RN Unavailable Cricket Escalante MD Unavailable [phone] Gael Sprague MD PhD Unavailable Brad Turner MD Unavailable [phone] Margarita Montoya MD Unavailable Luca Lott MD Unavailable Pb Galloway MD Unavailable [phone] Felipe Gerber MD Unavailable [phone] Transplant Episode Kidney Candidate [facility] ([place], [place]) [facility] Center waitlisted on 09/05/2021 Marked as Inactive on 03/13/2024 Reason: 03 - Candidate Work-up Incomplete Kidney CoordinatorTami Flores RN Email: N/A Scores Score Value Updated Exceptions/Reas ons CPRA Not available EPTS (Calc) 30 05/25/2025 [place] Organ Diagnosis Organ Primary Contributory Kidney Polycystic Kidneys Care Team Name Role Phone Fax Email Tami lFores RN Kidney Coordinator [phone] N/A Mariann Bobo Lay Out Drafter [phone] N/A N/A Events Pre-Transplant Referred: 10/06/2020 Evaluation began: 03/24/2021 Committee: 09/04/2021 Center waitlisted: 09/05/2021 Dialysis History Dialysis History Start End Type Comments Center 01/09/2022 Peritoneal 7 days a week D mine Escalante [facility] Dialysis Center Information Center Phone Fax Address [facility] [phone] [address] [id number]
--- OUTSIDE RECORDS SUMMARY | 2025-05-25 05:41 | XMS_ITS | Encounter Summary ---
Author Organization [facility] [employer] [place] [facility] Address [address] [place] [address] Phone Care Team Providers Care All Terrain Vehicle Technician Name Role Phone Quinton Rowan MD Unavailable Pal Downey DO Primary Care Provider [phone] Tami Flores RN Unavailable Cricket Escalante MD Unavailable Gael Sprague MD PhD Unavailable Brad Turner MD Unavailable Margarita Montoya MD Unavailable Luca Lott MD Unavailable [phone] Pb Galloway MD Unavailable [phone] Felipe Gerber MD Unavailable [phone] Claire Rosales [facility] Unavailable Encounter Details Date Type Department Care Team (Late st Contact Info) Description 05/12/2025 Telephone [facility] [address] [facility] Advanced Medicine 8th [place] [address] [place] [address] Luca Lott MD [address] [place] [address] Social History Tobacco Use Types Packs/Day Years Used Date Smoking Tobacco: Former Cigarettes 1 20 0 04/01/1992 - 04/01/2012 Smokeless Tobacco: Never Alcohol Use Standard Drinks/Week Comments Yes 0 (1 standard drink = 0.6 oz pur e alcohol) occasional [facility] Utilities Answer Date Recorded In the past 12 months has e electric, gas, oil, or water [employer] threatened to shut off services in your home? Patient declined 05/10/2025 Social Connection and Isolation Panel [NHANES] A nswer Date Recorded In a typical week, how many times do you talk on the phone with family, friends, or neighbors? Patient declined 05/10/2025 How often do you get togethe r with friends or relatives? Patient declined 05/10/2025 How often do you attend advent or baptism serv ices? Patient declined 05/10/2025 Do you belong to any clubs o r organizations such as advent groups, unions, fraternal or athletic groups, or [...] time in the past 12 m [facility], were you homeless or living in a long term (including now)? Patient declined 05/10/2025 Personal Safety Answer Date Recorded Have you ever been in or are you currently in a harmful physical or emotional relationship or is someone making you feel afraid or unsafe? 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 Okay to add on at noon if needed Thanks luca documented in this encounter Plan of Treatment Scheduled Procedures Name Priority Associated Diagnoses Date/Ti me TRANSPLANT KIDNEY ESRD (end stage renal disease) (HCC) documented as of this encounter Visit Diagnoses Not on filedocumented in this encounter Care Teams All Terrain Vehicle Technician Relationship Specialty Start Date End Date Pal Downey DO PCP - General Internal Medicine 01/25/21 Quinton Rowan MD Referring Physician Cardiology 01/09/19 Tami Flores RN [address] [address] Registered Nurse Dado Operator 01/25/21 Cricket Escalante MD [address] [address] Referring Physician Nephrology 03/24/21 Gael Sprague MD PhD [address] [address] Fellow Endocrinology Diabetes & Metabolism 03/24/21 Brad Turner MD [address] [place] [address] Consulting Physician Obstetrics and Gynecology 03/24/21 Margarita Montoya MD [address] [place] [id number] Consulting Physician Trauma Surgery 12/27/21 Luca Lott MD [address] [address] Consulting Physician Cardiology 08/03/22 Pb Galloway MD [address] [address] Cardiothoracic Surgery 05/25/24 Felipe Gerber MD [address] [address] Consulting Physician Cardiology 05/25/24 Claire Rosales LCSW [address] [facility] ([facility] Mailstop [phone] [place] [address] [facility]OP Outpatient Tar Kettle Runner 05/10/25 05/18/25 documented as of this encounter
--- OUTSIDE RECORDS SUMMARY | 2025-05-25 05:42 | XMS_ITS | Encounter Summary ---
Author Organization [facility] Healthcare Address [address] [place] [address] Care Team Providers Care Oven Press Tender Name Role Phone Quinton Rowan MD Unavailable Pal Downey DO Primary Care Provider [phone] Tami Flores RN Unavailable Cricket Escalante MD Unavailable Gael Sprague MD PhD Unavailable Brad Turner MD Unavailable [phone] Margarita Montoya MD Unavailable [phone] Luca Lott MD Unavailable Pb Galloway MD Unavailable [phone] Felipe Gerber MD Unavailable [phone] Claire Rosales [facility] Unavailable Reason for Visit * Reason Onset Date Comments Admit Notification 05/04/2025 Encounter Details Date Type Department Care Team (Late st Contact Info) Description 05/04/2025 Telephone [facility] Bed Planning [address] [place] [address] Wiley Pulliam, social service coordinator Notification Social History Tobacco Use Types Packs/Day [...] on file Legal Sex Female 4:06 AM ROTARY DRIER Gender Identity Female 01/16/2024 11:18 AM CDT Sexual Orientation Straight 01/16/2024 11 :18 AM CDT documented as of this encounter Plan of Treatment Scheduled Procedures Name Priority Associated Diagnoses Date/Ti me TRANSPLANT KIDNEY ESRD (end stage renal disease) (HCC) documented as of this encounter Visit Diagnoses Not on filedocumented in this encounter Care Teams Oven Press Tender Relationship Specialty Start Date End Date Pal Downey DO PCP - General Internal Medicine 01/25/21 Quinton Rowan MD Referring Physician Cardiology 01/09/19 Tami Flores, TONO [address] [address] Registered Nurse Telecommunications Analyst 01/25/21 Cricket Escalante MD [address] [address] Referring Physician Nephrology 03/24/21 Gael Sprague MD PhD [address] [facility] [address] [place] [address] Fellow Endocrinology Diabetes & Metabolism 03/24/21 Brad Turner MD [address] [address] Consulting Physician Obstetrics and Gynecology 03/24/21 Margarita Montoya MD [address] [address] Consulting Physician Trauma Surgery 12/27/21 Luca Lott MD [address] [facility] [address] [address] Consulting Physician Cardiology 08/03/22 Pb Galloway MD [address] [facility] [address] [address] Cardiothoracic Surgery 05/25/24 Felipe Gerber MD [address] [facility] [address] [address] Consulting Physician Cardiology 05/25/24 Claire Rosales, [facility] [address] [facility] ([facility]) Mailstop [phone] [place] [address] [place] 05/10/25 05/18/25 documented as of this encounter
--- NOTE | 2025-05-25 05:45 | ED_ITS ---
HPI - Abdominal Pain General Chief Complaint: Abdominal Pain <Adrianna Saavedra MD - Last Filed: 05/25/25 08:45> Stated Complaint: left flank pain <Adrianna Saavedra MD - Last Filed: 05/25/25 08:45> Time Seen by Provider: 05/25/25 05:04 <Adrianna Saavedra MD - Last Filed: 05/25/25 08:45> Source: patient and RN notes reviewed <Adrianna Saavedra MD - Last Filed: 05/25/25 08:45> Mode of arrival: EMS <Adrianna Saavedra MD - Last Filed: 05/25/25 08:45> Limitations: no limitations <Adrianna Saavedra MD - Last Filed: 05/25/25 08:45> History of Present Illness HPI narrative: Patient presents with report of left flank and left-sided abdominal pain started at 9:00 a.m.. It continued to worsen throughout the day and she had presented initially to the emergency department at 6:30 p.m. but left due to the full waiting room. She went home and attempted to perform peritoneal dialysis (has been doing so for 3.5 years), history of polycystic kidney disease. 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 Patient states that the pain has been essentially constant, not intermittent. Patient took a dose of hydrocodone that had been called in by a doctor and, when no change in pain, took another one still without relief. Patient normally undergoes 5 cycles of approximately 1-1/2 hours each for a total of approximately 10 hours of dialysis but she only was able to complete 2 cycles last night. She notes that the fluid was clear which was reassuring. She is having nausea but no vomiting. She states this is possible that she has experienced pain like this before in that she has a history of having ruptured kidney cysts. No history of passing kidney stones. She reports that she cannot find a comfortable position. No fevers but she has been intermittently feeling hot and cold flashes. She only makes scant urine, approximately twice per day and only a few tbsp. Patient states she approximately 2 weeks ago underwent heart procedure at [facility], one of her stents was not patent so they opened it with a balloon. <Adrianna Saavedra MD - Last Filed: 05/25/25 08:45> Related Data Home Medications: Home Medications ?Medication ?Instructions ?Recorded ?Confirmed ?Last Taken ?Type clopidogrel 75 mg tablet (Plavix) 75 mg PO DAILY 08/01/22 04/23/25 04/22/25 History gentamicin 0.1 % topical cream 1 applic topical DAILY 08/01/22 04/23/25 04/22/25 History loratadine 10 mg tablet (Claritin) 10 mg PO DAILY PRN Allergy Symptoms 08/01/22 04/23/25 04/22/25 History multivitamin 1 tablet PO DAILY 08/01/22 04/23/25 08/27/24 History nitroglycerin 0.4 mg sublingual 0.4 mg sublingual Q5M PRN Pain 08/01/22 04/23/25 Unknown History tablet gabapentin 100 mg capsule 100 mg PO WEEKLY 08/18/24 04/23/25 04/16/25 History ergocalciferol (vitamin D2) 25,000 See Rx Instructions .Route .COMPLEX 09/24/24 04/23/25 04/18/25 History unit capsule calcitriol 0.25 mcg capsule 0.25 mcg PO DAILY 03/02/25 04/23/25 04/21/25 History evolocumab 140 mg/mL subcutaneous 140 mg subcut ONCE 03/02/25 04/23/25 Unknown History pen injector (Flo Lainez) ferric citrate 210 mg iron tablet 210 mg PO BID 03/02/25 04/23/25 04/22/25 History (Auryxia) <Adrianna Saavedra MD - Last Filed: 05/25/25 08:45> Allergies/Adverse Reactions: Allergies Allergy/AdvReac Type Severity Reaction Status Date / Time amoxicillin Allergy Severe Difficulty Verified 05/25/25 01:47 Breathing egg Allergy Severe STOPPED Verified 05/25/25 01:47 BREATHING Penicillins Allergy Severe Stopped Verified 05/25/25 01:47 Breathing ciprofloxacin Allergy Intermediate Fever Verified 05/25/25 01:47 bass Allergy Unknown Swelling Verified 05/25/25 01:47 tree nut Allergy Unknown Vomiting Verified 05/25/25 01:47 clindamycin AdvReac Nausea and Verified 05/25/25 01:47 Vomiting <Adrianna Saavedra MD - Last Filed: 05/25/25 08:45> PMFSH Past Medical History Medical History: Medical History Paroxysmal atrial fibrillation Hypothyroidism End-stage renal disease on peritoneal dialysis Adenomatous colon polyp 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 She underwent left thoracotomy, chemotherapy and radiation. Aortic stenosis Bicuspid aortic valve. Status post aortic valve replacement on 02/11/2019 that resulted in perivalvular regurgitation. Asthma <Adrianna Saavedra MD - Last Filed: 05/25/25 08:45> Surgical History Surgical History: Surgical History H/O single vessel coronary artery bypass Saphenous vein graft to LAD with PCI stent to the graft February 2022 with InStent restenoses 07/21/2022 with PCI and laser arthrectomy in placement id DESI x1 with EF postprocedure 50% and moderate aortic regurg S/P colonoscopic polypectomy 2020 Hx of heart artery stent History of aortic valve replacement History of section History of hysterectomy Pacemaker Patient developed bradycardia with sick sinus syndrome requiring pacemaker on 05/15/2019. History of thyroidectomy <Adrianna Saavedra MD - Last Filed: 05/25/25 08:45> Family History Family History: Family History Father Hypertension Family history of coronary artery disease, Onset Age: 57 Mother Hypertension Cerebrovascular accident Family history of malignant neoplasm Family history of kidney disease Grandparent Family history of kidney disease <Adrianna Saavedra MD - Last Filed: 05/25/25 08:45> Social History Social History: Social History Social History: Surrogate medical decision maker: She states that both her children her surrogate decision maker. Code status: Full code. Caffeine-coffee Smoking packs per day: 1 Smoking cigarettes per day: 20.0 Years smoked: 25 Smoking pack-years: 25.00 Smoking status: Former smoker Tobacco type: cigarettes Second hand tobacco smoke exposure: Yes Smoking end date: 04/01/12 Additional smoking assessment comments: quit vaping 05/2024 Alcohol intake: never Substance use: former Substance use type: marijuana Other substance usage details: Years ago Do You Feel Safe in your Home?: Yes Lack of Transportation: No Lack of Food: Never True Current Housing: I Have Housing Concerned About Future Housing: No Difficulty Paying Gas/Electric Bills: No Difficulty Paying for Meds: No Currently Unemployed: No Education: High School Diploma/GED Difficulty w/ Childcare or Family Care: No Living arrangements: with family Additional living arrangements comments: She lives alone. 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 Spiritual care concerns: No Agree to blood products: Yes <Adrianna Saavedra MD - Last Filed: 05/25/25 08:45> Exam 2 Narrative: GENERAL: well-nourished, in mild acute distress. HEAD: Normocephalic, atraumatic. EYES: Non injected, non icteric ENT: Nares clear, no rhinorrhea or epistaxis. Gross auditory acuity intact. NECK: Supple. No meningismus. CHEST: Speaking in full sentences. No respiratory distress. HEART: Regular rate and rhythm. ABDOMEN: Soft, mildly distended. General tenderness to palpation. Peritoneal dialysis in place. EXTREMITIES: Normal range of motion. No significant lower extremity edema. SKIN: Warm, dry, no rash. NEURO: No focal deficits. Alert and oriented. Answering questions. Following commands. Normal speech without aphasia or dysarthria. PSYCH: Normal mood and affect. <Adrianna Saavedra MD - Last Filed: 05/25/25 08:45> Course Reevaluation(s) Reevaluation #1: I assumed care of this patient at shift change but pending labs and disposition. Re-examined the patient. She states her pain is much improved I discussed her lab works, CT findings. She was started on Bactrim last stay for urinary tract infection. She does feel comfortable going home however she is worried about a pain I will prescribe hydrocodone for pain control recommended her to follow with her primary doctor <Lisandro Fung MD - Last Filed: 05/25/25 11:36> Vital Signs Vital signs: Vital Signs Temperature 36.4 C L 05/25/25 01:40 Pulse Rate 94 05/25/25 01:40 Respiratory Rate 22 H 05/25/25 01:40 Blood Pressure 100/74 05/25/25 01:40 Pulse Oximetry 100 05/25/25 01:40 Oxygen Delivery Room Air 05/25/25 01:40 Temperature 36.4 C 05/25/25 02:49 Pulse Rate 69 05/25/25 09:31 Respiratory Rate 16 05/25/25 09:31 Blood Pressure 70/54 L 05/25/25 09:31 Pulse Oximetry 98 05/25/25 09:31 Oxygen Delivery Room Air 05/25/25 01:40 <Adrianna Saavedra MD - Last Filed: 05/25/25 08:45> Vital Signs Temperature 36.4 C L 05/25/25 01:40 Pulse Rate 94 05/25/25 01:40 Respiratory Rate 22 H 05/25/25 01:40 Blood Pressure 100/74 05/25/25 01:40 Pulse Oximetry 100 05/25/25 01:40 Oxygen Delivery Room Air 05/25/25 01:40 Temperature 36.4 C 05/25/25 02:49 Pulse Rate 69 05/25/25 09:31 Respiratory Rate 16 05/25/25 09:31 Blood Pressure 70/54 L 05/25/25 09:31 Pulse Oximetry 98 05/25/25 09:31 Oxygen Delivery Room Air 05/25/25 01:40 <Lisandro Fung MD - Last Filed: 05/25/25 11:36> MDM - Abdominal Pain MDM Narrative Medical decision making narrative: Patient presents with acute onset left flank pain and left-sided abdominal pain starting at 9:00 a.m. on 05/24/25 and progressing. In the emergency department she is afebrile with vital signs notable for mild tachypnea. No leukocytosis, anemia, thrombocytopenia. Chronic hyponatremia. Labs consistent with her known end-stage renal disease for which she is peritoneal dialysis. BNP is greater than 30,000. History of heart failure. She also has an elevated troponin, this has been present previously. 3 hour troponin and aspirin are ordered in addition to EKG. Patient reports that she does not feel volume overloaded in her abdomen, with her breathing, or in her lower extremities which is often where she will experience it. In fact, she states that based on the timing of when she terminated her peritoneal dialysis, she is actually slightly low in volume. Patient states she filled a prescription for narcotic medication yesterday but none are found in review of home medication list as recently filled nor in review of prescription monitoring program. Informed patient of growing mass on CT. SHe notes that it had been noted before and she needs to follow up on MRI (has to be pacemaker compatible). Patient signed out to [facility] ED Dr pending rest of work up and reassessment to determine admission for acute on chronic issues versus home if pain better controlled given many of her issues are chronic. <Adrianna Saavedra MD - Last Filed: 05/25/25 08:45> Differential Diagnosis Differential diagnosis: Likely abdominal pain, calculus of kidney, constipation, diverticulitis, small bowel obstruction and other (Hepatorenal syndrome, peritonitis; ruptured kidney cyst) <Adrianna Saavedra MD - Last Filed: 05/25/25 08:45> Lab Data Attestation: I reviewed the patient's lab results. <Adrianna Saavedra MD - Last Filed: 05/25/25 08:45> Result diagrams: 05/25/25 05:20 05/25/25 05:20 <Adrianna Saavedra MD - Last Filed: 05/25/25 08:45> Labs: Lab Results 05/25/25 05/25/25 05/25/25 Range/Units 05:20 07:35 08:01 WBC 9.0 (4.5-10.0) K/mm3 RBC 4.37 (4.2-5.4) M/mm3 Hgb 12.9 (12.0-15.0) g/dL Hct 42.2 (37.0-47.0) % MCV 96.6 (80-100) fl MCH 29.5 (26-34) pg MCHC 30.6 L (32-36) g/dl RDW 15.5 H (11.5-14.5) % Plt Count 179 D (150-375) k/mm3 MPV 10.1 (7.4-10.4) fl Immature Gran % (Auto) 0.4 (0-0.5) % Neut % (Auto) 82.1 H (45.5-73.1) % Lymph % (Auto) 8.7 L (18.3-44.2) % [place] % (Auto) 6.2 (2.6-8.5) % Eos % (Auto) 2.3 (0-4.4) % Baso % (Auto) 0.3 (0.2-1.2) % Lymph # (Auto) 0.79 L (0.9-3.2) K/mm3 [place] # (Auto) 0.6 (0.1-0.6) K/mm3 Eos # (Auto) 0.2 (0-0.3) K/mm3 Baso # (Auto) 0.0 (0.0-0.1) K/mm3 Abs Immat Gran (auto) 0.04 H (0.00-0.031) K/mm3 Absolute Neuts (auto) 7.4 H (1.3-6.7) K/mm3 Absolute Nucleated RBC 0.000 (0.0-0.012) K/mm3 Nucleated RBC % 0.0 (0.0-0.2) % Sodium 131 L (137-145) mmol/L Potassium 4.3 (3.4-5.0) mmol/L Chloride 93 L (98-107) mmol/L Carbon Dioxide 24 (22-30) mmol/L Anion Gap 14 H (4-12) mmol/L BUN 57 H (7-17) mg/dL Creatinine 14.32 H (0.7-1.0) mg/dL Estim Creat Clear Calc 4 ml/min Estimated GFR 3 L (59 - ) Glucose 99 (65-110) mg/dL Lactic Acid (0.7-2.0) mmol/L Calcium 9.8 (8.4-10.2) mg/dL Total Bilirubin 0.5 (0.2-1.3) mg/dL AST 19 (14-36) U/L ALT 13 (6-35) U/L Alkaline Phosphatase 83 (38-126) U/L Troponin I 0.075 H* (0.000-0.034) ng/mL NT-Pro-B Natriuret Pep > 08978 H (19.9-100) pg/mL Total Protein 7.4 (6.3-8.2) g/dL Albumin 3.9 (3.5-5.1) g/dL Lipase 33 (23-300) U/L Urine Color Yellow (Yellow) Urine Appearance Turbid H (Clear) Urine pH 6.5 (5.0-9.0) Ur Specific [place] 1.015 (1.001-1.035) Urine Protein 3+ H (Negative) mg/dL Urine Glucose (UA) Negative (Negative) mg/dL Urine Ketones Negative (Negative) mg/dL Ur Blood (Man) 2+ H (Negative) Urine Nitrate Negative (Negative) Urine Bilirubin Negative (Negative) Urine Urobilinogen 0.2 (<2.0) mg/dL Add Ur Microanalysis Reviewed Leukocyte Esterase Rfl 3+ H (Negative) NISHA/UL Urine RBC 3-5 H (0-2) /hpf Urine WBC >100 H (0-3) /hpf Ur Squamous Epith Cells Many H (Few) /hpf Urine Bacteria 4+ H /hpf Urine Casts 3-5 POC Urine HCG, Qual Negative (Negative) 05/25/25 Range/Units 08:19 WBC (4.5-10.0) K/mm3 RBC (4.2-5.4) M/mm3 Hgb (12.0-15.0) g/dL Hct (37.0-47.0) % MCV (80-100) fl MCH (26-34) pg MCHC (32-36) g/dl RDW (11.5-14.5) % Plt Count (150-375) k/mm3 MPV (7.4-10.4) fl Immature Gran % (Auto) (0-0.5) % Neut % (Auto) (45.5-73.1) % Lymph % (Auto) (18.3-44.2) % [place] % (Auto) (2.6-8.5) % Eos % (Auto) (0-4.4) % Baso % (Auto) (0.2-1.2) % Lymph # (Auto) (0.9-3.2) K/mm3 [place] # (Auto) (0.1-0.6) K/mm3 Eos # (Auto) (0-0.3) K/mm3 Baso # (Auto) (0.0-0.1) K/mm3 Abs Immat Gran (auto) (0.00-0.031) K/mm3 Absolute Neuts (auto) (1.3-6.7) K/mm3 Absolute Nucleated RBC (0.0-0.012) K/mm3 Nucleated RBC % (0.0-0.2) % Sodium (137-145) mmol/L Potassium (3.4-5.0) mmol/L Chloride (98-107) mmol/L Carbon Dioxide (22-30) mmol/L Anion Gap (4-12) mmol/L BUN (7-17) mg/dL Creatinine (0.7-1.0) mg/dL Estim Creat Clear Calc ml/min Estimated GFR (59 - ) Glucose (65-110) mg/dL Lactic Acid 0.9 (0.7-2.0) mmol/L Calcium (8.4-10.2) mg/dL Total Bilirubin (0.2-1.3) mg/dL AST (14-36) U/L ALT (6-35) U/L Alkaline Phosphatase (38-126) U/L Troponin I 0.064 H* (0.000-0.034) ng/mL NT-Pro-B Natriuret Pep (19.9-100) pg/mL Total Protein (6.3-8.2) g/dL Albumin (3.5-5.1) g/dL Lipase (23-300) U/L Urine Color (Yellow) Urine Appearance (Clear) Urine pH (5.0-9.0) Ur Specific [place] (1.001-1.035) Urine Protein (Negative) mg/dL Urine Glucose (UA) (Negative) mg/dL Urine Ketones (Negative) mg/dL Ur Blood (Man) (Negative) Urine Nitrate (Negative) Urine Bilirubin (Negative) Urine Urobilinogen (<2.0) mg/dL Add Ur Microanalysis Leukocyte Esterase Rfl (Negative) NISHA/UL Urine RBC (0-2) /hpf Urine WBC (0-3) /hpf Ur Squamous Epith Cells (Few) /hpf Urine Bacteria /hpf Urine Casts POC Urine HCG, Qual (Negative) <Adrianna Saavedra MD - Last Filed: 05/25/25 08:45> Lab Results 05/25/25 05/25/25 05/25/25 Range/Units 05:20 07:35 08:01 WBC 9.0 (4.5-10.0) K/mm3 RBC 4.37 (4.2-5.4) M/mm3 Hgb 12.9 (12.0-15.0) g/dL Hct 42.2 (37.0-47.0) % MCV 96.6 (80-100) fl MCH 29.5 (26-34) pg MCHC 30.6 L (32-36) g/dl RDW 15.5 H (11.5-14.5) % Plt Count 179 D (150-375) k/mm3 MPV 10.1 (7.4-10.4) fl Immature Gran % (Auto) 0.4 (0-0.5) % Neut % (Auto) 82.1 H (45.5-73.1) % Lymph % (Auto) 8.7 L (18.3-44.2) % [place] % (Auto) 6.2 (2.6-8.5) % Eos % (Auto) 2.3 (0-4.4) % Baso % (Auto) 0.3 (0.2-1.2) % Lymph # (Auto) 0.79 L (0.9-3.2) K/mm3 [place] # (Auto) 0.6 (0.1-0.6) K/mm3 Eos # (Auto) 0.2 (0-0.3) K/mm3 Baso # (Auto) 0.0 (0.0-0.1) K/mm3 Abs Immat Gran (auto) 0.04 H (0.00-0.031) K/mm3 Absolute Neuts (auto) 7.4 H (1.3-6.7) K/mm3 Absolute Nucleated RBC 0.000 (0.0-0.012) K/mm3 Nucleated RBC % 0.0 (0.0-0.2) % Sodium 131 L (137-145) mmol/L Potassium 4.3 (3.4-5.0) mmol/L Chloride 93 L (98-107) mmol/L Carbon Dioxide 24 (22-30) mmol/L Anion Gap 14 H (4-12) mmol/L BUN 57 H (7-17) mg/dL Creatinine 14.32 H (0.7-1.0) mg/dL Estim Creat Clear Calc 4 ml/min Estimated GFR 3 L (59 - ) Glucose 99 (65-110) mg/dL Lactic Acid (0.7-2.0) mmol/L Calcium 9.8 (8.4-10.2) mg/dL Total Bilirubin 0.5 (0.2-1.3) mg/dL AST 19 (14-36) U/L ALT 13 (6-35) U/L Alkaline Phosphatase 83 (38-126) U/L Troponin I 0.075 H* (0.000-0.034) ng/mL NT-Pro-B Natriuret Pep > 79997 H (19.9-100) pg/mL Total Protein 7.4 (6.3-8.2) g/dL Albumin 3.9 (3.5-5.1) g/dL Lipase 33 (23-300) U/L Urine Color Yellow (Yellow) Urine Appearance Turbid H (Clear) Urine pH 6.5 (5.0-9.0) Ur Specific [place] 1.015 (1.001-1.035) Urine Protein 3+ H (Negative) mg/dL Urine Glucose (UA) Negative (Negative) mg/dL Urine Ketones Negative (Negative) mg/dL Ur Blood (Man) 2+ H (Negative) Urine Nitrate Negative (Negative) Urine Bilirubin Negative (Negative) Urine Urobilinogen 0.2 (<2.0) mg/dL Add Ur Microanalysis Reviewed Leukocyte Esterase Rfl 3+ H (Negative) NISHA/UL Urine RBC 3-5 H (0-2) /hpf Urine WBC >100 H (0-3) /hpf Ur Squamous Epith Cells Many H (Few) /hpf Urine Bacteria 4+ H /hpf Urine Casts 3-5 POC Urine HCG, Qual Negative (Negative) 05/25/25 Range/Units 08:19 WBC (4.5-10.0) K/mm3 RBC (4.2-5.4) M/mm3 Hgb (12.0-15.0) g/dL Hct (37.0-47.0) % MCV (80-100) fl MCH (26-34) pg MCHC (32-36) g/dl RDW (11.5-14.5) % Plt Count (150-375) k/mm3 MPV (7.4-10.4) fl Immature Gran % (Auto) (0-0.5) % Neut % (Auto) (45.5-73.1) % Lymph % (Auto) (18.3-44.2) % [place] % (Auto) (2.6-8.5) % Eos % (Auto) (0-4.4) % Baso % (Auto) (0.2-1.2) % Lymph # (Auto) (0.9-3.2) K/mm3 [place] # (Auto) (0.1-0.6) K/mm3 Eos # (Auto) (0-0.3) K/mm3 Baso # (Auto) (0.0-0.1) K/mm3 Abs Immat Gran (auto) (0.00-0.031) K/mm3 Absolute Neuts (auto) (1.3-6.7) K/mm3 Absolute Nucleated RBC (0.0-0.012) K/mm3 Nucleated RBC % (0.0-0.2) % Sodium (137-145) mmol/L Potassium (3.4-5.0) mmol/L Chloride (98-107) mmol/L Carbon Dioxide (22-30) mmol/L Anion Gap (4-12) mmol/L BUN (7-17) mg/dL Creatinine (0.7-1.0) mg/dL Estim Creat Clear Calc ml/min Estimated GFR (59 - ) Glucose (65-110) mg/dL Lactic Acid 0.9 (0.7-2.0) mmol/L Calcium (8.4-10.2) mg/dL Total Bilirubin (0.2-1.3) mg/dL AST (14-36) U/L ALT (6-35) U/L Alkaline Phosphatase (38-126) U/L Troponin I 0.064 H* (0.000-0.034) ng/mL NT-Pro-B Natriuret Pep (19.9-100) pg/mL Total Protein (6.3-8.2) g/dL Albumin (3.5-5.1) g/dL Lipase (23-300) U/L Urine Color (Yellow) Urine Appearance (Clear) Urine pH (5.0-9.0) Ur Specific [place] (1.001-1.035) Urine Protein (Negative) mg/dL Urine Glucose (UA) (Negative) mg/dL Urine Ketones (Negative) mg/dL Ur Blood (Man) (Negative) Urine Nitrate (Negative) Urine Bilirubin (Negative) Urine Urobilinogen (<2.0) mg/dL Add Ur Microanalysis Leukocyte Esterase Rfl (Negative) NISHA/UL Urine RBC (0-2) /hpf Urine WBC (0-3) /hpf Ur Squamous Epith Cells (Few) /hpf Urine Bacteria /hpf Urine Casts POC Urine HCG, Qual (Negative) <Lisandro Fung MD - Last Filed: 05/25/25 11:36> Imaging Data Attestation: I personally reviewed and interpreted this imaging study as follows: < Adrianna Saavedra MD - Last Filed: 05/25/25 08:45> My impression: Pacemaker, aortic valve mesh in place on my independent interpretation of chest x-ray <Adrianna Saavedra MD - Last Filed: 05/25/25 08:45> Radiologist's impression: ITS Impressions Abdomen/Pelvis CT 05/25/25 06:31 Impression: 4.1 x 3.2 cm exophytic mass at the anterior aspect of the upper left renal pole is increased in size from prior exam, and could reflect a neoplastic lesion. Please see details above. Pre and postcontrast MR recommended to further assess. Underlying autosomal dominant polycystic kidney disease otherwise similar appearance to prior exam. Polycystic liver disease is also similar to prior exam. Small to moderate left pleural effusion with mild bibasilar pulmonary edema. Chest X-Ray 05/25/25 08:13 Impression: 1: Cardiomegaly with pulmonary edema. 2: Small left pleural effusion. <Adrianna Saavedra MD - Last Filed: 05/25/25 08:45> ITS Impressions Abdomen/Pelvis CT 05/25/25 06:31 Impression: 4.1 x 3.2 cm exophytic mass at the anterior aspect of the upper left renal pole is increased in size from prior exam, and could reflect a neoplastic lesion. Please see details above. Pre and postcontrast MR recommended to further assess. Underlying autosomal dominant polycystic kidney disease otherwise similar appearance to prior exam. Polycystic liver disease is also similar to prior exam. Small to moderate left pleural effusion with mild bibasilar pulmonary edema. Chest X-Ray 05/25/25 08:13 Impression: 1: Cardiomegaly with pulmonary edema. 2: Small left pleural effusion. <Lisandro Fung MD - Last Filed: 05/25/25 11:36> ECG Data EKG #1: Attestation: I personally reviewed and interpreted this ECG as follows: < Adrianna Saavedra MD - Last Filed: 05/25/25 08:45> ECG completion date: 05/25/25 <Adrianna Saavedra MD - Last Filed: 05/25/25 08:45> ECG completion time: 05:27 <Adrianna Saavedra MD - Last Filed: 05/25/25 08:45> Prior ECG tracings: available for review (04/22/25 this was in atrial fibrillation at a rate of 112 beats per minute. There were similarly seen ST depressions in V5 and V6 with T wave abnormalties in these laterals) <Adrianna Saavedra MD - Last Filed: 05/25/25 08:45> Interpretation: Pacemaker at a rate of 69 beats per minute. WI interval 151. QRS 104. QT/QTC 405/436. Good R-wave progression across the precordial leads. Left axis deviation (QRS is positive with dominant R wave in Lead I; QRS is negative with dominant S wave in leads III, and aVF and trending in II). ST depression rates to and AVF but to a lesser degree in 3. Also ST depressions in V4 V5 V6. There also T-wave inversions verses biphasic T-waves in these lateral precordial leads as well. <Adrianna Saavedra MD - Last Filed: 05/25/25 08:45> EKG #2: Attestation: I personally reviewed and interpreted this ECG as follows: < Adrianna Saavedra MD - Last Filed: 05/25/25 08:45> ECG completion date: 05/25/25 <Adrianna Saavedra MD - Last Filed: 05/25/25 08:45> ECG completion time: 08:02 <Adrianna Savaedra MD - Last Filed: 05/25/25 08:45> Interpretation: Normal sinus rhythm with what sinus arrhythmia based on variable R to R interval. WI interval 119. QRS 113. QT/QTC 431/464. <Adrianna Saavedra MD - Last Filed: 05/25/25 08:45> Discharge Plan Discharge Clinical Impression: Chronic hyponatremia, ESRD on peritoneal dialysis, Left kidney mass, Autosomal dominant adult polycystic kidney disease, PLD (polycystic liver disease), Acute left flank pain, Left sided abdominal pain, Pleural effusion, left, Non-ST elevation [place] (NSTEMI), Cardiomegaly Acute on chronic heart failure Qualifiers: Heart failure type: unspecified Qualified Code(s): I50.9 - Heart failure, unspecified Pulmonary edema Qualifiers: Chronicity: chronic Qualified Code(s): J81.1 - Chronic pulmonary edema <Adrianna Saavedra MD - Last Filed: 05/25/25 08:45> Patient Disposition: Home <Adrianna Saavedra MD - Last Filed: 05/25/25 08:45> Condition: Stable <Adrianna Saavedra MD - Last Filed: 05/25/25 08:45> Instructions: Urinary Tract Infection in Women (DC), Abdominal Pain (ED) <Adrianna Saavedra MD - Last Filed: 05/25/25 08:45> Additional Instructions: 4.1 x 3.2 cm exophytic mass at the anterior aspect of the upper left renal pole is increased in size from prior exam, and could reflect a neoplastic lesion. Please see details above. Pre and postcontrast MR recommended to further assess. Your PCP can help arrange for this to be done at an MRI (pacemaker compliant) location. <Adrianna Saavedra MD - Last Filed: 05/25/25 08:45> Patient Language: Spanish <Adrianna Saavedra MD - Last Filed: 05/25/25 08:45> Prescriptions: New hydrocodone-acetaminophen 5-325 mg tablet 1 tablet PO Q8H PRN (Reason: pain) Qty: 14 0RF No Action clopidogrel [Plavix] 75 mg tablet 75 mg PO DAILY gentamicin 0.1 % cream 1 applic topical DAILY Rx Instructions: Apply around PD Site loratadine [Claritin] 10 mg tablet 10 mg PO DAILY PRN (Reason: Allergy Symptoms) multivitamin Tablet 1 tablet PO DAILY nitroglycerin 0.4 mg tablet, sublingual 0.4 mg sublingual Q5M PRN (Reason: Pain) Rx Instructions: Take for chest pain. Do not exceed 3 doses calcitriol 0.25 mcg capsule 0.25 mcg PO DAILY Repatha SureClick 140 mg/mL pen injector 140 mg subcut ONCE ferric citrate [Auryxia] 210 mg iron tablet 210 mg PO BID Patient Comments: Take any time patient eats. Min take 2 per day. Rx Instructions: administer with a meal triamcinolone acetonide 0.5 % ointment 1 applic topical DAILY Qty: 15 0RF gabapentin 100 mg capsule 100 mg PO WEEKLY Rx Instructions: at bedtime ergocalciferol (vitamin D2) 25,000 unit capsule See Rx Instructions .ROUTE .COMPLEX Rx Instructions: 25,000 unit orally EOWeek acetaminophen 325 mg Tablet 650 mg PO Q4H PRN (Reason: Mild Pain (1-3) Or Fever) Qty: 60 0RF Eliquis 2.5 mg Tablet 2.5 mg PO Q12HR Qty: 60 0RF levothyroxine 137 mcg tablet 137 mcg PO DAILY Qty: 30 5RF albuterol sulfate [ProAir HFA] 90 mcg/actuation HFA aerosol inhaler 2 puff inhalation Q4-6H PRN (Reason: shortness of breath or wheezing) Qty: 18 5RF <Adrianna Saavedra MD - Last Filed: 05/25/25 08:45> Follow-up/Referrals: Pal Downey, [Primary Care Provider] - <Adrianna Saavedra MD - Last Filed: 05/25/25 08:45> Time of Disposition: 11:35 <Adrianna Saavedra MD - Last Filed: 05/25/25 08:45> 11:35 <Lisandro Fung MD - Last Filed: 05/25/25 11:36>
[2025-05-25 05:55] LABS: Alanine Aminotransferase 13 U/L (6-35); Albumin Level 3.9 g/dL (3.5-5.1); Alkaline Phosphatase 83 U/L (38-126); Anion Gap 14 mmol/L (4-12); Aspartate Amino Transferase 19 U/L (14-36); Bilirubin,Total 0.5 mg/dL (0.2-1.3); Blood Urea Nitrogen 57 mg/dL (7-17); Calcium 9.8 mg/dL (8.4-10.2); Carbon Dioxide 24 mmol/L (22-30); Chloride 93 mmol/L (98-107); Glucose 99 mg/dL (65-110); Lipase 33 U/L (23-300); Potassium 4.3 mmol/L (3.4-5.0); Sodium 131 mmol/L (137-145); Total Protein 7.4 g/dL (6.3-8.2)
[2025-05-25] MEDS: SODIUM CHLORIDE 0.9% IV 500 ML 999 ML IV CONT (06:06)
[2025-05-25 06:07] LABS: Estimated CRCL calculation 4 ml/min; Estimated Glomerular Filt Rate 3
[2025-05-25] MEDS: HYDROmorphone HCL INJ (*CRX) 2 MG/ML VIAL 0.5 MG IV PUSH (06:09)
--- NOTE | 2025-05-25 06:14 | PC.NURSE ---
pt taken to CT on stretcher
[2025-05-25 07:36] LABS: BEDSIDEPREGUCG Negative (Negative)
[2025-05-25 07:41] LABS: NT Pro B Type Natriuretic Pept > 30000 pg/mL (19.9-100); Troponin I 0.075 ng/mL (0.000-0.034)
--- NOTE | 2025-05-25 07:49 | ECG_ITS ---
Test Date: 2025-05-25 08:02:17 Measurements Intervals [place] Rate: 69 P: 22 WV: 119 QRS: -41 QRSD: 113 T: 128 QT: 431 QTc: 464 Interpretive Statements ELECTRONIC ATRIAL PACEMAKER WITH INHIBITION LEFT AXIS DEVIATION INTRAVENTRICULAR CONDUCTION DELAY LEFT VENTRICULAR HYPERTROPHY AND ST-T CHANGE CANNOT R/O SEPTAL INFARCT, AGE INDETERMINATE BORDERLINE ST-T WAVE ABNORMALITY- ANTEROLATERAL LEADS BASELINE ARTIFACT- I, II, III, AVL, V4-V6 ABNORMAL ECG Compared to ECG 05/25/2025 05:27:08 POSSIBLE ISCHEMIA NO LONGER PRESENT Electronically Signed On 05-25-2025 08:37:52 CDT by Rfaael Calzada D.O.
[2025-05-25] MEDS: ASPIRIN 81 MG CHEWABLE TABLET 324 MG PO (07:55)
[2025-05-25] MEDS: fentaNYL CITRATE INJ (*CRX) 100 MCG/2 ML VIAL 12.5 MCG IV PUSH (08:14)
[2025-05-25 08:50] LABS: Add Urine Microscopic? YES; Appearance Urine Turbid (Clear); Glucose Urine UA Negative (Negative); Leukocyte Esterase Ur 3+ LEU/UL (Negative); Need Manual Microscopic Reviewed; Nitrate Urine Negative (Negative); Specific Grav Ur 1.015 (1.001-1.035)
[2025-05-25 09:04] LABS: Troponin I 0.064 ng/mL (0.000-0.034)
== END 2025-05-25 11:48 | disposition home or self-care (01) ==
PROVIDERS: Emergency Provider Student in an Organized Health Care Education/Training Program; PCP Internal Medicine
DX: N28.89 Other specified disorders of kidney and ureter (principal); J90 Pleural effusion, not elsewhere classified; I21.4 Non-ST elevation (NSTEMI) myocardial infarction; R10.9 Unspecified abdominal pain; N18.6 End stage renal disease; Z99.2 Dependence on renal dialysis; E87.1 Hypo-osmolality and hyponatremia; Q61.2 Polycystic kidney, adult type; Q44.6 Cystic disease of liver; I51.7 Cardiomegaly; I48.0 Paroxysmal atrial fibrillation; I73.00 Raynaud's syndrome without gangrene; I25.5 Ischemic cardiomyopathy; I25.10 Atherosclerotic heart disease of native coronary artery without angina pectoris; I25.2 Old myocardial infarction; I50.9 Heart failure, unspecified; I27.20 Pulmonary hypertension, unspecified; Q23.81 Bicuspid aortic valve; I35.0 Nonrheumatic aortic (valve) stenosis; E89.0 Postprocedural hypothyroidism; J98.4 Other disorders of lung; J44.9 Chronic obstructive pulmonary disease, unspecified; Z95.5 Presence of coronary angioplasty implant and graft; Z95.0 Presence of cardiac pacemaker; Z95.1 Presence of aortocoronary bypass graft; Z95.2 Presence of prosthetic heart valve; Z86.16 Personal history of COVID-19; Z86.0101 Personal history of adenomatous and serrated colon polyps; Z92.3 Personal history of irradiation; Z92.21 Personal history of antineoplastic chemotherapy; Z87.891 Personal history of nicotine dependence; Z90.710 Acquired absence of both cervix and uterus; Z79.01 Long term (current) use of anticoagulants; I45.9 Conduction disorder, unspecified; J81.1 Chronic pulmonary edema
CPT/HCPCS: 36415; 71045; 74177; 80053; 81001; 81025; 83605; 83690; 83880; 84484; 85025; 87040; 93005; 96361; 96374; 96375; 99284; A9270; J1171; J3010; J7040; Q9967